=== PATIENT | female | born 1950 | race Caucasian/White ===

== ENCOUNTER 2018-01-14 05:15 | Emergency (ER) | payer MEDICARE, SELFPAY ==
[2018-01-14 05:16] VITALS: BP 181/78; PULSE 78; RESP 18; TEMP 36.6; O2SAT 100; BMI 39.3
--- NOTE | 2018-01-14 05:26 | CT_ITS ---
STUDY: CT SOFT TISSUE NECK WITH CONTRAST REASON FOR EXAM: Female, 67 years old. Throat pain with cough. RADIATION DOSAGE (If Supplied By Facility): CTDIvol = ( 19.90 ) mGy, DLP = ( 561.56 ) mGycm TECHNIQUE: The patient was scanned in a multi-detector CT scanner. High resolution transaxial imaging was performed following intravenous administration of 75 ml of Isovue 370 contrast material. Sagittal and coronal images were reconstructed. Individualized dose optimization techniques were used for this CT. COMPARISON: None. FINDINGS: Normal bilateral parotid glands. Normal bilateral site planner spaces. Normal bilateral parapharyngeal spaces. Normal bilateral carotid spaces. Normal bilateral sublingual and submandibular glands and spaces. Normal visualized nasopharynx. Normal retropharyngeal space. Normal perivertebral space. Normal visualized bilateral faucial tonsils. There is again beam hardening and streak artifact arising from patient's dental amalgam obscuring the anatomy of the oral cavity The visualized cervical lymph nodes (levels I-) are within normal size limits, and maintain normal morphology. There is no demonstrated solid or cystic mass lesion. There is no abnormal contrast enhancement. Normal epiglottis, bilateral vallecula and hypopharynx. The pre-epiglottic and paraglottic adipose spaces are normal. Normal visualized bilateral piriform sinuses, aryepiglottic folds, vocal cords, and arytenoid-cricoid articulations. Normal subglottic trachea. Patient appears of had a thyroidectomy. Surgical clips are visible in the previous location of the thyroid. There is heterogeneous groundglass attenuation in the lung apices possibly representing mild pulmonary congestion. Appears to be a small amount of fluid in the sphenoid sinuses. Normal visualized cervical spine. CT/Soft Tissue Neck WITH Contrast IMPRESSION: 1. Status post thyroidectomy. 2. Possible acute sphenoid sinus disease. 3. No CT evidence for abscess. Electronically Signed: Angela Yuen MD at 6:41 EDT , Service support ,
[2018-01-14] MEDS: 0.9% Normal Saline 1,000 ML 999 ML IV (05:36)
[2018-01-14 05:49] LABS: Erythrocyte Sedimentation Rate 9 mm/hr (0-30)
[2018-01-14 05:51] LABS: Absolute Lymphocyte Count 2.42 X10^3/ul (0.83-4.51); Absolute Neutrophil Count 5.3 X10^3/uL (2.0-7.7); Basophil# 0.04 X10^3/uL; Basophil% 0.5 % (0-1); Eosinophils% 4.6 % (0-5); Hematocrit 37.9 % (37-47); Hemoglobin 12.2 g/dl (12.0-15.0); Lymphocyte # 2.42 X10^3/ul (4.0); Lymphocyte % 27.6 % (19-41); Mean Corp Hgb Conc 32.2 g/gl (32-36); Mean Corpuscular Hgb 27.6 pg (27.0-32.0); Mean Corpuscular Volume 85.7 fL (81-99); Mean Platelet Vol. 9.3 fl (6.2-12.0); Monocyte% 6.8 % (0-10); Neutrophil % 60.3 % (47-70); Platelet Count 338 K/mm3 (150-450); RBC Distribution Width CV 14.7 % (11.6-14.6); RBC Distribution Width SD 46.2 fl (35.1-43.9); Red Blood Count 4.42 M/mm3 (4.2-5.4); White Blood Count 8.8 K/mm3 (4.4-11.0)
[2018-01-14 05:52] LABS: POSITIVE COUNT NO; POSITIVE DIFFERENTIAL NO; POSITIVE MORPHOLOGY NO
[2018-01-14 06:07] LABS: Anion Gap 9 (5-15); BUN 13 mg/dL (7-18); BUN/Creat Ratio 14.3 RATIO (10-20); Calcium,Total 8.9 mg/dL (8.5-10.1); Chloride 106 mmol/L (98-107); Creatinine, Serum 0.91 mg/dL (0.55-1.02); EST Glomerular Filtration Rate 65 mL/min (>60); Est Glom Filt Rate - Afr Amer 79 mL/min (>60); Estimated Creatinine Clearance 41.91 ml/min; Glucose 119 mg/dL (74-106); Potassium 3.7 mmol/L (3.5-5.1); Sodium Level 142 mmol/L (136-145)
--- NOTE | 2018-01-14 06:47 | ED.VISSUMM ---
- ER Visit Summary Date of Service: 01/14/18 Chief Complaint: [] Difficulty swallowing History of Present Illness: The patient is a 67 F [] complaining of difficulty swallowing and one episode of hemoptysis. Patient reports previous history of immunizations as a child. Denies chest pain or shortness of breath. Reports mild difficulty with swallowing fluids. She reports the discomfort is deeper down the throat. No other complaints at this time. Physical Examination: [] Afebrile, vital signs stable. 67-year-old female in no acute distress. HEENT reveals moist mucous membranes without signs of obvious oropharyngeal erythema or exudate. Cardiovascular exam is regular rate and rhythm. Lungs clear to auscultation. Abdomen is soft and nontender. Test Results: [] CT scan of the neck with IV contrast/soft tissue was negative. Emergency Department Course and Treatment: [] Patient's initial presentation was concerning for epiglottitis. This was ruled out to be a CT scan of the soft tissue neck with IV contrast. Patient was given intravenous fluids and Decadron. On serial exam she had improvement of symptoms and was amenable to discharge and close follow-up. Treatment Plan: [] Follow-up with PCP. Disposition: [] Discharge, stable. Impression: [] Pharyngitis This note was generated with [employer] dictation software. It may contain incorrect words, spelling, and punctuation that were not noted in review of the chart prior to signing ED Disposition - Plan for ED Patient: Chief Complaint: Sore Throat Referrals: Kvng Fung MD [Primary Care Provider] -
--- NOTE | 2018-01-14 06:50 | ED.DEP ---
ED Disposition - Plan for ED Patient: Disposition: Home or Assisted Living Chief Complaint: Sore Throat Instructions: ED Pharyngitis Viral Referrals: Kvng Fung MD [Primary Care Provider] -
[2018-01-14 07:01] VITALS: BP 143/66; PULSE 69; RESP 16; O2SAT 98
== END 2018-01-14 07:02 | disposition home or self-care (01) ==
PROVIDERS: Emergency Provider Emergency Medicine; Family Provider Family Medicine; PCP Family Medicine
DX: J02.9 Acute pharyngitis, unspecified (principal)
CPT/HCPCS: 70491; 80048; 85025; 85652; 99285; J7030; Q9967; A4216

== ENCOUNTER → 2018-03-19 07:29 | Outpatient (CLI) | payer MEDICARE, SELFPAY ==
[2018-03-19 10:44] LABS: Microalbumin,Random Urine 11.5 mg/L (NO RANGE EST.); Microalbumin:Creatinine Ratio 7.1 mg/g CRE (<30 mg/g CRE)
[2018-03-19 10:50] LABS: AST(SGOT) 24 U/L (15-37); Alanine Aminotransfer ALT/SGPT 36 U/L (13-56); Albumin, Serum 3.6 g/dL (3.2-5.0); Alkaline Phosphatase 103 U/L (45-117); Anion Gap 9 (5-15); BUN 13 mg/dL (7-18); Bilirubin, Direct 0.11 mg/dL (0.00-0.30); Calcium,Total 8.5 mg/dL (8.5-10.1); Chloride 101 mmol/L (98-107); Cholesterol 165 mg/dL (200); Creatinine, Serum 0.93 mg/dL (0.55-1.02); EST Glomerular Filtration Rate 63 mL/min (>60); Est Glom Filt Rate - Afr Amer 77 mL/min (>60); Free T3 2.3 pg/mL (2.18-3.98); Globulin 4.1 g/dL (2.2-4.2); Glucose 128 mg/dL (74-106); High Density Lipoprotein 46 mg/dL; Potassium 3.8 mmol/L (3.5-5.1); Protein, Total 7.7 g/dL (6.4-8.2); Sodium Level 136 mmol/L (136-145); T4 Total, Thyroxin 12.7 ug/dL (4.8-13.9); Thyroid Stim Hormone (TSH) 0.98 uIU/mL (0.358-3.74); Triglycerides 97 mg/dL; Very Low Density Lipoprotein 19 mg/dL (5-40)
== END ==
PROVIDERS: Family Provider Family Medicine; PCP Family Medicine; Visit Provider Family Medicine
DX: E03.9 Hypothyroidism, unspecified (principal); E11.9 Type 2 diabetes mellitus without complications
CPT/HCPCS: 36415; 80048; 80061; 80076; 82043; 82570; 84436; 84443; 84481

== ENCOUNTER 2018-05-05 10:13 | Emergency (ER) | payer MEDICARE, SELFPAY ==
[2018-05-05 10:14] VITALS: BP 155/90; PULSE 74; PULSE 78; RESP 26; RESP 30; TEMP 36.4; O2SAT 100; BMI 38.0
--- NOTE | 2018-05-05 10:35 | ED.DCSUM_ITS ---
- ER Visit Summary Date of Service: 05/05/18 Chief Complaint: Abdominal pain and rectal bleeding History of Present Illness: The patient is a 67 F who presents with abdominal pain and rectal bleeding that began last night but became worse today. Patient states pain is over her lower abdomen and radiates into her back. Patient admits to some nausea but denies any vomiting. Patient states she was having large amount of bright red rectal bleeding last night. Patient states that it is starting to slow down but she is still having bright red rectal bleeding today. Patient denies any urinary complaints. Patient denies any fevers but admits to subjective chills last night. Patient also admits to some shortness of breath. Physical Examination: Vital signs are stable. Patient is afebrile. Patient is in no acute distress. Oral mucosa is pink and moist. Neck is supple. There is no JVD noted. Heart was regular rate and rhythm. Lungs are clear and equal bilaterally. There is good respiratory effort noted. Abdomen is soft. There is some left lower quadrant tenderness. There is no rebound or guarding noted. There are no masses palpated. Cranial nerves II through XII are intact. There are no focal motor or sensory deficits noted. The remaining physical exam is within normal limits. Test Results: CBC showed a stable hemoglobin of 12.4. Comprehensive metabolic profile was essentially within normal limits. CT scan of the abdomen and pelvis shows evidence of colitis. There is no abscess or perforation. There is no other acute intra-abdominal abnormality. Emergency Department Course and Treatment: Orthostatic vital signs were obtained and were within normal limits. Patient was given IV fluids, morphine, and Zofran. Patient felt better on reevaluation. Patient was given a prescription for Augmentin. Patient was instructed to follow-up with her primary care physician in 2-5 days. Patient and her understood and were agreeable with the plan. All questions were answered. Disposition: Discharged home Impression: Colitis This note was generated with [employer] dictation software. It may contain incorrect words, spelling, and punctuation that were not noted in review of the chart prior to signing ED Disposition - Plan for ED Patient: Disposition: Home or Assisted Living Chief Complaint: GI Bleed Diagnosis: Colitis Instructions: ED Gastroenteritis Bacterial Prescriptions: Amox/Clavulanate Tablet [Augmentin Tablet] 875 mg PO Q12H #20 tab Referrals: Kvng Fung MD [Primary Care Provider] -
[2018-05-05 10:46] VITALS: BP 150/80; BP 160/78; BP 167/71; PULSE 61; PULSE 75; PULSE 80
[2018-05-05 10:51] LABS: Absolute Lymphocyte Count 1.83 X10^3/ul (0.83-4.51); Absolute Neutrophil Count 13.1 X10^3/uL (2.0-7.7); Basophil# 0.04 X10^3/uL; Basophil% 0.2 % (0-1); Eosinophils% 2.4 % (0-5); Hematocrit 38.9 % (37-47); Hemoglobin 12.4 g/dl (12.0-15.0); Lymphocyte # 1.83 X10^3/ul (4.0); Lymphocyte % 11.2 % (19-41); Mean Corp Hgb Conc 31.9 g/gl (32-36); Mean Corpuscular Hgb 26.8 pg (27.0-32.0); Mean Platelet Vol. 9.8 fl (6.2-12.0); Monocyte# 0.93 X10^3/uL; Monocyte% 5.7 % (0-10); Neutrophil # 13.11 X10^3/uL (2.7-7.7); Neutrophil % 80.3 % (47-70); Platelet Count 361 K/mm3 (150-450); RBC Distribution Width SD 45.9 fl (35.1-43.9); Red Blood Count 4.63 M/mm3 (4.2-5.4); White Blood Count 16.3 K/mm3 (4.4-11.0)
[2018-05-05 10:52] LABS: POSITIVE COUNT NO; POSITIVE DIFFERENTIAL NO; POSITIVE MORPHOLOGY NO
[2018-05-05] MEDS: Ondansetron 4 MG/2 ML Vial IV (10:53)
[2018-05-05] MEDS: Morphine 4 MG/ML Syringe IV (10:53)
[2018-05-05] MEDS: 0.9% Normal Saline 1,000 ML 1000 ML IV (10:53)
[2018-05-05 10:55] LABS: Prothrombin Time (Protime)PT. 12.8 SECONDS (11.7-14.9)
[2018-05-05 10:56] LABS: Partial Thromboplast Time 24.6 Seconds (24.1-36.2)
[2018-05-05 11:05] LABS: ALB/GLOB Ratio 0.9 RATIO (0.9-2.4); AST(SGOT) 26 U/L (15-37); Alanine Aminotransfer ALT/SGPT 43 U/L (13-56); Albumin, Serum 3.5 g/dL (3.2-5.0); Alkaline Phosphatase 101 U/L (45-117); Anion Gap 11 (5-15); BUN 18 mg/dL (7-18); BUN/Creat Ratio 16.4 RATIO (10-20); Chloride 107 mmol/L (98-107); EST Glomerular Filtration Rate 52 mL/min (>60); Est Glom Filt Rate - Afr Amer 63 mL/min (>60); Estimated Creatinine Clearance 36.42 ml/min; Globulin 4.1 g/dL (2.2-4.2); Glucose 181 mg/dL (74-106); Lipase 83 U/L (73-393); Potassium 3.7 mmol/L (3.5-5.1); Protein, Total 7.6 g/dL (6.4-8.2); Sodium Level 140 mmol/L (136-145)
--- NOTE | 2018-05-05 11:06 | CT_ITS ---
STUDY: CT ABDOMEN AND PELVIS WITHOUT CONTRAST REASON FOR EXAM: Female, 67 years old. Lower abdominal pain. Bright red blood in the stool. RADIATION DOSAGE (If Supplied By Facility): CTDIvol = ( 23.44 ) mGy, DLP = ( 1089.37 ) mGycm TECHNIQUE: Transaxial images were obtained from the dome of the diaphragm to the symphysis pubis without oral contrast, and without intravenous contrast. Sagittal and coronal images were reconstructed. Individualized dose optimization techniques were used for this CT. COMPARISON: None. FINDINGS: The visualized lung bases are unremarkable. The visualized portions of the heart are within normal limits. There is hepatomegaly with diffuse hepatic enlargement. There is decreased attenuation of the liver consistent with steatosis. There are surgical clips in the gallbladder fossa consistent with a prior cholecystectomy. Normal spleen. Normal pancreas. Normal bilateral adrenal glands. Normal right kidney. Normal left kidney. No stones or hydronephrosis. There is a large hiatal hernia composed mostly of the fundus of the stomach. Normal small intestine. Wall thickening of the descending colon with adjacent edema, series 2 images 50/167 through 80/167. There are few diverticula in the sigmoid region. There are surgical clips in the region of the appendix consistent with a prior appendectomy. There is diffuse atherosclerotic calcification of the abdominal aorta, without a demonstrated aneurysm. Normal inferior vena cava. Normal retroperitoneum. Normal urinary bladder. There is absence of the uterus consistent with a prior hysterectomy. There is no free fluid in the abdomen or pelvis. Normal abdominal wall. There are degenerative changes of the spine. CT/Abdomen/Pelvis without Cont IMPRESSION: Colitis on the left could be infectious or inflammatory. No obstruction. Large hiatal hernia. Liver is enlarged with diffuse fatty infiltration. Electronically Signed: Evaristo Rivera MD at 11:40 EDT , Service support ,
[2018-05-05 12:24] VITALS: BP 152/80; PULSE 62; RESP 14; O2SAT 98
== END 2018-05-05 12:28 | disposition home or self-care (01) ==
PROVIDERS: Emergency Provider Emergency Medicine; Family Provider Family Medicine; PCP Family Medicine
DX: K52.9 Noninfective gastroenteritis and colitis, unspecified (principal); E11.9 Type 2 diabetes mellitus without complications; I10 Essential (primary) hypertension; E78.00 Pure hypercholesterolemia, unspecified; E03.9 Hypothyroidism, unspecified
CPT/HCPCS: 74176; 80053; 82274; 83690; 85025; 85610; 85730; 99285; J7030; A4216; J2405

== ENCOUNTER → 2018-09-30 07:33 | Outpatient (CLI) | payer MEDICARE, SELFPAY ==
[2018-09-30 10:40] LABS: Microalbumin,Random Urine 18.7 mg/L (NO RANGE EST.); Microalbumin:Creatinine Ratio 7.5 mg/g CRE (<30 mg/g CRE)
[2018-09-30 10:42] LABS: AST(SGOT) 31 U/L (15-37); Alanine Aminotransfer ALT/SGPT 47 U/L (13-56); Albumin, Serum 3.5 g/dL (3.2-5.0); Alkaline Phosphatase 97 U/L (45-117); Anion Gap 10 (5-15); BUN 13 mg/dL (7-18); BUN/Creat Ratio 13.4 RATIO (10-20); Bilirubin, Direct 0.11 mg/dL (0.00-0.30); Calcium,Total 8.8 mg/dL (8.5-10.1); Chloride 106 mmol/L (98-107); Cholesterol 162 mg/dL (200); Creatinine, Serum 0.97 mg/dL (0.55-1.02); EST Glomerular Filtration Rate 60 mL/min (>60); Est Glom Filt Rate - Afr Amer 73 mL/min (>60); Globulin 3.9 g/dL (2.2-4.2); Glucose 127 mg/dL (74-106); High Density Lipoprotein 42 mg/dL; Potassium 4.1 mmol/L (3.5-5.1); Protein, Total 7.4 g/dL (6.4-8.2); Sodium Level 142 mmol/L (136-145); Thyroid Stim Hormone (TSH) 0.35 uIU/mL (0.358-3.74); Triglycerides 132 mg/dL; Very Low Density Lipoprotein 26 mg/dL (5-40)
== END ==
PROVIDERS: Family Provider Family Medicine; PCP Family Medicine; Referring Provider Family Medicine; Visit Provider Family Medicine
DX: E03.9 Hypothyroidism, unspecified (principal); E11.9 Type 2 diabetes mellitus without complications
CPT/HCPCS: 36415; 80048; 80061; 80076; 82043; 82570; 84443

== ENCOUNTER → 2019-01-10 08:03 | Outpatient (CLI) | payer MEDICARE, SELFPAY ==
[2019-01-10 10:34] LABS: Anion Gap 4 (5-15); BUN 13 mg/dL (7-18); BUN/Creat Ratio 13.8 RATIO (10-20); Calcium,Total 9.1 mg/dL (8.5-10.1); Chloride 106 mmol/L (98-107); Cholesterol 154 mg/dL (200); Creatinine, Serum 0.94 mg/dL (0.55-1.02); EST Glomerular Filtration Rate 62 mL/min (>60); Est Glom Filt Rate - Afr Amer 75 mL/min (>60); Glucose 129 mg/dL (74-106); High Density Lipoprotein 43 mg/dL; Potassium 4.4 mmol/L (3.5-5.1); Sodium Level 140 mmol/L (136-145); Thyroid Stim Hormone (TSH) 1.59 uIU/mL (0.358-3.74); Triglycerides 175 mg/dL; Very Low Density Lipoprotein 35 mg/dL (5-40)
== END ==
PROVIDERS: Family Provider Family Medicine; PCP Family Medicine; Referring Provider Family Medicine; Visit Provider Family Medicine
DX: E11.9 Type 2 diabetes mellitus without complications (principal); E03.9 Hypothyroidism, unspecified
CPT/HCPCS: 36415; 80048; 80061; 84443

== ENCOUNTER 2019-03-10 06:37 | Day surgery (SDC) | payer MEDICARE, SELFPAY ==
[2019-03-10 06:51] VITALS: BP 154/65; PULSE 68; RESP 16; TEMP 36.6; O2SAT 100; BMI 37.2
[2019-03-10 07:11] LABS: Bedside Glucose 123 mg/dL (70-110)
--- NOTE | 2019-03-10 08:10 | RAD_ITS ---
STUDY: X-RAY - LEFT KNEE REASON FOR EXAM: Female, 68 years old. Left knee procedure TECHNIQUE: Intraprocedural fluoroscopy COMPARISON: None. FINDINGS: Intraprocedural fluoroscopy was performed. There is total knee arthroplasty. There is placement of RFA needles along the medial and lateral femoral epicondyles and proximal tibial diametaphysis. RAD/Knee 4 or More Views IMPRESSION: Intraoperative fluoroscopy, refer to operative report for full details.. Electronically Signed: Trina Gaines, at 17:44 EDT Tel , Service support ,
[2019-03-10] MEDS: Bupivacaine 0.25% 30 ML Vial (08:21)
[2019-03-10] MEDS: MethylPREDNISolone Acetate 80 MG/ML Vial (08:21)
[2019-03-10 08:40] VITALS: BP 150/80; BP 154/65; PULSE 73; RESP 16; TEMP 36.3; O2SAT 100
[2019-03-10 08:45] VITALS: BP 154/65; BP 162/82; PULSE 73; RESP 18; O2SAT 100
[2019-03-10 08:50] VITALS: BP 154/65; BP 165/86; PULSE 69; RESP 18; O2SAT 100
[2019-03-10 08:57] VITALS: BP 154/65; BP 164/88; PULSE 66; RESP 18; TEMP 36.4; O2SAT 100
--- NOTE | 2019-03-10 12:58 | PCM.OPRPT ---
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 Report of Operation Date of Procedure: 03/10/19 Pre-Operative Diagnosis: Chronic postoperative left knee pain Post-Operative Diagnosis: Chronic postoperative left knee pain Surgery/Procedure Performed:: Left knee radiofrequency ablation of superior medial/inferior medial/superior lateral genicular nerve under fluoroscopic guidance Description of Surgical Findings:: PROCEDURE: Left knee radiofrequency ablation of superior medial/inferior medial/superior lateral genicular nerve under fluoroscopic guidance PREOPERATIVE DIAGNOSES: Chronic postoperative left knee pain status post total knee arthroplasty POSTOPERATIVE DIAGNOSES: Tonic postoperative left knee pain status post total knee arthroplasty ANESTHESIA: MAC COMPLICATIONS: None BLOOD LOSS: Minimal PROCEDURE IN DETAIL: History and physical today was reviewed. Risks and benefits of procedure explained. The patient understood, agreed to the procedure and informed consent was obtained. IV inserted per routine protocol. The patient was taken to the operating room, placed in the Supine position with appropriate disposition underneath the left knee under direct visualization with fluoroscopy on AP as well as lateral view the left knee joint was visualized the skin and subcutaneous tissue anesthetized with approximately 15 cc of preservative-free 1% lidocaine using a 25-gauge regular needle at the vicinity of the superior medial superior lateral inferior medial genicular nerves under direct relation fluoroscopy using a 20-gauge 15 cm with a 10 mm curved active tip radiofrequency ablation needle starting on the left superior medial ending on the left inferior medial passing through the left superior lateral genicular nerves the needle passed through the skin the tip of the needle's maneuver and directed towards the diaphyseal junction of each corresponding nerve once the facility was at the diaphyseal junction hugging the bone and in contact with the bone after confirmation of AP oblique as well as lateral view l. After confirmation of AP, oblique as well as lateral view, impedance was then recorded at superior-medial genicular nerve 284 inferiomedial 251 superior lateral 382 ohm. Motor-evoked potential was then initiated to 1.5 volt without any motor response at each corresponding level. The probe was then removed intact and a total of 6 mL of preservative-free 1% lidocaine was injected in divided doses between those 3 levels after negative aspiration of blood with CSF. The radiofrequency ablation probe was then reinserted after confirmation of AP, oblique as well as lateral view. Radiofrequency ablation was then initiated to 80 degrees Celsius for 90 seconds at each level. Once concluded, the probe was then removed intact and a total of 6 mL of preservative-free 0.25% Marcaine with 40 mg Depo-Medrol was injected in divided doses between those 3 levels. The needles were then removed intact. The patient experienced no signs or symptoms of intravascular injection. The patient experienced no paraesthesia. The procedure was completed without any apparent difficulty, any complication. The patient appeared to tolerate well. Sensory as well as motor exam was unchanged from prior to procedure. ASSESSMENT AND PLAN: This is a 68-year-old female with left knee chronic postoperative knee pain status post total knee arthroplasty status post left knee radiofrequency ablation of the superior medial/inferior medial/superior lateral genicular nerve under fluoroscopic guidance. The patient will continue her current medications. The patient will follow up in approximately 2 weeks for reevaluation.
== END 2019-03-10 09:30 | disposition home or self-care (01) ==
LOC: SDC 06:38 → AC 06:40
PROVIDERS: Family Provider Family Medicine; PCP Family Medicine; Referring Provider Anesthesiology Pain Medicine; Visit Provider Anesthesiology Pain Medicine
PROC: (CPT 64640; principal; 2019-03-10 08:05)
DX: M25.562 Pain in left knee (principal); G89.28 Other chronic postprocedural pain; I10 Essential (primary) hypertension; E11.9 Type 2 diabetes mellitus without complications; Z86.718 Personal history of other venous thrombosis and embolism; Z96.652 Presence of left artificial knee joint; D36.10 Benign neoplasm of peripheral nerves and autonomic nervous system, unspecified; Z79.891 Long term (current) use of opiate analgesic
CPT/HCPCS: 01991; 64640; 73564; 76000; 82962; J7120

== ENCOUNTER → 2019-08-28 11:09 | Outpatient (CLI) | payer MEDICARE, SELFPAY ==
--- NOTE | 2019-08-28 11:11 | BI_ITS ---
MAMMOGRAPHY - BILATERAL SCREENING REASON FOR EXAM: Female, 68 years old. Routine annual screening examination. PERTINENT HISTORY: Non-contributory. TECHNIQUE: Digital bilateral breast jeferson (3D mammographic acquisition) in the CC and MLO projections. 2-D mediolateral oblique (MLO) and craniocaudad (CC) views of both breasts were obtained. CAD: Full Field Digital Mammography with Computer Added Detection was performed. COMPARISON: Comparison is made with prior study dated July 17, 2017. FINDINGS: Breast Composition: The breasts are almost entirely fatty. There are no dominant masses or suspicious calcifications. Stable small benign-appearing left axillary lymph nodes. No other significant abnormalities are identified. There has been no significant change since the prior study. BI/SCREEN MAMM (CAD) W/JEFERSON BILAT IMPRESSION: Stable bilateral screening mammogram. Yearly follow-up mammogram recommended. (A) ASSESSMENT CATEGORY: BIRADS Category 2: Benign. A letter regarding these results will be sent to the patient by the facility within 30 days. Approximately 10% of breast cancers are not detected by mammography. A normal mammogram should not delay biopsy of a clinically suspicious abnormality. [id number] Electronically Signed: Cristobal Bruce, at 13:18 EST , Service support ,
== END ==
PROVIDERS: Family Provider Family Medicine; PCP Family Medicine; Referring Provider Nurse Practitioner Family; Visit Provider Nurse Practitioner Family
DX: Z12.31 Encounter for screening mammogram for malignant neoplasm of breast (principal)
CPT/HCPCS: 77063; 77067

== ENCOUNTER → 2019-10-10 07:09 | Outpatient (CLI) | payer MEDICARE, SELFPAY ==
[2019-10-10 10:30] LABS: Anion Gap 3 (5-15); BUN 16 mg/dL (7-18); BUN/Creat Ratio 16.6 RATIO (10-20); Calcium,Total 8.9 mg/dL (8.5-10.1); Chloride 108 mmol/L (98-107); Cholesterol 175 mg/dL (200); Creatinine, Serum 0.96 mg/dL (0.55-1.02); EST Glomerular Filtration Rate 61 mL/min (>60); Est Glom Filt Rate - Afr Amer 73 mL/min (>60); Free T3 1.9 pg/mL (2.18-3.98); Glucose 130 mg/dL (74-106); High Density Lipoprotein 46 mg/dL; Potassium 4.5 mmol/L (3.5-5.1); Sodium Level 140 mmol/L (136-145); Thyroid Stim Hormone (TSH) 3.94 uIU/mL (0.358-3.74); Triglycerides 188 mg/dL; Very Low Density Lipoprotein 38 mg/dL (5-40)
== END ==
PROVIDERS: PCP Family Medicine; Referring Provider Family Medicine; Visit Provider Family Medicine
DX: E11.9 Type 2 diabetes mellitus without complications (principal); E03.9 Hypothyroidism, unspecified
CPT/HCPCS: 36415; 80048; 80061; 84436; 84443; 84481

== ENCOUNTER → 2020-01-14 11:11 | Outpatient (CLI) | payer MEDICARE, SELFPAY ==
[2020-01-14 15:58] LABS: Free T3 2.4 pg/mL (2.18-3.98); Thyroid Stim Hormone (TSH) 0.18 uIU/mL (0.358-3.74)
== END ==
PROVIDERS: PCP Family Medicine; Referring Provider Family Medicine; Visit Provider Family Medicine
DX: E03.9 Hypothyroidism, unspecified (principal)
CPT/HCPCS: 36415; 84443; 84481

== ENCOUNTER → 2020-04-15 | Outpatient (CLI) | payer MEDICARE, SELFPAY ==
[2020-04-15 13:01] LABS: Anion Gap 3 (5-15); BUN 13 mg/dL (7-18); BUN/Creat Ratio 13.5 RATIO (10-20); Calcium,Total 9.1 mg/dL (8.5-10.1); Chloride 104 mmol/L (98-107); Creatinine, Serum 0.96 mg/dL (0.55-1.02); EST Glomerular Filtration Rate 61 mL/min (>60); Est Glom Filt Rate - Afr Amer 73 mL/min (>60); Free T3 2.2 pg/mL (2.18-3.98); Glucose 100 mg/dL (74-106); Potassium 4.4 mmol/L (3.5-5.1); Sodium Level 137 mmol/L (136-145); Thyroid Stim Hormone (TSH) 0.61 uIU/mL (0.358-3.74)
== END | disposition home or self-care (01) ==
LOC: MTLAB 11:07
PROVIDERS: PCP Family Medicine; Referring Provider Family Medicine; Visit Provider Family Medicine
DX: E03.9 Hypothyroidism, unspecified (principal); I10 Essential (primary) hypertension
CPT/HCPCS: 36415; 80048; 84436; 84443; 84481

== ENCOUNTER 2020-07-26 09:11 | Day surgery (SDC) | payer MEDICARE, SELFPAY ==
[2020-07-26] VITALS (10 sets, daily range): BP systolic 125–158; BP diastolic 71–76; PULSE 63–75; RESP 14–16; TEMP 36.1–37; O2SAT 95–100; BMI 39.3
[2020-07-26] MEDS: Bacitracin 500 UNITS/GM PACKET (09:56)
--- NOTE | 2020-07-26 10:40 | RAD_ITS ---
PROCEDURE: Spinal cord stimulator insertion. DATE OF EXAMINATION: 07/26/2020. INDICATION: Female, 69 years old. Chronic back pain. FLUOROSCOPY TIME (if supplied): (2 minutes and 59 seconds.) minutes/seconds. 9 intraoperative images were obtained. Intraoperative imaging provided for spinal cord stimulator insertion. The tip of the electrodes is at the T8-T9 level. RAD/Lumbar Spine 2 or 3 Views IMPRESSION: Intraoperative imaging provided for spinal cord stimulator insertion. Electronically Signed: Cristobal Bruce, at 13:51 EST , Service support ,
[2020-07-26] MEDS: Lactated Ringers 1,000 ML 100 ML IV (11:09)
[2020-07-26] MEDS: Bupivacaine 0.25% 30 ML Vial (11:37)
[2020-07-26 14:30] LABS: Bedside Glucose 120 mg/dL (70-110)
--- NOTE | 2020-07-26 15:26 | PCM.OPRPT ---
Report of Operation Date of Procedure: 07/26/20 Description of Surgical Findings:: Pre-Operative Diagnosis: Lumbosacral radiculopathy, lumbosacral degenerative disc disease, lumbosacral spinal stenosis, complex regional pain syndrome of the left lower extremity Post-Operative Diagnosis: Lumbosacral radiculopathy, lumbosacral degenerative disc disease, lumbosacral spinal stenosis, complex regional pain syndrome of the left lower extremity Surgery/Procedure Performed:: 1. Spinal cord stimulator thoracolumbar leads placement x2 #2 spinal cord stimulator Medtronic intellus generator placement #3 spinal cord stimulator generator pocket creation at the left gluteal region #4 spinal cord stimulator simple programming, 5-intraoperative fluoroscopic interpretation Description of Surgical Findings:: PROCEDURES: 1. Spinal cord stimulator thoracolumbar leads placement x2 #2 spinal cord stimulator Medtronic intellus generator placement #3 spinal cord stimulator generator pocket creation at the left gluteal region #4 spinal cord stimulator simple programming 5-intraoperative fluoroscopic interpretation PREOPERATIVE DIAGNOSES: Lumbosacral radiculopathy, lumbosacral degenerative disc disease, lumbosacral spinal stenosis, complex regional pain syndrome of the left lower extremity POSTOPERATIVE DIAGNOSES: Lumbosacral radiculopathy, lumbosacral degenerative disc disease, lumbosacral spinal stenosis, flex regional pain syndrome of the left lower extremity ANESTHESIA: MAC COMPLICATIONS: None BLOOD LOSS: Minimal <25 CC Implanted device: Spinal cord stimulator lead [id number] lot number [id number], lead #2 lot number [id number], Medtronic spinal cord stimulator generator intellus serial number [id number] PROCEDURE IN DETAIL: History and physical today was reviewed. Risks and benefits of procedure explained. The patient understood, agreed to procedure, informed consent was obtained. IV inserted per routine protocol. The patient was taken to the operating room, placed in the prone position with a pillow positioned underneath the abdomen. A 2 g of Ancef IV piggyback was infused per anesthesia. The lower back and left gluteal area was prepped and draped in a sterile fashion using iodine x3. The C-arm was brought in position for AP view at the L1-2 vertebral bodies under direct visualization with fluoroscopy on a true AP view the L1-2 interlaminar space was identified skin and subcutaneous tissue and size approximately 10 cc of a mix of 2% lidocaine and 0.25% Marcaine using a 25-gauge regular needle followed by a 25-gauge 3 inch spinal needle towards the interlaminar space at L1-2, the skin and subcutaneous tissue were then incised using an 11-gauge blade was then taken down to the skin and subcutaneous tissue using a 14-gauge 3.5 inch Touhy needle provided by the [employer] kit the needle was passed through the skin towards the interlaminar space at L1-2 and a paramedian approach the needle was then advanced under direct visualization fluoroscopy towards the interlaminar space at L1-2 [id number] technique was then carried to air towards the interlaminar space at L1-2 once the tip of the needle was in the epidural space and loss of resistance was encountered to air and after confirmation of AP as well as oblique view of the spinal cord stimulator lead was then advanced under direct visualization fluoroscopy to be at the tip of the lead at mid T8 and the bottom of the lead around mid T10 after confirmation of AP as well as lateral view to confirm correct placement of the lead in the posterior compartment of the epidural space the previous procedure was then repeated to a level above at L2-3 interlaminar space the second lead was then inserted under direct visualization with fluoroscopy to be at the bottom of T8 and upper T11 area to the left of the previous lead, the leads were were then connected to the external neurostimulator and patient was then awakened to confirm satisfactory coverage of the painful area once satisfactory coverage was then achieved the stylette of each needle was then removed and the skin and subcutaneous tissue on to the left of the paramedian needles was then anesthetized with a total of 10 cc of the previous mixture of 0.25% Marcaine and 2% lidocaine using a 25-gauge regular needle the incision was then taken down through the skin and subcutaneous tissue towards the fascia making sure hemostasis was then maintained via cautery, the spinal cord stimulator leads were then passed through the above incision and secured using the a wing anchor and sutured down with a 2-0 silk to the fascia at that level the spinal cord stimulator leads were then tunneled via a tunneler provided by the [employer] kit towards the previously incised spinal cord stimulator battery at the left gluteal region skin and subcutaneous tissue were anesthetized with approximately 10 cc of a mix of 2% lidocaine and 0.25% Marcaine using a 25 gauge regular needle, skin and subcutaneous tissue was then taken down with the 11-gauge blade hemostasis was maintained with Bovie and direct pressure the incision was then taken down to the fascia and the battery was then secured with the 2-0 silk sutures that were the spinal cord stimulator leads the upper lead was then marked the new until spinal cord stimulator battery was then provided Via [employer] kit the battery was then reattached of the spinal cord stimulator make ensure that the top lead is attached to the top position from 0-7 electrodes and the bottom from 8-15 electrodes once impedance was then checked to be in the proper average range the intellus battery was then inserted into the pocket and impedance with when checked again the pocket was then inspected to confirm hemostasis in place, the intellus battery was then secured to the fascia using a 2-0 silk to the upper eyes of the battery confirming an upward writing of the intellus facing posterior, once complete confirmation the battery was then placed in the position and the the mid paramedian and the gluteal incisions were then closed primarily through a 3-0 Vicryl in a interrupted fashion followed by a 4-0 chromic to the skin, hemostasis was then maintained during the procedure the skin was then covered with a Steri-Strips and bacitracin patient was then returned into the supine position in a stable condition and returned to recovery in a stable condition patient experienced no signs or symptoms of intrathecal or intravascular injection patient experienced no paresthesia the procedure was completed without any apparent difficulty any complication the patient appeared to tolerate well, motor as well as sensory exam was unchanged from prior to the procedure. ESTIMATED BLOOD LOSS: Minimal less than 25 mL ASSESSMENT AND PLAN: This is a 69-year-old female with lumbosacral radiculopathy lumbosacral degenerative disc disease lumbosacral spinal stenosis, complex regional pain syndrome of the left lower extremity, status post 1. Spinal cord stimulator thoracolumbar leads placement x2 #2 spinal cord stimulator Medtronic intellus generator placement #3 spinal cord stimulator generator pocket creation at the left gluteal region #4 spinal cord stimulator simple programming, 5-intraoperative fluoroscopic interpretation patient will continue her current medications a prescription was provided to the patient for Keflex 500 mg 1 p.o. every 8 hours for 7 days, [place] 5-325 mg 1 p.o. every 4 hours as needed pain, 24 pills, postop instruction were given in writing to the patient as well as verbally and in writing to her . the patient will follow approximately 1 week for reevaluation.
== END 2020-07-26 15:24 | disposition home or self-care (01) ==
LOC: SDC 09:11 → AC 10:09
PROVIDERS: PCP Family Medicine; Referring Provider Anesthesiology Pain Medicine; Visit Provider Anesthesiology Pain Medicine
PROC: (CPT 63685; principal; 2020-07-26 10:25)
DX: M51.17 Intervertebral disc disorders with radiculopathy, lumbosacral region (principal); M48.07 Spinal stenosis, lumbosacral region; G90.522 Complex regional pain syndrome I of left lower limb; E03.9 Hypothyroidism, unspecified; E11.40 Type 2 diabetes mellitus with diabetic neuropathy, unspecified; I10 Essential (primary) hypertension; K21.9 Gastro-esophageal reflux disease without esophagitis; E78.00 Pure hypercholesterolemia, unspecified; Z86.718 Personal history of other venous thrombosis and embolism; Z79.84 Long term (current) use of oral hypoglycemic drugs; Z79.899 Other long term (current) drug therapy; Z79.891 Long term (current) use of opiate analgesic
CPT/HCPCS: 00300; 63650 ×2; 63685; 95971; 72100; 76000; 82962; 87426; C1776; C1778; C1820; C9803; J7120; J2405; J3490

== ENCOUNTER → 2020-10-18 10:14 | Outpatient (CLI) | payer MEDICARE, SELFPAY ==
[2020-07-26 10:36] VITALS: BMI 39.3
[2020-10-18 13:05] LABS: Anion Gap 5 (5-15); BUN 12 mg/dL (7-18); BUN/Creat Ratio 13.4 RATIO (10-20); Calcium,Total 8.4 mg/dL (8.5-10.1); Chloride 104 mmol/L (98-107); Cholesterol 167 mg/dL (200); EST Glomerular Filtration Rate 66 mL/min (>60); Est Glom Filt Rate - Afr Amer 80 mL/min (>60); Free T3 2.1 pg/mL (2.18-3.98); Glucose 145 mg/dL (74-106); High Density Lipoprotein 49 mg/dL; Sodium Level 138 mmol/L (136-145); T4 Free Direct 1.42 ng/dL (0.76-1.46); Thyroid Stim Hormone (TSH) 0.68 uIU/mL (0.358-3.74); Triglycerides 107 mg/dL; Very Low Density Lipoprotein 21 mg/dL (5-40)
== END ==
PROVIDERS: PCP Family Medicine; Referring Provider Family Medicine; Visit Provider Family Medicine
DX: E03.9 Hypothyroidism, unspecified (principal); E78.00 Pure hypercholesterolemia, unspecified
CPT/HCPCS: 36415; 80048; 80061; 84439; 84443; 84481

== ENCOUNTER → 2020-11-17 11:01 | Outpatient (CLI) | payer MEDICARE, SELFPAY ==
[2020-07-26 10:36] VITALS: BMI 39.3
--- NOTE | 2020-11-17 11:03 | RAD_ITS ---
STUDY: X-RAY - LUMBAR SPINE REASON FOR EXAM: Female, 70 years old. Lumbosacral spondylosis. TECHNIQUE: 5 view(s) of the lumbar spine were obtained. COMPARISON: 03/24/2014. FINDINGS: Normal lumbar lordosis. There is no substantial scoliosis. There is mild anterolisthesis of L4 on L5 unchanged from prior study. The alignment is otherwise preserved. There is multilevel endplate spondylosis of the lumbar vertebrae. Normal disc space heights. There is no evidence of acute fracture or loss of vertebral axial height. There is diffuse degenerative facet disease. There is no demonstrated spondylolysis of the pars interarticulares. There is atherosclerotic calcification of the abdominal aorta without a demonstrated aneurysm. There is now a generator for dorsal column stimulator in the soft tissues left back with its electrodes entering the spinal canal at the level T12-L1. Cholecystectomy clips are seen in the right upper quadrant. RAD/L/S Spine Min 4 Views IMPRESSION: 1. Degenerative change lumbar spine, stable when compared to the prior study. 2. Interval placement of a dorsal column stimulator. 3. No other change. Electronically Signed: Jp Miranda DO at 17:09 EST Tel [phone], Service support ,
== END ==
PROVIDERS: PCP Family Medicine; Referring Provider Nurse Practitioner Family; Visit Provider Nurse Practitioner Family
DX: M47.817 Spondylosis without myelopathy or radiculopathy, lumbosacral region (principal)
CPT/HCPCS: 72110

== ENCOUNTER → 2021-01-18 07:39 | Outpatient (CLI) | payer MEDICARE, SELFPAY ==
[2020-07-26 10:36] VITALS: BMI 39.3
[2021-01-18 17:06] LABS: Anion Gap 3 (5-15); BUN 13 mg/dL (7-18); BUN/Creat Ratio 14.7 RATIO (10-20); Calcium,Total 9.1 mg/dL (8.5-10.1); Chloride 105 mmol/L (98-107); Cholesterol 180 mg/dL (200); Creatinine, Serum 0.88 mg/dL (0.55-1.02); EST Glomerular Filtration Rate 67 mL/min (>60); Est Glom Filt Rate - Afr Amer 81 mL/min (>60); Glucose 153 mg/dL (74-106); High Density Lipoprotein 50 mg/dL; Potassium 4.3 mmol/L (3.5-5.1); Sodium Level 140 mmol/L (136-145); Triglycerides 164 mg/dL; Very Low Density Lipoprotein 33 mg/dL (5-40)
== END ==
PROVIDERS: PCP Family Medicine; Referring Provider Family Medicine; Visit Provider Family Medicine
DX: E11.9 Type 2 diabetes mellitus without complications (principal)
CPT/HCPCS: 36415; 80048; 80061

== ENCOUNTER → 2021-03-31 | Outpatient (CLI) | payer MEDICARE, SELFPAY ==
[2020-07-26 10:36] VITALS: BMI 39.3
== END | disposition home or self-care (01) ==
PROVIDERS: PCP Family Medicine; Visit Provider Family Medicine
DX: R30.0 Dysuria (principal)
CPT/HCPCS: 87077; 87086; 87088; 87186

== ENCOUNTER → 2021-07-08 11:39 | Outpatient (CLI) | payer MEDICARE, SELFPAY | PROVIDERS: PCP Family Medicine; Referring Provider Ophthalmology; Visit Provider Ophthalmology | DX: H02.411 Mechanical ptosis of right eyelid (principal) | CPT/HCPCS: 36415 ==

== ENCOUNTER → 2021-08-23 09:46 | Outpatient (CLI) | payer MEDICARE, SELFPAY ==
[2021-08-23 12:42] LABS: Hemoglobin A1c 8.8 % (3.8-5.6)
[2021-08-23 12:47] LABS: Anion Gap 7 (5-15); BUN 14 mg/dL (7-18); BUN/Creat Ratio 17.1 RATIO (10-20); Calcium,Total 9.1 mg/dL (8.5-10.1); Chloride 104 mmol/L (98-107); Cholesterol 163 mg/dL (200); Creatinine, Serum 0.82 mg/dL (0.55-1.02); EST Glomerular Filtration Rate 73 mL/min (>60); Est Glom Filt Rate - Afr Amer 88 mL/min (>60); Glucose 201 mg/dL (74-106); High Density Lipoprotein 45 mg/dL; Potassium 3.7 mmol/L (3.5-5.1); Sodium Level 139 mmol/L (136-145); T4 Free Direct 1.41 ng/dL (0.76-1.46); T4 Total, Thyroxin 14.4 ug/dL (4.8-13.9); Thyroid Stim Hormone (TSH) 0.52 uIU/mL (0.358-3.74); Triglycerides 126 mg/dL; Very Low Density Lipoprotein 25 mg/dL (5-40)
== END ==
PROVIDERS: PCP Family Medicine; Referring Provider Family Medicine; Visit Provider Family Medicine
DX: E03.9 Hypothyroidism, unspecified (principal); E11.9 Type 2 diabetes mellitus without complications
CPT/HCPCS: 36415; 80048; 80061; 83036; 84436; 84439; 84443

== ENCOUNTER → 2021-09-06 10:19 | Outpatient (CLI) | payer MEDICARE, SELFPAY ==
[2021-09-06 12:03] LABS: Hematocrit 30.6 % (37-47); Mean Corp Hgb Conc 29.4 g/dL (32-36); Mean Corpuscular Hgb 22.3 pg (27.0-32.0); Mean Corpuscular Volume 75.9 fL (81-99); Mean Platelet Vol. 10.5 fl (6.2-12.0); Platelet Count 354 K/mm3 (150-450); RBC Distribution Width CV 18.6 % (11.6-14.6); RBC Distribution Width SD 51.5 fl (35.1-43.9); Red Blood Count 4.03 M/mm3 (4.2-5.4); White Blood Count 7.9 K/mm3 (4.4-11.0)
== END ==
PROVIDERS: PCP Family Medicine; Referring Provider Psychiatry & Neurology Neurology; Visit Provider Psychiatry & Neurology Neurology
DX: G70.00 Myasthenia gravis without (acute) exacerbation (principal)
CPT/HCPCS: 36415; 85027

== ENCOUNTER 2021-09-29 13:46 | Outpatient (CLI) | payer MEDICARE, SELFPAY ==
--- NOTE | 2021-09-29 13:48 | CT_ITS ---
STUDY: CT CHEST WITH CONTRAST REASON FOR EXAM: Female, 70 years old. Myasthenia Gravis -- Evaluate for possible Thymoma RADIATION DOSAGE (If Supplied By Facility): CTDIvol = ( 16.62 ) mGy, DLP = ( 684.51 ) mGycm TECHNIQUE: Transaxial imaging was performed following intravenous administration of IV 100mL Isovue-370. Multiplanar coronal and sagittal images were reformatted. Individualized dose optimization techniques were used for this CT. COMPARISON: None. FINDINGS: The lungs are normal. There is no demonstrated pleural abnormality. There are calcifications of the coronary arteries. There are multiple small lymph nodes within the mediastinum, which are normal in size and morphology most compatible with reactive lymph hyperplasia. No evidence of thymoma. Normal hilar regions. Normal enhanced pulmonary arteries. There is atherosclerotic calcification of the aortic arch with tortuosity and elongation of the aortic arch and descending thoracic aorta. There are degenerative changes of the thoracic spine. Spinal cord stimulating device is visualized. Moderate sized hilar hernia. Diffuse fatty infiltration of the liver. The patient is status post cholecystectomy. CT/Chest WITH Contrast IMPRESSION: No evidence of thymoma. No acute abnormality is seen. Electronically Signed: Cristobal Bruce MD at 14:45 EST , Service support ,
[2021-09-29 14:10] LABS: CREATININE FINGERSTICK 0.8 mg/dL (0.55-1.02); EGFR FINGERSTICK > 60.0000 mL/min (>60)
== END 2021-09-29 23:59 | disposition short-term general hospital (02) ==
LOC: CT 13:47
PROVIDERS: PCP Family Medicine; Referring Provider Psychiatry & Neurology Neurology; Visit Provider Psychiatry & Neurology Neurology
DX: G70.00 Myasthenia gravis without (acute) exacerbation (principal)
CPT/HCPCS: 71260; Q9967

== ENCOUNTER 2021-10-12 17:09 | Outpatient (CLI) | payer MEDICARE, SELFPAY ==
[2021-10-12 18:10] LABS: Absolute Lymphocyte Count 2.49 X10^3/uL (0.83-4.51); Absolute Neutrophil Count 5.9 X10^3/uL (2.0-7.7); Basophil# 0.07 X10^3/uL; Basophil% 0.7 % (0-1); Eosinophil# 0.31 X10^3/uL; Eosinophils% 3.3 % (0-5); Hematocrit 32.9 % (37-47); Hemoglobin 9.5 g/dL (12.0-15.0); Lymphocyte # 2.49 X10^3/ul (0.83-4.51); Lymphocyte % 26.2 % (19-41); Mean Corp Hgb Conc 28.9 g/dL (32-36); Mean Corpuscular Hgb 21.5 pg (27.0-32.0); Mean Corpuscular Volume 74.4 fL (81-99); Mean Platelet Vol. 10.6 fl (6.2-12.0); Monocyte# 0.72 X10^3/uL; Monocyte% 7.6 % (0-10); NRBC Flagged by Analyzer 0 % (0-5); Neutrophil # 5.88 X10^3/uL (2.7-7.7); Neutrophil % 61.9 % (47-70); Platelet Count 358 K/mm3 (150-450); RBC Distribution Width CV 18.1 % (11.6-14.6); RBC Distribution Width SD 48.8 fl (35.1-43.9); Red Blood Count 4.42 M/mm3 (4.2-5.4); White Blood Count 9.5 K/mm3 (4.4-11.0)
[2021-10-12 18:32] LABS: Ferritin 12 ng/mL (8-252); Iron 21 ug/dL (50-170); Iron Binding Capacity,Total 418 ug/dL (250-450)
== END 2021-10-12 23:59 | disposition short-term general hospital (02) ==
LOC: MFPLAB 17:10
PROVIDERS: PCP Family Medicine; Referring Provider Family Medicine; Visit Provider Family Medicine
DX: D64.9 Anemia, unspecified (principal)
CPT/HCPCS: 36415; 82728; 83540; 83550; 85025

== ENCOUNTER 2021-11-24 11:08 | Outpatient (CLI) | payer MEDICARE, SELFPAY ==
[2021-11-24 13:13] LABS: Anion Gap 5 (5-15); BUN 10 mg/dL (7-18); BUN/Creat Ratio 11.5 RATIO (10-20); Calcium,Total 9.6 mg/dL (8.5-10.1); Chloride 106 mmol/L (98-107); Cholesterol 168 mg/dL (200); Creatinine, Serum 0.87 mg/dL (0.55-1.02); EST Glomerular Filtration Rate 68 mL/min (>60); Est Glom Filt Rate - Afr Amer 82 mL/min (>60); Glucose 196 mg/dL (74-106); High Density Lipoprotein 43 mg/dL; Potassium 3.9 mmol/L (3.5-5.1); Sodium Level 139 mmol/L (136-145); Thyroid Stim Hormone (TSH) 0.14 uIU/mL (0.358-3.74); Triglycerides 139 mg/dL; Very Low Density Lipoprotein 28 mg/dL (5-40)
== END 2021-11-24 23:59 | disposition home or self-care (01) ==
LOC: MFPLAB 11:11
PROVIDERS: PCP Family Medicine; Referring Provider Family Medicine; Visit Provider Family Medicine
DX: E03.9 Hypothyroidism, unspecified (principal); I10 Essential (primary) hypertension
CPT/HCPCS: 36415; 80048; 80061; 84443

== ENCOUNTER → 2022-02-08 | Outpatient (CLI) | payer MEDICARE, SELFPAY ==
--- NOTE | 2022-02-03 13:23 | PCM.HP.BLA ---
History and Physical History and Physical [facility] Patient Name: Yessica Olivas : 1950 From: ADORE PITTS PA-C DATE OF SURGERY: 02/22/2022 SCHEDULED PROCEDURE: right total knee arthroplasty HISTORY OF PRESENT ILLNESS: Preoperative history and physical exam was performed on February 03, 2022. This is a 71-year-old female who has had ongoing pain in the right knee since 2016. Her pain has been constant, aching, stabbing, sore. She states it has been progressing with pain over the past 3 years. Pain can reach a size 8/10 with activities. Pain is increased with going up and down stairs, sitting, walking. She has difficulty with activities of daily living including bathing, getting dressed, housework, shopping, and traveling in the car. She has tripped/stumbled due to the knee pain. She has pain going up and down stairs and feels unsafe getting in and out of the bathtub. She has tried rest, ice with no relief in symptoms. She has tried oral medications including Tylenol with minimal relief. She has also been on meloxicam and aspirin. She utilizes a cane and walker for the past 2 years. Denies previous surgery on the right knee. Patient has also attempted bracing with no relief. Patient has had previous left total knee arthroplasty by Dr. Esteves in 2013. Patient also reports that she has had 4 total surgeries on her left knee which also required skin grafting. Patient does have medical history pertinent for type 2 diabetes mellitus, hypertension, gastroesophageal reflux disease, thyroid disease, as well as DVT in the left leg after the total knee arthroplasty. She currently denies any chest pain, shortness of breath, fevers chills or recent infections. We are getting surgical clearance from the primary care physician Dr. Fung. After failing conservative measures and discussing treatment options with Dr. Adan Price, the patient does wish to proceed with a right total knee arthroplasty. REVIEW OF SYSTEMS: Review Of Systems: Constitutional: Reports weight change, but denies change in appetite and fever. Cardiovasular: Denies chest pain, heart murmur and irregular heartbeat. Respiratory: Reports cough and wheezing, but denies pneumonia, shortness of breath and tuberculosis. Gastrointestinal: Reports constipation, diarrhea, dysphagia and heartburn, but denies nausea, rectal itching, bloody stools and vomiting. Genitourinary: Reports incontinence. Musculoskeletal: Reports gait disturbance, leg swelling, trouble walking and weakness, but denies pain. Skin: Denies Raynaud's, history of shingles and tattoo. Neurological: Reports ambulatory dysfunction but denies dizziness, numbness/tingling and tremor. Psychiatric: Denies anxiety, insomnia and stress. Hematologic/Lymphatic: Reports anemia and past transfusion, but denies bleeding/bruising tendency. Reviewed, no changes. PAST MEDICAL HISTORY: Advance Care Plan: Other Directive, living will Effective Date: 01/09/2022 Comments: & son Other Directive, POA Effective Date: 01/09/2022 Comments: & children Past Medical History: Medical Problems: Acid Reflux, Arthritis, Diabetes, High Blood Pressure, Hypercholesterolemia, Thyroid Disease, DVT left leg after TKA Accidents: None Surgical Hx: Appendectomy - [facility] Gallbladder - [facility] Hernia Repair - [facility] Hysterectomy - [facility] Knee Replacement Lt - (2013) [facility] ` Anesthesia Complications: Nausea Assistive Devices: Brace, Cane, Glasses, Walker Reviewed and updated. SOCIAL HISTORY: Social History: Marital: .Occupation: Retired.Work Status: Retired.Hand Dominance: Right-handed. Personal Habits: Cigarette Use: Never Smoked Cigarettes.Smokeless Tobacco: Never Used Smokeless Tobacco.E-Cigarette Use: Never used.Alcohol: Occasionally.Drug Use: Denies Use.Enjoy Exercising: Never Exercises. Reviewed, no changes. VITALS: Ht: 60 Wt: 193lb 6oz Wt k.715 BMI: 37.8 BP: 130/72 Pulse: 66 Resp: 16 T: 97.5 T: 36.4C Pain Level: 2 O2SatR: 97 ALLERGIES: Levofloxacin Iodine IVP Dye Adhesives Soft Shell Fish MEDICATIONS: Vitamin D3 50 mcg (2000 Ut) 1 by mouth every day, Vitamin C 500 mg 1 PO daily, Pyridostigmine [place] 60 mg 1/2 tab PO in morning 1/2 tab AT night, Prilosec OTC 20 mg 1 PO daily, Pregabalin 50 mg 1 by mouth every day, Meloxicam 7.5 mg 1 by mouth twice a day, Losartan Potassium 50 mg 1 by mouth every day, Levothyroxine Sodium 100 mcg 1 by mouth every day, Iron 325 (65 Fe) MG take 1 tablet by mouth twice a day, Hydrochlorothiazide 12.5 mg 1 by mouth every day, Glimepiride 4 mg 1 by mouth every day, Folic Acid 1 mg 1 by mouth every day, Farxiga 5 mg 1 by mouth every day, Atorvastatin Calcium 10 mg 1 by mouth every day PRE-OP EXAM: General appearance:NORMAL Other: Eyes: Conjunctivae and lids: NORMAL Pupils: ERR Ears, Nose, Mouth, and Throat: NORMAL Other: Inspection of lips, teeth and gums: NORMAL Other: Neck: Examination of neck: no masses noted. Respiratory: Assessment of respiratory effort: NORMAL Other: Auscultation of lungs: clear to auscultation no wheezes, rhonchi or rales. Cardiovascular: Auscultation of heart: regular rate and rhythm, no murmurs, gallops or rubs. PHYSICAL EXAMINATION: Patient walks with an antalgic gait. Right knee is cool to touch without erythema or signs of infection. She does have moderate effusion. Patient does have a flexion contracture. Lacks 15 full extension to 90 extension of the right knee. Tenderness to palpation along the medial joint line. She does have varus alignment with MCL laxity with firm endpoint. IMAGING STUDIES: Previous x-rays of the right knee reveal varus alignment with medial joint space narrowing, subchondral sclerosis, osteophyte forming there was severe stage IV medial compartment osteoarthritis with bony erosions in the medial compartment. IMPRESSION: 1. Severe right knee osteoarthritis with varus alignment 2. Presence of left total knee arthroplasty 3. Gastroesophageal reflux disease 5. Type 2 diabetes mellitus 6. Hypertension 7. Hypercholesterolemia 8. Thyroid disease 9. History of DVT left leg PLAN: Dr. Adan Price did discuss and review with the patient all treatment options including surgical versus nonsurgical options. Patient does wish to proceed with the above-stated procedure. Potential risks, benefits, and complications of the procedure were discussed in detail including but not limited to , infection, nerve and blood vessel damage, persistent pain, numbness, tingling, paresthesias, blood clot, pulmonary embolism, and requirement for possible further surgery. The patient expressed full understanding and has no further questions for the doctor. Patient does agree to proceed with the above-stated procedure and has signed the surgery consent form. We discussed the current risks associated with COVID 19. This does include the risk of exposure while in the hospital. Patient was reassured local hospitals have low infection rates and are taking all necessary precautions to avoid exposure to patients. In addition, we discussed strategies that can be used to help limit exposure including those that limit the patient's time in the hospital. Also using strategies to limit the patient's need for continued inpatient services after being discharged from the hospital. Patient was notified that we will need to comply with any screening or testing the hospital wishes to perform or that surgery may be delayed for any positive results. This dictation was created using voice recognition software. Phonetic and/or grammatical errors may exist. ___ I have re-examined the patient. There are no clinical changes since date of exam. ___ See progress notes for changes. ___ Dictated on admission Date: Time: Signature:
--- NOTE | 2022-02-08 12:08 | EKG12_ITS ---
Test Reason : PRE OP Blood Pressure : / mmHG Vent. Rate : 068 BPM Atrial Rate : 068 BPM P-R Int : 166 ms QRS Dur : 072 ms QT Int : 382 ms P-R-T Axes : 028 028 066 degrees QTc Int : 406 ms Normal sinus rhythm Low voltage QRS Borderline ECG Confirmed by NAZ WANG, DEANNE ([id number]), associate entertainment editor ERIKA BRITO ([id number]) on 02/09/2022 12:50:23 PM Referred By: ALEX Confirmed By:DEANNE CHILDS MD
[2022-02-08 12:25] LABS: Absolute Lymphocyte Count 2.17 X10^3/uL (0.83-4.51); Absolute Neutrophil Count 5.9 X10^3/uL (2.0-7.7); Basophil# 0.09 X10^3/uL; Basophil% 0.9 % (0-1); Eosinophil# 0.59 X10^3/uL; Eosinophils% 6.2 % (0-5); Hematocrit 43.1 % (37-47); Hemoglobin 13.5 g/dL (12.0-15.0); Lymphocyte # 2.17 X10^3/ul (0.83-4.51); Lymphocyte % 22.9 % (19-41); Mean Corp Hgb Conc 31.3 g/dL (32-36); Mean Corpuscular Hgb 25.9 pg (27.0-32.0); Mean Corpuscular Volume 82.7 fL (81-99); Mean Platelet Vol. 11.1 fl (6.2-12.0); Monocyte# 0.68 X10^3/uL; Monocyte% 7.2 % (0-10); NRBC Flagged by Analyzer 0 % (0-5); Neutrophil # 5.93 X10^3/uL (2.7-7.7); Neutrophil % 62.5 % (47-70); Platelet Count 346 K/mm3 (150-450); RBC Distribution Width CV 16.9 % (11.6-14.6); RBC Distribution Width SD 50.5 fl (35.1-43.9); Red Blood Count 5.21 M/mm3 (4.2-5.4); White Blood Count 9.5 K/mm3 (4.4-11.0)
[2022-02-08 13:02] LABS: Hemoglobin A1c 11.7 % (3.8-5.6)
[2022-02-08 13:03] LABS: Albumin, Serum 3.4 g/dL (3.2-5.0); Anion Gap 6 (5-15); BUN 19 mg/dL (7-18); BUN/Creat Ratio 16.4 RATIO (10-20); Calcium,Total 9.2 mg/dL (8.5-10.1); Chloride 103 mmol/L (98-107); Creatinine, Serum 1.16 mg/dL (0.55-1.02); EST Glomerular Filtration Rate 49 mL/min (>60); Est Glom Filt Rate - Afr Amer 59 mL/min (>60); Glucose 430 mg/dL (74-106); Potassium 3.6 mmol/L (3.5-5.1); Sodium Level 136 mmol/L (136-145)
[2022-02-08 13:20] LABS: Magnesium 2.5 mg/dL (1.6-2.6); Thyroid Stim Hormone (TSH) 0.39 uIU/mL (0.358-3.74)
== END | disposition home or self-care (01) ==
LOC: PAT 03-08 13:45
PROVIDERS: Anesthesiology; PCP Family Medicine; Visit Provider Specialist
DX: Z01.810 Encounter for preprocedural cardiovascular examination (principal); Z01.812 Encounter for preprocedural laboratory examination
CPT/HCPCS: 36415; 80048; 82040; 83036; 83735; 84443; 85025; 87081; 93005

== ENCOUNTER → 2022-02-08 | Outpatient (CLI) | payer MEDICARE, SELFPAY ==
--- NOTE | 2022-02-08 12:10 | CT_ITS ---
STUDY: CT SCAN LOWER EXTREMITY RIGHT REASON FOR EXAM: Female, 71 years old. VARUS DEFORMITY, NOT ELSEWHERE CLASSIFIED, RT KNEE. [facility] protocol. RADIATION DOSAGE (If Supplied By Facility): CTDIvol = ( 18.76 ) mGy, DLP = ( 1290.12 ) mGycm. Individualized dose optimization techniques were used for this CT.? TECHNIQUE: Multiple axial tomographic images of the right hip joint, right knee joint and right ankle joint were obtained. Coronal and sagittal reconstructions obtained as well. COMPARISON: None. FINDINGS: Imaging of the right hip joint was obtained. No significant joint space narrowing is seen. Imaging of the knee joint was obtained. There is a marked degree of joint space narrowing and degenerative spur formation of the medial compartment of knee joint. Mild degree of osteoarthritis involving the patellofemoral joint. No significant joint effusion is seen. Small cystic changes are seen in the distal lateral femoral condyle and lateral tibial plateau. Imaging of the ankle joint was obtained. No significant abnormality is seen. CT/Extremity Lower without Contra IMPRESSION: Marked degree of joint space narrowing involving the medial compartment of the knee joint with degenerative spur formation. Electronically Signed: Cristobal Bruce MD at 13:47 EDT ,
== END | disposition home or self-care (01) ==
LOC: CT 12:04
PROVIDERS: PCP Family Medicine; Visit Provider Specialist
DX: M21.161 Varus deformity, not elsewhere classified, right knee (principal)
CPT/HCPCS: 73700

== ENCOUNTER → 2022-04-06 | Outpatient (CLI) | payer MEDICARE, SELFPAY ==
[2022-04-06 11:22] LABS: Absolute Neutrophil Count 6.7 X10^3/uL (2.0-7.7); Eosinophil# 0.38 X10^3/uL; Eosinophils% 3.9 % (0-5); Hematocrit 43.5 % (37-47); Hemoglobin 13.6 g/dL (12.0-15.0); Lymphocyte % 18.4 % (19-41); Mean Corp Hgb Conc 31.3 g/dL (32-36); Mean Corpuscular Hgb 26.1 pg (27.0-32.0); Mean Corpuscular Volume 83.5 fL (81-99); Mean Platelet Vol. 11.6 fl (6.2-12.0); Monocyte# 0.72 X10^3/uL; Monocyte% 7.4 % (0-10); NRBC Flagged by Analyzer 0 % (0-5); Neutrophil # 6.74 X10^3/uL (2.7-7.7); Neutrophil % 68.9 % (47-70); Platelet Count 345 K/mm3 (150-450); RBC Distribution Width CV 15.9 % (11.6-14.6); RBC Distribution Width SD 47.8 fl (35.1-43.9); Red Blood Count 5.21 M/mm3 (4.2-5.4); White Blood Count 9.8 K/mm3 (4.4-11.0)
[2022-04-06 11:54] LABS: Albumin, Serum 3.7 g/dL (3.2-5.0); Anion Gap 7 (5-15); BUN 15 mg/dL (7-18); BUN/Creat Ratio 18.8 RATIO (10-20); Calcium,Total 9.5 mg/dL (8.5-10.1); Chloride 101 mmol/L (98-107); EST Glomerular Filtration Rate 75 mL/min (>60); Est Glom Filt Rate - Afr Amer 91 mL/min (>60); Glucose 118 mg/dL (74-106); Potassium 3.7 mmol/L (3.5-5.1); Sodium Level 136 mmol/L (136-145)
== END | disposition home or self-care (01) ==
LOC: LAB 09:21
PROVIDERS: PCP Family Medicine; Referring Provider Specialist; Visit Provider Specialist
DX: Z01.812 Encounter for preprocedural laboratory examination (principal)
CPT/HCPCS: 36415; 80048; 82040; 85025

== ENCOUNTER → 2022-04-13 | Outpatient (CLI) | payer MEDICARE, SELFPAY ==
[2022-04-13 10:52] LABS: Hemoglobin A1c 7.8 % (3.8-5.6)
== END | disposition home or self-care (01) ==
LOC: LAB 08:42
PROVIDERS: PCP Family Medicine; Referring Provider Specialist; Visit Provider Specialist
DX: Z01.812 Encounter for preprocedural laboratory examination (principal); E11.9 Type 2 diabetes mellitus without complications
CPT/HCPCS: 36415; 83036

== ENCOUNTER → 2022-05-23 | Outpatient (CLI) | payer MEDICARE, SELFPAY ==
[2022-05-23 12:56] LABS: Hemoglobin A1c 6.6 % (3.8-5.6)
== END | disposition home or self-care (01) ==
LOC: MFPLAB 09:22
PROVIDERS: PCP Family Medicine; Visit Provider Family Medicine
DX: E11.9 Type 2 diabetes mellitus without complications (principal)
CPT/HCPCS: 36415; 83036

== ENCOUNTER 2022-06-07 14:12 | Observation (INO) | payer MEDICARE, SELFPAY ==
[2022-05-31 17:51] LABS: Absolute Lymphocyte Count 1.96 X10^3/uL (0.83-4.51); Absolute Neutrophil Count 5.3 X10^3/uL (2.0-7.7); Basophil# 0.09 X10^3/uL; Eosinophil# 0.64 X10^3/uL; Eosinophils% 7.4 % (0-5); Hematocrit 42.7 % (37-47); Hemoglobin 13.5 g/dL (12.0-15.0); Lymphocyte # 1.96 X10^3/ul (0.83-4.51); Lymphocyte % 22.7 % (19-41); Mean Corp Hgb Conc 31.6 g/dL (32-36); Mean Corpuscular Hgb 26.4 pg (27.0-32.0); Mean Corpuscular Volume 83.6 fL (81-99); Mean Platelet Vol. 11.9 fl (6.2-12.0); Monocyte# 0.63 X10^3/uL; Monocyte% 7.3 % (0-10); NRBC Flagged by Analyzer 0 % (0-5); Neutrophil % 61.3 % (47-70); Platelet Count 363 K/mm3 (150-450); RBC Distribution Width CV 16.4 % (11.6-14.6); RBC Distribution Width SD 49.8 fl (35.1-43.9); Red Blood Count 5.11 M/mm3 (4.2-5.4); White Blood Count 8.7 K/mm3 (4.4-11.0)
[2022-05-31 18:40] LABS: Albumin, Serum 3.6 g/dL (3.2-5.0); Anion Gap 9 (5-15); BUN 22 mg/dL (7-18); BUN/Creat Ratio 24.4 RATIO (10-20); Calcium,Total 10.3 mg/dL (8.5-10.1); Chloride 103 mmol/L (98-107); EST Glomerular Filtration Rate 65 mL/min (>60); Est Glom Filt Rate - Afr Amer 79 mL/min (>60); Glucose 93 mg/dL (74-106); Potassium 3.9 mmol/L (3.5-5.1); Sodium Level 139 mmol/L (136-145)
--- NOTE | 2022-05-31 22:21 | PCM.HP.BLA ---
History and Physical History and Physical [facility] Patient Name: Yessica Olivas : 1950 From:? ADORE PITTS PA-C? DATE OF SURGERY:? 06/07/2022 SCHEDULED PROCEDURE:? right total knee arthroplasty HISTORY OF PRESENT ILLNESS: Preoperative history and physical exam was performed on May 31, 2022.? This is a 71-year-old female who was initially scheduled to undergo right total knee arthroplasty in February 2022.? This had to be canceled at that time due to elevated A1c.? She has been followed by the primary care physician and her last A1c on May 24, 2022 was 6.6.? Patient continues to have ongoing pain with the right knee.? Pain is being constant, aching, stabbing.? Pain is increased with sitting, going up and down stairs and walking.? She has difficulty with activities of daily living including showering, getting dressed, housework and shopping.? She has stumbled secondary to the knee pain.? She has difficulty getting in and out of the car.? Patient states the pain can reach 8/10 with activities.? It is been progressively beginning worse over the past 3 years.? Patient has had a previous left total knee arthroplasty by Dr. Esteves in 2014.? She reports postoperatively she required for total surgeries which also required skin grafting.? She has had to utilize a cane and walker for the past 2 years.? There is been no previous surgery on the right knee.? She has medical history pertinent for type 2 diabetes mellitus, hypertension, gastroesophageal reflux disease, thyroid disease as well as previous DVT in the left leg after the total knee arthroplasty.? Currently she denies any chest pain, shortness of breath, fevers chills or recent infections.? We have obtain surgical clearance from her primary care physician Dr. Fung.? After failing conservative measures and discussing all treatment options with Dr. Adan Price, the patient does wish to proceed with a right total knee arthroplasty. REVIEW OF SYSTEMS: Review Of Systems: Constitutional: Reports weight change, but denies change in appetite and fever. Cardiovasular: Denies chest pain, heart murmur and irregular heartbeat. Respiratory: Reports cough and wheezing, but denies pneumonia, shortness of breath and tuberculosis. Gastrointestinal: Reports constipation, diarrhea, dysphagia and heartburn, but denies nausea, rectal itching, bloody stools and vomiting. Genitourinary: Reports incontinence. Musculoskeletal: Reports gait disturbance, leg swelling, trouble walking and weakness, but denies pain. Skin: Denies Raynaud's, history of shingles and tattoo. Neurological: Reports ambulatory dysfunction but denies dizziness, numbness/tingling and tremor. Psychiatric: Denies anxiety, insomnia and stress. Hematologic/Lymphatic: Reports anemia and past transfusion, but denies bleeding/bruising tendency. Reviewed, no changes. PAST MEDICAL HISTORY: Advance Care Plan: Other Directive, living will Effective Date: 01/09/2022 Comments: & son? Other Directive, POA Effective Date: 01/09/2022 Comments: & children Past Medical History: Medical Problems: Acid Reflux, Arthritis, Diabetes, High Blood Pressure, Hypercholesterolemia, Thyroid Disease, DVT left leg after TKA Accidents: None Surgical Hx: Appendectomy - [facility] Gallbladder - [facility] Hernia Repair - [facility] Hysterectomy - [facility] Knee Replacement Lt - (2013) [facility] ` Anesthesia Complications: Nausea Assistive Devices: Cane, Glasses, Walker Reviewed and updated. SOCIAL HISTORY: Social History: Marital: .Occupation: Retired.Work Status: Retired.Hand Dominance: Right-handed. Personal Habits:? Cigarette Use: Never Smoked Cigarettes.Smokeless Tobacco: Never Used Smokeless Tobacco.E-Cigarette Use: Never used.Alcohol: Occasionally.Drug Use: Denies Use.Enjoy Exercising: Never Exercises. Reviewed, no changes. VITALS: Ht: 59.7 Wt: 169lb Wt k.658 BMI: 33.3 BP: 122/68 Pulse: 60 Resp: 20 T: 98.2 T: 36.8C Pain Level: 5 O2SatR: 99 ALLERGIES: Levofloxacin Iodine IVP Dye Adhesives Soft Shell Fish? MEDICATIONS: Vitamin D3 50 mcg (2000 Ut) 1 by mouth every day, Vitamin C 500 mg 1 PO daily, Pyridostigmine [place] 60 mg 1/2 tab PO in morning 1/2 tab AT night, Prilosec OTC 20 mg 1 PO daily, Pregabalin 50 mg 1 by mouth every day, Meloxicam 7.5 mg 1 by mouth twice a day, Losartan Potassium 50 mg 1 by mouth every day, Levothyroxine Sodium 100 mcg 1 by mouth every day, Iron 325 (65 Fe) MG take 1 tablet by mouth twice a day, Hydrochlorothiazide 12.5 mg 1 by mouth every day, Glimepiride 4 mg 1 by mouth every day, Folic Acid 1 mg 1 by mouth every day, Farxiga 5 mg 1 by mouth every day, Atorvastatin Calcium 10 mg 1 by mouth every day PRE-OP EXAM:? General appearance:NORMAL? ? ? Other: Eyes: Conjunctivae and lids: NORMAL? Pupils: ERR Ears, Nose, Mouth, and Throat: NORMAL? Other: Inspection of lips, teeth and gums: NORMAL? ?Other: Neck: Examination of neck: no masses noted. Respiratory: Assessment of respiratory effort: NORMAL? ?Other: ?Auscultation of lungs: clear to auscultation no wheezes, rhonchi or rales. Cardiovascular:? Auscultation of heart: regular rate and rhythm, no murmurs, gallops or rubs. PHYSICAL EXAMINATION: Patient walks with an antalgic gait.? Right knee is without erythema or signs of infection.? She does have moderate effusion.? patient continues to have tenderness to palpation along the medial joint line.? Patient does have a flexion contracture.? Lacks 15 full extension to 90 extension of the right knee.? She does have varus alignment with MCL laxity with firm endpoint. IMAGING STUDIES: Previous x-rays of the right knee reveal varus alignment with medial joint space narrowing, subchondral sclerosis, osteophyte forming there was severe stage IV medial compartment osteoarthritis with bony erosions in the medial compartment. IMPRESSION: 1.? Severe right knee osteoarthritis with varus alignment? 2.? Presence of left total knee arthroplasty 3.? Gastroesophageal reflux disease 5.? Type 2 diabetes mellitus:? last A1c 6.6 6.? Hypertension 7.? Hypercholesterolemia 8.? Thyroid disease 9.? History of DVT left leg PLAN: Dr. Adan Price did discuss and review with the patient all treatment options including surgical versus nonsurgical options.? Patient does wish to proceed with the above-stated procedure.? Potential risks, benefits, and complications of the procedure were discussed in detail including but not limited to , infection, nerve and blood vessel damage, persistent pain, numbness, tingling, paresthesias, blood clot, pulmonary embolism, and requirement for possible further surgery.? The patient expressed full understanding and has no further questions for the doctor.? Patient does agree to proceed with the above-stated procedure and has signed the surgery consent form. We discussed the current risks associated with COVID 19.? This does include the risk of exposure while in the hospital.? Patient was reassured local hospitals have low infection rates and are taking all necessary precautions to avoid exposure to patients.? In addition, we discussed strategies that can be used to help limit exposure including those that limit the patient's time in the hospital.? Also using strategies to limit the patient's need for continued inpatient services after being discharged from the hospital.? Patient was notified that we will need to comply with any screening or testing the hospital wishes to perform or that surgery may be delayed for any positive results. This dictation was created using voice recognition software. Phonetic and/or grammatical errors may exist. ___? I have re-examined the patient.? There are no clinical changes since date of exam. ___? See progress notes for changes. ___? Dictated on admission Date: ? ? ?Time: Signature:
[2022-06-01 13:58] LABS: Magnesium 2.1 mg/dL (1.6-2.6); Thyroid Stim Hormone (TSH) 0.47 uIU/mL (0.358-3.74)
[2022-06-07] VITALS (13 sets, daily range): BP systolic 112–149; BP diastolic 48–65; PULSE 59–83; RESP 12–28; TEMP 36.3–36.8; O2SAT 94–100; BMI 33.8
[2022-06-07] MEDS: Gabapentin 600 MG Tablet PO (09:45)
[2022-06-07] MEDS: Acetaminophen 500 MG Tablet 1000 MG PO ×2 (09:50→21:22)
[2022-06-07] MEDS: Celecoxib 200 MG Capsule 400 MG PO (09:50)
[2022-06-07] MEDS: Lactated Ringers 1,000 ML 75 ML IV ×2 (09:53→21:18)
[2022-06-07] MEDS: Lactated Ringers 1,000 ML 999 ML IV ×2 (09:53→11:45)
[2022-06-07 10:16] LABS: Bedside Glucose 235 mg/dL (74-106)
[2022-06-07] MEDS: Insulin Lispro 100 UNIT/ML INSULN.PEN SC ×3 (10:23→21:23)
[2022-06-07] MEDS: Cefazolin 2 GM in 0.9% Normal Saline 100 ML IV (11:18)
[2022-06-07] MEDS: dexAMETHasone 10 MG/ML Vial IV (11:26)
[2022-06-07] MEDS: TXA 1000mg in NS100 100ml (IVPB at Incision) 660 MG IV (11:27)
[2022-06-07] MEDS: Lactated Ringers 1,000 ML 125 ML IV (11:45)
--- NOTE | 2022-06-07 11:45 | FEM_PTH ---
PATIENT: LEOBARDO VALDEZ LOC: [facility] U#:[id number] AGE/SX: 71/F ROOM: SD316 RE06/07/[address]: Dr. Adan Price MD : 1950 BED: 1 DIS: 06/08/2022 SPEC #: [id number] RECD: 06/08/22 06:37 STATUS: CONY SOTO #: [id number] ERIKA: 06/07/22 11:[address]: Adan Price DEPT: SURGICAL PATHOLOGY RECD BY: Sadie Kemp ENTERED: 06/08/22 08:05 SP TYPE: FEM HEAD OTHR DR: DO Dr. Kvng Son MD Tissues: Femoral region, NOS Procedures: Decalcification bone/plaque Surgery Specimen Level IV HEADER OPERATION: ERAS, total knee replacement robotic arm assist PRE-OP DIAGNOSIS: Severe right knee osteoarthritis with varus alignment TISSUE SUBMITTED: Right tibial and femoral bone MICROSCOPIC DIAGNOSIS Right tibial and femoral bone, total knee replacement/resection: Pieces of bone with degenerative osteoarthritic changes. KATHIE:graham 06/14/2022 MICROSCOPIC DESCRIPTION Slides are reviewed. GROSS DESCRIPTION Received is one container designated right tibial and femoral bone. The specimen consists of multiple fragments of hough-yellow bone measuring in aggregate 10 x 10 x 3 cm. No soft tissue is identified. A number of bony fragments contain articular surfaces consistent with tibial plateau and femoral condyle and displaying prominent osteophyte formation, eburnation and bone erosion. [place] sections are submitted in one cassette after decalcification. / KATHIE:graham 06/08/2022 TC:5 CPT: 89749, 81738
--- NOTE | 2022-06-07 12:12 | OP.PCM_ITS ---
Report of Operation Date of Procedure: 06/07/22 Pre-Operative Diagnosis: Right knee primary osteoarthritis Post-Operative Diagnosis: Right knee primary osteoarthritis Surgery/Procedure Performed:: Right minimally invasive robotic total knee replacement Description of Surgical Findings:: Stable knee with good patella tracking Surgeon: Adan Price marketing strategy manager: Milton Warren Type of Anesthesia: Spinal Anesthesiologist: Parveen Collier Special Medications: 2 g Ancef, 1 g TXA at incision, 1 g TXA closure, 10 mg Decadron, joint cocktail (5 mg Duramorph, 30 mL of 0.5% Ropivicaine, 1000 units of epinephrine, 30 mg of Toradol) Specimen's removed: Bony cuts Estimated Blood Loss (mL): 25 Fluids Replaced: 1100 mL crystalloid Description of Procedure: Implants used: 1. Anderson size 3 triathlon cruciate retaining distal femoral press-fit component 2. Anderson size 3 press-fit tritanium tibial baseplate 3. Kassandra X3 9 mm CS polyethylene 4. Kassandra X3 32 mm asymmetric patella Brief history operative indications: 71-year-old female with history of right knee osteoarthritis with radiographic findings with loss of joint space, osteophyte formation and subchondral sclerosis. Failed conservative measures as mentioned in the H&P. Discussion of total knee arthroplasty as well as risk and benefits were discussed the patient including but not limited to blood loss, DVTs, PEs, neurovascular damage, general risk of anesthesia including loss of life, and stiffness or instability were discussed with patient. Patient demonstrated understanding and was able to sign informed consent. Procedure: On the date of procedure patient's right lower extremity was marked in the preoperative area. The patient was then taken back to the operating room where the patient was placed on the table in the supine position. All bony prominences were identified a well-padded. Anesthesia assumed control of the C-spine and airway and remained controlled throughout the remainder of the procedure. A tourniquet was placed on the right upper thigh and the leg was prepped in a sterile fashion. The surgeon then scrubbed at this time .Upon reentering the room right lower extremity was draped in a standard orthopedic fashion. A timeout was then called and everyone agreed upon the side, the site, the procedure to be performed, patient's identity and antibiotics given. Esmarch bandage was used to exsanguinate the extremity and the tourniquet was placed up to 250 mmHg with the knee in flexion. A midline skin incision was made and sharp dissection was taken down through skin subcutaneous tissue and fat. The standard medial parapatellar incision was made and the patella was subluxed laterally. An Appropriate deep MCL release was done and the fat pad was resected. Our attention was then directed to the patella. The patella was everted and a flat resection was made. The knee was then flexed up in 2 femoral pins were placed inside the incision and 2 tibial pins were placed outside the incision in the medial tibia bicortically. Once this was completed the 2 checkpoints in the femur and tibia were placed. Knee was then flexed up and the bony landmarks were registered. Once this was completed knee was taken through range of motion and manually stressed allowing us to a plan for an appropriate tibial cut. The robotic arm was brought into the field sterilely and checkpoint and saw were registered. Based on the patient's deformity the tibial cut was made in 2 degrees of varus. At this time the tensioner was then placed in the joint and ligament tension was checked at 90 degrees and full extension. Based on the patient's ligamentous tension appropriate adjustments were made to the operative plan and ligament releases were done. Once we were happy with our operative plan with balanced flexion and extension gaps our attention was directed to the femur. The robot was brought into the field sterilely and registered. Posterior condylar cuts, anterior chamfer cuts and anterior cuts were appropriately made for a size 3 femur. When these were completed the saws were switched out in the distal femoral and posterior chamfer cuts were made. Protecting the soft tissue throughout this time. A size 3 tibial base plate was selected. the knee was flexed to 90 degrees and the soft tissues and posterior osteophytes were removed from the joint. 40 cc of the periarticular injection was injected into the posterior medial corner of the joint. The appropriate trials were then placed on the femur and tibia. A trial polyethylene was trialed to ensure proper balancing and stability of the knee. The appropriate tibial internal rotation was then marked with a bovie. Our attention was then directed to the patella. The lug holes were drilled and the patella trial was placed. Patellar tracking was checked and deemed appropriate. Once we were happy lug holes were drilled for the femur and trial components were removed. the tibia was subluxed and pinned into place and the keel was punc hed and drilled appropriately. Final components were verified and opened, and cement was mixed in a vacuum. ARDACO Simplex cement was used. The wound was copiously irrigated with normal saline. When the cement was ready the components were impacted into place starting with the tibia, femur and finally cementing the patella. The trial poly component was placed and the knee was placed in full extension. All excess cement was removed in the process. Once the cement had cured the tracking, alignment and balance were verified and a size 9 mm CS polyethylene component was placed. Once the final components were placed a 3-minute dilute Betadine lavage was performed followed by an Irrisept lavage was performed and the wound was copiously irrigated with normal saline solution and the periarticular injection was given. The wound was closed in a layer josue fashion using #1 vicryl interrupted sutures for the arthrotomy, 2-0 interrupted Vicryl suture for the subcuticular layer and saundra for final skin closure. A sterile compressive dressing was then placed. The patient was then awakened from anesthesia, transferred to the rherndon and transferred to the PACU for recovery. Post op plan DVT ppx: Xarelto for DVT prophylaxis due to previous DVT, thigh high compression stockings Follow up: in office in 2 weeks for wound check PT: to start POD #0 at hospital, outpatient PT should be arranged. My physician assistant gm of content & delivery was a vital part of this case. He was important in appropriate retraction during the case, and protection of soft tissues during bony cuts. His intimate knowledge of the case and my steps aided in safe and expedient completion of the procedure as well as appropriate position of the leg during the case. He was also vital in assisting with closure under my direct supervision. Due to the complexity of this case robotic arm was used to assist in the surgery to improve accuracy and clinical outcomes. Complications No intraoperative complications Admit VTE Documentation VTE Present on Admission: No VTE Mechan Device Prophylaxis: SCD's and Thigh High CONOR Hose VTE Pharm Prophylaxis ordered?: Yes
[2022-06-07] MEDS: TXA 1000mg in NS100 100ml (IVPB at Closure) 660 MG IV (12:17)
--- NOTE | 2022-06-07 13:15 | RAD_ITS ---
STUDY: X-RAY - RIGHT KNEE REASON FOR EXAM: Female, 71 years old. Post op -- AP and Lateral xray of operative knee in PACU TECHNIQUE: 2 view(s) of the knee. COMPARISON: None. FINDINGS: Normal visualized distal femur. Normal visualized proximal tibia and fibula. Normal proximal tibiofibular articulation. The patient is status post total knee replacement. There is good alignment. Postoperative soft tissue changes. RAD/Knee 1 or 2 Views IMPRESSION: The patient is status post total knee replacement. There is good alignment. Postoperative soft tissue changes. Electronically Signed: Cristobal Bruce MD at 13:28 EDT ,
[2022-06-07 13:20] LABS: Bedside Glucose 133 mg/dL (74-106)
--- NOTE | 2022-06-07 15:36 | PCM.PN.HOSP ---
Documented by User: Hannah Mane NP, DIRECTOR ADVERTISING-C 06/07/22 16:01 Subjective Subjective Patient seen and examined. Pain currently controlled. Denies other symptoms or complaints. Hospitalist services for medical management. Objective Data Objective Data Vital Signs: Vital Signs Temp Pulse Resp BP Pulse Ox O2 Del Method O2 Flow Rate 97.9 F 65 18 112/56 L 94 Room Air 4 06/07/22 15:24 06/07/22 15:24 06/07/22 15:24 06/07/22 15:24 06/07/22 15:24 06/07/22 15:24 06/07/22 15:24 Oxygen Flow Rate (L/min) 4 Oxygen Delivery Method Room Air Weight: 167 lb 8.821 oz Body Mass Index (BMI) 33.8 Intake & Output: Intake and Output for Last 24 Hours 06/05/22 06/06/22 06/07/22 23:59 23:59 23:59 Intake Total 2432 / 2432 Balance 2432 / 2432 Lab / Micro Data Result Diagrams: 05/31/22 16:01 05/31/22 16:01 Labs: Laboratory Results - last 24 hr 06/07/22 09:42: POC Glucose 235 H 06/07/22 13:02: POC Glucose 133 H Micro: Microbiology 05/31/22 16:01 Swab (Method) Nasal Screen MRSA/MSSA - Final Radiography Diagnostic Testing: Radiology Impression Knee X-Ray 06/07/22 13:15 IMPRESSION: The patient is status post total knee replacement. There is good alignment. Postoperative soft tissue changes. Electronically Signed: Cristobal Bruce MD at 13:28 EDT , Physical Exam Const alert and oriented x3 HEENT normocephalic and moist oral mucous membranes Eyes PERRL, EOMs intact bilaterally and conjunctivae normal Neck no lymphadenopathy Resp normal respiratory effort and clear to auscultation bilaterally Cardio regular rate, regular rhythm and no murmurs Peripheral Pulses: pulses 2+ throughout GI normal to inspection, nondistended, normoactive bowel sounds, non-tender and non-distended Extremity normal to inspection Skin no rashes or lesions noted Skin Narrative: Postop dressing intact. Lesions: no lesions Rashes: no rashes Trauma: no lacerations or abrasions Neuro CN's II-XII intact bilaterally, no focal motor deficits, no sensory deficits noted and deep tendon reflexes 2+ bilaterally Psych mental status grossly normal and affect normal Assessment & Plan Assessment/Plan (1) Osteoarthritis: PLAN: Plan 1. Right knee osteoarthritis status post right total knee replacement- management per orthopedic medicine. PT/OT. As needed pain regimen. 2. Type 2 diabetes [id number]-Yiden with sliding scale insulin. Continue oral regimen. 3. Hypertension-stable, continue losartan/HCTZ. 4. Hyperlipidemia-continue statin. 5. Hypothyroidism-continue Synthroid. 6. History of DVT 7. GERD-continue PPI. 8. Obesity-encouraged diet and lifestyle modifications. DVT prophylaxis- xarelto This patient was seen by JULIO LimonC under the supervision of Dr. Gabriel. Time spent examining patient, reviewing data and subsequent management of care: 15 minutes Documented by User: Dr. Jessica Saba MD 06/07/22 16:44 Objective Data Lab / Micro Data Result Diagrams: 05/31/22 16:01 05/31/22 16:01 Assessment & Plan Assessment/Plan (1) Osteoarthritis: Charges/Coding Addendum Addendum: This patient was seen in conjunction with Hannah Mane NP. I have independently interviewed and examined the patient and reviewed pertinent historical, laboratory, and other data. I have reviewed her note and concur with her documentation 71-year-old with past medical history of type II DM, hypertension, GERD who comes in for elective right total knee arthroplasty. Hospital medicine has been consulted for postop medical management. Patient was seen in the immediate postop period. She stated that pain was starting to creep up. Denied any dizziness or palpitations or fevers. Vitals reviewed, stable, not on oxygen Physical Exam: Gen: Comfortable, not pale, not jaundiced CVS:HS I +II, regular, no murmurs RESP: Diminished at lung bases GI: BS present and normal, soft, nontender, no palpable organs EXT:No edema, cooling mat over the right knee, dressing intact ASSESSMENT: 1. Postop day #0 status post right total knee arthroplasty 2. Type II DM 3. Hypothyroidism 4. History of DVT 5. Hyperlipidemia 6. Hypertension Plan: Meds reviewed Continue current pain regimen Continue PT and OT per orthopedic recommendations Time spent reviewing patient's medical chart, coordinating all aspects of patient's care, discussing with nursin minutes Visit Charges Office Visits / Consults: [id number] OP Consult L5
[2022-06-07] MEDS: oxyCODONE 5 MG Tablet PO (16:43)
[2022-06-07 17:05] LABS: Bedside Glucose 203 mg/dL (74-106)
[2022-06-07] MEDS: Glimepiride 4 MG Tablet PO (17:22)
[2022-06-07] MEDS: Cefazolin 1 GM/50 ML BAG IV (18:01)
[2022-06-07] MEDS: Senna/Docusate Sodium 1 Tablet 2 TABLET PO (21:22)
[2022-06-07] MEDS: Pregabalin 75 MG Capsule PO (21:22)
[2022-06-07] MEDS: Pyridostigmine Bromide 60 MG Tablet PO (21:26)
[2022-06-07 23:16] LABS: Bedside Glucose 172 mg/dL (74-106)
[2022-06-08] VITALS (9 sets, daily range): BP systolic 103–116; BP diastolic 42–70; PULSE 47–62; RESP 16; TEMP 36.4–36.7; O2SAT 95–98
[2022-06-08] MEDS: Cefazolin 1 GM/50 ML BAG IV (03:08)
[2022-06-08 05:03] LABS: Hematocrit 34.6 % (37-47); Mean Corp Hgb Conc 31.8 g/dL (32-36); Mean Corpuscular Hgb 26.6 pg (27.0-32.0); Mean Corpuscular Volume 83.6 fL (81-99); Mean Platelet Vol. 10.9 fl (6.2-12.0); Platelet Count 245 K/mm3 (150-450); RBC Distribution Width CV 16.4 % (11.6-14.6); RBC Distribution Width SD 49.9 fl (35.1-43.9); Red Blood Count 4.14 M/mm3 (4.2-5.4); White Blood Count 13.3 K/mm3 (4.4-11.0)
[2022-06-08 05:36] LABS: ALB/GLOB Ratio 0.8 RATIO (0.9-2.4); AST(SGOT) 15 U/L (15-37); Alanine Aminotransfer ALT/SGPT 15 U/L (13-56); Albumin, Serum 2.6 g/dL (3.2-5.0); Alkaline Phosphatase 69 U/L (45-117); Anion Gap 6 (5-15); BUN 16 mg/dL (7-18); BUN/Creat Ratio 20.8 RATIO (10-20); Calcium,Total 8.1 mg/dL (8.5-10.1); Chloride 103 mmol/L (98-107); Creatinine, Serum 0.77 mg/dL (0.55-1.02); EST Glomerular Filtration Rate 78 mL/min (>60); Est Glom Filt Rate - Afr Amer 94 mL/min (>60); Estimated Creatinine Clearance 60.11 ml/min; Globulin 3.2 g/dL (2.2-4.2); Glucose 127 mg/dL (74-106); Potassium 3.7 mmol/L (3.5-5.1); Protein, Total 5.8 g/dL (6.4-8.2); Sodium Level 135 mmol/L (136-145)
[2022-06-08] MEDS: Rivaroxaban 10 MG Tablet PO (06:05)
[2022-06-08] MEDS: Acetaminophen 500 MG Tablet 1000 MG PO ×2 (06:06→14:02)
[2022-06-08] MEDS: Levothyroxine 100 MCG Tablet PO (06:33)
[2022-06-08] MEDS: Pregabalin 75 MG Capsule PO ×2 (06:33→14:01)
[2022-06-08 07:00] LABS: Bedside Glucose 121 mg/dL (74-106)
--- NOTE | 2022-06-08 08:19 | PN.HOSP_ITS ---
Subjective Subjective Follow-up on right total knee arthroplasty/postop medical management: Patient was seen and examined. Her pain is fairly controlled. Denied any chest pain or dizziness. No acute events overnight. Objective Data Objective Data Vital Signs: Vital Signs Temp Pulse Resp BP Pulse Ox O2 Del Method O2 Flow Rate 97.8 F 62 16 112/43 L 96 Room Air 4 06/08/22 06:02 06/08/22 06:22 06/08/22 06:02 06/08/22 06:02 06/08/22 06:22 06/08/22 06:22 06/07/22 21:24 Oxygen Flow Rate (L/min) 4 Oxygen Delivery Method Room Air Weight: 76 kg Body Mass Index (BMI) 33.8 Intake & Output: Intake and Output for Last 24 Hours 06/06/22 06/07/22 06/08/22 23:59 23:59 23:59 Intake Total 4022 / 4022 890.0 / 890.0 Output Total 550 / 550 Balance 3472 / 3472 890.0 / 890.0 Lab / Micro Data Result Diagrams: 06/08/22 04:55 06/08/22 04:55 Labs: Laboratory Results - last 24 hr 06/07/22 09:42: POC Glucose 235 H 06/07/22 13:02: POC Glucose 133 H 06/07/22 16:47: POC Glucose 203 H 06/07/22 21:21: POC Glucose 172 H 06/08/22 04:55: WBC 13.3 H, RBC 4.14 L, Hgb 11.0 L, Hct 34.6 L, MCV 83.6, MCH 26.6 L, MCHC 31.8 L, RDW Std Deviation 49.9 H, RDW Coeff of April 16.4 H, Plt Count 245, MPV 10.9 06/08/22 04:55: Sodium 135 L, Potassium 3.7, Chloride 103, Carbon Dioxide 26.0, Anion Gap 6, BUN 16, Creatinine 0.77, Estim Creat Clear Calc 60.11, Est GFR (MDRD) Af Amer 94, Est GFR (MDRD) Non-Af 78, BUN/Creatinine Ratio 20.8 H, Glucose 127 H, Calcium 8.1 L, Total Bilirubin 0.30, AST 15, ALT 15, Alkaline Phosphatase 69, Total Protein 5.8 L, Albumin 2.6 L, Globulin 3.2, A lbumin/Globulin Ratio 0.8 L 06/08/22 06:07: POC Glucose 121 H Micro: Microbiology 05/31/22 16:01 Swab (Method) Nasal Screen MRSA/MSSA - Final Radiography Diagnostic Testing: Radiology Impression Knee X-Ray 06/07/22 13:15 IMPRESSION: The patient is status post total knee replacement. There is good alignment. Postoperative soft tissue changes. Electronically Signed: Cristobal Bruce MD at 13:28 EDT , Physical Exam Narrative Physical Exam: Gen: Comfortable, not pale, not jaundiced CVS:HS I +II, regular, no murmurs RESP: Diminished at lung bases GI: BS present and normal, soft, nontender, no palpable organs EXT:No edema, cooling mat over the right knee, dressing intact Assessment & Plan Assessment/Plan (1) Status post total right knee replacement: PLAN: Plan 1.? POD #1 status post right total knee arthroplasty 2.? Type II DM 3.? Hypothyroidism 4.? History of DVT 5.? Hyperlipidemia 6.? Hypertension Plan: Meds reviewed Continue current pain regimen Continue PT and OT per orthopedic recommendations Charges/Coding Visit Charges Inpatient E&M: 58388 Subs Hosp L2
[2022-06-08] MEDS: Ensure Surgery 237 ML LIQUID PO (08:43)
[2022-06-08] MEDS: oxyCODONE 5 MG Tablet PO ×2 (08:43→14:01)
[2022-06-08] MEDS: Famotidine 20 MG Tablet PO (08:44)
[2022-06-08] MEDS: Cholecalciferol (VIT D3) 25 MCG TABLET (1,000 UNITS) 50 MCG PO (08:44)
[2022-06-08] MEDS: Ascorbic Acid 500 MG Tablet PO (08:44)
[2022-06-08] MEDS: Empagliflozin 10 MG Tablet PO (08:44)
[2022-06-08] MEDS: Pyridostigmine Bromide 60 MG Tablet PO (08:44)
[2022-06-08] MEDS: Pantoprazole Sodium 20 MG Tablet PO (08:44)
[2022-06-08] MEDS: hydroCHLOROthiazide 12.5mg 12.5 MG PO (08:44)
[2022-06-08] MEDS: Losartan Potassium 50 MG Tablet PO (08:44)
[2022-06-08] MEDS: Senna/Docusate Sodium 1 Tablet 2 TABLET PO (08:45)
[2022-06-08] MEDS: Folic Acid 1 MG Tablet PO (08:45)
[2022-06-08] MEDS: Glimepiride 4 MG Tablet PO (08:45)
--- NOTE | 2022-06-08 10:20 | CASEMGMT ---
ROSEMARY HURT Face to Face with patient for initial transition planning/care coordination assessment. RN LICHA introduced self and role at [facility]. Patient sitting in chair, alert and oriented. Patient willing to participate in assessment and is able to answer all questions appropriately. Care providers, pharmacy, and demographics verified. Patient wishes to discharge home and is setup with [facility] for outpatient therapy. Patient states she has no further needs or concerns at this time. CM to follow for discharge planning needs that may arise. PCP: Antonieta Specialists: anayeli Price Pharmacy: [facility] retail at discharge Insurance: [employer] [facility] Prescription Benefit: yes Living Will/HPOA: yes, Adan Olivas LNOK: Living Arrangements: Patient lives with in a single story home with 3 steps and railing to enter the home. Patient states she was independent at home prior to surgery Transportation: DME/HHC: Darby has polar care, shower chair, raised toilet, cane, walker, wheelchair at home. No previous HHC or SNF. Patient is setup with [facility] for outpatient therapy. Disposition Plan: Patient to discharge home with outpatient therapy, family support, and follow-up plans in place. Kathy BOTELLO, RN, CM
--- NOTE | 2022-06-08 10:21 | PCM.PN.ORT ---
Subjective Subjective The patient was sitting in bedside chair upon examination. Patient just finished physical therapy and did very well. Patient denies any chest pain, shortness of breath, dizziness, lightheadedness, nausea or vomiting, or calf pain. Pain is controlled on medications. No adverse overnight events. Overall patient states she is very pleased with outcome of surgery for the right knee when compared to the previous left knee. She does wish to go home when ready. Medicine has already seen the patient and is okay with discharge today. Objective Data Objective Data Vital Signs: Vital Signs Temp Pulse Resp BP Pulse Ox O2 Del Method O2 Flow Rate 98.0 F 50 L 16 116/51 L 97 Room Air 4 06/08/22 08:48 06/08/22 08:48 06/08/22 08:48 06/08/22 08:48 06/08/22 08:48 06/08/22 08:48 06/08/22 08:48 Oxygen Flow Rate (L/min) 4 Oxygen Delivery Method Room Air Weight: 76 kg Body Mass Index (BMI) 33.8 Intake & Output: Intake and Output for Last 24 Hours 06/06/22 06/07/22 06/08/22 23:59 23:59 23:59 Intake Total 4022 / 4022 890.0 / 890.0 Output Total 550 / 550 Balance 3472 / 3472 890.0 / 890.0 Lab / Micro Data Result Diagrams: 06/08/22 04:55 06/08/22 04:55 Labs: Laboratory Results - last 24 hr 06/07/22 13:02: POC Glucose 133 H 06/07/22 16:47: POC Glucose 203 H 06/07/22 21:21: POC Glucose 172 H 06/08/22 04:55: WBC 13.3 H, RBC 4.14 L, Hgb 11.0 L, Hct 34.6 L, MCV 83.6, MCH 26.6 L, MCHC 31.8 L, RDW Std Deviation 49.9 H, RDW Coeff of April 16.4 H, Plt Count 245, MPV 10.9 06/08/22 04:55: Sodium 135 L, Potassium 3.7, Chloride 103, Carbon Dioxide 26.0, Anion Gap 6, BUN 16, Creatinine 0.77, Estim Creat Clear Calc 60.11, Est GFR (MDRD) Af Amer 94, Est GFR (MDRD) Non-Af 78, BUN/Creatinine Ratio 20.8 H, Glucose 127 H, Calcium 8.1 L, Total Bilirubin 0.30, AST 15, ALT 15, Alkaline Phosphatase 69, Total Protein 5.8 L, Albumin 2.6 L, Globulin 3.2, Albumin/Globulin Ratio 0.8 L 06/08/22 06:07: POC Glucose 121 H Micro: Microbiology 05/31/22 16:01 Swab (Method) Nasal Screen MRSA/MSSA - Final Radiography Diagnostic Testing: Radiology Impression Knee X-Ray 06/07/22 13:15 IMPRESSION: The patient is status post total knee replacement. There is good alignment. Postoperative soft tissue changes. Electronically Signed: Cristobal Bruce MD at 13:28 EDT , Physical Exam Narrative Vital signs stable and afebrile. SCDs and CONOR hose are in place bilaterally Patient is able to plantarflex and dorsiflex actively. Sensation is intact to light touch to saphenous, sural, superficial and deep peroneal, and tibial distribution. Proximal pin site dressing clean dry and intact. Main Mepilex dressing is clean dry and intact with very small drainage from middle one third less than rylie size. Does have some moderate drainage from the distal pin site. Negative Homans bilaterally, negative signs and symptoms of DVT. Const alert, oriented x3 and no apparent distress Assessment & Plan Assessment/Plan (1) Status post total right knee replacement: PLAN: 1. S/P right total knee arthroplasty POD #1 2. Continue Pain Medications: Tylenol and oxycodone 3. DVT Prophylaxis: Patient currently on Xarelto for 2 weeks postoperatively due to previous history of DVT. At her 2-week postoperative visit we will switch her over to aspirin 81 mg twice daily for an additional 2 weeks. I did recommend that she avoid the meloxicam while taking the Xarelto due to the increased risk of bleeding. She voiced understanding and agreement. 4. PT/OT: Weightbearing as tolerated with walker 5. H & H: 11.0/34.6, asymptomatic. Postoperative anemia secondary to acute blood loss from surgery without any intra operative complications. 6. Reactive leukocytosis: Currently 13.3, afebrile. Patient did receive Decadron intraoperatively 7. Continue postoperative medical management per medicine: Case was discussed with medicine and is appropriate for discharge home today 8. Encouraged Incentive Spirometry 9. Disposition: Plan will be for discharge home today as patient is doing well with therapy, pain is well controlled and medically cleared. She has outpatient physical therapy established. She would like her medications sent to the [facility] pharmacy. She will follow-up per postop instructions. Upon discharge patient will contact her office with any concerns or questions. I have reviewed the [place] Automated Rx Reporting System (OARRS) report for this patient for refill pattern and other prescriber involvement as part of the appropriate surveillance for the provision of acute and chronic controlled medications. The report was requested and reviewed on the date of this entry and was considered in the prescribing process. This dictation was created using voice recognition software. Phonetic and/or grammatical errors may exist.
--- NOTE | 2022-06-08 10:26 | CASEMGMT ---
ROSEMARY HURT in to discuss CARDE[employer]S form with patient. RN LICHA explained CAR[employer]S Form to patient, patient voiced understanding. Patient signed CARDE[employer]S form and filed in chart. Patient provided with copy of signed CARDE[employer]S form. Patient had no further questions or concerns at this time.
--- NOTE | 2022-06-08 10:26 | PCM.DC ---
Discharge Instructions Diet Discharge Diet: No restrictions Activity Discharge Activity: May Not Drive (No driving for 6 weeks postoperatively) May shower in (days): 1 (Please turn dressing away from water. Okay to get wet as long as dressing is intact to skin.) Ice area for (Minutes): 20 (Every 1-2 hours while awake[address] Please place barrier between the skin and ice pack.) Weight Bearing Status: Weight bearing as tolerated (With walker) Keep extremity elevated above heart level: Operative Extremity Dressing / Incision Call your doctor if your incision/area has: Continuous Slow Oozing, Sudden Increased Bleeding, Increased Pain/ Swelling, Increased Redness and Foul Smelling Discharge Call your doctor if you observe: Fever of 101 or Higher, Coldness, Increased Pain, Numbness or Tingling, Change in Color, Shortness of breath, Chest pain, Calf discomfort and Uncontrolled pain Remove Dressing in: 4 days (Okay to remove dressing on June 12, 2022) Additional Dressing/Incision Instructions:: Follow [facility] Post-op Instructions. Once postoperative dressing has been removed only use gentle soap and water over the incision. Do not use any ointments, Neosporin, salves, alcohol pads over the incision for 6 weeks postoperatively. Do not submerge underwater for 6 weeks postoperatively. Continue with CONOR hose/elastic stockings for 2 weeks postoperatively. May remove at nighttime but needs to be placed back on the leg during the day. Do NOT use alcohol with narcotic pain medication. Do NOT make important decisions while taking narcotic medication. If you have problems with taking your medication (rash, itching, nausea, etc.) call the office at once. Follow Up Care Test Results: Test results from this visit will be discussed in further detail at your follow-up appointment, if applicable. Discharge Plan Admission Admit Date/Time: 06/07/22 14:12 Attending Provider: Adan Price Primary Care Provider: Kvng Fung Consult[employer] Providers: Rudy Gabriel Discharge Orders/Prescriptions Prescriptions: New acetaminophen 500 mg Tablet 1,000 mg PO Q8 30 Days Qty: 180 0RF Rx Instructions: Do not take more than 3000 mg Tylenol in a 24-hour period. oxycodone 5 mg Tablet 5 - 10 mg PO Q4H PRN PRN (Reason: Pain Score 4-10) 5 Days Qty: 60 0RF Xarelto 10 mg Tablet 10 mg PO DAILY@0600 14 Days Qty: 14 0RF Rx Instructions: Take for 2 weeks postoperatively for DVT prophylaxis sennosides-docusate sodium [Stool Softener-Stimulant Laxat] 8.6-50 mg Tablet 2 tab PO BID Qty: 20 0RF Rx Instructions: Take until first bowel movement, then as needed Continued cholecalciferol (vitamin D3) 50 mcg (2,000 unit) capsule 50 mcg PO DAILY glimepiride 4 mg tablet 4 mg PO BID levothyroxine 125 mcg tablet 100 mcg PO DAILY pregabalin [Lyrica] 75 mg capsule 75 mg PO TID pyridostigmine bromide 60 mg tablet 60 mg PO BID Qty: 180 1RF folic acid 1 MG tablet 1 mg PO DAILY Label Comments: SUPPLEMENT atorvastatin 10 mg tablet 5 mg PO .QOD losartan-hydrochlorothiazide 1 EACH tablet 1 ea PO DAILY ascorbic acid (vitamin C) [Vitamin C] 500 mg Tablet 500 mg PO DAILY ferrous sulfate 325 mg (65 mg iron) Tablet 325 mg PO DAILY omeprazole magnesium [Prilosec OTC] 20 mg Tablet,Delayed Release (Dr/Ec) 20 mg PO DAILY Farxiga 5 mg tablet 5 mg PO 1XD losartan 50 mg tablet 50 mg PO 1XD losartan 50 mg tablet losartan 50 mg tablet hydrochlorothiazide 12.5 mg tablet 12.5 mg PO DAILY Discontinued meloxicam 7.5 MG tablet 7.5 mg PO DAILY Referrals / Follow Up: Kvng Fung MD [Primary Care Provider] - Milton Warren PA-C [Med Staff - [facility]] - 06/22/22 1:45 pm Physical,Therapy [Other] - 06/12/22 10:30 am Disposition Disposition (needs filled in before D/C Order can be placed): Home, Self Care
[2022-06-08] MEDS: Insulin Lispro 100 UNIT/ML INSULN.PEN SC (11:25)
[2022-06-08] MEDS: Ferrous Sulfate 325 MG Tablet PO (11:26)
[2022-06-08 12:10] LABS: Bedside Glucose 193 mg/dL (74-106)
--- NOTE | 2022-06-08 12:26 | PHA.DC.MC ---
Pharmacy Service has performed discharge medication reconciliation and counseling for this patient. The patient was counseled on the following discharge medications and changes in medications for homegoing were reviewed.\ 1. SENNA/DOCUSATE 2. TYLENOL 3. OXYCODONE 4. XARELTO The Reason for Use, instructions for use, and potential side effects were reviewed for all new medications. The patient's questions regarding all of their medications were answered. The patient was able to verbally demonstrate an understanding of their discharge medications. Home Medications folic acid 1 mg tablet 1 mg PO DAILY supplement 10/13/13 losartan 50 mg-hydrochlorothiazide 12.5 mg tablet 1 ea PO DAILY HTN 03/04/19 atorvastatin 10 mg tablet 5 mg PO .QOD Cholesterol 09/06/21 cholecalciferol (vitamin D3) 50 mcg (2,000 unit) capsule 50 mcg PO DAILY supplement 09/06/21 glimepiride 4 mg tablet 4 mg PO BID blood sugar 09/06/21 ascorbic acid (vitamin C) 500 mg tablet (Vitamin C) 500 mg PO DAILY supplement 02/06/22 ferrous sulfate 325 mg (65 mg iron) tablet 325 mg PO DAILY supplement 02/06/22 omeprazole magnesium 20 mg tablet,delayed release (Prilosec OTC) 20 mg PO DAILY GERD 02/06/22 dapagliflozin 5 mg tablet (Farxiga) 5 mg PO 1XD blood sugar 05/25/22 levothyroxine 125 mcg tablet 100 mcg PO DAILY thyroid 05/25/22 pregabalin 75 mg capsule (Lyrica) 75 mg PO TID pain 05/25/22 pyridostigmine bromide 60 mg tablet 60 mg PO BID eye health #180 tabs 05/25/22 hydrochlorothiazide 12.5 mg tablet 12.5 mg PO DAILY 06/07/22 losartan 50 mg tablet 50 mg PO 1XD 06/07/22 losartan 50 mg tablet mg 06/07/22 losartan 50 mg tablet mg 06/07/22 acetaminophen 500 mg tablet 1,000 mg PO Q8 30 days #180 tabs 06/08/22 oxycodone 5 mg tablet 5 - 10 mg PO Q4H PRN PRN Pain Score 4-10 5 days #60 tabs 06/08/22 rivaroxaban 10 mg tablet (Xarelto) 10 mg PO DAILY@0600 14 days #14 tabs 09/15/22 sennosides 8.6 mg-docusate sodium 50 mg tablet (Stool Softener-Stimulant Laxative) 2 tab PO BID #20 tabs 06/08/22 The patient's discharge medication list was reviewed for discrepancies and discrepancies were resolved.
== END 2022-06-08 15:05 | disposition home or self-care (01) ==
LOC: SDC 14:12 → MS3 14:12
PROVIDERS: Anesthesiology; Internal Medicine; Physician Assistant Surgical; Admitting Provider Specialist; PCP Family Medicine; Referring Provider Specialist; Visit Provider Specialist
PROC: 0SRC0JZ Replacement of Right Knee Joint with Synthetic Substitute, Open Approach (ICD-10-PCS; CPT 27447; principal; 2022-06-07 10:00)
DX: M17.11 Unilateral primary osteoarthritis, right knee (principal); M06.9 Rheumatoid arthritis, unspecified; E11.9 Type 2 diabetes mellitus without complications; E78.00 Pure hypercholesterolemia, unspecified; Z79.84 Long term (current) use of oral hypoglycemic drugs; E07.9 Disorder of thyroid, unspecified; I10 Essential (primary) hypertension; K21.9 Gastro-esophageal reflux disease without esophagitis; Z79.899 Other long term (current) drug therapy; Z86.718 Personal history of other venous thrombosis and embolism; Z87.440 Personal history of urinary (tract) infections; R13.10 Dysphagia, unspecified; G89.29 Other chronic pain; R06.02 Shortness of breath; Z79.890 Hormone replacement therapy; E66.9 Obesity, unspecified; Z68.33 Body mass index [BMI] 33.0-33.9, adult
CPT/HCPCS: 27447; S2900; 01402; 64447; 36415; 73560; 80048; 80053; 82040; 82962; 83735; 84443; 85025; 85027; 87081; 88305; 88307; 88311; 96361; 96365; 96366; 97110; 97116; 97162; 97166; 97530; 97535; 99218; 99251; C1776; J7120; G0378; G0463; J2405; J3475

== ENCOUNTER → 2022-09-21 | Outpatient (CLI) | payer MEDICARE, SELFPAY ==
[2022-09-21 16:08] LABS: ALB/GLOB Ratio 0.9 RATIO (0.9-2.4); AST(SGOT) 13 U/L (15-37); Alanine Aminotransfer ALT/SGPT 21 U/L (13-56); Albumin, Serum 3.3 g/dL (3.2-5.0); Alkaline Phosphatase 92 U/L (45-117); Anion Gap 6 (5-15); BUN 18 mg/dL (7-18); BUN/Creat Ratio 20.8 RATIO (10-20); Calcium,Total 9.1 mg/dL (8.5-10.1); Chloride 107 mmol/L (98-107); Cholesterol 205 mg/dL (200); Creatinine, Serum 0.87 mg/dL (0.55-1.02); EST Glomerular Filtration Rate 68 mL/min (>60); Est Glom Filt Rate - Afr Amer 82 mL/min (>60); Globulin 3.5 g/dL (2.2-4.2); Glucose 61 mg/dL (74-106); High Density Lipoprotein 59 mg/dL; Potassium 4.3 mmol/L (3.5-5.1); Protein, Total 6.8 g/dL (6.4-8.2); Sodium Level 141 mmol/L (136-145); Triglycerides 131 mg/dL; Very Low Density Lipoprotein 26 mg/dL (5-40)
== END | disposition home or self-care (01) ==
LOC: MFPLAB 11:31
PROVIDERS: PCP Family Medicine; Referring Provider Family Medicine; Visit Provider Family Medicine
DX: E11.9 Type 2 diabetes mellitus without complications (principal)
CPT/HCPCS: 36415; 80053; 80061

== ENCOUNTER → 2023-04-11 | Outpatient (CLI) | payer MEDICARE, SELFPAY ==
--- NOTE | 2023-04-11 12:18 | BI_ITS ---
MAMMOGRAPHY - BILATERAL SCREENING 3-D TOMOSYNTHESIS REASON FOR EXAM: Female, 72 years old. Routine screening PERTINENT HISTORY: No significant family history. TECHNIQUE: 2-D mammograms and 3-D Tomosynthesis of the breast (s) were performed. CAD was performed. COMPARISON: 08/28/2019 FINDINGS: The breast composition is almost entirely fat. Scattered benign vascular calcifications are seen. No dense spiculated masses or suspicious microcalcifications are identified. No architectural distortion is identified. There is no skin thickening or retraction. There has been no significant change since the prior study. BI/SCRN MAMM (CAD)W/JEFERSON BILAT IMPRESSION: No mammographic signs of malignancy. Routine yearly mammograms recommended. ASSESSMENT CATEGORY: BIRADS Category 1: Negative. A letter regarding these results will be sent to the patient by the facility within 30 days. FOLLOW UP RECOMMENDATION: Yearly follow up mammogram recommended. (A) Approximately 10% of breast cancers are not detected by mammography. A normal mammogram should not delay biopsy of a clinically suspicious abnormality. Electronically Signed: Dany Joe MD at 14:46 EDT ,
== END | disposition home or self-care (01) ==
LOC: OPBI 12:16
PROVIDERS: PCP Internal Medicine; Referring Provider Internal Medicine; Visit Provider Internal Medicine
DX: Z12.31 Encounter for screening mammogram for malignant neoplasm of breast (principal)
CPT/HCPCS: 77063; 77067

== ENCOUNTER 2023-12-05 22:31 | Emergency (ER) | payer MEDICARE, SELFPAY ==
[2023-12-05 22:32] VITALS: BP 101/88; PULSE 67; RESP 18; TEMP 35.9; O2SAT 100; BMI 39.0
--- NOTE | 2023-12-05 23:00 | RAD_ITS ---
EXAM: XR SOFT TISSUE NECK CLINICAL INDICATION: FB thorat TECHNIQUE: Frontal and lateral views of the soft tissues of the neck. COMPARISON: No relevant prior studies available. FINDINGS: AIRWAY: Unremarkable. Grossly patent. BONES/JOINTS: At least moderate degenerative disease at C5-6. At least 2 mm of degenerative anterolisthesis of C4 on C5. No acute or healing fracture or malalignment. No unusual lytic or sclerotic lesions of bone. SOFT TISSUES: Surgical clips in the area of the thyroid. Correlate with surgical history. No radiopaque foreign body. No pathologic thickening or enlargement of the epiglottis. RAD/Neck for Soft Tissue IMPRESSION: 1. At least moderate degenerative disease at C5-6. 2. At least 2 mm of degenerative anterolisthesis of C4 on C5. Electronically Signed: Tony Banerjee MD at 0:03 EDT ,
[2023-12-05] MEDS: Glucagon 1 MG/ML Syringe IV (23:19)
[2023-12-05] MEDS: Lorazepam 2 MG/ML WCH Syringe 0.5 MG IV (23:19)
--- NOTE | 2023-12-05 23:31 | EDS_ITS ---
HPI History of Present Illness Chief Complaint: Foreign Body Informant: patient and spouse/S.O. Narrative Narrative: Patient is a 73-year-old female with history of hypothyroidism hypertension and diabetes. She states she takes 1000 mg of metformin twice a day for this. She states around 9:45 PM she took her 2 pills and when she went to swallow them she felt they got stuck . She states that she has tried to make herself throw up without success and is also drank warm water but still feels like there is something stuck in her throat and secondary to this comes in for evaluation. [facility] Medical History Alcohol use Ambulates with cane Arthritis Back pain Bladder disease Cataracts, bilateral Chronic cough Dietary restriction Difficulty swallowing Gastric reflux History of DVT (deep vein thrombosis) History of edema History of hiatal hernia History of pain when walking History of steroid therapy History of stress test History of UTI Hyperlipemia Hypertension Leg cramps Low iron Myasthenia gravis Neuropathy Non-smoker Pain PONV (postoperative nausea and vomiting) Rheumatoid arthritis Shortness of breath on exertion Thyroid disease Wears glasses Home Medications folic acid 1 mg tablet 1 mg PO DAILY supplement 10/13/13 [History Last Taken 06/06/22] losartan 50 mg-hydrochlorothiazide 12.5 mg tablet 1 ea PO DAILY HTN 03/04/19 [History Last Taken 06/06/22] atorvastatin 10 mg tablet 5 mg PO .QOD Cholesterol 09/06/21 [History Last Taken 06/06/22] cholecalciferol (vitamin D3) 50 mcg (2,000 unit) capsule 50 mcg PO DAILY supplement 09/06/21 [History Last Taken 06/06/22] glimepiride 4 mg tablet 4 mg PO BID blood sugar 09/06/21 [History Last Taken 06/06/22] ascorbic acid (vitamin C) 500 mg tablet (Vitamin C) 500 mg PO DAILY supplement 02/06/22 [History Last Taken 06/06/22] ferrous sulfate 325 mg (65 mg iron) tablet 325 mg PO DAILY supplement 02/06/22 [History Last Taken 06/06/22] omeprazole magnesium 20 mg tablet,delayed release (Prilosec OTC) 20 mg PO DAILY GERD 02/06/22 [History Last Taken 06/06/22] dapagliflozin propanediol 5 mg tablet (Farxiga) 5 mg PO 1XD blood sugar 05/25/22 [History Last Taken 06/06/22] levothyroxine 125 mcg tablet 100 mcg PO DAILY thyroid 05/25/22 [History Last Taken 06/06/22] pregabalin 75 mg capsule (Lyrica) 75 mg PO TID pain 05/25/22 [History Last Taken 06/06/22] hydrochlorothiazide 12.5 mg tablet 12.5 mg PO DAILY 06/07/22 [History Last Taken Unknown] losartan 50 mg tablet 50 mg PO 1XD 06/07/22 [History Last Taken Unknown] acetaminophen 500 mg tablet 1,000 mg (2 x 500 mg) PO Q8 30 days #180 tabs 06/08/22 [Rx Last Taken Unknown] oxycodone 5 mg tablet 5 - 10 mg (1 - 2 x 5 mg) PO Q4H PRN PRN Pain Score 4-10 5 days #60 tabs 06/08/22 [Rx Last Taken Unknown] rivaroxaban 10 mg tablet (Xarelto) 10 mg PO DAILY@0600 14 days #14 tabs 06/08/22 [Rx Last Taken Unknown] vibegron 75 mg tablet (Gemtesa) 75 mg PO DAILY 12/04/22 [History Last Taken Unknown] Allergy/AdvReac Type Severity Reaction Status Date / Time latex Allergy Severe Other Verified 12/05/23 22:32 shellfish derived Allergy Severe PASSED Verified 12/05/23 22:32 OUT, DIARRHEA adhesive Allergy Mild Rash Verified 12/05/23 22:32 levofloxacin AdvReac Intermediate WEAK, Verified 12/05/23 22:32 NAUSEA povidone AdvReac Mild Hives Verified 12/05/23 22:32 Surgical History History of appendectomy History of cholecystectomy History of colonoscopy History of hysterectomy History of left knee surgery History of partial thyroidectomy S/P insertion of spinal cord stimulator Social History Smoking Status: Never smoker Electronic Cigarette Use: not used second hand exposure: No alcohol intake: current alcohol intake frequency: a few times a month Alcohol type: wine substance use type: does not use ROS ROS ED Constitutional Constitutional ED: Denies chills or fever(s) ENT ENT ED: Reports sore throat and other Details: Positive dysphagia Cardiovascular Cardiovascular: Denies chest pain Respiratory/Chest Respiratory/Chest: Denies cough or dyspnea Gastrointestinal Gastrointestinal: Denies abdominal pain, diarrhea, nausea or vomiting Genitourinary Genitourinary ED: Denies dysuria Musculoskeletal Musculoskeletal: Reports neck pain; Denies myalgias Integumentary Denies rash Neurologic Neurologic: Denies headache(s) Hematologic/Lymphatic Hematologic/Lymphatic: Denies easy bleeding or easy bruising EXAM Physical Exam Const Vital Signs: 12/05/23 22:32 12/05/23 23:25 12/06/23 01:07 Temperature 96.7 F L 96.7 F L Temperature Source Temporal Pulse Rate 67 67 Respiratory Rate 18 18 Respiratory Effort Normal Non-Labored Respiratory Pattern Normal Blood Pressure 101/88 H 101/88 H Blood Pressure Mean 92 92 Pulse Ox 100 100 Positive well nourished, well developed and obese General Appearance ED: well developed; Negative for pallor Nutritional Appearance: obese HEENT Reports moist mucous membranes HEENT Narrative: No tongue or lip swelling no oral lesions no airway edema or compromise or signs of infection noted in the posterior pharynx Eyes PERRL and EOMs intact bilaterally General Eye ED: Negative for scleral icterus Neck supple Neck Narrative: No crepitance palpated Resp normal respiratory effort and clear to auscultation bilaterally Cardio regular rate and regular rhythm Extremity normal to inspection Neuro oriented x3, CN's II-XII intact bilaterally and no sensory deficits noted Sensorium / Orientation: alert Motor Exam: strength 5/5 throughout Psych Psych Narrative: Patient has a nervous/anxious affect Skin no rashes or lesions noted General Skin Exam: Negative for jaundice or pallor MDM MDM MDM Narrative Medical decision making narrative: Patient presented to the ER with stable vitals and in no acute respiratory distress. She reported that she believed her to 500 mg metformin pills were lodged in her esophagus. Differential diagnosis is for partial obstruction versus pill esophagitis versus esophageal perforation/Boerhaave syndrome versus globus hystericus. She does not have crepitance and she does not have pain with palpation in the neck going against an esophageal perforation/Boerhaave syndrome. As she reported the obstruction was pill version this will typically not need any type of EGD as the pill should dissolve spontaneously. The patient was given glucagon and Ativan as smooth muscle relaxers as well as viscous lidocaine to help with throat pain. Following administration of this the patient reported resolution of symptoms and her x-ray revealed no obvious signs of neck pathology. Therefore with resolution of symptoms no signs of respiratory distress and stable vitals there is no need for further workup and patient is otherwise safe for discharge History & Record Review Discussion w/independent historian: Patient and Significant other Radiography Diagnostic Testing: Clinical Impression(s) from Imaging Studies Soft Tissue Neck X-Ray 12/05/23 23:00 IMPRESSION: 1. At least moderate degenerative disease at C5-6. 2. At least 2 mm of degenerative anterolisthesis of C4 on C5. Electronically Signed: Tony Banerjee MD at 0:03 EDT , Soft tissue neck x-ray as interpreted by the emergency medicine physician reveals postoperative changes consistent with history of thyroidectomy without foreign body free air or signs of epiglottitis Discharge Plan Triage Chief Complaint: Foreign Body ED Provider: Tony Zhou Dx/Rx/DC Orders Clinical Impression: Esophageal foreign body, Pill esophagitis, Diabetes, Hypothyroidism Instructions: ED Esophageal Foreign Body, Resolved Prescriptions: No Action cholecalciferol (vitamin D3) 50 mcg (2,000 unit) capsule 50 mcg PO DAILY glimepiride 4 mg tablet 4 mg PO BID levothyroxine 125 mcg tablet 100 mcg PO DAILY pregabalin [Lyrica] 75 mg capsule 75 mg PO TID Gemtesa 75 mg tablet 75 mg PO DAILY folic acid 1 MG tablet 1 mg PO DAILY Patient Comments: SUPPLEMENT atorvastatin 10 mg tablet 5 mg PO .QOD losartan-hydrochlorothiazide 1 EACH tablet 1 ea PO DAILY ascorbic acid (vitamin C) [Vitamin C] 500 mg Tablet 500 mg PO DAILY ferrous sulfate 325 mg (65 mg iron) Tablet 325 mg PO DAILY omeprazole magnesium [Prilosec OTC] 20 mg Tablet,Delayed Release (Dr/Ec) 20 mg PO DAILY Farxiga 5 mg tablet 5 mg PO 1XD losartan 50 mg tablet 50 mg PO 1XD hydrochlorothiazide 12.5 mg tablet 12.5 mg PO DAILY acetaminophen 500 mg Tablet 1,000 mg PO Q8 30 Days Qty: 180 0RF Rx Instructions: Do not take more than 3000 mg Tylenol in a 24-hour period. oxycodone 5 mg Tablet 5 - 10 mg PO Q4H PRN PRN (Reason: Pain Score 4-10) 5 Days Qty: 60 0RF Xarelto 10 mg Tablet 10 mg PO DAILY@0600 14 Days Qty: 14 0RF Rx Instructions: Take for 2 weeks postoperatively for DVT prophylaxis Primary Care Provider: Cherelle Thompson Referrals: Cherelle Thompson MD [Primary Care Provider] - Disposition Disposition: Home, Self Care Discharge Date/Time: 12/06/23 01:16
[2023-12-06 01:07] VITALS: BP 101/88; PULSE 67; RESP 18; TEMP 35.9; O2SAT 100
== END 2023-12-06 01:16 | disposition home or self-care (01) ==
PROVIDERS: Emergency Provider Emergency Medicine; PCP Internal Medicine; Visit Provider Emergency Medicine
DX: T18.108A Unspecified foreign body in esophagus causing other injury, initial encounter (principal); E11.40 Type 2 diabetes mellitus with diabetic neuropathy, unspecified; E89.0 Postprocedural hypothyroidism; K20.80 Other esophagitis without bleeding; Z90.49 Acquired absence of other specified parts of digestive tract; I10 Essential (primary) hypertension; E78.5 Hyperlipidemia, unspecified; Z87.440 Personal history of urinary (tract) infections; Z86.718 Personal history of other venous thrombosis and embolism
CPT/HCPCS: 70360; 96374; 96375; 99282; A4216; J1610

== ENCOUNTER 2024-06-27 17:24 | Inpatient (IN) | payer MEDICARE, SELFPAY ==
[2024-06-27 17:32] VITALS: BP 159/72; PULSE 61; PULSE 70; RESP 14; RESP 16; TEMP 35.9; O2SAT 97; BMI 34.0
[2024-06-27] MEDS: APIXABAN 2.5 MG TABLET (WCH) PO (22:07)
[2024-06-27] MEDS: Doxycycline 100 MG CAPSULE PO (22:07)
[2024-06-27] MEDS: Pregabalin 50 MG Capsule 100 MG PO (22:07)
[2024-06-27] MEDS: Methocarbamol 500 MG Tablet PO (22:07)
--- NOTE | 2024-06-27 22:09 | HP.PCM_ITS ---
HPI - General General Date of Admission: 06/27/24 Date of Service: 06/30/24 Chief Complaint: Here for rehabilitation. HPI Narrative LEOBARDO VALDEZ, is a 73 Female who presents with followin06/19/2024 Admit to [facility]. 06/19/2024 Orthopedics performed revision left total knee replacement, both components, to hinged mechanism. Substantial scar debridement lysis of adhesions. Application of wound VAC. 06/19/2024 Plastics performed rearrangement of adjacent tissue trunk defect. Doxycycline x 3 months. PT/OT. 06/21/2024 TDWB left lower extremity. Locked in extension for 2 weeks. Aspirin 81mg twice daily, scd, dvt prophylaxis. 06/22/2024 PT/OT for SNF. 06/24/2024 Doing well, pain controlled. 06/26/2024 Doing well, pain controlled. 06/27/2024 Admit to TCU with debility, here for rehabilitation, strengthening, prior to discharge home with . [facility] Medical History (Updated 06/27/24 @ 22:[address] Leo James MD) History of revision of total replacement of left knee joint Wears glasses Alcohol use History of steroid therapy Bladder disease Neuropathy Back pain Dietary restriction History of pain when walking Pain Myasthenia gravis Ambulates with cane Rheumatoid arthritis Low iron History of DVT (deep vein thrombosis) Hyperlipemia Difficulty swallowing History of hiatal hernia Gastric reflux Non-smoker Shortness of breath on exertion Chronic cough PONV (postoperative nausea and vomiting) Leg cramps History of edema History of stress test Hypertension Thyroid disease Cataracts, bilateral History of UTI Arthritis Home Medications ?Medication ?Instructions ?Recorded ?Last Taken ?Type folic acid 1 mg tablet 1 mg PO DAILY supplement 10/13/13 06/06/22 History losartan 50 mg-hydrochlorothiazide 1 ea PO DAILY HTN 03/04/19 06/06/22 History 12.5 mg tablet atorvastatin 10 mg tablet 5 mg PO .QOD Cholesterol 09/06/21 06/26/24 18:45 History cholecalciferol (vitamin D3) 50 50 mcg PO DAILY supplement 09/06/21 06/27/24 History mcg (2,000 unit) capsule glimepiride 4 mg tablet 4 mg PO BID blood sugar 09/06/21 06/27/24 History ascorbic acid (vitamin C) 500 mg 500 mg PO DAILY supplement 02/06/22 06/27/24 History tablet (Vitamin C) ferrous sulfate 325 mg (65 mg 325 mg PO DAILY supplement 02/06/22 06/06/22 History iron) tablet omeprazole magnesium 20 mg 20 mg PO DAILY GERD 02/06/22 06/06/22 History tablet,delayed release (Prilosec OTC) dapagliflozin propanediol 5 mg 10 mg PO DAILY blood sugar 05/25/22 06/06/22 History tablet (Farxiga) levothyroxine 125 mcg tablet 100 mcg PO DAILY thyroid 05/25/22 06/27/24 History pregabalin 75 mg capsule (Lyrica) 100 mg PO TID pain 05/25/22 06/06/22 History hydrochlorothiazide 12.5 mg tablet 12.5 mg PO DAILY Blood pressure 06/07/22 Unknown History losartan 50 mg tablet 50 mg PO 1XD Blood pressure 06/07/22 Unknown History oxycodone 5 mg tablet 5 - 10 mg (1 - 2 x 5 mg) PO Q4H 06/08/22 06/27/24 Rx PRN PRN Pain Score 4-10 5 days #60 tabs rivaroxaban 10 mg tablet (Xarelto) 10 mg PO DAILY@0600 14 days #14 06/08/22 Unknown Rx tabs vibegron 75 mg tablet (Gemtesa) 75 mg PO DAILY Overactive bladder 12/04/22 Unknown History acetaminophen 500 mg tablet 1,000 mg PO Q8 PRN pain 06/27/24 06/27/24 05:30 History apixaban 2.5 mg tablet 2.5 mg PO BID Anticoagulant 06/27/24 06/27/24 08:45 History cyanocobalamin (vitamin B-12) 1,000 mcg PO DAILY Supplement 06/27/24 Unknown History 1,000 mcg capsule docusate sodium 100 mg capsule 100 mg PO BID Constipation 06/27/24 Unknown History (Colace) doxycycline hyclate 100 mg capsule 100 mg PO Q12H Infection 06/27/24 06/27/24 05:30 History metformin 500 mg tablet,extended 1,000 mg PO BID Diabetes 06/27/24 06/27/24 05:30 History release 24 hr methocarbamol 500 mg tablet 500 mg PO TID Muscle spasms 06/27/24 06/27/24 08:45 History naloxone 4 mg/actuation nasal spray 4 mg intranasal Q3M PRN opioid 06/27/24 Unknown History overdose pantoprazole 20 mg tablet,delayed 20 mg PO DAILY GERD 06/27/24 Unknown History release polysaccharide iron complex 150 mg 150 mg PO DAILY Supplement 06/27/24 Unknown History iron capsule (Ferrex) Allergy/AdvReac Type Severity Reaction Status Date / Time latex Allergy Severe Other Verified 12/05/23 22:32 shellfish derived Allergy Severe PASSED Verified 12/05/23 22:32 OUT, DIARRHEA adhesive Allergy Mild Rash Verified 12/05/23 22:32 levofloxacin AdvReac Intermediate WEAK, Verified 12/05/23 22:32 NAUSEA povidone AdvReac Mild Hives Verified 12/05/23 22:32 Surgical History History of colonoscopy S/P insertion of spinal cord stimulator History of partial thyroidectomy History of appendectomy History of left knee surgery History of hysterectomy History of cholecystectomy Social History (Updated 06/27/24 @ 22:[address] Leo James MD) household members: spouse Smoking Status: Never smoker Electronic Cigarette Use: not used second hand exposure: No alcohol intake: current alcohol intake frequency: a few times a month Alcohol type: wine substance use type: does not use ROS Constitutional Constitutional: Denies chills, fever(s) or weight gain ENT HEENT: Denies headache(s), nasal congestion or nasal discharge Cardiovascular Cardiovascular: Denies chest pain or palpitations Respiratory/Chest Respiratory/Chest: Denies cough, excessive phlegm production or shortness of breath with exertion Gastrointestinal Gastrointestinal: Denies abdominal pain, nausea or vomiting Genitourinary Genitourinary: Denies dysuria Musculoskeletal Musculoskeletal: Denies joint pain or joint swelling Integumentary Integumentary: Denies rash or wounds Neurologic Neurologic: Denies focal weakness, numbness or tingling Psychiatric Psychiatric: Denies anxiety, auditory hallucinations, depression, homicidal ideation or suicidal ideation Vital Signs Vital Signs Vital Signs: 06/27/24 17:32 06/27/24 17:32 Temperature 96.7 F L Temperature Source Temporal Pulse Rate 61 70 Pulse Rhythm Regular Pulse Strength Normal (2+) Respiratory Rate 14 16 Respiratory Effort Normal Respiratory Depth Normal Blood Pressure 159/72 H Blood Pressure Mean 101 Blood Pressure Source Monitor Blood Pressure Position Semi-Fowlers Blood Pressure Location Right Forearm Pulse Ox 97 97 Oxygen Delivery Method Room Air Room Air Weight Weight: 81.647 kg Body Mass Index (BMI) 34.0 Physical Exam Const alert General Appearance: cooperative HEENT normocephalic Eyes PERRL and EOMs intact bilaterally Neck supple, no JVD and no carotid bruits Resp normal respiratory effort, normal air movement and clear to auscultation bilaterally Cardio regular rate and regular rhythm GI normal to inspection, nondistended, normoactive bowel sounds, non-tender and non-distended Extremity normal capillary refill Extremity Narrative: Left lower extremity immobilizer. General Extremity: Negative for edema Skin no rashes or lesions noted General Skin Exam: no breakdown Psych affect normal Appearance: appropriate Results Lab / Micro Data 06/28/24 07:20 06/28/24 07:20 Assessment & Plan Assessment/Plan (1) Debility: (2) Failed total left knee replacement: (3) Diabetes: (4) Essential (primary) hypertension: (5) Hyperlipemia: (6) Iron deficiency anemia: (7) GERD (gastroesophageal reflux disease): (8) Diabetic polyneuropathy: (9) Overactive bladder: (10) History of DVT (deep vein thrombosis): PLAN: Plan 73 year old female with below past medical history underwent revision left total knee to hinged mechanism, plastics rearrangement adjacent tissue 06/19/2024, admitted to TCU with debility, here for rehabilitation, strengthening, prior to discharge home with . * Debility - PT/OT. * Pain - Tylenol 1000mg q8, Oxycodone 5-10mg q4 prn. * Bowel - Miralax 17gm daily, senna/colace 2 tablets bid, Magnesium citrate 300ml po daily prn. * Adult immunization - Administer pneumonia vaccine, covid vaccine, flu vaccine as appropriate. * DVT prophylaxis - Eliquis 2.5mg bid. * History DVT - Eliquis 2.5mg bid. * Iron deficiency anemia - Ferrex 150m daily, Vitamin C 500mg daily. * Hyperlipidemia - Atorvastatin 5mg q48. * Vitamin D deficiency - D3 50mcg daily. * Vitamin B12 deficiency - B12 1000mcg daily. * ID - Doxycycline 100mg bid thru 09/18/2024. * Diabetes Mellitus II - Metformin 1000mg bidcm, Glimepiride 4mg bid, Jardiance 25mg daily. * Folic acid deficiency - Folic acid 1mg daily. * Hypertension - Losartan 50mg daily, HCTZ 12.5mg daily. * Hypothyroidism - Levothyroxine 100mcg daily. * Muscle spasm - Robaxin 500mg tid. * GERD - Pantoprazole 20mg daily. * Diabetic polyneuropathy - Lyrica 100mg tid. * Overactive bladder - Gemtesa 75mg daily.
[2024-06-28] MEDS: Acetaminophen 500 MG Tablet 1000 MG PO ×3 (06:08→21:10)
[2024-06-28] MEDS: Pregabalin 50 MG Capsule 100 MG PO ×3 (06:08→21:14)
[2024-06-28] MEDS: Levothyroxine 100 MCG Tablet PO (06:08)
[2024-06-28] MEDS: Methocarbamol 500 MG Tablet PO ×3 (06:08→21:08)
[2024-06-28 07:58] LABS: Absolute Lymphocyte Count 1.61 X10^3/uL (0.83-4.51); Basophil# 0.08 X10^3/uL; Basophil% 0.8 % (0-1); Eosinophil# 0.26 X10^3/uL; Eosinophils% 2.6 % (0-5); Hematocrit 31.2 % (37-47); Lymphocyte # 1.61 X10^3/ul (0.83-4.51); Lymphocyte % 15.9 % (19-41); Mean Corp Hgb Conc 32.1 g/dL (32-36); Mean Corpuscular Hgb 28.3 pg (27.0-32.0); Mean Corpuscular Volume 88.4 fL (81-99); Mean Platelet Vol. 9.4 fl (6.2-12.0); Monocyte# 0.96 X10^3/uL; Monocyte% 9.5 % (0-10); NRBC Flagged by Analyzer 0 % (0-5); Neutrophil # 7.03 X10^3/uL (2.7-7.7); Neutrophil % 69.2 % (47-70); Platelet Count 469 K/mm3 (150-450); RBC Distribution Width CV 15.3 % (11.6-14.6); RBC Distribution Width SD 49.1 fl (35.1-43.9); Red Blood Count 3.53 M/mm3 (4.2-5.4); White Blood Count 10.1 K/mm3 (4.4-11.0)
[2024-06-28 08:19] VITALS: BMI 35.2
[2024-06-28 08:20] LABS: Anion Gap 7 (5-15); BUN 13 mg/dL (7-18); BUN/Creat Ratio 20.1 RATIO (10-20); Calcium,Total 8.8 mg/dL (8.5-10.1); Chloride 106 mmol/L (98-107); Creatinine, Serum 0.65 mg/dL (0.55-1.02); EST Glomerular Filtration Rate 95 mL/min (>60); Est Glom Filt Rate - Afr Amer 115 mL/min (>60); Estimated Creatinine Clearance 58.84 ml/min; Glucose 123 mg/dL (74-106); Potassium 3.5 mmol/L (3.5-5.1); Sodium Level 140 mmol/L (136-145)
[2024-06-28] MEDS: Folic Acid 1 MG Tablet PO (09:21)
[2024-06-28] MEDS: Glimepiride 4 MG Tablet PO ×2 (09:21→16:45)
[2024-06-28] MEDS: metFORMIN (XR) 500 MG Tablet 1000 MG PO ×2 (09:21→16:45)
[2024-06-28] MEDS: APIXABAN 2.5 MG TABLET (WCH) PO ×2 (09:22→21:06)
[2024-06-28] MEDS: Vibegron 75 MG TABLET PO (09:22)
[2024-06-28] MEDS: Losartan Potassium 50 MG Tablet PO (09:22)
[2024-06-28] MEDS: Doxycycline 100 MG CAPSULE PO ×2 (09:22→21:06)
[2024-06-28] MEDS: Iron Polysaccharide Complex 150 MG CAPSULE PO (09:22)
[2024-06-28] MEDS: Pantoprazole Sodium 20 MG Tablet PO (09:23)
[2024-06-28] MEDS: Ascorbic Acid 500 MG Tablet PO (09:23)
[2024-06-28] MEDS: Cholecalciferol (VIT D3) 25 MCG TABLET (1,000 UNITS) 50 MCG PO (09:23)
[2024-06-28] MEDS: Cyanocobalamin 500 MCG Tablet 1000 MCG PO (09:23)
[2024-06-28] MEDS: hydroCHLOROthiazide 12.5mg 12.5 MG PO (09:23)
[2024-06-28] MEDS: Empagliflozin 25 MG Tablet PO (09:23)
[2024-06-28 09:49] VITALS: BMI 35.2
[2024-06-28] MEDS: Tuberculin,Purif.prot.deriv. 50 TU/ML Vial 0.1 ML ID (10:37)
[2024-06-28] MEDS: oxyCODONE 5 MG Tablet PO (10:38)
[2024-06-28 13:02] VITALS: BP 138/66; PULSE 73; RESP 16; TEMP 36.4; O2SAT 99
[2024-06-28] MEDS: Atorvastatin Calcium 10 MG Tablet 5 MG PO (21:07)
[2024-06-29] MEDS: Levothyroxine 100 MCG Tablet PO (05:28)
[2024-06-29] MEDS: Methocarbamol 500 MG Tablet PO ×3 (05:28→21:15)
[2024-06-29] MEDS: Acetaminophen 500 MG Tablet 1000 MG PO ×3 (05:28→21:16)
[2024-06-29] MEDS: Pregabalin 50 MG Capsule 100 MG PO ×3 (05:28→21:14)
[2024-06-29] MEDS: Glimepiride 4 MG Tablet PO ×2 (08:05→16:37)
[2024-06-29] MEDS: Folic Acid 1 MG Tablet PO (08:05)
[2024-06-29] MEDS: metFORMIN (XR) 500 MG Tablet 1000 MG PO ×2 (08:06→16:37)
[2024-06-29] MEDS: APIXABAN 2.5 MG TABLET (WCH) PO ×2 (08:09→21:15)
[2024-06-29] MEDS: Doxycycline 100 MG CAPSULE PO ×2 (08:09→21:14)
[2024-06-29] MEDS: Iron Polysaccharide Complex 150 MG CAPSULE PO (08:10)
[2024-06-29] MEDS: hydroCHLOROthiazide 12.5mg 12.5 MG PO (08:10)
[2024-06-29] MEDS: Losartan Potassium 50 MG Tablet PO (08:10)
[2024-06-29] MEDS: Ascorbic Acid 500 MG Tablet PO (08:11)
[2024-06-29] MEDS: Cyanocobalamin 500 MCG Tablet 1000 MCG PO (08:11)
[2024-06-29] MEDS: Pantoprazole Sodium 20 MG Tablet PO (08:11)
[2024-06-29] MEDS: Empagliflozin 25 MG Tablet PO (08:11)
[2024-06-29] MEDS: Cholecalciferol (VIT D3) 25 MCG TABLET (1,000 UNITS) 50 MCG PO (08:12)
[2024-06-29] MEDS: Vibegron 75 MG TABLET PO (10:03)
[2024-06-29] MEDS: oxyCODONE 5 MG Tablet PO (12:14)
[2024-06-29 15:06] VITALS: BP 136/58; PULSE 64; RESP 16; TEMP 36.4; O2SAT 96
[2024-06-30] MEDS: Pregabalin 50 MG Capsule 100 MG PO ×3 (05:30→20:39)
[2024-06-30] MEDS: Methocarbamol 500 MG Tablet PO ×3 (05:31→20:40)
[2024-06-30] MEDS: Levothyroxine 100 MCG Tablet PO (05:31)
[2024-06-30] MEDS: Acetaminophen 500 MG Tablet 1000 MG PO ×3 (05:31→20:40)
[2024-06-30 08:08] VITALS: BP 150/75; PULSE 80; RESP 17; TEMP 36.1; O2SAT 97
[2024-06-30] MEDS: Glimepiride 4 MG Tablet PO ×2 (08:10→17:25)
[2024-06-30] MEDS: Doxycycline 100 MG CAPSULE PO ×2 (08:11→20:40)
[2024-06-30] MEDS: Losartan Potassium 50 MG Tablet PO (08:11)
[2024-06-30] MEDS: metFORMIN (XR) 500 MG Tablet 1000 MG PO ×2 (08:11→17:25)
[2024-06-30] MEDS: Folic Acid 1 MG Tablet PO (08:11)
[2024-06-30] MEDS: hydroCHLOROthiazide 12.5mg 12.5 MG PO (08:12)
[2024-06-30] MEDS: Iron Polysaccharide Complex 150 MG CAPSULE PO (08:12)
[2024-06-30] MEDS: Vibegron 75 MG TABLET PO (08:12)
[2024-06-30] MEDS: Empagliflozin 25 MG Tablet PO (08:12)
[2024-06-30] MEDS: APIXABAN 2.5 MG TABLET (WCH) PO ×2 (08:12→20:40)
[2024-06-30] MEDS: Cyanocobalamin 500 MCG Tablet 1000 MCG PO (08:13)
[2024-06-30] MEDS: Cholecalciferol (VIT D3) 25 MCG TABLET (1,000 UNITS) 50 MCG PO (08:13)
[2024-06-30] MEDS: Ascorbic Acid 500 MG Tablet PO (08:13)
[2024-06-30] MEDS: Pantoprazole Sodium 20 MG Tablet PO (08:13)
--- NOTE | 2024-06-30 09:19 | PHA.CONS_ITS ---
Documented by User: Michael Rivera 06/30/24 09:52 TCU RX Drug Regimen Review Subjective/Objective Subjective/Objective: Subjective: TCU admission note. 73 year old female with below past medical history underwent revision left total knee to hinged mechanism, plastics darlene rrangement adjacent tissue 06/19/2024, admitted to TCU with debility, here for rehabilitation, strengthening, prior to discharge home with . Objective: Allergies latex Allergy (Severe, Verified 12/05/23 22:32) Other takes a layer of skin off shellfish derived Allergy (Severe, Verified 12/05/23 22:32) PASSED OUT, DIARRHEA adhesive Allergy (Mild, Verified 12/05/23 22:32) Rash levofloxacin Adverse Reaction (Intermediate, Verified 12/05/23 22:32) WEAK, NAUSEA povidone Adverse Reaction (Mild, Verified 12/05/23 22:32) Hives HIVES TO TOPICAL Current Medications Generic Name Dose Route Start Last Admin Trade Name Freq PRN Reason Stop Dose Admin Acetaminophen 1,000 mg 06/28/24 06:00 06/30/24 05:31 Acetaminophen 500 Mg Tablet PO 1,000 mg Q8 AMALIA Administration Apixaban 2.5 mg 06/27/24 22:00 06/30/24 08:12 Apixaban 2.5 Mg Tablet (Wch) PO 2.5 mg BID AMALIA Administration Ascorbic Acid 500 mg 06/28/24 10:00 06/30/24 08:13 Ascorbic Acid 500 Mg Tablet PO 500 mg DAILY AMALIA Administration Atorvastatin Calcium 5 mg 06/28/24 22:00 06/28/24 21:07 Atorvastatin Calcium 10 Mg Tablet PO 5 mg Q48H AMALIA Administration Cholecalciferol 50 mcg 06/28/24 10:00 06/30/24 08:13 Cholecalciferol (Vit D3) 25 Mcg Tablet (1,000 Units) PO 50 mcg DAILY AMALIA Administration Cyanocobalamin 1,000 mcg 06/28/24 10:00 06/30/24 08:13 Cyanocobalamin 500 Mcg Tablet PO 1,000 mcg DAILY AMALIA Administration Doxycycline Monohydrate 100 mg 06/27/24 22:00 06/30/24 08:11 Doxycycline 100 Mg Capsule PO 09/18/24 23:59 100 mg BID AMALIA Administration Empagliflozin 25 mg 06/28/24 10:00 06/30/24 08:12 Empagliflozin 25 Mg Tablet PO 25 mg DAILY [facility] Administration Folic Acid 1 mg 06/28/24 08:00 06/30/24 08:11 Folic Acid 1 Mg Tablet [facility] Administration Glimepiride 4 mg 06/28/24 08:00 06/30/24 08:10 Glimepiride 4 Mg Tablet PO 4 mg BIDCM [facility] Administration Hydrochlorothiazide 12.5 mg 06/28/24 10:00 06/30/24 08:12 Hydrochlorothiazide 12.5mg PO 12.5 mg DAILY [facility] Administration Protocol Levothyroxine Sodium 100 mcg 06/28/24 06:00 06/30/24 05:31 Levothyroxine 100 Mcg Tablet PO 100 mcg 0600 [facility] Administration Losartan Potassium 50 mg 06/28/24 10:00 06/30/24 08:11 Losartan Potassium 50 Mg Tablet PO 50 mg DAILY [facility] Administration Protocol Magnesium Citrate 300 ml 06/27/24 22:39 Magnesium Citrate 300 Ml PO DAILY PRN Constipation Metformin HCl 1,000 mg 06/28/24 08:00 06/30/24 08:11 Metformin (Xr) 500 Mg Tablet PO 1,000 mg BIDCM [facility] Administration Methocarbamol 500 mg 06/27/24 22:00 06/30/24 05:31 Methocarbamol 500 Mg Tablet PO 500 mg TID [facility] Administration Oxycodone HCl 5 - 10 mg 06/27/24 19:30 06/29/24 12:14 Oxycodone 5 Mg Tablet PO 10 mg Q4H PRN PRN Administration Pain Score 4-10 Pantoprazole Sodium 20 mg 06/28/24 10:00 06/30/24 08:13 Pantoprazole Sodium 20 Mg Tablet PO 20 mg DAILY [facility] Administration Polyethylene Glycol 17 gm 06/28/24 10:00 06/30/24 08:17 Polyethylene Glycol 3350 17 Gm Packet PO Not Given DAILY [facility] Polysaccharide Iron Complex 150 mg 06/28/24 10:00 06/30/24 08:12 Iron Polysaccharide Complex 150 Mg Capsule PO 150 mg DAILY [facility] Administration Pregabalin 100 mg 06/27/24 22:00 06/30/24 05:30 Pregabalin 50 Mg Capsule PO 100 mg TID [facility] Administration Senna/Docusate Sodium 2 tablet 06/28/24 10:00 06/30/24 08:17 Senna/Docusate Sodium 1 Tablet PO Not Given BID [facility] Tuberculin PPD 0.1 ml 07/05/24 10:00 Tuberculin,Purif.Prot.Deriv. 50 Tu/Ml Vial ID 07/05/24 10:01 X1 ONE Problem List Overactive bladder (Acute) Diabetic polyneuropathy (Acute) GERD (gastroesophageal reflux disease) (Acute) Iron deficiency anemia (Acute) Hyperlipemia (Acute) Essential (primary) hypertension (Acute) Failed total left knee replacement (Acute) Debility (Acute) History of DVT (deep vein thrombosis) (Chronic) Diabetes (Chronic) Vital Signs Temp Pulse Resp BP Pulse Ox O2 Del Method 97.0 F L 80 17 150/75 H 97 Room Air 06/30/24 08:08 06/30/24 08:08 06/30/24 08:08 06/30/24 08:08 06/30/24 08:08 06/30/24 08:08 Oxygen Delivery Method Room Air Weight: 84.686 kg Body Mass Index (BMI) 35.2 Sodium 140 mmol/L (136-145) 06/28/24 07:20 Potassium 3.5 mmol/L (3.5-5.1) 06/28/24 07:20 Chloride 106 mmol/L (98-107) 06/28/24 07:20 Carbon Dioxide 26.0 mmol/L (21.0-32.0) 06/28/24 07:20 Anion Gap 7 (5-15) 06/28/24 07:20 BUN 13 mg/dL (7-18) 06/28/24 07:20 Creatinine 0.65 mg/dL (0.55-1.02) 06/28/24 07:20 Est GFR (MDRD) Af Amer 115 mL/min (>60) 06/28/24 07:20 Est GFR (MDRD) Non-Af 95 mL/min (>60) 06/28/24 07:20 BUN/Creatinine Ratio 20.1 RATIO (10-20) H 06/28/24 07:20 Glucose 123 mg/dL (74-106) H 06/28/24 07:20 Assessment/Plan: 1. Pain: acetaminophen 1000 mg PO Q8, oxycodone 5 -10 mg Q4H PRN pain. The patient has required 2 doses of PRN oxycodone so far this admission. Please continue to monitor pain levels, PRN medication usage, LFTs (AST/ALT = 13/21 U/L on 09/21/22), constipation, respiratory depression, syncope/ataxia/falls, dizziness/drowsiness. 2. Bowel: polyethylene glycol 17 grams PO daily, senna/docusate 2 tablets PO BID, magnesium citrate 300 mL PO daily PRN constipation. The patient has not required any PRN doses of magnesium citrate so far this admission, the patient's last bowel movement was on 06/30/24. Please continue to monitor for bowel movements, for PRN medication usage, for constipation and diarrhea. 3. DVT prophylaxis/history of DVT: apixaban 2.5 mg PO BID. Please continue to monitor for s/s of a DVT such as pain/erythema/edema in an extremity, for bleeding/excessive bruising, hemoglobin levels (Hgb = 10.0 g/dL on 06/28/24), and platelet count (plt = 469 K/mm3 on 06/28/24). 4. Infectious disease: doxycycline 100 mg PO BID through 09/18/24. Please continue to monitor for s/s of infection including pain/redness/swelling of impacted joint, fever (temp = 97.0 F on 06/30/24), chills, WBC count (WBC = 10.1 K/mm3 on 06/28/24), for GI distress, and sun sensitivity. 5. Diabetes Mellitus II: metformin XR 1000 mg PO BID with meals, glimepiride 4 mg PO BID, empagliflozin 25 mg PO daily. Please continue to monitor blood sugars (BG =123 mg/dL on 06/28/24), hemoglobin A1C levels (A1C = 6.6% on 05/23/22), for GI distress with metformin administration, renal function (serum creatinine = 0.65 mg/dL with creatinine clearance ~ 59 mL/min on 06/28/24), for s/s of hypo/hyperglycemia, for s/s of a UTI and other genitourinary infections, and for s/s of dehydration. 6. Hyperlipidemia: atorvastatin 5 mg PO Q48H. Please continue to monitor lipid levels (cholesterol = 205 mg/dL with LDL = 120 mg/dL on 09/21/22), LFTs (AST/ALT = 13/21 U/L on 09/21/22), and for myalgias. Please consider ordering an annual lipid panel if clinically indicated. 7. Hypertension: losartan 50 mg PO daily, hydrochlorothiazide 12.5 mg PO daily. Please continue to monitor blood pressures (recent range = 136-159/58-75 mmHg), renal function (serum creatinine = 0.65 mg/dL with creatinine clearance ~ 59 mL/min on 06/28/24), potassium levels (K = 3.5 mmol/L on 06/28/24), for s/s of dehydration, and sodium levels (Na = 140 mmol/L on 06/28/24). The patient's blood pressures have mostly remained elevated over the last 2 days. If the patient's blood pressures remain elevated > 130 mmHg systolic, please consider increasing the patient's losartan to 75 mg PO daily. 8. Hypothyroidism: levothyroxine 100 mcg PO daily. Please continue to monitor for s/s of hypo/hyperthyroidism as well as thyroid hormone levels (TSH = 0.47 uIU/mL on 05/31/22). 9. GERD: pantoprazole 20 mg PO daily. Please continue to monitor for s/s of GERD, for diarrhea that could indicate clostridium difficile infection, and for s/s of bone resorption issues such as fracture. 10. Diabetic polyneuropathy: pregabalin 100 mg PO TID. Please continue to monitor for neuropathic pain, renal function (serum creatinine = 0.65 mg/dL with creatinine clearance ~ 59 mL/min on 06/28/24), for lower extremity edema, for dry mouth, dizziness and drowsiness. 11. Overactive bladder: vibegron 75 mg PO daily. Please continue to monitor for bladder spasms. 12. Muscle spasms: methocarbamol 500 mg PO TID. Please continue to monitor for muscle spasms, dizziness, drowsiness, confusion, sedation, and falls. 13. Iron deficiency anemia: iron polysaccharide 150 mg PO daily, ascorbic acid 500 mg PO daily. Please continue to monitor hemoglobin levels (Hgb = 10.0 g/dL on 06/28/24), iron levels (iron = 21 ug/dL on 10/12/21), and for GI distress with iron administration. 14. Vitamin D deficiency: cholecalciferol 50 mcg PO daily. Please continue to monitor for s/s of vitamin D deficiency and vitamin D levels (no recent vitamin D levels documented). Please consider obtaining a vitamin D level if clinically indicated. 15. Folic acid deficiency: folic acid 1 mg PO daily with a meal. Please continue to monitor for s/s of folic acid deficiency. 16. Vitamin B12 deficiency: cyanocobalamin 1000 mcg PO daily. Please continue to monitor for s/s of vitamin B12 deficiency. Assessment/Plan for indications treated with psychotropic medications: NA Medical chart and medication regimen reviewed. The following medication irregularities or issues were identified: 1. Hyperlipidemia: atorvastatin 5 mg PO Q48H. Please consider ordering an annual lipid panel if clinically indicated. 2. Hypertension: losartan 50 mg PO daily, hydrochlorothiazide 12.5 mg PO daily. The patient's blood pressures have mostly remained elevated over the last 2 days. If the patient's blood pressures remain elevated > 130 mmHg systolic, please consider increasing the patient's losartan to 75 mg PO daily. 3. Vitamin D deficiency: cholecalciferol 50 mcg PO daily. Please consider obtaining a vitamin D level if clinically indicated. Date Date of Note:: 06/30/24 Documented by User: Dr. Leo James MD 06/30/24 13:30 TCU RX Drug Regimen Review Provider Comments Provider responsibility Provider Comments to Recommendations by Pharmacy: Agree
[2024-06-30] MEDS: oxyCODONE 5 MG Tablet PO (11:35)
--- NOTE | 2024-06-30 12:45 | NURSING ---
Wet Plant Operator Note; Activity Asset: Bettina Juan is independent in her choice of daily activities. She will read, watch tv, enjoys visits from family, friends and jehovah's witness. She welcomes visits with the tube buffer and therapy dog when available. Staff will encourage group activities, remind her of weekly activities and respect her right to say no.
--- NOTE | 2024-06-30 12:49 | CHAPLAIN ---
Type of Pastoral Visit _x__ Initial Visit ___ Follow-up Visit ___ On-call Visit ___ General Patient Visit ___ Spiritual Assessment ___ Family Conference ___ Bereavement ___ Rapid Response ___ Code Blue ___ Other (describe below) Pastoral Care Referral From _x__ Patient ___ Family ___ Nurse ___ Physician ___ Hospice Volunteer Coordinator ___ Mysql Database Administrator ___ Other (describe below) Sacrament/Intervention _x__ Active listening ___ Anointing ___ Congregational ___ Bereavement ___ Communion _x__ Lauren exploration ___ ___ Life review _x__ Prayer ___ Reconciliation ___ Sacrament of Sick ___ Supportive presence ___ Wedding ___ Other (describe below) Pastoral Comments patient reviews her surgery history on her knee and the recent experience at [facility]; pt is pleased to be local now and in a good rehab; pt is hopeful that this will be a successful recovery and rehab; pt talks about her lauren and her new yazidism experience; spouse walks into room and into conversation; pt says that she needs patience but will remain hopeful; pt welcomes future visits; prayer given
[2024-06-30] MEDS: Atorvastatin Calcium 10 MG Tablet 5 MG PO (20:40)
[2024-07-01] MEDS: Pregabalin 50 MG Capsule 100 MG PO ×3 (05:49→21:26)
[2024-07-01] MEDS: Acetaminophen 500 MG Tablet 1000 MG PO ×3 (05:49→21:26)
[2024-07-01] MEDS: Levothyroxine 100 MCG Tablet PO (05:49)
[2024-07-01] MEDS: Methocarbamol 500 MG Tablet PO ×3 (05:50→21:26)
[2024-07-01 06:19] LABS: Cholesterol 98 mg/dL (200); High Density Lipoprotein 33 mg/dL; Triglycerides 144 mg/dL; Very Low Density Lipoprotein 29 mg/dL (5-40)
[2024-07-01] MEDS: Folic Acid 1 MG Tablet PO (08:01)
[2024-07-01] MEDS: metFORMIN (XR) 500 MG Tablet 1000 MG PO ×2 (08:01→16:42)
[2024-07-01] MEDS: Glimepiride 4 MG Tablet PO ×2 (08:01→16:43)
[2024-07-01] MEDS: Doxycycline 100 MG CAPSULE PO ×2 (08:02→21:27)
[2024-07-01] MEDS: APIXABAN 2.5 MG TABLET (WCH) PO ×2 (08:02→21:26)
[2024-07-01] MEDS: Iron Polysaccharide Complex 150 MG CAPSULE PO (08:02)
[2024-07-01] MEDS: Losartan Potassium 100 MG Tablet PO (08:02)
[2024-07-01] MEDS: hydroCHLOROthiazide 12.5mg 12.5 MG PO (08:02)
[2024-07-01] MEDS: Vibegron 75 MG TABLET PO (08:02)
[2024-07-01] MEDS: Empagliflozin 25 MG Tablet PO (08:03)
[2024-07-01] MEDS: Ascorbic Acid 500 MG Tablet PO (08:03)
[2024-07-01] MEDS: Cholecalciferol (VIT D3) 25 MCG TABLET (1,000 UNITS) 50 MCG PO (08:03)
[2024-07-01] MEDS: Cyanocobalamin 500 MCG Tablet 1000 MCG PO (08:03)
[2024-07-01] MEDS: Pantoprazole Sodium 20 MG Tablet PO (08:03)
[2024-07-01 08:08] VITALS: BMI 34.6
[2024-07-01 09:33] LABS: Vitamin D,25 Hydroxy 64.6 ng/mL
[2024-07-01 10:55] VITALS: BP 149/65; PULSE 71; RESP 16; TEMP 36.4; O2SAT 95
[2024-07-01] MEDS: oxyCODONE 5 MG Tablet PO (15:48)
--- NOTE | 2024-07-01 16:29 | CASEMGMT ---
Social Work SW met with patient to complete initial assessment. Introduced self and role. Verified/updated contacts. Patient confirmed code status as DNR-CCA, no intubation. Educated to [facility] insurance with NRD 07/02 and continued stay is not guaranteed with each review. pt's goal is to return home at [facility] with . See SW assessment for details. SW will continue to follow for DC planning. JOSÉ MIGUEL SamayoaW
[2024-07-01] MEDS: Menthol/Lanolin/Calamine/Znox 113 GM Tube 1 APPLIC TOPICAL (21:27)
[2024-07-02] MEDS: Methocarbamol 500 MG Tablet PO ×3 (06:27→20:55)
[2024-07-02] MEDS: Pregabalin 50 MG Capsule 100 MG PO ×3 (06:27→20:59)
[2024-07-02] MEDS: Levothyroxine 100 MCG Tablet PO (06:27)
[2024-07-02] MEDS: Acetaminophen 500 MG Tablet 1000 MG PO ×3 (06:27→20:55)
[2024-07-02] MEDS: Glimepiride 4 MG Tablet PO ×2 (09:52→16:40)
[2024-07-02] MEDS: Folic Acid 1 MG Tablet PO (09:52)
[2024-07-02] MEDS: APIXABAN 2.5 MG TABLET (WCH) PO ×2 (09:52→20:53)
[2024-07-02] MEDS: metFORMIN (XR) 500 MG Tablet 1000 MG PO ×2 (09:52→16:40)
[2024-07-02] MEDS: Pantoprazole Sodium 20 MG Tablet PO (09:53)
[2024-07-02] MEDS: Empagliflozin 25 MG Tablet PO (09:53)
[2024-07-02] MEDS: Ascorbic Acid 500 MG Tablet PO (09:53)
[2024-07-02] MEDS: Cyanocobalamin 500 MCG Tablet 1000 MCG PO (09:53)
[2024-07-02] MEDS: Cholecalciferol (VIT D3) 25 MCG TABLET (1,000 UNITS) 50 MCG PO (09:53)
[2024-07-02] MEDS: Vibegron 75 MG TABLET PO (09:54)
[2024-07-02] MEDS: hydroCHLOROthiazide 12.5mg 12.5 MG PO (09:54)
[2024-07-02] MEDS: Iron Polysaccharide Complex 150 MG CAPSULE PO (09:54)
[2024-07-02] MEDS: Menthol/Lanolin/Calamine/Znox 113 GM Tube 1 APPLIC TOPICAL ×2 (09:58→20:56)
[2024-07-02] MEDS: Doxycycline 100 MG CAPSULE PO ×2 (09:58→20:53)
[2024-07-02] MEDS: Losartan Potassium 100 MG Tablet PO (09:59)
[2024-07-02] MEDS: oxyCODONE 5 MG Tablet PO ×2 (10:01→14:34)
[2024-07-02] MEDS: Senna/Docusate Sodium 1 Tablet 2 TABLET PO (10:02)
--- NOTE | 2024-07-02 10:24 | CASEMGMT ---
Addendum entered by Vee Bedolla 07/02/24 10:31: Provided pt with written communication on insurance process and copay coverage during stay. Original Note: Social Work IDT met with patient and for care plan meeting. Discussed patient's progress in PT/OT/ST/SN. Educated to [facility] insurance with NRD 07/02 and continued stay is not guaranteed with each review; will update weekly until insurance issues DC or pt elects DC. Pt's goal is to return home with and he can assist. Wound vac comes off tomorrow and pt wears immobilizer AAT. SW will continue to follow for DC planning. Vee Bedolla, JOSÉ MIGUEL PALMERW
[2024-07-02 14:55] VITALS: BP 150/67; PULSE 70; RESP 16; TEMP 36.1; O2SAT 98
[2024-07-02 20:00] VITALS: PULSE 76; RESP 16; O2SAT 97
[2024-07-02] MEDS: Atorvastatin Calcium 10 MG Tablet 5 MG PO (20:54)
[2024-07-03 04:28] VITALS: RESP 16
[2024-07-03] MEDS: Levothyroxine 100 MCG Tablet PO (05:38)
[2024-07-03] MEDS: Pregabalin 50 MG Capsule 100 MG PO ×3 (05:38→21:34)
[2024-07-03] MEDS: Acetaminophen 500 MG Tablet 1000 MG PO ×2 (05:38→21:36)
[2024-07-03] MEDS: Methocarbamol 500 MG Tablet PO ×3 (05:38→21:35)
[2024-07-03] MEDS: Vibegron 75 MG TABLET PO (08:08)
[2024-07-03] MEDS: Pantoprazole Sodium 20 MG Tablet PO (08:08)
[2024-07-03] MEDS: Empagliflozin 25 MG Tablet PO (08:08)
[2024-07-03] MEDS: metFORMIN (XR) 500 MG Tablet 1000 MG PO ×2 (08:08→16:20)
[2024-07-03] MEDS: Losartan Potassium 100 MG Tablet PO (08:08)
[2024-07-03] MEDS: Doxycycline 100 MG CAPSULE PO ×2 (08:08→21:34)
[2024-07-03] MEDS: APIXABAN 2.5 MG TABLET (WCH) PO ×2 (08:08→21:35)
[2024-07-03] MEDS: Cyanocobalamin 500 MCG Tablet 1000 MCG PO (08:09)
[2024-07-03] MEDS: Ascorbic Acid 500 MG Tablet PO (08:09)
[2024-07-03] MEDS: Glimepiride 4 MG Tablet PO ×2 (08:09→16:20)
[2024-07-03] MEDS: hydroCHLOROthiazide 12.5mg 12.5 MG PO (08:09)
[2024-07-03] MEDS: Cholecalciferol (VIT D3) 25 MCG TABLET (1,000 UNITS) 50 MCG PO (08:09)
[2024-07-03] MEDS: Folic Acid 1 MG Tablet PO (08:09)
[2024-07-03] MEDS: Iron Polysaccharide Complex 150 MG CAPSULE PO (08:09)
[2024-07-03] MEDS: Menthol/Lanolin/Calamine/Znox 113 GM Tube 1 APPLIC TOPICAL ×2 (08:10→21:33)
--- NOTE | 2024-07-03 11:50 | NURSING ---
pt off unit to Dr desai.
[2024-07-03 12:16] VITALS: BP 155/56; PULSE 61; RESP 16; TEMP 36.6; O2SAT 97
--- NOTE | 2024-07-03 14:23 | MDS.RN ---
MDS pain interview complete.
--- NOTE | 2024-07-03 16:05 | NURSING ---
pt returned from Dr desai with new orders.
[2024-07-03] MEDS: oxyCODONE 5 MG Tablet PO (16:23)
[2024-07-04] MEDS: Levothyroxine 100 MCG Tablet PO (05:37)
[2024-07-04] MEDS: Methocarbamol 500 MG Tablet PO ×3 (05:37→21:05)
[2024-07-04] MEDS: Acetaminophen 500 MG Tablet 1000 MG PO ×3 (05:37→21:05)
[2024-07-04] MEDS: Pregabalin 50 MG Capsule 100 MG PO ×3 (05:37→21:04)
[2024-07-04 06:15] LABS: Absolute Lymphocyte Count 3.05 X10^3/uL (0.83-4.51); Absolute Neutrophil Count 8.9 X10^3/uL (2.0-7.7); Basophil# 0.13 X10^3/uL; Eosinophil# 0.26 X10^3/uL; Eosinophils% 1.9 % (0-5); Hematocrit 35.4 % (37-47); Hemoglobin 11.1 g/dL (12.0-15.0); Lymphocyte # 3.05 X10^3/ul (0.83-4.51); Lymphocyte % 22.4 % (19-41); Mean Corp Hgb Conc 31.4 g/dL (32-36); Mean Corpuscular Hgb 28.5 pg (27.0-32.0); Mean Platelet Vol. 9.4 fl (6.2-12.0); Monocyte# 1.15 X10^3/uL; Monocyte% 8.4 % (0-10); NRBC Flagged by Analyzer 0 % (0-5); Neutrophil # 8.89 X10^3/uL (2.7-7.7); Neutrophil % 65.3 % (47-70); Platelet Count 736 K/mm3 (150-450); RBC Distribution Width SD 55.8 fl (35.1-43.9); Red Blood Count 3.89 M/mm3 (4.2-5.4); White Blood Count 13.6 K/mm3 (4.4-11.0)
--- NOTE | 2024-07-04 07:30 | NURSING ---
Addendum entered by Phyllis De La Garza 07/04/24 08:48: Patient refused IM Glucagon. Patient states, I ate breakfast, drank a bunch of juice, and ate an orange. Patient states, I feel fine. BGT on recheck 109. Patient asymptomatic. Provided patient with s/sx of low glucose. Patient acknowledges. No further needs at this time. Call light within reach. Original Note: Updated Dr. James of critical glucose. New orders entered by Dr. James.
[2024-07-04 07:34] LABS: Anion Gap 6 (5-15); BUN 19 mg/dL (7-18); Calcium,Total 8.8 mg/dL (8.5-10.1); Chloride 110 mmol/L (98-107); Creatinine, Serum 0.83 mg/dL (0.55-1.02); EST Glomerular Filtration Rate 71 mL/min (>60); Est Glom Filt Rate - Afr Amer 86 mL/min (>60); Glucose 35 mg/dL (74-106); Potassium 3.1 mmol/L (3.5-5.1); Sodium Level 142 mmol/L (136-145)
[2024-07-04 08:32] VITALS: BP 144/68; PULSE 66; RESP 17; TEMP 36.1; O2SAT 98
[2024-07-04] MEDS: metFORMIN (XR) 500 MG Tablet 1000 MG PO ×2 (08:35→17:35)
[2024-07-04] MEDS: Potassium Chloride Oral Tablet 20 MEQ 40 MEQ PO (08:35)
[2024-07-04] MEDS: Folic Acid 1 MG Tablet PO (08:35)
[2024-07-04] MEDS: Menthol/Lanolin/Calamine/Znox 113 GM Tube 1 APPLIC TOPICAL ×2 (08:36→21:09)
[2024-07-04] MEDS: Doxycycline 100 MG CAPSULE PO ×2 (08:36→21:05)
[2024-07-04] MEDS: Losartan Potassium 100 MG Tablet PO (08:36)
[2024-07-04] MEDS: Iron Polysaccharide Complex 150 MG CAPSULE PO (08:37)
[2024-07-04] MEDS: Empagliflozin 25 MG Tablet PO (08:37)
[2024-07-04] MEDS: Pantoprazole Sodium 20 MG Tablet PO (08:37)
[2024-07-04] MEDS: hydroCHLOROthiazide 12.5mg 12.5 MG PO (08:37)
[2024-07-04] MEDS: APIXABAN 2.5 MG TABLET (WCH) PO ×2 (08:37→21:05)
[2024-07-04] MEDS: Vibegron 75 MG TABLET PO (08:37)
[2024-07-04] MEDS: Cholecalciferol (VIT D3) 25 MCG TABLET (1,000 UNITS) 50 MCG PO (08:38)
[2024-07-04] MEDS: Ascorbic Acid 500 MG Tablet PO (08:38)
[2024-07-04] MEDS: Cyanocobalamin 500 MCG Tablet 1000 MCG PO (08:38)
[2024-07-04 08:59] LABS: Bedside Glucose 109 mg/dL (74-106)
[2024-07-04 08:59] LABS: Bedside Glucose 34 mg/dL (74-106)
--- NOTE | 2024-07-04 09:27 | CASEMGMT ---
BIMS (13) and PHQ9 () interviews completed on this date for MDS assessment. SYDNIE Parmar
--- NOTE | 2024-07-04 12:43 | NURSING ---
Physician Assistant Note; MDS for 07/04/2024 Complete
[2024-07-04] MEDS: Glimepiride 2 MG Tablet PO (17:34)
[2024-07-04] MEDS: oxyCODONE 5 MG Tablet PO (21:05)
[2024-07-04] MEDS: Atorvastatin Calcium 10 MG Tablet 5 MG PO (21:05)
[2024-07-05] MEDS: Levothyroxine 100 MCG Tablet PO (05:49)
[2024-07-05] MEDS: Acetaminophen 500 MG Tablet 1000 MG PO ×3 (05:49→21:42)
[2024-07-05] MEDS: Methocarbamol 500 MG Tablet PO ×3 (05:49→21:42)
[2024-07-05] MEDS: Pregabalin 50 MG Capsule 100 MG PO ×3 (05:50→21:41)
[2024-07-05 06:31] LABS: Bedside Glucose 91 mg/dL (74-106)
[2024-07-05 07:16] LABS: Anion Gap 5 (5-15); BUN 17 mg/dL (7-18); BUN/Creat Ratio 21.4 RATIO (10-20); Calcium,Total 9.2 mg/dL (8.5-10.1); Chloride 106 mmol/L (98-107); EST Glomerular Filtration Rate 75 mL/min (>60); Est Glom Filt Rate - Afr Amer 90 mL/min (>60); Estimated Creatinine Clearance 59.45 ml/min; Glucose 106 mg/dL (74-106); Potassium 3.8 mmol/L (3.5-5.1); Sodium Level 137 mmol/L (136-145)
[2024-07-05] MEDS: Cyanocobalamin 500 MCG Tablet 1000 MCG PO (09:49)
[2024-07-05 09:50] VITALS: BP 145/66; PULSE 79; RESP 17; TEMP 36.6; O2SAT 97
[2024-07-05] MEDS: Cholecalciferol (VIT D3) 25 MCG TABLET (1,000 UNITS) 50 MCG PO (09:50)
[2024-07-05] MEDS: Ascorbic Acid 500 MG Tablet PO (09:50)
[2024-07-05] MEDS: Vibegron 75 MG TABLET PO (09:50)
[2024-07-05] MEDS: Empagliflozin 25 MG Tablet PO (09:50)
[2024-07-05] MEDS: Pantoprazole Sodium 20 MG Tablet PO (09:50)
[2024-07-05] MEDS: APIXABAN 2.5 MG TABLET (WCH) PO ×2 (09:50→21:41)
[2024-07-05] MEDS: metFORMIN (XR) 500 MG Tablet 1000 MG PO ×2 (09:50→17:09)
[2024-07-05] MEDS: Folic Acid 1 MG Tablet PO (09:51)
[2024-07-05] MEDS: Potassium Chloride Oral Tablet 20 MEQ PO (09:51)
[2024-07-05] MEDS: Iron Polysaccharide Complex 150 MG CAPSULE PO (09:52)
[2024-07-05] MEDS: Glimepiride 2 MG Tablet PO ×2 (09:52→17:09)
[2024-07-05] MEDS: hydroCHLOROthiazide 12.5mg 12.5 MG PO (09:52)
[2024-07-05] MEDS: Losartan Potassium 100 MG Tablet PO (09:52)
[2024-07-05] MEDS: Doxycycline 100 MG CAPSULE PO ×2 (09:55→21:41)
[2024-07-05] MEDS: Menthol/Lanolin/Calamine/Znox 113 GM Tube 1 APPLIC TOPICAL ×2 (09:56→21:45)
[2024-07-05] MEDS: Tuberculin,Purif.prot.deriv. 50 TU/ML Vial 0.1 ML ID (13:33)
[2024-07-06 06:29] LABS: Bedside Glucose 84 mg/dL (74-106)
[2024-07-06] MEDS: Pregabalin 50 MG Capsule 100 MG PO ×3 (06:35→21:15)
[2024-07-06] MEDS: Levothyroxine 100 MCG Tablet PO (06:36)
[2024-07-06] MEDS: Acetaminophen 500 MG Tablet 1000 MG PO ×3 (06:36→21:15)
[2024-07-06] MEDS: Methocarbamol 500 MG Tablet PO ×3 (06:36→21:15)
[2024-07-06] MEDS: Glimepiride 2 MG Tablet PO ×2 (08:32→17:37)
[2024-07-06] MEDS: metFORMIN (XR) 500 MG Tablet 1000 MG PO ×2 (08:32→17:36)
[2024-07-06] MEDS: Potassium Chloride Oral Tablet 20 MEQ PO (08:33)
[2024-07-06] MEDS: Ascorbic Acid 500 MG Tablet PO (08:33)
[2024-07-06] MEDS: Losartan Potassium 100 MG Tablet PO (08:33)
[2024-07-06] MEDS: Cyanocobalamin 500 MCG Tablet 1000 MCG PO (08:33)
[2024-07-06] MEDS: Empagliflozin 25 MG Tablet PO (08:34)
[2024-07-06] MEDS: Iron Polysaccharide Complex 150 MG CAPSULE PO (08:36)
[2024-07-06] MEDS: APIXABAN 2.5 MG TABLET (WCH) PO ×2 (08:36→21:16)
[2024-07-06] MEDS: Folic Acid 1 MG Tablet PO (08:36)
[2024-07-06] MEDS: Pantoprazole Sodium 20 MG Tablet PO (08:37)
[2024-07-06] MEDS: Vibegron 75 MG TABLET PO (08:37)
[2024-07-06] MEDS: Doxycycline 100 MG CAPSULE PO ×2 (08:38→21:16)
[2024-07-06] MEDS: hydroCHLOROthiazide 12.5mg 12.5 MG PO (08:38)
[2024-07-06] MEDS: Cholecalciferol (VIT D3) 25 MCG TABLET (1,000 UNITS) 50 MCG PO (08:39)
[2024-07-06] MEDS: Menthol/Lanolin/Calamine/Znox 113 GM Tube 1 APPLIC TOPICAL ×2 (08:43→21:16)
[2024-07-06 10:00] VITALS: PULSE 78; RESP 18
[2024-07-06 14:28] VITALS: BP 133/60; PULSE 70; RESP 14; TEMP 36.6; O2SAT 98
[2024-07-06] MEDS: Atorvastatin Calcium 10 MG Tablet 5 MG PO (21:15)
[2024-07-07] MEDS: Levothyroxine 100 MCG Tablet PO (05:26)
[2024-07-07] MEDS: Acetaminophen 500 MG Tablet 1000 MG PO ×3 (05:26→21:09)
[2024-07-07] MEDS: Pregabalin 50 MG Capsule 100 MG PO ×3 (05:26→21:14)
[2024-07-07] MEDS: Methocarbamol 500 MG Tablet PO ×3 (05:26→21:08)
[2024-07-07 06:27] LABS: Bedside Glucose 49 mg/dL (74-106)
[2024-07-07 06:50] LABS: Bedside Glucose 61 mg/dL (74-106)
--- NOTE | 2024-07-07 06:57 | NURSING ---
Pt blood sugar was 49 this AM, 4 oz orange juice given and BS rechecked and raised to 61. Stefania Doone's given per pt request, blood sugar rechecked 15 min later and was 68. Another 4 oz of orange juice given per pt request.
[2024-07-07 07:12] LABS: Bedside Glucose 68 mg/dL (74-106)
[2024-07-07] MEDS: metFORMIN (XR) 500 MG Tablet PO ×2 (08:25→16:05)
[2024-07-07] MEDS: Pantoprazole Sodium 20 MG Tablet PO (08:26)
[2024-07-07] MEDS: Potassium Chloride Oral Tablet 20 MEQ PO (08:26)
[2024-07-07] MEDS: Cyanocobalamin 500 MCG Tablet 1000 MCG PO (08:27)
[2024-07-07] MEDS: Folic Acid 1 MG Tablet PO (08:28)
[2024-07-07] MEDS: Ascorbic Acid 500 MG Tablet PO (08:28)
[2024-07-07] MEDS: hydroCHLOROthiazide 12.5mg 12.5 MG PO (08:29)
[2024-07-07] MEDS: Iron Polysaccharide Complex 150 MG CAPSULE PO (08:29)
[2024-07-07] MEDS: Doxycycline 100 MG CAPSULE PO ×2 (08:29→21:07)
[2024-07-07] MEDS: Empagliflozin 25 MG Tablet PO (08:30)
[2024-07-07] MEDS: Cholecalciferol (VIT D3) 25 MCG TABLET (1,000 UNITS) 50 MCG PO (08:30)
[2024-07-07] MEDS: APIXABAN 2.5 MG TABLET (WCH) PO ×2 (08:31→21:07)
[2024-07-07] MEDS: Vibegron 75 MG TABLET PO (08:31)
[2024-07-07] MEDS: Menthol/Lanolin/Calamine/Znox 113 GM Tube 1 APPLIC TOPICAL ×2 (08:37→21:06)
[2024-07-07] MEDS: Losartan Potassium 100 MG Tablet PO (08:42)
[2024-07-07] MEDS: Glimepiride 1 MG Tablet PO ×2 (08:44→16:06)
[2024-07-07 10:24] VITALS: RESP 16; O2SAT 97
[2024-07-07 15:12] VITALS: BP 121/61; PULSE 70; RESP 14; TEMP 36.9; O2SAT 98
[2024-07-07] MEDS: oxyCODONE 5 MG Tablet PO (16:14)
[2024-07-07 21:39] LABS: Bedside Glucose 105 mg/dL (74-106)
[2024-07-08 06:06] LABS: Bedside Glucose 113 mg/dL (74-106)
[2024-07-08] MEDS: Pregabalin 50 MG Capsule 100 MG PO ×3 (06:13→20:57)
[2024-07-08] MEDS: Acetaminophen 500 MG Tablet 1000 MG PO ×3 (06:13→20:55)
[2024-07-08] MEDS: Levothyroxine 100 MCG Tablet PO (06:13)
[2024-07-08] MEDS: Methocarbamol 500 MG Tablet PO ×3 (06:13→20:56)
[2024-07-08 08:00] VITALS: BMI 34.2
[2024-07-08] MEDS: Iron Polysaccharide Complex 150 MG CAPSULE PO (08:00)
[2024-07-08] MEDS: Glimepiride 1 MG Tablet PO ×2 (08:00→17:22)
[2024-07-08] MEDS: Vibegron 75 MG TABLET PO (08:00)
[2024-07-08] MEDS: Potassium Chloride Oral Tablet 20 MEQ PO (08:00)
[2024-07-08] MEDS: Folic Acid 1 MG Tablet PO (08:00)
[2024-07-08] MEDS: Doxycycline 100 MG CAPSULE PO ×2 (08:00→20:55)
[2024-07-08] MEDS: metFORMIN (XR) 500 MG Tablet PO ×2 (08:00→17:22)
[2024-07-08] MEDS: Cyanocobalamin 500 MCG Tablet 1000 MCG PO (08:00)
[2024-07-08] MEDS: Pantoprazole Sodium 20 MG Tablet PO (08:00)
[2024-07-08] MEDS: hydroCHLOROthiazide 12.5mg 12.5 MG PO (08:00)
[2024-07-08] MEDS: Empagliflozin 25 MG Tablet PO (08:00)
[2024-07-08] MEDS: Losartan Potassium 100 MG Tablet PO (08:00)
[2024-07-08] MEDS: APIXABAN 2.5 MG TABLET (WCH) PO ×2 (08:00→20:56)
[2024-07-08] MEDS: Menthol/Lanolin/Calamine/Znox 113 GM Tube 1 APPLIC TOPICAL ×2 (08:01→21:00)
[2024-07-08] MEDS: Ascorbic Acid 500 MG Tablet PO (08:01)
[2024-07-08] MEDS: Cholecalciferol (VIT D3) 25 MCG TABLET (1,000 UNITS) 50 MCG PO (08:01)
[2024-07-08 11:14] VITALS: BP 139/63; PULSE 70; RESP 16; TEMP 36.3; O2SAT 97
--- NOTE | 2024-07-08 13:45 | MDS.RN ---
Information for the MDS was obtained from review of the clinical record, interview of resident, staff, and direct observation of resident?s care.
[2024-07-08] MEDS: Atorvastatin Calcium 10 MG Tablet 5 MG PO (20:56)
[2024-07-09] MEDS: Methocarbamol 500 MG Tablet PO ×3 (05:34→21:39)
[2024-07-09] MEDS: Acetaminophen 500 MG Tablet 1000 MG PO ×3 (05:34→21:39)
[2024-07-09] MEDS: Pregabalin 50 MG Capsule 100 MG PO ×3 (05:35→21:38)
[2024-07-09] MEDS: Levothyroxine 100 MCG Tablet PO (05:35)
[2024-07-09 06:34] LABS: Bedside Glucose 122 mg/dL (74-106)
[2024-07-09 08:01] VITALS: BP 138/64; PULSE 68; RESP 16; TEMP 36.3; O2SAT 96
[2024-07-09] MEDS: Glimepiride 1 MG Tablet PO ×2 (08:04→17:38)
[2024-07-09] MEDS: Potassium Chloride Oral Tablet 20 MEQ PO (08:05)
[2024-07-09] MEDS: Folic Acid 1 MG Tablet PO (08:05)
[2024-07-09] MEDS: metFORMIN (XR) 500 MG Tablet PO ×2 (08:05→17:38)
[2024-07-09] MEDS: Menthol/Lanolin/Calamine/Znox 113 GM Tube 1 APPLIC TOPICAL ×2 (08:05→21:40)
[2024-07-09] MEDS: Losartan Potassium 100 MG Tablet PO (08:05)
[2024-07-09] MEDS: hydroCHLOROthiazide 12.5mg 12.5 MG PO (08:06)
[2024-07-09] MEDS: Iron Polysaccharide Complex 150 MG CAPSULE PO (08:06)
[2024-07-09] MEDS: Doxycycline 100 MG CAPSULE PO ×2 (08:06→21:39)
[2024-07-09] MEDS: APIXABAN 2.5 MG TABLET (WCH) PO ×2 (08:06→21:39)
[2024-07-09] MEDS: Vibegron 75 MG TABLET PO (08:06)
[2024-07-09] MEDS: Empagliflozin 25 MG Tablet PO (08:07)
[2024-07-09] MEDS: Cholecalciferol (VIT D3) 25 MCG TABLET (1,000 UNITS) 50 MCG PO (08:07)
[2024-07-09] MEDS: Ascorbic Acid 500 MG Tablet PO (08:07)
[2024-07-09] MEDS: Cyanocobalamin 500 MCG Tablet 1000 MCG PO (08:07)
[2024-07-09] MEDS: Pantoprazole Sodium 20 MG Tablet PO (08:07)
[2024-07-09] MEDS: oxyCODONE 5 MG Tablet PO (21:38)
[2024-07-10] MEDS: Methocarbamol 500 MG Tablet PO ×3 (05:34→21:09)
[2024-07-10] MEDS: Levothyroxine 100 MCG Tablet PO (05:34)
[2024-07-10] MEDS: Acetaminophen 500 MG Tablet 1000 MG PO ×3 (05:35→21:10)
[2024-07-10] MEDS: Pregabalin 50 MG Capsule 100 MG PO ×3 (05:35→21:13)
[2024-07-10 06:33] LABS: Bedside Glucose 118 mg/dL (74-106)
[2024-07-10 08:00] VITALS: BP 132/67; PULSE 76; RESP 16; TEMP 36.2; O2SAT 97
[2024-07-10] MEDS: Potassium Chloride Oral Tablet 20 MEQ PO (08:11)
[2024-07-10] MEDS: metFORMIN (XR) 500 MG Tablet PO ×2 (08:11→17:45)
[2024-07-10] MEDS: Vibegron 75 MG TABLET PO (08:12)
[2024-07-10] MEDS: Losartan Potassium 100 MG Tablet PO (08:12)
[2024-07-10] MEDS: Iron Polysaccharide Complex 150 MG CAPSULE PO (08:12)
[2024-07-10] MEDS: APIXABAN 2.5 MG TABLET (WCH) PO ×2 (08:12→21:08)
[2024-07-10] MEDS: Doxycycline 100 MG CAPSULE PO ×2 (08:12→21:07)
[2024-07-10] MEDS: hydroCHLOROthiazide 12.5mg 12.5 MG PO (08:13)
[2024-07-10] MEDS: Empagliflozin 25 MG Tablet PO (08:13)
[2024-07-10] MEDS: Pantoprazole Sodium 20 MG Tablet PO (08:13)
[2024-07-10] MEDS: Cyanocobalamin 500 MCG Tablet 1000 MCG PO (08:13)
[2024-07-10] MEDS: Cholecalciferol (VIT D3) 25 MCG TABLET (1,000 UNITS) 50 MCG PO (08:14)
[2024-07-10] MEDS: Ascorbic Acid 500 MG Tablet PO (08:14)
[2024-07-10] MEDS: Folic Acid 1 MG Tablet PO (08:15)
[2024-07-10] MEDS: Menthol/Lanolin/Calamine/Znox 113 GM Tube 1 APPLIC TOPICAL ×2 (10:26→21:06)
[2024-07-10] MEDS: Glimepiride 1 MG Tablet PO ×2 (10:26→17:45)
--- NOTE | 2024-07-10 15:49 | NURSING ---
Resident off floor at 1145 for appt via WC with . Returned 1530 with orders to continue 50% WB. Continue immobilizer when OOB, no ROM. New incision dressing orders entered. Next appt 07/24/24 @1300.
--- NOTE | 2024-07-10 16:55 | NURSING ---
called plastic surgeon in [place] this evening and patient has appt at 0815 on 07/11. to transport.
[2024-07-10] MEDS: Juven (unflavored) Packet 1 PACKET PO (17:45)
[2024-07-10 20:00] VITALS: PULSE 76; O2SAT 98
[2024-07-10] MEDS: Atorvastatin Calcium 10 MG Tablet 5 MG PO (21:08)
[2024-07-11] MEDS: Pregabalin 50 MG Capsule 100 MG PO ×3 (04:59→21:41)
[2024-07-11] MEDS: Acetaminophen 500 MG Tablet 1000 MG PO ×3 (05:00→21:37)
[2024-07-11] MEDS: Methocarbamol 500 MG Tablet PO ×3 (05:00→21:37)
[2024-07-11] MEDS: Levothyroxine 100 MCG Tablet PO (05:00)
[2024-07-11 05:25] LABS: Bedside Glucose 128 mg/dL (74-106)
--- NOTE | 2024-07-11 05:33 | NURSING ---
Patient did not want to take 0800 and 1000 meds before leaving for appoinment.
[2024-07-11 05:52] LABS: Absolute Neutrophil Count 5.6 X10^3/uL (2.0-7.7); Basophil# 0.08 X10^3/uL; Eosinophil# 0.27 X10^3/uL; Eosinophils% 3.2 % (0-5); Hematocrit 38.4 % (37-47); Hemoglobin 11.8 g/dL (12.0-15.0); Lymphocyte % 20.3 % (19-41); Mean Corp Hgb Conc 30.7 g/dL (32-36); Mean Corpuscular Hgb 27.8 pg (27.0-32.0); Mean Corpuscular Volume 90.6 fL (81-99); Mean Platelet Vol. 9.7 fl (6.2-12.0); Monocyte# 0.71 X10^3/uL; Monocyte% 8.5 % (0-10); NRBC Flagged by Analyzer 0 % (0-5); Neutrophil # 5.56 X10^3/uL (2.7-7.7); Neutrophil % 66.5 % (47-70); Platelet Count 550 K/mm3 (150-450); RBC Distribution Width CV 16.4 % (11.6-14.6); RBC Distribution Width SD 54.1 fl (35.1-43.9); Red Blood Count 4.24 M/mm3 (4.2-5.4); White Blood Count 8.4 K/mm3 (4.4-11.0)
--- NOTE | 2024-07-11 05:57 | NURSING ---
Patient left via wheelchair with for appointment at 0815 with plastic surgeon.
[2024-07-11 06:21] LABS: Anion Gap 6 (5-15); BUN 26 mg/dL (7-18); BUN/Creat Ratio 29.5 RATIO (10-20); Calcium,Total 9.6 mg/dL (8.5-10.1); Chloride 107 mmol/L (98-107); Creatinine, Serum 0.88 mg/dL (0.55-1.02); EST Glomerular Filtration Rate 66 mL/min (>60); Est Glom Filt Rate - Afr Amer 80 mL/min (>60); Estimated Creatinine Clearance 53.71 ml/min; Glucose 150 mg/dL (74-106); Potassium 4.1 mmol/L (3.5-5.1); Sodium Level 137 mmol/L (136-145)
[2024-07-11] MEDS: Juven (unflavored) Packet 1 PACKET PO ×2 (12:30→17:57)
[2024-07-11] MEDS: Empagliflozin 25 MG Tablet PO (12:31)
[2024-07-11] MEDS: Ascorbic Acid 500 MG Tablet PO (12:31)
[2024-07-11] MEDS: hydroCHLOROthiazide 12.5mg 12.5 MG PO (12:31)
[2024-07-11] MEDS: Potassium Chloride Oral Tablet 20 MEQ PO (12:31)
[2024-07-11] MEDS: Folic Acid 1 MG Tablet PO (12:31)
[2024-07-11] MEDS: APIXABAN 2.5 MG TABLET (WCH) PO ×2 (12:32→21:36)
[2024-07-11] MEDS: Vibegron 75 MG TABLET PO (12:32)
[2024-07-11] MEDS: Losartan Potassium 100 MG Tablet PO (12:32)
[2024-07-11] MEDS: Pantoprazole Sodium 20 MG Tablet PO (12:32)
[2024-07-11] MEDS: Cholecalciferol (VIT D3) 25 MCG TABLET (1,000 UNITS) 50 MCG PO (12:33)
[2024-07-11] MEDS: Doxycycline 100 MG CAPSULE PO ×2 (12:34→21:36)
[2024-07-11] MEDS: Glimepiride 1 MG Tablet PO ×2 (12:34→17:57)
[2024-07-11] MEDS: Cyanocobalamin 500 MCG Tablet 1000 MCG PO (12:34)
[2024-07-11] MEDS: metFORMIN (XR) 500 MG Tablet PO ×2 (12:35→17:57)
[2024-07-11] MEDS: Iron Polysaccharide Complex 150 MG CAPSULE PO (12:35)
[2024-07-11] MEDS: Menthol/Lanolin/Calamine/Znox 113 GM Tube 1 APPLIC TOPICAL ×2 (12:36→21:34)
[2024-07-11 15:08] VITALS: BP 155/75; PULSE 76; RESP 19; TEMP 36.1; O2SAT 99
[2024-07-11 18:02] VITALS: PULSE 82; RESP 16; O2SAT 97
[2024-07-12] MEDS: Levothyroxine 100 MCG Tablet PO (05:34)
[2024-07-12] MEDS: Methocarbamol 500 MG Tablet PO ×3 (05:34→21:25)
[2024-07-12] MEDS: Pregabalin 50 MG Capsule 100 MG PO ×3 (05:34→21:26)
[2024-07-12] MEDS: Acetaminophen 500 MG Tablet 1000 MG PO ×3 (05:35→21:26)
[2024-07-12 06:37] LABS: Bedside Glucose 96 mg/dL (74-106)
[2024-07-12] MEDS: metFORMIN (XR) 500 MG Tablet PO ×2 (08:18→17:19)
[2024-07-12] MEDS: Glimepiride 1 MG Tablet PO ×2 (08:18→17:19)
[2024-07-12] MEDS: Juven (unflavored) Packet 1 PACKET PO ×2 (08:18→17:19)
[2024-07-12] MEDS: Folic Acid 1 MG Tablet PO (08:18)
[2024-07-12] MEDS: Menthol/Lanolin/Calamine/Znox 113 GM Tube 1 APPLIC TOPICAL ×2 (08:19→21:28)
[2024-07-12] MEDS: Losartan Potassium 100 MG Tablet PO (08:19)
[2024-07-12] MEDS: Potassium Chloride Oral Tablet 20 MEQ PO (08:19)
[2024-07-12] MEDS: hydroCHLOROthiazide 12.5mg 12.5 MG PO (08:20)
[2024-07-12] MEDS: Iron Polysaccharide Complex 150 MG CAPSULE PO (08:20)
[2024-07-12] MEDS: Cyanocobalamin 500 MCG Tablet 1000 MCG PO (08:20)
[2024-07-12] MEDS: Doxycycline 100 MG CAPSULE PO ×2 (08:20→21:25)
[2024-07-12] MEDS: Ascorbic Acid 500 MG Tablet PO (08:20)
[2024-07-12] MEDS: Pantoprazole Sodium 20 MG Tablet PO (08:20)
[2024-07-12] MEDS: Vibegron 75 MG TABLET PO (08:20)
[2024-07-12] MEDS: APIXABAN 2.5 MG TABLET (WCH) PO ×2 (08:20→21:25)
[2024-07-12] MEDS: Cholecalciferol (VIT D3) 25 MCG TABLET (1,000 UNITS) 50 MCG PO (08:20)
[2024-07-12] MEDS: Empagliflozin 25 MG Tablet PO (08:20)
[2024-07-12 13:55] VITALS: BP 133/51; PULSE 69; RESP 16; TEMP 36.2; O2SAT 96
[2024-07-12] MEDS: oxyCODONE 5 MG Tablet PO (21:31)
[2024-07-12] MEDS: Atorvastatin Calcium 10 MG Tablet 5 MG PO (21:32)
[2024-07-13] MEDS: Levothyroxine 100 MCG Tablet PO (05:42)
[2024-07-13] MEDS: Pregabalin 50 MG Capsule 100 MG PO ×3 (05:42→21:53)
[2024-07-13] MEDS: Methocarbamol 500 MG Tablet PO ×3 (05:43→21:53)
[2024-07-13] MEDS: Acetaminophen 500 MG Tablet 1000 MG PO ×3 (05:43→21:52)
[2024-07-13 06:34] LABS: Bedside Glucose 147 mg/dL (74-106)
[2024-07-13] MEDS: Juven (unflavored) Packet 1 PACKET PO ×2 (08:01→17:32)
[2024-07-13] MEDS: Doxycycline 100 MG CAPSULE PO ×2 (08:01→21:52)
[2024-07-13] MEDS: Folic Acid 1 MG Tablet PO (08:01)
[2024-07-13] MEDS: Losartan Potassium 100 MG Tablet PO (08:01)
[2024-07-13] MEDS: Potassium Chloride Oral Tablet 20 MEQ PO (08:01)
[2024-07-13] MEDS: Glimepiride 1 MG Tablet PO ×2 (08:01→17:32)
[2024-07-13] MEDS: Iron Polysaccharide Complex 150 MG CAPSULE PO (08:01)
[2024-07-13] MEDS: metFORMIN (XR) 500 MG Tablet PO ×2 (08:01→17:32)
[2024-07-13] MEDS: Cholecalciferol (VIT D3) 25 MCG TABLET (1,000 UNITS) 50 MCG PO (08:02)
[2024-07-13] MEDS: Empagliflozin 25 MG Tablet PO (08:02)
[2024-07-13] MEDS: Pantoprazole Sodium 20 MG Tablet PO (08:02)
[2024-07-13] MEDS: hydroCHLOROthiazide 12.5mg 12.5 MG PO (08:02)
[2024-07-13] MEDS: Vibegron 75 MG TABLET PO (08:02)
[2024-07-13] MEDS: APIXABAN 2.5 MG TABLET (WCH) PO ×2 (08:02→21:52)
[2024-07-13] MEDS: Cyanocobalamin 500 MCG Tablet 1000 MCG PO (08:02)
[2024-07-13] MEDS: Ascorbic Acid 500 MG Tablet PO (08:03)
[2024-07-13] MEDS: Menthol/Lanolin/Calamine/Znox 113 GM Tube 1 APPLIC TOPICAL ×2 (08:03→21:51)
[2024-07-13 10:00] VITALS: BP 143/72; PULSE 72; RESP 18; TEMP 36.2; O2SAT 95
[2024-07-14] MEDS: Pregabalin 50 MG Capsule 100 MG PO ×3 (05:43→22:26)
[2024-07-14] MEDS: Levothyroxine 100 MCG Tablet PO (05:44)
[2024-07-14] MEDS: Acetaminophen 500 MG Tablet 1000 MG PO ×3 (05:44→22:27)
[2024-07-14] MEDS: Methocarbamol 500 MG Tablet PO ×3 (05:44→22:26)
[2024-07-14 06:43] LABS: Bedside Glucose 108 mg/dL (74-106)
[2024-07-14] MEDS: Iron Polysaccharide Complex 150 MG CAPSULE PO (08:46)
[2024-07-14] MEDS: Cholecalciferol (VIT D3) 25 MCG TABLET (1,000 UNITS) 50 MCG PO (08:46)
[2024-07-14] MEDS: Pantoprazole Sodium 20 MG Tablet PO (08:46)
[2024-07-14] MEDS: Vibegron 75 MG TABLET PO (08:46)
[2024-07-14] MEDS: Cyanocobalamin 500 MCG Tablet 1000 MCG PO (08:46)
[2024-07-14] MEDS: Losartan Potassium 100 MG Tablet PO (08:46)
[2024-07-14] MEDS: APIXABAN 2.5 MG TABLET (WCH) PO ×2 (08:46→22:27)
[2024-07-14] MEDS: Doxycycline 100 MG CAPSULE PO ×2 (08:46→22:26)
[2024-07-14] MEDS: Potassium Chloride Oral Tablet 20 MEQ PO (08:46)
[2024-07-14] MEDS: hydroCHLOROthiazide 12.5mg 12.5 MG PO (08:46)
[2024-07-14] MEDS: Folic Acid 1 MG Tablet PO (08:47)
[2024-07-14] MEDS: Glimepiride 1 MG Tablet PO ×2 (08:47→16:17)
[2024-07-14] MEDS: Ascorbic Acid 500 MG Tablet PO (08:47)
[2024-07-14] MEDS: metFORMIN (XR) 500 MG Tablet PO ×2 (08:47→16:18)
[2024-07-14] MEDS: Empagliflozin 25 MG Tablet PO (08:47)
[2024-07-14] MEDS: Juven (unflavored) Packet 1 PACKET PO ×2 (08:47→16:17)
[2024-07-14] MEDS: Menthol/Lanolin/Calamine/Znox 113 GM Tube 1 APPLIC TOPICAL ×2 (08:54→22:30)
[2024-07-14 14:30] VITALS: BP 126/53; PULSE 79; RESP 18; TEMP 36.3; O2SAT 97
[2024-07-14] MEDS: oxyCODONE 5 MG Tablet PO (20:12)
[2024-07-14] MEDS: Atorvastatin Calcium 10 MG Tablet 5 MG PO (22:28)
[2024-07-15] MEDS: Pregabalin 50 MG Capsule 100 MG PO ×3 (05:24→20:54)
[2024-07-15] MEDS: Methocarbamol 500 MG Tablet PO ×3 (05:25→20:56)
[2024-07-15] MEDS: Acetaminophen 500 MG Tablet 1000 MG PO ×3 (05:25→20:56)
[2024-07-15] MEDS: Levothyroxine 100 MCG Tablet PO (05:26)
[2024-07-15 06:35] LABS: Bedside Glucose 113 mg/dL (74-106)
[2024-07-15 08:00] VITALS: BMI 34.4
[2024-07-15 08:30] VITALS: BP 130/70; PULSE 73; RESP 16; TEMP 36.3; O2SAT 98
[2024-07-15 09:00] VITALS: BP 130/70
[2024-07-15] MEDS: Glimepiride 1 MG Tablet PO ×2 (09:12→16:39)
[2024-07-15] MEDS: APIXABAN 2.5 MG TABLET (WCH) PO ×2 (09:12→20:55)
[2024-07-15] MEDS: Losartan Potassium 100 MG Tablet PO (09:13)
[2024-07-15] MEDS: Folic Acid 1 MG Tablet PO (09:13)
[2024-07-15] MEDS: Doxycycline 100 MG CAPSULE PO ×2 (09:13→20:55)
[2024-07-15] MEDS: Cyanocobalamin 500 MCG Tablet 1000 MCG PO (09:13)
[2024-07-15] MEDS: Potassium Chloride Oral Tablet 20 MEQ PO (09:14)
[2024-07-15] MEDS: Ascorbic Acid 500 MG Tablet PO (09:14)
[2024-07-15] MEDS: metFORMIN (XR) 500 MG Tablet PO ×2 (09:14→16:39)
[2024-07-15] MEDS: Empagliflozin 25 MG Tablet PO (09:14)
[2024-07-15] MEDS: Iron Polysaccharide Complex 150 MG CAPSULE PO (09:14)
[2024-07-15] MEDS: hydroCHLOROthiazide 12.5mg 12.5 MG PO (09:14)
[2024-07-15] MEDS: Cholecalciferol (VIT D3) 25 MCG TABLET (1,000 UNITS) 50 MCG PO (09:14)
[2024-07-15] MEDS: Vibegron 75 MG TABLET PO (09:14)
[2024-07-15] MEDS: Pantoprazole Sodium 20 MG Tablet PO (09:14)
[2024-07-15] MEDS: Menthol/Lanolin/Calamine/Znox 113 GM Tube 1 APPLIC TOPICAL ×2 (09:20→20:53)
[2024-07-15] MEDS: Juven (unflavored) Packet 1 PACKET PO ×2 (09:34→16:39)
--- NOTE | 2024-07-15 15:58 | CASEMGMT ---
Addendum entered by Vee Bedolla 07/16/24 11:01: Pt provided first HHC choice as [facility]. Phoned referral. Original Note: Social Work SW met with patient at bedside to discuss DC planning. Pt expressed readiness to DC. Offered to set DC date. pt requesting DC 07/19. IDT agreed and recommending skilled HHC PT/OT/ST/SN. Pt agreed and has no preference for HHC agency. SW provided printed skilled HHC agency list including quality and resource data via [facility]. Pt to review list and notify this worker of choices. Pt has no DME needs and can transport. Plan: DC home with 07/19, HHC PT/OT/ST/SN [facility]OS[facility] MIGUEL [facility]
--- NOTE | 2024-07-15 19:04 | DS.PCM_ITS ---
Providers Date of Admission: 06/27/24 Primary Care Physician: Dr. Cherelle Thompson MD Reason For Visit: CONVERSION LEFT TOTAL KNEE TO HINGE Diagnosis Discharge Diagnosis (1) Debility: Status: Acute Code(s): R53.81 - Other malaise (2) Failed total left knee replacement: Status: Acute Code(s): T84.093A - Other mechanical complication of internal left knee prosthesis, initial encounter (3) Diabetes: Status: Chronic Code(s): E11.9 - Type 2 diabetes mellitus without complications (4) Essential (primary) hypertension: Status: Acute Code(s): I10 - Essential (primary) hypertension (5) Hyperlipemia: Status: Acute Code(s): E78.5 - Hyperlipidemia, unspecified (6) Iron deficiency anemia: Status: Acute Code(s): D50.9 - Iron deficiency anemia, unspecified (7) GERD (gastroesophageal reflux disease): Status: Acute Code(s): K21.9 - Gastro-esophageal reflux disease without esophagitis (8) Diabetic polyneuropathy: Status: Acute Code(s): E11.42 - Type 2 diabetes mellitus with diabetic polyneuropathy (9) Overactive bladder: Status: Acute Code(s): N32.81 - Overactive bladder (10) History of DVT (deep vein thrombosis): Status: Chronic Code(s): Z86.718 - Personal history of other venous thrombosis and embolism Plan 73 year old female with below past medical history underwent revision left total knee to hinged mechanism, plastics rearrangement adjacent tissue 06/19/2024, admitted to TCU with debility, here for rehabilitation, strengthening, prior to discharge home with . * Debility - PT/OT. * Pain - Tylenol 1000mg q8, Oxycodone 5-10mg q4 prn. * Bowel - Miralax 17gm daily, senna/colace 2 tablets bid, Magnesium citrate 300ml po daily prn. * Adult immunization - Administer pneumonia vaccine, covid vaccine, flu vaccine as appropriate. * DVT prophylaxis - Eliquis 2.5mg bid. * History DVT - Eliquis 2.5mg bid. * Iron deficiency anemia - Ferrex 150m daily, Vitamin C 500mg daily. * Hyperlipidemia - Atorvastatin 5mg q48. * Vitamin D deficiency - D3 50mcg daily. * Vitamin B12 deficiency - B12 1000mcg daily. * ID - Doxycycline 100mg bid thru 09/18/2024. * Diabetes Mellitus II - Metformin 1000mg bidcm, Glimepiride 4mg bid, Jardiance 25mg daily. * Folic acid deficiency - Folic acid 1mg daily. * Hypertension - Losartan 50mg daily, HCTZ 12.5mg daily. * Hypothyroidism - Levothyroxine 100mcg daily. * Muscle spasm - Robaxin 500mg tid. * GERD - Pantoprazole 20mg daily. * Diabetic polyneuropathy - Lyrica 100mg tid. * Overactive bladder - Gemtesa 75mg daily. Medications at Discharge Home Medications folic acid 1 mg tablet 1 mg PO DAILY supplement 10/13/13 atorvastatin 10 mg tablet 5 mg PO .QOD Cholesterol 09/06/21 cholecalciferol (vitamin D3) 50 mcg (2,000 unit) capsule 50 mcg PO DAILY supplement 09/06/21 glimepiride 4 mg tablet 4 mg PO BID blood sugar 09/06/21 ascorbic acid (vitamin C) 500 mg tablet (Vitamin C) 500 mg PO DAILY supplement 02/06/22 omeprazole magnesium 20 mg tablet,delayed release (Prilosec OTC) 20 mg PO DAILY GERD 02/06/22 dapagliflozin propanediol 5 mg tablet (Farxiga) 10 mg PO DAILY blood sugar 05/25/22 levothyroxine 125 mcg tablet 100 mcg PO DAILY thyroid 05/25/22 pregabalin 75 mg capsule (Lyrica) 100 mg PO TID pain 05/25/22 hydrochlorothiazide 12.5 mg tablet 12.5 mg PO DAILY Blood pressure 06/07/22 vibegron 75 mg tablet (Gemtesa) 75 mg PO DAILY Overactive bladder 12/04/22 apixaban 2.5 mg tablet 2.5 mg PO BID Anticoagulant 06/27/24 cyanocobalamin (vitamin B-12) 1,000 mcg capsule 1,000 mcg PO DAILY Supplement 06/27/24 metformin 500 mg tablet,extended release 24 hr 1,000 mg PO BID Diabetes 06/27/24 methocarbamol 500 mg tablet 500 mg PO TID Muscle spasms 06/27/24 polysaccharide iron complex 150 mg iron capsule (Ferrex) 150 mg PO DAILY Supplement 06/27/24 acetaminophen 500 mg tablet 1,000 mg (2 x 500 mg) PO Q8 #0 tabs 10/22/24 arginine 7 gram-glutam 7 gram-CaHMB 1.5 [id number]-min oral pwd pkt (Papa (with collagen)) 1 packet PO BIDCM 30 days #60 ea 07/15/24 doxycycline monohydrate 100 mg capsule 100 mg PO BID 60 days #120 caps 07/15/24 losartan 100 mg tablet 100 mg PO DAILY 30 days #30 tabs 07/15/24 oxycodone 5 mg tablet 5 - 10 mg (1 - 2 x 5 mg) PO Q4H PRN PRN Pain Score 4-10 7 days #84 tabs 07/15/24 potassium chloride 20 mEq tablet,extended release(part/cryst) 20 meq PO DAILYCM 30 days #30 tabs 07/15/24 sennosides 8.6 mg-docusate sodium 50 mg tablet (Stimulant Laxative Plus) 2 tab PO BID 30 days #120 tabs 07/15/24 Hospital Course Operations
--- NOTE | 2024-07-15 19:04 | PCM.DC.SUM ---
Providers Date of Admission: 06/27/24 Primary Care Physician: Dr. Cherelle Thompson MD Reason For Visit: CONVERSION LEFT TOTAL KNEE TO HINGE Diagnosis Discharge Diagnosis (1) Debility: Status: Acute Code(s): R53.81 - Other malaise (2) Failed total left knee replacement: Status: Acute Code(s): T84.093A - Other mechanical complication of internal left knee prosthesis, initial encounter (3) Diabetes: Status: Chronic Code(s): E11.9 - Type 2 diabetes mellitus without complications (4) Essential (primary) hypertension: Status: Acute Code(s): I10 - Essential (primary) hypertension (5) Hyperlipemia: Status: Acute Code(s): E78.5 - Hyperlipidemia, unspecified (6) Iron deficiency anemia: Status: Acute Code(s): D50.9 - Iron deficiency anemia, unspecified (7) GERD (gastroesophageal reflux disease): Status: Acute Code(s): K21.9 - Gastro-esophageal reflux disease without esophagitis (8) Diabetic polyneuropathy: Status: Acute Code(s): E11.42 - Type 2 diabetes mellitus with diabetic polyneuropathy (9) Overactive bladder: Status: Acute Code(s): N32.81 - Overactive bladder (10) History of DVT (deep vein thrombosis): Status: Chronic Code(s): Z86.718 - Personal history of other venous thrombosis and embolism Plan 73 year old female with below past medical history underwent revision left total knee to hinged mechanism, plastics rearrangement adjacent tissue 06/19/2024, admitted to TCU with debility, here for rehabilitation, strengthening, prior to discharge home with . Debility - PT/OT. Pain - Tylenol 1000mg q8, Oxycodone 5-10mg q4 prn. Bowel - Miralax 17gm daily, senna/colace 2 tablets bid, Magnesium citrate 300ml po daily prn. Adult immunization - Administer pneumonia vaccine, covid vaccine, flu vaccine as appropriate. DVT prophylaxis - Eliquis 2.5mg bid. History DVT - Eliquis 2.5mg bid. Iron deficiency anemia - Ferrex 150m daily, Vitamin C 500mg daily. Hyperlipidemia - Atorvastatin 5mg q48. Vitamin D deficiency - D3 50mcg daily. Vitamin B12 deficiency - B12 1000mcg daily. ID - Doxycycline 100mg bid thru 09/18/2024. Diabetes Mellitus II - Metformin 1000mg bidcm, Glimepiride 4mg bid, Jardiance 25mg daily. Folic acid deficiency - Folic acid 1mg daily. Hypertension - Losartan 50mg daily, HCTZ 12.5mg daily. Hypothyroidism - Levothyroxine 100mcg daily. Muscle spasm - Robaxin 500mg tid. GERD - Pantoprazole 20mg daily. Diabetic polyneuropathy - Lyrica 100mg tid. Overactive bladder - Gemtesa 75mg daily. Medications at Discharge Home Medications folic acid 1 mg tablet 1 mg PO DAILY supplement 10/13/13 atorvastatin 10 mg tablet 5 mg PO .QOD Cholesterol 09/06/21 cholecalciferol (vitamin D3) 50 mcg (2,000 unit) capsule 50 mcg PO DAILY supplement 09/06/21 glimepiride 4 mg tablet 4 mg PO BID blood sugar 09/06/21 ascorbic acid (vitamin C) 500 mg tablet (Vitamin C) 500 mg PO DAILY supplement 02/06/22 omeprazole magnesium 20 mg tablet,delayed release (Prilosec OTC) 20 mg PO DAILY GERD 02/06/22 dapagliflozin propanediol 5 mg tablet (Farxiga) 10 mg PO DAILY blood sugar 05/25/22 levothyroxine 125 mcg tablet 100 mcg PO DAILY thyroid 05/25/22 pregabalin 75 mg capsule (Lyrica) 100 mg PO TID pain 05/25/22 hydrochlorothiazide 12.5 mg tablet 12.5 mg PO DAILY Blood pressure 06/07/22 vibegron 75 mg tablet (Gemtesa) 75 mg PO DAILY Overactive bladder 12/04/22 apixaban 2.5 mg tablet 2.5 mg PO BID Anticoagulant 06/27/24 cyanocobalamin (vitamin B-12) 1,000 mcg capsule 1,000 mcg PO DAILY Supplement 06/27/24 metformin 500 mg tablet,extended release 24 hr 1,000 mg PO BID Diabetes 06/27/24 methocarbamol 500 mg tablet 500 mg PO TID Muscle spasms 06/27/24 polysaccharide iron complex 150 mg iron capsule (Ferrex) 150 mg PO DAILY Supplement 06/27/24 acetaminophen 500 mg tablet 1,000 mg (2 x 500 mg) PO Q8 #0 tabs 07/15/24 arginine 7 gram-glutam 7 gram-CaHMB 1.5 [id number]-[id number]-min oral pwd pkt (Papa (with collagen)) 1 packet PO BIDCM 30 days #60 ea 07/15/24 doxycycline monohydrate 100 mg capsule 100 mg PO BID 60 days #120 caps 07/15/24 losartan 100 mg tablet 100 mg PO DAILY 30 days #30 tabs 07/15/24 oxycodone 5 mg tablet 5 - 10 mg (1 - 2 x 5 mg) PO Q4H PRN PRN Pain Score 4-10 7 days #84 tabs 07/15/24 potassium chloride 20 mEq tablet,extended release(part/cryst) 20 meq PO DAILYCM 30 days #30 tabs 07/15/24 sennosides 8.6 mg-docusate sodium 50 mg tablet (Stimulant Laxative Plus) 2 tab PO BID 30 days #120 tabs 07/15/24 Hospital Course Operations - (See below.) Procedures None Summary of Care Provided Minutes Spent on Discharge: 35 Hospital Course: 73 year old female with below past medical history underwent revision left total knee to hinged mechanism, plastics rearrangement adjacent tissue 06/19/2024, admitted to TCU with debility, here for rehabilitation, strengthening, prior to discharge home with . Discharge home with 07/19/2024, [facility] PT/OT/ST/SN. Physical Exam Const alert General Appearance: cooperative HEENT normocephalic Eyes PERRL and EOMs intact bilaterally Neck supple, no JVD and no carotid bruits Resp normal respiratory effort, normal air movement and clear to auscultation bilaterally Cardio regular rate and regular rhythm GI normal to inspection, nondistended, normoactive bowel sounds, non-tender and non-distended Extremity normal capillary refill Extremity Narrative: Left lower extremity immobilizer. General Extremity: Negative for edema Skin no rashes or lesions noted General Skin Exam: no breakdown Psych affect normal Appearance: appropriate Weight / BMI Weight Weight: 82.645 kg Body Mass Index (BMI) 34.4 ABG / Lab / Microbiology Data 07/11/24 05:42 07/11/24 05:42 Laboratory: Laboratory Results - last 24 hr 07/15/24 06:13: POC Glucose 113 H Microbiology: Microbiology 07/08/24 06:17 Nasal Secretion SARS-CoV-2 Antigen (Rapid) - Final 10/08/24 05:53 Nasal Secretion SARS-CoV-2 Antigen (Rapid) - Final D/C Instructions Discharge Diet: No restrictions Discharge Activity: Return to Normal Activity, May Shower and Use Walker Weight Bearing Status: Weight bearing as tolerated Call your doctor if you observe: Fever of 101 or Higher, Inability to urinate, Inability to have a bowel movement, Shortness of breath, Dizziness, Fainting spells, Swelling in the ankles, Chest pain and Uncontrolled pain Additional Instructions: Discharge home with 07/19/2024, [facility] PT/OT/ST/SN. Please Follow Up With: John VARGHESE When: As scheduled. Meaningful Use Info Meaningful Use Meaningful Use Diagnoses (Choose all that apply): None applicable Ischemic Stroke Statin Dosing Therapy Reference: STATIN DOSE THERAPY REFERENCE: * Patients > 75 years receive moderate or high dose statin therapy. * Patients 75 years or YOUNGER should receive HIGH intensity statin dose unless contraindicated. You will be required to document reason for non-treatment if statin daily dose does not meet guidelines. HIGH DOSE STATIN THERAPY DAILY Atorvastatin > than or = to 40 mg Rosuvastatin > than or = to 20 mg Amlodipine + Atorvastatin > than or = to 2.5/40 mg Ezetimibe + Simvastatin 10/80 mg Simvastatin 80mg Discharge Plan Admission Admit Date/Time: 06/27/24 17:24 Primary Reason for Your Visit: Debility. Attending Provider: Leo James Chi Primary Care Provider: Cherelle Thompson Instructions Additional Instructions / Restrictions: Discharge home with 07/19/2024, [facility] PT/OT/ST/SN. Discharge Orders/Prescriptions Prescriptions: New acetaminophen 500 mg Tablet 1,000 mg PO Q8 Qty: 0 0RF doxycycline monohydrate 100 mg Capsule 100 mg PO BID 60 Days Qty: 120 0RF Papa (with collagen) 7-7-1.5 gram Powder In Packet 1 packet PO BIDCM 30 Days Qty: 60 0RF sennosides-docusate sodium [Stimulant Laxative Plus] 8.6-50 mg Tablet 2 tab PO BID 30 Days Qty: 120 0RF potassium chloride 20 mEq Tablet,Er Particles/Crystals 20 meq PO DAILYCM 30 Days Qty: 30 0RF losartan 100 mg Tablet 100 mg PO DAILY 30 Days Qty: 30 0RF oxycodone 5 mg Tablet 5 - 10 mg PO Q4H PRN PRN (Reason: Pain Score 4-10) 7 Days Qty: 84 0RF Continued cholecalciferol (vitamin D3) 50 mcg (2,000 unit) capsule 50 mcg PO DAILY glimepiride 4 mg tablet 4 mg PO BID levothyroxine 125 mcg tablet 100 mcg PO DAILY pregabalin [Lyrica] 75 mg capsule 100 mg PO TID Gemtesa 75 mg tablet 75 mg PO DAILY folic acid 1 MG tablet 1 mg PO DAILY Patient Comments: SUPPLEMENT atorvastatin 10 mg tablet 5 mg PO .QOD ascorbic acid (vitamin C) [Vitamin C] 500 mg Tablet 500 mg PO DAILY omeprazole magnesium [Prilosec OTC] 20 mg Tablet,Delayed Release (Dr/Ec) 20 mg PO DAILY dapagliflozin propanediol [Farxiga] 5 mg tablet 10 mg PO DAILY hydrochlorothiazide 12.5 mg tablet 12.5 mg PO DAILY apixaban 2.5 mg tablet 2.5 mg PO BID methocarbamol 500 mg tablet 500 mg PO TID cyanocobalamin (vitamin B-12) 1,000 mcg capsule 1,000 mcg PO DAILY metformin 500 mg tablet extended release 24 hr 1,000 mg PO BID polysaccharide iron complex [Ferrex 150] 150 mg iron capsule 150 mg PO DAILY Discontinued losartan-hydrochlorothiazide 1 EACH tablet 1 ea PO DAILY ferrous sulfate 325 mg (65 mg iron) Tablet 325 mg PO DAILY losartan 50 mg tablet 50 mg PO 1XD oxycodone 5 mg Tablet 5 - 10 mg PO Q4H PRN PRN (Reason: Pain Score 4-10) 5 Days Qty: 60 0RF Xarelto 10 mg Tablet 10 mg PO DAILY@0600 14 Days Qty: 14 0RF Rx Instructions: Take for 2 weeks postoperatively for DVT prophylaxis docusate sodium [Colace] 100 mg capsule 100 mg PO BID doxycycline hyclate 100 mg capsule 100 mg PO Q12H naloxone 4 mg/actuation spray,non-aerosol 4 mg intranasal Q3M PRN (Reason: opioid overdose) Rx Instructions: spray 1 dose into ONE nostril; alternate nostrils w each dose until help arrives pantoprazole 20 mg tablet,delayed release (DR/EC) 20 mg PO DAILY acetaminophen 500 mg Tablet 1,000 mg PO Q8 PRN (Reason: pain) Rx Instructions: Do not take more than 3000 mg Tylenol in a 24-hour period. Referrals / Follow Up: Hal Hale [Other] - 07/24/24 1:00 pm () MD Les [Other] - 08/01/24 11:00 am Cherelle Thompson MD [Primary Care Provider] - (Yessica will make this appointment) Disposition Disposition (needs filled in before D/C Order can be placed): Home Health Service
[2024-07-15 20:00] VITALS: PULSE 70; O2SAT 99
[2024-07-16 04:40] VITALS: PULSE 76; O2SAT 97
[2024-07-16] MEDS: Acetaminophen 500 MG Tablet 1000 MG PO ×3 (05:41→20:49)
[2024-07-16] MEDS: Levothyroxine 100 MCG Tablet PO (05:41)
[2024-07-16] MEDS: Pregabalin 50 MG Capsule 100 MG PO ×3 (05:41→20:47)
[2024-07-16] MEDS: Methocarbamol 500 MG Tablet PO ×3 (05:41→20:50)
[2024-07-16 06:50] LABS: Bedside Glucose 121 mg/dL (74-106)
[2024-07-16] MEDS: APIXABAN 2.5 MG TABLET (WCH) PO ×2 (07:57→20:51)
[2024-07-16] MEDS: hydroCHLOROthiazide 12.5mg 12.5 MG PO (07:57)
[2024-07-16] MEDS: Pantoprazole Sodium 20 MG Tablet PO (07:57)
[2024-07-16] MEDS: Potassium Chloride Oral Tablet 20 MEQ PO (07:58)
[2024-07-16] MEDS: Iron Polysaccharide Complex 150 MG CAPSULE PO (07:58)
[2024-07-16] MEDS: Cyanocobalamin 500 MCG Tablet 1000 MCG PO (07:58)
[2024-07-16] MEDS: metFORMIN (XR) 500 MG Tablet PO ×2 (07:58→18:15)
[2024-07-16] MEDS: Doxycycline 100 MG CAPSULE PO ×2 (07:59→20:52)
[2024-07-16] MEDS: Losartan Potassium 100 MG Tablet PO (07:59)
[2024-07-16] MEDS: Folic Acid 1 MG Tablet PO (07:59)
[2024-07-16] MEDS: Glimepiride 1 MG Tablet PO ×2 (07:59→18:16)
[2024-07-16] MEDS: Ascorbic Acid 500 MG Tablet PO (07:59)
[2024-07-16] MEDS: Vibegron 75 MG TABLET PO (07:59)
[2024-07-16] MEDS: Cholecalciferol (VIT D3) 25 MCG TABLET (1,000 UNITS) 50 MCG PO (07:59)
[2024-07-16] MEDS: Juven (unflavored) Packet 1 PACKET PO ×2 (08:00→18:15)
[2024-07-16] MEDS: Empagliflozin 25 MG Tablet PO (08:00)
[2024-07-16] MEDS: Menthol/Lanolin/Calamine/Znox 113 GM Tube 1 APPLIC TOPICAL ×2 (08:01→20:47)
[2024-07-16 08:10] VITALS: BP 147/64; PULSE 67
--- NOTE | 2024-07-16 10:23 | NURSING ---
Pt off unit went to Dr. Castro with .
--- NOTE | 2024-07-16 14:23 | CASEMGMT ---
BIMS () and PHQ9 (0) interviews completed on this date for MDS assessment. SYDNIE Parmar
--- NOTE | 2024-07-16 14:30 | NURSING ---
Pt returned from ortho appt. New order received for pt to f/u up with wound center. Referal faxed to wound center and they will contact pt to set up appt.
[2024-07-16 16:00] VITALS: BP 127/68; PULSE 66; RESP 18; TEMP 36.2; O2SAT 99
[2024-07-16] MEDS: Atorvastatin Calcium 10 MG Tablet 5 MG PO (20:51)
[2024-07-17] MEDS: Levothyroxine 100 MCG Tablet PO (05:51)
[2024-07-17] MEDS: Pregabalin 50 MG Capsule 100 MG PO ×3 (05:51→20:35)
[2024-07-17] MEDS: Methocarbamol 500 MG Tablet PO ×3 (05:52→20:36)
[2024-07-17] MEDS: Acetaminophen 500 MG Tablet 1000 MG PO ×3 (05:52→20:36)
[2024-07-17 06:32] LABS: Bedside Glucose 111 mg/dL (74-106)
[2024-07-17] MEDS: Cyanocobalamin 500 MCG Tablet 1000 MCG PO (08:12)
[2024-07-17] MEDS: Vibegron 75 MG TABLET PO (08:12)
[2024-07-17] MEDS: Pantoprazole Sodium 20 MG Tablet PO (08:12)
[2024-07-17] MEDS: Juven (unflavored) Packet 1 PACKET PO ×2 (08:12→16:55)
[2024-07-17] MEDS: Potassium Chloride Oral Tablet 20 MEQ PO (08:12)
[2024-07-17] MEDS: Losartan Potassium 100 MG Tablet PO (08:12)
[2024-07-17] MEDS: Cholecalciferol (VIT D3) 25 MCG TABLET (1,000 UNITS) 50 MCG PO (08:13)
[2024-07-17] MEDS: Ascorbic Acid 500 MG Tablet PO (08:13)
[2024-07-17] MEDS: APIXABAN 2.5 MG TABLET (WCH) PO ×2 (08:13→20:35)
[2024-07-17] MEDS: Iron Polysaccharide Complex 150 MG CAPSULE PO (08:13)
[2024-07-17] MEDS: Folic Acid 1 MG Tablet PO (08:13)
[2024-07-17] MEDS: Doxycycline 100 MG CAPSULE PO ×2 (08:13→20:34)
[2024-07-17] MEDS: hydroCHLOROthiazide 12.5mg 12.5 MG PO (08:13)
[2024-07-17] MEDS: Menthol/Lanolin/Calamine/Znox 113 GM Tube 1 APPLIC TOPICAL ×2 (08:13→20:39)
[2024-07-17] MEDS: Empagliflozin 25 MG Tablet PO (08:13)
[2024-07-17] MEDS: metFORMIN (XR) 500 MG Tablet PO ×2 (08:14→16:55)
[2024-07-17 08:15] VITALS: BP 142/68; PULSE 73; RESP 16; TEMP 36.3; O2SAT 100
[2024-07-17] MEDS: Glimepiride 1 MG Tablet PO ×2 (09:28→16:55)
[2024-07-17] MEDS: oxyCODONE 5 MG Tablet PO (13:25)
[2024-07-18 06:08] LABS: Absolute Lymphocyte Count 1.47 X10^3/uL (0.83-4.51); Absolute Neutrophil Count 4.2 X10^3/uL (2.0-7.7); Basophil# 0.07 X10^3/uL; Eosinophil# 0.37 X10^3/uL; Eosinophils% 5.4 % (0-5); Hematocrit 36.4 % (37-47); Hemoglobin 11.3 g/dL (12.0-15.0); Lymphocyte # 1.47 X10^3/ul (0.83-4.51); Lymphocyte % 21.4 % (19-41); Mean Corpuscular Hgb 28.7 pg (27.0-32.0); Mean Corpuscular Volume 92.4 fL (81-99); Mean Platelet Vol. 10.2 fl (6.2-12.0); Monocyte# 0.72 X10^3/uL; Monocyte% 10.5 % (0-10); NRBC Flagged by Analyzer 0 % (0-5); Neutrophil # 4.21 X10^3/uL (2.7-7.7); Neutrophil % 61.1 % (47-70); Platelet Count 291 K/mm3 (150-450); RBC Distribution Width CV 16.3 % (11.6-14.6); RBC Distribution Width SD 55.3 fl (35.1-43.9); Red Blood Count 3.94 M/mm3 (4.2-5.4); White Blood Count 6.9 K/mm3 (4.4-11.0)
[2024-07-18] MEDS: Pregabalin 50 MG Capsule 100 MG PO ×3 (06:40→22:12)
[2024-07-18] MEDS: Acetaminophen 500 MG Tablet 1000 MG PO ×3 (06:41→22:13)
[2024-07-18 06:42] LABS: Bedside Glucose 111 mg/dL (74-106)
[2024-07-18] MEDS: Methocarbamol 500 MG Tablet PO ×3 (06:43→22:15)
[2024-07-18] MEDS: Levothyroxine 100 MCG Tablet PO (06:44)
[2024-07-18 06:47] LABS: Anion Gap 5 (5-15); BUN 33 mg/dL (7-18); BUN/Creat Ratio 30.8 RATIO (10-20); Calcium,Total 9.2 mg/dL (8.5-10.1); Chloride 109 mmol/L (98-107); Creatinine, Serum 1.07 mg/dL (0.55-1.02); EST Glomerular Filtration Rate 53 mL/min (>60); Est Glom Filt Rate - Afr Amer 64 mL/min (>60); Estimated Creatinine Clearance 44.28 ml/min; Glucose 123 mg/dL (74-106); Potassium 3.9 mmol/L (3.5-5.1); Sodium Level 140 mmol/L (136-145)
[2024-07-18 08:10] VITALS: BP 139/60; PULSE 75; RESP 16; TEMP 36.1; O2SAT 98
[2024-07-18] MEDS: Folic Acid 1 MG Tablet PO (08:13)
[2024-07-18] MEDS: Glimepiride 1 MG Tablet PO ×2 (08:13→17:38)
[2024-07-18] MEDS: metFORMIN (XR) 500 MG Tablet PO ×2 (08:14→17:38)
[2024-07-18] MEDS: Menthol/Lanolin/Calamine/Znox 113 GM Tube 1 APPLIC TOPICAL ×2 (08:14→22:17)
[2024-07-18] MEDS: Juven (unflavored) Packet 1 PACKET PO ×2 (08:14→17:38)
[2024-07-18] MEDS: Potassium Chloride Oral Tablet 20 MEQ PO (08:14)
[2024-07-18] MEDS: Losartan Potassium 100 MG Tablet PO (08:15)
[2024-07-18] MEDS: APIXABAN 2.5 MG TABLET (WCH) PO ×2 (08:15→22:13)
[2024-07-18] MEDS: Iron Polysaccharide Complex 150 MG CAPSULE PO (08:15)
[2024-07-18] MEDS: Doxycycline 100 MG CAPSULE PO ×2 (08:15→22:16)
[2024-07-18] MEDS: Pantoprazole Sodium 20 MG Tablet PO (08:16)
[2024-07-18] MEDS: Ascorbic Acid 500 MG Tablet PO (08:16)
[2024-07-18] MEDS: Empagliflozin 25 MG Tablet PO (08:16)
[2024-07-18] MEDS: Vibegron 75 MG TABLET PO (08:16)
[2024-07-18] MEDS: Cholecalciferol (VIT D3) 25 MCG TABLET (1,000 UNITS) 50 MCG PO (08:16)
[2024-07-18] MEDS: hydroCHLOROthiazide 12.5mg 12.5 MG PO (08:16)
[2024-07-18] MEDS: Cyanocobalamin 500 MCG Tablet 1000 MCG PO (08:16)
--- NOTE | 2024-07-18 13:03 | NURSING ---
reported that wound center received referral and called him to set up appt.
--- NOTE | 2024-07-18 16:35 | NURSING ---
Patient dressing change ordered daily. Patient's home health nurse will not see patient until Sunday. RN completed dressing change with patient and spouse and instructed on how to do so. RN provided patient and spouse with supplies and copy of dressing change order. RN suggested to observe another dressing change before patient is discharged tomorrow. Patient and spouse acknowledge. No further questions/concerns. Call light within reach.
[2024-07-18] MEDS: Atorvastatin Calcium 10 MG Tablet 5 MG PO (22:14)
[2024-07-19] MEDS: Pregabalin 50 MG Capsule 100 MG PO (06:46)
[2024-07-19] MEDS: Methocarbamol 500 MG Tablet PO (06:47)
[2024-07-19] MEDS: Levothyroxine 100 MCG Tablet PO (06:47)
[2024-07-19] MEDS: Acetaminophen 500 MG Tablet 1000 MG PO (06:47)
[2024-07-19 06:57] VITALS: PULSE 68; RESP 16
[2024-07-19 07:21] LABS: Bedside Glucose 105 mg/dL (74-106)
[2024-07-19] MEDS: Juven (unflavored) Packet 1 PACKET PO (09:19)
[2024-07-19] MEDS: Ascorbic Acid 500 MG Tablet PO (09:19)
[2024-07-19] MEDS: Potassium Chloride Oral Tablet 20 MEQ PO (09:19)
[2024-07-19] MEDS: Cholecalciferol (VIT D3) 25 MCG TABLET (1,000 UNITS) 50 MCG PO (09:20)
[2024-07-19] MEDS: Folic Acid 1 MG Tablet PO (09:20)
[2024-07-19] MEDS: Glimepiride 1 MG Tablet PO (09:21)
[2024-07-19] MEDS: Pantoprazole Sodium 20 MG Tablet PO (09:21)
[2024-07-19] MEDS: metFORMIN (XR) 500 MG Tablet PO (09:21)
[2024-07-19] MEDS: Doxycycline 100 MG CAPSULE PO (09:22)
[2024-07-19] MEDS: Iron Polysaccharide Complex 150 MG CAPSULE PO (09:22)
[2024-07-19] MEDS: Cyanocobalamin 500 MCG Tablet 1000 MCG PO (09:22)
[2024-07-19] MEDS: Losartan Potassium 100 MG Tablet PO (09:23)
[2024-07-19] MEDS: APIXABAN 2.5 MG TABLET (WCH) PO (09:23)
[2024-07-19] MEDS: Vibegron 75 MG TABLET PO (09:24)
[2024-07-19] MEDS: hydroCHLOROthiazide 12.5mg 12.5 MG PO (09:25)
[2024-07-19] MEDS: Empagliflozin 25 MG Tablet PO (09:26)
== END 2024-07-19 12:16 | disposition home health service (06) | DRG 561 ==
PROVIDERS: Admitting Provider Family Medicine Geriatric Medicine; PCP Internal Medicine; Referring Provider Family Medicine Geriatric Medicine; Visit Provider Family Medicine Geriatric Medicine
DX: Z47.1 Aftercare following joint replacement surgery (principal); E11.42 Type 2 diabetes mellitus with diabetic polyneuropathy; D50.9 Iron deficiency anemia, unspecified; E53.8 Deficiency of other specified B group vitamins; E55.9 Vitamin D deficiency, unspecified; M06.9 Rheumatoid arthritis, unspecified; I10 Essential (primary) hypertension; E89.0 Postprocedural hypothyroidism; E78.5 Hyperlipidemia, unspecified; K21.9 Gastro-esophageal reflux disease without esophagitis; M62.838 Other muscle spasm; T84.093D Other mechanical complication of internal left knee prosthesis, subsequent encounter; Z79.890 Hormone replacement therapy; Z79.01 Long term (current) use of anticoagulants; N32.81 Overactive bladder; Z79.84 Long term (current) use of oral hypoglycemic drugs; Z96.652 Presence of left artificial knee joint; Z79.899 Other long term (current) drug therapy; Z86.718 Personal history of other venous thrombosis and embolism; Y79.2 Prosthetic and other implants, materials and accessory orthopedic devices associated with adverse incidents
CPT/HCPCS: 36415; 80048; 80061; 82306; 82962; 85025; 87811; 92507; 92523; 97110; 97116; 97129; 97130; 97162; 97166; 97530; 97535; 97802

== ENCOUNTER 2024-07-22 12:57 | Outpatient (RCR) | payer MEDICARE, SELFPAY ==
[2024-07-22 13:20] VITALS: BP 107/87; PULSE 83; RESP 18; TEMP 36.2; BMI 34.1
--- NOTE | 2024-07-22 20:48 | HP.PCM_ITS ---
History of Present Illness Date of Service: 07/22/24 Chief Complaint: Dehiscent, necrotic surgical wound of the left knee History of Wound: This is a 73-year-old female with a history of left total knee replacement many years ago, which has required several revisions. The most recent revision was performed on June 19, 2024, at the [facility]. This was the fourth left knee revision. Prior revisions required flap reconstruction, and the Plastic Surgery service was involved in the patient's most recent surgery. Postoperatively, the patient has been placed on oral doxycycline, which is expected to continue for 3 months. The patient's left lower extremity was locked in extension for 2 weeks. She is now partial weightbearing on the involved limb. She was admitted to the Transitional Care Unit at [facility] for several weeks postoperatively on June 27, 2024. She has now returned to home, with program support assistant care from her . The patient has developed a surgical wound dehiscence and marjorie necrosis and gangrene at the site of her incision. A wound VAC was used initially at the surgical site, but the patient has been using Xeroform more recently. The patient suffers from multiple pre-existing medical conditions, listed herein. She does not smoke. She is using Papa as a nutritional supplement. Her BMI is 34.1. [facility] Medical History Gangrene associated with type 2 diabetes mellitus Dehiscence of incision History of revision of total replacement of left knee joint Wears glasses Alcohol use History of steroid therapy Bladder disease Neuropathy Back pain Dietary restriction History of pain when walking Pain Myasthenia gravis Ambulates with cane Rheumatoid arthritis Low iron History of DVT (deep vein thrombosis) Hyperlipemia Difficulty swallowing History of hiatal hernia Gastric reflux Non-smoker Shortness of breath on exertion Chronic cough PONV (postoperative nausea and vomiting) Leg cramps History of edema History of stress test Hypertension Thyroid disease Cataracts, bilateral History of UTI Arthritis Home Medications ?Medication ?Instructions ?Recorded ?Last Taken ?Type folic acid 1 mg tablet 1 mg PO DAILY supplement 10/13/13 06/06/22 History atorvastatin 10 mg tablet 5 mg PO .QOD Cholesterol 09/06/21 06/26/24 18:45 History cholecalciferol (vitamin D3) 50 50 mcg PO DAILY supplement 09/06/21 06/27/24 History mcg (2,000 unit) capsule glimepiride 4 mg tablet 4 mg PO BID blood sugar 09/06/21 06/27/24 History ascorbic acid (vitamin C) 500 mg 500 mg PO DAILY supplement 02/06/22 06/27/24 History tablet (Vitamin C) omeprazole magnesium 20 mg 20 mg PO DAILY GERD 02/06/22 06/06/22 History tablet,delayed release (Prilosec OTC) dapagliflozin propanediol 5 mg 10 mg PO DAILY blood sugar 05/25/22 06/06/22 History tablet (Farxiga) levothyroxine 125 mcg tablet 100 mcg PO DAILY thyroid 05/25/22 06/27/24 History pregabalin 75 mg capsule (Lyrica) 100 mg PO TID pain 05/25/22 06/06/22 History hydrochlorothiazide 12.5 mg tablet 12.5 mg PO DAILY Blood pressure 06/07/22 Unknown History vibegron 75 mg tablet (Gemtesa) 75 mg PO DAILY Overactive bladder 12/04/22 Unknown History apixaban 2.5 mg tablet 2.5 mg PO BID Anticoagulant 06/27/24 06/27/24 08:45 History cyanocobalamin (vitamin B-12) 1,000 mcg PO DAILY Supplement 06/27/24 Unknown History 1,000 mcg capsule metformin 500 mg tablet,extended 1,000 mg PO BID Diabetes 06/27/24 06/27/24 05:30 History release 24 hr methocarbamol 500 mg tablet 500 mg PO TID Muscle spasms 06/27/24 06/27/24 08:45 History polysaccharide iron complex 150 mg 150 mg PO DAILY Supplement 06/27/24 Unknown History iron capsule (Ferrex) acetaminophen 500 mg tablet 1,000 mg (2 x 500 mg) PO Q8 #0 tabs 07/15/24 Unknown Rx arginine 7 gram-glutam 7 1 packet PO BIDCM 30 days #60 ea 07/15/24 Unknown Rx gram-CaHMB 1.5 [id number] oral pwd pkt (Papa (with collagen)) doxycycline monohydrate 100 mg 100 mg PO BID 60 days #120 caps 07/15/24 Unknown Rx capsule losartan 100 mg tablet 100 mg PO DAILY 30 days #30 tabs 07/15/24 Unknown Rx oxycodone 5 mg tablet 5 - 10 mg (1 - 2 x 5 mg) PO Q4H 07/15/24 Unknown Rx PRN PRN Pain Score 4-10 7 days #84 tabs potassium chloride 20 mEq 20 meq PO DAILYCM 30 days #30 tabs 07/15/24 Unknown Rx tablet,extended release(part/cryst) sennosides 8.6 mg-docusate sodium 2 tab PO BID 30 days #120 tabs 07/15/24 Unknown Rx 50 mg tablet (Stimulant Laxative Plus) Allergy/AdvReac Type Severity Reaction Status Date / Time latex Allergy Severe Other Verified 12/05/23 22:32 shellfish derived Allergy Severe PASSED Verified 12/05/23 22:32 OUT, DIARRHEA adhesive Allergy Mild Rash Verified 12/05/23 22:32 levofloxacin AdvReac Intermediate WEAK, Verified 12/05/23 22:32 NAUSEA povidone AdvReac Mild Hives Verified 12/05/23 22:32 Surgical History History of bilateral cataract extraction History of colonoscopy S/P insertion of spinal cord stimulator History of partial thyroidectomy History of appendectomy History of left knee surgery History of hysterectomy History of cholecystectomy Social History household members: spouse Smoking Status: Never smoker Electronic Cigarette Use: not used second hand exposure: No alcohol intake: current alcohol intake frequency: a few times a month Alcohol type: wine substance use type: does not use Vital Signs Vital Signs Vital Signs: 07/22/24 13:20 Temperature 97.1 F L Temperature Source Temporal Pulse Rate 83 Respiratory Rate 18 Blood Pressure 107/87 H Blood Pressure Mean 93 Blood Pressure Source Monitor Blood Pressure Position Sitting Blood Pressure Location Right Arm Weight Weight: 180 lb 13.313 oz Body Mass Index (BMI) 34.1 Physical Exam Const alert, oriented x3, no apparent distress, no limitations, healthy appearing and well nourished Constitutional Narrative: The patient's BMI is 34.1. General Appearance: cooperative, comfortable, well kempt and well developed Orientation / Consciousness: awake, oriented to person, oriented to place and oriented to time Exam Limitations: no limitations HEENT normocephalic and head/scalp atraumatic Head and Scalp: normal to inspection, normocephalic and atraumatic Face and Sinus: normal facial exam Nose: external nose normal External Ear: external ears normal Eyes EOMs intact bilaterally General Eye: normal appearance of both eyes Neck full ROM Chest inspection of chest normal Resp normal respiratory effort, normal air movement, no retractions, no use of accessory muscles and clear to auscultation bilaterally Effort and Inspection: able to speak in complete sentences Cardio regular rate, regular rhythm, S1 normal heart sound and S2 normal heart sound Extremity no calf tenderness General Extremity: Negative for clubbing or cyanosis Skin Wound Narrative: A longitudinal incision is noted overlying the left knee. There is a large amount of nonviable, necrotic, gangrenous tissue comprising the incision. The gangrenous tissue is dry and without drainage. There is no odor. There is no significant erythema or cellulitis. Dimensions are documented elsewhere. Hair: normal Neuro oriented x3, CN's II-XII intact bilaterally, moves all extremities and no focal motor deficits Sensorium / Orientation: awake, alert, oriented to person, oriented to place and oriented to time Psych Appearance: grossly normal and appropriate Attitude: calm Activity / Motor Behavior: appropriate eye contact Speech: normal speech Mood & Affect: euthymic mood Thought Process: normal thought process Thought Content: normal thought content Attention / Concentration: attention grossly intact Debridement Note Debridement Note Wound debrided: Necrotic, gangrenous, dehiscent left knee incision. Laterality: Left Type of Debridement: Excisional debridement Anesthesia Used: 5% Lidocaine Gel and Cetacaine Depth: Down to and including healthy tissue and in the subcutaneous layer Percentage of wound debrided: 100 Instrument Used: 5mm curette, #15 blade and Forceps Tissue Removed: Gangrenous and necrotic tissue Severity: Fat Layer Exposed Amount of bleeding with debridement: Mild Bleeding Controlled with: Compression and gauze Patient tolerated procedure: Patient tolerated procedure well Debridement Free Text: Tenacious gangrene and necrosis was seen at the site of the patient's recent left total knee replacement revision. Efforts to remove the gangrenous material using a sterile 5 mm curette were limited. A forceps and #15 scalpel were used to sharp elevate and excised the large amount of necrotic tissue. It was seen that the dehiscent wound extends into the subcutaneous tissues. The underlying bone, prosthetic material, and joint capsule do not care to be involved. Upon removal of the frankly necrotic tissue, there remained a small of of nonviable tissue within the base of the wound. Post-Debridement Measurements and Additional Note: Post-Debridement Measurements/Treatment GINA - Nurse 1 - General Ulcer Assessment Start: 07/22/24 13:19 Freq: Status: Active Protocol: KENNY Activity Type Activity Date Activity User E-sign Co-sign Detail Recorded Client Recorded Date Recorded By Document 07/22/24 13:20 KW [id number] 07/22/24 13:32 KW 07/22/24 13:20 WC - Today's Visit Information Type of service Initial Visit Arrival Mode Wheelchair Transfer Assistance Manual Patient Identification Verified (Name & Yes ) Patient Requires Transmission-Based No Precautions Height and Weight Height 5 ft 1 in Weight 180 lb 13.313 oz Weight in Pounds 180.8 lbs Body Mass Index (BMI) 34.1 BMI Classification Obese BSA - Nate 1.81 Vital Signs Temperature (97.8 F-99.1 F) 97.1 F L Temperature Source Temporal Pulse Rate (60-100) 83 Pulse Location Monitor Respiratory Rate (12-18) 18 Respiratory rate source Observation Blood Pressure (90/60-120/80) 107/87 H Blood Pressure Mean 93 Source Monitor Position Sitting Blood Pressure Location Right Arm History Since Last Visit- (Skip if this is Patient's initial visit) Have you changed medications since your No last visit? Any new allergies or adverse reactions No Had a fall/change in ADL's that may No increase risk of falls Signs or symptoms of abuse and/or No neglect since last visit Have you been in the hospital since your No last visit? Has dressing in place as prescribed Yes Has compression in place as prescribed Yes Has offloadiing in place as prescribed Yes Experienced any changes in pain level or No management Pain Scale: 0-10 Numeric Is Patient Pain Free? Yes - Nurse 1 - General Ulcer Measurement Start: 07/22/24 13:19 Freq: Status: Active Protocol: Activity Type Activity Date Activity User E-sign Co-sign Detail Recorded Client Recorded Date Recorded By Document 07/22/24 13:20 KW [id number] 07/22/24 13:32 07/22/24 13:20 Wound Center Nurse 1 #1,.L knee -Combined with other wound No -Current Size (cm) - Length 13.8 -Current Size (cm) - Width 1.5 -Current Size (cm) - Depth 0.3 -Total Square Cm 20.70 -Photo Taken Yes -Epithelialization Medium 34-66% -Exudate Amt Medium -Exudate Type Serosanguineous -Wound Margin Distinct, Outline Attached -Granulation Amt Medium (34-66%) -Slough/Fibrin Yes -Necrosis Amt Medium (34-66%) -Necrotic Tissue Type Adherent Slough -Moisture (Anali-wound Skin Appearance) No Abnormality -Color (Anali-wound Skin Appearance) No Abnormality -Temperature (Anali-wound Skin No Abnormality Appearance) (Pt Warm) -Tenderness on Palpation (Anali-wound No Skin Appearance) -Ulcer Cleansing Soap and Water -Foul Odor after Cleansing No -Anesthetic Used 5% Lidocaine Gel Left Calf (cm) 39.5 Left Ankle (cm) 23.4 WC - Nurse 2 - General Ulcer CM Notes Start: 07/22/24 13:19 Freq: Status: Active Protocol: Activity Type Activity Date Activity User E-sign Co-sign Detail Recorded Client Recorded Date Recorded By Document 07/22/24 13:47 [id number] 07/22/24 13:59 07/22/24 13:47 Wound Center Nurse 2 #1,.L knee -Time 13:57 -Correct Patient Yes -Correct Side, Site, Position Yes -Correct Procedure Yes -Procedure Performed Yes -Type of Procedure Debridement -Clinical Debridement Subcutaneous -Tissue Removed Subcutaneous -Post Debridement (cm) - Length 13.8 -Post Debridement (cm) - Width 2 -Post Debridement (cm) - Depth 0.3 -Total Square (Post) (cm) 27.6 -Area of Debridement (cm) - Length 13.8 -Area of Debridement (cm) - Width 2.0 -Total Square (Area) (cm) 27.60 -Tunneling No -Undermining/Tunneling No -Circular Undermining No -Wound/Ulcer Outcome Not Healed -Ulcer Cleansing Rinsed/ Irrigated with Saline -Foul Odor after Cleansing No -Bioengineered Tissue No -Bleeding Controlled with Pressure -Treatment Response Procedure Tolerated Well -Offloading No -Debridement - Subq, 1st 20sq cm Yes -Debridement, SubQ, ea addt'l 20sq cm 1 or part thereof Pain Scale: 0-10 Numeric Is Patient Pain Free? Yes Lab / Micro Data Labs: Laboratory Tests 07/18/24 05:25 WBC 6.9 Hgb 11.3 L Hct 36.4 L Plt Count 291 Sodium 140 Potassium 3.9 Chloride 109 H BUN 33 H Creatinine 1.07 H Glucose 123 H Calcium 9.2 Charges/Coding Multi Select Codes Visit Charges Office Visit/Consults: 50845 OV L4 New 45 min Integumentary Integumentary CPT Codes: 42548 Trinidad subq tissue 20 sq cm/< (17375 x 1; 68868 x 1) Assessment/Plan Assessment/Plan (1) Dehiscence of incision: CODE(S): T81.31XA - Disruption of external operation (surgical) wound, not elsewhere classified, initial encounter QUALIFIERS: Encounter type: initial encounter Qualified Code(s): T81.31XA - Disruption of external operation (surgical) wound, not elsewhere classified, initial encounter (2) Gangrene associated with type 2 diabetes mellitus: CODE(S): E11.52 - Type 2 diabetes mellitus with diabetic peripheral angiopathy with gangrene (3) Status post revision of total replacement of left knee: CODE(S): Z96.652 - Presence of left artificial knee joint (4) Failed total left knee replacement: CODE(S): T84.093A - Other mechanical complication of internal left knee prosthesis, initial encounter QUALIFIERS: Encounter type: initial encounter Qualified Code(s): T84.093A - Other mechanical complication of internal left knee prosthesis, initial encounter (5) History of left knee surgery: CODE(S): Z98.890 - Other specified postprocedural states (6) Diabetes: CODE(S): E11.9 - Type 2 diabetes mellitus without complications QUALIFIERS: Diabetes mellitus type: type 2 (7) Diabetic polyneuropathy: CODE(S): E11.42 - Type 2 diabetes mellitus with diabetic polyneuropathy (8) GERD (gastroesophageal reflux disease): CODE(S): K21.9 - Gastro-esophageal reflux disease without esophagitis (9) Hyperlipemia: CODE(S): E78.5 - Hyperlipidemia, unspecified (10) Iron deficiency anemia: CODE(S): D50.9 - Iron deficiency anemia, unspecified (11) Essential (primary) hypertension: CODE(S): I10 - Essential (primary) hypertension (12) Debility: CODE(S): R53.81 - Other malaise (13) Status post total right knee replacement: CODE(S): Z96.651 - Presence of right artificial knee joint (14) Osteoarthritis: (15) History of DVT (deep vein thrombosis): CODE(S): Z86.718 - Personal history of other venous thrombosis and embolism (16) Dyslipidemia: CODE(S): E78.5 - Hyperlipidemia, unspecified (17) Hypothyroidism: CODE(S): E03.9 - Hypothyroidism, unspecified (18) Ocular myasthenia gravis: CODE(S): G70.00 - Myasthenia gravis without (acute) exacerbation (19) History of partial thyroidectomy: CODE(S): E89.0 - Postprocedural hypothyroidism (20) History of appendectomy: CODE(S): Z90.49 - Acquired absence of other specified parts of digestive tract (21) History of hysterectomy: CODE(S): Z90.710 - Acquired absence of both cervix and uterus (22) History of cholecystectomy: CODE(S): Z90.49 - Acquired absence of other specified parts of digestive tract (23) Non-smoker: CODE(S): Z78.9 - Other specified health status (24) History of hiatal hernia: CODE(S): Z87.19 - Personal history of other diseases of the digestive sy stem (25) History of revision of total replacement of left knee joint: CODE(S): Z96.652 - Presence of left artificial knee joint (26) History of bilateral cataract extraction: CODE(S): Z98.41 - Cataract extraction status, right eye; Z98.42 - Cataract extraction status, left eye PLAN: Plan This is a 73-year-old female who underwent the fourth revision of a left total knee replacement on June 19, 2024. She has developed gangrene, necrosis, and dehiscence at the surgical site. As a result, the patient presented for definitive evaluation and management with respect to her surgical wound. A large amount of necrotic and nonviable tissue has been sharply excised from the site of the patient's surgical wound. We are to implement the use of collagenase Santyl topically, which will be applied by the patient on a daily basis. She and her have been instructed in the appropriate means of application. A prescription has been provided, as well as a coupon to mitigate the high cost of the product. The patient has been encouraged to optimize her nutritional intake, as well as her diabetes management. She has been encouraged to continue taking Papa as a nutritional supplement. She is to coordinate with her primary care physician with regard to diabetes management. She is to continue on her course of doxycycline as prescribed by her other physicians. She has been encouraged to elevate her left lower extremity to prevent and minimize swelling. Elevation is to be to heart level, during both daytime and nighttime hours. Avoidance of prolonged idle sitting has been encouraged. Activity as tolerated encouraged, within the boundaries as set surgeon. Tubigrip's have been dispensed for compression purposes. The patient is to follow-up in 1 week for reevaluation. Total time: 48 minutes
--- NOTE | 2024-07-28 11:29 | WC ---
PHOTO 07/22/24 LEFT KNEE
--- NOTE | 2024-07-28 11:33 | WC ---
PHOTO LEFT KNEE 07/22/24
== END 2024-07-24 23:59 | disposition home or self-care (01) ==
LOC: WC 12:57
PROVIDERS: PCP Internal Medicine; Visit Provider Surgery
DX: T81.31XA Disruption of external operation (surgical) wound, not elsewhere classified, initial encounter (principal); E11.52 Type 2 diabetes mellitus with diabetic peripheral angiopathy with gangrene; G70.00 Myasthenia gravis without (acute) exacerbation; E11.42 Type 2 diabetes mellitus with diabetic polyneuropathy; E78.5 Hyperlipidemia, unspecified; M19.90 Unspecified osteoarthritis, unspecified site; Z90.710 Acquired absence of both cervix and uterus; R53.81 Other malaise; K21.9 Gastro-esophageal reflux disease without esophagitis; I10 Essential (primary) hypertension; E89.0 Postprocedural hypothyroidism; Z79.84 Long term (current) use of oral hypoglycemic drugs; D50.9 Iron deficiency anemia, unspecified; Z86.718 Personal history of other venous thrombosis and embolism; Z96.653 Presence of artificial knee joint, bilateral; T84.093A Other mechanical complication of internal left knee prosthesis, initial encounter; Z90.49 Acquired absence of other specified parts of digestive tract; Z98.41 Cataract extraction status, right eye; Z87.19 Personal history of other diseases of the digestive system
CPT/HCPCS: 11042; 11045; 99214; G0463

== ENCOUNTER 2024-08-19 14:15 | Outpatient (RCR) | payer MEDICARE, SELFPAY ==
[2024-07-25 00:54] VITALS: BP 107/87; PULSE 83; RESP 18; TEMP 36.2; BMI 34.1
[2024-07-29 13:12] VITALS: BP 145/65; PULSE 84; RESP 18; TEMP 36.3; BMI 34.1
--- NOTE | 2024-07-29 14:55 | PCM.WC.HP ---
History of Present Illness Date of Service: 07/29/24 Chief Complaint: Dehiscent, necrotic surgical wound of the left knee History of Wound: This is a 73-year-old female with a history of left total knee replacement many years ago, which has required several revisions. The most recent revision was performed on June 19, 2024, at the [facility] [place]. This was the fourth left knee revision. Prior revisions required flap reconstruction, and the Plastic Surgery service was involved in the patient's most recent surgery. Postoperatively, the patient has been placed on oral doxycycline, which is expected to continue for 3 months. The patient's left lower extremity was locked in extension for 2 weeks. She is now partial weightbearing on the involved limb. She was admitted to the Transitional Care Unit at [facility] for several weeks postoperatively on June 27, 2024. She has now returned to home, with resident assistant care from her . The patient developed a surgical wound dehiscence and marjorie necrosis and gangrene at the site of her incision. A wound VAC was used initially at the surgical site, but the patient had been using Xeroform more recently. The patient suffers from multiple pre-existing medical conditions, listed herein. She does not smoke. She is using Papa as a nutritional supplement. Her BMI is 34.1. [facility] Medical History Gangrene associated with type 2 diabetes mellitus Dehiscence of incision History of revision of total replacement of left knee joint Wears glasses Alcohol use History of steroid therapy Bladder disease Neuropathy Back pain Dietary restriction History of pain when walking Pain Myasthenia gravis Ambulates with cane Rheumatoid arthritis Low iron History of DVT (deep vein thrombosis) Hyperlipemia Difficulty swallowing History of hiatal hernia Gastric reflux Non-smoker Shortness of breath on exertion Chronic cough PONV (postoperative nausea and vomiting) Leg cramps History of edema History of stress test Hypertension Thyroid disease Cataracts, bilateral History of UTI Arthritis Home Medications ?Medication ?Instructions ?Recorded ?Last Taken ?Type folic acid 1 mg tablet 1 mg PO DAILY supplement 10/13/13 06/06/22 History atorvastatin 10 mg tablet 5 mg PO .QOD Cholesterol 09/06/21 06/26/24 18:45 History cholecalciferol (vitamin D3) 50 50 mcg PO DAILY supplement 09/06/21 06/27/24 History mcg (2,000 unit) capsule glimepiride 4 mg tablet 4 mg PO BID blood sugar 09/06/21 06/27/24 History ascorbic acid (vitamin C) 500 mg 500 mg PO DAILY supplement 02/06/22 06/27/24 History tablet (Vitamin C) omeprazole magnesium 20 mg 20 mg PO DAILY GERD 02/06/22 06/06/22 History tablet,delayed release (Prilosec OTC) dapagliflozin propanediol 5 mg 10 mg PO DAILY blood sugar 05/25/22 06/06/22 History tablet (Farxiga) levothyroxine 125 mcg tablet 100 mcg PO DAILY thyroid 05/25/22 06/27/24 History pregabalin 75 mg capsule (Lyrica) 100 mg PO TID pain 05/25/22 06/06/22 History hydrochlorothiazide 12.5 mg tablet 12.5 mg PO DAILY Blood pressure 06/07/22 Unknown History vibegron 75 mg tablet (Gemtesa) 75 mg PO DAILY Overactive bladder 12/04/22 Unknown History apixaban 2.5 mg tablet 2.5 mg PO BID Anticoagulant 06/27/24 06/27/24 08:45 History cyanocobalamin (vitamin B-12) 1,000 mcg PO DAILY Supplement 06/27/24 Unknown History 1,000 mcg capsule metformin 500 mg tablet,extended 1,000 mg PO BID Diabetes 06/27/24 06/27/24 05:30 History release 24 hr methocarbamol 500 mg tablet 500 mg PO TID Muscle spasms 06/27/24 06/27/24 08:45 History polysaccharide iron complex 150 mg 150 mg PO DAILY Supplement 06/27/24 Unknown History iron capsule (Ferrex) acetaminophen 500 mg tablet 1,000 mg (2 x 500 mg) PO Q8 #0 tabs 07/15/24 Unknown Rx arginine 7 gram-glutam 7 1 packet PO BIDCM 30 days #60 ea 07/15/24 Unknown Rx gram-CaHMB 1.5 qsyq-dkpic-mo-min oral pwd pkt (Papa (with collagen)) doxycycline monohydrate 100 mg 100 mg PO BID 60 days #120 caps 07/15/24 Unknown Rx capsule losartan 100 mg tablet 100 mg PO DAILY 30 days #30 tabs 07/15/24 Unknown Rx oxycodone 5 mg tablet 5 - 10 mg (1 - 2 x 5 mg) PO Q4H 07/15/24 Unknown Rx PRN PRN Pain Score 4-10 7 days #84 tabs potassium chloride 20 mEq 20 meq PO DAILYCM 30 days #30 tabs 07/15/24 Unknown Rx tablet,extended release(part/cryst) sennosides 8.6 mg-docusate sodium 2 tab PO BID 30 days #120 tabs 07/15/24 Unknown Rx 50 mg tablet (Stimulant Laxative Plus) Allergy/AdvReac Type Severity Reaction Status Date / Time latex Allergy Severe Other Verified 12/05/23 22:32 shellfish derived Allergy Severe PASSED Verified 12/05/23 22:32 OUT, DIARRHEA adhesive Allergy Mild Rash Verified 12/05/23 22:32 levofloxacin AdvReac Intermediate WEAK, Verified 12/05/23 22:32 NAUSEA povidone AdvReac Mild Hives Verified 12/05/23 22:32 Surgical History History of bilateral cataract extraction History of colonoscopy S/P insertion of spinal cord stimulator History of partial thyroidectomy History of appendectomy History of left knee surgery History of hysterectomy History of cholecystectomy Social History household members: spouse Smoking Status: Never smoker Electronic Cigarette Use: not used second hand exposure: No alcohol intake: current alcohol intake frequency: a few times a month Alcohol type: wine substance use type: does not use Vital Signs Vital Signs Vital Signs: 07/29/24 13:12 Temperature 97.4 F L Temperature Source Temporal Pulse Rate 84 Respiratory Rate 18 Blood Pressure 145/65 H Blood Pressure Mean 91 Blood Pressure Source Monitor Blood Pressure Position Semi-Fowlers Blood Pressure Location Left Arm Weight Weight: 180 lb 13.313 oz Body Mass Index (BMI) 34.1 Physical Exam Const alert, oriented x3, no apparent distress, no limitations, healthy appearing and well nourished Constitutional Narrative: The patient's BMI is 34.1. General Appearance: cooperative, comfortable, well kempt and well developed Orientation / Consciousness: awake, oriented to person, oriented to place and oriented to time Exam Limitations: no limitations HEENT normocephalic and head/scalp atraumatic Head and Scalp: normal to inspection, normocephalic and atraumatic Face and Sinus: normal facial exam Nose: external nose normal External Ear: external ears normal Eyes EOMs intact bilaterally General Eye: normal appearance of both eyes Neck full ROM Chest inspection of chest normal Resp normal respiratory effort, normal air movement, no retractions and no use of accessory muscles Effort and Inspection: able to speak in complete sentences Cardio regular rate Extremity no calf tenderness General Extremity: Negative for clubbing or cyanosis Skin Wound Narrative: A longitudinal incision is noted overlying the left knee. There is a large amount of nonviable, necrotic, gangrenous tissue at the base of the dehiscent incision. The dry eschar, noted last week, is no longer present. There is no odor or drainage. There is no significant erythema or cellulitis. Dimensions are documented elsewhere. Hair: normal Neuro oriented x3, CN's II-XII intact bilaterally, moves all extremities and no focal motor deficits Sensorium / Orientation: awake, alert, oriented to person, oriented to place and oriented to time Psych Appearance: grossly normal and appropriate Attitude: calm Activity / Motor Behavior: appropriate eye contact Speech: normal speech Mood & Affect: euthymic mood Thought Process: normal thought process Thought Content: normal thought content Attention / Concentration: attention grossly intact Debridement Note Debridement Note Wound debrided: Dehiscent left knee incision with necrotic and nonviable tissue Laterality: Left Type of Debridement: Excisional debridement Anesthesia Used: 5% Lidocaine Gel and Cetacaine Depth: Down to and including healthy tissue and in the subcutaneous layer Percentage of wound debrided: 100 Instrument Used: 5mm curette, #15 blade and Forceps Tissue Removed: Gangrenous and necrotic tissue Severity: Fat Layer Exposed Amount of bleeding with debridement: Mild Bleeding Controlled with: Compression and gauze Patient tolerated procedure: Patient tolerated procedure well Debridement Free Text: The tenacious gangrenous eschar which was present at the patient's initial visit was removed last week. At the patient's current visit, a significant amount of nonviable and necrotic tissue persists at the base of the dehiscent wound. A 5 mm sterile curette, forceps, and #15 scalpel were used to excise a large amount of remaining necrotic tissue. The dehiscent wound extends into the subcutaneous tissues. The underlying bone, prosthetic material, and joint capsule do not appear to be involved. Post-Debridement Measurements and Additional Note: Post-Debridement Measurements/Treatment WC - Nurse 1 - General Ulcer Assessment Start: 07/29/24 13:12 Freq: Status: Active Protocol: [email or web address] Activity Type Activity Date Activity User E-sign Co-sign Detail Recorded Client Recorded Date Recorded By Document 07/29/24 13:12 RB [id number] 07/29/24 13:25 07/29/24 13:12 - Today's Visit Information Type of service Follow-up Visit (Physician/CANDY [employer] ) Arrival Mode Wheelchair Transfer Assistance None Patient Identification Verified (Name & Yes ) Patient Requires Transmission-Based No Precautions Height and Weight Body Mass Index (BMI) 34.1 BMI Classification Obese Vital Signs Temperature (97.8 F-99.1 F) 97.4 F L Temperature Source Temporal Pulse Rate (60-100) 84 Pulse Location Monitor Respiratory Rate (12-18) 18 Respiratory rate source Observation Blood Pressure (90/60-120/80) 145/65 H Blood Pressure Mean 91 Source Monitor Position Semi-Fowlers Blood Pressure Location Left Arm History Since Last Visit- (Skip if this is Patient's initial visit) Have you changed medications since your No last visit? Any new allergies or adverse reactions No Had a fall/change in ADL's that may No increase risk of falls Signs or symptoms of abuse and/or No neglect since last visit Have you been in the hospital since your No last visit? Has dressing in place as prescribed Yes Has compression in place as prescribed Yes Has offloadiing in place as prescribed No Experienced any changes in pain level or No management Pain Scale: 0-10 Numeric Is Patient Pain Free? Yes - Nurse 1 - General Ulcer Measurement Start: 07/29/24 13:12 Freq: Status: Active Protocol: Activity Type Activity Date Activity User E-sign Co-sign Detail Recorded Client Recorded Date Recorded By Document 07/29/24 13:12 RB [id number] 07/29/24 13:25 RB 07/29/24 13:12 Wound Center Nurse 1 #1,.L knee -Combined with other wound No -Current Size (cm) - Length 13.4 -Current Size (cm) - Width 2.3 -Current Size (cm) - Depth 0.4 -Total Square Cm 30.82 -Photo Taken Yes -Tunneling No -Undermining/Tunneling No -Circular Undermining No -Exudate Amt Large -Exudate Type Serosanguineous -Wound Margin Thickened & Rolled Under -Granulation Amt Medium (34-66%) -Granulation Quality [place] -Slough/Fibrin Yes -Necrosis Amt Small (1-33%) -Necrotic Tissue Type Adherent Slough -Structure Exposed N/A -Texture (Anali-wound Skin Appearance) Assessed, Scarring -Moisture (Anali-wound Skin Appearance) Assessed -Color (Anali-wound Skin Appearance) Assessed -Temperature (Anali-wound Skin No Abnormality Appearance) (Pt Warm) -Tenderness on Palpation (Anali-wound No Skin Appearance) -Ulcer Cleansing Wound Cleanser -Foul Odor after Cleansing No -Anesthetic Used 5% Lidocaine Gel WC - Nurse 2 - General Ulcer CM Notes Start: 07/29/24 13:12 Freq: Status: Active Protocol: Activity Type Activity Date Activity User E-sign Co-sign Detail Recorded Client Recorded Date Recorded By Document 07/29/24 14:17 DS [id number] 07/29/24 14:28 DS Edit Result 07/29/24 14:17 DS (1) [id number] 07/29/24 14:35 DS (1) #1,.L knee - Debridement, SubQ, ea addt'l 20sq cm => 1 or part thereof 07/29/24 14:17 Wound Center Nurse 2 -Time 14:17 -Correct Patient Yes -Correct Side, Site, Position Yes -Correct Procedure Yes -Procedure Performed Yes -Type of Procedure Debridement -Clinical Debridement Subcutaneous -Tissue Removed Subcutaneous -Post Debridement (cm) - Length 13.5 -Post Debridement (cm) - Width 2.6 -Post Debridement (cm) - Depth 1.0 -Total Square (Post) (cm) 35.10 -Area of Debridement (cm) - Length 13.5 -Area of Debridement (cm) - Width 2.6 -Total Square (Area) (cm) 35.10 -Tunneling No -Undermining/Tunneling No -Wound/Ulcer Outcome Not Healed -Ulcer Cleansing Rinsed/ Irrigated with Saline -Bioengineered Tissue No -Bleeding Controlled with Pressure -Treatment Response Procedure Tolerated Well -Debridement - Subq, 1st 20sq cm Yes -Debridement, SubQ, ea addt'l 20sq cm 1 or part thereof Pain Scale: 0-10 Numeric Is Patient Pain Free? Yes WC - Nurse 3 - General Ulcer D/C NN Start: 07/29/24 13:12 Freq: Status: Active Protocol: Activity Type Activity Date Activity User E-sign Co-sign Detail Recorded Client Recorded Date Recorded By Document 07/29/24 14:34 RB [id number] 07/29/24 14:36 RB 07/29/24 14:34 Wound Care Center Nurse 3 #1,.L knee -Ulcer Cleansing Rinsed/ Irrigated with Saline -Other Dressing santyl nickel thickness/ moistened gauze -Primary Dressing Covered/Secured with Dry Gauze,Dry Gauze & Roll Gauze,Secured with Tape -Other Covering ABD Left -Tubular Bandage Single Layer -Size of Tubigrip Used Size E -Size E ($) 1 Treatment Response Procedure Tolerated Well Pain Scale: 0-10 Numeric Is Patient Pain Free? Yes WC - Visit Discharge Discharge Condition Stable Ambulatory Status Wheelchair Transportation Private Auto Medication Reconcilliation completed & No provided to patient/care provider Clinical Summary of Care Provided Yes Charges/Coding Multi Select Codes Integumentary Integumentary CPT Codes: 14807 [place] subq tissue 20 sq cm/< (76230 x 1; 12456 x1) Assessment/Plan Assessment/Plan (1) Dehiscence of incision: CODE(S): T81.31XA - Disruption of external operation (surgical) wound, not elsewhere classified, initial encounter QUALIFIERS: Encounter type: subsequent encounter Qualified Code(s): T81.31XD - Disruption of external operation (surgical) wound, not elsewhere classified, subsequent encounter (2) Gangrene associated with type 2 diabetes mellitus: CODE(S): E11.52 - Type 2 diabetes mellitus with diabetic peripheral angiopathy with gangrene (3) Status post revision of total replacement of left knee: CODE(S): Z96.652 - Presence of left artificial knee joint (4) Failed total left knee replacement: CODE(S): T84.093A - Other mechanical complication of internal left knee prosthesis, initial encounter QUALIFIERS: Encounter type: subsequent encounter Qualified Code(s): T84.093D - Other mechanical complication of internal left knee prosthesis, subsequent encounter (5) History of left knee surgery: CODE(S): Z98.890 - Other specified postprocedural states (6) Diabetes: CODE(S): E11.9 - Type 2 diabetes mellitus without complications QUALIFIERS: Diabetes mellitus type: type 2 (7) Diabetic polyneuropathy: CODE(S): E11.42 - Type 2 diabetes mellitus with diabetic polyneuropathy (8) GERD (gastroesophageal reflux disease): CODE(S): K21.9 - Gastro-esophageal reflux disease without esophagitis (9) Hyperlipemia: CODE(S): E78.5 - Hyperlipidemia, unspecified (10) Iron deficiency anemia: CODE(S): D50.9 - Iron deficiency anemia, unspecified (11) Essential (primary) hypertension: CODE(S): I10 - Essential (primary) hypertension (12) Debility: CODE(S): R53.81 - Other malaise (13) Status post total right knee replacement: CODE(S): Z96.651 - Presence of right artificial knee joint (14) Osteoarthritis: (15) History of DVT (deep vein thrombosis): CODE(S): Z86.718 - Personal history of other venous thrombosis and embolism (16) Dyslipidemia: CODE(S): E78.5 - Hyperlipidemia, unspecified (17) Hypothyroidism: CODE(S): E03.9 - Hypothyroidism, unspecified (18) Ocular myasthenia gravis: CODE(S): G70.00 - Myasthenia gravis without (acute) exacerbation (19) History of partial thyroidectomy: CODE(S): E89.0 - Postprocedural hypothyroidism (20) History of appendectomy: CODE(S): Z90.49 - Acquired absence of other specified parts of digestive tract (21) History of hysterectomy: CODE(S): Z90.710 - Acquired absence of both cervix and uterus (22) History of cholecystectomy: CODE(S): Z90.49 - Acquired absence of other specified parts of digestive tract (23) Non-smoker: CODE(S): Z78.9 - Other specified health status (24) History of hiatal hernia: CODE(S): Z87.19 - Personal history of other diseases of the digestive system (25) History of revision of total replacement of left knee joint: CODE(S): Z96.652 - Presence of left artificial knee joint (26) History of bilateral cataract extraction: CODE(S): Z98.41 - Cataract extraction status, right eye; Z98.42 - Cataract extraction status, left eye PLAN: Plan This is a 73-year-old female who underwent the fourth revision of a left total knee replacement on June 19, 2024. She developed gangrene, necrosis, and dehiscence at the surgical site. As a result, the patient presented for definitive evaluation and management with respect to her surgical wound. A large amount of necrotic and nonviable tissue has been sharply excised from the site of the patient's surgical wound. We are to continue the use of collagenase Santyl topically, which will be applied by the patient on a daily basis. She and her have been instructed in the appropriate means of application. A prescription has been provided, as well as a coupon to mitigate the high cost of the product. The patient has been encouraged to optimize her nutritional intake, as well as her diabetes management. She has been encouraged to continue taking Papa as a nutritional supplement. She is to coordinate with her primary care physician with regard to diabetes management. She is to continue on her course of doxycycline as prescribed by her other physicians. She has been encouraged to elevate her left lower extremity to prevent and minimize swelling. Elevation is to be to heart level, during both daytime and nighttime hours. Avoidance of prolonged idle sitting has been encouraged. Activity as tolerated encouraged, within the boundaries as set by her orthopedic surgeon. Tubigrip's have been dispensed for compression purposes. The patient is to follow-up in 1 week for reevaluation. Total time: 25 minutes
[2024-08-05 15:02] VITALS: BP 124/53; PULSE 72; RESP 18; TEMP 36.1; BMI 34.1
--- NOTE | 2024-08-06 20:43 | HP.PCM_ITS ---
History of Present Illness Date of Service: 08/05/24 Chief Complaint: Dehiscent, necrotic surgical wound of the left knee History of Wound: This is a 73-year-old female with a history of left total knee replacement many years ago, which has required several revisions. The most recent revision was performed on June 19, 2024, at the [facility]. This was the fourth left knee revision. Prior revisions required flap reconstruction, and the Plastic Surgery service was involved in the patient's most recent surgery. Postoperatively, the patient has been placed on oral doxycycline, which is expected to continue for 3 months. The patient's left lower extremity was locked in extension for 2 weeks. She is now weightbearing on the involved limb. She was admitted to the Transitional Care Unit at [facility] for several weeks postoperatively on June 27, 2024. She has now returned to home, with vector control assistant care from her . The patient developed a surgical wound dehiscence and marjorie necrosis and gangrene at the site of her incision. A wound VAC was used initially at the surgical site, but the patient had been using Xeroform more recently. The patient suffers from multiple pre-existing medical conditions, listed herein. She does not smoke. She is using Papa as a nutritional supplement. Her BMI is 34.1. COUNTS INCLUDE 234 BEDS AT THE [facility] Medical History Gangrene associated with type 2 diabetes mellitus Dehiscence of incision History of revision of total replacement of left knee joint Wears glasses Alcohol use History of steroid therapy Bladder disease Neuropathy Back pain Dietary restriction History of pain when walking Pain Myasthenia gravis Ambulates with cane Rheumatoid arthritis Low iron History of DVT (deep vein thrombosis) Hyperlipemia Difficulty swallowing History of hiatal hernia Gastric reflux Non-smoker Shortness of breath on exertion Chronic cough PONV (postoperative nausea and vomiting) Leg cramps History of edema History of stress test Hypertension Thyroid disease Cataracts, bilateral History of UTI Arthritis Home Medications ?Medication ?Instructions ?Recorded ?Last Taken ?Type folic acid 1 mg tablet 1 mg PO DAILY supplement 10/13/13 06/06/22 History atorvastatin 10 mg tablet 5 mg PO .QOD Cholesterol 09/06/21 06/26/24 18:45 History cholecalciferol (vitamin D3) 50 50 mcg PO DAILY supplement 09/06/21 06/27/24 History mcg (2,000 unit) capsule glimepiride 4 mg tablet 4 mg PO BID blood sugar 09/06/21 06/27/24 History ascorbic acid (vitamin C) 500 mg 500 mg PO DAILY supplement 02/06/22 06/27/24 History tablet (Vitamin C) omeprazole magnesium 20 mg 20 mg PO DAILY GERD 02/06/22 06/06/22 History tablet,delayed release (Prilosec OTC) dapagliflozin propanediol 5 mg 10 mg PO DAILY blood sugar 05/25/22 06/06/22 History tablet (Farxiga) levothyroxine 125 mcg tablet 100 mcg PO DAILY thyroid 05/25/22 06/27/24 History pregabalin 75 mg capsule (Lyrica) 100 mg PO TID pain 05/25/22 06/06/22 History hydrochlorothiazide 12.5 mg tablet 12.5 mg PO DAILY Blood pressure 06/07/22 Unknown History vibegron 75 mg tablet (Gemtesa) 75 mg PO DAILY Overactive bladder 12/04/22 Unknown History apixaban 2.5 mg tablet 2.5 mg PO BID Anticoagulant 06/27/24 06/27/24 08:45 History cyanocobalamin (vitamin B-12) 1,000 mcg PO DAILY Supplement 06/27/24 Unknown History 1,000 mcg capsule metformin 500 mg tablet,extended 1,000 mg PO BID Diabetes 06/27/24 06/27/24 05:30 History release 24 hr methocarbamol 500 mg tablet 500 mg PO TID Muscle spasms 06/27/24 06/27/24 08:45 History polysaccharide iron complex 150 mg 150 mg PO DAILY Supplement 06/27/24 Unknown History iron capsule (Ferrex) acetaminophen 500 mg tablet 1,000 mg (2 x 500 mg) PO Q8 #0 tabs 07/15/24 Unknown Rx arginine 7 gram-glutam 7 1 packet PO BIDCM 30 days #60 ea 07/15/24 Unknown Rx gram-CaHMB 1.5 [id number] oral pwd pkt (Papa (with collagen)) doxycycline monohydrate 100 mg 100 mg PO BID 60 days #120 caps 07/15/24 Unknown Rx capsule losartan 100 mg tablet 100 mg PO DAILY 30 days #30 tabs 07/15/24 Unknown Rx oxycodone 5 mg tablet 5 - 10 mg (1 - 2 x 5 mg) PO Q4H 10/22/24 Unknown Rx PRN PRN Pain Score 4-10 7 days #84 tabs potassium chloride 20 mEq 20 meq PO DAILYCM 30 days #30 tabs 07/15/24 Unknown Rx tablet,extended release(part/cryst) sennosides 8.6 mg-docusate sodium 2 tab PO BID 30 days #120 tabs 07/15/24 Unknown Rx 50 mg tablet (Stimulant Laxative Plus) Allergy/AdvReac Type Severity Reaction Status Date / Time latex Allergy Severe Other Verified 12/05/23 22:32 shellfish derived Allergy Severe PASSED Verified 12/05/23 22:32 OUT, DIARRHEA adhesive Allergy Mild Rash Verified 12/05/23 22:32 levofloxacin AdvReac Intermediate WEAK, Verified 12/05/23 22:32 NAUSEA povidone AdvReac Mild Hives Verified 12/05/23 22:32 Surgical History History of bilateral cataract extraction History of colonoscopy S/P insertion of spinal cord stimulator History of partial thyroidectomy History of appendectomy History of left knee surgery History of hysterectomy History of cholecystectomy Social History household members: spouse Smoking Status: Never smoker Electronic Cigarette Use: not used second hand exposure: No alcohol intake: current alcohol intake frequency: a few times a month Alcohol type: wine substance use type: does not use Vital Signs Vital Signs Vital Signs: Weight Weight: 180 lb 13.313 oz Body Mass Index (BMI) 34.1 Physical Exam Const alert, oriented x3, no apparent distress, no limitations, healthy appearing and well nourished Constitutional Narrative: The patient's BMI is 34.1. General Appearance: cooperative, comfortable, well kempt and well developed Orientation / Consciousness: awake, oriented to person, oriented to place and oriented to time Exam Limitations: no limitations HEENT normocephalic and head/scalp atraumatic Head and Scalp: normal to inspection, normocephalic and atraumatic Face and Sinus: normal facial exam Nose: external nose normal External Ear: external ears normal Eyes EOMs intact bilaterally General Eye: normal appearance of both eyes Neck full ROM Chest inspection of chest normal Resp normal respiratory effort, normal air movement, no retractions and no use of accessory muscles Effort and Inspection: able to speak in complete sentences Cardio regular rate Extremity no calf tenderness General Extremity: Negative for clubbing or cyanosis Skin Wound Narrative: A dehiscent longitudinal incision is noted overlying the left knee. The dehiscence extends through all layers and into the subcutaneous tissues. There is a moderate amount of nonviable, necrotic, gangrenous tissue at the base of the dehiscent incision. The amount of nonviable and necrotic tissue continues to diminish with each successive clinic visit. The dry, necrotic eschar, noted at the patient's initial visit, is no longer present. There is no odor or drainage. There is no significant erythema or cellulitis. Dimensions are documented elsewhere. Hair: normal Neuro oriented x3, CN's II-XII intact bilaterally, moves all extremities, no focal motor deficits and no sensory deficits noted Sensorium / Orientation: awake, alert, oriented to person, oriented to place and oriented to time Psych Appearance: grossly normal and appropriate Attitude: calm Activity / Motor Behavior: appropriate eye contact Speech: normal speech Mood & Affect: euthymic mood Thought Process: normal thought process Thought Content: normal thought content Attention / Concentration: attention grossly intact Debridement Note Debridement Note Wound debrided: Dehiscent left knee incision with bioburden and nonviable tissue Laterality: Left Type of Debridement: Excisional debridement Anesthesia Used: 5% Lidocaine Gel and Cetacaine Depth: Down to and including healthy tissue and in the subcutaneous layer Percentage of wound debrided: 100 Instrument Used: 5mm curette Tissue Removed: Bioburden and nonviable tissue Severity: Fat Layer Exposed Amount of bleeding with debridement: Mild Bleeding Controlled with: Compression and gauze Patient tolerated procedure: Patient tolerated procedure well Post-Debridement Measurements and Additional Note: Post-Debridement Measurements/Treatment - Nurse 1 - General Ulcer Assessment Start: 07/29/24 13:12 Freq: Status: Active Protocol: KENNY Activity Type Activity Date Activity User E-sign Co-sign Detail Recorded Client Recorded Date Recorded By Document 07/29/24 13:12 RB [id number] 07/29/24 13:25 RB Document 08/05/24 15:02 KW [id number] 08/05/24 15:10 KW 07/29/24 08/05/24 13:12 15:02 - Today's Visit Information Type of service Follow-up Visit Follow-up Visit (Physician/MEMBER OF THE LEGISLATIVE [employer]SEM[employer]Y (Physician/MEMBER OF THE LEGISLATIVE [employer] ) ) Arrival Mode Wheelchair Wheelchair Transfer Assistance None Accompanied by Patient Identification Verified (Name & Yes Yes ) Patient Requires Transmission-Based No Precautions Height and Weight Body Mass Index (BMI) 34.1 34.1 BMI Classification Obese Obese Vital Signs Temperature (97.8 F-99.1 F) 97.4 F L 97.0 F L Temperature Source Temporal Temporal Pulse Rate (60-100) 84 72 Pulse Location Monitor Monitor Respiratory Rate (12-18) 18 18 Respiratory rate source Observation Observation Oxygen Delivery Method Room Air Blood Pressure (90/60-120/80) 145/65 H 124/53 H Blood Pressure Mean 91 76 Source Monitor Monitor Position Semi-Fowlers Semi-Fowlers Blood Pressure Location Left Arm Left Arm History Since Last Visit- (Skip if this is Patient's initial visit) Have you changed medications since your No No last visit? Any new allergies or adverse reactions No No Had a fall/change in ADL's that may No No increase risk of falls Signs or symptoms of abuse and/or No No neglect since last visit Have you been in the hospital since your No No last visit? Has dressing in place as prescribed Yes Yes Has compression in place as prescribed Yes Yes Has offloadiing in place as prescribed No N/A Experienced any changes in pain level or No No management Left Footwear Regular Shoe Right Footwear Regular Shoe Pain Scale: 0-10 Numeric Is Patient Pain Free? Yes Yes WC - Nurse 1 - General Ulcer Measurement Start: 07/29/24 13:12 Freq: Status: Active Protocol: Activity Type Activity Date Activity User E-sign Co-sign Detail Recorded Client Recorded Date Recorded By Document 07/29/24 13:12 RB [id number] 07/29/24 13:25 RB Document 08/05/24 15:02 KW [id number] 08/05/24 15:10 KW 07/29/24 08/05/24 13:12 15:02 Wound Center Nurse 1 #1,.L knee -Combined with other wound No -Current Size (cm) - Length 13.4 13.6 -Current Size (cm) - Width 2.3 2.7 -Current Size (cm) - Depth 0.4 0.7 -Total Square Cm 30.82 36.72 -Photo Taken Yes -Tunneling No -Undermining/Tunneling No -Circular Undermining No -Exudate Amt Large Medium -Exudate Type Serosanguineous Serosanguineous -Wound Margin Thickened & Distinct, Rolled Under Outline Attached -Granulation Amt Medium (34-66%) Medium (34-66%) -Granulation Quality [place] -Slough/Fibrin Yes -Necrosis Amt Small (1-33%) Medium (34-66%) -Necrotic Tissue Type Adherent Slough Adherent Slough -Structure Exposed N/A -Texture (Anali-wound Skin Appearance) Assessed, Assessed Scarring -Moisture (Anali-wound Skin Appearance) Assessed Assessed -Color (Anali-wound Skin Appearance) Assessed Assessed -Temperature (Anali-wound Skin No Abnormality No Abnormality Appearance) (Pt Warm) (Pt Warm) -Tenderness on Palpation (Anali-wound No No Skin Appearance) -Ulcer Cleansing Wound Cleanser Soap and Water -Foul Odor after Cleansing No No -Anesthetic Used 5% Lidocaine 4% Lidocaine Gel Solution WC - Nurse 2 - General Ulcer CM Notes Start: 07/29/24 13:12 Freq: Status: Active Protocol: Activity Type Activity Date Activity User E-sign Co-sign Detail Recorded Client Recorded Date Recorded By Document 07/29/24 14:17 DS [id number] 07/29/24 14:28 DS Edit Result 07/29/24 14:17 DS (1) [id number] 07/29/24 14:35 DS Document 08/05/24 15:47 DS [id number] 08/05/24 15:52 DS (1) #1,.L knee - Debridement, SubQ, ea addt'l 20sq cm => 1 or part thereof 07/29/24 08/05/24 14:17 15:47 Wound Center Nurse 2 #1,.L knee -Time 14:17 15:45 -Correct Patient Yes Yes -Correct Side, Site, Position Yes Yes -Correct Procedure Yes Yes -Procedure Performed Yes Yes -Type of Procedure Debridement Debridement -Clinical Debridement Subcutaneous Subcutaneous -Tissue Removed Subcutaneous Subcutaneous -Post Debridement (cm) - Length 13.5 13.1 -Post Debridement (cm) - Width 2.6 3.0 -Post Debridement (cm) - Depth 1.0 1.2 -Total Square (Post) (cm) 35.10 39.30 -Area of Debridement (cm) - Length 13.5 13.1 -Area of Debridement (cm) - Width 2.6 3.0 -Total Square (Area) (cm) 35.10 39.30 -Tunneling No No -Undermining/Tunneling No No -Circular Undermining No -Wound/Ulcer Outcome Not Healed Not Healed -Ulcer Cleansing Rinsed/ Rinsed/ Irrigated with Irrigated with Saline Saline -Bioengineered Tissue No No -Bleeding Controlled with Pressure Pressure -Treatment Response Procedure Procedure Tolerated Well Tolerated Well -Debridement - Subq, 1st 20sq cm Yes Yes -Debridement, SubQ, ea addt'l 20sq cm 1 1 or part thereof Pain Scale: 0-10 Numeric Is Patient Pain Free? Yes Yes - Nurse 3 - General Ulcer D/C NN Start: 07/29/24 13:12 Freq: Status: Active Protocol: Activity Type Activity Date Activity User E-sign Co-sign Detail Recorded Client Recorded Date Recorded By Document 07/29/24 14:34 RB [id number] 07/29/24 14:36 RB Document 08/05/24 15:59 KW [id number] 08/05/24 16:00 KW 07/29/24 08/05/24 14:34 15:59 Wound Care Center Nurse 3 #1,.L knee -Ulcer Cleansing Rinsed/ Irrigated with Saline -Primary Dressing Applied Nugauze, Plain 1/4in -Other Dressing santyl nickel wet to dry thickness/ gauze moistened gauze -Primary Dressing Covered/Secured with Dry Gauze,Dry Dry Gauze & Gauze & Roll Roll Gauze, Gauze,Secured Secured with with Tape Tape -Other Covering ABD -Nugauze, Plain 1/4in 1 Left -Tubular Bandage Single Layer -Size of Tubigrip Used Size E -Size E ($) 1 Treatment Response Procedure Tolerated Well Pain Scale: 0-10 Numeric Is Patient Pain Free? Yes Yes - Visit Discharge Discharge Condition Stable Ambulatory Status Wheelchair Transportation Private Auto Medication Reconcilliation completed & No provided to patient/care provider Clinical Summary of Care Provided Yes Charges/Coding Multi Select Codes Integumentary Integumentary CPT Codes: 14833 [place] subq tissue 20 sq cm/< (22191 x 1; 69900 x 1) Assessment/Plan Assessment/Plan (1) Dehiscence of incision: CODE(S): T81.31XA - Disruption of external operation (surgical) wound, not elsewhere classified, initial encounter QUALIFIERS: Encounter type: subsequent encounter Qualified Code(s): T81.31XD - Disruption of external operation (surgical) wound, not elsewhere classified, subsequent encounter (2) Gangrene associated with type 2 diabetes mellitus: CODE(S): E11.52 - Type 2 diabetes mellitus with diabetic peripheral angiopathy with gangrene (3) Status post revision of total replacement of left knee: CODE(S): Z96.652 - Presence of left artificial knee joint (4) Failed total left knee replacement: CODE(S): T84.093A - Other mechanical complication of internal left knee prosthesis, initial encounter QUALIFIERS: Encounter type: subsequent encounter Qualified Code(s): T84.093D - Other mechanical complication of internal left knee prosthesis, subsequent encounter (5) History of left knee surgery: CODE(S): Z98.890 - Other specified postprocedural states (6) Diabetes: CODE(S): E11.9 - Type 2 diabetes mellitus without complications QUALIFIERS: Diabetes mellitus type: type 2 (7) Diabetic polyneuropathy: CODE(S): E11.42 - Type 2 diabetes mellitus with diabetic polyneuropathy (8) GERD (gastroesophageal reflux disease): CODE(S): K21.9 - Gastro-esophageal reflux disease without esophagitis (9) Hyperlipemia: CODE(S): E78.5 - Hyperlipidemia, unspecified (10) Iron deficiency anemia: CODE(S): D50.9 - Iron deficiency anemia, unspecified (11) Essential (primary) hypertension: CODE(S): I10 - Essential (primary) hypertension (12) Debility: CODE(S): R53.81 - Other malaise (13) Status post total right knee replacement: CODE(S): Z96.651 - Presence of right artificial knee joint (14) Osteoarthritis: (15) History of DVT (deep vein thrombosis): CODE(S): Z86.718 - Personal history of other venous thrombosis and embolism (16) Dyslipidemia: CODE(S): E78.5 - Hyperlipidemia, unspecified (17) Hypothyroidism: CODE(S): E03.9 - Hypothyroidism, unspecified (18) Ocular myasthenia gravis: CODE(S): G70.00 - Myasthenia gravis without (acute) exacerbation (19) History of partial thyroidectomy: CODE(S): E89.0 - Postprocedural hypothyroidism (20) History of appendectomy: CODE(S): Z90.49 - Acquired absence of other specified parts of digestive tract (21) History of hysterectomy: CODE(S): Z90.710 - Acquired absence of both cervix and uterus (22) History of cholecystectomy: CODE(S): Z90.49 - Acquired absence of other specified parts of digestive tract (23) Non-smoker: CODE(S): Z78.9 - Other specified health status (24) History of hiatal hernia: CODE(S): Z87.19 - Personal history of other diseases of the digestive system (25) History of revision of total replacement of left knee joint: CODE(S): Z96.652 - Presence of left artificial knee joint (26) History of bilateral cataract extraction: CODE(S): Z98.41 - Cataract extraction status, right eye; Z98.42 - Cataract extraction status, left eye PLAN: Plan This is a 73-year-old female who underwent the fourth revision of a left total knee replacement on June 19, 2024. She developed gangrene, necrosis, and dehiscence at the surgical site. As a result, the patient presented for definitive evaluation and management with respect to her surgical wound. A large amount of necrotic and nonviable tissue has been eliminated from the site of the patient's surgical wound over the last several weeks. We are to continue the use of collagenase Santyl topically, which will be applied by the patient on a daily basis. She and her have been instructed in the appropriate means of application. A renewal of the collagenase Santyl prescription has been issued. However, should the collagenase Santyl not be available at the patient's pharmacy for a short period of time, the patient has been instructed to use moistened gauze as a packing of the wound in the interim. The patient has been encouraged to optimize her nutritional intake, as well as her diabetes management. She has been encouraged to continue taking Papa as a nutritional supplement. She is to coordinate with her primary care physician with regard to diabetes management. She is to continue on her course of doxycycline as prescribed by her other physicians. She has been encouraged to elevate her left lower extremity to prevent and minimize swelling. Elevation is to be to heart level, during both daytime and nighttime hours. Avoidance of prolonged idle sitting has been encouraged. Activity as tolerated encouraged, within the boundaries as set by her orthopedic surgeon. Tubigrip's have been dispensed for compression purposes. The patient's culture results from 1 week ago are negative. The patient was seen and evaluated by her orthopedic surgeon earlier today, and the patient indicates that he is pleased with her progress thus far. The patient is to follow-up in 1 week for reevaluation. Total time: 26 minutes
[2024-08-12 14:22] VITALS: BP 99/54; PULSE 69; RESP 18; TEMP 36.2; BMI 34.1
--- NOTE | 2024-08-14 15:05 | PCM.WC.HP ---
History of Present Illness Date of Service: 08/12/24 Chief Complaint: Dehiscent, necrotic surgical wound of the left knee History of Wound: This is a 73-year-old female with a history of left total knee replacement many years ago, which has required several revisions. The most recent revision was performed on June 19, 2024, at the [facility]. This was the fourth left knee revision. Prior revisions required flap reconstruction, and the Plastic Surgery service was involved in the patient's most recent surgery. Postoperatively, the patient has been placed on oral doxycycline, which is expected to continue for 3 months. The patient's left lower extremity was locked in extension for 2 weeks. She is now weightbearing on the involved limb. She was admitted to the Transitional Care Unit at [facility] for several weeks postoperatively on June 27, 2024. She has now returned to home, with certified physician's assistant care from her . The patient developed a surgical wound dehiscence and marjorie necrosis and gangrene at the site of her incision. A wound VAC was used initially at the surgical site, but the patient had been using Xeroform more recently. The patient suffers from multiple pre-existing medical conditions, listed herein. She does not smoke. She is using Papa as a nutritional supplement. Her BMI is 34.1. [facility] Medical History Gangrene associated with type 2 diabetes mellitus Dehiscence of incision History of revision of total replacement of left knee joint Wears glasses Alcohol use History of steroid therapy Bladder disease Neuropathy Back pain Dietary restriction History of pain when walking Pain Myasthenia gravis Ambulates with cane Rheumatoid arthritis Low iron History of DVT (deep vein thrombosis) Hyperlipemia Difficulty swallowing History of hiatal hernia Gastric reflux Non-smoker Shortness of breath on exertion Chronic cough PONV (postoperative nausea and vomiting) Leg cramps History of edema History of stress test Hypertension Thyroid disease Cataracts, bilateral History of UTI Arthritis Home Medications ?Medication ?Instructions ?Recorded ?Last Taken ?Type folic acid 1 mg tablet 1 mg PO DAILY supplement 10/13/13 06/06/22 History atorvastatin 10 mg tablet 5 mg PO .QOD Cholesterol 09/06/21 06/26/24 18:45 History cholecalciferol (vitamin D3) 50 50 mcg PO DAILY supplement 09/06/21 06/27/24 History mcg (2,000 unit) capsule glimepiride 4 mg tablet 4 mg PO BID blood sugar 09/06/21 06/27/24 History ascorbic acid (vitamin C) 500 mg 500 mg PO DAILY supplement 02/06/22 06/27/24 History tablet (Vitamin C) omeprazole magnesium 20 mg 20 mg PO DAILY GERD 02/06/22 06/06/22 History tablet,delayed release (Prilosec OTC) dapagliflozin propanediol 5 mg 10 mg PO DAILY blood sugar 05/25/22 06/06/22 History tablet (Farxiga) levothyroxine 125 mcg tablet 100 mcg PO DAILY thyroid 05/25/22 06/27/24 History pregabalin 75 mg capsule (Lyrica) 100 mg PO TID pain 05/25/22 06/06/22 History hydrochlorothiazide 12.5 mg tablet 12.5 mg PO DAILY Blood pressure 06/07/22 Unknown History vibegron 75 mg tablet (Gemtesa) 75 mg PO DAILY Overactive bladder 12/04/22 Unknown History apixaban 2.5 mg tablet 2.5 mg PO BID Anticoagulant 06/27/24 06/27/24 08:45 History cyanocobalamin (vitamin B-12) 1,000 mcg PO DAILY Supplement 06/27/24 Unknown History 1,000 mcg capsule metformin 500 mg tablet,extended 1,000 mg PO BID Diabetes 06/27/24 06/27/24 05:30 History release 24 hr methocarbamol 500 mg tablet 500 mg PO TID Muscle spasms 06/27/24 06/27/24 08:45 History polysaccharide iron complex 150 mg 150 mg PO DAILY Supplement 06/27/24 Unknown History iron capsule (Ferrex) acetaminophen 500 mg tablet 1,000 mg (2 x 500 mg) PO Q8 #0 tabs 07/15/24 Unknown Rx arginine 7 gram-glutam 7 1 packet PO BIDCM 30 days #60 ea 07/15/24 Unknown Rx gram-CaHMB 1.5 [id number]-min oral pwd pkt (Papa (with collagen)) doxycycline monohydrate 100 mg 100 mg PO BID 60 days #120 caps 07/15/24 Unknown Rx capsule losartan 100 mg tablet 100 mg PO DAILY 30 days #30 tabs 07/15/24 Unknown Rx oxycodone 5 mg tablet 5 - 10 mg (1 - 2 x 5 mg) PO Q4H 10/22/24 Unknown Rx PRN PRN Pain Score 4-10 7 days #84 tabs potassium chloride 20 mEq 20 meq PO DAILYCM 30 days #30 tabs 07/15/24 Unknown Rx tablet,extended release(part/cryst) sennosides 8.6 mg-docusate sodium 2 tab PO BID 30 days #120 tabs 07/15/24 Unknown Rx 50 mg tablet (Stimulant Laxative Plus) Allergy/AdvReac Type Severity Reaction Status Date / Time latex Allergy Severe Other Verified 12/05/23 22:32 shellfish derived Allergy Severe PASSED Verified 12/05/23 22:32 OUT, DIARRHEA adhesive Allergy Mild Rash Verified 12/05/23 22:32 levofloxacin AdvReac Intermediate WEAK, Verified 12/05/23 22:32 NAUSEA povidone AdvReac Mild Hives Verified 12/05/23 22:32 Surgical History History of bilateral cataract extraction History of colonoscopy S/P insertion of spinal cord stimulator History of partial thyroidectomy History of appendectomy History of left knee surgery History of hysterectomy History of cholecystectomy Social History household members: spouse Smoking Status: Never smoker Electronic Cigarette Use: not used second hand exposure: No alcohol intake: current alcohol intake frequency: a few times a month Alcohol type: wine substance use type: does not use Vital Signs Vital Signs Vital Signs: Weight Weight: 180 lb 13.313 oz Body Mass Index (BMI) 34.1 Physical Exam Const alert, oriented x3, no apparent distress, no limitations, healthy appearing and well nourished Constitutional Narrative: The patient's BMI is 34.1. General Appearance: cooperative, comfortable, well kempt and well developed Orientation / Consciousness: awake, oriented to person, oriented to place and oriented to time Exam Limitations: no limitations HEENT normocephalic and head/scalp atraumatic Head and Scalp: normal to inspection, normocephalic and atraumatic Face and Sinus: normal facial exam Nose: external nose normal External Ear: external ears normal Eyes EOMs intact bilaterally General Eye: normal appearance of both eyes Neck full ROM Chest inspection of chest normal Resp normal respiratory effort, normal air movement, no retractions and no use of accessory muscles Effort and Inspection: able to speak in complete sentences Cardio regular rate Extremity no calf tenderness General Extremity: Negative for clubbing or cyanosis Skin Wound Narrative: A dehiscent longitudinal incision is noted overlying the left knee. The dehiscence extends through all layers and into the subcutaneous tissues. There is a moderate amount of nonviable, necrotic, gangrenous tissue at the base of the dehiscent incision, which appears to be decreasing. The amount of nonviable and necrotic tissue continues to diminish with each successive clinic visit. The dry, necrotic eschar, noted at the patient's initial visit, is no longer present. There is no odor or drainage. There is no sign of infection or cellulitis. Dimensions are documented elsewhere. The size of the dehiscent wound appears to be diminishing, visibly and by means of measured dimensions. Hair: normal Neuro oriented x3, CN's II-XII intact bilaterally, moves all extremities, no focal motor deficits and no sensory deficits noted Sensorium / Orientation: awake, alert, oriented to person, oriented to place and oriented to time Psych Appearance: grossly normal and appropriate Attitude: calm Activity / Motor Behavior: appropriate eye contact Speech: normal speech Mood & Affect: euthymic mood Thought Process: normal thought process Thought Content: normal thought content Attention / Concentration: attention grossly intact Debridement Note Debridement Note Wound debrided: Dehiscent left knee incision with bioburden and nonviable tissue Laterality: Left Type of Debridement: Excisional debridement Anesthesia Used: 5% Lidocaine Gel and Cetacaine Depth: Down to and including healthy tissue and in the subcutaneous layer Percentage of wound debrided: 100 Instrument Used: 5mm curette Tissue Removed: Bioburden and nonviable tissue Severity: Fat Layer Exposed Amount of bleeding with debridement: Mild Bleeding Controlled with: Compression and gauze Patient tolerated procedure: Patient tolerated procedure well Post-Debridement Measurements and Additional Note: Post-Debridement Measurements/Treatment WC - Nurse 1 - General Ulcer Assessment Start: 07/29/24 13:12 Freq: Status: Active Protocol: KENNY Activity Type Activity Date Activity User E-sign Co-sign Detail Recorded Client Recorded Date Recorded By Document 07/29/24 13:12 RB [id number] 07/29/24 13:25 RB Document 08/05/24 15:02 KW [id number] 08/05/24 15:10 KW Document 08/12/24 14:22 KW [id number] 08/12/24 14:36 KW 07/29/24 08/05/24 08/12/24 13:12 15:02 14:22 - Today's Visit Information Type of service Follow-up Visit Follow-up Visit Follow-up Visit (Physician/STEAM ROLLER OPERATOR (Physician/STEAM ROLLER OPERATOR (Physician/STEAM ROLLER OPERATOR ) ) ) Arrival Mode Wheelchair Wheelchair Wheelchair Transfer Assistance None Accompanied by Patient Identification Verified (Name & Yes Yes Yes ) Patient Requires Transmission-Based No Precautions Height and Weight Body Mass Index (BMI) 34.1 34.1 34.1 BMI Classification Obese Obese Obese Vital Signs Temperature (97.8 F-99.1 F) 97.4 F L 97.0 F L 97.2 F L Temperature Source Temporal Temporal Temporal Pulse Rate (60-100) 84 72 69 Pulse Location Monitor Monitor Monitor Respiratory Rate (12-18) 18 18 18 Respiratory rate source Observation Observation Observation Oxygen Delivery Method Room Air Room Air Blood Pressure (90/60-120/80) 145/65 H 124/53 H 99/54 L Blood Pressure Mean 91 76 69 Source Monitor Monitor Monitor Position Semi-Fowlers Semi-Fowlers Sitting Blood Pressure Location Left Arm Left Arm Left Arm History Since Last Visit- (Skip if this is Patient's initial visit) Have you changed medications since your No No No last visit? Any new allergies or adverse reactions No No No Had a fall/change in ADL's that may No No No increase risk of falls Signs or symptoms of abuse and/or No No No neglect since last visit Have you been in the hospital since your No No No last visit? Has dressing in place as prescribed Yes Yes Yes Has compression in place as prescribed Yes Yes Yes Has offloadiing in place as prescribed No N/A N/A Experienced any changes in pain level or No No No management Left Footwear Regular Shoe Slipper Right Footwear Regular Shoe Slipper Pain Scale: 0-10 Numeric Is Patient Pain Free? Yes Yes Yes - Nurse 1 - General Ulcer Measurement Start: 07/29/24 13:12 Freq: Status: Active Protocol: Activity Type Activity Date Activity User E-sign Co-sign Detail Recorded Client Recorded Date Recorded By Document 07/29/24 13:12 RB [id number] 07/29/24 13:25 RB Document 08/05/24 15:02 [id number] 08/05/24 15:10 KW Document 08/12/24 14:22 KW [id number] 08/12/24 14:36 KW 07/29/24 08/05/24 08/12/24 13:12 15:02 14:22 Wound Center Nurse 1 #1,.L knee -Combined with other wound No -Current Size (cm) - Length 13.4 13.6 13 -Current Size (cm) - Width 2.3 2.7 2.8 -Current Size (cm) - Depth 0.4 0.7 0.5 -Total Square Cm 30.82 36.72 36.4 -Photo Taken Yes -Tunneling No -Undermining/Tunneling No -Circular Undermining No -Exudate Amt Large Medium Small -Exudate Type Serosanguineous Serosanguineous Serosanguineous -Wound Margin Thickened & Distinct, Distinct, Rolled Under Outline Outline Attached Attached -Granulation Amt Medium (34-66%) Medium (34-66%) Medium (34-66%) -Granulation Quality [place] Red -Slough/Fibrin Yes -Necrosis Amt Small (1-33%) Medium (34-66%) Medium (34-66%) -Necrotic Tissue Type Adherent Slough Adherent Slough Adherent Slough -Structure Exposed N/A -Texture (Anali-wound Skin Appearance) Assessed, Assessed Assessed Scarring -Moisture (Anali-wound Skin Appearance) Assessed Assessed Assessed -Color (Anali-wound Skin Appearance) Assessed Assessed Assessed, Erythema -Temperature (Anali-wound Skin No Abnormality No Abnormality No Abnormality Appearance) (Pt Warm) (Pt Warm) (Pt Warm) -Tenderness on Palpation (Anali-wound No No No Skin Appearance) -Ulcer Cleansing Wound Cleanser Soap and Water Soap and Water -Foul Odor after Cleansing No No No -Anesthetic Used 5% Lidocaine 4% Lidocaine 4% Lidocaine Gel Solution Solution WC - Nurse 2 - General Ulcer CM Notes Start: 07/29/24 13:12 Freq: Status: Active Protocol: Activity Type Activity Date Activity User E-sign Co-sign Detail Recorded Client Recorded Date Recorded By Document 07/29/24 14:17 DS [id number] 07/29/24 14:28 DS Edit Result 07/29/24 14:17 DS (1) [id number] 07/29/24 14:35 DS Document 08/05/24 15:47 DS [id number] 08/05/24 15:52 DS Document 08/12/24 15:05 DS [id number] 08/12/24 15:10 DS (1) #1,.L knee - Debridement, SubQ, ea addt'l 20sq cm => 1 or part thereof 07/29/24 08/05/24 08/12/24 14:17 15:47 15:05 Wound Center Nurse 2 #1,.L knee -Time 14:17 15:45 15:05 -Correct Patient Yes Yes Yes -Correct Side, Site, Position Yes Yes Yes -Correct Procedure Yes Yes Yes -Procedure Performed Yes Yes Yes -Type of Procedure Debridement Debridement Debridement -Clinical Debridement Subcutaneous Subcutaneous Subcutaneous -Tissue Removed Subcutaneous Subcutaneous Subcutaneous -Post Debridement (cm) - Length 13.5 13.1 13.1 -Post Debridement (cm) - Width 2.6 3.0 2.6 -Post Debridement (cm) - Depth 1.0 1.2 0.9 -Total Square (Post) (cm) 35.10 39.30 34.06 -Area of Debridement (cm) - Length 13.5 13.1 13.1 -Area of Debridement (cm) - Width 2.6 3.0 2.6 -Total Square (Area) (cm) 35.10 39.30 34.06 -Tunneling No No No -Undermining/Tunneling No No No -Circular Undermining No No -Wound/Ulcer Outcome Not Healed Not Healed Not Healed -Ulcer Cleansing Rinsed/ Rinsed/ Rinsed/ Irrigated with Irrigated with Irrigated with Saline Saline Saline -Bioengineered Tissue No No No -Bleeding Controlled with Pressure Pressure Silver Nitrate -Treatment Response Procedure Procedure Procedure Tolerated Well Tolerated Well Tolerated Well -Debridement - Subq, 1st 20sq cm Yes Yes Yes -Debridement, SubQ, ea addt'l 20sq cm 1 1 1 or part thereof Pain Scale: 0-10 Numeric Is Patient Pain Free? Yes Yes Yes WC - Nurse 3 - General Ulcer D/C NN Start: 07/29/24 13:12 Freq: Status: Active Protocol: Activity Type Activity Date Activity User E-sign Co-sign Detail Recorded Client Recorded Date Recorded By Document 07/29/24 14:34 RB [id number] 07/29/24 14:36 RB Document 08/05/24 15:59 KW [id number] 08/05/24 16:00 KW Document 08/12/24 15:17 KW [id number] 08/12/24 15:18 KW 07/29/24 08/05/24 08/12/24 14:34 15:59 15:17 Wound Care Center Nurse 3 #1,.L knee -Ulcer Cleansing Rinsed/ Irrigated with Saline -Primary Dressing Applied Nugauze, Plain Nugauze, Plain 1/4in /4in -Other Dressing santyl nickel wet to dry to the upper thickness/ gauze superior moistened gauze incision, santyl to the rest -Primary Dressing Covered/Secured with Dry Gauze,Dry Dry Gauze & Dry Gauze & Gauze & Roll Roll Gauze, Roll Gauze, Gauze,Secured Secured with Secured with with Tape Tape Tape -Other Covering ABD -Nugauze, Plain /4in 1 1 Left -Compression Wrap Randy Wrap -Tubular Bandage Single Layer -Size of Tubigrip Used Size E -Size E ($) 1 Treatment Response Procedure Tolerated Well Pain Scale: 0-10 Numeric Is Patient Pain Free? Yes Yes Yes WC - Visit Discharge Discharge Condition Stable Ambulatory Status Wheelchair Transportation Private Auto Medication Reconcilliation completed & No provided to patient/care provider Clinical Summary of Care Provided Yes Charges/Coding Multi Select Codes Integumentary Integumentary CPT Codes: 76863 [place] subq tissue 20 sq cm/< (69015 x 1 left knee; 33908 x1 left knee) Assessment/Plan Assessment/Plan (1) Dehiscence of incision: CODE(S): T81.31XA - Disruption of external operation (surgical) wound, not elsewhere classified, initial encounter QUALIFIERS: Encounter type: subsequent encounter Qualified Code(s): T81.31XD - Disruption of external operation (surgical) wound, not elsewhere classified, subsequent encounter (2) Gangrene associated with type 2 diabetes mellitus: CODE(S): E11.52 - Type 2 diabetes mellitus with diabetic peripheral angiopathy with gangrene (3) Status post revision of total replacement of left knee: CODE(S): Z96.652 - Presence of left artificial knee joint (4) Failed total left knee replacement: CODE(S): T84.093A - Other mechanical complication of internal left knee prosthesis, initial encounter QUALIFIERS: Encounter type: subsequent encounter Qualified Code(s): T84.093D - Other mechanical complication of internal left knee prosthesis, subsequent encounter (5) History of left knee surgery: CODE(S): Z98.890 - Other specified postprocedural states (6) Diabetes: CODE(S): E11.9 - Type 2 diabetes mellitus without complications QUALIFIERS: Diabetes mellitus type: type 2 (7) Diabetic polyneuropathy: CODE(S): E11.42 - Type 2 diabetes mellitus with diabetic polyneuropathy (8) GERD (gastroesophageal reflux disease): CODE(S): K21.9 - Gastro-esophageal reflux disease without esophagitis (9) Hyperlipemia: CODE(S): E78.5 - Hyperlipidemia, unspecified (10) Iron deficiency anemia: CODE(S): D50.9 - Iron deficiency anemia, unspecified (11) Essential (primary) hypertension: CODE(S): I10 - Essential (primary) hypertension (12) Debility: CODE(S): R53.81 - Other malaise (13) Status post total right knee replacement: CODE(S): Z96.651 - Presence of right artificial knee joint (14) Osteoarthritis: (15) History of DVT (deep vein thrombosis): CODE(S): Z86.718 - Personal history of other venous thrombosis and embolism (16) Dyslipidemia: CODE(S): E78.5 - Hyperlipidemia, unspecified (17) Hypothyroidism: CODE(S): E03.9 - Hypothyroidism, unspecified (18) Ocular myasthenia gravis: CODE(S): G70.00 - Myasthenia gravis without (acute) exacerbation (19) History of partial thyroidectomy: CODE(S): E89.0 - Postprocedural hypothyroidism (20) History of appendectomy: CODE(S): Z90.49 - Acquired absence of other specified parts of digestive tract (21) History of hysterectomy: CODE(S): Z90.710 - Acquired absence of both cervix and uterus (22) History of cholecystectomy: CODE(S): Z90.49 - Acquired absence of other specified parts of digestive tract (23) Non-smoker: CODE(S): Z78.9 - Other specified health status (24) History of hiatal hernia: CODE(S): Z87.19 - Personal history of other diseases of the digestive system (25) History of revision of total replacement of left knee joint: CODE(S): Z96.652 - Presence of left artificial knee joint (26) History of bilateral cataract extraction: CODE(S): Z98.41 - Cataract extraction status, right eye; Z98.42 - Cataract extraction status, left eye PLAN: Plan This is a 73-year-old female who underwent the fourth revision of a left total knee replacement on June 19, 2024. She developed gangrene, necrosis, and dehiscence at the surgical site. As a result, the patient presented for definitive evaluation and management with respect to her surgical wound. A large amount of necrotic and nonviable tissue has been eliminated from the site of the patient's surgical wound over the last several weeks. We are to continue the use of collagenase Santyl topically, which will be applied by the patient on a daily basis. She and her have been instructed in the appropriate means of application. A renewal of the collagenase Santyl prescription has been issued. A small satellite wound is noted superior to the dehiscent incision, which is to be packed with moistened 1/4 inch Nu-Gauze on a daily basis. The patient has been encouraged to optimize her nutritional intake, as well as her diabetes management. She has been encouraged to continue taking Papa as a nutritional supplement. She is to coordinate with her primary care physician with regard to diabetes management. She is to continue on her course of doxycycline as prescribed by her other physicians. She has been encouraged to elevate her left lower extremity to prevent and minimize swelling. Elevation is to be to heart level, during both daytime and nighttime hours. Avoidance of prolonged idle sitting has been encouraged. Activity as tolerated encouraged, within the boundaries as set by her orthopedic surgeon. Tubigrip's have been dispensed for compression purposes. The patient's recent culture results were negative. The patient is to follow-up in 1 week for reevaluation. She is also to be seen by her orthopedic surgeon in 1 week as well. It is anticipated that the patient's wound management may transition to the use of negative pressure wound therapy in the near future. Total time: 25 minutes
[2024-08-19 14:33] VITALS: BP 114/48; PULSE 64; RESP 18; TEMP 36.2; BMI 34.1
--- NOTE | 2024-08-19 16:33 | PCM.WC.HP ---
History of Present Illness Date of Service: 08/19/24 Chief Complaint: Dehiscent, necrotic surgical wound of the left knee History of Wound: This is a 73-year-old female with a history of left total knee replacement many years ago, which has required several revisions. The most recent revision was performed on June 19, 2024, at the [facility]. This was the fourth left knee revision. Prior revisions required flap reconstruction, and the Plastic Surgery service was involved in the patient's most recent surgery. Postoperatively, the patient WAS placed on oral doxycycline, which is expected to continue for 3 months. The patient's left lower extremity was locked in extension for 2 weeks. She is now weightbearing on the involved limb. She was admitted to the Transitional Care Unit at [facility] for several weeks postoperatively on June 27, 2024. She has now returned to home, with salon shampoo assistant care from her . The patient developed a surgical wound dehiscence and marjorie necrosis and gangrene at the site of her incision. A wound VAC was used initially at the surgical site, but the patient had been using Xeroform more recently. The patient suffers from multiple pre-existing medical conditions, listed herein. She does not smoke. She is using Papa as a nutritional supplement. Her BMI is 34.1. [facility] Medical History Gangrene associated with type 2 diabetes mellitus Dehiscence of incision History of revision of total replacement of left knee joint Wears glasses Alcohol use History of steroid therapy Bladder disease Neuropathy Back pain Dietary restriction History of pain when walking Pain Myasthenia gravis Ambulates with cane Rheumatoid arthritis Low iron History of DVT (deep vein thrombosis) Hyperlipemia Difficulty swallowing History of hiatal hernia Gastric reflux Non-smoker Shortness of breath on exertion Chronic cough PONV (postoperative nausea and vomiting) Leg cramps History of edema History of stress test Hypertension Thyroid disease Cataracts, bilateral History of UTI Arthritis Home Medications ?Medication ?Instructions ?Recorded ?Last Taken ?Type folic acid 1 mg tablet 1 mg PO DAILY supplement 10/13/13 06/06/22 History atorvastatin 10 mg tablet 5 mg PO .QOD Cholesterol 09/06/21 06/26/24 18:45 History cholecalciferol (vitamin D3) 50 50 mcg PO DAILY supplement 09/06/21 06/27/24 History mcg (2,000 unit) capsule glimepiride 4 mg tablet 4 mg PO BID blood sugar 09/06/21 06/27/24 History ascorbic acid (vitamin C) 500 mg 500 mg PO DAILY supplement 02/06/22 06/27/24 History tablet (Vitamin C) omeprazole magnesium 20 mg 20 mg PO DAILY GERD 02/06/22 06/06/22 History tablet,delayed release (Prilosec OTC) dapagliflozin propanediol 5 mg 10 mg PO DAILY blood sugar 05/25/22 06/06/22 History tablet (Farxiga) levothyroxine 125 mcg tablet 100 mcg PO DAILY thyroid 05/25/22 06/27/24 History pregabalin 75 mg capsule (Lyrica) 100 mg PO TID pain 05/25/22 06/06/22 History hydrochlorothiazide 12.5 mg tablet 12.5 mg PO DAILY Blood pressure 06/07/22 Unknown History vibegron 75 mg tablet (Gemtesa) 75 mg PO DAILY Overactive bladder 12/04/22 Unknown History apixaban 2.5 mg tablet 2.5 mg PO BID Anticoagulant 06/27/24 06/27/24 08:45 History cyanocobalamin (vitamin B-12) 1,000 mcg PO DAILY Supplement 06/27/24 Unknown History 1,000 mcg capsule metformin 500 mg tablet,extended 1,000 mg PO BID Diabetes 06/27/24 06/27/24 05:30 History release 24 hr methocarbamol 500 mg tablet 500 mg PO TID Muscle spasms 06/27/24 06/27/24 08:45 History polysaccharide iron complex 150 mg 150 mg PO DAILY Supplement 06/27/24 Unknown History iron capsule (Ferrex) acetaminophen 500 mg tablet 1,000 mg (2 x 500 mg) PO Q8 #0 tabs 07/15/24 Unknown Rx arginine 7 gram-glutam 7 1 packet PO BIDCM 30 days #60 ea 07/15/24 Unknown Rx gram-CaHMB 1.5 tmya-sawhx-zf-min oral pwd pkt (Papa (with collagen)) doxycycline monohydrate 100 mg 100 mg PO BID 60 days #120 caps 07/15/24 Unknown Rx capsule losartan 100 mg tablet 100 mg PO DAILY 30 days #30 tabs 07/15/24 Unknown Rx oxycodone 5 mg tablet 5 - 10 mg (1 - 2 x 5 mg) PO Q4H 07/15/24 Unknown Rx PRN PRN Pain Score 4-10 7 days #84 tabs potassium chloride 20 mEq 20 meq PO DAILYCM 30 days #30 tabs 07/15/24 Unknown Rx tablet,extended release(part/cryst) sennosides 8.6 mg-docusate sodium 2 tab PO BID 30 days #120 tabs 07/15/24 Unknown Rx 50 mg tablet (Stimulant Laxative Plus) Allergy/AdvReac Type Severity Reaction Status Date / Time latex Allergy Severe Other Verified 12/05/23 22:32 shellfish derived Allergy Severe PASSED Verified 12/05/23 22:32 OUT, DIARRHEA adhesive Allergy Mild Rash Verified 12/05/23 22:32 levofloxacin AdvReac Intermediate WEAK, Verified 12/05/23 22:32 NAUSEA povidone AdvReac Mild Hives Verified 12/05/23 22:32 Surgical History History of bilateral cataract extraction History of colonoscopy S/P insertion of spinal cord stimulator History of partial thyroidectomy History of appendectomy History of left knee surgery History of hysterectomy History of cholecystectomy Social History household members: spouse Smoking Status: Never smoker Electronic Cigarette Use: not used second hand exposure: No alcohol intake: current alcohol intake frequency: a few times a month Alcohol type: wine substance use type: does not use Vital Signs Vital Signs Vital Signs: 08/19/24 14:33 Temperature 97.1 F L Temperature Source Temporal Pulse Rate 64 Respiratory Rate 18 Blood Pressure 114/48 L Blood Pressure Mean 70 Blood Pressure Source Monitor Blood Pressure Position Sitting Blood Pressure Location Left Forearm Oxygen Delivery Method Room Air Weight Weight: 180 lb 13.313 oz Body Mass Index (BMI) 34.1 Physical Exam Const alert, oriented x3, no apparent distress, no limitations, healthy appearing and well nourished Constitutional Narrative: The patient's BMI is 34.1. General Appearance: cooperative, comfortable, well kempt and well developed Orientation / Consciousness: awake, oriented to person, oriented to place and oriented to time Exam Limitations: no limitations HEENT normocephalic and head/scalp atraumatic Head and Scalp: normal to inspection, normocephalic and atraumatic Face and Sinus: normal facial exam Nose: external nose normal External Ear: external ears normal Eyes EOMs intact bilaterally General Eye: normal appearance of both eyes Neck full ROM Chest inspection of chest normal Resp normal respiratory effort, normal air movement, no retractions and no use of accessory muscles Effort and Inspection: able to speak in complete sentences Cardio regular rate Extremity no calf tenderness General Extremity: Negative for clubbing or cyanosis Skin Wound Narrative: A dehiscent longitudinal incision is noted overlying the left knee. The dehiscence extends through all layers and into the subcutaneous tissues. There is a small amount of nonviable tissue at the base of the dehiscent incision, which appears to be decreasing with each successive clinic visit. The dry, necrotic eschar, noted at the patient's initial visit, is no longer present. There is no odor or drainage. There is no sign of infection or cellulitis. Dimensions are documented elsewhere. The size of the dehiscent wound appears to be diminishing, visibly and by means of measured dimensions. Centrally, there is a large area of healthy, pink, granulation tissue, which continues to increase. Hair: normal Neuro oriented x3, CN's II-XII intact bilaterally, moves all extremities, no focal motor deficits and no sensory deficits noted Sensorium / Orientation: awake, alert, oriented to person, oriented to place and oriented to time Psych Appearance: grossly normal, appropriate and well kempt Attitude: calm Activity / Motor Behavior: appropriate eye contact Speech: normal speech Mood & Affect: euthymic mood Thought Process: normal thought process Thought Content: normal thought content Attention / Concentration: attention grossly intact Debridement Note Debridement Note Wound debrided: Dehiscent left knee incision with bioburden and nonviable tissue Laterality: Left Type of Debridement: Excisional debridement Anesthesia Used: 5% Lidocaine Gel and Cetacaine Depth: Down to and including healthy tissue and in the subcutaneous layer Percentage of wound debrided: 100 Instrument Used: 5mm curette Tissue Removed: Bioburden and nonviable tissue Severity: Fat Layer Exposed Amount of bleeding with debridement: Mild Bleeding Controlled with: Compression and gauze Patient tolerated procedure: Patient tolerated procedure well Post-Debridement Measurements and Additional Note: Post-Debridement Measurements/Treatment GINA - Nurse 1 - General Ulcer Assessment Start: 07/29/24 13:12 Freq: Status: Active Protocol: KENNY Activity Type Activity Date Activity User E-sign Co-sign Detail Recorded Client Recorded Date Recorded By Document 11/05/24 13:12 RB [id number] 07/29/24 13:25 RB Document 08/05/24 15:02 KW [id number] 08/05/24 15:10 KW Document 08/12/24 14:22 KW [id number] 08/12/24 14:36 KW Document 08/19/24 14:33 KW [id number] 08/19/24 14:41 KW 07/29/24 08/05/24 08/12/24 13:12 15:02 14:22 WC - Today's Visit Information Type of service Follow-up Visit Follow-up Visit Follow-up Visit (Physician/WOOD[employer] INSTRUMENTS INSPECTOR (Physician/WOOD[employer] INSTRUMENTS INSPECTOR (Physician/WOOD[employer] INSTRUMENTS INSPECTOR ) ) ) Arrival Mode Wheelchair Wheelchair Wheelchair Transfer Assistance None Accompanied by Patient Identification Verified (Name & Yes Yes Yes ) Patient Requires Transmission-Based No Precautions Height and Weight Body Mass Index (BMI) 34.1 34.1 34.1 BMI Classification Obese Obese Obese Vital Signs Temperature (97.8 F-99.1 F) 97.4 F L 97.0 F L 97.2 F L Temperature Source Temporal Temporal Temporal Pulse Rate (60-100) 84 72 69 Pulse Location Monitor Monitor Monitor Respiratory Rate (12-18) 18 18 18 Respiratory rate source Observation Observation Observation Oxygen Delivery Method Room Air Room Air Blood Pressure (90/60-120/80) 145/65 H 124/53 H 99/54 L Blood Pressure Mean 91 76 69 Source Monitor Monitor Monitor Position Semi-Fowlers Semi-Fowlers Sitting Blood Pressure Location Left Arm Left Arm Left Arm History Since Last Visit- (Skip if this is Patient's initial visit) Have you changed medications since your No No No last visit? Any new allergies or adverse reactions No No No Had a fall/change in ADL's that may No No No increase risk of falls Signs or symptoms of abuse and/or No No No neglect since last visit Have you been in the hospital since your No No No last visit? Has dressing in place as prescribed Yes Yes Yes Has compression in place as prescribed Yes Yes Yes Has offloadiing in place as prescribed No N/A N/A Experienced any changes in pain level or No No No management Left Footwear Regular Shoe Slipper Right Footwear Regular Shoe Slipper Pain Scale: 0-10 Numeric Is Patient Pain Free? Yes Yes Yes 08/19/24 14:33 - Today's Visit Information Type of service Follow-up Visit (Physician/WOOD[employer] INSTRUMENTS INSPECTOR ) Arrival Mode Wheelchair Transfer Assistance Accompanied by Patient Identification Verified (Name & Yes ) Patient Requires Transmission-Based Precautions Height and Weight Body Mass Index (BMI) 34.1 BMI Classification Obese Vital Signs Temperature (97.8 F-99.1 F) 97.1 F L Temperature Source Temporal Pulse Rate (60-100) 64 Pulse Location Monitor Respiratory Rate (12-18) 18 Respiratory rate source Observation Oxygen Delivery Method Room Air Blood Pressure (90/60-120/80) 114/48 L Blood Pressure Mean 70 Source Monitor Position Sitting Blood Pressure Location Left Forearm History Since Last Visit- (Skip if this is Patient's initial visit) Have you changed medications since your No last visit? Any new allergies or adverse reactions No Had a fall/change in ADL's that may No increase risk of falls Signs or symptoms of abuse and/or No neglect since last visit Have you been in the hospital since your No last visit? Has dressing in place as prescribed Yes Has compression in place as prescribed Yes Has offloadiing in place as prescribed N/A Experienced any changes in pain level or No management Left Footwear Regular Shoe Right Footwear Regular Shoe Pain Scale: 0-10 Numeric Is Patient Pain Free? Yes - Nurse 1 - General Ulcer Measurement Start: 07/29/24 13:12 Freq: Status: Active Protocol: Activity Type Activity Date Activity User E-sign Co-sign Detail Recorded Client Recorded Date Recorded By Document 07/29/24 13:12 RB [id number] 07/29/24 13:25 RB Document 08/05/24 15:02 KW [id number] 08/05/24 15:10 KW Document 08/12/24 14:22 KW [id number] 08/12/24 14:36 KW Document 08/19/24 14:33 KW [id number] 08/19/24 14:41 KW 07/29/24 08/05/24 08/12/24 13:12 15:02 14:22 Wound Center Nurse 1 #1,.L knee -Combined with other wound No -Current Size (cm) - Length 13.4 13.6 13 -Current Size (cm) - Width 2.3 2.7 2.8 -Current Size (cm) - Depth 0.4 0.7 0.5 -Total Square Cm 30.82 36.72 36.4 -Date of Last Picture (Recall this field) -Photo Taken Yes -Tunneling No -Undermining/Tunneling No -Circular Undermining No -Exudate Amt Large Medium Small -Exudate Type Serosanguineous Serosanguineous Serosanguineous -Wound Margin Thickened & Distinct, Distinct, Rolled Under Outline Outline Attached Attached -Granulation Amt Medium (34-66%) Medium (34-66%) Medium (34-66%) -Granulation Quality [place] Red -Slough/Fibrin Yes -Necrosis Amt Small (1-33%) Medium (34-66%) Medium (34-66%) -Necrotic Tissue Type Adherent Slough Adherent Slough Adherent Slough -Structure Exposed N/A -Texture (Anali-wound Skin Appearance) Assessed, Assessed Assessed Scarring -Moisture (Anali-wound Skin Appearance) Assessed Assessed Assessed -Color (Anali-wound Skin Appearance) Assessed Assessed Assessed, Erythema -Temperature (Anali-wound Skin No Abnormality No Abnormality No Abnormality Appearance) (Pt Warm) (Pt Warm) (Pt Warm) -Tenderness on Palpation (Anali-wound No No No Skin Appearance) -Ulcer Cleansing Wound Cleanser Soap and Water Soap and Water -Foul Odor after Cleansing No No No -Anesthetic Used 5% Lidocaine 4% Lidocaine 4% Lidocaine Gel Solution Solution 08/19/24 14:33 Wound Center Nurse 1 #1,.L knee -Combined with other wound -Current Size (cm) - Length 13.5 -Current Size (cm) - Width 2.5 -Current Size (cm) - Depth 0.9 -Total Square Cm 33.75 -Date of Last Picture (Recall this 08/19/24 field) -Photo Taken -Tunneling -Undermining/Tunneling -Circular Undermining -Exudate Amt Small -Exudate Type Serosanguineous -Wound Margin Thickened -Granulation Amt Small (1-33%) -Granulation Quality Red -Slough/Fibrin -Necrosis Amt Large (67-100%) -Necrotic Tissue Type Adherent Slough -Structure Exposed -Texture (Anali-wound Skin Appearance) Assessed -Moisture (Anali-wound Skin Appearance) Assessed -Color (Anali-wound Skin Appearance) Assessed -Temperature (Anali-wound Skin No Abnormality Appearance) (Pt Warm) -Tenderness on Palpation (Anali-wound No Skin Appearance) -Ulcer Cleansing Rinsed/ Irrigated with Saline -Foul Odor after Cleansing No -Anesthetic Used 4% Lidocaine Solution WC - Nurse 2 - General Ulcer CM Notes Start: 07/29/24 13:12 Freq: Status: Active Protocol: Activity Type Activity Date Activity User E-sign Co-sign Detail Recorded Client Recorded Date Recorded By Document 07/29/24 14:17 DS [id number] 07/29/24 14:28 DS Edit Result 07/29/24 14:17 DS (1) [id number] 07/29/24 14:35 DS Document 08/05/24 15:47 DS [id number] 08/05/24 15:52 DS Document 08/12/24 15:05 DS [id number] 08/12/24 15:10 DS Document 08/19/24 15:31 DS [id number] 08/19/24 15:35 DS (1) #1,.L knee - Debridement, SubQ, ea addt'l 20sq cm => 1 or part thereof 07/29/24 08/05/24 08/12/24 14:17 15:47 15:05 Wound Center Nurse 2 #1,.L knee -Time 14:17 15:45 15:05 -Correct Patient Yes Yes Yes -Correct Side, Site, Position Yes Yes Yes -Correct Procedure Yes Yes Yes -Procedure Performed Yes Yes Yes -Type of Procedure Debridement Debridement Debridement -Clinical Debridement Subcutaneous Subcutaneous Subcutaneous -Tissue Removed Subcutaneous Subcutaneous Subcutaneous -Post Debridement (cm) - Length 13.5 13.1 13.1 -Post Debridement (cm) - Width 2.6 3.0 2.6 -Post Debridement (cm) - Depth 1.0 1.2 0.9 -Total Square (Post) (cm) 35.10 39.30 34.06 -Area of Debridement (cm) - Length 13.5 13.1 13.1 -Area of Debridement (cm) - Width 2.6 3.0 2.6 -Total Square (Area) (cm) 35.10 39.30 34.06 -Tunneling No No No -Undermining/Tunneling No No No -Circular Undermining No No -Wound/Ulcer Outcome Not Healed Not Healed Not Healed -Ulcer Cleansing Rinsed/ Rinsed/ Rinsed/ Irrigated with Irrigated with Irrigated with Saline Saline Saline -Bioengineered Tissue No No No -Bleeding Controlled with Pressure Pressure Silver Nitrate -Treatment Response Procedure Procedure Procedure Tolerated Well Tolerated Well Tolerated Well -Debridement - Subq, 1st 20sq cm Yes Yes Yes -Debridement, SubQ, ea addt'l 20sq cm 1 1 1 or part thereof Pain Scale: 0-10 Numeric Is Patient Pain Free? Yes Yes Yes 08/19/24 15:31 Wound Center Nurse 2 #1,.L knee -Time 15:31 -Correct Patient Yes -Correct Side, Site, Position Yes -Correct Procedure Yes -Procedure Performed Yes -Type of Procedure Debridement -Clinical Debridement Subcutaneous -Tissue Removed Subcutaneous -Post Debridement (cm) - Length 13.2 -Post Debridement (cm) - Width 2.8 -Post Debridement (cm) - Depth 1.0 -Total Square (Post) (cm) 36.96 -Area of Debridement (cm) - Length 13.2 -Area of Debridement (cm) - Width 2.8 -Total Square (Area) (cm) 36.96 -Tunneling No -Undermining/Tunneling No -Circular Undermining No -Wound/Ulcer Outcome Not Healed -Ulcer Cleansing Rinsed/ Irrigated with Saline -Bioengineered Tissue No -Bleeding Controlled with Pressure -Treatment Response Procedure Tolerated Well -Debridement - Subq, 1st 20sq cm Yes -Debridement, SubQ, ea addt'l 20sq cm 1 or part thereof Pain Scale: 0-10 Numeric Is Patient Pain Free? Yes - Nurse 3 - General Ulcer D/C NN Start: 07/29/24 13:12 Freq: Status: Active Protocol: Activity Type Activity Date Activity User E-sign Co-sign Detail Recorded Client Recorded Date Recorded By Document 07/29/24 14:34 RB [id number] 07/29/24 14:36 RB Document 08/05/24 15:59 KW [id number] 08/05/24 16:00 KW Document 08/12/24 15:17 KW [id number] 08/12/24 15:18 KW Document 08/19/24 15:58 RB [id number] 08/19/24 16:01 RB 07/29/24 08/05/24 08/12/24 14:34 15:59 15:17 Wound Care Center Nurse 3 #1,.L knee -Ulcer Cleansing Rinsed/ Irrigated with Saline -Primary Dressing Applied Nugauze, Plain Nugauze, Plain 1/4in 1/4in -Other Dressing santyl nickel wet to dry to the upper thickness/ gauze superior moistened gauze incision, santyl to the rest -Primary Dressing Covered/Secured with Dry Gauze,Dry Dry Gauze & Dry Gauze & Gauze & Roll Roll Gauze, Roll Gauze, Gauze,Secured Secured with Secured with with Tape Tape Tape -Other Covering ABD -Nugauze, Iodoform 1/4in -Nugauze, Plain 1/4in 1 1 Left -Compression Wrap Randy Wrap -Tubular Bandage Single Layer -Size of Tubigrip Used Size E -Size E ($) 1 -Other Treatment Response Procedure Tolerated Well Pain Scale: 0-10 Numeric Is Patient Pain Free? Yes Yes Yes WC - Visit Discharge Discharge Condition Stable Ambulatory Status Wheelchair Transportation Private Auto Medication Reconcilliation completed & No provided to patient/care provider Clinical Summary of Care Provided Yes 08/19/24 15:58 Wound Care Center Nurse 3 #1,.L knee -Ulcer Cleansing Rinsed/ Irrigated with Saline -Primary Dressing Applied Nugauze, Iodoform /4in -Other Dressing HYDROGEL -Primary Dressing Covered/Secured with Dry Gauze,Dry Gauze & Roll Gauze,Secured with Tape -Other Covering -Nugauze, Iodoform /4in 1 -Nugauze, Plain 1/4in Left -Compression Wrap -Tubular Bandage -Size of Tubigrip Used -Size E ($) -Other RANDY Treatment Response Procedure Tolerated Well Pain Scale: 0-10 Numeric Is Patient Pain Free? Yes WC - Visit Discharge Discharge Condition Stable Ambulatory Status Wheelchair Transportation Private Auto Medication Reconcilliation completed & No provided to patient/care provider Clinical Summary of Care Provided Yes Charges/Coding Multi Select Codes Integumentary Integumentary CPT Codes: 76377 [place] subq tissue 20 sq cm/< (32381 x 1; 27101 x 1) Assessment/Plan Assessment/Plan (1) Dehiscence of incision: CODE(S): T81.31XA - Disruption of external operation (surgical) wound, not elsewhere classified, initial encounter QUALIFIERS: Encounter type: subsequent encounter Qualified Code(s): T81.31XD - Disruption of external operation (surgical) wound, not elsewhere classified, subsequent encounter (2) Gangrene associated with type 2 diabetes mellitus: CODE(S): E11.52 - Type 2 diabetes mellitus with diabetic peripheral angiopathy with gangrene (3) Status post revision of total replacement of left knee: CODE(S): Z96.652 - Presence of left artificial knee joint (4) Failed total left knee replacement: CODE(S): T84.093A - Other mechanical complication of internal left knee prosthesis, initial encounter QUALIFIERS: Encounter type: subsequent encounter Qualified Code(s): T84.093D - Other mechanical complication of internal left knee prosthesis, subsequent encounter (5) History of left knee surgery: CODE(S): Z98.890 - Other specified postprocedural states (6) Diabetes: CODE(S): E11.9 - Type 2 diabetes mellitus without complications QUALIFIERS: Diabetes mellitus type: type 2 (7) Diabetic polyneuropathy: CODE(S): E11.42 - Type 2 diabetes mellitus with diabetic polyneuropathy (8) GERD (gastroesophageal reflux disease): CODE(S): K21.9 - Gastro-esophageal reflux disease without esophagitis (9) Hyperlipemia: CODE(S): E78.5 - Hyperlipidemia, unspecified (10) Iron deficiency anemia: CODE(S): D50.9 - Iron deficiency anemia, unspecified (11) Essential (primary) hypertension: CODE(S): I10 - Essential (primary) hypertension (12) Debility: CODE(S): R53.81 - Other malaise (13) Status post total right knee replacement: CODE(S): Z96.651 - Presence of right artificial knee joint (14) Osteoarthritis: (15) History of DVT (deep vein thrombosis): CODE(S): Z86.718 - Personal history of other venous thrombosis and embolism (16) Dyslipidemia: CODE(S): E78.5 - Hyperlipidemia, unspecified (17) Hypothyroidism: CODE(S): E03.9 - Hypothyroidism, unspecified (18) Ocular myasthenia gravis: CODE(S): G70.00 - Myasthenia gravis without (acute) exacerbation (19) History of partial thyroidectomy: CODE(S): E89.0 - Postprocedural hypothyroidism (20) History of appendectomy: CODE(S): Z90.49 - Acquired absence of other specified parts of digestive tract (21) History of hysterectomy: CODE(S): Z90.710 - Acquired absence of both cervix and uterus (22) History of cholecystectomy: CODE(S): Z90.49 - Acquired absence of other specified parts of digestive tract (23) Non-smoker: CODE(S): Z78.9 - Other specified health status (24) History of hiatal hernia: CODE(S): Z87.19 - Personal history of other diseases of the digestive system (25) History of revision of total replacement of left knee joint: CODE(S): Z96.652 - Presence of left artificial knee joint (26) History of bilateral cataract extraction: CODE(S): Z98.41 - Cataract extraction status, right eye; Z98.42 - Cataract extraction status, left eye PLAN: Plan This is a 73-year-old female who underwent the fourth revision of a left total knee replacement on June 19, 2024. She developed gangrene, necrosis, and dehiscence at the surgical site. As a result, the patient presented for definitive evaluation and management with respect to her surgical wound. A large amount of necrotic and nonviable tissue has been eliminated from the site of the patient's surgical wound over the last several weeks. We are to continue the use of collagenase Santyl topically, which will be applied by the patient on a daily basis. She and her have been instructed in the appropriate means of application. A renewal of the collagenase Santyl prescription has been issued. A small satellite wound is noted superior to the dehiscent incision, which is to be packed with moistened 1/4 inch Nu-Gauze on a daily basis. The patient has been encouraged to optimize her nutritional intake, as well as her diabetes management. She has been encouraged to continue taking Papa as a nutritional supplement. She is to coordinate with her primary care physician with regard to diabetes management. She is to continue on her course of doxycycline as prescribed by her other physicians. She has been encouraged to elevate her left lower extremity to prevent and minimize swelling. Elevation is to be to heart level, during both daytime and nighttime hours. Avoidance of prolonged idle sitting has been encouraged. Activity as tolerated encouraged, within the boundaries as set by her orthopedic surgeon. Tubigrip's have been dispensed for compression purposes. The patient's recent culture results were negative. The patient is to follow-up in 1 week for reevaluation. She was seen and evaluated by her orthopedic surgeon earlier today, who indicated that her healing dehiscent wound looks pretty good, according to the patient. Incidentally, the patient is scheduled to see a Plastic Surgeon at the [facility] on Sunday, 3 days hence - Dr. Urban Horton. We are to forward copies of the patient's recent medical records to Dr. Horton for his review, anticipating that he may have suggestions as to optimizing the patient's management. At present, we plan to seek preauthorization for implementation of negative pressure wound therapy. If the Wound VAC is approved, it will be implemented at the patient's next visit in 1 week. Total time: 26 minutes
== END 2024-08-23 23:59 | disposition home or self-care (01) ==
LOC: WC 14:15
PROVIDERS: PCP Internal Medicine; Visit Provider Surgery
DX: T81.31XD Disruption of external operation (surgical) wound, not elsewhere classified, subsequent encounter (principal); E11.52 Type 2 diabetes mellitus with diabetic peripheral angiopathy with gangrene; G70.00 Myasthenia gravis without (acute) exacerbation; E11.42 Type 2 diabetes mellitus with diabetic polyneuropathy; R53.81 Other malaise; Z79.84 Long term (current) use of oral hypoglycemic drugs; K21.9 Gastro-esophageal reflux disease without esophagitis; I10 Essential (primary) hypertension; Z90.710 Acquired absence of both cervix and uterus; Z96.653 Presence of artificial knee joint, bilateral; Z86.718 Personal history of other venous thrombosis and embolism; E78.5 Hyperlipidemia, unspecified; M19.90 Unspecified osteoarthritis, unspecified site; E89.0 Postprocedural hypothyroidism; D50.9 Iron deficiency anemia, unspecified; Z98.41 Cataract extraction status, right eye; Z96.652 Presence of left artificial knee joint; Z87.19 Personal history of other diseases of the digestive system; Z90.49 Acquired absence of other specified parts of digestive tract; T84.093D Other mechanical complication of internal left knee prosthesis, subsequent encounter
CPT/HCPCS: 11042; 11045; 87070; 87075; 87205

== ENCOUNTER 2024-09-23 10:15 | Outpatient (RCR) | payer MEDICARE, SELFPAY ==
[2024-08-24 00:30] VITALS: BP 107/87; PULSE 83; RESP 18; TEMP 36.2; BMI 34.1
[2024-08-26 14:30] VITALS: BP 128/47; PULSE 71; RESP 18; TEMP 36.1; BMI 34.1
--- NOTE | 2024-08-27 11:09 | HP.PCM_ITS ---
History of Present Illness Date of Service: 08/26/24 Chief Complaint: Dehiscent, necrotic surgical wound of the left knee History of Wound: This is a 73-year-old female with a history of left total knee replacement many years ago, which has required several revisions. The most recent revision was performed on June 19, 2024, at the [facility]. This was the fourth left knee revision. Prior revisions required flap reconstruction, and the Plastic Surgery service was involved in the patient's most recent surgery. Postoperatively, the patient was placed on oral doxycycline, which is expected to continue for 3 months. The patient's left lower extremity was locked in extension for 2 weeks. She is now weightbearing on the involved limb. She was admitted to the Transitional Care Unit at [facility] for several weeks postoperatively on June 27, 2024. 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 The patient developed a surgical wound dehiscence and marjorie necrosis and gangrene at the site of her incision. A wound VAC was used initially at the surgical site, but the patient had been using Xeroform more recently. The patient suffers from multiple pre-existing medical conditions, listed herein. She does not smoke. She is using Papa as a nutritional supplement. Her BMI is 34.1. [facility] Medical History Gangrene associated with type 2 diabetes mellitus Dehiscence of incision History of revision of total replacement of left knee joint Wears glasses Alcohol use History of steroid therapy Bladder disease Neuropathy Back pain Dietary restriction History of pain when walking Pain Myasthenia gravis Ambulates with cane Rheumatoid arthritis Low iron History of DVT (deep vein thrombosis) Hyperlipemia Difficulty swallowing History of hiatal hernia Gastric reflux Non-smoker Shortness of breath on exertion Chronic cough PONV (postoperative nausea and vomiting) Leg cramps History of edema History of stress test Hypertension Thyroid disease Cataracts, bilateral History of UTI Arthritis Home Medications ?Medication ?Instructions ?Recorded ?Last Taken ?Type folic acid 1 mg tablet 1 mg PO DAILY supplement 10/13/13 06/06/22 History atorvastatin 10 mg tablet 5 mg PO .QOD Cholesterol 09/06/21 06/26/24 18:45 History cholecalciferol (vitamin D3) 50 50 mcg PO DAILY supplement 09/06/21 06/27/24 History mcg (2,000 unit) capsule glimepiride 4 mg tablet 4 mg PO BID blood sugar 09/06/21 06/27/24 History ascorbic acid (vitamin C) 500 mg 500 mg PO DAILY supplement 02/06/22 06/27/24 History tablet (Vitamin C) omeprazole magnesium 20 mg 20 mg PO DAILY GERD 02/06/22 06/06/22 History tablet,delayed release (Prilosec OTC) dapagliflozin propanediol 5 mg 10 mg PO DAILY blood sugar 05/25/22 06/06/22 History tablet (Farxiga) levothyroxine 125 mcg tablet 100 mcg PO DAILY thyroid 05/25/22 06/27/24 History pregabalin 75 mg capsule (Lyrica) 100 mg PO TID pain 05/25/22 06/06/22 History hydrochlorothiazide 12.5 mg tablet 12.5 mg PO DAILY Blood pressure 06/07/22 Unknown History vibegron 75 mg tablet (Gemtesa) 75 mg PO DAILY Overactive bladder 12/04/22 Unknown History apixaban 2.5 mg tablet 2.5 mg PO BID Anticoagulant 06/27/24 06/27/24 08:45 History cyanocobalamin (vitamin B-12) 1,000 mcg PO DAILY Supplement 06/27/24 Unknown History 1,000 mcg capsule metformin 500 mg tablet,extended 1,000 mg PO BID Diabetes 06/27/24 06/27/24 05:30 History release 24 hr methocarbamol 500 mg tablet 500 mg PO TID Muscle spasms 06/27/24 06/27/24 08:45 History polysaccharide iron complex 150 mg 150 mg PO DAILY Supplement 06/27/24 Unknown History iron capsule (Ferrex) acetaminophen 500 mg tablet 1,000 mg (2 x 500 mg) PO Q8 #0 tabs 07/15/24 Unknown Rx arginine 7 gram-glutam 7 1 packet PO BIDCM 30 days #60 ea 07/15/24 Unknown Rx gram-CaHMB 1.5 [id number] oral pwd pkt (Papa (with collagen)) doxycycline monohydrate 100 mg 100 mg PO BID 60 days #120 caps 07/15/24 Unknown Rx capsule losartan 100 mg tablet 100 mg PO DAILY 30 days #30 tabs 07/15/24 Unknown Rx oxycodone 5 mg tablet 5 - 10 mg (1 - 2 x 5 mg) PO Q4H 07/15/24 Unknown Rx PRN PRN Pain Score 4-10 7 days #84 tabs potassium chloride 20 mEq 20 meq PO DAILYCM 30 days #30 tabs 07/15/24 Unknown Rx tablet,extended release(part/cryst) sennosides 8.6 mg-docusate sodium 2 tab PO BID 30 days #120 tabs 07/15/24 Unknown Rx 50 mg tablet (Stimulant Laxative Plus) Allergy/AdvReac Type Severity Reaction Status Date / Time latex Allergy Severe Other Verified 12/05/23 22:32 shellfish derived Allergy Severe PASSED Verified 12/05/23 22:32 OUT, DIARRHEA adhesive Allergy Mild Rash Verified 12/05/23 22:32 levofloxacin AdvReac Intermediate WEAK, Verified 12/05/23 22:32 NAUSEA povidone AdvReac Mild Hives Verified 12/05/23 22:32 Surgical History History of bilateral cataract extraction History of colonoscopy S/P insertion of spinal cord stimulator History of partial thyroidectomy History of appendectomy History of left knee surgery History of hysterectomy History of cholecystectomy Social History household members: spouse Smoking Status: Never smoker Electronic Cigarette Use: not used second hand exposure: No alcohol intake: current alcohol intake frequency: a few times a month Alcohol type: wine substance use type: does not use Vital Signs Vital Signs Vital Signs: 08/26/24 14:30 Temperature 96.9 F L Temperature Source Temporal Pulse Rate 71 Respiratory Rate 18 Blood Pressure 128/47 H Blood Pressure Mean 74 Blood Pressure Source Monitor Blood Pressure Position Semi-Fowlers Blood Pressure Location Left Arm Oxygen Delivery Method Room Air Weight Weight: 180 lb 13.313 oz Body Mass Index (BMI) 34.1 Physical Exam Const alert, oriented x3, no apparent distress, no limitations, healthy appearing and well nourished Constitutional Narrative: The patient's BMI is 34.1. General Appearance: cooperative, comfortable, well kempt and well developed Orientation / Consciousness: awake, oriented to person, oriented to place and oriented to time Exam Limitations: no limitations HEENT normocephalic and head/scalp atraumatic Head and Scalp: normal to inspection, normocephalic and atraumatic Face and Sinus: normal facial exam Nose: external nose normal External Ear: external ears normal Eyes EOMs intact bilaterally General Eye: normal appearance of both eyes Neck full ROM Chest inspection of chest normal Resp normal respiratory effort, normal air movement, no retractions and no use of accessory muscles Effort and Inspection: able to speak in complete sentences Cardio regular rate Extremity no calf tenderness General Extremity: Negative for clubbing or cyanosis Skin Wound Narrative: A dehiscent longitudinal incision is noted overlying the left knee. The dehiscence extends through all layers and into the subcutaneous tissues. There is a small amount of nonviable tissue at the base of the dehiscent incision, which appears to be decreasing with each successive clinic visit. The dry, necrotic eschar, noted at the patient's initial visit, is no longer present. There is no odor or drainage. There is no sign of infection or cellulitis. Dimensions are documented elsewhere. The size of the dehiscent wound appears to be diminishing, visibly and by means of measured dimensions. Centrally, there is a large area of healthy, pink, granulation tissue, which continues to increase. The margins of the wound inferiorly demonstrate epibole, with rounded, non-beveled margins. Approximately 1 cm superior to the large wound at the knee is a very small wound, which appears clean and healthy, demonstrating the presence of active granulation tissue, and continues to diminish in size. Hair: normal Neuro oriented x3, CN's II-XII intact bilaterally, moves all extremities, no focal motor deficits and no sensory deficits noted Sensorium / Orientation: awake, alert, oriented to person, oriented to place and oriented to time Psych Appearance: grossly normal, appropriate and well kempt Attitude: calm Activity / Motor Behavior: appropriate eye contact Speech: normal speech Mood & Affect: euthymic mood Thought Process: normal thought process Thought Content: normal thought content Attention / Concentration: attention grossly intact Debridement Note Debridement Note Wound debrided: Dehiscent left knee incision with bioburden and nonviable tissue Laterality: Left Type of Debridement: Excisional debridement Anesthesia Used: 5% Lidocaine Gel Depth: Down to and including healthy tissue and in the subcutaneous layer Percentage of wound debrided: 100 Instrument Used: 5mm curette Tissue Removed: Bioburden and nonviable tissue Severity: Fat Layer Exposed Amount of bleeding with debridement: Mild Bleeding Controlled with: Compression and gauze Patient tolerated procedure: Patient tolerated procedure well Debridement Free Text: Following the patient's excisional debridement, which was well-tolerated, silver nitrate was utilized topically on the wound margin at the inferior pole of the patient's wound. The silver nitrate was utilized at the wound margin due to epibole, in an effort to improve the margin and optimize the healing potential in this area. 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 ) Arrival Mode Wheelchair Accompanied by Patient Identification Verified (Name & Yes ) Height and Weight Body Mass Index (BMI) 34.1 BMI Classification Obese Vital Signs Temperature (97.8 F-99.1 F) 96.9 F L Temperature Source Temporal Pulse Rate (60-100) 71 Pulse Location Monitor Respiratory Rate (12-18) 18 Respiratory rate source Observation Oxygen Delivery Method Room Air Blood Pressure (90/60-120/80) 128/47 H Blood Pressure Mean 74 Source Monitor Position Semi-Fowlers Blood Pressure Location Left Arm History Since Last Visit- (Skip if this is Patient's initial visit) Have you changed medications since your No last visit? Any new allergies or adverse reactions No Had a fall/change in ADL's that may No increase risk of falls Signs or symptoms of abuse and/or No neglect since last visit Have you been in the hospital since your No last visit? Has dressing in place as prescribed Yes Has compression in place as prescribed Yes Has offloadiing in place as prescribed Yes Experienced any changes in pain level or No management Left Footwear Regular Shoe Right Footwear Regular Shoe Pain Scale: 0-10 Numeric Is Patient Pain Free? Yes GINA - Nurse 1 - General Ulcer Measurement Start: 08/26/24 14:29 Freq: Status: Active Protocol: Activity Type Activity Date Activity User E-sign Co-sign Detail Recorded Client Recorded Date Recorded By Document 08/26/24 14:30 KW [id number] 08/26/24 14:38 KW 08/26/24 14:30 Wound Center Nurse 1 #1,.L knee -Current Size (cm) - Length 12 -Current Size (cm) - Width 2.6 -Current Size (cm) - Depth 0.7 -Total Square Cm 31.2 -Exudate Amt Small -Exudate Type Serosanguineous -Wound Margin Distinct, Outline Attached -Granulation Amt Large (67-100%) -Granulation Quality [place],Red -Necrosis Amt Medium (34-66%) -Necrotic Tissue Type Adherent Slough -Texture (Anali-wound Skin Appearance) Assessed -Moisture (Anali-wound Skin Appearance) Assessed -Color (Anali-wound Skin Appearance) Assessed -Temperature (Anali-wound Skin No Abnormality Appearance) (Pt Warm) -Tenderness on Palpation (Anali-wound No Skin Appearance) -Ulcer Cleansing Soap and Water -Foul Odor after Cleansing No -Anesthetic Used 4% Lidocaine Solution WC - Nurse 2 - General Ulcer CM Notes Start: 08/26/24 14:29 Freq: Status: Active Protocol: Activity Type Activity Date Activity User E-sign Co-sign Detail Recorded Client Recorded Date Recorded By Document 08/26/24 14:52 DS [id number] 08/26/24 14:59 DS 08/26/24 14:52 Wound Center Nurse 2 -Time 14:47 -Correct Patient Yes -Correct Side, Site, Position Yes -Correct Procedure Yes -Procedure Performed Yes -Type of Procedure Debridement -Clinical Debridement Subcutaneous -Tissue Removed Subcutaneous -Post Debridement (cm) - Length 13.0 -Post Debridement (cm) - Width 2.5 -Post Debridement (cm) - Depth 1.0 -Total Square (Post) (cm) 32.50 -Area of Debridement (cm) - Length 13.0 -Area of Debridement (cm) - Width 2.5 -Total Square (Area) (cm) 32.50 -Tunneling No -Undermining/Tunneling Yes -Undermining/Tunneling Starts (O'clock 12 ) -Undermining/Tunneling Ends (O'clock) 6 -Maximum Distance (cm) 0.3 -Circular Undermining No -Wound/Ulcer Outcome Not Healed -Ulcer Cleansing Rinsed/ Irrigated with Saline -Bioengineered Tissue No -Debridement - Subq, 1st 20sq cm Yes -Debridement, SubQ, ea addt'l 20sq cm 1 or part thereof Pain Scale: 0-10 Numeric Is Patient Pain Free? Yes WC - Nurse 3 - General Ulcer D/C NN Start: 08/26/24 14:29 Freq: Status: Active Protocol: Activity Type Activity Date Activity User E-sign Co-sign Detail Recorded Client Recorded Date Recorded By Document 08/26/24 15:59 KW [id number] 08/26/24 15:59 08/26/24 15:59 Wound Care Center Nurse 3 #1,.L knee -Other Dressing / iodoform from pt with santyl to large incision -Primary Dressing Covered/Secured with Dry Gauze & Roll Gauze, Secured with Tape Left -Compression Wrap Randy Wrap Pain Scale: 0-10 Numeric Is Patient Pain Free? Yes Charges/Coding Multi Select Codes Integumentary Integumentary CPT Codes: 91875 [place] subq tissue 20 sq cm/< (81236 x 1; 22549 x 1) Assessment/Plan Assessment/Plan (1) Dehiscence of incision: CODE(S): T81.31XA - Disruption of external operation (surgical) wound, not elsewhere classified, initial encounter QUALIFIERS: Encounter type: subsequent encounter Qualified Code(s): T81.31XD - Disruption of external operation (surgical) wound, not elsewhere classified, subsequent encounter (2) Gangrene associated with type 2 diabetes mellitus: CODE(S): E11.52 - Type 2 diabetes mellitus with diabetic peripheral angiopathy with gangrene (3) Status post revision of total replacement of left knee: CODE(S): Z96.652 - Presence of left artificial knee joint (4) Failed total left knee replacement: CODE(S): T84.093A - Other mechanical complication of internal left knee prosthesis, initial encounter QUALIFIERS: Encounter type: subsequent encounter Qualified Code(s): T84.093D - Other mechanical complication of internal left knee prosthesis, subsequent encounter (5) History of left knee surgery: CODE(S): Z98.890 - Other specified postprocedural states (6) Diabetes: CODE(S): E11.9 - Type 2 diabetes mellitus without complications QUALIFIERS: Diabetes mellitus type: type 2 (7) Diabetic polyneuropathy: CODE(S): E11.42 - Type 2 diabetes mellitus with diabetic polyneuropathy (8) GERD (gastroesophageal reflux disease): CODE(S): K21.9 - Gastro-esophageal reflux disease without esophagitis (9) Hyperlipemia: CODE(S): E78.5 - Hyperlipidemia, unspecified (10) Iron deficiency anemia: CODE(S): D50.9 - Iron deficiency anemia, unspecified (11) Essential (primary) hypertension: CODE(S): I10 - Essential (primary) hypertension (12) Debility: CODE(S): R53.81 - Other malaise (13) Status post total right knee replacement: CODE(S): Z96.651 - Presence of right artificial knee joint (14) Osteoarthritis: (15) History of DVT (deep vein thrombosis): CODE(S): Z86.718 - Personal history of other venous thrombosis and embolism (16) Dyslipidemia: CODE(S): E78.5 - Hyperlipidemia, unspecified (17) Hypothyroidism: CODE(S): E03.9 - Hypothyroidism, unspecified (18) Ocular myasthenia gravis: CODE(S): G70.00 - Myasthenia gravis without (acute) exacerbation (19) History of partial thyroidectomy: CODE(S): E89.0 - Postprocedural hypothyroidism (20) History of appendectomy: CODE(S): Z90.49 - Acquired absence of other specified parts of digestive tract (21) History of hysterectomy: CODE(S): Z90.710 - Acquired absence of both cervix and uterus (22) History of cholecystectomy: CODE(S): Z90.49 - Acquired absence of other specified parts of digestive tract (23) Non-smoker: CODE(S): Z78.9 - Other specified health status (24) History of hiatal hernia: CODE(S): Z87.19 - Personal history of other diseases of the digestive system (25) History of revision of total replacement of left knee joint: CODE(S): Z96.652 - Presence of left artificial knee joint (26) History of bilateral cataract extraction: CODE(S): Z98.41 - Cataract extraction status, right eye; Z98.42 - Cataract extraction status, left eye PLAN: Plan This is a 73-year-old female who underwent the fourth revision of a left total knee replacement on June 19, 2024. She developed gangrene, necrosis, and dehiscence at the surgical site. As a result, the patient presented for definitive evaluation and management with respect to her surgical wound. A large amount of necrotic and nonviable tissue has been eliminated from the site of the patient's surgical wound over the last several weeks. We are to continue the use of collagenase Santyl topically, which will be applied by the patient on a daily basis. She and her have been instructed in the appropriate means of application. A renewal of the collagenase Santyl prescription has been issued. A small satellite wound is noted superior to the dehiscent incision, which is to be packed with moistened 1/4 inch Nu-Gauze on a daily basis. The patient has been encouraged to optimize her nutritional intake, as well as her diabetes management. She has been encouraged to continue taking Papa as a nutritional supplement. She is to coordinate with her primary care physician with regard to diabetes management. She is to continue on her course of doxycycline as prescribed by her other physicians. She has been encouraged to elevate her left lower extremity to prevent and minimize swelling. Elevation is to be to heart level, during both daytime and nighttime hours. Avoidance of prolonged idle sitting has been encouraged. Activity as tolerated encouraged, within the boundaries as set by her orthopedic surgeon. Tubigrip's have been dispensed for compression purposes. The patient's recent culture results were negative. The patient is to follow-up in 1 week for reevaluation. She was seen and evaluated by her orthopedic surgeon recently, who indicated that her healing dehiscent wound looks pretty good, according to the patient's account. The patient was evaluated by her Plastic Surgeon, Dr. Urban Horton, on August 22, 2024. According the patient, he was pleased with her progress, and agrees with the plan to proceed with the Wound VAC once available. We await receipt of the Wound VAC, which will be implemented once received. We have also requested records from the patient's recent visit with Dr. Horton. The patient is to follow-up in 1 week. Total time: 25 minutes
[2024-08-27 15:28] VITALS: BP 110/75; PULSE 64; RESP 18; TEMP 35.8; BMI 34.1
[2024-08-29 08:41] VITALS: BP 101/82; PULSE 72; RESP 18; TEMP 35.7; BMI 34.1
--- NOTE | 2024-08-29 12:34 | WC ---
PHOTO LEFT KNEE
[2024-09-02 13:45] VITALS: BP 128/49; PULSE 62; RESP 18; TEMP 36.8; BMI 34.1
--- NOTE | 2024-09-03 12:06 | WC ---
PHOTO 09/02/24 LEFT KNEE CLUSTER
--- NOTE | 2024-09-03 14:22 | HP.PCM_ITS ---
History of Present Illness Date of Service: 09/02/24 Chief Complaint: Dehiscent, necrotic surgical wound of the left knee History of Wound: This is a 73-year-old female with a history of left total knee replacement many years ago, which has required several revisions. The most recent revision was performed on June 19, 2024, at the [facility]. This was the fourth left knee revision. Prior revisions required flap reconstruction, and the Plastic Surgery service was involved in the patient's most recent surgery. Postoperatively, the patient was placed on oral doxycycline, which is expected to continue for 3 months. The patient's left lower extremity was locked in extension for 2 weeks. She is now weightbearing on the involved limb. She was admitted to the Transitional Care Unit at [facility] for several weeks postoperatively on June 27, 2024. She has now returned to home, with orthopaedic physician assistant care from her . The patient developed a surgical wound dehiscence and marjorie necrosis and gangrene at the site of her incision. A wound VAC was used initially at the surgical site, but the patient had been using Xeroform more recently. The patient suffers from multiple pre-existing medical conditions, listed herein. She does not smoke. She is using Papa as a nutritional supplement. Her BMI is 34.1. [facility] Medical History Gangrene associated with type 2 diabetes mellitus Dehiscence of incision History of revision of total replacement of left knee joint Wears glasses Alcohol use History of steroid therapy Bladder disease Neuropathy Back pain Dietary restriction History of pain when walking Pain Myasthenia gravis Ambulates with cane Rheumatoid arthritis Low iron History of DVT (deep vein thrombosis) Hyperlipemia Difficulty swallowing History of hiatal hernia Gastric reflux Non-smoker Shortness of breath on exertion Chronic cough PONV (postoperative nausea and vomiting) Leg cramps History of edema History of stress test Hypertension Thyroid disease Cataracts, bilateral History of UTI Arthritis Home Medications ?Medication ?Instructions ?Recorded ?Last Taken ?Type folic acid 1 mg tablet 1 mg PO DAILY supplement 10/13/13 06/06/22 History atorvastatin 10 mg tablet 5 mg PO .QOD Cholesterol 09/06/21 06/26/24 18:45 History cholecalciferol (vitamin D3) 50 50 mcg PO DAILY supplement 09/06/21 06/27/24 History mcg (2,000 unit) capsule glimepiride 4 mg tablet 4 mg PO BID blood sugar 09/06/21 06/27/24 History ascorbic acid (vitamin C) 500 mg 500 mg PO DAILY supplement 02/06/22 06/27/24 History tablet (Vitamin C) omeprazole magnesium 20 mg 20 mg PO DAILY GERD 02/06/22 06/06/22 History tablet,delayed release (Prilosec OTC) dapagliflozin propanediol 5 mg 10 mg PO DAILY blood sugar 05/25/22 06/06/22 History tablet (Farxiga) levothyroxine 125 mcg tablet 100 mcg PO DAILY thyroid 05/25/22 06/27/24 History pregabalin 75 mg capsule (Lyrica) 100 mg PO TID pain 05/25/22 06/06/22 History hydrochlorothiazide 12.5 mg tablet 12.5 mg PO DAILY Blood pressure 06/07/22 Unknown History vibegron 75 mg tablet (Gemtesa) 75 mg PO DAILY Overactive bladder 12/04/22 Unknown History apixaban 2.5 mg tablet 2.5 mg PO BID Anticoagulant 06/27/24 06/27/24 08:45 History cyanocobalamin (vitamin B-12) 1,000 mcg PO DAILY Supplement 06/27/24 Unknown History 1,000 mcg capsule metformin 500 mg tablet,extended 1,000 mg PO BID Diabetes 06/27/24 06/27/24 05:30 History release 24 hr methocarbamol 500 mg tablet 500 mg PO TID Muscle spasms 06/27/24 06/27/24 08:45 History polysaccharide iron complex 150 mg 150 mg PO DAILY Supplement 06/27/24 Unknown History iron capsule (Ferrex) acetaminophen 500 mg tablet 1,000 mg (2 x 500 mg) PO Q8 #0 tabs 07/15/24 Unknown Rx arginine 7 gram-glutam 7 1 packet PO BIDCM 30 days #60 ea 07/15/24 Unknown Rx gram-CaHMB 1.5 [id number]-min oral pwd pkt (Papa (with collagen)) doxycycline monohydrate 100 mg 100 mg PO BID 60 days #120 caps 07/15/24 Unknown Rx capsule losartan 100 mg tablet 100 mg PO DAILY 30 days #30 tabs 07/15/24 Unknown Rx oxycodone 5 mg tablet 5 - 10 mg (1 - 2 x 5 mg) PO Q4H 07/15/24 Unknown Rx PRN PRN Pain Score 4-10 7 days #84 tabs potassium chloride 20 mEq 20 meq PO DAILYCM 30 days #30 tabs 07/15/24 Unknown Rx tablet,extended release(part/cryst) sennosides 8.6 mg-docusate sodium 2 tab PO BID 30 days #120 tabs 07/15/24 Unknown Rx 50 mg tablet (Stimulant Laxative Plus) Allergy/AdvReac Type Severity Reaction Status Date / Time latex Allergy Severe Other Verified 12/05/23 22:32 shellfish derived Allergy Severe PASSED Verified 12/05/23 22:32 OUT, DIARRHEA adhesive Allergy Mild Rash Verified 12/05/23 22:32 levofloxacin AdvReac Intermediate WEAK, Verified 12/05/23 22:32 NAUSEA povidone AdvReac Mild Hives Verified 12/05/23 22:32 Surgical History History of bilateral cataract extraction History of colonoscopy S/P insertion of spinal cord stimulator History of partial thyroidectomy History of appendectomy History of left knee surgery History of hysterectomy History of cholecystectomy Social History household members: spouse Smoking Status: Never smoker Electronic Cigarette Use: not used second hand exposure: No alcohol intake: current alcohol intake frequency: a few times a month Alcohol type: wine substance use type: does not use Vital Signs Vital Signs Vital Signs: Weight Weight: 180 lb 13.313 oz Body Mass Index (BMI) 34.1 Physical Exam Const alert, oriented x3, no apparent distress, no limitations, healthy appearing and well nourished Constitutional Narrative: The patient's BMI is 34.1. General Appearance: cooperative, comfortable, well kempt and well developed Orientation / Consciousness: awake, oriented to person, oriented to place and oriented to time Exam Limitations: no limitations HEENT normocephalic and head/scalp atraumatic Head and Scalp: normal to inspection, normocephalic and atraumatic Face and Sinus: normal facial exam Nose: external nose normal External Ear: external ears normal Eyes EOMs intact bilaterally General Eye: normal appearance of both eyes Neck full ROM Chest inspection of chest normal Resp normal respiratory effort, normal air movement, no retractions and no use of accessory muscles Effort and Inspection: able to speak in complete sentences Cardio regular rate Extremity no calf tenderness General Extremity: Negative for clubbing or cyanosis Skin Wound Narrative: A dehiscent longitudinal incision is noted overlying the left knee. The dehiscence extends through all layers and into the subcutaneous tissues. There is a small amount of nonviable, necrotic tissue at the base of the dehiscent incision, which continues to decrease with each successive clinic visit. The dry, necrotic eschar, noted at the patient's initial visit, is no longer present. There is no odor or drainage. There is no sign of infection or cellulitis. Dimensions are documented elsewhere. The size of the dehiscent wound appears to be diminishing, visibly and by means of measured dimensions. Centrally, there is a large area of healthy, pink, granulation tissue, which continues to increase. The margins of the wound are becoming more beveled and amenable to healing. Approximately 1 cm superior to the large wound at the knee is a very small wound, which appears clean and healthy, demonstrating the presence of active granulation tissue, and continues to diminish in size and depth. Hair: normal Neuro oriented x3, CN's II-XII intact bilaterally, moves all extremities, no focal motor deficits and no sensory deficits noted Sensorium / Orientation: awake, alert, oriented to person, oriented to place and oriented to time Psych Appearance: grossly normal, appropriate and well kempt Attitude: calm Activity / Motor Behavior: appropriate eye contact Speech: normal speech Mood & Affect: euthymic mood Thought Process: normal thought process Thought Content: normal thought content Attention / Concentration: attention grossly intact Debridement Note Debridement Note Wound debrided: Dehiscent left knee incision with bioburden and nonviable tissue Laterality: Left Type of Debridement: Excisional debridement Anesthesia Used: 5% Lidocaine Gel Depth: Down to and including healthy tissue and in the subcutaneous layer Percentage of wound debrided: 100 Instrument Used: 5mm curette, Forceps and - (Scissors) Tissue Removed: Bioburden and nonviable, necrotic tissue Severity: Fat Layer Exposed Amount of bleeding with debridement: Mild Bleeding Controlled with: Compression and gauze Patient tolerated procedure: Patient tolerated procedure well Debridement Free Text: Today's excisional debridement entailed the use of a sterile forceps and scissors to excise a small amount of frankly necrotic and nonviable tissue at the base of the dehiscent incision, near the inferior pole. Minimal bleeding occurred, and was well-controlled with manual pressure. Post-Debridement Measurements and Additional Note: Post-Debridement Measurements/Treatment WC - Nurse 1 - General Ulcer Assessment Start: 08/26/24 14:29 Freq: Status: Active Protocol: GINA.LOWEXT Activity Type Activity Date Activity User E-sign Co-sign Detail Recorded Client Recorded Date Recorded By Document 08/26/24 14:30 KW [id number] 08/26/24 14:38 KW Document 08/27/24 15:28 KW [id number] 08/27/24 15:40 KW Document 08/29/24 08:41 KW [id number] 08/29/24 08:49 KW Document 09/02/24 13:45 KW [id number] 09/02/24 14:01 KW 08/26/24 08/27/24 08/29/24 14:30 15:28 08:41 - Today's Visit Information Type of service Follow-up Visit Nurse-only Nurse-only (Physician/OYSTER GROWER Visit Visit ) Arrival Mode Wheelchair Wheelchair Wheelchair Accompanied by Patient Identification Verified (Name & Yes Yes Yes ) Height and Weight Body Mass Index (BMI) 34.1 34.1 34.1 BMI Classification Obese Obese Obese Vital Signs Temperature (97.8 F-99.1 F) 96.9 F L 96.5 F L 96.2 F L Temperature Source Temporal Temporal Temporal Pulse Rate (60-100) 71 64 72 Pulse Location Monitor Monitor Monitor Respiratory Rate (12-18) 18 18 18 Respiratory rate source Observation Observation Observation Oxygen Delivery Method Room Air Room Air Room Air Blood Pressure (90/60-120/80) 128/47 H 110/75 101/82 H Blood Pressure Mean 74 86 88 Source Monitor Monitor Monitor Position Semi-Fowlers Sitting Sitting Blood Pressure Location Left Arm Right Arm Left Arm History Since Last Visit- (Skip if this is Patient's initial visit) Have you changed medications since your No No No last visit? Any new allergies or adverse reactions No No No Had a fall/change in ADL's that may No No No increase risk of falls Signs or symptoms of abuse and/or No No No neglect since last visit Have you been in the hospital since your No No No last visit? Has dressing in place as prescribed Yes Yes Yes Has compression in place as prescribed Yes Yes Yes Has offloadiing in place as prescribed Yes Yes Yes Experienced any changes in pain level or No No No management Left Footwear Regular Shoe Regular Shoe Regular Shoe Right Footwear Regular Shoe Regular Shoe Regular Shoe Pain Scale: 0-10 Numeric Is Patient Pain Free? Yes Yes Yes 09/02/24 13:45 WC - Today's Visit Information Type of service Follow-up Visit (Physician/OYSTER GROWER ) Arrival Mode Ambulatory, Walker Accompanied by Patient Identification Verified (Name & Yes ) Height and Weight Body Mass Index (BMI) 34.1 BMI Classification Obese Vital Signs Temperature (97.8 F-99.1 F) 98.2 F Temperature Source Temporal Pulse Rate (60-100) 62 Pulse Location Monitor Respiratory Rate (12-18) 18 Respiratory rate source Observation Oxygen Delivery Method Room Air Blood Pressure (90/60-120/80) 128/49 H Blood Pressure Mean 75 Source Monitor Position Semi-Fowlers Blood Pressure Location Right Arm History Since Last Visit- (Skip if this is Patient's initial visit) Have you changed medications since your No last visit? Any new allergies or adverse reactions No Had a fall/change in ADL's that may No increase risk of falls Signs or symptoms of abuse and/or No neglect since last visit Have you been in the hospital since your No last visit? Has dressing in place as prescribed Yes Has compression in place as prescribed Yes Has offloadiing in place as prescribed N/A Experienced any changes in pain level or No management Left Footwear Regular Shoe Right Footwear Regular Shoe Pain Scale: 0-10 Numeric Is Patient Pain Free? Yes - Nurse 1 - General Ulcer Measurement Start: 08/26/24 14:29 Freq: Status: Active Protocol: Activity Type Activity Date Activity User E-sign Co-sign Detail Recorded Client Recorded Date Recorded By Document 08/26/24 14:30 KW [id number] 08/26/24 14:38 KW Document 09/02/24 13:45 KW [id number] 09/02/24 14:01 KW 08/26/24 09/02/24 14:30 13:45 Wound Center Nurse 1 #1,.L knee -Current Size (cm) - Length 12 11 -Current Size (cm) - Width 2.6 2.2 -Current Size (cm) - Depth 0.7 0.3 -Total Square Cm 31.2 24.2 -Date of Last Picture (Recall this 09/02/24 field) -Epithelialization Medium 34-66% -Exudate Amt Small Medium -Exudate Type Serosanguineous Serosanguineous -Wound Margin Distinct, Distinct, Outline Outline Attached Attached -Granulation Amt Large (67-100%) Medium (34-66%) -Granulation Quality [place],Red Red -Necrosis Amt Medium (34-66%) Medium (34-66%) -Necrotic Tissue Type Adherent Slough Adherent Slough -Texture (Anali-wound Skin Appearance) Assessed Assessed -Moisture (Anali-wound Skin Appearance) Assessed Assessed -Color (Anali-wound Skin Appearance) Assessed Assessed -Temperature (Anali-wound Skin No Abnormality No Abnormality Appearance) (Pt Warm) (Pt Warm) -Tenderness on Palpation (Anali-wound No Skin Appearance) -Ulcer Cleansing Soap and Water Soap and Water -Foul Odor after Cleansing No No -Anesthetic Used 4% Lidocaine 4% Lidocaine Solution Solution WC - Nurse 2 - General Ulcer CM Notes Start: 08/26/24 14:29 Freq: Status: Active Protocol: Activity Type Activity Date Activity User E-sign Co-sign Detail Recorded Client Recorded Date Recorded By Document 08/26/24 14:52 DS [id number] 08/26/24 14:59 DS Document 09/02/24 14:31 DS [id number] 09/02/24 14:38 DS 08/26/24 09/02/24 14:52 14:31 Wound Center Nurse 2 #1,.L knee -Time 14:47 14:30 -Correct Patient Yes Yes -Correct Side, Site, Position Yes Yes -Correct Procedure Yes Yes -Procedure Performed Yes Yes -Type of Procedure Debridement Debridement -Clinical Debridement Subcutaneous Subcutaneous -Tissue Removed Subcutaneous Subcutaneous -Post Debridement (cm) - Length 13.0 11.8 -Post Debridement (cm) - Width 2.5 2.5 -Post Debridement (cm) - Depth 1.0 0.8 -Total Square (Post) (cm) 32.50 29.50 -Area of Debridement (cm) - Length 13.0 11.8 -Area of Debridement (cm) - Width 2.5 2.5 -Total Square (Area) (cm) 32.50 29.50 -Tunneling No No -Undermining/Tunneling Yes No -Undermining/Tunneling Starts (O'clock 12 ) -Undermining/Tunneling Ends (O'clock) 6 -Maximum Distance (cm) 0.3 -Circular Undermining No No -Wound/Ulcer Outcome Not Healed Not Healed -Ulcer Cleansing Rinsed/ Rinsed/ Irrigated with Irrigated with Saline Saline -Bioengineered Tissue No No -Bleeding Controlled with Pressure -Treatment Response Procedure Tolerated Well -Debridement - Subq, 1st 20sq cm Yes Yes -Debridement, SubQ, ea addt'l 20sq cm 1 1 or part thereof Pain Scale: 0-10 Numeric Is Patient Pain Free? Yes Yes WC - Nurse 3 - General Ulcer D/C NN Start: 08/26/24 14:29 Freq: Status: Active Protocol: Activity Type Activity Date Activity User E-sign Co-sign Detail Recorded Client Recorded Date Recorded By Document 08/26/24 15:59 KW [id number] 08/26/24 15:59 KW Document 08/27/24 15:28 KW [id number] 08/27/24 15:40 KW Document 08/29/24 08:41 KW [id number] 08/29/24 08:49 KW Document 09/02/24 14:44 KW [id number] 09/02/24 14:45 KW 08/26/24 08/27/24 08/29/24 15:59 15:28 08:41 Wound Care Center Nurse 3 #1,.L knee -Ulcer Cleansing Soap and Water Soap and Water -Foul Odor after Cleansing No No -Negative Pressure Wound Therapy Start Continue -Setting (mmHg) 125 125 -Negative Pressure is Continuous Continuous -Other Dressing 1/4 iodoform from pt with santyl to large incision -Primary Dressing Covered/Secured with Dry Gauze & Roll Gauze, Secured with Tape -NPWT Application Charge NPWT > 50 sq cm NPWT > 50 sq cm ($) ($) Left -Compression Wrap Randy Wrap Randy Wrap Randy Wrap Vital Signs Temperature (97.8 F-99.1 F) 96.5 F L 96.2 F L Temperature Source Temporal Temporal Pulse Rate (60-100) 64 72 Pulse Location Monitor Monitor Respiratory Rate (12-18) 18 18 Respiratory rate source Observation Observation Oxygen Delivery Method Room Air Room Air Blood Pressure (90/60-120/80) 110/75 101/82 H Blood Pressure Mean 86 88 Source Monitor Monitor Position Sitting Sitting Blood Pressure Location Right Arm Left Arm Pain Scale: 0-10 Numeric Is Patient Pain Free? Yes Yes Yes WC - Visit Discharge Discharge Condition Stable Stable Ambulatory Status Wheelchair Transportation Private Auto Private Auto Medication Reconcilliation completed & No No provided to patient/care provider Clinical Summary of Care Provided Yes Yes 09/02/24 14:44 Wound Care Center Nurse 3 #1,.L knee -Ulcer Cleansing -Foul Odor after Cleansing -Negative Pressure Wound Therapy Continue -Setting (mmHg) 125 -Negative Pressure is Continuous -Other Dressing -Primary Dressing Covered/Secured with -NPWT Application Charge NPWT & Debridement (nc ) Left -Compression Wrap Randy Wrap Vital Signs Temperature (97.8 F-99.1 F) Temperature Source Pulse Rate (60-100) Pulse Location Respiratory Rate (12-18) Respiratory rate source Oxygen Delivery Method Blood Pressure (90/60-120/80) Blood Pressure Mean Source Position Blood Pressure Location Pain Scale: 0-10 Numeric Is Patient Pain Free? Yes WC - Visit Discharge Discharge Condition Stable Ambulatory Status Ambulatory, Walker Transportation Private Auto Medication Reconcilliation completed & No provided to patient/care provider Clinical Summary of Care Provided Yes Charges/Coding Procedures Integumentary [id number]: [id number] [place] subq tissue 20 sq cm/< (45118 x 1) Add On Codes: 26611 [place] subq tissue add-on (22672 x 1) Assessment/Plan Assessment/Plan (1) Dehiscence of incision: CODE(S): T81.31XA - Disruption of external operation (surgical) wound, not elsewhere classified, initial encounter QUALIFIERS: Encounter type: subsequent encounter Qualified Code(s): T81.31XD - Disruption of external operation (surgical) wound, not elsewhere classified, subsequent encounter (2) Gangrene associated with type 2 diabetes mellitus: CODE(S): E11.52 - Type 2 diabetes mellitus with diabetic peripheral angiopathy with gangrene (3) Status post revision of total replacement of left knee: CODE(S): Z96.652 - Presence of left artificial knee joint (4) Failed total left knee replacement: CODE(S): T84.093A - Other mechanical complication of internal left knee prosthesis, initial encounter QUALIFIERS: Encounter type: subsequent encounter Qualified Code(s): T84.093D - Other mechanical complication of internal left knee prosthesis, subsequent encounter (5) History of left knee surgery: CODE(S): Z98.890 - Other specified postprocedural states (6) Diabetes: CODE(S): E11.9 - Type 2 diabetes mellitus without complications QUALIFIERS: Diabetes mellitus type: type 2 (7) Diabetic polyneuropathy: CODE(S): E11.42 - Type 2 diabetes mellitus with diabetic polyneuropathy (8) GERD (gastroesophageal reflux disease): CODE(S): K21.9 - Gastro-esophageal reflux disease without esophagitis (9) Hyperlipemia: CODE(S): E78.5 - Hyperlipidemia, unspecified (10) Iron deficiency anemia: CODE(S): D50.9 - Iron deficiency anemia, unspecified (11) Essential (primary) hypertension: CODE(S): I10 - Essential (primary) hypertension (12) Debility: CODE(S): R53.81 - Other malaise (13) Status post total right knee replacement: CODE(S): Z96.651 - Presence of right artificial knee joint (14) Osteoarthritis: (15) History of DVT (deep vein thrombosis): CODE(S): Z86.718 - Personal history of other venous thrombosis and embolism (16) Dyslipidemia: CODE(S): E78.5 - Hyperlipidemia, unspecified (17) Hypothyroidism: CODE(S): E03.9 - Hypothyroidism, unspecified (18) Ocular myasthenia gravis: CODE(S): G70.00 - Myasthenia gravis without (acute) exacerbation (19) History of partial thyroidectomy: CODE(S): E89.0 - Postprocedural hypothyroidism (20) History of appendectomy: CODE(S): Z90.49 - Acquired absence of other specified parts of digestive tract (21) History of hysterectomy: CODE(S): Z90.710 - Acquired absence of both cervix and uterus (22) History of cholecystectomy: CODE(S): Z90.49 - Acquired absence of other specified parts of digestive tract (23) Non-smoker: CODE(S): Z78.9 - Other specified health status (24) History of hiatal hernia: CODE(S): Z87.19 - Personal history of other diseases of the digestive system (25) History of revision of total replacement of left knee joint: CODE(S): Z96.652 - Presence of left artificial knee joint (26) History of bilateral cataract extraction: CODE(S): Z98.41 - Cataract extraction status, right eye; Z98.42 - Cataract extraction status, left eye PLAN: Plan This is a 73-year-old female who underwent the fourth revision of a left total knee replacement on June 19, 2024. She developed gangrene, necrosis, and dehiscence at the surgical site. As a result, the patient presented for definitive evaluation and management with respect to her surgical wound. A large amount of necrotic and nonviable tissue has been eliminated from the site of the patient's surgical wound over the last several weeks. As of approximately 6 days ago, negative pressure wound therapy was initiated by means of the Wound VAC. The patient appears to be tolerating negative pressure wound therapy without difficulty, which appears to be having a positive effect on the patient's wound healing. There are increasing areas of healthy, pink granulation tissue. The wound appears to be decreasing in size. The wound VAC will be applied twice weekly, at a setting of 125 mmHg continuous negative pressure. Both the primary dehiscence and a small satellite wound are to be managed by means of negative pressure wound therapy. The patient has been encouraged to optimize her nutritional intake, as well as her diabetes management. She has been encouraged to continue taking Papa as a nutritional supplement. She is to coordinate with her primary care physician with regard to diabetes management. She is to continue on her course of doxycycline as prescribed by her other physicians. She has been encouraged to elevate her left lower extremity to prevent and minimize swelling. Elevation is to be to heart level, during both daytime and nighttime hours. Avoidance of prolonged idle sitting has been encouraged. Activity as tolerated encouraged, within the boundaries as set by her orthopedic surgeon. Tubigrip's have been dispensed for compression purposes. The patient is to follow-up in 1 week for reevaluation. She was seen and evaluated by her orthopedic surgeon recently, who indicated that her healing dehiscent wound looks pretty good, according to the patient's account. The patient was evaluated by her Plastic Surgeon, Dr. Urban Horton, on August 22, 2024. Dr. Horton's clinical note from that visit has been received and reviewed, and it appears as though he is in concurrence with the use of negative pressure wound therapy. The patient is to follow-up in 1 week. Total time: 24 minutes
[2024-09-05 11:58] VITALS: BP 137/50; PULSE 74; RESP 18; TEMP 36.3; BMI 34.1
[2024-09-09 14:10] VITALS: BP 142/76; PULSE 61; RESP 18; TEMP 36.1; BMI 34.1
--- NOTE | 2024-09-10 18:39 | PCM.WC.HP ---
History of Present Illness Date of Service: 09/09/24 Chief Complaint: Dehiscent, necrotic surgical wound of the left knee History of Wound: This is a 73-year-old female with a history of left total knee replacement many years ago, which has required several revisions. The most recent revision was performed on June 19, 2024, at the [facility]. This was the fourth left knee revision. Prior revisions required flap reconstruction, and the Plastic Surgery service was involved in the patient's most recent surgery. Postoperatively, the patient was placed on oral doxycycline, which is expected to continue for 3 months. The patient's left lower extremity was locked in extension for 2 weeks. She is now weightbearing on the involved limb. She was admitted to the Transitional Care Unit at [facility] for several weeks postoperatively on June 27, 2024. She has now returned to home, with assistant financial accountant care from her . The patient developed a surgical wound dehiscence and marjorie necrosis and gangrene at the site of her incision. A wound VAC was used initially at the surgical site, but the patient had been using Xeroform more recently. The patient suffers from multiple pre-existing medical conditions, listed herein. She does not smoke. She is using Papa as a nutritional supplement. Her BMI is 34.1. [facility] Medical History Gangrene associated with type 2 diabetes mellitus Dehiscence of incision History of revision of total replacement of left knee joint Wears glasses Alcohol use History of steroid therapy Bladder disease Neuropathy Back pain Dietary restriction History of pain when walking Pain Myasthenia gravis Ambulates with cane Rheumatoid arthritis Low iron History of DVT (deep vein thrombosis) Hyperlipemia Difficulty swallowing History of hiatal hernia Gastric reflux Non-smoker Shortness of breath on exertion Chronic cough PONV (postoperative nausea and vomiting) Leg cramps History of edema History of stress test Hypertension Thyroid disease Cataracts, bilateral History of UTI Arthritis Home Medications ?Medication ?Instructions ?Recorded ?Last Taken ?Type folic acid 1 mg tablet 1 mg PO DAILY supplement 10/13/13 06/06/22 History atorvastatin 10 mg tablet 5 mg PO .QOD Cholesterol 09/06/21 06/26/24 18:45 History cholecalciferol (vitamin D3) 50 50 mcg PO DAILY supplement 09/06/21 06/27/24 History mcg (2,000 unit) capsule glimepiride 4 mg tablet 4 mg PO BID blood sugar 09/06/21 06/27/24 History ascorbic acid (vitamin C) 500 mg 500 mg PO DAILY supplement 02/06/22 06/27/24 History tablet (Vitamin C) omeprazole magnesium 20 mg 20 mg PO DAILY GERD 02/06/22 06/06/22 History tablet,delayed release (Prilosec OTC) dapagliflozin propanediol 5 mg 10 mg PO DAILY blood sugar 05/25/22 06/06/22 History tablet (Farxiga) levothyroxine 125 mcg tablet 100 mcg PO DAILY thyroid 05/25/22 06/27/24 History pregabalin 75 mg capsule (Lyrica) 100 mg PO TID pain 05/25/22 06/06/22 History hydrochlorothiazide 12.5 mg tablet 12.5 mg PO DAILY Blood pressure 06/07/22 Unknown History vibegron 75 mg tablet (Gemtesa) 75 mg PO DAILY Overactive bladder 12/04/22 Unknown History apixaban 2.5 mg tablet 2.5 mg PO BID Anticoagulant 06/27/24 06/27/24 08:45 History cyanocobalamin (vitamin B-12) 1,000 mcg PO DAILY Supplement 06/27/24 Unknown History 1,000 mcg capsule metformin 500 mg tablet,extended 1,000 mg PO BID Diabetes 06/27/24 06/27/24 05:30 History release 24 hr methocarbamol 500 mg tablet 500 mg PO TID Muscle spasms 06/27/24 06/27/24 08:45 History polysaccharide iron complex 150 mg 150 mg PO DAILY Supplement 06/27/24 Unknown History iron capsule (Ferrex) acetaminophen 500 mg tablet 1,000 mg (2 x 500 mg) PO Q8 #0 tabs 07/15/24 Unknown Rx arginine 7 gram-glutam 7 1 packet PO BIDCM 30 days #60 ea 07/15/24 Unknown Rx gram-CaHMB 1.5 yoah-vsafw-hw-min oral pwd pkt (Papa (with collagen)) doxycycline monohydrate 100 mg 100 mg PO BID 60 days #120 caps 07/15/24 Unknown Rx capsule losartan 100 mg tablet 100 mg PO DAILY 30 days #30 tabs 07/15/24 Unknown Rx oxycodone 5 mg tablet 5 - 10 mg (1 - 2 x 5 mg) PO Q4H 07/15/24 Unknown Rx PRN PRN Pain Score 4-10 7 days #84 tabs potassium chloride 20 mEq 20 meq PO DAILYCM 30 days #30 tabs 07/15/24 Unknown Rx tablet,extended release(part/cryst) sennosides 8.6 mg-docusate sodium 2 tab PO BID 30 days #120 tabs 07/15/24 Unknown Rx 50 mg tablet (Stimulant Laxative Plus) Allergy/AdvReac Type Severity Reaction Status Date / Time latex Allergy Severe Other Verified 12/05/23 22:32 shellfish derived Allergy Severe PASSED Verified 12/05/23 22:32 OUT, DIARRHEA adhesive Allergy Mild Rash Verified 12/05/23 22:32 levofloxacin AdvReac Intermediate WEAK, Verified 12/05/23 22:32 NAUSEA povidone AdvReac Mild Hives Verified 12/05/23 22:32 Surgical History History of bilateral cataract extraction History of colonoscopy S/P insertion of spinal cord stimulator History of partial thyroidectomy History of appendectomy History of left knee surgery History of hysterectomy History of cholecystectomy Social History household members: spouse Smoking Status: Never smoker Electronic Cigarette Use: not used second hand exposure: No alcohol intake: current alcohol intake frequency: a few times a month Alcohol type: wine substance use type: does not use Vital Signs Vital Signs Vital Signs: Weight Weight: 180 lb 13.313 oz Body Mass Index (BMI) 34.1 Physical Exam Const alert, oriented x3, no apparent distress, no limitations, healthy appearing and well nourished Constitutional Narrative: The patient's BMI is 34.1. General Appearance: cooperative, comfortable, well kempt and well developed Orientation / Consciousness: awake, oriented to person, oriented to place and oriented to time Exam Limitations: no limitations HEENT normocephalic and head/scalp atraumatic Head and Scalp: normal to inspection, normocephalic and atraumatic Face and Sinus: normal facial exam Nose: external nose normal External Ear: external ears normal Eyes EOMs intact bilaterally General Eye: normal appearance of both eyes Neck full ROM Chest inspection of chest normal Resp normal respiratory effort, normal air movement, no retractions and no use of accessory muscles Effort and Inspection: able to speak in complete sentences Cardio regular rate Extremity no calf tenderness General Extremity: Negative for clubbing or cyanosis Skin Wound Narrative: A dehiscent longitudinal incision is noted overlying the left knee. The dehiscence extends through all layers and into the subcutaneous tissues. There is a small amount of nonviable, necrotic tissue at the base of the dehiscent incision, which continues to decrease with each successive clinic visit. The dry, necrotic eschar, noted at the patient's initial visit, is no longer present. There is no odor or drainage. There is no sign of infection or cellulitis. Dimensions are documented elsewhere. The size and depth of the dehiscent wound appears to be diminishing, visibly and by means of measured dimensions. Centrally, there is a large area of healthy, pink, granulation tissue, which continues to increase. The margins of the wound are becoming more beveled and amenable to healing. Approximately 1 cm superior to the large wound at the knee is a very small wound, which appears clean and healthy, demonstrating the presence of active granulation tissue, and continues to diminish in size and depth. Hair: normal Neuro oriented x3, CN's II-XII intact bilaterally, moves all extremities, no focal motor deficits and no sensory deficits noted Sensorium / Orientation: awake, alert, oriented to person, oriented to place and oriented to time Psych Appearance: grossly normal, appropriate and well kempt Attitude: calm Activity / Motor Behavior: appropriate eye contact Speech: normal speech Mood & Affect: euthymic mood Thought Process: normal thought process Thought Content: normal thought content Attention / Concentration: attention grossly intact Debridement Note Debridement Note Wound debrided: Dehiscent left knee incision with bioburden and nonviable tissue Laterality: Left Type of Debridement: Excisional debridement Anesthesia Used: 5% Lidocaine Gel Depth: Down to and including healthy tissue and in the subcutaneous layer Percentage of wound debrided: 100 Instrument Used: 5mm curette, Forceps and - (Scissors) Tissue Removed: Bioburden and nonviable tissue Severity: Fat Layer Exposed Amount of bleeding with debridement: Mild Bleeding Controlled with: Compression and gauze Patient tolerated procedure: Patient tolerated procedure well Post-Debridement Measurements and Additional Note: Post-Debridement Measurements/Treatment GINA - Nurse 1 - General Ulcer Assessment Start: 08/26/24 14:29 Freq: Status: Active Protocol: WC.LOWEXT Activity Type Activity Date Activity User E-sign Co-sign Detail Recorded Client Recorded Date Recorded By Document 08/26/24 14:30 KW [id number] 08/26/24 14:38 KW Document 08/27/24 15:28 KW [id number] 08/27/24 15:40 KW Document 08/29/24 08:41 KW [id number] 08/29/24 08:49 KW Document 09/02/24 13:45 KW [id number] 09/02/24 14:01 KW Document 09/05/24 11:58 RB [id number] 09/05/24 12:01 RB Document 09/09/24 14:10 RB [id number] 09/09/24 14:17 RB 08/26/24 08/27/24 08/29/24 14:30 15:28 08:41 WC - Today's Visit Information Type of service Follow-up Visit Nurse-only Nurse-only (Physician/DISEASE EDUCATION SPECIALIST Visit Visit ) Arrival Mode Wheelchair Wheelchair Wheelchair Transfer Assistance Accompanied by Patient Identification Verified (Name & Yes Yes Yes ) Patient Requires Transmission-Based Precautions Safety Precautions Height and Weight Body Mass Index (BMI) 34.1 34.1 34.1 BMI Classification Obese Obese Obese Vital Signs Temperature (97.8 F-99.1 F) 96.9 F L 96.5 F L 96.2 F L Temperature Source Temporal Temporal Temporal Pulse Rate (60-100) 71 64 72 Pulse Location Monitor Monitor Monitor Respiratory Rate (12-18) 18 18 18 Respiratory rate source Observation Observation Observation Oxygen Delivery Method Room Air Room Air Room Air Blood Pressure (90/60-120/80) 128/47 H 110/75 101/82 H Blood Pressure Mean 74 86 88 Source Monitor Monitor Monitor Position Semi-Fowlers Sitting Sitting Blood Pressure Location Left Arm Right Arm Left Arm History Since Last Visit- (Skip if this is Patient's initial visit) Have you changed medications since your No No No last visit? Any new allergies or adverse reactions No No No Had a fall/change in ADL's that may No No No increase risk of falls Signs or symptoms of abuse and/or No No No neglect since last visit Have you been in the hospital since your No No No last visit? Has dressing in place as prescribed Yes Yes Yes Has compression in place as prescribed Yes Yes Yes Has offloadiing in place as prescribed Yes Yes Yes Experienced any changes in pain level or No No No management Left Footwear Regular Shoe Regular Shoe Regular Shoe Right Footwear Regular Shoe Regular Shoe Regular Shoe Pain Scale: 0-10 Numeric Is Patient Pain Free? Yes Yes Yes 09/02/24 09/05/24 09/09/24 13:45 11:58 14:10 - Today's Visit Information Type of service Follow-up Visit Nurse-only Follow-up Visit (Physician/DISEASE EDUCATION SPECIALIST Visit (Physician/DISEASE EDUCATION SPECIALIST ) ) Arrival Mode Ambulatory, Ambulatory Ambulatory Walker Transfer Assistance None None Accompanied by Patient Identification Verified (Name & Yes Yes Yes ) Patient Requires Transmission-Based No Yes Precautions Safety Precautions NA Height and Weight Body Mass Index (BMI) 34.1 34.1 34.1 BMI Classification Obese Obese Obese Vital Signs Temperature (97.8 F-99.1 F) 98.2 F 97.3 F L 97 F L Temperature Source Temporal Temporal Temporal Pulse Rate (60-100) 62 74 61 Pulse Location Monitor Monitor Monitor Respiratory Rate (12-18) 18 18 18 Respiratory rate source Observation Observation Observation Oxygen Delivery Method Room Air Blood Pressure (90/60-120/80) 128/49 H 137/50 H 142/76 H Blood Pressure Mean 75 79 98 Source Monitor Monitor Monitor Position Semi-Fowlers Sitting Semi-Fowlers Blood Pressure Location Right Arm Left Arm Left Arm History Since Last Visit- (Skip if this is Patient's initial visit) Have you changed medications since your No No No last visit? Any new allergies or adverse reactions No No No Had a fall/change in ADL's that may No No No increase risk of falls Signs or symptoms of abuse and/or No No No neglect since last visit Have you been in the hospital since your No No No last visit? Has dressing in place as prescribed Yes Yes Yes Has compression in place as prescribed Yes Yes No Has offloadiing in place as prescribed N/A No No Experienced any changes in pain level or No No No management Left Footwear Regular Shoe Right Footwear Regular Shoe Pain Scale: 0-10 Numeric Is Patient Pain Free? Yes Yes Yes - Nurse 1 - General Ulcer Measurement Start: 08/26/24 14:29 Freq: Status: Active Protocol: Activity Type Activity Date Activity User E-sign Co-sign Detail Recorded Client Recorded Date Recorded By Document 08/26/24 14:30 KW [id number] 08/26/24 14:38 KW Document 09/02/24 13:45 KW [id number] 09/02/24 14:01 KW Document 09/05/24 11:58 RB [id number] 09/05/24 12:01 RB Document 09/09/24 14:10 RB [id number] 09/09/24 14:17 RB 08/26/24 09/02/24 09/05/24 14:30 13:45 11:58 Wound Center Nurse 1 #1,.L knee -Combined with other wound No -Current Size (cm) - Length 12 11 -Current Size (cm) - Width 2.6 2.2 -Current Size (cm) - Depth 0.7 0.3 -Total Square Cm 31.2 24.2 -Date of Last Picture (Recall this 09/02/24 field) -Epithelialization Medium 34-66% -Tunneling -Undermining/Tunneling -Undermining/Tunneling Starts (O'clock ) -Undermining/Tunneling Ends (O'clock) -Maximum Distance (cm) -Circular Undermining -Exudate Amt Small Medium -Exudate Type Serosanguineous Serosanguineous -Wound Margin Distinct, Distinct, Outline Outline Attached Attached -Granulation Amt Large (67-100%) Medium (34-66%) Large (67-100%) -Granulation Quality [place],Red Red [place] -Slough/Fibrin -Necrosis Amt Medium (34-66%) Medium (34-66%) Medium (34-66%) -Necrotic Tissue Type Adherent Slough Adherent Slough Adherent Slough -Structure Exposed N/A -Texture (Anali-wound Skin Appearance) Assessed Assessed Assessed -Moisture (Anali-wound Skin Appearance) Assessed Assessed Assessed -Color (Anali-wound Skin Appearance) Assessed Assessed Assessed -Temperature (Anali-wound Skin No Abnormality No Abnormality Appearance) (Pt Warm) (Pt Warm) -Tenderness on Palpation (Anali-wound No Skin Appearance) -Ulcer Cleansing Soap and Water Soap and Water Rinsed/ Irrigated with Saline -Foul Odor after Cleansing No No -Anesthetic Used 4% Lidocaine 4% Lidocaine Solution Solution Lower Limb Edema Present Left Calf (cm) Left Ankle (cm) 09/09/24 14:10 Wound Center Nurse 1 #1,.L knee -Combined with other wound No -Current Size (cm) - Length 9.2 -Current Size (cm) - Width 2.1 -Current Size (cm) - Depth 0.8 -Total Square Cm 19.32 -Date of Last Picture (Recall this field) -Epithelialization -Tunneling No -Undermining/Tunneling Yes -Undermining/Tunneling Starts (O'clock 5 ) -Undermining/Tunneling Ends (O'clock) 6 -Maximum Distance (cm) 0.4 -Circular Undermining No -Exudate Amt Large -Exudate Type Serosanguineous -Wound Margin Distinct, Outline Attached -Granulation Amt Medium (34-66%) -Granulation Quality [place] -Slough/Fibrin Yes -Necrosis Amt Medium (34-66%) -Necrotic Tissue Type Adherent Slough -Structure Exposed N/A -Texture (Anali-wound Skin Appearance) Assessed -Moisture (Anali-wound Skin Appearance) Assessed -Color (Anali-wound Skin Appearance) Assessed -Temperature (Anali-wound Skin No Abnormality Appearance) (Pt Warm) -Tenderness on Palpation (Anali-wound No Skin Appearance) -Ulcer Cleansing Wound Cleanser -Foul Odor after Cleansing No -Anesthetic Used 5% Lidocaine Gel Lower Limb Edema Present Yes Left Calf (cm) 41.4 Left Ankle (cm) 26.4 WC - Nurse 2 - General Ulcer CM Notes Start: 08/26/24 14:29 Freq: Status: Active Protocol: Activity Type Activity Date Activity User E-sign Co-sign Detail Recorded Client Recorded Date Recorded By Document 08/26/24 14:52 DS [id number] 08/26/24 14:59 DS Document 09/02/24 14:31 DS [id number] 09/02/24 14:38 DS Document 09/09/24 14:40 DS [id number] 09/09/24 14:44 DS 08/26/24 09/02/24 09/09/24 14:52 14:31 14:40 Wound Center Nurse 2 #1,.L knee -Time 14:47 14:30 14:41 -Correct Patient Yes Yes Yes -Correct Side, Site, Position Yes Yes Yes -Correct Procedure Yes Yes Yes -Procedure Performed Yes Yes Yes -Type of Procedure Debridement Debridement Debridement -Clinical Debridement Subcutaneous Subcutaneous Subcutaneous -Tissue Removed Subcutaneous Subcutaneous Subcutaneous -Post Debridement (cm) - Length 13.0 11.8 11.4 -Post Debridement (cm) - Width 2.5 2.5 2.1 -Post Debridement (cm) - Depth 1.0 0.8 0.5 -Total Square (Post) (cm) 32.50 29.50 23.94 -Area of Debridement (cm) - Length 13.0 11.8 11.4 -Area of Debridement (cm) - Width 2.5 2.5 2.1 -Total Square (Area) (cm) 32.50 29.50 23.94 -Tunneling No No No -Undermining/Tunneling Yes No No -Undermining/Tunneling Starts (O'clock 12 ) -Undermining/Tunneling Ends (O'clock) 6 -Maximum Distance (cm) 0.3 -Circular Undermining No No No -Wound/Ulcer Outcome Not Healed Not Healed Not Healed -Ulcer Cleansing Rinsed/ Rinsed/ Rinsed/ Irrigated with Irrigated with Irrigated with Saline Saline Saline -Bioengineered Tissue No No No -Bleeding Controlled with Pressure Pressure -Treatment Response Procedure Procedure Tolerated Well Tolerated Well -Debridement - Subq, 1st 20sq cm Yes Yes Yes -Debridement, SubQ, ea addt'l 20sq cm 1 1 1 or part thereof Pain Scale: 0-10 Numeric Is Patient Pain Free? Yes Yes Yes WC - Nurse 3 - General Ulcer D/C NN Start: 08/26/24 14:29 Freq: Status: Active Protocol: Activity Type Activity Date Activity User E-sign Co-sign Detail Recorded Client Recorded Date Recorded By Document 08/26/24 15:59 KW [id number] 08/26/24 15:59 KW Document 08/27/24 15:28 KW [id number] 08/27/24 15:40 KW Document 08/29/24 08:41 KW [id number] 08/29/24 08:49 KW Document 09/02/24 14:44 KW [id number] 09/02/24 14:45 KW Document 09/05/24 11:58 RB [id number] 09/05/24 12:01 RB Document 09/09/24 15:17 JF 0000 09/09/24 15:17 JF 08/26/24 08/27/24 08/29/24 15:59 15:28 08:41 Wound Care Center Nurse 3 #1,.L knee -Ulcer Cleansing Soap and Water Soap and Water -Foul Odor after Cleansing No No -Negative Pressure Wound Therapy Start Continue -Setting (mmHg) 125 125 -Negative Pressure is Continuous Continuous -Regranex (If Applicable) -Other Dressing 1/4 iodoform from pt with santyl to large incision -Primary Dressing Covered/Secured with Dry Gauze & Roll Gauze, Secured with Tape -NPWT Application Charge NPWT > 50 sq cm NPWT > 50 sq cm ($) ($) Left -Compression Wrap Randy Wrap Randy Wrap Randy Wrap -Other Treatment Response Vital Signs Temperature (97.8 F-99.1 F) 96.5 F L 96.2 F L Temperature Source Temporal Temporal Pulse Rate (60-100) 64 72 Pulse Location Monitor Monitor Respiratory Rate (12-18) 18 18 Respiratory rate source Observation Observation Oxygen Delivery Method Room Air Room Air Blood Pressure (90/60-120/80) 110/75 101/82 H Blood Pressure Mean 86 88 Source Monitor Monitor Position Sitting Sitting Blood Pressure Location Right Arm Left Arm Pain Scale: 0-10 Numeric Is Patient Pain Free? Yes Yes Yes WC - Visit Discharge Discharge Condition Stable Stable Ambulatory Status Wheelchair Transportation Private Auto Private Auto Accompanied by Medication Reconcilliation completed & No No provided to patient/care provider Clinical Summary of Care Provided Yes Yes 09/02/24 09/05/24 09/09/24 14:44 11:58 15:17 Wound Care Center Nurse 3 #1,.L knee -Ulcer Cleansing Wound Cleanser Rinsed/ Irrigated with Saline -Foul Odor after Cleansing No -Negative Pressure Wound Therapy Continue Continue Continue -Setting (mmHg) 125 125 125 -Negative Pressure is Continuous Continuous Continuous -Regranex (If Applicable) Continue -Other Dressing -Primary Dressing Covered/Secured with -NPWT Application Charge NPWT & NPWT </= 50 sq NPWT & Debridement (nc cm ($) Debridement (nc ) ) Left -Compression Wrap Randy Wrap -Other randy ABD under tubing Treatment Response Procedure Tolerated Well Vital Signs Temperature (97.8 F-99.1 F) 97.3 F L Temperature Source Temporal Pulse Rate (60-100) 74 Pulse Location Monitor Respiratory Rate (12-18) 18 Respiratory rate source Observation Oxygen Delivery Method Blood Pressure (90/60-120/80) 137/50 H Blood Pressure Mean 79 Source Monitor Position Sitting Blood Pressure Location Left Arm Pain Scale: 0-10 Numeric Is Patient Pain Free? Yes Yes Yes WC - Visit Discharge Discharge Condition Stable Stable Stable Ambulatory Status Ambulatory, Ambulatory, Ambulatory, Walker Walker Walker Transportation Private Auto Private Auto Private Auto Accompanied by Medication Reconcilliation completed & No No Yes provided to patient/care provider Clinical Summary of Care Provided Yes Yes Yes Charges/Coding Procedures Integumentary [id number]: [id number] Trinidad subq tissue 20 sq cm/< Add On Codes: 08476 Trinidad subq tissue add-on Assessment/Plan Assessment/Plan (1) Dehiscence of incision: CODE(S): T81.31XA - Disruption of external operation (surgical) wound, not elsewhere classified, initial encounter QUALIFIERS: Encounter type: subsequent encounter Qualified Code(s): T81.31XD - Disruption of external operation (surgical) wound, not elsewhere classified, subsequent encounter (2) Gangrene associated with type 2 diabetes mellitus: CODE(S): E11.52 - Type 2 diabetes mellitus with diabetic peripheral angiopathy with gangrene (3) Status post revision of total replacement of left knee: CODE(S): Z96.652 - Presence of left artificial knee joint (4) Failed total left knee replacement: CODE(S): T84.093A - Other mechanical complication of internal left knee prosthesis, initial encounter QUALIFIERS: Encounter type: subsequent encounter Qualified Code(s): T84.093D - Other mechanical complication of internal left knee prosthesis, subsequent encounter (5) History of left knee surgery: CODE(S): Z98.890 - Other specified postprocedural states (6) Diabetes: CODE(S): E11.9 - Type 2 diabetes mellitus without complications QUALIFIERS: Diabetes mellitus type: type 2 (7) Diabetic polyneuropathy: CODE(S): E11.42 - Type 2 diabetes mellitus with diabetic polyneuropathy (8) GERD (gastroesophageal reflux disease): CODE(S): K21.9 - Gastro-esophageal reflux disease without esophagitis (9) Hyperlipemia: CODE(S): E78.5 - Hyperlipidemia, unspecified (10) Iron deficiency anemia: CODE(S): D50.9 - Iron deficiency anemia, unspecified (11) Essential (primary) hypertension: CODE(S): I10 - Essential (primary) hypertension (12) Debility: CODE(S): R53.81 - Other malaise (13) Status post total right knee replacement: CODE(S): Z96.651 - Presence of right artificial knee joint (14) Osteoarthritis: (15) History of DVT (deep vein thrombosis): CODE(S): Z86.718 - Personal history of other venous thrombosis and embolism (16) Dyslipidemia: CODE(S): E78.5 - Hyperlipidemia, unspecified (17) Hypothyroidism: CODE(S): E03.9 - Hypothyroidism, unspecified (18) Ocular myasthenia gravis: CODE(S): G70.00 - Myasthenia gravis without (acute) exacerbation (19) History of partial thyroidectomy: CODE(S): E89.0 - Postprocedural hypothyroidism (20) History of appendectomy: CODE(S): Z90.49 - Acquired absence of other specified parts of digestive tract (21) History of hysterectomy: CODE(S): Z90.710 - Acquired absence of both cervix and uterus (22) History of cholecystectomy: CODE(S): Z90.49 - Acquired absence of other specified parts of digestive tract (23) Non-smoker: CODE(S): Z78.9 - Other specified health status (24) History of hiatal hernia: CODE(S): Z87.19 - Personal history of other diseases of the digestive system (25) History of revision of total replacement of left knee joint: CODE(S): Z96.652 - Presence of left artificial knee joint (26) History of bilateral cataract extraction: CODE(S): Z98.41 - Cataract extraction status, right eye; Z98.42 - Cataract extraction status, left eye PLAN: Plan This is a 73-year-old female who underwent the fourth revision of a left total knee replacement on June 19, 2024. She developed gangrene, necrosis, and dehiscence at the surgical site. As a result, the patient presented for definitive evaluation and management with respect to her surgical wound. A large amount of necrotic and nonviable tissue has been eliminated from the site of the patient's surgical wound over the last several weeks. Negative pressure wound. Has been initiated by means of the Wound VAC. The patient appears to be tolerating negative pressure wound therapy without difficulty, which appears to be having a positive effect on the patient's wound healing. There are increasing areas of healthy, pink granulation tissue. The wound appears to be decreasing in size. The wound VAC will be applied twice weekly, at a setting of 125 mmHg continuous negative pressure. Both the primary dehiscence and a small satellite wound are to be managed by means of negative pressure wound therapy. The patient has been encouraged to optimize her nutritional intake, as well as her diabetes management. She has been encouraged to continue taking Papa as a nutritional supplement. She is to coordinate with her primary care physician with regard to diabetes management. She is to continue on her course of doxycycline as prescribed by her other physicians. She has been encouraged to elevate her left lower extremity to prevent and minimize swelling. Elevation is to be to heart level, during both daytime and nighttime hours. Avoidance of prolonged idle sitting has been encouraged. Activity as tolerated encouraged, within the boundaries as set by her orthopedic surgeon. Tubigrip's have been dispensed for compression purposes. The patient is to follow-up in 1 week for reevaluation. The patient has been recently evaluated by her Plastic Surgeon, Dr. Urban Horton, and has another appointment with him later this week. The patient is to follow-up in our clinic in 1 week. Total time: 25 minutes
[2024-09-16 10:21] VITALS: BP 151/55; PULSE 62; RESP 18; TEMP 36.3; BMI 34.1
--- NOTE | 2024-09-17 15:11 | HP.PCM_ITS ---
History of Present Illness Date of Service: 09/16/24 Chief Complaint: Dehiscent, necrotic surgical wound of the left knee History of Wound: This is a 73-year-old female with a history of left total knee replacement many years ago, which has required several revisions. The most recent revision was performed on June 19, 2024, at the [facility]. This was the fourth left knee revision. Prior revisions required flap reconstruction, and the Plastic Surgery service was involved in the patient's most recent surgery. Postoperatively, the patient was placed on oral doxycycline, which is expected to continue for 3 months. The patient's left lower extremity was locked in extension for 2 weeks. She is now weightbearing on the involved limb. She was admitted to the Transitional Care Unit at [facility] for several weeks postoperatively on June 27, 2024. 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 The patient developed a surgical wound dehiscence and marjorie necrosis and gangrene at the site of her incision. A wound VAC was used initially at the surgical site, but the patient had been using Xeroform more recently. The patient suffers from multiple pre-existing medical conditions, listed herein. She does not smoke. She is using Papa as a nutritional supplement. Her BMI is 34.1. [facility] Medical History Gangrene associated with type 2 diabetes mellitus Dehiscence of incision History of revision of total replacement of left knee joint Wears glasses Alcohol use History of steroid therapy Bladder disease Neuropathy Back pain Dietary restriction History of pain when walking Pain Myasthenia gravis Ambulates with cane Rheumatoid arthritis Low iron History of DVT (deep vein thrombosis) Hyperlipemia Difficulty swallowing History of hiatal hernia Gastric reflux Non-smoker Shortness of breath on exertion Chronic cough PONV (postoperative nausea and vomiting) Leg cramps History of edema History of stress test Hypertension Thyroid disease Cataracts, bilateral History of UTI Arthritis Home Medications ?Medication ?Instructions ?Recorded ?Last Taken ?Type folic acid 1 mg tablet 1 mg PO DAILY supplement 10/13/13 06/06/22 History atorvastatin 10 mg tablet 5 mg PO .QOD Cholesterol 09/06/21 06/26/24 18:45 History cholecalciferol (vitamin D3) 50 50 mcg PO DAILY supplement 09/06/21 06/27/24 History mcg (2,000 unit) capsule glimepiride 4 mg tablet 4 mg PO BID blood sugar 09/06/21 06/27/24 History ascorbic acid (vitamin C) 500 mg 500 mg PO DAILY supplement 02/06/22 06/27/24 History tablet (Vitamin C) omeprazole magnesium 20 mg 20 mg PO DAILY GERD 02/06/22 06/06/22 History tablet,delayed release (Prilosec OTC) dapagliflozin propanediol 5 mg 10 mg PO DAILY blood sugar 05/25/22 06/06/22 History tablet (Farxiga) levothyroxine 125 mcg tablet 100 mcg PO DAILY thyroid 05/25/22 06/27/24 History pregabalin 75 mg capsule (Lyrica) 100 mg PO TID pain 05/25/22 06/06/22 History hydrochlorothiazide 12.5 mg tablet 12.5 mg PO DAILY Blood pressure 06/07/22 Unknown History vibegron 75 mg tablet (Gemtesa) 75 mg PO DAILY Overactive bladder 12/04/22 U nknown History apixaban 2.5 mg tablet 2.5 mg PO BID Anticoagulant 06/27/24 06/27/24 08:45 History cyanocobalamin (vitamin B-12) 1,000 mcg PO DAILY Supplement 06/27/24 Unknown History 1,000 mcg capsule metformin 500 mg tablet,extended 1,000 mg PO BID Diabetes 06/27/24 06/27/24 05:30 History release 24 hr methocarbamol 500 mg tablet 500 mg PO TID Muscle spasms 06/27/24 06/27/24 08:45 History polysaccharide iron complex 150 mg 150 mg PO DAILY Supplement 06/27/24 Unknown History iron capsule (Ferrex) acetaminophen 500 mg tablet 1,000 mg (2 x 500 mg) PO Q8 #0 tabs 07/15/24 Unknown Rx arginine 7 gram-glutam 7 1 packet PO BIDCM 30 days #60 ea 07/15/24 Unknown Rx gram-CaHMB 1.5 [id number]-min oral pwd pkt (Papa (with collagen)) doxycycline monohydrate 100 mg 100 mg PO BID 60 days #120 caps 07/15/24 Unknown Rx capsule losartan 100 mg tablet 100 mg PO DAILY 30 days #30 tabs 07/15/24 Unknown Rx oxycodone 5 mg tablet 5 - 10 mg (1 - 2 x 5 mg) PO Q4H 07/15/24 Unknown Rx PRN PRN Pain Score 4-10 7 days #84 tabs potassium chloride 20 mEq 20 meq PO DAILYCM 30 days #30 tabs 07/15/24 Unknown Rx tablet,extended release(part/cryst) sennosides 8.6 mg-docusate sodium 2 tab PO BID 30 days #120 tabs 07/15/24 Unknown Rx 50 mg tablet (Stimulant Laxative Plus) Allergy/AdvReac Type Severity Reaction Status Date / Time latex Allergy Severe Other Verified 12/05/23 22:32 shellfish derived Allergy Severe PASSED Verified 12/05/23 22:32 OUT, DIARRHEA adhesive Allergy Mild Rash Verified 12/05/23 22:32 levofloxacin AdvReac Intermediate WEAK, Verified 12/05/23 22:32 NAUSEA povidone AdvReac Mild Hives Verified 12/05/23 22:32 Surgical History History of bilateral cataract extraction History of colonoscopy S/P insertion of spinal cord stimulator History of partial thyroidectomy History of appendectomy History of left knee surgery History of hysterectomy History of cholecystectomy Social History household members: spouse Smoking Status: Never smoker Electronic Cigarette Use: not used second hand exposure: No alcohol intake: current alcohol intake frequency: a few times a month Alcohol type: wine substance use type: does not use Vital Signs Vital Signs Vital Signs: Weight Weight: 180 lb 13.313 oz Body Mass Index (BMI) 34.1 Physical Exam Const alert, oriented x3, no apparent distress, no limitations, healthy appearing and well nourished Constitutional Narrative: The patient's BMI is 34.1. General Appearance: cooperative, comfortable, well kempt and well developed Orientation / Consciousness: awake, oriented to person, oriented to place and oriented to time Exam Limitations: no limitations HEENT normocephalic and head/scalp atraumatic Head and Scalp: normal to inspection, normocephalic and atraumatic Face and Sinus: normal facial exam Nose: external nose normal External Ear: external ears normal Eyes EOMs intact bilaterally General Eye: normal appearance of both eyes Neck full ROM Chest inspection of chest normal Resp normal respiratory effort, normal air movement, no retractions and no use of accessory muscles Effort and Inspection: able to speak in complete sentences Cardio regular rate Extremity no calf tenderness General Extremity: Negative for clubbing or cyanosis Skin Wound Narrative: A dehiscent longitudinal incision is noted overlying the left knee. The dehiscence extends through all layers and into the subcutaneous tissues. The dry, necrotic eschar, noted at the patient's initial visit, is no longer present. There is no odor or drainage. There is no sign of infection or cellulitis. Dimensions are documented elsewhere. The size and depth of the dehiscent wound appears to be diminishing, visibly and by means of measured dimensions. There is a large area of healthy, pink, granulation tissue, which continues to increase. The margins of the wound are becoming more beveled and amenable to healing. A small portion of the wound appears to extend down to underlying fascia, though the amount of exposed fascia continues to diminish. Approximately 1 cm superior to the large wound at the knee is a very small satellite wound, which appears clean and healthy, demonstrating the presence of active granulation tissue, and continues to diminish in size and depth. Hair: normal Neuro oriented x3, CN's II-XII intact bilaterally, moves all extremities, no focal motor deficits and no sensory deficits noted Sensorium / Orientation: awake, alert, oriented to person, oriented to place and oriented to time Psych Appearance: grossly normal, appropriate and well kempt Attitude: calm Activity / Motor Behavior: appropriate eye contact Speech: normal speech Mood & Affect: euthymic mood Thought Process: normal thought process Thought Content: normal thought content Attention / Concentration: attention grossly intact Debridement Note Debridement Note Wound debrided: Dehiscent left knee incision with bioburden and nonviable tissue Laterality: Left Type of Debridement: Excisional debridement Anesthesia Used: 5% Lidocaine Gel Depth: Down to and including healthy tissue and in the subcutaneous layer Percentage of wound debrided: 100 Instrument Used: 5mm curette Tissue Removed: Bioburden and nonviable tissue Severity: Fat Layer Exposed Amount of bleeding with debridement: Mild Bleeding Controlled with: Compression and gauze Patient tolerated procedure: Patient tolerated procedure well Post-Debridement Measurements and Additional Note: Post-Debridement Measurements/Treatment GINA - Nurse 1 - General Ulcer Assessment Start: 08/26/24 14:29 Freq: Status: Active Protocol: KENNY Activity Type Activity Date Activity User E-sign Co-sign Detail Recorded Client Recorded Date Recorded By Document 08/26/24 14:30 KW [id number] 08/26/24 14:38 KW Document 08/27/24 15:28 KW [id number] 08/27/24 15:40 KW Document 08/29/24 08:41 KW [id number] 08/29/24 08:49 KW Document 09/02/24 13:45 KW [id number] 09/02/24 14:01 KW Document 09/05/24 11:58 RB [id number] 09/05/24 12:01 RB Document 09/09/24 14:10 RB [id number] 09/09/24 14:17 RB Document 09/16/24 10:21 RB [id number] 09/16/24 10:23 RB 08/26/24 08/27/24 08/29/24 14:30 15:28 08:41 WC - Today's Visit Information Type of service Follow-up Visit Nurse-only Nurse-only (Physician/MARKETING INFORMATION MANAGER Visit Visit ) Arrival Mode Wheelchair Wheelchair Wheelchair Transfer Assistance Accompanied by Patient Identification Verified (Name & Yes Yes Yes ) Patient Requires Transmission-Based Precautions Safety Precautions Height and Weight Body Mass Index (BMI) 34.1 34.1 34.1 BMI Classification Obese Obese Obese Vital Signs Temperature (97.8 F-99.1 F) 96.9 F L 96.5 F L 96.2 F L Temperature Source Temporal Temporal Temporal Pulse Rate (60-100) 71 64 72 Pulse Location Monitor Monitor Monitor Respiratory Rate (12-18) 18 18 18 Respiratory rate source Observation Observation Observation Oxygen Delivery Method Room Air Room Air Room Air Blood Pressure (90/60-120/80) 128/47 H 110/75 101/82 H Blood Pressure Mean 74 86 88 Source Monitor Monitor Monitor Position Semi-Fowlers Sitting Sitting Blood Pressure Location Left Arm Right Arm Left Arm History Since Last Visit- (Skip if this is Patient's initial visit) Have you changed medications since your No No No last visit? Any new allergies or adverse reactions No No No Had a fall/change in ADL's that may No No No increase risk of falls Signs or symptoms of abuse and/or No No No neglect since last visit Have you been in the hospital since your No No No last visit? Has dressing in place as prescribed Yes Yes Yes Has compression in place as prescribed Yes Yes Yes Has offloadiing in place as prescribed Yes Yes Yes Experienced any changes in pain level or No No No management Left Footwear Regular Shoe Regular Shoe Regular Shoe Right Footwear Regular Shoe Regular Shoe Regular Shoe Pain Scale: 0-10 Numeric Is Patient Pain Free? Yes Yes Yes 09/02/24 09/05/24 09/09/24 13:45 11:58 14:10 WC - Today's Visit Information Type of service Follow-up Visit Nurse-only Follow-up Visit (Physician/MARKETING INFORMATION MANAGER Visit (Physician/MARKETING INFORMATION MANAGER ) ) Arrival Mode Ambulatory, Ambulatory Ambulatory Walker Transfer Assistance None None Accompanied by Patient Identification Verified (Name & Yes Yes Yes ) Patient Requires Transmission-Based No Yes Precautions Safety Precautions NA Height and Weight Body Mass Index (BMI) 34.1 34.1 34.1 BMI Classification Obese Obese Obese Vital Signs Temperature (97.8 F-99.1 F) 98.2 F 97.3 F L 97 F L Temperature Source Temporal Temporal Temporal Pulse Rate (60-100) 62 74 61 Pulse Location Monitor Monitor Monitor Respiratory Rate (12-18) 18 18 18 Respiratory rate source Observation Observation Observation Oxygen Delivery Method Room Air Blood Pressure (90/60-120/80) 128/49 H 137/50 H 142/76 H Blood Pressure Mean 75 79 98 Source Monitor Monitor Monitor Position Semi-Fowlers Sitting Semi-Fowlers Blood Pressure Location Right Arm Left Arm Left Arm History Since Last Visit- (Skip if this is Patient's initial visit) Have you changed medications since your No No No last visit? Any new allergies or adverse reactions No No No Had a fall/change in ADL's that may No No No increase risk of falls Signs or symptoms of abuse and/or No No No neglect since last visit Have you been in the hospital since your No No No last visit? Has dressing in place as prescribed Yes Yes Yes Has compression in place as prescribed Yes Yes No Has offloadiing in place as prescribed N/A No No Experienced any changes in pain level or No No No management Left Footwear Regular Shoe Right Footwear Regular Shoe Pain Scale: 0-10 Numeric Is Patient Pain Free? Yes Yes Yes 09/16/24 10:21 WC - Today's Visit Information Type of service Follow-up Visit (Physician/MARKETING INFORMATION MANAGER ) Arrival Mode Ambulatory Transfer Assistance None Accompanied by Patient Identification Verified (Name & Yes ) Patient Requires Transmission-Based No Precautions Safety Precautions Height and Weight Body Mass Index (BMI) 34.1 BMI Classification Obese Vital Signs Temperature (97.8 F-99.1 F) 97.4 F L Temperature Source Temporal Pulse Rate (60-100) 62 Pulse Location Monitor Respiratory Rate (12-18) 18 Respiratory rate source Observation Oxygen Delivery Method Blood Pressure (90/60-120/80) 151/55 H Blood Pressure Mean 87 Source Monitor Position Semi-Fowlers Blood Pressure Location Left Arm History Since Last Visit- (Skip if this is Patient's initial visit) Have you changed medications since your No last visit? Any new allergies or adverse reactions No Had a fall/change in ADL's that may No increase risk of falls Signs or symptoms of abuse and/or No neglect since last visit Have you been in the hospital since your No last visit? Has dressing in place as prescribed Yes Has compression in place as prescribed No Has offloadiing in place as prescribed No Experienced any changes in pain level or No management Left Footwear Right Footwear Pain Scale: 0-10 Numeric Is Patient Pain Free? Yes WC - Nurse 1 - General Ulcer Measurement Start: 08/26/24 14:29 Freq: Status: Active Protocol: Activity Type Activity Date Activity User E-sign Co-sign Detail Recorded Client Recorded Date Recorded By Document 08/26/24 14:30 KW [id number] 08/26/24 14:38 KW Document 09/02/24 13:45 KW [id number] 09/02/24 14:01 KW Document 09/05/24 11:58 RB [id number] 09/05/24 12:01 RB Document 09/09/24 14:10 RB [id number] 09/09/24 14:17 RB Document 09/16/24 10:21 RB [id number] 09/16/24 10:23 RB 08/26/24 09/02/24 09/05/24 14:30 13:45 11:58 Wound Center Nurse 1 #1,.L knee -Combined with other wound No -Current Size (cm) - Length 12 11 -Current Size (cm) - Width 2.6 2.2 -Current Size (cm) - Depth 0.7 0.3 -Total Square Cm 31.2 24.2 -Date of Last Picture (Recall this 09/02/24 field) -Epithelialization Medium 34-66% -Tunneling -Undermining/Tunneling -Undermining/Tunneling Starts (O'clock ) -Undermining/Tunneling Ends (O'clock) -Maximum Distance (cm) -Circular Undermining -Exudate Amt Small Medium -Exudate Type Serosanguineous Serosanguineous -Wound Margin Distinct, Distinct, Outline Outline Attached Attached -Granulation Amt Large (67-100%) Medium (34-66%) Large (67-100%) -Granulation Quality [place],Red Red [place] -Slough/Fibrin -Necrosis Amt Medium (34-66%) Medium (34-66%) Medium (34-66%) -Necrotic Tissue Type Adherent Slough Adherent Slough Adherent Slough -Structure Exposed N/A -Texture (Anali-wound Skin Appearance) Assessed Assessed Assessed -Moisture (Anali-wound Skin Appearance) Assessed Assessed Assessed -Color (Anali-wound Skin Appearance) Assessed Assessed Assessed -Temperature (Anali-wound Skin No Abnormality No Abnormality Appearance) (Pt Warm) (Pt Warm) -Tenderness on Palpation (Anali-wound No Skin Appearance) -Ulcer Cleansing Soap and Water Soap and Water Rinsed/ Irrigated with Saline -Foul Odor after Cleansing No No -Anesthetic Used 4% Lidocaine 4% Lidocaine Solution Solution Lower Limb Edema Present Left Calf (cm) Left Ankle (cm) 09/09/24 09/16/24 14:10 10:21 Wound Center Nurse 1 #1,.L knee -Combined with other wound No No -Current Size (cm) - Length 9.2 11.4 -Current Size (cm) - Width 2.1 2.4 -Current Size (cm) - Depth 0.8 0.5 -Total Square Cm 19.32 27.36 -Date of Last Picture (Recall this field) -Epithelialization -Tunneling No No -Undermining/Tunneling Yes No -Undermining/Tunneling Starts (O'clock 5 ) -Undermining/Tunneling Ends (O'clock) 6 -Maximum Distance (cm) 0.4 -Circular Undermining No No -Exudate Amt Large Medium -Exudate Type Serosanguineous Serosanguineous -Wound Margin Distinct, Distinct, Outline Outline Attached Attached -Granulation Amt Medium (34-66%) Medium (34-66%) -Granulation Quality [place] -Slough/Fibrin Yes Yes -Necrosis Amt Medium (34-66%) Medium (34-66%) -Necrotic Tissue Type Adherent Slough Adherent Slough -Structure Exposed N/A N/A -Texture (Anali-wound Skin Appearance) Assessed Assessed, Scarring -Moisture (Anali-wound Skin Appearance) Assessed Assessed -Color (Anali-wound Skin Appearance) Assessed Assessed -Temperature (Anali-wound Skin No Abnormality No Abnormality Appearance) (Pt Warm) (Pt Warm) -Tenderness on Palpation (Anali-wound No No Skin Appearance) -Ulcer Cleansing Wound Cleanser Wound Cleanser -Foul Odor after Cleansing No No -Anesthetic Used 5% Lidocaine 4% Lidocaine Gel Solution Lower Limb Edema Present Yes Left Calf (cm) 41.4 Left Ankle (cm) 26.4 WC - Nurse 2 - General Ulcer CM Notes Start: 08/26/24 14:29 Freq: Status: Active Protocol: Activity Type Activity Date Activity User E-sign Co-sign Detail Recorded Client Recorded Date Recorded By Document 08/26/24 14:52 DS [id number] 08/26/24 14:59 DS Document 09/02/24 14:31 DS [id number] 09/02/24 14:38 DS Document 09/09/24 14:40 DS [id number] 09/09/24 14:44 DS Document 09/16/24 10:33 DS [id number] 09/16/24 10:40 DS 08/26/24 09/02/24 09/09/24 14:52 14:31 14:40 Wound Center Nurse 2 #1,.L knee -Time 14:47 14:30 14:41 -Correct Patient Yes Yes Yes -Correct Side, Site, Position Yes Yes Yes -Correct Procedure Yes Yes Yes -Procedure Performed Yes Yes Yes -Type of Procedure Debridement Debridement Debridement -Clinical Debridement Subcutaneous Subcutaneous Subcutaneous -Tissue Removed Subcutaneous Subcutaneous Subcutaneous -Post Debridement (cm) - Length 13.0 11.8 11.4 -Post Debridement (cm) - Width 2.5 2.5 2.1 -Post Debridement (cm) - Depth 1.0 0.8 0.5 -Total Square (Post) (cm) 32.50 29.50 23.94 -Area of Debridement (cm) - Length 13.0 11.8 11.4 -Area of Debridement (cm) - Width 2.5 2.5 2.1 -Total Square (Area) (cm) 32.50 29.50 23.94 -Tunneling No No No -Undermining/Tunneling Yes No No -Undermining/Tunneling Starts (O'clock 12 ) -Undermining/Tunneling Ends (O'clock) 6 -Maximum Distance (cm) 0.3 -Circular Undermining No No No -Wound/Ulcer Outcome Not Healed Not Healed Not Healed -Ulcer Cleansing Rinsed/ Rinsed/ Rinsed/ Irrigated with Irrigated with Irrigated with Saline Saline Saline -Bioengineered Tissue No No No -Bleeding Controlled with Pressure Pressure -Treatment Response Procedure Procedure Tolerated Well Tolerated Well -Debridement - Subq, 1st 20sq cm Yes Yes Yes -Debridement, SubQ, ea addt'l 20sq cm 1 1 1 or part thereof -Wound Comment(s) Pain Scale: 0-10 Numeric Is Patient Pain Free? Yes Yes Yes 09/16/24 10:33 Wound Center Nurse 2 #1,.L knee -Time 10:33 -Correct Patient Yes -Correct Side, Site, Position Yes -Correct Procedure Yes -Procedure Performed Yes -Type of Procedure Debridement -Clinical Debridement Subcutaneous -Tissue Removed Subcutaneous -Post Debridement (cm) - Length 11.3 -Post Debridement (cm) - Width 2.5 -Post Debridement (cm) - Depth 0.8 -Total Square (Post) (cm) 28.25 -Area of Debridement (cm) - Length 11.3 -Area of Debridement (cm) - Width 2.5 -Total Square (Area) (cm) 28.25 -Tunneling No -Undermining/Tunneling No -Undermining/Tunneling Starts (O'clock ) -Undermining/Tunneling Ends (O'clock) -Maximum Distance (cm) -Circular Undermining No -Wound/Ulcer Outcome Not Healed -Ulcer Cleansing Rinsed/ Irrigated with Saline -Bioengineered Tissue No -Bleeding Controlled with Pressure -Treatment Response Procedure Tolerated Well -Debridement - Subq, 1st 20sq cm Yes -Debridement, SubQ, ea addt'l 20sq cm 1 or part thereof -Wound Comment(s) ceticaine spray used. Pain Scale: 0-10 Numeric Is Patient Pain Free? Yes - Nurse 3 - General Ulcer D/C NN Start: 08/26/24 14:29 Freq: Status: Active Protocol: Activity Type Activity Date Activity User E-sign Co-sign Detail Recorded Client Recorded Date Recorded By Document 08/26/24 15:59 [id number] 08/26/24 15:59 KW Document 08/27/24 15:28 KW [id number] 08/27/24 15:40 KW Document 08/29/24 08:41 KW [id number] 08/29/24 08:49 KW Document 09/02/24 14:44 KW [id number] 09/02/24 14:45 KW Document 09/05/24 11:58 RB [id number] 09/05/24 12:01 RB Document 09/09/24 15:17 JF 0000 09/09/24 15:17 JF Document 09/16/24 10:51 ML [id number] 09/16/24 10:52 ML 08/26/24 08/27/24 08/29/24 15:59 15:28 08:41 Wound Care Center Nurse 3 #1,.L knee -Ulcer Cleansing Soap and Water Soap and Water -Foul Odor after Cleansing No No -Negative Pressure Wound Therapy Start Continue -Setting (mmHg) 125 125 -Negative Pressure is Continuous Continuous -Regranex (If Applicable) -Other Dressing 1/4 iodoform from pt with santyl to large incision -Primary Dressing Covered/Secured with Dry Gauze & Roll Gauze, Secured with Tape -NPWT Application Charge NPWT > 50 sq cm NPWT > 50 sq cm ($) ($) Left -Compression Wrap Randy Wrap Randy Wrap Randy Wrap -Other Treatment Response Vital Signs Temperature (97.8 F-99.1 F) 96.5 F L 96.2 F L Temperature Source Temporal Temporal Pulse Rate (60-100) 64 72 Pulse Location Monitor Monitor Respiratory Rate (12-18) 18 18 Respiratory rate source Observation Observation Oxygen Delivery Method Room Air Room Air Blood Pressure (90/60-120/80) 110/75 101/82 H Blood Pressure Mean 86 88 Source Monitor Monitor Position Sitting Sitting Blood Pressure Location Right Arm Left Arm Pain Scale: 0-10 Numeric Is Patient Pain Free? Yes Yes Yes WC - Visit Discharge Discharge Condition Stable Stable Ambulatory Status Wheelchair Transportation Private Auto Private Auto Accompanied by Medication Reconcilliation completed & No No provided to patient/care provider Clinical Summary of Care Provided Yes Yes 09/02/24 09/05/24 09/09/24 14:44 11:58 15:17 Wound Care Center Nurse 3 #1,.L knee -Ulcer Cleansing Wound Cleanser Rinsed/ Irrigated with Saline -Foul Odor after Cleansing No -Negative Pressure Wound Therapy Continue Continue Continue -Setting (mmHg) 125 125 125 -Negative Pressure is Continuous Continuous Continuous -Regranex (If Applicable) Continue -Other Dressing -Primary Dressing Covered/Secured with -NPWT Application Charge NPWT & NPWT </= 50 sq NPWT & Debridement (nc cm ($) Debridement (nc ) ) Left -Compression Wrap Randy Wrap -Other randy ABD under tubing Treatment Response Procedure Tolerated Well Vital Signs Temperature (97.8 F-99.1 F) 97.3 F L Temperature Source Temporal Pulse Rate (60-100) 74 Pulse Location Monitor Respiratory Rate (12-18) 18 Respiratory rate source Observation Oxygen Delivery Method Blood Pressure (90/60-120/80) 137/50 H Blood Pressure Mean 79 Source Monitor Position Sitting Blood Pressure Location Left Arm Pain Scale: 0-10 Numeric Is Patient Pain Free? Yes Yes Yes WC - Visit Discharge Discharge Condition Stable Stable Stable Ambulatory Status Ambulatory, Ambulatory, Ambulatory, Walker Walker Walker Transportation Private Auto Private Auto Private Auto Accompanied by Medication Reconcilliation completed & No No Yes provided to patient/care provider Clinical Summary of Care Provided Yes Yes Yes 09/16/24 10:51 Wound Care Center Nurse 3 #1,.L knee -Ulcer Cleansing Rinsed/ Irrigated with Saline -Foul Odor after Cleansing -Negative Pressure Wound Therapy Continue -Setting (mmHg) 125 -Negative Pressure is Continuous -Regranex (If Applicable) -Other Dressing -Primary Dressing Covered/Secured with -NPWT Application Charge NPWT & Debridement (nc ) Left -Compression Wrap -Other Treatment Response Vital Signs Temperature (97.8 F-99.1 F) Temperature Source Pulse Rate (60-100) Pulse Location Respiratory Rate (12-18) Respiratory rate source Oxygen Delivery Method Blood Pressure (90/60-120/80) Blood Pressure Mean Source Position Blood Pressure Location Pain Scale: 0-10 Numeric Is Patient Pain Free? Yes WC - Visit Discharge Discharge Condition Ambulatory Status Transportation Accompanied by Medication Reconcilliation completed & provided to patient/care provider Clinical Summary of Care Provided Charges/Coding Procedures Integumentary 111xxx-113xx: 57324 Trinidad subq tissue 20 sq cm/< Add On Codes: 67736 Trinidad subq tissue add-on Multi Select Codes Integumentary Integumentary CPT Codes: 63317 Trinidad subq tissue 20 sq cm/< Assessment/Plan Assessment/Plan (1) Dehiscence of incision: CODE(S): T81.31XA - Disruption of external operation (surgical) wound, not elsewhere classified, initial encounter QUALIFIERS: Encounter type: subsequent encounter Qualified Code(s): T81.31XD - Disruption of external operation (surgical) wound, not elsewhere classified, subsequent encounter (2) Gangrene associated with type 2 diabetes mellitus: CODE(S): E11.52 - Type 2 diabetes mellitus with diabetic peripheral angiopathy with gangrene (3) Status post revision of total replacement of left knee: CODE(S): Z96.652 - Presence of left artificial knee joint (4) Failed total left knee replacement: CODE(S): T84.093A - Other mechanical complication of internal left knee prosthesis, initial encounter QUALIFIERS: Encounter type: subsequent encounter Qualified Code(s): T84.093D - Other mechanical complication of internal left knee prosthesis, subsequent encounter (5) History of left knee surgery: CODE(S): Z98.890 - Other specified postprocedural states (6) Diabetes: CODE(S): E11.9 - Type 2 diabetes mellitus without complications QUALIFIERS: Diabetes mellitus type: type 2 (7) Diabetic polyneuropathy: CODE(S): E11.42 - Type 2 diabetes mellitus with diabetic polyneuropathy (8) GERD (gastroesophageal reflux disease): CODE(S): K21.9 - Gastro-esophageal reflux disease without esophagitis (9) Hyperlipemia: CODE(S): E78.5 - Hyperlipidemia, unspecified (10) Iron deficiency anemia: CODE(S): D50.9 - Iron deficiency anemia, unspecified (11) Essential (primary) hypertension: CODE(S): I10 - Essential (primary) hypertension (12) Debility: CODE(S): R53.81 - Other malaise (13) Status post total right knee replacement: CODE(S): Z96.651 - Presence of right artificial knee joint (14) Osteoarthritis: (15) History of DVT (deep vein thrombosis): CODE(S): Z86.718 - Personal history of other venous thrombosis and embolism (16) Dyslipidemia: CODE(S): E78.5 - Hyperlipidemia, unspecified (17) Hypothyroidism: CODE(S): E03.9 - Hypothyroidism, unspecified (18) Ocular myasthenia gravis: CODE(S): G70.00 - Myasthenia gravis without (acute) exacerbation (19) History of partial thyroidectomy: CODE(S): E89.0 - Postprocedural hypothyroidism (20) History of appendectomy: CODE(S): Z90.49 - Acquired absence of other specified parts of digestive tract (21) History of hysterectomy: CODE(S): Z90.710 - Acquired absence of both cervix and uterus (22) History of cholecystectomy: CODE(S): Z90.49 - Acquired absence of other specified parts of digestive tract (23) Non-smoker: CODE(S): Z78.9 - Other specified health status (24) History of hiatal hernia: CODE(S): Z87.19 - Personal history of other diseases of the digestive system (25) History of revision of total replacement of left knee joint: CODE(S): Z96.652 - Presence of left artificial knee joint (26) History of bilateral cataract extraction: CODE(S): Z98.41 - Cataract extraction status, right eye; Z98.42 - Cataract extraction status, left eye PLAN: Plan This is a 73-year-old female who underwent the fourth revision of a left total knee replacement on June 19, 2024. She developed gangrene, necrosis, and dehiscence at the surgical site. As a result, the patient presented for definitive evaluation and management with respect to her surgical wound. A large amount of necrotic and nonviable tissue has been eliminated from the site of the patient's surgical wound since her initial presentation. Negative pressure wound therapy has been initiated by means of the Wound VAC. The patient appears to be tolerating negative pressure wound therapy without difficulty, which appears to be having a positive effect on the patient's wound healing. There are increasing areas of healthy, pink granulation tissue. The wound appears to be decreasing in size and depth. The wound VAC will be applied twice weekly, at a setting of 125 mmHg continuous negative pressure. Both the primary dehiscence and a small satellite wound are to be managed by means of negative pressure wound therapy. The patient has been encouraged to optimize her nutritional intake, as well as her diabetes management. She has been encouraged to continue taking Papa as a nutritional supplement. She is to coordinate with her primary care physician with regard to diabetes management. She is to continue on her course of doxycycline as prescribed by her other physicians. She has been encouraged to elevate her left lower extremity to prevent and minimize swelling. Elevation is to be to heart level, during both daytime and nighttime hours. Avoidance of prolonged idle sitting has been encouraged. Activity as tolerated encouraged, within the boundaries as set by her orthopedic surgeon. Tubigrip's have been dispensed for compression purposes. The patient is to follow-up in 1 week for reevaluation. The patient has been recently evaluated by her Plastic Surgeon, Dr. Urban Horotn, who is supportive of her current management. Consideration has been given to the implementation of a cellular tissue product, and insurance preauthorization will be sought. If approved, the cellular tissue product will be used in conjunction with negative pressure wound therapy. The patient is to follow-up in our clinic in 1 week. Total time: 26 minutes
[2024-09-19 10:52] VITALS: BP 151/78; PULSE 65; RESP 18; TEMP 36.4; BMI 34.1
[2024-09-23 10:52] VITALS: BP 153/77; PULSE 84; RESP 18; TEMP 36.9; BMI 34.1
--- NOTE | 2024-09-25 15:22 | HP.PCM_ITS ---
History of Present Illness Date of Service: 09/23/24 Chief Complaint: Dehiscent, necrotic surgical wound of the left knee History of Wound: This is a 73-year-old female with a history of left total knee replacement many years ago, which has required several revisions. The most recent revision was performed on June 19, 2024, at the [facility]. This was the fourth left knee revision. Prior revisions required flap reconstruction, and the Plastic Surgery service was involved in the patient's most recent surgery. Postoperatively, the patient was placed on oral doxycycline, which is expected to continue for 3 months. The patient's left lower extremity was locked in extension for 2 weeks. She is now weightbearing on the involved limb. She was admitted to the Transitional Care Unit at [facility] for several weeks postoperatively on June 27, 2024. She has returned to home, with production administrative assistant care from her . The patient developed a surgical wound dehiscence and marjorie necrosis and gangrene at the site of her incision. A wound VAC was used initially at the surgical site, but the patient had been using Xeroform more recently. The patient suffers from multiple pre-existing medical conditions, listed herein. She does not smoke. She is using Papa as a nutritional supplement. Her BMI is 34.1. 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 Dehiscence of incision History of revision of total replacement of left knee joint Wears glasses Alcohol use History of steroid therapy Bladder disease Neuropathy Back pain Dietary restriction History of pain when walking Pain Myasthenia gravis Ambulates with cane Rheumatoid arthritis Low iron History of DVT (deep vein thrombosis) Hyperlipemia Difficulty swallowing History of hiatal hernia Gastric reflux Non-smoker Shortness of breath on exertion Chronic cough PONV (postoperative nausea and vomiting) Leg cramps History of edema History of stress test Hypertension Thyroid disease Cataracts, bilateral History of UTI Arthritis Home Medications ?Medication ?Instructions ?Recorded ?Last Taken ?Type folic acid 1 mg tablet 1 mg PO DAILY supplement 10/13/13 06/06/22 History atorvastatin 10 mg tablet 5 mg PO .QOD Cholesterol 09/06/21 06/26/24 18:45 History cholecalciferol (vitamin D3) 50 50 mcg PO DAILY supplement 09/06/21 06/27/24 History mcg (2,000 unit) capsule glimepiride 4 mg tablet 4 mg PO BID blood sugar 09/06/21 06/27/24 History ascorbic acid (vitamin C) 500 mg 500 mg PO DAILY supplement 02/06/22 06/27/24 History tablet (Vitamin C) dapagliflozin propanediol 5 mg 10 mg PO DAILY blood sugar 05/25/22 06/06/22 History tablet (Farxiga) levothyroxine 125 mcg tablet 100 mcg PO DAILY thyroid 05/25/22 06/27/24 History pregabalin 75 mg capsule (Lyrica) 100 mg PO TID pain 05/25/22 06/06/22 History hydrochlorothiazide 12.5 mg tablet 12.5 mg PO DAILY Blood pressure 06/07/22 Unknown History vibegron 75 mg tablet (Gemtesa) 75 mg PO DAILY Overactive bladder 12/04/22 Unknown History metformin 500 mg tablet,extended 1,000 mg PO BID Diabetes 06/27/24 06/27/24 05:30 History release 24 hr polysaccharide iron complex 150 mg 65 mg PO QODAY Supplement 06/27/24 Unknown History iron capsule (Ferrex) losartan 100 mg tablet 100 mg PO DAILY bp 30 days #30 tabs 07/15/24 Unknown Rx oxycodone 5 mg tablet 5 - 10 mg (1 - 2 x 5 mg) PO Q4H 07/15/24 Unknown Rx PRN PRN Pain Score 4-10 7 days #84 tabs potassium chloride 20 mEq 20 meq PO DAILYCM supplement 30 07/15/24 Unknown Rx tablet,extended release(part/cryst) days #30 tabs arginine 7 gram-glutam 7 1 packet PO DAILY supplement 09/24/24 Unknown History gram-CaHMB 1.5 [id number] oral pwd pkt (Papa (with collagen)) Allergy/AdvReac Type Severity Reaction Status Date / Time latex Allergy Severe Other Verified 09/23/24 16:23 shellfish derived Allergy Severe PASSED Verified 09/23/24 16:23 OUT, DIARRHEA adhesive Allergy Mild Rash Verified 09/23/24 16:23 levofloxacin AdvReac Intermediate WEAK, Verified 09/23/24 16:23 NAUSEA povidone AdvReac Mild Hives Verified 09/23/24 16:23 Surgical History History of bilateral cataract extraction History of colonoscopy S/P insertion of spinal cord stimulator History of partial thyroidectomy History of appendectomy History of left knee surgery History of hysterectomy History of cholecystectomy Social History household members: spouse Smoking Status: Never smoker Electronic Cigarette Use: not used second hand exposure: No alcohol intake: current alcohol intake frequency: a few times a month Alcohol type: wine substance use type: does not use Vital Signs Vital Signs Vital Signs: Weight Weight: 180 lb 13.313 oz Body Mass Index (BMI) 34.1 Physical Exam Const alert, oriented x3, no apparent distress, no limitations, healthy appearing and well nourished General Appearance: cooperative, comfortable, well kempt and well developed Orientation / Consciousness: awake, oriented to person, oriented to place and oriented to time Exam Limitations: no limitations HEENT normocephalic, head/scalp atraumatic and hearing grossly normal bilaterally Head and Scalp: normal to inspection, normocephalic and atraumatic Face and Sinus: normal facial exam Nose: external nose normal External Ear: external ears normal Eyes PERRL and EOMs intact bilaterally General Eye: normal appearance of both eyes Neck full ROM Resp normal respiratory effort, normal air movement, no retractions and no use of accessory muscles Effort and Inspection: able to speak in complete sentences Extremity no calf tenderness General Extremity: Negative for clubbing or cyanosis Skin Wound Narrative: The dehiscent longitudinal incision is noted overlying the left knee. The dehiscence extends through all layers and into the subcutaneous tissues. The dry, necrotic eschar, which have been noted at the patient's initial visit, is no longer present. There is no odor or drainage. There is no sign of infection or cellulitis. Dimensions are documented elsewhere. The size and depth of the wound appears to be diminishing, and dimensions are documented elsewhere. The preponderance of the wound demonstrates healthy, pink granulation tissue, which continues to increase. The margins of the wound appear well beveled, with evidence of peripheral epithelialization. A small portion of the wound extends down to the underlying fascia, though the presence of the underlying fascia continues to diminish. Approximately 1 cm superior to the large wound at the knee is a very small satellite wound, which is clean and healthy, with active granulation tissue. This satellite wound continues to diminish in size, and is nearly healed. Hair: normal Neuro oriented x3, CN's II-XII intact bilaterally, moves all extremities, no focal motor deficits and no sensory deficits noted Sensorium / Orientation: awake, alert, oriented to person, oriented to place and oriented to time Cranial Nerves: CN normal except as noted Speech: speech normal Psych mental status grossly normal Appearance: grossly normal and appropriate Attitude: calm Activity / Motor Behavior: appropriate eye contact Speech: normal speech Mood & Affect: euthymic mood Thought Process: normal thought process Thought Content: normal thought content Attention / Concentration: attention grossly intact Debridement Note Debridement Note Wound debrided: Dehiscent left knee incision with bioburden and nonviable tissue Laterality: Left Type of Debridement: Excisional debridement Anesthesia Used: 5% Lidocaine Gel Depth: Down to and including healthy tissue and in the subcutaneous layer Percentage of wound debrided: 100 Instrument Used: 3mm curette Tissue Removed: Bioburden and nonviable tissue Severity: Fat Layer Exposed Amount of bleeding with debridement: Mild Bleeding Controlled with: Compression and gauze Patient tolerated procedure: Patient tolerated procedure well Post-Debridement Measurements and Additional Note: Post-Debridement Measurements/Treatment - Nurse 1 - General Ulcer Assessment Start: 08/26/24 14:29 Freq: Status: Active Protocol: KENNY Activity Type Activity Date Activity User E-sign Co-sign Detail Recorded Client Recorded Date Recorded By Document 08/26/24 14:30 KW [id number] 08/26/24 14:38 KW Document 08/27/24 15:28 KW [id number] 08/27/24 15:40 KW Document 08/29/24 08:41 KW [id number] 08/29/24 08:49 KW Document 09/02/24 13:45 KW [id number] 09/02/24 14:01 KW Document 09/05/24 11:58 RB [id number] 09/05/24 12:01 RB Document 09/09/24 14:10 RB [id number] 09/09/24 14:17 RB Document 09/16/24 10:21 RB [id number] 09/16/24 10:23 RB 08/26/24 08/27/24 08/29/24 14:30 15:28 08:41 - Today's Visit Information Type of service Follow-up Visit Nurse-only Nurse-only (Physician/GRAND [employer]Y DEPUTY SHERIFF Visit Visit ) Arrival Mode Wheelchair Wheelchair Wheelchair Transfer Assistance Accompanied by Patient Identification Verified (Name & Yes Yes Yes ) Patient Requires Transmission-Based Precautions Safety Precautions Height and Weight Body Mass Index (BMI) 34.1 34.1 34.1 BMI Classification Obese Obese Obese Vital Signs Temperature (97.8 F-99.1 F) 96.9 F L 96.5 F L 96.2 F L Temperature Source Temporal Temporal Temporal Pulse Rate (60-100) 71 64 72 Pulse Location Monitor Monitor Monitor Respiratory Rate (12-18) 18 18 18 Respiratory rate source Observation Observation Observation Oxygen Delivery Method Room Air Room Air Room Air Blood Pressure (90/60-120/80) 128/47 H 110/75 101/82 H Blood Pressure Mean 74 86 88 Source Monitor Monitor Monitor Position Semi-Fowlers Sitting Sitting Blood Pressure Location Left Arm Right Arm Left Arm History Since Last Visit- (Skip if this is Patient's initial visit) Have you changed medications since your No No No last visit? Any new allergies or adverse reactions No No No Had a fall/change in ADL's that may No No No increase risk of falls Signs or symptoms of abuse and/or No No No neglect since last visit Have you been in the hospital since your No No No last visit? Has dressing in place as prescribed Yes Yes Yes Has compression in place as prescribed Yes Yes Yes Has offloadiing in place as prescribed Yes Yes Yes Experienced any changes in pain level or No No No management Left Footwear Regular Shoe Regular Shoe Regular Shoe Right Footwear Regular Shoe Regular Shoe Regular Shoe Pain Scale: 0-10 Numeric Is Patient Pain Free? Yes Yes Yes 09/02/24 09/05/24 09/09/24 13:45 11:58 14:10 WC - Today's Visit Information Type of service Follow-up Visit Nurse-only Follow-up Visit (Physician/[employer] DEPUTY SHERIFF Visit (Physician/[employer]Y DEPUTY SHERIFF ) ) Arrival Mode Ambulatory, Ambulatory Ambulatory Walker Transfer Assistance None None Accompanied by Patient Identification Verified (Name & Yes Yes Yes ) Patient Requires Transmission-Based No Yes Precautions Safety Precautions NA Height and Weight Body Mass Index (BMI) 34.1 34.1 34.1 BMI Classification Obese Obese Obese Vital Signs Temperature (97.8 F-99.1 F) 98.2 F 97.3 F L 97 F L Temperature Source Temporal Temporal Temporal Pulse Rate (60-100) 62 74 61 Pulse Location Monitor Monitor Monitor Respiratory Rate (12-18) 18 18 18 Respiratory rate source Observation Observation Observation Oxygen Delivery Method Room Air Blood Pressure (90/60-120/80) 128/49 H 137/50 H 142/76 H Blood Pressure Mean 75 79 98 Source Monitor Monitor Monitor Position Semi-Fowlers Sitting Semi-Fowlers Blood Pressure Location Right Arm Left Arm Left Arm History Since Last Visit- (Skip if this is Patient's initial visit) Have you changed medications since your No No No last visit? Any new allergies or adverse reactions No No No Had a fall/change in ADL's that may No No No increase risk of falls Signs or symptoms of abuse and/or No No No neglect since last visit Have you been in the hospital since your No No No last visit? Has dressing in place as prescribed Yes Yes Yes Has compression in place as prescribed Yes Yes No Has offloadiing in place as prescribed N/A No No Experienced any changes in pain level or No No No management Left Footwear Regular Shoe Right Footwear Regular Shoe Pain Scale: 0-10 Numeric Is Patient Pain Free? Yes Yes Yes 09/16/24 10:21 WC - Today's Visit Information Type of service Follow-up Visit (Physician/[employer] DEPUTY SHERIFF ) Arrival Mode Ambulatory Transfer Assistance None Accompanied by Patient Identification Verified (Name & Yes ) Patient Requires Transmission-Based No Precautions Safety Precautions Height and Weight Body Mass Index (BMI) 34.1 BMI Classification Obese Vital Signs Temperature (97.8 F-99.1 F) 97.4 F L Temperature Source Temporal Pulse Rate (60-100) 62 Pulse Location Monitor Respiratory Rate (12-18) 18 Respiratory rate source Observation Oxygen Delivery Method Blood Pressure (90/60-120/80) 151/55 H Blood Pressure Mean 87 Source Monitor Position Semi-Fowlers Blood Pressure Location Left Arm History Since Last Visit- (Skip if this is Patient's initial visit) Have you changed medications since your No last visit? Any new allergies or adverse reactions No Had a fall/change in ADL's that may No increase risk of falls Signs or symptoms of abuse and/or No neglect since last visit Have you been in the hospital since your No last visit? Has dressing in place as prescribed Yes Has compression in place as prescribed No Has offloadiing in place as prescribed No Experienced any changes in pain level or No management Left Footwear Right Footwear Pain Scale: 0-10 Numeric Is Patient Pain Free? Yes WC - Nurse 1 - General Ulcer Measurement Start: 08/26/24 14:29 Freq: Status: Active Protocol: Activity Type Activity Date Activity User E-sign Co-sign Detail Recorded Client Recorded Date Recorded By Document 08/26/24 14:30 KW [id number] 08/26/24 14:38 KW Document 09/02/24 13:45 KW [id number] 09/02/24 14:01 KW Document 09/05/24 11:58 RB [id number] 09/05/24 12:01 RB Document 09/09/24 14:10 RB [id number] 09/09/24 14:17 RB Document 09/16/24 10:21 RB [id number] 09/16/24 10:23 RB 08/26/24 09/02/24 09/05/24 14:30 13:45 11:58 Wound Center Nurse 1 #1,.L knee -Combined with other wound No -Current Size (cm) - Length 12 11 -Current Size (cm) - Width 2.6 2.2 -Current Size (cm) - Depth 0.7 0.3 -Total Square Cm 31.2 24.2 -Date of Last Picture (Recall this 09/02/24 field) -Epithelialization Medium 34-66% -Tunneling -Undermining/Tunneling -Undermining/Tunneling Starts (O'clock ) -Undermining/Tunneling Ends (O'clock) -Maximum Distance (cm) -Circular Undermining -Exudate Amt Small Medium -Exudate Type Serosanguineous Serosanguineous -Wound Margin Distinct, Distinct, Outline Outline Attached Attached -Granulation Amt Large (67-100%) Medium (34-66%) Large (67-100%) -Granulation Quality [place]ham,Red Red [place] -Slough/Fibrin -Necrosis Amt Medium (34-66%) Medium (34-66%) Medium (34-66%) -Necrotic Tissue Type Adherent Slough Adherent Slough Adherent Slough -Structure Exposed N/A -Texture (Anali-wound Skin Appearance) Assessed Assessed Assessed -Moisture (Anali-wound Skin Appearance) Assessed Assessed Assessed -Color (Anali-wound Skin Appearance) Assessed Assessed Assessed -Temperature (Anali-wound Skin No Abnormality No Abnormality Appearance) (Pt Warm) (Pt Warm) -Tenderness on Palpation (Anali-wound No Skin Appearance) -Ulcer Cleansing Soap and Water Soap and Water Rinsed/ Irrigated with Saline -Foul Odor after Cleansing No No -Anesthetic Used 4% Lidocaine 4% Lidocaine Solution Solution Lower Limb Edema Present Left Calf (cm) Left Ankle (cm) 09/09/24 09/16/24 14:10 10:21 Wound Center Nurse 1 #1,.L knee -Combined with other wound No No -Current Size (cm) - Length 9.2 11.4 -Current Size (cm) - Width 2.1 2.4 -Current Size (cm) - Depth 0.8 0.5 -Total Square Cm 19.32 27.36 -Date of Last Picture (Recall this field) -Epithelialization -Tunneling No No -Undermining/Tunneling Yes No -Undermining/Tunneling Starts (O'clock 5 ) -Undermining/Tunneling Ends (O'clock) 6 -Maximum Distance (cm) 0.4 -Circular Undermining No No -Exudate Amt Large Medium -Exudate Type Serosanguineous Serosanguineous -Wound Margin Distinct, Distinct, Outline Outline Attached Attached -Granulation Amt Medium (34-66%) Medium (34-66%) -Granulation Quality [place]ham -Slough/Fibrin Yes Yes -Necrosis Amt Medium (34-66%) Medium (34-66%) -Necrotic Tissue Type Adherent Slough Adherent Slough -Structure Exposed N/A N/A -Texture (Anali-wound Skin Appearance) Assessed Assessed, Scarring -Moisture (Anali-wound Skin Appearance) Assessed Assessed -Color (Anali-wound Skin Appearance) Assessed Assessed -Temperature (Anali-wound Skin No Abnormality No Abnormality Appearance) (Pt Warm) (Pt Warm) -Tenderness on Palpation (Anali-wound No No Skin Appearance) -Ulcer Cleansing Wound Cleanser Wound Cleanser -Foul Odor after Cleansing No No -Anesthetic Used 5% Lidocaine 4% Lidocaine Gel Solution Lower Limb Edema Present Yes Left Calf (cm) 41.4 Left Ankle (cm) 26.4 WC - Nurse 2 - General Ulcer CM Notes Start: 08/26/24 14:29 Freq: Status: Active Protocol: Activity Type Activity Date Activity User E-sign Co-sign Detail Recorded Client Recorded Date Recorded By Document 08/26/24 14:52 DS [id number] 08/26/24 14:59 DS Document 09/02/24 14:31 DS [id number] 09/02/24 14:38 DS Document 09/09/24 14:40 DS [id number] 09/09/24 14:44 DS Document 09/16/24 10:33 DS [id number] 09/16/24 10:40 DS 08/26/24 09/02/24 09/09/24 14:52 14:31 14:40 Wound Center Nurse 2 #1,.L knee -Time 14:47 14:30 14:41 -Correct Patient Yes Yes Yes -Correct Side, Site, Position Yes Yes Yes -Correct Procedure Yes Yes Yes -Procedure Performed Yes Yes Yes -Type of Procedure Debridement Debridement Debridement -Clinical Debridement Subcutaneous Subcutaneous Subcutaneous -Tissue Removed Subcutaneous Subcutaneous Subcutaneous -Post Debridement (cm) - Length 13.0 11.8 11.4 -Post Debridement (cm) - Width 2.5 2.5 2.1 -Post Debridement (cm) - Depth 1.0 0.8 0.5 -Total Square (Post) (cm) 32.50 29.50 23.94 -Area of Debridement (cm) - Length 13.0 11.8 11.4 -Area of Debridement (cm) - Width 2.5 2.5 2.1 -Total Square (Area) (cm) 32.50 29.50 23.94 -Tunneling No No No -Undermining/Tunneling Yes No No -Undermining/Tunneling Starts (O'clock 12 ) -Undermining/Tunneling Ends (O'clock) 6 -Maximum Distance (cm) 0.3 -Circular Undermining No No No -Wound/Ulcer Outcome Not Healed Not Healed Not Healed -Ulcer Cleansing Rinsed/ Rinsed/ Rinsed/ Irrigated with Irrigated with Irrigated with Saline Saline Saline -Bioengineered Tissue No No No -Bleeding Controlled with Pressure Pressure -Treatment Response Procedure Procedure Tolerated Well Tolerated Well -Debridement - Subq, 1st 20sq cm Yes Yes Yes -Debridement, SubQ, ea addt'l 20sq cm 1 1 1 or part thereof -Wound Comment(s) Pain Scale: 0-10 Numeric Is Patient Pain Free? Yes Yes Yes 09/16/24 10:33 Wound Center Nurse 2 #1,.L knee -Time 10:33 -Correct Patient Yes -Correct Side, Site, Position Yes -Correct Procedure Yes -Procedure Performed Yes -Type of Procedure Debridement -Clinical Debridement Subcutaneous -Tissue Removed Subcutaneous -Post Debridement (cm) - Length 11.3 -Post Debridement (cm) - Width 2.5 -Post Debridement (cm) - Depth 0.8 -Total Square (Post) (cm) 28.25 -Area of Debridement (cm) - Length 11.3 -Area of Debridement (cm) - Width 2.5 -Total Square (Area) (cm) 28.25 -Tunneling No -Undermining/Tunneling No -Undermining/Tunneling Starts (O'clock ) -Undermining/Tunneling Ends (O'clock) -Maximum Distance (cm) -Circular Undermining No -Wound/Ulcer Outcome Not Healed -Ulcer Cleansing Rinsed/ Irrigated with Saline -Bioengineered Tissue No -Bleeding Controlled with Pressure -Treatment Response Procedure Tolerated Well -Debridement - Subq, 1st 20sq cm Yes -Debridement, SubQ, ea addt'l 20sq cm 1 or part thereof -Wound Comment(s) ceticaine spray used. Pain Scale: 0-10 Numeric Is Patient Pain Free? Yes WC - Nurse 3 - General Ulcer D/C NN Start: 08/26/24 14:29 Freq: Status: Active Protocol: Activity Type Activity Date Activity User E-sign Co-sign Detail Recorded Client Recorded Date Recorded By Document 08/26/24 15:59 KW [id number] 08/26/24 15:59 KW Document 08/27/24 15:28 KW [id number] 08/27/24 15:40 KW Document 08/29/24 08:41 KW [id number] 08/29/24 08:49 KW Document 09/02/24 14:44 KW [id number] 09/02/24 14:45 KW Document 09/05/24 11:58 RB [id number] 09/05/24 12:01 RB Document 09/09/24 15:17 JF 0000 09/09/24 15:17 JF Document 09/16/24 10:51 ML [id number] 09/16/24 10:52 ML 08/26/24 08/27/24 08/29/24 15:59 15:28 08:41 Wound Care Center Nurse 3 #1,.L knee -Ulcer Cleansing Soap and Water Soap and Water -Foul Odor after Cleansing No No -Negative Pressure Wound Therapy Start Continue -Setting (mmHg) 125 125 -Negative Pressure is Continuous Continuous -Regranex (If Applicable) -Other Dressing 1/4 iodoform from pt with santyl to large incision -Primary Dressing Covered/Secured with Dry Gauze & Roll Gauze, Secured with Tape -NPWT Application Charge NPWT > 50 sq cm NPWT > 50 sq cm ($) ($) Left -Compression Wrap Randy Wrap Randy Wrap Randy Wrap -Other Treatment Response Vital Signs Temperature (97.8 F-99.1 F) 96.5 F L 96.2 F L Temperature Source Temporal Temporal Pulse Rate (60-100) 64 72 Pulse Location Monitor Monitor Respiratory Rate (12-18) 18 18 Respiratory rate source Observation Observation Oxygen Delivery Method Room Air Room Air Blood Pressure (90/60-120/80) 110/75 101/82 H Blood Pressure Mean 86 88 Source Monitor Monitor Position Sitting Sitting Blood Pressure Location Right Arm Left Arm Pain Scale: 0-10 Numeric Is Patient Pain Free? Yes Yes Yes WC - Visit Discharge Discharge Condition Stable Stable Ambulatory Status Wheelchair Transportation Private Auto Private Auto Accompanied by Medication Reconcilliation completed & No No provided to patient/care provider Clinical Summary of Care Provided Yes Yes 09/02/24 09/05/24 09/09/24 14:44 11:58 15:17 Wound Care Center Nurse 3 #1,.L knee -Ulcer Cleansing Wound Cleanser Rinsed/ Irrigated with Saline -Foul Odor after Cleansing No -Negative Pressure Wound Therapy Continue Continue Continue -Setting (mmHg) 125 125 125 -Negative Pressure is Continuous Continuous Continuous -Regranex (If Applicable) Continue -Other Dressing -Primary Dressing Covered/Secured with -NPWT Application Charge NPWT & NPWT </= 50 sq NPWT & Debridement (nc cm ($) Debridement (nc ) ) Left -Compression Wrap Randy Wrap -Other randy ABD under tubing Treatment Response Procedure Tolerated Well Vital Signs Temperature (97.8 F-99.1 F) 97.3 F L Temperature Source Temporal Pulse Rate (60-100) 74 Pulse Location Monitor Respiratory Rate (12-18) 18 Respiratory rate source Observation Oxygen Delivery Method Blood Pressure (90/60-120/80) 137/50 H Blood Pressure Mean 79 Source Monitor Position Sitting Blood Pressure Location Left Arm Pain Scale: 0-10 Numeric Is Patient Pain Free? Yes Yes Yes WC - Visit Discharge Discharge Condition Stable Stable Stable Ambulatory Status Ambulatory, Ambulatory, Ambulatory, Walker Walker Walker Transportation Private Auto Private Auto Private Auto Accompanied by Medication Reconcilliation completed & No No Yes provided to patient/care provider Clinical Summary of Care Provided Yes Yes Yes 09/16/24 10:51 Wound Care Center Nurse 3 #1,.L knee -Ulcer Cleansing Rinsed/ Irrigated with Saline -Foul Odor after Cleansing -Negative Pressure Wound Therapy Continue -Setting (mmHg) 125 -Negative Pressure is Continuous -Regranex (If Applicable) -Other Dressing -Primary Dressing Covered/Secured with -NPWT Application Charge NPWT & Debridement (nc ) Left -Compression Wrap -Other Treatment Response Vital Signs Temperature (97.8 F-99.1 F) Temperature Source Pulse Rate (60-100) Pulse Location Respiratory Rate (12-18) Respiratory rate source Oxygen Delivery Method Blood Pressure (90/60-120/80) Blood Pressure Mean Source Position Blood Pressure Location Pain Scale: 0-10 Numeric Is Patient Pain Free? Yes WC - Visit Discharge Discharge Condition Ambulatory Status Transportation Accompanied by Medication Reconcilliation completed & provided to patient/care provider Clinical Summary of Care Provided Charges/Coding Procedures Integumentary [id number]: [id number] Trinidad subq tissue 20 sq cm/< Add On Codes: 26861 Trinidad subq tissue add-on Assessment/Plan Assessment/Plan (1) Non-pressure chronic ulcer of left thigh with fat layer exposed: CODE(S): L97.122 - Non-pressure chronic ulcer of left thigh with fat layer exposed (2) Dehiscence of incision: CODE(S): T81.31XA - Disruption of external operation (surgical) wound, not elsewhere classified, initial encounter QUALIFIERS: Encounter type: subsequent encounter Qualified Code(s): T81.31XD - Disruption of external operation (surgical) wound, not elsewhere classified, subsequent encounter (3) Gangrene associated with type 2 diabetes mellitus: CODE(S): E11.52 - Type 2 diabetes mellitus with diabetic peripheral angiopathy with gangrene (4) Status post revision of total replacement of left knee: CODE(S): Z96.652 - Presence of left artificial knee joint (5) Failed total left knee replacement: CODE(S): T84.093A - Other mechanical complication of internal left knee prosthesis, initial encounter QUALIFIERS: Encounter type: subsequent encounter Qualified Code(s): T84.093D - Other mechanical complication of internal left knee prosthesis, subsequent encounter (6) History of left knee surgery: CODE(S): Z98.890 - Other specified postprocedural states (7) Diabetes: CODE(S): E11.9 - Type 2 diabetes mellitus without complications QUALIFIERS: Diabetes mellitus type: type 2 (8) Diabetic polyneuropathy: CODE(S): E11.42 - Type 2 diabetes mellitus with diabetic polyneuropathy (9) GERD (gastroesophageal reflux disease): CODE(S): K21.9 - Gastro-esophageal reflux disease without esophagitis (10) Hyperlipemia: CODE(S): E78.5 - Hyperlipidemia, unspecified (11) Iron deficiency anemia: CODE(S): D50.9 - Iron deficiency anemia, unspecified (12) Essential (primary) hypertension: CODE(S): I10 - Essential (primary) hypertension (13) Debility: CODE(S): R53.81 - Other malaise (14) Status post total right knee replacement: CODE(S): Z96.651 - Presence of right artificial knee joint (15) Osteoarthritis: (16) History of DVT (deep vein thrombosis): CODE(S): Z86.718 - Personal history of other venous thrombosis and embolism (17) Dyslipidemia: CODE(S): E78.5 - Hyperlipidemia, unspecified (18) Hypothyroidism: CODE(S): E03.9 - Hypothyroidism, unspecified (19) Ocular myasthenia gravis: CODE(S): G70.00 - Myasthenia gravis without (acute) exacerbation (20) History of partial thyroidectomy: CODE(S): E89.0 - Postprocedural hypothyroidism (21) History of appendectomy: CODE(S): Z90.49 - Acquired absence of other specified parts of digestive tract (22) History of hysterectomy: CODE(S): Z90.710 - Acquired absence of both cervix and uterus (23) History of cholecystectomy: CODE(S): Z90.49 - Acquired absence of other specified parts of digestive tract (24) Non-smoker: CODE(S): Z78.9 - Other specified health status (25) History of hiatal hernia: CODE(S): Z87.19 - Personal history of other diseases of the digestive system (26) History of revision of total replacement of left knee joint: CODE(S): Z96.652 - Presence of left artificial knee joint (27) History of bilateral cataract extraction: CODE(S): Z98.41 - Cataract extraction status, right eye; Z98.42 - Cataract extraction status, left eye PLAN: Plan This is a 73-year-old female who underwent the fourth revision of a left total knee replacement on June 19, 2024. She developed gangrene, necrosis, and dehiscence at the surgical site. As a result, the patient presented for definitive evaluation and management with respect to her surgical wound. A large amount of necrotic and nonviable tissue has been eliminated from the site of the patient's surgical wound since her initial presentation. Negative pressure wound therapy has been initiated by means of the Wound VAC. The patient appears to be tolerating negative pressure wound therapy without difficulty, which appears to be having a positive effect on the patient's wound healing. There are increasing areas of healthy, pink granulation tissue. The wound appears to be decreasing in size and depth. The wound VAC will be applied twice weekly, at a setting of 125 mmHg continuous negative pressure. Both the primary dehiscence and a small satellite wound are to be managed by means of negative pressure wound therapy. The patient has been encouraged to optimize her nutritional intake, as well as her diabetes management. She has been encouraged to continue taking Papa as a nutritional supplement. She is to coordinate with her primary care physician with regard to diabetes management. She is to continue on her course of doxycycline as prescribed by her other physicians. She has been encouraged to elevate her left lower extremity to prevent and minimize swelling. Elevation is to be to heart level, during both daytime and nighttime hours. Avoidance of prolonged idle sitting has been encouraged. Activity as tolerated encouraged, within the boundaries as set by her orthopedic surgeon. Tubigrip's have been dispensed for compression purposes. The patient is to follow-up in 1 week for reevaluation. The patient has been recently evaluated by her Plastic Surgeon, Dr. Urban Horton, who is supportive of her current management. She is scheduled to see her orthopedic surgeon later this week. Consideration has been given to the implementation of a cellular tissue product, and insurance preauthorization will be sought. If approved, the cellular tissue product will be used in conjunction with negative pressure wound therapy. The patient is to follow-up in our clinic in 1 week. Total time: 25 minutes
== END 2024-09-23 23:59 | disposition home or self-care (01) ==
LOC: WC 10:15
PROVIDERS: PCP Internal Medicine; Visit Provider Surgery
DX: T81.31XD Disruption of external operation (surgical) wound, not elsewhere classified, subsequent encounter (principal); E11.52 Type 2 diabetes mellitus with diabetic peripheral angiopathy with gangrene; E11.622 Type 2 diabetes mellitus with other skin ulcer; L97.122 Non-pressure chronic ulcer of left thigh with fat layer exposed; G70.00 Myasthenia gravis without (acute) exacerbation; E11.42 Type 2 diabetes mellitus with diabetic polyneuropathy; K21.9 Gastro-esophageal reflux disease without esophagitis; E78.5 Hyperlipidemia, unspecified; Z79.84 Long term (current) use of oral hypoglycemic drugs; M19.90 Unspecified osteoarthritis, unspecified site; Z90.710 Acquired absence of both cervix and uterus; R53.81 Other malaise; Z79.890 Hormone replacement therapy; E89.0 Postprocedural hypothyroidism; Z86.718 Personal history of other venous thrombosis and embolism; I10 Essential (primary) hypertension; D50.9 Iron deficiency anemia, unspecified; T84.093D Other mechanical complication of internal left knee prosthesis, subsequent encounter; Z96.653 Presence of artificial knee joint, bilateral; Z90.49 Acquired absence of other specified parts of digestive tract; Z87.19 Personal history of other diseases of the digestive system; Z98.41 Cataract extraction status, right eye
CPT/HCPCS: 11042; 11045; 97605; 97606

== ENCOUNTER 2024-09-23 16:22 | Inpatient (IN) | payer MEDICARE, SELFPAY ==
[2024-09-23] VITALS (7 sets, daily range): BP systolic 134–156; BP diastolic 52–74; PULSE 70–91; RESP 16–18; TEMP 36.4–36.9; O2SAT 94–99; BMI 27.8; BMI 35.2
--- NOTE | 2024-09-23 16:51 | ED.RN ---
PT HAD A LEFT KNEE REPLACEMENT ON 06/19/24 AND THE SURGICAL WOUND BECAME INFECTED. SHE HAS BEEN DEALING WITH A WOUND VAC AND WOUND NURSE SINCE. EXPRESSES CONCERNS OF HER BS LEVELS BEING VERY LOW IN THE 40'S. PT DENIES BEING SYMPTOMATIC, PTS STATES SHE HAS BEEN MORE SLEEPY. PT WENT TO THE WOUND NURSE TODAY AND HER LEFT KNEE WAS WRAPPED. THE REDNESS APPEARED ON THE LEG LATER IN THE DAY, HOT TO TOUCH.
--- NOTE | 2024-09-23 17:55 | EX.ED.DYSGE1 ---
HPI History of Present Illness Chief Complaint: Cellulitis Informant: patient Narrative Narrative: Patient is a 73-year-old female with history of diabetic neuropathy, DVT, hypertension, hypothyroidism and multiple left knee surgeries ultimately requiring muscle flap and skin graft that which she is then wound care for with Dr. Esquivel. She notes that she had a wound VAC change today and notes her leg looks a little red not at the wound but lower. As the days progressed she is at increased redness of her lower extremity. She is also 2 episodes of low blood sugar. EMS was called last night for blood sugar of 25 and this morning she was 35. She states she is only on metformin for blood sugar/diabetes however chart review shows she is actually also on Farxiga as well as glimepiride. She reports that she has been feeling more fatigued and said decreased oral intake over the past day or 2. She a denies any new swelling of the leg. She is on any blood thinners but previously was on Eliquis. She denies any fever or chills. Denies any nausea or vomiting. No new injury to the leg. Notes that her lower leg is mildly uncomfortable. No other complaints or concerns reported this time. Her orthopedist is Dr. De Leon through [facility]. [facility] Medical History Gangrene associated with type 2 diabetes mellitus Dehiscence of incision History of revision of total replacement of left knee joint Wears glasses Alcohol use History of steroid therapy Bladder disease Neuropathy Back pain Dietary restriction History of pain when walking Pain Myasthenia gravis Ambulates with cane Rheumatoid arthritis Low iron History of DVT (deep vein thrombosis) Hyperlipemia Difficulty swallowing History of hiatal hernia Gastric reflux Non-smoker Shortness of breath on exertion Chronic cough PONV (postoperative nausea and vomiting) Leg cramps History of edema History of stress test Hypertension Thyroid disease Cataracts, bilateral History of UTI Arthritis Home Medications ?Medication ?Instructions ?Recorded ?Last Taken ?Type folic acid 1 mg tablet 1 mg PO DAILY supplement 10/13/13 06/06/22 History atorvastatin 10 mg tablet 5 mg PO .QOD Cholesterol 09/06/21 06/26/24 18:45 History cholecalciferol (vitamin D3) 50 50 mcg PO DAILY supplement 09/06/21 06/27/24 History mcg (2,000 unit) capsule glimepiride 4 mg tablet 4 mg PO BID blood sugar 09/06/21 06/27/24 History ascorbic acid (vitamin C) 500 mg 500 mg PO DAILY supplement 02/06/22 06/27/24 History tablet (Vitamin C) dapagliflozin propanediol 5 mg 10 mg PO DAILY blood sugar 05/25/22 06/06/22 History tablet (Farxiga) levothyroxine 125 mcg tablet 100 mcg PO DAILY thyroid 05/25/22 06/27/24 History pregabalin 75 mg capsule (Lyrica) 100 mg PO TID pain 05/25/22 06/06/22 History hydrochlorothiazide 12.5 mg tablet 12.5 mg PO DAILY Blood pressure 06/07/22 Unknown History vibegron 75 mg tablet (Gemtesa) 75 mg PO DAILY Overactive bladder 12/04/22 Unknown History metformin 500 mg tablet,extended 1,000 mg PO BID Diabetes 06/27/24 06/27/24 05:30 History release 24 hr polysaccharide iron complex 150 mg 65 mg PO QODAY Supplement 06/27/24 Unknown History iron capsule (Ferrex) losartan 100 mg tablet 100 mg PO DAILY bp 30 days #30 tabs 07/15/24 Unknown Rx oxycodone 5 mg tablet 5 - 10 mg (1 - 2 x 5 mg) PO Q4H 07/15/24 Unknown Rx PRN PRN Pain Score 4-10 7 days #84 tabs potassium chloride 20 mEq 20 meq PO DAILYCM supplement 30 07/15/24 Unknown Rx tablet,extended release(part/cryst) days #30 tabs arginine 7 gram-glutam 7 1 packet PO DAILY supplement 09/24/24 Unknown History gram-CaHMB 1.5 [id number] oral pwd pkt (Papa (with collagen)) Allergy/AdvReac Type Severity Reaction Status Date / Time latex Allergy Severe Other Verified 09/23/24 16:23 shellfish derived Allergy Severe PASSED Verified 09/23/24 16:23 OUT, DIARRHEA adhesive Allergy Mild Rash Verified 09/23/24 16:23 levofloxacin AdvReac Intermediate WEAK, Verified 09/23/24 16:23 NAUSEA povidone AdvReac Mild Hives Verified 09/23/24 16:23 Surgical History History of bilateral cataract extraction History of colonoscopy S/P insertion of spinal cord stimulator History of partial thyroidectomy History of appendectomy History of left knee surgery History of hysterectomy History of cholecystectomy Social History household members: spouse Smoking Status: Never smoker Electronic Cigarette Use: not used second hand exposure: No alcohol intake: current alcohol intake frequency: a few times a month Alcohol type: wine substance use type: does not use ROS ROS ED Constitutional Constitutional ED: Reports other Details: Episodes of low blood sugar, fatigue, decreased appetite ; Denies chills or fever(s) Cardiovascular Cardiovascular: Denies chest pain Respiratory/Chest Respiratory/Chest: Denies cough Gastrointestinal Gastrointestinal: Denies abdominal pain, nausea or vomiting Musculoskeletal Musculoskeletal: Reports other Details: Left lower extremity discomfort ; Denies arthralgias or myalgias Integumentary Reports rash and other Details: Chronic wound with wound VAC to the left knee. Increased redness of the left lower leg. Neurologic Neurologic: Reports weakness; Denies paresthesias Psychiatric Psychiatric: Denies anxiety Hematologic/Lymphatic Hematologic/Lymphatic: Denies easy bleeding or easy bruising EXAM Physical Exam Const Vital Signs: 09/23/24 16:23 09/23/24 16:27 09/23/24 17:27 Temperature 98.4 F 98.4 F 98.4 F Temperature Source Oral Oral Oral Pulse Rate 91 88 74 Respiratory Rate 18 16 16 Blood Pressure 146/74 H 146/74 H 156/52 H Blood Pressure Mean 98 98 86 Pulse Ox 98 98 98 Oxygen Delivery Method Room Air Room Air Room Air 09/23/24 18:00 Temperature 98.0 F Temperature Source Oral Pulse Rate 80 Respiratory Rate 16 Blood Pressure 156/70 H Blood Pressure Mean 98 Pulse Ox 94 Oxygen Delivery Method Room Air Positive well nourished and well developed General Appearance ED: well developed HEENT Reports moist mucous membranes Neck supple Chest Wall inspection of chest normal and palpation of chest normal Cardio regular rate GI normal to inspection, nondistended, normoactive bowel sounds Extremity Extremity Narrative: Nonpitting edema of the left lower extremity compared to the right. Compartments are soft. Patient has a wound VAC over the left anterior knee. Decreased range of motion of the left knee which is chronic for patient. No pinpoint bony tenderness appreciated. Neuro oriented x3 Sensorium / Orientation: alert Motor Exam: Negative for general weakness Psych mental status grossly normal Skin Skin Narrative: Slightly flushed cheeks. Patient has subtle erythema of the left lower leg going up to approximately the mid demarco. No associated lymphangitic streaking. There is associated warmth. MDM MDM MDM Narrative Medical decision making narrative: Patient is evaluated for 1 day of increased redness and discomfort to her left lower extremity. Does have a chronic wound with a wound VAC on her left knee. In addition patient has had intermittent hypoglycemia over the past 24 hours. Differential includes cellulitis, DVT, medication reaction, hypoglycemia, SHAHLA, electrolyte normality. Patient has good distal pulses low suspicion for acute vascular compromise. Venous duplex is negative for DVT of the left lower extremity. Suspect this is cellulitis. Patient is have a mild leukocytosis of 12.3. While in the ER patient has a episode of decreased responsiveness. Blood glucose obtained and is 26. Is given orange juice, peanut butter and crackers with some improvement. She does start to improve clinically and says she is feeling better. Blood sugar goes to 69 and then 72. Patient was also found to have a pretty significant hypokalemia with potassium of 2.8. Magnesium added on which is normal at 1.8. CRP mildly elevated at 13.9. Patient will be admitted for further monitoring of her hypoglycemia as well as IV antibiotics for cellulitis of the left lower extremity. Given that she has extensive history of wound issues to the left knee will treat with vancomycin and Zosyn in the emergency room. Case discussed with hospitalist, Dr. Knight. Patient and agreeable with plan of care. Lab Data Attestation: I reviewed the patient's lab results. Labs: Laboratory Results - last 24 hr 09/23/24 09/23/24 09/23/24 17:59 18:08 19:12 WBC 12.3 H RBC 4.38 Hgb 11.7 L Hct 37.6 MCV 85.8 MCH 26.7 L MCHC 31.1 L RDW Std Deviation 50.8 H RDW Coeff of April 16.3 H Plt Count 405 MPV 10.4 Immature Gran % (Auto) 0.400 Neut % (Auto) 76.0 H Lymph % (Auto) 13.6 L Dewitt % (Auto) 7.5 Eos % (Auto) 1.9 Baso % (Auto) 0.6 Absolute Neuts (auto) 9.4 H Absolute Lymphs (auto) 1.68 Nucleated RBC % 0 ESR 12 Sodium 142 Potassium 2.8 L Chloride 109 H Carbon Dioxide 26.0 Anion Gap 7 BUN 10 Creatinine 0.71 Est GFR (MDRD) Af Amer 103 Est GFR (MDRD) Non-Af 85 BUN/Creatinine Ratio 14.1 Glucose 32 L* Calcium 9.1 Magnesium 1.8 C-React Prot Ext Range 13.90 H POC Glucose 26 L* 69 L 09/23/24 20:12 WBC RBC Hgb Hct MCV MCH MCHC RDW Std Deviation RDW Coeff of April Plt Count MPV Immature Gran % (Auto) Neut % (Auto) Lymph % (Auto) Dewitt % (Auto) Eos % (Auto) Baso % (Auto) Absolute Neuts (auto) Absolute Lymphs (auto) Nucleated RBC % ESR Sodium Potassium Chloride Carbon Dioxide Anion Gap BUN Creatinine Est GFR (MDRD) Af Amer Est GFR (MDRD) Non-Af BUN/Creatinine Ratio Glucose Calcium Magnesium C-React Prot Ext Range POC Glucose 72 L Radiography Diagnostic Testing: Clinical Impression(s) from Imaging Studies Venous Duplex 09/23/24 18:06 IMPRESSION: Normal left lower extremity duplex venous ultrasound. Electronically Signed: April Don MD at 20:07 EST Reading Location ID and State: [id number] / Tel , Service support , Discharge Plan Dx/Rx/DC Orders Clinical Impression: Hypoglycemia, Hypokalemia, Left leg cellulitis Disposition Disposition: Acute Care Hospital [facility] Discharge Date/Time: 09/23/24 22:24
[2024-09-23 18:06] LABS: Absolute Lymphocyte Count 1.68 X10^3/uL (0.83-4.51); Absolute Neutrophil Count 9.4 X10^3/uL (2.0-7.7); Basophil# 0.07 X10^3/uL; Basophil% 0.6 % (0-1); Eosinophil# 0.23 X10^3/uL; Eosinophils% 1.9 % (0-5); Hematocrit 37.6 % (37-47); Hemoglobin 11.7 g/dL (12.0-15.0); Lymphocyte # 1.68 X10^3/ul (0.83-4.51); Lymphocyte % 13.6 % (19-41); Mean Corp Hgb Conc 31.1 g/dL (32-36); Mean Corpuscular Hgb 26.7 pg (27.0-32.0); Mean Corpuscular Volume 85.8 fL (81-99); Mean Platelet Vol. 10.4 fl (6.2-12.0); Monocyte# 0.93 X10^3/uL; Monocyte% 7.5 % (0-10); NRBC Flagged by Analyzer 0 % (0-5); Neutrophil # 9.36 X10^3/uL (2.7-7.7); Platelet Count 405 K/mm3 (150-450); RBC Distribution Width CV 16.3 % (11.6-14.6); RBC Distribution Width SD 50.8 fl (35.1-43.9); Red Blood Count 4.38 M/mm3 (4.2-5.4); White Blood Count 12.3 K/mm3 (4.4-11.0)
--- NOTE | 2024-09-23 18:06 | US_ITS ---
EXAM: US DUPLEX LEFT LOWER EXTREMITY VEINS CLINICAL INDICATION: LT LEG PAIN TECHNIQUE: Real-time duplex ultrasound scan of the left lower extremity veins integrating B-mode two-dimensional vascular structure, Doppler spectral analysis, color flow Doppler imaging and compression. COMPARISON: No relevant prior studies available. FINDINGS: DEEP VEINS: Unremarkable. No DVT in the visualized common femoral, femoral, proximal deep femoral or popliteal veins. The veins demonstrate normal color flow, are normally compressible, with normal phasic flow and/or augmentation response. SUPERFICIAL VEINS: No thrombus in the visualized great saphenous vein. SOFT TISSUES: No acute findings. No popliteal cyst. US/Venous Duplex Imag/Limited/Uni IMPRESSION: Normal left lower extremity duplex venous ultrasound. Electronically Signed: April Don MD at 20:07 EST Reading Location ID and State: [id number] / Tel , Service support ,
[2024-09-23 18:17] LABS: Erythrocyte Sedimentation Rate 12 mm/hr (0-30)
[2024-09-23 18:26] LABS: Bedside Glucose 26 mg/dL (74-106)
[2024-09-23 18:28] LABS: Anion Gap 7 (5-15); BUN 10 mg/dL (7-18); BUN/Creat Ratio 14.1 RATIO (10-20); Calcium,Total 9.1 mg/dL (8.5-10.1); Chloride 109 mmol/L (98-107); Creatinine, Serum 0.71 mg/dL (0.55-1.02); EST Glomerular Filtration Rate 85 mL/min (>60); Est Glom Filt Rate - Afr Amer 103 mL/min (>60); Glucose 32 mg/dL (74-106); Potassium 2.8 mmol/L (3.5-5.1); Sodium Level 142 mmol/L (136-145)
[2024-09-23 18:54] LABS: Magnesium 1.8 mg/dL (1.6-2.6)
--- NOTE | 2024-09-23 19:42 | CM.ED ---
Social work Reason for referral: validation of AD Referral source: case find This SW identified patient's advance directives needed validated. This SW entered patient's room, introducing self and role at [facility]. Patient sitting in bed, alert and oriented, with patient's , Adan, bedside. Patient stated permission to speak with patient's in the room. Patient and patient's state official advance directives being completed with patient's being named as HCPOA. Patient believes she also has a living will. Rox Cortez, EKG TECHNICIAN, [employer]
[2024-09-23 20:30] LABS: Bedside Glucose 72 mg/dL (74-106)
--- NOTE | 2024-09-23 20:46 | PCM.HP.STD ---
HPI - General General Date of Admission: 09/23/24 Date of Service: 09/23/24 Chief Complaint: Left lower extremity swelling and redness HPI Narrative LEOBARDO VALDEZ, is a 73 F who presented to the emergency department at [facility] on 09/23/2020 for with a chief complaint of acute onset lower extremity redness and swelling. The patient had a total knee replacement in May of this past year [facility] and unfortunately has experienced postoperative wound that has been difficult to heal. She is currently wearing a wound VAC and states clinically she is improving with regards to this wound however she developed left lower extremity redness and swelling in the last 48 hours that is worsening. Her reports that she has been exceptionally tired over the last couple days. She denies any fever or chills, she has had no nausea or vomiting, she denies myalgias, she denies any respiratory symptoms and states of her leg was not red and tender she would not be in the emergency department this evening. She had been following with Dr. Esquivel for the wound. Patient also reports she has been having some issues with hypoglycemia over the last 24 hours. She is diabetic at baseline and is on Farxiga, metformin, and glimepiride per NOV however this has not yet been verified. Vital signs on presentation showed temperature 94.4, heart rate 91, blood pressure 146/74, respiratory rate 18, and oxygen saturation was 98% on room air. CBC showed mild leukocytosis with white count of 12.3, mild anemia with a hemoglobin of 11.7 and a left shift with a 76% neutrophilia. Chemistry panel showed hyponatremia the sodium of 2.8, normal renal function, blood glucose was 32. ESR was normal and CRP was only 13.9. She was treated for hypoglycemia with improvement to her blood glucose level to 72. Venous duplex of her left lower extremity was performed to rule out DVT and it was negative. Given her hypokalemia she was treated with oral potassium, given supplementation for her blood sugar and started on vancomycin and Zosyn in the emergency department. [facility] Medical History Gangrene associated with type 2 diabetes mellitus Dehiscence of incision History of revision of total replacement of left knee joint Wears glasses Alcohol use History of steroid therapy Bladder disease Neuropathy Back pain Dietary restriction History of pain when walking Pain Myasthenia gravis Ambulates with cane Rheumatoid arthritis Low iron History of DVT (deep vein thrombosis) Hyperlipemia Difficulty swallowing History of hiatal hernia Gastric reflux Non-smoker Shortness of breath on exertion Chronic cough PONV (postoperative nausea and vomiting) Leg cramps History of edema History of stress test Hypertension Thyroid disease Cataracts, bilateral History of UTI Arthritis Home Medications ?Medication ?Instructions ?Recorded ?Last Taken ?Type folic acid 1 mg tablet 1 mg PO DAILY supplement 10/13/13 06/06/22 History atorvastatin 10 mg tablet 5 mg PO .QOD Cholesterol 09/06/21 06/26/24 18:45 History cholecalciferol (vitamin D3) 50 50 mcg PO DAILY supplement 09/06/21 06/27/24 History mcg (2,000 unit) capsule glimepiride 4 mg tablet 4 mg PO BID blood sugar 09/06/21 06/27/24 History ascorbic acid (vitamin C) 500 mg 500 mg PO DAILY supplement 02/06/22 06/27/24 History tablet (Vitamin C) omeprazole magnesium 20 mg 20 mg PO DAILY GERD 02/06/22 06/06/22 History tablet,delayed release (Prilosec OTC) dapagliflozin propanediol 5 mg 10 mg PO DAILY blood sugar 05/25/22 06/06/22 History tablet (Farxiga) levothyroxine 125 mcg tablet 100 mcg PO DAILY thyroid 05/25/22 06/27/24 History pregabalin 75 mg capsule (Lyrica) 100 mg PO TID pain 05/25/22 06/06/22 History hydrochlorothiazide 12.5 mg tablet 12.5 mg PO DAILY Blood pressure 06/07/22 Unknown History vibegron 75 mg tablet (Gemtesa) 75 mg PO DAILY Overactive bladder 12/04/22 Unknown History apixaban 2.5 mg tablet 2.5 mg PO BID Anticoagulant 06/27/24 06/27/24 08:45 History cyanocobalamin (vitamin B-12) 1,000 mcg PO DAILY Supplement 06/27/24 Unknown History 1,000 mcg capsule metformin 500 mg tablet,extended 1,000 mg PO BID Diabetes 06/27/24 06/27/24 05:30 History release 24 hr methocarbamol 500 mg tablet 500 mg PO TID Muscle spasms 06/27/24 06/27/24 08:45 History polysaccharide iron complex 150 mg 150 mg PO DAILY Supplement 06/27/24 Unknown History iron capsule (Ferrex) acetaminophen 500 mg tablet 1,000 mg (2 x 500 mg) PO Q8 #0 tabs 07/15/24 Unknown Rx arginine 7 gram-glutam 7 1 packet PO BIDCM 30 days #60 ea 07/15/24 Unknown Rx gram-CaHMB 1.5 fomh-glela-ot-min oral pwd pkt (Papa (with collagen)) doxycycline monohydrate 100 mg 100 mg PO BID 60 days #120 caps 07/15/24 Unknown Rx capsule losartan 100 mg tablet 100 mg PO DAILY 30 days #30 tabs 07/15/24 Unknown Rx oxycodone 5 mg tablet 5 - 10 mg (1 - 2 x 5 mg) PO Q4H 07/15/24 Unknown Rx PRN PRN Pain Score 4-10 7 days #84 tabs potassium chloride 20 mEq 20 meq PO DAILYCM 30 days #30 tabs 07/15/24 Unknown Rx tablet,extended release(part/cryst) sennosides 8.6 mg-docusate sodium 2 tab PO BID 30 days #120 tabs 07/15/24 Unknown Rx 50 mg tablet (Stimulant Laxative Plus) Allergy/AdvReac Type Severity Reaction Status Date / Time latex Allergy Severe Other Verified 09/23/24 16:23 shellfish derived Allergy Severe PASSED Verified 09/23/24 16:23 OUT, DIARRHEA adhesive Allergy Mild Rash Verified 09/23/24 16:23 levofloxacin AdvReac Intermediate WEAK, Verified 09/23/24 16:23 NAUSEA povidone AdvReac Mild Hives Verified 09/23/24 16:23 Surgical History History of bilateral cataract extraction History of colonoscopy S/P insertion of spinal cord stimulator History of partial thyroidectomy History of appendectomy History of left knee surgery History of hysterectomy History of cholecystectomy Social History household members: spouse Smoking Status: Never smoker Electronic Cigarette Use: not used second hand exposure: No alcohol intake: current alcohol intake frequency: a few times a month Alcohol type: wine substance use type: does not use ROS Constitutional Constitutional: Reports fatigue; Denies anorexia, change in weight, chills, fever(s), malaise, night sweats, weakness or other Eyes Eyes: Denies blurry vision, change in eye color, change in vision, discharge from eye(s), double vision, erythema, eye pain, loss of vision or other ENT HEENT: Denies abnormal hearing, dysphagia, ear pain, epistaxis, headache(s), hearing loss, nasal congestion, nasal discharge, post nasal drip, sinus pressure, sore throat or other Cardiovascular Cardiovascular: Denies chest pain, claudication, dyspnea on exertion, edema, lightheadedness, orthopnea, palpitations, paroxysmal nocturnal dyspnea, rapid heart rate, syncope or other Respiratory/Chest Respiratory/Chest: Denies cough, dyspnea, excessive phlegm production, hemoptysis, productive cough, shortness of breath at rest, shortness of breath with exertion, wheezing or other Gastrointestinal Gastrointestinal: Denies abdominal pain, coffee ground emesis, constipation, diarrhea, dyspepsia, hematemesis, hematochezia, loose stools, melena, nausea, vomiting or other Genitourinary Genitourinary: Denies burning urination, difficulty urinating, dysuria, hematuria, nocturia, urinary frequency, urinary hesitancy, urinary incontinence, urinary urgency or other Musculoskeletal Musculoskeletal: Denies arthralgias, back pain, joint pain, joint stiffness, joint swelling, myalgias, neck pain or other Integumentary Integumentary: Reports wounds and other Details: Swelling and erythema left lower extremity Neurologic Neurologic: Denies abnormal gait, abnormal speech, confusion, disequilibrium, dizziness, focal weakness, headache(s), numbness, paresthesias, seizure-like activity, seizures, syncope, tingling, tremor(s) or other Psychiatric Psychiatric: Denies anxiety, depression, homicidal ideation, suicidal ideation or other Endocrine Endocrinology: Denies change in body appearance, cold intolerance, excessive sweating, heat intolerance, polydipsia, polyuria or other Hematologic/Lymphatic Hematologic/Lymphatic: Denies anemia, easy bleeding, easy bruising, lymphadenopathy or other Allergic/Immunologic Allergic/Immunologic: Denies rhinitis, hives, eczemia, asthma or other Vital Signs Vital Signs Vital Signs: 09/23/24 16:23 09/23/24 16:27 09/23/24 17:27 Temperature 98.4 F 98.4 F 98.4 F Temperature Source Oral Oral Oral Pulse Rate 91 88 74 Respiratory Rate 18 16 16 Blood Pressure 146/74 H 146/74 H 156/52 H Blood Pressure Mean 98 98 86 Pulse Ox 98 98 98 Oxygen Delivery Method Room Air Room Air Room Air 09/23/24 18:00 Temperature 98.0 F Temperature Source Oral Pulse Rate 80 Respiratory Rate 16 Blood Pressure 156/70 H Blood Pressure Mean 98 Pulse Ox 94 Oxygen Delivery Method Room Air Physical Exam Const alert, oriented x3, no apparent distress, healthy appearing and well nourished Constitutional Narrative: Slightly overweight, older, white female, sitting up in bed, appears comfortable, at bedside, patient appears younger than stated age, nontoxic General Appearance: cooperative HEENT normocephalic, head/scalp atraumatic, hearing grossly normal bilaterally and moist oral mucous membranes Resp normal respiratory effort, no retractions, no use of accessory muscles and clear to auscultation bilaterally Auscultation: Negative for rales, rhonchi or wheezes Cardio regular rate, regular rhythm, S1 normal heart sound, S2 normal heart sound, no murmurs, no rub, no gallops and no clicks GI normal to inspection, nondistended, normoactive bowel sounds, soft to palpation and non-tender Extremity Extremity Narrative: Left lower extremity is shiny with pitting edema and tenderness, erythema starts just distal to the left knee inferior to the area of the wound VAC and extends to just above the ankle, foot is currently not involved, no clubbing or cyanosis, pedal and radial pulses are 2+ bilaterally, no open areas other than the area where the wound VAC is currently placed have been identified Neuro oriented x3, moves all extremities and no focal motor deficits Speech: speech normal Psych affect normal Psych Narrative: Very pleasant, interacts appropriately Results Lab / Micro Data 09/23/24 17:59 09/23/24 17:59 Labs: Laboratory Results - last 24 hr 09/23/24 17:59: WBC 12.3 H, RBC 4.38, Hgb 11.7 L, Hct 37.6, MCV 85.8, MCH 26.7 L, MCHC 31.1 L, RDW Std Deviation 50.8 H, RDW Coeff of April 16.3 H, Plt Count 405, MPV 10.4, Immature Gran % (Auto) 0.400, Neut % (Auto) 76.0 H, Lymph % (Auto) 13.6 L, [place] % (Auto) 7.5, Eos % (Auto) 1.9, Baso % (Auto) 0.6, Absolute Neuts (auto) 9.4 H, Absolute Lymphs (auto) 1.68, Nucleated RBC % 0, ESR 12, Sodium 142, Potassium 2.8 L, Chloride 109 H, Carbon Dioxide 26.0, Anion Gap 7, BUN 10, Creatinine 0.71, Est GFR (MDRD) Af Amer 103, Est GFR (MDRD) Non-Af 85, BUN/Creatinine Ratio 14.1, Glucose 32 L*, Calcium 9.1, Magnesium 1.8, C-React Prot Ext Range 13.90 H 09/23/24 18:08: POC Glucose 26 L* 09/23/24 20:12: POC Glucose 72 L Imaging Radiology Impression Venous Duplex 09/23/24 18:06 IMPRESSION: Normal left lower extremity duplex venous ultrasound. Electronically Signed: April Don MD at 20:07 EST Reading Location ID and State: [id number] / Tel , Service support , Assessment & Plan Assessment/Plan (1) Left leg cellulitis: (2) Hypokalemia: (3) Hypoglycemia: PLAN: Plan Left lower extremity cellulitis -Suspect tinnitus is related to the wound in her knee joint -Will cover with broad-spectrum antibiotics due to recent surgical intervention in May--> vancomycin and Zosyn -Area to be outlined and monitor for retraction of erythema and edema -Venous duplex was negative for DVT -Elevate limb -There does not appear to be an area to culture at this time -Sed rate and CRP are not suggestive of joint infection Hypokalemia -Magnesium is within normal limit -Oral replacement ordered 80 mill colons in the emergency department -Repeat lab in a.m. Hypoglycemia -Patient has been having issues with hypoglycemia since last evening -Blood sugar on presentation was 32 -Stop all oral agents -Patient is not on insulin -Will give IV fluids with dextrose--> D5 normal saline at 60 cc/h for 1 bag and then reevaluate blood sugars -I am not currently entirely clear why her blood sugars are low as she seems to have normal renal function -Check liver panel in a.m. DM-2 -Hold oral agents due to hypoglycemia on presentation -Cardiac/carb controlled diet -Accu-Cheks are ordered -Hold on SSI for now Dehiscence/delayed healing left knee postoperative incision -Follows with Dr. Esquivel at the wound center -Consult wound nurse -Continue VAC Neuropathy -Will restart Lyrica if verified GERD -Restart PPI if verified Essential hypertension/hyperlipidemia -Restart home antihypertensives once verified -Restart cholesterol medication if verified History of DVT -Patient is on apixaban--> dose unclear and a await verification Hypothyroidism -Restart thyroid replacement once verified Overactive bladder -Restart Gemtesa if verified History of iron deficiency anemia -Continue home iron once verified -Blood counts are currently appears stable DVT prophylaxis -Subcu Lovenox 40 daily CODE STATUS -DNR CCA okay for short-term intubation as verified on admission Charges/Coding Visit Charges Inpatient E&M: 88751 Init Hosp L2
[2024-09-23] MEDS: Piperacil/Tazobactam 3.375 GM in 0.9% Normal Saline (50mL MB+) 50 ML IV (21:07)
[2024-09-23] MEDS: Potassium Chloride Oral Tablet 20 MEQ 40 MEQ PO (21:07)
[2024-09-23] MEDS: Potassium Chloride Oral Soln 20 MEQ/15 ML UDC 40 MEQ PO (21:08)
--- NOTE | 2024-09-23 21:13 | ED.RN ---
pt does not know medications.
[2024-09-23] MEDS: Vancomycin IV 1,000 MG/200 ML BAG 200 MG IV (22:17)
[2024-09-23 22:28] LABS: Bedside Glucose 69 mg/dL (74-106)
[2024-09-23 22:28] LABS: Bedside Glucose 99 mg/dL (74-106)
--- NOTE | 2024-09-23 22:54 | PCM.RX.CS ---
Consult Antibiotic Management Pharmacy has been consulted to manage selected antibiotic: Vancomycin Type of Intervention Type of Consult: New start Labs Labs: Sodium 142 mmol/L (136-145) 09/23/24 17:59 Potassium 2.8 mmol/L (3.5-5.1) L 09/23/24 17:59 Chloride 109 mmol/L (98-107) H 09/23/24 17:59 Carbon Dioxide 26.0 mmol/L (21.0-32.0) 09/23/24 17:59 Anion Gap 7 (5-15) 09/23/24 17:59 BUN 10 mg/dL (7-18) 09/23/24 17:59 Creatinine 0.71 mg/dL (0.55-1.02) 09/23/24 17:59 Est GFR (MDRD) Af Amer 103 mL/min (>60) 09/23/24 17:59 Est GFR (MDRD) Non-Af 85 mL/min (>60) 09/23/24 17:59 BUN/Creatinine Ratio 14.1 RATIO (10-20) 09/23/24 17:59 Glucose 32 mg/dL (74-106) L* 09/23/24 17:59 Dosing Weight Weight used for dosin.7 kg Estimated Creatinine Clearance Estimated Creatinine Clearance: 67.5 Goal Trough Goal Trough: 15-20 mcg/mL Pharmacy Plan for Drug Dosing Pharmacy Plan for Drug Dosing: Pharmacy Service will continue to monitor and adjust dosing as required. 1GM GIVEN IN ER @ 2217. START 1GM Q12H AND DRAW TROUGH PRIOR TO 4TH DOSE Follow-Up Labs Follow-Up Labs: Trough: Vancomycin Date/Time Labs Ordered Labs to be done on [date and time ordered]: 09/25 @ 1916
[2024-09-23] MEDS: 0.9% Saline Lock 10 ML Syringe IV (23:21)
[2024-09-23] MEDS: Menthol/Lanolin/Calamine/Znox 113 GM Tube 1 APPLIC TOPICAL (23:21)
[2024-09-23] MEDS: Acetaminophen 500 MG Tablet 1000 MG PO (23:21)
[2024-09-23 23:24] LABS: Bedside Glucose 99 mg/dL (74-106)
[2024-09-23] MEDS: Dextrose 5%/0.9% NaCl 1,000 ML 60 ML IV (23:29)
[2024-09-24] VITALS (7 sets, daily range): BP systolic 137–148; BP diastolic 62–71; PULSE 64–67; RESP 16–18; TEMP 36.3–37.2; O2SAT 98; BMI 35.9
[2024-09-24] MEDS: Nystatin Powder 15gm Bottle 1 APPLIC TOPICAL ×3 (00:45→20:35)
[2024-09-24 03:01] LABS: Bedside Glucose 90 mg/dL (74-106)
[2024-09-24] MEDS: 0.9% Saline Lock 10 ML Syringe IV (06:24)
[2024-09-24] MEDS: Levothyroxine 100 MCG Tablet PO (06:24)
[2024-09-24] MEDS: Pregabalin 50 MG Capsule 100 MG PO ×3 (06:24→21:04)
[2024-09-24] MEDS: Acetaminophen 500 MG Tablet 1000 MG PO ×3 (06:24→21:04)
[2024-09-24] MEDS: Piperacil/Tazobactam 3.375 GM in 0.9% Normal Saline (50mL MB+) 50 ML IV ×3 (06:26→21:05)
--- NOTE | 2024-09-24 06:40 | PCM.HOSP.N ---
Hospitalist Note With regards to the patient's hypoglycemia, despite being on D5 normal saline at 60 cc an hour her blood sugar dropped to 60 so the rate was increased to 100 cc/h. Now that we have verified her medications I highly suspect that her hypoglycemia is related to the addition of Farxiga which was added on 09/04/2024 to the glimepiride which she was already taking. May need to discontinue glimepiride at discharge and continue Farxiga and metformin. Liver functions are still pending.
[2024-09-24 06:50] LABS: Bedside Glucose 60 mg/dL (74-106)
[2024-09-24 06:58] LABS: Absolute Lymphocyte Count 1.43 X10^3/uL (0.83-4.51); Absolute Neutrophil Count 6.4 X10^3/uL (2.0-7.7); Basophil# 0.06 X10^3/uL; Basophil% 0.7 % (0-1); Eosinophil# 0.35 X10^3/uL; Eosinophils% 3.8 % (0-5); Hematocrit 33.3 % (37-47); Hemoglobin 10.2 g/dL (12.0-15.0); Lymphocyte # 1.43 X10^3/ul (0.83-4.51); Lymphocyte % 15.6 % (19-41); Mean Corp Hgb Conc 30.6 g/dL (32-36); Mean Corpuscular Hgb 26.5 pg (27.0-32.0); Mean Corpuscular Volume 86.5 fL (81-99); Mean Platelet Vol. 10.6 fl (6.2-12.0); Monocyte# 0.92 X10^3/uL; Monocyte% 10.1 % (0-10); NRBC Flagged by Analyzer 0 % (0-5); Neutrophil # 6.35 X10^3/uL (2.7-7.7); Neutrophil % 69.5 % (47-70); Platelet Count 328 K/mm3 (150-450); RBC Distribution Width CV 16.4 % (11.6-14.6); RBC Distribution Width SD 51.7 fl (35.1-43.9); Red Blood Count 3.85 M/mm3 (4.2-5.4); White Blood Count 9.1 K/mm3 (4.4-11.0)
[2024-09-24 07:08] LABS: Bedside Glucose 92 mg/dL (74-106)
[2024-09-24] MEDS: Enoxaparin 40 MG/0.4 ML Syringe SC (07:55)
[2024-09-24 08:11] LABS: ALB/GLOB Ratio 0.7 RATIO (0.9-2.4); AST(SGOT) 11 U/L (15-37); Alanine Aminotransfer ALT/SGPT 15 U/L (13-56); Albumin, Serum 2.4 g/dL (3.2-5.0); Alkaline Phosphatase 77 U/L (45-117); Anion Gap 4 (5-15); BUN 9 mg/dL (7-18); BUN/Creat Ratio 14.7 RATIO (10-20); Calcium,Total 8.3 mg/dL (8.5-10.1); Chloride 111 mmol/L (98-107); Creatinine, Serum 0.61 mg/dL (0.55-1.02); EST Glomerular Filtration Rate 101 mL/min (>60); Est Glom Filt Rate - Afr Amer 123 mL/min (>60); Estimated Creatinine Clearance 60.58 ml/min; Globulin 3.4 g/dL (2.2-4.2); Glucose 59 mg/dL (74-106); Magnesium 1.8 mg/dL (1.6-2.6); Phosphorus 3.1 mg/dL (2.5-4.9); Potassium 3.6 mmol/L (3.5-5.1); Protein, Total 5.8 g/dL (6.4-8.2); Sodium Level 141 mmol/L (136-145)
--- NOTE | 2024-09-24 09:24 | PCM.PN.HOSP ---
Reason for Visit Reason for Visit: Diagnoses Hypoglycemia, unspecified (09/23/24) Hypokalemia (09/23/24) Cellulitis of left lower limb (09/23/24) Subjective Subjective Patient is a 73-year-old lady with multiple comorbidities including left knee wound for which patient has a wound VAC was sent to the ED after she was found to have erythema and swelling involving the left lower extremity and assessment of cellulitis was made admitted to regular nursing floor for further management Objective Data Objective Data Vital Signs: Vital Signs Temp Pulse Resp BP Pulse Ox O2 Del Method 98.7 F 64 18 137/63 H 98 Room Air 09/24/24 07:59 09/24/24 07:59 09/24/24 07:59 09/24/24 07:59 09/24/24 08:00 09/24/24 08:00 Oxygen Delivery Method Room Air Weight: 86.2 kg Body Mass Index (BMI) 35.9 Intake & Output: Intake and Output for Last 24 Hours 09/22/24 09/23/24 09/24/24 23:59 23:59 23:59 Intake Total 250 / 250 676 / 676 Balance 250 / 250 676 / 676 Lab / Micro Data 09/24/24 06:25 09/24/24 06:25 Labs: Laboratory Results - last 24 hr 09/23/24 17:59: WBC 12.3 H, RBC 4.38, Hgb 11.7 L, Hct 37.6, MCV 85.8, MCH 26.7 L, MCHC 31.1 L, RDW Std Deviation 50.8 H, RDW Coeff of April 16.3 H, Plt Count 405, MPV 10.4, Immature Gran % (Auto) 0.400, Neut % (Auto) 76.0 H, Lymph % (Auto) 13.6 L, [place] % (Auto) 7.5, Eos % (Auto) 1.9, Baso % (Auto) 0.6, Absolute Neuts (auto) 9.4 H, Absolute Lymphs (auto) 1.68, Nucleated RBC % 0, ESR 12, Sodium 142, Potassium 2.8 L, Chloride 109 H, Carbon Dioxide 26.0, Anion Gap 7, BUN 10, Creatinine 0.71, Est GFR (MDRD) Af Amer 103, Est GFR (MDRD) Non-Af 85, BUN/Creatinine Ratio 14.1, Glucose 32 L*, Calcium 9.1, Magnesium 1.8, C-React Prot Ext Range 13.90 H 09/23/24 18:08: POC Glucose 26 L* 09/23/24 19:12: POC Glucose 69 L 09/23/24 20:12: POC Glucose 72 L 09/23/24 22:11: POC Glucose 99 09/23/24 23:04: POC Glucose 99 09/24/24 02:42: POC Glucose 90 09/24/24 06:23: POC Glucose 60 L 09/24/24 06:25: WBC 9.1, RBC 3.85 L, Hgb 10.2 L, Hct 33.3 L, MCV 86.5, MCH 26.5 L, MCHC 30.6 L, RDW Std Deviation 51.7 H, RDW Coeff of April 16.4 H, Plt Count 328, MPV 10.6, Immature Gran % (Auto) 0.300, Neut % (Auto) 69.5, Lymph % (Auto) 15.6 L, [place] % (Auto) 10.1 H, Eos % (Auto) 3.8, Baso % (Auto) 0.7, Absolute Neuts (auto) 6.4, Absolute Lymphs (auto) 1.43, Nucleated RBC % 0, Sodium 141, Potassium 3.6, Chloride 111 H, Carbon Dioxide 26.0, Anion Gap 4 L, BUN 9, Creatinine 0.61, Estim Creat Clear Calc 60.58, Est GFR (MDRD) Af Amer 123, Est GFR (MDRD) Non-Af 101, BUN/Creatinine Ratio 14.7, Glucose 59 L, Calcium 8.3 L, Phosphorus 3.1, Magnesium 1.8, Total Bilirubin 0.50, AST 11 L, ALT 15, Alkaline Phosphatase 77, Total Protein 5.8 L, Albumin 2.4 L, Globulin 3.4, Albumin/Globulin Ratio 0.7 L 09/24/24 06:51: POC Glucose 92 Radiography Diagnostic Testing: Radiology Impression Venous Duplex 09/23/24 18:06 IMPRESSION: Normal left lower extremity duplex venous ultrasound. Electronically Signed: April Don MD at 20:07 EST Reading Location ID and State: [id number] / Tel , Service support , Physical Exam Narrative GENERAL: cooperative HEENT: Atraumatic; normocephalic EYES; Anicteric, Normal Conjunctiva NECK; supple, normal thyroid, RESPIRATORY: Diminished to auscultation CARDIOVASCULAR: Regular S1 S2, GI: soft, normoactive bowel sounds, : No Renal angle tenderness; EXTREMITIES: No edema, no clubbing, MUSCULOSKELETAL: Left knee with a wound VAC NEURO: Awake; no lateralizing signs. SKIN: An area of erythema involving the distal LLE PSYCH; Flat affect Assessment & Plan Assessment/Plan (1) Left leg cellulitis: (2) Hypokalemia: (3) Hypoglycemia: PLAN: Plan Patient is a 73-year-old lady with multiple comorbidities including left knee wound for which patient has a wound VAC was sent to the ED after she was found to have erythema and swelling involving the left lower extremity and assessment of cellulitis was made admitted to regular nursing floor for further management 1. Left lower extremity cellulitis ? Patient admitted to regular nursing floor started on vancomycin and Zosyn. Response to therapy being monitored with demarcation of the area of involvement as well as vitals and WBC count 2. Chronic wound involving the left knee ? Following surgical intervention with subsequent wound dehiscence and delayed healing.. Patient has wound VAC in place. Wound care nurse consulted 3. Hypokalemia ? Corrected per protocol 4. Hypoglycemia ? Secondary to use of sulfonylurea. Patient glucose on admission was 32 offending medications held 5. Diabetes mellitus type II -Patient presented with complications including hypoglycemia, patient's oral hypoglycemics held. Placed on Accu-Cheks a.c. and at bedtime and covered with sliding scale insulin 6. Hypothyroidism ? Patient is on levothyroxine home dose continued 7. Hypertension ? Blood pressure controlled, home medications continued with dose adjustment as needed 8. Peripheral neuropathy ? Patient is on Lyrica 9. Chronic iron deficiency anemia ? Patient is on iron supplement continue 10. Dyslipidemia ?Patient is on statin therapy, continued at home dose 11. Dyslipidemia ?Patient is on statin therapy, continued at home dose Time spent in the patient's overall evaluation,decision-making process, review of diagnostic data, adjustment of management, discussion with other providers, nursing nursing and ancillary staff involved in patient's care documentation, 38 Minutes Charges/Coding Visit Charges Inpatient E&M: 72810 Subs Hosp L2
[2024-09-24] MEDS: Cholecalciferol (VIT D3) 25 MCG TABLET (1,000 UNITS) 50 MCG PO (10:00)
[2024-09-24] MEDS: Potassium Chloride Oral Tablet 20 MEQ PO (10:01)
[2024-09-24] MEDS: Ascorbic Acid 500 MG Tablet PO (10:01)
[2024-09-24] MEDS: Vibegron 75 MG TABLET PO (10:01)
[2024-09-24] MEDS: Losartan Potassium 100 MG Tablet PO (10:01)
[2024-09-24] MEDS: Folic Acid 1 MG Tablet PO (10:01)
[2024-09-24] MEDS: hydroCHLOROthiazide 12.5mg 12.5 MG PO (10:01)
[2024-09-24] MEDS: Menthol/Lanolin/Calamine/Znox 113 GM Tube 1 APPLIC TOPICAL ×2 (10:02→20:36)
[2024-09-24] MEDS: Vancomycin IV 1,000 MG/200 ML BAG 200 MG IV ×2 (10:10→21:06)
[2024-09-24 10:33] LABS: Bedside Glucose 214 mg/dL (74-106)
[2024-09-24] MEDS: Juven (unflavored) Packet 1 PACKET PO ×2 (11:07→21:04)
[2024-09-24 17:13] LABS: Bedside Glucose 177 mg/dL (74-106)
[2024-09-24 17:36] LABS: Bedside Glucose 24 mg/dL (74-106)
[2024-09-24] MEDS: oxyCODONE 5 MG Tablet PO (20:28)
[2024-09-24 22:21] LABS: Bedside Glucose 170 mg/dL (74-106)
[2024-09-25 00:57] LABS: Bedside Glucose 169 mg/dL (74-106)
[2024-09-25 02:00] VITALS: BP 144/64; PULSE 64; RESP 16; TEMP 36.6; O2SAT 96
[2024-09-25 05:39] VITALS: BMI 34.9
[2024-09-25] MEDS: Piperacil/Tazobactam 3.375 GM in 0.9% Normal Saline (50mL MB+) 50 ML IV ×3 (05:41→21:10)
[2024-09-25] MEDS: Acetaminophen 500 MG Tablet 1000 MG PO ×3 (05:42→21:10)
[2024-09-25] MEDS: Pregabalin 50 MG Capsule 100 MG PO ×3 (05:42→21:09)
[2024-09-25] MEDS: Levothyroxine 100 MCG Tablet PO (05:43)
[2024-09-25 06:21] LABS: Bedside Glucose 117 mg/dL (74-106)
[2024-09-25 06:32] LABS: Absolute Lymphocyte Count 1.76 X10^3/uL (0.83-4.51); Absolute Neutrophil Count 4.2 X10^3/uL (2.0-7.7); Basophil# 0.06 X10^3/uL; Basophil% 0.8 % (0-1); Eosinophil# 0.47 X10^3/uL; Eosinophils% 6.5 % (0-5); Hematocrit 36.3 % (37-47); Hemoglobin 11.3 g/dL (12.0-15.0); Lymphocyte # 1.76 X10^3/ul (0.83-4.51); Lymphocyte % 24.4 % (19-41); Mean Corp Hgb Conc 31.1 g/dL (32-36); Mean Corpuscular Hgb 26.9 pg (27.0-32.0); Mean Corpuscular Volume 86.4 fL (81-99); Mean Platelet Vol. 10.9 fl (6.2-12.0); Monocyte# 0.69 X10^3/uL; Monocyte% 9.6 % (0-10); NRBC Flagged by Analyzer 0 % (0-5); Neutrophil % 58.4 % (47-70); Platelet Count 355 K/mm3 (150-450); RBC Distribution Width CV 16.3 % (11.6-14.6); RBC Distribution Width SD 51.2 fl (35.1-43.9); White Blood Count 7.2 K/mm3 (4.4-11.0)
[2024-09-25 06:58] LABS: Anion Gap 5 (5-15); BUN 18 mg/dL (7-18); BUN/Creat Ratio 22.4 RATIO (10-20); Calcium,Total 9.4 mg/dL (8.5-10.1); Chloride 109 mmol/L (98-107); EST Glomerular Filtration Rate 74 mL/min (>60); Est Glom Filt Rate - Afr Amer 89 mL/min (>60); Estimated Creatinine Clearance 59.66 ml/min; Glucose 131 mg/dL (74-106); Magnesium 2.1 mg/dL (1.6-2.6); Phosphorus 3.8 mg/dL (2.5-4.9); Potassium 3.8 mmol/L (3.5-5.1); Sodium Level 139 mmol/L (136-145)
--- NOTE | 2024-09-25 08:19 | PCM.PN.HOSP ---
Reason for Visit Reason for Visit: Diagnoses Hypoglycemia, unspecified (09/23/24) Hypokalemia (09/23/24) Cellulitis of left lower limb (09/23/24) Subjective Subjective Area of cellulitis significantly improved patient however had cultures drawn from anemia and results of which are still pending Objective Data Objective Data Vital Signs: Vital Signs Temp Pulse Resp BP Pulse Ox O2 Del Method 97.8 F 64 16 144/64 H 96 Room Air 09/25/24 02:00 09/25/24 02:00 09/25/24 02:00 09/25/24 02:00 09/25/24 02:00 09/25/24 02:00 Oxygen Delivery Method Room Air Weight: 83.8 kg Body Mass Index (BMI) 34.9 Intake & Output: Intake and Output for Last 24 Hours 09/23/24 09/24/24 09/25/24 23:59 23:59 23:59 Intake Total 250 / 250 2450.00 / 2450.00 50 / 50 Balance 250 / 250 2450.00 / 2450.00 50 / 50 Lab / Micro Data 09/25/24 05:42 09/25/24 05:42 Labs: Laboratory Results - last 24 hr 09/23/24 18:17: POC Glucose 24 L* 09/24/24 09:57: POC Glucose 214 H 09/24/24 16:50: POC Glucose 177 H 09/24/24 21:02: POC Glucose 170 H 09/25/24 00:40: POC Glucose 169 H 09/25/24 05:39: POC Glucose 117 H 09/25/24 05:42: WBC 7.2, RBC 4.20, Hgb 11.3 L, Hct 36.3 L, MCV 86.4, MCH 26.9 L, MCHC 31.1 L, RDW Std Deviation 51.2 H, RDW Coeff of April 16.3 H, Plt Count 355, MPV 10.9, Immature Gran % (Auto) 0.300, Neut % (Auto) 58.4, Lymph % (Auto) 24.4, [place] % (Auto) 9.6, Eos % (Auto) 6.5 H, Baso % (Auto) 0.8, Absolute Neuts (auto) 4.2, Absolute Lymphs (auto) 1.76, Nucleated RBC % 0, Sodium 139, Potassium 3.8, Chloride 109 H, Carbon Dioxide 26.0, Anion Gap 5, BUN 18, Creatinine 0.80, Estim Creat Clear Calc 59.66, Est GFR (MDRD) Af Amer 89, Est GFR (MDRD) Non-Af 74, BUN/Creatinine Ratio 22.4 H, Glucose 131 H, Calcium 9.4, Phosphorus 3.8, Magnesium 2.1 Physical Exam Narrative GENERAL: cooperative HEENT: Atraumatic; normocephalic EYES; Anicteric, Normal Conjunctiva NECK; supple, normal thyroid, RESPIRATORY: Diminished to auscultation CARDIOVASCULAR: Regular S1 S2, GI: soft, normoactive bowel sounds, : No Renal angle tenderness; EXTREMITIES: No edema, no clubbing, MUSCULOSKELETAL: Left knee with a wound VAC NEURO: Awake; no lateralizing signs. SKIN: An area of erythema involving the distal LLE PSYCH; Flat affect Assessment & Plan Assessment/Plan (1) Left leg cellulitis: (2) Hypokalemia: (3) Hypoglycemia: PLAN: Plan Patient is a 73-year-old lady with multiple comorbidities including left knee wound for which patient has a wound VAC was sent to the ED after she was found to have erythema and swelling involving the left lower extremity and assessment of cellulitis was made admitted to regular nursing floor for further management 1. Left lower extremity cellulitis ? Patient admitted to regular nursing floor started on vancomycin and Zosyn. Response to therapy being monitored with demarcation of the area of involvement as well as vitals and WBC count ? 09/25/2024;Area of cellulitis significantly improved patient however had cultures drawn from anemia and results of which are still pending 2. Chronic wound involving the left knee ? Following surgical intervention with subsequent wound dehiscence and delayed healing.. Patient has wound VAC in place. Wound care nurse consulted 3. Hypokalemia ? Corrected per protocol 4. Hypoglycemia ? Secondary to use of sulfonylurea. Patient glucose on admission was 32 offending medications held 5. Diabetes mellitus type II -Patient presented with complications including hypoglycemia, patient's oral hypoglycemics held. Placed on Accu-Cheks a.c. and at bedtime and covered with sliding scale insulin 6. Hypothyroidism ? Patient is on levothyroxine home dose continued 7. Hypertension ? Blood pressure controlled, home medications continued with dose adjustment as needed 8. Peripheral neuropathy ? Patient is on Lyrica 9. Chronic iron deficiency anemia ? Patient is on iron supplement continue 10. Dyslipidemia ?Patient is on statin therapy, continued at home dose 11. Dyslipidemia ?Patient is on statin therapy, continued at home dose Time spent in the patient's overall evaluation,decision-making process, review of diagnostic data, adjustment of management, discussion with other providers, nursing nursing and ancillary staff involved in patient's care documentation, 38 Minutes Charges/Coding Visit Charges Inpatient E&M: 44864 Subs Hosp L2
[2024-09-25 08:46] VITALS: BP 135/103; PULSE 70; RESP 18; TEMP 37.2; O2SAT 96
--- NOTE | 2024-09-25 08:57 | WOUNDNOTE ---
wound photo: left knee
[2024-09-25 10:00] VITALS: RESP 18
[2024-09-25 10:04] LABS: Vancomycin, Trough Level 15.6 ug/mL (5.0-15.0)
[2024-09-25] MEDS: Vancomycin IV 1,000 MG/200 ML BAG 200 MG IV ×2 (10:26→22:09)
[2024-09-25] MEDS: Juven (unflavored) Packet 1 PACKET PO ×2 (10:26→21:09)
[2024-09-25] MEDS: Vibegron 75 MG TABLET PO (10:27)
[2024-09-25] MEDS: hydroCHLOROthiazide 12.5mg 12.5 MG PO (10:27)
[2024-09-25] MEDS: Folic Acid 1 MG Tablet PO (10:27)
[2024-09-25] MEDS: Potassium Chloride Oral Tablet 20 MEQ PO (10:27)
[2024-09-25] MEDS: Cholecalciferol (VIT D3) 25 MCG TABLET (1,000 UNITS) 50 MCG PO (10:27)
[2024-09-25] MEDS: Enoxaparin 40 MG/0.4 ML Syringe SC (10:27)
[2024-09-25] MEDS: Iron Polysaccharide Complex 150 MG CAPSULE 65 MG PO (10:28)
[2024-09-25] MEDS: Losartan Potassium 100 MG Tablet PO (10:28)
[2024-09-25] MEDS: Menthol/Lanolin/Calamine/Znox 113 GM Tube 1 APPLIC TOPICAL ×2 (10:28→21:13)
[2024-09-25] MEDS: Ascorbic Acid 500 MG Tablet PO (10:29)
[2024-09-25] MEDS: Nystatin Powder 15gm Bottle 1 APPLIC TOPICAL ×2 (10:29→21:09)
--- NOTE | 2024-09-25 12:50 | CASEMGMT ---
ROSEMARY HURT Assessment: ROSEMARY HURT to meet with patient for initial transition planning/care coordination assessment. ROSEMARY HURT introduced self and role at [facility]. Patient resting in bed, alert and oriented. Patient willing to participate in assessment and is able to answer all questions appropriately. Care providers, pharmacy, and demographics verified. PCP: Dr Thompson Specialists: Pt goes to [facility] Tues[facility] and and has wound vac changed there. She plans to continue with this @ discharge. Pt states Marcelina, wound nurse, changes vac dressing today. Preferred Pharmacy: [facility] Insurance: [email or web address] [facility] Prescription Benefit: yes LNOK: , Adan. Daughter, Bhumi Living Arrangements: Patient lives with in a one-story home with 2 steps and railing to enter the home. Pt states is mostly independent with ADL's, does assist w/LB dressing. does most home mgnt tasks. Transportation: DME: Patient has shower chair, raised toilet, cane, walker, rollator, wheelchair, and functioning glucometer w/supplies (just got a new one) at home. She denies need for further DME at this time. SNF/HHC: Hx of [facility] in 2013, [facility] in 2014 and 06/2024, and has had [facility] in the past. She currently goes to [facility] for outpatient therapy 3 days/week and wishes to resume this @ discharge. She denies needing/wanting HHC. Patient states she has no further needs or concerns at this time. ROSEMARY HURT to follow for any discharge planning needs that may arise. Plan: Discharge home with resumption of outpatient therapy and going to [facility] 2 x's/week ( and ) for wound vac change, family support, and follow-up plans in place. Christiano BOTELLO RN, CM
[2024-09-25] MEDS: oxyCODONE 5 MG Tablet PO (14:31)
--- NOTE | 2024-09-25 14:32 | CHAPLAIN ---
Type of Pastoral Visit _x__ Initial Visit ___ Follow-up Visit ___ On-call Visit ___ General Patient Visit ___ Spiritual Assessment ___ Family Conference ___ Bereavement ___ Rapid Response ___ Code Blue ___ Other (describe below) Pastoral Care Referral From _x__ Patient ___ Family ___ Nurse ___ Physician ___ Improvement Nurse ___ Brick Washer ___ Other (describe below) Sacrament/Intervention _x__ Active listening ___ Anointing ___ Roman Catholic ___ Bereavement ___ Communion _x__ Lauren exploration ___ _x__ Life review _x__ Prayer ___ Reconciliation ___ Sacrament of Sick __x_ Supportive presence ___ Wedding ___ Other (describe below) Pastoral Comments patient is quite talkative and expressing her optimism of doing better and being released from the hospital; pt also gives a detailed list of disappointing and failed outcomes of previous surgeries which continue to limit her activities and life; pt is connected to a new restorationist and she is eager to speak of it and how she wants to be active in its activities; pt has a spouse for support; pt welcomes presence and prayer
[2024-09-25 14:39] VITALS: BP 141/60; PULSE 72; RESP 18; TEMP 36.7; O2SAT 96
--- NOTE | 2024-09-25 14:58 | PCM.RX.CS ---
Consult Antibiotic Management Pharmacy has been consulted to manage selected antibiotic: Vancomycin Type of Intervention Type of Consult: Follow-up Suspected Infection Suspected Infection: Skin/Soft tissue Labs Labs: Sodium 139 mmol/L (136-145) 09/25/24 05:42 Potassium 3.8 mmol/L (3.5-5.1) 09/25/24 05:42 Chloride 109 mmol/L (98-107) H 09/25/24 05:42 Carbon Dioxide 26.0 mmol/L (21.0-32.0) 09/25/24 05:42 Anion Gap 5 (5-15) 09/25/24 05:42 BUN 18 mg/dL (7-18) 09/25/24 05:42 Creatinine 0.80 mg/dL (0.55-1.02) 09/25/24 05:42 Est GFR (MDRD) Af Amer 89 mL/min (>60) 09/25/24 05:42 Est GFR (MDRD) Non-Af 74 mL/min (>60) 09/25/24 05:42 BUN/Creatinine Ratio 22.4 RATIO (10-20) H 09/25/24 05:42 Glucose 131 mg/dL (74-106) H 09/25/24 05:42 Vancomycin Trough 15.6 ug/mL (5.0-15.0) H 09/25/24 09:27 Microbiology Microbiology: Microbiology 09/23/24 07:45 Wound - Knee Gram Stain - Final 09/23/24 07:45 Wound - Knee Skin and Soft Tissue MRSA/MSSA (PCR - Final Goal Trough Goal Trough: 15-20 mcg/mL Pharmacy Plan for Drug Dosing Pharmacy Plan for Drug Dosing: VANCOMYCIN LEVEL RECEIVED Current Vancomycin Dose: 1000mg q12h (at 10,22) Number of Doses Received: x3 1000mg doses Vancomycin Level: 15.6 (drawn 09/25/24 at 0927) Hours Since Last Dose: 12 hours since last 1000mg dose on 09/24/24 at 2106 Renal Function: SrCr 0.8 Renal Function Trend: SrCr stable Lab/Micro: Vancomycin Plan/Comments: resulted trough of 15.6 is within the ordered goal trough range of 15-20. recommend continuing current dose of 1000mg q12h and checking a trough prior to the 4th dose Pending Level: 09/26/24 at 2130 Pharmacy Service will continue to monitor and adjust dosing as required. Follow-Up Labs Follow-Up Labs: Trough: Vancomycin (-12/16 at 2130)
[2024-09-25 17:00] VITALS: RESP 18
[2024-09-25 19:46] VITALS: BP 129/59; PULSE 61; RESP 16; TEMP 36.7; O2SAT 97
[2024-09-25] MEDS: Atorvastatin Calcium 10 MG Tablet 5 MG PO (21:09)
[2024-09-25] MEDS: 0.9% Saline Lock 10 ML Syringe IV (22:13)
[2024-09-26 02:15] VITALS: BP 134/68; PULSE 81; RESP 16; TEMP 36.6; O2SAT 97
[2024-09-26] MEDS: Piperacil/Tazobactam 3.375 GM in 0.9% Normal Saline (50mL MB+) 50 ML IV (05:17)
[2024-09-26] MEDS: Levothyroxine 100 MCG Tablet PO (05:17)
[2024-09-26] MEDS: Pregabalin 50 MG Capsule 100 MG PO ×2 (05:17→14:29)
[2024-09-26] MEDS: Acetaminophen 500 MG Tablet 1000 MG PO ×2 (05:17→14:30)
[2024-09-26 06:00] VITALS: BMI 34.3
[2024-09-26 06:47] LABS: Absolute Lymphocyte Count 1.48 X10^3/uL (0.83-4.51); Absolute Neutrophil Count 4.2 X10^3/uL (2.0-7.7); Basophil# 0.08 X10^3/uL; Basophil% 1.1 % (0-1); Eosinophil# 0.56 X10^3/uL; Eosinophils% 7.9 % (0-5); Hematocrit 33.5 % (37-47); Hemoglobin 10.5 g/dL (12.0-15.0); Lymphocyte # 1.48 X10^3/ul (0.83-4.51); Lymphocyte % 20.8 % (19-41); Mean Corp Hgb Conc 31.3 g/dL (32-36); Mean Corpuscular Hgb 26.8 pg (27.0-32.0); Mean Corpuscular Volume 85.5 fL (81-99); Mean Platelet Vol. 10.8 fl (6.2-12.0); Monocyte# 0.82 X10^3/uL; Monocyte% 11.5 % (0-10); NRBC Flagged by Analyzer 0 % (0-5); Neutrophil # 4.15 X10^3/uL (2.7-7.7); Neutrophil % 58.4 % (47-70); Platelet Count 335 K/mm3 (150-450); RBC Distribution Width CV 16.2 % (11.6-14.6); RBC Distribution Width SD 50.6 fl (35.1-43.9); Red Blood Count 3.92 M/mm3 (4.2-5.4); White Blood Count 7.1 K/mm3 (4.4-11.0)
[2024-09-26 07:03] LABS: Anion Gap 4 (5-15); BUN 24 mg/dL (7-18); BUN/Creat Ratio 29.5 RATIO (10-20); Calcium,Total 9.1 mg/dL (8.5-10.1); Chloride 110 mmol/L (98-107); Creatinine, Serum 0.81 mg/dL (0.55-1.02); EST Glomerular Filtration Rate 73 mL/min (>60); Est Glom Filt Rate - Afr Amer 88 mL/min (>60); Estimated Creatinine Clearance 58.43 ml/min; Glucose 138 mg/dL (74-106); Potassium 3.9 mmol/L (3.5-5.1); Sodium Level 141 mmol/L (136-145)
--- NOTE | 2024-09-26 08:14 | PCM.PN.HOSP ---
Reason for Visit Reason for Visit: Diagnoses Hypoglycemia, unspecified (09/23/24) Hypokalemia (09/23/24) Cellulitis of left lower limb (09/23/24) Subjective Subjective Patient seen requesting to be discharged home. Her preliminary wound cultures so far positive GNR lactose [employer]. Consult has been placed to ID the day prior awaiting input Objective Data Objective Data Vital Signs: Vital Signs Temp Pulse Resp BP Pulse Ox O2 Del Method 98 F 81 16 134/68 H 97 Room Air 09/26/24 02:15 09/26/24 02:15 09/26/24 02:15 09/26/24 02:15 09/26/24 02:15 09/26/24 02:15 Oxygen Delivery Method Room Air Weight: 82.5 kg Body Mass Index (BMI) 34.3 Intake & Output: Intake and Output for Last 24 Hours 09/24/24 09/25/24 09/26/24 23:59 23:59 23:59 Intake Total 2450.00 / 2450.00 2550 / 2550 50 / 50 Balance 2450.00 / 2450.00 2550 / 2550 50 / 50 Lab / Micro Data 09/26/24 06:02 09/26/24 06:02 Labs: Laboratory Results - last 24 hr 09/25/24 09:27: Vancomycin Trough 15.6 H 09/26/24 06:02: WBC 7.1, RBC 3.92 L, Hgb 10.5 L, Hct 33.5 L, MCV 85.5, MCH 26.8 L, MCHC 31.3 L, RDW Std Deviation 50.6 H, RDW Coeff of April 16.2 H, Plt Count 335, MPV 10.8, Immature Gran % (Auto) 0.300, Neut % (Auto) 58.4, Lymph % (Auto) 20.8, Cannon % (Auto) 11.5 H, Eos % (Auto) 7.9 H, Baso % (Auto) 1.1 H, Absolute Neuts (auto) 4.2, Absolute Lymphs (auto) 1.48, Nucleated RBC % 0, Sodium 141, Potassium 3.9, Chloride 110 H, Carbon Dioxide 27.0, Anion Gap 4 L, BUN 24 H, Creatinine 0.81, Estim Creat Clear Calc 58.43, Est GFR (MDRD) Af Amer 88, Est GFR (MDRD) Non-Af 73, BUN/Creatinine Ratio 29.5 H, Glucose 138 H, Calcium 9.1 Micro: Microbiology 09/23/24 07:45 Wound - Knee Gram Stain - Final 09/23/24 07:45 Wound - Knee Skin and Soft Tissue MRSA/MSSA (PCR - Final Physical Exam Narrative GENERAL: cooperative HEENT: Atraumatic; normocephalic EYES; Anicteric, Normal Conjunctiva NECK; supple, normal thyroid, RESPIRATORY: Diminished to auscultation CARDIOVASCULAR: Regular S1 S2, GI: soft, normoactive bowel sounds, : No Renal angle tenderness; EXTREMITIES: No edema, no clubbing, MUSCULOSKELETAL: Left knee with a wound VAC NEURO: Awake; no lateralizing signs. SKIN: An area of erythema involving the distal LLE PSYCH; Flat affect Assessment & Plan Assessment/Plan (1) Left leg cellulitis: (2) Hypokalemia: (3) Hypoglycemia: PLAN: Plan Patient is a 73-year-old lady with multiple comorbidities including left knee wound for which patient has a wound VAC was sent to the ED after she was found to have erythema and swelling involving the left lower extremity and assessment of cellulitis was made admitted to regular nursing floor for further management 1. Left lower extremity cellulitis ? Patient admitted to regular nursing floor started on vancomycin and Zosyn. Response to therapy being monitored with demarcation of the area of involvement as well as vitals and WBC count ? 09/25/2024;Area of cellulitis significantly improved patient however had cultures drawn on admission; results of which are still pending ? 09/26/2024 Patient seen requesting to be discharged home. Her preliminary wound cultures so far positive GNR lactose [employer] rep. Consult has been placed to ID the day prior awaiting input 2. Chronic wound involving the left knee ? Following surgical intervention with subsequent wound dehiscence and delayed healing.. Patient has wound VAC in place. Wound care nurse consulted 3. Hypokalemia ? Corrected per protocol 4. Hypoglycemia ? Secondary to use of sulfonylurea. Patient glucose on admission was 32 offending medications held 5. Diabetes mellitus type II -Patient presented with complications including hypoglycemia, patient's oral hypoglycemics held. Placed on Accu-Cheks a.c. and at bedtime and covered with sliding scale insulin 6. Hypothyroidism ? Patient is on levothyroxine home dose continued 7. Hypertension ? Blood pressure controlled, home medications continued with dose adjustment as needed 8. Peripheral neuropathy ? Patient is on Lyrica 9. Chronic iron deficiency anemia ? Patient is on iron supplement continue 10. Dyslipidemia ?Patient is on statin therapy, continued at home dose 11. Dyslipidemia ?Patient is on statin therapy, continued at home dose Time spent in the patient's overall evaluation,decision-making process, review of diagnostic data, adjustment of management, discussion with other providers, nursing nursing and ancillary staff involved in patient's care documentation, 38 Minutes Charges/Coding Visit Charges Inpatient E&M: 51200 Subs Hosp L2
[2024-09-26] MEDS: Juven (unflavored) Packet 1 PACKET PO (08:35)
[2024-09-26] MEDS: Enoxaparin 40 MG/0.4 ML Syringe SC (08:35)
[2024-09-26] MEDS: Cholecalciferol (VIT D3) 25 MCG TABLET (1,000 UNITS) 50 MCG PO (08:36)
[2024-09-26] MEDS: Vibegron 75 MG TABLET PO (08:36)
[2024-09-26] MEDS: Ascorbic Acid 500 MG Tablet PO (08:36)
[2024-09-26] MEDS: Folic Acid 1 MG Tablet PO (08:37)
[2024-09-26] MEDS: Nystatin Powder 15gm Bottle 1 APPLIC TOPICAL (08:37)
[2024-09-26] MEDS: hydroCHLOROthiazide 12.5mg 12.5 MG PO (08:37)
[2024-09-26] MEDS: Potassium Chloride Oral Tablet 20 MEQ PO (08:37)
[2024-09-26] MEDS: Losartan Potassium 100 MG Tablet PO (08:37)
[2024-09-26] MEDS: Menthol/Lanolin/Calamine/Znox 113 GM Tube 1 APPLIC TOPICAL (08:43)
[2024-09-26 08:46] VITALS: BP 149/65; PULSE 65; RESP 18; TEMP 37.1; O2SAT 97
[2024-09-26] MEDS: Vancomycin IV 1,000 MG/200 ML BAG 200 MG IV (10:54)
--- NOTE | 2024-09-26 12:41 | CON.PCM.ID_ITS ---
Assessment & Plan Assessment/Plan (1) Left leg cellulitis: PLAN: Patient currently on broad-spectrum antimicrobial therapy to form vancomycin plus Zosyn. Given the appearance of the left knee and the skin the soft tissue component, recommend streamlining her antimicrobial therapy to an oral antimicrobial agent cephalexin 500 mg 4 times a day. I did write a prescription for cephalexin for 7-day course. Streamlining her antimicrobial therapy will reduce the risk of emergence of antimicrobial resistance which is a basic principal antimicrobial stewardship. Short course of antibiotic as outlined in the outpatient setting will also reduce the risk of C. difficile infection by reducing antimicrobial therapy burden. HPI Consult Data Date of Consult: 09/26/24 HPI Narrative Reason for Consultation: Left knee cellulitis HPI Narrative: LEOBARDO VALDEZ, is a 73 F who presents multiple comorbidities including diabetes mellitus type 2, osteoarthritis with multiple orthopedic surgeries involving left knee with a left total knee arthroplasty with multiple revisions, last surgery was this past May. Patient has had a nonhealing wound in the left knee since her surgery and currently has a wound VAC. Patient was admitted roughly 72 hours ago with increasing erythema left knee/cellulitic process. Denies any fevers at home. No cardiopulmonary distress. Overall states of feeling much better. I had the opportunity to review the images of the left knee wound with the wound care nurse this afternoon. Patient denies any gastrointestinal distress. Currently on vancomycin plus Zosyn. 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 Dehiscence of incision History of revision of total replacement of left knee joint Wears glasses Alcohol use History of steroid therapy Bladder disease Neuropathy Back pain Dietary restriction History of pain when walking Pain Myasthenia gravis Ambulates with cane Rheumatoid arthritis Low iron History of DVT (deep vein thrombosis) Hyperlipemia Difficulty swallowing History of hiatal hernia Gastric reflux Non-smoker Shortness of breath on exertion Chronic cough PONV (postoperative nausea and vomiting) Leg cramps History of edema History of stress test Hypertension Thyroid disease Cataracts, bilateral History of UTI Arthritis Home Medications ?Medication ?Instructions ?Recorded ?Last Taken ?Type folic acid 1 mg tablet 1 mg PO DAILY supplement 10/13/13 06/06/22 History atorvastatin 10 mg tablet 5 mg PO .QOD Cholesterol 09/06/21 06/26/24 18:45 History cholecalciferol (vitamin D3) 50 50 mcg PO DAILY supplement 09/06/21 06/27/24 History mcg (2,000 unit) capsule glimepiride 4 mg tablet 4 mg PO BID blood sugar 09/06/21 06/27/24 History ascorbic acid (vitamin C) 500 mg 500 mg PO DAILY supplement 02/06/22 06/27/24 History tablet (Vitamin C) dapagliflozin propanediol 5 mg 10 mg PO DAILY blood sugar 05/25/22 06/06/22 History tablet (Farxiga) levothyroxine 125 mcg tablet 100 mcg PO DAILY thyroid 05/25/22 06/27/24 History pregabalin 75 mg capsule (Lyrica) 100 mg PO TID pain 05/25/22 06/06/22 History hydrochlorothiazide 12.5 mg tablet 12.5 mg PO DAILY Blood pressure 06/07/22 Unknown History vibegron 75 mg tablet (Gemtesa) 75 mg PO DAILY Overactive bladder 12/04/22 Unknown History metformin 500 mg tablet,extended 1,000 mg PO BID Diabetes 06/27/24 06/27/24 05:30 History release 24 hr polysaccharide iron complex 150 mg 65 mg PO QODAY Supplement 06/27/24 Unknown History iron capsule (Ferrex) losartan 100 mg tablet 100 mg PO DAILY bp 30 days #30 tabs 07/15/24 Unknown Rx oxycodone 5 mg tablet 5 - 10 mg (1 - 2 x 5 mg) PO Q4H 07/15/24 Unknown Rx PRN PRN Pain Score 4-10 7 days #84 tabs potassium chloride 20 mEq 20 meq PO DAILYCM supplement 30 07/15/24 Unknown Rx tablet,extended release(part/cryst) days #30 tabs arginine 7 gram-glutam 7 1 packet PO DAILY supplement 09/24/24 Unknown History gram-CaHMB 1.5 [id number] oral pwd pkt (Papa (with collagen)) Allergy/AdvReac Type Severity Reaction Status Date / Time latex Allergy Severe Other Verified 09/23/24 16:23 shellfish derived Allergy Severe PASSED Verified 09/23/24 16:23 OUT, DIARRHEA adhesive Allergy Mild Rash Verified 09/23/24 16:23 levofloxacin AdvReac Intermediate WEAK, Verified 09/23/24 16:23 NAUSEA povidone AdvReac Mild Hives Verified 09/23/24 16:23 Surgical History History of bilateral cataract extraction History of colonoscopy S/P insertion of spinal cord stimulator History of partial thyroidectomy History of appendectomy History of left knee surgery History of hysterectomy History of cholecystectomy Social History household members: spouse Smoking Status: Never smoker Electronic Cigarette Use: not used second hand exposure: No alcohol intake: current alcohol intake frequency: a few times a month Alcohol type: wine substance use type: does not use ROS ROS Narrative As stated in history of present illness otherwise negative Physical Exam Narrative Alert and responsive does not appear toxic lungs are clear heart exam S1-S2 no murmurs appreciated abdomen soft nontender left the erythema appears to have receded nicely. No signs of deep infection. Lab / Micro Data 09/26/24 06:02 09/26/24 06:02 Labs: Laboratory Results - last 24 hr 09/26/24 06:02: WBC 7.1, RBC 3.92 L, Hgb 10.5 L, Hct 33.5 L, MCV 85.5, MCH 26.8 L, MCHC 31.3 L, RDW Std Deviation 50.6 H, RDW Coeff of April 16.2 H, Plt Count 335, MPV 10.8, Immature Gran % (Auto) 0.300, Neut % (Auto) 58.4, Lymph % (Auto) 20.8, Wheeler % (Auto) 11.5 H, Eos % (Auto) 7.9 H, Baso % (Auto) 1.1 H, Absolute Neuts (auto) 4.2, Absolute Lymphs (auto) 1.48, Nucleated RBC % 0, Sodium 141, Potassium 3.9, Chloride 110 H, Carbon Dioxide 27.0, Anion Gap 4 L, BUN 24 H, Creatinine 0.81, Estim Creat Clear Calc 58.43, Est GFR (MDRD) Af Amer 88, Est GFR (MDRD) Non-Af 73, BUN/Creatinine Ratio 29.5 H, Glucose 138 H, Calcium 9.1 Micro: Microbiology 09/23/24 07:45 Wound - Knee Gram Stain - Final 09/23/24 07:45 Wound - Knee Wound Culture - Preliminary GNR lactose [employer] 09/23/24 07:45 Wound - Knee Skin and Soft Tissue MRSA/MSSA (PCR - Final
--- NOTE | 2024-09-26 13:10 | CASEMGMT ---
Addendum entered by Shi Mobley 09/26/24 14:00: Dr. Cuenca called in pt atb prescribed by Dr. Pang, pt aware and gave rx back. Original Note: Received rx for po atb from Dr. Pang. RN CM into pt room, gave copy original rx and filed copy in chart. Pt denies any homegoing needs at this time. She will continue her outpt therapy and wound vac changes at [facility].
--- NOTE | 2024-09-26 13:52 | DS.PCM_ITS ---
Providers Date of Admission: 09/23/24 Date of Discharge: 09/26/24 Primary Care Physician: Dr. Cherelle Thompson MD Consultations 09/23/24 22:31 Consult: Onc/Wound/sodium chlorite operator Routine Comment: Reason for Consult:: vac 09/24/24 09:35 Consult: Infectious Disease Routine Consulting Provider: Emir Pang Reason for Consult: WOUND EMERGENT Consult: No MD Notified: Yes Date Notified: 09/24/24 Time Notified: 10:28 Method of Notification: office 09/24/24 09:38 Consult: Onc/Wound/sodium chlorite operator Routine Comment: Reason for Consult:: WOUND VAC Reason For Visit: LLE CELLULITIS Diagnosis Discharge Diagnosis (1) Left leg cellulitis: Status: Acute Code(s): L03.116 - Cellulitis of left lower limb Plan Patient is a 73-year-old lady with multiple comorbidities including left knee wound for which patient has a wound VAC was sent to the ED after she was found to have erythema and swelling involving the left lower extremity and assessment of cellulitis was made admitted to regular nursing floor for further management 1. Left lower extremity cellulitis ? Patient admitted to regular nursing floor started on vancomycin and Zosyn. Response to therapy being monitored with demarcation of the area of involvement as well as vitals and WBC count ? 09/25/2024;Area of cellulitis significantly improved patient however had cultures drawn on admission; results of which are still pending ? 09/26/2024 Patient seen requesting to be discharged home. Her preliminary wound cultures so far positive GNR lactose card assembler. Consult has been placed to ID the day prior awaiting input ? Patient was seen in consultation by Dr. Emir Pang MD who recommended for patient to be discharged on cephalexin 500 mg 4 times daily for 7 days 2. Chronic wound involving the left knee ? Following surgical intervention with subsequent wound dehiscence and delayed healing.. Patient has wound VAC in place. Wound care nurse consulted ? 09/26/2024; patient will continue to follow-up at the wound care center 3. Hypokalemia ? Corrected per protocol 4. Hypoglycemia ? Secondary to use of sulfonylurea. Patient glucose on admission was 32 offending medications held 5. Diabetes mellitus type II -Patient presented with complications including hypoglycemia, patient's oral hypoglycemics held. Placed on Accu-Cheks a.c. and at bedtime and covered with sliding scale insulin ? Adjustment made to patient oral hypoglycemic agent on discharge with discontinuation of glimepiride 6. Hypothyroidism ? Patient is on levothyroxine home dose continued 7. Hypertension ? Blood pressure controlled, home medications continued with dose adjustment as needed 8. Peripheral neuropathy ? Patient is on Lyrica 9. Chronic iron deficiency anemia ? Patient is on iron supplement continue 10. Dyslipidemia ?Patient is on statin therapy, continued at home dose 11. Dyslipidemia ?Patient is on statin therapy, continued at home dose Time spent in the patient's overall evaluation,decision-making process, review of diagnostic data, adjustment of management, discussion with other providers, nursing nursing and ancillary staff involved in patient's care documentation, 38 Minutes Medications at Discharge Home Medications folic acid 1 mg tablet 1 mg PO DAILY supplement 10/13/13 atorvastatin 10 mg tablet 5 mg PO .QOD Cholesterol 09/06/21 cholecalciferol (vitamin D3) 50 mcg (2,000 unit) capsule 50 mcg PO DAILY supplement 09/06/21 ascorbic acid (vitamin C) 500 mg tablet (Vitamin C) 500 mg PO DAILY supplement 02/06/22 dapagliflozin propanediol 5 mg tablet (Farxiga) 10 mg PO DAILY blood sugar 05/25/22 levothyroxine 125 mcg tablet 100 mcg PO DAILY thyroid 05/25/22 pregabalin 75 mg capsule (Lyrica) 100 mg PO TID pain 05/25/22 hydrochlorothiazide 12.5 mg tablet 12.5 mg PO DAILY Blood pressure 06/07/22 vibegron 75 mg tablet (Gemtesa) 75 mg PO DAILY Overactive bladder 12/04/22 metformin 500 mg tablet,extended release 24 hr 1,000 mg PO BID Diabetes 06/27/24 polysaccharide iron complex 150 mg iron capsule (Ferrex) 65 mg PO QODAY Supplement 06/27/24 losartan 100 mg tablet 100 mg PO DAILY bp 30 days #30 tabs 07/15/24 oxycodone 5 mg tablet 5 - 10 mg (1 - 2 x 5 mg) PO Q4H PRN PRN Pain Score 4-10 7 days #84 tabs 07/15/24 potassium chloride 20 mEq tablet,extended release(part/cryst) 20 meq PO DAILYCM supplement 30 days #30 tabs 07/15/24 arginine 7 gram-glutam 7 gram-CaHMB 1.5 avkw-justi-mb-min oral pwd pkt (Papa (with collagen)) 1 packet PO DAILY supplement 09/24/24 cephalexin 500 mg capsule 500 mg PO Q6H 7 days #28 caps 09/26/24 Physical Exam Narrative GENERAL: cooperative HEENT: Atraumatic; normocephalic EYES; Anicteric, Normal Conjunctiva NECK; supple, normal thyroid, RESPIRATORY: Diminished to auscultation CARDIOVASCULAR: Regular S1 S2, GI: soft, normoactive bowel sounds, : No Renal angle tenderness; EXTREMITIES: No edema, no clubbing, MUSCULOSKELETAL: Left knee with a wound VAC NEURO: Awake; no lateralizing signs. SKIN: An area of erythema involving the distal LLE?resolved PSYCH; Flat affect Weight / BMI Weight Weight: 82.5 kg Body Mass Index (BMI) 34.3 ABG / Lab / Microbiology Data 09/26/24 06:02 09/26/24 06:02 Laboratory: Laboratory Results - last 24 hr 09/26/24 06:02: WBC 7.1, RBC 3.92 L, Hgb 10.5 L, Hct 33.5 L, MCV 85.5, MCH 26.8 L, MCHC 31.3 L, RDW Std Deviation 50.6 H, RDW Coeff of April 16.2 H, Plt Count 335, MPV 10.8, Immature Gran % (Auto) 0.300, Neut % (Auto) 58.4, Lymph % (Auto) 20.8, [place] % (Auto) 11.5 H, Eos % (Auto) 7.9 H, Baso % (Auto) 1.1 H, Absolute Neuts (auto) 4.2, Absolute Lymphs (auto) 1.48, Nucleated RBC % 0, Sodium 141, Potassium 3.9, Chloride 110 H, Carbon Dioxide 27.0, Anion Gap 4 L, BUN 24 H, Creatinine 0.81, Estim Creat Clear Calc 58.43, Est GFR (MDRD) Af Amer 88, Est GFR (MDRD) Non-Af 73, BUN/Creatinine Ratio 29.5 H, Glucose 138 H, Calcium 9.1 Microbiology: Microbiology 09/23/24 07:45 Wound - Knee Gram Stain - Final 09/23/24 07:45 Wound - Knee Wound Culture - Preliminary GNR lactose card assembler 09/23/24 07:45 Wound - Knee Skin and Soft Tissue MRSA/MSSA (PCR - Final D/C Instructions Discharge Diet: 1800 Calorie Control Diet Discharge Activity: Return to Normal Activity Call your doctor if you observe: Fever of 101 or Higher, Shortness of breath, Fainting spells and Chest pain DC O2, CPAP, BIPAP Needs Home O2 Discharge instructions: No Meaningful Use Info Meaningful Use Meaningful Use Diagnoses (Choose all that apply): None applicable Ischemic Stroke Statin Dosing Therapy Reference: STATIN DOSE THERAPY REFERENCE: * Patients > 75 years receive moderate or high dose statin therapy. * Patients 75 years or YOUNGER should receive HIGH intensity statin dose unless contraindicated. You will be required to document reason for non-treatment if statin daily dose does not meet guidelines. HIGH DOSE STATIN THERAPY DAILY Atorvastatin > than or = to 40 mg Rosuvastatin > than or = to 20 mg Amlodipine + Atorvastatin > than or = to 2.5/40 mg Ezetimibe + Simvastatin 10/80 mg Simvastatin 80mg Discharge Plan Admission Admit Date/Time: 09/23/24 20:55 Attending Provider: Isreal Cuenca Primary Care Provider: Cherelle Thompson Consulting Providers: Enriqueta Knight; Emir Pang Discharge Orders/Prescriptions Prescriptions: New cephalexin 500 mg capsule 500 mg PO Q6H 7 Days Qty: 28 0RF Continued cholecalciferol (vitamin D3) 50 mcg (2,000 unit) capsule 50 mcg PO DAILY levothyroxine 125 mcg tablet 100 mcg PO DAILY pregabalin [Lyrica] 75 mg capsule 100 mg PO TID Gemtesa 75 mg tablet 75 mg PO DAILY folic acid 1 MG tablet 1 mg PO DAILY Patient Comments: SUPPLEMENT atorvastatin 10 mg tablet 5 mg PO .QOD ascorbic acid (vitamin C) [Vitamin C] 500 mg Tablet 500 mg PO DAILY dapagliflozin propanediol [Farxiga] 5 mg tablet 10 mg PO DAILY hydrochlorothiazide 12.5 mg tablet 12.5 mg PO DAILY metformin 500 mg tablet extended release 24 hr 1,000 mg PO BID polysaccharide iron complex [Ferrex 150] 150 mg iron capsule 65 mg PO QODAY potassium chloride 20 mEq Tablet,Er Particles/Crystals 20 meq PO DAILYCM 30 Days Qty: 30 0RF losartan 100 mg Tablet 100 mg PO DAILY 30 Days Qty: 30 0RF oxycodone 5 mg Tablet 5 - 10 mg PO Q4H PRN PRN (Reason: Pain Score 4-10) 7 Days Qty: 84 0RF Papa (with collagen) 7-7-1.5 gram Powder In Packet 1 packet PO DAILY Discontinued glimepiride 4 mg tablet 4 mg PO BID Referrals / Follow Up: Cherelle Thompson MD [Primary Care Provider] - Within 1 Week Disposition Disposition (needs filled in before D/C Order can be placed): Home, Self Care Charges/Coding Visit Charges Inpatient E&M: 06008 Disch Hosp >30min
[2024-09-26 14:36] VITALS: BP 124/64; PULSE 69; RESP 18; TEMP 36.8; O2SAT 98
== END 2024-09-26 14:30 | disposition home or self-care (01) | DRG 623 ==
LOC: ED 20:52 → MS3 21:05
PROVIDERS: Admitting Provider Internal Medicine; Emergency Provider Emergency Medicine; PCP Internal Medicine; Visit Provider Internal Medicine
DX: E11.628 Type 2 diabetes mellitus with other skin complications (principal); L03.116 Cellulitis of left lower limb; E87.1 Hypo-osmolality and hyponatremia; E11.52 Type 2 diabetes mellitus with diabetic peripheral angiopathy with gangrene; L97.122 Non-pressure chronic ulcer of left thigh with fat layer exposed; D50.9 Iron deficiency anemia, unspecified; E11.42 Type 2 diabetes mellitus with diabetic polyneuropathy; B96.89 Other specified bacterial agents as the cause of diseases classified elsewhere; Z66 Do not resuscitate; M06.9 Rheumatoid arthritis, unspecified; I10 Essential (primary) hypertension; E89.0 Postprocedural hypothyroidism; G70.00 Myasthenia gravis without (acute) exacerbation; E11.649 Type 2 diabetes mellitus with hypoglycemia without coma; E11.622 Type 2 diabetes mellitus with other skin ulcer; E78.5 Hyperlipidemia, unspecified; K21.9 Gastro-esophageal reflux disease without esophagitis; E87.6 Hypokalemia; T81.31XD Disruption of external operation (surgical) wound, not elsewhere classified, subsequent encounter; S81.002D Unspecified open wound, left knee, subsequent encounter; N32.81 Overactive bladder; Z90.710 Acquired absence of both cervix and uterus; Z79.84 Long term (current) use of oral hypoglycemic drugs; Z79.01 Long term (current) use of anticoagulants; Z86.718 Personal history of other venous thrombosis and embolism; Z79.2 Long term (current) use of antibiotics; Z96.652 Presence of left artificial knee joint; Z79.891 Long term (current) use of opiate analgesic; R05.3 Chronic cough; Z88.8 Allergy status to other drugs, medicaments and biological substances; Z96.82 Presence of neurostimulator; Y69 Unspecified misadventure during surgical and medical care
CPT/HCPCS: 11042; 11045; 36415; 80048; 80053; 80202; 82962; 83735; 84100; 85025; 85652; 86140; 87070; 87077; 87184; 87186; 87205; 87640; 93971; 94668; 97116; 97162; 97166; 97530; 97802; 99284; A4216

== ENCOUNTER 2024-10-21 13:45 | Outpatient (RCR) | payer MEDICARE, SELFPAY ==
[2024-09-24 00:18] VITALS: BP 107/87; PULSE 83; RESP 18; TEMP 36.2; BMI 34.1
[2024-09-30 14:41] VITALS: BP 133/69; PULSE 74; RESP 16; TEMP 36.8; BMI 34.1
--- NOTE | 2024-10-02 12:26 | WC ---
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
[2024-10-03 11:28] VITALS: BP 142/69; PULSE 61; RESP 16; TEMP 35.8; BMI 34.1
--- NOTE | 2024-10-05 16:32 | HP.PCM_ITS ---
History of Present Illness Date of Service: 09/30/24 Chief Complaint: Dehiscent, necrotic surgical wound of the left knee History of Wound: This is a 73-year-old female with a history of left total knee replacement many years ago, which has required several revisions. The most recent revision was performed on June 19, 2024, at the [facility]. This was the fourth left knee revision. Prior revisions required flap reconstruction, and the Plastic Surgery service was involved in the patient's most recent surgery. Postoperatively, the patient was placed on oral doxycycline, which is expected to continue for 3 months. The patient's left lower extremity was locked in extension for 2 weeks. She is now weightbearing on the involved limb. She was admitted to the Transitional Care Unit at [facility] for several weeks postoperatively on June 27, 2024. She has returned to home, with optometric assistant care from her . The patient developed a surgical wound dehiscence and marjorie necrosis and gangrene at the site of her incision. A wound VAC was used initially at the surgical site, but the patient had been using Xeroform more recently. The patient suffers from multiple pre-existing medical conditions, listed herein. She does not smoke. She is using Papa as a nutritional supplement. Her BMI is 34.1. 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 Dehiscence of incision History of revision of total replacement of left knee joint Wears glasses Alcohol use History of steroid therapy Bladder disease Neuropathy Back pain Dietary restriction History of pain when walking Pain Myasthenia gravis Ambulates with cane Rheumatoid arthritis Low iron History of DVT (deep vein thrombosis) Hyperlipemia Difficulty swallowing History of hiatal hernia Gastric reflux Non-smoker Shortness of breath on exertion Chronic cough PONV (postoperative nausea and vomiting) Leg cramps History of edema History of stress test Hypertension Thyroid disease Cataracts, bilateral History of UTI Arthritis Home Medications ?Medication ?Instructions ?Recorded ?Last Taken ?Type folic acid 1 mg tablet 1 mg PO DAILY supplement 10/13/13 06/06/22 History atorvastatin 10 mg tablet 5 mg PO .QOD Cholesterol 09/06/21 06/26/24 18:45 History cholecalciferol (vitamin D3) 50 50 mcg PO DAILY supplement 09/06/21 06/27/24 History mcg (2,000 unit) capsule ascorbic acid (vitamin C) 500 mg 500 mg PO DAILY supplement 02/06/22 06/27/24 History tablet (Vitamin C) dapagliflozin propanediol 5 mg 10 mg PO DAILY blood sugar 05/25/22 06/06/22 History tablet (Farxiga) levothyroxine 125 mcg tablet 100 mcg PO DAILY thyroid 05/25/22 06/27/24 History pregabalin 75 mg capsule (Lyrica) 100 mg PO TID pain 05/25/22 06/06/22 History hydrochlorothiazide 12.5 mg tablet 12.5 mg PO DAILY Blood pressure 06/07/22 Unknown History vibegron 75 mg tablet (Gemtesa) 75 mg PO DAILY Overactive bladder 12/04/22 Unknown History metformin 500 mg tablet,extended 1,000 mg PO BID Diabetes 06/27/24 06/27/24 05:30 History release 24 hr polysaccharide iron complex 150 mg 65 mg PO QODAY Supplement 06/27/24 Unknown History iron capsule (Ferrex) losartan 100 mg tablet 100 mg PO DAILY bp 30 days #30 tabs 07/15/24 Unknown Rx oxycodone 5 mg tablet 5 - 10 mg (1 - 2 x 5 mg) PO Q4H 07/15/24 Unknown Rx PRN PRN Pain Score 4-10 7 days #84 tabs potassium chloride 20 mEq 20 meq PO DAILYCM supplement 30 07/15/24 Unknown Rx tablet,extended release(part/cryst) days #30 tabs arginine 7 gram-glutam 7 1 packet PO DAILY supplement 09/24/24 Unknown History gram-CaHMB 1.5 nmsa-wttou-rr-min oral pwd pkt (Papa (with collagen)) cephalexin 500 mg capsule 500 mg PO Q6H 7 days #28 caps 09/26/24 Unknown Rx ciprofloxacin HCl 500 mg tablet 500 mg PO BID #14 tabs 09/29/24 Unknown Rx (Cipro) Allergy/AdvReac Type Severity Reaction Status Date / Time latex Allergy Severe Other Verified 09/23/24 16:23 shellfish derived Allergy Severe PASSED Verified 09/23/24 16:23 OUT, DIARRHEA adhesive Allergy Mild Rash Verified 09/23/24 16:23 levofloxacin AdvReac Intermediate WEAK, Verified 09/23/24 16:23 NAUSEA povidone AdvReac Mild Hives Verified 09/23/24 16:23 Surgical History History of bilateral cataract extraction History of colonoscopy S/P insertion of spinal cord stimulator History of partial thyroidectomy History of appendectomy History of left knee surgery History of hysterectomy History of cholecystectomy Social History household members: spouse Smoking Status: Never smoker Electronic Cigarette Use: not used second hand exposure: No alcohol intake: current alcohol intake frequency: a few times a month Alcohol type: wine substance use type: does not use Vital Signs Vital Signs Vital Signs: Weight Weight: 180 lb 13.313 oz Body Mass Index (BMI) 34.1 Physical Exam Const alert, oriented x3, no apparent distress, no limitations, healthy appearing and well nourished General Appearance: cooperative, comfortable, well kempt and well developed Orientation / Consciousness: awake, oriented to person, oriented to place and oriented to time Exam Limitations: no limitations HEENT normocephalic, head/scalp atraumatic and hearing grossly normal bilaterally Head and Scalp: normal to inspection, normocephalic and atraumatic Face and Sinus: normal facial exam Nose: external nose normal External Ear: external ears normal Eyes EOMs intact bilaterally General Eye: normal appearance of both eyes Neck full ROM Resp normal respiratory effort, normal air movement, no retractions and no use of accessory muscles Effort and Inspection: able to speak in complete sentences Extremity no calf tenderness General Extremity: Negative for clubbing or cyanosis Skin Wound Narrative: A dehiscent longitudinal surgical incision is noted overlying the left knee. The dehiscence extends through all layers and into the subcutaneous tissues. There is no odor or drainage. There is no overt signs of infection or cellulitis. Dimensions are documented elsewhere. The size and depth of the wound appear to be diminishing. Most of the open wound demonstrates healthy, pink granulation tissue, which continues to increase weekly. The margins of the wound appear well beveled, with evidence of peripheral epithelialization. A small portion of the wound, centrally, appears to extend down to the underlying fascia, though this appears to be decreasing in size. The small satellite wound superior to the primary wound is now completely healed and epithelialized. Hair: normal Neuro oriented x3, CN's II-XII intact bilaterally, moves all extremities, no focal motor deficits and no sensory deficits noted Sensorium / Orientation: awake, alert, oriented to person, oriented to place and oriented to time Cranial Nerves: CN normal except as noted Speech: speech normal Psych Appearance: grossly normal and appropriate Attitude: calm Activity / Motor Behavior: appropriate eye contact Speech: normal speech Mood & Affect: euthymic mood Thought Process: normal thought process Thought Content: normal thought content Attention / Concentration: attention grossly intact Debridement Note Debridement Note Wound debrided: Dehiscent left knee incision with bioburden and nonviable tissue Laterality: Left Type of Debridement: Excisional debridement Anesthesia Used: 5% Lidocaine Gel Depth: Down to and including healthy tissue and in the subcutaneous layer Percentage of wound debrided: 100 Instrument Used: 3mm curette Tissue Removed: Bioburden and nonviable tissue Severity: Fat Layer Exposed Amount of bleeding with debridement: Mild Bleeding Controlled with: Compression and gauze Patient tolerated procedure: Patient tolerated procedure well Post-Debridement Measurements and Additional Note: Post-Debridement Measurements/Treatment - Nurse 1 - General Ulcer Assessment Start: 09/30/24 14:41 Freq: Status: Active Protocol: GINA.JAMI Activity Type Activity Date Activity User E-sign Co-sign Detail Recorded Client Recorded Date Recorded By Document 09/30/24 14:41 KW [id number] 09/30/24 14:55 KW Document 10/03/24 11:28 KW [id number] 10/03/24 11:33 KW 09/30/24 10/03/24 14:41 11:28 - Today's Visit Information Type of service Follow-up Visit Nurse-only (Physician/SQUIRT MACHINE 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 Visit ) Arrival Mode Ambulatory, Walker Accompanied by Patient Identification Verified (Name & Yes Yes ) Height and Weight Body Mass Index (BMI) 34.1 34.1 BMI Classification Obese Obese Vital Signs Temperature (97.8 F-99.1 F) 98.3 F 96.5 F L Temperature Source Temporal Temporal Pulse Rate (60-100) 74 61 Pulse Location Monitor Monitor Respiratory Rate (12-18) 16 16 Respiratory rate source Observation Monitor Oxygen Delivery Method Room Air Room Air Blood Pressure (90/60-120/80) 133/69 H 142/69 H Blood Pressure Mean 90 93 Source Monitor Monitor Position Sitting Semi-Fowlers Blood Pressure Location Left Arm Right Arm History Since Last Visit- (Skip if this is Patient's initial visit) Have you changed medications since your No No last visit? Any new allergies or adverse reactions No No Had a fall/change in ADL's that may No increase risk of falls Signs or symptoms of abuse and/or No No neglect since last visit Have you been in the hospital since your Yes No last visit? Has dressing in place as prescribed Yes Yes Has compression in place as prescribed Yes N/A Has offloadiing in place as prescribed N/A N/A Experienced any changes in pain level or No No management Left Footwear Regular Shoe Regular Shoe Right Footwear Regular Shoe Regular Shoe Pain Scale: 0-10 Numeric Is Patient Pain Free? Yes Yes WC - Nurse 1 - General Ulcer Measurement Start: 09/30/24 14:41 Freq: Status: Active Protocol: Activity Type Activity Date Activity User E-sign Co-sign Detail Recorded Client Recorded Date Recorded By Document 09/30/24 14:41 GORDO [id number] 09/30/24 14:55 KW 09/30/24 14:41 Wound Center Nurse 1 #1,.L knee -Current Size (cm) - Length 8 -Current Size (cm) - Width 1.8 -Current Size (cm) - Depth 0.5 -Total Square Cm 14.4 -Date of Last Picture (Recall this 09/30/24 field) -Exudate Amt Medium -Exudate Type Serosanguineous -Wound Margin Distinct, Outline Attached -Granulation Amt Large (67-100%) -Granulation Quality Red -Necrosis Amt Small (1-33%) -Necrotic Tissue Type Adherent Slough -Texture (Anali-wound Skin Appearance) Assessed -Moisture (Anali-wound Skin Appearance) Assessed -Color (Anali-wound Skin Appearance) Assessed -Temperature (Anali-wound Skin No Abnormality Appearance) (Pt Warm) -Tenderness on Palpation (Anali-wound No Skin Appearance) -Ulcer Cleansing Soap and Water -Anesthetic Used 5% Lidocaine Gel WC - Nurse 2 - General Ulcer CM Notes Start: 09/30/24 14:41 Freq: Status: Active Protocol: Activity Type Activity Date Activity User E-sign Co-sign Detail Recorded Client Recorded Date Recorded By Document 09/30/24 15:19 DS [id number] 09/30/24 15:23 DS 09/30/24 15:19 Wound Center Nurse 2 -Time 15:19 -Correct Patient Yes -Correct Side, Site, Position Yes -Correct Procedure Yes -Procedure Performed Yes -Type of Procedure Debridement -Clinical Debridement Subcutaneous -Tissue Removed Subcutaneous -Post Debridement (cm) - Length 8.5 -Post Debridement (cm) - Width 2.0 -Post Debridement (cm) - Depth 0.6 -Total Square (Post) (cm) 17.00 -Area of Debridement (cm) - Length 8.5 -Area of Debridement (cm) - Width 2.0 -Total Square (Area) (cm) 17.00 -Tunneling No -Undermining/Tunneling No -Circular Undermining No -Wound/Ulcer Outcome Not Healed -Ulcer Cleansing Rinsed/ Irrigated with Saline -Foul Odor after Cleansing No -Bioengineered Tissue No -Bleeding Controlled with Pressure -Treatment Response Procedure Tolerated Well -Debridement - Subq, 1st 20sq cm Yes Pain Scale: 0-10 Numeric Is Patient Pain Free? Yes - Nurse 3 - General Ulcer D/C NN Start: 09/30/24 14:41 Freq: Status: Active Protocol: Activity Type Activity Date Activity User E-sign Co-sign Detail Recorded Client Recorded Date Recorded By Document 09/30/24 15:51 RB [id number] 09/30/24 15:52 RB Document 10/03/24 11:28 KW [id number] 10/03/24 11:33 KW 09/30/24 10/03/24 15:51 11:28 Wound Care Center Nurse 3 #1,.L knee -Ulcer Cleansing Rinsed/ Soap and Water Irrigated with Saline -Negative Pressure Wound Therapy Continue Continue -Setting (mmHg) 125 125 -Negative Pressure is Continuous Continuous -NPWT Application Charge NPWT & NPWT </= 50 sq Debridement (nc cm ($) ) Left -Compression Wrap Randy Wrap -Other randy Treatment Response Procedure Tolerated Well Vital Signs Temperature (97.8 F-99.1 F) 96.5 F L Temperature Source Temporal Pulse Rate (60-100) 61 Pulse Location Monitor Respiratory Rate (12-18) 16 Respiratory rate source Monitor Oxygen Delivery Method Room Air Blood Pressure (90/60-120/80) 142/69 H Blood Pressure Mean 93 Source Monitor Position Semi-Fowlers Blood Pressure Location Right Arm Pain Scale: 0-10 Numeric Is Patient Pain Free? Yes Yes WC - Visit Discharge Discharge Condition Stable Stable Ambulatory Status Ambulatory, Ambulatory, Walker Walker Transportation Private Auto Private Auto Medication Reconcilliation completed & No No provided to patient/care provider Clinical Summary of Care Provided Yes Yes Lab / Micro Data Attestation: I reviewed the patient's lab results. Labs: Laboratory Tests 09/26/24 06:02 WBC 7.1 Hgb 10.5 L Hct 33.5 L Plt Count 335 Sodium 141 Potassium 3.9 Chloride 110 H BUN 24 H Creatinine 0.81 Glucose 138 H Calcium 9.1 Charges/Coding Multi Select Codes Visit Charges Office Visit/Consults: 91076 OV L3 Est 20min Integumentary Integumentary CPT Codes: 35849 [place] subq tissue 20 sq cm/< Assessment/Plan Assessment/Plan (1) Non-pressure chronic ulcer of left thigh with fat layer exposed: CODE(S): L97.122 - Non-pressure chronic ulcer of left thigh with fat layer exposed (2) Dehiscence of incision: CODE(S): T81.31XA - Disruption of external operation (surgical) wound, not elsewhere classified, initial encounter QUALIFIERS: Encounter type: subsequent encounter Qualified Code(s): T81.31XD - Disruption of external operation (surgical) wound, not elsewhere classified, subsequent encounter (3) Gangrene associated with type 2 diabetes mellitus: CODE(S): E11.52 - Type 2 diabetes mellitus with diabetic peripheral angiopathy with gangrene (4) Status post revision of total replacement of left knee: CODE(S): Z96.652 - Presence of left artificial knee joint (5) Failed total left knee replacement: CODE(S): T84.093A - Other mechanical complication of internal left knee prosthesis, initial encounter QUALIFIERS: Encounter type: subsequent encounter Qualified Code(s): T84.093D - Other mechanical complication of internal left knee prosthesis, subsequent encounter (6) History of left knee surgery: CODE(S): Z98.890 - Other specified postprocedural states (7) Diabetes: CODE(S): E11.9 - Type 2 diabetes mellitus without complications QUALIFIERS: Diabetes mellitus type: type 2 (8) Diabetic polyneuropathy: CODE(S): E11.42 - Type 2 diabetes mellitus with diabetic polyneuropathy (9) GERD (gastroesophageal reflux disease): CODE(S): K21.9 - Gastro-esophageal reflux disease without esophagitis (10) Hyperlipemia: CODE(S): E78.5 - Hyperlipidemia, unspecified (11) Iron deficiency anemia: CODE(S): D50.9 - Iron deficiency anemia, unspecified (12) Essential (primary) hypertension: CODE(S): I10 - Essential (primary) hypertension (13) Debility: CODE(S): R53.81 - Other malaise (14) Status post total right knee replacement: CODE(S): Z96.651 - Presence of right artificial knee joint (15) Osteoarthritis: (16) History of DVT (deep vein thrombosis): CODE(S): Z86.718 - Personal history of other venous thrombosis and embolism (17) Dyslipidemia: CODE(S): E78.5 - Hyperlipidemia, unspecified (18) Hypothyroidism: CODE(S): E03.9 - Hypothyroidism, unspecified (19) Ocular myasthenia gravis: CODE(S): G70.00 - Myasthenia gravis without (acute) exacerbation (20) History of partial thyroidectomy: CODE(S): E89.0 - Postprocedural hypothyroidism (21) History of appendectomy: CODE(S): Z90.49 - Acquired absence of other specified parts of digestive tract (22) History of hysterectomy: CODE(S): Z90.710 - Acquired absence of both cervix and uterus (23) History of cholecystectomy: CODE(S): Z90.49 - Acquired absence of other specified parts of digestive tract (24) Non-smoker: CODE(S): Z78.9 - Other specified health status (25) History of hiatal hernia: CODE(S): Z87.19 - Personal history of other diseases of the digestive system (26) History of revision of total replacement of left knee joint: CODE(S): Z96.652 - Presence of left artificial knee joint (27) History of bilateral cataract extraction: CODE(S): Z98.41 - Cataract extraction status, right eye; Z98.42 - Cataract extraction status, left eye PLAN: Plan This is a 73-year-old female who underwent the fourth revision of a left total knee replacement on June 19, 2024. She developed gangrene, necrosis, and dehiscence at the surgical site. As a result, the patient presented for definitive evaluation and management with respect to her surgical wound. A large amount of necrotic and nonviable tissue has been eliminated from the site of the patient's surgical wound since her initial presentation. Negative pressure wound therapy has been initiated by means of the Wound VAC. The patient appears to be tolerating negative pressure wound therapy without difficulty, which appears to be having a positive effect on the patient's wound healing. There are increasing areas of healthy, pink granulation tissue. The wound appears to be decreasing in size and depth. It is noted that the patient was admitted to [facility] on September 23, 2024, and subsequently discharged on September 26, 2024. She initially presented due to concerns regarding a decrease in her blood sugars. However, initial evaluation in the hospital revealed a cellulitis involving her left leg. She was treated with intravenous Zosyn and vancomycin, and subsequently discharged on September 26, 2024, on cephalexin 500 mg p.o. 4 times daily for 7 days. However, at the time of discharge, the final culture results had not been completed, and the final result indicated the presence of Pseudomonas aeruginosa. Therefore, we have placed the patient on Cipro 500 mg p.o. twice daily for a total of 7 days, which is in accordance with the findings of the patient's culture and sensitivity results. We are to continue the wound VAC, which will be applied twice weekly, at a setting of 125 mmHg continuous negative pressure. The patient has been encouraged to optimize her nutritional intake, as well as her diabetes management. She has been encouraged to continue taking Papa as a nutritional supplement. She is to coordinate with her primary care physician with regard to diabetes management. She has been encouraged to elevate her left lower extremity to prevent and minimize swelling. Elevation is to be to heart level, during both daytime and nighttime hours. Avoidance of prolonged idle sitting has been encouraged. Activity as tolerated encouraged, within the boundaries as set by her orthopedic surgeon. Tubigrip's have been dispensed for compression purposes. The patient is to follow-up in 1 week for reevaluation. Consideration has been given to the implementation of a cellular tissue product, and insurance preauthorization will be sought. If approved, the cellular tissue product will be used in conjunction with negative pressure wound therapy. The patient is to follow-up in our clinic in 1 week. Total time: 28 minutes
[2024-10-07 14:57] VITALS: RESP 18; BMI 34.1
--- NOTE | 2024-10-08 09:19 | WC ---
PHOTO 10/07/24 LEFT KNEE
--- NOTE | 2024-10-08 11:14 | PCM.WC.HP ---
History of Present Illness Date of Service: 10/07/24 Chief Complaint: Dehiscent, necrotic surgical wound of the left knee History of Wound: This is a 73-year-old female with a history of left total knee replacement many years ago, which has required several revisions. The most recent revision was performed on June 19, 2024, at the [facility]. This was the fourth left knee revision. Prior revisions required flap reconstruction, and the Plastic Surgery service was involved in the patient's most recent surgery. Postoperatively, the patient was placed on oral doxycycline, which is expected to continue for 3 months. The patient's left lower extremity was locked in extension for 2 weeks. She is now weightbearing on the involved limb. She was admitted to the Transitional Care Unit at [facility] for several weeks postoperatively on June 27, 2024. She has returned to home, with assistant maintenance manager care from her . The patient developed a surgical wound dehiscence and marjorie necrosis and gangrene at the site of her incision. A wound VAC was used initially at the surgical site, but the patient had been using Xeroform more recently. The patient suffers from multiple pre-existing medical conditions, listed herein. She does not smoke. She is using Papa as a nutritional supplement. Her BMI is 34.1. 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 Dehiscence of incision History of revision of total replacement of left knee joint Wears glasses Alcohol use History of steroid therapy Bladder disease Neuropathy Back pain Dietary restriction History of pain when walking Pain Myasthenia gravis Ambulates with cane Rheumatoid arthritis Low iron History of DVT (deep vein thrombosis) Hyperlipemia Difficulty swallowing History of hiatal hernia Gastric reflux Non-smoker Shortness of breath on exertion Chronic cough PONV (postoperative nausea and vomiting) Leg cramps History of edema History of stress test Hypertension Thyroid disease Cataracts, bilateral History of UTI Arthritis Home Medications ?Medication ?Instructions ?Recorded ?Last Taken ?Type folic acid 1 mg tablet 1 mg PO DAILY supplement 10/13/13 06/06/22 History atorvastatin 10 mg tablet 5 mg PO .QOD Cholesterol 09/06/21 06/26/24 18:45 History cholecalciferol (vitamin D3) 50 50 mcg PO DAILY supplement 09/06/21 06/27/24 History mcg (2,000 unit) capsule ascorbic acid (vitamin C) 500 mg 500 mg PO DAILY supplement 02/06/22 06/27/24 History tablet (Vitamin C) dapagliflozin propanediol 5 mg 10 mg PO DAILY blood sugar 05/25/22 06/06/22 History tablet (Farxiga) levothyroxine 125 mcg tablet 100 mcg PO DAILY thyroid 05/25/22 06/27/24 History pregabalin 75 mg capsule (Lyrica) 100 mg PO TID pain 05/25/22 06/06/22 History hydrochlorothiazide 12.5 mg tablet 12.5 mg PO DAILY Blood pressure 06/07/22 Unknown History vibegron 75 mg tablet (Gemtesa) 75 mg PO DAILY Overactive bladder 12/04/22 Unknown History metformin 500 mg tablet,extended 1,000 mg PO BID Diabetes 06/27/24 06/27/24 05:30 History release 24 hr polysaccharide iron complex 150 mg 65 mg PO QODAY Supplement 06/27/24 Unknown History iron capsule (Ferrex) losartan 100 mg tablet 100 mg PO DAILY bp 30 days #30 tabs 07/15/24 Unknown Rx oxycodone 5 mg tablet 5 - 10 mg (1 - 2 x 5 mg) PO Q4H 07/15/24 Unknown Rx PRN PRN Pain Score 4-10 7 days #84 tabs potassium chloride 20 mEq 20 meq PO DAILYCM supplement 30 07/15/24 Unknown Rx tablet,extended release(part/cryst) days #30 tabs arginine 7 gram-glutam 7 1 packet PO DAILY supplement 09/24/24 Unknown History gram-CaHMB 1.5 [id number]-[id number]-md-min oral pwd pkt (Papa (with collagen)) cephalexin 500 mg capsule 500 mg PO Q6H 7 days #28 caps 09/26/24 Unknown Rx ciprofloxacin HCl 500 mg tablet 500 mg PO BID #14 tabs 09/29/24 Unknown Rx (Cipro) Allergy/AdvReac Type Severity Reaction Status Date / Time latex Allergy Severe Other Verified 09/23/24 16:23 shellfish derived Allergy Severe PASSED Verified 09/23/24 16:23 OUT, DIARRHEA adhesive Allergy Mild Rash Verified 09/23/24 16:23 levofloxacin AdvReac Intermediate WEAK, Verified 09/23/24 16:23 NAUSEA povidone AdvReac Mild Hives Verified 09/23/24 16:23 Surgical History History of bilateral cataract extraction History of colonoscopy S/P insertion of spinal cord stimulator History of partial thyroidectomy History of appendectomy History of left knee surgery History of hysterectomy History of cholecystectomy Social History household members: spouse Smoking Status: Never smoker Electronic Cigarette Use: not used second hand exposure: No alcohol intake: current alcohol intake frequency: a few times a month Alcohol type: wine substance use type: does not use Vital Signs Vital Signs Vital Signs: 10/07/24 14:57 Temperature Source Temporal Respiratory Rate 18 Blood Pressure Source Monitor Blood Pressure Position Sitting Blood Pressure Location Left Arm Oxygen Delivery Method Room Air Weight Weight: 180 lb 13.313 oz Body Mass Index (BMI) 34.1 Physical Exam Const alert, oriented x3, no apparent distress, no limitations, healthy appearing and well nourished General Appearance: cooperative, comfortable, well kempt and well developed Orientation / Consciousness: awake, oriented to person, oriented to place and oriented to time Exam Limitations: no limitations HEENT normocephalic, head/scalp atraumatic and hearing grossly normal bilaterally Head and Scalp: normal to inspection, normocephalic and atraumatic Face and Sinus: normal facial exam Nose: external nose normal External Ear: external ears normal Eyes EOMs intact bilaterally General Eye: normal appearance of both eyes Neck full ROM Resp normal respiratory effort, normal air movement, no retractions and no use of accessory muscles Effort and Inspection: able to speak in complete sentences Extremity no calf tenderness General Extremity: Negative for clubbing or cyanosis Skin Wound Narrative: A dehiscent longitudinal surgical incision is noted overlying the left knee. The dehiscence extends through all layers and into the subcutaneous adipose tissues. There is no odor or drainage. There is no sign of infection or cellulitis. Dimensions are documented elsewhere. The size and depth of the wound appear to be diminishing. Most of the open wound demonstrates healthy, pink granulation tissue, which continues to increase weekly. There is only a small amount of bioburden. The margins of the wound appear well beveled, with evidence of peripheral epithelialization. A small portion of the wound, centrally, appears to extend down to the underlying fascia, though coverage continues to improve. Hair: normal Neuro oriented x3, CN's II-XII intact bilaterally, moves all extremities, no focal motor deficits and no sensory deficits noted Sensorium / Orientation: awake, alert, oriented to person, oriented to place and oriented to time Cranial Nerves: CN normal except as noted Speech: speech normal Psych Appearance: grossly normal and appropriate Attitude: calm Activity / Motor Behavior: appropriate eye contact Speech: normal speech Mood & Affect: euthymic mood Thought Process: normal thought process Thought Content: normal thought content Attention / Concentration: attention grossly intact Debridement Note Debridement Note Wound debrided: Dehiscent left knee surgical incision Laterality: Left Type of Debridement: Excisional debridement Anesthesia Used: 5% Lidocaine Gel and Cetacaine Depth: Down to and including healthy tissue and in the subcutaneous layer Percentage of wound debrided: 100 Instrument Used: 5mm curette Tissue Removed: Bioburden Severity: Fat Layer Exposed Amount of bleeding with debridement: Mild Bleeding Controlled with: Compression and gauze Patient tolerated procedure: Patient tolerated procedure well Debridement Free Text: The excisional debridement was well-tolerated by the patient. Approval has been obtained for the use of an allograft. The cellular tissue product selected was EpiFix. A 4 cm x 4.5 cm meshed EpiFix allograft was selected. The allograft was removed from its sterile packaging. It was cut and fashioned to the appropriate size and shape for complete coverage of the dehiscent left knee wound. The EpiFix was applied topically in the appropriate orientation. 90% of the allograft was utilized. The allograft was anchored in place at its edges using Dermabond. Adaptic Touch was placed over the entire site, and was secured using Steri-Strips. The wound VAC was then applied in the appropriate fashion. Post-Debridement Measurements and Additional Note: Post-Debridement Measurements/Treatment WC - Nurse 1 - General Ulcer Assessment Start: 09/30/24 14:41 Freq: Status: Active Protocol: KENNY Activity Type Activity Date Activity User E-sign Co-sign Detail Recorded Client Recorded Date Recorded By Document 09/30/24 14:41 KW [id number] 09/30/24 14:55 KW Document 10/03/24 11:28 KW [id number] 10/03/24 11:33 KW Document 10/07/24 14:57 KW [id number] 10/07/24 15:10 KW 09/30/24 10/03/24 10/07/24 14:41 11:28 14:57 - Today's Visit Information Type of service Follow-up Visit Nurse-only Follow-up Visit (Physician/ATHLETE MANAGER Visit (Physician/ATHLETE MANAGER ) ) Arrival Mode Ambulatory, Ambulatory Walker Accompanied by Patient Identification Verified (Name & Yes Yes Yes ) Height and Weight Body Mass Index (BMI) 34.1 34.1 34.1 BMI Classification Obese Obese Obese Vital Signs Temperature (97.8 F-99.1 F) 98.3 F 96.5 F L Temperature Source Temporal Temporal Temporal Pulse Rate (60-100) 74 61 Pulse Location Monitor Monitor Monitor Respiratory Rate (12-18) 16 16 18 Respiratory rate source Observation Monitor Observation Oxygen Delivery Method Room Air Room Air Room Air Blood Pressure (90/60-120/80) 133/69 H 142/69 H Blood Pressure Mean 90 93 Source Monitor Monitor Monitor Position Sitting Semi-Fowlers Sitting Blood Pressure Location Left Arm Right Arm Left Arm History Since Last Visit- (Skip if this is Patient's initial visit) Have you changed medications since your No No No last visit? Any new allergies or adverse reactions No No No Had a fall/change in ADL's that may No No increase risk of falls Signs or symptoms of abuse and/or No No No neglect since last visit Have you been in the hospital since your Yes No No last visit? Has dressing in place as prescribed Yes Yes Yes Has compression in place as prescribed Yes N/A Yes Has offloadiing in place as prescribed N/A N/A N/A Experienced any changes in pain level or No No No management Left Footwear Regular Shoe Regular Shoe Regular Shoe Right Footwear Regular Shoe Regular Shoe Regular Shoe Pain Scale: 0-10 Numeric Is Patient Pain Free? Yes Yes Yes - Nurse 1 - General Ulcer Measurement Start: 09/30/24 14:41 Freq: Status: Active Protocol: Activity Type Activity Date Activity User E-sign Co-sign Detail Recorded Client Recorded Date Recorded By Document 09/30/24 14:41 KW [id number] 09/30/24 14:55 KW Document 10/07/24 14:57 KW [id number] 10/07/24 15:10 KW 09/30/24 10/07/24 14:41 14:57 Wound Center Nurse 1 #1,.L knee -Current Size (cm) - Length 8 7.6 -Current Size (cm) - Width 1.8 2 -Current Size (cm) - Depth 0.5 0.4 -Total Square Cm 14.4 15.2 -Date of Last Picture (Recall this 09/30/24 10/07/24 field) -Exudate Amt Medium Small -Exudate Type Serosanguineous Serosanguineous -Wound Margin Distinct, Distinct, Outline Outline Attached Attached -Granulation Amt Large (67-100%) Large (67-100%) -Granulation Quality Red [place],Red -Necrosis Amt Small (1-33%) Small (1-33%) -Necrotic Tissue Type Adherent Slough Adherent Slough -Texture (Anali-wound Skin Appearance) Assessed Assessed -Moisture (Anali-wound Skin Appearance) Assessed Assessed -Color (Anali-wound Skin Appearance) Assessed Assessed -Temperature (Anali-wound Skin No Abnormality No Abnormality Appearance) (Pt Warm) (Pt Warm) -Tenderness on Palpation (Anali-wound No No Skin Appearance) -Ulcer Cleansing Soap and Water Soap and Water -Foul Odor after Cleansing No -Anesthetic Used 5% Lidocaine 5% Lidocaine Gel Gel WC - Nurse 2 - General Ulcer CM Notes Start: 09/30/24 14:41 Freq: Status: Active Protocol: Activity Type Activity Date Activity User E-sign Co-sign Detail Recorded Client Recorded Date Recorded By Document 09/30/24 15:19 DS [id number] 09/30/24 15:23 DS Document 10/07/24 15:21 DS [id number] 10/07/24 15:29 DS 09/30/24 10/07/24 15:19 15:21 Wound Center Nurse 2 #1,.L knee -Time 15:19 15:20 -Correct Patient Yes Yes -Correct Side, Site, Position Yes Yes -Correct Procedure Yes Yes -Procedure Performed Yes Yes -Type of Procedure Debridement Debridement -Clinical Debridement Subcutaneous Subcutaneous -Tissue Removed Subcutaneous Subcutaneous -Post Debridement (cm) - Length 8.5 7.5 -Post Debridement (cm) - Width 2.0 2.0 -Post Debridement (cm) - Depth 0.6 0.4 -Total Square (Post) (cm) 17.00 15.00 -Area of Debridement (cm) - Length 8.5 7.5 -Area of Debridement (cm) - Width 2.0 2.0 -Total Square (Area) (cm) 17.00 15.00 -Tunneling No No -Undermining/Tunneling No No -Circular Undermining No No -Wound/Ulcer Outcome Not Healed Not Healed -Ulcer Cleansing Rinsed/ Rinsed/ Irrigated with Irrigated with Saline Saline -Foul Odor after Cleansing No No -Bioengineered Tissue No Yes -Type of Bioengineered Tissue Epifix Mesh -Expiration Date 03/24/29 -Product Lot Number [id number] -Percent Used 100 -Lot number of Saline Used [id number] -Bleeding Controlled with Pressure Pressure -Treatment Response Procedure Procedure Tolerated Well Tolerated Well -Debridement - Subq, 1st 20sq cm Yes No -Apply Skin Sub - 1st 25 sq cm - Legs 1 -Epifix Mesh (per sq cm) 11 Pain Scale: 0-10 Numeric Is Patient Pain Free? Yes Yes WC - Nurse 3 - General Ulcer D/C NN Start: 09/30/24 14:41 Freq: Status: Active Protocol: Activity Type Activity Date Activity User E-sign Co-sign Detail Recorded Client Recorded Date Recorded By Document 09/30/24 15:51 RB [id number] 09/30/24 15:52 RB Document 10/03/24 11:28 KW [id number] 10/03/24 11:33 KW Document 10/07/24 15:41 KW [id number] 10/07/24 15:41 KW 09/30/24 10/03/24 10/07/24 15:51 11:28 15:41 Wound Care Center Nurse 3 #1,.L knee -Ulcer Cleansing Rinsed/ Soap and Water Irrigated with Saline -Negative Pressure Wound Therapy Continue Continue Continue -Setting (mmHg) 125 125 125 -Negative Pressure is Continuous Continuous Continuous -NPWT Application Charge NPWT & NPWT </= 50 sq NPWT & Debridement (nc cm ($) Debridement (nc ) ) Left -Compression Wrap Randy Wrap Randy Wrap -Other randy Treatment Response Procedure Tolerated Well Vital Signs Temperature (97.8 F-99.1 F) 96.5 F L Temperature Source Temporal Pulse Rate (60-100) 61 Pulse Location Monitor Respiratory Rate (12-18) 16 Respiratory rate source Monitor Oxygen Delivery Method Room Air Blood Pressure (90/60-120/80) 142/69 H Blood Pressure Mean 93 Source Monitor Position Semi-Fowlers Blood Pressure Location Right Arm Pain Scale: 0-10 Numeric Is Patient Pain Free? Yes Yes Yes WC - Visit Discharge Discharge Condition Stable Stable Stable Ambulatory Status Ambulatory, Ambulatory, Ambulatory Walker Walker Transportation Private Auto Private Auto Private Auto Medication Reconcilliation completed & No No No provided to patient/care provider Clinical Summary of Care Provided Yes Yes Yes Charges/Coding Procedures Integumentary [id number]: [id number] Skin sub graft trnk/arm/leg Assessment/Plan Assessment/Plan (1) Non-pressure chronic ulcer of left thigh with fat layer exposed: CODE(S): L97.122 - Non-pressure chronic ulcer of left thigh with fat layer exposed (2) Dehiscence of incision: CODE(S): T81.31XA - Disruption of external operation (surgical) wound, not elsewhere classified, initial encounter QUALIFIERS: Encounter type: subsequent encounter Qualified Code(s): T81.31XD - Disruption of external operation (surgical) wound, not elsewhere classified, subsequent encounter (3) Gangrene associated with type 2 diabetes mellitus: CODE(S): E11.52 - Type 2 diabetes mellitus with diabetic peripheral angiopathy with gangrene (4) Status post revision of total replacement of left knee: CODE(S): Z96.652 - Presence of left artificial knee joint (5) Failed total left knee replacement: CODE(S): T84.093A - Other mechanical complication of internal left knee prosthesis, initial encounter QUALIFIERS: Encounter type: subsequent encounter Qualified Code(s): T84.093D - Other mechanical complication of internal left knee prosthesis, subsequent encounter (6) History of left knee surgery: CODE(S): Z98.890 - Other specified postprocedural states (7) Diabetes: CODE(S): E11.9 - Type 2 diabetes mellitus without complications QUALIFIERS: Diabetes mellitus type: type 2 (8) Diabetic polyneuropathy: CODE(S): E11.42 - Type 2 diabetes mellitus with diabetic polyneuropathy (9) GERD (gastroesophageal reflux disease): CODE(S): K21.9 - Gastro-esophageal reflux disease without esophagitis (10) Hyperlipemia: CODE(S): E78.5 - Hyperlipidemia, unspecified (11) Iron deficiency anemia: CODE(S): D50.9 - Iron deficiency anemia, unspecified (12) Essential (primary) hypertension: CODE(S): I10 - Essential (primary) hypertension (13) Debility: CODE(S): R53.81 - Other malaise (14) Status post total right knee replacement: CODE(S): Z96.651 - Presence of right artificial knee joint (15) Osteoarthritis: (16) History of DVT (deep vein thrombosis): CODE(S): Z86.718 - Personal history of other venous thrombosis and embolism (17) Dyslipidemia: CODE(S): E78.5 - Hyperlipidemia, unspecified (18) Hypothyroidism: CODE(S): E03.9 - Hypothyroidism, unspecified (19) Ocular myasthenia gravis: CODE(S): G70.00 - Myasthenia gravis without (acute) exacerbation (20) History of partial thyroidectomy: CODE(S): E89.0 - Postprocedural hypothyroidism (21) History of appendectomy: CODE(S): Z90.49 - Acquired absence of other specified parts of digestive tract (22) History of hysterectomy: CODE(S): Z90.710 - Acquired absence of both cervix and uterus (23) History of cholecystectomy: CODE(S): Z90.49 - Acquired absence of other specified parts of digestive tract (24) Non-smoker: CODE(S): Z78.9 - Other specified health status (25) History of hiatal hernia: CODE(S): Z87.19 - Personal history of other diseases of the digestive system (26) History of revision of total replacement of left knee joint: CODE(S): Z96.652 - Presence of left artificial knee joint (27) History of bilateral cataract extraction: CODE(S): Z98.41 - Cataract extraction status, right eye; Z98.42 - Cataract extraction status, left eye PLAN: Plan This is a 73-year-old female who underwent the fourth revision of a left total knee replacement on June 19, 2024. She developed gangrene, necrosis, and dehiscence at the surgical site. As a result, the patient presented for definitive evaluation and management with respect to her surgical wound. A large amount of necrotic and nonviable tissue has been eliminated from the site of the patient's surgical wound since her initial presentation. Negative pressure wound therapy has been initiated by means of the Wound VAC. The patient appears to be tolerating negative pressure wound therapy without difficulty, which appears to be having a positive effect on the patient's wound healing. There are increasing areas of healthy, pink granulation tissue. The wound appears to be decreasing in size and depth. It is noted that the patient was admitted to [facility] on September 23, 2024, and subsequently discharged on September 26, 2024. She initially presented due to concerns regarding a decrease in her blood sugars. However, initial evaluation in the hospital revealed a cellulitis involving her left leg. She was treated with intravenous Zosyn and vancomycin, and subsequently discharged on September 26, 2024, on cephalexin 500 mg p.o. 4 times daily for 7 days. However, at the time of discharge, the final culture results had not been completed, and the final result indicated the presence of Pseudomonas aeruginosa. Therefore, we have placed the patient on Cipro 500 mg p.o. twice daily for a total of 7 days, which is in accordance with the findings of the patient's culture and sensitivity results. The course of Cipro is nearly completed. Preauthorization has been received for the use of cellular tissue products. Therefore, an EpiFix meshed allograft was applied topically to the patient's dehiscent wound, which will be used in conjunction with negative pressure wound therapy. Today's application of the allograft represents the first such allograft application. We are to change the wound VAC twice weekly, at a setting of 125 mmHg continuous negative pressure. The allograft will be left in place until the patient's return visit in 1 week. The patient has been encouraged to optimize her nutritional intake, as well as her diabetes management. She has been encouraged to continue taking Papa as a nutritional supplement. She is to coordinate with her primary care physician with regard to diabetes management. She has been encouraged to elevate her left lower extremity to prevent and minimize swelling. Elevation is to be to heart level, during both daytime and nighttime hours. Avoidance of prolonged idle sitting has been encouraged. Activity as tolerated encouraged. The patient was seen by her Orthopedic Surgeon earlier today, and the patient indicates that he was pleased with her progress to date. Tubigrip's have been dispensed for compression purposes. The patient is to follow-up in 1 week for reevaluation. Total time: 26 minutes
[2024-10-10 11:36] VITALS: BP 140/58; PULSE 62; RESP 18; TEMP 36.4; BMI 34.1
[2024-10-14 14:52] VITALS: BP 135/56; PULSE 63; RESP 18; TEMP 36.6; BMI 34.1
--- NOTE | 2024-10-15 19:57 | HP.PCM_ITS ---
History of Present Illness Date of Service: 10/14/24 Chief Complaint: Dehiscent, necrotic surgical wound of the left knee History of Wound: This is a 73-year-old female with a history of left total knee replacement many years ago, which has required several revisions. The most recent revision was performed on June 19, 2024, at the [facility]. This was the fourth left knee revision. Prior revisions required flap reconstruction, and the Plastic Surgery service was involved in the patient's most recent surgery. Postoperatively, the patient was placed on oral doxycycline, which is expected to continue for 3 months. The patient's left lower extremity was locked in extension for 2 weeks. She is now weightbearing on the involved limb. She was admitted to the Transitional Care Unit at [facility] for several weeks postoperatively on June 27, 2024. She has returned to home, with management assistant care from her . The patient developed a surgical wound dehiscence and marjorie necrosis and gangrene at the site of her incision. A wound VAC was used initially at the surgical site, but the patient had been using Xeroform more recently. The patient suffers from multiple pre-existing medical conditions, listed herein. She does not smoke. She is using Papa as a nutritional supplement. Her BMI is 34.1. 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 Dehiscence of incision History of revision of total replacement of left knee joint Wears glasses Alcohol use History of steroid therapy Bladder disease Neuropathy Back pain Dietary restriction History of pain when walking Pain Myasthenia gravis Ambulates with cane Rheumatoid arthritis Low iron History of DVT (deep vein thrombosis) Hyperlipemia Difficulty swallowing History of hiatal hernia Gastric reflux Non-smoker Shortness of breath on exertion Chronic cough PONV (postoperative nausea and vomiting) Leg cramps History of edema History of stress test Hypertension Thyroid disease Cataracts, bilateral History of UTI Arthritis Home Medications ?Medication ?Instructions ?Recorded ?Last Taken ?Type folic acid 1 mg tablet 1 mg PO DAILY supplement 10/13/13 06/06/22 History atorvastatin 10 mg tablet 5 mg PO .QOD Cholesterol 09/06/21 06/26/24 18:45 History cholecalciferol (vitamin D3) 50 50 mcg PO DAILY supplement 09/06/21 06/27/24 History mcg (2,000 unit) capsule ascorbic acid (vitamin C) 500 mg 500 mg PO DAILY supplement 02/06/22 06/27/24 History tablet (Vitamin C) dapagliflozin propanediol 5 mg 10 mg PO DAILY blood sugar 05/25/22 06/06/22 History tablet (Farxiga) levothyroxine 125 mcg tablet 100 mcg PO DAILY thyroid 05/25/22 06/27/24 History pregabalin 75 mg capsule (Lyrica) 100 mg PO TID pain 05/25/22 06/06/22 History hydrochlorothiazide 12.5 mg tablet 12.5 mg PO DAILY Blood pressure 06/07/22 Unknown History vibegron 75 mg tablet (Gemtesa) 75 mg PO DAILY Overactive bladder 12/04/22 Unknown History metformin 500 mg tablet,extended 1,000 mg PO BID Diabetes 06/27/24 06/27/24 05:30 History release 24 hr polysaccharide iron complex 150 mg 65 mg PO QODAY Supplement 06/27/24 Unknown History iron capsule (Ferrex) losartan 100 mg tablet 100 mg PO DAILY bp 30 days #30 tabs 07/15/24 Unknown Rx oxycodone 5 mg tablet 5 - 10 mg (1 - 2 x 5 mg) PO Q4H 07/15/24 Unknown Rx PRN PRN Pain Score 4-10 7 days #84 tabs potassium chloride 20 mEq 20 meq PO DAILYCM supplement 30 07/15/24 Unknown Rx tablet,extended release(part/cryst) days #30 tabs arginine 7 gram-glutam 7 1 packet PO DAILY supplement 09/24/24 Unknown History gram-CaHMB 1.5 [id number] oral pwd pkt (Papa (with collagen)) cephalexin 500 mg capsule 500 mg PO Q6H 7 days #28 caps 09/26/24 Unknown Rx ciprofloxacin HCl 500 mg tablet 500 mg PO BID #14 tabs 09/29/24 Unknown Rx (Cipro) Allergy/AdvReac Type Severity Reaction Status Date / Time latex Allergy Severe Other Verified 09/23/24 16:23 shellfish derived Allergy Severe PASSED Verified 09/23/24 16:23 OUT, DIARRHEA adhesive Allergy Mild Rash Verified 09/23/24 16:23 levofloxacin AdvReac Intermediate WEAK, Verified 09/23/24 16:23 NAUSEA povidone AdvReac Mild Hives Verified 09/23/24 16:23 Surgical History History of bilateral cataract extraction History of colonoscopy S/P insertion of spinal cord stimulator History of partial thyroidectomy History of appendectomy History of left knee surgery History of hysterectomy History of cholecystectomy Social History household members: spouse Smoking Status: Never smoker Electronic Cigarette Use: not used second hand exposure: No alcohol intake: current alcohol intake frequency: a few times a month Alcohol type: wine substance use type: does not use Vital Signs Vital Signs Vital Signs: Weight Weight: 180 lb 13.313 oz Body Mass Index (BMI) 34.1 Physical Exam Const alert, oriented x3, no apparent distress, no limitations, healthy appearing and well nourished General Appearance: cooperative, comfortable, well kempt and well developed Orientation / Consciousness: awake, oriented to person, oriented to place and oriented to time Exam Limitations: no limitations HEENT normocephalic, head/scalp atraumatic and hearing grossly normal bilaterally Head and Scalp: normal to inspection, normocephalic and atraumatic Face and Sinus: normal facial exam Nose: external nose normal External Ear: external ears normal Eyes EOMs intact bilaterally General Eye: normal appearance of both eyes Neck full ROM Resp normal respiratory effort, normal air movement, no retractions and no use of accessory muscles Effort and Inspection: able to speak in complete sentences Extremity no calf tenderness General Extremity: Negative for clubbing or cyanosis Skin Wound Narrative: A dehiscent longitudinal surgical incision is noted overlying the left knee. The dehiscence extends through all layers and into the subcutaneous adipose tissues. There is no odor or drainage. There is no sign of infection or cellulitis. Dimensions are documented elsewhere. The size and depth of the wound continue to diminish. Most of the open wound demonstrates healthy, pink granulation tissue, which continues to increase weekly. There is minimal bioburden. The margins of the wound appear well beveled, with evidence of peripheral epithelialization. Centrally, a very small area of exposed fascia remains, as healthy granulation tissue is now predominant. Hair: normal Neuro oriented x3, CN's II-XII intact bilaterally, moves all extremities, no focal motor deficits and no sensory deficits noted Sensorium / Orientation: awake, alert, oriented to person, oriented to place and oriented to time Cranial Nerves: CN normal except as noted Speech: speech normal Psych Appearance: grossly normal and appropriate Attitude: calm Activity / Motor Behavior: appropriate eye contact Speech: normal speech Mood & Affect: euthymic mood Thought Process: normal thought process Thought Content: normal thought content Attention / Concentration: attention grossly intact Debridement Note Debridement Note Wound debrided: Dehiscent left knee surgical incision Laterality: Left Type of Debridement: Excisional debridement Anesthesia Used: 5% Lidocaine Gel and Cetacaine Depth: Down to and including healthy tissue and in the subcutaneous layer Percentage of wound debrided: 100 Instrument Used: 5mm curette Tissue Removed: Bioburden Severity: Fat Layer Exposed Amount of bleeding with debridement: Mild Bleeding Controlled with: Compression and gauze Patient tolerated procedure: Patient tolerated procedure well Debridement Free Text: The excisional debridement was well-tolerated by the patient. Approval has been obtained for the use of an allograft. The cellular tissue product selected was EpiFix. A 4 cm x 4.5 cm meshed EpiFix allograft was selected. The allograft was removed from its sterile packaging. It was cut and fashioned to the appropriate size and shape for complete coverage of the dehiscent left knee wound. The EpiFix was applied topically in the appropriate orientation. 90% of the allograft was utilized. The allograft was anchored in place at its edges using Dermabond. Adaptic Touch was placed over the entire site, and was secured using Steri-Strips. The wound VAC was then applied in the appropriate fashion. This represents the second such allograft application at this site. Post-Debridement Measurements and Additional Note: Post-Debridement Measurements/Treatment - Nurse 1 - General Ulcer Assessment Start: 09/30/24 14:41 Freq: Status: Active Protocol: KENNY Activity Type Activity Date Activity User E-sign Co-sign Detail Recorded Client Recorded Date Recorded By Document 09/30/24 14:41 KW [id number] 09/30/24 14:55 KW Document 10/03/24 11:28 KW [id number] 10/03/24 11:33 KW Document 10/07/24 14:57 KW [id number] 10/07/24 15:10 KW Document 10/10/24 11:36 KW [id number] 10/10/24 11:39 KW Document 10/14/24 14:52 KW [id number] 10/14/24 15:00 KW 09/30/24 10/03/24 10/07/24 14:41 11:28 14:57 WC - Today's Visit Information Type of service Follow-up Visit Nurse-only Follow-up Visit (Physician/PHYSICIAN RELATIONS SPECIALIST Visit (Physician/PHYSICIAN RELATIONS SPECIALIST ) ) Arrival Mode Ambulatory, Ambulatory Walker Accompanied by Patient Identification Verified (Name & Yes Yes Yes ) Height and Weight Body Mass Index (BMI) 34.1 34.1 34.1 BMI Classification Obese Obese Obese Vital Signs Temperature (97.8 F-99.1 F) 98.3 F 96.5 F L Temperature Source Temporal Temporal Temporal Pulse Rate (60-100) 74 61 Pulse Location Monitor Monitor Monitor Respiratory Rate (12-18) 16 16 18 Respiratory rate source Observation Monitor Observation Oxygen Delivery Method Room Air Room Air Room Air Blood Pressure (90/60-120/80) 133/69 H 142/69 H Blood Pressure Mean 90 93 Source Monitor Monitor Monitor Position Sitting Semi-Fowlers Sitting Blood Pressure Location Left Arm Right Arm Left Arm History Since Last Visit- (Skip if this is Patient's initial visit) Have you changed medications since your No No No last visit? Any new allergies or adverse reactions No No No Had a fall/change in ADL's that may No No increase risk of falls Signs or symptoms of abuse and/or No No No neglect since last visit Have you been in the hospital since your Yes No No last visit? Has dressing in place as prescribed Yes Yes Yes Has compression in place as prescribed Yes N/A Yes Has offloadiing in place as prescribed N/A N/A N/A Experienced any changes in pain level or No No No management Left Footwear Regular Shoe Regular Shoe Regular Shoe Right Footwear Regular Shoe Regular Shoe Regular Shoe Pain Scale: 0-10 Numeric Is Patient Pain Free? Yes Yes Yes 10/10/24 10/14/24 11:36 14:52 WC - Today's Visit Information Type of service Nurse-only Nurse-only Visit Visit Arrival Mode Ambulatory, Ambulatory, Walker Walker Accompanied by Patient Identification Verified (Name & Yes Yes ) Height and Weight Body Mass Index (BMI) 34.1 34.1 BMI Classification Obese Obese Vital Signs Temperature (97.8 F-99.1 F) 97.5 F L 97.9 F Temperature Source Temporal Temporal Pulse Rate (60-100) 62 63 Pulse Location Monitor Monitor Respiratory Rate (12-18) 18 18 Respiratory rate source Observation Observation Oxygen Delivery Method Room Air Room Air Blood Pressure (90/60-120/80) 140/58 H 135/56 H Blood Pressure Mean 85 82 Source Monitor Monitor Position Semi-Fowlers Semi-Fowlers Blood Pressure Location Left Arm Left Arm History Since Last Visit- (Skip if this is Patient's initial visit) Have you changed medications since your No No last visit? Any new allergies or adverse reactions No No Had a fall/change in ADL's that may No No increase risk of falls Signs or symptoms of abuse and/or No No neglect since last visit Have you been in the hospital since your No No last visit? Has dressing in place as prescribed Yes Yes Has compression in place as prescribed Yes Yes Has offloadiing in place as prescribed N/A N/A Experienced any changes in pain level or No No management Left Footwear Regular Shoe Regular Shoe Right Footwear Regular Shoe Regular Shoe Pain Scale: 0-10 Numeric Is Patient Pain Free? Yes Yes WC - Nurse 1 - General Ulcer Measurement Start: 09/30/24 14:41 Freq: Status: Active Protocol: Activity Type Activity Date Activity User E-sign Co-sign Detail Recorded Client Recorded Date Recorded By Document 09/30/24 14:41 KW [id number] 09/30/24 14:55 KW Document 10/07/24 14:57 KW [id number] 10/07/24 15:10 KW Document 10/14/24 14:52 KW [id number] 10/14/24 15:00 KW 09/30/24 10/07/24 10/14/24 14:41 14:57 14:52 Wound Center Nurse 1 #1,.L knee -Current Size (cm) - Length 8 7.6 7 -Current Size (cm) - Width 1.8 2 2 -Current Size (cm) - Depth 0.5 0.4 0.2 -Total Square Cm 14.4 15.2 14 -Date of Last Picture (Recall this 09/30/24 10/07/24 10/14/24 field) -Exudate Amt Medium Small Small -Exudate Type Serosanguineous Serosanguineous Serosanguineous -Wound Margin Distinct, Distinct, Distinct, Outline Outline Outline Attached Attached Attached -Granulation Amt Large (67-100%) Large (67-100%) Large (67-100%) -Granulation Quality [place],Red [place] -Necrosis Amt Small (1-33%) Small (1-33%) -Necrotic Tissue Type Adherent Slough Adherent Slough -Texture (Anali-wound Skin Appearance) Assessed Assessed Assessed -Moisture (Anali-wound Skin Appearance) Assessed Assessed Assessed, Maceration -Color (Anali-wound Skin Appearance) Assessed Assessed Assessed, Erythema -Temperature (Anali-wound Skin No Abnormality No Abnormality No Abnormality Appearance) (Pt Warm) (Pt Warm) (Pt Warm) -Tenderness on Palpation (Anali-wound No No No Skin Appearance) -Ulcer Cleansing Soap and Water Soap and Water Soap and Water -Foul Odor after Cleansing No No -Anesthetic Used 5% Lidocaine 5% Lidocaine 5% Lidocaine Gel Gel Gel WC - Nurse 2 - General Ulcer CM Notes Start: 09/30/24 14:41 Freq: Status: Active Protocol: Activity Type Activity Date Activity User E-sign Co-sign Detail Recorded Client Recorded Date Recorded By Document 09/30/24 15:19 DS [id number] 09/30/24 15:23 DS Document 10/07/24 15:21 DS [id number] 10/07/24 15:29 DS Document 10/14/24 15:14 DS [id number] 10/14/24 15:16 DS 09/30/24 10/07/24 10/14/24 15:19 15:21 15:14 Wound Center Nurse 2 #1,.L knee -Time 15:19 15:20 15:10 -Correct Patient Yes Yes Yes -Correct Side, Site, Position Yes Yes Yes -Correct Procedure Yes Yes Yes -Procedure Performed Yes Yes Yes -Type of Procedure Debridement Debridement Debridement -Clinical Debridement Subcutaneous Subcutaneous Subcutaneous -Tissue Removed Subcutaneous Subcutaneous Subcutaneous -Post Debridement (cm) - Length 8.5 7.5 7.3 -Post Debridement (cm) - Width 2.0 2.0 2.0 -Post Debridement (cm) - Depth 0.6 0.4 0.3 -Total Square (Post) (cm) 17.00 15.00 14.60 -Area of Debridement (cm) - Length 8.5 7.5 7.3 -Area of Debridement (cm) - Width 2.0 2.0 2.0 -Total Square (Area) (cm) 17.00 15.00 14.60 -Tunneling No No No -Undermining/Tunneling No No No -Circular Undermining No No No -Wound/Ulcer Outcome Not Healed Not Healed Not Healed -Ulcer Cleansing Rinsed/ Rinsed/ Rinsed/ Irrigated with Irrigated with Irrigated with Saline Saline Saline -Foul Odor after Cleansing No No No -Bioengineered Tissue No Yes Yes -Type of Bioengineered Tissue Epifix Mesh Epifix Mesh -Expiration Date 03/24/29 03/24/29 -Product Lot Number [id number] -Percent Used 100 100 -Lot number of Saline Used [id number] -Bleeding Controlled with Pressure Pressure Pressure -Treatment Response Procedure Procedure Procedure Tolerated Well Tolerated Well Tolerated Well -Debridement - Subq, 1st 20sq cm Yes No No -Apply Skin Sub - 1st 25 sq cm - Legs 1 1 -Epifix Mesh (per sq cm) 11 11 Pain Scale: 0-10 Numeric Is Patient Pain Free? Yes Yes Yes - Nurse 3 - General Ulcer D/C NN Start: 09/30/24 14:41 Freq: Status: Active Protocol: Activity Type Activity Date Activity User E-sign Co-sign Detail Recorded Client Recorded Date Recorded By Document 09/30/24 15:51 RB [id number] 09/30/24 15:52 RB Document 10/03/24 11:28 KW [id number] 10/03/24 11:33 KW Document 10/07/24 15:41 KW [id number] 10/07/24 15:41 KW Document 10/10/24 11:36 KW [id number] 10/10/24 11:39 KW Document 10/14/24 16:18 RB [id number] 10/14/24 16:19 RB 09/30/24 10/03/24 10/07/24 15:51 11:28 15:41 Wound Care Center Nurse 3 #1,.L knee -Ulcer Cleansing Rinsed/ Soap and Water Irrigated with Saline -Negative Pressure Wound Therapy Continue Continue Continue -Setting (mmHg) 125 125 125 -Negative Pressure is Continuous Continuous Continuous -NPWT Application Charge NPWT & NPWT </= 50 sq NPWT & Debridement (nc cm ($) Debridement (nc ) ) Left -Compression Wrap Randy Wrap Randy Wrap -Other randy Treatment Response Procedure Tolerated Well Vital Signs Temperature (97.8 F-99.1 F) 96.5 F L Temperature Source Temporal Pulse Rate (60-100) 61 Pulse Location Monitor Respiratory Rate (12-18) 16 Respiratory rate source Monitor Oxygen Delivery Method Room Air Blood Pressure (90/60-120/80) 142/69 H Blood Pressure Mean 93 Source Monitor Position Semi-Fowlers Blood Pressure Location Right Arm Pain Scale: 0-10 Numeric Is Patient Pain Free? Yes Yes Yes WC - Visit Discharge Discharge Condition Stable Stable Stable Ambulatory Status Ambulatory, Ambulatory, Ambulatory Walker Walker Transportation Private Auto Private Auto Private Auto Accompanied by Medication Reconcilliation completed & No No No provided to patient/care provider Clinical Summary of Care Provided Yes Yes Yes 10/10/24 10/14/24 11:36 16:18 Wound Care Center Nurse 3 #1,.L knee -Ulcer Cleansing Soap and Water -Negative Pressure Wound Therapy Continue Continue -Setting (mmHg) 125 125 -Negative Pressure is Continuous Continuous -NPWT Application Charge NPWT </= 50 sq NPWT & cm ($) Debridement (nc ) Left -Compression Wrap Randy Wrap -Other RANDY Treatment Response Procedure Tolerated Well Vital Signs Temperature (97.8 F-99.1 F) 97.5 F L Temperature Source Temporal Pulse Rate (60-100) 62 Pulse Location Monitor Respiratory Rate (12-18) 18 Respiratory rate source Observation Oxygen Delivery Method Room Air Blood Pressure (90/60-120/80) 140/58 H Blood Pressure Mean 85 Source Monitor Position Semi-Fowlers Blood Pressure Location Left Arm Pain Scale: 0-10 Numeric Is Patient Pain Free? Yes Yes WC - Visit Discharge Discharge Condition Stable Stable Ambulatory Status Ambulatory, Ambulatory, Walker Walker Transportation Private Auto Private Auto Accompanied by Medication Reconcilliation completed & No No provided to patient/care provider Clinical Summary of Care Provided Yes Yes Charges/Coding Procedures Integumentary [id number]: [id number] Skin sub graft trnk/arm/leg Assessment/Plan Assessment/Plan (1) Non-pressure chronic ulcer of left thigh with fat layer exposed: CODE(S): L97.122 - Non-pressure chronic ulcer of left thigh with fat layer exposed (2) Dehiscence of incision: CODE(S): T81.31XA - Disruption of external operation (surgical) wound, not elsewhere classified, initial encounter QUALIFIERS: Encounter type: subsequent encounter Qualified Code(s): T81.31XD - Disruption of external operation (surgical) wound, not elsewhere classified, subsequent encounter (3) Gangrene associated with type 2 diabetes mellitus: CODE(S): E11.52 - Type 2 diabetes mellitus with diabetic peripheral angiopathy with gangrene (4) Status post revision of total replacement of left knee: CODE(S): Z96.652 - Presence of left artificial knee joint (5) Failed total left knee replacement: CODE(S): T84.093A - Other mechanical complication of internal left knee prosthesis, initial encounter QUALIFIERS: Encounter type: subsequent encounter Qualified Code(s): T84.093D - Other mechanical complication of internal left knee prosthesis, subsequent encounter (6) History of left knee surgery: CODE(S): Z98.890 - Other specified postprocedural states (7) Diabetes: CODE(S): E11.9 - Type 2 diabetes mellitus without complications QUALIFIERS: Diabetes mellitus type: type 2 (8) Diabetic polyneuropathy: CODE(S): E11.42 - Type 2 diabetes mellitus with diabetic polyneuropathy (9) GERD (gastroesophageal reflux disease): CODE(S): K21.9 - Gastro-esophageal reflux disease without esophagitis (10) Hyperlipemia: CODE(S): E78.5 - Hyperlipidemia, unspecified (11) Iron deficiency anemia: CODE(S): D50.9 - Iron deficiency anemia, unspecified (12) Essential (primary) hypertension: CODE(S): I10 - Essential (primary) hypertension (13) Debility: CODE(S): R53.81 - Other malaise (14) Status post total right knee replacement: CODE(S): Z96.651 - Presence of right artificial knee joint (15) Osteoarthritis: (16) History of DVT (deep vein thrombosis): CODE(S): Z86.718 - Personal history of other venous thrombosis and embolism (17) Dyslipidemia: CODE(S): E78.5 - Hyperlipidemia, unspecified (18) Hypothyroidism: CODE(S): E03.9 - Hypothyroidism, unspecified (19) Ocular myasthenia gravis: CODE(S): G70.00 - Myasthenia gravis without (acute) exacerbation (20) History of partial thyroidectomy: CODE(S): E89.0 - Postprocedural hypothyroidism (21) History of appendectomy: CODE(S): Z90.49 - Acquired absence of other specified parts of digestive tract (22) History of hysterectomy: CODE(S): Z90.710 - Acquired absence of both cervix and uterus (23) History of cholecystectomy: CODE(S): Z90.49 - Acquired absence of other specified parts of digestive tract (24) Non-smoker: CODE(S): Z78.9 - Other specified health status (25) History of hiatal hernia: CODE(S): Z87.19 - Personal history of other diseases of the digestive system (26) History of revision of total replacement of left knee joint: CODE(S): Z96.652 - Presence of left artificial knee joint (27) History of bilateral cataract extraction: CODE(S): Z98.41 - Cataract extraction status, right eye; Z98.42 - Cataract extraction status, left eye PLAN: Plan This is a 73-year-old female who underwent the fourth revision of a left total knee replacement on June 19, 2024. She developed gangrene, necrosis, and dehiscence at the surgical site. As a result, the patient presented for definitive evaluation and management with respect to her surgical wound. A large amount of necrotic and nonviable tissue has been eliminated from the site of the patient's surgical wound since her initial presentation. Negative pressure wound therapy has been initiated by means of the Wound VAC. The patient appears to be tolerating negative pressure wound therapy without difficulty, which appears to be having a positive effect on the patient's wound healing. There are increasing areas of healthy, pink granulation tissue. The wound appears to be decreasing in size and depth. It is noted that the patient was admitted to [facility] on September 23, 2024, and subsequently discharged on September 26, 2024. She initially presented due to concerns regarding a decrease in her blood sugars. However, initial evaluation in the hospital revealed a cellulitis involving her left leg. She was treated with intravenous Zosyn and vancomycin, and subsequently discharged on September 26, 2024, on cephalexin 500 mg p.o. 4 times daily for 7 days. However, at the time of discharge, the final culture results had not been completed, and the final result indicated the presence of Pseudomonas aeruginosa. Therefore, we placed the patient on Cipro 500 mg p.o. twice daily for a total of 7 days in accordance with the findings of the patient's culture and sensitivity results. All antibiotics have now been completed, and there is no longer any sign of infection or cellulitis. Preauthorization has been received for the use of cellular tissue products. Therefore, an EpiFix meshed allograft was applied topically to the patient's dehiscent wound today, in conjunction with negative pressure wound therapy. Today's application of the allograft represents the second such allograft application. We are to change the wound VAC twice weekly, at a setting of 125 mmHg continuous negative pressure. The allograft will be left in place until the patient's return visit in 1 week. The patient has been encouraged to optimize her nutritional intake, as well as her diabetes management. She has been encouraged to continue taking Papa as a nutritional supplement. She is to coordinate with her primary care physician with regard to diabetes management. She has been encouraged to elevate her left lower extremity to prevent and minimize swelling. Elevation is to be to heart level, during both daytime and nighttime hours. Avoidance of prolonged idle sitting has been encouraged. Activity as tolerated has been encouraged. Tubigrip's have been dispensed for compression purposes. The patient is to follow-up in 1 week for reevaluation. Total time: 25 minutes
--- NOTE | 2024-10-16 09:48 | WC ---
PHOTO 10/14/24 LEFT KNEE
[2024-10-17 10:58] VITALS: BP 125/45; PULSE 65; RESP 16; TEMP 36.7; BMI 34.1
[2024-10-21 13:49] VITALS: BP 140/77; PULSE 77; RESP 16; TEMP 36.4; BMI 34.1
--- NOTE | 2024-10-22 09:03 | WC ---
PHOTO 10/21/24 LEFT KNEE
--- NOTE | 2024-10-22 16:13 | HP.PCM_ITS ---
History of Present Illness Date of Service: 10/21/24 Chief Complaint: Dehiscent, necrotic surgical wound of the left knee History of Wound: This is a 73-year-old female with a history of left total knee replacement many years ago, which has required several revisions. The most recent revision was performed on June 19, 2024, at the [facility]. This was the fourth left knee revision. Prior revisions required flap reconstruction, and the Plastic Surgery service was involved in the patient's most recent surgery. Postoperatively, the patient was placed on oral doxycycline, which is expected to continue for 3 months. The patient's left lower extremity was locked in extension for 2 weeks. She is now weightbearing on the involved limb. She was admitted to the Transitional Care Unit at [facility] for several weeks postoperatively on June 27, 2024. She has returned to home, with it administrative assistant care from her . The patient developed a surgical wound dehiscence and marjorie necrosis and gangrene at the site of her incision. A wound VAC was used initially at the surgical site, but the patient had been using Xeroform more recently. The patient suffers from multiple pre-existing medical conditions, listed herein. She does not smoke. She is using Papa as a nutritional supplement. Her BMI is 34.1. 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 Dehiscence of incision History of revision of total replacement of left knee joint Wears glasses Alcohol use History of steroid therapy Bladder disease Neuropathy Back pain Dietary restriction History of pain when walking Pain Myasthenia gravis Ambulates with cane Rheumatoid arthritis Low iron History of DVT (deep vein thrombosis) Hyperlipemia Difficulty swallowing History of hiatal hernia Gastric reflux Non-smoker Shortness of breath on exertion Chronic cough PONV (postoperative nausea and vomiting) Leg cramps History of edema History of stress test Hypertension Thyroid disease Cataracts, bilateral History of UTI Arthritis Home Medications ?Medication ?Instructions ?Recorded ?Last Taken ?Type folic acid 1 mg tablet 1 mg PO DAILY supplement 10/13/13 06/06/22 History atorvastatin 10 mg tablet 5 mg PO .QOD Cholesterol 09/06/21 06/26/24 18:45 History cholecalciferol (vitamin D3) 50 50 mcg PO DAILY supplement 09/06/21 06/27/24 History mcg (2,000 unit) capsule ascorbic acid (vitamin C) 500 mg 500 mg PO DAILY supplement 02/06/22 06/27/24 History tablet (Vitamin C) dapagliflozin propanediol 5 mg 10 mg PO DAILY blood sugar 05/25/22 06/06/22 History tablet (Farxiga) levothyroxine 125 mcg tablet 100 mcg PO DAILY thyroid 05/25/22 06/27/24 History pregabalin 75 mg capsule (Lyrica) 100 mg PO TID pain 05/25/22 06/06/22 History hydrochlorothiazide 12.5 mg tablet 12.5 mg PO DAILY Blood pressure 06/07/22 Unknown History vibegron 75 mg tablet (Gemtesa) 75 mg PO DAILY Overactive bladder 12/04/22 Unknown History metformin 500 mg tablet,extended 1,000 mg PO BID Diabetes 06/27/24 06/27/24 05:30 History release 24 hr polysaccharide iron complex 150 mg 65 mg PO QODAY Supplement 06/27/24 Unknown History iron capsule (Ferrex) losartan 100 mg tablet 100 mg PO DAILY bp 30 days #30 tabs 07/15/24 Unknown Rx oxycodone 5 mg tablet 5 - 10 mg (1 - 2 x 5 mg) PO Q4H 07/15/24 Unknown Rx PRN PRN Pain Score 4-10 7 days #84 tabs potassium chloride 20 mEq 20 meq PO DAILYCM supplement 30 07/15/24 Unknown Rx tablet,extended release(part/cryst) days #30 tabs arginine 7 gram-glutam 7 1 packet PO DAILY supplement 09/24/24 Unknown History gram-CaHMB 1.5 etst-gfwci-ob-min oral pwd pkt (Papa (with collagen)) cephalexin 500 mg capsule 500 mg PO Q6H 7 days #28 caps 09/26/24 Unknown Rx ciprofloxacin HCl 500 mg tablet 500 mg PO BID #14 tabs 09/29/24 Unknown Rx (Cipro) Allergy/AdvReac Type Severity Reaction Status Date / Time latex Allergy Severe Other Verified 09/23/24 16:23 shellfish derived Allergy Severe PASSED Verified 09/23/24 16:23 OUT, DIARRHEA adhesive Allergy Mild Rash Verified 09/23/24 16:23 levofloxacin AdvReac Intermediate WEAK, Verified 09/23/24 16:23 NAUSEA povidone AdvReac Mild Hives Verified 09/23/24 16:23 Surgical History History of bilateral cataract extraction History of colonoscopy S/P insertion of spinal cord stimulator History of partial thyroidectomy History of appendectomy History of left knee surgery History of hysterectomy History of cholecystectomy Social History household members: spouse Smoking Status: Never smoker Electronic Cigarette Use: not used second hand exposure: No alcohol intake: current alcohol intake frequency: a few times a month Alcohol type: wine substance use type: does not use Vital Signs Vital Signs Vital Signs: Weight Weight: 180 lb 13.313 oz Body Mass Index (BMI) 34.1 Physical Exam Const alert, oriented x3, no apparent distress, no limitations, healthy appearing and well nourished General Appearance: cooperative, comfortable, well kempt and well developed Orientation / Consciousness: awake, oriented to person, oriented to place and oriented to time Exam Limitations: no limitations HEENT normocephalic, head/scalp atraumatic and hearing grossly normal bilaterally Head and Scalp: normal to inspection, normocephalic and atraumatic Face and Sinus: normal facial exam Nose: external nose normal External Ear: external ears normal Eyes EOMs intact bilaterally General Eye: normal appearance of both eyes Neck full ROM Resp normal respiratory effort, normal air movement, no retractions and no use of accessory muscles Effort and Inspection: able to speak in complete sentences Extremity no calf tenderness General Extremity: Negative for clubbing or cyanosis Skin Wound Narrative: A dehiscent longitudinal surgical incision is noted overlying the left knee. The dehiscence extends through all layers and into the subcutaneous adipose tissues. There is no odor or drainage. There is no sign of infection or cellulitis. Dimensions are documented elsewhere. The size and depth of the wound continue to diminish. Most of the open wound demonstrates healthy, pink granulation tissue, which continues to increase weekly. There is minimal bioburden. The margins of the wound appear well beveled, with evidence of peripheral epithelialization. Centrally, the area of exposed fascia has now been eliminated by the overgrowth of healthy, pink granulation tissue. The inferior portion of the wound now demonstrates epithelialization with complete healing. There has been significant improvement within the last week. Hair: normal Neuro oriented x3, CN's II-XII intact bilaterally, moves all extremities, no focal motor deficits and no sensory deficits noted Sensorium / Orientation: awake, alert, oriented to person, oriented to place and oriented to time Cranial Nerves: CN normal except as noted Speech: speech normal Psych Appearance: grossly normal and appropriate Attitude: calm Activity / Motor Behavior: appropriate eye contact Speech: normal speech Mood & Affect: euthymic mood Thought Process: normal thought process Thought Content: normal thought content Attention / Concentration: attention grossly intact Debridement Note Debridement Note Wound debrided: Dehiscent left knee surgical incision Laterality: Left Type of Debridement: Excisional debridement Anesthesia Used: 5% Lidocaine Gel and Cetacaine Depth: Down to and including healthy tissue and in the subcutaneous layer Percentage of wound debrided: 100 Instrument Used: 5mm curette Tissue Removed: Bioburden Severity: Fat Layer Exposed Amount of bleeding with debridement: Mild Bleeding Controlled with: Compression and gauze Patient tolerated procedure: Patient tolerated procedure well Debridement Free Text: The excisional debridement was well-tolerated by the patient. Approval has been obtained for the use of an allograft. A 2 cm x 2 cm EpiFix allograft was selected. The allograft was removed from its sterile packaging. It was cut and fashioned to the appropriate size and shape for complete coverage of the dehiscent left knee wound. The EpiFix was applied topically in the appropriate orientation. 100% of the allograft was utilized. Adaptic Touch was placed over the entire site, and was secured using Steri- Strips. A dry sterile gauze dressing was then placed. This represents the 3rd such allograft application at this site. The procedure was well-tolerated. Post-Debridement Measurements and Additional Note: Post-Debridement Measurements/Treatment WC - Nurse 1 - General Ulcer Assessment Start: 09/30/24 14:41 Freq: Status: Active Protocol: GINA.JAMI Activity Type Activity Date Activity User E-sign Co-sign Detail Recorded Client Recorded Date Recorded By Document 09/30/24 14:41 KW [id number] 09/30/24 14:55 KW Document 10/03/24 11:28 KW [id number] 10/03/24 11:33 KW Document 10/07/24 14:57 KW [id number] 10/07/24 15:10 KW Document 10/10/24 11:36 KW [id number] 10/10/24 11:39 KW Document 10/14/24 14:52 KW [id number] 10/14/24 15:00 KW Document 10/17/24 10:58 KW [id number] 10/17/24 11:34 KW Document 10/21/24 13:49 BMF [id number] 10/21/24 13:59 BMF 09/30/24 10/03/24 10/07/24 14:41 11:28 14:57 WC - Today's Visit Information Type of service Follow-up Visit Nurse-only Follow-up Visit (Physician/SUPERVISOR BENZENE REFINING Visit (Physician/SUPERVISOR BENZENE REFINING ) ) Arrival Mode Ambulatory, Ambulatory Walker Transfer Assistance Accompanied by Patient Identification Verified (Name & Yes Yes Yes ) Patient Requires Transmission-Based Precautions Height and Weight Body Mass Index (BMI) 34.1 34.1 34.1 BMI Classification Obese Obese Obese Vital Signs Temperature (97.8 F-99.1 F) 98.3 F 96.5 F L Temperature Source Temporal Temporal Temporal Pulse Rate (60-100) 74 61 Pulse Location Monitor Monitor Monitor Respiratory Rate (12-18) 16 16 18 Respiratory rate source Observation Monitor Observation Oxygen Delivery Method Room Air Room Air Room Air Blood Pressure (90/60-120/80) 133/69 H 142/69 H Blood Pressure Mean 90 93 Source Monitor Monitor Monitor Position Sitting Semi-Fowlers Sitting Blood Pressure Location Left Arm Right Arm Left Arm History Since Last Visit- (Skip if this is Patient's initial visit) Have you changed medications since your No No No last visit? Any new allergies or adverse reactions No No No Had a fall/change in ADL's that may No No increase risk of falls Signs or symptoms of abuse and/or No No No neglect since last visit Have you been in the hospital since your Yes No No last visit? Has dressing in place as prescribed Yes Yes Yes Has compression in place as prescribed Yes N/A Yes Has offloadiing in place as prescribed N/A N/A N/A Experienced any changes in pain level or No No No management Left Footwear Regular Shoe Regular Shoe Regular Shoe Right Footwear Regular Shoe Regular Shoe Regular Shoe Pain Scale: 0-10 Numeric Is Patient Pain Free? Yes Yes Yes 10/10/24 10/14/24 10/17/24 11:36 14:52 10:58 WC - Today's Visit Information Type of service Nurse-only Nurse-only Nurse-only Visit Visit Visit Arrival Mode Ambulatory, Ambulatory, Ambulatory, Walker Walker Walker Transfer Assistance Accompanied by Patient Identification Verified (Name & Yes Yes Yes ) Patient Requires Transmission-Based Precautions Height and Weight Body Mass Index (BMI) 34.1 34.1 34.1 BMI Classification Obese Obese Obese Vital Signs Temperature (97.8 F-99.1 F) 97.5 F L 97.9 F 98.0 F Temperature Source Temporal Temporal Temporal Pulse Rate (60-100) 62 63 65 Pulse Location Monitor Monitor Monitor Respiratory Rate (12-18) 18 18 16 Respiratory rate source Observation Observation Observation Oxygen Delivery Method Room Air Room Air Room Air Blood Pressure (90/60-120/80) 140/58 H 135/56 H 125/45 H Blood Pressure Mean 85 82 71 Source Monitor Monitor Monitor Position Semi-Fowlers Semi-Fowlers Semi-Fowlers Blood Pressure Location Left Arm Left Arm Left Arm History Since Last Visit- (Skip if this is Patient's initial visit) Have you changed medications since your No No No last visit? Any new allergies or adverse reactions No No No Had a fall/change in ADL's that may No No No increase risk of falls Signs or symptoms of abuse and/or No No No neglect since last visit Have you been in the hospital since your No No No last visit? Has dressing in place as prescribed Yes Yes Yes Has compression in place as prescribed Yes Yes Yes Has offloadiing in place as prescribed N/A N/A N/A Experienced any changes in pain level or No No No management Left Footwear Regular Shoe Regular Shoe Regular Shoe Right Footwear Regular Shoe Regular Shoe Regular Shoe Pain Scale: 0-10 Numeric Is Patient Pain Free? Yes Yes Yes 10/21/24 13:49 WC - Today's Visit Information Type of service Follow-up Visit (Physician/SUPERVISOR BENZENE REFINING ) Arrival Mode Ambulatory Transfer Assistance None Accompanied by Patient Identification Verified (Name & Yes ) Patient Requires Transmission-Based No Precautions Height and Weight Body Mass Index (BMI) 34.1 BMI Classification Obese Vital Signs Temperature (97.8 F-99.1 F) 97.5 F L Temperature Source Temporal Pulse Rate (60-100) 77 Pulse Location Monitor Respiratory Rate (12-18) 16 Respiratory rate source Observation Oxygen Delivery Method Room Air Blood Pressure (90/60-120/80) 140/77 H Blood Pressure Mean 98 Source Monitor Position Sitting Blood Pressure Location Left Arm History Since Last Visit- (Skip if this is Patient's initial visit) Have you changed medications since your No last visit? Any new allergies or adverse reactions No Had a fall/change in ADL's that may No increase risk of falls Signs or symptoms of abuse and/or No neglect since last visit Have you been in the hospital since your No last visit? Has dressing in place as prescribed Yes Has compression in place as prescribed Yes Has offloadiing in place as prescribed N/A Experienced any changes in pain level or No management Left Footwear Regular Shoe Right Footwear Regular Shoe Pain Scale: 0-10 Numeric Is Patient Pain Free? Yes WC - Nurse 1 - General Ulcer Measurement Start: 09/30/24 14:41 Freq: Status: Active Protocol: Activity Type Activity Date Activity User E-sign Co-sign Detail Recorded Client Recorded Date Recorded By Document 09/30/24 14:41 KW [id number] 09/30/24 14:55 KW Document 10/07/24 14:57 KW [id number] 10/07/24 15:10 KW Document 10/14/24 14:52 KW [id number] 10/14/24 15:00 KW Document 10/21/24 13:49 BM [id number] 10/21/24 13:59 BMF 09/30/24 10/07/24 10/14/24 14:41 14:57 14:52 Wound Center Nurse 1 #1,.L knee -Combined with other wound -Current Size (cm) - Length 8 7.6 7 -Current Size (cm) - Width 1.8 2 2 -Current Size (cm) - Depth 0.5 0.4 0.2 -Total Square Cm 14.4 15.2 14 -Date of Last Picture (Recall this 09/30/24 10/07/24 10/14/24 field) -Photo Taken -Epithelialization -Tunneling -Undermining/Tunneling -Circular Undermining -Exudate Amt Medium Small Small -Exudate Type Serosanguineous Serosanguineous Serosanguineous -Wound Margin Distinct, Distinct, Distinct, Outline Outline Outline Attached Attached Attached -Granulation Amt Large (67-100%) Large (67-100%) Large (67-100%) -Granulation Quality [place] -Slough/Fibrin -Necrosis Amt Small (1-33%) Small (1-33%) -Necrotic Tissue Type Adherent Slough Adherent Slough -Texture (Anali-wound Skin Appearance) Assessed Assessed Assessed -Moisture (Anali-wound Skin Appearance) Assessed Assessed Assessed, Maceration -Color (Anali-wound Skin Appearance) Assessed Assessed Assessed, Erythema -Temperature (Anali-wound Skin No Abnormality No Abnormality No Abnormality Appearance) (Pt Warm) (Pt Warm) (Pt Warm) -Tenderness on Palpation (Anali-wound No No No Skin Appearance) -Ulcer Cleansing Soap and Water Soap and Water Soap and Water -Foul Odor after Cleansing No No -Anesthetic Used 5% Lidocaine 5% Lidocaine 5% Lidocaine Gel Gel Gel Lower Limb Edema Present Left Calf (cm) Left Ankle (cm) 10/21/24 13:49 Wound Center Nurse 1 #1,.L knee -Combined with other wound No -Current Size (cm) - Length 7.5 -Current Size (cm) - Width 1.8 -Current Size (cm) - Depth 0.1 -Total Square Cm 13.50 -Date of Last Picture (Recall this 10/21/24 field) -Photo Taken Yes -Epithelialization Small 1-33% -Tunneling No -Undermining/Tunneling No -Circular Undermining No -Exudate Amt Medium -Exudate Type Serosanguineous -Wound Margin Distinct, Outline Attached -Granulation Amt Large (67-100%) -Granulation Quality Pale,Red -Slough/Fibrin Yes -Necrosis Amt Small (1-33%) -Necrotic Tissue Type Adherent Slough -Texture (Anali-wound Skin Appearance) Assessed -Moisture (Anali-wound Skin Appearance) Assessed -Color (Anali-wound Skin Appearance) Assessed -Temperature (Anali-wound Skin No Abnormality Appearance) (Pt Warm) -Tenderness on Palpation (Anali-wound No Skin Appearance) -Ulcer Cleansing Soap and Water -Foul Odor after Cleansing No -Anesthetic Used 4% Lidocaine Solution Lower Limb Edema Present Yes Left Calf (cm) 39 Left Ankle (cm) 25 WC - Nurse 2 - General Ulcer CM Notes Start: 09/30/24 14:41 Freq: Status: Active Protocol: Activity Type Activity Date Activity User E-sign Co-sign Detail Recorded Client Recorded Date Recorded By Document 09/30/24 15:19 DS [id number] 09/30/24 15:23 DS Document 10/07/24 15:21 DS [id number] 10/07/24 15:29 DS Document 10/14/24 15:14 DS [id number] 10/14/24 15:16 DS Document 10/21/24 14:22 JF [id number] 10/21/24 14:24 JF 09/30/24 10/07/24 10/14/24 15:19 15:21 15:14 Wound Center Nurse 2 #1,.L knee -Time 15:19 15:20 15:10 -Correct Patient Yes Yes Yes -Correct Side, Site, Position Yes Yes Yes -Correct Procedure Yes Yes Yes -Procedure Performed Yes Yes Yes -Type of Procedure Debridement Debridement Debridement -Clinical Debridement Subcutaneous Subcutaneous Subcutaneous -Tissue Removed Subcutaneous Subcutaneous Subcutaneous -Post Debridement (cm) - Length 8.5 7.5 7.3 -Post Debridement (cm) - Width 2.0 2.0 2.0 -Post Debridement (cm) - Depth 0.6 0.4 0.3 -Total Square (Post) (cm) 17.00 15.00 14.60 -Area of Debridement (cm) - Length 8.5 7.5 7.3 -Area of Debridement (cm) - Width 2.0 2.0 2.0 -Total Square (Area) (cm) 17.00 15.00 14.60 -Tunneling No No No -Undermining/Tunneling No No No -Circular Undermining No No No -Wound/Ulcer Outcome Not Healed Not Healed Not Healed -Ulcer Cleansing Rinsed/ Rinsed/ Rinsed/ Irrigated with Irrigated with Irrigated with Saline Saline Saline -Foul Odor after Cleansing No No No -Bioengineered Tissue No Yes Yes -Type of Bioengineered Tissue Epifix Mesh Epifix Mesh -Expiration Date 03/24/29 03/24/29 -Product Lot Number [id number] -Percent Used 100 100 -Lot number of Saline Used [id number] -Bleeding Controlled with Pressure Pressure Pressure -Treatment Response Procedure Procedure Procedure Tolerated Well Tolerated Well Tolerated Well -Offloading -Debridement - Subq, 1st 20sq cm Yes No No -Apply Skin Sub - 1st 25 sq cm - Legs 1 1 -Epifix (per sq cm) -Epifix Mesh (per sq cm) 11 11 Pain Scale: 0-10 Numeric Is Patient Pain Free? Yes Yes Yes 10/21/24 14:22 Wound Center Nurse 2 #1,.L knee -Time 14:22 -Correct Patient Yes -Correct Side, Site, Position Yes -Correct Procedure Yes -Procedure Performed Yes -Type of Procedure Debridement -Clinical Debridement Subcutaneous -Tissue Removed Subcutaneous -Post Debridement (cm) - Length 2.8 -Post Debridement (cm) - Width 1.9 -Post Debridement (cm) - Depth 0.1 -Total Square (Post) (cm) 5.32 -Area of Debridement (cm) - Length 2.8 -Area of Debridement (cm) - Width 1.9 -Total Square (Area) (cm) 5.32 -Tunneling No -Undermining/Tunneling No -Circular Undermining No -Wound/Ulcer Outcome Not Healed -Ulcer Cleansing Rinsed/ Irrigated with Saline -Foul Odor after Cleansing No -Bioengineered Tissue Yes -Type of Bioengineered Tissue Epifix -Expiration Date 05/25/29 -Product Lot Number [id number] -Percent Used 100 -Lot number of Saline Used [id number] -Bleeding Controlled with Pressure -Treatment Response Procedure Tolerated Well -Offloading No -Debridement - Subq, 1st 20sq cm No -Apply Skin Sub - 1st 25 sq cm - Legs 1 -Epifix (per sq cm) 4 -Epifix Mesh (per sq cm) Pain Scale: 0-10 Numeric Is Patient Pain Free? Yes - Nurse 3 - General Ulcer D/C NN Start: 09/30/24 14:41 Freq: Status: Active Protocol: Activity Type Activity Date Activity User E-sign Co-sign Detail Recorded Client Recorded Date Recorded By Document 09/30/24 15:51 RB [id number] 09/30/24 15:52 RB Document 10/03/24 11:28 KW [id number] 10/03/24 11:33 KW Document 10/07/24 15:41 KW [id number] 10/07/24 15:41 KW Document 10/10/24 11:36 KW [id number] 10/10/24 11:39 KW Document 10/14/24 16:18 RB [id number] 10/14/24 16:19 RB Document 10/17/24 10:58 KW [id number] 10/17/24 11:34 KW Document 10/21/24 14:55 KW [id number] 10/21/24 14:55 KW 09/30/24 10/03/24 10/07/24 15:51 11:28 15:41 Wound Care Center Nurse 3 #1,.L knee -Ulcer Cleansing Rinsed/ Soap and Water Irrigated with Saline -Negative Pressure Wound Therapy Continue Continue Continue -Setting (mmHg) 125 125 125 -Negative Pressure is Continuous Continuous Continuous -Primary Dressing Covered/Secured with -NPWT Application Charge NPWT & NPWT </= 50 sq NPWT & Debridement (nc cm ($) Debridement (nc ) ) Left -Compression Wrap Randy Wrap Randy Wrap -Other randy Treatment Response Procedure Tolerated Well Vital Signs Temperature (97.8 F-99.1 F) 96.5 F L Temperature Source Temporal Pulse Rate (60-100) 61 Pulse Location Monitor Respiratory Rate (12-18) 16 Respiratory rate source Monitor Oxygen Delivery Method Room Air Blood Pressure (90/60-120/80) 142/69 H Blood Pressure Mean 93 Source Monitor Position Semi-Fowlers Blood Pressure Location Right Arm Pain Scale: 0-10 Numeric Is Patient Pain Free? Yes Yes Yes WC - Visit Discharge Discharge Condition Stable Stable Stable Ambulatory Status Ambulatory, Ambulatory, Ambulatory Walker Walker Transportation Private Auto Private Auto Private Auto Accompanied by Medication Reconcilliation completed & No No No provided to patient/care provider Clinical Summary of Care Provided Yes Yes Yes 10/10/24 10/14/24 10/17/24 11:36 16:18 10:58 Wound Care Center Nurse 3 #1,.L knee -Ulcer Cleansing Soap and Water Soap and Water -Negative Pressure Wound Therapy Continue Continue Continue -Setting (mmHg) 125 125 125 -Negative Pressure is Continuous Continuous Continuous -Primary Dressing Covered/Secured with -NPWT Application Charge NPWT </= 50 sq NPWT & NPWT </= 50 sq cm ($) Debridement (nc cm ($) ) Left -Compression Wrap Randy Wrap Randy Wrap -Other RADNY Treatment Response Procedure Tolerated Well Vital Signs Temperature (97.8 F-99.1 F) 97.5 F L 98.0 F Temperature Source Temporal Temporal Pulse Rate (60-100) 62 65 Pulse Location Monitor Monitor Respiratory Rate (12-18) 18 16 Respiratory rate source Observation Observation Oxygen Delivery Method Room Air Room Air Blood Pressure (90/60-120/80) 140/58 H 125/45 H Blood Pressure Mean 85 71 Source Monitor Monitor Position Semi-Fowlers Semi-Fowlers Blood Pressure Location Left Arm Left Arm Pain Scale: 0-10 Numeric Is Patient Pain Free? Yes Yes Yes WC - Visit Discharge Discharge Condition Stable Stable Stable Ambulatory Status Ambulatory, Ambulatory, Ambulatory, Walker Walker Walker Transportation Private Auto Private Auto Private Auto Accompanied by Medication Reconcilliation completed & No No No provided to patient/care provider Clinical Summary of Care Provided Yes Yes Yes 10/21/24 14:55 Wound Care Center Nurse 3 #1,.L knee -Ulcer Cleansing -Negative Pressure Wound Therapy -Setting (mmHg) -Negative Pressure is -Primary Dressing Covered/Secured with Dry Gauze & Roll Gauze, Secured with Tape -NPWT Application Charge Left -Compression Wrap Randy Wrap -Other Treatment Response Vital Signs Temperature (97.8 F-99.1 F) Temperature Source Pulse Rate (60-100) Pulse Location Respiratory Rate (12-18) Respiratory rate source Oxygen Delivery Method Blood Pressure (90/60-120/80) Blood Pressure Mean Source Position Blood Pressure Location Pain Scale: 0-10 Numeric Is Patient Pain Free? Yes WC - Visit Discharge Discharge Condition Stable Ambulatory Status Ambulatory,Cane Transportation Private Auto Accompanied by Medication Reconcilliation completed & No provided to patient/care provider Clinical Summary of Care Provided Yes Assessment/Plan Assessment/Plan (1) Non-pressure chronic ulcer of left thigh with fat layer exposed: CODE(S): L97.122 - Non-pressure chronic ulcer of left thigh with fat layer exposed (2) Dehiscence of incision: CODE(S): T81.31XA - Disruption of external operation (surgical) wound, not elsewhere classified, initial encounter QUALIFIERS: Encounter type: subsequent encounter Qualified Code(s): T81.31XD - Disruption of external operation (surgical) wound, not elsewhere classified, subsequent encounter (3) Gangrene associated with type 2 diabetes mellitus: CODE(S): E11.52 - Type 2 diabetes mellitus with diabetic peripheral angiopathy with gangrene (4) Status post revision of total replacement of left knee: CODE(S): Z96.652 - Presence of left artificial knee joint (5) Failed total left knee replacement: CODE(S): T84.093A - Other mechanical complication of internal left knee prosthesis, initial encounter QUALIFIERS: Encounter type: subsequent encounter Qualified Code(s): T84.093D - Other mechanical complication of internal left knee prosthesis, subsequent encounter (6) History of left knee surgery: CODE(S): Z98.890 - Other specified postprocedural states (7) Diabetes: CODE(S): E11.9 - Type 2 diabetes mellitus without complications QUALIFIERS: Diabetes mellitus type: type 2 (8) Diabetic polyneuropathy: CODE(S): E11.42 - Type 2 diabetes mellitus with diabetic polyneuropathy (9) GERD (gastroesophageal reflux disease): CODE(S): K21.9 - Gastro-esophageal reflux disease without esophagitis (10) Hyperlipemia: CODE(S): E78.5 - Hyperlipidemia, unspecified (11) Iron deficiency anemia: CODE(S): D50.9 - Iron deficiency anemia, unspecified (12) Essential (primary) hypertension: CODE(S): I10 - Essential (primary) hypertension (13) Debility: CODE(S): R53.81 - Other malaise (14) Status post total right knee replacement: CODE(S): Z96.651 - Presence of right artificial knee joint (15) Osteoarthritis: (16) History of DVT (deep vein thrombosis): CODE(S): Z86.718 - Personal history of other venous thrombosis and embolism (17) Dyslipidemia: CODE(S): E78.5 - Hyperlipidemia, unspecified (18) Hypothyroidism: CODE(S): E03.9 - Hypothyroidism, unspecified (19) Ocular myasthenia gravis: CODE(S): G70.00 - Myasthenia gravis without (acute) exacerbation (20) History of partial thyroidectomy: CODE(S): E89.0 - Postprocedural hypothyroidism (21) History of appendectomy: CODE(S): Z90.49 - Acquired absence of other specified parts of digestive tract (22) History of hysterectomy: CODE(S): Z90.710 - Acquired absence of both cervix and uterus (23) History of cholecystectomy: CODE(S): Z90.49 - Acquired absence of other specified parts of digestive tract (24) Non-smoker: CODE(S): Z78.9 - Other specified health status (25) History of hiatal hernia: CODE(S): Z87.19 - Personal history of other diseases of the digestive system (26) History of revision of total replacement of left knee joint: CODE(S): Z96.652 - Presence of left artificial knee joint (27) History of bilateral cataract extraction: CODE(S): Z98.41 - Cataract extraction status, right eye; Z98.42 - Cataract extraction status, left eye PLAN: Plan This is a 73-year-old female who underwent the fourth revision of a left total knee replacement on June 19, 2024. She developed gangrene, necrosis, and dehiscence at the surgical site. As a result, the patient presented for definitive evaluation and management with respect to her surgical wound. A large amount of necrotic and nonviable tissue has been eliminated from the site of the patient's surgical wound since her initial presentation. Negative pressure wound therapy has been initiated by means of the Wound VAC. The patient appears to be tolerating negative pressure wound therapy without difficulty, which appears to be having a positive effect on the patient's wound healing. There are increasing areas of healthy, pink granulation tissue. The wound appears to be decreasing in size and depth. It is noted that the patient was admitted to [facility] on September 23, 2024, and subsequently discharged on September 26, 2024. She initially presented due to concerns regarding a decrease in her blood sugars. However, initial evaluation in the hospital revealed a cellulitis involving her left leg. She was treated with intravenous Zosyn and vancomycin, and subsequently discharged on September 26, 2024, on cephalexin 500 mg p.o. 4 times daily for 7 days. However, at the time of discharge, the final culture results had not been completed, and the final result indicated the presence of Pseudomonas aeruginosa. Therefore, we placed the patient on Cipro 500 mg p.o. twice daily for a total of 7 days in accordance with the findings of the patient's culture and sensitivity results. All antibiotics have now been completed, and there is no longer any sign of infection or cellulitis. Preauthorization has been received for the use of c ellular tissue products. Therefore, an EpiFix meshed allograft was applied topically to the patient's dehiscent wound today, in conjunction with negative pressure wound therapy. Today's application of the allograft represents the second such allograft application. We are to change the wound VAC twice weekly, at a setting of 125 mmHg continuous negative pressure. The allograft will be left in place until the patient's return visit in 1 week. The patient has been encouraged to optimize her nutritional intake, as well as her diabetes management. She has been encouraged to continue taking Papa as a nutritional supplement. She is to coordinate with her primary care physician with regard to diabetes management. She has been encouraged to elevate her left lower extremity to prevent and minimize swelling. Elevation is to be to heart level, during both daytime and nighttime hours. Avoidance of prolonged idle sitting has been encouraged. Activity as tolerated has been encouraged. Tubigrip's have been dispensed for compression purposes. The patient is to follow-up in 1 week for reevaluation. Total time: 25 minutes
== END 2024-10-24 23:59 | disposition home or self-care (01) ==
LOC: WC 13:45
PROVIDERS: PCP Internal Medicine; Visit Provider Surgery
DX: E11.622 Type 2 diabetes mellitus with other skin ulcer (principal); E11.52 Type 2 diabetes mellitus with diabetic peripheral angiopathy with gangrene; L97.122 Non-pressure chronic ulcer of left thigh with fat layer exposed; G70.00 Myasthenia gravis without (acute) exacerbation; E11.42 Type 2 diabetes mellitus with diabetic polyneuropathy; Z79.890 Hormone replacement therapy; E78.5 Hyperlipidemia, unspecified; Z86.718 Personal history of other venous thrombosis and embolism; I10 Essential (primary) hypertension; K21.9 Gastro-esophageal reflux disease without esophagitis; D50.9 Iron deficiency anemia, unspecified; M19.90 Unspecified osteoarthritis, unspecified site; R53.81 Other malaise; Z90.710 Acquired absence of both cervix and uterus; Z79.84 Long term (current) use of oral hypoglycemic drugs; Z96.653 Presence of artificial knee joint, bilateral; E89.0 Postprocedural hypothyroidism; T81.31XD Disruption of external operation (surgical) wound, not elsewhere classified, subsequent encounter; T84.093D Other mechanical complication of internal left knee prosthesis, subsequent encounter; Z87.19 Personal history of other diseases of the digestive system; Z96.652 Presence of left artificial knee joint; Z90.49 Acquired absence of other specified parts of digestive tract; Z98.41 Cataract extraction status, right eye
CPT/HCPCS: 11042; 15271; 97605; Q4186

== ENCOUNTER 2024-11-18 14:15 | Outpatient (RCR) | payer MEDICARE, SELFPAY ==
[2024-10-25 01:51] VITALS: BP 140/77; PULSE 77; RESP 16; TEMP 36.4; BMI 34.1
[2024-10-28 13:51] VITALS: BP 131/59; PULSE 87; RESP 14; TEMP 35.8; BMI 34.1
--- NOTE | 2024-10-29 18:29 | HP.PCM_ITS ---
History of Present Illness Date of Service: 10/28/24 Chief Complaint: Dehiscent, necrotic surgical wound of the left knee History of Wound: This is a 73-year-old female with a history of left total knee replacement many years ago, which has required several revisions. The most recent revision was performed on June 19, 2024, at the [facility]. This was the fourth left knee revision. Prior revisions required flap reconstruction, and the Plastic Surgery service was involved in the patient's most recent surgery. Postoperatively, the patient was placed on oral doxycycline, which is expected to continue for 3 months. The patient's left lower extremity was locked in extension for 2 weeks. She is now weightbearing on the involved limb. She was admitted to the Transitional Care Unit at [facility] for several weeks postoperatively on June 27, 2024. 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 The patient developed a surgical wound dehiscence and marjorie necrosis and gangrene at the site of her incision. A wound VAC was used initially at the surgical site, but the patient had been using Xeroform more recently. The patient suffers from multiple pre-existing medical conditions, listed herein. She does not smoke. She is using Papa as a nutritional supplement. Her BMI is 34.1. 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 Dehiscence of incision History of revision of total replacement of left knee joint Wears glasses Alcohol use History of steroid therapy Bladder disease Neuropathy Back pain Dietary restriction History of pain when walking Pain Myasthenia gravis Ambulates with cane Rheumatoid arthritis Low iron History of DVT (deep vein thrombosis) Hyperlipemia Difficulty swallowing History of hiatal hernia Gastric reflux Non-smoker Shortness of breath on exertion Chronic cough PONV (postoperative nausea and vomiting) Leg cramps History of edema History of stress test Hypertension Thyroid disease Cataracts, bilateral History of UTI Arthritis Home Medications ?Medication ?Instructions ?Recorded ?Last Taken ?Type folic acid 1 mg tablet 1 mg PO DAILY supplement 06/06/22 History atorvastatin 10 mg tablet 5 mg PO .QOD Cholesterol 06/26/24 18:45 History cholecalciferol (vitamin D3) 50 50 mcg PO DAILY supple ment 09/06/21 06/27/24 History mcg (2,000 unit) capsule ascorbic acid (vitamin C) 500 mg 500 mg PO DAILY suppl ement 02/06/22 06/27/24 History tablet (Vitamin C) dapagliflozin propanediol 5 mg 10 mg PO DAILY blood michaels gar 05/25/22 06/06/22 History tablet (Farxiga) levothyroxine 125 mcg tablet 100 mcg PO DAILY thyroid 05/25/22 06/27/24 History pregabalin 75 mg capsule (Lyrica) 100 mg PO TID pain 0 05/25/22 06/06/22 History hydrochlorothiazide 12.5 mg tablet 12.5 mg PO DAILY Bl ood pressure 06/07/22 Unknown History vibegron 75 mg tablet (Gemtesa) 75 mg PO DAILY Overact cassidy bladder 12/04/22 Unknown History metformin 500 mg tablet,extended 1,000 mg PO BID Diabe freda 06/27/24 06/27/24 05:30 History release 24 hr polysaccharide iron complex 150 mg 65 mg PO QODAY Supp lement 06/27/24 Unknown History iron capsule (Ferrex) losartan 100 mg tablet 100 mg PO DAILY bp 30 days # 30 tabs 07/15/24 Unknown Rx oxycodone 5 mg tablet 5 - 10 mg (1 - 2 x 5 mg) PO Q4H 07/15/24 Unknown Rx PRN PRN Pain Score 4-10 7 days #84 tabs potassium chloride 20 mEq 20 meq PO DAILYCM supplement 30 07/15/24 Unknown Rx tablet,extended release(part/cryst) days #30 tabs arginine 7 gram-glutam 7 1 packet PO DAILY supplement 09/24/24 Unknown History gram-CaHMB 1.5 gsyi-kmipx-yp-min oral pwd pkt (Papa (with collagen)) cephalexin 500 mg capsule 500 mg PO Q6H 7 days #28 cap s 09/26/24 Unknown Rx ciprofloxacin HCl 500 mg tablet 500 mg PO BID #14 tabs 09/29/24 Unknown Rx (Cipro) Allergy/AdvReac Type Severity Reaction Status Date / Time latex Allergy Severe Other Verified 09/23/24 16:23 shellfish derived Allergy Severe PASSED Verified 09/23/24 16:23 OUT, DIARRHEA adhesive Allergy Mild Rash Verified 09/23/24 16:23 levofloxacin AdvReac Intermediate WEAK, Verified 09/23/24 16:23 NAUSEA povidone AdvReac Mild Hives Verified 09/23/24 16:23 Surgical History History of bilateral cataract extraction History of colonoscopy S/P insertion of spinal cord stimulator History of partial thyroidectomy History of appendectomy History of left knee surgery History of hysterectomy History of cholecystectomy Social History household members: spouse Smoking Status: Never smoker Electronic Cigarette Use: not used second hand exposure: No alcohol intake: current alcohol intake frequency: a few times a month Alcohol type: wine substance use type: does not use Vital Signs Vital Signs Vital Signs: Weight Weight: 180 lb 13.313 oz Body Mass Index (BMI) 34.1 Physical Exam Const alert, oriented x3, no apparent distress, no limitations, healthy appearing and well nourished General Appearance: cooperative, comfortable, well kempt and well developed Orientation / Consciousness: awake, oriented to person, oriented to place and oriented to time Exam Limitations: no limitations HEENT normocephalic, head/scalp atraumatic and hearing grossly normal bilaterally Head and Scalp: normal to inspection, normocephalic and atraumatic Face and Sinus: normal facial exam Nose: external nose normal External Ear: external ears normal Eyes EOMs intact bilaterally General Eye: normal appearance of both eyes Neck full ROM Resp normal respiratory effort, normal air movement, no retractions and no use of accessory muscles Effort and Inspection: able to speak in complete sentences Extremity no calf tenderness General Extremity: Negative for clubbing or cyanosis Skin Wound Narrative: A dehiscent longitudinal surgical incision is noted overlying the left knee. The dehiscence extends through all layers and into the subcutaneous tissues. There is no odor or drainage. There is no sign of infection or cellulitis. Dimensions are documented elsewhere. The size and depth of the wound continue t o diminish. The base of the wound demonstrates healthy, pink granulation tissue. There is minimal bioburden. The margins of the wound appear well beveled, with evidence of peripheral epithelialization. Centrally, the area of exposed fascia has been eliminated by the overgrowth of healthy, pink granulation tissue. The inferior portion of the wound demonstrates epithelialization with complete healing. There has been significant improvement again this past week. Hair: normal Neuro oriented x3, CN's II-XII intact bilaterally, moves all extremities, no focal motor deficits and no sensory deficits noted Sensorium / Orientation: awake, alert, oriented to person, oriented to place and oriented to time Cranial Nerves: CN normal except as noted Speech: speech normal Psych Appearance: grossly normal and appropriate Attitude: calm Activity / Motor Behavior: appropriate eye contact Speech: normal speech Mood & Affect: euthymic mood Thought Process: normal thought process Thought Content: normal thought content Attention / Concentration: attention grossly intact Debridement Note Debridement Note Wound debrided: Dehiscent left knee surgical incision Laterality: Left Type of Debridement: Excisional debridement Anesthesia Used: 5% Lidocaine Gel and Cetacaine Depth: Down to and including healthy tissue and in the subcutaneous layer Percentage of wound debrided: 100 Instrument Used: 5mm curette Tissue Removed: Bioburden Severity: Fat Layer Exposed Amount of bleeding with debridement: Mild Bleeding Controlled with: Compression and gauze Patient tolerated procedure: Patient tolerated procedure well Debridement Free Text: The excisional debridement was well-tolerated by the patient. Approval has been obtained for the use of an allograft. A 2 cm x 2 cm EpiFix allograft was selected. The allograft was removed from its sterile packaging. It was cut and fashioned to the appropriate size and shape for complete coverage of the dehiscent left knee wound. The EpiFix was applied topically in the appropriate orientation. 100% of the allograft was utilized. Adaptic Touch was placed over the entire site, and was secured using Steri- Strips. A dry sterile gauze dressing was then placed. This represents the 4th such allograft application at this site. The procedure was well-tolerated. Post-Debridement Measurements and Additional Note: Post-Debridement Measurements/Treatment - Nurse 1 - General Ulcer Assessment Start: 10/28/24 13:51 Freq: Status: Active Protocol: GINA.LOWEXT Activity Type Activity Date Activity User E-sign Co-sign Detail Recorded Client Recorded Date Recorded By Document 10/28/24 13:51 ML [id number] 10/28/24 13:53 ML 10/28/24 13:51 - Today's Visit Information Type of service Follow-up Visit (Physician/LINK ASSEMBLER ) Arrival Mode Ambulatory,Cane Transfer Assistance None Patient Identification Verified (Name & Yes ) Patient Requires Transmission-Based No Precautions Height and Weight Body Mass Index (BMI) 34.1 BMI Classification Obese Vital Signs Temperature (97.8 F-99.1 F) 96.5 F L Temperature Source Temporal Pulse Rate (60-100) 87 Pulse Location Monitor Respiratory Rate (12-18) 14 Respiratory rate source Observation Blood Pressure (90/60-120/80) 131/59 H Blood Pressure Mean 83 Source Monitor Position Sitting Blood Pressure Location Right Arm History Since Last Visit- (Skip if this is Patient's initial visit) Have you changed medications since your No last visit? Any new allergies or adverse reactions No Had a fall/change in ADL's that may No increase risk of falls Signs or symptoms of abuse and/or No neglect since last visit Have you been in the hospital since your No last visit? Has dressing in place as prescribed Yes Has compression in place as prescribed Yes Has offloadiing in place as prescribed N/A Experienced any changes in pain level or No management Pain Scale: 0-10 Numeric Is Patient Pain Free? Yes WC - Nurse 1 - General Ulcer Measurement Start: 10/28/24 13:51 Freq: Status: Active Protocol: Activity Type Activity Date Activity User E-sign Co-sign Detail Recorded Client Recorded Date Recorded By Document 10/28/24 13:51 ML [id number] 10/28/24 13:53 ML 10/28/24 13:51 Wound Center Nurse 1 #1,.L knee -Current Size (cm) - Length 3.5 -Current Size (cm) - Width 1.5 -Current Size (cm) - Depth 0.3 -Total Square Cm 5.25 -Exudate Amt Medium -Exudate Type Serosanguineous -Wound Margin Distinct, Outline Attached -Granulation Amt Medium (34-66%) -Slough/Fibrin Yes -Necrosis Amt Medium (34-66%) -Necrotic Tissue Type Adherent Slough -Texture (Anali-wound Skin Appearance) Assessed -Moisture (Anali-wound Skin Appearance) Assessed -Color (Anali-wound Skin Appearance) Assessed -Temperature (Anali-wound Skin No Abnormality Appearance) (Pt Warm) -Tenderness on Palpation (Anali-wound No Skin Appearance) -Ulcer Cleansing Soap and Water -Foul Odor after Cleansing No -Anesthetic Used 5% Lidocaine Gel WC - Nurse 2 - General Ulcer CM Notes Start: 10/28/24 13:51 Freq: Status: Active Protocol: Activity Type Activity Date Activity User E-sign Co-sign Detail Recorded Client Recorded Date Recorded By Document 10/28/24 14:23 DS [id number] 10/28/24 14:24 DS 10/28/24 14:23 Wound Center Nurse 2 -Time 14:18 -Correct Patient Yes -Correct Side, Site, Position Yes -Correct Procedure Yes -Procedure Performed Yes -Type of Procedure Debridement -Clinical Debridement Subcutaneous -Tissue Removed Subcutaneous -Post Debridement (cm) - Length 3.1 -Post Debridement (cm) - Width 1.8 -Post Debridement (cm) - Depth 0.1 -Total Square (Post) (cm) 5.58 -Area of Debridement (cm) - Length 3.1 -Area of Debridement (cm) - Width 1.8 -Total Square (Area) (cm) 5.58 -Tunneling No -Undermining/Tunneling No -Circular Undermining No -Wound/Ulcer Outcome Not Healed -Bioengineered Tissue Yes -Type of Bioengineered Tissue Epifix -Expiration Date 06/24/29 -Product Lot Number [id number] -Percent Used 100 -Lot number of Saline Used [id number] -Bleeding Controlled with Pressure -Treatment Response Procedure Tolerated Well -Debridement - Subq, 1st 20sq cm No -Apply Skin Sub - 1st 25 sq cm - Legs 1 -Epifix (per sq cm) 4 Pain Scale: 0-10 Numeric Is Patient Pain Free? Yes Charges/Coding Procedures Integumentary [id number]: [id number] Skin sub graft trnk/arm/leg Assessment/Plan Assessment/Plan (1) Non-pressure chronic ulcer of left thigh with fat layer exposed: CODE(S): L97.122 - Non-pressure chronic ulcer of left thigh with fat layer exposed (2) Dehiscence of incision: CODE(S): T81.31XA - Disruption of external operation (surgical) wound, not elsewhere classified, initial encounter QUALIFIERS: Encounter type: subsequent encounter Qualified Code(s): T81.31XD - Disruption of external operation (surgical) wound, not elsewhere classified, subsequent encounter (3) Gangrene associated with type 2 diabetes mellitus: CODE(S): E11.52 - Type 2 diabetes mellitus with diabetic peripheral angiopathy with gangrene (4) Status post revision of total replacement of left knee: CODE(S): Z96.652 - Presence of left artificial knee joint (5) Failed total left knee replacement: CODE(S): T84.093A - Other mechanical complication of internal left knee prosthesis, initial encounter QUALIFIERS: Encounter type: subsequent encounter Qualified Code(s): T84.093D - Other mechanical complication of internal left knee prosthesis, subsequent encounter (6) History of left knee surgery: CODE(S): Z98.890 - Other specified postprocedural states (7) Diabetes: CODE(S): E11.9 - Type 2 diabetes mellitus without complications QUALIFIERS: Diabetes mellitus type: type 2 (8) Diabetic polyneuropathy: CODE(S): E11.42 - Type 2 diabetes mellitus with diabetic polyneuropathy (9) GERD (gastroesophageal reflux disease): CODE(S): K21.9 - Gastro-esophageal reflux disease without esophagitis (10) Hyperlipemia: CODE(S): E78.5 - Hyperlipidemia, unspecified (11) Iron deficiency anemia: CODE(S): D50.9 - Iron deficiency anemia, unspecified (12) Essential (primary) hypertension: CODE(S): I10 - Essential (primary) hypertension (13) Debility: CODE(S): R53.81 - Other malaise (14) Status post total right knee replacement: CODE(S): Z96.651 - Presence of right artificial knee joint (15) Osteoarthritis: (16) History of DVT (deep vein thrombosis): CODE(S): Z86.718 - Personal history of other venous thrombosis and embolism (17) Dyslipidemia: CODE(S): E78.5 - Hyperlipidemia, unspecified (18) Hypothyroidism: CODE(S): E03.9 - Hypothyroidism, unspecified (19) Ocular myasthenia gravis: CODE(S): G70.00 - Myasthenia gravis without (acute) exacerbation (20) History of partial thyroidectomy: CODE(S): E89.0 - Postprocedural hypothyroidism (21) History of appendectomy: CODE(S): Z90.49 - Acquired absence of other specified parts of digestive tract (22) History of hysterectomy: CODE(S): Z90.710 - Acquired absence of both cervix and uterus (23) History of cholecystectomy: CODE(S): Z90.49 - Acquired absence of other specified parts of digestive tract (24) Non-smoker: CODE(S): Z78.9 - Other specified health status (25) History of hiatal hernia: CODE(S): Z87.19 - Personal history of other diseases of the digestive system (26) History of revision of total replacement of left knee joint: CODE(S): Z96.652 - Presence of left artificial knee joint (27) History of bilateral cataract extraction: CODE(S): Z98.41 - Cataract extraction status, right eye; Z98.42 - Cataract extraction status, left eye PLAN: Plan This is a 73-year-old female who underwent the fourth revision of a left total knee replacement on June 19, 2024. She developed gangrene, necrosis, and dehiscence at the surgical site. As a result, the patient presented for definitive evaluation and management with respect to her surgical wound. The large amount of necrotic and nonviable tissue has been eliminated from the site of the patient's surgical wound since her initial presentation. Negative pressure wound therapy has been implemented by means of the Wound VAC. The patient tolerated negative pressure wound therapy without difficulty, which appears to have had a positive effect on the patient's wound healing. There are increasing areas of healthy, pink granulation tissue, which now covers the entirety of the remaining wound. The wound appears to be decreasing in size and depth. Preauthorization has been received for the use of cellular tissue products. Therefore, an EpiFix allograft was applied topically to the patient's dehiscent wound today, representing the 4th such application of an allograft at this site. Because of the patient's good progress to date, and her dislike for the use of the Wound VAC, we are to continue with a Wound VAC holiday to monitor her progress with the use of an allograft alone. The allograft site is to be left intact and undisturbed until the patient's return visit in 1 week. The patient has been encouraged to optimize her nutritional intake, as well as her diabetes management. She has been encouraged to continue taking protein nutritional drinks on a daily basis. She is to coordinate with her primary care physician with regard to diabetes management. She has been encouraged to elevate her left lower extremity to prevent and minimize swelling. Elevation is to be to heart level, during both daytime and nighttime hours. Avoidance of prolonged idle sitting has been encouraged. Activity as tolerated has been encouraged. Tubigrip's have been dispensed for compression purposes. The patient is to follow-up in 1 week for reevaluation. Total time: 25 minutes
[2024-11-04 13:44] VITALS: BP 111/58; PULSE 69; RESP 18; TEMP 36.8; BMI 34.1
--- NOTE | 2024-11-05 15:18 | NURSING ---
PHOTO 11/04/24 LEFT KNEE
--- NOTE | 2024-11-05 15:28 | HP.PCM_ITS ---
History of Present Illness Date of Service: 11/04/24 Chief Complaint: Dehiscent, necrotic surgical wound of the left knee History of Wound: This is a 73-year-old female with a history of left total knee replacement many years ago, which has required several revisions. The most recent revision was performed on June 19, 2024, at the [facility]. This was the fourth left knee revision. Prior revisions required flap reconstruction, and the Plastic Surgery service was involved in the patient's most recent surgery. Postoperatively, the patient was placed on oral doxycycline, which is expected to continue for 3 months. The patient's left lower extremity was locked in extension for 2 weeks. She is now weightbearing on the involved limb. She was admitted to the Transitional Care Unit at [facility] for several weeks postoperatively on June 27, 2024. She has returned to home, with volunteer assistant care from her . The patient developed a surgical wound dehiscence and marjorie necrosis and gangrene at the site of her incision. A wound VAC was used initially at the surgical site, but the patient had been using Xeroform more recently. The patient suffers from multiple pre-existing medical conditions, listed herein. She does not smoke. She is using Papa as a nutritional supplement. Her BMI is 34.1. 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 Dehiscence of incision History of revision of total replacement of left knee joint Wears glasses Alcohol use History of steroid therapy Bladder disease Neuropathy Back pain Dietary restriction History of pain when walking Pain Myasthenia gravis Ambulates with cane Rheumatoid arthritis Low iron History of DVT (deep vein thrombosis) Hyperlipemia Difficulty swallowing History of hiatal hernia Gastric reflux Non-smoker Shortness of breath on exertion Chronic cough PONV (postoperative nausea and vomiting) Leg cramps History of edema History of stress test Hypertension Thyroid disease Cataracts, bilateral History of UTI Arthritis Home Medications ?Medication ?Instructions ?Recorded ?Last Taken ?Type folic acid 1 mg tablet 1 mg PO DAILY supplement 06/06/22 History atorvastatin 10 mg tablet 5 mg PO .QOD Cholesterol 06/26/24 18:45 History cholecalciferol (vitamin D3) 50 50 mcg PO DAILY supple ment 09/06/21 06/27/24 History mcg (2,000 unit) capsule ascorbic acid (vitamin C) 500 mg 500 mg PO DAILY suppl ement 02/06/22 06/27/24 History tablet (Vitamin C) dapagliflozin propanediol 5 mg 10 mg PO DAILY blood michaels gar 05/25/22 06/06/22 History tablet (Farxiga) levothyroxine 125 mcg tablet 100 mcg PO DAILY thyroid 05/25/22 06/27/24 History pregabalin 75 mg capsule (Lyrica) 100 mg PO TID pain 0 05/25/22 06/06/22 History hydrochlorothiazide 12.5 mg tablet 12.5 mg PO DAILY Bl ood pressure 06/07/22 Unknown History vibegron 75 mg tablet (Gemtesa) 75 mg PO DAILY Overact cassidy bladder 12/04/22 Unknown History metformin 500 mg tablet,extended 1,000 mg PO BID Diabe freda 06/27/24 06/27/24 05:30 History release 24 hr polysaccharide iron complex 150 mg 65 mg PO QODAY Supp lement 06/27/24 Unknown History iron capsule (Ferrex) losartan 100 mg tablet 100 mg PO DAILY bp 30 days # 30 tabs 07/15/24 Unknown Rx oxycodone 5 mg tablet 5 - 10 mg (1 - 2 x 5 mg) PO Q4H 07/15/24 Unknown Rx PRN PRN Pain Score 4-10 7 days #84 tabs potassium chloride 20 mEq 20 meq PO DAILYCM supplement 30 07/15/24 Unknown Rx tablet,extended release(part/cryst) days #30 tabs arginine 7 gram-glutam 7 1 packet PO DAILY supplement 09/24/24 Unknown History gram-CaHMB 1.5 [id number]-ywixb-bq-min oral pwd pkt (Papa (with collagen)) cephalexin 500 mg capsule 500 mg PO Q6H 7 days #28 cap s 09/26/24 Unknown Rx ciprofloxacin HCl 500 mg tablet 500 mg PO BID #14 tabs 09/29/24 Unknown Rx (Cipro) Allergy/AdvReac Type Severity Reaction Status Date / Time latex Allergy Severe Other Verified 09/23/24 16:23 shellfish derived Allergy Severe PASSED Verified 09/23/24 16:23 OUT, DIARRHEA adhesive Allergy Mild Rash Verified 09/23/24 16:23 levofloxacin AdvReac Intermediate WEAK, Verified 09/23/24 16:23 NAUSEA povidone AdvReac Mild Hives Verified 09/23/24 16:23 Surgical History History of bilateral cataract extraction History of colonoscopy S/P insertion of spinal cord stimulator History of partial thyroidectomy History of appendectomy History of left knee surgery History of hysterectomy History of cholecystectomy Social History household members: spouse Smoking Status: Never smoker Electronic Cigarette Use: not used second hand exposure: No alcohol intake: current alcohol intake frequency: a few times a month Alcohol type: wine substance use type: does not use Vital Signs Vital Signs Vital Signs: Weight Weight: 180 lb 13.313 oz Body Mass Index (BMI) 34.1 Physical Exam Const alert, oriented x3, no apparent distress, no limitations, healthy appearing and well nourished General Appearance: cooperative, comfortable, well kempt and well developed Orientation / Consciousness: awake, oriented to person, oriented to place and oriented to time Exam Limitations: no limitations HEENT normocephalic, head/scalp atraumatic and hearing grossly normal bilaterally Head and Scalp: normal to inspection, normocephalic and atraumatic Face and Sinus: normal facial exam Nose: external nose normal External Ear: external ears normal Eyes EOMs intact bilaterally General Eye: normal appearance of both eyes Neck full ROM Resp normal respiratory effort, normal air movement, no retractions and no use of accessory muscles Effort and Inspection: able to speak in complete sentences Extremity no calf tenderness General Extremity: Negative for clubbing or cyanosis Skin Wound Narrative: A dehiscent longitudinal surgical incision is noted overlying the left knee. The dehiscence extends through all layers and into the subcutaneous tissues. There is no odor or drainage. There is no sign of infection or cellulitis. Dimensions are documented elsewhere. The size and depth of the wound continue t o diminish. The base of the wound demonstrates healthy, pink granulation tissue. There is minimal bioburden. The margins of the wound appear well beveled, with evidence of peripheral epithelialization. Centrally, the area of exposed fascia has been eliminated by the overgrowth of healthy, pink granulation tissue. The inferior portion of the wound demonstrates epithelialization with complete healing. There has been significant improvement again this past week. Hair: normal Neuro oriented x3, CN's II-XII intact bilaterally, moves all extremities, no focal motor deficits and no sensory deficits noted Sensorium / Orientation: awake, alert, oriented to person, oriented to place and oriented to time Cranial Nerves: CN normal except as noted Speech: speech normal Psych Appearance: grossly normal and appropriate Attitude: calm Activity / Motor Behavior: appropriate eye contact Speech: normal speech Mood & Affect: euthymic mood Thought Process: normal thought process Thought Content: normal thought content Attention / Concentration: attention grossly intact Debridement Note Debridement Note Wound debrided: Dehiscent left knee surgical incision Laterality: Left Type of Debridement: Excisional debridement Anesthesia Used: 5% Lidocaine Gel and Cetacaine Depth: Down to and including healthy tissue and in the subcutaneous layer Percentage of wound debrided: 100 Instrument Used: 5mm curette Tissue Removed: Bioburden Severity: Fat Layer Exposed Amount of bleeding with debridement: Mild Bleeding Controlled with: Compression and gauze Patient tolerated procedure: Patient tolerated procedure well Debridement Free Text: The excisional debridement was well-tolerated by the patient. Approval has been obtained for the use of an allograft. A 2 cm x 2 cm EpiFix allograft was selected. The allograft was removed from its sterile packaging. It was cut and fashioned to the appropriate size and shape for complete coverage of the dehiscent left knee wound. The EpiFix was applied topically in the appropriate orientation. 100% of the allograft was utilized. Adaptic Touch was placed over the entire site, and was secured using Steri- Strips. A dry sterile gauze dressing was then placed. This represents the 5th such allograft application at this site. The procedure was well-tolerated. Post-Debridement Measurements and Additional Note: Post-Debridement Measurements/Treatment - Nurse 1 - General Ulcer Assessment Start: 10/28/24 13:51 Freq: Status: Active Protocol: [email or web address] Activity Type Activity Date Activity User E-sign Co-sign Detail Recorded Client Recorded Date Recorded By Document 10/28/24 13:51 ML [id number] 10/28/24 13:53 ML Document 11/04/24 13:44 KW [id number] 11/04/24 13:53 KW 10/28/24 11/04/24 13:51 13:44 - Today's Visit Information Type of service Follow-up Visit Follow-up Visit (Physician/DESK ASSISTANT (Physician/DESK ASSISTANT ) ) Arrival Mode Ambulatory,Cane Ambulatory,Cane Transfer Assistance None Accompanied by Patient Identification Verified (Name & Yes Yes ) Patient Requires Transmission-Based No Precautions Height and Weight Body Mass Index (BMI) 34.1 34.1 BMI Classification Obese Obese Vital Signs Temperature (97.8 F-99.1 F) 96.5 F L 98.2 F Temperature Source Temporal Temporal Pulse Rate (60-100) 87 69 Pulse Location Monitor Monitor Respiratory Rate (12-18) 14 18 Respiratory rate source Observation Observation Oxygen Delivery Method Room Air Blood Pressure (90/60-120/80) 131/59 H 111/58 L Blood Pressure Mean 83 75 Source Monitor Monitor Position Sitting Semi-Fowlers Blood Pressure Location Right Arm Left Arm History Since Last Visit- (Skip if this is Patient's initial visit) Have you changed medications since your No No last visit? Any new allergies or adverse reactions No No Had a fall/change in ADL's that may No No increase risk of falls Signs or symptoms of abuse and/or No No neglect since last visit Have you been in the hospital since your No No last visit? Has dressing in place as prescribed Yes Yes Has compression in place as prescribed Yes Yes Has offloadiing in place as prescribed N/A N/A Experienced any changes in pain level or No No management Left Footwear Regular Shoe Right Footwear Regular Shoe Pain Scale: 0-10 Numeric Is Patient Pain Free? Yes Yes WC - Nurse 1 - General Ulcer Measurement Start: 10/28/24 13:51 Freq: Status: Active Protocol: Activity Type Activity Date Activity User E-sign Co-sign Detail Recorded Client Recorded Date Recorded By Document 10/28/24 13:51 ML [id number] 10/28/24 13:53 ML Document 11/04/24 13:44 KW [id number] 11/04/24 13:53 KW 10/28/24 11/04/24 13:51 13:44 Wound Center Nurse 1 #1,.L knee -Current Size (cm) - Length 3.5 2.5 -Current Size (cm) - Width 1.5 1.5 -Current Size (cm) - Depth 0.3 0.3 -Total Square Cm 5.25 3.75 -Date of Last Picture (Recall this 11/04/24 field) -Epithelialization Medium 34-66% -Exudate Amt Medium Large -Exudate Type Serosanguineous Serosanguineous -Wound Margin Distinct, Thickened & Outline Rolled Under Attached -Granulation Amt Medium (34-66%) Large (67-100%) -Granulation Quality [place],Red -Slough/Fibrin Yes -Necrosis Amt Medium (34-66%) Medium (34-66%) -Necrotic Tissue Type Adherent Slough Adherent Slough -Texture (Anali-wound Skin Appearance) Assessed Assessed, Scarring -Moisture (Anali-wound Skin Appearance) Assessed Assessed, Maceration -Color (Anali-wound Skin Appearance) Assessed Assessed -Temperature (Anali-wound Skin No Abnormality No Abnormality Appearance) (Pt Warm) (Pt Warm) -Tenderness on Palpation (Anali-wound No No Skin Appearance) -Ulcer Cleansing Soap and Water Soap and Water -Foul Odor after Cleansing No No -Anesthetic Used 5% Lidocaine 5% Lidocaine Gel Gel WC - Nurse 2 - General Ulcer CM Notes Start: 10/28/24 13:51 Freq: Status: Active Protocol: Activity Type Activity Date Activity User E-sign Co-sign Detail Recorded Client Recorded Date Recorded By Document 10/28/24 14:23 DS [id number] 10/28/24 14:24 DS Document 11/04/24 14:06 DS [id number] 11/04/24 14:13 DS 10/28/24 11/04/24 14:23 14:06 Wound Center Nurse 2 #1,.L knee -Time 14:18 14:06 -Correct Patient Yes Yes -Correct Side, Site, Position Yes Yes -Correct Procedure Yes Yes -Procedure Performed Yes -Type of Procedure Debridement Debridement -Clinical Debridement Subcutaneous Subcutaneous -Tissue Removed Subcutaneous Subcutaneous -Post Debridement (cm) - Length 3.1 2.0 -Post Debridement (cm) - Width 1.8 1.7 -Post Debridement (cm) - Depth 0.1 0.1 -Total Square (Post) (cm) 5.58 3.40 -Area of Debridement (cm) - Length 3.1 2.0 -Area of Debridement (cm) - Width 1.8 1.7 -Total Square (Area) (cm) 5.58 3.40 -Tunneling No No -Undermining/Tunneling No No -Circular Undermining No No -Wound/Ulcer Outcome Not Healed Not Healed -Ulcer Cleansing Rinsed/ Irrigated with Saline -Foul Odor after Cleansing No -Bioengineered Tissue Yes Yes -Type of Bioengineered Tissue Epifix Epifix -Expiration Date 06/24/29 06/24/29 -Product Lot Number [id number] -Percent Used 100 100 -Lot number of Saline Used [id number] -Bleeding Controlled with Pressure Pressure -Treatment Response Procedure Procedure Tolerated Well Tolerated Well -Debridement - Subq, 1st 20sq cm No No -Apply Skin Sub - 1st 25 sq cm - Legs 1 1 -Epifix (per sq cm) 4 4 Pain Scale: 0-10 Numeric Is Patient Pain Free? Yes Yes - Nurse 3 - General Ulcer D/C NN Start: 10/28/24 13:51 Freq: Status: Active Protocol: Activity Type Activity Date Activity User E-sign Co-sign Detail Recorded Client Recorded Date Recorded By Document 11/04/24 14:29 KW [id number] 11/04/24 14:29 KW 11/04/24 14:29 Wound Care Center Nurse 3 #1,.L knee -Primary Dressing Covered/Secured with Dry Gauze & Roll Gauze, Secured with Tape Left -Compression Wrap Randy Wrap Pain Scale: 0-10 Numeric Is Patient Pain Free? Yes - Visit Discharge Discharge Condition Stable Ambulatory Status Ambulatory,Cane Transportation Private Auto Accompanied by Medication Reconcilliation completed & No provided to patient/care provider Clinical Summary of Care Provided Yes Charges/Coding Procedures Integumentary [id number]: [id number] Skin sub graft trnk/arm/leg Assessment/Plan Assessment/Plan (1) Non-pressure chronic ulcer of left thigh with fat layer exposed: CODE(S): L97.122 - Non-pressure chronic ulcer of left thigh with fat layer exposed (2) Dehiscence of incision: CODE(S): T81.31XA - Disruption of external operation (surgical) wound, not elsewhere classified, initial encounter QUALIFIERS: Encounter type: subsequent encounter Qualified Code(s): T81.31XD - Disruption of external operation (surgical) wound, not elsewhere classified, subsequent encounter (3) Gangrene associated with type 2 diabetes mellitus: CODE(S): E11.52 - Type 2 diabetes mellitus with diabetic peripheral angiopathy with gangrene (4) Status post revision of total replacement of left knee: CODE(S): Z96.652 - Presence of left artificial knee joint (5) Failed total left knee replacement: CODE(S): T84.093A - Other mechanical complication of internal left knee prosthesis, initial encounter QUALIFIERS: Encounter type: subsequent encounter Qualified Code(s): T84.093D - Other mechanical complication of internal left knee pr osthesis, subsequent encounter (6) History of left knee surgery: CODE(S): Z98.890 - Other specified postprocedural states (7) Diabetes: CODE(S): E11.9 - Type 2 diabetes mellitus without complications QUALIFIERS: Diabetes mellitus type: type 2 (8) Diabetic polyneuropathy: CODE(S): E11.42 - Type 2 diabetes mellitus with diabetic polyneuropathy (9) GERD (gastroesophageal reflux disease): CODE(S): K21.9 - Gastro-esophageal reflux disease without esophagitis (10) Hyperlipemia: CODE(S): E78.5 - Hyperlipidemia, unspecified (11) Iron deficiency anemia: CODE(S): D50.9 - Iron deficiency anemia, unspecified (12) Essential (primary) hypertension: CODE(S): I10 - Essential (primary) hypertension (13) Debility: CODE(S): R53.81 - Other malaise (14) Status post total right knee replacement: CODE(S): Z96.651 - Presence of right artificial knee joint (15) Osteoarthritis: (16) History of DVT (deep vein thrombosis): CODE(S): Z86.718 - Personal history of other venous thrombosis and embolism (17) Dyslipidemia: CODE(S): E78.5 - Hyperlipidemia, unspecified (18) Hypothyroidism: CODE(S): E03.9 - Hypothyroidism, unspecified (19) Ocular myasthenia gravis: CODE(S): G70.00 - Myasthenia gravis without (acute) exacerbation (20) History of partial thyroidectomy: CODE(S): E89.0 - Postprocedural hypothyroidism (21) History of appendectomy: CODE(S): Z90.49 - Acquired absence of other specified parts of digestive tract (22) History of hysterectomy: CODE(S): Z90.710 - Acquired absence of both cervix and uterus (23) History of cholecystectomy: CODE(S): Z90.49 - Acquired absence of other specified parts of digestive tract (24) Non-smoker: CODE(S): Z78.9 - Other specified health status (25) History of hiatal hernia: CODE(S): Z87.19 - Personal history of other diseases of the digestive system (26) History of revision of total replacement of left knee joint: CODE(S): Z96.652 - Presence of left artificial knee joint (27) History of bilateral cataract extraction: CODE(S): Z98.41 - Cataract extraction status, right eye; Z98.42 - Cataract extraction status, left eye PLAN: Plan This is a 73-year-old female who underwent the fourth revision of a left total knee replacement on June 19, 2024. She developed gangrene, necrosis, and dehiscence at the surgical site. As a result, the patient presented for d efinitive evaluation and management with respect to her surgical wound. The large amount of necrotic and nonviable tissue has been eliminated from the site of the patient's surgical wound since her initial presentation. Negative pressure wound therapy has been implemented by means of the Wound VAC until recently. There are increasing areas of healthy, pink granulation tissue, which now covers the entirety of the remaining wound. The wound appears to be decreasing in size and depth. Preauthorization has been received for the use of cellular tissue products. Therefore, an EpiFix allograft was applied topically to the patient's dehiscent wound today, representing the 5th such application of an allograft at this site. We are to discontinue the use of negative pressure wound therapy. The allograft site is to be left intact and undisturbed until the patient's return visit in 1 week. The patient has been encouraged to optimize her nutritional intake, as well as her diabetes management. She has been encouraged to continue taking protein nutritional drinks on a daily basis. She is to coordinate with her primary care physician with regard to diabetes management. She has been encouraged to elevate her left lower extremity to prevent and minimize swelling. Elevation is to be to heart level, during both daytime and nighttime hours. Avoidance of prolonged idle sitting has been encouraged. Activity as tolerated has been encouraged. Tubigrip's have been dispensed for compression purposes. The patient is to follow-up in 1 week for reevaluation. Total time: 26 minutes
[2024-11-11 14:04] VITALS: BP 143/63; PULSE 71; RESP 18; TEMP 36.4; BMI 34.1
--- NOTE | 2024-11-12 08:05 | NURSING ---
PHOTO 11/11/24 Left Knee
--- NOTE | 2024-11-14 13:21 | PCM.WC.HP ---
History of Present Illness Date of Service: 11/11/24 Chief Complaint: Dehiscent, necrotic surgical wound of the left knee History of Wound: This is a 73-year-old female with a history of left total knee replacement many years ago, which has required several revisions. The most recent revision was performed on June 19, 2024, at the [facility]. This was the fourth left knee revision. Prior revisions required flap reconstruction, and the Plastic Surgery service was involved in the patient's most recent surgery. Postoperatively, the patient was placed on oral doxycycline, which is expected to continue for 3 months. The patient's left lower extremity was locked in extension for 2 weeks. She is now weightbearing on the involved limb. She was admitted to the Transitional Care Unit at [facility] for several weeks postoperatively on June 27, 2024. She has returned to home, with respiratory care assistant care from her . The patient developed a surgical wound dehiscence and marjorie necrosis and gangrene at the site of her incision. A wound VAC was used initially at the surgical site, but the patient had been using Xeroform more recently. The patient suffers from multiple pre-existing medical conditions, listed herein. She does not smoke. She is using Papa as a nutritional supplement. Her BMI is 34.1. 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 Dehiscence of incision History of revision of total replacement of left knee joint Wears glasses Alcohol use History of steroid therapy Bladder disease Neuropathy Back pain Dietary restriction History of pain when walking Pain Myasthenia gravis Ambulates with cane Rheumatoid arthritis Low iron History of DVT (deep vein thrombosis) Hyperlipemia Difficulty swallowing History of hiatal hernia Gastric reflux Non-smoker Shortness of breath on exertion Chronic cough PONV (postoperative nausea and vomiting) Leg cramps History of edema History of stress test Hypertension Thyroid disease Cataracts, bilateral History of UTI Arthritis Home Medications ?Medication ?Instructions ?Recorded ?Last Taken ?Type folic acid 1 mg tablet 1 mg PO DAILY supplement 10/13/13 06/06/22 History atorvastatin 10 mg tablet 5 mg PO .QOD Cholesterol 09/06/21 06/26/24 18:45 History cholecalciferol (vitamin D3) 50 50 mcg PO DAILY supplement 09/06/21 06/27/24 History mcg (2,000 unit) capsule ascorbic acid (vitamin C) 500 mg 500 mg PO DAILY supplement 02/06/22 06/27/24 History tablet (Vitamin C) dapagliflozin propanediol 5 mg 10 mg PO DAILY blood sugar 05/25/22 06/06/22 History tablet (Farxiga) levothyroxine 125 mcg tablet 100 mcg PO DAILY thyroid 05/25/22 06/27/24 History pregabalin 75 mg capsule (Lyrica) 100 mg PO TID pain 05/25/22 06/06/22 History hydrochlorothiazide 12.5 mg tablet 12.5 mg PO DAILY Blood pressure 06/07/22 Unknown History vibegron 75 mg tablet (Gemtesa) 75 mg PO DAILY Overactive bladder 12/04/22 Unknown History metformin 500 mg tablet,extended 1,000 mg PO BID Diabetes 06/27/24 06/27/24 05:30 History release 24 hr polysaccharide iron complex 150 mg 65 mg PO QODAY Supplement 06/27/24 Unknown History iron capsule (Ferrex) losartan 100 mg tablet 100 mg PO DAILY bp 30 days #30 tabs 07/15/24 Unknown Rx oxycodone 5 mg tablet 5 - 10 mg (1 - 2 x 5 mg) PO Q4H 07/15/24 Unknown Rx PRN PRN Pain Score 4-10 7 days #84 tabs potassium chloride 20 mEq 20 meq PO DAILYCM supplement 30 07/15/24 Unknown Rx tablet,extended release(part/cryst) days #30 tabs arginine 7 gram-glutam 7 1 packet PO DAILY supplement 09/24/24 Unknown History gram-CaHMB 1.5 swxw-ixhmk-bi-min oral pwd pkt (Papa (with collagen)) cephalexin 500 mg capsule 500 mg PO Q6H 7 days #28 caps 09/26/24 Unknown Rx ciprofloxacin HCl 500 mg tablet 500 mg PO BID #14 tabs 09/29/24 Unknown Rx (Cipro) Allergy/AdvReac Type Severity Reaction Status Date / Time latex Allergy Severe Other Verified 09/23/24 16:23 shellfish derived Allergy Severe PASSED Verified 09/23/24 16:23 OUT, DIARRHEA adhesive Allergy Mild Rash Verified 09/23/24 16:23 levofloxacin AdvReac Intermediate WEAK, Verified 09/23/24 16:23 NAUSEA povidone AdvReac Mild Hives Verified 09/23/24 16:23 Surgical History History of bilateral cataract extraction History of colonoscopy S/P insertion of spinal cord stimulator History of partial thyroidectomy History of appendectomy History of left knee surgery History of hysterectomy History of cholecystectomy Social History household members: spouse Smoking Status: Never smoker Electronic Cigarette Use: not used second hand exposure: No alcohol intake: current alcohol intake frequency: a few times a month Alcohol type: wine substance use type: does not use Vital Signs Vital Signs Vital Signs: Weight Weight: 180 lb 13.313 oz Body Mass Index (BMI) 34.1 Physical Exam Const alert, oriented x3, no apparent distress, no limitations, healthy appearing and well nourished General Appearance: cooperative, comfortable, well kempt and well developed Orientation / Consciousness: awake, oriented to person, oriented to place and oriented to time Exam Limitations: no limitations HEENT normocephalic, head/scalp atraumatic and hearing grossly normal bilaterally Head and Scalp: normal to inspection, normocephalic and atraumatic Face and Sinus: normal facial exam Nose: external nose normal External Ear: external ears normal Eyes EOMs intact bilaterally General Eye: normal appearance of both eyes Neck full ROM Resp normal respiratory effort, normal air movement, no retractions and no use of accessory muscles Effort and Inspection: able to speak in complete sentences Extremity no calf tenderness General Extremity: Negative for clubbing or cyanosis Skin Wound Narrative: A dehiscent longitudinal surgical incision is noted overlying the left knee. The dehiscence extends through all layers and into the subcutaneous tissues. There is no odor or drainage. There is no sign of infection or cellulitis. Dimensions are documented elsewhere. The size and depth of the wound continue to diminish. The base of the wound demonstrates healthy, pink granulation tissue. There is minimal bioburden. The margins of the wound appear well beveled, with evidence of peripheral epithelialization. Centrally, the area of exposed fascia has been eliminated by the overgrowth of healthy, pink granulation tissue. The inferior portion of the wound had demonstrated complete epithelialization, though a small, superficial, satellite ulceration has reappeared. It is quite small in dimension, which are documented elsewhere. There continues to be significant improvement. Hair: normal Neuro oriented x3, CN's II-XII intact bilaterally, moves all extremities, no focal motor deficits and no sensory deficits noted Sensorium / Orientation: awake, alert, oriented to person, oriented to place and oriented to time Cranial Nerves: CN normal except as noted Speech: speech normal Psych Appearance: grossly normal and appropriate Attitude: calm Activity / Motor Behavior: appropriate eye contact Speech: normal speech Mood & Affect: euthymic mood Thought Process: normal thought process Thought Content: normal thought content Attention / Concentration: attention grossly intact Debridement Note Debridement Note Wound debrided: Dehiscent left knee surgical incision Laterality: Left Type of Debridement: Excisional debridement Anesthesia Used: 5% Lidocaine Gel and Cetacaine Depth: Down to and including healthy tissue and in the subcutaneous layer Percentage of wound debrided: 100 Instrument Used: 5mm curette Tissue Removed: Bioburden Severity: Fat Layer Exposed Amount of bleeding with debridement: Mild Bleeding Controlled with: Compression and gauze Patient tolerated procedure: Patient tolerated procedure well Debridement Free Text: The excisional debridement was well-tolerated by the patient. Approval has been obtained for the use of an allograft. A 2 cm x 2 cm EpiFix allograft was selected. The allograft was removed from its sterile packaging. It was cut and fashioned to the appropriate size and shape for complete coverage of the dehiscent left knee wound and the small satellite wound which has developed in the inferior portion. The EpiFix was applied topically in the appropriate orientation. 100% of the allograft was utilized. Adaptic Touch was placed over the entire site, and was secured using Steri-Strips. A dry sterile gauze dressing was then placed. This represents the 6th such allograft application at this site. The procedure was well-tolerated. Post-Debridement Measurements and Additional Note: Post-Debridement Measurements/Treatment WC - Nurse 1 - General Ulcer Assessment Start: 10/28/24 13:51 Freq: Status: Active Protocol: KENNY Activity Type Activity Date Activity User E-sign Co-sign Detail Recorded Client Recorded Date Recorded By Document 10/28/24 13:51 ML [id number] 10/28/24 13:53 ML Document 11/04/24 13:44 KW [id number] 11/04/24 13:53 KW Document 11/11/24 14:04 RB [id number] 11/11/24 14:07 RB 10/28/24 11/04/24 11/11/24 13:51 13:44 14:04 - Today's Visit Information Type of service Follow-up Visit Follow-up Visit Follow-up Visit (Physician/SENIOR ADVOCATE (Physician/SENIOR ADVOCATE (Physician/SENIOR ADVOCATE ) ) ) Arrival Mode Ambulatory,Cane Ambulatory,Cane Ambulatory Transfer Assistance None None Accompanied by Patient Identification Verified (Name & Yes Yes Yes ) Patient Requires Transmission-Based No No Precautions Height and Weight Body Mass Index (BMI) 34.1 34.1 34.1 BMI Classification Obese Obese Obese Vital Signs Temperature (97.8 F-99.1 F) 96.5 F L 98.2 F 97.6 F L Temperature Source Temporal Temporal Temporal Pulse Rate (60-100) 87 69 71 Pulse Location Monitor Monitor Monitor Respiratory Rate (12-18) 14 18 18 Respiratory rate source Observation Observation Observation Oxygen Delivery Method Room Air Blood Pressure (90/60-120/80) 131/59 H 111/58 L 143/63 H Blood Pressure Mean 83 75 89 Source Monitor Monitor Monitor Position Sitting Semi-Fowlers Semi-Fowlers Blood Pressure Location Right Arm Left Arm Left Arm History Since Last Visit- (Skip if this is Patient's initial visit) Have you changed medications since your No No No last visit? Any new allergies or adverse reactions No No No Had a fall/change in ADL's that may No No No increase risk of falls Signs or symptoms of abuse and/or No No No neglect since last visit Have you been in the hospital since your No No No last visit? Has dressing in place as prescribed Yes Yes Yes Has compression in place as prescribed Yes Yes Yes Has offloadiing in place as prescribed N/A N/A N/A Experienced any changes in pain level or No No No management Left Footwear Regular Shoe Right Footwear Regular Shoe Pain Scale: 0-10 Numeric Is Patient Pain Free? Yes Yes Yes - Nurse 1 - General Ulcer Measurement Start: 10/28/24 13:51 Freq: Status: Active Protocol: Activity Type Activity Date Activity User E-sign Co-sign Detail Recorded Client Recorded Date Recorded By Document 10/28/24 13:51 ML [id number] 10/28/24 13:53 ML Document 11/04/24 13:44 KW [id number] 11/04/24 13:53 KW Document 11/11/24 14:04 RB [id number] 11/11/24 14:07 RB 10/28/24 11/04/24 11/11/24 13:51 13:44 14:04 Wound Center Nurse 1 #1,.L knee -Combined with other wound No -Current Size (cm) - Length 3.5 2.5 3 -Current Size (cm) - Width 1.5 1.5 1.4 -Current Size (cm) - Depth 0.3 0.3 0.1 -Total Square Cm 5.25 3.75 4.2 -Date of Last Picture (Recall this 11/04/24 field) -Photo Taken Yes -Epithelialization Medium 34-66% -Tunneling No -Undermining/Tunneling No -Circular Undermining No -Exudate Amt Medium Large Large -Exudate Type Serosanguineous Serosanguineous Serosanguineous -Wound Margin Distinct, Thickened & Distinct, Outline Rolled Under Outline Attached Attached -Granulation Amt Medium (34-66%) Large (67-100%) Medium (34-66%) -Granulation Quality [place],Red [place] -Slough/Fibrin Yes Yes -Necrosis Amt Medium (34-66%) Medium (34-66%) Medium (34-66%) -Necrotic Tissue Type Adherent Slough Adherent Slough Adherent Slough -Structure Exposed N/A -Texture (Anali-wound Skin Appearance) Assessed Assessed, Scarring Scarring -Moisture (Anali-wound Skin Appearance) Assessed Assessed, Assessed Maceration -Color (Anali-wound Skin Appearance) Assessed Assessed Assessed -Temperature (Anali-wound Skin No Abnormality No Abnormality No Abnormality Appearance) (Pt Warm) (Pt Warm) (Pt Warm) -Tenderness on Palpation (Anali-wound No No No Skin Appearance) -Ulcer Cleansing Soap and Water Soap and Water Wound Cleanser -Foul Odor after Cleansing No No No -Anesthetic Used 5% Lidocaine 5% Lidocaine 4% Lidocaine Gel Gel Solution WC - Nurse 2 - General Ulcer CM Notes Start: 10/28/24 13:51 Freq: Status: Active Protocol: Activity Type Activity Date Activity User E-sign Co-sign Detail Recorded Client Recorded Date Recorded By Document 10/28/24 14:23 DS [id number] 10/28/24 14:24 DS Document 11/04/24 14:06 DS [id number] 11/04/24 14:13 DS Document 11/11/24 15:12 DS [id number] 11/11/24 15:15 DS Edit Result 11/11/24 15:12 DS (1) [id number] 11/13/24 11:18 DS (1) #2 Left Knee Inf - Debridement - Subq, 1st 20sq cm No => Yes 10/28/24 11/04/24 11/11/24 14:23 14:06 15:12 Wound Center Nurse 2 #2 Left Knee Inf -Time 15:10 -Correct Patient Yes -Correct Side, Site, Position Yes -Correct Procedure Yes -Procedure Performed Yes -Type of Procedure Debridement -Clinical Debridement Subcutaneous -Tissue Removed Subcutaneous -Post Debridement (cm) - Length 0.6 -Post Debridement (cm) - Width 0.5 -Post Debridement (cm) - Depth 0.1 -Total Square (Post) (cm) 0.30 -Area of Debridement (cm) - Length 0.6 -Area of Debridement (cm) - Width 0.5 -Total Square (Area) (cm) 0.30 -Tunneling No -Undermining/Tunneling No -Circular Undermining No -Wound/Ulcer Outcome Not Healed -Ulcer Cleansing Rinsed/ Irrigated with Saline -Foul Odor after Cleansing No -Bioengineered Tissue No -Debridement - Subq, 1st 20sq cm Yes #1,.L knee -Time 14:18 14:06 15:05 -Correct Patient Yes Yes Yes -Correct Side, Site, Position Yes Yes Yes -Correct Procedure Yes Yes Yes -Procedure Performed Yes Yes -Type of Procedure Debridement Debridement Debridement -Clinical Debridement Subcutaneous Subcutaneous Subcutaneous -Tissue Removed Subcutaneous Subcutaneous Subcutaneous -Post Debridement (cm) - Length 3.1 2.0 3.0 -Post Debridement (cm) - Width 1.8 1.7 1.6 -Post Debridement (cm) - Depth 0.1 0.1 0.1 -Total Square (Post) (cm) 5.58 3.40 4.80 -Area of Debridement (cm) - Length 3.1 2.0 3.0 -Area of Debridement (cm) - Width 1.8 1.7 1.6 -Total Square (Area) (cm) 5.58 3.40 4.80 -Tunneling No No No -Undermining/Tunneling No No No -Circular Undermining No No No -Wound/Ulcer Outcome Not Healed Not Healed Not Healed -Ulcer Cleansing Rinsed/ Rinsed/ Irrigated with Irrigated with Saline Saline -Foul Odor after Cleansing No No -Bioengineered Tissue Yes Yes Yes -Type of Bioengineered Tissue Epifix Epifix Epifix -Expiration Date 06/24/29 06/24/29 06/24/29 -Product Lot Number [id number] -Percent Used 100 100 100 -Lot number of Saline Used [id number] -Bleeding Controlled with Pressure Pressure Pressure -Treatment Response Procedure Procedure Procedure Tolerated Well Tolerated Well Tolerated Well -Debridement - Subq, 1st 20sq cm No No No -Apply Skin Sub - 1st 25 sq cm - Legs 1 1 1 -Epifix (per sq cm) 4 4 4 Pain Scale: 0-10 Numeric Is Patient Pain Free? Yes Yes Yes - Nurse 3 - General Ulcer D/C NN Start: 10/28/24 13:51 Freq: Status: Active Protocol: Activity Type Activity Date Activity User E-sign Co-sign Detail Recorded Client Recorded Date Recorded By Document 11/04/24 14:29 KW [id number] 11/04/24 14:29 Document 11/11/24 15:22 RB [id number] 11/11/24 15:23 RB 11/04/24 11/11/24 14:29 15:22 Wound Care Center Nurse 3 #2 Left Knee Inf -Other Dressing ABD #1,.L knee -Other Dressing ABD -Primary Dressing Covered/Secured with Dry Gauze & Dry Gauze & Roll Gauze, Roll Gauze, Secured with Secured with Tape Tape Left -Compression Wrap Randy Wrap -Other randy Treatment Response Procedure Tolerated Well Pain Scale: 0-10 Numeric Is Patient Pain Free? Yes Yes - Visit Discharge Discharge Condition Stable Stable Ambulatory Status Ambulatory,Cane Ambulatory Transportation Private Auto Private Auto Accompanied by Medication Reconcilliation completed & No No provided to patient/care provider Clinical Summary of Care Provided Yes Yes Charges/Coding Procedures Integumentary [id number]-152xx: 80602 Skin sub graft trnk/arm/leg Assessment/Plan Assessment/Plan (1) Non-pressure chronic ulcer of left thigh with fat layer exposed: CODE(S): L97.122 - Non-pressure chronic ulcer of left thigh with fat layer exposed (2) Dehiscence of incision: CODE(S): T81.31XA - Disruption of external operation (surgical) wound, not elsewhere classified, initial encounter QUALIFIERS: Encounter type: subsequent encounter Qualified Code(s): T81.31XD - Disruption of external operation (surgical) wound, not elsewhere classified, subsequent encounter (3) Gangrene associated with type 2 diabetes mellitus: CODE(S): E11.52 - Type 2 diabetes mellitus with diabetic peripheral angiopathy with gangrene (4) Status post revision of total replacement of left knee: CODE(S): Z96.652 - Presence of left artificial knee joint (5) Failed total left knee replacement: CODE(S): T84.093A - Other mechanical complication of internal left knee prosthesis, initial encounter QUALIFIERS: Encounter type: subsequent encounter Qualified Code(s): T84.093D - Other mechanical complication of internal left knee prosthesis, subsequent encounter (6) History of left knee surgery: CODE(S): Z98.890 - Other specified postprocedural states (7) Diabetes: CODE(S): E11.9 - Type 2 diabetes mellitus without complications QUALIFIERS: Diabetes mellitus type: type 2 (8) Diabetic polyneuropathy: CODE(S): E11.42 - Type 2 diabetes mellitus with diabetic polyneuropathy (9) GERD (gastroesophageal reflux disease): CODE(S): K21.9 - Gastro-esophageal reflux disease without esophagitis (10) Hyperlipemia: CODE(S): E78.5 - Hyperlipidemia, unspecified (11) Iron deficiency anemia: CODE(S): D50.9 - Iron deficiency anemia, unspecified (12) Essential (primary) hypertension: CODE(S): I10 - Essential (primary) hypertension (13) Debility: CODE(S): R53.81 - Other malaise (14) Status post total right knee replacement: CODE(S): Z96.651 - Presence of right artificial knee joint (15) Osteoarthritis: (16) History of DVT (deep vein thrombosis): CODE(S): Z86.718 - Personal history of other venous thrombosis and embolism (17) Dyslipidemia: CODE(S): E78.5 - Hyperlipidemia, unspecified (18) Hypothyroidism: CODE(S): E03.9 - Hypothyroidism, unspecified (19) Ocular myasthenia gravis: CODE(S): G70.00 - Myasthenia gravis without (acute) exacerbation (20) History of partial thyroidectomy: CODE(S): E89.0 - Postprocedural hypothyroidism (21) History of appendectomy: CODE(S): Z90.49 - Acquired absence of other specified parts of digestive tract (22) History of hysterectomy: CODE(S): Z90.710 - Acquired absence of both cervix and uterus (23) History of cholecystectomy: CODE(S): Z90.49 - Acquired absence of other specified parts of digestive tract (24) Non-smoker: CODE(S): Z78.9 - Other specified health status (25) History of hiatal hernia: CODE(S): Z87.19 - Personal history of other diseases of the digestive system (26) History of revision of total replacement of left knee joint: CODE(S): Z96.652 - Presence of left artificial knee joint (27) History of bilateral cataract extraction: CODE(S): Z98.41 - Cataract extraction status, right eye; Z98.42 - Cataract extraction status, left eye PLAN: Plan This is a 73-year-old female who underwent the fourth revision of a left total knee replacement on June 19, 2024. She developed gangrene, necrosis, and dehiscence at the surgical site. As a result, the patient presented for definitive evaluation and management with respect to her surgical wound. The large amount of necrotic and nonviable tissue has been eliminated from the site of the patient's surgical wound since her initial presentation. Negative pressure wound therapy was implemented by means of the Wound VAC until recently. There are increasing areas of healthy, pink granulation tissue, which now covers the entirety of the wound. The wound appears to be decreasing in size and depth. Preauthorization has been received for the use of cellular tissue products. Therefore, an EpiFix allograft was applied topically to the patient's dehiscent wound today, representing the 6th such application of an allograft at this site. The allograft site is to be left intact and undisturbed until the patient's return visit in 1 week. The patient has been encouraged to optimize her nutritional intake, as well as her diabetes management. She has been encouraged to continue taking protein nutritional drinks on a daily basis. She is to coordinate with her primary care physician with regard to diabetes management. She has been encouraged to elevate her left lower extremity to prevent and minimize swelling. Elevation is to be to heart level, during both daytime and nighttime hours. Avoidance of prolonged idle sitting has been encouraged. Activity as tolerated has been encouraged. Tubigrip's have been dispensed for compression purposes. The patient is to follow-up in 1 week for reevaluation. Total time: 24 minutes
[2024-11-18 14:32] VITALS: BP 117/85; PULSE 70; RESP 16; TEMP 36.1; BMI 34.1
--- NOTE | 2024-11-19 08:24 | WC ---
PHOTO 11/18/24 LEFT KNEE
--- NOTE | 2024-11-19 08:25 | WC ---
PHOTO 11/18/24 LEFT INF. KNEE
--- NOTE | 2024-11-20 14:37 | HP.PCM_ITS ---
History of Present Illness Date of Service: 11/18/24 Chief Complaint: Dehiscent, necrotic surgical wound of the left knee History of Wound: This is a 74-year-old female with a history of left total knee replacement many years ago, which has required several revisions. The most recent revision was performed on June 19, 2024, at the [facility]. This was the fourth left knee revision. Prior revisions required flap reconstruction, and the Plastic Surgery service was involved in the patient's most recent surgery. Postoperatively, the patient was placed on oral doxycycline, which is expected to continue for 3 months. The patient's left lower extremity was locked in extension for 2 weeks. She is now weightbearing on the involved limb. She was admitted to the Transitional Care Unit at [facility] for several weeks postoperatively on June 27, 2024. She has returned to home, with visual merchandising assistant care from her . The patient developed a surgical wound dehiscence and marjorie necrosis and gangrene at the site of her incision. A wound VAC was used initially at the surgical site, but the patient had been using Xeroform more recently. The patient suffers from multiple pre-existing medical conditions, listed herein. She does not smoke. She is using Papa as a nutritional supplement. Her BMI is 34.1. 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 Dehiscence of incision History of revision of total replacement of left knee joint Wears glasses Alcohol use History of steroid therapy Bladder disease Neuropathy Back pain Dietary restriction History of pain when walking Pain Myasthenia gravis Ambulates with cane Rheumatoid arthritis Low iron History of DVT (deep vein thrombosis) Hyperlipemia Difficulty swallowing History of hiatal hernia Gastric reflux Non-smoker Shortness of breath on exertion Chronic cough PONV (postoperative nausea and vomiting) Leg cramps History of edema History of stress test Hypertension Thyroid disease Cataracts, bilateral History of UTI Arthritis Home Medications ?Medication ?Instructions ?Recorded ?Last Taken ?Type folic acid 1 mg tablet 1 mg PO DAILY supplement 06/06/22 History atorvastatin 10 mg tablet 5 mg PO .QOD Cholesterol 06/26/24 18:45 History cholecalciferol (vitamin D3) 50 50 mcg PO DAILY supple ment 09/06/21 06/27/24 History mcg (2,000 unit) capsule ascorbic acid (vitamin C) 500 mg 500 mg PO DAILY suppl ement 02/06/22 06/27/24 History tablet (Vitamin C) dapagliflozin propanediol 5 mg 10 mg PO DAILY blood michaels gar 05/25/22 06/06/22 History tablet (Farxiga) levothyroxine 125 mcg tablet 100 mcg PO DAILY thyroid 05/25/22 06/27/24 History pregabalin 75 mg capsule (Lyrica) 100 mg PO TID pain 0 05/25/22 06/06/22 History hydrochlorothiazide 12.5 mg tablet 12.5 mg PO DAILY Bl ood pressure 06/07/22 Unknown History vibegron 75 mg tablet (Gemtesa) 75 mg PO DAILY Overact cassidy bladder 12/04/22 Unknown History metformin 500 mg tablet,extended 1,000 mg PO BID Diabe freda 06/27/24 06/27/24 05:30 History release 24 hr polysaccharide iron complex 150 mg 65 mg PO QODAY Supp lement 06/27/24 Unknown History iron capsule (Ferrex) losartan 100 mg tablet 100 mg PO DAILY bp 30 days # 30 tabs 07/15/24 Unknown Rx oxycodone 5 mg tablet 5 - 10 mg (1 - 2 x 5 mg) PO Q4H 07/15/24 Unknown Rx PRN PRN Pain Score 4-10 7 days #84 tabs potassium chloride 20 mEq 20 meq PO DAILYCM supplement 30 07/15/24 Unknown Rx tablet,extended release(part/cryst) days #30 tabs arginine 7 gram-glutam 7 1 packet PO DAILY supplement 09/24/24 Unknown History gram-CaHMB 1.5 [id number] oral pwd pkt (Papa (with collagen)) cephalexin 500 mg capsule 500 mg PO Q6H 7 days #28 cap s 09/26/24 Unknown Rx ciprofloxacin HCl 500 mg tablet 500 mg PO BID #14 tabs 09/29/24 Unknown Rx (Cipro) Allergy/AdvReac Type Severity Reaction Status Date / Time latex Allergy Severe Other Verified 09/23/24 16:23 shellfish derived Allergy Severe PASSED Verified 09/23/24 16:23 OUT, DIARRHEA adhesive Allergy Mild Rash Verified 09/23/24 16:23 levofloxacin AdvReac Intermediate WEAK, Verified 09/23/24 16:23 NAUSEA povidone AdvReac Mild Hives Verified 09/23/24 16:23 Surgical History History of bilateral cataract extraction History of colonoscopy S/P insertion of spinal cord stimulator History of partial thyroidectomy History of appendectomy History of left knee surgery History of hysterectomy History of cholecystectomy Social History household members: spouse Smoking Status: Never smoker Electronic Cigarette Use: not used second hand exposure: No alcohol intake: current alcohol intake frequency: a few times a month Alcohol type: wine substance use type: does not use Vital Signs Vital Signs Vital Signs: Weight Weight: 180 lb 13.313 oz Body Mass Index (BMI) 34.1 Physical Exam Const alert, oriented x3, no apparent distress, no limitations, healthy appearing and well nourished General Appearance: cooperative, comfortable, well kempt and well developed Orientation / Consciousness: awake, oriented to person, oriented to place and oriented to time Exam Limitations: no limitations HEENT normocephalic, head/scalp atraumatic and hearing grossly normal bilaterally Head and Scalp: normal to inspection, normocephalic and atraumatic Face and Sinus: normal facial exam Nose: external nose normal External Ear: external ears normal Eyes EOMs intact bilaterally General Eye: normal appearance of both eyes Neck full ROM Resp normal respiratory effort, normal air movement, no retractions and no use of accessory muscles Effort and Inspection: able to speak in complete sentences Extremity no calf tenderness General Extremity: Negative for clubbing or cyanosis Skin Wound Narrative: A dehiscent longitudinal surgical incision is noted overlying the left knee. The dehiscence extends through all layers and into the subcutaneous tissues. There is no odor or drainage. There is no sign of infection or cellulitis. Dimensions are documented elsewhere. The size and depth of the wound continue t o diminish. The base of the wound demonstrates healthy, pink granulation tissue. There is minimal bioburden. The margins of the wound appear well beveled, with evidence of peripheral epithelialization. Centrally, the area of exposed fascia has been eliminated by the overgrowth of healthy, pink granulation tissue. The inferior portion of the wound had demonstrated complete epithelialization, though a small, superficial, satellite ulceration has reappeared. Of particular note, there is now an area of erythema to the left of the dehiscent wound, which appears to represent maceration and superficial dermatitis. It does not appear to be cellulitic in nature. Hair: normal Neuro oriented x3, CN's II-XII intact bilaterally, moves all extremities, no focal motor deficits and no sensory deficits noted Sensorium / Orientation: awake, alert, oriented to person, oriented to place and oriented to time Cranial Nerves: CN normal except as noted Speech: speech normal Psych Appearance: grossly normal and appropriate Attitude: calm Activity / Motor Behavior: appropriate eye contact Speech: normal speech Mood & Affect: euthymic mood Thought Process: normal thought process Thought Content: normal thought content Attention / Concentration: attention grossly intact Debridement Note Debridement Note Wound debrided: Dehiscent left knee surgical incision Laterality: Left Type of Debridement: Excisional debridement Anesthesia Used: 5% Lidocaine Gel and Cetacaine Depth: Down to and including healthy tissue and in the subcutaneous layer Percentage of wound debrided: 100 Instrument Used: 5mm curette Tissue Removed: Bioburden Severity: Fat Layer Exposed Amount of bleeding with debridement: Mild Bleeding Controlled with: Compression and gauze Patient tolerated procedure: Patient tolerated procedure well Post-Debridement Measurements and Additional Note: Post-Debridement Measurements/Treatment - Nurse 1 - General Ulcer Assessment Start: 10/28/24 13:51 Freq: Status: Active Protocol: KENNY Activity Type Activity Date Activity User E-sign Co-sign Detail Recorded Client Recorded Date Recorded By Document 10/28/24 13:51 ML [id number] 10/28/24 13:53 ML Document 11/04/24 13:44 KW [id number] 11/04/24 13:53 KW Document 11/11/24 14:04 RB [id number] 11/11/24 14:07 RB Document 11/18/24 14:32 JF [id number] 11/18/24 14:45 JF 10/28/24 11/04/24 11/11/24 13:51 13:44 14:04 - Today's Visit Information Type of service Follow-up Visit Follow-up Visit Follow-up Visit (Physician/SCHOOL PHOTOGRAPHS DETAILER (Physician/SCHOOL PHOTOGRAPHS DETAILER (Physician/SCHOOL PHOTOGRAPHS DETAILER ) ) ) Arrival Mode Ambulatory,Cane Ambulatory,Cane Ambulatory Transfer Assistance None None Accompanied by Patient Identification Verified (Name & Yes Yes Yes ) Patient Requires Transmission-Based No No Precautions Height and Weight Body Mass Index (BMI) 34.1 34.1 34.1 BMI Classification Obese Obese Obese Vital Signs Temperature (97.8 F-99.1 F) 96.5 F L 98.2 F 97.6 F L Temperature Source Temporal Temporal Temporal Pulse Rate (60-100) 87 69 71 Pulse Location Monitor Monitor Monitor Respiratory Rate (12-18) 14 18 18 Respiratory rate source Observation Observation Observation Oxygen Delivery Method Room Air Blood Pressure (90/60-120/80) 131/59 H 111/58 L 143/63 H Blood Pressure Mean 83 75 89 Source Monitor Monitor Monitor Position Sitting Semi-Fowlers Semi-Fowlers Blood Pressure Location Right Arm Left Arm Left Arm History Since Last Visit- (Skip if this is Patient's initial visit) Have you changed medications since your No No No last visit? Any new allergies or adverse reactions No No No Had a fall/change in ADL's that may No No No increase risk of falls Signs or symptoms of abuse and/or No No No neglect since last visit Have you been in the hospital since your No No No last visit? Has dressing in place as prescribed Yes Yes Yes Has compression in place as prescribed Yes Yes Yes Has offloadiing in place as prescribed N/A N/A N/A Experienced any changes in pain level or No No No management Left Footwear Regular Shoe Right Footwear Regular Shoe Pain Scale: 0-10 Numeric Is Patient Pain Free? Yes Yes Yes 11/18/24 14:32 WC - Today's Visit Information Type of service Follow-up Visit (Physician/SCHOOL PHOTOGRAPHS DETAILER ) Arrival Mode Ambulatory,Cane Transfer Assistance Accompanied by Patient Identification Verified (Name & Yes ) Patient Requires Transmission-Based No Precautions Height and Weight Body Mass Index (BMI) 34.1 BMI Classification Obese Vital Signs Temperature (97.8 F-99.1 F) 96.9 F L Temperature Source Temporal Pulse Rate (60-100) 70 Pulse Location Monitor Respiratory Rate (12-18) 16 Respiratory rate source Observation Oxygen Delivery Method Blood Pressure (90/60-120/80) 117/85 H Blood Pressure Mean 95 Source Monitor Position Sitting Blood Pressure Location Right Arm History Since Last Visit- (Skip if this is Patient's initial visit) Have you changed medications since your No last visit? Any new allergies or adverse reactions No Had a fall/change in ADL's that may No increase risk of falls Signs or symptoms of abuse and/or No neglect since last visit Have you been in the hospital since your No last visit? Has dressing in place as prescribed Yes Has compression in place as prescribed Yes Has offloadiing in place as prescribed N/A Experienced any changes in pain level or No management Left Footwear Regular Shoe Right Footwear Regular Shoe Pain Scale: 0-10 Numeric Is Patient Pain Free? Yes WC - Nurse 1 - General Ulcer Measurement Start: 10/28/24 13:51 Freq: Status: Active Protocol: Activity Type Activity Date Activity User E-sign Co-sign Detail Recorded Client Recorded Date Recorded By Document 10/28/24 13:51 ML [id number] 10/28/24 13:53 ML Document 11/04/24 13:44 KW [id number] 11/04/24 13:53 KW Document 11/11/24 14:04 RB [id number] 11/11/24 14:07 RB Document 11/18/24 14:32 JF [id number] 11/18/24 14:45 JF 10/28/24 11/04/24 11/11/24 13:51 13:44 14:04 Wound Center Nurse 1 #2 Left Knee Inf -Combined with other wound -Current Size (cm) - Length -Current Size (cm) - Width -Current Size (cm) - Depth -Total Square Cm -Photo Taken -Epithelialization -Tunneling -Undermining/Tunneling -Circular Undermining -Exudate Amt -Exudate Type -Wound Margin -Granulation Amt -Granulation Quality -Slough/Fibrin -Necrosis Amt -Necrotic Tissue Type -Structure Exposed -Texture (Anali-wound Skin Appearance) -Moisture (Anali-wound Skin Appearance) -Color (Anali-wound Skin Appearance) -Temperature (Anali-wound Skin Appearance) -Tenderness on Palpation (Anali-wound Skin Appearance) -Ulcer Cleansing -Foul Odor after Cleansing -Anesthetic Used #1,.L knee -Combined with other wound No -Current Size (cm) - Length 3.5 2.5 3 -Current Size (cm) - Width 1.5 1.5 1.4 -Current Size (cm) - Depth 0.3 0.3 0.1 -Total Square Cm 5.25 3.75 4.2 -Date of Last Picture (Recall this 11/04/24 field) -Photo Taken Yes -Epithelialization Medium 34-66% -Tunneling No -Undermining/Tunneling No -Circular Undermining No -Exudate Amt Medium Large Large -Exudate Type Serosanguineous Serosanguineous Serosanguineous -Wound Margin Distinct, Thickened & Distinct, Outline Rolled Under Outline Attached Attached -Granulation Amt Medium (34-66%) Large (67-100%) Medium (34-66%) -Granulation Quality [place],Red [place] -Slough/Fibrin Yes Yes -Necrosis Amt Medium (34-66%) Medium (34-66%) Medium (34-66%) -Necrotic Tissue Type Adherent Slough Adherent Slough Adherent Slough -Structure Exposed N/A -Texture (Anali-wound Skin Appearance) Assessed Assessed, Scarring Scarring -Moisture (Anali-wound Skin Appearance) Assessed Assessed, Assessed Maceration -Color (Anali-wound Skin Appearance) Assessed Assessed Assessed -Temperature (Anali-wound Skin No Abnormality No Abnormality No Abnormality Appearance) (Pt Warm) (Pt Warm) (Pt Warm) -Tenderness on Palpation (Anali-wound No No No Skin Appearance) -Ulcer Cleansing Soap and Water Soap and Water Wound Cleanser -Foul Odor after Cleansing No No No -Anesthetic Used 5% Lidocaine 5% Lidocaine 4% Lidocaine Gel Gel Solution Lower Limb Edema Present Left Calf (cm) Left Ankle (cm) 11/18/24 14:32 Wound Center Nurse 1 #2 Left Knee Inf -Combined with other wound No -Current Size (cm) - Length 2.2 -Current Size (cm) - Width 0.5 -Current Size (cm) - Depth 0.1 -Total Square Cm 1.10 -Photo Taken Yes -Epithelialization Large 67-100% -Tunneling No -Undermining/Tunneling No -Circular Undermining No -Exudate Amt Small -Exudate Type Serosanguineous -Wound Margin Flat & Intact -Granulation Amt Large (67-100%) -Granulation Quality Red -Slough/Fibrin Yes -Necrosis Amt Small (1-33%) -Necrotic Tissue Type Adherent Slough -Structure Exposed N/A -Texture (Anali-wound Skin Appearance) Assessed, Localized Edema -Moisture (Anali-wound Skin Appearance) Assessed,Dry/ Scaly -Color (Anali-wound Skin Appearance) Assessed -Temperature (Anali-wound Skin No Abnormality Appearance) (Pt Warm) -Tenderness on Palpation (Anali-wound No Skin Appearance) -Ulcer Cleansing Rinsed/ Irrigated with Saline -Foul Odor after Cleansing No -Anesthetic Used 5% Lidocaine Gel #1,.L knee -Combined with other wound No -Current Size (cm) - Length 2.2 -Current Size (cm) - Width 0.5 -Current Size (cm) - Depth 0.1 -Total Square Cm 1.10 -Date of Last Picture (Recall this field) -Photo Taken Yes -Epithelialization Small 1-33% -Tunneling No -Undermining/Tunneling No -Circular Undermining No -Exudate Amt Small -Exudate Type Serosanguineous -Wound Margin Flat & Intact -Granulation Amt Medium (34-66%) -Granulation Quality Red -Slough/Fibrin Yes -Necrosis Amt Small (1-33%) -Necrotic Tissue Type Adherent Slough -Structure Exposed N/A -Texture (Anali-wound Skin Appearance) Assessed -Moisture (Anali-wound Skin Appearance) Assessed,Dry/ Scaly -Color (Anali-wound Skin Appearance) Assessed -Temperature (Anali-wound Skin No Abnormality Appearance) (Pt Warm) -Tenderness on Palpation (Anali-wound No Skin Appearance) -Ulcer Cleansing Soap and Water -Foul Odor after Cleansing No -Anesthetic Used 4% Lidocaine Solution Lower Limb Edema Present Yes Left Calf (cm) 34.6 Left Ankle (cm) 24.4 WC - Nurse 2 - General Ulcer CM Notes Start: 10/28/24 13:51 Freq: Status: Active Protocol: Activity Type Activity Date Activity User E-sign Co-sign Detail Recorded Client Recorded Date Recorded By Document 10/28/24 14:23 DS [id number] 10/28/24 14:24 DS Document 11/04/24 14:06 DS [id number] 11/04/24 14:13 DS Document 11/11/24 15:12 DS [id number] 11/11/24 15:15 DS Edit Result 11/11/24 15:12 DS (1) [id number] 11/13/24 11:18 DS Document 11/18/24 15:09 DS [id number] 11/18/24 15:14 DS (1) #2 Left Knee Inf - Debridement - Subq, 1st 20sq cm No => Yes 10/28/24 11/04/2411/11/25 14:23 14:06 15:12 Wound Center Nurse 2 #2 Left Knee Inf -Time 15:10 -Correct Patient Yes -Correct Side, Site, Position Yes -Correct Procedure Yes -Procedure Performed Yes -Type of Procedure Debridement -Clinical Debridement Subcutaneous -Tissue Removed Subcutaneous -Post Debridement (cm) - Length 0.6 -Post Debridement (cm) - Width 0.5 -Post Debridement (cm) - Depth 0.1 -Total Square (Post) (cm) 0.30 -Area of Debridement (cm) - Length 0.6 -Area of Debridement (cm) - Width 0.5 -Total Square (Area) (cm) 0.30 -Tunneling No -Undermining/Tunneling No -Circular Undermining No -Wound/Ulcer Outcome Not Healed -Ulcer Cleansing Rinsed/ Irrigated with Saline -Foul Odor after Cleansing No -Bioengineered Tissue No -Bleeding Controlled with -Treatment Response -Debridement - Subq, 1st 20sq cm Yes #1,.L knee -Time 14:18 14:06 15:05 -Correct Patient Yes Yes Yes -Correct Side, Site, Position Yes Yes Yes -Correct Procedure Yes Yes Yes -Procedure Performed Yes Yes -Type of Procedure Debridement Debridement Debridement -Clinical Debridement Subcutaneous Subcutaneous Subcutaneous -Tissue Removed Subcutaneous Subcutaneous Subcutaneous -Post Debridement (cm) - Length 3.1 2.0 3.0 -Post Debridement (cm) - Width 1.8 1.7 1.6 -Post Debridement (cm) - Depth 0.1 0.1 0.1 -Total Square (Post) (cm) 5.58 3.40 4.80 -Area of Debridement (cm) - Length 3.1 2.0 3.0 -Area of Debridement (cm) - Width 1.8 1.7 1.6 -Total Square (Area) (cm) 5.58 3.40 4.80 -Tunneling No No No -Undermining/Tunneling No No No -Circular Undermining No No No -Wound/Ulcer Outcome Not Healed Not Healed Not Healed -Ulcer Cleansing Rinsed/ Rinsed/ Irrigated with Irrigated with Saline Saline -Foul Odor after Cleansing No No -Bioengineered Tissue Yes Yes Yes -Type of Bioengineered Tissue Epifix Epifix Epifix -Expiration Date 06/24/29 06/24/29 06/24/29 -Product Lot Number [id number] -Percent Used 100 100 100 -Lot number of Saline Used [id number] -Bleeding Controlled with Pressure Pressure Pressure -Treatment Response Procedure Procedure Procedure Tolerated Well Tolerated Well Tolerated Well -Offloading -Debridement - Subq, 1st 20sq cm No No No -Apply Skin Sub - 1st 25 sq cm - Legs 1 1 1 -Epifix (per sq cm) 4 4 4 Pain Scale: 0-10 Numeric Is Patient Pain Free? Yes Yes Yes 11/18/24 15:09 Wound Center Nurse 2 #2 Left Knee Inf -Time 15:09 -Correct Patient Yes -Correct Side, Site, Position Yes -Correct Procedure Yes -Procedure Performed Yes -Type of Procedure Debridement -Clinical Debridement Subcutaneous -Tissue Removed Subcutaneous -Post Debridement (cm) - Length 0.5 -Post Debridement (cm) - Width 0.5 -Post Debridement (cm) - Depth 0.1 -Total Square (Post) (cm) 0.25 -Area of Debridement (cm) - Length 0.5 -Area of Debridement (cm) - Width 0.5 -Total Square (Area) (cm) 0.25 -Tunneling No -Undermining/Tunneling No -Circular Undermining No -Wound/Ulcer Outcome Not Healed -Ulcer Cleansing Rinsed/ Irrigated with Saline -Foul Odor after Cleansing No -Bioengineered Tissue No -Bleeding Controlled with Pressure -Treatment Response Procedure Tolerated Well -Debridement - Subq, 1st 20sq cm No #1,.L knee -Time 15:10 -Correct Patient Yes -Correct Side, Site, Position Yes -Correct Procedure Yes -Procedure Performed Yes -Type of Procedure Debridement -Clinical Debridement Subcutaneous -Tissue Removed Subcutaneous -Post Debridement (cm) - Length 1.1 -Post Debridement (cm) - Width 1.0 -Post Debridement (cm) - Depth 0.1 -Total Square (Post) (cm) 1.10 -Area of Debridement (cm) - Length 1.1 -Area of Debridement (cm) - Width 1.0 -Total Square (Area) (cm) 1.10 -Tunneling No -Undermining/Tunneling No -Circular Undermining No -Wound/Ulcer Outcome Not Healed -Ulcer Cleansing Rinsed/ Irrigated with Saline -Foul Odor after Cleansing No -Bioengineered Tissue No -Type of Bioengineered Tissue -Expiration Date -Product Lot Number -Percent Used -Lot number of Saline Used -Bleeding Controlled with Pressure -Treatment Response Procedure Tolerated Well -Offloading No -Debridement - Subq, 1st 20sq cm Yes -Apply Skin Sub - 1st 25 sq cm - Legs -Epifix (per sq cm) Pain Scale: 0-10 Numeric Is Patient Pain Free? Yes - Nurse 3 - General Ulcer D/C NN Start: 10/28/24 13:51 Freq: Status: Active Protocol: Activity Type Activity Date Activity User E-sign Co-sign Detail Recorded Client Recorded Date Recorded By Document 11/04/24 14:29 KW [id number] 11/04/24 14:29 KW Document 11/11/24 15:22 RB [id number] 11/11/24 15:23 RB Document 11/18/24 15:44 RB [id number] 11/18/24 15:45 RB 11/04/24 11/11/24 11/18/24 14:29 15:22 15:44 Wound Care Center Nurse 3 #2 Left Knee Inf -Other Dressing ABD #1,.L knee -Other Dressing ABD -Primary Dressing Covered/Secured with Dry Gauze & Dry Gauze & Roll Gauze, Roll Gauze, Secured with Secured with Tape Tape Left -Compression Wrap Randy Wrap -Other randy Treatment Response Procedure Tolerated Well Pain Scale: 0-10 Numeric Is Patient Pain Free? Yes Yes Yes - Visit Discharge Discharge Condition Stable Stable Stable Ambulatory Status Ambulatory,Cane Ambulatory Ambulatory,Cane Transportation Private Auto Private Auto Private Auto Accompanied by Medication Reconcilliation completed & No No No provided to patient/care provider Clinical Summary of Care Provided Yes Yes Yes #2 Left Knee Inf -Ulcer Cleansing Rinsed/ Irrigated with Saline -Primary Dressing Applied Promogran -Primary Dressing Covered/Secured with Dry Gauze & Roll Gauze, Secured with Tape -Promogran 1 #1,.L knee -Primary Dressing Applied Promogran -Primary Dressing Covered/Secured with Dry Gauze & Roll Gauze, Secured with Tape -Promogran 1 Left -Other randy Treatment Response Procedure Tolerated Well Charges/Coding Procedures Integumentary [id number]: [id number] [place] subq tissue 20 sq cm/< Assessment/Plan Assessment/Plan (1) Non-pressure chronic ulcer of left thigh with fat layer exposed: CODE(S): L97.122 - Non-pressure chronic ulcer of left thigh with fat layer exposed (2) Dehiscence of incision: CODE(S): T81.31XA - Disruption of external operation (surgical) wound, not elsewhere classified, initial encounter QUALIFIERS: Encounter type: subsequent encounter Qualified Code(s): T81.31XD - Disruption of external operation (surgical) wound, not elsewhere classified, subsequent encounter (3) Gangrene associated with type 2 diabetes mellitus: CODE(S): E11.52 - Type 2 diabetes mellitus with diabetic peripheral angiopathy with gangrene (4) Status post revision of total replacement of left knee: CODE(S): Z96.652 - Presence of left artificial knee joint (5) Failed total left knee replacement: CODE(S): T84.093A - Other mechanical complication of internal left knee prosthesis, initial encounter QUALIFIERS: Encounter type: subsequent encounter Qualified Code(s): T84.093D - Other mechanical complication of internal left knee prosthesis, subsequent encounter (6) History of left knee surgery: CODE(S): Z98.890 - Other specified postprocedural states (7) Diabetes: CODE(S): E11.9 - Type 2 diabetes mellitus without complications QUALIFIERS: Diabetes mellitus type: type 2 (8) Diabetic polyneuropathy: CODE(S): E11.42 - Type 2 diabetes mellitus with diabetic polyneuropathy (9) GERD (gastroesophageal reflux disease): CODE(S): K21.9 - Gastro-esophageal reflux disease without esophagitis (10) Hyperlipemia: CODE(S): E78.5 - Hyperlipidemia, unspecified (11) Iron deficiency anemia: CODE(S): D50.9 - Iron deficiency anemia, unspecified (12) Essential (primary) hypertension: CODE(S): I10 - Essential (primary) hypertension (13) Debility: CODE(S): R53.81 - Other malaise (14) Status post total right knee replacement: CODE(S): Z96.651 - Presence of right artificial knee joint (15) Osteoarthritis: (16) History of DVT (deep vein thrombosis): CODE(S): Z86.718 - Personal history of other venous thrombosis and embolism (17) Dyslipidemia: CODE(S): E78.5 - Hyperlipidemia, unspecified (18) Hypothyroidism: CODE(S): E03.9 - Hypothyroidism, unspecified (19) Ocular myasthenia gravis: CODE(S): G70.00 - Myasthenia gravis without (acute) exacerbation (20) History of partial thyroidectomy: CODE(S): E89.0 - Postprocedural hypothyroidism (21) History of appendectomy: CODE(S): Z90.49 - Acquired absence of other specified parts of digestive tract (22) History of hysterectomy: CODE(S): Z90.710 - Acquired absence of both cervix and uterus (23) History of cholecystectomy: CODE(S): Z90.49 - Acquired absence of other specified parts of digestive tract (24) Non-smoker: CODE(S): Z78.9 - Other specified health status (25) History of hiatal hernia: CODE(S): Z87.19 - Personal history of other diseases of the digestive system (26) History of revision of total replacement of left knee joint: CODE(S): Z96.652 - Presence of left artificial knee joint (27) History of bilateral cataract extraction: CODE(S): Z98.41 - Cataract extraction status, right eye; Z98.42 - Cataract extraction status, left eye PLAN: Plan This is a 74-year-old female who underwent the fourth revision of a left total knee replacement on June 19, 2024. She developed gangrene, necrosis, and dehiscence at the surgical site. As a result, the patient presented for definitive evaluation and management with respect to her surgical wound. The large amount of necrotic and nonviable tissue has been eliminated from the site of the patient's surgical wound since her initial presentation. Negative pressure wound therapy was implemented by means of the Wound VAC until recently. There are increasing areas of healthy, pink granulation tissue, which now covers the entirety of the wound. The wound appears to be decreasing in size and depth. Preauthorization has been received for the use of cellular tissue products. Therefore, EpiFix allograft applications have been used recently, the most recent of which was the sixth such application. Because of the presence of maceration and dermatitic changes adjacent to the wound, noted today, we are to forego the application of an allograft. Promogran is to be applied topically, and the patient is to do so on a daily basis. She has been instructed in the appropriate means of application. Aquaphor is to be used topically on the area of dermatitic changes adjacent to the wound. It is anticipated that we will resume the use of allografts once the areas of dermatitis and maceration have resolved. The patient has been encouraged to optimize her nutritional intake, as well as her diabetes management. She has been encouraged to continue taking protein nutritional drinks on a daily basis. She is to coordinate with her primary care physician with regard to diabetes management. She has been encouraged to elevate her left lower extremity to prevent and minimize swelling. Elevation is to be to heart level, during both daytime and nighttime hours. Avoidance of prolonged idle sitting has been encouraged. Activity as tolerated has been encouraged. Tubigrip's have been dispensed for compression purposes. The patient is to follow-up in 1 week for reevaluation. Total time: 25 minutes
== END 2024-11-21 23:59 | disposition home or self-care (01) ==
LOC: WC 14:15
PROVIDERS: PCP Internal Medicine; Visit Provider Surgery
DX: E11.622 Type 2 diabetes mellitus with other skin ulcer (principal); E11.52 Type 2 diabetes mellitus with diabetic peripheral angiopathy with gangrene; L97.122 Non-pressure chronic ulcer of left thigh with fat layer exposed; G70.00 Myasthenia gravis without (acute) exacerbation; E11.42 Type 2 diabetes mellitus with diabetic polyneuropathy; Z86.718 Personal history of other venous thrombosis and embolism; Z79.84 Long term (current) use of oral hypoglycemic drugs; Z79.891 Long term (current) use of opiate analgesic; R53.81 Other malaise; E89.0 Postprocedural hypothyroidism; E78.5 Hyperlipidemia, unspecified; Z90.710 Acquired absence of both cervix and uterus; I10 Essential (primary) hypertension; Z79.890 Hormone replacement therapy; K21.9 Gastro-esophageal reflux disease without esophagitis; D50.9 Iron deficiency anemia, unspecified; Z96.653 Presence of artificial knee joint, bilateral; M19.90 Unspecified osteoarthritis, unspecified site; Z87.19 Personal history of other diseases of the digestive system; Z98.41 Cataract extraction status, right eye; Z90.49 Acquired absence of other specified parts of digestive tract; T81.31XD Disruption of external operation (surgical) wound, not elsewhere classified, subsequent encounter; T84.093D Other mechanical complication of internal left knee prosthesis, subsequent encounter; Z98.42 Cataract extraction status, left eye
CPT/HCPCS: 11042; 15271; Q4186

== ENCOUNTER 2024-12-16 14:00 | Outpatient (RCR) | payer MEDICARE, SELFPAY ==
[2024-11-22 01:09] VITALS: BP 117/85; PULSE 70; RESP 16; TEMP 36.1; BMI 34.1
[2024-11-25 14:44] VITALS: BP 127/67; PULSE 73; RESP 15; TEMP 36.1; BMI 34.1
--- NOTE | 2024-11-29 13:16 | HP.PCM_ITS ---
History of Present Illness Date of Service: 11/25/24 Chief Complaint: Dehiscent, necrotic surgical wound of the left knee History of Wound: This is a 74-year-old female with a history of left total knee replacement many years ago, which has required several revisions. The most recent revision was performed on June 19, 2024, at the [facility]. This was the fourth left knee revision. Prior revisions required flap reconstruction, and the Plastic Surgery service was involved in the patient's most recent surgery. Postoperatively, the patient was placed on oral doxycycline, which is expected to continue for 3 months. The patient's left lower extremity was locked in extension for 2 weeks. She is now weightbearing on the involved limb. She was admitted to the Transitional Care Unit at [facility] for several weeks postoperatively on June 27, 2024. 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 The patient developed a surgical wound dehiscence and marjorie necrosis and gangrene at the site of her incision. A wound VAC was used initially at the surgical site, but the patient had been using Xeroform more recently. The patient suffers from multiple pre-existing medical conditions, listed herein. She does not smoke. She is using Papa as a nutritional supplement. Her BMI is 34.1. 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 Dehiscence of incision History of revision of total replacement of left knee joint Wears glasses Alcohol use History of steroid therapy Bladder disease Neuropathy Back pain Dietary restriction History of pain when walking Pain Myasthenia gravis Ambulates with cane Rheumatoid arthritis Low iron History of DVT (deep vein thrombosis) Hyperlipemia Difficulty swallowing History of hiatal hernia Gastric reflux Non-smoker Shortness of breath on exertion Chronic cough PONV (postoperative nausea and vomiting) Leg cramps History of edema History of stress test Hypertension Thyroid disease Cataracts, bilateral History of UTI Arthritis Home Medications ?Medication ?Instructions ?Recorded ?Last Taken ?Type folic acid 1 mg tablet 1 mg PO DAILY supplement 06/06/22 History atorvastatin 10 mg tablet 5 mg PO .QOD Cholesterol 06/26/24 18:45 History cholecalciferol (vitamin D3) 50 50 mcg PO DAILY supple ment 09/06/21 06/27/24 History mcg (2,000 unit) capsule ascorbic acid (vitamin C) 500 mg 500 mg PO DAILY suppl ement 02/06/22 06/27/24 History tablet (Vitamin C) dapagliflozin propanediol 5 mg 10 mg PO DAILY blood michaels gar 05/25/22 06/06/22 History tablet (Farxiga) levothyroxine 125 mcg tablet 100 mcg PO DAILY thyroid 05/25/22 06/27/24 History pregabalin 75 mg capsule (Lyrica) 100 mg PO TID pain 0 05/25/22 06/06/22 History hydrochlorothiazide 12.5 mg tablet 12.5 mg PO DAILY Bl ood pressure 06/07/22 Unknown History vibegron 75 mg tablet (Gemtesa) 75 mg PO DAILY Overact cassidy bladder 12/04/22 Unknown History metformin 500 mg tablet,extended 1,000 mg PO BID Diabe freda 06/27/24 06/27/24 05:30 History release 24 hr polysaccharide iron complex 150 mg 65 mg PO QODAY Supp lement 06/27/24 Unknown History iron capsule (Ferrex) losartan 100 mg tablet 100 mg PO DAILY bp 30 days # 30 tabs 07/15/24 Unknown Rx oxycodone 5 mg tablet 5 - 10 mg (1 - 2 x 5 mg) PO Q4H 07/15/24 Unknown Rx PRN PRN Pain Score 4-10 7 days #84 tabs potassium chloride 20 mEq 20 meq PO DAILYCM supplement 30 07/15/24 Unknown Rx tablet,extended release(part/cryst) days #30 tabs arginine 7 gram-glutam 7 1 packet PO DAILY supplement 09/24/24 Unknown History gram-CaHMB 1.5 [id number] oral pwd pkt (Papa (with collagen)) cephalexin 500 mg capsule 500 mg PO Q6H 7 days #28 cap s 09/26/24 Unknown Rx ciprofloxacin HCl 500 mg tablet 500 mg PO BID #14 tabs 09/29/24 Unknown Rx (Cipro) Allergy/AdvReac Type Severity Reaction Status Date / Time latex Allergy Severe Other Verified 09/23/24 16:23 shellfish derived Allergy Severe PASSED Verified 09/23/24 16:23 OUT, DIARRHEA adhesive Allergy Mild Rash Verified 09/23/24 16:23 levofloxacin AdvReac Intermediate WEAK, Verified 09/23/24 16:23 NAUSEA povidone AdvReac Mild Hives Verified 09/23/24 16:23 Surgical History History of bilateral cataract extraction History of colonoscopy S/P insertion of spinal cord stimulator History of partial thyroidectomy History of appendectomy History of left knee surgery History of hysterectomy History of cholecystectomy Social History household members: spouse Smoking Status: Never smoker Electronic Cigarette Use: not used second hand exposure: No alcohol intake: current alcohol intake frequency: a few times a month Alcohol type: wine substance use type: does not use Vital Signs Vital Signs Vital Signs: Weight Weight: 180 lb 13.313 oz Body Mass Index (BMI) 34.1 Physical Exam Const alert, oriented x3, no apparent distress, no limitations, healthy appearing and well nourished General Appearance: cooperative, comfortable, well kempt and well developed Orientation / Consciousness: awake, oriented to person, oriented to place and oriented to time Exam Limitations: no limitations HEENT normocephalic, head/scalp atraumatic and hearing grossly normal bilaterally Head and Scalp: normal to inspection, normocephalic and atraumatic Face and Sinus: normal facial exam Nose: external nose normal External Ear: external ears normal Eyes EOMs intact bilaterally General Eye: normal appearance of both eyes Neck full ROM Resp normal respiratory effort, normal air movement, no retractions and no use of accessory muscles Effort and Inspection: able to speak in complete sentences Extremity no calf tenderness General Extremity: Negative for clubbing or cyanosis Skin Wound Narrative: A dehiscent longitudinal surgical incision is noted overlying the left knee. The dehiscence extends through all layers and into the subcutaneous tissues. There is no odor or drainage. There is no sign of infection or cellulitis. Dimensions are documented elsewhere. The size and depth of the wound continue t o diminish. The base of the wound demonstrates healthy, pink granulation tissue. There is a small amount of bioburden. The margins of the wound appear well beveled, with evidence of peripheral epithelialization. Centrally, the area of exposed fascia has been eliminated by the overgrowth of healthy, pink granulation tissue. The inferior portion of the wound had demonstrated complete epithelialization. The maceration and erythema in the periwound area, noted last week, has now resolved. Minimal swelling and edema are noted. Hair: normal Neuro oriented x3, CN's II-XII intact bilaterally, moves all extremities, no focal motor deficits and no sensory deficits noted Sensorium / Orientation: awake, alert, oriented to person, oriented to place and oriented to time Cranial Nerves: CN normal except as noted Speech: speech normal Psych Appearance: grossly normal and appropriate Attitude: calm Activity / Motor Behavior: appropriate eye contact Speech: normal speech Mood & Affect: euthymic mood Thought Process: normal thought process Thought Content: normal thought content Attention / Concentration: attention grossly intact Debridement Note Debridement Note Wound debrided: Dehiscent left knee surgical incision Laterality: Left Type of Debridement: Excisional debridement Anesthesia Used: 5% Lidocaine Gel and Cetacaine Depth: Down to and including healthy tissue and in the subcutaneous layer Percentage of wound debrided: 100 Instrument Used: 5mm curette Tissue Removed: Bioburden Severity: Fat Layer Exposed Amount of bleeding with debridement: Mild Bleeding Controlled with: Compression and gauze Patient tolerated procedure: Patient tolerated procedure well Post-Debridement Measurements and Additional Note: Post-Debridement Measurements/Treatment - Nurse 1 - General Ulcer Assessment Start: 11/25/24 14:44 Freq: Status: Active Protocol: KENNY Activity Type Activity Date Activity User E-sign Co-sign Detail Recorded Client Recorded Date Recorded By Document 11/25/24 14:44 ML [id number] 11/25/24 14:50 ML 11/25/24 14:44 - Today's Visit Information Type of service Follow-up Visit (Physician/ART PSYCHOTHERAPIST OR THERAPIST ) Arrival Mode Cane Transfer Assistance None Patient Identification Verified (Name & Yes ) Patient Requires Transmission-Based No Precautions Finger Stick Blood Sugar(mg/dl) (if 166 indicated): Blood Sugar Stated by Patient Height and Weight Body Mass Index (BMI) 34.1 BMI Classification Obese Vital Signs Temperature (97.8 F-99.1 F) 97 F L Temperature Source Temporal Pulse Rate (60-100) 73 Pulse Location Monitor Respiratory Rate (12-18) 15 Respiratory rate source Observation Blood Pressure (90/60-120/80) 127/67 H Blood Pressure Mean 87 Source Monitor Position Sitting Blood Pressure Location Right Arm History Since Last Visit- (Skip if this is Patient's initial visit) Have you changed medications since your No last visit? Any new allergies or adverse reactions No Had a fall/change in ADL's that may No increase risk of falls Signs or symptoms of abuse and/or No neglect since last visit Have you been in the hospital since your No last visit? Has dressing in place as prescribed Yes Has compression in place as prescribed N/A Has offloadiing in place as prescribed N/A Experienced any changes in pain level or No management Pain Scale: 0-10 Numeric Is Patient Pain Free? Yes WC - Nurse 1 - General Ulcer Measurement Start: 11/25/24 14:44 Freq: Status: Active Protocol: Activity Type Activity Date Activity User E-sign Co-sign Detail Recorded Client Recorded Date Recorded By Document 11/25/24 14:44 ML [id number] 11/25/24 14:50 ML 11/25/24 14:44 Wound Center Nurse 1 #2 Left Knee Inf -Current Size (cm) - Length 0.8 -Current Size (cm) - Width 0.5 -Current Size (cm) - Depth 0.1 -Total Square Cm 0.40 -Exudate Amt Medium -Exudate Type Serosanguineous -Granulation Amt Medium (34-66%) -Slough/Fibrin Yes -Necrosis Amt Medium (34-66%) -Necrotic Tissue Type Adherent Slough -Texture (Anali-wound Skin Appearance) Assessed -Moisture (Anali-wound Skin Appearance) Assessed -Color (Anali-wound Skin Appearance) Assessed -Temperature (Anali-wound Skin No Abnormality Appearance) (Pt Warm) -Tenderness on Palpation (Anali-wound No Skin Appearance) -Ulcer Cleansing Rinsed/ Irrigated with Saline -Foul Odor after Cleansing No -Anesthetic Used 5% Lidocaine Gel #1,.L knee -Current Size (cm) - Length 0.1 -Current Size (cm) - Width 0.1 -Current Size (cm) - Depth 0.1 -Total Square Cm 0.01 -Exudate Amt None Present -Granulation Amt None Present (0 %) -Slough/Fibrin No -Necrosis Amt None Present (0 %) -Temperature (Anali-wound Skin No Abnormality Appearance) (Pt Warm) -Tenderness on Palpation (Anali-wound No Skin Appearance) GINA - Nurse 2 - General Ulcer CM Notes Start: 11/25/24 14:44 Freq: Status: Active Protocol: Activity Type Activity Date Activity User E-sign Co-sign Detail Recorded Client Recorded Date Recorded By Document 11/25/24 15:33 DS [id number] 11/25/24 15:35 DS 11/25/24 15:33 Wound Center Nurse 2 #2 Left Knee Inf -Time 15:34 -Correct Patient Yes -Procedure Performed No -Wound/Ulcer Outcome Healed- Epithelialized #1,.L knee -Time 15:32 -Correct Patient Yes -Correct Side, Site, Position Yes -Correct Procedure Yes -Procedure Performed Yes -Type of Procedure Debridement -Clinical Debridement Subcutaneous -Tissue Removed Subcutaneous -Post Debridement (cm) - Length 0.5 -Post Debridement (cm) - Width 0.6 -Post Debridement (cm) - Depth 0.1 -Total Square (Post) (cm) 0.30 -Area of Debridement (cm) - Length 0.5 -Area of Debridement (cm) - Width 0.6 -Total Square (Area) (cm) 0.30 -Tunneling No -Undermining/Tunneling No -Circular Undermining No -Wound/Ulcer Outcome Not Healed -Ulcer Cleansing Rinsed/ Irrigated with Saline -Foul Odor after Cleansing No -Bioengineered Tissue No -Bleeding Controlled with Pressure -Treatment Response Procedure Tolerated Well -Debridement - Subq, 1st 20sq cm Yes Pain Scale: 0-10 Numeric Is Patient Pain Free? Yes - Nurse 3 - General Ulcer D/C NN Start: 11/25/24 14:44 Freq: Status: Active Protocol: Activity Type Activity Date Activity User E-sign Co-sign Detail Recorded Client Recorded Date Recorded By Document 11/25/24 15:55 ML [id number] 11/25/24 15:56 ML 11/25/24 15:55 Wound Care Center Nurse 3 #2 Left Knee Inf -Ulcer Cleansing Rinsed/ Irrigated with Saline -Primary Dressing Applied Promogran -Primary Dressing Covered/Secured with Dry Gauze & Roll Gauze, Secured with Tape -Promogran 1 Pain Scale: 0-10 Numeric Is Patient Pain Free? Yes Charges/Coding Procedures Integumentary [id number]: [id number] [place] subq tissue 20 sq cm/< Assessment/Plan Assessment/Plan (1) Non-pressure chronic ulcer of left thigh with fat layer exposed: CODE(S): L97.122 - Non-pressure chronic ulcer of left thigh with fat layer exposed (2) Dehiscence of incision: CODE(S): T81.31XA - Disruption of external operation (surgical) wound, not elsewhere classified, initial encounter QUALIFIERS: Encounter type: subsequent encounter Qualified Code(s): T81.31XD - Disruption of external operation (surgical) wound, not elsewhere classified, subsequent encounter (3) Gangrene associated with type 2 diabetes mellitus: CODE(S): E11.52 - Type 2 diabetes mellitus with diabetic peripheral angiopathy with gangrene (4) Status post revision of total replacement of left knee: CODE(S): Z96.652 - Presence of left artificial knee joint (5) Failed total left knee replacement: CODE(S): T84.093A - Other mechanical complication of internal left knee prosthesis, initial encounter QUALIFIERS: Encounter type: subsequent encounter Qualified Code(s): T84.093D - Other mechanical complication of internal left knee prosthesis, subsequent encounter (6) History of left knee surgery: CODE(S): Z98.890 - Other specified postprocedural states (7) Diabetes: CODE(S): E11.9 - Type 2 diabetes mellitus without complications QUALIFIERS: Diabetes mellitus type: type 2 (8) Diabetic polyneuropathy: CODE(S): E11.42 - Type 2 diabetes mellitus with diabetic polyneuropathy (9) GERD (gastroesophageal reflux disease): CODE(S): K21.9 - Gastro-esophageal reflux disease without esophagitis (10) Hyperlipemia: CODE(S): E78.5 - Hyperlipidemia, unspecified (11) Iron deficiency anemia: CODE(S): D50.9 - Iron deficiency anemia, unspecified (12) Essential (primary) hypertension: CODE(S): I10 - Essential (primary) hypertension (13) Debility: CODE(S): R53.81 - Other malaise (14) Status post total right knee replacement: CODE(S): Z96.651 - Presence of right artificial knee joint (15) Osteoarthritis: (16) History of DVT (deep vein thrombosis): CODE(S): Z86.718 - Personal history of other venous thrombosis and embolism (17) Dyslipidemia: CODE(S): E78.5 - Hyperlipidemia, unspecified (18) Hypothyroidism: CODE(S): E03.9 - Hypothyroidism, unspecified (19) Ocular myasthenia gravis: CODE(S): G70.00 - Myasthenia gravis without (acute) exacerbation (20) History of partial thyroidectomy: CODE(S): E89.0 - Postprocedural hypothyroidism (21) History of appendectomy: CODE(S): Z90.49 - Acquired absence of other specified parts of digestive tract (22) History of hysterectomy: CODE(S): Z90.710 - Acquired absence of both cervix and uterus (23) History of cholecystectomy: CODE(S): Z90.49 - Acquired absence of other specified parts of digestive tract (24) Non-smoker: CODE(S): Z78.9 - Other specified health status (25) History of hiatal hernia: CODE(S): Z87.19 - Personal history of other diseases of the digestive system (26) History of revision of total replacement of left knee joint: CODE(S): Z96.652 - Presence of left artificial knee joint (27) History of bilateral cataract extraction: CODE(S): Z98.41 - Cataract extraction status, right eye; Z98.42 - Cataract extraction status, left eye PLAN: Plan This is a 74-year-old female who underwent the fourth revision of a left total knee replacement on June 19, 2024. She developed gangrene, necrosis, and dehiscence at the surgical site. As a result, the patient presented for definitive evaluation and management with respect to her surgical wound. The large amount of necrotic and nonviable tissue has been eliminated from the site of the patient's surgical wound since her initial presentation. Negative pressure wound therapy was implemented by means of the Wound VAC until recently. There are increasing areas of healthy, pink granulation tissue, which now covers the entirety of the wound. The wound appears to be decreasing in size and depth, and is now quite small. Preauthorization has been received for the use of cellular tissue products. Therefore, EpiFix allograft applications have been used recently, the most recent of which was the sixth such application. Because of the small size of the wound, and recent progress, we are to continue the use of Promogran applied topically on a daily basis. The patient has been instructed in the appropriate means of application. The patient has been encouraged to optimize her nutritional intake, as well as her diabetes managemen t. She has been encouraged to continue taking protein nutritional drinks on a daily basis. She is to coordinate with her primary care physician with regard to diabetes management. She has been encouraged to elevate her left lower extremity to prevent and minimize swelling. Elevation is to be to heart level, during both daytime and nighttime hours. Avoidance of prolonged idle sitting has been encouraged. Activity as tolerated has been encouraged. Tubigrip's have been dispensed for compression purposes. The patient is to follow-up in 1 week for reevaluation. Total time: 24 minutes
[2024-12-02 14:03] VITALS: BP 127/61; PULSE 65; RESP 18; TEMP 35.6; BMI 34.1
--- NOTE | 2024-12-03 12:45 | HP.PCM_ITS ---
History of Present Illness Date of Service: 12/02/24 Chief Complaint: Dehiscent, necrotic surgical wound of the left knee History of Wound: This is a 74-year-old female with a history of left total knee replacement many years ago, which has required several revisions. The most recent revision was performed on June 19, 2024, at the [facility]. This was the fourth left knee revision. Prior revisions required flap reconstruction, and the Plastic Surgery service was involved in the patient's most recent surgery. Postoperatively, the patient was placed on oral doxycycline, which is expected to continue for 3 months. The patient's left lower extremity was locked in extension for 2 weeks. She is now weightbearing on the involved limb. She was admitted to the Transitional Care Unit at [facility] for several weeks postoperatively on June 27, 2024. She has returned to home, with therapy administrative assistant care from her . The patient developed a surgical wound dehiscence and marjorie necrosis and gangrene at the site of her incision. A wound VAC was used initially at the surgical site, but the patient had been using Xeroform more recently. The patient suffers from multiple pre-existing medical conditions, listed herein. She does not smoke. She is using Papa as a nutritional supplement. Her BMI is 34.2. 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 Dehiscence of incision History of revision of total replacement of left knee joint Wears glasses Alcohol use History of steroid therapy Bladder disease Neuropathy Back pain Dietary restriction History of pain when walking Pain Myasthenia gravis Ambulates with cane Rheumatoid arthritis Low iron History of DVT (deep vein thrombosis) Hyperlipemia Difficulty swallowing History of hiatal hernia Gastric reflux Non-smoker Shortness of breath on exertion Chronic cough PONV (postoperative nausea and vomiting) Leg cramps History of edema History of stress test Hypertension Thyroid disease Cataracts, bilateral History of UTI Arthritis Home Medications ?Medication ?Instructions ?Recorded ?Last Taken ?Type folic acid 1 mg tablet 1 mg PO DAILY supplement 06/06/22 History atorvastatin 10 mg tablet 5 mg PO .QOD Cholesterol 06/26/24 18:45 History cholecalciferol (vitamin D3) 50 50 mcg PO DAILY supple ment 09/06/21 06/27/24 History mcg (2,000 unit) capsule ascorbic acid (vitamin C) 500 mg 500 mg PO DAILY suppl ement 02/06/22 06/27/24 History tablet (Vitamin C) dapagliflozin propanediol 5 mg 10 mg PO DAILY blood michaels gar 05/25/22 06/06/22 History tablet (Farxiga) levothyroxine 125 mcg tablet 100 mcg PO DAILY thyroid 05/25/22 06/27/24 History pregabalin 75 mg capsule (Lyrica) 100 mg PO TID pain 0 05/25/22 06/06/22 History hydrochlorothiazide 12.5 mg tablet 12.5 mg PO DAILY Bl ood pressure 06/07/22 Unknown History vibegron 75 mg tablet (Gemtesa) 75 mg PO DAILY Overact cassidy bladder 12/04/22 Unknown History metformin 500 mg tablet,extended 1,000 mg PO BID Diabe freda 06/27/24 06/27/24 05:30 History release 24 hr polysaccharide iron complex 150 mg 65 mg PO QODAY Supp lement 06/27/24 Unknown History iron capsule (Ferrex) losartan 100 mg tablet 100 mg PO DAILY bp 30 days # 30 tabs 07/15/24 Unknown Rx oxycodone 5 mg tablet 5 - 10 mg (1 - 2 x 5 mg) PO Q4H 07/15/24 Unknown Rx PRN PRN Pain Score 4-10 7 days #84 tabs potassium chloride 20 mEq 20 meq PO DAILYCM supplement 30 07/15/24 Unknown Rx tablet,extended release(part/cryst) days #30 tabs arginine 7 gram-glutam 7 1 packet PO DAILY supplement 09/24/24 Unknown History gram-CaHMB 1.5 [id number]-il-min oral pwd pkt (Papa (with collagen)) cephalexin 500 mg capsule 500 mg PO Q6H 7 days #28 cap s 09/26/24 Unknown Rx ciprofloxacin HCl 500 mg tablet 500 mg PO BID #14 tabs 09/29/24 Unknown Rx (Cipro) Allergy/AdvReac Type Severity Reaction Status Date / Time latex Allergy Severe Other Verified 09/23/24 16:23 shellfish derived Allergy Severe PASSED Verified 09/23/24 16:23 OUT, DIARRHEA adhesive Allergy Mild Rash Verified 09/23/24 16:23 levofloxacin AdvReac Intermediate WEAK, Verified 09/23/24 16:23 NAUSEA povidone AdvReac Mild Hives Verified 09/23/24 16:23 Surgical History History of bilateral cataract extraction History of colonoscopy S/P insertion of spinal cord stimulator History of partial thyroidectomy History of appendectomy History of left knee surgery History of hysterectomy History of cholecystectomy Social History household members: spouse Smoking Status: Never smoker Electronic Cigarette Use: not used second hand exposure: No alcohol intake: current alcohol intake frequency: a few times a month Alcohol type: wine substance use type: does not use Vital Signs Vital Signs Vital Signs: 12/02/24 14:03 Temperature 96.0 F L Temperature Source Temporal Pulse Rate 65 Respiratory Rate 18 Blood Pressure 127/61 H Blood Pressure Mean 83 Blood Pressure Source Monitor Blood Pressure Position Semi-Fowlers Blood Pressure Location Right Arm Oxygen Delivery Method Room Air Weight Weight: 180 lb 13.313 oz Body Mass Index (BMI) 34.1 Physical Exam Const alert, oriented x3, no apparent distress, no limitations, healthy appearing and well nourished General Appearance: cooperative, comfortable, well kempt and well developed Orientation / Consciousness: awake, oriented to person, oriented to place and oriented to time Exam Limitations: no limitations HEENT normocephalic, head/scalp atraumatic and hearing grossly normal bilaterally Head and Scalp: normal to inspection, normocephalic and atraumatic Face and Sinus: normal facial exam Nose: external nose normal External Ear: external ears normal Eyes EOMs intact bilaterally General Eye: normal appearance of both eyes Neck full ROM Resp normal respiratory effort, normal air movement, no retractions and no use of accessory muscles Effort and Inspection: able to speak in complete sentences Extremity no calf tenderness General Extremity: Negative for clubbing or cyanosis Skin Wound Narrative: A dehiscent longitudinal surgical incision is noted overlying the left knee. The dehiscence extends through all layers and into the subcutaneous tissues, though most is now healed and epithelialized.. There is no odor. Dimensions are documented elsewhere. The size and depth of the wound continue to diminish. However, there is now a very small eschar remaining, from which the patient states that there has been purulent drainage within the last week. Indeed, manual pressure adjacent to this small eschar, expels a small amount of liquid purulent material. This purulent drainage was cultured for aerobic and anaerobic bacterial growth. Once the overlying eschar was removed, exploration of the site revealed there to be undermining of the wound at the 9 o'clock position. The undermining extended approximately 8 mm. The patient's wound now entails a relatively small opening to a shallow abscess cavity with undermining which extends medially at the 9 o'clock position. A very small superficial ulceration persists within the incision just inferior to the small abscess cavity. The remaining portion of the incision, located inferiorly, remains completely healed and epithelialized. Minimal swelling and edema are noted. Hair: normal Neuro oriented x3, CN's II-XII intact bilaterally, moves all extremities, no focal motor deficits and no sensory deficits noted Sensorium / Orientation: awake, alert, oriented to person, oriented to place and oriented to time Cranial Nerves: CN normal except as noted Speech: speech normal Psych Appearance: grossly normal and appropriate Attitude: calm Activity / Motor Behavior: appropriate eye contact Speech: normal speech Mood & Affect: euthymic mood Thought Process: normal thought process Thought Content: normal thought content Attention / Concentration: attention grossly intact Debridement Note Debridement Note Wound debrided: Dehiscent left knee surgical incision Laterality: Left Type of Debridement: Excisional debridement Anesthesia Used: 5% Lidocaine Gel, Cetacaine and - (Lidocaine with epinephrine per injection) Depth: Down to and including healthy tissue and in the subcutaneous layer Percentage of wound debrided: 100 Instrument Used: 3mm curette, #15 blade, Forceps and - (Cuticle scissors) Tissue Removed: Bioburden Severity: Fat Layer Exposed Amount of bleeding with debridement: Mild Bleeding Controlled with: Compression and gauze Patient tolerated procedure: Patient tolerated procedure well Debridement Free Text: During the course of physical examination today, it was noted that there was purulent drainage from the remaining portion of the wound, which could be expressed by manual pressure at the site. This purulent drainage was cultured for aerobic and anaerobic bacterial growth. Probing of the underlying cavity revealed significant undermining extending medially for approximately 8 mm. Therefore, the decision was made to unroofed this area, in an effort to enhance healing by secondary intention. The area was prepped with Betadine. Lidocaine with epinephrine was injected subcutaneously to provide an adequate level of local anesthesia. A #15 scalpel blade and forceps were then used to sharply excise the overlying dermal and fat layers to unroof the abscess cavity. This was accomplished with minimal discomfort to the patient. Once the abscess cavity had been unroofed, the area was packed with moistened 1/4 inch Nu Gauze. The patient tolerated the procedure well. Post-Debridement Measurements and Additional Note: Post-Debridement Measurements/Treatment WC - Nurse 1 - General Ulcer Assessment Start: 11/25/24 14:44 Freq: Status: Active Protocol: VISHNUEXYakov Activity Type Activity Date Activity User E-sign Co-sign Detail Recorded Client Recorded Date Recorded By Document 11/25/24 14:44 ML [id number] 11/25/24 14:50 ML Document 12/02/24 14:03 KW [id number] 12/02/24 14:09 KW 11/25/24 12/02/24 14:44 14:03 WC - Today's Visit Information Type of service Follow-up Visit Follow-up Visit (Physician/AUTOMOTIVE PARTS MANAGER (Physician/AUTOMOTIVE PARTS MANAGER ) ) Arrival Mode Cane Ambulatory,Cane Transfer Assistance None Accompanied by Patient Identification Verified (Name & Yes Yes ) Patient Requires Transmission-Based No Precautions Finger Stick Blood Sugar(mg/dl) (if 166 indicated): Blood Sugar Stated by Patient Height and Weight Body Mass Index (BMI) 34.1 34.1 BMI Classification Obese Obese Vital Signs Temperature (97.8 F-99.1 F) 97 F L 96.0 F L Temperature Source Temporal Temporal Pulse Rate (60-100) 73 65 Pulse Location Monitor Monitor Respiratory Rate (12-18) 15 18 Respiratory rate source Observation Observation Oxygen Delivery Method Room Air Blood Pressure (90/60-120/80) 127/67 H 127/61 H Blood Pressure Mean 87 83 Source Monitor Monitor Position Sitting Semi-Fowlers Blood Pressure Location Right Arm Right Arm History Since Last Visit- (Skip if this is Patient's initial visit) Have you changed medications since your No No last visit? Any new allergies or adverse reactions No No Had a fall/change in ADL's that may No No increase risk of falls Signs or symptoms of abuse and/or No No neglect since last visit Have you been in the hospital since your No No last visit? Has dressing in place as prescribed Yes Yes Has compression in place as prescribed N/A Yes Has offloadiing in place as prescribed N/A N/A Experienced any changes in pain level or No No management Left Footwear Regular Shoe Right Footwear Regular Shoe Pain Scale: 0-10 Numeric Is Patient Pain Free? Yes Yes WC - Nurse 1 - General Ulcer Measurement Start: 11/25/24 14:44 Freq: Status: Active Protocol: Activity Type Activity Date Activity User E-sign Co-sign Detail Recorded Client Recorded Date Recorded By Document 11/25/24 14:44 ML [id number] 11/25/24 14:50 ML Document 12/02/24 14:03 KW [id number] 12/02/24 14:09 KW 11/25/24 12/02/24 14:44 14:03 Wound Center Nurse 1 #2 Left Knee Inf -Current Size (cm) - Length 0.8 0.1 -Current Size (cm) - Width 0.5 0.1 -Current Size (cm) - Depth 0.1 0 -Total Square Cm 0.40 0.01 -Date of Last Picture (Recall this 12/02/24 field) -Epithelialization Large 67-100% -Exudate Amt Medium Small -Exudate Type Serosanguineous Purulent -Wound Margin Indistinct, Non -Visible -Granulation Amt Medium (34-66%) Large (67-100%) -Slough/Fibrin Yes -Necrosis Amt Medium (34-66%) Small (1-33%) -Necrotic Tissue Type Adherent Slough Adherent Slough -Texture (Anali-wound Skin Appearance) Assessed Assessed -Moisture (Anali-wound Skin Appearance) Assessed Assessed -Color (Anali-wound Skin Appearance) Assessed Assessed -Temperature (Anali-wound Skin No Abnormality No Abnormality Appearance) (Pt Warm) (Pt Warm) -Tenderness on Palpation (Anali-wound No No Skin Appearance) -Ulcer Cleansing Rinsed/ Rinsed/ Irrigated with Irrigated with Saline Saline -Foul Odor after Cleansing No No -Anesthetic Used 5% Lidocaine 5% Lidocaine Gel Gel #1,.L knee -Current Size (cm) - Length 0.1 0.1 -Current Size (cm) - Width 0.1 0.1 -Current Size (cm) - Depth 0.1 0 -Total Square Cm 0.01 0.01 -Date of Last Picture (Recall this 12/02/24 field) -Exudate Amt None Present Small -Exudate Type Purulent -Wound Margin Indistinct, Non -Visible -Granulation Amt None Present (0 %) -Slough/Fibrin No -Necrosis Amt None Present (0 Small (1-33%) %) -Necrotic Tissue Type Adherent Slough -Texture (Anali-wound Skin Appearance) Assessed -Moisture (Anali-wound Skin Appearance) Assessed -Color (Anali-wound Skin Appearance) Assessed -Temperature (Anali-wound Skin No Abnormality No Abnormality Appearance) (Pt Warm) (Pt Warm) -Tenderness on Palpation (Anali-wound No No Skin Appearance) -Ulcer Cleansing Rinsed/ Irrigated with Saline -Foul Odor after Cleansing No -Anesthetic Used 5% Lidocaine Gel WC - Nurse 2 - General Ulcer CM Notes Start: 11/25/24 14:44 Freq: Status: Active Protocol: Activity Type Activity Date Activity User E-sign Co-sign Detail Recorded Client Recorded Date Recorded By Document 11/25/24 15:33 DS [id number] 11/25/24 15:35 DS Document 12/02/24 14:24 DS [id number] 12/02/24 14:35 DS Edit Result 12/02/24 14:24 DS (1) [id number] 12/02/24 14:38 DS (1) #1,.L knee - Wound Comment(s) => 9? tunnel w/ 0.8cm depth was unroofed. 11/25/24 12/02/24 15:33 14:24 Wound Center Nurse 2 #2 Left Knee Inf -Time 15:34 -Correct Patient Yes -Procedure Performed No -Wound/Ulcer Outcome Healed- Epithelialized #1,.L knee -Time 15:32 14:00 -Correct Patient Yes Yes -Correct Side, Site, Position Yes Yes -Correct Procedure Yes Yes -Procedure Performed Yes Yes -Type of Procedure Debridement Debridement -Clinical Debridement Subcutaneous Subcutaneous -Tissue Removed Subcutaneous Subcutaneous -Post Debridement (cm) - Length 0.5 0.3 -Post Debridement (cm) - Width 0.6 1.2 -Post Debridement (cm) - Depth 0.1 0.3 -Total Square (Post) (cm) 0.30 0.36 -Area of Debridement (cm) - Length 0.5 0.3 -Area of Debridement (cm) - Width 0.6 1.2 -Total Square (Area) (cm) 0.30 0.36 -Tunneling No No -Undermining/Tunneling No No -Circular Undermining No No -Wound/Ulcer Outcome Not Healed Not Healed -Ulcer Cleansing Rinsed/ Rinsed/ Irrigated with Irrigated with Saline Saline -Foul Odor after Cleansing No No -Bioengineered Tissue No No -Injectable Lidocaine w/ Epi (%) 1 -Injectable Lidocaine w/ Epi (mls) 10 -Bleeding Controlled with Pressure Pressure -Treatment Response Procedure Procedure Tolerated Well Tolerated Well -Debridement - Subq, 1st 20sq cm Yes Yes -Wound Comment(s) 9? tunnel w/ 0. 8cm depth was unroofed. Pain Scale: 0-10 Numeric Is Patient Pain Free? Yes Yes - Nurse 3 - General Ulcer D/C NN Start: 11/25/24 14:44 Freq: Status: Active Protocol: Activity Type Activity Date Activity User E-sign Co-sign Detail Recorded Client Recorded Date Recorded By Document 11/25/24 15:55 ML [id number] 11/25/24 15:56 ML Document 12/02/24 14:42 KW [id number] 12/02/24 14:44 KW 11/25/24 12/02/24 15:55 14:42 Wound Care Center Nurse 3 #2 Left Knee Inf -Ulcer Cleansing Rinsed/ Irrigated with Saline -Primary Dressing Applied Promogran -Primary Dressing Covered/Secured with Dry Gauze & Roll Gauze, Secured with Tape -Promogran 1 #1,.L knee -Primary Dressing Applied C Hydrogel, Nugauze, Iodoform 1/4in -Other Dressing abd/ kerlix/vikas -Primary Dressing Covered/Secured with Dry Gauze,Dry Gauze & Roll Gauze,Secured with Tape -Hydrogel 1 -Nugauze, Iodoform 1/4 1 left knee -Other vikas Treatment Response Procedure Tolerated Well Pain Scale: 0-10 Numeric Is Patient Pain Free? Yes Yes - Visit Discharge Discharge Condition Stable Ambulatory Status Ambulatory,Cane Transportation Private Auto Accompanied by Medication Reconcilliation completed & No provided to patient/care provider Clinical Summary of Care Provided Yes Lab / Micro Data Micro: Microbiology 12/02/24 14:16 Wound - Knee Gram Stain - Final 12/02/24 14:16 Wound - Knee Wound Culture - Preliminary No growth-Final to follow Charges/Coding Procedures Integumentary [id number]: [id number] [place] subq tissue 20 sq cm/< Assessment/Plan Assessment/Plan (1) Non-pressure chronic ulcer of left thigh with fat layer exposed: CODE(S): L97.122 - Non-pressure chronic ulcer of left thigh with fat layer exposed (2) Dehiscence of incision: CODE(S): T81.31XA - Disruption of external operation (surgical) wound, not elsewhere classified, initial encounter QUALIFIERS: Encounter type: subsequent encounter Qualified Code(s): T81.31XD - Disruption of external operation (surgical) wound, not elsewhere classified, subsequent encounter (3) Gangrene associated with type 2 diabetes mellitus: CODE(S): E11.52 - Type 2 diabetes mellitus with diabetic peripheral angiopathy with gangrene (4) Status post revision of total replacement of left knee: CODE(S): Z96.652 - Presence of left artificial knee joint (5) Failed total left knee replacement: CODE(S): T84.093A - Other mechanical complication of internal left knee prosthesis, initial encounter QUALIFIERS: Encounter type: subsequent encounter Qualified Code(s): T84.093D - Other mechanical complication of internal left knee prosthesis, subsequent encounter (6) History of left knee surgery: CODE(S): Z98.890 - Other specified postprocedural states (7) Diabetes: CODE(S): E11.9 - Type 2 diabetes mellitus without complications QUALIFIERS: Diabetes mellitus type: type 2 (8) Diabetic polyneuropathy: CODE(S): E11.42 - Type 2 diabetes mellitus with diabetic polyneuropathy (9) GERD (gastroesophageal reflux disease): CODE(S): K21.9 - Gastro-esophageal reflux disease without esophagitis (10) Hyperlipemia: CODE(S): E78.5 - Hyperlipidemia, unspecified (11) Iron deficiency anemia: CODE(S): D50.9 - Iron deficiency anemia, unspecified (12) Essential (primary) hypertension: CODE(S): I10 - Essential (primary) hypertension (13) Debility: CODE(S): R53.81 - Other malaise (14) Status post total right knee replacement: CODE(S): Z96.651 - Presence of right artificial knee joint (15) Osteoarthritis: (16) History of DVT (deep vein thrombosis): CODE(S): Z86.718 - Personal history of other venous thrombosis and embolism (17) Dyslipidemia: CODE(S): E78.5 - Hyperlipidemia, unspecified (18) Hypothyroidism: CODE(S): E03.9 - Hypothyroidism, unspecified (19) Ocular myasthenia gravis: CODE(S): G70.00 - Myasthenia gravis without (acute) exacerbation (20) History of partial thyroidectomy: CODE(S): E89.0 - Postprocedural hypothyroidism (21) History of appendectomy: CODE(S): Z90.49 - Acquired absence of other specified parts of digestive tract (22) History of hysterectomy: CODE(S): Z90.710 - Acquired absence of both cervix and uterus (23) History of cholecystectomy: CODE(S): Z90.49 - Acquired absence of other specified parts of digestive tract (24) Non-smoker: CODE(S): Z78.9 - Other specified health status (25) History of hiatal hernia: CODE(S): Z87.19 - Personal history of other diseases of the digestive system (26) History of revision of total replacement of left knee joint: CODE(S): Z96.652 - Presence of left artificial knee joint (27) History of bilateral cataract extraction: CODE(S): Z98.41 - Cataract extraction status, right eye; Z98.42 - Cataract extraction status, left eye PLAN: Plan This is a 74-year-old female who underwent the fourth revision of a left total knee replacement on June 19, 2024. She developed gangrene, necrosis, and dehiscence at the surgical site. As a result, the patient presented for definitive evaluation and management with respect to her surgical wound. The large amount of necrotic and nonviable tissue has been eliminated from the site of the patient's surgical wound during her initial visits. Negative pressure wound therapy was implemented by means of the Wound VAC until recently. The patient's surgical wound dehiscence has shown steady progress and improvement. There has been significant healing and epithelization at the site. In fact, the wound is nearly healed. However, the patient presented today with a small eschar at the site, from which purulent material has been draining. The drainage has been cultured today for aerobic and anaerobic bacterial growth. Culture results will be awaited. A more extensive debridement was performed today, unroofing the abscess cavity in the area of undermining. The procedure was well-tolerated by the patient. The abscess cavity has been packed with moistened 1/4 inch Nu Gauze. The patient and her have been instructed in the appropriate means of wound packing using moistened 1/4 inch Nu Gauze. They have been provided the appropriate and necessary supplies to do so. The patient has been encouraged to optimize her nutritional intake, as well as her diabetes management. She has been encouraged to continue taking protein nutritional drinks on a daily basis. She is to coordinate with her primary care physician with regard to diabetes management. She has been encouraged to elevate her left lower extremity to prevent and minimize swelling. Elevation is to be to heart level, during both daytime and nighttime hours. Avoidance of prolonged idle sitting has been encouraged. Activity as tolerated has been encouraged. Tubigrip's have been dispensed for compression purposes. The patient is to follow-up in 2 weeks for reevaluation. Total time: 28 minutes
--- NOTE | 2024-12-04 10:09 | WC ---
PHOTO 12/02/24 LEFT KNEE INF/SUP
[2024-12-16 14:10] VITALS: BP 128/62; PULSE 76; RESP 18; TEMP 36.4; BMI 34.1
--- NOTE | 2024-12-17 11:57 | WC ---
PHOTO 12/16/24 LEFT KNEE
== END 2024-12-22 23:59 | disposition home or self-care (01) ==
LOC: WC 14:00
PROVIDERS: PCP Internal Medicine; Visit Provider Surgery
DX: E11.622 Type 2 diabetes mellitus with other skin ulcer (principal); E11.52 Type 2 diabetes mellitus with diabetic peripheral angiopathy with gangrene; L97.122 Non-pressure chronic ulcer of left thigh with fat layer exposed; G70.00 Myasthenia gravis without (acute) exacerbation; E11.42 Type 2 diabetes mellitus with diabetic polyneuropathy; E78.5 Hyperlipidemia, unspecified; M19.90 Unspecified osteoarthritis, unspecified site; D50.9 Iron deficiency anemia, unspecified; Z79.891 Long term (current) use of opiate analgesic; K21.9 Gastro-esophageal reflux disease without esophagitis; Z96.653 Presence of artificial knee joint, bilateral; E89.0 Postprocedural hypothyroidism; Z79.84 Long term (current) use of oral hypoglycemic drugs; R53.81 Other malaise; I10 Essential (primary) hypertension; Z86.718 Personal history of other venous thrombosis and embolism; Z90.710 Acquired absence of both cervix and uterus; Z96.652 Presence of left artificial knee joint; T81.31XD Disruption of external operation (surgical) wound, not elsewhere classified, subsequent encounter; T84.093D Other mechanical complication of internal left knee prosthesis, subsequent encounter; Z87.19 Personal history of other diseases of the digestive system; Z98.41 Cataract extraction status, right eye; Z90.49 Acquired absence of other specified parts of digestive tract
CPT/HCPCS: 11042; 87070; 87075; 87077; 87186; 87205; 99212; G0463

== ENCOUNTER 2025-01-21 13:45 | Outpatient (RCR) | payer MEDICARE, SELFPAY ==
[2024-12-23 00:45] VITALS: BP 128/62; PULSE 76; RESP 18; TEMP 36.4; BMI 34.1
[2024-12-23 14:11] VITALS: BP 122/63; PULSE 61; RESP 18; TEMP 36.5; BMI 34.1
--- NOTE | 2024-12-26 13:48 | PCM.WC.HP ---
History of Present Illness Date of Service: 12/23/24 Chief Complaint: Dehiscent, necrotic surgical wound of the left knee History of Wound: This is a 74-year-old female with a history of left total knee replacement many years ago, which has required several revisions. The most recent revision was performed on June 19, 2024, at the [facility]. This was the fourth left knee revision. Prior revisions required flap reconstruction, and the Plastic Surgery service was involved in the patient's most recent surgery. Postoperatively, the patient was placed on oral doxycycline, which is expected to continue for 3 months. The patient's left lower extremity was locked in extension for 2 weeks. She is now weightbearing on the involved limb. She was admitted to the Transitional Care Unit at [facility] for several weeks postoperatively on June 27, 2024. She has returned to home, with title i instructional assistant care from her . The patient developed a surgical wound dehiscence and marjorie necrosis and gangrene at the site of her incision. A wound VAC was used initially at the surgical site, but the patient had been using Xeroform more recently. The patient suffers from multiple pre-existing medical conditions, listed herein. She does not smoke. She is using Papa as a nutritional supplement. Her BMI is 34.2. 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 Dehiscence of incision History of revision of total replacement of left knee joint Wears glasses Alcohol use History of steroid therapy Bladder disease Neuropathy Back pain Dietary restriction History of pain when walking Pain Myasthenia gravis Ambulates with cane Rheumatoid arthritis Low iron History of DVT (deep vein thrombosis) Hyperlipemia Difficulty swallowing History of hiatal hernia Gastric reflux Non-smoker Shortness of breath on exertion Chronic cough PONV (postoperative nausea and vomiting) Leg cramps History of edema History of stress test Hypertension Thyroid disease Cataracts, bilateral History of UTI Arthritis Home Medications ?Medication ?Instructions ?Recorded ?Last Taken ?Type folic acid 1 mg tablet 1 mg PO DAILY supplement 10/13/13 06/06/22 History atorvastatin 10 mg tablet 5 mg PO .QOD Cholesterol 09/06/21 06/26/24 18:45 History cholecalciferol (vitamin D3) 50 50 mcg PO DAILY supplement 09/06/21 06/27/24 History mcg (2,000 unit) capsule ascorbic acid (vitamin C) 500 mg 500 mg PO DAILY supplement 02/06/22 06/27/24 History tablet (Vitamin C) dapagliflozin propanediol 5 mg 10 mg PO DAILY blood sugar 05/25/22 06/06/22 History tablet (Farxiga) levothyroxine 125 mcg tablet 100 mcg PO DAILY thyroid 05/25/22 06/27/24 History pregabalin 75 mg capsule (Lyrica) 100 mg PO TID pain 05/25/22 06/06/22 History hydrochlorothiazide 12.5 mg tablet 12.5 mg PO DAILY Blood pressure 06/07/22 Unknown History vibegron 75 mg tablet (Gemtesa) 75 mg PO DAILY Overactive bladder 12/04/22 Unknown History metformin 500 mg tablet,extended 1,000 mg PO BID Diabetes 06/27/24 06/27/24 05:30 History release 24 hr polysaccharide iron complex 150 mg 65 mg PO QODAY Supplement 06/27/24 Unknown History iron capsule (Ferrex) losartan 100 mg tablet 100 mg PO DAILY bp 30 days #30 tabs 07/15/24 Unknown Rx oxycodone 5 mg tablet 5 - 10 mg (1 - 2 x 5 mg) PO Q4H 07/15/24 Unknown Rx PRN PRN Pain Score 4-10 7 days #84 tabs potassium chloride 20 mEq 20 meq PO DAILYCM supplement 30 07/15/24 Unknown Rx tablet,extended release(part/cryst) days #30 tabs arginine 7 gram-glutam 7 1 packet PO DAILY supplement 09/24/24 Unknown History gram-CaHMB 1.5 [id number]-cqlsx-to-min oral pwd pkt (Papa (with collagen)) cephalexin 500 mg capsule 500 mg PO Q6H 7 days #28 caps 09/26/24 Unknown Rx ciprofloxacin HCl 500 mg tablet 500 mg PO BID #14 tabs 09/29/24 Unknown Rx (Cipro) ciprofloxacin HCl 500 mg tablet 500 mg PO Q12H #14 tabs 12/06/24 Unknown Rx pyridostigmine bromide 60 mg tablet See Rx Instructions .Route 12/18/24 Unknown Rx .COMPLEX #180 tabs Allergy/AdvReac Type Severity Reaction Status Date / Time latex Allergy Severe Other Verified 12/18/24 14:41 shellfish derived Allergy Severe PASSED Verified 12/18/24 14:41 OUT, DIARRHEA adhesive Allergy Mild Rash Verified 12/18/24 14:41 levofloxacin AdvReac Intermediate WEAK, Verified 12/18/24 14:41 NAUSEA povidone AdvReac Mild Hives Verified 12/18/24 14:41 Surgical History History of bilateral cataract extraction History of colonoscopy S/P insertion of spinal cord stimulator History of partial thyroidectomy History of appendectomy History of left knee surgery History of hysterectomy History of cholecystectomy Social History household members: spouse Smoking Status: Never smoker Electronic Cigarette Use: not used second hand exposure: No alcohol intake: current alcohol intake frequency: a few times a month Alcohol type: wine substance use type: does not use Vital Signs Vital Signs Vital Signs: Weight Weight: 180 lb 13.313 oz Body Mass Index (BMI) 34.1 Physical Exam Const alert, oriented x3, no apparent distress, no limitations, healthy appearing and well nourished General Appearance: cooperative, comfortable, well kempt and well developed Orientation / Consciousness: awake, oriented to person, oriented to place and oriented to time Exam Limitations: no limitations HEENT normocephalic, head/scalp atraumatic and hearing grossly normal bilaterally Head and Scalp: normal to inspection, normocephalic and atraumatic Face and Sinus: normal facial exam Nose: external nose normal External Ear: external ears normal Eyes EOMs intact bilaterally General Eye: normal appearance of both eyes Neck full ROM Resp normal respiratory effort, normal air movement, no retractions and no use of accessory muscles Effort and Inspection: able to speak in complete sentences Extremity no calf tenderness General Extremity: Negative for clubbing or cyanosis Skin Wound Narrative: The dehiscent left knee wound is now nearly totally healed. It appears as though the incision itself is completely healed and epithelialized. There is a very small satellite wound to the right of the vertical knee incision. Its dimensions are documented elsewhere. It is full-thickness in nature. There is no sign of infection or cellulitis. At first inspection, it is a small eschar overlying the full-thickness wound. Minimal swelling and edema are noted in the patient's left lower extremity. Hair: normal Neuro oriented x3, CN's II-XII intact bilaterally, moves all extremities, no focal motor deficits and no sensory deficits noted Sensorium / Orientation: awake, alert, oriented to person, oriented to place and oriented to time Cranial Nerves: CN normal except as noted Speech: speech normal Psych Appearance: grossly normal and appropriate Attitude: calm Activity / Motor Behavior: appropriate eye contact Speech: normal speech Mood & Affect: euthymic mood Thought Process: normal thought process Thought Content: normal thought content Attention / Concentration: attention grossly intact Debridement Note Debridement Note Wound debrided: Dehiscent left knee surgical incision Laterality: Left Type of Debridement: Excisional debridement Anesthesia Used: 5% Lidocaine Gel and Cetacaine Depth: Down to and including healthy tissue and in the subcutaneous layer Percentage of wound debrided: 100 Instrument Used: 3mm curette Tissue Removed: Bioburden and eschar Severity: Fat Layer Exposed Amount of bleeding with debridement: Mild Bleeding Controlled with: Compression and gauze Patient tolerated procedure: Patient tolerated procedure well Debridement Free Text: A very small wound remains, which initially presented with an eschar overlying the wound. A full-thickness excisional debridement was performed, removing the eschar and bioburden. Post-Debridement Measurements and Additional Note: Post-Debridement Measurements/Treatment - Nurse 1 - General Ulcer Assessment Start: 12/23/24 14:10 Freq: Status: Active Protocol: KENNY Activity Type Activity Date Activity User E-sign Co-sign Detail Recorded Client Recorded Date Recorded By Document 12/23/24 14:11 GORDO [id number] 12/23/24 14:17 GORDO 12/23/24 14:11 - Today's Visit Information Type of service Follow-up Visit (Physician/COMPLIANCE PROFESSIONAL ) Arrival Mode Ambulatory,Cane Accompanied by Patient Identification Verified (Name & Yes ) Height and Weight Body Mass Index (BMI) 34.1 BMI Classification Obese Vital Signs Temperature (97.8 F-99.1 F) 97.7 F L Temperature Source Temporal Pulse Rate (60-100) 61 Pulse Location Monitor Respiratory Rate (12-18) 18 Respiratory rate source Observation Oxygen Delivery Method Room Air Blood Pressure (90/60-120/80) 122/63 H Blood Pressure Mean 82 Source Monitor Position Semi-Fowlers Blood Pressure Location Left Arm History Since Last Visit- (Skip if this is Patient's initial visit) Have you changed medications since your No last visit? Any new allergies or adverse reactions No Had a fall/change in ADL's that may No increase risk of falls Signs or symptoms of abuse and/or No neglect since last visit Have you been in the hospital since your No last visit? Has dressing in place as prescribed Yes Has compression in place as prescribed Yes Has offloadiing in place as prescribed N/A Experienced any changes in pain level or No management Left Footwear Regular Shoe Right Footwear Regular Shoe Pain Scale: 0-10 Numeric Is Patient Pain Free? Yes - Nurse 1 - General Ulcer Measurement Start: 12/23/24 14:10 Freq: Status: Active Protocol: Activity Type Activity Date Activity User E-sign Co-sign Detail Recorded Client Recorded Date Recorded By Document 12/23/24 14:11 GORDO [id number] 12/23/24 14:17 KW 12/23/24 14:11 Wound Center Nurse 1 #1,.L knee -Current Size (cm) - Length 0.1 -Current Size (cm) - Width 0.1 -Current Size (cm) - Depth 0 -Total Square Cm 0.01 -Date of Last Picture (Recall this 12/23/24 field) -Epithelialization Large 67-100% -Exudate Amt None Present -Wound Margin Distinct, Outline Attached -Necrosis Amt Large (67-100%) -Necrotic Tissue Type Adherent Slough -Texture (Anali-wound Skin Appearance) Assessed -Moisture (Anali-wound Skin Appearance) Assessed -Color (Anali-wound Skin Appearance) Assessed -Temperature (Anali-wound Skin No Abnormality Appearance) (Pt Warm) -Tenderness on Palpation (Anali-wound No Skin Appearance) -Ulcer Cleansing Rinsed/ Irrigated with Saline -Foul Odor after Cleansing No -Anesthetic Used 5% Lidocaine Gel -Wound Comment(s) SCABBED - Nurse 2 - General Ulcer CM Notes Start: 12/23/24 14:10 Freq: Status: Active Protocol: Activity Type Activity Date Activity User E-sign Co-sign Detail Recorded Client Recorded Date Recorded By Document 12/23/24 14:53 DS [id number] 12/23/24 14:57 DS 12/23/24 14:53 Wound Center Nurse 2 -Time 14:54 -Correct Patient Yes -Correct Side, Site, Position Yes -Correct Procedure Yes -Procedure Performed Yes -Type of Procedure Debridement -Clinical Debridement Subcutaneous -Tissue Removed Subcutaneous -Post Debridement (cm) - Length 0.1 -Post Debridement (cm) - Width 0.2 -Post Debridement (cm) - Depth 0.1 -Total Square (Post) (cm) 0.02 -Area of Debridement (cm) - Length 0.1 -Area of Debridement (cm) - Width 0.2 -Total Square (Area) (cm) 0.02 -Tunneling No -Undermining/Tunneling No -Circular Undermining No -Wound/Ulcer Outcome Not Healed -Bleeding Controlled with Pressure -Treatment Response Procedure Tolerated Well -Debridement - Subq, 1st 20sq cm Yes Pain Scale: 0-10 Numeric Is Patient Pain Free? Yes - Nurse 3 - General Ulcer D/C NN Start: 12/23/24 14:10 Freq: Status: Active Protocol: Activity Type Activity Date Activity User E-sign Co-sign Detail Recorded Client Recorded Date Recorded By Document 12/23/24 15:25 RB [id number] 12/23/24 15:26 RB 12/23/24 15:25 Wound Care Center Nurse 3 #1,.L knee -Ulcer Cleansing Rinsed/ Irrigated with Saline -Other Dressing HYDROGEL -Primary Dressing Covered/Secured with Dry Gauze,Dry Gauze & Roll Gauze,Secured with Tape left knee -Other TIA Treatment Response Procedure Tolerated Well Pain Scale: 0-10 Numeric Is Patient Pain Free? Yes - Visit Discharge Discharge Condition Stable Ambulatory Status Ambulatory,Cane Transportation Private Auto Medication Reconcilliation completed & No provided to patient/care provider Clinical Summary of Care Provided Yes Charges/Coding Procedures Integumentary [id number]: [id number] [place] subq tissue 20 sq cm/< Assessment/Plan Assessment/Plan (1) Non-pressure chronic ulcer of left thigh with fat layer exposed: CODE(S): L97.122 - Non-pressure chronic ulcer of left thigh with fat layer exposed (2) Dehiscence of incision: CODE(S): T81.31XA - Disruption of external operation (surgical) wound, not elsewhere classified, initial encounter QUALIFIERS: Encounter type: subsequent encounter Qualified Code(s): T81.31XD - Disruption of external operation (surgical) wound, not elsewhere classified, subsequent encounter (3) Gangrene associated with type 2 diabetes mellitus: CODE(S): E11.52 - Type 2 diabetes mellitus with diabetic peripheral angiopathy with gangrene (4) Status post revision of total replacement of left knee: CODE(S): Z96.652 - Presence of left artificial knee joint (5) Failed total left knee replacement: CODE(S): T84.093A - Other mechanical complication of internal left knee prosthesis, initial encounter QUALIFIERS: Encounter type: subsequent encounter Qualified Code(s): T84.093D - Other mechanical complication of internal left knee prosthesis, subsequent encounter (6) History of left knee surgery: CODE(S): Z98.890 - Other specified postprocedural states (7) Diabetes: CODE(S): E11.9 - Type 2 diabetes mellitus without complications QUALIFIERS: Diabetes mellitus type: type 2 (8) Diabetic polyneuropathy: CODE(S): E11.42 - Type 2 diabetes mellitus with diabetic polyneuropathy (9) GERD (gastroesophageal reflux disease): CODE(S): K21.9 - Gastro-esophageal reflux disease without esophagitis (10) Hyperlipemia: CODE(S): E78.5 - Hyperlipidemia, unspecified (11) Iron deficiency anemia: CODE(S): D50.9 - Iron deficiency anemia, unspecified (12) Essential (primary) hypertension: CODE(S): I10 - Essential (primary) hypertension (13) Debility: CODE(S): R53.81 - Other malaise (14) Status post total right knee replacement: CODE(S): Z96.651 - Presence of right artificial knee joint (15) Osteoarthritis: (16) History of DVT (deep vein thrombosis): CODE(S): Z86.718 - Personal history of other venous thrombosis and embolism (17) Dyslipidemia: CODE(S): E78.5 - Hyperlipidemia, unspecified (18) Hypothyroidism: CODE(S): E03.9 - Hypothyroidism, unspecified (19) Ocular myasthenia gravis: CODE(S): G70.00 - Myasthenia gravis without (acute) exacerbation (20) History of partial thyroidectomy: CODE(S): E89.0 - Postprocedural hypothyroidism (21) History of appendectomy: CODE(S): Z90.49 - Acquired absence of other specified parts of digestive tract (22) History of hysterectomy: CODE(S): Z90.710 - Acquired absence of both cervix and uterus (23) History of cholecystectomy: CODE(S): Z90.49 - Acquired absence of other specified parts of digestive tract (24) Non-smoker: CODE(S): Z78.9 - Other specified health status (25) History of hiatal hernia: CODE(S): Z87.19 - Personal history of other diseases of the digestive system (26) History of revision of total replacement of left knee joint: CODE(S): Z96.652 - Presence of left artificial knee joint (27) History of bilateral cataract extraction: CODE(S): Z98.41 - Cataract extraction status, right eye; Z98.42 - Cataract extraction status, left eye PLAN: Plan This is a 74-year-old female who underwent the fourth revision of a left total knee replacement on June 19, 2024. She developed gangrene, necrosis, and dehiscence at the surgical site. As a result, the patient presented for definitive evaluation and management with respect to her surgical wound. The large amount of necrotic and nonviable tissue has been eliminated from the site of the patient's surgical wound during her initial visits. Negative pressure wound therapy was also implemented during the patient's course. The patient's surgical wound dehiscence has shown steady progress and improvement. There has been significant healing and epithelization at the site. In fact, the wound is nearly healed. There remains only a very small full-thickness ulceration to the right of the patient's vertical incision. We are to implement the use of collagen hydrogel topically to the site, which will be applied on a daily basis. The patient and her have been instructed in the appropriate means of application. The patient has been encouraged to optimize her nutritional intake, as well as her diabetes management. She has been encouraged to continue taking protein nutritional drinks on a daily basis. She is to coordinate with her primary care physician with regard to diabetes management. She has been encouraged to elevate her left lower extremity to prevent and minimize swelling. Elevation is to be to heart level, during both daytime and nighttime hours. Avoidance of prolonged idle sitting has been encouraged. Activity as tolerated has been encouraged. Tubigrip's have been dispensed for compression purposes. Recent cultures were positive for very rare Pseudomonas. The patient has completed a course of Cipro 500 mg p.o. twice daily, which was prescribed for 7 days. The patient is to follow-up in 1 week for reevaluation. Total time: 25 minutes
[2024-12-31 09:42] VITALS: BP 154/73; PULSE 76; RESP 16; TEMP 36.4; BMI 34.1
--- NOTE | 2024-12-31 12:12 | PCM.WC.PN ---
History of Present Illness Date of Service: 12/31/24 Chief Complaint: Dehiscent, necrotic surgical wound of the left knee History of Wound: This is a 74-year-old female with a history of left total knee replacement many years ago, which has required several revisions. The most recent revision was performed on June 19, 2024, at the [facility]. This was the fourth left knee revision. Prior revisions required flap reconstruction, and the Plastic Surgery service was involved in the patient's most recent surgery. Postoperatively, the patient was placed on oral doxycycline, which is expected to continue for 3 months. The patient's left lower extremity was locked in extension for 2 weeks. She is now weightbearing on the involved limb. She was admitted to the Transitional Care Unit at [facility] for several weeks postoperatively on June 27, 2024. 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 The patient developed a surgical wound dehiscence and marjorie necrosis and gangrene at the site of her incision. A wound VAC was used initially at the surgical site, but the patient had been using Xeroform more recently. The patient suffers from multiple pre-existing medical conditions, listed herein. She does not smoke. She is using Papa as a nutritional supplement. Her BMI is 34.2. Progress of Wound: Courtesy visit for Dr. Esquivel on her left knee which she has just a pinhole of an opening off the scar tissue area that is having a hard time healing she is use quite a bit of things right now she is using hydrogel we went back to Promogran and I stuffed it down in there and I showed the how to stick it down in there with the wooden end of the Q-tip. It still drains some serous fluid it still has an opening that you can get your #3 curette into. Subjective Subjective Patient and were eager to learn how to do the dressing changes very cooperative Objective Data Objective Data The wound looks good there is no sign of infection he has serous discharge and very small hole pinhole that needs to be closed we will try using Promogran again now that the infection has been under control. Vital Signs: Vital Signs Temp Pulse Resp BP O2 Del Method 97.5 F L 76 16 154/73 H Room Air 12/31/24 09:42 12/31/24 09:42 12/31/24 09:42 12/31/24 09:42 12/31/24 09:42 Oxygen Delivery Method Room Air Weight: 180 lb 13.313 oz Body Mass Index (BMI) 34.1 Lab / Micro Data Attestation: I reviewed the patient's lab results. Physical Exam Const oriented x3 General Appearance: cooperative Exam Limitations: no limitations HEENT normocephalic Eyes General Eye: normal appearance of both eyes Neck full ROM General: normal visual inspection Resp normal respiratory effort Effort and Inspection: able to speak in complete sentences Auscultation: clear to auscultation bilaterally Cardio regular rate and regular rhythm Palpation: normal PMI Rate: regular rate Rhythm: regular rhythm Extremity normal to inspection General Extremity: no tenderness to palpation of joints or extremities Skin no rashes or lesions noted Wounds: wounds noted Wound Narrative: Small pinhole wound that still has depth with serous drainage on the healing part of the knee scar Neuro oriented x3 Psych Appearance: grossly normal Speech: normal speech Thought Content: normal thought content Judgement: judgement good Debridement Note Debridement Note Wound debrided: Left knee wound nonhealing Type of Debridement: Excisional debridement Anesthesia Used: 5% Lidocaine Gel Depth: Down to and including healthy tissue and in the subcutaneous layer Percentage of wound debrided: 100 Instrument Used: 3mm curette Tissue Removed: Serous and fibrin Severity: Fat Layer Exposed Amount of bleeding with debridement: Mild Bleeding Controlled with: Compression and gauze Patient tolerated procedure: Patient tolerated procedure well Post-Debridement Measurements and Additional Note: Post-Debridement Measurements/Treatment - Nurse 1 - General Ulcer Assessment Start: 12/23/24 14:10 Freq: Status: Active Protocol: GINA.JAMI Activity Type Activity Date Activity User E-sign Co-sign Detail Recorded Client Recorded Date Recorded By Document 12/23/24 14:11 [id number] 12/23/24 14:17 Document 12/31/24 09:42 [facility] [id number] 12/31/24 09:46 [facility] 12/23/24 12/31/24 14:11 09:42 - Today's Visit Information Type of service Follow-up Visit Follow-up Visit (Physician/SEWING SUPERVISOR (Physician/SEWING SUPERVISOR ) ) Arrival Mode Ambulatory,Cane Ambulatory Transfer Assistance None Accompanied by Patient Identification Verified (Name & Yes Yes ) Patient Requires Transmission-Based No Precautions Safety Precautions NA Height and Weight Body Mass Index (BMI) 34.1 34.1 BMI Classification Obese Obese Vital Signs Temperature (97.8 F-99.1 F) 97.7 F L 97.5 F L Temperature Source Temporal Temporal Pulse Rate (60-100) 61 76 Pulse Location Monitor Monitor Respiratory Rate (12-18) 18 16 Respiratory rate source Observation Observation Oxygen Delivery Method Room Air Room Air Blood Pressure (90/60-120/80) 122/63 H 154/73 H Blood Pressure Mean (mm Hg) 82 100 Source Monitor Monitor Position Semi-Fowlers Sitting Blood Pressure Location Left Arm Left Arm History Since Last Visit- (Skip if this is Patient's initial visit) Have you changed medications since your No No last visit? Any new allergies or adverse reactions No No Had a fall/change in ADL's that may No No increase risk of falls Signs or symptoms of abuse and/or No No neglect since last visit Have you been in the hospital since your No No last visit? Has dressing in place as prescribed Yes Yes Has compression in place as prescribed Yes N/A Has offloadiing in place as prescribed N/A N/A Experienced any changes in pain level or No No management Left Footwear Regular Shoe Regular Shoe Right Footwear Regular Shoe Regular Shoe Pain Scale: 0-10 Numeric Is Patient Pain Free? Yes Yes WC - Nurse 1 - General Ulcer Measurement Start: 12/23/24 14:10 Freq: Status: Active Protocol: Activity Type Activity Date Activity User E-sign Co-sign Detail Recorded Client Recorded Date Recorded By Document 12/23/24 14:11 [id number] 12/23/24 14:17 Document 12/31/24 09:42 [facility] [id number] 12/31/24 09:46 [facility] 12/23/24 12/31/24 14:11 09:42 Wound Center Nurse 1 #1,.L knee -Combined with other wound No -Current Size (cm) - Length 0.1 0.1 -Current Size (cm) - Width 0.1 0.1 -Current Size (cm) - Depth 0 0.1 -Total Square Cm 0.01 0.01 -Date of Last Picture (Recall this 12/23/24 12/31/24 field) -Photo Taken Yes -Epithelialization Large 67-100% Large 67-100% -Tunneling No -Undermining/Tunneling No -Circular Undermining No -Exudate Amt None Present Small -Exudate Type Serosanguineous -Wound Margin Distinct, Distinct, Outline Outline Attached Attached -Granulation Amt None Present (0 %) -Slough/Fibrin Yes -Necrosis Amt Large (67-100%) Large (67-100%) -Necrotic Tissue Type Adherent Slough Eschar -Texture (Anali-wound Skin Appearance) Assessed Assessed -Moisture (Anali-wound Skin Appearance) Assessed Assessed -Color (Anali-wound Skin Appearance) Assessed Assessed -Temperature (Anali-wound Skin No Abnormality No Abnormality Appearance) (Pt Warm) (Pt Warm) -Tenderness on Palpation (Anali-wound No No Skin Appearance) -Ulcer Cleansing Rinsed/ Rinsed/ Irrigated with Irrigated with Saline Saline -Foul Odor after Cleansing No No -Anesthetic Used 5% Lidocaine 5% Lidocaine Gel Gel -Wound Comment(s) SCABBED WC - Nurse 2 - General Ulcer CM Notes Start: 12/23/24 14:10 Freq: Status: Active Protocol: Activity Type Activity Date Activity User E-sign Co-sign Detail Recorded Client Recorded Date Recorded By Document 12/23/24 14:53 DS [id number] 12/23/24 14:57 DS Document 12/31/24 09:56 BM [id number] 12/31/24 10:03 BM 12/23/24 12/31/24 14:53 09:56 Wound Center Nurse 2 #1,.L knee -Time 14:54 09:56 -Correct Patient Yes Yes -Correct Side, Site, Position Yes Yes -Correct Procedure Yes Yes -Procedure Performed Yes Yes -Type of Procedure Debridement Debridement -Clinical Debridement Subcutaneous Subcutaneous -Tissue Removed Subcutaneous Subcutaneous -Post Debridement (cm) - Length 0.1 0.3 -Post Debridement (cm) - Width 0.2 0.3 -Post Debridement (cm) - Depth 0.1 0.3 -Total Square (Post) (cm) 0.02 0.09 -Area of Debridement (cm) - Length 0.1 0.3 -Area of Debridement (cm) - Width 0.2 0.3 -Total Square (Area) (cm) 0.02 0.09 -Tunneling No No -Undermining/Tunneling No No -Circular Undermining No No -Wound/Ulcer Outcome Not Healed Not Healed -Ulcer Cleansing Rinsed/ Irrigated with Saline -Foul Odor after Cleansing No -Bioengineered Tissue No -Bleeding Controlled with Pressure Pressure -Treatment Response Procedure Procedure Tolerated Well Tolerated Well -Debridement - Subq, 1st 20sq cm Yes Yes Pain Scale: 0-10 Numeric Is Patient Pain Free? Yes Yes - Nurse 3 - General Ulcer D/C NN Start: 12/23/24 14:10 Freq: Status: Active Protocol: Activity Type Activity Date Activity User E-sign Co-sign Detail Recorded Client Recorded Date Recorded By Document 12/23/24 15:25 RB [id number] 12/23/24 15:26 RB Document 12/31/24 10:08 MO [id number] 12/31/24 10:17 MO 12/23/24 12/31/24 15:25 10:08 Wound Care Center Nurse 3 #1,.L knee -Ulcer Cleansing Rinsed/ Irrigated with Saline -Primary Dressing Applied Promogran -Other Dressing HYDROGEL -Primary Dressing Covered/Secured with Dry Gauze,Dry Dry Gauze, Gauze & Roll Secured with Gauze,Secured Tape with Tape -Promogran 1 left knee -Compression Wrap Randy Wrap -Other RANDY Treatment Response Procedure Tolerated Well Pain Scale: 0-10 Numeric Is Patient Pain Free? Yes Yes - Visit Discharge Discharge Condition Stable Stable Ambulatory Status Ambulatory,Cane Ambulatory Transportation Private Auto Private Auto Medication Reconcilliation completed & No No provided to patient/care provider Clinical Summary of Care Provided Yes Yes Assessment/Plan Assessment/Plan (1) Dehiscence of incision: CODE(S): T81.31XA - Disruption of external operation (surgical) wound, not elsewhere classified, initial encounter QUALIFIERS: Encounter type: subsequent encounter Qualified Code(s): T81.31XD - Disruption of external operation (surgical) wound, not elsewhere classified, subsequent encounter PLAN: Wash left leg with antibacterial soap and water and pack in the pinhole Promogran cover with gauze dressing and Randy wrap to left knee area for support. Also patient should wear like knee-high knee socks that are Some compression for her leg for some swelling. Follow-up next week with Dr. Esquivel (2) Diabetes: CODE(S): E11.9 - Type 2 diabetes mellitus without complications QUALIFIERS: Diabetes mellitus type: type 2 Diabetes mellitus terminal supervisor insulin use: with terminal supervisor use Diabetes mellitus complication status: without complication Qualified Code(s): E11.9 - Type 2 diabetes mellitus without complications; Z79.4 - technician terminal and repeater (current) use of insulin
--- NOTE | 2025-01-01 10:48 | WC ---
PHOTO 12/31/24 LEFT KNEE
[2025-01-07 13:49] VITALS: BP 149/66; PULSE 65; RESP 16; BMI 34.1
--- NOTE | 2025-01-08 09:55 | WC ---
PHOTO 01/07/25 LEFT KNEE
--- NOTE | 2025-01-08 14:44 | HP.PCM_ITS ---
History of Present Illness Date of Service: 01/07/25 Chief Complaint: Dehiscent, necrotic surgical wound of the left knee History of Wound: This is a 74-year-old female with a history of left total knee replacement many years ago, which has required several revisions. The most recent revision was performed on June 19, 2024, at the [facility]. This was the fourth left knee revision. Prior revisions required flap reconstruction, and the Plastic Surgery service was involved in the patient's most recent surgery. Postoperatively, the patient was placed on oral doxycycline, which is expected to continue for 3 months. The patient's left lower extremity was locked in extension for 2 weeks. She is now weightbearing on the involved limb. She was admitted to the Transitional Care Unit at [facility] for several weeks postoperatively on June 27, 2024. 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 The patient developed a surgical wound dehiscence and marjorie necrosis and gangrene at the site of her incision. A wound VAC was used initially at the surgical site, but the patient had been using Xeroform more recently. The patient suffers from multiple pre-existing medical conditions, listed herein. She does not smoke. She is using Papa as a nutritional supplement. Her BMI is 34.2. 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 Dehiscence of incision History of revision of total replacement of left knee joint Wears glasses Alcohol use History of steroid therapy Bladder disease Neuropathy Back pain Dietary restriction History of pain when walking Pain Myasthenia gravis Ambulates with cane Rheumatoid arthritis Low iron History of DVT (deep vein thrombosis) Hyperlipemia Difficulty swallowing History of hiatal hernia Gastric reflux Non-smoker Shortness of breath on exertion Chronic cough PONV (postoperative nausea and vomiting) Leg cramps History of edema History of stress test Hypertension Thyroid disease Cataracts, bilateral History of UTI Arthritis Home Medications ?Medication ?Instructions ?Recorded ?Last Taken ?Type folic acid 1 mg tablet 1 mg PO DAILY supplement 06/06/22 History atorvastatin 10 mg tablet 5 mg PO .QOD Cholesterol 06/26/24 18:45 History cholecalciferol (vitamin D3) 50 50 mcg PO DAILY supple ment 09/06/21 06/27/24 History mcg (2,000 unit) capsule ascorbic acid (vitamin C) 500 mg 500 mg PO DAILY suppl ement 02/06/22 06/27/24 History tablet (Vitamin C) dapagliflozin propanediol 5 mg 10 mg PO DAILY blood michaels gar 05/25/22 06/06/22 History tablet (Farxiga) levothyroxine 125 mcg tablet 100 mcg PO DAILY thyroid 05/25/22 06/27/24 History pregabalin 75 mg capsule (Lyrica) 100 mg PO TID pain 0 05/25/22 06/06/22 History hydrochlorothiazide 12.5 mg tablet 12.5 mg PO DAILY Bl ood pressure 06/07/22 Unknown History vibegron 75 mg tablet (Gemtesa) 75 mg PO DAILY Overact cassidy bladder 12/04/22 Unknown History metformin 500 mg tablet,extended 1,000 mg PO BID Diabe freda 06/27/24 06/27/24 05:30 History release 24 hr polysaccharide iron complex 150 mg 65 mg PO QODAY Supp lement 06/27/24 Unknown History iron capsule (Ferrex) losartan 100 mg tablet 100 mg PO DAILY bp 30 days # 30 tabs 07/15/24 Unknown Rx oxycodone 5 mg tablet 5 - 10 mg (1 - 2 x 5 mg) PO Q4H 07/15/24 Unknown Rx PRN PRN Pain Score 4-10 7 days #84 tabs potassium chloride 20 mEq 20 meq PO DAILYCM supplement 30 07/15/24 Unknown Rx tablet,extended release(part/cryst) days #30 tabs arginine 7 gram-glutam 7 1 packet PO DAILY supplement 09/24/24 Unknown History gram-CaHMB 1.5 oxby-sfwug-vr-min oral pwd pkt (Papa (with collagen)) cephalexin 500 mg capsule 500 mg PO Q6H 7 days #28 cap s 09/26/24 Unknown Rx ciprofloxacin HCl 500 mg tablet 500 mg PO BID #14 tabs 09/29/24 Unknown Rx (Cipro) ciprofloxacin HCl 500 mg tablet 500 mg PO Q12H #14 tab s 12/06/24 Unknown Rx pyridostigmine bromide 60 mg tablet See Rx Instruction s .Route 12/18/24 Unknown Rx .COMPLEX #180 tabs Allergy/AdvReac Type Severity Reaction Status Date / Time latex Allergy Severe Other Verified 12/18/24 14:41 shellfish derived Allergy Severe PASSED Verified 12/18/24 14:41 OUT, DIARRHEA adhesive Allergy Mild Rash Verified 12/18/24 14:41 levofloxacin AdvReac Intermediate WEAK, Verified 12/18/24 14:41 NAUSEA povidone AdvReac Mild Hives Verified 12/18/24 14:41 Surgical History (Updated 01/08/25 @ 14:[address] Anthony Esquivel MD) Status post total left knee replacement History of bilateral cataract extraction History of colonoscopy S/P insertion of spinal cord stimulator History of partial thyroidectomy History of appendectomy History of left knee surgery History of hysterectomy History of cholecystectomy Social History household members: spouse Smoking Status: Never smoker Electronic Cigarette Use: not used second hand exposure: No alcohol intake: current alcohol intake frequency: a few times a month Alcohol type: wine substance use type: does not use Vital Signs Vital Signs Vital Signs: Weight Weight: 180 lb 13.313 oz Body Mass Index (BMI) 34.1 Physical Exam Const alert, oriented x3, no apparent distress, no limitations and healthy appearing Constitutional Narrative: Patient's BMI is 34.2. General Appearance: cooperative, comfortable, well kempt and well developed Orientation / Consciousness: awake, oriented to person, oriented to place and oriented to time Exam Limitations: no limitations HEENT normocephalic and head/scalp atraumatic Head and Scalp: normal to inspection, normocephalic and atraumatic Face and Sinus: normal facial exam Nose: external nose normal External Ear: external ears normal Eyes EOMs intact bilaterally General Eye: normal appearance of both eyes Neck full ROM General: normal visual inspection Resp normal respiratory effort, normal air movement, no retractions and no use of accessory muscles Effort and Inspection: able to speak in complete sentences Skin Wounds: wounds noted Wound Narrative: The patient's left total knee replacement incision is healed and well- approximated. However, a small, punctate opening is noted to the right of the vertical incision, from with the patient indicates there has been intermittent drainage yellowish fluid. Attempts to manually express purulent fluid from the site during the patient's appointment today were unsuccessful. The external opening is quite small, only several millimeters in dimension. The 3 mm sterile curette could easily be inserted, and was used to perform an excisional debridement. But for the patient's account of a small amount of purulent drainage since her last appointment, there are no other signs of marjorie infection. There is no evidence of cellulitis or fluctuance. Wound dimensions are documented elsewhere. Neuro oriented x3, CN's II-XII intact bilaterally, moves all extremities, no focal motor deficits and no sensory deficits noted Sensorium / Orientation: awake, alert, oriented to person, oriented to place and oriented to time Speech: speech normal Psych Appearance: grossly normal Speech: normal speech Thought Content: normal thought content Judgement: judgement good Debridement Note Debridement Note Wound debrided: Chronic, nonhealing left knee surgical wound Laterality: Left Type of Debridement: Excisional debridement Anesthesia Used: 5% Lidocaine Gel Depth: Down to and including healthy tissue and in the subcutaneous layer Percentage of wound debrided: 100 Instrument Used: 3mm curette Tissue Removed: Bioburden and devitalized tissue Severity: Fat Layer Exposed Amount of bleeding with debridement: Mild Bleeding Controlled with: Compression and gauze Patient tolerated procedure: Patient tolerated procedure well Post-Debridement Measurements and Additional Note: Post-Debridement Measurements/Treatment - Nurse 1 - General Ulcer Assessment Start: 12/23/24 14:10 Freq: Status: Active Protocol: KENNY Activity Type Activity Date Activity User E-sign Co-sign Detail Recorded Client Recorded Date Recorded By Document 12/23/24 14:11 [id number] 12/23/24 14:17 Document 12/31/24 09:42 [facility] [id number] 12/31/24 09:46 [facility] Document 01/07/25 13:49 [facility] [id number] 01/07/25 13:54 [facility] 12/23/24 12/31/24 01/07/25 14:11 09:42 13:49 - Today's Visit Information Type of service Follow-up Visit Follow-up Visit Follow-up Visit (Physician/TOOL GRINDER SET UP OPERATOR GEAR (Physician/TOOL GRINDER SET UP OPERATOR GEAR (Physician/TOOL GRINDER SET UP OPERATOR GEAR ) ) ) Arrival Mode Ambulatory,Cane Ambulatory Ambulatory,Cane Transfer Assistance None None Accompanied by Patient Identification Verified (Name & Yes Yes Yes ) Patient Requires Transmission-Based No Precautions Safety Precautions NA Height and Weight Body Mass Index (BMI) 34.1 34.1 34.1 BMI Classification Obese Obese Obese Vital Signs Temperature (97.8 F-99.1 F) 97.7 F L 97.5 F L Temperature Source Temporal Temporal Pulse Rate (60-100) 61 76 65 Pulse Location Monitor Monitor Monitor Respiratory Rate (12-18) 18 16 16 Respiratory rate source Observation Observation Observation Oxygen Delivery Method Room Air Room Air Room Air Blood Pressure (90/60-120/80) 122/63 H 154/73 H 149/66 H Blood Pressure Mean 82 100 93 Source Monitor Monitor Monitor Position Semi-Fowlers Sitting Sitting Blood Pressure Location Left Arm Left Arm Left Arm History Since Last Visit- (Skip if this is Patient's initial visit) Have you changed medications since your No No No last visit? Any new allergies or adverse reactions No No No Had a fall/change in ADL's that may No No No increase risk of falls Signs or symptoms of abuse and/or No No No neglect since last visit Have you been in the hospital since your No No No last visit? Has dressing in place as prescribed Yes Yes Yes Has compression in place as prescribed Yes N/A Yes Has offloadiing in place as prescribed N/A N/A N/A Experienced any changes in pain level or No No No management Left Footwear Regular Shoe Regular Shoe Regular Shoe Right Footwear Regular Shoe Regular Shoe Regular Shoe Pain Scale: 0-10 Numeric Is Patient Pain Free? Yes Yes Yes WC - Nurse 1 - General Ulcer Measurement Start: 12/23/24 14:10 Freq: Status: Active Protocol: Activity Type Activity Date Activity User E-sign Co-sign Detail Recorded Client Recorded Date Recorded By Document 12/23/24 14:11 [id number] 12/23/24 14:17 KW Document 12/31/24 09:42 [facility] [id number] 12/31/24 09:46 [facility] Document 01/07/25 13:49 [facility] [id number] 01/07/25 13:54 [facility] 12/23/24 12/31/24 01/07/25 14:11 09:42 13:49 Wound Center Nurse 1 #1,.L knee -Combined with other wound No No -Current Size (cm) - Length 0.1 0.1 0.1 -Current Size (cm) - Width 0.1 0.1 0.1 -Current Size (cm) - Depth 0 0.1 0.1 -Total Square Cm 0.01 0.01 0.01 -Date of Last Picture (Recall this 12/23/24 12/31/24 01/07/25 field) -Photo Taken Yes Yes -Epithelialization Large 67-100% Large 67-100% -Tunneling No -Undermining/Tunneling No -Circular Undermining No -Exudate Amt None Present Small Medium -Exudate Type Serosanguineous Serosanguineous -Wound Margin Distinct, Distinct, Distinct, Outline Outline Outline Attached Attached Attached -Granulation Amt None Present (0 None Present (0 %) %) -Slough/Fibrin Yes Yes -Necrosis Amt Large (67-100%) Large (67-100%) Large (67-100%) -Necrotic Tissue Type Adherent Slough Eschar Eschar -Texture (Anali-wound Skin Appearance) Assessed Assessed Assessed -Moisture (Anali-wound Skin Appearance) Assessed Assessed Assessed -Color (Anali-wound Skin Appearance) Assessed Assessed Assessed -Temperature (Anali-wound Skin No Abnormality No Abnormality No Abnormality Appearance) (Pt Warm) (Pt Warm) (Pt Warm) -Tenderness on Palpation (Anali-wound No No No Skin Appearance) -Ulcer Cleansing Rinsed/ Rinsed/ Rinsed/ Irrigated with Irrigated with Irrigated with Saline Saline Saline -Foul Odor after Cleansing No No No -Anesthetic Used 5% Lidocaine 5% Lidocaine 5% Lidocaine Gel Gel Gel -Wound Comment(s) SCABBED wound is small and scabbed 100 %. still drains . did not probe . WC - Nurse 2 - General Ulcer CM Notes Start: 12/23/24 14:10 Freq: Status: Active Protocol: Activity Type Activity Date Activity User E-sign Co-sign Detail Recorded Client Recorded Date Recorded By Document 12/23/24 14:53 DS [id number] 12/23/24 14:57 DS Document 12/31/24 09:56 BMF [id number] 12/31/24 10:03 BMF Document 01/07/25 14:22 DS [id number] 01/07/25 14:29 DS 12/23/24 12/31/24 01/07/25 14:53 09:56 14:22 Wound Center Nurse 2 #1,.L knee -Time 14:54 09:56 14:20 -Correct Patient Yes Yes Yes -Correct Side, Site, Position Yes Yes Yes -Correct Procedure Yes Yes Yes -Procedure Performed Yes Yes Yes -Type of Procedure Debridement Debridement Debridement -Clinical Debridement Subcutaneous Subcutaneous Subcutaneous -Tissue Removed Subcutaneous Subcutaneous Subcutaneous -Post Debridement (cm) - Length 0.1 0.3 0.3 -Post Debridement (cm) - Width 0.2 0.3 0.3 -Post Debridement (cm) - Depth 0.1 0.3 0.3 -Total Square (Post) (cm) 0.02 0.09 0.09 -Area of Debridement (cm) - Length 0.1 0.3 0.3 -Area of Debridement (cm) - Width 0.2 0.3 0.3 -Total Square (Area) (cm) 0.02 0.09 0.09 -Tunneling No No No -Undermining/Tunneling No No Yes -Undermining/Tunneling Starts (O'clock 6 ) -Undermining/Tunneling Ends (O'clock) 9 -Maximum Distance (cm) 1.0 -Circular Undermining No No No -Wound/Ulcer Outcome Not Healed Not Healed Not Healed -Ulcer Cleansing Rinsed/ Rinsed/ Irrigated with Irrigated with Saline Saline -Foul Odor after Cleansing No No -Bioengineered Tissue No No -Bleeding Controlled with Pressure Pressure Pressure -Treatment Response Procedure Procedure Procedure Tolerated Well Tolerated Well Tolerated Well -Debridement - Subq, 1st 20sq cm Yes Yes Yes Pain Scale: 0-10 Numeric Is Patient Pain Free? Yes Yes Yes - Nurse 3 - General Ulcer D/C NN Start: 12/23/24 14:10 Freq: Status: Active Protocol: Activity Type Activity Date Activity User E-sign Co-sign Detail Recorded Client Recorded Date Recorded By Document 12/23/24 15:25 RB [id number] 12/23/24 15:26 RB Document 12/31/24 10:08 MT [id number] 12/31/24 10:17 MT Document 01/07/25 14:29 DS [id number] 01/07/25 14:30 DS Edit Result 01/07/25 14:29 DS (1) [id number] 01/07/25 14:32 DS (1) left knee - Compression Wrap Randy Wrap => 12/23/24 12/31/24 01/07/25 15:25 10:08 14:29 Wound Care Center Nurse 3 #1,.L knee -Ulcer Cleansing Rinsed/ Irrigated with Saline -Primary Dressing Applied Promogran Nugauze, Plain 1/4in -Other Dressing HYDROGEL -Primary Dressing Covered/Secured with Dry Gauze,Dry Dry Gauze, Dry Gauze, Gauze & Roll Secured with Secured with Gauze,Secured Tape Tape with Tape -Nugauze, Plain 1/4in 1 -Promogran 1 left knee -Compression Wrap Randy Wrap -Other RANDY Treatment Response Procedure Tolerated Well Pain Scale: 0-10 Numeric Is Patient Pain Free? Yes Yes Yes WC - Visit Discharge Discharge Condition Stable Stable Stable Ambulatory Status Ambulatory,Cane Ambulatory Ambulatory Transportation Private Auto Private Auto Private Auto Medication Reconcilliation completed & No No provided to patient/care provider Clinical Summary of Care Provided Yes Yes Charges/Coding Procedures Integumentary [id number]: [id number] [place] subq tissue 20 sq cm/< Assessment/Plan Assessment/Plan (1) Dehiscence of incision: CODE(S): T81.31XA - Disruption of external operation (surgical) wound, not elsewhere classified, initial encounter QUALIFIERS: Encounter type: subsequent encounter Qualified Code(s): T81.31XD - Disruption of external operation (surgical) wound, not elsewhere classified, subsequent encounter PLAN: Wash left leg with antibacterial soap and water and pack in the pinhole Promogran cover with gauze dressing and Randy wrap to left knee area for support. Also patient should wear like knee-high knee socks that are Some compression for her leg for some swelling. Follow-up next week with Dr. 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: with senior living use Diabetes mellitus complication status: without complication Qualified Code(s): E11.9 - Type 2 diabetes mellitus without complications; Z79.4 - retirement (current) use of insulin (4) Status post total left knee replacement: CODE(S): Z96.652 - Presence of left artificial knee joint (5) History of revision of total replacement of left knee joint: CODE(S): Z96.652 - Presence of left artificial knee joint (6) History of left knee surgery: CODE(S): Z98.890 - Other specified postprocedural states (7) History of bilateral cataract extraction: CODE(S): Z98.41 - Cataract extraction status, right eye; Z98.42 - Cataract extraction status, left eye (8) History of hiatal hernia: CODE(S): Z87.19 - Personal history of other diseases of the digestive system (9) History of cholecystectomy: CODE(S): Z90.49 - Acquired absence of other specified parts of digestive tract (10) History of hysterectomy: CODE(S): Z90.710 - Acquired absence of both cervix and uterus (11) History of appendectomy: CODE(S): Z90.49 - Acquired absence of other specified parts of digestive tract (12) Diabetic polyneuropathy: CODE(S): E11.42 - Type 2 diabetes mellitus with diabetic polyneuropathy (13) GERD (gastroesophageal reflux disease): CODE(S): K21.9 - Gastro-esophageal reflux disease without esophagitis (14) Iron deficiency anemia: CODE(S): D50.9 - Iron deficiency anemia, unspecified (15) Hyperlipemia: CODE(S): E78.5 - Hyperlipidemia, unspecified (16) Essential (primary) hypertension: CODE(S): I10 - Essential (primary) hypertension (17) Status post total right knee replacement: CODE(S): Z96.651 - Presence of right artificial knee joint (18) Osteoarthritis: (19) History of DVT (deep vein thrombosis): CODE(S): Z86.718 - Personal history of other venous thrombosis and embolism (20) HTN (hypertension): CODE(S): I10 - Essential (primary) hypertension (21) Dyslipidemia: CODE(S): E78.5 - Hyperlipidemia, unspecified (22) Hypothyroidism: CODE(S): E03.9 - Hypothyroidism, unspecified (23) Ocular myasthenia gravis: CODE(S): G70.00 - Myasthenia gravis without (acute) exacerbation PLAN: Plan The patient is to continue with daily packing of the residual wound of the left knee using Promogran. Packing is to be performed on a daily basis. The patient has been instructed in the appropriate means of application. The patient is to continue with conservative measures which have been discussed relative to minimizing swelling in the left lower extremity. These measures include leg elevation, avoidance of idle standing and sitting, activity, and compression using Tubigrips, which are to be donned on a daily basis. The patient has been encouraged to optimize her nutritional intake. Optimization of her diabetes management has also been discussed. The patient is to return in 1 week for reevaluation. Total time: 25 minutes
[2025-01-14 13:35] VITALS: BP 163/46; PULSE 66; RESP 16; TEMP 36.4; BMI 34.1
--- NOTE | 2025-01-15 09:43 | WC ---
PHOTO 01/14/25 LEFT KNEE
--- NOTE | 2025-01-15 09:44 | WC ---
PHOTO 01/14/25
--- NOTE | 2025-01-15 17:13 | PCM.WC.HP ---
History of Present Illness Date of Service: 01/14/25 Chief Complaint: Dehiscent, necrotic surgical wound of the left knee History of Wound: This is a 74-year-old female with a history of left total knee replacement many years ago, which has required several revisions. The most recent revision was performed on June 19, 2024, at the [facility]. This was the fourth left knee revision. Prior revisions required flap reconstruction, and the Plastic Surgery service was involved in the patient's most recent surgery. Postoperatively, the patient was placed on oral doxycycline, which is expected to continue for 3 months. The patient's left lower extremity was locked in extension for 2 weeks. She is now weightbearing on the involved limb. She was admitted to the Transitional Care Unit at [facility] for several weeks postoperatively on June 27, 2024. She has returned to home, with pediatric dental assistant care from her . The patient developed a surgical wound dehiscence and marjorie necrosis and gangrene at the site of her incision. A wound VAC was used initially at the surgical site, but the patient had been using Xeroform more recently. The patient suffers from multiple pre-existing medical conditions, listed herein. She does not smoke. She is using Papa as a nutritional supplement. Her BMI is 34.2. 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 Dehiscence of incision History of revision of total replacement of left knee joint Wears glasses Alcohol use History of steroid therapy Bladder disease Neuropathy Back pain Dietary restriction History of pain when walking Pain Myasthenia gravis Ambulates with cane Rheumatoid arthritis Low iron History of DVT (deep vein thrombosis) Hyperlipemia Difficulty swallowing History of hiatal hernia Gastric reflux Non-smoker Shortness of breath on exertion Chronic cough PONV (postoperative nausea and vomiting) Leg cramps History of edema History of stress test Hypertension Thyroid disease Cataracts, bilateral History of UTI Arthritis Home Medications ?Medication ?Instructions ?Recorded ?Last Taken ?Type folic acid 1 mg tablet 1 mg PO DAILY supplement 10/13/13 06/06/22 History atorvastatin 10 mg tablet 5 mg PO .QOD Cholesterol 09/06/21 06/26/24 18:45 History cholecalciferol (vitamin D3) 50 50 mcg PO DAILY supplement 09/06/21 06/27/24 History mcg (2,000 unit) capsule ascorbic acid (vitamin C) 500 mg 500 mg PO DAILY supplement 02/06/22 06/27/24 History tablet (Vitamin C) dapagliflozin propanediol 5 mg 10 mg PO DAILY blood sugar 05/25/22 06/06/22 History tablet (Farxiga) levothyroxine 125 mcg tablet 100 mcg PO DAILY thyroid 05/25/22 06/27/24 History pregabalin 75 mg capsule (Lyrica) 100 mg PO TID pain 05/25/22 06/06/22 History hydrochlorothiazide 12.5 mg tablet 12.5 mg PO DAILY Blood pressure 06/07/22 Unknown History vibegron 75 mg tablet (Gemtesa) 75 mg PO DAILY Overactive bladder 12/04/22 Unknown History metformin 500 mg tablet,extended 1,000 mg PO BID Diabetes 06/27/24 06/27/24 05:30 History release 24 hr polysaccharide iron complex 150 mg 65 mg PO QODAY Supplement 06/27/24 Unknown History iron capsule (Ferrex) losartan 100 mg tablet 100 mg PO DAILY bp 30 days #30 tabs 07/15/24 Unknown Rx oxycodone 5 mg tablet 5 - 10 mg (1 - 2 x 5 mg) PO Q4H 07/15/24 Unknown Rx PRN PRN Pain Score 4-10 7 days #84 tabs potassium chloride 20 mEq 20 meq PO DAILYCM supplement 30 07/15/24 Unknown Rx tablet,extended release(part/cryst) days #30 tabs arginine 7 gram-glutam 7 1 packet PO DAILY supplement 09/24/24 Unknown History gram-CaHMB 1.5 [id number]-[id number]-zl-min oral pwd pkt (Papa (with collagen)) cephalexin 500 mg capsule 500 mg PO Q6H 7 days #28 caps 09/26/24 Unknown Rx ciprofloxacin HCl 500 mg tablet 500 mg PO BID #14 tabs 09/29/24 Unknown Rx (Cipro) ciprofloxacin HCl 500 mg tablet 500 mg PO Q12H #14 tabs 12/06/24 Unknown Rx pyridostigmine bromide 60 mg tablet See Rx Instructions .Route 12/18/24 Unknown Rx .COMPLEX #180 tabs Allergy/AdvReac Type Severity Reaction Status Date / Time latex Allergy Severe Other Verified 12/18/24 14:41 shellfish derived Allergy Severe PASSED Verified 12/18/24 14:41 OUT, DIARRHEA adhesive Allergy Mild Rash Verified 12/18/24 14:41 levofloxacin AdvReac Intermediate WEAK, Verified 12/18/24 14:41 NAUSEA povidone AdvReac Mild Hives Verified 12/18/24 14:41 Surgical History Status post total left knee replacement History of bilateral cataract extraction History of colonoscopy S/P insertion of spinal cord stimulator History of partial thyroidectomy History of appendectomy History of left knee surgery History of hysterectomy History of cholecystectomy Social History household members: spouse Smoking Status: Never smoker Electronic Cigarette Use: not used second hand exposure: No alcohol intake: current alcohol intake frequency: a few times a month Alcohol type: wine substance use type: does not use Vital Signs Vital Signs Vital Signs: Weight Weight: 180 lb 13.313 oz Body Mass Index (BMI) 34.1 Physical Exam Const alert, oriented x3, no apparent distress, no limitations and healthy appearing Constitutional Narrative: The patient's BMI is 34.2. General Appearance: cooperative, comfortable, well kempt and well developed Orientation / Consciousness: awake, oriented to person, oriented to place and oriented to time Exam Limitations: no limitations HEENT normocephalic and head/scalp atraumatic Head and Scalp: normal to inspection, normocephalic and atraumatic Face and Sinus: normal facial exam Nose: external nose normal External Ear: external ears normal Eyes EOMs intact bilaterally General Eye: normal appearance of both eyes Neck full ROM General: normal visual inspection Resp normal respiratory effort, normal air movement, no retractions and no use of accessory muscles Effort and Inspection: able to speak in complete sentences Skin Wounds: wounds noted Wound Narrative: The patient's left total knee replacement incision is healed and well-approximated. However, a small, punctate opening is noted to the right of the vertical incision, from with the patient indicates there has been intermittent drainage purulent yellowish fluid. Gentle manual pressure to the area resulted in the expression of a small amount of purulent drainage. Therefore, a swab culture was obtained for aerobic and anaerobic bacterial growth. Gentle probing of the opening revealed significant undermining in the inferior and medial directions. Approximately 12 mm of undermining were noted in the medial direction. Approximately 7 mm of undermining were noted in the inferior direction. No significant erythema was noted. No marjorie cellulitis or fluctuance were appreciated. Neuro oriented x3, CN's II-XII intact bilaterally, moves all extremities, no focal motor deficits and no sensory deficits noted Sensorium / Orientation: awake, alert, oriented to person, oriented to place and oriented to time Speech: speech normal Psych mental status grossly normal, cooperative, affect normal, speech normal and activity/motor behavior normal Appearance: grossly normal Speech: normal speech Thought Content: normal thought content Judgement: judgement good Debridement Note Debridement Note Wound debrided: Chronic, nonhealing left knee surgical wound Laterality: Left Type of Debridement: Excisional debridement Anesthesia Used: 5% Lidocaine Gel and - (Lidocaine 1% with epinephrine per injection) Depth: to muscle Percentage of wound debrided: 100 Instrument Used: 3mm curette, #15 blade and Forceps Tissue Removed: Bioburden and devitalized tissue; dermis, epidermis, & subcutaneous tissue Severity: Fat Layer Exposed Amount of bleeding with debridement: Mild Bleeding Controlled with: Compression and gauze Patient tolerated procedure: Patient tolerated procedure well Debridement Free Text: Physical examination revealed the presence of a small draining sinus medial to the patient's healed, vertical left knee incision. Gentle probing of the site revealed significant undermining in the inferior and medial directions. Therefore, the decision was made to perform an unroofing procedure, to expose the underlying cavity, with purpose of creating beveled wound margins which were facilitate healing by secondary intention. The skin was prepped with alcohol 1% with epinephrine was then injected subcutaneously into the area to provide an adequate level of local anesthesia. A 15 scalpel blade was then used to create a cruciate incision at the site of the punctate opening. Once the cruciate incision had been created, the flaps were then excised, creating an open wound at the site, and exposing the underlying cavity. During the exploration of the wound, within its depths, a suture was encountered. The suture appeared to be a braided Ethibond suture, and effort was made to remove as much as possible. Once the suture has been removed, a photograph was taken for documentation purposes. Unfortunately, it is suspected that a portion of the suture remains within the depth of the patient's wound, and local anesthesia in the outpatient clinical setting was insufficient to provide enough patient comfort to retrieve the remainder of the suture within the depths of the wound. In other words, to have extended the exploration to a deeper level would have resulted in significant pain and discomfort to the patient. The level at which the removed suture was embedded appeared to be fascia/muscle. There was no evidence of exposed bone or hardware. The patient tolerated the procedure reasonably well. Bleeding was minimal. At the completion of the procedure, the wound was packed with moistened 1/4 inch Nu Gauze, a dry gauze dressing was applied, and the area was wrapped with Randy. Post-Debridement Measurements and Additional Note: Post-Debridement Measurements/Treatment - Nurse 1 - General Ulcer Assessment Start: 12/23/24 14:10 Freq: Status: Active Protocol: KENNY Activity Type Activity Date Activity User E-sign Co-sign Detail Recorded Client Recorded Date Recorded By Document 12/23/24 14:11 KW [id number] 12/23/24 14:17 KW Document 12/31/24 09:42 BM [id number] 12/31/24 09:46 [facility] Document 01/07/25 13:49 [facility] [id number] 01/07/25 13:54 [facility] Document 01/14/25 13:35 BM [id number] 01/14/25 13:41 BMF 12/23/24 12/31/24 01/07/25 14:11 09:42 13:49 - Today's Visit Information Type of service Follow-up Visit Follow-up Visit Follow-up Visit (Physician/INSURANCE CASE MANAGER (Physician/INSURANCE CASE MANAGER (Physician/INSURANCE CASE MANAGER ) ) ) Arrival Mode Ambulatory,Cane Ambulatory Ambulatory,Cane Transfer Assistance None None Accompanied by Patient Identification Verified (Name & Yes Yes Yes ) Patient Requires Transmission-Based No Precautions Safety Precautions NA Height and Weight Body Mass Index (BMI) 34.1 34.1 34.1 BMI Classification Obese Obese Obese Vital Signs Temperature (97.8 F-99.1 F) 97.7 F L 97.5 F L Temperature Source Temporal Temporal Pulse Rate (60-100) 61 76 65 Pulse Location Monitor Monitor Monitor Respiratory Rate (12-18) 18 16 16 Respiratory rate source Observation Observation Observation Oxygen Delivery Method Room Air Room Air Room Air Blood Pressure (90/60-120/80) 122/63 H 154/73 H 149/66 H Blood Pressure Mean 82 100 93 Source Monitor Monitor Monitor Position Semi-Fowlers Sitting Sitting Blood Pressure Location Left Arm Left Arm Left Arm History Since Last Visit- (Skip if this is Patient's initial visit) Have you changed medications since your No No No last visit? Any new allergies or adverse reactions No No No Had a fall/change in ADL's that may No No No increase risk of falls Signs or symptoms of abuse and/or No No No neglect since last visit Have you been in the hospital since your No No No last visit? Has dressing in place as prescribed Yes Yes Yes Has compression in place as prescribed Yes N/A Yes Has offloadiing in place as prescribed N/A N/A N/A Experienced any changes in pain level or No No No management Left Footwear Regular Shoe Regular Shoe Regular Shoe Right Footwear Regular Shoe Regular Shoe Regular Shoe Pain Scale: 0-10 Numeric Is Patient Pain Free? Yes Yes Yes 01/14/25 13:35 WC - Today's Visit Information Type of service Follow-up Visit (Physician/INSURANCE CASE MANAGER ) Arrival Mode Ambulatory,Cane Transfer Assistance Accompanied by Patient Identification Verified (Name & Yes ) Patient Requires Transmission-Based No Precautions Safety Precautions Height and Weight Body Mass Index (BMI) 34.1 BMI Classification Obese Vital Signs Temperature (97.8 F-99.1 F) 97.5 F L Temperature Source Temporal Pulse Rate (60-100) 66 Pulse Location Monitor Respiratory Rate (12-18) 16 Respiratory rate source Observation Oxygen Delivery Method Room Air Blood Pressure (90/60-120/80) 163/46 H Blood Pressure Mean 85 Source Monitor Position Sitting Blood Pressure Location Left Arm History Since Last Visit- (Skip if this is Patient's initial visit) Have you changed medications since your No last visit? Any new allergies or adverse reactions No Had a fall/change in ADL's that may No increase risk of falls Signs or symptoms of abuse and/or No neglect since last visit Have you been in the hospital since your No last visit? Has dressing in place as prescribed Yes Has compression in place as prescribed Yes Has offloadiing in place as prescribed N/A Experienced any changes in pain level or No management Left Footwear Regular Shoe Right Footwear Regular Shoe Pain Scale: 0-10 Numeric Is Patient Pain Free? Yes - Nurse 1 - General Ulcer Measurement Start: 12/23/24 14:10 Freq: Status: Active Protocol: Activity Type Activity Date Activity User E-sign Co-sign Detail Recorded Client Recorded Date Recorded By Document 12/23/24 14:11 KW [id number] 12/23/24 14:17 KW Document 12/31/24 09:42 BM [id number] 12/31/24 09:46 BM Document 01/07/25 13:49 BMF [id number] 01/07/25 13:54 BM Document 01/14/25 13:35 BM [id number] 01/14/25 13:41 [facility] 12/23/24 12/31/24 01/07/25 14:11 09:42 13:49 Wound Center Nurse 1 #1,.L knee -Combined with other wound No No -Current Size (cm) - Length 0.1 0.1 0.1 -Current Size (cm) - Width 0.1 0.1 0.1 -Current Size (cm) - Depth 0 0.1 0.1 -Total Square Cm 0.01 0.01 0.01 -Date of Last Picture (Recall this 12/23/24 12/31/24 01/07/25 field) -Photo Taken Yes Yes -Epithelialization Large 67-100% Large 67-100% -Tunneling No -Undermining/Tunneling No -Circular Undermining No -Exudate Amt None Present Small Medium -Exudate Type Serosanguineous Serosanguineous -Wound Margin Distinct, Distinct, Distinct, Outline Outline Outline Attached Attached Attached -Granulation Amt None Present (0 None Present (0 %) %) -Slough/Fibrin Yes Yes -Necrosis Amt Large (67-100%) Large (67-100%) Large (67-100%) -Necrotic Tissue Type Adherent Slough Eschar Eschar -Texture (Anali-wound Skin Appearance) Assessed Assessed Assessed -Moisture (Anali-wound Skin Appearance) Assessed Assessed Assessed -Color (Anali-wound Skin Appearance) Assessed Assessed Assessed -Temperature (Anali-wound Skin No Abnormality No Abnormality No Abnormality Appearance) (Pt Warm) (Pt Warm) (Pt Warm) -Tenderness on Palpation (Anali-wound No No No Skin Appearance) -Ulcer Cleansing Rinsed/ Rinsed/ Rinsed/ Irrigated with Irrigated with Irrigated with Saline Saline Saline -Foul Odor after Cleansing No No No -Anesthetic Used 5% Lidocaine 5% Lidocaine 5% Lidocaine Gel Gel Gel -Wound Comment(s) SCABBED wound is small and scabbed 100 %. still drains . did not probe . 01/14/25 13:35 Wound Center Nurse 1 #1,.L knee -Combined with other wound No -Current Size (cm) - Length 0.1 -Current Size (cm) - Width 0.1 -Current Size (cm) - Depth 0.1 -Total Square Cm 0.01 -Date of Last Picture (Recall this 01/14/25 field) -Photo Taken Yes -Epithelialization Large 67-100% -Tunneling No -Undermining/Tunneling No -Circular Undermining No -Exudate Amt Small -Exudate Type Purulent -Wound Margin -Granulation Amt -Slough/Fibrin -Necrosis Amt -Necrotic Tissue Type -Texture (Anali-wound Skin Appearance) Assessed -Moisture (Anali-wound Skin Appearance) Assessed,Dry/ Scaly -Color (Anali-wound Skin Appearance) Assessed -Temperature (Anali-wound Skin No Abnormality Appearance) (Pt Warm) -Tenderness on Palpation (Anali-wound No Skin Appearance) -Ulcer Cleansing Rinsed/ Irrigated with Saline -Foul Odor after Cleansing No -Anesthetic Used 5% Lidocaine Gel -Wound Comment(s) small amt of pus expressed w / palpation to periwound WC - Nurse 2 - General Ulcer CM Notes Start: 12/23/24 14:10 Freq: Status: Active Protocol: Activity Type Activity Date Activity User E-sign Co-sign Detail Recorded Client Recorded Date Recorded By Document 12/23/24 14:53 DS [id number] 12/23/24 14:57 DS Document 12/31/24 09:56 [facility] [id number] 12/31/24 10:03 [facility] Document 01/07/25 14:22 DS [id number] 01/07/25 14:29 DS Document 01/14/25 13:57 GM [id number] 01/14/25 14:07 GM Edit Result 01/14/25 13:57 GM (1) [id number] 01/14/25 14:16 GM (1) #1,.L knee - Post Debridement (cm) - Length => 1.5 - Post Debridement (cm) - Width => 1.1 - Post Debridement (cm) - Depth => 0.4 - Total Square (Post) (cm) => 1.65 - Area of Debridement (cm) - Length => 1.5 - Area of Debridement (cm) - Width => 1.1 - Total Square (Area) (cm) => 1.65 - Undermining/Tunneling No => Yes - Undermining/Tunneling Starts (O'clock) => 6 - Undermining/Tunneling Ends (O'clock) => 9 - Maximum Distance (cm) => 1.2 12/23/24 12/31/24 01/07/25 14:53 09:56 14:22 Wound Center Nurse 2 #1,.L knee -Time 14:54 09:56 14:20 -Correct Patient Yes Yes Yes -Correct Side, Site, Position Yes Yes Yes -Correct Procedure Yes Yes Yes -Procedure Performed Yes Yes Yes -Type of Procedure Debridement Debridement Debridement -Clinical Debridement Subcutaneous Subcutaneous Subcutaneous -Tissue Removed Subcutaneous Subcutaneous Subcutaneous -Post Debridement (cm) - Length 0.1 0.3 0.3 -Post Debridement (cm) - Width 0.2 0.3 0.3 -Post Debridement (cm) - Depth 0.1 0.3 0.3 -Total Square (Post) (cm) 0.02 0.09 0.09 -Area of Debridement (cm) - Length 0.1 0.3 0.3 -Area of Debridement (cm) - Width 0.2 0.3 0.3 -Total Square (Area) (cm) 0.02 0.09 0.09 -Tunneling No No No -Undermining/Tunneling No No Yes -Undermining/Tunneling Starts (O'clock 6 ) -Undermining/Tunneling Ends (O'clock) 9 -Maximum Distance (cm) 1.0 -Circular Undermining No No No -Wound/Ulcer Outcome Not Healed Not Healed Not Healed -Ulcer Cleansing Rinsed/ Rinsed/ Irrigated with Irrigated with Saline Saline -Foul Odor after Cleansing No No -Bioengineered Tissue No No -Bleeding Controlled with Pressure Pressure Pressure -Treatment Response Procedure Procedure Procedure Tolerated Well Tolerated Well Tolerated Well -Debridement - Subq, 1st 20sq cm Yes Yes Yes Pain Scale: 0-10 Numeric Is Patient Pain Free? Yes Yes Yes L knee -Description -Intensity -Duration (hours) -Pain Behavior -Pain Aggravating Factors -Alleviating Factors/Interventions -Effectiveness of Alleviating Factor/ Intervention -Comments 01/14/25 13:57 Wound Center Nurse 2 #1,.L knee -Time 13:57 -Correct Patient Yes -Correct Side, Site, Position Yes -Correct Procedure Yes -Procedure Performed Yes -Type of Procedure Debridement -Clinical Debridement Subcutaneous -Tissue Removed Subcutaneous -Post Debridement (cm) - Length 1.5 -Post Debridement (cm) - Width 1.1 -Post Debridement (cm) - Depth 0.4 -Total Square (Post) (cm) 1.65 -Area of Debridement (cm) - Length 1.5 -Area of Debridement (cm) - Width 1.1 -Total Square (Area) (cm) 1.65 -Tunneling No -Undermining/Tunneling Yes -Undermining/Tunneling Starts (O'clock 6 ) -Undermining/Tunneling Ends (O'clock) 9 -Maximum Distance (cm) 1.2 -Circular Undermining No -Wound/Ulcer Outcome Not Healed -Ulcer Cleansing Rinsed/ Irrigated with Saline -Foul Odor after Cleansing No -Bioengineered Tissue No -Bleeding Controlled with Pressure -Treatment Response Procedure Tolerated Well -Debridement - Subq, 1st 20sq cm Yes Pain Scale: 0-10 Numeric Is Patient Pain Free? No L knee -Description Sharp -Intensity 10 -Duration (hours) Acute -Pain Behavior Moaning -Pain Aggravating Factors Debridement -Alleviating Factors/Interventions Medication -Effectiveness of Alleviating Factor/ Moderately Intervention effective -Comments Lidocaine used WC - Nurse 3 - General Ulcer D/C NN Start: 12/23/24 14:10 Freq: Status: Active Protocol: Activity Type Activity Date Activity User E-sign Co-sign Detail Recorded Client Recorded Date Recorded By Document 12/23/24 15:25 RB [id number] 12/23/24 15:26 RB Document 12/31/24 10:08 MT [id number] 12/31/24 10:17 MT Document 01/07/25 14:29 DS [id number] 01/07/25 14:30 DS Edit Result 01/07/25 14:29 DS (1) [id number] 01/07/25 14:32 DS Document 01/14/25 14:24 KW [id number] 01/14/25 14:26 KW (1) left knee - Compression Wrap Randy Wrap => 12/23/24 12/31/24 01/07/25 15:25 10:08 14:29 Wound Care Center Nurse 3 #1,.L knee -Ulcer Cleansing Rinsed/ Irrigated with Saline -Primary Dressing Applied Promogran Nugauze, Plain 1/4in -Other Dressing [id number] -Primary Dressing Covered/Secured with Dry Gauze,Dry Dry Gauze, Dry Gauze, Gauze & Roll Secured with Secured with Gauze,Secured Tape Tape with Tape -Nugauze, Plain 1/4in 1 -Promogran 1 left knee -Compression Wrap Randy Wrap -Other RANDY Treatment Response Procedure Tolerated Well Pain Scale: 0-10 Numeric Is Patient Pain Free? Yes Yes Yes WC - Visit Discharge Discharge Condition Stable Stable Stable Ambulatory Status Ambulatory,Cane Ambulatory Ambulatory Transportation Private Auto Private Auto Private Auto Accompanied by Medication Reconcilliation completed & No No provided to patient/care provider Clinical Summary of Care Provided Yes Yes 01/14/25 14:24 Wound Care Center Nurse 3 #1,.L knee -Ulcer Cleansing -Primary Dressing Applied -Other Dressing packed with moistened 1/4 nugauze -Primary Dressing Covered/Secured with Dry Gauze & Roll Gauze, Secured with Tape -Nugauze, Plain 1/4in -Promogran left knee -Compression Wrap Randy Wrap -Other Treatment Response Pain Scale: 0-10 Numeric Is Patient Pain Free? Yes WC - Visit Discharge Discharge Condition Stable Ambulatory Status Ambulatory,Cane Transportation Private Auto Accompanied by Medication Reconcilliation completed & No provided to patient/care provider Clinical Summary of Care Provided Yes Lab / Micro Data Micro: Microbiology 01/14/25 13:53 Wound - Knee Gram Stain - Final 01/14/25 13:53 Wound - Knee Wound Culture - Preliminary No growth-Final to follow 01/14/25 13:53 Wound - Knee Anaerobic Culture - Preliminary No growth in 48 hours. Charges/Coding Procedures Integumentary [id number]: [id number] [place] musc/fascia 20 sq cm/< Assessment/Plan Assessment/Plan (1) Dehiscence of incision: CODE(S): T81.31XA - Disruption of external operation (surgical) wound, not elsewhere classified, initial encounter QUALIFIERS: Encounter type: subsequent encounter Qualified Code(s): T81.31XD - Disruption of external operation (surgical) wound, not elsewhere classified, subsequent encounter (2) Non-pressure chronic ulcer of left thigh with fat layer exposed: CODE(S): L97.122 - Non-pressure chronic ulcer of left thigh with fat layer exposed (3) Diabetes: CODE(S): E11.9 - Type 2 diabetes mellitus without complications QUALIFIERS: Diabetes mellitus type: type 2 Diabetes mellitus watermaster insulin use: with watermaster use Diabetes mellitus complication status: without complication Qualified Code(s): E11.9 - Type 2 diabetes mellitus without complications; 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 (4) Status post total left knee replacement: CODE(S): Z96.652 - Presence of left artificial knee joint (5) History of revision of total replacement of left knee joint: CODE(S): Z96.652 - Presence of left artificial knee joint (6) History of left knee surgery: CODE(S): Z98.890 - Other specified postprocedural states (7) History of bilateral cataract extraction: CODE(S): Z98.41 - Cataract extraction status, right eye; Z98.42 - Cataract extraction status, left eye (8) History of hiatal hernia: CODE(S): Z87.19 - Personal history of other diseases of the digestive system (9) History of cholecystectomy: CODE(S): Z90.49 - Acquired absence of other specified parts of digestive tract (10) History of hysterectomy: CODE(S): Z90.710 - Acquired absence of both cervix and uterus (11) History of appendectomy: CODE(S): Z90.49 - Acquired absence of other specified parts of digestive tract (12) Diabetic polyneuropathy: CODE(S): E11.42 - Type 2 diabetes mellitus with diabetic polyneuropathy (13) GERD (gastroesophageal reflux disease): CODE(S): K21.9 - Gastro-esophageal reflux disease without esophagitis (14) Iron deficiency anemia: CODE(S): D50.9 - Iron deficiency anemia, unspecified (15) Hyperlipemia: CODE(S): E78.5 - Hyperlipidemia, unspecified (16) Essential (primary) hypertension: CODE(S): I10 - Essential (primary) hypertension (17) Status post total right knee replacement: CODE(S): Z96.651 - Presence of right artificial knee joint (18) Osteoarthritis: (19) History of DVT (deep vein thrombosis): CODE(S): Z86.718 - Personal history of other venous thrombosis and embolism (20) HTN (hypertension): CODE(S): I10 - Essential (primary) hypertension (21) Dyslipidemia: CODE(S): E78.5 - Hyperlipidemia, unspecified (22) Hypothyroidism: CODE(S): E03.9 - Hypothyroidism, unspecified (23) Ocular myasthenia gravis: CODE(S): G70.00 - Myasthenia gravis without (acute) exacerbation PLAN: Plan This is a 74-year-old female who underwent the fourth revision of a left total knee replacement on June 19, 2024. She developed gangrene, necrosis, and dehiscence at the surgical site. As result, the patient presented for definitive evaluation and management with respect to her surgical wound. At the time of presentation, there was a large amount of necrotic and nonviable tissue at the site of the patient's surgical wound. Over a period of several months, using various conservative treatment measures, including the wound VAC, the patient's surgical wound nearly healed. In recent weeks, however, the patient has developed a draining sinus tract medial to her vertical knee incision. It has been draining purulent material. A culture has been sent for aerobic and anaerobic bacterial culture today. In addition, significant undermining was noted, with an underlying cavity. Therefore, using 1% lidocaine local anesthetic with epinephrine, the wound was unroofed and wound margins were beveled. The procedure extended down through all layers of the dermis and subcutaneous tissue, down to the fascial/muscle layer. During the course of the exploration, a retained suture was encountered, as much of which could be removed in the outpatient clinical setting. It appeared to be a braided, nonabsorbable, Ethibond suture. Therefore, it is likely that the patient's draining sinus may have been due to a stitch abscess. Culture results will be awaited. The patient has been encouraged to optimize her nutritional intake, as well as her diabetes management. She has been encouraged to continue taking protein nutritional drinks on a daily basis. She has been encouraged to elevate her left lower extremity to prevent and minimize swelling. Elevation is to be to heart level, during both daytime and nighttime hours. Avoidance of prolonged idle sitting has been encouraged. Activity as tolerated has been encouraged. Tubigrip's will be continued for compression purposes. The patient has indicated that she underwent an x-ray of her left knee on December 11, 2024, at the office of her orthopedic surgeon, Dr. Rob Enciso. We are to request a copy of the x-ray report. The patient is to return in 1 week for reevaluation. Total time: 30 minutes
[2025-01-21 13:45] VITALS: BP 145/64; PULSE 68; RESP 18; TEMP 36.4; BMI 34.1
--- NOTE | 2025-01-22 08:15 | WC ---
PHOTO 01/21/25 LEFT KNEE
--- NOTE | 2025-01-22 08:17 | WC ---
PHOTO 01/21/25 LEFT KNEE
--- NOTE | 2025-01-23 13:19 | HP.PCM_ITS ---
History of Present Illness Date of Service: 01/21/25 Chief Complaint: Dehiscent, necrotic surgical wound of the left knee History of Wound: This is a 74-year-old female with a history of left total knee replacement many years ago, which has required several revisions. The most recent revision was performed on June 19, 2024, at the [facility]. This was the fourth left knee revision. Prior revisions required flap reconstruction, and the Plastic Surgery service was involved in the patient's most recent surgery. Postoperatively, the patient was placed on oral doxycycline, which is expected to continue for 3 months. The patient's left lower extremity was locked in extension for 2 weeks. She is now weightbearing on the involved limb. She was admitted to the Transitional Care Unit at [facility] for several weeks postoperatively on June 27, 2024. She has returned to home, with assistant professor of theater care from her . The patient developed a surgical wound dehiscence and marjorie necrosis and gangrene at the site of her incision. A wound VAC was used initially at the surgical site, but the patient had been using Xeroform more recently. The patient suffers from multiple pre-existing medical conditions, listed herein. She does not smoke. She is using Papa as a nutritional supplement. Her BMI is 34.2. 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 Dehiscence of incision History of revision of total replacement of left knee joint Wears glasses Alcohol use History of steroid therapy Bladder disease Neuropathy Back pain Dietary restriction History of pain when walking Pain Myasthenia gravis Ambulates with cane Rheumatoid arthritis Low iron History of DVT (deep vein thrombosis) Hyperlipemia Difficulty swallowing History of hiatal hernia Gastric reflux Non-smoker Shortness of breath on exertion Chronic cough PONV (postoperative nausea and vomiting) Leg cramps History of edema History of stress test Hypertension Thyroid disease Cataracts, bilateral History of UTI Arthritis Home Medications ?Medication ?Instructions ?Recorded ?Last Taken ?Type folic acid 1 mg tablet 1 mg PO DAILY supplement 06/06/22 History atorvastatin 10 mg tablet 5 mg PO .QOD Cholesterol 06/26/24 18:45 History cholecalciferol (vitamin D3) 50 50 mcg PO DAILY supple ment 09/06/21 06/27/24 History mcg (2,000 unit) capsule ascorbic acid (vitamin C) 500 mg 500 mg PO DAILY suppl ement 02/06/22 06/27/24 History tablet (Vitamin C) dapagliflozin propanediol 5 mg 10 mg PO DAILY blood michaels gar 05/25/22 06/06/22 History tablet (Farxiga) levothyroxine 125 mcg tablet 100 mcg PO DAILY thyroid 05/25/22 06/27/24 History pregabalin 75 mg capsule (Lyrica) 100 mg PO TID pain 0 05/25/22 06/06/22 History hydrochlorothiazide 12.5 mg tablet 12.5 mg PO DAILY Bl ood pressure 06/07/22 Unknown History vibegron 75 mg tablet (Gemtesa) 75 mg PO DAILY Overact cassidy bladder 12/04/22 Unknown History metformin 500 mg tablet,extended 1,000 mg PO BID Diabe freda 06/27/24 06/27/24 05:30 History release 24 hr polysaccharide iron complex 150 mg 65 mg PO QODAY Supp lement 06/27/24 Unknown History iron capsule (Ferrex) losartan 100 mg tablet 100 mg PO DAILY bp 30 days # 30 tabs 07/15/24 Unknown Rx oxycodone 5 mg tablet 5 - 10 mg (1 - 2 x 5 mg) PO Q4H 07/15/24 Unknown Rx PRN PRN Pain Score 4-10 7 days #84 tabs potassium chloride 20 mEq 20 meq PO DAILYCM supplement 30 07/15/24 Unknown Rx tablet,extended release(part/cryst) days #30 tabs arginine 7 gram-glutam 7 1 packet PO DAILY supplement 09/24/24 Unknown History gram-CaHMB 1.5 thze-lnqhg-pt-min oral pwd pkt (Papa (with collagen)) cephalexin 500 mg capsule 500 mg PO Q6H 7 days #28 cap s 09/26/24 Unknown Rx ciprofloxacin HCl 500 mg tablet 500 mg PO BID #14 tabs 09/29/24 Unknown Rx (Cipro) ciprofloxacin HCl 500 mg tablet 500 mg PO Q12H #14 tab s 12/06/24 Unknown Rx pyridostigmine bromide 60 mg tablet See Rx Instruction s .Route 12/18/24 Unknown Rx .COMPLEX #180 tabs ciprofloxacin HCl 500 mg tablet 500 mg PO BID #30 tabs 01/20/25 Unknown Rx Allergy/AdvReac Type Severity Reaction Status Date / Time latex Allergy Severe Other Verified 12/18/24 14:41 shellfish derived Allergy Severe PASSED Verified 12/18/24 14:41 OUT, DIARRHEA adhesive Allergy Mild Rash Verified 12/18/24 14:41 levofloxacin AdvReac Intermediate WEAK, Verified 12/18/24 14:41 NAUSEA povidone AdvReac Mild Hives Verified 12/18/24 14:41 Surgical History Status post total left knee replacement History of bilateral cataract extraction History of colonoscopy S/P insertion of spinal cord stimulator History of partial thyroidectomy History of appendectomy History of left knee surgery History of hysterectomy History of cholecystectomy Social History household members: spouse Smoking Status: Never smoker Electronic Cigarette Use: not used second hand exposure: No alcohol intake: current alcohol intake frequency: a few times a month Alcohol type: wine substance use type: does not use Vital Signs Vital Signs Vital Signs: Weight Weight: 180 lb 13.313 oz Body Mass Index (BMI) 34.1 Physical Exam Const alert, oriented x3, no apparent distress, no limitations and healthy appearing Constitutional Narrative: The patient's BMI is 34.2. General Appearance: cooperative, comfortable, well kempt and well developed Orientation / Consciousness: awake, oriented to person, oriented to place and oriented to time Exam Limitations: no limitations HEENT normocephalic and head/scalp atraumatic Head and Scalp: normal to inspection, normocephalic and atraumatic Face and Sinus: normal facial exam Nose: external nose normal External Ear: external ears normal Eyes EOMs intact bilaterally General Eye: normal appearance of both eyes Neck full ROM General: normal visual inspection Resp normal respiratory effort, normal air movement, no retractions and no use of accessory muscles Effort and Inspection: able to speak in complete sentences Skin Wounds: wounds noted Wound Narrative: The patient's left total knee replacement incision is healed and well- approximated. However, an open wound remains medial to the healed vertical knee incision. Since the patient's last visit, additional suture has extruded, and is noted external to the patient's wound, though remaining attached. The appearance of the suture is that of a nonabsorbable, braided Ethibond. Photos have been obtained, to be incorporated into the medical record. Wound margins are generally well beveled, following an unroofing procedure performed at the bedside last week. There is no sign of infection or cellulitis. There is no drainage or odor. Dimensions are documented elsewhere. No significant anali- wound erythema is noted. No marjorie cellulitis or fluctuance are appreciated. Hair: normal Neuro oriented x3, CN's II-XII intact bilaterally, moves all extremities, no focal motor deficits and no sensory deficits noted Sensorium / Orientation: awake, alert, oriented to person, oriented to place and oriented to time Speech: speech normal Psych mental status grossly normal, cooperative, affect normal, speech normal and activity/motor behavior normal Appearance: grossly normal Speech: normal speech Thought Content: normal thought content Judgement: judgement good Debridement Note Debridement Note Wound debrided: Chronic, nonhealing left knee surgical wound Laterality: Left Type of Debridement: Excisional debridement Anesthesia Used: 5% Lidocaine Gel and Cetacaine Depth: in the subcutaneous layer Percentage of wound debrided: 100 Instrument Used: 5mm curette, Forceps and - (Scissors) Tissue Removed: Bioburden and devitalized tissue Severity: Fat Layer Exposed Amount of bleeding with debridement: Mild Bleeding Controlled with: Compression and gauze Patient tolerated procedure: Patient tolerated procedure well Debridement Free Text: Physical examination revealed the wound to be generally clean and healthy. However, an additional portion of the retained nonabsorbable suture was noted to be extruded. By appearances, it appears to be a braided Ethibond suture. Using a forceps and scissors, effort was made to remove the suture in its entirety. However, patient experienced significant discomfort as attempts were made to remove the suture at its base. Traction on the suture was not sufficient to remove it. Therefore, it was placed on gentle tension, and a scissors was used to cut the suture as far down to its base as possible. It is suspected that a small portion of the suture remains, although attempts were made to remove all portions. Post-Debridement Measurements and Additional Note: Post-Debridement Measurements/Treatment GINA - Nurse 1 - General Ulcer Assessment Start: 12/23/24 14:10 Freq: Status: Active Protocol: KENNY Activity Type Activity Date Activity User E-sign Co-sign Detail Recorded Client Recorded Date Recorded By Document 12/23/24 14:11 KW [id number] 12/23/24 14:17 KW Document 12/31/24 09:42 [facility] [id number] 12/31/24 09:46 BM Document 01/07/25 13:49 [facility] [id number] 01/07/25 13:54 BM Document 01/14/25 13:35 BM [id number] 01/14/25 13:41 F 12/23/24 12/31/24 01/07/25 14:11 09:42 13:49 WC - Today's Visit Information Type of service Follow-up Visit Follow-up Visit Follow-up Visit (Physician/OFFICE ENGINEER (Physician/OFFICE ENGINEER (Physician/OFFICE ENGINEER ) ) ) Arrival Mode Ambulatory,Cane Ambulatory Ambulatory,Cane Transfer Assistance None None Accompanied by Patient Identification Verified (Name & Yes Yes Yes ) Patient Requires Transmission-Based No Precautions Safety Precautions NA Height and Weight Body Mass Index (BMI) 34.1 34.1 34.1 BMI Classification Obese Obese Obese Vital Signs Temperature (97.8 F-99.1 F) 97.7 F L 97.5 F L Temperature Source Temporal Temporal Pulse Rate (60-100) 61 76 65 Pulse Location Monitor Monitor Monitor Respiratory Rate (12-18) 18 16 16 Respiratory rate source Observation Observation Observation Oxygen Delivery Method Room Air Room Air Room Air Blood Pressure (90/60-120/80) 122/63 H 154/73 H 149/66 H Blood Pressure Mean 82 100 93 Source Monitor Monitor Monitor Position Semi-Fowlers Sitting Sitting Blood Pressure Location Left Arm Left Arm Left Arm History Since Last Visit- (Skip if this is Patient's initial visit) Have you changed medications since your No No No last visit? Any new allergies or adverse reactions No No No Had a fall/change in ADL's that may No No No increase risk of falls Signs or symptoms of abuse and/or No No No neglect since last visit Have you been in the hospital since your No No No last visit? Has dressing in place as prescribed Yes Yes Yes Has compression in place as prescribed Yes N/A Yes Has offloadiing in place as prescribed N/A N/A N/A Experienced any changes in pain level or No No No management Left Footwear Regular Shoe Regular Shoe Regular Shoe Right Footwear Regular Shoe Regular Shoe Regular Shoe Pain Scale: 0-10 Numeric Is Patient Pain Free? Yes Yes Yes 01/14/25 13:35 - Today's Visit Information Type of service Follow-up Visit (Physician/OFFICE ENGINEER ) Arrival Mode Ambulatory,Cane Transfer Assistance Accompanied by Patient Identification Verified (Name & Yes ) Patient Requires Transmission-Based No Precautions Safety Precautions Height and Weight Body Mass Index (BMI) 34.1 BMI Classification Obese Vital Signs Temperature (97.8 F-99.1 F) 97.5 F L Temperature Source Temporal Pulse Rate (60-100) 66 Pulse Location Monitor Respiratory Rate (12-18) 16 Respiratory rate source Observation Oxygen Delivery Method Room Air Blood Pressure (90/60-120/80) 163/46 H Blood Pressure Mean 85 Source Monitor Position Sitting Blood Pressure Location Left Arm History Since Last Visit- (Skip if this is Patient's initial visit) Have you changed medications since your No last visit? Any new allergies or adverse reactions No Had a fall/change in ADL's that may No increase risk of falls Signs or symptoms of abuse and/or No neglect since last visit Have you been in the hospital since your No last visit? Has dressing in place as prescribed Yes Has compression in place as prescribed Yes Has offloadiing in place as prescribed N/A Experienced any changes in pain level or No management Left Footwear Regular Shoe Right Footwear Regular Shoe Pain Scale: 0-10 Numeric Is Patient Pain Free? Yes - Nurse 1 - General Ulcer Measurement Start: 12/23/24 14:10 Freq: Status: Active Protocol: Activity Type Activity Date Activity User E-sign Co-sign Detail Recorded Client Recorded Date Recorded By Document 12/23/24 14:11 [id number] 12/23/24 14:17 KW Document 12/31/24 09:42 BM [id number] 12/31/24 09:46 BM Document 01/07/25 13:49 [facility] [id number] 01/07/25 13:54 BM Document 01/14/25 13:35 BM [id number] 01/14/25 13:41 BMF 12/23/24 12/31/24 01/07/25 14:11 09:42 13:49 Wound Center Nurse 1 #1,.L knee -Combined with other wound No No -Current Size (cm) - Length 0.1 0.1 0.1 -Current Size (cm) - Width 0.1 0.1 0.1 -Current Size (cm) - Depth 0 0.1 0.1 -Total Square Cm 0.01 0.01 0.01 -Date of Last Picture (Recall this 12/23/24 12/31/24 01/07/25 field) -Photo Taken Yes Yes -Epithelialization Large 67-100% Large 67-100% -Tunneling No -Undermining/Tunneling No -Circular Undermining No -Exudate Amt None Present Small Medium -Exudate Type Serosanguineous Serosanguineous -Wound Margin Distinct, Distinct, Distinct, Outline Outline Outline Attached Attached Attached -Granulation Amt None Present (0 None Present (0 %) %) -Slough/Fibrin Yes Yes -Necrosis Amt Large (67-100%) Large (67-100%) Large (67-100%) -Necrotic Tissue Type Adherent Slough Eschar Eschar -Texture (Anali-wound Skin Appearance) Assessed Assessed Assessed -Moisture (Anali-wound Skin Appearance) Assessed Assessed Assessed -Color (Anali-wound Skin Appearance) Assessed Assessed Assessed -Temperature (Anali-wound Skin No Abnormality No Abnormality No Abnormality Appearance) (Pt Warm) (Pt Warm) (Pt Warm) -Tenderness on Palpation (Anali-wound No No No Skin Appearance) -Ulcer Cleansing Rinsed/ Rinsed/ Rinsed/ Irrigated with Irrigated with Irrigated with Saline Saline Saline -Foul Odor after Cleansing No No No -Anesthetic Used 5% Lidocaine 5% Lidocaine 5% Lidocaine Gel Gel Gel -Wound Comment(s) SCABBED wound is small and scabbed 100 %. still drains . did not probe . 01/14/25 13:35 Wound Center Nurse 1 #1,.L knee -Combined with other wound No -Current Size (cm) - Length 0.1 -Current Size (cm) - Width 0.1 -Current Size (cm) - Depth 0.1 -Total Square Cm 0.01 -Date of Last Picture (Recall this 01/14/25 field) -Photo Taken Yes -Epithelialization Large 67-100% -Tunneling No -Undermining/Tunneling No -Circular Undermining No -Exudate Amt Small -Exudate Type Purulent -Wound Margin -Granulation Amt -Slough/Fibrin -Necrosis Amt -Necrotic Tissue Type -Texture (Anali-wound Skin Appearance) Assessed -Moisture (Anali-wound Skin Appearance) Assessed,Dry/ Scaly -Color (Anali-wound Skin Appearance) Assessed -Temperature (Anali-wound Skin No Abnormality Appearance) (Pt Warm) -Tenderness on Palpation (Anali-wound No Skin Appearance) -Ulcer Cleansing Rinsed/ Irrigated with Saline -Foul Odor after Cleansing No -Anesthetic Used 5% Lidocaine Gel -Wound Comment(s) small amt of pus expressed w / palpation to periwound WC - Nurse 2 - General Ulcer CM Notes Start: 12/23/24 14:10 Freq: Status: Active Protocol: Activity Type Activity Date Activity User E-sign Co-sign Detail Recorded Client Recorded Date Recorded By Document 12/23/24 14:53 DS [id number] 12/23/24 14:57 DS Document 12/31/24 09:56 BMF [id number] 12/31/24 10:03 BMF Document 01/07/25 14:22 DS [id number] 01/07/25 14:29 DS Document 01/14/25 13:57 GM [id number] 01/14/25 14:07 GM Edit Result 01/14/25 13:57 GM (1) [id number] 01/14/25 14:16 GM (1) #1,.L knee - Post Debridement (cm) - Length => 1.5 - Post Debridement (cm) - Width => 1.1 - Post Debridement (cm) - Depth => 0.4 - Total Square (Post) (cm) => 1.65 - Area of Debridement (cm) - Length => 1.5 - Area of Debridement (cm) - Width => 1.1 - Total Square (Area) (cm) => 1.65 - Undermining/Tunneling No => Yes - Undermining/Tunneling Starts (O'clock) => 6 - Undermining/Tunneling Ends (O'clock) => 9 - Maximum Distance (cm) => 1.2 12/23/24 12/31/24 01/07/25 14:53 09:56 14:22 Wound Center Nurse 2 #1,.L knee -Time 14:54 09:56 14:20 -Correct Patient Yes Yes Yes -Correct Side, Site, Position Yes Yes Yes -Correct Procedure Yes Yes Yes -Procedure Performed Yes Yes Yes -Type of Procedure Debridement Debridement Debridement -Clinical Debridement Subcutaneous Subcutaneous Subcutaneous -Tissue Removed Subcutaneous Subcutaneous Subcutaneous -Post Debridement (cm) - Length 0.1 0.3 0.3 -Post Debridement (cm) - Width 0.2 0.3 0.3 -Post Debridement (cm) - Depth 0.1 0.3 0.3 -Total Square (Post) (cm) 0.02 0.09 0.09 -Area of Debridement (cm) - Length 0.1 0.3 0.3 -Area of Debridement (cm) - Width 0.2 0.3 0.3 -Total Square (Area) (cm) 0.02 0.09 0.09 -Tunneling No No No -Undermining/Tunneling No No Yes -Undermining/Tunneling Starts (O'clock 6 ) -Undermining/Tunneling Ends (O'clock) 9 -Maximum Distance (cm) 1.0 -Circular Undermining No No No -Wound/Ulcer Outcome Not Healed Not Healed Not Healed -Ulcer Cleansing Rinsed/ Rinsed/ Irrigated with Irrigated with Saline Saline -Foul Odor after Cleansing No No -Bioengineered Tissue No No -Bleeding Controlled with Pressure Pressure Pressure -Treatment Response Procedure Procedure Procedure Tolerated Well Tolerated Well Tolerated Well -Debridement - Subq, 1st 20sq cm Yes Yes Yes Pain Scale: 0-10 Numeric Is Patient Pain Free? Yes Yes Yes L knee -Description -Intensity -Duration (hours) -Pain Behavior -Pain Aggravating Factors -Alleviating Factors/Interventions -Effectiveness of Alleviating Factor/ Intervention -Comments 01/14/25 13:57 Wound Center Nurse 2 #1,.L knee -Time 13:57 -Correct Patient Yes -Correct Side, Site, Position Yes -Correct Procedure Yes -Procedure Performed Yes -Type of Procedure Debridement -Clinical Debridement Subcutaneous -Tissue Removed Subcutaneous -Post Debridement (cm) - Length 1.5 -Post Debridement (cm) - Width 1.1 -Post Debridement (cm) - Depth 0.4 -Total Square (Post) (cm) 1.65 -Area of Debridement (cm) - Length 1.5 -Area of Debridement (cm) - Width 1.1 -Total Square (Area) (cm) 1.65 -Tunneling No -Undermining/Tunneling Yes -Undermining/Tunneling Starts (O'clock 6 ) -Undermining/Tunneling Ends (O'clock) 9 -Maximum Distance (cm) 1.2 -Circular Undermining No -Wound/Ulcer Outcome Not Healed -Ulcer Cleansing Rinsed/ Irrigated with Saline -Foul Odor after Cleansing No -Bioengineered Tissue No -Bleeding Controlled with Pressure -Treatment Response Procedure Tolerated Well -Debridement - Subq, 1st 20sq cm Yes Pain Scale: 0-10 Numeric Is Patient Pain Free? No L knee -Description Sharp -Intensity 10 -Duration (hours) Acute -Pain Behavior Moaning -Pain Aggravating Factors Debridement -Alleviating Factors/Interventions Medication -Effectiveness of Alleviating Factor/ Moderately Intervention effective -Comments Lidocaine used - Nurse 3 - General Ulcer D/C NN Start: 12/23/24 14:10 Freq: Status: Active Protocol: Activity Type Activity Date Activity User E-sign Co-sign Detail Recorded Client Recorded Date Recorded By Document 12/23/24 15:25 RB [id number] 12/23/24 15:26 RB Document 12/31/24 10:08 MT [id number] 12/31/24 10:17 MT Document 01/07/25 14:29 DS [id number] 01/07/25 14:30 DS Edit Result 01/07/25 14:29 DS (1) [id number] 01/07/25 14:32 DS Document 01/14/25 14:24 KW [id number] 01/14/25 14:26 KW (1) left knee - Compression Wrap Randy Wrap => 12/23/24 12/31/24 01/07/25 15:25 10:08 14:29 Wound Care Center Nurse 3 #1,.L knee -Ulcer Cleansing Rinsed/ Irrigated with Saline -Primary Dressing Applied Promogran Nugauze, Plain 1/4in -Other Dressing [id number] -Primary Dressing Covered/Secured with Dry Gauze,Dry Dry Gauze, Dry Gauze, Gauze & Roll Secured with Secured with Gauze,Secured Tape Tape with Tape -Nugauze, Plain 1/4in 1 -Promogran 1 left knee -Compression Wrap Randy Wrap -Other RANDY Treatment Response Procedure Tolerated Well Pain Scale: 0-10 Numeric Is Patient Pain Free? Yes Yes Yes - Visit Discharge Discharge Condition Stable Stable Stable Ambulatory Status Ambulatory,Cane Ambulatory Ambulatory Transportation Private Auto Private Auto Private Auto Accompanied by Medication Reconcilliation completed & No No provided to patient/care provider Clinical Summary of Care Provided Yes Yes 01/14/25 14:24 Wound Care Center Nurse 3 #1,.L knee -Ulcer Cleansing -Primary Dressing Applied -Other Dressing packed with moistened 1/4 nugauze -Primary Dressing Covered/Secured with Dry Gauze & Roll Gauze, Secured with Tape -Nugauze, Plain 1/4in -Promogran left knee -Compression Wrap Randy Wrap -Other Treatment Response Pain Scale: 0-10 Numeric Is Patient Pain Free? Yes WC - Visit Discharge Discharge Condition Stable Ambulatory Status Ambulatory,Cane Transportation Private Auto Accompanied by Medication Reconcilliation completed & No provided to patient/care provider Clinical Summary of Care Provided Yes Charges/Coding Multi Select Codes Visit Charges Office Visit/Consults: 09074 OV L3 Est 20min Integumentary Integumentary CPT Codes: 99152 [place] subq tissue 20 sq cm/< Assessment/Plan Assessment/Plan (1) Dehiscence of incision: CODE(S): T81.31XA - Disruption of external operation (surgical) wound, not elsewhere classified, initial encounter QUALIFIERS: Encounter type: subsequent encounter Qualified Code(s): T81.31XD - Disruption of external operation (surgical) wound, not elsewhere classified, subsequent encounter (2) Non-pressure chronic ulcer of left thigh with fat layer exposed: CODE(S): L97.122 - Non-pressure chronic ulcer of left thigh with fat layer exposed (3) Diabetes: CODE(S): E11.9 - Type 2 diabetes mellitus without complications QUALIFIERS: Diabetes mellitus type: type 2 Diabetes mellitus mcfp insulin use: with exterminator helper termite use Diabetes mellitus complication status: without complication Qualified Code(s): E11.9 - Type 2 diabetes mellitus without complications; Z79.4 - senior living (current) use of insulin (4) Status post total left knee replacement: CODE(S): Z96.652 - Presence of left artificial knee joint (5) History of revision of total replacement of left knee joint: CODE(S): Z96.652 - Presence of left artificial knee joint (6) History of left knee surgery: CODE(S): Z98.890 - Other specified postprocedural states (7) History of bilateral cataract extraction: CODE(S): Z98.41 - Cataract extraction status, right eye; Z98.42 - Cataract extraction status, left eye (8) History of hiatal hernia: CODE(S): Z87.19 - Personal history of other diseases of the digestive system (9) History of cholecystectomy: CODE(S): Z90.49 - Acquired absence of other specified parts of digestive tract (10) History of hysterectomy: CODE(S): Z90.710 - Acquired absence of both cervix and uterus (11) History of appendectomy: CODE(S): Z90.49 - Acquired absence of other specified parts of digestive tract (12) Diabetic polyneuropathy: CODE(S): E11.42 - Type 2 diabetes mellitus with diabetic polyneuropathy (13) GERD (gastroesophageal reflux disease): CODE(S): K21.9 - Gastro-esophageal reflux disease without esophagitis (14) Iron deficiency anemia: CODE(S): D50.9 - Iron deficiency anemia, unspecified (15) Hyperlipemia: CODE(S): E78.5 - Hyperlipidemia, unspecified (16) Essential (primary) hypertension: CODE(S): I10 - Essential (primary) hypertension (17) Status post total right knee replacement: CODE(S): Z96.651 - Presence of right artificial knee joint (18) Osteoarthritis: (19) History of DVT (deep vein thrombosis): CODE(S): Z86.718 - Personal history of other venous thrombosis and embolism (20) HTN (hypertension): CODE(S): I10 - Essential (primary) hypertension (21) Dyslipidemia: CODE(S): E78.5 - Hyperlipidemia, unspecified (22) Hypothyroidism: CODE(S): E03.9 - Hypothyroidism, unspecified (23) Ocular myasthenia gravis: CODE(S): G70.00 - Myasthenia gravis without (acute) exacerbation PLAN: Plan This is a 74-year-old female who underwent the fourth revision of a left total knee replacement on June 19, 2024. She developed gangrene, necrosis, and dehiscence at the surgical site. As result, the patient presented for definitive evaluation and management with respect to her surgical wound. At the time of presentation, there was a large amount of necrotic and nonviable tissue at the site of the patient's surgical wound. Over a period of several months, using various conservative treatment measures, including the wound VAC, the patient's surgical wound nearly healed. In recent weeks, however, the patient developed a draining sinus tract medial to her vertical knee incision. It had been draining purulent material. A culture was obtained on January 14, 2025, the results of which were positive for Pseudomonas aeruginosa. The patient has been placed on Cipro 500 mg p.o. twice daily for a total of 2 weeks. This is in accordance with the sensitivity findings on her recent culture. Following an unroofing of an infected and undermined cavity adjacent to the patient's surgical incision, an open wound remains medial to the vertical incision. Wound margins are reasonably well beveled. The base of the wound is generally pink and healthy in appearance. There is no noted drainage, fluctuance, or cell ulitis. However, a portion of the retained nonabsorbable suture has extruded further, and as much of the suture as possible was excised today. However, it is suspected that a small portion of the suture may remain. Removal in the outpatient clinical setting has proven difficult due to patient discomfort and other factors. There is suspicion that the patient's residual wound may have resulted from a stitch abscess. The patient has been encouraged to optimize her nutritional intake, as well as her diabetes management. She has been encouraged to continue taking protein nutritional drinks on a daily basis. She has been encouraged to elevate her left lower extremity to prevent and minimize swelling. Elevation is to be to heart level, during both daytime and nighttime hours. Avoidance of prolonged idle sitting has been encouraged. Activity as tolerated has been encouraged. Tubigrip's will be continued for compression purposes. The patient has indicated that she underwent an x-ray of her left knee on December 11, 2024, at the office of her orthopedic surgeon, Dr. Rob Enciso. We have request a copy of the x-ray report, which has not yet been received. A second request will be submitted. Given that the patient has had recurrent cultures positive for Pseudomonas aeruginosa, there is question as to the source of these recurring infections. A stitch abscess may account for this finding, although concern exists as to possible infection of the prosthetic left knee hardware. Consideration may be given to an MRI of the left knee in the near future. The patient is to return in 1 week for reevaluation. Total time: 28 minutes
== END 2025-01-21 23:59 | disposition home or self-care (01) ==
LOC: WC 13:45
PROVIDERS: PCP Internal Medicine; Visit Provider Surgery
DX: E11.622 Type 2 diabetes mellitus with other skin ulcer (principal); E11.52 Type 2 diabetes mellitus with diabetic peripheral angiopathy with gangrene; L97.122 Non-pressure chronic ulcer of left thigh with fat layer exposed; G70.00 Myasthenia gravis without (acute) exacerbation; E11.42 Type 2 diabetes mellitus with diabetic polyneuropathy; Z79.4 Long term (current) use of insulin; D50.9 Iron deficiency anemia, unspecified; Z86.718 Personal history of other venous thrombosis and embolism; Z79.84 Long term (current) use of oral hypoglycemic drugs; M19.90 Unspecified osteoarthritis, unspecified site; K21.9 Gastro-esophageal reflux disease without esophagitis; Z96.653 Presence of artificial knee joint, bilateral; Z90.710 Acquired absence of both cervix and uterus; R53.81 Other malaise; Z79.891 Long term (current) use of opiate analgesic; I10 Essential (primary) hypertension; E78.5 Hyperlipidemia, unspecified; T81.31XD Disruption of external operation (surgical) wound, not elsewhere classified, subsequent encounter; T84.093D Other mechanical complication of internal left knee prosthesis, subsequent encounter; E03.9 Hypothyroidism, unspecified; Z87.19 Personal history of other diseases of the digestive system; Z96.652 Presence of left artificial knee joint; Z90.49 Acquired absence of other specified parts of digestive tract; Z98.41 Cataract extraction status, right eye
CPT/HCPCS: 11042; 87070; 87075; 87077; 87186; 87205

== ENCOUNTER → 2025-02-06 | Outpatient (CLI) | payer MEDICARE, SELFPAY ==
--- NOTE | 2025-02-06 12:54 | VDLE_ITS ---
Reason For Study Reason For Study: Swelling LLE RIGHT LEFT CFV is compressible, spontaneous, phasic, competent GSV is normal. and demonstrates normal augmentation. CFV is compressible, spontaneous, phasic, competent, Procedure and demonstrates normal augmentation. This is a venous duplex using B-mode, color flow and FV is compressible, spontaneous, phasic, competent spectral Doppler. and demonstrates normal augmentation. Exam performed in department. POP V is compressible, spontaneous, phasic, competent A preliminary report was called and/or faxed to and demonstrates normal augmentation. Zhen. T/P Trunk is compressible. PTV is compressible. LT PerV is compressible. Lymph node noted Lt Groin measuring 0.77cm x 2.93cm. VL/Venous Duplex US, Unilateral Interpretation Summary Deep veins of the left lower extremity are patent and compressible segmentally. There is no evidence of left lower extremity deep vein thrombosis. Valvular competence appears intact within the p roximal deep venous system on the left . The left great saphenous vein appears patent and compressible segmentally. The right common femoral vein is patent and compressible . An enlarged lymph node is noted in the left groin, measuring 0.7 7 cm x 2.93 cm. Clinical correlation is advised. Ordering Physician: Dann Fontaine Referring Physician: Cherelle Thompson Performed By: Mary Kay Lin, WALLYCS, RVT
== END | disposition home or self-care (01) ==
LOC: CVS 12:51
PROVIDERS: PCP Internal Medicine; Referring Provider Anesthesiology Pain Medicine; Visit Provider Anesthesiology Pain Medicine
DX: M79.89 Other specified soft tissue disorders (principal)
CPT/HCPCS: 93971

== ENCOUNTER 2025-02-18 13:45 | Outpatient (RCR) | payer MEDICARE, SELFPAY ==
[2025-01-22 00:36] VITALS: BP 145/64; PULSE 68; RESP 18; TEMP 36.4; BMI 34.1
[2025-01-28 13:37] VITALS: BP 148/70; PULSE 75; RESP 16; TEMP 36.3; BMI 34.1
--- NOTE | 2025-01-29 10:19 | WC ---
PHOTO 01/28/25 LEFT KNEE
--- NOTE | 2025-01-30 13:30 | PCM.WC.HP ---
History of Present Illness Date of Service: 01/28/25 Chief Complaint: Dehiscent, necrotic surgical wound of the left knee History of Wound: This is a 74-year-old female with a history of left total knee replacement many years ago, which has required several revisions. The most recent revision was performed on June 19, 2024, at the [facility]. This was the fourth left knee revision. Prior revisions required flap reconstruction, and the Plastic Surgery service was involved in the patient's most recent surgery. Postoperatively, the patient was placed on oral doxycycline, which is expected to continue for 3 months. The patient's left lower extremity was locked in extension for 2 weeks. She is now weightbearing on the involved limb. She was admitted to the Transitional Care Unit at [facility] for several weeks postoperatively on June 27, 2024. 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 The patient developed a surgical wound dehiscence and marjorie necrosis and gangrene at the site of her incision. A wound VAC was used initially at the surgical site, but the patient had been using Xeroform more recently. The patient suffers from multiple pre-existing medical conditions, listed herein. She does not smoke. She is using Papa as a nutritional supplement. Her BMI is 34.2. 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 Dehiscence of incision History of revision of total replacement of left knee joint Wears glasses Alcohol use History of steroid therapy Bladder disease Neuropathy Back pain Dietary restriction History of pain when walking Pain Myasthenia gravis Ambulates with cane Rheumatoid arthritis Low iron History of DVT (deep vein thrombosis) Hyperlipemia Difficulty swallowing History of hiatal hernia Gastric reflux Non-smoker Shortness of breath on exertion Chronic cough PONV (postoperative nausea and vomiting) Leg cramps History of edema History of stress test Hypertension Thyroid disease Cataracts, bilateral History of UTI Arthritis Home Medications ?Medication ?Instructions ?Recorded ?Last Taken ?Type folic acid 1 mg tablet 1 mg PO DAILY supplement 10/13/13 06/06/22 History atorvastatin 10 mg tablet 5 mg PO .QOD Cholesterol 09/06/21 06/26/24 18:45 History cholecalciferol (vitamin D3) 50 50 mcg PO DAILY supplement 09/06/21 06/27/24 History mcg (2,000 unit) capsule ascorbic acid (vitamin C) 500 mg 500 mg PO DAILY supplement 02/06/22 06/27/24 History tablet (Vitamin C) dapagliflozin propanediol 5 mg 10 mg PO DAILY blood sugar 05/25/22 06/06/22 History tablet (Farxiga) levothyroxine 125 mcg tablet 100 mcg PO DAILY thyroid 05/25/22 06/27/24 History pregabalin 75 mg capsule (Lyrica) 100 mg PO TID pain 05/25/22 06/06/22 History hydrochlorothiazide 12.5 mg tablet 12.5 mg PO DAILY Blood pressure 06/07/22 Unknown History vibegron 75 mg tablet (Gemtesa) 75 mg PO DAILY Overactive bladder 12/04/22 Unknown History metformin 500 mg tablet,extended 1,000 mg PO BID Diabetes 06/27/24 06/27/24 05:30 History release 24 hr polysaccharide iron complex 150 mg 65 mg PO QODAY Supplement 06/27/24 Unknown History iron capsule (Ferrex) losartan 100 mg tablet 100 mg PO DAILY bp 30 days #30 tabs 07/15/24 Unknown Rx oxycodone 5 mg tablet 5 - 10 mg (1 - 2 x 5 mg) PO Q4H 07/15/24 Unknown Rx PRN PRN Pain Score 4-10 7 days #84 tabs potassium chloride 20 mEq 20 meq PO DAILYCM supplement 30 07/15/24 Unknown Rx tablet,extended release(part/cryst) days #30 tabs arginine 7 gram-glutam 7 1 packet PO DAILY supplement 09/24/24 Unknown History gram-CaHMB 1.5 [id number] oral pwd pkt (Papa (with collagen)) cephalexin 500 mg capsule 500 mg PO Q6H 7 days #28 caps 09/26/24 Unknown Rx ciprofloxacin HCl 500 mg tablet 500 mg PO BID #14 tabs 09/29/24 Unknown Rx (Cipro) ciprofloxacin HCl 500 mg tablet 500 mg PO Q12H #14 tabs 12/06/24 Unknown Rx pyridostigmine bromide 60 mg tablet See Rx Instructions .Route 12/18/24 Unknown Rx .COMPLEX #180 tabs ciprofloxacin HCl 500 mg tablet 500 mg PO BID #30 tabs 01/20/25 Unknown Rx Allergy/AdvReac Type Severity Reaction Status Date / Time latex Allergy Severe Other Verified 12/18/24 14:41 shellfish derived Allergy Severe PASSED Verified 12/18/24 14:41 OUT, DIARRHEA adhesive Allergy Mild Rash Verified 12/18/24 14:41 levofloxacin AdvReac Intermediate WEAK, Verified 12/18/24 14:41 NAUSEA povidone AdvReac Mild Hives Verified 12/18/24 14:41 Surgical History Status post total left knee replacement History of bilateral cataract extraction History of colonoscopy S/P insertion of spinal cord stimulator History of partial thyroidectomy History of appendectomy History of left knee surgery History of hysterectomy History of cholecystectomy Social History household members: spouse Smoking Status: Never smoker Electronic Cigarette Use: not used second hand exposure: No alcohol intake: current alcohol intake frequency: a few times a month Alcohol type: wine substance use type: does not use Vital Signs Vital Signs Vital Signs: Weight Weight: 180 lb 13.313 oz Body Mass Index (BMI) 34.1 Physical Exam Const alert, oriented x3, no apparent distress, no limitations and healthy appearing Constitutional Narrative: The patient's BMI is 34.2. General Appearance: cooperative, comfortable, well kempt and well developed Orientation / Consciousness: awake, oriented to person, oriented to place and oriented to time Exam Limitations: no limitations HEENT normocephalic and head/scalp atraumatic Head and Scalp: normal to inspection, normocephalic and atraumatic Face and Sinus: normal facial exam Nose: external nose normal External Ear: external ears normal Eyes EOMs intact bilaterally General Eye: normal appearance of both eyes Neck full ROM General: normal visual inspection Resp normal respiratory effort, normal air movement, no retractions and no use of accessory muscles Effort and Inspection: able to speak in complete sentences Skin Wounds: wounds noted Wound Narrative: The patient's left total knee replacement incision is healed and well-approximated. However, an open wound remains medial to the healed vertical knee incision. Since the patient's last visit, there has been improvement, with a decrease in size of the remaining wound. Unlike recent visits, there is no visible suture extruding from the base of the wound. The wound is smaller in size. Dimensions are documented elsewhere. Wound margins are generally well beveled. The base of the wound is generally pink and healthy in appearance, with active granulation tissue. There is no sign of infection or cellulitis. There is no drainage or odor. No fluctuance is noted. Hair: normal Neuro oriented x3, CN's II-XII intact bilaterally, moves all extremities, no focal motor deficits and no sensory deficits noted Sensorium / Orientation: awake, alert, oriented to person, oriented to place and oriented to time Speech: speech normal Psych mental status grossly normal, cooperative, affect normal, speech normal and activity/motor behavior normal Appearance: grossly normal Speech: normal speech Thought Content: normal thought content Judgement: judgement good Debridement Note Debridement Note Wound debrided: Chronic, nonhealing left knee surgical wound Laterality: Left Type of Debridement: Excisional debridement Anesthesia Used: 5% Lidocaine Gel and Cetacaine Depth: in the subcutaneous layer Percentage of wound debrided: 100 Instrument Used: 3mm curette Tissue Removed: Bioburden and devitalized tissue Severity: Fat Layer Exposed Amount of bleeding with debridement: Mild Bleeding Controlled with: Compression and gauze Patient tolerated procedure: Patient tolerated procedure well Post-Debridement Measurements and Additional Note: Post-Debridement Measurements/Treatment - Nurse 1 - General Ulcer Assessment Start: 01/28/25 13:37 Freq: Status: Active Protocol: KENNY Activity Type Activity Date Activity User E-sign Co-sign Detail Recorded Client Recorded Date Recorded By Document 01/28/25 13:37 [facility] [id number] 01/28/25 13:42 [facility] 01/28/25 13:37 - Today's Visit Information Type of service 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 ) Arrival Mode Ambulatory Transfer Assistance None Accompanied by Patient Identification Verified (Name & Yes ) Patient Requires Transmission-Based No Precautions Height and Weight Body Mass Index (BMI) 34.1 BMI Classification Obese Vital Signs Temperature (97.8 F-99.1 F) 97.3 F L Temperature Source Temporal Pulse Rate (60-100) 75 Pulse Location Monitor Respiratory Rate (12-18) 16 Respiratory rate source Observation Oxygen Delivery Method Room Air Blood Pressure (90/60-120/80) 148/70 H Blood Pressure Mean 96 Source Monitor Position Sitting Blood Pressure Location Left Arm History Since Last Visit- (Skip if this is Patient's initial visit) Have you changed medications since your No last visit? Any new allergies or adverse reactions No Had a fall/change in ADL's that may No increase risk of falls Signs or symptoms of abuse and/or No neglect since last visit Have you been in the hospital since your No last visit? Has dressing in place as prescribed Yes Has compression in place as prescribed Yes Has offloadiing in place as prescribed N/A Experienced any changes in pain level or No management Left Footwear Regular Shoe Right Footwear Regular Shoe Pain Scale: 0-10 Numeric Is Patient Pain Free? Yes - Nurse 1 - General Ulcer Measurement Start: 01/28/25 13:37 Freq: Status: Active Protocol: Activity Type Activity Date Activity User E-sign Co-sign Detail Recorded Client Recorded Date Recorded By Document 01/28/25 13:37 [facility] [id number] 01/28/25 13:42 [facility] 01/28/25 13:37 Wound Center Nurse 1 #1,.L knee -Combined with other wound No -Current Size (cm) - Length 0.9 -Current Size (cm) - Width 0.5 -Current Size (cm) - Depth 0.4 -Total Square Cm 0.45 -Date of Last Picture (Recall this 01/28/25 field) -Photo Taken Yes -Epithelialization Small 1-33% -Tunneling No -Undermining/Tunneling No -Circular Undermining No -Exudate Amt Medium -Exudate Type Serosanguineous -Wound Margin Distinct, Outline Attached -Granulation Amt Medium (34-66%) -Granulation Quality Red -Slough/Fibrin Yes -Necrosis Amt Medium (34-66%) -Necrotic Tissue Type Adherent Slough -Texture (Anali-wound Skin Appearance) Assessed -Moisture (Anali-wound Skin Appearance) Assessed -Color (Anali-wound Skin Appearance) Assessed -Temperature (Anali-wound Skin No Abnormality Appearance) (Pt Warm) -Tenderness on Palpation (Anali-wound No Skin Appearance) -Ulcer Cleansing Rinsed/ Irrigated with Saline -Foul Odor after Cleansing No -Anesthetic Used 5% Lidocaine Gel - Nurse 2 - General Ulcer CM Notes Start: 01/28/25 13:37 Freq: Status: Active Protocol: Activity Type Activity Date Activity User E-sign Co-sign Detail Recorded Client Recorded Date Recorded By Document 01/28/25 13:57 [id number] 01/28/25 14:03 GM 01/28/25 13:57 Wound Center Nurse 2 -Time 13:58 -Correct Patient Yes -Correct Side, Site, Position Yes -Correct Procedure Yes -Procedure Performed Yes -Type of Procedure Debridement -Clinical Debridement Subcutaneous -Tissue Removed Subcutaneous -Post Debridement (cm) - Length 0.8 -Post Debridement (cm) - Width 0.6 -Post Debridement (cm) - Depth 0.2 -Total Square (Post) (cm) 0.48 -Area of Debridement (cm) - Length 0.8 -Area of Debridement (cm) - Width 0.6 -Total Square (Area) (cm) 0.48 -Tunneling No -Undermining/Tunneling No -Circular Undermining No -Wound/Ulcer Outcome Not Healed -Ulcer Cleansing Not Cleansed -Foul Odor after Cleansing No -Bioengineered Tissue No -Bleeding Controlled with Pressure -Treatment Response Procedure Tolerated Well -Offloading No -Debridement - Subq, 1st 20sq cm Yes Pain Scale: 0-10 Numeric Is Patient Pain Free? Yes - Nurse 3 - General Ulcer D/C NN Start: 01/28/25 13:37 Freq: Status: Active Protocol: Activity Type Activity Date Activity User E-sign Co-sign Detail Recorded Client Recorded Date Recorded By Document 01/28/25 14:18 DL [id number] 01/28/25 14:19 DL 01/28/25 14:18 Wound Care Center Nurse 3 #1,.L knee -Ulcer Cleansing Rinsed/ Irrigated with Saline -Foul Odor after Cleansing No -Primary Dressing Applied Aquacel Extra -Primary Dressing Covered/Secured with Dry Gauze & Roll Gauze, Secured with Tape -Other Covering vikas -Aquacel Extra 1 Treatment Response Procedure Tolerated Well Pain Scale: 0-10 Numeric Is Patient Pain Free? Yes WC - Visit Discharge Discharge Condition Stable Ambulatory Status Ambulatory Transportation Private Auto Charges/Coding Procedures Integumentary [id number]: [id number] [place] subq tissue 20 sq cm/< Assessment/Plan Assessment/Plan (1) Dehiscence of incision: CODE(S): T81.31XA - Disruption of external operation (surgical) wound, not elsewhere classified, initial encounter QUALIFIERS: Encounter type: subsequent encounter Qualified Code(s): T81.31XD - Disruption of external operation (surgical) wound, not elsewhere classified, subsequent encounter (2) Non-pressure chronic ulcer of left thigh with fat layer exposed: CODE(S): L97.122 - Non-pressure chronic ulcer of left thigh with fat layer exposed (3) Diabetes: CODE(S): E11.9 - Type 2 diabetes mellitus without complications QUALIFIERS: Diabetes mellitus type: type 2 Diabetes mellitus skilled nursing insulin use: with skilled nursing use Diabetes mellitus complication status: without complication Qualified Code(s): E11.9 - Type 2 diabetes mellitus without complications; Z79.4 - terminologist (current) use of insulin (4) Status post total left knee replacement: CODE(S): Z96.652 - Presence of left artificial knee joint (5) History of revision of total replacement of left knee joint: CODE(S): Z96.652 - Presence of left artificial knee joint (6) History of left knee surgery: CODE(S): Z98.890 - Other specified postprocedural states (7) History of bilateral cataract extraction: CODE(S): Z98.41 - Cataract extraction status, right eye; Z98.42 - Cataract extraction status, left eye (8) History of hiatal hernia: CODE(S): Z87.19 - Personal history of other diseases of the digestive system (9) History of cholecystectomy: CODE(S): Z90.49 - Acquired absence of other specified parts of digestive tract (10) History of hysterectomy: CODE(S): Z90.710 - Acquired absence of both cervix and uterus (11) History of appendectomy: CODE(S): Z90.49 - Acquired absence of other specified parts of digestive tract (12) Diabetic polyneuropathy: CODE(S): E11.42 - Type 2 diabetes mellitus with diabetic polyneuropathy (13) GERD (gastroesophageal reflux disease): CODE(S): K21.9 - Gastro-esophageal reflux disease without esophagitis (14) Iron deficiency anemia: CODE(S): D50.9 - Iron deficiency anemia, unspecified (15) Hyperlipemia: CODE(S): E78.5 - Hyperlipidemia, unspecified (16) Essential (primary) hypertension: CODE(S): I10 - Essential (primary) hypertension (17) Status post total right knee replacement: CODE(S): Z96.651 - Presence of right artificial knee joint (18) Osteoarthritis: (19) History of DVT (deep vein thrombosis): CODE(S): Z86.718 - Personal history of other venous thrombosis and embolism (20) HTN (hypertension): CODE(S): I10 - Essential (primary) hypertension (21) Dyslipidemia: CODE(S): E78.5 - Hyperlipidemia, unspecified (22) Hypothyroidism: CODE(S): E03.9 - Hypothyroidism, unspecified (23) Ocular myasthenia gravis: CODE(S): G70.00 - Myasthenia gravis without (acute) exacerbation PLAN: Plan This is a 74-year-old female who underwent the fourth revision of a left total knee replacement on June 19, 2024. She developed gangrene, necrosis, and dehiscence at the surgical site. As result, the patient presented for definitive evaluation and management with respect to her surgical wound. At the time of presentation, there was a large amount of necrotic and nonviable tissue at the site of the patient's surgical wound. Over a period of several months, using various conservative treatment measures, including the wound VAC, the patient's surgical wound nearly healed. In recent weeks, however, the patient developed a draining sinus tract medial to her vertical knee incision. It had been draining purulent material. A culture was obtained on January 14, 2025, the results of which were positive for Pseudomonas aeruginosa. The patient was placed on Cipro 500 mg p.o. twice daily for a total of 2 weeks. This was in accordance with the sensitivity findings on her recent culture. Following an unroofing of an infected and undermined cavity adjacent to the patient's surgical incision, an open wound remains medial to the vertical incision. Wound margins are reasonably well beveled. The base of the wound is generally pink and healthy in appearance. There is no noted drainage, fluctuance, or cellulitis. The patient has been encouraged to optimize her nutritional intake, as well as her diabetes management. She has been encouraged to continue taking protein nutritional drinks on a daily basis. She has been encouraged to elevate her left lower extremity to prevent and minimize swelling. Elevation is to be to heart level, during both daytime and nighttime hours. Avoidance of prolonged idle sitting has been encouraged. Activity as tolerated has been encouraged. Tubigrip's will be continued for compression purposes. The patient has indicated that she underwent an x-ray of her left knee on December 11, 2024, at the office of her orthopedic surgeon, Dr. Rob Enciso. We have request a copy of the x-ray report on several occasions, which has not yet been received. However, the patient indicates that her surgeon stated that everything looked okay. Given that the patient has had recurrent cultures positive for Pseudomonas aeruginosa, there is question as to the source of these recurring infections. A stitch abscess may account for this finding, as portions of a nonabsorbable suture have been removed from the wound site in recent weeks. It is considered that infection of the prosthetic left knee hardware could also exist. Consideration may be given to an MRI of the left knee in the near future, if the patient's wound fails to progress. We are to use moistened Aquacel Extra topically on the wound, which will be changed on a daily basis. The patient is to return in 1 week for reevaluation. Total time: 24 minutes
[2025-02-04 14:13] VITALS: RESP 16; TEMP 35.9; BMI 34.1
--- NOTE | 2025-02-04 19:07 | PCM.WC.HP ---
History of Present Illness Date of Service: 02/04/25 Chief Complaint: Dehiscent, necrotic surgical wound of the left knee History of Wound: This is a 74-year-old female with a history of left total knee replacement many years ago, which has required several revisions. The most recent revision was performed on June 19, 2024, at the [facility]. This was the fourth left knee revision. Prior revisions required flap reconstruction, and the Plastic Surgery service was involved in the patient's most recent surgery. Postoperatively, the patient was placed on oral doxycycline, which is expected to continue for 3 months. The patient's left lower extremity was locked in extension for 2 weeks. She is now weightbearing on the involved limb. She was admitted to the Transitional Care Unit at [facility] for several weeks postoperatively on June 27, 2024. She has returned to home, with tourist information assistant care from her . The patient developed a surgical wound dehiscence and marjorie necrosis and gangrene at the site of her incision. A wound VAC was used initially at the surgical site, but the patient had been using Xeroform more recently. The patient suffers from multiple pre-existing medical conditions, listed herein. She does not smoke. She is using Papa as a nutritional supplement. Her BMI is 34.2. 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 Dehiscence of incision History of revision of total replacement of left knee joint Wears glasses Alcohol use History of steroid therapy Bladder disease Neuropathy Back pain Dietary restriction History of pain when walking Pain Myasthenia gravis Ambulates with cane Rheumatoid arthritis Low iron History of DVT (deep vein thrombosis) Hyperlipemia Difficulty swallowing History of hiatal hernia Gastric reflux Non-smoker Shortness of breath on exertion Chronic cough PONV (postoperative nausea and vomiting) Leg cramps History of edema History of stress test Hypertension Thyroid disease Cataracts, bilateral History of UTI Arthritis Home Medications ?Medication ?Instructions ?Recorded ?Last Taken ?Type folic acid 1 mg tablet 1 mg PO DAILY supplement 10/13/13 06/06/22 History atorvastatin 10 mg tablet 5 mg PO .QOD Cholesterol 09/06/21 06/26/24 18:45 History cholecalciferol (vitamin D3) 50 50 mcg PO DAILY supplement 09/06/21 06/27/24 History mcg (2,000 unit) capsule ascorbic acid (vitamin C) 500 mg 500 mg PO DAILY supplement 02/06/22 06/27/24 History tablet (Vitamin C) hydrochlorothiazide 12.5 mg tablet 12.5 mg PO DAILY Blood pressure 06/07/22 Unknown History vibegron 75 mg tablet (Gemtesa) 75 mg PO DAILY Overactive bladder 12/04/22 Unknown History metformin 500 mg tablet,extended 1,000 mg PO BID Diabetes 06/27/24 06/27/24 05:30 History release 24 hr polysaccharide iron complex 150 mg 65 mg PO QODAY Supplement 06/27/24 Unknown History iron capsule (Ferrex) losartan 100 mg tablet 100 mg PO DAILY bp 30 days #30 tabs 07/15/24 Unknown Rx oxycodone 5 mg tablet 5 - 10 mg (1 - 2 x 5 mg) PO Q4H 07/15/24 Unknown Rx PRN PRN Pain Score 4-10 7 days #84 tabs potassium chloride 20 mEq 20 meq PO DAILYCM supplement 30 07/15/24 Unknown Rx tablet,extended release(part/cryst) days #30 tabs arginine 7 gram-glutam 7 1 packet PO DAILY supplement 09/24/24 Unknown History gram-CaHMB 1.5 [id number]-tyova-ti-min oral pwd pkt (Papa (with collagen)) ciprofloxacin HCl 500 mg tablet 500 mg PO BID #30 tabs 01/20/25 Unknown Rx dapagliflozin propanediol 10 mg 10 mg PO QDAY 02/03/25 Unknown History tablet (Farxiga) levothyroxine 100 mcg tablet 100 mcg PO QDAY 02/03/25 Unknown History pregabalin 100 mg capsule 100 mg PO TID 02/03/25 Unknown History pyridostigmine bromide 60 mg tablet 60 mg PO BID #180 tabs 02/03/25 Unknown Rx Allergy/AdvReac Type Severity Reaction Status Date / Time latex Allergy Severe Other Verified 02/03/25 14:06 shellfish derived Allergy Severe PASSED Verified 02/03/25 14:06 OUT, DIARRHEA adhesive Allergy Mild Rash Verified 02/03/25 14:06 levofloxacin AdvReac Intermediate WEAK, Verified 02/03/25 14:06 NAUSEA povidone AdvReac Mild Hives Verified 02/03/25 14:06 Surgical History Status post total left knee replacement History of bilateral cataract extraction History of colonoscopy S/P insertion of spinal cord stimulator History of partial thyroidectomy History of appendectomy History of left knee surgery History of hysterectomy History of cholecystectomy Social History household members: spouse Smoking Status: Never smoker Electronic Cigarette Use: not used second hand exposure: No alcohol intake: current alcohol intake frequency: a few times a month Alcohol type: wine substance use type: does not use Vital Signs Vital Signs Vital Signs: 02/04/25 14:13 Temperature 96.7 F L Temperature Source Temporal Respiratory Rate 16 Oxygen Delivery Method Room Air Weight Weight: 180 lb 13.313 oz Body Mass Index (BMI) 34.1 Physical Exam Const alert, oriented x3, no apparent distress, no limitations and healthy appearing Constitutional Narrative: The patient's BMI is 34.2. General Appearance: cooperative, comfortable, well kempt and well developed Orientation / Consciousness: awake, oriented to person, oriented to place and oriented to time Exam Limitations: no limitations HEENT normocephalic and head/scalp atraumatic Head and Scalp: normal to inspection, normocephalic and atraumatic Face and Sinus: normal facial exam Nose: external nose normal External Ear: external ears normal Eyes EOMs intact bilaterally General Eye: normal appearance of both eyes Neck full ROM General: normal visual inspection Resp normal respiratory effort, normal air movement, no retractions and no use of accessory muscles Effort and Inspection: able to speak in complete sentences Skin Wounds: wounds noted Wound Narrative: The patient's left total knee replacement incision is healed and well-approximated. However, an open wound remains medial to the healed vertical knee incision. Since the patient's last visit, there has been improvement, with a decrease in size of the remaining wound. Unlike recent visits, there is no visible suture extruding from the base of the wound. The wound is smaller in size. Dimensions are documented elsewhere. Wound margins are well beveled. The base of the wound is generally pink and healthy in appearance, with active granulation tissue. There is no sign of infection or cellulitis. There is no drainage or odor. No fluctuance is noted. Hair: normal Neuro oriented x3, CN's II-XII intact bilaterally, moves all extremities, no focal motor deficits and no sensory deficits noted Sensorium / Orientation: awake, alert, oriented to person, oriented to place and oriented to time Speech: speech normal Psych mental status grossly normal, cooperative, affect normal, speech normal and activity/motor behavior normal Appearance: grossly normal Speech: normal speech Thought Content: normal thought content Judgement: judgement good Debridement Note Debridement Note Wound debrided: Chronic, nonhealing left knee surgical wound Laterality: Left Type of Debridement: Excisional debridement Anesthesia Used: 5% Lidocaine Gel and Cetacaine Depth: in the subcutaneous layer Percentage of wound debrided: 100 Instrument Used: 3mm curette Tissue Removed: Bioburden Severity: Fat Layer Exposed Amount of bleeding with debridement: Mild Bleeding Controlled with: Compression and gauze Patient tolerated procedure: Patient tolerated procedure well Post-Debridement Measurements and Additional Note: Post-Debridement Measurements/Treatment - Nurse 1 - General Ulcer Assessment Start: 01/28/25 13:37 Freq: Status: Active Protocol: KENNY Activity Type Activity Date Activity User E-sign Co-sign Detail Recorded Client Recorded Date Recorded By Document 01/28/25 13:37 [facility] [id number] 01/28/25 13:42 [facility] Document 02/04/25 14:13 [id number] 02/04/25 14:22 01/28/25 02/04/25 13:37 14:13 - Today's Visit Information Type of service Follow-up Visit Follow-up Visit (Physician/LICENSED PHYSICAL THERAPIST ASSISTANT (Physician/LICENSED PHYSICAL THERAPIST ASSISTANT ) ) Arrival Mode Ambulatory Ambulatory,Cane Transfer Assistance None Accompanied by Patient Identification Verified (Name & Yes Yes ) Patient Requires Transmission-Based No Precautions Height and Weight Body Mass Index (BMI) 34.1 34.1 BMI Classification Obese Obese Vital Signs Temperature (97.8 F-99.1 F) 97.3 F L 96.7 F L Temperature Source Temporal Temporal Pulse Rate (60-100) 75 Pulse Location Monitor Respiratory Rate (12-18) 16 16 Respiratory rate source Observation Observation Oxygen Delivery Method Room Air Room Air Blood Pressure (90/60-120/80) 148/70 H Blood Pressure Mean 96 Source Monitor Position Sitting Blood Pressure Location Left Arm History Since Last Visit- (Skip if this is Patient's initial visit) Have you changed medications since your No No last visit? Any new allergies or adverse reactions No No Had a fall/change in ADL's that may No No increase risk of falls Signs or symptoms of abuse and/or No No neglect since last visit Have you been in the hospital since your No No last visit? Has dressing in place as prescribed Yes Yes Has compression in place as prescribed Yes Yes Has offloadiing in place as prescribed N/A N/A Experienced any changes in pain level or No No management Left Footwear Regular Shoe Regular Shoe Right Footwear Regular Shoe Regular Shoe Pain Scale: 0-10 Numeric Is Patient Pain Free? Yes Yes WC - Nurse 1 - General Ulcer Measurement Start: 01/28/25 13:37 Freq: Status: Active Protocol: Activity Type Activity Date Activity User E-sign Co-sign Detail Recorded Client Recorded Date Recorded By Document 01/28/25 13:37 [facility] [id number] 01/28/25 13:42 [facility] Document 02/04/25 14:13 [id number] 02/04/25 14:22 KW 01/28/25 02/04/25 13:37 14:13 Wound Center Nurse 1 #1,.L knee -Combined with other wound No -Current Size (cm) - Length 0.9 0.1 -Current Size (cm) - Width 0.5 0.1 -Current Size (cm) - Depth 0.4 0 -Total Square Cm 0.45 0.01 -Date of Last Picture (Recall this 01/28/25 field) -Photo Taken Yes -Epithelialization Small 1-33% -Tunneling No -Undermining/Tunneling No -Circular Undermining No -Exudate Amt Medium None Present -Exudate Type Serosanguineous -Wound Margin Distinct, Outline Attached -Granulation Amt Medium (34-66%) None Present (0 %) -Granulation Quality Red -Slough/Fibrin Yes -Necrosis Amt Medium (34-66%) Large (67-100%) -Necrotic Tissue Type Adherent Slough Adherent Slough -Texture (Anali-wound Skin Appearance) Assessed Assessed -Moisture (Anail-wound Skin Appearance) Assessed Assessed -Color (Anali-wound Skin Appearance) Assessed Assessed -Temperature (Anali-wound Skin No Abnormality No Abnormality Appearance) (Pt Warm) (Pt Warm) -Tenderness on Palpation (Anali-wound No No Skin Appearance) -Ulcer Cleansing Rinsed/ Soap and Water Irrigated with Saline -Foul Odor after Cleansing No No -Anesthetic Used 5% Lidocaine 5% Lidocaine Gel Gel WC - Nurse 2 - General Ulcer CM Notes Start: 01/28/25 13:37 Freq: Status: Active Protocol: Activity Type Activity Date Activity User E-sign Co-sign Detail Recorded Client Recorded Date Recorded By Document 01/28/25 13:57 [id number] 01/28/25 14:03 Document 02/04/25 15:27 [id number] 02/04/25 15:29 01/28/25 02/04/25 13:57 15:27 Wound Center Nurse 2 #1,.L knee -Time 13:58 15:27 -Correct Patient Yes Yes -Correct Side, Site, Position Yes Yes -Correct Procedure Yes Yes -Procedure Performed Yes Yes -Type of Procedure Debridement Debridement -Clinical Debridement Subcutaneous Subcutaneous -Tissue Removed Subcutaneous Subcutaneous -Post Debridement (cm) - Length 0.8 0.4 -Post Debridement (cm) - Width 0.6 0.3 -Post Debridement (cm) - Depth 0.2 0.1 -Total Square (Post) (cm) 0.48 0.12 -Area of Debridement (cm) - Length 0.8 0.4 -Area of Debridement (cm) - Width 0.6 0.3 -Total Square (Area) (cm) 0.48 0.12 -Tunneling No No -Undermining/Tunneling No No -Circular Undermining No No -Wound/Ulcer Outcome Not Healed Not Healed -Ulcer Cleansing Not Cleansed Not Cleansed -Foul Odor after Cleansing No No -Bioengineered Tissue No No -Bleeding Controlled with Pressure Pressure -Treatment Response Procedure Procedure Tolerated Well Tolerated Well -Offloading No No -Debridement - Subq, 1st 20sq cm Yes Yes Pain Scale: 0-10 Numeric Is Patient Pain Free? Yes Yes WC - Nurse 3 - General Ulcer D/C NN Start: 01/28/25 13:37 Freq: Status: Active Protocol: Activity Type Activity Date Activity User E-sign Co-sign Detail Recorded Client Recorded Date Recorded By Document 01/28/25 14:18 DL [id number] 01/28/25 14:19 DL Document 02/04/25 15:38 [facility] [id number] 02/04/25 15:39 [facility] 01/28/25 02/04/25 14:18 15:38 Wound Care Center Nurse 3 #1,.L knee -Ulcer Cleansing Rinsed/ Rinsed/ Irrigated with Irrigated with Saline Saline -Foul Odor after Cleansing No No -Primary Dressing Applied Aquacel Extra -Other Dressing hydrogel -Primary Dressing Covered/Secured with Dry Gauze & Dry Gauze & Roll Gauze, Roll Gauze, Secured with Secured with Tape Tape -Other Covering randy -Aquacel Extra 1 left knee -Compression Wrap Randy Wrap Treatment Response Procedure Tolerated Well Pain Scale: 0-10 Numeric Is Patient Pain Free? Yes Yes WC - Visit Discharge Discharge Condition Stable Stable Ambulatory Status Ambulatory Ambulatory,Cane Transportation Private Auto Private Auto Charges/Coding Procedures Integumentary [id number]: [id number] [place] subq tissue 20 sq cm/< Assessment/Plan Assessment/Plan (1) Dehiscence of incision: CODE(S): T81.31XA - Disruption of external operation (surgical) wound, not elsewhere classified, initial encounter QUALIFIERS: Encounter type: subsequent encounter Qualified Code(s): T81.31XD - Disruption of external operation (surgical) wound, not elsewhere classified, subsequent encounter (2) Non-pressure chronic ulcer of left thigh with fat layer exposed: CODE(S): L97.122 - Non-pressure chronic ulcer of left thigh with fat layer exposed (3) Diabetes: CODE(S): E11.9 - Type 2 diabetes mellitus without complications QUALIFIERS: Diabetes mellitus type: type 2 Diabetes mellitus technician terminal and repeater insulin use: with technician terminal and repeater use Diabetes mellitus complication status: without complication Qualified Code(s): E11.9 - Type 2 diabetes mellitus without complications; Z79.4 - group home (current) use of insulin (4) Status post total left knee replacement: CODE(S): Z96.652 - Presence of left artificial knee joint (5) History of revision of total replacement of left knee joint: CODE(S): Z96.652 - Presence of left artificial knee joint (6) History of left knee surgery: CODE(S): Z98.890 - Other specified postprocedural states (7) History of bilateral cataract extraction: CODE(S): Z98.41 - Cataract extraction status, right eye; Z98.42 - Cataract extraction status, left eye (8) History of hiatal hernia: CODE(S): Z87.19 - Personal history of other diseases of the digestive system (9) History of cholecystectomy: CODE(S): Z90.49 - Acquired absence of other specified parts of digestive tract (10) History of hysterectomy: CODE(S): Z90.710 - Acquired absence of both cervix and uterus (11) History of appendectomy: CODE(S): Z90.49 - Acquired absence of other specified parts of digestive tract (12) Diabetic polyneuropathy: CODE(S): E11.42 - Type 2 diabetes mellitus with diabetic polyneuropathy (13) GERD (gastroesophageal reflux disease): CODE(S): K21.9 - Gastro-esophageal reflux disease without esophagitis (14) Iron deficiency anemia: CODE(S): D50.9 - Iron deficiency anemia, unspecified (15) Hyperlipemia: CODE(S): E78.5 - Hyperlipidemia, unspecified (16) Essential (primary) hypertension: CODE(S): I10 - Essential (primary) hypertension (17) Status post total right knee replacement: CODE(S): Z96.651 - Presence of right artificial knee joint (18) Osteoarthritis: (19) History of DVT (deep vein thrombosis): CODE(S): Z86.718 - Personal history of other venous thrombosis and embolism (20) HTN (hypertension): CODE(S): I10 - Essential (primary) hypertension (21) Dyslipidemia: CODE(S): E78.5 - Hyperlipidemia, unspecified (22) Hypothyroidism: CODE(S): E03.9 - Hypothyroidism, unspecified (23) Ocular myasthenia gravis: CODE(S): G70.00 - Myasthenia gravis without (acute) exacerbation PLAN: Plan This is a 74-year-old female who underwent the fourth revision of a left total knee replacement on June 19, 2024. She developed gangrene, necrosis, and dehiscence at the surgical site. As result, the patient presented for definitive evaluation and management with respect to her surgical wound. At the time of presentation, there was a large amount of necrotic and nonviable tissue at the site of the patient's surgical wound. Over a period of several months, using various conservative treatment measures, including the wound VAC, the patient's surgical wound nearly healed. In recent weeks, however, the patient developed a draining sinus tract medial to her vertical knee incision. It had been draining purulent material. A culture was obtained on January 14, 2025, the results of which were positive for Pseudomonas aeruginosa. The patient was placed on Cipro 500 mg p.o. twice daily for a total of 2 weeks. This was in accordance with the sensitivity findings on her recent culture. Following an unroofing of an infected and undermined cavity adjacent to the patient's surgical incision, an open wound remains medial to the vertical incision. Wound margins are reasonably well beveled. The base of the wound is generally pink and healthy in appearance. There is no noted drainage, fluctuance, or cellulitis. The wound continues to decrease in size, and is now quite small. The patient has been encouraged to optimize her nutritional intake, as well as her diabetes management. She has been encouraged to continue taking protein nutritional drinks on a daily basis. She has been encouraged to elevate her left lower extremity to prevent and minimize swelling. Elevation is to be to heart level, during both daytime and nighttime hours. Avoidance of prolonged idle sitting has been encouraged. Activity has been encouraged. Tubigrip's will be continued for compression purposes. The patient has indicated that she underwent an x-ray of her left knee on December 11, 2024, at the office of her orthopedic surgeon, Dr. Rob Enciso. We have request a copy of the x-ray report on several occasions, which has not yet been received. However, the patient indicates that her surgeon stated that everything looked okay. Given that the patient has had recurrent cultures positive for Pseudomonas aeruginosa, there is question as to the source of these recurring infections. A stitch abscess may account for this finding, as portions of a nonabsorbable suture have been recently removed from the wound site in recent weeks. In the last several weeks, however, there has been no evidence of purulent, fluctuance, drainage, or extrusion of suture. It is considered that infection of the prosthetic left knee hardware could also exist, though currently appears to be unlikely. Consideration may be given to an MRI of the left knee in the near future, if the patient fails to progress. At this juncture, however, her progress has been satisfactory. We are to transition to the use of collagen hydrogel topically on a daily basis. The patient and her have been instructed in the appropriate means of application. The site will then be covered with dry gauze. The patient is to return in 1 week for reevaluation. Total time: 25 minutes
[2025-02-18 13:50] VITALS: BP 146/71; PULSE 76; RESP 18; TEMP 35.8; BMI 34.1
--- NOTE | 2025-02-19 11:01 | WC ---
PHOTO 02/18/25 LEFT KNEE
--- NOTE | 2025-02-20 12:07 | PCM.WC.HP ---
History of Present Illness Date of Service: 02/18/25 Chief Complaint: Dehiscent, necrotic surgical wound of the left knee History of Wound: This is a 74-year-old female with a history of left total knee replacement many years ago, which has required several revisions. The most recent revision was performed on June 19, 2024, at the [facility]. This was the fourth left knee revision. Prior revisions required flap reconstruction, and the Plastic Surgery service was involved in the patient's most recent surgery. Postoperatively, the patient was placed on oral doxycycline, which is expected to continue for 3 months. The patient's left lower extremity was locked in extension for 2 weeks. She is now weightbearing on the involved limb. She was admitted to the Transitional Care Unit at [facility] for several weeks postoperatively on June 27, 2024. She has returned to home, with licensed investment sales assistant care from her . The patient developed a surgical wound dehiscence and marjorie necrosis and gangrene at the site of her incision. A wound VAC was used initially at the surgical site, but the patient had been using Xeroform more recently. The patient suffers from multiple pre-existing medical conditions, listed herein. She does not smoke. She is using Papa as a nutritional supplement. Her BMI is 34.2. 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 Dehiscence of incision History of revision of total replacement of left knee joint Wears glasses Alcohol use History of steroid therapy Bladder disease Neuropathy Back pain Dietary restriction History of pain when walking Pain Myasthenia gravis Ambulates with cane Rheumatoid arthritis Low iron History of DVT (deep vein thrombosis) Hyperlipemia Difficulty swallowing History of hiatal hernia Gastric reflux Non-smoker Shortness of breath on exertion Chronic cough PONV (postoperative nausea and vomiting) Leg cramps History of edema History of stress test Hypertension Thyroid disease Cataracts, bilateral History of UTI Arthritis Home Medications ?Medication ?Instructions ?Recorded ?Last Taken ?Type folic acid 1 mg tablet 1 mg PO DAILY supplement 10/13/13 06/06/22 History atorvastatin 10 mg tablet 5 mg PO .QOD Cholesterol 09/06/21 06/26/24 18:45 History cholecalciferol (vitamin D3) 50 50 mcg PO DAILY supplement 09/06/21 06/27/24 History mcg (2,000 unit) capsule ascorbic acid (vitamin C) 500 mg 500 mg PO DAILY supplement 02/06/22 06/27/24 History tablet (Vitamin C) hydrochlorothiazide 12.5 mg tablet 12.5 mg PO DAILY Blood pressure 06/07/22 Unknown History vibegron 75 mg tablet (Gemtesa) 75 mg PO DAILY Overactive bladder 12/04/22 Unknown History metformin 500 mg tablet,extended 1,000 mg PO BID Diabetes 06/27/24 06/27/24 05:30 History release 24 hr polysaccharide iron complex 150 mg 65 mg PO QODAY Supplement 06/27/24 Unknown History iron capsule (Ferrex) losartan 100 mg tablet 100 mg PO DAILY bp 30 days #30 tabs 07/15/24 Unknown Rx oxycodone 5 mg tablet 5 - 10 mg (1 - 2 x 5 mg) PO Q4H 07/15/24 Unknown Rx PRN PRN Pain Score 4-10 7 days #84 tabs potassium chloride 20 mEq 20 meq PO DAILYCM supplement 30 07/15/24 Unknown Rx tablet,extended release(part/cryst) days #30 tabs arginine 7 gram-glutam 7 1 packet PO DAILY supplement 09/24/24 Unknown History gram-CaHMB 1.5 gddh-hdpsb-so-min oral pwd pkt (Papa (with collagen)) ciprofloxacin HCl 500 mg tablet 500 mg PO BID #30 tabs 01/20/25 Unknown Rx dapagliflozin propanediol 10 mg 10 mg PO QDAY 02/03/25 Unknown History tablet (Farxiga) levothyroxine 100 mcg tablet 100 mcg PO QDAY 02/03/25 Unknown History pregabalin 100 mg capsule 100 mg PO TID 02/03/25 Unknown History pyridostigmine bromide 60 mg tablet 60 mg PO BID #180 tabs 02/03/25 Unknown Rx doxycycline monohydrate 100 mg 100 mg PO BID #14 CAPSULES 02/18/25 Unknown Rx capsule prednisone 20 mg tablet 60 mg (3 x 20 mg) PO DAILY #12 02/18/25 Unknown Rx TABLETS Allergy/AdvReac Type Severity Reaction Status Date / Time latex Allergy Severe Other Verified 02/18/25 15:31 shellfish derived Allergy Severe PASSED Verified 02/18/25 15:31 OUT, DIARRHEA adhesive Allergy Mild Rash Verified 02/18/25 15:31 levofloxacin AdvReac Intermediate WEAK, Verified 02/18/25 15:31 NAUSEA povidone AdvReac Mild Hives Verified 02/18/25 15:31 Surgical History Status post total left knee replacement History of bilateral cataract extraction History of colonoscopy S/P insertion of spinal cord stimulator History of partial thyroidectomy History of appendectomy History of left knee surgery History of hysterectomy History of cholecystectomy Social History household members: spouse housing: house Smoking Status: Never smoker Electronic Cigarette Use: not used second hand exposure: No alcohol intake: current alcohol intake frequency: a few times a month Alcohol type: wine substance use type: does not use Vital Signs Vital Signs Vital Signs: Weight Weight: 180 lb 13.313 oz Body Mass Index (BMI) 34.1 Physical Exam Const alert, oriented x3, no apparent distress, no limitations and healthy appearing Constitutional Narrative: The patient's BMI is 34.2. General Appearance: cooperative, comfortable, well kempt and well developed Orientation / Consciousness: awake, oriented to person, oriented to place and oriented to time Exam Limitations: no limitations HEENT normocephalic and head/scalp atraumatic Head and Scalp: normal to inspection, normocephalic and atraumatic Face and Sinus: normal facial exam Nose: external nose normal External Ear: external ears normal Eyes EOMs intact bilaterally General Eye: normal appearance of both eyes Neck full ROM General: normal visual inspection Resp normal respiratory effort, normal air movement, no retractions and no use of accessory muscles Effort and Inspection: able to speak in complete sentences Skin Wounds: wounds noted Wound Narrative: All wounds of the patient's left knee are now completely healed and epithelialized. There is no sign of infection or cellulitis. Slight swelling in the left lower extremity persists. Hair: normal Neuro oriented x3, CN's II-XII intact bilaterally, moves all extremities, no focal motor deficits and no sensory deficits noted Sensorium / Orientation: awake, alert, oriented to person, oriented to place and oriented to time Speech: speech normal Psych mental status grossly normal, cooperative, affect normal, speech normal and activity/motor behavior normal Appearance: grossly normal Speech: normal speech Thought Content: normal thought content Judgement: judgement good Debridement Note Debridement Note No debridement was completed: No debridement was completed today Charges/Coding Visit Charges Office Visits / Consults: [id number] OV L3 Est 20min Assessment/Plan Assessment/Plan (1) Dehiscence of incision: CODE(S): T81.31XA - Disruption of external operation (surgical) wound, not elsewhere classified, initial encounter QUALIFIERS: Encounter type: subsequent encounter Qualified Code(s): T81.31XD - Disruption of external operation (surgical) wound, not elsewhere classified, subsequent encounter (2) Non-pressure chronic ulcer of left thigh with fat layer exposed: CODE(S): L97.122 - Non-pressure chronic ulcer of left thigh with fat layer exposed (3) Diabetes: CODE(S): E11.9 - Type 2 diabetes mellitus without complications QUALIFIERS: Diabetes mellitus type: type 2 Diabetes mellitus middle or intermediate school principal insulin use: with mcfp use Diabetes mellitus complication status: without complication Qualified Code(s): E11.9 - Type 2 diabetes mellitus without complications; Z79.4 - [facility] (current) use of insulin (4) Status post total left knee replacement: CODE(S): Z96.652 - Presence of left artificial knee joint (5) History of revision of total replacement of left knee joint: CODE(S): Z96.652 - Presence of left artificial knee joint (6) History of left knee surgery: CODE(S): Z98.890 - Other specified postprocedural states (7) History of bilateral cataract extraction: CODE(S): Z98.41 - Cataract extraction status, right eye; Z98.42 - Cataract extraction status, left eye (8) History of hiatal hernia: CODE(S): Z87.19 - Personal history of other diseases of the digestive system (9) History of cholecystectomy: CODE(S): Z90.49 - Acquired absence of other specified parts of digestive tract (10) History of hysterectomy: CODE(S): Z90.710 - Acquired absence of both cervix and uterus (11) History of appendectomy: CODE(S): Z90.49 - Acquired absence of other specified parts of digestive tract (12) Diabetic polyneuropathy: CODE(S): E11.42 - Type 2 diabetes mellitus with diabetic polyneuropathy (13) GERD (gastroesophageal reflux disease): CODE(S): K21.9 - Gastro-esophageal reflux disease without esophagitis (14) Iron deficiency anemia: CODE(S): D50.9 - Iron deficiency anemia, unspecified (15) Hyperlipemia: CODE(S): E78.5 - Hyperlipidemia, unspecified (16) Essential (primary) hypertension: CODE(S): I10 - Essential (primary) hypertension (17) Status post total right knee replacement: CODE(S): Z96.651 - Presence of right artificial knee joint (18) Osteoarthritis: (19) History of DVT (deep vein thrombosis): CODE(S): Z86.718 - Personal history of other venous thrombosis and embolism (20) HTN (hypertension): CODE(S): I10 - Essential (primary) hypertension (21) Dyslipidemia: CODE(S): E78.5 - Hyperlipidemia, unspecified (22) Hypothyroidism: CODE(S): E03.9 - Hypothyroidism, unspecified (23) Ocular myasthenia gravis: CODE(S): G70.00 - Myasthenia gravis without (acute) exacerbation PLAN: Plan This is a 74-year-old female who underwent the fourth revision of a left total knee replacement on June 19, 2024. She developed gangrene, necrosis, and dehiscence at the surgical site. As result, the patient presented for definitive evaluation and management with respect to her surgical wound. At the time of presentation, there was a large amount of necrotic and nonviable tissue at the site of the patient's surgical wound. Over a period of many months, using various conservative treatment measures, including the wound VAC, the patient's surgical wound is now completely healed and epithelialized. Therefore, the patient is to be discharged, and will follow-up henceforth on an as-needed basis. She has been encouraged to pad and protect the area for several weeks, to prevent friction or trauma to the area. She has been encouraged to continue conservative measures relative to mitigation of the swelling in her left lower extremity. These are to include leg elevation, avoidance of prolonged idle standing and sitting, activity, and the use of daily compression. She is discharged today with a Tubigrip for compression, and encouraged to obtain graduated compression stockings for daily use. Total time: 22 minutes
== END 2025-02-18 15:42 | disposition home or self-care (01) ==
LOC: WC 13:45
PROVIDERS: PCP Internal Medicine; Visit Provider Surgery
DX: T81.31XA Disruption of external operation (surgical) wound, not elsewhere classified, initial encounter (principal); E11.622 Type 2 diabetes mellitus with other skin ulcer; L97.122 Non-pressure chronic ulcer of left thigh with fat layer exposed; G70.00 Myasthenia gravis without (acute) exacerbation; E11.42 Type 2 diabetes mellitus with diabetic polyneuropathy; Z79.4 Long term (current) use of insulin; D50.9 Iron deficiency anemia, unspecified; E89.0 Postprocedural hypothyroidism; Z79.890 Hormone replacement therapy; Z79.84 Long term (current) use of oral hypoglycemic drugs; Z79.52 Long term (current) use of systemic steroids; Z79.891 Long term (current) use of opiate analgesic; I10 Essential (primary) hypertension; M19.90 Unspecified osteoarthritis, unspecified site; Z86.718 Personal history of other venous thrombosis and embolism; E78.5 Hyperlipidemia, unspecified; Z90.710 Acquired absence of both cervix and uterus; K21.9 Gastro-esophageal reflux disease without esophagitis; Z96.652 Presence of left artificial knee joint; Z98.41 Cataract extraction status, right eye; Z87.19 Personal history of other diseases of the digestive system; Z90.49 Acquired absence of other specified parts of digestive tract; Z96.651 Presence of right artificial knee joint
CPT/HCPCS: 11042; 99213; G0463

== ENCOUNTER 2025-02-18 15:30 | Emergency (ER) | payer MEDICARE, SELFPAY ==
[2025-02-18] VITALS (8 sets, daily range): BP systolic 104–137; BP diastolic 60–87; PULSE 77–92; RESP 16–20; TEMP 36.6–36.8; O2SAT 93–98; BMI 33.0
--- NOTE | 2025-02-18 15:51 | RAD_ITS ---
EXAM: XR Chest, 2 Views CLINICAL INDICATION: PRODUCTIVE COUGH, WHEEZING AND CHEST TIGHTNESS/HEA TECHNIQUE: Frontal and lateral views of the chest. COMPARISON: No relevant prior studies available. FINDINGS: LUNGS AND PLEURAL SPACES: Unremarkable. No consolidation. No pneumothorax. HEART: Unremarkable. No cardiomegaly. MEDIASTINUM: Unremarkable. Normal mediastinal contour. BONES/JOINTS: Unremarkable. No acute fracture. RAD/Chest PA and Lateral IMPRESSION: No acute cardiopulmonary process. Reading Location: [facility]
--- NOTE | 2025-02-18 15:51 | EKG12_ITS ---
Test Reason : SOB Blood Pressure : */* mmHG Vent. Rate : 75 BPM Atrial Rate : 75 BPM P-R Int : 154 ms QRS Dur : 66 ms QT Int : 366 ms P-R-T Axes : 83 3 52 degrees QTcB Int : 408 ms Normal sinus rhythm Cannot rule out Anterior infarct , age undetermined Abnormal ECG Confirmed by ANH CEDENO ([id number]), senior technical editor ERIKA BRITO ([id number]) on 02/23/2025 7:27:19 AM Referred By: Yoni Torres Confirmed By: ANH CEDENO
[2025-02-18 16:04] LABS: Absolute Lymphocyte Count 1.25 X10^3/uL (0.83-4.51); Absolute Neutrophil Count 3.8 X10^3/uL (2.0-7.7); Basophil# 0.12 X10^3/uL; Basophil% 1.8 % (0-1); Eosinophil# 0.69 X10^3/uL; Eosinophils% 10.1 % (0-5); Hematocrit 42.2 % (37-47); Hemoglobin 13.4 g/dL (12.0-15.0); Lymphocyte # 1.25 X10^3/ul (0.83-4.51); Lymphocyte % 18.3 % (19-41); Mean Corp Hgb Conc 31.8 g/dL (32-36); Mean Corpuscular Volume 81.9 fL (81-99); Mean Platelet Vol. 10.8 fl (6.2-12.0); Monocyte# 0.96 X10^3/uL; NRBC Flagged by Analyzer 0 % (0-5); Neutrophil # 3.79 X10^3/uL (2.7-7.7); Neutrophil % 55.4 % (47-70); Platelet Count 302 K/mm3 (150-450); RBC Distribution Width CV 16.9 % (11.6-14.6); RBC Distribution Width SD 49.7 fl (35.1-43.9); Red Blood Count 5.15 M/mm3 (4.2-5.4); White Blood Count 6.8 K/mm3 (4.4-11.0)
[2025-02-18] MEDS: Albuterol 2.5 MG/3 ML VIAL.NEB. INHALATION ×3 (16:04→16:14)
[2025-02-18] MEDS: Ipratropium/Albuterol Sulfate 3 ML AMPUL.NEB INHALATION (16:05)
--- NOTE | 2025-02-18 16:40 | EX.ED.DYSGE1 ---
HPI History of Present Illness Chief Complaint: Shortness of Breath Detail of Chief Complaint: Patient with shortness of breath and chest pressure for the past 3 days. Informant: patient, spouse/S.O. and PCP (Dr. Lechuga was called prior to arrival. He is concerned that she may have more than just a upper respiratory infection.) Onset/Context/Timing Onset: Days Context: Sudden Onset Timing: Continuous (The dyspnea is continuous.) and Intermittent (The wheezing and chest pressure has been intermittent.) Quality: Pressure Location: Right side of the sternum Current Severity: Mild Maximum Severity: Moderate Worsened by: Activity Relieved by: Rest Associated Symptoms Associated Symptoms: Cough productive of colored sputum, wheezing, chills Narrative Narrative: Patient is a 74-year-old woman. She has been sick for the last 3 days. had to supplement and make corrections. She denies documented fever. She denies headache, visual, ocular auditory symptoms. Her cough is productive of colored thick sputum. She also reports wheezing, dyspnea on exertion with discomfort with exertion. She denies history of PE. She has history of DVT. She denies leg pain, swelling discoloration. She denies abdominal pain, nausea, vomiting or diarrhea. She denies dysuria, frequency, urgency or hematuria. She denies back or flank pain. 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 Dehiscence of incision History of revision of total replacement of left knee joint Wears glasses Alcohol use History of steroid therapy Bladder disease Neuropathy Back pain Dietary restriction History of pain when walking Pain Myasthenia gravis Ambulates with cane Rheumatoid arthritis Low iron History of DVT (deep vein thrombosis) Hyperlipemia Difficulty swallowing History of hiatal hernia Gastric reflux Non-smoker Shortness of breath on exertion Chronic cough PONV (postoperative nausea and vomiting) Leg cramps History of edema History of stress test Hypertension Thyroid disease Cataracts, bilateral History of UTI Arthritis Home Medications ?Medication ?Instructions ?Recorded ?Last Taken ?Type folic acid 1 mg tablet 1 mg PO DAILY supplement 10/13/13 06/06/22 History atorvastatin 10 mg tablet 5 mg PO .QOD Cholesterol 09/06/21 06/26/24 18:45 History cholecalciferol (vitamin D3) 50 50 mcg PO DAILY supplement 09/06/21 06/27/24 History mcg (2,000 unit) capsule ascorbic acid (vitamin C) 500 mg 500 mg PO DAILY supplement 02/06/22 06/27/24 History tablet (Vitamin C) hydrochlorothiazide 12.5 mg tablet 12.5 mg PO DAILY Blood pressure 06/07/22 Unknown History vibegron 75 mg tablet (Gemtesa) 75 mg PO DAILY Overactive bladder 12/04/22 Unknown History metformin 500 mg tablet,extended 1,000 mg PO BID Diabetes 06/27/24 06/27/24 05:30 History release 24 hr polysaccharide iron complex 150 mg 65 mg PO QODAY Supplement 06/27/24 Unknown History iron capsule (Ferrex) losartan 100 mg tablet 100 mg PO DAILY bp 30 days #30 tabs 07/15/24 Unknown Rx oxycodone 5 mg tablet 5 - 10 mg (1 - 2 x 5 mg) PO Q4H 07/15/24 Unknown Rx PRN PRN Pain Score 4-10 7 days #84 tabs potassium chloride 20 mEq 20 meq PO DAILYCM supplement 30 07/15/24 Unknown Rx tablet,extended release(part/cryst) days #30 tabs arginine 7 gram-glutam 7 1 packet PO DAILY supplement 09/24/24 Unknown History gram-CaHMB 1.5 [id number] oral pwd pkt (Papa (with collagen)) ciprofloxacin HCl 500 mg tablet 500 mg PO BID #30 tabs 01/20/25 Unknown Rx dapagliflozin propanediol 10 mg 10 mg PO QDAY 02/03/25 Unknown History tablet (Farxiga) levothyroxine 100 mcg tablet 100 mcg PO QDAY 02/03/25 Unknown History pregabalin 100 mg capsule 100 mg PO TID 02/03/25 Unknown History pyridostigmine bromide 60 mg tablet 60 mg PO BID #180 tabs 02/03/25 Unknown Rx doxycycline monohydrate 100 mg 100 mg PO BID #14 CAPSULES 02/18/25 Unknown Rx capsule prednisone 20 mg tablet 60 mg (3 x 20 mg) PO DAILY #12 02/18/25 Unknown Rx TABLETS Allergy/AdvReac Type Severity Reaction Status Date / Time latex Allergy Severe Other Verified 02/18/25 15:31 shellfish derived Allergy Severe PASSED Verified 02/18/25 15:31 OUT, DIARRHEA adhesive Allergy Mild Rash Verified 02/18/25 15:31 levofloxacin AdvReac Intermediate WEAK, Verified 02/18/25 15:31 NAUSEA povidone AdvReac Mild Hives Verified 02/18/25 15:31 Surgical History Status post total left knee replacement History of bilateral cataract extraction History of colonoscopy S/P insertion of spinal cord stimulator History of partial thyroidectomy History of appendectomy History of left knee surgery History of hysterectomy History of cholecystectomy Social History household members: spouse housing: house Smoking Status: Never smoker Electronic Cigarette Use: not used second hand exposure: No alcohol intake: current alcohol intake frequency: a few times a month Alcohol type: wine substance use type: does not use ROS ROS ED Constitutional Constitutional ED: Reports chills; Denies fever(s), subjective or sweats Eyes Eyes: Denies blurry vision or change in vision ENT ENT ED: Denies ear pain, rhinorrhea or sore throat Cardiovascular Cardiovascular: Reports chest pain; Denies orthopnea, palpitations, paroxysmal nocturnal dyspnea or racing heartbeat Respiratory/Chest Respiratory/Chest: Reports cough, dyspnea, dyspnea on exertion and sputum; Denies orthopnea or paroxysmal nocturnal dyspnea Gastrointestinal Gastrointestinal: Denies abdominal pain, diarrhea, nausea or vomiting Genitourinary Genitourinary ED: Denies dysuria, hematuria or urinary frequency Musculoskeletal Musculoskeletal: Denies arthralgias or myalgias Integumentary Denies rash Neurologic Neurologic: Reports weakness; Denies headache(s) or paresthesias Hematologic/Lymphatic Hematologic/Lymphatic: Reports systems reviewed and no addt'l complaints, except as documented EXAM Physical Exam Const Vital Signs: 02/18/25 15:31 02/18/25 15:34 02/18/25 15:34 Temperature 98.2 F 98.3 F Temperature Source Oral Oral Pulse Rate 92 81 Respiratory Rate 16 19 H Respiratory Effort Normal Short of Breath Respiratory Pattern Blood Pressure 104/78 131/78 H Blood Pressure Mean 86 95 Pulse Ox 97 97 Oxygen Delivery Method Room Air Room Air Room Air 02/18/25 16:00 02/18/25 16:34 02/18/25 17:30 Temperature 98 F Temperature Source Oral Pulse Rate 88 80 78 Respiratory Rate 17 19 H 19 H Respiratory Effort Respiratory Pattern Normal Blood Pressure 135/87 H 134/70 H Blood Pressure Mean 103 91 Pulse Ox 98 93 Oxygen Delivery Method Room Air 02/18/25 19:00 02/18/25 21:00 Temperature Temperature Source Pulse Rate 78 77 Respiratory Rate 16 20 H Respiratory Effort Respiratory Pattern Blood Pressure 128/78 H 137/60 H Blood Pressure Mean 94 85 Pulse Ox 93 96 Oxygen Delivery Method Room Air Positive well nourished and well developed Constitutional Narrative: BMI is 33.1. Patient's initial vital signs are unremarkable. She is not hypoxic. General Appearance ED: well developed; Negative for pallor HEENT Reports moist mucous membranes HEENT Narrative: Head is atraumatic normocephalic. Ears normal. Nares patent. Posterior pharynx normal. Uvula midline. No deviation of the tongue with protrusion. Eyes PERRL and EOMs intact bilaterally General Eye ED: Negative for pale conjunctiva or scleral icterus Neck no lymphadenopathy, supple and no JVD Chest Wall inspection of chest normal Resp normal respiratory effort and No clear to auscultation bilaterally Auscultation: rales left base, wheezes expiratory wheezes and scattered wheezes and diminished lung sounds bilateral lower Cardio regular rate, regular rhythm, S1 normal heart sound and S2 normal heart sound GI normal to inspection, nondistended, normoactive bowel sounds, non-tender, non-distended and no masses; Negative for hepatosplenomegaly Back/Spine no CVA tenderness Extremity normal to inspection Extremity Narrative: There is no asymmetry, swelling, discoloration, leg vein distention, palpable cords or tenderness along the distribution of the deep venous system. Neuro oriented x3 and CN's II-XII intact bilaterally Sensorium / Orientation: alert Psych mental status grossly normal Skin no rashes or lesions noted, no wounds and skin turgor normal General Skin Exam: elasticity normal; Negative for jaundice or pallor MDM MDM MDM Narrative Medical decision making narrative: Differential diagnosis would include atypical pneumonia, commune acquired pneumonia, hyperactive airway due to bacterial viral infection, history and physical is not consistent with PE. Because she describes pressure and exertional symptoms need to rule out cardiac etiology. Sepsis cardiac workup was undertaken. Patient does have risk factors for cardiac disease. Also need to assess blood sugar since she has history of diabetes and has an infection. History & Record Review Additional record(s) reviewed:: Prior inpatient record (Patient was admitted in September for hyperglycemia, hypokalemia and cellulitis of the left lower extremity. This was related to her knee surgery.), Prior outpatient record (Patient has been followed in the wound clinic by Dr. Anthony Esquivel for dehiscence of knee incision. She was just released according the .), Prior ED visit and Prior labs Lab Data Attestation: I reviewed the patient's lab results. Lab results narrative: CBC is unremarkable. Comprehensive metabolic panel is remarked for an elevated glucose of 129 with normal CO2 anion gap. BUN/creatinine ratio is elevated at 21-1. First troponin was 20. Second troponin was 17. Lactate is normal. Transaminases are normal. Labs: Laboratory Results - last 24 hr 02/18/25 02/18/25 02/18/25 15:39 15:58 17:28 WBC 6.8 RBC 5.15 Hgb 13.4 Hct 42.2 MCV 81.9 MCH 26.0 L MCHC 31.8 L RDW Std Deviation 49.7 H RDW Coeff of April 16.9 H Plt Count 302 MPV 10.8 Immature Gran % (Auto) 0.400 Neut % (Auto) 55.4 Lymph % (Auto) 18.3 L Mckean % (Auto) 14.0 H Eos % (Auto) 10.1 H Baso % (Auto) 1.8 H Absolute Neuts (auto) 3.8 Absolute Lymphs (auto) 1.25 Nucleated RBC % 0 Sodium 138 Potassium 4.2 Chloride 103 Carbon Dioxide 23.6 Anion Gap 12 BUN 17 Creatinine 0.78 Estim Creat Clear Calc 57.07 Est GFR (MDRD) Non-Af 79 BUN/Creatinine Ratio 21.4 H Glucose 129 H Lactic Acid 1.6 Calcium 9.7 Total Bilirubin 0.26 AST 24 ALT 10 Alkaline Phosphatase 103 Troponin T High Sens 20 H Troponin T Hi Sens 2 Hr 17 H Troponin T Hi Sens 4Hr Total Protein 7.5 Albumin 4.3 Globulin 3.3 Albumin/Globulin Ratio 1.3 02/18/25 20:21 WBC RBC Hgb Hct MCV MCH MCHC RDW Std Deviation RDW Coeff of April Plt Count MPV Immature Gran % (Auto) Neut % (Auto) Lymph % (Auto) Mckean % (Auto) Eos % (Auto) Baso % (Auto) Absolute Neuts (auto) Absolute Lymphs (auto) Nucleated RBC % Sodium Potassium Chloride Carbon Dioxide Anion Gap BUN Creatinine Estim Creat Clear Calc Est GFR (MDRD) Non-Af BUN/Creatinine Ratio Glucose Lactic Acid Calcium Total Bilirubin AST ALT Alkaline Phosphatase Troponin T High Sens Troponin T Hi Sens 2 Hr Troponin T Hi Sens 4Hr 17 H Total Protein Albumin Globulin Albumin/Globulin Ratio 4-hour troponin 17. Radiography Chest X-Ray - ED: 2 View and Read by ED Physician (There is no acute cardiopulmonary pathology. There is minimal chronic lung parenchymal changes. Cardiac silhouette size normal. Patient does have a hiatal hernia. Osseous structures reveal no acute process.) Diagnostic Testing: Clinical Impression(s) from Imaging Studies Chest X-Ray 02/18/25 15:51 IMPRESSION: No acute cardiopulmonary process. Reading Location: [facility] EKG Initial EKG: Attestation: I personally reviewed and interpreted this EKG as follows: Interpretation: Sinus Rhythm (Rate is 75. Patient has a [place] interval of 154 ms. Cures duration 6 6 ms. QT duration of 160 ms. [place] is normal. There is no acute ischemic changes even though the computer is reading cannot rule out anterior MT. I am in disagreement.) Discharge Plan Triage Chief Complaint: Shortness of Breath ED Provider: Yoni Torres Dx/Rx/DC Orders Clinical Impression: Bronchitis, purulent, chronic, HTN (hypertension), Hyperlipemia, Diabetes, Acute bronchospasm, Chest pressure Instructions: ED Bronchitis with Wheezing (Adult) Prescriptions: New prednisone 20 mg tablet 60 mg PO DAILY Qty: 12 0RF doxycycline monohydrate 100 mg capsule 100 mg PO BID Qty: 14 0RF No Action cholecalciferol (vitamin D3) 50 mcg (2,000 unit) capsule 50 mcg PO DAILY Gemtesa 75 mg tablet 75 mg PO DAILY levothyroxine 100 mcg tablet 100 mcg PO QDAY dapagliflozin propanediol [Farxiga] 10 mg tablet 10 mg PO QDAY pregabalin 100 mg capsule 100 mg PO TID pyridostigmine bromide 60 mg tablet 60 mg PO BID Qty: 180 1RF folic acid 1 MG tablet 1 mg PO DAILY Patient Comments: SUPPLEMENT atorvastatin 10 mg tablet 5 mg PO .QOD ascorbic acid (vitamin C) [Vitamin C] 500 mg Tablet 500 mg PO DAILY hydrochlorothiazide 12.5 mg tablet 12.5 mg PO DAILY metformin 500 mg tablet extended release 24 hr 1,000 mg PO BID polysaccharide iron complex [Ferrex 150] 150 mg iron capsule 65 mg PO QODAY potassium chloride 20 mEq Tablet,Er Particles/Crystals 20 meq PO DAILYCM 30 Days Qty: 30 0RF losartan 100 mg Tablet 100 mg PO DAILY 30 Days Qty: 30 0RF oxycodone 5 mg Tablet 5 - 10 mg PO Q4H PRN PRN (Reason: Pain Score 4-10) 7 Days Qty: 84 0RF Papa (with collagen) 7-7-1.5 gram Powder In Packet 1 packet PO DAILY ciprofloxacin HCl 500 mg tablet 500 mg PO BID Qty: 30 0RF Primary Care Provider: Cherelle Thompson Referrals: Cherelle Thompson MD [Primary Care Provider] - 3-5 Days Print Language: [place] Disposition Disposition: Home, Self Care
[2025-02-18 16:45] LABS: Troponin T High Sensitivity 20 ng/L (<=14)
[2025-02-18 16:45] LABS: Lactic Acid 1.6 mmol/L (0.0-2.0)
[2025-02-18 16:47] LABS: ALB/GLOB Ratio 1.3 RATIO (0.9-2.4); AST(SGOT) 24 U/L (<=31); Alanine Aminotransfer ALT/SGPT 10 U/L (<=34); Albumin, Serum 4.3 g/dL (3.4-4.8); Alkaline Phosphatase 103 U/L (35-104); Anion Gap 12 (5-15); BUN 17 mg/dL (4-19); BUN/Creat Ratio 21.4 RATIO (10-20); Calcium,Total 9.7 mg/dL (7.6-11.0); Carbon Dioxide 23.6 mmol/L (21.0-32.0); Chloride 103 mmol/L (98-108); Creatinine, Serum 0.78 mg/dL (0.70-1.20); EST Glomerular Filtration Rate 79 (>60); Estimated Creatinine Clearance 57.07 ml/min (50-250); Globulin 3.3 g/dL (2.2-4.2); Glucose 129 mg/dL (70-99); Potassium 4.2 mmol/L (3.3-5.1); Protein, Total 7.5 g/dL (5.9-8.4); Sodium Level 138 mmol/L (133-145); Total Bilirubin 0.26 mg/dL (0.00-1.30)
[2025-02-18 18:42] LABS: Troponin T High Sens 2 HR 17 ng/L (<=14)
[2025-02-18 21:50] LABS: Troponin T High Sens 4 HR 17 ng/L (<=14)
[2025-02-18] MEDS: Albuterol Sulfate 8 gm Inhaler (60 puffs) 2 PUFF INHALATION (22:22)
[2025-02-18] MEDS: Doxycycline 100 MG CAPSULE PO (22:23)
[2025-02-18] MEDS: predniSONE 20 MG Tablet 60 MG PO (22:23)
== END 2025-02-18 22:26 | disposition home or self-care (01) ==
PROVIDERS: Emergency Provider Emergency Medicine; PCP Internal Medicine; Referring Provider Emergency Medicine; Visit Provider Emergency Medicine
DX: J42 Unspecified chronic bronchitis (principal); E11.40 Type 2 diabetes mellitus with diabetic neuropathy, unspecified; R07.89 Other chest pain; J98.01 Acute bronchospasm; I10 Essential (primary) hypertension; Z86.718 Personal history of other venous thrombosis and embolism; E78.5 Hyperlipidemia, unspecified; R06.02 Shortness of breath; K21.9 Gastro-esophageal reflux disease without esophagitis
CPT/HCPCS: 71046; 80053; 83605; 84484; 85025; 93005; 94640; 99284; A4216

== ENCOUNTER 2025-04-14 05:20 | Emergency (ER) | payer MEDICARE, SELFPAY ==
[2025-04-14] VITALS (12 sets, daily range): BP systolic 134–190; BP diastolic 63–71; PULSE 64–103; RESP 16–26; TEMP 36.4–36.8; O2SAT 97–100; BMI 32.7
--- NOTE | 2025-04-14 05:27 | EKG12_ITS ---
Test Reason : DYSRHYTHMIA Blood Pressure : */* mmHG Vent. Rate : 62 BPM Atrial Rate : 62 BPM P-R Int : 178 ms QRS Dur : 70 ms QT Int : 398 ms P-R-T Axes : 74 18 72 degrees QTcB Int : 403 ms Normal sinus rhythm Normal ECG Confirmed by Jere Gonzalez ([id number]), online editor DEONNA CACERES ([id number]) on 04/15/2025 1:45:53 PM Referred By: TB Confirmed By: Jere Gonzalez
--- NOTE | 2025-04-14 05:39 | EX.ED.DYSGE1 ---
HPI <Dr. Sammy Trent DO - Last Filed: 04/14/25 07:02> History of Present Illness Chief Complaint: Shortness of Breath Narrative Narrative: Patient is a 74-year-old female past medical history of myasthenia gravis, rheumatoid arthritis, DVT, hypertension, diabetes, dyslipidemia, hypothyroidism who presented to the emergency department the chief complaint of shortness of breath. Patient states that she woke up around 4 AM this morning noted that she had significant shortness of breath prompting her to come here to the emergency department to be further evaluated. Patient denies any recent travel history. Patient states that nothing makes her shortness of breath better or worse. [facility] <Dr. 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 Dehiscence of incision History of revision of total replacement of left knee joint Wears glasses Alcohol use History of steroid therapy Bladder disease Neuropathy Back pain Dietary restriction History of pain when walking Pain Myasthenia gravis Ambulates with cane Rheumatoid arthritis Low iron History of DVT (deep vein thrombosis) Hyperlipemia Difficulty swallowing History of hiatal hernia Gastric reflux Non-smoker Shortness of breath on exertion Chronic cough PONV (postoperative nausea and vomiting) Leg cramps History of edema History of stress test Hypertension Thyroid disease Cataracts, bilateral History of UTI Arthritis Home Medications ?Medication ?Instructions ?Recorded ?Last Taken ?Type folic acid 1 mg tablet 1 mg PO DAILY supplement 10/13/13 06/06/22 History atorvastatin 10 mg tablet 5 mg PO .QOD Cholesterol 09/06/21 06/26/24 18:45 History cholecalciferol (vitamin D3) 50 50 mcg PO DAILY supplement 09/06/21 06/27/24 History mcg (2,000 unit) capsule ascorbic acid (vitamin C) 500 mg 500 mg PO DAILY supplement 02/06/22 06/27/24 History tablet (Vitamin C) hydrochlorothiazide 12.5 mg tablet 12.5 mg PO DAILY Blood pressure 06/07/22 Unknown History vibegron 75 mg tablet (Gemtesa) 75 mg PO DAILY Overactive bladder 12/04/22 Unknown History metformin 500 mg tablet,extended 1,000 mg PO BID Diabetes 06/27/24 06/27/24 05:30 History release 24 hr polysaccharide iron complex 150 mg 65 mg PO QODAY Supplement 06/27/24 Unknown History iron capsule (Ferrex) losartan 100 mg tablet 100 mg PO DAILY bp 30 days #30 tabs 07/15/24 Unknown Rx oxycodone 5 mg tablet 5 - 10 mg (1 - 2 x 5 mg) PO Q4H 07/15/24 Unknown Rx PRN PRN Pain Score 4-10 7 days #84 tabs potassium chloride 20 mEq 20 meq PO DAILYCM supplement 30 07/15/24 Unknown Rx tablet,extended release(part/cryst) days #30 tabs arginine 7 gram-glutam 7 1 packet PO DAILY supplement 09/24/24 Unknown History gram-CaHMB 1.5 [id number] oral pwd pkt (Papa (with collagen)) ciprofloxacin HCl 500 mg tablet 500 mg PO BID #30 tabs 01/20/25 Unknown Rx dapagliflozin propanediol 10 mg 10 mg PO QDAY 02/03/25 Unknown History tablet (Farxiga) levothyroxine 100 mcg tablet 100 mcg PO QDAY 02/03/25 Unknown History pregabalin 100 mg capsule 100 mg PO TID 02/03/25 Unknown History doxycycline monohydrate 100 mg 100 mg PO BID #14 CAPSULES 02/18/25 Unknown Rx capsule prednisone 20 mg tablet 60 mg (3 x 20 mg) PO DAILY #12 02/18/25 Unknown Rx TABLETS pyridostigmine bromide 60 mg tablet 60 mg PO BID #180 tabs 03/13/25 Unknown Rx albuterol sulfate 90 mcg/actuation 2 puff inhalation Q4H PRN PRN 04/14/25 Unknown Rx aerosol inhaler (Ventolin HFA) Wheezing ##1 Allergy/AdvReac Type Severity Reaction Status Date / Time latex Allergy Severe Other Verified 04/14/25 05:24 shellfish derived Allergy Severe PASSED Verified 04/14/25 05:24 OUT, DIARRHEA adhesive Allergy Mild Rash Verified 04/14/25 05:24 levofloxacin AdvReac Intermediate WEAK, Verified 04/14/25 05:24 NAUSEA povidone AdvReac Mild Hives Verified 04/14/25 05:24 Surgical History Status post total left knee replacement History of bilateral cataract extraction History of colonoscopy S/P insertion of spinal cord stimulator History of partial thyroidectomy History of appendectomy History of left knee surgery History of hysterectomy History of cholecystectomy Social History household members: spouse housing: house Smoking Status: Never smoker Electronic Cigarette Use: not used second hand exposure: No alcohol intake: current alcohol intake frequency: a few times a month Alcohol type: wine substance use type: does not use ROS <Dr. Sammy Trent, - Last Filed: 04/14/25 07:02> ROS ED ROS Narrative Constitutional: Denies any fevers, chills, headaches Eyes: Denies double vision blurry vision changes in vision Cardiovascular: Denies chest pain Respiratory: Complains of shortness of breath denies coughing Abdomen: Denies nausea vomiting diarrhea : Denies any urinary symptoms Neurological: Denies any numbness, weakness, tingling Musculoskeletal: Denies back pain Skin: Denies any rashes or lesions EXAM <Dr. Sammy Trent, - Last Filed: 04/14/25 07:02> Physical Exam Narrative Exam Narrative: General: Patient lying in bed rest comfortably did not appear to be in acute distress Head: Atraumatic, normocephalic Eyes: PERRL bilaterally, EOMI bilateral, no conjunctival injection noted Neck: Soft, supple, trachea midline Cardiovascular: Regular rate and rhythm no murmurs gallops rubs noted Respiratory: Patient has end expiratory wheezing noted bilaterally Abdomen: Soft, nondistended, nontender to palpation Extremities: +5/5 strength noted in the bilateral upper and lower extremities, radial pulses +2/4 in the bilateral extremities, no pedal edema on exam Neurological: Patient follow commands and that she was at [facility] year is 2024 Skin: Warm, dry, intact no rashes or lesions noted Const Vital Signs: 04/14/25 05:21 04/14/25 05:26 04/14/25 05:27 Temperature 98.2 F Temperature Source Oral Pulse Rate 64 Respiratory Rate 26 H Respiratory Effort Short of Breath Respiratory Depth Deep Respiratory Pattern Tachypnea Blood Pressure 157/71 H Blood Pressure Mean 99 Pulse Ox 100 100 Oxygen Delivery Method Room Air Room Air Room Air 04/14/25 05:44 04/14/25 07:20 04/14/25 07:49 Temperature 97.5 F L Temperature Source Oral Pulse Rate 68 64 64 Respiratory Rate 22 H 19 H 16 Respiratory Effort Respiratory Depth Respiratory Pattern Tachypnea Normal Blood Pressure 151/70 H Blood Pressure Mean 97 Pulse Ox 100 Oxygen Delivery Method Room Air 04/14/25 09:00 04/14/25 11:00 04/14/25 11:32 Temperature 97.5 F L Temperature Source Pulse Rate 84 103 H 103 H Respiratory Rate 18 18 18 Respiratory Effort Respiratory Depth Respiratory Pattern Blood Pressure 190/64 H 138/63 H 138/63 H Blood Pressure Mean 106 88 88 Pulse Ox 98 97 97 Oxygen Delivery Method Room Air Room Air 04/14/25 12:11 Temperature Temperature Source Pulse Rate 98 Respiratory Rate 19 H Respiratory Effort Respiratory Depth Respiratory Pattern Blood Pressure 134/67 H Blood Pressure Mean 89 Pulse Ox 97 Oxygen Delivery Method Room Air <Dr. Yoni Torres MD - Last Filed: 04/14/25 12:42> Physical Exam Const Vital Signs: 04/14/25 05:21 04/14/25 05:26 04/14/25 05:27 Temperature 98.2 F Temperature Source Oral Pulse Rate 64 Respiratory Rate 26 H Respiratory Effort Short of Breath Respiratory Depth Deep Respiratory Pattern Tachypnea Blood Pressure 157/71 H Blood Pressure Mean 99 Pulse Ox 100 100 Oxygen Delivery Method Room Air Room Air Room Air 04/14/25 05:44 04/14/25 07:20 04/14/25 07:49 Temperature 97.5 F L Temperature Source Oral Pulse Rate 68 64 64 Respiratory Rate 22 H 19 H 16 Respiratory Effort Respiratory Depth Respiratory Pattern Tachypnea Normal Blood Pressure 151/70 H Blood Pressure Mean 97 Pulse Ox 100 Oxygen Delivery Method Room Air 04/14/25 09:00 04/14/25 11:00 04/14/25 11:32 Temperature 97.5 F L Temperature Source Pulse Rate 84 103 H 103 H Respiratory Rate 18 18 18 Respiratory Effort Respiratory Depth Respiratory Pattern Blood Pressure 190/64 H 138/63 H 138/63 H Blood Pressure Mean 106 88 88 Pulse Ox 98 97 97 Oxygen Delivery Method Room Air Room Air 04/14/25 12:11 Temperature Temperature Source Pulse Rate 98 Respiratory Rate 19 H Respiratory Effort Respiratory Depth Respiratory Pattern Blood Pressure 134/67 H Blood Pressure Mean 89 Pulse Ox 97 Oxygen Delivery Method Room Air MDM <Dr. Sammy Trent DO - Last Filed: 04/14/25 07:02> [facility] MDM Narrative Medical decision making narrative: Patient is a 74-year-old female who presents to the emergency department with a chief complaint shortness of breath. On the differential diagnosis includes but not limited to CHF, pneumothorax, pneumonia, ACS, myasthenic crisis. Once workup is obtained reviewed she will be reevaluated. Patient will be given a DuoNeb. Patient will be given 2 more DuoNebs. Patient CBC reviewed showed no evidence leukocytosis white blood count cell 0.9, hemoglobin stable 12.8, platelet count was noted to be normal at 343. Patient's ABG reviewed alkalosis with a pH 7.57 with a pCO2 of 22.9. Patient sodium normal 139, potassium normal 4.2, creatinine was noted to be 0.91. Patient's glucose was 181. Patient's troponin was 15 with a delta troponin pending. Patient's EKG reviewed showed sinus rhythm with a rate of 62 bpm. Patient proBNP was less than 36. Patient's TSH normal at 1.34 with a free T4 and T3 at 1.50 and 2.1 respectively. Patient chest x-ray reviewed by myself and by radiology and showed no acute cardiopulmonary processes. Given the patient's workup is largely unremarkable thus far and she is having significant shortness of breath and tachypnea will add a CTA of her chest on. Patient did ambulate in the emergency department and her oxygen level did drop to 91% she was symptomatic. Patient's case was signed out to oncoming provider see his note for ultimate details and disposition. Lab Data Labs: Laboratory Results - last 24 hr 04/14/25 04/14/25 04/14/25 05:40 07:35 09:55 WBC 7.9 RBC 4.85 Hgb 12.8 Hct 40.0 MCV 82.5 MCH 26.4 L MCHC 32.0 RDW Std Deviation 48.3 H RDW Coeff of April 16.1 H Plt Count 343 MPV 10.3 Immature Gran % (Auto) 0.300 Neut % (Auto) 57.6 Lymph % (Auto) 23.4 [place] % (Auto) 9.2 Eos % (Auto) 8.2 H Baso % (Auto) 1.3 H Absolute Neuts (auto) 4.6 Absolute Lymphs (auto) 1.85 Nucleated RBC % 0 Sodium 139 Potassium 4.2 Chloride 105 Carbon Dioxide 21.0 Anion Gap 13 BUN 15 Creatinine 0.91 Estim Creat Clear Calc 49.95 L Est GFR (MDRD) Non-Af 65 BUN/Creatinine Ratio 16.9 Glucose 181 H Calcium 9.6 Troponin T High Sens 15 H D Troponin T Hi Sens 2 Hr 17 H Troponin T Hi Sens 4Hr 14 NT pro BNP II < 36 TSH 1.340 Free T4 1.50 H Free T3 pg/dL 2.1 L ABG Data ABG results: ABG 04/14/25 05:58 Specimen Type ART Sample Site L Radial pH 7.57 H Bicarbonate Actual 21.0 L Total CO2 22 Base Excess -1 O2 Saturation 98 ABG pCO2 22.9 L ABG pO2 81 Temo Test Positive O2 Delivery Device Room Air Vent Mode Not entered Radiography Diagnostic Testing: Clinical Impression(s) from Imaging Studies Chest X-Ray 04/14/25 06:06 IMPRESSION: No acute process is identified in the chest. Reading Location: [facility] Chest CTA 04/14/25 06:52 IMPRESSION: No large pulmonary embolism. Chronic findings as described. Reading Location: [id number] <Dr. Yoni Torres MD - Last Filed: 04/14/25 12:42> [facility] Lab Data Attestation: I reviewed the patient's lab results. Lab results narrative: CBC is unremarkable. Basic metabolic panel reveals a glucose of 181 with normal CO2 anion gap. First troponin is elevated 15. She had an elevated troponin January of this year. It was 20. BNP is less than 36. TSH is low end of normal. Free T4 slightly elevated. Free T3 is low. Labs: Laboratory Results - last 24 hr 04/14/25 04/14/25 04/14/25 05:40 07:35 09:55 WBC 7.9 RBC 4.85 Hgb 12.8 Hct 40.0 MCV 82.5 MCH 26.4 L MCHC 32.0 RDW Std Deviation 48.3 H RDW Coeff of April 16.1 H Plt Count 343 MPV 10.3 Immature Gran % (Auto) 0.300 Neut % (Auto) 57.6 Lymph % (Auto) 23.4 [place] % (Auto) 9.2 Eos % (Auto) 8.2 H Baso % (Auto) 1.3 H Absolute Neuts (auto) 4.6 Absolute Lymphs (auto) 1.85 Nucleated RBC % 0 Sodium 139 Potassium 4.2 Chloride 105 Carbon Dioxide 21.0 Anion Gap 13 BUN 15 Creatinine 0.91 Estim Creat Clear Calc 49.95 L Est GFR (MDRD) Non-Af 65 BUN/Creatinine Ratio 16.9 Glucose 181 H Calcium 9.6 Troponin T High Sens 15 H D Troponin T Hi Sens 2 Hr 17 H Troponin T Hi Sens 4Hr 14 NT pro BNP II < 36 TSH 1.340 Free T4 1.50 H Free T3 pg/dL 2.1 L 2-hour troponin was 17 with a delta of +2. 4-hour troponin is 14 with a delta of -3. ABG Data Attestation: I personally reviewed and interpreted this ABG as follows: Interpretation: This would increase likelihood for pulmonary embolus. This also could be due to hypoventilation syndrome. Review of her records indicates she has ocular myasthenia gravis. Do not feel her presentation is due to a myasthenia gravis crisis. Furthermore review of her prior records indicates she has history of DVT. ABG results: ABG 04/14/25 05:58 Specimen Type ART Sample Site L Radial pH 7.57 H Bicarbonate Actual 21.0 L Total CO2 22 Base Excess -1 O2 Saturation 98 ABG pCO2 22.9 L ABG pO2 81 Temo Test Positive O2 Delivery Device Room Air Vent Mode Not entered Radiography Diagnostic Testing: Clinical Impression(s) from Imaging Studies Chest X-Ray 04/14/25 06:06 IMPRESSION: No acute process is identified in the chest. [facility] 04/14/25 06:52 IMPRESSION: No large pulmonary embolism. Chronic findings as described. Reading Location: [id number] Treatment and Re-Evaluation :: I was informed by the phlebotomy tech that she has an allergy to IV contrast. The contrast protocol was initiated. Comments:: Patient did not desaturate with ambulation. She states she was short of breath and felt as if she was going to fall. Confirmed that patient's myasthenia gravis only affects her eyes. She was told that the cause of her shortness of breath hyperventilation etc. is unknown. Since her workup is unremarkable she was discharged to home. Vital Sign Attestation:: Negative and story force was -35. This is normal. Apparently he request to speak with Chantale Raya. I was informed by patient's nurse that the patient would like to speak with me again and why I am sending her home with a heart rate in the 90s. The states he was told by someone that she had wheezing. She has been examined by me twice. I have not heard wheezing. She was tachypneic when she arrived. Review of Dr. Trent's note reveals that she had and expiratory wheezing only. Since patient is reporting improvement with nebulizer treatment will send home with prescription for inhaler. Since her symptoms been less than 5 days there is no indication for antibiotics. Discharge Plan Triage Chief Complaint: Shortness of Breath ED Provider: Sammy Trent Dx/Rx/DC Orders Clinical Impression: Shortness of breath, HTN (hypertension), Diabetes, Dyslipidemia, Hypothyroidism, Tachypnea, Hx of myasthenia gravis, Acute hyperventilation, Weakness generalized, Expiratory wheezing Instructions: ED Dyspnea, ED Hyperventilation Syndrome Prescriptions: New albuterol sulfate [Ventolin HFA] 90 mcg/actuation HFA aerosol inhaler 2 puff inhalation Q4H PRN PRN (Reason: Wheezing) Qty: 1 0RF No Action cholecalciferol (vitamin D3) 50 mcg (2,000 unit) capsule 50 mcg PO DAILY Gemtesa 75 mg tablet 75 mg PO DAILY levothyroxine 100 mcg tablet 100 mcg PO QDAY dapagliflozin propanediol [Farxiga] 10 mg tablet 10 mg PO QDAY pregabalin 100 mg capsule 100 mg PO TID folic acid 1 MG tablet 1 mg PO DAILY Patient Comments: SUPPLEMENT atorvastatin 10 mg tablet 5 mg PO .QOD ascorbic acid (vitamin C) [Vitamin C] 500 mg Tablet 500 mg PO DAILY hydrochlorothiazide 12.5 mg tablet 12.5 mg PO DAILY metformin 500 mg tablet extended release 24 hr 1,000 mg PO BID polysaccharide iron complex [Ferrex 150] 150 mg iron capsule 65 mg PO QODAY potassium chloride 20 mEq Tablet,Er Particles/Crystals 20 meq PO DAILYCM 30 Days Qty: 30 0RF losartan 100 mg Tablet 100 mg PO DAILY 30 Days Qty: 30 0RF oxycodone 5 mg Tablet 5 - 10 mg PO Q4H PRN PRN (Reason: Pain Score 4-10) 7 Days Qty: 84 0RF Papa (with collagen) 7-7-1.5 gram Powder In Packet 1 packet PO DAILY ciprofloxacin HCl 500 mg tablet 500 mg PO BID Qty: 30 0RF prednisone 20 mg tablet 60 mg PO DAILY Qty: 12 0RF doxycycline monohydrate 100 mg capsule 100 mg PO BID Qty: 14 0RF pyridostigmine bromide 60 mg tablet 60 mg PO BID Qty: 180 1RF Primary Care Provider: Cherelle Thompson Referrals: Cherelle Thompson MD [Primary Care Provider] - 1-2 Days if not improving Print Language: [place]i Disposition Disposition: Home, Self Care
[2025-04-14 05:52] LABS: Hematocrit 40.0 % (37-47); Hemoglobin 12.8 g/dL (12.0-15.0); Immature Granulocytes Count 0.020 X10^3/uL (0.0-0.0); Mean Corp Hgb Conc 32.0 g/dL (32-36); Mean Corpuscular Volume 82.5 fL (81-99); Mean Platelet Vol. 10.3 fl (6.2-12.0); NRBC Flagged by Analyzer 0 % (0-5); Platelet Count 343 K/mm3 (150-450); RBC Distribution Width CV 16.1 % (11.6-14.6); RBC Distribution Width SD 48.3 fl (35.1-43.9); Red Blood Count 4.85 M/mm3 (4.2-5.4); White Blood Count 7.9 K/mm3 (4.4-11.0)
--- OUTSIDE RECORDS SUMMARY | 2025-04-14 05:59 | XMS RPT_ITS | CCD ---
Author Organization [facility] CliniSyde Care Team Providers Care Director Broadcast Name Role Phone Dr. Kvng Fung Primary Care Provider Dr. Kvng Fung Referring Provider Dr. Drew Steele Attending Provider Dr. Kvng Fung Primary Care Provider Dr. Kvng Camara Attending Provider Dr. Adan Price Referring Provider [phone] Kvng Fung Primary Care Provider Dr. Kvng Fung Referring Provider Dr. Drew Steele Attending Provider Dr. Adan Price Admnicola Provider Dr. Adan Price Referring Provider Dr. Adan Price Other Provider Dr. Rudy Gabriel Other Provider Alhaji CARLSON, ZANDER Young Attending Provider Dr. Jessica Saba Attending Provider Dr. Kvng Fung Primary Care Provider Dr. Adan Priceit Provider Dr. Adan Price Referring Provider Dr. Adan Price Other Provider Dr. Rudy Gabriel Other Provider Dr. Jessica Saba Attending Provider Aashish Bahena MD Primary Care Provider Aashish Bahena MD Primary Care Provider Brady ANTIQUE AUTOMOBILES REPAIRER.SHOE STITCHER, Yuri Unavailable Dean ANTIQUE AUTOMOBILES REPAIRER.OPENING MACHINE CLEANER, Piter Unavailable Dean ANTIQUE AUTOMOBILES REPAIRER.OPENING MACHINE CLEANER, Piter Unavailable PROVIDER, UNKNOWN Referring Unavailable AASHISH BAHENA Primary Care Unavailable PROVIDER, UNKNOWN Referring Unavailable AASHISH BAHENA Primary Care Unavailable AASHISH BAHENA Primary Care Unavailable Jay WANG, Dr. Aashish Ortega Primary Care Provider [phone] Alvin WANG, Dr. Anthony Ye Attending Provider Alvin WANG, Dr. Anthony Ye Other Provider Alexia 3D DESIGNER-C, Hal Referring Provider Dr. Julissa Weinberg DO Emergency Provider Dr. Enriqueta Knight DO Admit Provider Dr. Enriqueta Knight DO Other Provider Dr. Isreal Cuenca MD Attending Provider Unavaila [facility] Poly WANG, Dr. Field Other Provider Dr. Enriqueta Knight DO Attending Provider Dr. Isreal Cuenca MD Other Provider Unavailable Jay WANG, Dr. Aashish Ortega Referring Provider Dr. Drew Steele MD Attending Provider [phone] Jay WANG, Dr. Aashish Ortega Primary Care Provider Dr. Anthony Esquivel MD Attending Provider Alvin WANG, Dr. Anthony Ye Other Provider Alexia 3D DESIGNER-C, Hal Referring Provider Carmelo 3D DESIGNER-C, Betty Attending Provider Yolie 3D DESIGNER-CCrystal Attending Provider Jay WANG, Dr. Aashish Ortega Primary Care Provider Alvin WANG, Dr. Anthony Ye Attending Provider Alvin WANG, Dr. Anthony Ye Other Provider Gratejeannette 3D DESIGNER-C, Hal Referring Provider Zhen WANG, Dr. Quigley Attending Provider Zhen WANG, Dr. Quigley Referring Provider Jay WANG, Dr. Aashish Ortega Primary Care Provider Alvin WANG, Dr. Anthony Ye Attending Provider Gratejeannette 3D DESIGNER-C, Hal Referring Provider Alvin WANG, Dr. Anthony Ye Other Provider Dean ANTIQUE AUTOMOBILES REPAIRER.OPENING MACHINE CLEANER, Piter Unavailable Jose Antonio ANTIQUE AUTOMOBILES REPAIRER.SHOE STITCHER, Yuri Unavailable Brian WANG, Dr. Vallejo Referring Provider Brian WANG, Dr. Vallejo Emergency Provider TALAMPAS, AASHISH D Primary Care Unavailable DEAN, PITER Attending Unavailable TALAMPAS, AASHISH D Primary Care Unavailable PERFECTOR HAL Attending Unavailable TALAMPAS, AASHISH D Primary Care Unavailable BRADY, YURI Attending Unavailable TALAMPAS, AASHISH D Primary Care Unavailable GRATER HAL Attending Unavailable TALAMPAS, AASHISH D Primary Care Unavailable GRATER HAL Attending Unavailable TALAMPAS, AASHISH D Primary Care Unavailable TALAMPAS, AASHISH D Attending Unavailable TALAMPAS, AASHISH D Primary Care Unavailable MART ENCISO Attending Unavailable TALAMPAS, AASHISH D Primary Care Unavailable LEORA JAEGER Referring Unavailable TALAMPAS, AASHISH D Primary Care Unavailable PADUBIDRI, URBAN Attending Unavailable TALAMPAS, AASHISH D Primary Care Unavailable PADUBIDRI, URBAN Attending Unavailable TALAMPAS, AASHISH D Primary Care Unavailable SURVIKAS PETER Attending Unavailable TALAMPAS, AASHISH D Primary Care Unavailable TALAMPAS, AASHISH D Attending Unavailable TALAMPAS, AASHISH D Primary Care Unavailable MART ENCISO Attending Unavailable RAKESH LOPEZ Attending Unavailable TALAMPAS, AASHISH D Primary Care Unavailable TALAMPAS, AASHISH D Primary Care Unavailable LOPEZ, RAKESH J Referring Unavailable TALAMPAS, AASHISH D Primary Care Unavailable PADUBIDRI, URBAN Attending Unavailable TALAMPAS, AASHISH D Primary Care Unavailable TALAMPAS, AASHISH D Primary Care Unavailable MART ENCISO Referring Unavailable TALAMPAS, AASHISH D Primary Care Unavailable SHIRA UNGER Attending Unavailable TALAMPAS, AASHISH D Primary Care Unavailable PERFECTOR HAL Attending Unavailable TALAMPAS, AASHISH D Primary Care Unavailable GRATER HAL Attending Unavailable TALAMPAS, AASHISH D Primary Care Unavailable GRATER HAL Attending Unavailable TALAMPAS, AASHISH D Primary Care Unavailable PADUBIDRI, URBAN Attending Unavailable TALAMPAS, AASHISH D Primary Care Unavailable MART ENCISO Attending Unavailable MART ENCISO Admitting Unavailable TALAMPAS, AASHISH D Primary Care Unavailable PITER MORAN Referring Unavailable TALAMPAS, AASHISH D Primary Care Unavailable TALAMPAS, AASHISH D Referring Unavailable Enriqueta Knight Consulting Unavailable Talampas, Aashish D Primary Care Unavailable Enriqueta Knight Admitting Unavailable Enriqueta Knight Attending Unavailable Isreal Cuenca Attending Unavailable Isreal Cuenca Consulting Unavailable Talampas, Aashish D Primary Care Unavailable Dann Fontaine Referring Unavailable Dann Fontaine Attending Unavailable Emir Pang Consulting Unavailable Drew Steele Attending Unavailable Talampas, Aashish D Primary Care Unavailable Talampas, Aashish D Referring Unavailable Crystal Urbano Attending Unavailable Talampas, Aashish D Primary Care Unavailable Talampas, Aashish D Referring Unavailable Torres, Yoni Referring Unavailable Torres Yoni Attending Unavailable Talampas, Aashish D Primary Care Unavailable Anthony Esquivel Attending Unavailable Talampas, Aashish D Primary Care Unavailable Grater, Hal Referring Unavailable Anthony Esquivel Attending Unavailable Talampas, Aashish D Primary Care Unavailable Perfector, Hal Referring Unavailable Isreal Cuenca Attending Unavailable Enriqueta Knight Admitting Unavailable Enriqueta Knight Consulting Unavailable Talampas, Aashish D Primary Care Unavailable Emir Pang Consulting Unavailable Jacob, Leo Chi Admitting Unavailable Talampas, Aashish D Primary Care Unavailable Jacob, Leo Chi Referring Unavailable Jacob, Leo Chi Attending Unavailable Anthony Esquivel Attending Unavailable Talampas, Aashish D Primary Care Unavailable Grater, Hal Referring Unavailable Esquivel, Anthony A Attending Unavailable Grater, Hal Referring Unavailable Talampas, Aashish D Primary Care Unavailable Esquivel, Anthony A Attending Unavailable Talampas, Aashish D Primary Care Unavailable Grater, Hal Referring Unavailable Esquivel, Anthony A Attending Unavailable Talampas, Aashish D Primary Care Unavailable Grater, Hal Referring Unavailable Esquivel, Anthony A Attending Unavailable Talampas, Aashish D Primary Care Unavailable Grater, Hal Referring Unavailable Esquivel, Anthony A Attending Unavailable Talampas, Aashish D Primary Care Unavailable Grater, Hal Referring Unavailable Allergies Allergy Classification Reported Allergen(s) Allergy Type Date of Onset Reaction(s) Facility Adhesive Tape (1 source) Adhesive Tape Substance Allergy 5 Other: See Comments [facility] HMG-CoA Reductase Inhibitors (statins) (1 source) Simvastatin Drug Allergy 6 Myalgia [facility] Work Phone: Iodine (and Iodine containting drugs) (1 source) Iodine Drug Allergy 5 [facility] Quinolones (antibiotic) (1 source) levoFLOXacin Drug Allergy 4 Vomiting [facility] Shellfish (1 source) Shellfish Food Allergy 4 GI Upset [facility] Work Phone: (15 sources) Adhesive agent; Translations: [adhesive] Allergy to substance 2 Rash [facility] (20 sources) levoFLOXacin; Translations: [LEVOFLOXACIN] Drug Allergy 4 Vomiting [facility] (14 sources) Povidone Drug Allergy 2 Hives [facility] Comment on above: HIVES TO TOPICAL (20 sources) Shellfish; Translations: [SHELLFISH DERIVED] Allergy to substance 2 GI Upset [facility] Work Phone: (20 sources) Latex; Translations: [LATEX] Allergy to substance 2 Other: See Comments [facility] Comment on above: takes a layer of sk in off (20 sources) Adhesive Tape; Translations: [ADHESIVE TAPE (ROSINS)] Allergy to substance 5 Other: See Comments [facility] Work Phone: (20 sources) Iodine; Translations: [IODINE] Drug Allergy 5 [facility] (20 sources) Simvastatin; Translations: [SIMVASTATIN] Drug Allergy 6 Myalgia [facility] Work Phone: (1 source) soft shell seafoodshrimp &crab [Other] Propensity to adverse reactions 5 [facility] Work Phone: (1 source) Latex Drug allergy (disorder) 5 [facility] Repository (1 source) levoFLOXacin Drug Allergy 5 [facility] Repository (1 source) Povidone Drug Allergy 5 [facility] Repository Medications Current Medications Medication Drug Class(es) Dates Sig (Normalized) Sig (Original) acetaminophen 325 mg / oxyCODONE hydrochloride 5 mg oral tablet (20 sources) Opioid Agonist Start: 12-01-2024 take 0.5-1 tablets by mouth three times daily as needed for pain oxyCODONE-acetami nophen (PERCOCET) 5-325 mg tablet TAKE 1/2 TO 1 TABLET BY MOUTH THREE TIMES DAILY NEEDED FOR PAIN 12/01/2024 Active Start: 02-27-2024 oxyCODONE-acet aminophen (PERCOCET) 5-325 mg tablet as needed. 02/27/2024 Suspended amoxicillin 875 mg / clavulanate 125 mg oral tablet (5 sources) Penicillin-class Antibacterial Start: 07-24-2024 End: 08-07-2024 take 1 tablet by mouth every twelve hours amoxicillin-clavulanate potassium (AUGMENTIN) 875-125 mg per tablet Take 1 tablet by mouth every 12 hours for 14 days. 28 tablet 07/24/2024 08/07/2024 Active Lesaa-Mrnr-Hpgn v-Ojdqhn-Cq-Min (Shwetha (With Collagen)) 7-7-1.5 gram Powder In Packet (10 sources) Start: 09-24-2024 [place]-Musn-Hfbkh-Collag-Mv -Min (Shwetha (With Collagen)) 7-7-1.5 gram Powder In Packet Active 1 NMA PO DAILY September 24, 2024 1:00am Start: 07-15-2024 End: 09-24-2024 Fdzcx-Tupe-Qggvn-Collag-Mv-M in (Shwetha (With Collagen)) 7-7-1.5 gram Powder In Packet Discontinued 1 NMA PO TWICE DAILY WITH MEALS 60 July 15, 2024 12:00am September 24, 2024 1:08am Pgeuwomd-Htrejdifh-Nltphtp H MB (SHWETHA) 7-7-1.5 gram pwpk (20 sources) Arginine-Glutami ne-Calcium HMB (SHWETHA) 7-7-1.5 gram pwpk Take 1 Packet by mouth as needed. Active Arginine-Glutami ne-Calcium HMB (SHWETHA) 7-7-1.5 gram pwpk Take 1 Packet by mouth once daily. Active ascorbic acid 500 mg oral tablet (20 sources) Vitamin C Start: 02-06-2022 take 1 tablet by mouth once daily Ascorbic Acid (Vitamin C) (Vitamin C) 500 mg Tablet Active 500 mg PO DAILY February 06, 2022 12:00am Comment on above: Take 500 mg by mouth once daily. atorvastatin 10 mg oral tablet (20 sources) HMG-CoA Reductase Inhibitor Start: 04-28-2024 End: 10-17-2024 take 0.5 tablet by mouth every other day for hyperlipidemia atorvastatin (LIPITOR) 10 mg tablet Indications: Pure hypercholesterolemia Take 0.5 tablets by mouth every other day. For cholesterol. 45 tablet 3 10/17/2024 Active Start: 04-03-2023 End: 04-26-2024 take 0.5 tablet by mouth every other day for hyperlipidemia atorvastatin (LIPITOR) 10 mg tablet Indications: Pure hypercholesterolemia Take 0.5 tablets by mouth every other day. For cholesterol. 04/03/2023 04/26/2024 Discontinued Start: 09-06-2021 take 5 mg by mouth e very other day Atorvastatin 10 mg tablet Active 5 mg PO .QOD September 06, 2021 10:25am Start: 09-06-2021 take 5 mg by mouth e very other day Atorvastatin Active 5 MG PO .QOD September 06, 2021 10:25am Start: 05-05-2018 End: 09-06-2021 take 1 tablet by mouth at bedtime Atorvastatin 10 MG tablet Discontinued 10 mg PO AT BEDTIME May 05, 2018 12:00am September 06, 2021 10:29am Start: 04-05-2016 End: 04-03-2023 take 0.5 tablet by mouth once daily at bedtime for hyperlipidemia atorvastatin (LIPITOR) 10 mg tablet Indications: Pure hypercholesterolemia Take 0.5 tablets by mouth daily at bedtime. For cholesterol. 90 tablet 3 04/05/2016 04/03/2023 Discontinued (Adjust Sig - Block E-Cancel) Comment on above: Take 0.5 tablets by mouth every other day. For cholesterol. Take 0.5 tablets by mouth daily at bedtime. For cholesterol. betamethasone 0.5 mg/ml / clotrimazole 10 mg/ml topical cream (7 sources) Azole Antifungal, Corticosteroid Start: End: clotrimazole-betameth asone (LOTRISONE) cream Apply to affected area two times a day. 45 g 3 04/28/2024 05/28/2024 Active cholecalciferol 0.05 mg oral capsule (20 sources) Vitamin D Start: take 1 capsule by mouth once daily Cholecalciferol (Vitamin D3) 50 mcg (2,000 unit) capsule Active 50 ug PO DAILY September 06, 2021 1:00am take 1 tablet by mouth once archie y Cholecalciferol, Vitamin D3, (VITAMIN D-3) 2,000 unit Tab Take 1 tablet by mouth once daily. Active Comment on above: Take 1 tablet by julianne once daily. ciprofloxacin 500 mg oral tablet (20 sources) Quinolone Antimicrobial Start: 12-07-19 End: 02-04-20 take 1 tablet by mouth every twelve hours Ciprofloxacin Hcl 500 mg tablet Discontinued 500 mg PO Q12H December 06, 2024 12:00am February 03, 2025 2:08pm Start: 09-29-2024 End: 02-03-2025 take 1 tablet by mouth twice daily Ciprofloxacin Hcl 500 mg tablet Active 500 mg PO TWICE A DAY January 20, 2025 12:00am collagenase 0.25 unt/mg topical ointment (20 sources) Collagen-specific Enzyme Start: 07-23-2024 TONY L ointment 07/23/2024 Active Start: 07-23-2024 SANTYL ointmen t apply A NICKEL THICKNESS LAYER to affected area once daily 07/23/2024 Active dapagliflozin 10 mg oral tablet (20 sources) Sodium-Glucose Cotransporter 2 Inhibitor Start: 01-17-2023 End: 10-17-2024 take 1 tablet by mouth once daily Dapagliflozin Propanediol (Farxiga) 10 mg tablet Active 10 mg PO daily February 03, 2025 12:00am Start: 02-06-2022 End: 02-03-2025 take 1 tablet by mouth once daily Dapagliflozin Propanediol (Farxiga) 5 mg tablet Discontinued 10 mg PO DAILY May 25, 2022 1:13pm February 03, 2025 2:10pm Comment on above: Take 1 tablet by julianne th once daily. doxycycline monohydrate 100 mg oral capsule (20 sources) Tetracycline-cla ss Drug Start: 02-18-2025 take 1 capsule by mouth twice daily Doxycycline Monohydrate 100 mg capsule Active 100 mg PO TWICE A DAY 14 February 18, 2025 12:00am Start: 07-15-2024 End: 10-02-2024 take 1 capsule by mouth twice daily Doxycycline Monohydrate 100 mg Capsule Discontinued 100 mg PO TWICE A DAY 120 60 July 15, 2024 12:00am September 24, 2024 1:05am Start: 06-27-2024 End: 09-18-2024 take 1 capsule by mouth every twelve hours Doxycycline Hyclate 100 mg capsule Discontinued 100 mg PO Q12H June 27, 2024 12:00am July 15, 2024 7:08pm fluconazole 100 mg oral tablet (3 sources) Azole Antifungal Start: 04-16-2024 End: 04-23-2024 fluconazole (DIFLUCAN) 100 mg tablet Take 1 tablet by mouth once daily for 7 days. Repeat in 3 days as needed. 7 tablet 0 04/16/2024 04/23/2024 Active folic acid 1 mg oral tablet (20 sources) Start: 10-13-2013 End: 10-13-2024 take 1 tablet by mouth once daily folic acid 1 mg tablet Take 1 tablet by mouth once daily. 90 tablet 3 10/13/2024 Active Comment on above: Take 1 tablet by julianne th once daily. GEMTESA 75 mg tablet (20 sources) Start: 02-27-2023 take 1 tablet by mouth once daily GEMTESA 75 mg tablet Take 1 tablet by mouth once daily. 02/27/2023 Suspended Start: 02-27-2023 take 1 tablet by julianne th once daily GEMTESA 75 mg tablet Take 1 tablet by mouth once daily. 02/27/2023 Active Start: 02-27-2023 take 1 tablet by julianne th once daily GEMTESA 75 mg tablet Take 1 tablet by mouth once daily. 0 02/27/2023 Active Comment on above: Take 1 tablet by julianne th once daily. hydroCHLOROthiazide 12.5 mg oral capsule (20 sources) Thiazide Diuretic Start: 2023 End: 2024 take 1 capsule by mouth once daily hydroCHLOROthiazide 12.5 mg capsule Indications: Primary hypertension Take 1 capsule by mouth once daily. 90 capsule 3 10/17/2024 Active Start: 06-07-2022 take 1 tablet by julianne th once daily Hydrochlorothiazide 12.5 mg tablet Active 12.5 mg PO DAILY June 07, 2022 12:00am Comment on above: Take 12.5 mg by mout h once daily. Take 1 capsule by mo uth once daily. Ibuprofen (12 sources) Nonsteroidal Anti-inflammatory Drug ibuprofen (ADVIL ORAL) Take by mouth. Active levothyroxine sodium 0.1 mg oral tablet (20 sources) l-Thyroxine Start: 04-03-20 End: 10-17-19 take 1 tablet by mouth once daily Levothyroxine 100 mcg tablet Active 100 ug PO daily February 03, 2025 12:00am Start: 05-25-2022 End: 02-03-2025 Levothyroxine 125 mcg tablet Discontinued 100 ug PO DAILY May 25, 2022 1:15pm February 03, 2025 2:09pm Start: 05-25-2022 take 100 ug by mouth once daily Levothyroxine Active 100 MCG PO DAILY May 25, 2022 1:15pm Start: 09-06-2021 End: 05-25-2022 take 1 tablet by mouth once daily Levothyroxine 125 mcg tablet Discontinued 125 ug PO DAILY September 06, 2021 1:00am May 25, 2022 1:15pm Start: 12-26-2016 End: 04-03-2023 take 1 tablet by mouth once daily, then take 1 tablet by mouth once daily levothyroxine (SYNTHROID) 112 mcg tablet Indications: Acquired hypothyroidism Take 1 tablet by mouth once daily. Take one tab daily 100 tablet 3 12/26/2016 04/03/2023 Discontinued (Adjust Sig - Block E-Cancel) Start: 10-13-2013 End: 09-06-2021 Levothyroxine (Synthroid) 11 2 MCG tablet Discontinued 125 ug PO DAILY October 13, 2013 1:00am September 06, 2021 10:29am Comment on above: Take 1 tablet by julianne th once daily. Take one tab daily losartan potassium 50 mg oral tablet (20 sources) Angiotensin 2 Receptor Kirk Start: 07-15-2024 take 1 tablet by mouth once daily Losartan 100 mg Tablet Active 100 mg PO DAILY July 15, 2024 12:00am Start: 06-07-2022 End: 10-17-2024 take 1 tablet by mouth once daily losartan (COZAAR) 50 mg tablet Indications: Controlled type 2 diabetes mellitus without complication, without long-term current use of insulin ([facility]) , Primary hypertension Take 1 tablet by mouth once daily. 90 tablet 3 10/17/2024 Active Start: 06-07-2022 End: 06-18-2023 Losartan Discontinued MG May 12:00am June 18, 2023 1:50pm Comment on above: Take 50 mg by mouth once daily. Take 1 tablet by julianne th once daily. Menthol / Zinc Oxide (20 sources) menthol/zinc oxi de (CALMOSEPTINE TOPICAL) Apply 1 Application to affected area two times a day. Active 24 hr metFORMIN hydrochloride 500 mg extended release oral tablet (20 sources) Biguanide Start: take 2 tablets by mouth twice daily metFORMIN ER (GLUCOPHAGE XR) 500 mg 24 hr tablet Take 2 tablets by mouth two times a day. Patient should start on June 21, 2024. 360 tablet 3 06/21/2024 Active Start: 06-21-2024 take 2 tablets by mo [facility] twice daily metFORMIN ER (GLUCOPHAGE XR) 500 mg 24 hr tablet Take 2 tablets by mouth two times a day. Patient should start on June 21, 2024. 360 tablet 3 06/21/2024 Suspended Start: 06-21-2024 take 2 tablets by mo uth twice daily metFORMIN ER (GLUCOPHAGE XR) 500 mg 24 hr tablet Take 2 tablets by mouth two times a day. Patient should start on June 21, 2024. 360 tablet 3 06/21/2024 Active Start: 09-28-2024 take 2 tablets by mo uth twice daily metFORMIN ER (GLUCOPHAGE XR) 500 mg 24 hr tablet Take 2 tablets by mouth two times a day. Patient should start on June 21, 2024. 360 tablet 3 06/21/2024 Active Start: 06-21-2024 take 2 tablets by mo uth twice daily metFORMIN ER (GLUCOPHAGE XR) 500 mg 24 hr tablet Take 2 tablets by mouth two times a day. Patient should start on June 21, 2024. 360 tablet 3 06/21/2024 Active Start: 06-21-2024 take 2 tablets by mo uth twice daily metFORMIN ER (GLUCOPHAGE XR) 500 mg 24 hr tablet Take 2 tablets by mouth two times a day. Patient should start on June 21, 2024. 360 tablet 3 06/21/2024 Active Start: 06-21-2023 End: 05-11-2024 take 2 tablets by mouth twice daily metFORMIN ER (GLUCOPHAGE XR) 500 mg 24 hr tablet Take 2 tablets by mouth two times a day. 360 tablet 3 06/21/2023 05/11/2024 Discontinued Start: 10-13-2013 take 2 tablets by mo ut twice daily metFORMIN ER (GLUCOPHAGE XR) 500 mg 24 hr tablet Take 2 tablets by mouth twice daily. 360 tablet 3 07/18/2016 Active Comment on above: Take 2 tablets by mo ut twice daily. Take 2 tablets by mo uth two times a day. Multivitamin preparation (9 sources) Start: 09-06-2021 take 1 tablet by mouth once daily Multivitamin Active 1 TABLET PO DAILY September 06, 2021 10:25am Start: 09-06-2021 End: 05-25-2022 take 1 tablet by mouth once daily Multivitamin Discontinued 1 TABLET PO DAILY September 06, 2021 12:00am May 25, 2022 12:16pm Start: 09-06-2021 End: 05-25-2022 take 1 tablet by mouth once daily Multivitamin Discontinued 1 TABLET PO DAILY September 06, 2021 1:00am May 25, 2022 1:16pm Start: 09-06-2021 [facility] Mult[facility] Active 1 TABLET PO DAILY September 06, 2021 1:00am oxyCODONE hydrochloride 5 mg oral tablet (20 sources) Opioid Agonist Start: 10-01-2024 End: 10-08-2024 take 1 tablet by mouth every twelve hours as needed for pain oxyCODONE IR (ROXICODONE) 5 mg immediate release tablet 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 for pain. 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 for pain. 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 for pain. 35 tablet 08/19/2024 08/26/2024 Active Start: 06-08-2022 End: 07-15-2024 take 5-10 mg by mouth every four hours as needed for pain Oxycodone 5 mg Tablet Active 5 - 10 mg PO EVERY 4 HOURS NEEDED as needed for Pain Score 4-10 84 7 July 15, 2024 Start: 10-28-2014 End: 01-14-2015 Oxycodone 5 MG tablet Discon tinued 5 mg PO DAILY as needed for MODERATE TO SEVERE PAIN October 28, 2014 1:00am January 14, 2015 9:59am daily and every 4 hours as needed for pain End: 08-19-2024 take 1-2 tablets by mouth every four hours as needed oxyCODONE IR (ROXICODONE) 10 mg tab Take 1-2 tablets by mouth every 4 hours as needed for pain (pain score 4-10). 08/19/2024 Discontinued potassium chloride 10 meq extended release oral capsule (20 sources) Start: 09-29-2024 End: 03-28-2025 potassium chloride SR (MICRO -K) 10 mEq CR capsule Take 2 capsules by mouth once daily. 180 capsule 3 10/20/2024 Active Start: 07-15-2024 take 1 tablet by julianne once daily at mealtime Potassium Chloride 20 mEq Tablet,Er Particles/Crystals Active 20 meq PO DAILY WITH MEALS July 15, 2024 12:00am End: 09-29-2024 take 20 mEq by mouth once daily potassium chloride (KLOR-CON M20 ORAL) Take 20 mEq by mouth once daily. 09/29/2024 Discontinued predniSONE 20 mg oral tablet (1 source) Start: 02-18-2025 take 3 tablets by mouth once daily Prednisone 20 mg tablet Active 60 mg PO DAILY February 18, 2025 12:00am pregabalin 100 mg oral capsule (20 sources) Start: 02-03-2025 take 1 capsule by mouth three times daily Pregabalin 100 mg capsule Active 100 mg PO THREE TIMES A DAY February 03, 2025 12:00am Start: 05-25-2022 End: 02-03-2025 Pregabalin (Lyrica) 75 mg ca psule Discontinued 100 mg PO THREE TIMES A DAY May 25, 2022 1:17pm February 03, 2025 2:11pm Start: 05-25-2022 take 1 capsule by mo [facility] three times daily Pregabalin (Lyrica) 75 mg capsule Active 75 MG PO THREE TIMES A DAY May 25, 2022 1:17pm Start: 09-06-2021 End: 05-25-2022 take 1 tablet by mouth once daily in the morning, then take 2 tablets by mouth once daily in the evening Pregabalin (Lyrica) 75 mg capsule Discontinued 75 mg PO TWICE A DAY September 06, 2021 1:00am May 25, 2022 1:17pm 1 tab PO QAM and 2 tabs PO QPM Comment on above: Take 100 mg by mouth three times daily. pyridostigmine bromide 60 mg oral tablet (20 sources) Start: take 1 tablet by mouth twice daily Pyridostigmine [place] 60 mg tablet Active 60 mg PO TWICE A DAY February 03, 2025 2:27pm Start: 12-18-2024 End: 02-03-2025 take 0.5 tablet by mouth once daily, then take 0.5 tablet by mouth twice daily, then take 1 tablet by mouth twice daily Pyridostigmine [place] 60 mg tablet Discontinued 0 .ROUTE .COMPLEX 180 December 18, 2024 12:00am February 03, 2025 2:28pm Take 1/2 tablet orally daily for 2 days then 1/2 tablet twice daily for 2 days then 1 tablet twice daily thereafter. Start: 12-04-2022 End: 10-17-2023 take 1 tablet by mouth once daily in the morning Pyridostigmine [place] 60 mg tablet Discontinued 60 mg PO EVERY MORNING 90 December 04, 2022 9:29am June 18, 2023 1:50pm Start: 03-08-2022 End: 12-04-2022 take 1 tablet by mouth twice daily Pyridostigmine [place] 60 mg tablet Discontinued 60 mg PO TWICE A DAY 180 December 01, 2022 6:14pm December 04, 2022 9:31am Start: 11-22-2021 End: 03-08-2022 Pyridostigmine [place] 60 mg tablet Discontinued 30 mg PO TWICE A DAY February 06, 2022 11:15am March 08, 2022 6:01pm Start: 11-22-2021 End: 03-08-2022 take 30 mg by mouth twice daily Pyridostigmine [place] Discontinued 30 MG PO TWICE A DAY February 06, 2022 11:15am March 08, 2022 6:01pm Start: 09-06-2021 End: 11-22-2021 take 0.5 tablet by mouth once daily, then take 0.5 tablet by mouth twice daily Pyridostigmine [place] 60 mg tablet Discontinued 30 mg PO .COMPLEX September 06, 2021 1:00am November 22, 2021 3:00pm 1/2 tablet PO daily for 1 week then 1/2 tablet twice a day thereafter Start: 09-06-2021 End: 11-22-2021 take 0.5 tablet by mouth once daily, then take 0.5 tablet by mouth twice daily Pyridostigmine [place] Discontinued 30 MG PO .COMPLEX September 06, 2021 1:00am November 22, 2021 3:00pm 1/2 tablet PO daily for 1 week then 1/2 tablet twice a day thereafter Comment on above: Take 1 tablet by julianne th once daily. Vibegron (6 sources) Start: 12-04-2022 take 1 tablet by mouth once daily Vibegron (Gemtesa) 75 mg tablet Active 75 mg PO DAILY December 04, 2022 12:00am Start: 12-04-2022 take 1 tablet by julianne th once daily Vibegron (Gemtesa) 75 mg tablet Active 75 MG PO DAILY December 04, 2022 12:00am Completed/Discontinued Medications Medication Drug Class(es) Dates Sig (Normalized) Sig (Original) acetaminophen 500 mg oral tablet (20 sources) Start: 07-15-2024 End: 09-23-2024 take 2 tablets by mouth every eight hours Acetaminophen 500 mg Tablet Discontinued 1000 mg PO EVERY 8 HOURS 0 July 15, 2024 12:00am September 24, 2024 12:59am Start: 06-27-2024 End: 07-04-2024 take 2 tablets by mouth every eight hours as needed acetaminophen (TYLENOL EXTRA STRENGTH) 500 mg tablet Take 2 tablets by mouth every 8 hours as needed for pain for up to 7 days. 42 tablet 06/27/2024 07/04/2024 Start: 06-08-2022 End: 07-15-2024 Acetaminophen 500 mg Tablet Discontinued 1000 mg PO EVERY 8 HOURS as needed for pain June 27, 2024 12:00am July 15, 2024 7:06pm Do not take more than 3000 mg Tylenol in a 24-hour period. Start: 06-08-2022 take 3000 mg by mout h every eight hours Acetaminophen Active 1000 MG PO EVERY 8 HOURS 180 June 08, 2022 12:00am Do not take more than 3000 mg Tylenol in a 24-hour period. Start: 10-05-2014 End: 01-14-2015 take 2 tablets by mouth three times daily Acetaminophen 500 MG tablet Discontinued 1000 mg PO THREE TIMES A DAY 0 October 05, 2014 1:00am January 14, 2015 10:01am Start: 10-05-2014 End: 01-14-2015 take 1000 mg by mouth three times daily Acetaminophen Discontinued 1000 MG PO THREE TIMES A DAY 0 October 05, 2014 1:00am January 14, 2015 10:01am take 1 tablet by julianne th every eight hours acetaminophen (TYLENOL EXTRA STRENGTH) 500 mg tablet Take 500 mg by mouth every 8 hours. Active apixaban 2.5 mg oral tablet (19 sources) Factor Xa Inhibitor Start: 06-27-2024 End: 09-24-2024 take 1 tablet by mouth twice daily Apixaban 2.5 mg tablet Discontinued 2.5 mg PO TWICE A DAY June 27, 2024 12:00am September 24, 2024 1:08am calcium ascorbate 50 mg / ferrous asparto glycinate 50 mg / polysaccharide iron complex 100 mg / succinic acid 50 mg oral capsule (20 sources) Start: 10-05-2014 End: 01-14-2015 Iron Aspgl,Ps Complex-Vit C-Sa (Ferrex 150 Plus) 150 MG capsule Discontinued 150 mg PO DAILY WITH MEALS October 28, 2014 1:00am January 14, 2015 10:00am cephalexin 500 mg oral capsule (10 sources) Cephalosporin Antibacterial Start: 09-26-2024 End: 02-03-2025 take 1 capsule by mouth every six hours Cephalexin 500 mg capsule Discontinued 500 mg PO EVERY 6 HOURS 28 September 26, 2024 1:00am February 03, 2025 2:07pm clonazePAM 1 mg oral tablet (14 sources) Benzodiazepine Start: 09-06-2021 End: 05-25-2022 take 1 tablet by mouth once daily as needed for anxiety Clonazepam 1 mg tablet Discontinued 1 mg PO DAILY as needed for Anxiety September 06, 2021 1:00am May 25, 2022 1:12pm diazePAM 2 mg oral tablet (14 sources) Benzodiazepine Start: 10-29-2014 End: 01-14-2015 take 1 tablet by mouth three times daily as needed for anxiety Diazepam 2 MG tablet Discontinued 2 mg PO 3 TIMES DAILY NEEDED as needed for Anxiety October 29, 2014 1:00am January 14, 2015 10:01am docusate sodium 100 mg oral capsule (20 sources) Start: 06-27-2024 End: 07-27-2024 take 1 capsule by mouth twice daily Docusate Sodium (Colace) 100 mg capsule Discontinued 100 mg PO TWICE A DAY June 27, 2024 12:00am July 15, 2024 7:07pm Start: 10-24-2013 End: 10-25-2013 take 1 capsule by mouth twice daily as needed for constipation Docusate Sodium (Colace) 100 MG capsule Discontinued 100 mg PO TWICE DAILY NEEDED as needed for Constipation October 24, 2013 1:00am October 25, 2013 5:09pm docusate sodium 50 mg / sennosides, fpc 8.6 mg oral tablet (20 sources) Start: 07-15-2024 End: 09-24-2024 Sennosides-Docusate Sodium (Stimulant Laxative Plus) 8.6-50 mg Tablet Discontinued 2 {tbl} PO TWICE A DAY 120 July 15, 2024 12:00am September 24, 2024 1:07am Start: 06-08-2022 End: 12-04-2022 Sennosides-Docusate Sodium ( Stool Softener-Stimulant Laxat) 8.6-50 mg Tablet Discontinued 2 {tbl} PO TWICE A DAY June 08, 2022 12:00am December 04, 2022 9:06am Take until first bowel movement, then as needed Start: 10-05-2014 End: 01-14-2015 take 1 tablet by mouth twice daily Sennosides-Docusate Sodium (Stool Softener-Stimulant Laxat) 1 TABLET tablet Discontinued 1 {tbl} PO TWICE A DAY October 16, 2014 12:06am January 14, 2015 9:58am empagliflozin 25 mg oral tablet (20 sources) Sodium-Glucose Cotransporter 2 Inhibitor End: 10-02-2024 take 1 tablet by mouth once daily at breakfast empagliflozin (JARDIANCE) 25 mg tablet Take 25 mg by mouth daily with breakfast. 10/02/2024 Discontinued 0.4 ml enoxaparin sodium 100 mg/ml prefilled syringe (14 sources) Low Molecular Weight Heparin Start: 10-27-2014 End: 01-14-2015 Enoxaparin 40 MG/0.4 ML syringe Discontinued 40 mg SC DAILY@0600 14 October 27, 2014 1:00am January 14, 2015 10:01am ferrous sulfate 325 mg oral tablet (20 sources) Start: 02-06-2022 End: 07-15-2024 take 1 tablet by mouth once daily Ferrous Sulfate 325 mg (65 mg iron) Tablet Discontinued 325 mg PO DAILY February 06, 2022 12:00am July 15, 2024 7:08pm End: 04-16-2024 take 1 tablet by mouth every other day ferrous sulfate (IRON) 325 mg (65 mg iron) tablet Take 325 mg by mouth every other day. 04/16/2024 Discontinued Comment on above: Take 325 mg by mouth every other day. gabapentin 300 mg oral capsule (1 source) Anti-epileptic Agent Start: 07-05-201 7 End: 3 take 1 capsule by mouth twice daily gabapentin (NEURONTIN) 300 mg capsule Take 1 capsule by mouth twice daily. 180 capsule 1 03/28/2017 04/03/2023 Discontinued Comment on above: Take 1 capsule by mo [facility] twice daily. glimepiride 4 mg oral tablet (20 sources) Sulfonylurea Start: End: 5 take 1 tablet by mouth twice daily Glimepiride 4 mg tablet Discontinued 4 mg PO TWICE A DAY September 06, 2021 1:00am September 26, 2024 2:53pm Start: 05-05-2018 End: 09-06-2021 take 2 tablets by mouth once daily Glimepiride 1 MG tablet Discontinued 2 mg PO DAILY May 05, 2018 12:00am September 06, 2021 10:26am Start: 05-05-2018 End: 09-06-2021 take 2 mg by mouth once daily Glimepiride Discontinued 2 MG PO DAILY May 05, 2018 12:00am September 06, 2021 10:26am Comment on above: Take 1 tablet by julianne twice daily. Take 1 tablet by julianne two times a day. hydroCHLOROthiazide 12.5 mg / losartan potassium 50 mg oral tablet (20 sources) Thiazide Diuretic, Angiotensin 2 Receptor Kirk Start: 03-04-2019 End: 07-11-2024 losartan-hydroCHLOROth iazide (HYZAAR) 50-12.5 mg per tablet Take by mouth. 03/04/2019 07/11/2024 Discontinued Start: 03-04-2019 End: 07-15-2024 Losartan-Hydrochlorothiazide 1 EACH tablet Discontinued 1 NMA PO DAILY March 04, 2019 12:00am July 15, 2024 7:09pm Start: 03-04-2019 Losartan-Amasa chlorothiazide Active 1 EACH PO DAILY March 04, 2019 12:00am hydroCHLOROthiazide 12.5 mg / valsartan 160 mg oral tablet (1 source) Thiazide Diuretic, Angiotensin 2 Receptor Kirk Start: 03-28-2017 End: 04-03-2023 take 1 tablet by mouth once daily Valsartan-Hydrochlorothiazide (DIOVAN HCT) 160-12.5 mg per tablet Take 1 tablet by mouth once daily. 90 tablet 0 03/28/2017 04/03/2023 Discontinued Comment on above: Take 1 tablet by jluianne once daily. HYDROmorphone hydrochloride 2 mg oral tablet (20 sources) Opioid Agonist Start: 09-24-2014 End: 10-28-2014 take 2-4 mg by mouth every four hours as needed for pain Hydromorphone 2 MG tablet Discontinued 2 - 4 mg PO EVERY 4 HOURS NEEDED as needed for PAIN October 05, 2014 1:00am October 28, 2014 11:59am Start: 10-24-2013 End: 11-03-2013 take 1 tablet by mouth every six hours as needed for pain Hydromorphone 2 MG tablet Discontinued 2 mg PO EVERY 6 HOURS as needed for Pain October 24, 2013 1:00am November 03, 2013 11:53am magnesium citrate (17 sources) End: 08-22-2024 take 300 mL by mouth once daily as needed for constipation MAGNESIUM CITRATE ORAL Take 300 mL by mouth once daily as needed (constipation). 08/22/2024 Discontinued take 300 mL by mouth once daily as needed for constipation MAGNESIUM CITRATE ORAL Take 300 mL by mo [facility] once daily as needed (constipation). Active meloxicam 7.5 mg oral tablet (15 sources) Nonsteroidal Anti-inflammatory Drug Start: 12-26-2016 End: 04-03-2023 take 1 tablet by mouth once daily Meloxicam 7.5 MG tablet Discontinued 7.5 mg PO DAILY May 05, 2018 12:00am June 08, 2022 10:27am Comment on above: [facility] methocarbamol 500 mg oral tablet (17 sources) Muscle Relaxant Start: 06-27-2024 End: 09-24-2024 take 1 tablet by mouth three times daily Methocarbamol 500 mg tablet Discontinued 500 mg PO THREE TIMES A DAY June 27, 2024 12:00am September 24, 2024 1:06am metoclopramide 10 mg oral tablet (14 sources) Dopamine-2 Receptor Antagonist Start: 10-25-2013 End: 11-03-2013 take 1 tablet by mouth three times daily Metoclopramide Hcl 10 MG tablet Discontinued 10 mg PO THREE TIMES A DAY October 25, 2013 1:00am November 03, 2013 12:00pm morphine sulfate 15 mg extended release oral tablet (20 sources) Opioid Agonist Start: 10-05-2014 End: 01-14-2015 take 1 tablet by mouth twice daily Morphine 15 MG tablet Discontinued 15 mg PO TWICE A DAY October 05, 2014 1:00am January 14, 2015 9:59am Start: 09-24-2014 End: 10-28-2014 take 1 tablet by mouth every twelve hours Morphine 15 MG tablet Discontinued 15 mg PO Q12H September 24, 2014 1:00am October 28, 2014 11:59am Multivitamin tablet (5 sources) Start: 09-06-2021 End: 05-25-2022 Multivitamin tablet Discontinued 1 {tbl} PO DAILY September 06, 2021 1:00am May 25, 2022 1:16pm mupirocin 0.02 mg/mg topical ointment (4 sources) RNA Synthetase Inhibitor Antibacterial Start: 06-06-2024 End: 06-22-2024 mupirocin (BACTROBAN) 2 % ointment Apply 0.5 inch with cotton swab (Q-tip) to each nostril in the morning and evening for 5 days prior to and including day of surgery. 22 g 06/06/2024 06/22/2024 Suspended naloxone 4 mg/actuation nasal spray (NARCAN) (16 sources) Start: 06-27-2024 End: 07-29-2024 naloxone 4 mg/actuation nasal spray (NARCAN) Use 1 spray in one nostril as needed for overdose. May repeat every 2 to 3 min in alternating nostrils until medical assistance is available 2 Each 06/27/2024 07/29/2024 Discontinued Start: 06-27-2024 naloxone 4 mg/ actuation nasal spray (NARCAN) Use 1 spray in one nostril as needed for overdose. May repeat every 2 to 3 min in alternating nostrils until medical assistance is available 2 Each 06/27/2024 Active Naloxone 4 mg/actuation spray,non-aerosol (5 sources) Start: 06-27-2024 End: 07-15-2024 Naloxone 4 mg/actuation spray,non-aerosol Discontinued 4 mg INTRANASAL Q3M as needed for opioid overdose June 27, 2024 12:00am July 15, 2024 7:09pm spray 1 dose into ONE nostril; alternate nostrils w each dose until help arrives nystatin [id number] unt/ml topical cream (19 sources) Polyene Antifungal Start: 04-16-2024 End: 07-11-2024 nystatin (MYCOSTATIN) cream Apply to affected area two times a day. 30 g 2 04/16/2024 07/11/2024 Discontinued omeprazole 20 mg delayed release oral tablet (20 sources) Proton Pump Inhibitor Start: 02-06-2022 End: 09-24-2024 take 1 tablet by mouth once daily Omeprazole Magnesium (Prilosec Otc) 20 mg Tablet,Delayed Release (Dr/Ec) Discontinued 20 mg PO DAILY February 06, 2022 12:00am September 24, 2024 1:06am Start: 07-22-2020 End: 11-22-2021 Omeprazole Magnesium 20 MG t ablet,delayed release (DR/EC) Discontinued 20 mg PO NEEDED as needed for Indigestion July 22, 2020 12:00am November 22, 2021 2:32pm pantoprazole 20 mg delayed release oral tablet (20 sources) Proton Pump Inhibitor Start: 06-27-2024 End: 10-17-2024 take 1 tablet by mouth once daily Pantoprazole 20 mg tablet,delayed release (DR/EC) Discontinued 20 mg PO DAILY June 27, 2024 12:00am July 15, 2024 7:10pm Start: 10-05-2014 End: 01-14-2015 take 1 tablet by mouth once daily Pantoprazole 40 MG tablet Discontinued 40 mg PO DAILY October 05, 2014 1:00am January 14, 2015 9:59am polyethylene glycol 3350 67573 mg powder for oral solution (17 sources) Osmotic Laxative End: 08-22-2024 polyethylene glycol 3350 17 gram packet Take 17 g by mouth once daily. Dissolve dose in 4 - 8 ounces of liquid and take as directed. 08/22/2024 Discontinued polysaccharide iron complex 150 mg oral capsule (20 sources) Start: 06-27-2024 End: 10-17-2024 iron polysaccharide complex (FERREX-150) 150 mg iron capsule every 48 hours. 06/27/2024 10/17/2024 Discontinued Start: 06-27-2024 Polysaccharide Iron Complex (Ferrex 150) 150 mg iron capsule Active 65 mg PO EVERY OTHER DAY June 27, 2024 12:00am Start: 04-16-2024 End: 10-17-2024 take 1 capsule by mouth once daily iron polysaccharide complex (NU-IRON) 150 mg iron capsule Take 1 capsule by mouth once daily. 90 capsule 3 04/16/2024 10/17/2024 Discontinued promethazine hydrochloride 25 mg oral tablet (14 sources) Phenothiazine Start: 10-24-2013 End: 11-03-2013 take 1 tablet by mouth every four hours as needed for nausea Promethazine 25 MG tablet Discontinued 25 mg PO EVERY 4 HOURS NEEDED as needed for Nausea October 24, 2013 1:00am November 03, 2013 11:54am rivaroxaban 10 mg oral tablet (20 sources) Factor Xa Inhibitor Start: 06-08-2022 End: 07-15-2024 take 1 tablet by mouth once daily Rivaroxaban (Xarelto) 10 mg Tablet Discontinued 10 mg PO DAILY@0600 14 June 08, 2022 12:00am July 15, 2024 7:10pm Take for 2 weeks postoperatively for DVT prophylaxis Start: 10-24-2013 End: 11-03-2013 take 1 tablet by mouth once daily Rivaroxaban (Xarelto) 10 MG tablet Discontinued 10 mg PO DAILY October 24, 2013 1:00am November 03, 2013 11:54am 72 hr scopolamine 0.0139 mg/hr transdermal system (14 sources) Anticholinergic Start: 10-25-2013 End: 11-03-2013 Scopolamine Base 1.5 MG patch Discontinued 1 NMA TRANSDERM. Every 3 Days October 25, 2013 1:00am November 03, 2013 12:00pm Start: 10-25-2013 End: 11-03-2013 Scopolamine Base Discontinue d 1 PATCH TRANSDERM. Every 3 Days October 25, 2013 1:00am November 03, 2013 12:00pm SENNA-DOCUSATE SODIUM ORAL (10 sources) End: 07-29-2024 take 2 tablets by mouth twice daily SENNA-DOCUSATE SODIUM ORAL Take 2 tablets by mouth two times a day. 07/29/2024 Discontinued take 2 tablets by mouth twice da julieta SENNA-DOCUSATE SODIUM ORAL Take 2 tablets by mouth two times a day. Active trospium chloride 20 mg oral tablet (16 sources) Cholinergic Muscarinic Antagonist Start: 06-27-2024 End: 07-29-2024 take 1 tablet by mouth twice daily before mealtime trospium (SANCTURA) 20 mg tablet Take 1 tablet by mouth two times a day before meals. This is the therapeutic interchange if your pharmacy does not have Gemtesa. 06/27/2024 07/29/2024 Discontinued vitamin b12 1 mg oral capsule (20 sources) Vitamin B12 Start: 06-27-2024 End: 09-24-2024 take 1 capsule by mouth once daily Cyanocobalamin (Vitamin B-12) 1,000 mcg capsule Discontinued 1000 ug PO DAILY June 27, 2024 12:00am September 24, 2024 1:07am Start: 04-16-2024 End: 10-17-2024 take 1 tablet by mouth once daily cyanocobalamin (VITAMIN B-12) 1,000 mcg tab Take 1 tablet by mouth once daily. 90 tablet 3 04/16/2024 10/17/2024 Discontinued Vitamin D3 (9 sources) Start: 10-13-2013 End: 09-06-2021 take 2000 [IU] by mouth once daily Vitamin D3 Discontinued 2000 UNIT PO DAILY October 13, 2013 11:50am September 06, 2021 10:29am Start: 10-13-2013 End: 09-06-2021 take 2000 [IU] by mouth once daily Vitamin D3 Discontinued 2000 UNIT PO DAILY October 13, 2013 12:00am September 06, 2021 9:29am Start: 10-13-2013 End: 09-06-2021 take 2000 [IU] by mouth once daily Vitamin D3 Discontinued 2000 UNIT PO DAILY October 13, 2013 1:00am September 06, 2021 10:29am Vitamin D3 tablet (5 sources) Start: 10-13-2013 End: 09-06-2021 take 1 tablet by mouth once daily Vitamin D3 tablet Discontinued 2000 U PO DAILY October 13, 2013 1:00am September 06, 2021 10:29am warfarin sodium 4 mg oral tablet (20 sources) Vitamin K Antagonist Start: 10-05-2014 End: 10-28-2014 Warfarin (Jantoven) 2 MG tablet Discontinued 2 mg PO SUTUTH@1700 0 October 05, 2014 1:00am October 28, 2014 11:59am Start: 10-05-2014 End: 10-28-2014 Warfarin (Jantoven) 4 MG tab let Discontinued 4 mg PO MOWEFRSA@1700 30 October 05, 2014 1:00am October 28, 2014 12:00pm 4 mg (1 tablet) by mouth on sunday, sunday, sunday and sunday) 2 mg (half tablet) by mouth on sunday, sunday and Problems Active Problems Problem Classification Problem Date Documented Da te Episodic/Chronic Chronic obstructive pulmonary disease and bronchiectasis (1 source) Fetid chronic bronchitis; Translations: [Mucopurulent chronic bronchitis] 02-18-2025 Chronic Chronic ulcer of skin (20 sources) Non-pressure chronic ulcer of left thigh with fat layer exposed; Translations: [Non-pressure chronic ulcer of left thigh with fat layer exposed] Onset: 5 09-25-2024 Chronic Complication of device; implant or graft (20 sources) Disorder of prosthetic joint; Translations: [Other mechanical complication of internal left knee prosthesis, initial encounter] Onset: 5 07-29-2024 Episodic Complications of surgical procedures or medical care (20 sources) History of subtotal thyroidectomy; Translations: [Postprocedural hypothyroidism] Onset: 5 07-22-2024 Chronic Complications of surgical procedures or medical care (20 sources) Delayed healing of surgical wound; Translations: [Other complications of procedures, not elsewhere classified, initial encounter] Onset: 5 07-16-2024 Episodic Deficiency and other anemia (15 sources) Anemia; Translations: [Anemia, unspecified] 04-03-2023 Episodic Deficiency and other anemia (20 sources) Iron deficiency anemia; Translations: [Iron deficiency anemia, unspecified] 06-27-2024 Episodic Deficiency and other anemia (1 source) Iron deficiency anemia, unspecified; Translations: [Iron deficiency anemia, unspecified] Onset: Episodic Diabetes mellitus with complications (20 sources) Polyneuropathy due to diabetes mellitus; Translations: [Type 2 diabetes mellitus with diabetic polyneuropathy] Onset: 5 06-27-2024 Chronic Diabetes mellitus without complication (20 sources) Diabetes mellitus; Translations: [Type 2 diabetes mellitus without complications] Onset: 5 Resolved: 5 04-03-2023 Chronic Disorders of lipid metabolism (20 sources) Dyslipidemia; Translations: [Hyperlipidemia, unspecified] Onset: 5 04-03-2023 Chronic Esophageal disorders (20 sources) Gastroesophageal reflux disease; Translations: [Gastro-esophageal reflux disease without esophagitis] Onset: 5 Resolved: 1 03-16-2011 Chronic Esophageal disorders (6 sources) Pill esophagitis; Translations: [Pill esophagitis] 12-06-2023 Episodic Essential hypertension (20 sources) Hypertensive disorder; Translations: [Essential (primary) hypertension] Onset: 5 04-03-2023 Chronic Immunizations and screening for infectious disease (1 source) Requires varicella vaccination; Translations: [Encounter for immunization] 10-17-2023 Episodic Malaise and fatigue (20 sources) Asthenia; Translations: [Other malaise] Onset: 5 06-27-2024 Episodic Mycoses (1 source) Candidiasis of skin; Translations: [Candidiasis of skin and nail] 04-16-2024 Episodic Noninfectious gastroenteritis (14 sources) Colitis; Translations: [Noninfective gastroenteritis and colitis, unspecified] 05-06-2018 Episodic Nonspecific chest pain (3 sources) Chest pain; Translations: [Chest pain, unspecified] Onset: 5 02-18-2025 Episodic Nutritional deficiencies (4 sources) Vitamin D deficiency; Translations: [Vitamin D deficiency, unspecified] Onset: 4 04-03-2023 Chronic Osteoarthritis (20 sources) Osteoarthritis; Translations: [Unspecified osteoarthritis, unspecified site] Onset: 5 Chronic Other aftercare (1 source) Aftercare following joint replacement surgery; Translations: [Aftercare following joint replacement surgery] Onset: 4 Chronic Other aftercare (3 sources) Postoperative visit; Translations: [Encounter for other specified surgical aftercare] 07-11-2024 Episodic Other aftercare (1 source) [facility] (current) use of insulin; Translations: [manager intermediate (current) use of insulin] Onset: 5 Episodic Other connective tissue disease (20 sources) History of revision of left total knee arthroplasty; Translations: [Presence of left artificial knee joint] Onset: 4 03-10-2019 Chronic Other connective tissue disease (20 sources) History of total knee arthroplasty; Translations: [Presence of right artificial knee joint] Onset: 4 06-08-2022 Chronic Other connective tissue disease (3 sources) Presence of right artificial knee joint; Translations: [Knee joint replacement] Onset: 5 Chronic Other connective tissue disease (2 sources) History of left total knee replacement; Translations: [Presence of left artificial knee joint] 05-21-2024 Chronic Other connective tissue disease (1 source) History of right total knee replacement; Translations: [Presence of right artificial knee joint] 06-06-2024 Chronic Other connective tissue disease (2 sources) Presence of left artificial knee joint; Translations: [History of total left knee replacement] Onset: 4 Chronic Other connective tissue disease (1 source) Other specified soft tissue disorders; Translations: [Other specified soft tissue disorders] Onset: 5 Episodic Other diseases of bladder and urethra (5 sources) Overactive bladder; Translations: [Overactive bladder] 06-27-2024 Chronic Other endocrine disorders (7 sources) Hypoglycemia; Translations: [Hypoglycemia, unspecified] 10-02-2024 Chronic Other endocrine disorders (1 source) Hypoglycemia, unspecified; Translations: [Hypoglycemia, unspecified] Onset: 5 Chronic Other eye disorders (20 sources) H/O: Bilateral cataract extraction; Translations: [Cataract extraction status, right eye] 07-22-2024 Episodic Other eye disorders (1 source) Cataract extraction status, right eye; Translations: [Cataract extraction status, right eye] Onset: 5 Episodic Other eye disorders (1 source) Cataract extraction status, left eye; Translations: [Cataract extraction status, left eye] Onset: 5 Episodic Other gastrointestinal disorders (20 sources) H/O: abdominal hernia; Translations: [Personal history of other diseases of the digestive system] 07-22-2024 Episodic Other gastrointestinal disorders (1 source) Personal history of other diseases of the digestive system; Translations: [Personal history of other diseases of the digestive system] Onset: 5 Episodic Other injuries and conditions due to external causes (6 sources) Foreign body in esophagus; Translations: [Unspecified foreign body in esophagus causing other injury, initial encounter] 12-06-2023 Episodic Other injuries and conditions due to external causes (1 source) Delayed healing of wound; Translations: [Other injury of unspecified body region, subsequent encounter] 07-29-2024 Episodic Other lower respiratory disease (2 sources) Cough; Translations: [Acute cough] 02-18-2025 Episodic Other lower respiratory disease (1 source) Wheezing; Translations: [Wheezing] 02-18-2025 Episodic Other lower respiratory disease (1 source) Wheezing; Translations: [Wheezing] Onset: 5 Episodic Other lower respiratory disease (1 source) Shortness of breath; Translations: [Shortness of breath] Onset: 5 Episodic Other nervous system disorders (20 sources) Ocular myasthenia; 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] Onset: 4 08-15-2023 Chronic Other nervous system disorders (14 sources) Chronic postoperative pain; Translations: [Other chronic postprocedural pain] 03-10-2019 Chronic Other nervous system disorders (7 sources) Myasthenia gravis without (acute) exacerbation; 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] Onset: 5 Chronic Other nervous system disorders (20 sources) Bilateral carpal tunnel syndrome; Translations: [Carpal tunnel syndrome, bilateral upper limbs] Onset: 1 04-03-2023 Chronic Other nervous system disorders (1 source) Other chronic pain; Translations: [Chronic pain of left knee] Onset: 6 Chronic Other non-traumatic joint disorders (4 sources) Arthrofibrosis of left knee; Translations: [Ankylosis, left knee] 10-30-2023 Chronic Other non-traumatic joint disorders (1 source) Ankylosis, left knee; Translations: [Fibrosis of left knee joint] Onset: 4 Chronic Other non-traumatic joint disorders (1 source) Stiffness of right knee; Translations: [Stiffness of right knee, not elsewhere classified] 08-19-2024 Episodic Other non-traumatic joint disorders (1 source) Stiffness of left knee; Translations: [Stiffness of left knee, not elsewhere classified] 08-19-2024 Episodic Other nutritional; endocrine; and metabolic disorders (20 sources) Obese class I; Translations: [Obesity, unspecified] Onset: 3 04-03-2023 Chronic Other skin disorders (1 source) Eruption; Translations: [Rash and other nonspecific skin eruption] 04-16-2024 Episodic Other upper respiratory disease (1 source) Acute bronchospasm; Translations: [Acute bronchospasm] 02-18-2025 Episodic Phlebitis; thrombophlebitis and thromboembolism (20 sources) H/O: Deep vein thrombosis; Translations: [Personal history of other venous thrombosis and embolism] Onset: 4 03-10-2019 Episodic Residual codes; unclassified (20 sources) Non-smoker; Translations: [Other specified health status] 07-22-2024 Episodic Residual codes; unclassified (1 source) Other specified postprocedural states; Translations: [Other specified postprocedural states] Onset: 5 Episodic Residual codes; unclassified (1 source) Acquired absence of other specified parts of digestive tract; Translations: [Acquired absence of other specified parts of digestive tract] Onset: 5 Episodic Residual codes; unclassified (1 source) Acquired absence of both cervix and uterus; Translations: [Acquired absence of both cervix and uterus] Onset: 5 Episodic Residual codes; unclassified (1 source) Other specified health status; Translations: [Other specified health status] Onset: 5 Episodic Thyroid disorders (20 sources) Hypothyroidism; Translations: [Hypothyroidism, unspecified] Onset: 5 04-03-2023 Chronic Unclassified (1 source) Left knee pain, unspecified chronicity 12-01-2024 Unclassified (1 source) Acute cough; Translations: [Acute cough] Onset: 5 Past or Other Problems Problem Classification Problem Date Documented Da te Episodic/Chronic Abdominal hernia (20 sources) Hiatal hernia; Translations: [Diaphragmatic hernia without obstruction or gangrene] Onset: 04-03-2023 04-03-2023 Episodic Administrative/social admission (20 sources) Patient encounter status; Translations: [Persons encountering health services in other specified circumstances] Onset: 06-15-2010 Resolved: 03-16-2011 04-03-2023 Episodic Biliary tract disease (20 sources) Gallstone; Translations: [Calculus of gallbladder without cholecystitis without obstruction] Onset: 05-16-2005 Resolved: 05-26-2005 05-26-2005 Episodic Fluid and electrolyte disorders (7 sources) Hypokalemia; Translations: [Hypokalemia] Onset: 09-26-2024 10-01-2024 Episodic Hemorrhoids (20 sources) Internal hemorrhoids; Translations: [Other hemorrhoids] Onset: 06-15-2010 Resolved: 12-29-2015 12-29-2015 Episodic Inflammatory diseases of female pelvic organs (20 sources) Cyst of Bartholin's gland duct; Translations: [Cyst of Bartholin's gland] Onset: 09-02-2007 Resolved: 03-16-2011 03-16-2011 Episodic Nutritional deficiencies (20 sources) Cobalamin deficiency; Translations: [Deficiency of other specified B group vitamins] Onset: 07-31-2012 04-03-2023 Episodic Open wounds of extremities (2 sources) Open wound of left knee; Translations: [Unspecified open wound, left knee, subsequent encounter] Onset: 09-12-2024 09-12-2024 Episodic Other aftercare (1 source) Encounter for other specified surgical aftercare; Translations: [Postoperative visit] Onset: 08-22-2024 Episodic Other aftercare (1 source) Other long term care administrator (current) drug therapy; Translations: [Encounter for long-term current use of medication] Onset: 03-31-2024 Episodic Other connective tissue disease (20 sources) Triggering of digit; Translations: [Trigger finger, left middle finger] Onset: 05-30-2016 05-30-2016 Episodic Other gastrointestinal disorders (20 sources) Diarrhea; Translations: [Diarrhea, unspecified] Onset: 06-15-2010 Resolved: 03-16-2011 03-16-2011 Episodic Other injuries and conditions due to external causes (1 source) Other injury of unspecified body region, subsequent encounter; Translations: [Wound healing, delayed] Onset: 07-29-2024 Episodic Other nervous system disorders (20 sources) Postoperative pain ; Translations: [Other acute postprocedural pain] Onset: 06-20-2024 06-20-2024 Episodic Other non-traumatic joint disorders (20 sources) Pain in left knee; Translations: [Pain in joint, lower leg] Onset: 04-05-2016 04-05-2016 Episodic Other nutritional; endocrine; and metabolic disorders (20 sources) Obesity; Translations: [Obesity, unspecified] Onset: 03-09-2009 Resolved: 05-27-2015 05-27-2015 Chronic Other screening for suspected conditions (not mental disorders or infectious disease) (2 sources) Encounter for screening for malignant neoplasm of colon; Translations: [Encounter for screening mammogram for malignant neoplasm of breast] Onset: 04-11-2024 Episodic Residual codes; unclassified (20 sources) Postoperative state; Translations: [Other specified postprocedural states] Onset: 06-19-2024 06-19-2024 Episodic Skin and subcutaneous tissue infections (9 sources) Cellulitis of left lower limb; Translations: [Cellulitis of left lower limb] Onset: 09-26-2024 10-02-2024 Episodic Spondylosis; intervertebral disc disorders; other back problems (20 sources) Low back pain; Translations: [Lumbago] Onset: 03-09-2009 Resolved: 04-03-2023 04-03-2023 Episodic Results Test Name Value Interpretation Reference Range Facility Wound Ctr History AND Physic pradip 02-20-2025 Wound Ctr History & Physical Normal [facility] 12 Lead EKGon 02-18-2025 12 Lead EKG Normal [facility] Absolute lymphocyte countOrd ered By: Yoni Torres on 02-18-2025 Lymphocytes Auto (Unsp spec) [#/Vol] 1.25 10*3/uL 0.83-4.51 [facility] Absolute neutrophil countOrd ered By: Yoni Torres on 02-18-2025 Neutrophils (Bld) [#/Vol] 3.8 10*3/uL 2.0-7.7 [facility] Anion gap in Serum or Plasma Ordered By: Yoni Torres on 02-18-2025 Anion gap [Moles/Vol] 12 mmol/L 5-15 [facility] Automated lymphocyte count a s percentage of total leukocytesOrdered By: Yoni Torres on 02-18-2025 Lymphocytes/100 WBC Auto (Unsp spec) 18.3 % Low 19-41 [facility] BUN/creatinine ratioOrdered By: Yonijohan Torres on 02-18-2025 Urea nitrogen/Creatinine [Mass ratio] 21.4 mg/mg High 10-20 [facility] Basophil percentageOrdered B y: Yoni Torres on 02-18-2025 Basophils/100 WBC (Bld) 1.8 % High 0-1 [facility] Bilirubin, totalOrdered By: Yonijohan Torres on 02-18-2025 Bilirubin [Mass/Vol] 0.26 mg/dL 0.00-1.30 [facility] CBC W/Diff, Automatedon 05-2 Absolute Lymph 1.25 X10 3/uL Normal 0.83-4.51 [facility] Comment on above: Performed By: #### L 100.0100, L503.6005, L500.4050, L501.4021 ####[facility] [address] [place], [address] Absolute Neut 3.8 X10 3/uL Normal 2.0-7.7 [facility] Comment on above: Performed By: #### L 100.0100, L503.6005, L500.4050, L501.4021 ####[facility] [address] [place], [address] Basophils/100 WBC (Bld) 1.8 % High 0-1 [facility] Comment on above: Performed By: #### L 100.0100, L503.6005, L500.4050, L501.4021 ####[facility] [address] [place], [address] Eosinophils/100 WBC (Bld) 10.1 % High 0-5 [facility] Comment on above: Performed By: #### L 100.0100, L503.6005, L500.4050, L501.4021 ####[facility] [address] [place], [address] Erythrocyte distribution width (RBC) [Ratio] 16.9 % High 11.6-14.6 [facility] Comment on above: Performed By: #### L 100.0100, L503.6005, L500.4050, L501.4021 ####[facility] [address] [place], [address] Hematocrit (Bld) [Volume fraction] 42.2 % Normal 37-47 [facility] Comment on above: Performed By: #### L 100.0100, L503.6005, L500.4050, L501.4021 ####[facility] [address] [place], [address] Hemoglobin (Bld) [Mass/Vol] 13.4 g/dL Normal 12.0-15.0 [facility] Comment on above: Performed By: #### L 100.0100, L503.6005, L500.4050, L501.4021 ####[facility] [address] [place], [address] IG% 0.400 Normal 0.0-0.9 [facility] Comment on above: Result Comment: IG% - Immature Granulocytes (promyelocytes, myelocytes andmetamyelocytes) > 1% indicates that a LEFT SHIFT is Present. Performed By: #### L 100.0100, L503.6005, L500.4050, L501.4021 ####[facility] [address] [place], [address] Lymphocytes/100 WBC (Bld) 18.3 % Low 19-41 [facility] Comment on above: Performed By: #### L 100.0100, L503.6005, L500.4050, L501.4021 ####[facility] [address] [place], [address] MCH (RBC) [Entitic mass] 26.0 pg Low 27.0-32.0 [facility] Comment on above: Performed By: #### L 100.0100, L503.6005, L500.4050, L501.4021 ####[facility] [address] [place], [address] MCHC (RBC) [Mass/Vol] 31.8 g/dL Low 32-36 [facility] Comment on above: Performed By: #### L 100.0100, L503.6005, L500.4050, L501.4021 ####[facility] [address] [place], [address] MCV (RBC) [Entitic vol] 81.9 fL Normal 81-99 [facility] Comment on above: Performed By: #### L 100.0100, L503.6005, L500.4050, L501.4021 ####[facility] [address] [place], [address] Monocytes/100 WBC (Bld) 14.0 % High 0-10 [facility] Comment on above: Performed By: #### L 100.0100, L503.6005, L500.4050, L501.4021 ####[facility] [address] [place], [address] Neutrophils/100 WBC (Bld) 55.4 % Normal 47-70 [facility] Comment on above: Performed By: #### L 100.0100, L503.6005, L500.4050, L501.4021 ####[facility] [address] [place], [address] Nucleated RBC (Bld) [#/Vol] 0 10*3/uL Normal 0-5 [facility] Comment on above: Performed By: #### L 100.0100, L503.6005, L500.4050, L501.4021 ####[facility] [address] [place], [address] Platelet mean volume (Bld) [Entitic vol] 10.8 fL Normal 6.2-12.0 [facility] Comment on above: Performed By: #### L 100.0100, L503.6005, L500.4050, L501.4021 ####[facility] [address] [place], [address] Platelets (Bld) [#/Vol] 302 10*3/uL Normal 150-450 [facility] Comment on above: Performed By: #### L 100.0100, L503.6005, L500.4050, L501.4021 ####[facility] [address] [place], [address] RBC (Bld) [#/Vol] 5.15 10*6/uL Normal 4.2-5.4 [facility] Comment on above: Performed By: #### L 100.0100, L503.6005, L500.4050, L501.4021 ####[facility] [address] [place], [address] RDW SD 49.7 fl High 35.1-43.9 [facility] Comment on above: Performed By: #### L 100.0100, L503.6005, L500.4050, L501.4021 ####[facility] [address] [place], [address] WBC (Bld) [#/Vol] 6.8 10*3/uL Normal 4.4-11.0 [facility] Comment on above: Performed By: #### L 100.0100, L503.6005, L500.4050, L501.4021 ####[facility] [address] [place], [address] CNOVon 02-18-2025 CNOV Normal [facility] Carbon dioxide, total [Moles /volume] in Central venous bloodOrdered By: Yoni Torres on 02-18-2025 CO2 [Moles/Vol] 23.6 mmol/L 21.0-32.0 [facility] Chest PA and Lateralon 02-18 Chest PA and Lateral Normal [facility] Chloride assayOrdered By: Elenita Torres on 02-18-2025 Chloride [Moles/Vol] 103 mmol/L 98-108 [facility] Comprehensive Metabolic Prof ilon 02-18-2025 Albumin [Mass/Vol] 4.3 g/dL Normal 3.4-4.8 [facility] Comment on above: Performed By: #### L 100.0100, L503.6005, L500.4050, L501.4021 ####[facility] [address] [place], [address] Albumin/Globulin [Mass ratio] 1.3 {ratio} Normal 0.9-2.4 [facility] Comment on above: Performed By: #### L 100.0100, L503.6005, L500.4050, L501.4021 ####[facility] [address] [place], [address] ALK PHOS 103 U/L Normal 35-104 [facility] Comment on above: Performed By: #### L 100.0100, L503.6005, L500.4050, L501.4021 ####[facility] [address] [place], [address] ALT [Catalytic activity/Vol] 10 U/L Normal <=34 [facility] Comment on above: Performed By: #### L 100.0100, L503.6005, L500.4050, L501.4021 ####[facility] [address] [place], [address] AST [Catalytic activity/Vol] 24 U/L Normal <=31 [facility] Comment on above: Result Comment: Hemo lysis present, Results??could be affected.?? Performed By: #### L 100.0100, L503.6005, L500.4050, L501.4021 ####[facility] [address] [place], [address] Bilirubin [Mass/Vol] 0.26 mg/dL Normal 0.00-1.30 [facility] Comment on above: Performed By: #### L 100.0100, L503.6005, L500.4050, L501.4021 ####[facility] [address] [place], [address] BUN/CRE 21.4 RATIO High 10-20 [facility] Comment on above: Performed By: #### L 100.0100, L503.6005, L500.4050, L501.4021 ####[facility] [address] [place], [address] Calcium [Mass/Vol] 9.7 mg/dL Normal 7.6-11.0 [facility] Comment on above: Performed By: #### L 100.0100, L503.6005, L500.4050, L501.4021 ####[facility] [address] [place], [address] Chloride [Moles/Vol] 103 mmol/L Normal 98-108 [facility] Comment on above: Performed By: #### L 100.0100, L503.6005, L500.4050, L501.4021 ####[facility] [address] [place], [address] CO2 [Moles/Vol] 23.6 mmol/L Normal 21.0-32.0 [facility] Comment on above: Performed By: #### L 100.0100, L503.6005, L500.4050, L501.4021 ####[facility] [address] [place], [address] Creatinine [Mass/Vol] 0.78 mg/dL Normal 0.70-1.20 [facility] Comment on above: Performed By: #### L 100.0100, L503.6005, L500.4050, L501.4021 ####[facility] [address] [place], [address] ECRCL 57.07 ml/min Normal 50-250 [facility] Comment on above: Performed By: #### L 100.0100, L503.6005, L500.4050, L501.4021 ####[facility] [address] [place], [address] GAP 12 Normal 5-15 [facility] Comment on above: Performed By: #### L 100.0100, L503.6005, L500.4050, L501.4021 ####[facility] [address] [place], [address] GFR/1.73 sq M.predicted among non-blacks MDRD (S/P/Bld) [Vol rate/Area] 79 mL/min/{1.73_m2} Normal >60 [facility] Comment on above: Result Comment: mL/m in/1.73m2 CKD-EPI Creatinine Equation (2020) Performed By: #### L 100.0100, L503.6005, L500.4050, L501.4021 ####[facility] [address] [place], [address] Globulin (S) [Mass/Vol] 3.3 g/dL Normal 2.2-4.2 [facility] Comment on above: Performed By: #### L 100.0100, L503.6005, L500.4050, L501.4021 ####[facility] [address] [place], [address] Glucose [Mass/Vol] 129 mg/dL High 70-99 [facility] Comment on above: Performed By: #### L 100.0100, L503.6005, L500.4050, L501.4021 ####[facility] [address] [place], [address] Potassium [Moles/Vol] 4.2 mmol/L Normal 3.3-5.1 [facility] Comment on above: Result Comment: Hemo lysis present, Results??could be affected.?? Performed By: #### L 100.0100, L503.6005, L500.4050, L501.4021 ####[facility] [address] [place], [address] Sodium [Moles/Vol] 138 mmol/L Normal 133-145 [facility] Comment on above: Performed By: #### L 100.0100, L503.6005, L500.4050, L501.4021 ####[facility] [address] [place], [address] T PROT 7.5 g/dL Normal 5.9-8.4 [facility] Comment on above: Performed By: #### L 100.0100, L503.6005, L500.4050, L501.4021 ####[facility] [address] [place], [address] Urea nitrogen [Mass/Vol] 17 mg/dL Normal 4-19 [facility] Comment on above: Performed By: #### L 100.0100, L503.6005, L500.4050, L501.4021 ####[facility] [address] [place], [address] Emergency Department Summary on 02-18-2025 Emergency Department Summary Normal [facility] Eosinophil percentageOrdered By: Yoni Torres on 02-18-2025 Eosinophils/100 WBC (Bld) 10.1 % High 0-5 [facility] Erythrocyte distribution wid th ratioOrdered By: Yoni Torres on 02-18-2025 Erythrocyte distribution width (RBC) [Ratio] 16.9 % High 11.6-14.6 [facility] Erythrocyte distribution wid th standard deviationOrdered By: Yoni Torres on 02-18-2025 Erythrocyte distribution width (RBC) [Ratio] 49.7 fl High 35.1-43.9 [facility] Glomerular filtration rate ( GFR) estimation/1.73 sq m using serum, plasma, or whole bOrdered By: Yoni Torres on 02-18-2025 GFR/1.73 sq M.predicted among non-blacks MDRD (S/P/Bld) [Vol rate/Area] 79 mL/min/{1.73_m2} >60 [facility] Comment on above: mL/min/1.73m2 CKD-EP I Creatinine Equation (2020) Hematocrit Auto (Bld) [Volum e fraction]Ordered By: Yonijohan Torres on 02-18-2025 Hematocrit (Bld) [Volume fraction] 42.2 % 37-47 [facility] Hemoglobin measurementOrdere d By: Yoni Torres on 02-18-2025 Hemoglobin (Bld) [Mass/Vol] 13.4 g/dL 12.0-15.0 [facility] Immature granulocytes/100 WB C Auto (Bld)Ordered By: Yonijohan Torres on 02-18-2025 Immature granulocytes/100 WBC (Bld) 0.400 % 0.0-0.9 [facility] Comment on above: IG% - Immature Granu locytes (promyelocytes, myelocytes and metamyelocytes) > 1% indicates that a LEFT SHIFT is Present. L499.0042on 02-18-2025 Trop T High Sen 17 ng/L High <=14 [facility] Comment on above: Performed By: #### L 499.0042 ####[facility] [address] [place], [address] L499.0043on 02-18-2025 Trop T High Sen 17 ng/L High <=14 [facility] Comment on above: Performed By: #### L 499.0043 ####[facility] [address] [place], [address] L501.4021on 02-18-2025 Trop T High Sen 20 ng/L High <=14 [facility] Comment on above: Performed By: #### L 100.0100, L503.6005, L500.4050, L501.4021 ####[facility] [address] [place], [address] Laboratory - Chemistry and C hemistry - challengeOrdered By: Yonijohan Torres on 02-18-2025 AST [Catalytic activity/Vol] 24 U/L <32 [facility] Comment on above: Hemolysis present, R esults could be affected. Lactic Acidon 02-18-2025 Lactate [Moles/Vol] 1.6 mmol/L Normal 0.0-2.0 [facility] Comment on above: Order Comment: Y Performed By: #### L 100.0100, L503.6005, L500.4050, L501.4027 ####[facility] [address] [place], [address] Lactic acid measurementOrder ed By: Yoni Torres on 02-18-2025 Lactate [Moles/Vol] 1.6 mmol/L 0.0-2.0 [facility] MCV (mean corpuscular volume ) determinationOrdered By: Yonijohan Torres on 02-18-2025 MCV (RBC) [Entitic vol] 81.9 fL 81-99 [facility] Mean corpuscular hemoglobin (MCH) determinationOrdered By: Yoni Torres on 02-18-2025 MCH (RBC) [Entitic mass] 26.0 pg Low 27.0-32.0 [facility] Mean corpuscular hemoglobin concentration (MCHC) determinationOr[facility] By[facility] MCHC (RBC) [Mass/Vol] 31.8 g/dL Low 32-36 [facility] Mean platelet volume determi nationOrdered By: Yonijohan Torres on 02-18-2025 Platelet mean volume (Bld) [Entitic vol] 10.8 fL 6.2-12.0 [facility] Monocyte percentageOrdered B y: Yoni Torres on 02-18-2025 Monocytes/100 WBC (Bld) 14.0 % High 0-10 [facility] Neutrophil percentageOrdered By: [facility] Torres on 02-18-2025 Neutrophils/100 WBC (Bld) 55.4 % 47-70 [facility] Nucleated red blood cell per centageOrdered By: Yonijohan Torres on 02-18-2025 Nucleated RBC/100 WBC (Bld) [Ratio] 0 % 0-5 [facility] Platelet countOrdered By: [facility] Torres on 02-18-2025 Platelets (Bld) [#/Vol] 302 10*3/uL 150-450 [facility] Potassium measurement (mass/ volume)Ordered By: Yoni Torres on 02-18-2025 Potassium (Unsp spec) [Mass/Vol] 4.2 mmol/L 3.3-5.1 [facility] Comment on above: Hemolysis present, R esults could be affected. RBC Auto (Bld) [#/Vol]Ordere d By: Yoni Torres on 02-18-2025 RBC (Bld) [#/Vol] 5.15 10*6/uL 4.2-5.4 [facility] Serum creatinine measurement (mass/volume)Ordered By: Yoni Torres on 02-18-2025 Creatinine [Mass/Vol] 0.78 mg/dL 0.70-1.20 [facility] Serum globulin measurementOr dered By: Yoni Torres on 02-18-2025 Globulin (S) [Mass/Vol] 3.3 g/dL 2.2-4.2 [facility] Serum glucose measurement (m ass/volume)Ordered By: Yoni Torres on 02-18-2025 Glucose [Mass/Vol] 129 mg/dL High 70-99 [facility] Serum or plasma alanine cho otransferase (ALT) measurementOrdered By: Yoni Torres on 02-18-2025 ALT [Catalytic activity/Vol] 10 U/L <35 [facility] [facility] Serum or plasma albumin sage urement (mass/volume)Ordered By: Yoni Torres on 02-18-2025 Albumin [Mass/Vol] 4.3 g/dL 3.4-4.8 [facility] Serum or plasma albumin/glob ulin mass ratioOrdered By: Yoni Torres on 02-18-2025 Albumin/Globulin [Mass ratio] 1.3 {ratio} 0.9-2.4 [facility] Serum or plasma alkaline stacey sphatase measurementOrdered By: Yonijohan Torres 02-18-2025 ALP [Catalytic activity/Vol] 103 U/L 35-104 [facility] Serum or plasma calcium sage urement (mass/volume)Ordered By: Yoni Torres on 02-18-2025 Calcium [Mass/Vol] 9.7 mg/dL 7.6-11.0 [facility] Serum or plasma urea nitroge n measurement (mass/volume)Ordered By: Yoni Torres on 02-18-2025 Urea nitrogen [Mass/Vol] 17 mg/dL 4-19 [facility] Sodium levelOrdered By: Yoni Torres on 02-18-2025 Sodium [Moles/Vol] 138 mmol/L 133-145 [facility] Total proteinOrdered By: Yoni Torres on 02-18-2025 Protein [Mass/Vol] 7.5 g/dL 5.9-8.4 [facility] Troponin T.cardiac [Mass/vol ume] in Serum or Plasma by High sensitivity methodOrdered By: Yoni Torres on 02-18-2025 Troponin T.cardiac High sensitivity method [Mass/Vol] 17 ng/L High <14 [facility] Troponin T.cardiac High sensitivity method [Mass/Vol] 17 ng/L High <14 [facility] Troponin T.cardiac High sensitivity method [Mass/Vol] 20 ng/L High <14 [facility] White blood cell (WBC) count Ordered By: Yoni Torres on 02-18-2025 WBC (Bld) [#/Vol] 6.8 10*3/uL 4.4-11.0 [facility] XR CHEST 2V FRONTAL/LATon XR CHEST 2V FRONTAL/LAT Normal C [facility] XR Chest PA and Lateralon IMPRESSION: 1. No radiographic evidence of acute cardiopulmonary process. 2. Moderately large hiatal hernia. [employer]ery Products Checker: DARLINE Transcribe Date/Time: Feb 18 2025 2:51P Dictated by : DALE TRACY MD This examination was interpreted and the report reviewed and electronically signed by: DALE TRACY MD on Feb 18 2025 2:52PM [facility] DIVISION OF RADIOLOGY * * *Final Report* * * DATE OF EXAM: Feb 18 2025 2:50PM WOX 5291 - XR CHEST 2V FRONTAL/LAT / PROCEDURE REASON: Acute cough * * * * Physician Interpretation * * * * EXAMINATION: CHEST RADIOGRAPH (2 VIEW FRONTAL & LATERAL) CLINICAL HISTORY: Acute cough MQ: XC2_6 EXAM DATE/TIME: 02/18/2025 2:50 PM COMPARISON: No relevant prior studies available. RESULT: Lines, tubes, and devices: Neurostimulator leads terminate at the level of the mid thoracic spine. Lungs and pleura: No consolidation. No lung mass. No pleural effusion. No pneumothorax. Cardiomediastinal silhouette: Cardiomediastinal silhouette normal in size. Moderately large hiatal hernia. Bones and soft tissues: Surgical clips in the upper abdomen. Degenerative changes. DIVISION OF RADIOLOGY Provider, [facility] [place] - 02/18/2025 * * *Final Report* * * DATE OF EXAM: Feb 18 2025 2:50PM WOX 5291 - XR CHEST 2V FRONTAL/LAT / PROCEDURE REASON: Acute cough * * * * Physician Interpretation * * * * EXAMINATION: CHEST RADIOGRAPH (2 VIEW FRONTAL & LATERAL) CLINICAL HISTORY: Acute cough MQ: XC2_6 EXAM DATE/TIME: 02/18/2025 2:50 PM COMPARISON: No relevant prior studies available. RESULT: Lines, tubes, and devices: Neurostimulator leads terminate at the level of the mid thoracic spine. Lungs and pleura: No consolidation. No lung mass. No pleural effusion. No pneumothorax. Cardiomediastinal silhouette: Cardiomediastinal silhouette normal in size. Moderately large hiatal hernia. Bones and soft tissues: Surgical clips in the upper abdomen. Degenerative changes. IMPRESSION IMPRESSION: 1. No radiographic evidence of acute cardiopulmonary process. 2. Moderately large hiatal hernia. [employer] Checker: DARLINE Transcribe Date/Time: Feb 18 2025 2:51P Dictated by : DAEL TRACY MD This examination was interpreted and the report reviewed and electronically signed by: DALE TRACY MD on Feb 18 2025 2:52PM EST [facility] Radiology Study observation (narrative) [facility] XR Chest PA and LateralOrder ed By: [facility] Provider on 02-18-2025 [facility] Venous Duplex US, Unilateral on 02-06-2025 Venous Duplex US, Unilateral Normal [facility] Venous duplex ultrasound rep ortOrdered By: Anthony Esquivel on 02-06-2025 US Vein [facility] [address] [place] [address] Venous Duplex US, Unilateral 02/06/25 1304 MR#: [id number] Acct: [id number] Name: LEOBARDO VALDEZ Rep #:[id number] : 1950 74 From: Anthony Esquivel MD Attending Dr: Dr. Dann Fontaine MD Status: REG CLI Ordering Dr: Dann Fontaine MD Date: 02/06/25 Location: CVS Sex: F C Admitted: Reason For Study Reason For Study: Swelling LLE RIGHT LEFT CFV is compressible, spontaneous, phasic, competent GSV is normal. and demonstrates normal augmentation. CFV is compressible, spontaneous, phasic, competent, Procedure and demonstrates normal augmentation. This is a venous duplex using B-mode, color flow and FV is compressible, spontaneous, phasic, competent spectral Doppler. and demonstrates normal augmentation. Exam performed in department. POP V is compressible, spontaneous, phasic, competent A preliminary report was called and/or faxed to and demonstrates normal augmentation. Zhen. T/P Trunk is compressible. PTV is compressible. LT PerV is compressible. Lymph node noted Lt Groin measuring 0.77cm x 2.93cm. VL/Venous Duplex US, Unilateral Interpretation Summary Deep veins of the left lower extremity are patent and compressible segmentally. There is no evidence of left lower extremity deep vein thrombosis. Valvular competence appears intact within the proximal deep venous system on the left . The left great saphenous vein appears patent and compressible segmentally. The right common femoral vein is patent and compressible . An enlarged lymph node is noted in the left groin, measuring 0.77cm x 2.93 cm. Clinical correlation is advised. Ordering Physician: Dann Fontaine Referring Physician: Aashish Bahena Performed By: Mary Kay Lin, WALLYCS, RVT 02/06/252119 Date _ Anthony Esquivel MD CC: Dr. Dann Fontaine MD; Dr. Aashish Bahena MD ~ Date Dictated: 02/06/25 1304 Date Transcribed: 02/06/252119 [employer] Checker: Signed [facility] Work Phone: Wound Ctr History AND Physic pradip 02-04-2025 Wound Ctr History & Physical Normal [facility] Neurology Visit Reporton Neurology Visit Report Normal [facility] Wound Ctr History AND Physic pradip 01-30-2025 Wound Ctr History & Physical Normal [facility] Wound Ctr History AND Physic pradip 01-23-2025 Wound Ctr History & Physical Normal [facility] Culture, Anaerobic Any Sourc morgan 01-19-2025 CUAN List Antibiotics Last 48 Hours? None List Antibiotics to be Started? none No anaerobic bacteria isolated. Normal [facility] Comment on above: Performed By: #### M 100.2000, M100.4001, M100.3000 ####[facility] [address] [place], [address] Wound Cultureon 01-17-2025 WC Normal [facility] Comment on above: Performed By: #### M 100.2000, M100.4001, M100.3000 ####[facility] [address] [place], [address] Gram Stainon 01-15-2025 GS List Antibiotics Last 48 Hours? None List Antibiotics to be Started? none Gram Stain 2+ Red Blood Cells 2+ White Blood Cells No organisms seen Normal [facility] Comment on above: Performed By: #### M 100.2000, M100.4001, M100.3000 ####[facility] [address] [place], [address] Wound Ctr History AND Physic pradip 01-15-2025 Wound Ctr History & Physical Normal [facility] Anaerobic cultureOrdered By: Anthony Esquivel on 01-14-2025 Bacteria identified Anaer cx Nom (Unsp spec) No anaerobic bacteria isolated. [facility] Gram stainOrdered By: Anthony Esquivel on 01-14-2025 Microscopic observation Gram stain Nom (Unsp spec) [facility] Wound Ctr History AND Physic pradip 01-08-2025 Wound Ctr History & Physical Normal [facility] Wound Ctr History AND Physic pradip 12-26-2024 Wound Ctr History & Physical Normal [facility] Neurology Visit Reporton Neurology Visit Report Normal [facility] CNOVon 12-11-2024 CNOV Normal [facility] XR KNEE 3V AP/LAT/MERCHANT L Ton 12-11-2024 XR KNEE 3V AP/LAT/MERCHANT LT * * *Final Report* * * DATE OF EXAM: Dec 11 2024 9:50AM ASHLEY 5208 - XR KNEE 3V AP/LAT/MERCHANT LT / PROCEDURE REASON: M25.562-Left knee pain, unspecified chronicity * * * * Physician Interpretation * * * * PROCEDURE: Left knee INDICATION: Left knee pain, unspecified chronicity .Follow-up for left knee replacement TECHNIQUE: XR KNEE 3V AP/LAT/MERCHANT LT COMPARISON: 09/23/2024 FINDINGS: 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 No periprosthetic lucency or fracture. Patella baja again noted. No joint effusion. IMPRESSION: Stable TKA Bak[employer] Products Checker: DARLINE Transcribe Date/Time: Dec 13 2024 8:38A Dictated by : ARCHANA YEH MD This examination was interpreted and the report reviewed and electronically signed by: ARCHANA YEH MD on Dec 13 2024 8:39AM EST [id number] [facility] Culture, Anaerobic Any Sourc morgan 12-08-2024 CUAN left knee No growth in 5 days. Normal [facility] Comment on above: Performed By: #### M 100.1999, M1.400, ####[facility] [address] [place], [address] Wound Cultureon 12-06-2024 WC Normal [facility] Comment on above: Performed By: #### M 100.1999, M1.4001, M100.3000 ####[facility] [address] [place], [address] Gram Stainon 12-03-2024 GS left knee Gram Stain Rare White Blood Cells No organisms seen Normal [facility] Comment on above: Performed By: #### M 100.2000, M100.4001, M100.3000 ####[facility] [address] [place], [address] Wound Ctr History AND Physic pradip 12-03-2024 Wound Ctr History & Physical Normal [facility] Anaerobic cultureOrdered By: Anthony Esquivel on 12-02-2024 Bacteria identified Anaer cx Nom (Unsp spec) No growth in 5 days. [facility] Bacteria identified Anaer cx Nom (Unsp spec)Ordered By: Anthony Esquivel on 12-02-2024 Anaerobic Culture No growth in 5 days. [facility] Gram stainOrdered By: Anthony Esquivel on 12-02-2024 Microscopic observation Gram stain Nom (Unsp spec) [facility] Routine wound cultureOrdered By: Anthony Esquivel on 12-02-2024 Wound Culture Pseudomonas aeruginosa Abnormal [facility] Wound Ctr History AND Physic pradip 11-29-2024 Wound Ctr History & Physical Normal [facility] Wound Ctr History AND Physic pradip 11-20-2024 Wound Ctr History & Physical Normal [facility] Wound Ctr History AND Physic pradip 11-14-2024 Wound Ctr History & Physical Normal [facility] Wound Ctr History AND Physic pradip 11-05-2024 Wound Ctr History & Physical Normal [facility] Wound Ctr History AND Physic pradip 10-29-2024 Wound Ctr History & Physical Normal [facility] Wound Ctr History AND Physic pradip 10-22-2024 Wound Ctr History & Physical Normal [facility] CNOVon 10-17-2024 CNOV Normal [facility] Wound Ctr History AND Physic pradip 10-15-2024 Wound Ctr History & Physical Normal [facility] Wound Ctr History AND Physic pradip 10-08-2024 Wound Ctr History & Physical Normal [facility] CNOVon 10-07-2024 CNOV Normal [facility] Wound Ctr History AND Physic pradip 10-05-2024 Wound Ctr History & Physical Normal [facility] CNPNon 10-03-2024 CNPN Normal [facility] CNOVon 10-02-2024 CNOV Normal [facility] Basic Metabolic Profile (BMP )on 09-27-2024 BUN Normal 7-18 [facility] Comment on above: Result Comment: Canc elled via OM: Order cancelled - Patient discharged Performed By: #### L 100.0100, L500.2500 ####[facility] [address] [place], [address] BUN/CRE Normal 10-20 [facility] Comment on above: Result Comment: Canc elled via OM: Order cancelled - Patient discharged Performed By: #### L 100.0100, L500.2500 ####[facility] [address] [place], [address] CA,Total Normal 8.5-10.1 [facility] Comment on above: Result Comment: Canc elled via OM: Order cancelled - Patient discharged Performed By: #### L 100.0100, L500.2500 ####[facility] [address] [place], [address] CL Normal 98-107 [facility] Comment on above: Result Comment: Canc elled via OM: Order cancelled - Patient discharged Performed By: #### L 100.0100, L500.2500 ####[facility] [address] [place], [address] CO2 Normal 21.0-32.0 [facility] Comment on above: Result Comment: Canc elled via OM: Order cancelled - Patient discharged Performed By: #### L 100.0100, L500.2500 ####[facility] [address] [place], [address] CREAT,SERUM Normal 0.55-1.02 [facility] Comment on above: Result Comment: Canc elled via OM: Order cancelled - Patient discharged Performed By: #### L 100.0100, L500.2500 ####[facility] [address] [place], [address] EST GFR Normal >60 [facility] Comment on above: Result Comment: Canc elled via OM: Order cancelled - Patient discharged Performed By: #### L 100.0100, L500.2500 ####[facility] [address] [place], [address] EST GFR - AA Normal >60 [facility] Comment on above: Result Comment: Canc elled via OM: Order cancelled - Patient discharged Performed By: #### L 100.0100, L500.2500 ####[facility] [address] [place], [address] GAP Normal 5-15 [facility] Comment on above: Result Comment: Canc elled via OM: Order cancelled - Patient discharged Performed By: #### L 100.0100, L500.2500 ####[facility] [address] [place], [address] GLU Normal 74-106 [facility] Comment on above: Result Comment: Canc elled via OM: Order cancelled - Patient discharged Performed By: #### L 100.0100, L500.2500 ####[facility] [address] [place], [address] Potassium Normal 3.5-5.1 [facility] Comment on above: Result Comment: Canc elled via OM: Order cancelled - Patient discharged Performed By: #### L 100.0100, L500.2500 ####[facility] [address] [place], [address] Basic Metabolic Profile (BMP) Normal 136-145 [facility] Comment on above: Result Comment: Canc elled via OM: Order cancelled - Patient discharged Performed By: #### L 100.0100, L500.2500 ####[facility] [address] [place], [address] CBC W/Diff, Automatedon 01-0 Absolute Neut Normal 2.0-7.7 [facility] Comment on above: Result Comment: Canc elled via OM: Order cancelled - Patient discharged Performed By: #### L 100.0100, L500.2500 ####[facility] [address] [place], [address] HCT Normal 37-47 [facility] Comment on above: Result Comment: Canc elled via OM: Order cancelled - Patient discharged Performed By: #### L 100.0100, L500.2500 ####[facility] [address] [place], [address] HGB Normal 12.0-15.0 [facility] Comment on above: Result Comment: Canc elled via OM: Order cancelled - Patient discharged Performed By: #### L 100.0100, L500.2500 ####[facility] [address] [place], [address] MCH Normal 27.0-32.0 [facility] Comment on above: Result Comment: Canc elled via OM: Order cancelled - Patient discharged Performed By: #### L 100.0100, L500.2500 ####[facility] [address] [place], [address] MCHC Normal 32-36 [facility] Comment on above: Result Comment: Canc elled via OM: Order cancelled - Patient discharged Performed By: #### L 100.0100, L500.2500 ####[facility] [address] [place], [address] MCV Normal 81-99 [facility] Comment on above: Result Comment: Canc elled via OM: Order cancelled - Patient discharged Performed By: #### L 100.0100, L500.2500 ####[facility] [address] [place], [address] NEUT% Normal 47-70 [facility] Comment on above: Result Comment: Canc elled via OM: Order cancelled - Patient discharged Performed By: #### L 100.0100, L500.2500 ####[facility] [address] [place], [address] PLT Normal 150-450 [facility] Comment on above: Result Comment: Canc elled via OM: Order cancelled - Patient discharged Performed By: #### L 100.0100, L500.2500 ####[facility] [address] [place], [address] RBC Normal 4.2-5.4 [facility] Comment on above: Result Comment: Canc elled via OM: Order cancelled - Patient discharged Performed By: #### L 100.0100, L500.2500 ####[facility] [address] [place], [address] RDW CV Normal 11.6-14.6 [facility] Comment on above: Result Comment: Canc elled via OM: Order cancelled - Patient discharged Performed By: #### L 100.0100, L500.2500 ####[facility] [address] [place], [address] RDW SD Normal 35.1-43.9 [facility] Comment on above: Result Comment: Canc elled via OM: Order cancelled - Patient discharged Performed By: #### L 100.0100, L500.2500 ####[facility] [address] [place], [address] WBC Normal 4.4-11.0 [facility] Comment on above: Result Comment: Canc elled via OM: Order cancelled - Patient discharged Performed By: #### L 100.0100, L500.2500 ####[facility] [address] [place], [address] Wound Cultureon 09-27-2024 WC Normal [facility] Comment on above: Performed By: #### M 8200.1075, M100.2000, M100.3000 ####[facility] [address] [place], [address] Absolute neutrophil countOrd ered By: Isreal Cuenca on 09-26-2024 Neutrophils (Bld) [#/Vol] 4.2 10*3/uL 2.0-7.7 [facility] Basic Metabolic Profile (BMP )on 09-26-2024 BUN/CRE 29.5 RATIO High 10-20 [facility] Comment on above: Performed By: #### L 500.2500, L100.0100 ####[facility] [address] [place], [address] CA,Total 9.1 mg/dL Normal 8.5-10.1 [facility] Comment on above: Performed By: #### L 500.2500, L100.0100 ####[facility] [address] [place], [address] Chloride [Moles/Vol] 110 mmol/L High 98-107 [facility] Comment on above: Performed By: #### L 500.2500, L100.0100 ####[facility] [address] [place], [address] CO2 [Moles/Vol] 27.0 mmol/L Normal 21.0-32.0 [facility] Comment on above: Performed By: #### L 500.2500, L100.0100 ####[facility] [address] [place], [address] Creatinine [Mass/Vol] 0.81 mg/dL Normal 0.55-1.02 [facility] Comment on above: Result Comment: The validity of the calculated GFR GFRAA in patients over70 years has not been determined. Clinical correlation isessential. Performed By: #### L 500.2500, L100.0100 ####[facility] [address] [place], [address] ECRCL 58.43 ml/min Normal [facility] Comment on above: Performed By: #### L 500.2500, L100.0100 ####[facility] [address] [place], [address] EST GFR - AA 88 mL/min Normal >60 [facility] Comment on above: Result Comment: Afri can Guinean GFR Calc Performed By: #### L 500.2500, L100.0100 ####[facility] [address] [place], [address] GAP 4 Low 5-15 [facility] Comment on above: Performed By: #### L 500.2500, L100.0100 ####[facility] [address] [place], [address] GFR/1.73 sq M.predicted among non-blacks MDRD (S/P/Bld) [Vol rate/Area] 73 mL/min/{1.73_m2} Normal >60 [facility] Comment on above: Result Comment: Non- GFR Calc Performed By: #### L 500.2500, L100.0100 ####[facility] [address] [place], [address] Glucose [Mass/Vol] 138 mg/dL High 74-106 [facility] Comment on above: Result Comment: Fast ing Glucose result greater than or equal to 126 mg/dLsuggests DIABETES MELLITUS per A.D.A. criteria. Performed By: #### L 500.2500, L100.0100 ####[facility] [address] [place], [address] Potassium [Moles/Vol] 3.9 mmol/L Normal 3.5-5.1 [facility] Comment on above: Performed By: #### L 500.2500, L100.0100 ####[facility] [address] [place], [address] Sodium [Moles/Vol] 141 mmol/L Normal 136-145 [facility] Comment on above: Performed By: #### L 500.2500, L100.0100 ####[facility] [address] [place], [address] Urea nitrogen [Mass/Vol] 24 mg/dL High 7-18 [facility] Comment on above: Performed By: #### L 500.2500, L100.0100 ####[facility] [address] [place], [address] Basophil percentageOrdered B y: Isreal Cuenca on 09-26-2024 Basophils/100 WBC (Bld) 1.1 % High 0-1 [facility] Blood urea nitrogen (BUN)/cr eatinine ratioOrdered By: Isreal Cuenca on 09-26-2024 Urea nitrogen/Creatinine [Mass ratio] 29.5 mg/mg High 10-20 [facility] CBC W/Diff, Automatedon -0 -2024 Absolute Lymph 1.48 X10 3/uL Normal 0.83-4.51 [facility] Comment on above: Performed By: #### L 500.2500, L100.0100 ####[facility] [address] [place], [address] Absolute Neut 4.2 X10 3/uL Normal 2.0-7.7 [facility] Comment on above: Performed By: #### L 500.2500, L100.0100 ####[facility] [address] [place], [address] Basophils/100 WBC (Bld) 1.1 % High 0-1 [facility] Comment on above: Performed By: #### L 500.2500, L100.0100 ####[facility] [address] [place], [address] Eosinophils/100 WBC (Bld) 7.9 % High 0-5 [facility] Comment on above: Performed By: #### L 500.2500, L100.0100 ####[facility] [address] [place], [address] Erythrocyte distribution width (RBC) [Ratio] 16.2 % High 11.6-14.6 [facility] Comment on above: Performed By: #### L 500.2500, L100.0100 ####[facility] [address] [place], [address] Hematocrit (Bld) [Volume fraction] 33.5 % Low 37-47 [facility] Comment on above: Performed By: #### L 500.2500, L100.0100 ####[facility] [address] [place], [address] Hemoglobin (Bld) [Mass/Vol] 10.5 g/dL Low 12.0-15.0 [facility] Comment on above: Performed By: #### L 500.2500, L100.0100 ####[facility] [address] [place], [address] IG% 0.300 Normal 0.0-0.9 [facility] Comment on above: Result Comment: IG% - Immature Granulocytes (promyelocytes, myelocytes andmetamyelocytes) > 1% indicates that a LEFT SHIFT is Present. Performed By: #### L 500.2500, L100.0100 ####[facility] [address] [place], [address] Lymphocytes/100 WBC (Bld) 20.8 % Normal 19-41 [facility] Comment on above: Performed By: #### L 500.2500, L100.0100 ####[facility] [address] [place], [address] MCH (RBC) [Entitic mass] 26.8 pg Low 27.0-32.0 [facility] [facility] Comment on above: Performed By: #### L 500.2500, L100.0100 ####[facility] [address] [place], [address] MCHC (RBC) [Mass/Vol] 31.3 g/dL Low 32-36 [facility] Comment on above: Performed By: #### L 500.2500, L100.0100 ####[facility] [address] [place], [address] MCV (RBC) [Entitic vol] 85.5 fL Normal 81-99 [facility] Comment on above: Performed By: #### L 500.2500, L100.0100 ####[facility] [address] [place], [address] Monocytes/100 WBC (Bld) 11.5 % High 0-10 [facility] Comment on above: Performed By: #### L 500.2500, L100.0100 ####[facility] [address] [place], [address] Neutrophils/100 WBC (Bld) 58.4 % Normal 47-70 [facility] Comment on above: Performed By: #### L 500.2500, L100.0100 ####[facility] [address] [place], [address] Nucleated RBC (Bld) [#/Vol] 0 10*3/uL Normal 0-5 [facility] Comment on above: Performed By: #### L 500.2500, L100.0100 ####[facility] [address] [place], [address] Platelet mean volume (Bld) [Entitic vol] 10.8 fL Normal 6.2-12.0 [facility] Comment on above: Performed By: #### L 500.2500, L100.0100 ####[facility] [address] [place], [address] Platelets (Bld) [#/Vol] 335 10*3/uL Normal 150-450 [facility] Comment on above: Performed By: #### L 500.2500, L100.0100 ####[facility] [address] [place], [address] RBC (Bld) [#/Vol] 3.92 10*6/uL Low 4.2-5.4 [facility] Comment on above: Performed By: #### L 500.2500, L100.0100 ####[facility] [address] [place], [address] RDW SD 50.6 fl High 35.1-43.9 [facility] Comment on above: Performed By: #### L 500.2500, L100.0100 ####[facility] [address] [place], [address] WBC (Bld) [#/Vol] 7.1 10*3/uL Normal 4.4-11.0 [facility] Comment on above: Performed By: #### L 500.2500, L100.0100 ####[facility] [address] [place], [address] Carbon dioxide measurementOr dered By: Isreal Cuenca on 09-26-2024 CO2 [Moles/Vol] 27.0 mmol/L 21.0-32.0 [facility] Chloride measurementOrdered By: Isreal Cuenca on 09-26-2024 Chloride [Moles/Vol] 110 mmol/L High 98-107 [facility] Consultation - Infectious Dx on 09-26-2024 Consultation - Infectious Dx Normal [facility] Eosinophil percentageOrdered By: Isreal Cuenca on 09-26-2024 Eosinophils/100 WBC (Bld) 7.9 % High 0-5 [facility] Erythrocyte distribution wid th ratioOrdered By: Isreal Cuenca on 09-26-2024 Erythrocyte distribution width (RBC) [Ratio] 16.2 % High 11.6-14.6 [facility] Erythrocyte distribution wid th standard deviationOrdered By: Isreal Cuenca on 09-26-2024 Erythrocyte distribution width (RBC) [Entitic vol] 50.6 fL High 35.1-43.9 [facility] Estimated glomerular filtrat ion rate (GFR) AmericanOrdered By: Isreal Cuenca on 09-26-2024 Estimated GFR (MDRD) Amer 88 mL/min >60 [facility] Comment on above: GFR Calc Estimation of creatinine edwardo aranceOrdered By: Isreal Cuenca on 09-26-2024 Estimated Creatinine Clearance Calc 58.43 ml/min [facility] Glomerular filtration rate ( GFR) estimationOrdered By: Isreal Cuenca on 09-26-2024 Estimated GFR (MDRD) Non-Af Amer 73 mL/min >60 [facility] Comment on above: Non- GFR Calc Glucose measurementOrdered B y: Isreal Cuenca on 09-26-2024 Glucose [Mass/Vol] 138 mg/dL High 74-106 [facility] Comment on above: Fasting Glucose resu lt greater than or equal to 126 mg/dL suggests DIABETES MELLITUS per A.D.A. criteria. Hematocrit Auto (Bld) [Volum e fraction]Ordered By: Isreal Cuenca on 09-26-2024 Hematocrit (Bld) [Volume fraction] 33.5 % Low 37-47 [facility] Hemoglobin measurementOrdere d By: Isreal Cuenca on 09-26-2024 Hemoglobin (Bld) [Mass/Vol] 10.5 g/dL Low 12.0-15.0 [facility] Immature granulocytes/100 WB C Auto (Bld)Ordered By: Isreal Cuenca on 09-26-2024 Immature granulocytes/100 WBC (Bld) 0.300 % 0.0-0.9 [facility] Comment on above: IG% - Immature Granu locytes (promyelocytes, myelocytes and metamyelocytes) > 1% indicates that a LEFT SHIFT is Present. Lymphocytes Auto (Unsp spec) [#/Vol]Ordered By: Isreal Cuenca on 09-26-2024 Lymphocytes (Bld) [#/Vol] 1.48 10*3/uL 0.83-4.51 [facility] Lymphocytes/100 WBC Auto (Un sp spec)Ordered By: Isreal Cuenca on 09-26-2024 Lymphocytes/100 WBC (Bld) 20.8 % 19-41 [facility] MCV (mean corpuscular volume ) determinationOrdered By: Isreal Cuenca on 09-26-2024 MCV (RBC) [Entitic vol] 85.5 fL 81-99 [facility] Mean corpuscular hemoglobin (MCH) determinationOrdered By: Isreal Cuenca on 09-26-2024 MCH (RBC) [Entitic mass] 26.8 pg Low 27.0-32.0 [facility] Mean corpuscular hemoglobin concentration (MCHC) determinationOrdered By: Isreal Cuenca on 09-26-2024 MCHC (RBC) [Mass/Vol] 31.3 g/dL Low 32-36 [facility] Mean platelet volume determi nationOrdered By: Isreal Cuenca on 09-26-2024 Platelet mean volume (Bld) [Entitic vol] 10.8 fL 6.2-12.0 [facility] Monocyte percentageOrdered B y: Isreal Cuenca on 09-26-2024 Monocytes/100 WBC (Bld) 11.5 % High 0-10 [facility] Neutrophil percentageOrdered By: Isreal Cuenca on 09-26-2024 Neutrophils/100 WBC (Bld) 58.4 % 47-70 [facility] Nucleated red blood cell per centageOrdered By: Isreal Cuenca on 09-26-2024 Nucleated RBC/100 WBC (Bld) [Ratio] 0 % 0-5 [facility] Platelet countOrdered By: Onel Cuenca on 09-26-2024 Platelets (Bld) [#/Vol] 335 10*3/uL 150-450 [facility] Potassium measurementOrdered By: Isreal Cuenca on 09-26-2024 Potassium [Moles/Vol] 3.9 mmol/L 3.5-5.1 [facility] RBC Auto (Bld) [#/Vol]Ordere d By: Isreal Cuenca on 09-26-2024 RBC (Bld) [#/Vol] 3.92 10*6/uL Low 4.2-5.4 [facility] Serum anion gap measurementO rdered By: Isreal Cuenca on 09-26-2024 Anion gap [Moles/Vol] 4 mmol/L Low 5-15 [facility] Serum or plasma calcium sage urement (mass/volume)Ordered By: Isreal Cuenca on 09-26-2024 Calcium [Mass/Vol] 9.1 mg/dL 8.5-10.1 [facility] Serum or plasma creatinine m easurement (mass/volume)Ordered By: Isreal Cuenca on 09-26-2024 Creatinine [Mass/Vol] 0.81 mg/dL 0.55-1.02 [facility] Comment on above: The validity of the calculated GFR & GFRAA in patients over 70 years has not been determined. Clinical correlation is essential. Serum or plasma urea nitroge n measurement (mass/volume)Ordered By: Isreal Cuenca on 09-26-2024 Urea nitrogen [Mass/Vol] 24 mg/dL High 7-18 [facility] Sodium levelOrdered By: Man Cuenca on 09-26-2024 Sodium [Moles/Vol] 141 mmol/L 136-145 [facility] White blood cell (WBC) count Ordered By: Isreal Cuenca on 09-26-2024 WBC (Bld) [#/Vol] 7.1 10*3/uL 4.4-11.0 [facility] Basic Metabolic Profile (BMP )on 09-25-2024 BUN/CRE 22.4 RATIO High 10-20 [facility] Comment on above: Performed By: #### L 501.5200, L500.2500, L100.0100, L501.2300 ####[facility] [address] [place], [address] CA,Total 9.4 mg/dL Normal 8.5-10.1 [facility] Comment on above: Performed By: #### L 501.5200, L500.2500, L100.0100, L501.2300 ####[facility] [address] [place], [address] Chloride [Moles/Vol] 109 mmol/L High 98-107 [facility] Comment on above: Performed By: #### L 501.5200, L500.2500, L100.0100, L501.2300 ####[facility] [address] [place], [address] CO2 [Moles/Vol] 26.0 mmol/L Normal 21.0-32.0 [facility] Comment on above: Performed By: #### L 501.5200, L500.2500, L100.0100, L501.2300 ####[facility] [address] [place], [address] Creatinine [Mass/Vol] 0.80 mg/dL Normal 0.55-1.02 [facility] Comment on above: Result Comment: The validity of the calculated GFR GFRAA in patients over70 years has not been determined. Clinical correlation isessential. Performed By: #### L 501.5200, L500.2500, L100.0100, L501.2300 ####[facility] [address] [place], [address] ECRCL 59.66 ml/min Normal [facility] Comment on above: Performed By: #### L 501.5200, L500.2500, L100.0100, L501.2300 ####[facility] [address] [place], [address] EST GFR - AA 89 mL/min Normal >60 [facility] Comment on above: Result Comment: Afri can Guinean GFR Calc Performed By: #### L 501.5200, L500.2500, L100.0100, L501.2300 ####[facility] [address] [place], [address] GAP 5 Normal 5-15 [facility] Comment on above: Performed By: #### L 501.5200, L500.2500, L100.0100, L501.2300 ####[facility] [address] [place], [address] GFR/1.73 sq M.predicted among non-blacks MDRD (S/P/Bld) [Vol rate/Area] 74 mL/min/{1.73_m2} Normal >60 [facility] Comment on above: Result Comment: Non- GFR Calc Performed By: #### L 501.5200, L500.2500, L100.0100, L501.2300 ####[facility] [address] [place], [address] Glucose [Mass/Vol] 131 mg/dL High 74-106 [facility] Comment on above: Result Comment: Fast ing Glucose result greater than or equal to 126 mg/dLsuggests DIABETES MELLITUS per A.D.A. criteria. Performed By: #### L 501.5200, L500.2500, L100.0100, L501.2300 ####[facility] [address] [place], [address] Potassium [Moles/Vol] 3.8 mmol/L Normal 3.5-5.1 [facility] Comment on above: Performed By: #### L 501.5200, L500.2500, L100.0100, L501.2300 ####[facility] [address] [place], [address] Sodium [Moles/Vol] 139 mmol/L Normal 136-145 [facility] Comment on above: Performed By: #### L 501.5200, L500.2500, L100.0100, L501.2300 ####[facility] [address] [place], [address] Urea nitrogen [Mass/Vol] 18 mg/dL Normal 7-18 [facility] Comment on above: Performed By: #### L 501.5200, L500.2500, L100.0100, L501.2300 ####[facility] [address] [place], [address] Bedside Glucoseon 09-25-2024 FINGERSTICK GLU 117 mg/dL High 74-106 [facility] Comment on above: Result Comment: PRASANTH ARAUJO OF PATIENT CARE PER NURSING PROTOCOL Performed By: #### L 501.080 ####[facility] [address] [place], [address] FINGERSTICK GLU 169 mg/dL High 74-106 [facility] Comment on above: Result Comment: PRASANTH ARAUJO OF PATIENT CARE PER NURSING PROTOCOL Performed By: #### L 501.080 ####[facility] [address] [place], [address] CBC W/Diff, Automatedon 01-0 2-2025 Absolute Lymph 1.76 X10 3/uL Normal 0.83-4.51 [facility] Comment on above: Performed By: #### L 501.5200, L500.2500, L100.0100, L501.2300 ####[facility] [address] [place], [address] Absolute Neut 4.2 X10 3/uL Normal 2.0-7.7 [facility] Comment on above: Performed By: #### L 501.5200, L500.2500, L100.0100, L501.2300 ####[facility] [address] [place], [address] Basophils/100 WBC (Bld) 0.8 % Normal 0-1 [facility] Comment on above: Performed By: #### L 501.5200, L500.2500, L100.0100, L501.2300 ####[facility] [address] [place], [address] Eosinophils/100 WBC (Bld) 6.5 % High 0-5 [facility] Comment on above: Performed By: #### L 501.5200, L500.2500, L100.0100, L501.2300 ####[facility] [address] [place], [address] Erythrocyte distribution width (RBC) [Ratio] 16.3 % High 11.6-14.6 [facility] Comment on above: Performed By: #### L 501.5200, L500.2500, L100.0100, L501.2300 ####[facility] [address] [place], [address] Hematocrit (Bld) [Volume fraction] 36.3 % Low 37-47 [facility] Comment on above: Performed By: #### L 501.5200, L500.2500, L100.0100, L501.2300 ####[facility] [address] [place], [address] Hemoglobin (Bld) [Mass/Vol] 11.3 g/dL Low 12.0-15.0 [facility] Comment on above: Performed By: #### L 501.5200, L500.2500, L100.0100, L501.2300 ####[facility] [address] [place], [address] IG% 0.300 Normal 0.0-0.9 [facility] Comment on above: Result Comment: IG% - Immature Granulocytes (promyelocytes, myelocytes andmetamyelocytes) > 1% indicates that a LEFT SHIFT is Present. Performed By: #### L 501.5200, L500.2500, L100.0100, L501.2300 ####[facility] [address] [place], [address] Lymphocytes/100 WBC (Bld) 24.4 % Normal 19-41 [facility] Comment on above: Performed By: #### L 501.5200, L500.2500, L100.0100, L501.2300 ####[facility] [address] [place], [address] MCH (RBC) [Entitic mass] 26.9 pg Low 27.0-32.0 [facility] Comment on above: Performed By: #### L 501.5200, L500.2500, L100.0100, L501.2300 ####[facility] [address] [place], [address] MCHC (RBC) [Mass/Vol] 31.1 g/dL Low 32-36 [facility] Comment on above: Performed By: #### L 501.5200, L500.2500, L100.0100, L501.2300 ####[facility] [address] [place], [address] MCV (RBC) [Entitic vol] 86.4 fL Normal 81-99 [facility] Comment on above: Performed By: #### L 501.5200, L500.2500, L100.0100, L501.2300 ####[facility] [address] [place], [address] Monocytes/100 WBC (Bld) 9.6 % Normal 0-10 [facility] Comment on above: Performed By: #### L 501.5200, L500.2500, L100.0100, L501.2300 ####[facility] [address] [place], [address] Neutrophils/100 WBC (Bld) 58.4 % Normal 47-70 [facility] Comment on above: Performed By: #### L 501.5200, L500.2500, L100.0100, L501.2300 ####[facility] [address] [place], [address] Nucleated RBC (Bld) [#/Vol] 0 10*3/uL Normal 0-5 [facility] Comment on above: Performed By: #### L 501.5200, L500.2500, L100.0100, L501.2300 ####[facility] [address] [place], [address] Platelet mean volume (Bld) [Entitic vol] 10.9 fL Normal 6.2-12.0 [facility] Comment on above: Performed By: #### L 501.5200, L500.2500, L100.0100, L501.2300 ####[facility] [address] [place], [address] Platelets (Bld) [#/Vol] 355 10*3/uL Normal 150-450 [facility] Comment on above: Performed By: #### L 501.5200, L500.2500, L100.0100, L501.2300 ####[facility] [address] [place], [address] RBC (Bld) [#/Vol] 4.20 10*6/uL Normal 4.2-5.4 [facility] Comment on above: Performed By: #### L 501.5200, L500.2500, L100.0100, L501.2300 ####[facility] [address] [place], [address] RDW SD 51.2 fl High 35.1-43.9 [facility] Comment on above: Performed By: #### L 501.5200, L500.2500, L100.0100, L501.2300 ####[facility] [address] [place], [address] WBC (Bld) [#/Vol] 7.2 10*3/uL Normal 4.4-11.0 [facility] Comment on above: Performed By: #### L 501.5200, L500.2500, L100.0100, L501.2300 ####[facility] [address] [place], [address] Glucose measurement at [facility] deOrdered By: Isreal Cuenca on 09-25-2024 Bedside Glucose (Misc Panel) 117 mg/dL High 74-106 [facility] Comment on above: MANAGEMENT OF PATIEN T CARE PER NURSING PROTOCOL Gram Stainon 09-25-2024 GS Gram Stain 1+ Red Blood Cells 1+ White Blood Cells Rare Gram negative rods No Epithelial cells Normal [facility] Comment on above: Performed By: #### M 8200.1075, M100.1999, M100.3000 ####[facility] [address] [place], [address] M8200.1075on 09-25-2024 M8200.1075 Pending MRSA PCR MRSA NEGATIVE STAPH. AUREUS PCR STAPH. AUREUS NEGATIVE Normal [facility] Comment on above: Performed By: #### M 8200.1075, M100.1999, M100.3000 ####[facility] [address] [place], [address] Magnesiumon 09-25-2024 Magnesium [Mass/Vol] 2.1 mg/dL Normal 1.6-2.6 [facility] Comment on above: Performed By: #### L 501.5200, L500.2500, L100.0100, L501.2300 ####[facility] [address] [place], [address] Magnesium measurementOrdered By: Isreal Cuenca on 09-25-2024 Magnesium [Mass/Vol] 2.1 mg/dL 1.6-2.6 [facility] Phosphoruson 09-25-2024 Phosphate [Mass/Vol] 3.8 mg/dL Normal 2.5-4.9 [facility] Comment on above: Performed By: #### L 501.5200, L500.2500, L100.0100, L501.2300 ####[facility] [address] [place], [address] Phosphorus measurementOrdere d By: Isreal Cuenca on 09-25-2024 Phosphorus Level 3.8 mg/dL 2.5-4.9 [facility] Vancomycin trough [Mass/Vol] Ordered By: Enriqueta Knight on 09-25-2024 Vancomycin Level Trough 15.6 ug/mL High 5.0-15.0 [facility] Comment on above: VANCOMYCIN STANDARED DRUG THERAPY TROUGH LEVEL: 5.0 - 15.0 mg/L VANCOMYCIN HIGH INTENSITY THERAPY TROUGH LEVEL: 15.0 - 20.0 mg/L High Intensity therapy recommended for serious lifethreatening infections include:- Etpiunkogo-Mvjqdrdghrqg-Vkyykncbx (Ventilator/Healtcare Associated)-Sepsis PLEASE CONTACT PHARMACY SERVICES (#[id number]) FOR INTERPRETATIONOF RESULTS. Vancomycin, Trough Levelon 0 09-25-2024 VANCO, TROUGH 15.6 ug/mL High 5.0-15.0 [facility] Comment on above: Order Comment: Comme nts: Trough to be drawn 30 mins prior to scheduled [id number] Result Comment: VANC OMYCIN STANDARED DRUG THERAPY TROUGH LEVEL: 5.0 - 15.0 mg/LVANCOMYCIN HIGH INTENSITY THERAPY TROUGH LEVEL: 15.0 - 20.0 mg/LHigh Intensity therapy recommended for serious lifethreatening infections include:- Ucgdtwexoi-Nfwhmrftttro-Wmepkpfqt (Ventilator/Healtcare Associated)-SepsisPLEASE CONTACT PHARMACY SERVICES (#[id number]) FOR INTERPRETATIONOF RESULTS. Performed By: #### L 501.8820 ####[facility] [address] [facility] [address] Wound Ctr History AND Physic pradip 09-25-2024 Wound Ctr History & Physical Normal [facility] Albumin to globulin ratioOrd ered By: Enriqueta Knight on 09-24-2024 Albumin/Globulin [Mass ratio] 0.7 {ratio} Low 0.9-2.4 [facility] Bedside Glucoseon 09-24-2024 FINGERSTICK GLU 170 mg/dL High [address] [place] [address] Comment on above: Result Comment: PRASANTH GEMENT OF PATIENT CARE PER NURSING PROTOCOL Performed By: #### L 501.080 ####[facility] [address] [facility] [address] FINGERSTICK GLU 24 mg/dL Invalid Interpretation Code -[address] [place] [address] Comment on above: Result Comment: Ceasar rascon GivenMANAGEMENT OF PATIENT CARE PER NURSING PROTOCOL Performed By: #### L 501.080 ####[facility] [address] [facility] [address] FINGERSTICK GLU 177 mg/dL High [address] [place] [address] Comment on above: Result Comment: PRASANTH GEMENT OF PATIENT CARE PER NURSING PROTOCOL Performed By: #### L 501.080 ####[facility] [address] [place], [address] FINGERSTICK GLU 214 mg/dL High 74-106 [facility] Comment on above: Result Comment: PRASANTH GEMENT OF PATIENT CARE PER NURSING PROTOCOL Performed By: #### L 501.080 ####[facility] [address] [place], [address] FINGERSTICK GLU 92 mg/dL Normal 74-106 [facility] Comment on above: Result Comment: PRASANTH GEMENT OF PATIENT CARE PER NURSING PROTOCOL Performed By: #### L 501.080 ####[facility] [address] [place], [address] FINGERSTICK GLU 60 mg/dL Low 74-106 [facility] Comment on above: Result Comment: PRASANTH GEMENT OF PATIENT CARE PER NURSING PROTOCOL Performed By: #### L 501.080 ####[facility] [address] [place], [address] FINGERSTICK GLU 90 mg/dL Normal 74-106 [facility] Comment on above: Result Comment: PRASANTH GEMENT OF PATIENT CARE PER NURSING PROTOCOL Performed By: #### L 501.080 ####[facility] [address] [place], [address] Bilirubin, totalOrdered By: Enriqueta Knight on 09-24-2024 Bilirubin [Mass/Vol] 0.50 mg/dL 0.20-1.00 [facility] Comment on above: For patients on eltr ombopag therapy, use of Dimension Bern TBIL is not recommended. CBC W/Diff, Automatedon Absolute Lymph 1.43 X10 3/uL Normal 0.83-4.51 [facility] Comment on above: Performed By: #### L 501.5200, L100.0100, L500.4050, L501.2300 ####[facility] [address] [place], [address] Absolute Neut 6.4 X10 3/uL Normal 2.0-7.7 [facility] Comment on above: Performed By: #### L 501.5200, L100.0100, L500.4050, L501.2300 ####[facility] [address] [place], [address] Basophils/100 WBC (Bld) 0.7 % Normal 0-1 [facility] Comment on above: Performed By: #### L 501.5200, L100.0100, L500.4050, L501.2300 ####[facility] [address] [place], [address] Eosinophils/100 WBC (Bld) 3.8 % Normal 0-5 [facility] Comment on above: Performed By: #### L 501.5200, L100.0100, L500.4050, L501.2300 ####[facility] [address] [place], [address] Erythrocyte distribution width (RBC) [Ratio] 16.4 % High 11.6-14.6 [facility] Comment on above: Performed By: #### L 501.5200, L100.0100, L500.4050, L501.2300 ####[facility] [address] [place], [address] Hematocrit (Bld) [Volume fraction] 33.3 % Low 37-47 [facility] Comment on above: Performed By: #### L 501.5200, L100.0100, L500.4050, L501.2300 ####[facility] [address] [place], [address] Hemoglobin (Bld) [Mass/Vol] 10.2 g/dL Low 12.0-15.0 [facility] Comment on above: Performed By: #### L 501.5200, L100.0100, L500.4050, L501.2300 ####[facility] [address] [place], [address] IG% 0.300 Normal 0.0-0.9 [facility] Comment on above: Result Comment: IG% - Immature Granulocytes (promyelocytes, myelocytes andmetamyelocytes) > 1% indicates that a LEFT SHIFT is Present. Performed By: #### L 501.5200, L100.0100, L500.4050, L501.2300 ####[facility] [id number] [place], [address] Lymphocytes/100 WBC (Bld) 15.6 % Low 19-41 [facility] Comment on above: Performed By: #### L 501.5200, L100.0100, L500.4050, L501.2300 ####[facility] [id number] [place], [address] MCH (RBC) [Entitic mass] 26.5 pg Low 27.0-32.0 [facility] Comment on above: Performed By: #### L 501.5200, L100.0100, L500.4050, L501.2300 ####[facility] [id number] [place], [address] MCHC (RBC) [Mass/Vol] 30.6 g/dL Low 32-36 [facility] Comment on above: Performed By: #### L 501.5200, L100.0100, L500.4050, L501.2300 ####[facility] [id number] [place], [address] MCV (RBC) [Entitic vol] 86.5 fL Normal 81-99 [facility] Comment on above: Performed By: #### L 501.5200, L100.0100, L500.4050, L501.2300 ####[facility] [address] [place], [address] Monocytes/100 WBC (Bld) 10.1 % High 0-10 [facility] Comment on above: Performed By: #### L 501.5200, L100.0100, L500.4050, L501.2300 ####[facility] [address] [place], [address] Neutrophils/100 WBC (Bld) 69.5 % Normal 47-70 [facility] Comment on above: Performed By: #### L 501.5200, L100.0100, L500.4050, L501.2300 ####[facility] [address] [place], [address] Nucleated RBC (Bld) [#/Vol] 0 10*3/uL Normal 0-5 [facility] Comment on above: Performed By: #### L 501.5200, L100.0100, L500.4050, L501.2300 ####[facility] [address] [place], [address] Platelet mean volume (Bld) [Entitic vol] 10.6 fL Normal 6.2-12.0 [facility] Comment on above: Performed By: #### L 501.5200, L100.0100, L500.4050, L501.2300 ####[facility] [address] [place], [address] Platelets (Bld) [#/Vol] 328 10*3/uL Normal 150-450 [facility] Comment on above: Performed By: #### L 501.5200, L100.0100, L500.4050, L501.2300 ####[facility] [address] [place], [address] RBC (Bld) [#/Vol] 3.85 10*6/uL Low 4.2-5.4 [facility] Comment on above: Performed By: #### L 501.5200, L100.0100, L500.4050, L501.2300 ####[facility] [address] [place], [address] RDW SD 51.7 fl High 35.1-43.9 [facility] Comment on above: Performed By: #### L 501.5200, L100.0100, L500.4050, L501.2300 ####[facility] [address] [place], [address] WBC (Bld) [#/Vol] 9.1 10*3/uL Normal 4.4-11.0 [facility] Comment on above: Performed By: #### L 501.5200, L100.0100, L500.4050, L501.2300 ####[facility] [address] [place], [address] Comprehensive Metabolic [address] [facility] 09-24-2024 Albumin [Mass/Vol] 2.4 g/dL Low 3.2-5.0 [facility] Comment on above: Performed By: #### L 501.5200, L100.0100, L500.4050, L501.2300 ####[facility] [address] [place], [address] Albumin/Globulin [Mass ratio] 0.7 {ratio} Low 0.9-2.4 [facility] Comment on above: Performed By: #### L 501.5200, L100.0100, L500.4050, L501.2300 ####[facility] [address] [place], [address] ALK P 77 U/L Normal 45-117 [facility] Comment on above: Performed By: #### L 501.5200, L100.0100, L500.4050, L501.2300 ####[facility] [address] [place], [address] ALT [Catalytic activity/Vol] 15 U/L Normal 13-56 [facility] Comment on above: Performed By: #### L 501.5200, L100.0100, L500.4050, L501.2300 ####[facility] [address] [place], [address] AST [Catalytic activity/Vol] 11 U/L Low 15-37 [facility] Comment on above: Performed By: #### L 501.5200, L100.0100, L500.4050, L501.2300 ####[facility] [address] [place], [address] Bilirubin [Mass/Vol] 0.50 mg/dL Normal 0.20-1.00 [facility] Comment on above: Result Comment: For patients on eltrombopag therapy, use of Dimension Bern TBIL is not recommended. Performed By: #### L 501.5200, L100.0100, L500.4050, L501.2300 ####[facility] [address] [place], [address] BUN/CRE 14.7 RATIO Normal 10-20 [facility] Comment on above: Performed By: #### L 501.5200, L100.0100, L500.4050, L501.2300 ####[facility] [address] [place], [address] CA,Total 8.3 mg/dL Low 8.5-10.1 [facility] Comment on above: Performed By: #### L 501.5200, L100.0100, L500.4050, L501.2300 ####[facility] [address] [place], [address] Chloride [Moles/Vol] 111 mmol/L High 98-107 [facility] Comment on above: Performed By: #### L 501.5200, L100.0100, L500.4050, L501.2300 ####[facility] [address] [place], [address] CO2 [Moles/Vol] 26.0 mmol/L Normal 21.0-32.0 [facility] Comment on above: Performed By: #### L 501.5200, L100.0100, L500.4050, L501.2300 ####[facility] [address] [place], [address] Creatinine [Mass/Vol] 0.61 mg/dL Normal 0.55-1.02 [facility] Comment on above: Result Comment: The validity of the calculated GFR GFRAA in patients over70 years has not been determined. Clinical correlation isessential. Performed By: #### L 501.5200, L100.0100, L500.4050, L501.2300 ####[facility] [address] [place], [address] ECRCL 60.58 ml/min Normal [facility] Comment on above: Performed By: #### L 501.5200, L100.0100, L500.4050, L501.2300 ####[facility] [address] [place], [address] EST GFR - AA 123 mL/min Normal >60 [facility] Comment on above: Result Comment: Afri can Guinean GFR Calc Performed By: #### L 501.5200, L100.0100, L500.4050, L501.2300 ####[facility] [address] [place], [address] GAP 4 Low 5-15 [facility] Comment on above: Performed By: #### L 501.5200, L100.0100, L500.4050, L501.2300 ####[facility] [address] [place], [address] GFR/1.73 sq M.predicted among non-blacks MDRD (S/P/Bld) [Vol rate/Area] 101 mL/min/{1.73_m2} Normal >60 [facility] Comment on above: Result Comment: Non- GFR Calc Performed By: #### L 501.5200, L100.0100, L500.4050, L501.2300 ####[facility] [address] [place], [address] Globulin (S) [Mass/Vol] 3.4 g/dL Normal 2.2-4.2 [facility] Comment on above: Performed By: #### L 501.5200, L100.0100, L500.4050, L501.2300 ####[facility] [address] [place], [address] Glucose [Mass/Vol] 59 mg/dL Low 74-106 [facility] Comment on above: Performed By: #### L 501.5200, L100.0100, L500.4050, L501.2300 ####[facility] [address] [place], [address] Potassium [Moles/Vol] 3.6 mmol/L Normal 3.5-5.1 [facility] Comment on above: Performed By: #### L 501.5200, L100.0100, L500.4050, L501.2300 ####[facility] [address] [place], [address] Sodium [Moles/Vol] 141 mmol/L Normal 136-145 [facility] Comment on above: Performed By: #### L 501.5200, L100.0100, L500.4050, L501.2300 ####[facility] [address] [place], [address] T PROT 5.8 g/dL Low 6.4-8.2 [facility] Comment on above: Performed By: #### L 501.5200, L100.0100, L500.4050, L501.2300 ####[facility] [address] [place], [address] Urea nitrogen [Mass/Vol] 9 mg/dL Normal 7-18 [facility] Comment on above: Performed By: #### L 501.5200, L100.0100, L500.4050, L501.2300 ####[facility] [address] [place], [address] Laboratory - Chemistry and C hemistry - challengeOrdered By: Enriqueta Knight on 09-24-2024 AST [Catalytic activity/Vol] 11 U/L Low 15-37 [facility] Magnesiumon 09-24-2024 Magnesium [Mass/Vol] 1.8 mg/dL Normal 1.6-2.6 [facility] Comment on above: Performed By: #### L 501.5200, L100.0100, L500.4050, L501.2300 ####[facility] [address] [place], [address] Phosphoruson 09-24-2024 Phosphate [Mass/Vol] 3.1 mg/dL Normal 2.5-4.9 [facility] Comment on above: Performed By: #### L 501.5200, L100.0100, L500.4050, L501.2300 ####[facility] [address] [place], [address] Serum globulin measurementOr dered By: Enriqueta Knight on 09-24-2024 Globulin (S) [Mass/Vol] 3.4 g/dL 2.2-4.2 [facility] Serum or plasma alanine cho otransferase (ALT) measurementOrdered By: Enriqueta Knight on 09-24-2024 ALT [Catalytic activity/Vol] 15 U/L 13-56 [facility] Serum or plasma albumin sage urement (mass/volume)Ordered By: Enriqueta Knight on 09-24-2024 Albumin [Mass/Vol] 2.4 g/dL Low 3.2-5.0 [facility] Serum or plasma alkaline stacey sphatase measurementOrdered By: Enriqueta Knight on 09-24-2024 ALP [Catalytic activity/Vol] 77 U/L 45-117 [facility] Total proteinOrdered By: Gina Knight on 09-24-2024 Protein [Mass/Vol] 5.8 g/dL Low 6.4-8.2 [facility] Basic Metabolic Profile (BMP )on 09-23-2024 BUN/CRE 14.1 RATIO Normal 10-20 [facility] Comment on above: Performed By: #### L 101.9900, L100.0100, L500.2500, L501.6710 ####[facility] [address] [place], [address] CA,Total 9.1 mg/dL Normal 8.5-10.1 [facility] Comment on above: Performed By: #### L 101.9900, L100.0100, L500.2500, L501.6710 ####[facility] [address] [place], [address] Chloride [Moles/Vol] 109 mmol/L High 98-107 [facility] Comment on above: Performed By: #### L 101.9900, L100.0100, L500.2500, L501.6710 ####[facility] [address] [place], [address] CO2 [Moles/Vol] 26.0 mmol/L Normal 21.0-32.0 [facility] Comment on above: Performed By: #### L 101.9900, L100.0100, L500.2500, L501.6710 ####[facility] [address] [place], [address] Creatinine [Mass/Vol] 0.71 mg/dL Normal 0.55-1.02 [facility] Comment on above: Result Comment: The validity of the calculated GFR GFRAA in patients over70 years has not been determined. Clinical correlation isessential. Performed By: #### L 101.9900, L100.0100, L500.2500, L501.6710 ####[facility] [address] [place], [address] EST GFR - AA 103 mL/min Normal >60 [facility] Comment on above: Result Comment: Afri can Guinean GFR Calc Performed By: #### L 101.9900, L100.0100, L500.2500, L501.6710 ####[facility] [address] [place], [address] GAP 7 Normal 5-15 [facility] Comment on above: Performed By: #### L 101.9900, L100.0100, L500.2500, L501.6710 ####[facility] [address] [place], [address] GFR/1.73 sq M.predicted among non-blacks MDRD (S/P/Bld) [Vol rate/Area] 85 mL/min/{1.73_m2} Normal >60 [facility] Comment on above: Result Comment: Non- GFR Calc Performed By: #### L 101.9900, L100.0100, L500.2500, L501.6710 ####[facility] [address] [place], [address] Glucose [Mass/Vol] 32 mg/dL Invalid Interpretation Code 74-106 [facility] Comment on above: Result Comment: Crit ical Result(s) Called at: 18:25:54 09/23/2024 by: ZARA CASSIDY. Results read back by same.Glucose result less than 50 mg/dL suggests HYPOGLYCEMIA. Performed By: #### L 101.9900, L100.0100, L500.2500, L501.6710 ####[facility] [address] [place], [address] Potassium [Moles/Vol] 2.8 mmol/L Low 3.5-5.1 [facility] Comment on above: Performed By: #### L 101.9900, L100.0100, L500.2500, L501.6710 ####[facility] [address] [place], [address] Sodium [Moles/Vol] 142 mmol/L Normal 136-145 [facility] Comment on above: Performed By: #### L 101.9900, L100.0100, L500.2500, L501.6710 ####[facility] [address] [place], [address] Urea nitrogen [Mass/Vol] 10 mg/dL Normal 7-18 [facility] Comment on above: Performed By: #### L 101.9900, L100.0100, L500.2500, L501.6710 ####[facility] [address] [place], [address] Bedside Glucoseon 09-23-2024 FINGERSTICK GLU 99 mg/dL Normal 74-106 [facility] Comment on above: Result Comment: PRASANTH GEMENT OF PATIENT CARE PER NURSING PROTOCOL Performed By: #### L 501.080 ####[facility] [address] [place], [address] FINGERSTICK GLU 69 mg/dL Low 74-106 [facility] Comment on above: Result Comment: PRASANTH GEMENT OF PATIENT CARE PER NURSING PROTOCOL Performed By: #### L 501.080 ####[facility] [address] [place], [address] FINGERSTICK GLU 99 mg/dL Normal 74-106 [facility] Comment on above: Result Comment: PRASANTH GEMENT OF PATIENT CARE PER NURSING PROTOCOL Performed By: #### L 501.080 ####[facility] [address] [place], [address] FINGERSTICK GLU 72 mg/dL Low 74-106 [facility] Comment on above: Result Comment: PRASANTH GEMENT OF PATIENT CARE PER NURSING PROTOCOL Performed By: #### L 501.080 ####[facility] [address] [place], [address] FINGERSTICK GLU 26 mg/dL Invalid Interpretation Code 74106 [facility] Comment on above: Result Comment: Dr Johan morfin FollowedSnack GivenMANAGEMENT OF PATIENT CARE PER NURSING PROTOCOL Performed By: #### L 501.080 ####[facility] [address] [place], [address] C-reactive protein measureme nt by high sensitivity methodOrdered By: Julissa Weinberg on 09-23-2024 C-Reactive Protein Extended Range 13.90 mg/L High 0.0-3.0 [facility] Comment on above: C-Reactive Protein ( CRP) provides useful information for thediagnosis, therapy and monitoring of inflammatory processesand associated diseases. For the evaluation of Relative Riskfor Cardiovascular Disease, a High Sensitivity CRP (HSCRP)should be ordered. CBC W/Diff, Automatedon 12-3 Absolute Lymph 1.68 X10 3/uL Normal 0.83-4.51 [facility] Comment on above: Performed By: #### L 101.9900, L100.0100, L500.2500, L501.6710 ####[facility] [address] [place], [address] Absolute Neut 9.4 X10 3/uL High 2.0-7.7 [facility] Comment on above: Performed By: #### L 101.9900, L100.0100, L500.2500, L501.6710 ####[facility] [address] [place], [address] Basophils/100 WBC (Bld) 0.6 % Normal 0-1 [facility] Comment on above: Performed By: #### L 101.9900, L100.0100, L500.2500, L501.6710 ####[facility] [address] [place], [address] Eosinophils/100 WBC (Bld) 1.9 % Normal 0-5 [facility] Comment on above: Performed By: #### L 101.9900, L100.0100, L500.2500, L501.6710 ####[facility] [address] [place], [address] Erythrocyte distribution width (RBC) [Ratio] 16.3 % High 11.6-14.6 [facility] Comment on above: Performed By: #### L 101.9900, L100.0100, L500.2500, L501.6710 ####[facility] [address] [place], [address] Hematocrit (Bld) [Volume fraction] 37.6 % Normal 37-47 [facility] Comment on above: Performed By: #### L 101.9900, L100.0100, L500.2500, L501.6710 ####[facility] [address] [place], [address] Hemoglobin (Bld) [Mass/Vol] 11.7 g/dL Low 12.0-15.0 [facility] Comment on above: Performed By: #### L 101.9900, L100.0100, L500.2500, L501.6710 ####[facility] [address] [place], [address] IG% 0.400 Normal 0.0-0.9 [facility] Comment on above: Result Comment: IG% - Immature Granulocytes (promyelocytes, myelocytes andmetamyelocytes) > 1% indicates that a LEFT SHIFT is Present. Performed By: #### L 101.9900, L100.0100, L500.2500, L501.6710 ####[facility] [address] [place], [address] Lymphocytes/100 WBC (Bld) 13.6 % Low 19-41 [facility] Comment on above: Performed By: #### L 101.9900, L100.0100, L500.2500, L501.6710 ####[facility] [address] [place], [address] MCH (RBC) [Entitic mass] 26.7 pg Low 27.0-32.0 [facility] Comment on above: Performed By: #### L 101.9900, L100.0100, L500.2500, L501.6710 ####[facility] [address] [place], [address] MCHC (RBC) [Mass/Vol] 31.1 g/dL Low 32-36 [facility] Comment on above: Performed By: #### L 101.9900, L100.0100, L500.2500, L501.6710 ####[facility] [address] [place], [address] MCV (RBC) [Entitic vol] 85.8 fL Normal 81-99 [facility] Comment on above: Performed By: #### L 101.9900, L100.0100, L500.2500, L501.6710 ####[facility] [address] [place], [address] Monocytes/100 WBC (Bld) 7.5 % Normal 0-10 [facility] Comment on above: Performed By: #### L 101.9900, L100.0100, L500.2500, L501.6710 ####[facility] [address] [place], [address] Neutrophils/100 WBC (Bld) 76.0 % High 47-70 [facility] Comment on above: Performed By: #### L 101.9900, L100.0100, L500.2500, L501.6710 ####[facility] [address] [place], [address] Nucleated RBC (Bld) [#/Vol] 0 10*3/uL Normal 0-5 [facility] Comment on above: Performed By: #### L 101.9900, L100.0100, L500.2500, L501.6710 ####[facility] [address] [place], [address] Platelet mean volume (Bld) [Entitic vol] 10.4 fL Normal 6.2-12.0 [facility] Comment on above: Performed By: #### L 101.9900, L100.0100, L500.2500, L501.6710 ####[facility] [address] [place], [address] Platelets (Bld) [#/Vol] 405 10*3/uL Normal 150-450 [facility] Comment on above: Performed By: #### L 101.9900, L100.0100, L500.2500, L501.6710 ####[facility] [address] [place], [address] RBC (Bld) [#/Vol] 4.38 10*6/uL Normal 4.2-5.4 [facility] Comment on above: Performed By: #### L 101.9900, L100.0100, L500.2500, L501.6710 ####[facility] [address] [place], [address] RDW SD 50.8 fl High 35.1-43.9 [facility] Comment on above: Performed By: #### L 101.9900, L100.0100, L500.2500, L501.6710 ####[facility] [address] [place], [address] WBC (Bld) [#/Vol] 12.3 10*3/uL High 4.4-11.0 [facility] Comment on above: Performed By: #### L 101.9900, L100.0100, L500.2500, L501.6710 ####[facility] [address] [place], [place], [address] CRPon 09-23-2024 C-REACTIVE PROT 13.90 mg/L High 0.0-3.0 [facility] Comment on above: Result Comment: C-Re active Protein (CRP) provides useful information for thediagnosis, therapy and monitoring of inflammatory processesand associated diseases. For the evaluation of Relative Riskfor Cardiovascular Disease, a High Sensitivity CRP (HSCRP)should be ordered. Performed By: #### L 101.9900, L100.0100, L500.2500, L501.6710 ####[facility] [address] [place], [place], [address] Emergency Department Summary on 09-23-2024 Emergency Department Summary Normal [facility] Erythrocyte Sed Rateon 09-23 SED RATE 12 mm/hr Normal 0-30 [facility] Comment on above: Performed By: #### L 101.9900, L100.0100, L500.2500, L501.6710 ####[facility] [address] [place], [place], [address] Erythrocyte sedimentation ra teOrdered By: Julissa Weinberg on 09-23-2024 ESR (Bld) [Velocity] 12 mm/h 0- [facility] Gram stainOrdered By: Keesha Knight on 09-23-2024 Microscopic observation Gram stain Nom (Unsp spec) [facility] H AND P Exam - Hospitaliston 09-23-2024 H&P Exam - Hospitalist Normal [facility] Magnesiumon 09-23-2024 Magnesium [Mass/Vol] 1.8 mg/dL Normal 1.6-2.6 [facility] Comment on above: Performed By: #### L 501.5200 ####[facility] [address] [place], [place], [address] Methicillin resistant Staphy lococcus aureus detection by polymerase chain reactionOrdered By: Enriqueta nKight on 09-23-2024 Skin and Soft Tissue MRSA/MSSA (PCR [facility] Routine wound cultureOrdered By: Enriqueta Knight on 09-23-2024 Wound Culture Pseudomonas aeruginosa Abnormal [facility] Venous Duplex Imag/Limited/U nion 09-23-2024 Venous Duplex Imag/Limited/Uni Normal [facility] Wound Ctr History AND Physic pradip 09-17-2024 Wound Ctr History & Physical Normal [facility] Basic Metabolic Profile (BMP )on 09-12-2024 BUN Normal 7-18 [facility] Comment on above: Result Comment: Canc elled via OM: Order cancelled - Patient discharged Performed By: #### L 500.2500, L100.0100 ####[facility] [address] [place], [address] BUN/CRE Normal - [facility] Comment on above: Result Comment: Canc elled via OM: Order cancelled - Patient discharged Performed By: #### L 500.2500, L100.0100 ####[facility] [address] [place], [address] CA,Total Normal 8.5-10.1 [facility] Comment on above: Result Comment: Canc elled via OM: Order cancelled - Patient discharged Performed By: #### L 500.2500, L100.0100 ####[facility] [address] [place], [address] CL Normal 98-107 [facility] Comment on above: Result Comment: Canc elled via OM: Order cancelled - Patient discharged Performed By: #### L 500.2500, L100.0100 ####[facility] [address] [place], [address] CO2 Normal 21.0-32.0 [facility] Comment on above: Result Comment: Canc elled via OM: Order cancelled - Patient discharged Performed By: #### L 500.2500, L100.0100 ####[facility] [address] [place], [address] CREAT,SERUM Normal 0.55-1.02 [facility] Comment on above: Result Comment: Canc elled via OM: Order cancelled - Patient discharged Performed By: #### L 500.2500, L100.0100 ####[facility] [address] [place], [address] EST GFR Normal >60 [facility] Comment on above: Result Comment: Canc elled via OM: Order cancelled - Patient discharged Performed By: #### L 500.2500, L100.0100 ####[facility] [address] [place], [address] EST GFR - AA Normal >60 [facility] Comment on above: Result Comment: Canc elled via OM: Order cancelled - Patient discharged Performed By: #### L 500.2500, L100.0100 ####[facility] [address] [place], [address] GAP Normal 5-15 [facility] Comment on above: Result Comment: Canc elled via OM: Order cancelled - Patient discharged Performed By: #### L 500.2500, L100.0100 ####[facility] [address] [place], [address] GLU Normal 74-106 [facility] Comment on above: Result Comment: Canc elled via OM: Order cancelled - Patient discharged Performed By: #### L 500.2500, L100.0100 ####[facility] [address] [place], [address] Potassium Normal 3.5-5.1 [facility] Comment on above: Result Comment: Canc elled via OM: Order cancelled - Patient discharged Performed By: #### L 500.2500, L100.0100 ####[facility] [address] [place], [address] Basic Metabolic Profile (BMP) Normal 136-145 [facility] Comment on above: Result Comment: Canc elled via OM: Order cancelled - Patient discharged Performed By: #### L 500.2500, L100.0100 ####[facility] [id number] [place], [address] CBC W/Diff, Automatedon 12-2 0-2023 Absolute Neut Normal 2.0-7.7 [facility] Comment on above: Result Comment: Canc elled via OM: Order cancelled - Patient discharged Performed By: #### L 500.2500, L100.0100 ####[facility] [id number] [place], [address] HCT Normal 37-47 [facility] Comment on above: Result Comment: Canc elled via OM: Order cancelled - Patient discharged Performed By: #### L 500.2500, L100.0100 ####[facility] [id number] [place], [address] HGB Normal 12.0-15.0 [facility] Comment on above: Result Comment: Canc elled via OM: Order cancelled - Patient discharged Performed By: #### L 500.2500, L100.0100 ####[facility] [address] [place], [address] MCH Normal 27.0-32.0 [facility] Comment on above: Result Comment: Canc elled via OM: Order cancelled - Patient discharged Performed By: #### L 500.2500, L100.0100 ####[facility] [address] [place], [address] MCHC Normal 32-36 [facility] Comment on above: Result Comment: Canc elled via OM: Order cancelled - Patient discharged Performed By: #### L 500.2500, L100.0100 ####[facility] [address] [place], [address] MCV Normal 81-99 [facility] Comment on above: Result Comment: Canc elled via OM: Order cancelled - Patient discharged Performed By: #### L 500.2500, L100.0100 ####[facility] [address] [place], [address] NEUT% Normal 47-70 [facility] Comment on above: Result Comment: Canc elled via OM: Order cancelled - Patient discharged Performed By: #### L 500.2500, L100.0100 ####[facility] [address] [place], [address] PLT Normal 150-450 [facility] Comment on above: Result Comment: Canc elled via OM: Order cancelled - Patient discharged Performed By: #### L 500.2500, L100.0100 ####[facility] [address] [place], [address] RBC Normal 4.2-5.4 [facility] Comment on above: Result Comment: Canc elled via OM: Order cancelled - Patient discharged Performed By: #### L 500.2500, L100.0100 ####[facility] [address] [place], [address] RDW CV Normal 11.6-14.6 [facility] Comment on above: Result Comment: Canc elled via OM: Order cancelled - Patient discharged Performed By: #### L 500.2500, L100.0100 ####[facility] [address] [place], [address] RDW SD Normal 35.1-43.9 [facility] Comment on above: Result Comment: Canc elled via OM: Order cancelled - Patient discharged Performed By: #### L 500.2500, L100.0100 ####[facility] [address] [place], [address] WBC Normal 4.4-11.0 [facility] Comment on above: Result Comment: Canc elled via OM: Order cancelled - Patient discharged Performed By: #### L 500.2500, L100.0100 ####[facility] [address] [place], [address] CNOVon 09-12-2024 CNOV Normal [facility] Wound Ctr History AND Physic pradip 09-10-2024 Wound Ctr History & Physical Normal [facility] Basic Metabolic Profile (BMP )on 09-05-2024 BUN Normal -18 [facility] Comment on above: Result Comment: Canc elled via OM: Order cancelled - Patient discharged Performed By: #### L 100.0100, L500.2500 ####[facility] [address] [place], [address] BUN/CRE Normal - [facility] Comment on above: Result Comment: Canc elled via OM: Order cancelled - Patient discharged Performed By: #### L 100.0100, L500.2500 ####[facility] [address] [place], [address] CA,Total Normal 8.5-10.1 [facility] Comment on above: Result Comment: Canc elled via OM: Order cancelled - Patient discharged Performed By: #### L 100.0100, L500.2500 ####[facility] [address] [place], [address] CL Normal 98-107 [facility] Comment on above: Result Comment: Canc elled via OM: Order cancelled - Patient discharged Performed By: #### L 100.0100, L500.2500 ####[facility] [address] [place], [address] CO2 Normal 21.0-32.0 [facility] Comment on above: Result Comment: Canc elled via OM: Order cancelled - Patient discharged Performed By: #### L 100.0100, L500.2500 ####[facility] [address] [place], [address] CREAT,SERUM Normal 0.55-1.02 [facility] Comment on above: Result Comment: Canc elled via OM: Order cancelled - Patient discharged Performed By: #### L 100.0100, L500.2500 ####[facility] [address] [place], [address] EST GFR Normal >60 [facility] Comment on above: Result Comment: Canc elled via OM: Order cancelled - Patient discharged Performed By: #### L 100.0100, L500.2500 ####[facility] [address] [place], [address] EST GFR - AA Normal >60 [facility] Comment on above: Result Comment: Canc elled via OM: Order cancelled - Patient discharged Performed By: #### L 100.0100, L500.2500 ####[facility] [address] [place], [address] GAP Normal 5-15 [facility] Comment on above: Result Comment: Canc elled via OM: Order cancelled - Patient discharged Performed By: #### L 100.0100, L500.2500 ####[facility] [address] [place], [address] GLU Normal 74-106 [facility] Comment on above: Result Comment: Canc elled via OM: Order cancelled - Patient discharged Performed By: #### L 100.0100, L500.2500 ####[facility] [address] [place], [address] Potassium Normal 3.5-5.1 [facility] Comment on above: Result Comment: Canc elled via OM: Order cancelled - Patient discharged Performed By: #### L 100.0100, L500.2500 ####[facility] [address] [place], [address] Basic Metabolic Profile (BMP) Normal 136-145 [facility] Comment on above: Result Comment: Canc elled via OM: Order cancelled - Patient discharged Performed By: #### L 100.0100, L500.2500 ####[facility] [address] [place], [address] CBC W/Diff, Automatedon 12-1 Absolute Neut Normal 2.0-7.7 [facility] Comment on above: Result Comment: Canc elled via OM: Order cancelled - Patient discharged Performed By: #### L 100.0100, L500.2500 ####[facility] [address] [place], [address] HCT Normal 37-47 [facility] Comment on above: Result Comment: Canc elled via OM: Order cancelled - Patient discharged Performed By: #### L 100.0100, L500.2500 ####[facility] [address] [place], [address] HGB Normal 12.0-15.0 [facility] Comment on above: Result Comment: Canc elled via OM: Order cancelled - Patient discharged Performed By: #### L 100.0100, L500.2500 ####[facility] [address] [place], [address] MCH Normal 27.0-32.0 [facility] Comment on above: Result Comment: Canc elled via OM: Order cancelled - Patient discharged Performed By: #### L 100.0100, L500.2500 ####[facility] [address] [place], [address] MCHC Normal 32-36 [facility] Comment on above: Result Comment: Canc elled via OM: Order cancelled - Patient discharged Performed By: #### L 100.0100, L500.2500 ####[facility] [address] [place], [address] MCV Normal 81-99 [facility] Comment on above: Result Comment: Canc elled via OM: Order cancelled - Patient discharged Performed By: #### L 100.0100, L500.2500 ####[facility] [address] [place], [address] NEUT% Normal 47-70 [facility] Comment on above: Result Comment: Canc elled via OM: Order cancelled - Patient discharged Performed By: #### L 100.0100, L500.2500 ####[facility] [address] [place], [address] PLT Normal 150-450 [facility] Comment on above: Result Comment: Canc elled via OM: Order cancelled - Patient discharged Performed By: #### L 100.0100, L500.2500 ####[facility] [address] [place], [address] RBC Normal 4.2-5.4 [facility] Comment on above: Result Comment: Canc elled via OM: Order cancelled - Patient discharged Performed By: #### L 100.0100, L500.2500 ####[facility] [address] [place], [address] RDW CV Normal 11.6-14.6 [facility] Comment on above: Result Comment: Canc elled via OM: Order cancelled - Patient discharged Performed By: #### L 100.0100, L500.2500 ####[facility] [address] [place], [address] RDW SD Normal 35.1-43.9 [facility] Comment on above: Result Comment: Canc elled via OM: Order cancelled - Patient discharged Performed By: #### L 100.0100, L500.2500 ####[facility] [address] [place], [address] WBC Normal 4.4-11.0 [facility] Comment on above: Result Comment: Canc elled via OM: Order cancelled - Patient discharged Performed By: #### L 100.0100, L500.2500 ####[facility] [address] [place], [address] Wound Ctr History AND Physi calon 09-03-2024 Wound Ctr History & Physical Normal [facility] Basic Metabolic Profile (BMP )on 08-29-2024 BUN Normal 7-18 [facility] Comment on above: Result Comment: Canc elled via OM: Order cancelled - Patient discharged Performed By: #### L 500.2500, L100.0100 ####[facility] [address] [place], [address] BUN/CRE Normal 10-20 [facility] Comment on above: Result Comment: Canc elled via OM: Order cancelled - Patient discharged Performed By: #### L 500.2500, L100.0100 ####[facility] [address] [place], [address] CA,Total Normal 8.5-10.1 [facility] Comment on above: Result Comment: Canc elled via OM: Order cancelled - Patient discharged Performed By: #### L 500.2500, L100.0100 ####[facility] [address] [place], [address] CL Normal 98-107 [facility] Comment on above: Result Comment: Canc elled via OM: Order cancelled - Patient discharged Performed By: #### L 500.2500, L100.0100 ####[facility] [address] [place], [address] CO2 Normal 21.0-32.0 [facility] Comment on above: Result Comment: Canc elled via OM: Order cancelled - Patient discharged Performed By: #### L 500.2500, L100.0100 ####[facility] [address] [place], [address] CREAT,SERUM Normal 0.55-1.02 [facility] Comment on above: Result Comment: Canc elled via OM: Order cancelled - Patient discharged Performed By: #### L 500.2500, L100.0100 ####[facility] [address] [place], [address] EST GFR Normal >60 [facility] Comment on above: Result Comment: Canc elled via OM: Order cancelled - Patient discharged Performed By: #### L 500.2500, L100.0100 ####[facility] [address] [place], [address] EST GFR - AA Normal >60 [facility] Comment on above: Result Comment: Canc elled via OM: Order cancelled - Patient discharged Performed By: #### L 500.2500, L100.0100 ####[facility] [address] [place], [address] GAP Normal 5-15 [facility] Comment on above: Result Comment: Canc elled via OM: Order cancelled - Patient discharged Performed By: #### L 500.2500, L100.0100 ####[facility] [address] [place], [address] GLU Normal 74-106 [facility] Comment on above: Result Comment: Canc elled via OM: Order cancelled - Patient discharged Performed By: #### L 500.2500, L100.0100 ####[facility] [address] [place], [address] Potassium Normal 3.5-5.1 [facility] Comment on above: Result Comment: Canc elled via OM: Order cancelled - Patient discharged Performed By: #### L 500.2500, L100.0100 ####[facility] [address] [place], [address] Basic Metabolic Profile (BMP) Normal 136-145 [facility] Comment on above: Result Comment: Canc elled via OM: Order cancelled - Patient discharged Performed By: #### L 500.2500, L100.0100 ####[facility] [address] [place], [address] CBC W/Diff, Automatedon 12-0 6-2024 Absolute Neut Normal 2.0-7.7 [facility] Comment on above: Result Comment: Canc elled via OM: Order cancelled - Patient discharged Performed By: #### L 500.2500, L100.0100 ####[facility] [address] [place], [address] HCT Normal 37-47 [facility] Comment on above: Result Comment: Canc elled via OM: Order cancelled - Patient discharged Performed By: #### L 500.2500, L100.0100 ####[facility] [address] [place], [address] HGB Normal 12.0-15.0 [facility] Comment on above: Result Comment: Canc elled via OM: Order cancelled - Patient discharged Performed By: #### L 500.2500, L100.0100 ####[facility] [address] [place], [address] MCH Normal 27.0-32.0 [facility] Comment on above: Result Comment: Canc elled via OM: Order cancelled - Patient discharged Performed By: #### L 500.2500, L100.0100 ####[facility] [address] [place], [address] MCHC Normal 32-36 [facility] Comment on above: Result Comment: Canc elled via OM: Order cancelled - Patient discharged Performed By: #### L 500.2500, L100.0100 ####[facility] [address] [place], [address] MCV Normal 81-99 [facility] Comment on above: Result Comment: Canc elled via OM: Order cancelled - Patient discharged Performed By: #### L 500.2500, L100.0100 ####[facility] [address] [place], [address] NEUT% Normal 47-70 [facility] Comment on above: Result Comment: Canc elled via OM: Order cancelled - Patient discharged Performed By: #### L 500.2500, L100.0100 ####[facility] [address] [place], [address] PLT Normal 150-450 [facility] Comment on above: Result Comment: Canc elled via OM: Order cancelled - Patient discharged Performed By: #### L 500.2500, L100.0100 ####[facility] [address] [place], [address] RBC Normal 4.2-5.4 [facility] Comment on above: Result Comment: Canc elled via OM: Order cancelled - Patient discharged Performed By: #### L 500.2500, L100.0100 ####[facility] [address] [place], [address] RDW CV Normal 11.6-14.6 [facility] Comment on above: Result Comment: Canc elled via OM: Order cancelled - Patient discharged Performed By: #### L 500.2500, L100.0100 ####[facility] [address] [place], [address] RDW SD Normal 35.1-43.9 [facility] Comment on above: Result Comment: Canc elled via OM: Order cancelled - Patient discharged Performed By: #### L 500.2500, L100.0100 ####[facility] [address] [place], [address] WBC Normal 4.4-11.0 [facility] Comment on above: Result Comment: Canc elled via OM: Order cancelled - Patient discharged Performed By: #### L 500.2500, L100.0100 ####[facility] [address] [place], [address] Wound Ctr History AND Physic pradip 08-27-2024 Wound Ctr History & Physical Normal [facility] Basic Metabolic Profile (BMP )on 08-22-2024 BUN Normal 7-18 [facility] Comment on above: Result Comment: Canc elled via OM: Order cancelled - Patient discharged Performed By: #### L 100.0100, L500.2500 ####[facility] [address] [place], [address] BUN/CRE Normal 10-20 [facility] Comment on above: Result Comment: Canc elled via OM: Order cancelled - Patient discharged Performed By: #### L 100.0100, L500.2500 ####[facility] [address] [place], [address] CA,Total Normal 8.5-10.1 [facility] Comment on above: Result Comment: Canc elled via OM: Order cancelled - Patient discharged Performed By: #### L 100.0100, L500.2500 ####[facility] [address] [place], [address] CL Normal 98-107 [facility] Comment on above: Result Comment: Canc elled via OM: Order cancelled - Patient discharged Performed By: #### L 100.0100, L500.2500 ####[facility] [address] [place], [address] CO2 Normal 21.0-32.0 [facility] Comment on above: Result Comment: Canc elled via OM: Order cancelled - Patient discharged Performed By: #### L 100.0100, L500.2500 ####[facility] [address] [place], [address] CREAT,SERUM Normal 0.55-1.02 [facility] Comment on above: Result Comment: Canc elled via OM: Order cancelled - Patient discharged Performed By: #### L 100.0100, L500.2500 ####[facility] [address] [place], [address] EST GFR Normal >60 [facility] Comment on above: Result Comment: Canc elled via OM: Order cancelled - Patient discharged Performed By: #### L 100.0100, L500.2500 ####[facility] [address] [place], [address] EST GFR - AA Normal >60 [facility] Comment on above: Result Comment: Canc elled via OM: Order cancelled - Patient discharged Performed By: #### L 100.0100, L500.2500 ####[facility] [address] [place], [address] GAP Normal 5-15 [facility] Comment on above: Result Comment: Canc elled via OM: Order cancelled - Patient discharged Performed By: #### L 100.0100, L500.2500 ####[facility] [address] [place], [address] GLU Normal 74-106 [facility] Comment on above: Result Comment: Canc elled via OM: Order cancelled - Patient discharged Performed By: #### L 100.0100, L500.2500 ####[facility] [address] [place], [address] Potassium Normal 3.5-5.1 [facility] Comment on above: Result Comment: Canc elled via OM: Order cancelled - Patient discharged Performed By: #### L 100.0100, L500.2500 ####[facility] [address] [place], [address] Basic Metabolic Profile (BMP) Normal 136-145 [facility] Comment on above: Result Comment: Canc elled via OM: Order cancelled - Patient discharged Performed By: #### L 100.0100, L500.2500 ####[facility] [address] [place], [address] CBC W/Diff, Automatedon 11-2 Absolute Neut Normal 2.0-7.7 [facility] Comment on above: Result Comment: Canc elled via OM: Order cancelled - Patient discharged Performed By: #### L 100.0100, L500.2500 ####[facility] [address] [place], [address] HCT Normal 37-47 [facility] Comment on above: Result Comment: Canc elled via OM: Order cancelled - Patient discharged Performed By: #### L 100.0100, L500.2500 ####[facility] [address] [place], [address] HGB Normal 12.0-15.0 [facility] Comment on above: Result Comment: Canc elled via OM: Order cancelled - Patient discharged Performed By: #### L 100.0100, L500.2500 ####[facility] [address] [place], [address] MCH Normal 27.0-32.0 [facility] Comment on above: Result Comment: Canc elled via OM: Order cancelled - Patient discharged Performed By: #### L 100.0100, L500.2500 ####[facility] [address] [place], [address] MCHC Normal 32-36 [facility] Comment on above: Result Comment: Canc elled via OM: Order cancelled - Patient discharged Performed By: #### L 100.0100, L500.2500 ####[facility] [address] [place], [address] MCV Normal 81-99 [facility] Comment on above: Result Comment: Canc elled via OM: Order cancelled - Patient discharged Performed By: #### L 100.0100, L500.2500 ####[facility] [address] [place], [address] NEUT% Normal 47-70 [facility] Comment on above: Result Comment: Canc elled via OM: Order cancelled - Patient discharged Performed By: #### L 100.0100, L500.2500 ####[facility] [address] [place], [address] PLT Normal 150-450 [facility] Comment on above: Result Comment: Canc elled via OM: Order cancelled - Patient discharged Performed By: #### L 100.0100, L500.2500 ####[facility] [address] [place], [address] RBC Normal 4.2-5.4 [facility] Comment on above: Result Comment: Canc elled via OM: Order cancelled - Patient discharged Performed By: #### L 100.0100, L500.2500 ####[facility] [address] [place], [address] RDW CV Normal 11.6-14.6 [facility] Comment on above: Result Comment: Canc elled via OM: Order cancelled - Patient discharged Performed By: #### L 100.0100, L500.2500 ####[facility] [address] [place], [address] RDW SD Normal 35.1-43.9 [facility] Comment on above: Result Comment: Canc elled via OM: Order cancelled - Patient discharged Performed By: #### L 100.0100, L500.2500 ####[facility] [address] [place], [address] WBC Normal 4.4-11.0 [facility] Comment on above: Result Comment: Canc elled via OM: Order cancelled - Patient discharged Performed By: #### L 100.0100, L500.2500 ####[facility] [address] [place], [address] CNOVon 08-22-2024 CNOV Normal [facility] CNOVon 08-19-2024 CNOV Normal [facility] Wound Ctr History AND Physic pradip 08-19-2024 Wound Ctr History & Physical Normal [facility] CNPNon 08-18-2024 CNPN Normal [facility] Basic Metabolic Profile (BMP )on 08-15-2024 BUN Normal 7-18 [facility] Comment on above: Result Comment: Canc elled via OM: Order cancelled - Patient discharged Performed By: #### L 500.2500, L100.0100 ####[facility] [address] [place], [address] BUN/CRE Normal 10-20 [facility] Comment on above: Result Comment: Canc elled via OM: Order cancelled - Patient discharged Performed By: #### L 500.2500, L100.0100 ####[facility] [address] [place], [address] CA,Total Normal 8.5-10.1 [facility] Comment on above: Result Comment: Canc elled via OM: Order cancelled - Patient discharged Performed By: #### L 500.2500, L100.0100 ####[facility] [address] [place], [address] CL Normal 98-107 [facility] Comment on above: Result Comment: Canc elled via OM: Order cancelled - Patient discharged Performed By: #### L 500.2500, L100.0100 ####[facility] [address] [place], [address] CO2 Normal 21.0-32.0 [facility] Comment on above: Result Comment: Canc elled via OM: Order cancelled - Patient discharged Performed By: #### L 500.2500, L100.0100 ####[facility] [address] [place], [address] CREAT,SERUM Normal 0.55-1.02 [facility] Comment on above: Result Comment: Canc elled via OM: Order cancelled - Patient discharged Performed By: #### L 500.2500, L100.0100 ####[facility] [address] [place], [address] EST GFR Normal >60 [facility] Comment on above: Result Comment: Canc elled via OM: Order cancelled - Patient discharged Performed By: #### L 500.2500, L100.0100 ####[facility] [address] [place], [address] EST GFR - AA Normal >60 [facility] Comment on above: Result Comment: Canc elled via OM: Order cancelled - Patient discharged Performed By: #### L 500.2500, L100.0100 ####[facility] [address] [place], [address] GAP Normal 5-15 [facility] Comment on above: Result Comment: Canc elled via OM: Order cancelled - Patient discharged Performed By: #### L 500.2500, L100.0100 ####[facility] [address] [place], [address] GLU Normal 74-106 [facility] Comment on above: Result Comment: Canc elled via OM: Order cancelled - Patient discharged Performed By: #### L 500.2500, L100.0100 ####[facility] [address] [place], [address] Potassium Normal 3.5-5.1 [facility] Comment on above: Result Comment: Canc elled via OM: Order cancelled - Patient discharged Performed By: #### L 500.2500, L100.0100 ####[facility] [address] [place], [address] Basic Metabolic Profile (BMP) Normal 136-145 [facility] Comment on above: Result Comment: Canc elled via OM: Order cancelled - Patient discharged Performed By: #### L 500.2500, L100.0100 ####[facility] [address] [place], [address] CBC W/Diff, Automatedon 11-2 Absolute Neut Normal 2.0-7.7 [facility] Comment on above: Result Comment: Canc elled via OM: Order cancelled - Patient discharged Performed By: #### L 500.2500, L100.0100 ####[facility] [address] [place], [address] HCT Normal 37-47 [facility] Comment on above: Result Comment: Canc elled via OM: Order cancelled - Patient discharged Performed By: #### L 500.2500, L100.0100 ####[facility] [address] [place], [address] HGB Normal 12.0-15.0 [facility] Comment on above: Result Comment: Canc elled via OM: Order cancelled - Patient discharged Performed By: #### L 500.2500, L100.0100 ####[facility] [address] [place], [address] MCH Normal 27.0-32.0 [facility] Comment on above: Result Comment: Canc elled via OM: Order cancelled - Patient discharged Performed By: #### L 500.2500, L100.0100 ####[facility] [address] [place], [address] MCHC Normal 32-36 [facility] Comment on above: Result Comment: Canc elled via OM: Order cancelled - Patient discharged Performed By: #### L 500.2500, L100.0100 ####[facility] [address] [place], [address] MCV Normal 81-99 [facility] Comment on above: Result Comment: Canc elled via OM: Order cancelled - Patient discharged Performed By: #### L 500.2500, L100.0100 ####[facility] [address] [place], [address] NEUT% Normal 47-70 [facility] Comment on above: Result Comment: Canc elled via OM: Order cancelled - Patient discharged Performed By: #### L 500.2500, L100.0100 ####[facility] [address] [place], [address] PLT Normal 150-450 [facility] Comment on above: Result Comment: Canc elled via OM: Order cancelled - Patient discharged Performed By: #### L 500.2500, L100.0100 ####[facility] [address] [place], [address] RBC Normal 4.2-5.4 [facility] Comment on above: Result Comment: Canc elled via OM: Order cancelled - Patient discharged Performed By: #### L 500.2500, L100.0100 ####[facility] [address] [place], [address] RDW CV Normal 11.6-14.6 [facility] Comment on above: Result Comment: Canc elled via OM: Order cancelled - Patient discharged Performed By: #### L 500.2500, L100.0100 ####[facility] [address] [place], [address] RDW SD Normal 35.1-43.9 [facility] Comment on above: Result Comment: Canc elled via OM: Order cancelled - Patient discharged Performed By: #### L 500.2500, L100.0100 ####[facility] [address] [place], [address] WBC Normal 4.4-11.0 [facility] Comment on above: Result Comment: Canc elled via OM: Order cancelled - Patient discharged Performed By: #### L 500.2500, L100.0100 ####[facility] [address] [place], [address] Wound Ctr History AND Physic pradip 08-14-2024 Wound Ctr History & Physical Normal [facility] Basic Metabolic Profile (BMP )on 08-08-2024 BUN Normal 7-18 [facility] Comment on above: Result Comment: Canc elled via OM: Order cancelled - Patient discharged Performed By: #### L 100.0100, L500.2500 ####[facility] [address] [place], [address] BUN/CRE Normal 10-20 [facility] Comment on above: Result Comment: Canc elled via OM: Order cancelled - Patient discharged Performed By: #### L 100.0100, L500.2500 ####[facility] [address] [place], [address] CA,Total Normal 8.5-10.1 [facility] Comment on above: Result Comment: Canc elled via OM: Order cancelled - Patient discharged Performed By: #### L 100.0100, L500.2500 ####[facility] [address] [place], [address] CL Normal 98-107 [facility] Comment on above: Result Comment: Canc elled via OM: Order cancelled - Patient discharged Performed By: #### L 100.0100, L500.2500 ####[facility] [address] [place], [address] CO2 Normal 21.0-32.0 [facility] Comment on above: Result Comment: Canc elled via OM: Order cancelled - Patient discharged Performed By: #### L 100.0100, L500.2500 ####[facility] [address] [place], [address] CREAT,SERUM Normal 0.55-1.02 [facility] Comment on above: Result Comment: Canc elled via OM: Order cancelled - Patient discharged Performed By: #### L 100.0100, L500.2500 ####[facility] [address] [place], [address] EST GFR Normal >60 [facility] Comment on above: Result Comment: Canc elled via OM: Order cancelled - Patient discharged Performed By: #### L 100.0100, L500.2500 ####[facility] [address] [place], [address] EST GFR - AA Normal >60 [facility] Comment on above: Result Comment: Canc elled via OM: Order cancelled - Patient discharged Performed By: #### L 100.0100, L500.2500 ####[facility] [address] [place], [address] GAP Normal 5-15 [facility] Comment on above: Result Comment: Canc elled via OM: Order cancelled - Patient discharged Performed By: #### L 100.0100, L500.2500 ####[facility] [address] [place], [address] GLU Normal 74-106 [facility] Comment on above: Result Comment: Canc elled via OM: Order cancelled - Patient discharged Performed By: #### L 100.0100, L500.2500 ####[facility] [address] [place], [address] Potassium Normal 3.5-5.1 [facility] Comment on above: Result Comment: Canc elled via OM: Order cancelled - Patient discharged Performed By: #### L 100.0100, L500.2500 ####[facility] [address] [place], [address] Basic Metabolic Profile (BMP) Normal 136-145 [facility] Comment on above: Result Comment: Canc elled via OM: Order cancelled - Patient discharged Performed By: #### L 100.0100, L500.2500 ####[facility] [address] [place], [address] CBC W/Diff, Automatedon 11-1 Absolute Neut Normal 2.0-7.7 [facility] Comment on above: Result Comment: Canc elled via OM: Order cancelled - Patient discharged Performed By: #### L 100.0100, L500.2500 ####[facility] [address] [place], [address] HCT Normal 37-47 [facility] Comment on above: Result Comment: Canc elled via OM: Order cancelled - Patient discharged Performed By: #### L 100.0100, L500.2500 ####[facility] [address] [place], [address] HGB Normal 12.0-15.0 [facility] Comment on above: Result Comment: Canc elled via OM: Order cancelled - Patient discharged Performed By: #### L 100.0100, L500.2500 ####[facility] [address] [place], [address] MCH Normal 27.0-32.0 [facility] Comment on above: Result Comment: Canc elled via OM: Order cancelled - Patient discharged Performed By: #### L 100.0100, L500.2500 ####[facility] [address] [place], [address] MCHC Normal 32-36 [facility] Comment on above: Result Comment: Canc elled via OM: Order cancelled - Patient discharged Performed By: #### L 100.0100, L500.2500 ####[facility] [address] [place], [address] MCV Normal 81-99 [facility] Comment on above: Result Comment: Canc elled via OM: Order cancelled - Patient discharged Performed By: #### L 100.0100, L500.2500 ####[facility] [address] [place], [address] NEUT% Normal 47-70 [facility] Comment on above: Result Comment: Canc elled via OM: Order cancelled - Patient discharged Performed By: #### L 100.0100, L500.2500 ####[facility] [address] [place], [address] PLT Normal 150-450 [facility] Comment on above: Result Comment: Canc elled via OM: Order cancelled - Patient discharged Performed By: #### L 100.0100, L500.2500 ####[facility] [address] [place], [address] RBC Normal 4.2-5.4 [facility] Comment on above: Result Comment: Canc elled via OM: Order cancelled - Patient discharged Performed By: #### L 100.0100, L500.2500 ####[facility] [address] [place], [address] RDW CV Normal 11.6-14.6 [facility] Comment on above: Result Comment: Canc elled via OM: Order cancelled - Patient discharged Performed By: #### L 100.0100, L500.2500 ####[facility] [address] [place], [address] RDW SD Normal 35.1-43.9 [facility] Comment on above: Result Comment: Canc elled via OM: Order cancelled - Patient discharged Performed By: #### L 100.0100, L500.2500 ####[facility] [address] [place], [address] WBC Normal 4.4-11.0 [facility] Comment on above: Result Comment: Canc elled via OM: Order cancelled - Patient discharged Performed By: #### L 100.0100, L500.2500 ####[facility] [address] [place], [address] CNPNon 08-07-2024 CNPN Normal [facility] Wound Ctr History AND Physic pradip 08-06-2024 Wound Ctr History & Physical Normal [facility] CNOVon 08-05-2024 CNOV Normal [facility] Culture, Anaerobic Any Sourc morgan 08-04-2024 CUAN No growth in 5 days. Normal [facility] Comment on above: Performed By: #### M 100.3000, M100.4001, M100.2000 ####[facility] [address] [place], [address] Basic Metabolic Profile (BMP )on 08-01-2024 BUN Normal 7-18 [facility] Comment on above: Result Comment: Canc elled via OM: Order cancelled - Patient discharged Performed By: #### L 500.2500, L100.0100 ####[facility] [address] [place], [address] BUN/CRE Normal 10-20 [facility] Comment on above: Result Comment: Canc elled via OM: Order cancelled - Patient discharged Performed By: #### L 500.2500, L100.0100 ####[facility] [address] [place], [address] CA,Total Normal 8.5-10.1 [facility] Comment on above: Result Comment: Canc elled via OM: Order cancelled - Patient discharged Performed By: #### L 500.2500, L100.0100 ####[facility] [address] [place], [address] CL Normal 98-107 [facility] Comment on above: Result Comment: Canc elled via OM: Order cancelled - Patient discharged Performed By: #### L 500.2500, L100.0100 ####[facility] [address] [place], [address] CO2 Normal 21.0-32.0 [facility] Comment on above: Result Comment: Canc elled via OM: Order cancelled - Patient discharged Performed By: #### L 500.2500, L100.0100 ####[facility] [address] [place], [address] CREAT,SERUM Normal 0.55-1.02 [facility] Comment on above: Result Comment: Canc elled via OM: Order cancelled - Patient discharged Performed By: #### L 500.2500, L100.0100 ####[facility] [address] [place], [address] EST GFR Normal >60 [facility] Comment on above: Result Comment: Canc elled via OM: Order cancelled - Patient discharged Performed By: #### L 500.2500, L100.0100 ####[facility] [address] [place], [address] EST GFR - AA Normal >60 [facility] Comment on above: Result Comment: Canc elled via OM: Order cancelled - Patient discharged Performed By: #### L 500.2500, L100.0100 ####[facility] [address] [place], [address] GAP Normal 5-15 [facility] Comment on above: Result Comment: Canc elled via OM: Order cancelled - Patient discharged Performed By: #### L 500.2500, L100.0100 ####[facility] [address] [place], [address] GLU Normal 74-106 [facility] Comment on above: Result Comment: Canc elled via OM: Order cancelled - Patient discharged Performed By: #### L 500.2500, L100.0100 ####[facility] [address] [place], [address] Potassium Normal 3.5-5.1 [facility] Comment on above: Result Comment: Canc elled via OM: Order cancelled - Patient discharged Performed By: #### L 500.2500, L100.0100 ####[facility] [address] [place], [address] Basic Metabolic Profile (BMP) Normal 136-145 [facility] Comment on above: Result Comment: Canc elled via OM: Order cancelled - Patient discharged Performed By: #### L 500.2500, L100.0100 ####[facility] [address] [place], [address] CBC W/Diff, Automatedon 11-0 8-4 Absolute Neut Normal 2.0-7.7 [facility] Comment on above: Result Comment: Canc elled via OM: Order cancelled - Patient discharged Performed By: #### L 500.2500, L100.0100 ####[facility] [address] [place], [address] HCT Normal 37-47 [facility] Comment on above: Result Comment: Canc elled via OM: Order cancelled - Patient discharged Performed By: #### L 500.2500, L100.0100 ####[facility] [address] [place], [address] HGB Normal 12.0-15.0 [facility] Comment on above: Result Comment: Canc elled via OM: Order cancelled - Patient discharged Performed By: #### L 500.2500, L100.0100 ####[facility] [address] [place], [address] MCH Normal 27.0-32.0 [facility] Comment on above: Result Comment: Canc elled via OM: Order cancelled - Patient discharged Performed By: #### L 500.2500, L100.0100 ####[facility] [address] [place], [address] MCHC Normal 32-36 [facility] Comment on above: Result Comment: Canc elled via OM: Order cancelled - Patient discharged Performed By: #### L 500.2500, L100.0100 ####[facility] [address] [place], [address] MCV Normal 81-99 [facility] Comment on above: Result Comment: Canc elled via OM: Order cancelled - Patient discharged Performed By: #### L 500.2500, L100.0100 ####[facility] [address] [place], [address] NEUT% Normal 47-70 [facility] Comment on above: Result Comment: Canc elled via OM: Order cancelled - Patient discharged Performed By: #### L 500.2500, L100.0100 ####[facility] [address] [place], [address] PLT Normal 150-450 [facility] Comment on above: Result Comment: Canc elled via OM: Order cancelled - Patient discharged Performed By: #### L 500.2500, L100.0100 ####[facility] [address] [place], [address] RBC Normal 4.2-5.4 [facility] Comment on above: Result Comment: Canc elled via OM: Order cancelled - Patient discharged Performed By: #### L 500.2500, L100.0100 ####[facility] [address] [place], [address] RDW CV Normal 11.6-14.6 [facility] Comment on above: Result Comment: Canc elled via OM: Order cancelled - Patient discharged Performed By: #### L 500.2500, L100.0100 ####[facility] [address] [place], [address] RDW SD Normal 35.1-43.9 [facility] Comment on above: Result Comment: Canc elled via OM: Order cancelled - Patient discharged Performed By: #### L 500.2500, L100.0100 ####[facility] [address] [place], [address] WBC Normal 4.4-11.0 [facility] Comment on above: Result Comment: Canc elled via OM: Order cancelled - Patient discharged Performed By: #### L 500.2500, L100.0100 ####[facility] [address] [place], [address] CNOVon 08-01-2024 CNOV Normal [facility] Gram Stainon 07-30-2024 GS Gram Stain 3+ Red Cell Stroma Normal [facility] Comment on above: Performed By: #### M 100.3000, M100.4001, M100.2000 ####[facility] [address] [place], [address] Wound Cultureon 07-30-2024 WC No growth aerobically. Normal [facility] Comment on above: Performed By: #### M 100.3000, M100.4001, M1.1999 ####[facility] [address] [place], [address] CNOVon 07-29-2024 CNOV Normal [facility] Wound Ctr History AND Physic pradip 07-29-2024 Wound Ctr History & Physical Normal [facility] CNPNon 07-28-2024 CNPN Normal [facility] Basic Metabolic Profile (BMP )on 07-25-2024 BUN Normal 7-18 [facility] Comment on above: Result Comment: Canc elled via OM: Order cancelled - Patient discharged Performed By: #### L 500.2500, L100.0100 ####[facility] [address] [place], [address] BUN/CRE Normal 10-20 [facility] Comment on above: Result Comment: Canc elled via OM: Order cancelled - Patient discharged Performed By: #### L 500.2500, L100.0100 ####[facility] [address] [place], [address] CA,Total Normal 8.5-10.1 [facility] Comment on above: Result Comment: Canc elled via OM: Order cancelled - Patient discharged Performed By: #### L 500.2500, L100.0100 ####[facility] [address] [place], [address] CL Normal 98-107 [facility] Comment on above: Result Comment: Canc elled via OM: Order cancelled - Patient discharged Performed By: #### L 500.2500, L100.0100 ####[facility] [address] [place], [address] CO2 Normal 21.0-32.0 [facility] Comment on above: Result Comment: Canc elled via OM: Order cancelled - Patient discharged Performed By: #### L 500.2500, L100.0100 ####[facility] [address] [place], [address] CREAT,SERUM Normal 0.55-1.02 [facility] Comment on above: Result Comment: Canc elled via OM: Order cancelled - Patient discharged Performed By: #### L 500.2500, L100.0100 ####[facility] [address] [place], [address] EST GFR Normal >60 [facility] Comment on above: Result Comment: Canc elled via OM: Order cancelled - Patient discharged Performed By: #### L 500.2500, L100.0100 ####[facility] [address] [place], [address] EST GFR - AA Normal >60 [facility] Comment on above: Result Comment: Canc elled via OM: Order cancelled - Patient discharged Performed By: #### L 500.2500, L100.0100 ####[facility] [address] [place], [address] GAP Normal 5-15 [facility] Comment on above: Result Comment: Canc elled via OM: Order cancelled - Patient discharged Performed By: #### L 500.2500, L100.0100 ####[facility] [address] [place], [address] GLU Normal 74-106 [facility] Comment on above: Result Comment: Canc elled via OM: Order cancelled - Patient discharged Performed By: #### L 500.2500, L100.0100 ####[facility] [address] [place], [address] Potassium Normal 3.5-5.1 [facility] Comment on above: Result Comment: Canc elled via OM: Order cancelled - Patient discharged Performed By: #### L 500.2500, L100.0100 ####[facility] [address] [place], [address] Basic Metabolic Profile (BMP) Normal 136-145 [facility] Comment on above: Result Comment: Canc elled via OM: Order cancelled - Patient discharged Performed By: #### L 500.2500, L100.0100 ####[facility] [address] [place], [address] CBC W/Diff, Automatedon 11-0 Absolute Neut Normal 2.0-7.7 [facility] Comment on above: Result Comment: Canc elled via OM: Order cancelled - Patient discharged Performed By: #### L 500.2500, L100.0100 ####[facility] [address] [place], [address] HCT Normal 37-47 [facility] Comment on above: Result Comment: Canc elled via OM: Order cancelled - Patient discharged Performed By: #### L 500.2500, L100.0100 ####[facility] [address] [place], [address] HGB Normal 12.0-15.0 [facility] Comment on above: Result Comment: Canc elled via OM: Order cancelled - Patient discharged Performed By: #### L 500.2500, L100.0100 ####[facility] [address] [place], [address] MCH Normal 27.0-32.0 [facility] Comment on above: Result Comment: Canc elled via OM: Order cancelled - Patient discharged Performed By: #### L 500.2500, L100.0100 ####[facility] [address] [place], [address] MCHC Normal 32-36 [facility] Comment on above: Result Comment: Canc elled via OM: Order cancelled - Patient discharged Performed By: #### L 500.2500, L100.0100 ####[facility] [address] [place], [address] MCV Normal 81-99 [facility] Comment on above: Result Comment: Canc elled via OM: Order cancelled - Patient discharged Performed By: #### L 500.2500, L100.0100 ####[facility] [address] [place], [address] NEUT% Normal 47-70 [facility] Comment on above: Result Comment: Canc elled via OM: Order cancelled - Patient discharged Performed By: #### L 500.2500, L100.0100 ####[facility] [address] [place], [address] PLT Normal 150-450 [facility] Comment on above: Result Comment: Canc elled via OM: Order cancelled - Patient discharged Performed By: #### L 500.2500, L100.0100 ####[facility] [address] [place], [address] RBC Normal 4.2-5.4 [facility] Comment on above: Result Comment: Canc elled via OM: Order cancelled - Patient discharged Performed By: #### L 500.2500, L100.0100 ####[facility] [address] [place], [address] RDW CV Normal 11.6-14.6 [facility] Comment on above: Result Comment: Canc elled via OM: Order cancelled - Patient discharged Performed By: #### L 500.2500, L100.0100 ####[facility] [address] [place], [address] RDW SD Normal 35.1-43.9 [facility] Comment on above: Result Comment: Canc elled via OM: Order cancelled - Patient discharged Performed By: #### L 500.2500, L100.0100 ####[facility] [address] [place], [address] WBC Normal 4.4-11.0 [facility] Comment on above: Result Comment: Canc elled via OM: Order cancelled - Patient discharged Performed By: #### L 500.2500, L100.0100 ####[facility] [address] [place], [address] CNOVon 07-24-2024 CNOV Normal [facility] XR KNEE 2V AP/LAT LTon 07-24 XR KNEE 2V AP/LAT LT * * *Final Report* * * DATE OF EXAM: Jul 24 2024 12:53PM ASHLEY 5206 - XR KNEE 2V AP/LAT LT / PROCEDURE REASON: multiple diagnoses * * * * Physician Interpretation * * * * EXAM(s): XR KNEE 2V AP/LAT LT EXAM DATE/TIME: 07/24/2024 12:53 PM HISTORY: 73 years old Clinical information: Chronic pain of left knee Chronic pain of left knee left knee f/u weightbearing when possible TECHNIQUE: Images: XR KNEE 2V AP/LAT LT Comparison: Left knee radiographs 07/03/2024, 06/19/2024, 10/30/2023. 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 Hardware is intact without periprosthetic fracture or osteolysis. Alignment is unchanged from prior. No acute fracture or dislocation. Mild anterior knee soft tissue edema without subcutaneous gas. IMPRESSION: Revision left total knee arthroplasty without hardware complication. [employer] Checker: PSCB Transcribe Date/Time: Jul 29 2024 7:24A Dictated by : MORENA GRIGGS MD This examination was interpreted and the report reviewed and electronically signed by: MORENA GRIGGS MD on Jul 29 2024 7:27AM EST [id number] [facility] 07-22-2024 [facility] History AND Physic pradip 07-22-2024 Wound Ctr History & Physical Normal [facility] CNPNon 07-21-2024 CNPN Normal [facility] Bedside Glucoseon 07-19-2024 FINGERSTICK GLU 105 mg/dL Normal 74-106 [facility] Comment on above: Result Comment: PRASANTH ARAUJO OF PATIENT CARE PER NURSING PROTOCOL Performed By: #### L 501.080 ####[facility] [address] [place], [address] Basic Metabolic Profile (BMP )on 07-18-2024 BUN/CRE 30.8 RATIO High 10-20 [facility] Comment on above: Performed By: #### L 100.0100, L500.2500 ####[facility] [address] [place], [address] CA,Total 9.2 mg/dL Normal 8.5-10.1 [facility] Comment on above: Performed By: #### L 100.0100, L500.2500 ####[facility] [address] [place], [address] Chloride [Moles/Vol] 109 mmol/L High 98-107 [facility] Comment on above: Performed By: #### L 100.0100, L500.2500 ####[facility] [address] [place], [address] CO2 [Moles/Vol] 26.0 mmol/L Normal 21.0-32.0 [facility] Comment on above: Performed By: #### L 100.0100, L500.2500 ####[facility] [address] [place], [address] Creatinine [Mass/Vol] 1.07 mg/dL High 0.55-1.02 [facility] Comment on above: Result Comment: The validity of the calculated GFR GFRAA in patients over70 years has not been determined. Clinical correlation isessential. Performed By: #### L 100.0100, L500.2500 ####[facility] [address] [place], [address] ECRCL 44.28 ml/min Normal [facility] Comment on above: Performed By: #### L 100.0100, L500.2500 ####[facility] [address] [place], [address] EST GFR - AA 64 mL/min Normal >60 [facility] Comment on above: Result Comment: Afri can Guinean GFR Calc Performed By: #### L 100.0100, L500.2500 ####[facility] [address] [place], [address] GAP 5 Normal 5-15 [facility] Comment on above: Performed By: #### L 100.0100, L500.2500 ####[facility] [address] [place], [address] GFR/1.73 sq M.predicted among non-blacks MDRD (S/P/Bld) [Vol rate/Area] 53 mL/min/{1.73_m2} Low >60 [facility] Comment on above: Result Comment: Non- GFR Calc Performed By: #### L 100.0100, L500.2500 ####[facility] [address] [place], [address] Glucose [Mass/Vol] 123 mg/dL High 74-106 [facility] Comment on above: Result Comment: Fast ing Glucose result from 100 to 125 mg/dLsuggests IMPAIRED HOMEOSTASIS per A.D.A. criteria. Performed By: #### L 100.0100, L500.2500 ####[facility] [address] [place], [address] Potassium [Moles/Vol] 3.9 mmol/L Normal 3.5-5.1 [facility] Comment on above: Performed By: #### L 100.0100, L500.2500 ####[facility] [address] [place], [address] Sodium [Moles/Vol] 140 mmol/L Normal 136-145 [facility] Comment on above: Performed By: #### L 100.0100, L500.2500 ####[facility] [address] [place], [address] Urea nitrogen [Mass/Vol] 33 mg/dL High 7-18 [facility] Comment on above: Performed By: #### L 100.0100, L500.2500 ####[facility] [address] [place], [address] Bedside Glucoseon 07-18-2023 FINGERSTICK GLU 111 mg/dL High 74-106 [facility] Comment on above: Result Comment: PRASANTH ARAUJO OF PATIENT CARE PER NURSING PROTOCOL Performed By: #### L 501.080 ####[facility] [address] [place], [address] CBC W/Diff, Automatedon - Absolute Lymph 1.47 X10 3/uL Normal 0.83-4.51 [facility] Comment on above: Performed By: #### L 100.0100, L500.2500 ####[facility] [address] [place], [address] Absolute Neut 4.2 X10 3/uL Normal 2.0-7.7 [facility] Comment on above: Performed By: #### L 100.0100, L500.2500 ####[facility] [address] [place], [address] Basophils/100 WBC (Bld) 1.0 % Normal 0-1 [facility] Comment on above: Performed By: #### L 100.0100, L500.2500 ####[facility] [address] [place], [address] Eosinophils/100 WBC (Bld) 5.4 % High 0-5 [facility] Comment on above: Performed By: #### L 100.0100, L500.2500 ####[facility] [address] [place], [address] Erythrocyte distribution width (RBC) [Ratio] 16.3 % High 11.6-14.6 [facility] Comment on above: Performed By: #### L 100.0100, L500.2500 ####[facility] [address] [place], [address] Hematocrit (Bld) [Volume fraction] 36.4 % Low 37-47 [facility] Comment on above: Performed By: #### L 100.0100, L500.2500 ####[facility] [address] [place], [address] Hemoglobin (Bld) [Mass/Vol] 11.3 g/dL Low 12.0-15.0 [facility] Comment on above: Performed By: #### L 100.0100, L500.2500 ####[facility] [address] [place], [address] IG% 0.600 Normal 0.0-0.9 [facility] Comment on above: Result Comment: IG% - Immature Granulocytes (promyelocytes, myelocytes andmetamyelocytes) > 1% indicates that a LEFT SHIFT is Present. Performed By: #### L 100.0100, L500.2500 ####[facility] [address] [place], [address] Lymphocytes/100 WBC (Bld) 21.4 % Normal 19-41 [facility] Comment on above: Performed By: #### L 100.0100, L500.2500 ####[facility] [address] [place], [address] MCH (RBC) [Entitic mass] 28.7 pg Normal 27.0-32.0 [facility] Comment on above: Performed By: #### L 100.0100, L500.2500 ####[facility] [address] [place], [address] MCHC (RBC) [Mass/Vol] 31.0 g/dL Low 32-36 [facility] Comment on above: Performed By: #### L 100.0100, L500.2500 ####[facility] [address] [place], [address] MCV (RBC) [Entitic vol] 92.4 fL Normal 81-99 [facility] Comment on above: Performed By: #### L 100.0100, L500.2500 ####[facility] [address] [place], [address] Monocytes/100 WBC (Bld) 10.5 % High 0-10 [facility] Comment on above: Performed By: #### L 100.0100, L500.2500 ####[facility] [address] [place], [address] Neutrophils/100 WBC (Bld) 61.1 % Normal 47-70 [facility] Comment on above: Performed By: #### L 100.0100, L500.2500 ####[facility] [address] [place], [address] Nucleated RBC (Bld) [#/Vol] 0 10*3/uL Normal 0-5 [facility] Comment on above: Performed By: #### L 100.0100, L500.2500 ####[facility] [address] [place], [address] Platelet mean volume (Bld) [Entitic vol] 10.2 fL Normal 6.2-12.0 [facility] Comment on above: Performed By: #### L 100.0100, L500.2500 ####[facility] [address] [place], [address] Platelets (Bld) [#/Vol] 291 10*3/uL Normal 150-450 [facility] Comment on above: Performed By: #### L 100.0100, L500.2500 ####[facility] [address] [place], [address] RBC (Bld) [#/Vol] 3.94 10*6/uL Low 4.2-5.4 [facility] Comment on above: Performed By: #### L 100.0100, L500.2500 ####[facility] [address] [place], [address] RDW SD 55.3 fl High 35.1-43.9 [facility] Comment on above: Performed By: #### L 100.0100, L500.2500 ####[facility] [address] [place], [address] WBC (Bld) [#/Vol] 6.9 10*3/uL Normal 4.4-11.0 [facility] Comment on above: Performed By: #### L 100.0100, L500.2500 ####[facility] [address] [place], [address] Bedside Glucoseon 07-17-2024 FINGERSTICK GLU 111 mg/dL High 74-106 [facility] Comment on above: Result Comment: PRASANTH GEMENT OF PATIENT CARE PER NURSING PROTOCOL Performed By: #### L 501.080 ####[facility] [address] [place], [address] Bedside Glucoseon 07-16-2024 FINGERSTICK GLU 121 mg/dL High 74-106 [facility] Comment on above: Result Comment: PRASANTH GEMENT OF PATIENT CARE PER NURSING PROTOCOL Performed By: #### L 501.080 ####[facility] [address] [place], [address] CNOVon 07-16-2024 CNOV Normal [facility] CNPNon 07-16-2024 CNPN Normal [facility] Bedside Glucoseon 07-15-2024 FINGERSTICK GLU 113 mg/dL High 74-106 [facility] Comment on above: Result Comment: PRASANTH GEMENT OF PATIENT CARE PER NURSING PROTOCOL Performed By: #### L 501.080 ####[facility] [address] [place], [address] Bedside Glucoseon 07-14-2024 FINGERSTICK GLU 108 mg/dL High 74-106 [facility] Comment on above: Result Comment: PRASANTH GEMENT OF PATIENT CARE PER NURSING PROTOCOL Performed By: #### L 501.080 ####[facility] [address] [place], [address] CNPNon 07-14-2024 CNPN Normal [facility] Bedside Glucoseon 07-13-2024 FINGERSTICK GLU 147 mg/dL High 74-106 [facility] Comment on above: Result Comment: PRASANTH GEMENT OF PATIENT CARE PER NURSING PROTOCOL Performed By: #### L 501.080 ####[facility] [address] [place], [address] Bedside Glucoseon 07-12-2024 FINGERSTICK GLU 96 mg/dL Normal 74-106 [facility] Comment on above: Result Comment: PRASANTH GEMENT OF PATIENT CARE PER NURSING PROTOCOL Performed By: #### L 501.080 ####[facility] [address] [place], [address] Basic Metabolic Profile (BMP )on 07-11-2024 BUN/CRE 29.5 RATIO High -20 [facility] Comment on above: Performed By: #### L 100.0100, L500.2500 ####[facility] [address] [place], [address] CA,Total 9.6 mg/dL Normal 8.5-10.1 [facility] Comment on above: Performed By: #### L 100.0100, L500.2500 ####[facility] [address] [place], [address] Chloride [Moles/Vol] 107 mmol/L Normal 98-107 [facility] Comment on above: Performed By: #### L 100.0100, L500.2500 ####[facility] [address] [place], [address] CO2 [Moles/Vol] 24.0 mmol/L Normal 21.0-32.0 [facility] Comment on above: Performed By: #### L 100.0100, L500.2500 ####[facility] [address] [place], [address] Creatinine [Mass/Vol] 0.88 mg/dL Normal 0.55-1.02 [facility] Comment on above: Result Comment: The validity of the calculated GFR GFRAA in patients over70 years has not been determined. Clinical correlation isessential. Performed By: #### L 100.0100, L500.2500 ####[facility] [address] [place], [address] ECRCL 53.71 ml/min Normal [facility] Comment on above: Performed By: #### L 100.0100, L500.2500 ####[facility] [address] [place], [address] EST GFR - AA 80 mL/min Normal >60 [facility] Comment on above: Result Comment: Afri can Guinean GFR Calc Performed By: #### L 100.0100, L500.2500 ####[facility] [address] [place], [address] GAP 6 Normal 5-15 [facility] Comment on above: Performed By: #### L 100.0100, L500.2500 ####[facility] [address] [place], [address] GFR/1.73 sq M.predicted among non-blacks MDRD (S/P/Bld) [Vol rate/Area] 66 mL/min/{1.73_m2} Normal >60 [facility] Comment on above: Result Comment: Non- GFR Calc Performed By: #### L 100.0100, L500.2500 ####[facility] [address] [place], [address] Glucose [Mass/Vol] 150 mg/dL High 74-106 [facility] Comment on above: Result Comment: Fast ing Glucose result greater than or equal to 126 mg/dLsuggests DIABETES MELLITUS per A.D.A. criteria. Performed By: #### L 100.0100, L500.2500 ####[facility] [address] [place], [address] Potassium [Moles/Vol] 4.1 mmol/L Normal 3.5-5.1 [facility] Comment on above: Performed By: #### L 100.0100, L500.2500 ####[facility] [address] [place], [address] Sodium [Moles/Vol] 137 mmol/L Normal 136-145 [facility] Comment on above: Performed By: #### L 100.0100, L500.2500 ####[facility] [address] [place], [address] Urea nitrogen [Mass/Vol] 26 mg/dL High 7-18 [facility] Comment on above: Performed By: #### L 100.0100, L500.2500 ####[facility] [address] [place], [address] Bedside Glucoseon 07-11-2024 FINGERSTICK GLU 128 mg/dL High 74-106 [facility] Comment on above: Result Comment: PRASANTH ARAUJO OF PATIENT CARE PER NURSING PROTOCOL Performed By: #### L 501.080 ####[facility] [address] [place], [address] CBC W/Diff, Automatedon 10- Absolute Lymph 1.70 X10 3/uL Normal 0.83-4.51 [facility] Comment on above: Performed By: #### L 100.0100, L500.2500 ####[facility] [address] [place], [address] Absolute Neut 5.6 X10 3/uL Normal 2.0-7.7 [facility] Comment on above: Performed By: #### L 100.0100, L500.2500 ####[facility] [address] [place], [address] Basophils/100 WBC (Bld) 1.0 % Normal 0-1 [facility] Comment on above: Performed By: #### L 100.0100, L500.2500 ####[facility] [address] [place], [address] Eosinophils/100 WBC (Bld) 3.2 % Normal 0-5 [facility] Comment on above: Performed By: #### L 100.0100, L500.2500 ####[facility] [address] [place], [address] Erythrocyte distribution width (RBC) [Ratio] 16.4 % High 11.6-14.6 [facility] Comment on above: Performed By: #### L 100.0100, L500.2500 ####[facility] [address] [place], [address] Hematocrit (Bld) [Volume fraction] 38.4 % Normal 37-47 [facility] Comment on above: Performed By: #### L 100.0100, L500.2500 ####[facility] [address] [place], [address] Hemoglobin (Bld) [Mass/Vol] 11.8 g/dL Low 12.0-15.0 [facility] Comment on above: Performed By: #### L 100.0100, L500.2500 ####[facility] [address] [place], [address] IG% 0.500 Normal 0.0-0.9 [facility] Comment on above: Result Comment: IG% - Immature Granulocytes (promyelocytes, myelocytes andmetamyelocytes) > 1% indicates that a LEFT SHIFT is Present. Performed By: #### L 100.0100, L500.2500 ####[facility] [address] [place], [address] Lymphocytes/100 WBC (Bld) 20.3 % Normal 19-41 [facility] Comment on above: Performed By: #### L 100.0100, L500.2500 ####[facility] [address] [place], [address] MCH (RBC) [Entitic mass] 27.8 pg Normal 27.0-32.0 [facility] Comment on above: Performed By: #### L 100.0100, L500.2500 ####[facility] [address] [place], [address] MCHC (RBC) [Mass/Vol] 30.7 g/dL Low 32-36 [facility] Comment on above: Performed By: #### L 100.0100, L500.2500 ####[facility] [address] [place], [address] MCV (RBC) [Entitic vol] 90.6 fL Normal 81-99 [facility] Comment on above: Performed By: #### L 100.0100, L500.2500 ####[facility] [address] [place], [address] Monocytes/100 WBC (Bld) 8.5 % Normal 0-10 [facility] Comment on above: Performed By: #### L 100.0100, L500.2500 ####[facility] [address] [place], [address] Neutrophils/100 WBC (Bld) 66.5 % Normal 47-70 [facility] Comment on above: Performed By: #### L 100.0100, L500.2500 ####[facility] [address] [place], [address] Nucleated RBC (Bld) [#/Vol] 0 10*3/uL Normal 0-5 [facility] Comment on above: Performed By: #### L 100.0100, L500.2500 ####[facility] [address] [place], [address] Platelet mean volume (Bld) [Entitic vol] 9.7 fL Normal 6.2-12.0 [facility] Comment on above: Performed By: #### L 100.0100, L500.2500 ####[facility] [address] [place], [address] Platelets (Bld) [#/Vol] 550 10*3/uL High 150-450 [facility] Comment on above: Performed By: #### L 100.0100, L500.2500 ####[facility] [address] [place], [address] RBC (Bld) [#/Vol] 4.24 10*6/uL Normal 4.2-5.4 [facility] Comment on above: Performed By: #### L 100.0100, L500.2500 ####[facility] [address] [place], [address] RDW SD 54.1 fl High 35.1-43.9 [facility] Comment on above: Performed By: #### L 100.0100, L500.2500 ####[facility] [address] [place], [address] WBC (Bld) [#/Vol] 8.4 10*3/uL Normal 4.4-11.0 [facility] Comment on above: Performed By: #### L 100.0100, L500.2500 ####[facility] [address] [place], [address] CNOVon 07-11-2024 CNOV Normal [facility] Bedside Glucoseon 07-10-2024 FINGERSTICK GLU 118 mg/dL High 74-106 [facility] Comment on above: Result Comment: PRASANTH GEMENT OF PATIENT CARE PER NURSING PROTOCOL Performed By: #### L 501.080 ####[facility] [address] [place], [address] CNOVon 07-10-2024 CNOV Normal [facility] Bedside Glucoseon 07-09-2024 FINGERSTICK GLU 122 mg/dL High 74-106 [facility] Comment on above: Result Comment: PRASANTH GEMENT OF PATIENT CARE PER NURSING PROTOCOL Performed By: #### L 501.080 ####[facility] [address] [place], [address] Bedside Glucoseon 07-08-2024 FINGERSTICK GLU 113 mg/dL High 74-106 [facility] Comment on above: Result Comment: PRASANTH GEMENT OF PATIENT CARE PER NURSING PROTOCOL Performed By: #### L 501.080 ####[facility] [address] [place], [address] COVID 19 AG RAPID (RN JOSE Kumar)on 07-08-2024 SARS-CoV-2 (COVID-19) RNA BOOGIE+probe Ql (Unsp spec) Normal [facility] Comment on above: Performed By: #### M 100.505 ####[facility] [address] [place], [address] Bedside Glucoseon 07-07-2024 FINGERSTICK GLU 105 mg/dL Normal 74-106 [facility] Comment on above: Result Comment: PRASANTH GEMENT OF PATIENT CARE PER NURSING PROTOCOL Performed By: #### L 501.080 ####[facility] [address] [place], [address] FINGERSTICK GLU 68 mg/dL Low 74-106 [facility] Comment on above: Result Comment: PRASANTH GEMENT OF PATIENT CARE PER NURSING PROTOCOL Performed By: #### L 501.080 ####[facility] [address] [place], [address] FINGERSTICK GLU 61 mg/dL Low 74-106 [facility] Comment on above: Result Comment: PRASANTH GEMENT OF PATIENT CARE PER NURSING PROTOCOL Performed By: #### L 501.080 ####[facility] [address] [place], [address] FINGERSTICK GLU 49 mg/dL Low 74-106 [facility] Comment on above: Result Comment: PRASANTH GEMENT OF PATIENT CARE PER NURSING PROTOCOL Performed By: #### L 501.080 ####[facility] [address] [place], [address] Bedside Glucoseon 07-06-2024 FINGERSTICK GLU 84 mg/dL Normal 74-106 [facility] Comment on above: Result Comment: PRASANTH GEMENT OF PATIENT CARE PER NURSING PROTOCOL Performed By: #### L 501.080 ####[facility] [address] [place], [address] Basic Metabolic Profile (BMP )on 07-05-2024 BUN/CRE 21.4 RATIO High 10-20 [facility] Comment on above: Performed By: #### L 500.2500 ####[facility] [address] [place], [address] CA,Total 9.2 mg/dL Normal 8.5-10.1 [facility] Comment on above: Performed By: #### L 500.2500 ####[facility] [address] [place], [address] Chloride [Moles/Vol] 106 mmol/L Normal 98-107 [facility] Comment on above: Performed By: #### L 500.2500 ####[facility] [address] [place], [address] CO2 [Moles/Vol] 26.0 mmol/L Normal 21.0-32.0 [facility] Comment on above: Performed By: #### L 500.2500 ####[facility] [address] [place], [address] Creatinine [Mass/Vol] 0.80 mg/dL Normal 0.55-1.02 [facility] Comment on above: Result Comment: The validity of the calculated GFR GFRAA in patients over70 years has not been determined. Clinical correlation isessential. Performed By: #### L 500.2500 ####[facility] [address] [place], [address] ECRCL 59.45 ml/min Normal [facility] Comment on above: Performed By: #### L 500.2500 ####[facility] [address] [place], [address] EST GFR - AA 90 mL/min Normal >60 [facility] Comment on above: Result Comment: Afri can Guinean GFR Calc Performed By: #### L 500.2500 ####[facility] [address] [place], [address] GAP 5 Normal 5-15 [facility] Comment on above: Performed By: #### L 500.2500 ####[facility] [address] [place], [address] GFR/1.73 sq M.predicted among non-blacks MDRD (S/P/Bld) [Vol rate/Area] 75 mL/min/{1.73_m2} Normal >60 [facility] Comment on above: Result Comment: Non- GFR Calc Performed By: #### L 500.2500 ####[facility] [address] [place], [address] Glucose [Mass/Vol] 106 mg/dL Normal 74-106 [facility] Comment on above: Result Comment: Fast ing Glucose result from 100 to 125 mg/dLsuggests IMPAIRED HOMEOSTASIS per A.D.A. criteria. Performed By: #### L 500.2500 ####[facility] [address] [place], [address] Potassium [Moles/Vol] 3.8 mmol/L Normal 3.5-5.1 [facility] Comment on above: Performed By: #### L 500.2500 ####[facility] [address] [place], [address] Sodium [Moles/Vol] 137 mmol/L Normal 136-145 [facility] Comment on above: Performed By: #### L 500.2500 ####[facility] [id number] [place], [address] Urea nitrogen [Mass/Vol] 17 mg/dL Normal 7-18 [facility] Comment on above: Performed By: #### L 500.2500 ####[facility] [id number] [place], [address] Bedside Glucoseon 07-05-2024 FINGERSTICK GLU 91 mg/dL Normal 74-106 [facility] Comment on above: Result Comment: PRASANTH ARAUJO OF PATIENT CARE PER NURSING PROTOCOL Performed By: #### L 501.080 ####[facility] [address] [place], [address] Basic Metabolic Profile (BMP )on 07-04-2024 BUN/CRE 23.0 RATIO High 10-20 [facility] Comment on above: Performed By: #### L 500.2500, L100.0100 ####[facility] [address] [place], [address] CA,Total 8.8 mg/dL Normal 8.5-10.1 [facility] Comment on above: Performed By: #### L 500.2500, L100.0100 ####[facility] [address] [place], [address] Chloride [Moles/Vol] 110 mmol/L High 98-107 [facility] Comment on above: Performed By: #### L 500.2500, L100.0100 ####[facility] [address] [place], [address] CO2 [Moles/Vol] 26.0 mmol/L Normal 21.0-32.0 [facility] Comment on above: Performed By: #### L 500.2500, L100.0100 ####[facility] [address] [place], [address] Creatinine [Mass/Vol] 0.83 mg/dL Normal 0.55-1.02 [facility] Comment on above: Result Comment: The validity of the calculated GFR GFRAA in patients over70 years has not been determined. Clinical correlation isessential. Performed By: #### L 500.2500, L100.0100 ####[facility] [address] [place], [address] ECRCL 57.30 ml/min Normal [facility] Comment on above: Performed By: #### L 500.2500, L100.0100 ####[facility] [address] [place], [address] EST GFR - AA 86 mL/min Normal >60 [facility] Comment on above: Result Comment: Afri can Guine[place] GFR Calc Performed By: #### L 500.2500, L100.0100 ####[facility] [address] [place], [address] GAP 6 Normal 5-15 [facility] Comment on above: Performed By: #### L 500.2500, L100.0100 ####[facility] [address] [place], [address] GFR/1.73 sq M.predicted among non-blacks MDRD (S/P/Bld) [Vol rate/Area] 71 mL/min/{1.73_m2} Normal >60 [facility] Comment on above: Result Comment: Non- GFR Calc Performed By: #### L 500.2500, L100.0100 ####[facility] [address] [place], [address] Glucose [Mass/Vol] 35 mg/dL Invalid Interpretation Code 74-106 [facility] Comment on above: Result Comment: Crit ical Result(s) Called at: 07:33:21 07/04/2024 by Rolando to Marleny Soto. Results read back by same.Glucose result less than 50 mg/dL suggests HYPOGLYCEMIA. Performed By: #### L 500.2500, L100.0100 ####[facility] [address] [place], [address] Potassium [Moles/Vol] 3.1 mmol/L Low 3.5-5.1 [facility] Comment on above: Performed By: #### L 500.2500, L100.0100 ####[facility] [address] [place], [address] Sodium [Moles/Vol] 142 mmol/L Normal 136-145 [facility] Comment on above: Performed By: #### L 500.2500, L100.0100 ####[facility] [address] [place], [address] Urea nitrogen [Mass/Vol] 19 mg/dL High 7-18 [facility] Comment on above: Performed By: #### L 500.2500, L100.0100 ####[facility] [address] [place], [address] Bedside Glucoseon 07-04-2024 FINGERSTICK GLU 109 mg/dL High 74-106 [facility] Comment on above: Result Comment: PRASANTH ARAUJO OF PATIENT CARE PER NURSING PROTOCOL Performed By: #### L 501.080 ####[facility] [address] [place], [address] FINGERSTICK GLU 34 mg/dL Invalid Interpretation Code 74-106 [facility] Comment on above: Result Comment: [facility] k GivenMANAGEMENT OF PATIENT CARE PER NURSING PROTOCOL Performed By: #### L 501.080 ####[facility] [address] [place], [address] CBC W/Diff, Automatedon 10 Absolute Lymph 3.05 X10 3/uL Normal 0.83-4.51 [facility] Comment on above: Performed By: #### L 500.2500, L100.0100 ####[facility] [address] [place], [address] Absolute Neut 8.9 X10 3/uL High 2.0-7.7 [facility] Comment on above: Performed By: #### L 500.2500, L100.0100 ####[facility] [address] [place], [address] Basophils/100 WBC (Bld) 1.0 % Normal 0-1 [facility] Comment on above: Performed By: #### L 500.2500, L100.0100 ####[facility] [address] [place], [address] Eosinophils/100 WBC (Bld) 1.9 % Normal 0-5 [facility] Comment on above: Performed By: #### L 500.2500, L100.0100 ####[facility] [address] [place], [address] Erythrocyte distribution width (RBC) [Ratio] 17.0 % High 11.6-14.6 [facility] Comment on above: Performed By: #### L 500.2500, L100.0100 ####[facility] [address] [place], [address] Hematocrit (Bld) [Volume fraction] 35.4 % Low 37-47 [facility] Comment on above: Performed By: #### L 500.2500, L100.0100 ####[facility] [address] [place], [address] Hemoglobin (Bld) [Mass/Vol] 11.1 g/dL Low 12.0-15.0 [facility] Comment on above: Performed By: #### L 500.2500, L100.0100 ####[facility] [address] [place], [address] IG% 1.000 High 0.0-0.9 [facility] Comment on above: Result Comment: IG% - Immature Granulocytes (promyelocytes, myelocytes andmetamyelocytes) > 1% indicates that a LEFT SHIFT is Present. Performed By: #### L 500.2500, L100.0100 ####[facility] [address] [place], [address] Lymphocytes/100 WBC (Bld) 22.4 % Normal 19-41 [facility] Comment on above: Performed By: #### L 500.2500, L100.0100 ####[facility] [address] [place], [address] MCH (RBC) [Entitic mass] 28.5 pg Normal 27.0-32.0 [facility] Comment on above: Performed By: #### L 500.2500, L100.0100 ####[facility] [address] [place], [address] MCHC (RBC) [Mass/Vol] 31.4 g/dL Low 32-36 [facility] Comment on above: Performed By: #### L 500.2500, L100.0100 ####[facility] [address] [place], [address] MCV (RBC) [Entitic vol] 91.0 fL Normal 81-99 [facility] Comment on above: Performed By: #### L 500.2500, L100.0100 ####[facility] [address] [place], [address] Monocytes/100 WBC (Bld) 8.4 % Normal 0-10 [facility] Comment on above: Performed By: #### L 500.2500, L100.0100 ####[facility] [address] [place], [address] Neutrophils/100 WBC (Bld) 65.3 % Normal 47-70 [facility] Comment on above: Performed By: #### L 500.2500, L100.0100 ####[facility] [address] [place], [address] Nucleated RBC (Bld) [#/Vol] 0 10*3/uL Normal 0-5 [facility] Comment on above: Performed By: #### L 500.2500, L100.0100 ####[facility] [address] [place], [address] Platelet mean volume (Bld) [Entitic vol] 9.4 fL Normal 6.2-12.0 [facility] Comment on above: Performed By: #### L 500.2500, L100.0100 ####[facility] [address] [place], [address] Platelets (Bld) [#/Vol] 736 10*3/uL High 150-450 [facility] Comment on above: Performed By: #### L 500.2500, L100.0100 ####[facility] [address] [place], [address] RBC (Bld) [#/Vol] 3.89 10*6/uL Low 4.2-5.4 [facility] Comment on above: Performed By: #### L 500.2500, L100.0100 ####[facility] [address] [place], [address] RDW SD 55.8 fl High 35.1-43.9 [facility] Comment on above: Performed By: #### L 500.2500, L100.0100 ####[facility] [address] [place], [address] WBC (Bld) [#/Vol] 13.6 10*3/uL High 4.4-11.0 [facility] Comment on above: Performed By: #### L 500.2500, L100.0100 ####[facility] [address] [place], [address] CNOVon 07-03-2024 CNOV Normal [facility] XR KNEE 2V AP/LAT LTon 07-03 XR KNEE 2V AP/LAT LT * * *Final Report* * * DATE OF EXAM: Jul 03 2024 1:09PM ASHLEY 5206 - XR KNEE 2V AP/LAT LT / PROCEDURE REASON: multiple diagnoses * * * * Physician Interpretation * * * * EXAMINATION: XR KNEE 2V AP/LAT LT PATIENT/TECHNOLOGIST PROVIDED HISTORY: Follow-up for left knee replacement. Best images possible due to pt condition CLINICAL INFORMATION: 73 years old Female with Chronic pain of left knee TECHNIQUE: XR KNEE 2V AP/LAT LT Laterality: LEFT Number of different views (projections): 2 COMPARISON: Radiographs 06/19/2024, 10/30/2023 RESULT: Status post revision constrained LEFT total knee arthroplasty with patellar resurfacing unchanged in alignment and position. No periprosthetic lucency or fracture. Interval resolution of postoperative soft tissue gas. IMPRESSION: Revision LEFT total knee arthroplasty without apparent complication. Bakery Products Checker: DARLINE Transcribe Date/Time: Jul 07 2024 5:39P Dictated by : STEPHANIE BRIGGS DO This examination was interpreted and the report reviewed and electronically signed by: STEPHANIE BRIGGS DO on Jul 07 2024 5:41PM EST [id number] CN [facility] COVID 19 AG RAPID (ROSEMARY Kumar)on 07-01-2024 SARS-CoV-2 (COVID-19) RNA BOOGIE+probe Ql (Unsp spec) Normal [facility] Comment on above: Performed By: #### M 100.505 ####[facility] [address] [place], [address] Lipid Profileon 07-01-2024 Cholesterol [Mass/Vol] 98 mg/dL Normal 200 [facility] Comment on above: Result Comment: <200 mg/dL Desirable 200-240 mg/dL Borderline >240 mg/dL High Risk Performed By: #### L 500.4100, L506.1000 ####[facility] [address] [place], [address] Cholesterol in HDL [Mass/Vol] 33 mg/dL Low [facility] Comment on above: Result Comment: The drugs N-Acetylcysteine and Metamizole may falselydepress this assay. Reference Range HDL <40 mg/dL Low HDL Cholesterol HDL >or= 60 mg/dL High HDL Cholesterol Performed By: #### L 500.4100, L506.1000 ####[facility] [address] [place], [address] Cholesterol in LDL [Mass/Vol] 36 mg/dL Normal 0-130 [facility] Comment on above: Performed By: #### L 500.4100, L506.1000 ####[facility] [address] [place], [address] Cholesterol in VLDL [Mass/Vol] 29 mg/dL Normal 5-40 [facility] Comment on above: Performed By: #### L 500.4100, L506.1000 ####[facility] [address] [place], [address] Triglyceride [Mass/Vol] 144 mg/dL Normal [facility] Comment on above: Result Comment: The drugs N-Acetylcysteine and Metamizole may falselydepress this assay.Serum Triglycerides Reference Interval Normal <150 mg/dL Borderline high 150 - 199 mg/dL High 200 - 499 mg/dL Very High > or = 500 mg/dL Performed By: #### L 500.4100, L506.1000 ####[facility] [address] [place], [address] Vitamin D,25 Hydroxyon 07-01 Vitamin D 25-OH 64.6 ng/mL Normal [facility] Comment on above: Result Comment: Kourtney min D 25(OH) Status Range Deficiency <20 ng/mL (50nmol/L) Insufficiency 20 - 30 ng/mL (50 - 75 nmol/L) Sufficiency 30 - 100 ng/mL (75 - 250 nmol/L) Toxicity >100 ng/mL (>250 nmol/L) Performed By: #### L 500.4100, L506.1000 ####[facility] [address] [place], [address] Basic Metabolic Profile (BMP )on 06-28-2024 BUN/CRE 20.1 RATIO High 07-13 [facility] Comment on above: Performed By: #### L 100.0100, L500.2500 ####[facility] [address] [place], [address] CA,Total 8.8 mg/dL Normal 8.5-10.1 [facility] Comment on above: Performed By: #### L 100.0100, L500.2500 ####[facility] [address] [place], [address] Chloride [Moles/Vol] 106 mmol/L Normal 98-107 [facility] Comment on above: Performed By: #### L 100.0100, L500.2500 ####[facility] [address] [place], [address] CO2 [Moles/Vol] 26.0 mmol/L Normal 21.0-32.0 [facility] Comment on above: Performed By: #### L 100.0100, L500.2500 ####[facility] [address] [place], [address] Creatinine [Mass/Vol] 0.65 mg/dL Normal 0.55-1.02 [facility] Comment on above: Result Comment: The validity of the calculated GFR GFRAA in patients over70 years has not been determined. Clinical correlation isessential. Performed By: #### L 100.0100, L500.2500 ####[facility] [address] [place], [address] ECRCL 58.84 ml/min Normal [facility] Comment on above: Performed By: #### L 100.0100, L500.2500 ####[facility] [address] [place], [address] EST GFR - AA 115 mL/min Normal >60 [facility] Comment on above: Result Comment: Afri can Guinean GFR Calc Performed By: #### L 100.0100, L500.2500 ####[facility] [address] [place], [address] GAP 7 Normal 5-15 [facility] Comment on above: Performed By: #### L 100.0100, L500.2500 ####[facility] [address] [place], [address] GFR/1.73 sq M.predicted among non-blacks MDRD (S/P/Bld) [Vol rate/Area] 95 mL/min/{1.73_m2} Normal >60 [facility] Comment on above: Result Comment: Non- GFR Calc Performed By: #### L 100.0100, L500.2500 ####[facility] [address] [place], [address] Glucose [Mass/Vol] 123 mg/dL High 74-106 [facility] Comment on above: Result Comment: Fast ing Glucose result from 100 to 125 mg/dLsuggests IMPAIRED HOMEOSTASIS per A.D.A. criteria. Performed By: #### L 100.0100, L500.2500 ####[facility] [address] [place], [address] Potassium [Moles/Vol] 3.5 mmol/L Normal 3.5-5.1 [facility] Comment on above: Performed By: #### L 100.0100, L500.2500 ####[facility] [address] [place], [address] Sodium [Moles/Vol] 140 mmol/L Normal 136-145 [facility] Comment on above: Performed By: #### L 100.0100, L500.2500 ####[facility] [address] [place], [address] Urea nitrogen [Mass/Vol] 13 mg/dL Normal 7-18 [facility] Comment on above: Performed By: #### L 100.0100, L500.2500 ####[facility] [address] [place], [address] CBC W/Diff, Automatedon 10-0 5-2024 Absolute Lymph 1.61 X10 3/uL Normal 0.83-4.51 [facility] Comment on above: Performed By: #### L 100.0100, L500.2500 ####[facility] [address] [place], [address] Absolute Neut 7.0 X10 3/uL Normal 2.0-7.7 [facility] Comment on above: Performed By: #### L 100.0100, L500.2500 ####[facility] [address] [place], [address] Basophils/100 WBC (Bld) 0.8 % Normal 0-1 [facility] Comment on above: Performed By: #### L 100.0100, L500.2500 ####[facility] [address] [place], [address] Eosinophils/100 WBC (Bld) 2.6 % Normal 0-5 [facility] Comment on above: Performed By: #### L 100.0100, L500.2500 ####[facility] [address] [place], [address] Erythrocyte distribution width (RBC) [Ratio] 15.3 % High 11.6-14.6 [facility] Comment on above: Performed By: #### L 100.0100, L500.2500 ####[facility] [address] [place], [address] Hematocrit (Bld) [Volume fraction] 31.2 % Low 37-47 [facility] Comment on above: Performed By: #### L 100.0100, L500.2500 ####[facility] [address] [place], [address] Hemoglobin (Bld) [Mass/Vol] 10.0 g/dL Low 12.0-15.0 [facility] Comment on above: Performed By: #### L 100.0100, L500.2500 ####[facility] [address] [place], [address] IG% 2.000 High 0.0-0.9 [facility] Comment on above: Result Comment: IG% - Immature Granulocytes (promyelocytes, myelocytes andmetamyelocytes) > 1% indicates that a LEFT SHIFT is Present. Performed By: #### L 100.0100, L500.2500 ####[facility] [address] [place], [address] Lymphocytes/100 WBC (Bld) 15.9 % Low 19-41 [facility] Comment on above: Performed By: #### L 100.0100, L500.2500 ####[facility] [address] [place], [address] MCH (RBC) [Entitic mass] 28.3 pg Normal 27.0-32.0 [facility] Comment on above: Performed By: #### L 100.0100, L500.2500 ####[facility] [address] [place], [address] MCHC (RBC) [Mass/Vol] 32.1 g/dL Normal 32-36 [facility] Comment on above: Performed By: #### L 100.0100, L500.2500 ####[facility] [address] [place], [address] MCV (RBC) [Entitic vol] 88.4 fL Normal 81-99 [facility] Comment on above: Performed By: #### L 100.0100, L500.2500 ####[facility] [address] [place], [address] Monocytes/100 WBC (Bld) 9.5 % Normal 0-10 [facility] Comment on above: Performed By: #### L 100.0100, L500.2500 ####[facility] [address] [place], [address] Neutrophils/100 WBC (Bld) 69.2 % Normal 47-70 [facility] Comment on above: Performed By: #### L 100.0100, L500.2500 ####[facility] [address] [place], [address] Nucleated RBC (Bld) [#/Vol] 0 10*3/uL Normal 0-5 [facility] Comment on above: Performed By: #### L 100.0100, L500.2500 ####[facility] [address] [place], [address] Platelet mean volume (Bld) [Entitic vol] 9.4 fL Normal 6.2-12.0 [facility] Comment on above: Performed By: #### L 100.0100, L500.2500 ####[facility] [address] [place], [address] Platelets (Bld) [#/Vol] 469 10*3/uL High 150-450 [facility] Comment on above: Performed By: #### L 100.0100, L500.2500 ####[facility] [address] [place], [address] RBC (Bld) [#/Vol] 3.53 10*6/uL Low 4.2-5.4 [facility] Comment on above: Performed By: #### L 100.0100, L500.2500 ####[facility] [address] [place], [address] RDW SD 49.1 fl High 35.1-43.9 [facility] Comment on above: Performed By: #### L 100.0100, L500.2500 ####[facility] [address] [place], [address] WBC (Bld) [#/Vol] 10.1 10*3/uL Normal 4.4-11.0 [facility] Comment on above: Performed By: #### L 100.0100, L500.2500 ####[facility] [address] [place], [address] Basic metabolic 2000 panelon 06-27-2024 Anion gap [Moles/Vol] 13 mmol/L Normal 8-15 [facility] Comment on above: Order Comment: Speci men Type: BLOOD SPECIMENOrdering Facility: [facility] Address: [address] [place] [address] Performed By: #### 2 4321-2 ####[facility] LABCLIA [id number] [address] [address] [place] Calcium [Mass/Vol] 8.8 mg/dL Normal 8.5-10.2 [facility] Comment on above: Order Comment: Speci men Type: BLOOD SPECIMENOrdering Facility: [facility] Address: [address] [place] [address] Performed By: #### 2 4321-2 ####[facility] LABCLIA [id number] [address] [address] [place] Chloride [Moles/Vol] 104 mmol/L Normal 98-107 [facility] Comment on above: Order Comment: Speci men Type: BLOOD SPECIMENOrdering Facility: [facility] Address: [address] [place] [address] Performed By: #### 2 4321-2 ####[facility] LABCLIA [id number] [place] [address] [place] CO2 [Moles/Vol] 23 mmol/L Normal 22-30 [facility] Comment on above: Order Comment: Speci men Type: BLOOD SPECIMENOrdering Facility: [facility] Address: [address] [place] [address] Performed By: #### 2 4321-2 ####[facility] LABIA [id number] [address] [place] Creatinine [Mass/Vol] 0.67 mg/dL Normal 0.58-0.96 [facility] Comment on above: Order Comment: Speci men Type: BLOOD SPECIMENOrdering Facility: [facility] Address: [address] [place] [address] Performed By: #### 2 4321-2 ####[facility] LABIA [id number] [address] [place] Creatinine and Glomerular filtration rate.predicted panel (S/P/Bld) 91 mL/min/1.73m??? Normal >=60 [facility] Comment on above: Order Comment: Speci men Type: BLOOD SPECIMENOrdering Facility: [facility] Address: [address] [place] [address] Result Comment: Dara mated Glomerular Filtration Rate (eGFR) is calculated using the 2020 CKD-EPI creatinine equation. This equation utilizes serum creatinine, sex, and age as parameters. The creatinine assay has traceable calibration to isotope dilution-mass spectrometry. Refer to KDIGO guidelines for clinical interpretation. In patients with unstable renal function, e.g. those with acute kidney injury, the eGFR may not accurately reflect actual GFR. Performed By: #### 2 4321-2 ####[facility] LABCLIA [id number] [place] [address] [place] Glucose [Mass/Vol] 100 mg/dL High 74-99 [facility] Comment on above: Order Comment: Speci men Type: BLOOD SPECIMENOrdering Facility: [facility] Address: [address] [place] [address] Result Comment: The [place] Diabetes Association (ADA) provides guidance for cutoff values for fasting glucose and random glucose. The ADA defines fasting as no caloric intake for at least 8 hours. Fasting plasma glucose results between 100 to 125 mg/dL indicate increased risk for diabetes (prediabetes).Fasting plasma glucose results greater than or equal to 126 mg/dL meet the criteria for diagnosis of diabetes. In the absence of unequivocal hyperglycemia, results should be confirmed by repeat testing. In a patient with classic symptoms of hyperglycemia or hyperglycemic crisis, random plasma glucose results greater than or equal to 200 mg/dL meet the criteria for diagnosis of diabetes.Reference: Standards of Medical Care in Diabetes 2016, [place] [employer]. Diabetes Care. 2016.39(Suppl 1). Performed By: #### 2 4321-2 ####[facility] LABIA [id number] [place] [address] [place] Potassium [Moles/Vol] 3.4 mmol/L Low 3.7-5.1 [facility] Comment on above: Order Comment: Speci men Type: BLOOD SPECIMENOrdering Facility: [facility] Address: [address] [place] [address] Performed By: #### 2 4321-2 ####[facility] LABIA [id number] [place] [address] [place] Sodium [Moles/Vol] 140 mmol/L Normal 136-144 [facility] Comment on above: Order Comment: Speci men Type: BLOOD SPECIMENOrdering Facility: [facility] Address: [address] [place], [place] [address] Performed By: #### 2 4321-2 ####[facility] LABIA [id number] [place] [address] [place] Urea nitrogen [Mass/Vol] 14 mg/dL Normal 7-21 [facility] Comment on above: Order Comment: Speci men Type: BLOOD SPECIMENOrdering Facility: [facility] Address: [address] [place] [address] Performed By: #### 2 4321-2 ####[facility] LABCLIA [id number] [place] [address] [place] CASE MANAGEMon 06-27-2024 CASE MANAGEM Normal [facility] [facility]GEM Normal [facility] CBC panel Auto (Bld)on 06-27 Erythrocyte distribution width (RBC) [Ratio] 15.3 % High 11.5-15.0 [facility] Comment on above: Order Comment: Speci men Type: BLOOD SPECIMENOrdering Facility: [facility] Address: [address] [place] [address] Performed By: #### 5 8410-2 ####[facility] LABCLIA [id number] [place] [address] [place] Hematocrit (Bld) [Volume fraction] 33.0 % Low 36.0-46.0 [facility] Comment on above: Order Comment: Speci men Type: BLOOD SPECIMENOrdering Facility: [facility] Address: [address] [place] [address] Performed By: #### 5 8410-2 ####[facility] LABCLIA [id number] [place] [address] [place] Hemoglobin (Bld) [Mass/Vol] 10.5 g/dL Low 11.5-15.5 [facility] Comment on above: Order Comment: Speci men Type: BLOOD SPECIMENOrdering Facility: [facility] Address: [address] [place] [address] Performed By: #### 5 8410-2 ####[facility] LABCLIA [id number] [place] [address] [place] MCH (RBC) [Entitic mass] 28.5 pg Normal 26.0-34.0 [facility] Comment on above: Order Comment: Speci men Type: BLOOD SPECIMENOrdering Facility: [facility] Address: [address] [place] [address] Performed By: #### 5 8410-2 ####[facility] LABCLIA [id number] [place] [address] [place] MCHC (RBC) [Mass/Vol] 31.8 g/dL Normal 30.5-36.0 [facility] Comment on above: Order Comment: Speci men Type: BLOOD SPECIMENOrdering Facility: [facility] Address: [address] [place] [address] Performed By: #### 5 8410-2 ####[facility] LABIA [id number] [place] [address] [place] MCV (RBC) [Entitic vol] 89.7 fL Normal 80.0-100.0 [facility] Comment on above: Order Comment: Speci men Type: BLOOD SPECIMENOrdering Facility: [facility] Address: [address] [place] [address] Performed By: #### 5 8410-2 ####[facility] LABIA [id number] [place] [address] [place] Nucleated RBC (Bld) [#/Vol] 10*3/uL Normal <0.01 [facility] Comment on above: Order Comment: Speci men Type: BLOOD SPECIMENOrdering Facility: [facility] Address: [address] [place] [address] Performed By: #### 5 8410-2 ####[facility] LABIA [id number] [place] [address] [place] Platelet mean volume (Bld) [Entitic vol] 9.7 fL Normal 9.0-12.7 [facility] Comment on above: Order Comment: Speci men Type: BLOOD SPECIMENOrdering Facility: [facility] Address: [address] [place] [address] Performed By: #### 5 8410-2 ####[facility] LABCLIA [id number] [place] [address] [place] Platelets (Bld) [#/Vol] 414 10*3/uL High 150-400 [facility] Comment on above: Order Comment: Speci men Type: BLOOD SPECIMENOrdering Facility: [facility] Address: [address] [place] [address] Performed By: #### 5 8410-2 ####[facility] LABIA [id number] [place] [address] [place] RBC (Bld) [#/Vol] 3.68 10*6/uL Low 3.90-5.[address] [facility] Comment on above: Order Comment: Speci men Type: BLOOD SPECIMENOrdering Facility: [facility] Address: [address] [place] [address] Performed By: #### 5 8410-2 ####[facility] LABIA [id number] [place] [address] [place] WBC (Bld) [#/Vol] 7.94 10*3/uL Normal 3.70-11.[address] [facility] Comment on above: Order Comment: Speci men Type: BLOOD SPECIMENOrdering Facility: [facility] Address: [address] [place] [address] Performed By: #### 5 8410-2 ####[facility] LABIA [id number] [place] [address] [place] CNDSon 06-27-2024 CNDS Normal [facility] THERAPY NTon 06-27-2024 THERAPY NT Normal [facility] Basic metabolic 2000 panelon 06-26-2024 Anion gap [Moles/Vol] 10 mmol/L Normal 8-15 [facility] Comment on above: Order Comment: Speci men Type: BLOOD SPECIMENOrdering Facility: [facility] Address: [address] [place] [address] Performed By: #### 2 4321-2 ####[facility] LABCLIA [id number] [place] [address] [place] Calcium [Mass/Vol] 8.5 mg/dL Normal 8.5-10.2 [facility] Comment on above: Order Comment: Speci men Type: BLOOD SPECIMENOrdering Facility: [facility] Address: [address] [place] [address] Performed By: #### 2 4321-2 ####[facility] LABCLIA [id number] [place] [address] [place] Chloride [Moles/Vol] 105 mmol/L Normal 98-107 [facility] Comment on above: Order Comment: Speci men Type: BLOOD SPECIMENOrdering Facility: [facility] Address: [address] [place] [address] Performed By: #### 2 4321-2 ####[facility] LABCLIA [id number] [place] [address] [place] CO2 [Moles/Vol] 24 mmol/L Normal 22-30 [facility] Comment on above: Order Comment: Speci men Type: BLOOD SPECIMENOrdering Facility: [facility] Address: [address] [place] [address] Performed By: #### 2 4321-2 ####[facility] LABCLIA [id number] [place] [address] [place] Creatinine [Mass/Vol] 0.67 mg/dL Normal 0.58-0.96 [facility] Comment on above: Order Comment: Speci men Type: BLOOD SPECIMENOrdering Facility: [facility] Address: [address] [place], [place] [address] Performed By: #### 2 4321-2 ####[facility] LABCLIA [id number] [place] [address] [place] Creatinine and Glomerular filtration rate.predicted panel (S/P/Bld) 91 mL/min/1.73m??? Normal >=60 [facility] Comment on above: Order Comment: Pallavi vázquez Type: BLOOD SPECIMENOrdering Facility: [facility] Address: [address] [place] [address] Result Comment: Dara mated Glomerular Filtration Rate (eGFR) is calculated using the 2020 CKD-EPI creatinine equation. This equation utilizes serum creatinine, sex, and age as parameters. The creatinine assay has traceable calibration to isotope dilution-mass spectrometry. Refer to KDIGO guidelines for clinical interpretation. In patients with unstable renal function, e.g. those with acute kidney injury, the eGFR may not accurately reflect actual GFR. Performed By: #### 2 4321-2 ####[facility] LABCLIA [id number] [place] [address] [place] Glucose [Mass/Vol] 129 mg/dL High 74-99 [facility] Comment on above: Order Comment: Pallavi vázquez Type: BLOOD SPECIMENOrdering Facility: [facility] Address: [address] [place] [address] Result Comment: The [place] [employer] (ADA) provides guidance for cutoff values for fasting glucose and random glucose. The ADA defines fasting as no caloric intake for at least 8 hours. Fasting plasma glucose results between 100 to 125 mg/dL indicate increased risk for diabetes (prediabetes).Fasting plasma glucose results greater than or equal to 126 mg/dL meet the criteria for diagnosis of diabetes. In the absence of unequivocal hyperglycemia, results should be confirmed by repeat testing. In a patient with classic symptoms of hyperglycemia or hyperglycemic crisis, random plasma glucose results greater than or equal to 200 mg/dL meet the criteria for diagnosis of diabetes.Reference: Standards of Medical Care in Diabetes 2016, [place] [employer]. Diabetes Care. 2016.39(Suppl 1). Performed By: #### 2 4321-2 ####[facility] LABCLIA [id number] [place] [address] [place] Potassium [Moles/Vol] 4.1 mmol/L Normal 3.7-5.1 [facility] Comment on above: Order Comment: Speci men Type: BLOOD SPECIMENOrdering Facility: [facility] Address: [address] [place] [address] Performed By: #### 2 4321-2 ####[facility] LABCLIA [id number] [address] [address] [place] Sodium [Moles/Vol] 139 mmol/L Normal 136-144 [facility] Comment on above: Order Comment: Speci men Type: BLOOD SPECIMENOrdering Facility: [facility] Address: [address] [place] [address] Performed By: #### 2 4321-2 ####[facility] LABCLIA [id number] [place] [address] [place] Urea nitrogen [Mass/Vol] 15 mg/dL Normal 7-21 [facility] Comment on above: Order Comment: Speci men Type: BLOOD SPECIMENOrdering Facility: [facility] Address: [address] [place] [address] Performed By: #### 2 4321-2 ####[facility] LABCLIA [id number] [place] [id number] [place] CASE MANAGEMon 06-26-2024 CASE MANAGEM Normal [facility] CASE MANAGEM Normal [facility] CASE MANAGEM Normal [facility] CBC panel Auto (Bld)on 06-26 Erythrocyte distribution width (RBC) [Ratio] 15.2 % High 11.5-15.0 [facility] Comment on above: Order Comment: Speci men Type: BLOOD SPECIMENOrdering Facility: [facility] Address: [address] [place] [address] Performed By: #### 5 8410-2 ####[facility] LABCLIA [id number] [place] [id number] [place] Hematocrit (Bld) [Volume fraction] 30.0 % Low 36.0-46.0 [facility] Comment on above: Order Comment: Speci men Type: BLOOD SPECIMENOrdering Facility: [facility] Address: [address] [place] [address] Performed By: #### 5 8410-2 ####[facility] LABIA [id number] [place] [address] [place] Hemoglobin (Bld) [Mass/Vol] 9.8 g/dL Low 11.5-15.5 [facility] Comment on above: Order Comment: Speci men Type: BLOOD SPECIMENOrdering Facility: [facility] Address: [address] [place] [address] Performed By: #### 5 8410-2 ####[facility] LABIA [id number] [place] [address] [place] MCH (RBC) [Entitic mass] 28.6 pg Normal 26.0-34.0 [facility] Comment on above: Order Comment: Speci men Type: BLOOD SPECIMENOrdering Facility: [facility] Address: [address] [place] [address] Performed By: #### 5 8410-2 ####[facility] LABIA [id number] [place] [address] [place] MCHC (RBC) [Mass/Vol] 32.7 g/dL Normal 30.5-36.0 [facility] Comment on above: Order Comment: Speci men Type: BLOOD SPECIMENOrdering Facility: [facility] Address: [address] [place] [address] Performed By: #### 5 8410-2 ####[facility] LABIA [id number] [place] [address] [place] MCV (RBC) [Entitic vol] 87.5 fL Normal 80.0-100.0 [facility] Comment on above: Order Comment: Speci men Type: BLOOD SPECIMENOrdering Facility: [facility] Address: [address] [place] [address] Performed By: #### 5 8410-2 ####[facility] LABCLIA [id number] [place] [address] [place] Nucleated RBC (Bld) [#/Vol] 10*3/uL Normal <0.01 [facility] Comment on above: Order Comment: Speci men Type: BLOOD SPECIMENOrdering Facility: [facility] Address: [address] [place] [address] Performed By: #### 5 8410-2 ####[facility] LABIA [id number] [place] [address] [place] Platelet mean volume (Bld) [Entitic vol] 9.5 fL Normal 9.0-12.7 [facility] Comment on above: Order Comment: Speci men Type: BLOOD SPECIMENOrdering Facility: [facility] Address: [address] [place] [address] Performed By: #### 5 8410-2 ####[facility] LABIA [id number] [place] [address] [place] Platelets (Bld) [#/Vol] 368 10*3/uL Normal 150-400 [facility] Comment on above: Order Comment: Speci men Type: BLOOD SPECIMENOrdering Facility: [facility] Address: [address] [place] [address] Performed By: #### 5 8410-2 ####[facility] LABIA [id number] [place] [address] [place] RBC (Bld) [#/Vol] 3.43 10*6/uL Low 3.90-5.[address] [facility] Comment on above: Order Comment: Speci men Type: BLOOD SPECIMENOrdering Facility: [facility] Address: [address] [place] [address] Performed By: #### 5 8410-2 ####[facility] LABIA [id number] [id number] [address] [place] WBC (Bld) [#/Vol] 6.92 10*3/uL Normal 3.70-11.[address] [facility] Comment on above: Order Comment: Speci men Type: BLOOD SPECIMENOrdering Facility: [facility] Address: [address] [place] [address] Performed By: #### 5 8410-2 ####[facility] LABCLIA [id number] [place] [address] [place] NUTRITIONon 06-26-2024 NUTRITION Normal [facility] THERAPY NTon 06-26-2024 THERAPY NT Normal [facility] Basic metabolic 2000 panelon 06-25-2024 Anion gap [Moles/Vol] 11 mmol/L Normal 8-15 [facility] Comment on above: Order Comment: Speci men Type: BLOOD SPECIMENOrdering Facility: [facility] Address: [address] [place] [address] Performed By: #### 2 4321-2 ####[facility] LABCLIA [id number] [place] [address] [place] Calcium [Mass/Vol] 8.7 mg/dL Normal 8.5-10.2 [facility] Comment on above: Order Comment: Speci men Type: BLOOD SPECIMENOrdering Facility: [facility] Address: [address] [place] [address] Performed By: #### 2 4321-2 ####[facility] LABCLIA [id number] [place] [address] [place] Chloride [Moles/Vol] 104 mmol/L Normal 98-107 [facility] Comment on above: Order Comment: Speci men Type: BLOOD SPECIMENOrdering Facility: [facility] Address: [address] [place] [address] Performed By: #### 2 4321-2 ####[facility] LABCLIA [id number] [place] [address] [place] CO2 [Moles/Vol] 23 mmol/L Normal 22-30 [facility] Comment on above: Order Comment: Speci men Type: BLOOD SPECIMENOrdering Facility: [facility] Address: [address] [place] [address] Performed By: #### 2 4321-2 ####[facility] LABCLIA [id number] [place] [address] [place] Creatinine [Mass/Vol] 0.76 mg/dL Normal 0.58-0.96 [facility] Comment on above: Order Comment: Speci men Type: BLOOD SPECIMENOrdering Facility: [facility] Address: [address] [place] [address] Performed By: #### 2 4321-2 ####[facility] LABCLIA [id number] [place] [address] [place] Creatinine and Glomerular filtration rate.predicted panel (S/P/Bld) 82 mL/min/1.73m??? Normal >=60 [facility] Comment on above: Order Comment: Speci men Type: BLOOD SPECIMENOrdering Facility: [facility] Address: [address] [place] [address] Result Comment: Dara mated Glomerular Filtration Rate (eGFR) is calculated using the 2020 CKD-EPI creatinine equation. This equation utilizes serum creatinine, sex, and age as parameters. The creatinine assay has traceable calibration to isotope dilution-mass spectrometry. Refer to KDIGO guidelines for clinical interpretation. In patients with unstable renal function, e.g. those with acute kidney injury, the eGFR may not accurately reflect actual GFR. Performed By: #### 2 4321-2 ####[facility] LABCLIA [id number] [place] [address] [place] Glucose [Mass/Vol] 128 mg/dL High 74-99 [facility] Comment on above: Order Comment: Speci men Type: BLOOD SPECIMENOrdering Facility: [facility] Address: [address] [place] [address] Result Comment: The [place] [employer] (ADA) provides guidance for cutoff values for fasting glucose and random glucose. The ADA defines fasting as no caloric intake for at least 8 hours. Fasting plasma glucose results between 100 to 125 mg/dL indicate increased risk for diabetes (prediabetes).Fasting plasma glucose results greater than or equal to 126 mg/dL meet the criteria for diagnosis of diabetes. In the absence of unequivocal hyperglycemia, results should be confirmed by repeat testing. In a patient with classic symptoms of hyperglycemia or hyperglycemic crisis, random plasma glucose results greater than or equal to 200 mg/dL meet the criteria for diagnosis of diabetes.Reference: Standards of Medical Care in Diabetes 2016, [place] [employer]. Diabetes Care. 2016.39(Suppl 1). Performed By: #### 2 4321-2 ####[facility] LABCLIA [id number] [place] [address] [place] Potassium [Moles/Vol] 4.1 mmol/L Normal 3.7-5.1 [facility] Comment on above: Order Comment: Speci men Type: BLOOD SPECIMENOrdering Facility: [facility] Address: [address] [place] [address] Performed By: #### 2 4321-2 ####[facility] LABCLIA [id number] [place] [address] [place] Sodium [Moles/Vol] 138 mmol/L Normal 136-144 [facility] Comment on above: Order Comment: Speci men Type: BLOOD SPECIMENOrdering Facility: [facility] Address: [address] [place] [address] Performed By: #### 2 4321-2 ####[facility] LABCLIA [id number] [place] [address] [place] Urea nitrogen [Mass/Vol] 19 mg/dL Normal 7-21 [facility] Comment on above: Order Comment: Speci men Type: BLOOD SPECIMENOrdering Facility: [facility] Address: [address] [place] [address] Performed By: #### 2 4321-2 ####[facility] LABCLIA [id number] [place] [address] [place] CASE MANAGEMon 06-25-2024 CASE MANAGEM Normal [facility] CASE MANAGEM Normal [facility] CBC panel Auto (Bld)on 06-25 Erythrocyte distribution width (RBC) [Ratio] 15.2 % High 11.5-15.0 [facility] Comment on above: Order Comment: Speci men Type: BLOOD SPECIMENOrdering Facility: [facility] Address: [address] [place] [address] Performed By: #### 5 8410-2 ####[facility] LABIA [id number] [place] [address] [place] Hematocrit (Bld) [Volume fraction] 31.6 % Low 36.0-46.0 [facility] Comment on above: Order Comment: Speci men Type: BLOOD SPECIMENOrdering Facility: [facility] Address: [address] [place] [address] Performed By: #### 5 8410-2 ####[facility] LABIA [id number] [place] [address] [place] Hemoglobin (Bld) [Mass/Vol] 10.0 g/dL Low 11.5-15.5 [facility] Comment on above: Order Comment: Speci men Type: BLOOD SPECIMENOrdering Facility: [facility] Address: [address] [place] [address] Performed By: #### 5 8410-2 ####[facility] LABCLIA [id number] [place] [address] [place] MCH (RBC) [Entitic mass] 28.2 pg Normal 26.0-34.0 [facility] Comment on above: Order Comment: Speci men Type: BLOOD SPECIMENOrdering Facility: [facility] Address: [address] [place] [address] Performed By: #### 5 8410-2 ####[facility] LABCLIA [id number] [place] [address] [place] MCHC (RBC) [Mass/Vol] 31.6 g/dL Normal 30.5-36.0 [facility] Comment on above: Order Comment: Speci men Type: BLOOD SPECIMENOrdering Facility: [facility] Address: [address] [place] [address] Performed By: #### 5 8410-2 ####[facility] LABCLIA [id number] [place] [address] [place] MCV (RBC) [Entitic vol] 89.3 fL Normal 80.0-100.0 [facility] Comment on above: Order Comment: Speci men Type: BLOOD SPECIMENOrdering Facility: [facility] Address: [address] [place] [address] Performed By: #### 5 8410-2 ####[facility] LABCLIA [id number] [place] [address] [place] Nucleated RBC (Bld) [#/Vol] 10*3/uL Normal <0.01 [facility] Comment on above: Order Comment: Speci men Type: BLOOD SPECIMENOrdering Facility: [facility] Address: [address] [place] [address] Performed By: #### 5 8410-2 ####[facility] LABIA [id number] [place] [address] [place] Platelet mean volume (Bld) [Entitic vol] 10.0 fL Normal 9.0-12.7 [facility] Comment on above: Order Comment: Speci men Type: BLOOD SPECIMENOrdering Facility: [facility] Address: [address] [place] [address] Performed By: #### 5 8410-2 ####[facility] LABCLIA [id number] [place] [address] [place] Platelets (Bld) [#/Vol] 339 10*3/uL Normal 150-400 [facility] Comment on above: Order Comment: Speci men Type: BLOOD SPECIMENOrdering Facility: [facility] Address: [address] [place] [address] Performed By: #### 5 8410-2 ####[facility] LABCLIA [id number] [address] [address] [place] RBC (Bld) [#/Vol] 3.54 10*6/uL Low 3.90-5.[address] [facility] Comment on above: Order Comment: Speci men Type: BLOOD SPECIMENOrdering Facility: [facility] Address: [address] [place] [address] Performed By: #### 5 8410-2 ####[facility] LABCLIA [id number] [address] [address] [place] WBC (Bld) [#/Vol] 8.44 10*3/uL Normal 3.70-11.[address] [facility] Comment on above: Order Comment: Speci men Type: BLOOD SPECIMENOrdering Facility: [facility] Address: [address] [place] [address] Performed By: #### 5 8410-2 ####[facility] LABCLIA [id number] [place] [id number] [place] THERAPY NTon 06-25-2024 THERAPY NT Normal [facility] Basic metabolic 2000 panelon 06-24-2024 Anion gap [Moles/Vol] 12 mmol/L Normal 8-15 [facility] Comment on above: Order Comment: Speci men Type: BLOOD SPECIMENOrdering Facility: [facility] Address: [address] [place] [address] Performed By: #### 2 4321-2 ####[facility] LABCLIA [id number] [address] [address] [place] Calcium [Mass/Vol] 8.5 mg/dL Normal 8.5-10.2 [facility] Comment on above: Order Comment: Speci men Type: BLOOD SPECIMENOrdering Facility: [facility] Address: [address] [place] [address] Performed By: #### 2 4321-2 ####[facility] LABCLIA [id number] [place] [id number] [place] Chloride [Moles/Vol] 103 mmol/L Normal 98-107 [facility] Comment on above: Order Comment: Speci men Type: BLOOD SPECIMENOrdering Facility: [facility] Address: [address] [place] [address] Performed By: #### 2 4321-2 ####[facility] LABCLIA [id number] [place] [address] [place] CO2 [Moles/Vol] 24 mmol/L Normal 22-30 [facility] Comment on above: Order Comment: Speci men Type: BLOOD SPECIMENOrdering Facility: [facility] Address: [address] [place] [address] Performed By: #### 2 4321-2 ####[facility] LABCLIA [id number] [place] [address] [place] Creatinine [Mass/Vol] 0.71 mg/dL Normal 0.58-0.96 [facility] Comment on above: Order Comment: Speci men Type: BLOOD SPECIMENOrdering Facility: [facility] Address: [address] [place] [address] Performed By: #### 2 4321-2 ####[facility] LABCLIA [id number] [place] [address] [place] Creatinine and Glomerular filtration rate.predicted panel (S/P/Bld) 89 mL/min/1.73m??? Normal >=60 [facility] Comment on above: Order Comment: Speci men Type: BLOOD SPECIMENOrdering Facility: [facility] Address: [address] [place] [address] Result Comment: Dara mated Glomerular Filtration Rate (eGFR) is calculated using the 2021 CKD-EPI creatinine equation. This equation utilizes serum creatinine, sex, and age as parameters. The creatinine assay has traceable calibration to isotope dilution-mass spectrometry. Refer to KDIGO guidelines for clinical interpretation. In patients with unstable renal function, e.g. those with acute kidney injury, the eGFR may not accurately reflect actual GFR. Performed By: #### 2 4321-2 ####[facility] LABCLIA [id number] [place] [address] [place] Glucose [Mass/Vol] 157 mg/dL High 74-99 [facility] Comment on above: Order Comment: Pallavi vázquez Type: BLOOD SPECIMENOrdering Facility: [facility] Address: [address] [place] [address] Result Comment: The [place] [employer] (ADA) provides guidance for cutoff values for fasting glucose and random glucose. The ADA defines fasting as no caloric intake for at least 8 hours. Fasting plasma glucose results between 100 to 125 mg/dL indicate increased risk for diabetes (prediabetes).Fasting plasma glucose results greater than or equal to 126 mg/dL meet the criteria for diagnosis of diabetes. In the absence of unequivocal hyperglycemia, results should be confirmed by repeat testing. In a patient with classic symptoms of hyperglycemia or hyperglycemic crisis, random plasma glucose results greater than or equal to 200 mg/dL meet the criteria for diagnosis of diabetes.Reference: Standards of Medical Care in Diabetes 2016, [place] [employer]. Diabetes Care. 2016.39(Suppl 1). Performed By: #### 2 4321-2 ####[facility] LABIA [id number] [place] [id number] [place] Potassium [Moles/Vol] 3.5 mmol/L Low 3.7-5.1 [facility] Comment on above: Order Comment: Pallavi vázquez Type: BLOOD SPECIMENOrdering Facility: [facility] Address: [address] [place] [address] Performed By: #### 2 4321-2 ####[facility] LABCLIA [id number] [address] [address] [place] Sodium [Moles/Vol] 139 mmol/L Normal 136-144 [facility] Comment on above: Order Comment: Speci men Type: BLOOD SPECIMENOrdering Facility: [facility] Address: [address] [place] [address] Performed By: #### 2 4321-2 ####[facility] LABCLIA [id number] [place] [address] [place] Urea nitrogen [Mass/Vol] 14 mg/dL Normal 7-21 [facility] Comment on above: Order Comment: Speci men Type: BLOOD SPECIMENOrdering Facility: [facility] Address: [address] [place] [address] Performed By: #### 2 4321-2 ####[facility] LABCLIA [id number] [place] [address] [place] CASE MANAGEMon 06-24-2024 CASE MANAGEM Normal [facility] CBC panel Auto (Bld)on 06-24 Erythrocyte distribution width (RBC) [Ratio] 15.2 % High 11.5-15.0 [facility] Comment on above: Order Comment: Speci men Type: BLOOD SPECIMENOrdering Facility: [facility] Address: [address] [place] [address] Performed By: #### 5 8410-2 ####[facility] LABCLIA [id number] [place] [address] [place] Hematocrit (Bld) [Volume fraction] 31.8 % Low 36.0-46.0 [facility] Comment on above: Order Comment: Speci men Type: BLOOD SPECIMENOrdering Facility: [facility] Address: [address] [place] [address] Performed By: #### 5 8410-2 ####[facility] LABCLIA [id number] [place] [address] [place] Hemoglobin (Bld) [Mass/Vol] 10.3 g/dL Low 11.5-15.5 [facility] Comment on above: Order Comment: Speci men Type: BLOOD SPECIMENOrdering Facility: [facility] Address: [address] [place] [address] Performed By: #### 5 8410-2 ####[facility] LABIA [id number] [place] [address] [place] MCH (RBC) [Entitic mass] 28.9 pg Normal 26.0-34.0 [facility] Comment on above: Order Comment: Speci men Type: BLOOD SPECIMENOrdering Facility: [facility] Address: [address] [place] [address] Performed By: #### 5 8410-2 ####[facility] LABIA [id number] [place] [address] [place] MCHC (RBC) [Mass/Vol] 32.4 g/dL Normal 30.5-36.0 [facility] Comment on above: Order Comment: Speci men Type: BLOOD SPECIMENOrdering Facility: [facility] Address: [address] [place] [address] Performed By: #### 5 8410-2 ####[facility] LABIA [id number] [place] [address] [place] MCV (RBC) [Entitic vol] 89.3 fL Normal 80.0-100.0 [facility] Comment on above: Order Comment: Speci men Type: BLOOD SPECIMENOrdering Facility: [facility] Address: [address] [place] [address] Performed By: #### 5 8410-2 ####[facility] LABIA [id number] [place] [address] [place] Nucleated RBC (Bld) [#/Vol] 10*3/uL Normal <0.01 [facility] Comment on above: Order Comment: Speci men Type: BLOOD SPECIMENOrdering Facility: [facility] Address: [address] [place] [address] Performed By: #### 5 8410-2 ####[facility] LABCLIA [id number] [place] [address] [place] Platelet mean volume (Bld) [Entitic vol] 9.9 fL Normal 9.0-12.7 [facility] Comment on above: Order Comment: Speci men Type: BLOOD SPECIMENOrdering Facility: [facility] Address: [address] [place] [address] Performed By: #### 5 8410-2 ####[facility] LABCLIA [id number] [place] [address] [place] Platelets (Bld) [#/Vol] 273 10*3/uL Normal 150-400 [facility] Comment on above: Order Comment: Speci men Type: BLOOD SPECIMENOrdering Facility: [facility] Address: [address] [place] [address] Performed By: #### 5 8410-2 ####[facility] LABIA [id number] [place] [address] [place] RBC (Bld) [#/Vol] 3.56 10*6/uL Low 3.90-5.[address] [facility] Comment on above: Order Comment: Speci men Type: BLOOD SPECIMENOrdering Facility: [facility] Address: [address] [place] [address] Performed By: #### 5 8410-2 ####[facility] LABIA [id number] [place] [address] [place] WBC (Bld) [#/Vol] 8.82 10*3/uL Normal 3.70-11.[address] [facility] Comment on above: Order Comment: Speci men Type: BLOOD SPECIMENOrdering Facility: [facility] Address: [address] [place] [address] Performed By: #### 5 8410-2 ####[facility] LABIA [id number] [place] [address] [place] THERAPY NTon 06-24-2024 THERAPY NT Normal [facility] Basic metabolic 2000 panelon 06-23-2024 Anion gap [Moles/Vol] 14 mmol/L Normal 8-15 [facility] Comment on above: Order Comment: Speci men Type: BLOOD SPECIMENOrdering Facility: [facility] Address: [address] [place] [address] Performed By: #### 2 4321-2 ####[facility] LABCLIA [id number] [place] [address] [place] Calcium [Mass/Vol] 8.5 mg/dL Normal 8.5-10.2 [facility] Comment on above: Order Comment: Speci men Type: BLOOD SPECIMENOrdering Facility: [facility] Address: [address] [place] [address] Performed By: #### 2 4321-2 ####[facility] LABCLIA [id number] [place] [address] [place] Chloride [Moles/Vol] 104 mmol/L Normal 98-107 [facility] Comment on above: Order Comment: Speci men Type: BLOOD SPECIMENOrdering Facility: [facility] Address: [address] [place] [address] Performed By: #### 2 4321-2 ####[facility] LABCLIA [id number] [place] [address] [place] CO2 [Moles/Vol] 20 mmol/L Low 22-30 [facility] Comment on above: Order Comment: Speci men Type: BLOOD SPECIMENOrdering Facility: [facility] Address: [address] [place], [place] [address] Performed By: #### 2 4321-2 ####[facility] LABCLIA [id number] [place] [id number] [place] Creatinine [Mass/Vol] 0.62 mg/dL Normal 0.58-0.96 [facility] Comment on above: Order Comment: Speci men Type: BLOOD SPECIMENOrdering Facility: [facility] Address: [address] [place] [address] Performed By: #### 2 4321-2 ####[facility] LABIA [id number] [place] [address] [place] Creatinine and Glomerular filtration rate.predicted panel (S/P/Bld) 93 mL/min/1.73m??? Normal >=60 [facility] Comment on above: Order Comment: Pallavi vázquez Type: BLOOD SPECIMENOrdering Facility: [facility] Address: [address] [place] [address] Result Comment: Dara mated Glomerular Filtration Rate (eGFR) is calculated using the 2020 CKD-EPI creatinine equation. This equation utilizes serum creatinine, sex, and age as parameters. The creatinine assay has traceable calibration to isotope dilution-mass spectrometry. Refer to KDIGO guidelines for clinical interpretation. In patients with unstable renal function, e.g. those with acute kidney injury, the eGFR may not accurately reflect actual GFR. Performed By: #### 2 4321-2 ####[facility] LABIA [id number] [place] [address] [place] Glucose [Mass/Vol] 142 mg/dL High 74-99 [facility] Comment on above: Order Comment: Pallavi kathie Type: BLOOD SPECIMENOrdering Facility: [facility] Address: [address] [place] [address] Result Comment: The [place] [employer] (ADA) provides guidance for cutoff values for fasting glucose and random glucose. The ADA defines fasting as no caloric intake for at least 8 hours. Fasting plasma glucose results between 100 to 125 mg/dL indicate increased risk for diabetes (prediabetes).Fasting plasma glucose results greater than or equal to 126 mg/dL meet the criteria for diagnosis of diabetes. In the absence of unequivocal hyperglycemia, results should be confirmed by repeat testing. In a patient with classic symptoms of hyperglycemia or hyperglycemic crisis, random plasma glucose results greater than or equal to 200 mg/dL meet the criteria for diagnosis of diabetes.Reference: Standards of Medical Care in Diabetes 2016, [place] [employer]. Diabetes Care. 2016.39(Suppl 1). Performed By: #### 2 4321-2 ####[facility] LABCLIA [id number] [place] [address] [place] Potassium [Moles/Vol] 3.3 mmol/L Low 3.7-5.1 [facility] Comment on above: Order Comment: Speci men Type: BLOOD SPECIMENOrdering Facility: [facility] Address: [address] [place] [address] Performed By: #### 2 4321-2 ####[facility] LABCLIA [id number] [place] [address] [place] Sodium [Moles/Vol] 138 mmol/L Normal 136-144 [facility] Comment on above: Order Comment: Speci men Type: BLOOD SPECIMENOrdering Facility: [facility] Address: [address] [place] [address] Performed By: #### 2 4321-2 ####[facility] LABIA [id number] [place] [address] [place] Urea nitrogen [Mass/Vol] 13 mg/dL Normal 7-21 [facility] Comment on above: Order Comment: Speci men Type: BLOOD SPECIMENOrdering Facility: [facility] Address: [address] [place] [address] Performed By: #### 2 4321-2 ####[facility] LABIA [id number] [place] [id number] [place] CASE MANAGEMon 06-23-2024 CASE MANAGEM Normal [facility] CBC panel Auto (Bld)on 06-23 Erythrocyte distribution width (RBC) [Ratio] 14.9 % Normal 11.5-15.0 [facility] Comment on above: Order Comment: Speci men Type: BLOOD SPECIMENOrdering Facility: [facility] Address: [address] [place] [address] Performed By: #### 5 8410-2 ####[facility] LABCLIA [id number] [place] [address] [place] Hematocrit (Bld) [Volume fraction] 33.4 % Low 36.0-46.0 [facility] Comment on above: Order Comment: Speci men Type: BLOOD SPECIMENOrdering Facility: [facility] Address: [address] [place] [address] Performed By: #### 5 8410-2 ####[facility] LABIA [id number] [place] [address] [place] Hemoglobin (Bld) [Mass/Vol] 11.0 g/dL Low 11.5-15.5 [facility] Comment on above: Order Comment: Speci men Type: BLOOD SPECIMENOrdering Facility: [facility] Address: [address] [place] [address] Performed By: #### 5 8410-2 ####[facility] LABIA [id number] [place] [address] [place] MCH (RBC) [Entitic mass] 29.0 pg Normal 26.0-34.0 [facility] Comment on above: Order Comment: Speci men Type: BLOOD SPECIMENOrdering Facility: [facility] Address: [address] [place] [address] Performed By: #### 5 8410-2 ####[facility] LABIA [id number] [place] [address] [place] MCHC (RBC) [Mass/Vol] 32.9 g/dL Normal 30.5-36.0 [facility] Comment on above: Order Comment: Speci men Type: BLOOD SPECIMENOrdering Facility: [facility] Address: [address] [place] [address] Performed By: #### 5 8410-2 ####[facility] LABIA [id number] [place] [address] [place] MCV (RBC) [Entitic vol] 88.1 fL Normal 80.0-100.0 [facility] Comment on above: Order Comment: Speci men Type: BLOOD SPECIMENOrdering Facility: [facility] Address: [address] [place] [address] Performed By: #### 5 8410-2 ####[facility] LABIA [id number] [place] [address] [place] Nucleated RBC (Bld) [#/Vol] 10*3/uL Normal <0.01 [facility] Comment on above: Order Comment: Speci men Type: BLOOD SPECIMENOrdering Facility: [facility] Address: [address] [place] [address] Performed By: #### 5 8410-2 ####[facility] LABIA [id number] [place] [address] [place] Platelet mean volume (Bld) [Entitic vol] 10.6 fL Normal 9.0-12.7 [facility] Comment on above: Order Comment: Speci men Type: BLOOD SPECIMENOrdering Facility: [facility] Address: [address] [place] [address] Performed By: #### 5 8410-2 ####[facility] LABIA [id number] [place] [address] [place] Platelets (Bld) [#/Vol] 255 10*3/uL Normal 150-400 [facility] Comment on above: Order Comment: Speci men Type: BLOOD SPECIMENOrdering Facility: [facility] Address: [address] [place] [address] Performed By: #### 5 8410-2 ####[facility] LABIA [id number] [place] [address] [place] RBC (Bld) [#/Vol] 3.79 10*6/uL Low 3.90-5.[address] [facility] Comment on above: Order Comment: Speci men Type: BLOOD SPECIMENOrdering Facility: [facility] Address: [address] [place], [place] [address] Performed By: #### 5 8410-2 ####[facility] LABCLIA [id number] [address] [address] [place] WBC (Bld) [#/Vol] 12.19 10*3/uL High 3.70-11.00 [facility] Comment on above: Order Comment: Speci men Type: BLOOD SPECIMENOrdering Facility: [facility] Address: [address] [place] [address] Performed By: #### 5 8410-2 ####[facility] LABIA [id number] [place] [address] [place] THERAPY NTon 06-23-2024 THERAPY NT Normal [facility] THERAPY NT Normal [facility] Basic metabolic 2000 panelon 06-22-2024 Anion gap [Moles/Vol] 10 mmol/L Normal 8-15 [facility] Comment on above: Order Comment: Speci men Type: BLOOD SPECIMENOrdering Facility: [facility] Address: [address] [place] [address] Performed By: #### 2 4321-2 ####[facility] LABIA [id number] [place] [id number] [place] Calcium [Mass/Vol] 8.3 mg/dL Low 8.5-10.2 [facility] Comment on above: Order Comment: Speci men Type: BLOOD SPECIMENOrdering Facility: [facility] Address: [address] [place] [id number] Performed By: #### 2 4321-2 ####[facility] LABIA [id number] [place] [id number] [place] Chloride [Moles/Vol] 106 mmol/L Normal 98-107 [facility] Comment on above: Order Comment: Speci men Type: BLOOD SPECIMENOrdering Facility: [facility] Address: [address] [place] [address] Performed By: #### 2 4321-2 ####[facility] LABCLIA [id number] [place] [address] [place] CO2 [Moles/Vol] 22 mmol/L Normal 22-30 [facility] Comment on above: Order Comment: Speci men Type: BLOOD SPECIMENOrdering Facility: [facility] Address: [address] [place] [address] Performed By: #### 2 4321-2 ####[facility] LABIA [id number] [place] [address] [place] Creatinine [Mass/Vol] 0.75 mg/dL Normal 0.58-0.96 [facility] Comment on above: Order Comment: Speci men Type: BLOOD SPECIMENOrdering Facility: [facility] Address: [address] [place] [address] Performed By: #### 2 4321-2 ####[facility] LABIA [id number] [place] [address] [place] Creatinine and Glomerular filtration rate.predicted panel (S/P/Bld) 83 mL/min/1.73m??? Normal >=60 [facility] Comment on above: Order Comment: Speci men Type: BLOOD SPECIMENOrdering Facility: [facility] Address: [address] [place] [address] Result Comment: Dara mated Glomerular Filtration Rate (eGFR) is calculated using the 2020 CKD-EPI creatinine equation. This equation utilizes serum creatinine, sex, and age as parameters. The creatinine assay has traceable calibration to isotope dilution-mass spectrometry. Refer to KDIGO guidelines for clinical interpretation. In patients with unstable renal function, e.g. those with acute kidney injury, the eGFR may not accurately reflect actual GFR. Performed By: #### 2 4321-2 ####[facility] LABCLIA [id number] [place] [id number] [place] Glucose [Mass/Vol] 113 mg/dL High 74-99 [facility] Comment on above: Order Comment: Speci men Type: BLOOD SPECIMENOrdering Facility: [facility] Address: [address] [place] [phone] Result Comment: The [place] [employer] (ADA) provides guidance for cutoff values for fasting glucose and random glucose. The ADA defines fasting as no caloric intake for at least 8 hours. Fasting plasma glucose results between 100 to 125 mg/dL indicate increased risk for diabetes (prediabetes).Fasting plasma glucose results greater than or equal to 126 mg/dL meet the criteria for diagnosis of diabetes. In the absence of unequivocal hyperglycemia, results should be confirmed by repeat testing. In a patient with classic symptoms of hyperglycemia or hyperglycemic crisis, random plasma glucose results greater than or equal to 200 mg/dL meet the criteria for diagnosis of diabetes.Reference: Standards of Medical Care in Diabetes 2016, [place] [employer]. Diabetes Care. 2016.39(Suppl 1). Performed By: #### 2 4321-2 ####[facility] LABCLIA [id number] [place] [address] [place] Potassium [Moles/Vol] 3.3 mmol/L Low 3.7-5.1 [facility] Comment on above: Order Comment: Speci men Type: BLOOD SPECIMENOrdering Facility: [facility] Address: [address] [place], [place] [address] Performed By: #### 2 4321-2 ####[facility] LABCLIA [id number] [place] [address] [place] Sodium [Moles/Vol] 138 mmol/L Normal 136-144 [facility] Comment on above: Order Comment: Speci men Type: BLOOD SPECIMENOrdering Facility: [facility] Address: [address] [place], [place] [address] Performed By: #### 2 4321-2 ####[facility] LABCLIA [id number] [place] [address] [place] Urea nitrogen [Mass/Vol] 12 mg/dL Normal 7-21 [facility] Comment on above: Order Comment: Speci men Type: BLOOD SPECIMENOrdering Facility: [facility] Address: [address] [place] [address] Performed By: #### 2 4321-2 ####[facility] LABCLIA [id number] [place] [address] [place] CBC panel Auto (Bld)on 06-22 Erythrocyte distribution width (RBC) [Ratio] 15.1 % High 11.5-15.0 [facility] Comment on above: Order Comment: Speci men Type: BLOOD SPECIMENOrdering Facility: [facility] Address: [address] [place] [address] Performed By: #### 5 8410-2 ####[facility] LABCLIA [id number] [place] [address] [place] Hematocrit (Bld) [Volume fraction] 32.2 % Low 36.0-46.0 [facility] Comment on above: Order Comment: Speci men Type: BLOOD SPECIMENOrdering Facility: [facility] Address: [address] [place] [address] Performed By: #### 5 8410-2 ####[facility] LABCLIA [id number] [place] [address] [place] Hemoglobin (Bld) [Mass/Vol] 10.6 g/dL Low 11.5-15.5 [facility] Comment on above: Order Comment: Speci men Type: BLOOD SPECIMENOrdering Facility: [facility] Address: [address] [place] [address] Performed By: #### 5 8410-2 ####[facility] LABCLIA [id number] [place] [place] [id number] [place] MCH (RBC) [Entitic mass] 29.3 pg Normal 26.0-34.0 [facility] Comment on above: Order Comment: Speci men Type: BLOOD SPECIMENOrdering Facility: [facility] Address: [address] [place] [address] Performed By: #### 5 8410-2 ####[facility] LABCLIA [id number] [place] [address] [place] MCHC (RBC) [Mass/Vol] 32.9 g/dL Normal 30.5-36.0 [facility] Comment on above: Order Comment: Speci men Type: BLOOD SPECIMENOrdering Facility: [facility] Address: [address] [place] [address] Performed By: #### 5 8410-2 ####[facility] LABIA [id number] [place] [address] [place] MCV (RBC) [Entitic vol] 89.0 fL Normal 80.0-100.0 [facility] Comment on above: Order Comment: Speci men Type: BLOOD SPECIMENOrdering Facility: [facility] Address: [address] [place] [address] Performed By: #### 5 8410-2 ####[facility] LABIA [id number] [place] [address] [place] Nucleated RBC (Bld) [#/Vol] 10*3/uL Normal <0.01 [facility] Comment on above: Order Comment: Speci men Type: BLOOD SPECIMENOrdering Facility: [facility] Address: [address] [place] [address] Performed By: #### 5 8410-2 ####[facility] LABIA [id number] [place] [address] [place] Platelet mean volume (Bld) [Entitic vol] 10.8 fL Normal 9.0-12.7 [facility] Comment on above: Order Comment: Speci men Type: BLOOD SPECIMENOrdering Facility: [facility] Address: [address] [place] [address] Performed By: #### 5 8410-2 ####[facility] LABIA [id number] [place] [address] [place] Platelets (Bld) [#/Vol] 208 10*3/uL Normal 150-400 [facility] Comment on above: Order Comment: Speci men Type: BLOOD SPECIMENOrdering Facility: [facility] Address: [address] [place] [address] Performed By: #### 5 8410-2 ####[facility] LABCLIA [id number] [address] [address] [place] RBC (Bld) [#/Vol] 3.62 10*6/uL Low 3.90-5.[address] [facility] Comment on above: Order Comment: Speci men Type: BLOOD SPECIMENOrdering Facility: [facility] Address: [address] [place] [address] Performed By: #### 5 8410-2 ####[facility] LABCLIA [id number] [place] [address] [place] WBC (Bld) [#/Vol] 11.80 10*3/uL High 3.70-11.00 [facility] Comment on above: Order Comment: Speci men Type: BLOOD SPECIMENOrdering Facility: [facility] Address: [address] [place] [address] Performed By: #### 5 8410-2 ####[facility] LABCLIA [id number] [place] [address] [place] CONSULT PROGon 06-22-2024 CONSULT PROG Normal [facility] THERAPY NTon 06-22-2024 THERAPY NT Normal [facility] THERAPY NT Normal [facility] Basic metabolic 2000 panelon 06-21-2024 Anion gap [Moles/Vol] 13 mmol/L Normal 8-15 [facility] Comment on above: Order Comment: Speci men Type: BLOOD SPECIMENOrdering Facility: [facility] Address: [address] [place] [address] Performed By: #### 2 4321-2 ####[facility] LABCLIA [id number] [place] [address] [place] Calcium [Mass/Vol] 8.3 mg/dL Low 8.5-10.2 [facility] Comment on above: Order Comment: Speci men Type: BLOOD SPECIMENOrdering Facility: [facility] Address: [address] [place] [address] Performed By: #### 2 4321-2 ####[facility] LABCLIA [id number] [place] [address] [place] Chloride [Moles/Vol] 108 mmol/L High 98-107 [facility] Comment on above: Order Comment: Speci men Type: BLOOD SPECIMENOrdering Facility: [facility] Address: [address] [place] [address] Performed By: #### 2 4321-2 ####[facility] LABCLIA [id number] [place] [address] [place] CO2 [Moles/Vol] 19 mmol/L Low 22-30 [facility] Comment on above: Order Comment: Speci men Type: BLOOD SPECIMENOrdering Facility: [facility] Address: [address] [place] [address] Performed By: #### 2 4321-2 ####[facility] LABCLIA [id number] [place] [address] [place] Creatinine [Mass/Vol] 0.60 mg/dL Normal 0.58-0.96 [facility] Comment on above: Order Comment: Speci men Type: BLOOD SPECIMENOrdering Facility: [facility] Address: [address] [place] [address] Performed By: #### 2 4321-2 ####[facility] LABCLIA [id number] [place] [address] [place] Creatinine and Glomerular filtration rate.predicted panel (S/P/Bld) 94 mL/min/1.73m??? Normal >=60 [facility] Comment on above: Order Comment: Speci men Type: BLOOD SPECIMENOrdering Facility: [facility] Address: [address] [place] [address] Result Comment: Dara mated Glomerular Filtration Rate (eGFR) is calculated using the 2020 CKD-EPI creatinine equation. This equation utilizes serum creatinine, sex, and age as parameters. The creatinine assay has traceable calibration to isotope dilution-mass spectrometry. Refer to KDIGO guidelines for clinical interpretation. In patients with unstable renal function, e.g. those with acute kidney injury, the eGFR may not accurately reflect actual GFR. Performed By: #### 2 4321-2 ####[facility] LABCLIA [id number] [place] [address] [place] Glucose [Mass/Vol] 124 mg/dL High 74-99 [facility] Comment on above: Order Comment: Speci men Type: BLOOD SPECIMENOrdering Facility: [facility] Address: [address] [place] [address] Result Comment: The [place] [employer] (ADA) provides guidance for cutoff values for fasting glucose and random glucose. The ADA defines fasting as no caloric intake for at least 8 hours. Fasting plasma glucose results between 100 to 125 mg/dL indicate increased risk for diabetes (prediabetes).Fasting plasma glucose results greater than or equal to 126 mg/dL meet the criteria for diagnosis of diabetes. In the absence of unequivocal hyperglycemia, results should be confirmed by repeat testing. In a patient with classic symptoms of hyperglycemia or hyperglycemic crisis, random plasma glucose results greater than or equal to 200 mg/dL meet the criteria for diagnosis of diabetes.Reference: Standards of Medical Care in Diabetes 2016, [place] [employer]. Diabetes Care. 2016.39(Suppl 1). Performed By: #### 2 4321-2 ####[facility] LABCLIA [id number] [place] [id number] [place] Potassium [Moles/Vol] 3.9 mmol/L Normal 3.7-5.1 [facility] Comment on above: Order Comment: Speci men Type: BLOOD SPECIMENOrdering Facility: [facility] Address: [address] [place] [address] Performed By: #### 2 4321-2 ####[facility] LABCLIA [id number] [place] [address] [place] Sodium [Moles/Vol] 140 mmol/L Normal 136-144 [facility] Comment on above: Order Comment: Speci men Type: BLOOD SPECIMENOrdering Facility: [facility] Address: [address] [place] [address] Performed By: #### 2 4321-2 ####[facility] LABCLIA [id number] [place] [address] [place] Urea nitrogen [Mass/Vol] 6 mg/dL Low 7-21 [facility] Comment on above: Order Comment: Speci men Type: BLOOD SPECIMENOrdering Facility: [facility] Address: [address] [place] [address] Performed By: #### 2 4321-2 ####[facility] LABCLIA [id number] [place] [address] [place] CBC panel Auto (Bld)on 06-21 Erythrocyte distribution width (RBC) [Ratio] 15.1 % High 11.5-15.0 [facility] Comment on above: Order Comment: Speci men Type: BLOOD SPECIMENOrdering Facility: [facility] Address: [address] [place] [address] Performed By: #### 5 8410-2 ####[facility] LABCLIA [id number] [place] [address] [place] Hematocrit (Bld) [Volume fraction] 33.7 % Low 36.0-46.0 [facility] Comment on above: Order Comment: Speci men Type: BLOOD SPECIMENOrdering Facility: [facility] Address: [address] [place] [address] Performed By: #### 5 8410-2 ####[facility] LABCLIA [id number] [place] [address] [place] Hemoglobin (Bld) [Mass/Vol] 11.0 g/dL Low 11.5-15.5 [facility] Comment on above: Order Comment: Speci men Type: BLOOD SPECIMENOrdering Facility: [facility] Address: [address] [place] [address] Performed By: #### 5 8410-2 ####[facility] LABIA [id number] [place] [address] [place] MCH (RBC) [Entitic mass] 28.9 pg Normal 26.0-34.0 [facility] Comment on above: Order Comment: Speci men Type: BLOOD SPECIMENOrdering Facility: [facility] Address: [address] [place] [address] Performed By: #### 5 8410-2 ####[facility] LABIA [id number] [place] [address] [place] MCHC (RBC) [Mass/Vol] 32.6 g/dL Normal 30.5-36.0 [facility] Comment on above: Order Comment: Speci men Type: BLOOD SPECIMENOrdering Facility: [facility] Address: [address] [place] [address] Performed By: #### 5 8410-2 ####[facility] LABIA [id number] [place] [address] [place] MCV (RBC) [Entitic vol] 88.5 fL Normal 80.0-100.0 [facility] Comment on above: Order Comment: Speci men Type: BLOOD SPECIMENOrdering Facility: [facility] Address: [address] [place] [address] Performed By: #### 5 8410-2 ####[facility] LABIA [id number] [place] [address] [place] Nucleated RBC (Bld) [#/Vol] 10*3/uL Normal <0.01 [facility] Comment on above: Order Comment: Speci men Type: BLOOD SPECIMENOrdering Facility: [facility] Address: [address] [place] [address] Performed By: #### 5 8410-2 ####[facility] LABCLIA [id number] [place] [address] [place] Platelet mean volume (Bld) [Entitic vol] 10.6 fL Normal 9.0-12.7 [facility] Comment on above: Order Comment: Speci men Type: BLOOD SPECIMENOrdering Facility: [facility] Address: [address] [place] [address] Performed By: #### 5 8410-2 ####[facility] LABCLIA [id number] [place] [address] [place] Platelets (Bld) [#/Vol] 199 10*3/uL Normal 150-400 [facility] Comment on above: Order Comment: Speci men Type: BLOOD SPECIMENOrdering Facility: [facility] Address: [address] [place] [address] Performed By: #### 5 8410-2 ####[facility] LABCLIA [id number] [place] [address] [place] RBC (Bld) [#/Vol] 3.81 10*6/uL Low 3.90-5.[address] [facility] Comment on above: Order Comment: Speci men Type: BLOOD SPECIMENOrdering Facility: [facility] Address: [address] [place] [address] Performed By: #### 5 8410-2 ####[facility] LABCLIA [id number] [place] [id number] [place] WBC (Bld) [#/Vol] 12.19 10*3/uL High 3.70-11.00 [facility] Comment on above: Order Comment: Speci men Type: BLOOD SPECIMENOrdering Facility: [facility] Address: [address] [place] [address] Performed By: #### 5 8410-2 ####[facility] LABCLIA [id number] [place] [address] [place] CONSULT PROGon 06-21-2024 CONSULT PROG Normal [facility] THERAPY NTon 06-21-2024 THERAPY NT Normal [facility] THERAPY NT Normal [facility] Basic metabolic 2000 panelon 06-20-2024 Anion gap [Moles/Vol] 13 mmol/L Normal 8-15 [facility] Comment on above: Order Comment: Speci men Type: BLOOD SPECIMENOrdering Facility: [facility] Address: [address] [place], [place] [address] Performed By: #### 2 4321-2 ####[facility] LABCLIA [id number] [place] [address] [place] Calcium [Mass/Vol] 7.7 mg/dL Low 8.5-10.2 [facility] Comment on above: Order Comment: Speci men Type: BLOOD SPECIMENOrdering Facility: [facility] Address: [address] [place] [address] Performed By: #### 2 4321-2 ####[facility] LABCLIA [id number] [place] [address] [place] Chloride [Moles/Vol] 105 mmol/L Normal 98-107 [facility] Comment on above: Order Comment: Speci men Type: BLOOD SPECIMENOrdering Facility: [facility] Address: [address] [place], [place] [address] Performed By: #### 2 4321-2 ####[facility] LABCLIA [id number] [address] [address] [place] CO2 [Moles/Vol] 22 mmol/L Normal 22-30 [facility] Comment on above: Order Comment: Speci men Type: BLOOD SPECIMENOrdering Facility: [facility] Address: [address] [place], [place] [address] Performed By: #### 2 4321-2 ####[facility] LABCLIA [id number] [place] [address] [place] Creatinine [Mass/Vol] 0.65 mg/dL Normal 0.58-0.96 [facility] Comment on above: Order Comment: Pallavi vázquez Type: BLOOD SPECIMENOrdering Facility: [facility] Address: [address] [place] [address] Performed By: #### 2 4321-2 ####[facility] LABIA [id number] [address] [facility] Creatinine and Glomerular filtration rate.predicted panel (S/P/Bld) 92 mL/min/1.73m??? Normal >=60 [facility] Comment on above: Order Comment: Pallavi vázquez Type: BLOOD SPECIMENOrdering Facility: [facility] Address: [address] [place] [address] Result Comment: Dara mated Glomerular Filtration Rate (eGFR) is calculated using the 2020 CKD-EPI creatinine equation. This equation utilizes serum creatinine, sex, and age as parameters. The creatinine assay has traceable calibration to isotope dilution-mass spectrometry. Refer to KDIGO guidelines for clinical interpretation. In patients with unstable renal function, e.g. those with acute kidney injury, the eGFR may not accurately reflect actual GFR. Performed By: #### 2 4321-2 ####[facility] LABCLIA [id number] [place] [address] [place] Glucose [Mass/Vol] 121 mg/dL High 74-99 [facility] Comment on above: Order Comment: Pallavi vázquez Type: BLOOD SPECIMENOrdering Facility: [facility] Address: [address] [place] [address] Result Comment: The [place] [employer] (ADA) provides guidance for cutoff values for fasting glucose and random glucose. The ADA defines fasting as no caloric intake for at least 8 hours. Fasting plasma glucose results between 100 to 125 mg/dL indicate increased risk for diabetes (prediabetes).Fasting plasma glucose results greater than or equal to 126 mg/dL meet the criteria for diagnosis of diabetes. In the absence of unequivocal hyperglycemia, results should be confirmed by repeat testing. In a patient with classic symptoms of hyperglycemia or hyperglycemic crisis, random plasma glucose results greater than or equal to 200 mg/dL meet the criteria for diagnosis of diabetes.Reference: Standards of Medical Care in Diabetes 2016, [place] [employer]. Diabetes Care. 2016.39(Suppl 1). Performed By: #### 2 4321-2 ####[facility] LABCLIA [id number] [place] [address] [place] Potassium [Moles/Vol] 3.0 mmol/L Low 3.7-5.1 [facility] Comment on above: Order Comment: Speci men Type: BLOOD SPECIMENOrdering Facility: [facility] Address: [address] [place] [address] Performed By: #### 2 1-2 ####[facility] LABCLIA [id number] [place] [address] [place] Sodium [Moles/Vol] 140 mmol/L Normal 136-144 [facility] Comment on above: Order Comment: Speci men Type: BLOOD SPECIMENOrdering Facility: [facility] Address: [address] [place] [address] Performed By: #### 2 1-2 ####[facility] LABCLIA [id number] [place] [address] [place] Urea nitrogen [Mass/Vol] 10 mg/dL Normal 7-21 [facility] Comment on above: Order Comment: Speci men Type: BLOOD SPECIMENOrdering Facility: [facility] Address: [address] [place] [id number] Performed By: #### 2 1-2 ####[facility] LABCLIA [id number] [place] [id number] [place] Anion gap [Moles/Vol] 14 mmol/L Normal 8-15 [facility] Comment on above: Order Comment: Speci men Type: BLOOD SPECIMENOrdering Facility: [facility] Address: [address] [place] [address] Performed By: #### 2 1-2 ####[facility] LABCLIA [id number] [place] [address] [place] Calcium [Mass/Vol] 7.8 mg/dL Low 8.5-10.2 [facility] Comment on above: Order Comment: Speci men Type: BLOOD SPECIMENOrdering Facility: [facility] Address: [address] [place] [address] Performed By: #### 2 4321-2 ####[facility] LABCLIA [id number] [place] [address] [place] Chloride [Moles/Vol] 108 mmol/L High 98-107 [facility] Comment on above: Order Comment: Speci men Type: BLOOD SPECIMENOrdering Facility: [facility] Address: [address] [place] [address] Performed By: #### 2 4321-2 ####[facility] LABCLIA [id number] [place] [address] [place] CO2 [Moles/Vol] 18 mmol/L Low 22-30 [facility] Comment on above: Order Comment: Speci men Type: BLOOD SPECIMENOrdering Facility: [facility] Address: [address] [place] [address] Performed By: #### 2 4321-2 ####[facility] LABCLIA [id number] [place] [address] [place] Creatinine [Mass/Vol] 0.72 mg/dL Normal 0.58-0.96 [facility] Comment on above: Order Comment: Speci men Type: BLOOD SPECIMENOrdering Facility: [facility] Address: [address] [place] [address] Performed By: #### 2 4321-2 ####[facility] LABCLIA [id number] [place] [address] [place] Creatinine and Glomerular filtration rate.predicted panel (S/P/Bld) 87 mL/min/1.73m??? Normal >=60 [facility] Comment on above: Order Comment: Pallavi vázquez Type: BLOOD SPECIMENOrdering Facility: [facility] Address: [address] [place] [address] Result Comment: Dara mated Glomerular Filtration Rate (eGFR) is calculated using the 2020 CKD-EPI creatinine equation. This equation utilizes serum creatinine, sex, and age as parameters. The creatinine assay has traceable calibration to isotope dilution-mass spectrometry. Refer to KDIGO guidelines for clinical interpretation. In patients with unstable renal function, e.g. those with acute kidney injury, the eGFR may not accurately reflect actual GFR. Performed By: #### 2 4321-2 ####[facility] LABIA [id number] [place] [address] [place] Glucose [Mass/Vol] 131 mg/dL High 74-99 [facility] Comment on above: Order Comment: Pallavi vázquez Type: BLOOD SPECIMENOrdering Facility: [facility] Address: [address] [place] [address] Result Comment: The [place] [employer] (ADA) provides guidance for cutoff values for fasting glucose and random glucose. The ADA defines fasting as no caloric intake for at least 8 hours. Fasting plasma glucose results between 100 to 125 mg/dL indicate increased risk for diabetes (prediabetes).Fasting plasma glucose results greater than or equal to 126 mg/dL meet the criteria for diagnosis of diabetes. In the absence of unequivocal hyperglycemia, results should be confirmed by repeat testing. In a patient with classic symptoms of hyperglycemia or hyperglycemic crisis, random plasma glucose results greater than or equal to 200 mg/dL meet the criteria for diagnosis of diabetes.Reference: Standards of Medical Care in Diabetes 2016, [place] [employer]. Diabetes Care. 2016.39(Suppl 1). Performed By: #### 2 4321-2 ####[facility] LABIA [id number] [place] [address] [place] Potassium [Moles/Vol] 4.0 mmol/L Normal 3.7-5.1 [facility] Comment on above: Order Comment: Pallavi vázquez Type: BLOOD SPECIMENOrdering Facility: [facility] Address: [address] [place] [id number] Performed By: #### 2 4321-2 ####[facility] LABCLIA [id number] [place] [id number] [place] Sodium [Moles/Vol] 140 mmol/L Normal 136-144 [facility] Comment on above: Order Comment: Speci men Type: BLOOD SPECIMENOrdering Facility: [facility] Address: [address] [place] [address] Performed By: #### 2 4321-2 ####[facility] LABCLIA [id number] [place] [address] [place] Urea nitrogen [Mass/Vol] 14 mg/dL Normal 7-21 [facility] Comment on above: Order Comment: Speci men Type: BLOOD SPECIMENOrdering Facility: [facility] Address: [address] [place] [address] Performed By: #### 2 4321-2 ####[facility] LABCLIA [id number] [place] [id number] [place] CASE MANAGEMon 06-20-2024 CASE MANAGEM Normal [facility] CASE MGT INIT ASSESon 2023 CASE MGT INIT ASSES Normal [facility] CBC panel Auto (Bld)on 06-20 Erythrocyte distribution width (RBC) [Ratio] 15.0 % Normal 11.5-15.0 [facility] Comment on above: Order Comment: Speci men Type: BLOOD SPECIMENOrdering Facility: [facility] Address: [address] [place], [place] [address] Performed By: #### 5 8410-2 ####[facility] LABCLIA [id number] [place] [id number] [place] Hematocrit (Bld) [Volume fraction] 31.9 % Low 36.0-46.0 [facility] Comment on above: Order Comment: Speci men Type: BLOOD SPECIMENOrdering Facility: [facility] Address: [address] [place] [address] Performed By: #### 5 8410-2 ####[facility] LABCLIA [id number] [place] [address] [place] Hemoglobin (Bld) [Mass/Vol] 10.2 g/dL Low 11.5-15.5 [facility] Comment on above: Order Comment: Speci men Type: BLOOD SPECIMENOrdering Facility: [facility] Address: [address] [place] [address] Performed By: #### 5 8410-2 ####[facility] LABCLIA [id number] [place] [address] [place] MCH (RBC) [Entitic mass] 28.8 pg Normal 26.0-34.0 [facility] Comment on above: Order Comment: Speci men Type: BLOOD SPECIMENOrdering Facility: [facility] HOSP[facility] Address: [address] [place] [address] Performed By: #### 5 8410-2 ####[facility] LABIA [id number] [place] [address] [place] MCHC (RBC) [Mass/Vol] 32.0 g/dL Normal 30.5-36.0 [facility] Comment on above: Order Comment: Speci men Type: BLOOD SPECIMENOrdering Facility: [facility] Address: [address] [place] [address] Performed By: #### 5 8410-2 ####[facility] LABCLIA [id number] [place] [address] [place] MCV (RBC) [Entitic vol] 90.1 fL Normal 80.0-100.0 [facility] Comment on above: Order Comment: Speci men Type: BLOOD SPECIMENOrdering Facility: [facility] Address: [address] [place] [address] Performed By: #### 5 8410-2 ####[facility] LABCLIA [id number] [place] [address] [place] Nucleated RBC (Bld) [#/Vol] 10*3/uL Normal <0.01 [facility] Comment on above: Order Comment: Speci men Type: BLOOD SPECIMENOrdering Facility: [facility] Address: [address] [place] [address] Performed By: #### 5 8410-2 ####[facility] LABIA [id number] [place] [address] [place] Platelet mean volume (Bld) [Entitic vol] 10.6 fL Normal 9.0-12.7 [facility] Comment on above: Order Comment: Speci men Type: BLOOD SPECIMENOrdering Facility: [facility] Address: [address] [place] [address] Performed By: #### 5 8410-2 ####[facility] LABIA [id number] [place] [address] [place] Platelets (Bld) [#/Vol] 200 10*3/uL Normal 150-400 [facility] Comment on above: Order Comment: Speci men Type: BLOOD SPECIMENOrdering Facility: [facility] Address: [address] [place] [address] Performed By: #### 5 8410-2 ####[facility] LABIA [id number] [place] [address] [place] RBC (Bld) [#/Vol] 3.54 10*6/uL Low 3.90-5.[address] [facility] Comment on above: Order Comment: Speci men Type: BLOOD SPECIMENOrdering Facility: [facility] Address: [address] [place] [address] Performed By: #### 5 8410-2 ####[facility] LABIA [id number] [place] [address] [place] WBC (Bld) [#/Vol] 11.50 10*3/uL High 3.70-11.00 [facility] Comment on above: Order Comment: Speci men Type: BLOOD SPECIMENOrdering Facility: [facility] Address: [address] [place] [address] Performed By: #### 5 8410-2 ####[facility] LABIA [id number] [place] [address] [place] Erythrocyte distribution width (RBC) [Ratio] 15.3 % High 11.5-15.0 [facility] Comment on above: Order Comment: Speci men Type: BLOOD SPECIMENOrdering Facility: [facility] Address: [address] [place] [address] Performed By: #### 5 8410-2 ####[facility] LABIA [id number] [place] [address] [place] Hematocrit (Bld) [Volume fraction] 35.5 % Low 36.0-46.0 [facility] Comment on above: Order Comment: Speci men Type: BLOOD SPECIMENOrdering Facility: [facility] Address: [address] [place] [address] Performed By: #### 5 8410-2 ####[facility] LABIA [id number] [place] [address] [place] Hemoglobin (Bld) [Mass/Vol] 10.9 g/dL Low 11.5-15.5 [facility] Comment on above: Order Comment: Speci men Type: BLOOD SPECIMENOrdering Facility: [facility] Address: [address] [place] [address] Performed By: #### 5 8410-2 ####[facility] LABIA [id number] [place] [address] [place] MCH (RBC) [Entitic mass] 28.8 pg Normal 26.0-34.0 [facility] Comment on above: Order Comment: Speci men Type: BLOOD SPECIMENOrdering Facility: [facility] Address: [address] [place] [address] Performed By: #### 5 8410-2 ####[facility] LABCLIA [id number] [place] [address] [place] MCHC (RBC) [Mass/Vol] 30.7 g/dL Normal 30.5-36.0 [facility] Comment on above: Order Comment: Speci men Type: BLOOD SPECIMENOrdering Facility: [facility] Address: [address] [place] [address] Performed By: #### 5 8410-2 ####[facility] LABCLIA [id number] [place] [address] [place] MCV (RBC) [Entitic vol] 93.7 fL Normal 80.0-100.0 [facility] Comment on above: Order Comment: Speci men Type: BLOOD SPECIMENOrdering Facility: [facility] Address: [address] [place] [address] Performed By: #### 5 8410-2 ####[facility] LABIA [id number] [place] [address] [place] Nucleated RBC (Bld) [#/Vol] 10*3/uL Normal <0.01 [facility] Comment on above: Order Comment: Speci men Type: BLOOD SPECIMENOrdering Facility: [facility] Address: [address] [place] [address] Performed By: #### 5 8410-2 ####[facility] LABCLIA [id number] [place] [address] [place] Platelet mean volume (Bld) [Entitic vol] 10.9 fL Normal 9.0-12.7 [facility] Comment on above: Order Comment: Speci men Type: BLOOD SPECIMENOrdering Facility: [facility] Address: [address] [place] [address] Performed By: #### 5 8410-2 ####[facility] LABCLIA [id number] [place] [address] [place] Platelets (Bld) [#/Vol] 212 10*3/uL Normal 150-400 [facility] Comment on above: Order Comment: Speci men Type: BLOOD SPECIMENOrdering Facility: [facility] Address: [address] [place] [address] Performed By: #### 5 8410-2 ####[facility] [id number] [place] [address] [place] RBC (Bld) [#/Vol] 3.79 10*6/uL Low 3.90-5.[address] [facility] Comment on above: Order Comment: Speci men Type: BLOOD SPECIMENOrdering Facility: [facility] Address: [address] [place] [address] Performed By: #### 5 8410-2 ####[facility] [id number] [place] [address] [place] WBC (Bld) [#/Vol] 13.77 10*3/uL High 3.70-11.00 [facility] Comment on above: Order Comment: Speci men Type: BLOOD SPECIMENOrdering Facility: [facility] Address: [address] [place] [address] Performed By: #### 5 8410-2 ####[facility] [id number] [place] [address] [place] CONSULT PROGon 06-20-2024 CONSULT PROG Normal [facility] CONSULT PROG Normal [facility] THERAPY NTon 06-20-2024 THERAPY NT Normal [facility] ANES POSTPROC EVALon 024 ANES POSTPROC EVAL Normal [facility] ANES PRE-OPon 06-19-2024 ANES PRE-OP Normal [facility] BRIEF OP NOTon 06-19-2024 BRIEF OP NOT Normal [facility] BRIEF OP NOT Normal [facility] CNPNon 06-19-2024 CNPN Normal [facility] CONFIRM BLOOD TYPEon 024 ABO B Normal [facility] Comment on above: Order Comment: Speci men Type: BLOOD SPECIMENOrdering Facility: [facility] Address: [address] [place] [address] Performed By: #### C ONABO ####[facility] BLOOD BANKCLIA [id number] [place] [address] [place] Rh Nom (Bld) Positive Normal [facility] Comment on above: Order Comment: Speci men Type: BLOOD SPECIMENOrdering Facility: [facility] Address: [address] [place] [address] Performed By: #### C ONABO ####[facility] BLOOD BANKCLIA [id number] [place] [address] [place] OPERATIVE NOon 06-19-2024 OPERATIVE NO Normal [facility] SURGICAL PATHOLOGYon 024 CASE REPORT Normal [facility] Comment on above: Order Comment: Speci men Type: DEVICE SPECIMENOrdering Facility: [facility] Address: [address] [place] [address] Result Comment: Surg ica Pathology Report Case: [id number] Provider: Mart Enciso MD Collected: 06/19/2024 01:56 PMOrdering Location: Admitting Received: 06/19/2024 03:54 PMPathologist: Brian Rader MDSpecimen: Hardware/Device/Foreign Body, LEFT KNEE EXPLANTED HARDWARE Performed By: #### S ####[facility] LABCLIA [id number] [place] [address] [place] CLINICAL HISTORY Normal [facility] Comment on above: Order Comment: Speci men Type: DEVICE SPECIMENOrdering Facility: [facility] Address: [address] [place] [address] Result Comment: Pre- op diagnosis:Fibrosis of left knee joint [M24.662] Performed By: #### S ####[facility] LABCLIA [id number] [address] [place] FINAL DIAGNOSIS Normal [facility] Comment on above: Order Comment: Speci men Type: DEVICE SPECIMENOrdering Facility: [facility] Address: [address] [place] [address] Result Comment: A. O rthopedic hardware, left knee, removal:- Medical hardware (gross examination only).RH/[place] 06/20/24 Performed By: #### S ####[facility] LABCLIA [id number] [address] OF [facility] FINAL PERFORMING LAB Normal [facility] Comment on above: Order Comment: Speci kathie Type: DEVICE SPECIMENOrdering Facility: [facility] Address: [address] [place] [address] Result Comment: Diag nostic interpretation performed at [facility], [address] [place] [address] CLIA# [id number] Director: Marco A Montague M.D. Performed By: #### S ####[facility] LABCLIA [id number] [address] [place] GROSS DESCRIPTION Normal [facility] Comment on above: Order Comment: Pallavi vázquez Type: DEVICE SPECIMENOrdering Facility: [facility] Address: [address] [place] [address] Result Comment: A. H ardware/Device/Foreign BodyReceived fresh labeled left knee explanted hardware are components of a total knee prosthesis. The femoral component measures 6.7 x 6.7 x 4.4 cm and has the following inscription JUIIA. Attached bone cement is present. The articular surface is unremarkable. The tibial component measures 6.7 x 4.3 x 3.7 cm and has the following inscription [id number] No. 3 KDJWA.-Also received a polyethylene acetabular insert measuring 6.5 x 4.2 x 3.3 cm with the following inscription [id number] 11mm #3 [id number]. The articular surface demonstrates a slight yellow discoloration. No soft tissue is present. No sections are submitted. The specimen was shown to Dr. Rader.Gross examination performed at [facility], [address] [place] [address] CLIA# [id number] 06/20/24 10:53 AM Performed By: #### S ####[facility] LABCLIA [id number] [address] TYPE + SCREENon 06-19-2024 ABO B Normal [facility] Comment on above: Order Comment: Speci men Type: BLOOD SPECIMENOrdering Facility: [facility] Address: [address] [place] [address] Performed By: #### T SCR ####[facility] BLOOD BANKIA [id number] [address] [place] HISTORICAL AB SCR STATUS Negative Normal [facility] Comment on above: Order Comment: Speci men Type: BLOOD SPECIMENOrdering Facility: [facility] Address: [address] [place] [address] Performed By: #### T SCR ####[facility] BLOOD BANKIA [id number] [place] [address] [place] Rh Nom (Bld) Positive Normal [facility] Comment on above: Order Comment: Speci men Type: BLOOD SPECIMENOrdering Facility: [facility] Address: [address] [place] [address] Performed By: #### T SCR ####[facility] BLOOD BANKCLIA [id number] [place] [address] [facility] [place] TYPE AND SCREEN EXPIRATION 06/22/2024 23:59 Normal [facility] Comment on above: Order Comment: Speci men Type: BLOOD SPECIMENOrdering Facility: [facility] Address: [address] [place] [address] Performed By: #### T SCR ####[facility] BLOOD BANKCLIA [id number] [place] [address] [place] XR KNEE 2V AP/LAT LTon 06-19 XR KNEE 2V AP/LAT LT Normal [facility] CNPNon 06-09-2024 CNPN Normal [facility] CBC W Auto Differential pane l (Bld)on 06-06-2024 Basophils (Bld) [#/Vol] 0.08 10*3/uL [facility] Basophils/100 WBC (Bld) 0.9 % [facility] Differential cell count method Nom (Bld) Auto [facility] Eosinophils (Bld) [#/Vol] 0.28 10*3/uL [facility] Eosinophils/100 WBC (Bld) 3.1 % [facility] Erythrocyte distribution width (RBC) [Ratio] 14.6 % 11.5 - 15.0 % [facility] Hematocrit (Bld) [Volume fraction] 40.8 % 36.0 - 46.0 % [facility] Hemoglobin (Bld) [Mass/Vol] 13.6 g/dL 11.5 - 15.5 g/dL [facility] Immature granulocytes (Bld) [#/Vol] 0.04 10*3/uL [facility] Immature granulocytes/100 WBC (Bld) 0.4 % [facility] Lymphocytes (Bld) [#/Vol] 2.34 10*3/uL [facility] Lymphocytes/100 WBC (Bld) 25.9 % [facility] MCH (RBC) [Entitic mass] 28.9 pg 26. 0 - 34.0 pg [facility] MCHC (RBC) [Mass/Vol] 33.3 g/dL 30.5 - 36.0 g/dL [facility] MCV (RBC) [Entitic vol] 86.6 fL 80.0 - 100.0 fL [facility] Monocytes (Bld) [#/Vol] 0.60 10*3/uL [facility] Monocytes/100 WBC (Bld) 6.6 % [facility] Neutrophils (Bld) [#/Vol] 5.69 10*3/uL [facility] Neutrophils/100 WBC (Bld) 63.1 % [facility] Nucleated RBC (Bld) [#/Vol] [facility] Nucleated RBC/100 WBC (Bld) [Ratio] 0.0 % /100 WBC [facility] Platelet mean volume (Bld) [Entitic vol] 9.9 fL 9.0 - 12.7 fL [facility] Platelets (Bld) [#/Vol] 347 10*3/uL [facility] RBC (Bld) [#/Vol] 4.71 10*6/uL 3.90 - 5.2 0 m/uL [facility] WBC (Bld) [#/Vol] 9.03 10*3/uL [facility] Basophils (Bld) [#/Vol] 0.08 10*3/uL Normal <0.11 [facility] Comment on above: Order Comment: Speci men Type: BLOOD SPECIMENOrdering Facility: [facility] Address: [address] [place] [address] Performed By: #### 5 7021-8 ####[facility] [id number] [place] [address] [place] Basophils/100 WBC (Bld) 0.9 % Normal [facility] Comment on above: Order Comment: Speci men Type: BLOOD SPECIMENOrdering Facility: [facility] Address: [address] [place] [address] Performed By: #### 5 7021-8 ####[facility] [id number] [place] [address] [place] Differential cell count method Nom (Bld) Auto Normal [facility] Comment on above: Order Comment: Speci men Type: BLOOD SPECIMENOrdering Facility: [facility] Address: [address] [place] [address] Performed By: #### 5 7021-8 ####[facility] [id number] [place] [address] [place] Eosinophils (Bld) [#/Vol] 0.28 10*3/uL Normal <0.46 [facility] Comment on above: Order Comment: Speci men Type: BLOOD SPECIMENOrdering Facility: [facility] Address: [address] [place] [address] Performed By: #### 5 7021-8 ####[facility] MARIEL JONES [id number] [place] [address] [place] Eosinophils/100 WBC (Bld) 3.1 % Normal [facility] Comment on above: Order Comment: Speci men Type: BLOOD SPECIMENOrdering Facility: [facility] Address: [address] [place] [address] Performed By: #### 5 7021-8 ####[facility] LOISJUVENALCassi [id number] [place] [address] [place] Erythrocyte distribution width (RBC) [Ratio] 14.6 % Normal 11.5-15.0 [facility] Comment on above: Order Comment: Speci men Type: BLOOD SPECIMENOrdering Facility: [facility] Address: [address] [place] [address] Performed By: #### 5 7021-8 ####[facility] BULMAROGLEN BURNIEJUVENALA [id number] [place] [address] [place] Hematocrit (Bld) [Volume fraction] 40.8 % Normal 36.0-46.0 [facility] Comment on above: Order Comment: Speci men Type: BLOOD SPECIMENOrdering Facility: [facility] Address: [address] [place] [address] Performed By: #### 5 7021-8 ####[facility] BULMAROGLEN BURNIEYAMELLIA [id number] [place] [address] [place] Hemoglobin (Bld) [Mass/Vol] 13.6 g/dL Normal 11.5-15.5 [facility] Comment on above: Order Comment: Speci men Type: BLOOD SPECIMENOrdering Facility: [facility] Address: [address] [place] [address] Performed By: #### 5 7021-8 ####[facility] MILLWNCLIA [id number] [place] [address] [place] Immature granulocytes (Bld) [#/Vol] 0.04 10*3/uL Normal <0.10 [facility] Comment on above: Order Comment: Speci men Type: BLOOD SPECIMENOrdering Facility: [facility] Address: [address] [place] [address] Performed By: #### 5 7021-8 ####[facility]ITALWOHLIA [id number] [place] [address] [place] Immature granulocytes/100 WBC (Bld) 0.4 % Normal [facility] Comment on above: Order Comment: Speci men Type: BLOOD SPECIMENOrdering Facility: [facility] Address: [address] [place] [address] Performed By: #### 5 7021-8 ####[facility] [id number] [place] [address] [place] Lymphocytes (Bld) [#/Vol] 2.34 10*3/uL Normal 1.00-4.00 [facility] Comment on above: Order Comment: Speci men Type: BLOOD SPECIMENOrdering Facility: [facility] Address: [address] [place] [address] Performed By: #### 5 7021-8 ####[facility]ITALWNCLIA [id number] [place] [address] [place] Lymphocytes/100 WBC (Bld) 25.9 % Normal [facility] Comment on above: Order Comment: Speci men Type: BLOOD SPECIMENOrdering Facility: [facility] Address: [address] [place] [address] Performed By: #### 5 7021-8 ####[facility] BABIESNCLIA [id number] [place] [address] [place] MCH (RBC) [Entitic mass] 28.9 pg Normal 26.0-34.0 [facility] Comment on above: Order Comment: Speci men Type: BLOOD SPECIMENOrdering Facility: [facility] Address: [address] [place] [address] Performed By: #### 5 7021-8 ####[facility] [id number] [place] [address] [place] MCHC (RBC) [Mass/Vol] 33.3 g/dL Normal 30.5-36.0 [facility] Comment on above: Order Comment: Speci men Type: BLOOD SPECIMENOrdering Facility: [facility] Address: [address] [place] [address] Performed By: #### 5 7021-8 ####[facility] [id number] [place] [address] [place] MCV (RBC) [Entitic vol] 86.6 fL Normal 80.0-100.0 [facility] Comment on above: Order Comment: Speci men Type: BLOOD SPECIMENOrdering Facility: [facility] Address: [address] [place] [address] Performed By: #### 5 7021-8 ####[facility] BABIESNCLIA [id number] [place] [address] [place] Monocytes (Bld) [#/Vol] 0.60 10*3/uL Normal <0.87 [facility] Comment on above: Order Comment: Speci men Type: BLOOD SPECIMENOrdering Facility: [facility] Address: [address] [place] [address] Performed By: #### 5 7021-8 ####[facility] & BABIESNCLI [id number] [address] [place] Monocytes/100 WBC (Bld) 6.6 % Normal [facility] Comment on above: Order Comment: Speci men Type: BLOOD SPECIMENOrdering Facility: [facility] Address: [address] [place] [address] Performed By: #### 5 7021-8 ####[facility] & BABIESYAMELLIA [id number] [place] [address] [place] Neutrophils (Bld) [#/Vol] 5.69 10*3/uL Normal 1.45-7.50 [facility] Comment on above: Order Comment: Speci men Type: BLOOD SPECIMENOrdering Facility: [facility] Address: [address] [place] [address] Performed By: #### 5 7021-8 ####[facility] [id number] [place] [address] [place] Neutrophils/100 WBC (Bld) 63.1 % Normal [facility] Comment on above: Order Comment: Speci men Type: BLOOD SPECIMENOrdering Facility: [facility] Address: [address] [place] [address] Performed By: #### 5 7021-8 ####[facility] [id number] [place] [address] [place] Nucleated RBC (Bld) [#/Vol] 10*3/uL Normal <0.01 [facility] Comment on above: Order Comment: Speci men Type: BLOOD SPECIMENOrdering Facility: [facility] Address: [address] [place] [address] Performed By: #### 5 7021-8 ####[facility] [id number] [place] [address] [place] Nucleated RBC/100 WBC (Bld) [Ratio] 0.0 /100 WBC Normal [facility] Comment on above: Order Comment: Speci men Type: BLOOD SPECIMENOrdering Facility: [facility] Address: [address] [place] [address] Performed By: #### 5 7021-8 ####[facility] BULMAROWNCLIA [id number] [place] [address] [place] Platelet mean volume (Bld) [Entitic vol] 9.9 fL Normal 9.0-12.7 [facility] Comment on above: Order Comment: Speci men Type: BLOOD SPECIMENOrdering Facility: [facility] Address: [address] [place] [address] Performed By: #### 5 7021-8 ####[facility]ALTH[facility] [id number] [place] [address] [place] Platelets (Bld) [#/Vol] 347 10*3/uL Normal 150-400 [facility] Comment on above: Order Comment: Speci men Type: BLOOD SPECIMENOrdering Facility: [facility] Address: [address] [place] [address] Performed By: #### 5 7021-8 ####[facility] BABIESNCLIA [id number] [place] [address] [place] RBC (Bld) [#/Vol] 4.71 10*6/uL Normal 3.90-5.[address] [facility] Comment on above: Order Comment: Speci men Type: BLOOD SPECIMENOrdering Facility: [facility] Address: [address] [place] [address] Performed By: #### 5 7021-8 ####[facility] [id number] [place] [address] [place] WBC (Bld) [#/Vol] 9.03 10*3/uL Normal 3.70-11.[address] [facility] Comment on above: Order Comment: Speci men Type: BLOOD SPECIMENOrdering Facility: [facility] Address: [address] [place] [address] Performed By: #### 5 7021-8 ####[facility] BABIESNCLIA [id number] [place] [address] [place] Comprehensive metabolic 2000 panelOrdered By: Geri Branch on 06-06-2024 Albumin [Mass/Vol] 4.0 g/dL 3.9 - 4.9 g/dL [facility] ALP [Catalytic activity/Vol] 100 U/L 34 - 123 U/L [facility] [Catalytic activity/Vol] 15 U/L 7 - 38 U/L [facility] Anion gap [Moles/Vol] 10 mmol/L 8 - 15 mmol/L [facility] AST [Catalytic activity/Vol] 14 U/L 13 - 35 U/L [facility] Bilirubin [Mass/Vol] 0.3 mg/dL 0.2 - 1 .3 mg/dL [facility] Calcium [Mass/Vol] 9.4 mg/dL 8.5 - 10. 2 mg/dL [facility] Chloride [Moles/Vol] 102 mmol/L 98 - 10 7 mmol/L [facility] CO2 [Moles/Vol] 25 mmol/L 22 - 30 mmol/L [facility] Creatinine [Mass/Vol] 0.82 mg/dL 0.58 - 0.96 mg/dL [facility] GFR/1.73 sq M.predicted among non-blacks MDRD (S/P/Bld) [Vol rate/Area] 75 mL/min/{1.73_m2} - PINF [facility] Comment on above: Estimated Glomerular Filtration Rate (eGFR) is calculated using the 2020 CKD-EPI creatinine equation. This equation utilizes serum creatinine, sex, and age as parameters. The creatinine assay has traceable calibration to isotope dilution-mass spectrometry. Refer to KDIGO guidelines for clinical interpretation. In patients with unstable renal function, e.g. those with acute kidney injury, the eGFR may not accurately reflect actual GFR. Glucose [Mass/Vol] 117 mg/dL High 74 - 99 mg/dL [facility] Comment on above: The [place] Diabete s Association (ADA) provides guidance for cutoff values for fasting glucose and random glucose. The ADA defines fasting as no caloric intake for at least 8 hours. Fasting plasma glucose results between 100 to 125 mg/dL indicate increased risk for diabetes (prediabetes). Fasting plasma glucose results greater than or equal to 126 mg/dL meet the criteria for diagnosis of diabetes. In the absence of unequivocal hyperglycemia, results should be confirmed by repeat testing. In a patient with classic symptoms of hyperglycemia or hyperglycemic crisis, random plasma glucose results greater than or equal to 200 mg/dL meet the criteria for diagnosis of diabetes. Reference: Standards of Medical Care in Diabetes 2016, [place] Diabetes Association. Diabetes Care. 2016.39(Suppl 1). Interpretation and review of laboratory results Abnormal [facility] Potassium [Moles/Vol] 3.7 mmol/L 3.7 - 5.1 mmol/L [facility] Protein [Mass/Vol] 6.7 g/dL 6.3 - 8.0 g/dL [facility] Sodium [Moles/Vol] 137 mmol/L 136 - 144 mmol/L [facility] Urea nitrogen [Mass/Vol] 13 mg/dL 7 - 21 mg/d L [facility] Comprehensive metabolic 2000 panelon 06-06-2024 Albumin [Mass/Vol] 4.0 g/dL Normal 3.9-4.9 [facility] Comment on above: Order Comment: Aundreai kathie Type: BLOOD SPECIMENOrdering Facility: [facility] Address: [address] [place] [address] Performed By: #### 2 4323-8 ####[facility]HEALTHLIA [id number] [place] [address] [place] ALP [Catalytic activity/Vol] 100 U/L Normal 34-123 [facility] Comment on above: Order Comment: Aundreai kathie Type: BLOOD SPECIMENOrdering Facility: [facility] Address: [address] [place] [address] Performed By: #### 2 4323-8 ####[facility]ITALWNCLIA [id number] [place] [address] [place] ALT [Catalytic activity/Vol] 15 U/L Normal 7-38 [facility] Comment on above: Order Comment: Aundreai men Type: BLOOD SPECIMENOrdering Facility: [facility] Address: [address] [place] [address] Performed By: #### 2 4323-8 ####[facility]IOHEALTHLIA [id number] [place] [address] [place] Anion gap [Moles/Vol] 10 mmol/L Normal 8-15 [facility] Comment on above: Order Comment: Speci men Type: BLOOD SPECIMENOrdering Facility: [facility] Address: [address] [place] [address] Performed By: #### 2 4323-8 ####[facility]ITALWNCLIA [id number] [place] [address] [place] AST [Catalytic activity/Vol] 14 U/L Normal 13-35 [facility] Comment on above: Order Comment: Speci men Type: BLOOD SPECIMENOrdering Facility: [facility] Address: [address] [place] [address] Performed By: #### 2 4323-8 ####[facility] & BABIESNCLIA [id number] [place] [address] [place] Bilirubin [Mass/Vol] 0.3 mg/dL Normal 0.2-1.3 [facility] Comment on above: Order Comment: Speci men Type: BLOOD SPECIMENOrdering Facility: [facility] Address: [address] [place] [address] Performed By: #### 2 4323-8 ####[facility] & BABIESNCLIA [id number] [place] [address] [place] Calcium [Mass/Vol] 9.4 mg/dL Normal 8.5-10.2 [facility] Comment on above: Order Comment: Speci men Type: BLOOD SPECIMENOrdering Facility: [facility] Address: [address] [place] [address] Performed By: #### 2 4323-8 ####[facility] BABIESNCLIA [id number] [place] [address] [place] Chloride [Moles/Vol] 102 mmol/L Normal 98-107 [facility] Comment on above: Order Comment: Speci men Type: BLOOD SPECIMENOrdering Facility: [facility] Address: [address] [place] [address] Performed By: #### 2 4323-8 ####[facility] MARIEL GLORIAWNCLIA [id number] [place] [address] [place] CO2 [Moles/Vol] 25 mmol/L Normal 22-30 [facility] Comment on above: Order Comment: Speci men Type: BLOOD SPECIMENOrdering Facility: [facility] Address: [address] [place] [address] Performed By: #### 2 4323-8 ####[facility] GLORIAWNCLIA [id number] [address] [place] Creatinine [Mass/Vol] 0.82 mg/dL Normal 0.58-0.96 [facility] Comment on above: Order Comment: Speci men Type: BLOOD SPECIMENOrdering Facility: [facility] Address: [address] [place] [address] Performed By: #### 2 4323-8 ####[facility] BABIESNCLIA [id number] [address] Creatinine and Glomerular filtration rate.predicted panel (S/P/Bld) 75 mL/min/1.73m??? Normal >=60 [facility] Comment on above: Order Comment: Speci men Type: BLOOD SPECIMENOrdering Facility: [facility] Address: [address] [place] [address] Result Comment: Dara mated Glomerular Filtration Rate (eGFR) is calculated using the 2020 CKD-EPI creatinine equation. This equation utilizes serum creatinine, sex, and age as parameters. The creatinine assay has traceable calibration to isotope dilution-mass spectrometry. Refer to KDIGO guidelines for clinical interpretation. In patients with unstable renal function, e.g. those with acute kidney injury, the eGFR may not accurately reflect actual GFR. Performed By: #### 2 4323-8 ####[facility]ITALWNCLIA [id number] [place] [address] [place] Glucose [Mass/Vol] 117 mg/dL High 74-99 [facility] Comment on above: Order Comment: Speci men Type: BLOOD SPECIMENOrdering Facility: [facility] Address: [address] [place] [address] Result Comment: The [place] Diabetes Association (ADA) provides guidance for cutoff values for fasting glucose and random glucose. The ADA defines fasting as no caloric intake for at least 8 hours. Fasting plasma glucose results between 100 to 125 mg/dL indicate increased risk for diabetes (prediabetes).Fasting plasma glucose results greater than or equal to 126 mg/dL meet the criteria for diagnosis of diabetes. In the absence of unequivocal hyperglycemia, results should be confirmed by repeat testing. In a patient with classic symptoms of hyperglycemia or hyperglycemic crisis, random plasma glucose results greater than or equal to 200 mg/dL meet the criteria for diagnosis of diabetes.Reference: Standards of Medical Care in Diabetes 2016, [place] Diabetes Association. Diabetes Care. 2016.39(Suppl 1). Performed By: #### 2 4323-8 ####[facility] MARIELPROCTOR HOSPITALWNCLIA [id number] [place] [address] [place] Potassium [Moles/Vol] 3.7 mmol/L Normal 3.7-5.1 [facility] Comment on above: Order Comment: Speci men Type: BLOOD SPECIMENOrdering Facility: [facility] Address: [address] [place] [address] Performed By: #### 2 4323-8 ####[facility] MILLTOWNCLIA [id number] [place] [address] [place] Protein [Mass/Vol] 6.7 g/dL Normal 6.3-8.0 [facility] Comment on above: Order Comment: Speci men Type: BLOOD SPECIMENOrdering Facility: [facility] Address: [address] [place] [address] Performed By: #### 2 4323-8 ####[facility]OS[facility]ITALWNCLIA [id number] [place] [address] [place] Sodium [Moles/Vol] 137 mmol/L Normal 136-144 [facility] Comment on above: Order Comment: Speci men Type: BLOOD SPECIMENOrdering Facility: [facility] Address: [address] [place] [address] Performed By: #### 2 4323-8 ####OHIOHEALTHROXYCassi [id number] [place] [address] [place] Urea nitrogen [Mass/Vol] 13 mg/dL Normal 7-21 [facility] Comment on above: Order Comment: Speci men Type: BLOOD SPECIMENOrdering Facility: [facility] Address: [address] [place] [address] Performed By: #### 2 4323-8 ####[facility]HEALTHDEVIN [id number] [place] [address] [place] JPE30ru 06-06-2024 ECG01 Normal [facility] HISTORY PHYSICALon HISTORY PHYSICAL Normal [facility] HbA1c (Bld)on 06-06-2024 Average glucose Estimated from glycated hemoglobin (Bld) [Mass/Vol] 154 mg/dL Normal [facility] Comment on above: Order Comment: Speci men Type: BLOOD SPECIMENOrdering Facility: [facility] Address: [address] [place] [address] Result Comment: eAG: (Estimated average glucose) is a calculated value from HgbA1c and is auto claim representative of the average blood glucose level in the last 2-3 month period. Performed By: #### 5 5454-3 ####[facility] LABCLIA [id number] [facility] [id number] [place] [address] [place] HbA1c (Bld) [Mass fraction] 7.0 % High 4.3-5.6 [facility] Comment on above: Order Comment: Speci men Type: BLOOD SPECIMENOrdering Facility: [facility] Address: [address] [place] [address] Result Comment: [place] Diabetes Association guidelines indicate that patients with HgbA1c in the range 5.7-6.4% are at increased risk for development of diabetes, and intervention by lifestyle modification may be beneficial. HgbA1c greater or equal to 6.5% is considered diagnostic of diabetes. Performed By: #### 5 5454-3 ####[facility] LABCLIA [id number] [place] [address] [place] CNOVon 05-21-2024 CNOV Normal [facility] CNOVon 04-16-2024 CNOV Normal [facility] CNCOon 04-11-2024 CNCO Normal [facility] MAHESH SCREENING W TOMOon 04-11 MAHESH SCREENING W JEFERSON [facility] 25(OH)D3 SerPl-mCncon 2023 25-hydroxyvitamin D3 [Mass/Vol] 42.8 ng/mL Normal 31.0-80.0 [facility] Comment on above: Order Comment: Speci men Type: BLOOD SPECIMENOrdering Facility: [facility] Address: [address] [place] [address] Result Comment: Clas sification of 25 OH Vitamin D status:Deficiency/Insufficiency: < or = 30 ng/ml.Sufficiency/Optimal Levels: 31-80 ng/mLToxicity: > 100 ng/mL.Test performed by chemiluminescent immunoassay. Performed By: #### 1 989-3 ####[facility] LABIA [id number] [place] [address] [place] ALBUMIN/CREATININE RATIO, UR INEon 03-31-2024 Albumin DL <= 20 mg/L (U) [Mass/Vol] mg/dL Normal [facility] Comment on above: Order Comment: Speci men Type: URINE SPECIMENOrdering Facility: [facility] Address: [address] [place] [address] Performed By: #### U ACR ####[facility] LABCLIA [id number] [place] [address] [place] Albumin/Creatinine (U) [Mass ratio] Normal [facility] Comment on above: Order Comment: Speci men Type: URINE SPECIMENOrdering Facility: [facility] Address: [address] [place] [address] Result Comment: Not calculatedAdult Male and Female Nephrotic Criteria:<30 mg/g is considered normal to mildly tuglbxewo54-805 mg/g is considered moderately increased>300 mg/g is considered severely increasedKDIGO. (2013). KDIGO 2012 Clinical Practice Guideline for the Evaluation and Management of Chronic Kidney Disease. Official Journal of the International Society of Nephrology, 3(1), 1-150. Performed By: #### U ACR ####[facility] LABIA [id number] [place] [address] [place] Creatinine (U) [Mass/Vol] 26.0 mg/dL Normal 20.0-300.0 [facility] Comment on above: Order Comment: Speci men Type: URINE SPECIMENOrdering Facility: [facility] Address: [address] [place] [address] Performed By: #### U ACR ####[facility] LABIA [id number] [place] [address] [place] CBC W Auto Differential pane l (Bld)on 03-31-2024 Basophils (Bld) [#/Vol] 0.09 10*3/uL Normal <0.11 [facility] Comment on above: Order Comment: Speci men Type: BLOOD SPECIMENOrdering Facility: [facility] Address: [address] [place] [address] Performed By: #### 5 7021-8 ####[facility] [id number] [place] [address] [place] Basophils/100 WBC (Bld) 0.8 % Normal [facility] Comment on above: Order Comment: Speci men Type: BLOOD SPECIMENOrdering Facility: [facility] Address: [address] [place] [address] Performed By: #### 5 7021-8 ####[facility] BULMAROWNCLIA [id number] [place] [address] [place] Differential cell count method Nom (Bld) Auto Normal [facility] Comment on above: Order Comment: Speci men Type: BLOOD SPECIMENOrdering Facility: [facility] Address: [address] [place] [address] Performed By: #### 5 7021-8 ####[facility] & BABIESYAMELLIA [id number] [place] [address] [place] Eosinophils (Bld) [#/Vol] 0.51 10*3/uL High <0.46 [facility] Comment on above: Order Comment: Speci men Type: BLOOD SPECIMENOrdering Facility: [facility] Address: [address] [place] [address] Performed By: #### 5 7021-8 ####[facility] & BABIESYAMELA [id number] [place] [address] [place] Eosinophils/100 WBC (Bld) 4.6 % Normal [facility] Comment on above: Order Comment: Speci men Type: BLOOD SPECIMENOrdering Facility: [facility] Address: [address] [place] [address] Performed By: #### 5 7021-8 ####[facility] BABIESJUVENALA [id number] [place] [address] [place] Erythrocyte distribution width (RBC) [Ratio] 14.7 % Normal 11.5-15.0 [facility] Comment on above: Order Comment: Speci men Type: BLOOD SPECIMENOrdering Facility: [facility] Address: [address] [place] [address] Performed By: #### 5 7021-8 ####[facility] BABIESNCLIA [id number] [place] [address] [place] Hematocrit (Bld) [Volume fraction] 40.9 % Normal 36.0-46.0 [facility] Comment on above: Order Comment: Speci men Type: BLOOD SPECIMENOrdering Facility: [facility] Address: [address] [place] [address] Performed By: #### 5 7021-8 ####[facility]IESNCUT[facility] [id number] [place] [address] [place] Hemoglobin (Bld) [Mass/Vol] 13.2 g/dL Normal 11.5-15.5 [facility] Comment on above: Order Comment: Speci men Type: BLOOD SPECIMENOrdering Facility: [facility] Address: [address] [place] [address] Performed By: #### 5 7021-8 ####[facility] [id number] [place] [address] [place] Immature granulocytes (Bld) [#/Vol] 0.04 10*3/uL Normal <0.10 [facility] Comment on above: Order Comment: Speci men Type: BLOOD SPECIMENOrdering Facility: [facility] Address: [address] [place] [address] Performed By: #### 5 7021-8 ####[facility] [id number] [place] [address] [place] Immature granulocytes/100 WBC (Bld) 0.4 % Normal [facility] Comment on above: Order Comment: Speci men Type: BLOOD SPECIMENOrdering Facility: [facility] Address: [address] [place] [address] Performed By: #### 5 7021-8 ####[facility] [id number] [place] [address] [place] Lymphocytes (Bld) [#/Vol] 1.65 10*3/uL Normal 1.00-4.00 [facility] Comment on above: Order Comment: Speci men Type: BLOOD SPECIMENOrdering Facility: [facility] Address: [address] [place] [address] Performed By: #### 5 7021-8 ####[facility] BABIESMARYJANE [id number] [address] STATES [facility] Lymphocytes/100 WBC (Bld) 14.9 % Normal [facility] Comment on above: Order Comment: Speci men Type: BLOOD SPECIMENOrdering Facility: [facility] Address: [address] [place] [address] Performed By: #### 5 7021-8 ####[facility] BABIESJUVENAL [id number] [place] [address] [place] MCH (RBC) [Entitic mass] 28.7 pg Normal 26.0-34.0 [facility] Comment on above: Order Comment: Speci men Type: BLOOD SPECIMENOrdering Facility: [facility] Address: [address] [place] [address] Performed By: #### 5 7021-8 ####[facility] [id number] [place] [address] [place] MCHC (RBC) [Mass/Vol] 32.3 g/dL Normal 30.5-36.0 [facility] Comment on above: Order Comment: Speci men Type: BLOOD SPECIMENOrdering Facility: [facility] Address: [address] [place] [address] Performed By: #### 5 7021-8 ####[facility] & BABIESNCLIA [id number] [place] [address] [place] MCV (RBC) [Entitic vol] 88.9 fL Normal 80.0-100.0 [facility] Comment on above: Order Comment: Speci men Type: BLOOD SPECIMENOrdering Facility: [facility] Address: [address] [place] [address] Performed By: #### 5 7021-8 ####[facility]ITALWNCLIA [id number] [place] [address] [place] Monocytes (Bld) [#/Vol] 0.65 10*3/uL Normal <0.87 [facility] Comment on above: Order Comment: Speci men Type: BLOOD SPECIMENOrdering Facility: [facility] Address: [address] [place] [address] Performed By: #### 5 7021-8 ####OHIOHEALTHLIA [id number] [place] [address] [place] Monocytes/100 WBC (Bld) 5.9 % Normal [facility] Comment on above: Order Comment: Speci men Type: BLOOD SPECIMENOrdering Facility: [facility] Address: [address] [place] [address] Performed By: #### 5 7021-8 ####[facility] [id number] [place] [address] [place] Neutrophils (Bld) [#/Vol] 8.15 10*3/uL High 1.45-7.50 [facility] Comment on above: Order Comment: Speci men Type: BLOOD SPECIMENOrdering Facility: [facility] Address: [address] [place] [address] Performed By: #### 5 7021-8 ####OHIOHEALTHLIA [id number] [place] [address] [place] Neutrophils/100 WBC (Bld) 73.4 % Normal [facility] Comment on above: Order Comment: Speci men Type: BLOOD SPECIMENOrdering Facility: [facility] Address: [address] [place] [address] Performed By: #### 5 7021-8 ####OHIOHEALTHLIA [id number] [place] [address] [place] Nucleated RBC (Bld) [#/Vol] 10*3/uL Normal <0.01 [facility] Comment on above: Order Comment: Speci men Type: BLOOD SPECIMENOrdering Facility: [facility] Address: [address] [place] [address] Performed By: #### 5 7021-8 ####[facility] [id number] [place] [address] [place] Nucleated RBC/100 WBC (Bld) [Ratio] 0.0 /100 WBC Normal [facility] Comment on above: Order Comment: Speci men Type: BLOOD SPECIMENOrdering Facility: [facility] Address: [address] [place] [address] Performed By: #### 5 7021-8 ####[facility] [id number] [place] [address] [place] Platelet mean volume (Bld) [Entitic vol] 10.6 fL Normal 9.0-12.7 [facility] Comment on above: Order Comment: Speci men Type: BLOOD SPECIMENOrdering Facility: [facility] Address: [address] [place] [address] Performed By: #### 5 7021-8 ####[facility] [id number] [place] [address] [place] Platelets (Bld) [#/Vol] 289 10*3/uL Normal 150-400 [facility] Comment on above: Order Comment: Speci men Type: BLOOD SPECIMENOrdering Facility: [facility] Address: [address] [place] [address] Performed By: #### 5 7021-8 ####[facility] [id number] [place] [address] [place] RBC (Bld) [#/Vol] 4.60 10*6/uL Normal 3.90-5.[address] [facility] Comment on above: Order Comment: Speci men Type: BLOOD SPECIMENOrdering Facility: [facility] Address: [address] [place], [place] [address] Performed By: #### 5 7021-8 ####[facility] LOISYAMELDEVIN [id number] [place] [address] [place] WBC (Bld) [#/Vol] 11.09 10*3/uL High 3.70-11.00 [facility] Comment on above: Order Comment: Speci men Type: BLOOD SPECIMENOrdering Facility: [facility] Address: [address] [place] [address] Performed By: #### 5 7021-8 ####[facility] BULMAROGLEN BURNIEMARYJANE [id number] [place] [address] [place] Comprehensive metabolic 2000 panelon 03-31-2024 Albumin [Mass/Vol] 4.0 g/dL Normal 3.9-4.9 [facility] Comment on above: Order Comment: Speci men Type: BLOOD SPECIMENOrdering Facility: [facility] Address: [address] [place], [place] [address] Performed By: #### 2 4323-8 ####[facility] & BABIESJUVENALA [id number] [place] [address] [place] ALP [Catalytic activity/Vol] 100 U/L Normal 34-123 [facility] Comment on above: Order Comment: Speci men Type: BLOOD SPECIMENOrdering Facility: [facility] Address: [address] [place] [address] Performed By: #### 2 4323-8 ####[facility] & BABIESNCLIA [id number] [place] [address] [place] ALT [Catalytic activity/Vol] 18 U/L Normal 7-38 [facility] Comment on above: Order Comment: Speci men Type: BLOOD SPECIMENOrdering Facility: [facility] Address: [address] [place] [address] Performed By: #### 2 4323-8 ####[facility] MARIEL MILLTOWNCLIA [id number] [place] [address] [place] Anion gap [Moles/Vol] 11 mmol/L Normal 8-15 [facility] Comment on above: Order Comment: Speci men Type: BLOOD SPECIMENOrdering Facility: [facility] Address: [address] [place] [address] Performed By: #### 2 4323-8 ####[facility] MILLTOWNCLIA [id number] [place] [address] [place] AST [Catalytic activity/Vol] 19 U/L Normal 13-35 [facility] Comment on above: Order Comment: Speci men Type: BLOOD SPECIMENOrdering Facility: [facility] Address: [address] [place] [address] Performed By: #### 2 4323-8 ####[facility]ITALWNCLIA [id number] [place] [address] [place] Bilirubin [Mass/Vol] 0.3 mg/dL Normal 0.2-1.3 [facility] Comment on above: Order Comment: Speci men Type: BLOOD SPECIMENOrdering Facility: [facility] Address: [address] [place] [address] Performed By: #### 2 4323-8 ####[facility] MILLTOWNCLIA [id number] [place] [address] [place] Calcium [Mass/Vol] 9.1 mg/dL Normal 8.5-10.2 [facility] Comment on above: Order Comment: Speci men Type: BLOOD SPECIMENOrdering Facility: [facility] Address: [address] [place] [address] Performed By: #### 2 4323-8 ####[facility] MILLTOWNCLIA [id number] [place] [address] [place] Chloride [Moles/Vol] 103 mmol/L Normal 98-107 [facility] Comment on above: Order Comment: Speci men Type: BLOOD SPECIMENOrdering Facility: [facility] Address: [address] [place] [address] Performed By: #### 2 4323-8 ####[facility] [id number] [place] [address] [place] CO2 [Moles/Vol] 24 mmol/L Normal 22-30 [facility] Comment on above: Order Comment: Speci men Type: BLOOD SPECIMENOrdering Facility: [facility] Address: [address] [place] [address] Performed By: #### 2 4323-8 ####[facility] [id number] [place] [address] [place] Creatinine [Mass/Vol] 0.83 mg/dL Normal 0.58-0.96 [facility] Comment on above: Order Comment: Speci men Type: BLOOD SPECIMENOrdering Facility: [facility] Address: [address] [place] [address] Performed By: #### 2 4323-8 ####[facility] [id number] [address] [facility] Creatinine and Glomerular filtration rate.predicted panel (S/P/Bld) 74 mL/min/1.73m??? Normal >=60 [facility] Comment on above: Order Comment: Speci men Type: BLOOD SPECIMENOrdering Facility: [facility] Address: [address] [place] [address] Result Comment: Dara mated Glomerular Filtration Rate (eGFR) is calculated using the 2020 CKD-EPI creatinine equation. This equation utilizes serum creatinine, sex, and age as parameters. The creatinine assay has traceable calibration to isotope dilution-mass spectrometry. Refer to KDIGO guidelines for clinical interpretation. In patients with unstable renal function, e.g. those with acute kidney injury, the eGFR may not accurately reflect actual GFR. Performed By: #### 2 4323-8 ####[facility] MILLTOWNCLIA [id number] [place] [address] [place] Glucose [Mass/Vol] 226 mg/dL High 74-99 [facility] Comment on above: Order Comment: Speci men Type: BLOOD SPECIMENOrdering Facility: [facility] Address: [address] [place] [address] Result Comment: The [place] Diabetes Association (ADA) provides guidance for cutoff values for fasting glucose and random glucose. The ADA defines fasting as no caloric intake for at least 8 hours. Fasting plasma glucose results between 100 to 125 mg/dL indicate increased risk for diabetes (prediabetes).Fasting plasma glucose results greater than or equal to 126 mg/dL meet the criteria for diagnosis of diabetes. In the absence of unequivocal hyperglycemia, results should be confirmed by repeat testing. In a patient with classic symptoms of hyperglycemia or hyperglycemic crisis, random plasma glucose results greater than or equal to 200 mg/dL meet the criteria for diagnosis of diabetes.Reference: Standards of Medical Care in Diabetes 2016, [place] [employer] Association. Diabetes Care. 2016.39(Suppl 1). Performed By: #### 2 4323-8 ####[facility]ITAL[facility]CL[facility] [id number] [place] [address] [place] Potassium [Moles/Vol] 3.9 mmol/L Normal 3.7-5.1 [facility] Comment on above: Order Comment: Speci men Type: BLOOD SPECIMENOrdering Facility: [facility] Address: [address] [id number] Performed By: #### 2 4323-8 ####[facility] BULMAROWNCLIA [id number] [place] [address] [place] Protein [Mass/Vol] 6.6 g/dL Normal 6.3-8.0 [facility] Comment on above: Order Comment: Speci men Type: BLOOD SPECIMENOrdering Facility: [facility] Address: [address] [place], [place] [address] Performed By: #### 2 4323-8 ####[facility] BABIESNCLIA [id number] [place] [address] [place] Sodium [Moles/Vol] 138 mmol/L Normal 136-144 [facility] Comment on above: Order Comment: Speci men Type: BLOOD SPECIMENOrdering Facility: [facility] Address: [address] [place] [address] Performed By: #### 2 4323-8 ####[facility] [id number] [place] [address] [place] Urea nitrogen [Mass/Vol] 15 mg/dL Normal 7-21 [facility] Comment on above: Order Comment: Speci men Type: BLOOD SPECIMENOrdering Facility: [facility] Address: [address] [place] [address] Performed By: #### 2 4323-8 ####[facility] [id number] [place] [address] [place] Ferritin SerPl-mCncon 2023 Ferritin [Mass/Vol] 28.8 ng/mL Normal 14.7-205.[address] [facility] Comment on above: Order Comment: Speci men Type: BLOOD SPECIMENOrdering Facility: [facility] Address: [address] [place] [address] Performed By: #### 2 132-9, 2276-4 ####[facility] LABCLIA [id number] [place] [address] [place] HbA1c (Bld)on 03-31-2024 Average glucose Estimated from glycated hemoglobin (Bld) [Mass/Vol] 154 mg/dL Normal [facility] Comment on above: Order Comment: Speci men Type: BLOOD SPECIMENOrdering Facility: [facility] Address: [address] [place] [address] Result Comment: eAG: (Estimated average glucose) is a calculated value from HgbA1c and is auto claim representative of the average blood glucose level in the last 2-3 month period. Performed By: #### 5 5454-3 ####[facility] LABCLIA [id number] [place] [address] [place] HbA1c (Bld) [Mass fraction] 7.0 % High 4.3-5.6 [facility] Comment on above: Order Comment: Speci men Type: BLOOD SPECIMENOrdering Facility: [facility] Address: [address] [place] [address] Result Comment: [place] Diabetes Association guidelines indicate that patients with HgbA1c in the range 5.7-6.4% are at increased risk for development of diabetes, and intervention by lifestyle modification may be beneficial. HgbA1c greater or equal to 6.5% is considered diagnostic of diabetes. Performed By: #### 5 5454-3 ####[facility] LABCLIA [id number] [place] [address] [place] Iron and Iron binding capaci ty panelon 03-31-2024 Iron [Mass/Vol] 43 ug/dL Normal 41-186 [facility] Comment on above: Order Comment: Aundreai men Type: BLOOD SPECIMENOrdering Facility: [facility] Address: [address] [place] [address] Performed By: #### 3 051-0, 3016-3, 10409-7, 3024-7 ####[facility] LABCLIA [id number] [place] [address] [place] Iron binding capacity [Mass/Vol] 306 ug/dL Normal 232-386 [facility] Comment on above: Order Comment: Speci men Type: BLOOD SPECIMENOrdering Facility: [facility] Address: [address] [place] [address] Performed By: #### 3 051-0, 3016-3, 62724-2, 3024-7 ####[facility] LABCLIA [id number] [place] [address] [place] Iron/TIBC [Molar ratio] 14.1 % Low 15.0-57.0 [facility] Comment on above: Order Comment: Speci men Type: BLOOD SPECIMENOrdering Facility: [facility] Address: [address] [place] [address] Performed By: #### 3 051-0, 3016-3, 17015-0, 3024-7 ####[facility] LABIA [id number] [place] [address] [place] T3Free SerPl-mCncon 03-31-20 24 Free T3 [Mass/Vol] 2.5 pg/mL Normal 2.3-4.1 [facility] Comment on above: Order Comment: Speci men Type: BLOOD SPECIMENOrdering Facility: [facility] Address: [address] [place] [address] Performed By: #### 3 051-0, 3016-3, 64265-4, 7 ####[facility] LABIA [id number] [place] [address] [place] T4 Free SerPl-mCncon 024 Free T4 [Mass/Vol] 1.5 ng/dL Normal 0.9-1.7 [facility] Comment on above: Order Comment: Speci men Type: BLOOD SPECIMENOrdering Facility: [facility] Address: [address] [place] [address] Performed By: #### 3 051-0, 3016-3, 19650-8, 3023-7 ####[facility] LABIA [id number] [place] [address] [place] TSH SerPl-aCncon 03-31-2024 TSH Qn 0.144 m[IU]/L Low 0.270-4.200 [facility] Comment on above: Order Comment: Speci men Type: BLOOD SPECIMENOrdering Facility: [facility] Address: [address] [place] [address] Performed By: #### 3 051-0, 3016-3, 50836-4, 3024-7 ####[facility] LABCLIA [id number] [place] [id number] [place] Vit B12 SerPl-mCncon 07-08-2 024 Cobalamin (Vitamin B12) [Mass/Vol] 200 pg/mL Low 232-1245 [facility] Comment on above: Order Comment: Speci men Type: BLOOD SPECIMENOrdering Facility: [facility] Address: [address] [place] [address] Performed By: #### 2 132-9, 2276-4 ####[facility] LABCLIA [id number] [place] [address] [place] CNOVon 03-04-2024 CNOV Normal [facility] Guidance for arthrocentesis of Major jointon 11-14-2023 [facility] XR Knee AP and Lateral and M erchantson 10-30-2023 IMPRESSION: Findings as discussed in results portion of report [employer] Products Checker: DARLINE Transcribe Date/Time: Oct 30 2023 8:25A Dictated by : YONATHAN ROSS DO This examination was interpreted and the report reviewed and electronically signed by: YONATHAN ROSS DO on Oct 30 2023 8:26AM [facility] * * *Final Report* * * DATE OF EXAM: Oct 30 2023 8:10AM ASHLEY 5208 - XR KNEE 3V AP/LAT/MERCHANT LT / PROCEDURE REASON: M25.562-Left knee pain, unspecified chronicity * * * * Physician Interpretation * * * * EXAM(s): XR KNEE 3V AP/LAT/MERCHANT LT EXAM DATE/TIME: 10/30/2023 8:10 AM HISTORY: 72 years old Clinical information: Left knee pain, unspecified chronicity LEFT KNEE PAIN Bilateral, wt bearing AP and bilateral merchant TECHNIQUE: Images: XR KNEE 3V AP/LAT/MERCHANT LT Comparison: 05/19/2014 RESULT: Findings: Bilateral findings: 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 There is no evidence of loosening of the components. Right :No fractures or dislocations are seen. Interval placement of RIGHT total knee Arthroplasty. Left :No fractures or dislocations are seen. [facility] Provider, [facility] [place] - 10/30/2023 * * *Final Report* * * DATE OF EXAM: Oct 30 2023 8:10AM A[facility] 5208 - XR KNEE 3V AP/LAT/MERCHANT LT / PROCEDURE REASON: M25.562-Left knee pain, unspecified chronicity * * * * Physician Interpretation * * * * EXAM(s): XR KNEE 3V AP/LAT/MERCHANT LT EXAM DATE/TIME: 10/30/2023 8:10 AM HISTORY: 72 years old Clinical information: Left knee pain, unspecified chronicity LEFT KNEE PAIN Bilateral, wt bearing AP and bilateral merchant TECHNIQUE: Images: XR KNEE 3V AP/LAT/MERCHANT LT Comparison: 05/19/2014 RESULT: Findings: Bilateral findings: 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 There is no evidence of loosening of the components. Right :No fractures or dislocations are seen. Interval placement of RIGHT total knee Arthroplasty. Left :No fractures or dislocations are seen. IMPRESSION IMPRESSION: Findings as discussed in results portion of report [employer] Checker: DARLINE Transcribe Date/Time: Oct 30 2023 8:25A Dictated by : YONATHAN ROSS DO This examination was interpreted and the report reviewed and electronically signed by: YONATHAN ROSS DO on Oct 30 2023 8:26AM EST [facility] Radiology Study observation (narrative) Marissa Lemus XR Knee AP and Lateral and M erchantsOrdered By: Ccf Provider on 10-30-2023 [facility] Comprehensive metabolic 2000 panelon 10-18-2023 Albumin [Mass/Vol] 4.3 g/dL 3.9 - 4.9 g/dL [facility] ALP [Catalytic activity/Vol] 104 U/L 34 - 123 U/L [facility] ALT [Catalytic activity/Vol] 18 U/L 7 - 38 U/L [facility] Anion gap [Moles/Vol] 14 mmol/L 9 - 18 mmol/L [facility] AST [Catalytic activity/Vol] 19 U/L 13 - 35 U/L [facility] Bilirubin [Mass/Vol] 0.2 mg/dL 0.2 - 1 .3 mg/dL [facility] Calcium [Mass/Vol] 10.3 mg/dL High 8.5 - 10. 2 mg/dL [facility] Chloride [Moles/Vol] 104 mmol/L 97 - 10 5 mmol/L [facility] CO2 [Moles/Vol] 25 mmol/L 22 - 30 mmol/L [facility] Creatinine [Mass/Vol] 0.90 mg/dL 0.58 - 0.96 mg/dL [facility] Estimated Glomerular Filtration Rate 67 mL/min/1.73m >=60 mL/min/1.73m [facility] Glucose [Mass/Vol] 136 mg/dL High 74 - 99 mg/dL [facility] Potassium [Moles/Vol] 4.5 mmol/L 3.7 - 5.1 mmol/L [facility] Protein [Mass/Vol] 7.5 g/dL 6.3 - 8.0 g/dL [facility] Sodium [Moles/Vol] 143 mmol/L 136 - 144 mmol/L [facility] Urea nitrogen [Mass/Vol] 15 mg/dL 7 - 21 mg/d L [facility] FERRITIN BLDon 10-18-2023 Ferritin [Mass/Vol] 44.5 ng/mL 14.7 - 2 05.1 ng/mL [facility] HbA1c (Bld)on 10-18-2023 Average glucose Estimated from glycated hemoglobin (Bld) [Mass/Vol] 160 mg/dL [facility] HbA1c (Bld) [Mass fraction] 7.2 % High 4.3 - 5.6 % [facility] Iron and Iron binding capaci ty panelon 10-18-2023 Iron [Mass/Vol] 46 ug/dL 41 - 186 ug/dL [facility] Iron binding capacity [Mass/Vol] 360 ug/dL 232 - 386 ug/dL [facility] Iron/TIBC [Molar ratio] 12.8 % Low 15.0 - 57.0 % [facility] Lipid 1996 panelon Cholesterol [Mass/Vol] 166 mg/dL <200 mg/dL [facility] Cholesterol in HDL [Mass/Vol] 43 mg/dL >39 mg/dL [facility] Cholesterol in LDL [Mass/Vol] 89 mg/dL <100 mg/dL [facility] Cholesterol in LDL/Cholesterol in HDL [Mass ratio] 2.07 {ratio} <2.54 [facility] Cholesterol in VLDL [Mass/Vol] 34 mg/dL High <30 mg/dL [facility] Cholesterol non HDL [Mass/Vol] 123 mg/dL <130 mg/dL [facility] Cholesterol.total/Choles terol in HDL [Mass ratio] 3.86 {ratio} <5.10 [facility] Fasting Time 6 hrs [facility] Triglyceride [Mass/Vol] 170 mg/dL High <150 mg/dL [facility] T4 FREE/FREE THYROXon 2023 Free T4 [Mass/Vol] 1.6 ng/dL 0.9 - 1.7 ng/dL [facility] TSH BLDon 10-18-2023 TSH Qn 0.309 m[IU]/L 0.270 - 4.200 mIU/L [facility] VITAMIN B12 BLOODon 10-18-19 Cobalamin (Vitamin B12) [Mass/Vol] 262 pg/mL 232 - 1,245 pg/mL [facility] VITAMIN D 25 HYDROXYon 10-18 25-hydroxyvitamin D3 [Mass/Vol] 43.9 ng/mL 31.0 - 80.0 ng/mL [facility] ALBUMIN/CREAT RATIO RND URon 10-17-2023 Albumin DL <= 20 mg/L (U) [Mass/Vol] [facility] Albumin/Creatinine (U) [Mass ratio] <30 mg/g [facility] Creatinine (U) [Mass/Vol] 50.3 mg/dL 20.0 - 300.0 mg/dL [facility] Basophil percentageon 2021 Bilirubin [Mass/Vol] 0.30 mg/dL 0.20-1.00 [facility] Work Phone: Comment on above: For patients on eltr ombopag therapy, use of Dimension Bern TBIL is not recommended. Chloride [Moles/Vol] 107 mmol/L 98-107 [facility] Work Phone: Cholesterol [Mass/Vol] 205 mg/dL <200 [facility] Work Phone: Comment on above: <200 mg/dL Desirable 200-240 mg/dL Borderline >240 mg/dL High Risk Glucose [Mass/Vol] 61 mg/dL 74-106 [facility] Work Phone: [phone] Potassium [Moles/Vol] 4.3 mmol/L 3.5-5.1 [facility] Work Phone: [phone] Protein [Mass/Vol] 6.8 g/dL 6.4-8.2 [facility] Work Phone: [phone] Sodium [Moles/Vol] 141 mmol/L 136-145 [facility] Work Phone: [phone] Triglyceride [Mass/Vol] 131 mg/dL <199 [facility] Work Phone: [phone] Comment on above: The drugs N-Acetylcy steine and Metamizole may falsely depress this assay.Serum Triglycerides Reference Interval Normal <150 mg/dL Borderline high 150 - 199 mg/dL High 200 - 499 mg/dL Very High > or = 500 mg/dL Laboratory - Chemistry and C hemistry - challengeon 09-21-2022 ALP [Catalytic activity/Vol] 92 U/L 45-117 [facility] Work Phone: ALT [Catalytic activity/Vol] 21 U/L 13-56 [facility] Work Phone: [phone] CO2 [Moles/Vol] 28.0 mmol/L 21.0-32.0 [facility] Work Phone: [phone] Globulin (S) [Mass/Vol] 3.5 g/dL 2.2-4.2 [facility] Work Phone: [phone] Urea nitrogen/Creatinine [Mass ratio] 20.8 mg/mg 10-20 [facility] Work Phone: No Panel Informationon 09-21 Estimated GFR (MDRD) Amer 82 mL/min >60 [facility] Work Phone: Comment on above: GFR Calc Estimated GFR (MDRD) Non-Af Amer 68 mL/min >60 [facility] Work Phone: [phone] Comment on above: Non- GFR Calc Serum or plasma albumin sage urement (mass/volume)on 09-21-2022 Albumin [Mass/Vol] 3.3 g/dL 3.2-5.0 [facility] Work Phone: Serum or plasma albumin/glob ulin mass ratioon 09-21-2022 Albumin/Globulin [Mass ratio] 0.9 {ratio} 0.9-2.4 [facility] Work Phone: Serum or plasma calcium sage urement (mass/volume)on 09-21-2022 Calcium [Mass/Vol] 9.1 mg/dL 8.5-10.1 [facility] Work Phone: Serum or plasma cholesterol in HDL measurement (mass/volume)on 09-21-2022 Cholesterol in HDL [Mass/Vol] 59 mg/dL >40 [facility] Work Phone: Comment on above: The drugs N-Acetylcy steine and Metamizole may falsely depress this assay. Reference Range HDL <40 mg/dL Low HDL Cholesterol HDL >or= 60 mg/dL High HDL Cholesterol Serum or plasma cholesterol in VLDL measurement (mass/volume)on 09-21-2022 Cholesterol in VLDL [Mass/Vol] 26 mg/dL 5-40 [facility] Work Phone: [phone] Serum or plasma creatinine m easurement (mass/volume)on 09-21-2022 Creatinine [Mass/Vol] 0.87 mg/dL 0.55-1.02 [facility] Work Phone: Comment on above: The validity of the calculated GFR & GFRAA in patients over 70 years has not been determined. Clinical correlation is essential. Serum or plasma low density lipoprotein (LDL) cholesterol measurement (mass/volume)on 09-21-2022 Cholesterol in LDL [Mass/Vol] 120 mg/dL 0-130 [facility] Work Phone: [phone] Serum or plasma urea nitroge n measurement (mass/volume)on 09-21-2022 Urea nitrogen [Mass/Vol] 18 mg/dL 7-18 [facility] Work Phone: [phone] Thin prep Papanicolaou smear with manual screeningon 09-21-2022 Thin prep Papanicolaou smear with manual screening 13 U/L 15-37 [facility] Work Phone: Thin prep Papanicolaou smear with manual screening 6 5-15 [facility] Work Phone: Basophil percentageon 2021 Bilirubin [Mass/Vol] 0.30 mg/dL 0.20-1.00 [facility] Work Phone: [phone] Comment on above: For patients on eltr ombopag therapy, use of Dimension Bern TBIL is not recommended. Chloride [Moles/Vol] 103 mmol/L 98-107 [facility] Work Phone: Glucose [Mass/Vol] 127 mg/dL 74-106 [facility] Work Phone: [phone] Comment on above: Fasting Glucose resu lt greater than or equal to 126 mg/dL suggests DIABETES MELLITUS per A.D.A. criteria. Potassium [Moles/Vol] 3.7 mmol/L 3.5-5.1 [facility] Work Phone: Protein [Mass/Vol] 5.8 g/dL 6.4-8.2 [facility] Work Phone: [phone] Sodium [Moles/Vol] 135 mmol/L 136-145 [facility] Work Phone: [phone] WBC (Bld) [#/Vol] 13.3 10*3/uL 4.4-11.0 [facility] Work Phone: [phone] Blood erythrocytes count (nu mber/volume)on 06-08-2022 RBC (Bld) [#/Vol] 4.14 10*6/uL 4.2-5.4 [facility] Work Phone: [phone] Blood hemoglobin measurement (mass/volume)on 06-08-2022 Hemoglobin (Bld) [Mass/Vol] 11.0 g/dL 12.0-15.0 [facility] Work Phone: Blood platelet mean volumeon 06-08-2022 Platelet mean volume (Bld) [Entitic vol] 10.9 fL 6.2-12.0 [facility] Work Phone: [phone] Determination of erythrocyte mean corpuscular volume (MCV)on 06-08-2022 MCV (RBC) [Entitic vol] 83.6 fL 81-99 [facility] Work Phone: [phone] Glucose Glucometer (BldC) [M ass/Vol]on 06-08-2022 Glucose [Mass/Vol] 193 mg/dL 74-106 [facility] Work Phone: [phone] Comment on above: MANAGEMENT OF PATIEN T CARE PER NURSING PROTOCOL Hematocrit Auto (Bld) [Volum e fraction]on 06-08-2022 Hematocrit (Bld) [Volume fraction] 34.6 % 37-47 [facility] Work Phone: Laboratory - Chemistry and C hemistry - challengeon 06-08-2022 ALP [Catalytic activity/Vol] 69 U/L 45-117 [facility] Work Phone: ALT [Catalytic activity/Vol] 15 U/L 13-56 [facility] Work Phone: [phone] CO2 [Moles/Vol] 26.0 mmol/L 21.0-32.0 [facility] Work Phone: Globulin (S) [Mass/Vol] 3.2 g/dL 2.2-4.2 [facility] Work Phone: [phone] Urea nitrogen/Creatinine [Mass ratio] 20.8 mg/mg 10-20 [facility] Work Phone: [phone] Laboratory - Hematology and Cell countson 06-08-2022 Erythrocyte distribution width (RBC) [Entitic vol] 49.9 fL 35.1-43.9 [facility] Work Phone: [phone] Erythrocyte distribution width (RBC) [Ratio] 16.4 % 11.6-14.6 [facility] Work Phone: [phone] MCH (RBC) [Entitic mass] 26.6 pg 27.0-32.0 [facility] Work Phone: [phone] MCHC Auto (RBC) [Mass/Vol]on 06-08-2022 MCHC (RBC) [Mass/Vol] 31.8 g/dL 32-36 [facility] Work Phone: No Panel Informationon 06-08 Estimated Creatinine Clearance Calc 60.11 ml/min [facility] Work Phone: Estimated GFR (MDRD) Amer 94 mL/min >60 [facility] Work Phone: Comment on above: GFR Calc Estimated GFR (MDRD) Non-Af Amer 78 mL/min >60 [facility] Work Phone: Comment on above: Non- GFR Calc Platelets bldon 06-08-2022 Platelets (Bld) [#/Vol] 245 10*3/uL 150-450 [facility] Work Phone: Serum or plasma albumin sage urement (mass/volume)on 06-08-2022 Albumin [Mass/Vol] 2.6 g/dL 3.2-5.0 [facility] Work Phone: Serum or plasma albumin/glob ulin mass ratioon 06-08-2022 Albumin/Globulin [Mass ratio] 0.8 {ratio} 0.9-2.4 [facility] Work Phone: [phone] Serum or plasma calcium sage urement (mass/volume)on 06-08-2022 Calcium [Mass/Vol] 8.1 mg/dL 8.5-10.1 [facility] Work Phone: [phone] Serum or plasma creatinine m easurement (mass/volume)on 06-08-2022 Creatinine [Mass/Vol] 0.77 mg/dL 0.55-1.02 [facility] Work Phone: Comment on above: The validity of the calculated GFR & GFRAA in patients over 70 years has not been determined. Clinical correlation is essential. Serum or plasma urea nitroge n measurement (mass/volume)on 06-08-2022 Urea nitrogen [Mass/Vol] 16 mg/dL 7-18 [facility] Work Phone: Thin prep Papanicolaou smear with manual screeningon 06-08-2022 Thin prep Papanicolaou smear with manual screening 15 U/L 15-37 [facility] Work Phone: Thin prep Papanicolaou smear with manual screening 6 5-15 [facility] Work Phone: Absolute lymphocyte counton 05-31-2022 Lymphocytes Auto (Unsp spec) [#/Vol] 1.96 10*3/uL 0.83-4.51 [facility] Work Phone: Basophil percentageon 2021 Basophils/100 WBC (Bld) 1.0 % 0-1 [facility] Work Phone: Eosinophils/100 WBC (Bld) 7.4 % 0-5 [facility] Work Phone: Neutrophils (Bld) [#/Vol] 5.3 10*3/uL 2.0-7.7 [facility] Work Phone: Neutrophils/100 WBC (Bld) 61.3 % 47-70 [facility] Work Phone: Blood lymphocytes/100 leukoc yteson 05-31-2022 Lymphocytes/100 WBC (Bld) 22.7 % 19-41 [facility] Work Phone: Blood monocytes/100 leukocyt eson 05-31-2022 Monocytes/100 WBC (Bld) 7.3 % 0-10 [facility] Work Phone: Laboratory - Chemistry and C hemistry - challengeon 05-31-2022 Magnesium [Mass/Vol] 2.1 mg/dL 1.6-2.6 [facility] Work Phone: Laboratory - Hematology and Cell countson 05-31-2022 Immature granulocytes/100 WBC (Bld) 0.300 % 0.0-0.9 [facility] Work Phone: Comment on above: IG% - Immature Granu locytes (promyelocytes, myelocytes and metamyelocytes) > 1% indicates that a LEFT SHIFT is Present. Nucleated RBC/100 WBC (Bld) [Ratio] 0 % 0-5 [facility] Work Phone: No Panel Informationon 05-31 Thyroid Stimulating Hormone (TSH) 0.47 uIU/mL 0.358-3.74 [facility] Work Phone: Whole blood hemoglobin A1c/t otal hemoglobin ratio (mass fraction)on 05-23-2022 HbA1c (Bld) [Mass fraction] 6.6 % 3.8-5.6 [facility] Work Phone: Comment on above: Normal < 5.7 % Predi abetic 5.7 - 6.4 % Diabetic >or= 6.5 % Please note range changes. Whole blood hemoglobin A1c/t otal hemoglobin ratio (mass fraction)on 04-13-2022 HbA1c (Bld) [Mass fraction] 7.8 % 3.8-5.6 [facility] Work Phone: Comment on above: Normal < 5.7 % Predi abetic 5.7 - 6.4 % Diabetic >or= 6.5 % Please note range changes. Absolute lymphocyte counton 04-06-2022 Lymphocytes Auto (Unsp spec) [#/Vol] 1.80 10*3/uL 0.83-4.51 [facility] Work Phone: Basophil percentageon 2021 Basophils/100 WBC (Bld) 1.0 % 0-1 [facility] Work Phone: Chloride [Moles/Vol] 101 mmol/L 98-107 [facility] Work [facility]: Eosinophils/100 WBC (Bld) 3.9 % 0-5 [facility] Work Phone: Glucose [Mass/Vol] 118 mg/dL 74-106 [facility] Work Phone: Comment on above: Fasting Glucose resu lt from 100 to 125 mg/dL suggests IMPAIRED HOMEOSTASIS per A.D.A. criteria. Neutrophils (Bld) [#/Vol] 6.7 10*3/uL 2.0-7.7 [facility] Work Phone: Neutrophils/100 WBC (Bld) 68.9 % 47-70 [facility] Work Phone: Potassium [Moles/Vol] 3.7 mmol/L 3.5-5.1 [facility] Work Phone: Sodium [Moles/Vol] 136 mmol/L 136-145 [facility] Work Phone: WBC (Bld) [#/Vol] 9.8 10*3/uL 4.4-11.0 [facility] Work Phone: Blood erythrocytes count (nu mber/volume)on 04-06-2022 RBC (Bld) [#/Vol] 5.21 10*6/uL 4.2-5.4 [facility] Work Phone: Blood hemoglobin measurement (mass/volume)on 04-06-2022 Hemoglobin (Bld) [Mass/Vol] 13.6 g/dL 12.0-15.0 [facility] Work Phone: [phone] Blood lymphocytes/100 leukoc yteson 04-06-2022 Lymphocytes/100 WBC (Bld) 18.4 % 19-41 [facility] Work Phone: Blood monocytes/100 leukocyt eson 04-06-2022 Monocytes/100 WBC (Bld) 7.4 % 0-10 [facility] Work Phone: Blood platelet mean volumeon 04-06-2022 Platelet mean volume (Bld) [Entitic vol] 11.6 fL 6.2-12.0 [facility] Work Phone: Determination of erythrocyte mean corpuscular volume (MCV)on 04-06-2022 MCV (RBC) [Entitic vol] 83.5 fL 81-99 [facility] Work Phone: Hematocrit Auto (Bld) [Volum e fraction]on 04-06-2022 Hematocrit (Bld) [Volume fraction] 43.5 % 37-47 [facility] Work Phone: Laboratory - Chemistry and C hemistry - challengeon 04-06-2022 CO2 [Moles/Vol] 28.0 mmol/L 21.0-32.0 [facility] Work Phone: [phone] Urea nitrogen/Creatinine [Mass ratio] 18.8 mg/mg 10-20 [facility] Work Phone: [phone] Laboratory - Hematology and Cell countson 04-06-2022 Erythrocyte distribution width (RBC) [Entitic vol] 47.8 fL 35.1-43.9 [facility] Work Phone: [phone] Erythrocyte distribution width (RBC) [Ratio] 15.9 % 11.6-14.6 [facility] Work Phone: [phone] Immature granulocytes/100 WBC (Bld) 0.400 % 0.0-0.9 [facility] Work Phone: [phone] Comment on above: IG% - Immature Granu locytes (promyelocytes, myelocytes and metamyelocytes) > 1% indicates that a LEFT SHIFT is Present. MCH (RBC) [Entitic mass] 26.1 pg 27.0-32.0 [facility] Work Phone: [phone] Nucleated RBC/100 WBC (Bld) [Ratio] 0 % 0-5 [facility] Work Phone: [phone] MCHC Auto (RBC) [Mass/Vol]on 04-06-2022 MCHC (RBC) [Mass/Vol] 31.3 g/dL 32-36 [facility] Work Phone: No Panel Informationon 04-06 Estimated GFR (MDRD) Amer 91 mL/min >60 [facility] Work Phone: [phone] Comment on above: GFR Calc Estimated GFR (MDRD) Non-Af Amer 75 mL/min >60 [facility] Work Phone: [phone] Comment on above: Non- GFR Calc Platelets bldon 04-06-2022 Platelets (Bld) [#/Vol] 345 10*3/uL 150-450 [facility] Work Phone: [phone] Serum or plasma albumin sage urement (mass/volume)on 04-06-2022 Albumin [Mass/Vol] 3.7 g/dL 3.2-5.0 [facility] Work Phone: Serum or plasma calcium sage urement (mass/volume)on 04-06-2022 Calcium [Mass/Vol] 9.5 mg/dL 8.5-10.1 [facility] Work Phone: Serum or plasma creatinine m easurement (mass/volume)on 04-06-2022 Creatinine [Mass/Vol] 0.80 mg/dL 0.55-1.02 [facility] Work Phone: Comment on above: The validity of the calculated GFR & GFRAA in patients over 70 years has not been determined. Clinical correlation is essential. Serum or plasma urea nitroge n measurement (mass/volume)on 04-06-2022 Urea nitrogen [Mass/Vol] 15 mg/dL 7- [facility] Work Phone: Thin prep Papanicolaou smear with manual screeningon 04-06-2022 Thin prep Papanicolaou smear with manual screening 7 02-05 [facility] Work Phone: Absolute lymphocyte counton 02-08-2022 Lymphocytes Auto (Unsp spec) [#/Vol] 2.17 10*3/uL 0.83-4.51 [facility] Work Phone: Basophil percentageon 2021 Basophils/100 WBC (Bld) 0.9 % 0-1 [facility] Work Phone: Chloride [Moles/Vol] 103 mmol/L 98-107 [facility] Work Phone: Eosinophils/100 WBC (Bld) 6.2 % 0-5 [facility] Work Phone: Glucose [Mass/Vol] 430 mg/dL 74-106 [facility] Work Phone: Comment on above: Glucose result great er than or equal to 200 mg/dLsuggests DIABETES MELLITUS per A.D.A. criteria. Neutrophils (Bld) [#/Vol] 5.9 10*3/uL 2.0-7.7 [facility] Work Phone: Neutrophils/100 WBC (Bld) 62.5 % 47-70 [facility] Work Phone: [phone] Potassium [Moles/Vol] 3.6 mmol/L 3.5-5.1 [facility] Work Phone: [phone] Sodium [Moles/Vol] 136 mmol/L 136-145 [facility] Work Phone: [phone] WBC (Bld) [#/Vol] 9.5 10*3/uL 4.4-11.0 [facility] Work Phone: [phone] Blood erythrocytes count (nu mber/volume)on 02-08-2022 RBC (Bld) [#/Vol] 5.21 10*6/uL 4.2-5.4 [facility] Work [facility]: [phone] Blood hemoglobin measurement (mass/volume)on 02-08-2022 Hemoglobin (Bld) [Mass/Vol] 13.5 g/dL 12.0-15.0 [facility] Work Phone: [phone] Blood lymphocytes/100 leukoc yteson 02-08-2022 Lymphocytes/100 WBC (Bld) 22.9 % 19-41 [facility] Work Phone: [phone] Blood monocytes/100 leukocyt eson 02-08-2022 Monocytes/100 WBC (Bld) 7.2 % 0-10 [facility] Work Phone: [phone] Blood platelet mean volumeon 02-08-2022 Platelet mean volume (Bld) [Entitic vol] 11.1 fL 6.2-12.0 [facility] Work Phone: [phone] Determination of erythrocyte mean corpuscular volume (MCV)on 02-08-2022 MCV (RBC) [Entitic vol] 82.7 fL 81-99 [facility] Work Phone: Hematocrit Auto (Bld) [Volum e fraction]on 02-08-2022 Hematocrit (Bld) [Volume fraction] 43.1 % 37-47 [facility] Work Phone: [phone] Laboratory - Chemistry and C hemistry - challengeon 02-08-2022 CO2 [Moles/Vol] 27.0 mmol/L 21.0-32.0 [facility] Work Phone: [phone] Magnesium [Mass/Vol] 2.5 mg/dL 1.6-2.6 [facility] Work Phone: [phone] Urea nitrogen/Creatinine [Mass ratio] 16.4 mg/mg 10-20 [facility] Work Phone: [phone] Laboratory - Hematology and Cell countson 02-08-2022 Erythrocyte distribution width (RBC) [Entitic vol] 50.5 fL 35.1-43.9 [facility] Work Phone: [phone] Erythrocyte distribution width (RBC) [Ratio] 16.9 % 11.6-14.6 [facility] Work Phone: [phone] Immature granulocytes/100 WBC (Bld) 0.300 % 0.0-0.9 [facility] Work Phone: [phone] Comment on above: IG% - Immature Granu locytes (promyelocytes, myelocytes and metamyelocytes) > 1% indicates that a LEFT SHIFT is Present. MCH (RBC) [Entitic mass] 25.9 pg 27.0-32.0 [facility] Work Phone: [phone] Nucleated RBC/100 WBC (Bld) [Ratio] 0 % 0-5 [facility] Work Phone: [phone] MCHC Auto (RBC) [Mass/Vol]on 02-08-2022 MCHC (RBC) [Mass/Vol] 31.3 g/dL 32-36 [facility] Work Phone: [phone] Panel Informationon 02-08 Estimated GFR (MDRD) Amer 59 mL/min >60 [facility] Work Phone: [phone] Comment on above: GFR Calc Estimated GFR (MDRD) Non-Af Amer 49 mL/min >60 [facility] Work Phone: [phone] Comment on above: Non- GFR Calc Thyroid Stimulating Hormone (TSH) 0.39 uIU/mL 0.358-3.74 [facility] Work Phone: [phone] Platelets bldon 02-08-2022 Platelets (Bld) [#/Vol] 346 10*3/uL 150-450 [facility] Work Phone: Serum or plasma albumin sage urement (mass/volume)on 02-08-2022 Albumin [Mass/Vol] 3.4 g/dL 3.2-5.0 [facility] Work Phone: [phone] Serum or plasma calcium sage urement (mass/volume)on 02-08-2022 Calcium [Mass/Vol] 9.2 mg/dL 8.5-10.1 [facility] Work Phone: [phone] Serum or plasma creatinine m easurement (mass/volume)on 02-08-2022 Creatinine [Mass/Vol] 1.16 mg/dL 0.55-1.02 [facility] Work Phone: Comment on above: The validity of the calculated GFR & GFRAA in patients over 70 years has not been determined. Clinical correlation is essential. Serum or plasma urea nitroge n measurement (mass/volume)on 02-08-2022 Urea nitrogen [Mass/Vol] 19 mg/dL 7-18 [facility] Work Phone: Thin prep Papanicolaou smear with manual screeningon 02-08-2022 Thin prep Papanicolaou smear with manual screening 6 5-15 [facility] Work Phone: Whole blood hemoglobin A1c/t otal hemoglobin ratio (mass fraction)on 02-08-2022 HbA1c (Bld) [Mass fraction] 11.7 % 3.8-5.6 [facility] Work Phone: Comment on above: Normal < 5.7 % Predi abetic 5.7 - 6.4 % Diabetic >or= 6.5 % Please note range changes. Basophil percentageon 2021 Chloride [Moles/Vol] 106 mmol/L 98-107 [facility] Work Phone: [phone] Cholesterol [Mass/Vol] 168 mg/dL <200 [facility] Work Phone: [phone] Comment on above: <200 mg/dL Desirable 200-240 mg/dL Borderline >240 mg/dL High Risk Glucose [Mass/Vol] 196 mg/dL 74-106 [facility] Work Phone: Comment on above: Fasting Glucose resu lt greater than or equal to 126 mg/dL suggests DIABETES MELLITUS per A.D.A. criteria. Potassium [Moles/Vol] 3.9 mmol/L 3.5-5.1 [facility] Work Phone: [phone] Sodium [Moles/Vol] 139 mmol/L 136-145 [facility] Work Phone: [phone] Triglyceride [Mass/Vol] 139 mg/dL [facility] Work Phone: Comment on above: The drugs N-Acetylcy steine and Metamizole may falsely depress this assay.Serum Triglycerides Reference Interval Normal <150 mg/dL Borderline high 150 - 199 mg/dL High 200 - 499 mg/dL Very High > or = 500 mg/dL Laboratory - Chemistry and C hemistry - challengeon 11-24-2021 CO2 [Moles/Vol] 28.0 mmol/L 21.0-32.0 [facility] Work Phone: Urea nitrogen/Creatinine [Mass ratio] 11.5 mg/mg 10-20 [facility] Work Phone: No Panel Informationon 11-24 Estimated GFR (MDRD) Amer 82 mL/min >60 [facility] Work Phone: Comment on above: GFR Calc Estimated GFR (MDRD) Non-Af Amer 68 mL/min >60 [facility] Work Phone: Comment on above: Non- GFR Calc Thyroid Stimulating Hormone (TSH) 0.14 uIU/mL 0.358-3.74 [facility] Work Phone: [phone] Serum or plasma calcium sage urement (mass/volume)on 11-24-2021 Calcium [Mass/Vol] 9.6 mg/dL 8.5-10.1 [facility] Work Phone: [phone] Serum or plasma cholesterol in HDL measurement (mass/volume)on 11-24-2021 Cholesterol in HDL [Mass/Vol] 43 mg/dL [facility] Work Phone: Comment on above: The drugs N-Acetylcy steine and Metamizole may falsely depress this assay. Reference Range HDL <40 mg/dL Low HDL Cholesterol HDL >or= 60 mg/dL High HDL Cholesterol Serum or plasma cholesterol in VLDL measurement (mass/volume)on 11-24-2021 Cholesterol in VLDL [Mass/Vol] 28 mg/dL 5-40 [facility] Work Phone: Serum or plasma creatinine m easurement (mass/volume)on 11-24-2021 Creatinine [Mass/Vol] 0.87 mg/dL 0.55-1.02 [facility] Work Phone: Comment on above: The validity of the calculated GFR & GFRAA in patients over 70 years has not been determined. Clinical correlation is essential. Serum or plasma low density lipoprotein (LDL) cholesterol measurement (mass/volume)on 11-24-2021 Cholesterol in LDL [Mass/Vol] 97 mg/dL 0-130 [facility] Work Phone: [phone] Serum or plasma urea nitroge n measurement (mass/volume)on 11-24-2021 Urea nitrogen [Mass/Vol] 10 mg/dL 7-18 [facility] Work Phone: Thin prep Papanicolaou smear with manual screeningon 11-24-2021 Thin prep Papanicolaou smear with manual screening 5 5-15 [facility] Work Phone: Absolute lymphocyte counton 10-12-2021 Lymphocytes Auto (Unsp spec) [#/Vol] 2.49 10*3/uL 0.83-4.51 [facility] Work Phone: Basophil percentageon 2021 Basophils/100 WBC (Bld) 0.7 % 0-1 [facility] Work Phone: Eosinophils/100 WBC (Bld) 3.3 % 0-5 [facility] Work Phone: [phone] Neutrophils (Bld) [#/Vol] 5.9 10*3/uL 2.0-7.7 [facility] Work Phone: Neutrophils/100 WBC (Bld) 61.9 % 47-70 [facility] Work Phone: WBC (Bld) [#/Vol] 9.5 10*3/uL 4.4-11.0 [facility]: Blood erythrocytes count (nu mber/volume)on 10-12-2021 RBC (Bld) [#/Vol] 4.42 10*6/uL 4.2-5.4 [facility] Work Phone: Blood hemoglobin measurement (mass/volume)on 10-12-2021 Hemoglobin (Bld) [Mass/Vol] 9.5 g/dL 12.0-15.0 [facility] Work Phone: Blood lymphocytes/100 leukoc yteson 10-12-2021 Lymphocytes/100 WBC (Bld) 26.2 % 19-41 [facility] Work Phone: Blood monocytes/100 leukocyt eson 10-12-2021 Monocytes/100 WBC (Bld) 7.6 % 0-10 [facility] Work Phone: Blood platelet mean volumeon 10-12-2021 Platelet mean volume (Bld) [Entitic vol] 10.6 fL 6.2-12.0 [facility] Work Phone: Determination of erythrocyte mean corpuscular volume (MCV)on 10-12-2021 MCV (RBC) [Entitic vol] 74.4 fL 81-99 [facility] Work Phone: Hematocrit Auto (Bld) [Volum e fraction]on 10-12-2021 Hematocrit (Bld) [Volume fraction] 32.9 % 37-47 [facility] Work Phone: Iron measurement (mass/mass) on 10-12-2021 Iron (Unsp spec) [Mass/Mass] 21 ug/dL 50-170 [facility] Work Phone: Laboratory - Hematology and Cell countson 10-12-2021 Erythrocyte distribution width (RBC) [Entitic vol] 48.8 fL 35.1-43.9 [facility] Work Phone: [phone] Erythrocyte distribution width (RBC) [Ratio] 18.1 % 11.6-14.6 [facility] Work Phone: [phone] Immature granulocytes/100 WBC (Bld) 0.300 % 0.0-0.9 [facility] Work Phone: [phone] Comment on above: IG% - Immature Granu locytes (promyelocytes, myelocytes and metamyelocytes) > 1% indicates that a LEFT SHIFT is Present. MCH (RBC) [Entitic mass] 21.5 pg 27.0-32.0 [facility] Work Phone: [phone] Nucleated RBC/100 WBC (Bld) [Ratio] 0 % 0-5 [facility] Work Phone: [phone] MCHC Auto (RBC) [Mass/Vol]on 10-12-2021 MCHC (RBC) [Mass/Vol] 28.9 g/dL 32-36 [facility] Work Phone: [phone] Panel Informationon 10-12 Total Iron Binding Capacity 418 ug/dL 250-450 [facility] Work Phone: [phone] Platelets bldon 10-12-2021 Platelets (Bld) [#/Vol] 358 10*3/uL 150-450 [facility] Work Phone: [phone] Serum or plasma ferritin veronique surement (mass/volume)on 10-12-2021 Ferritin [Mass/Vol] 12 ng/mL 8-252 [facility] Work Phone: [phone] Serum or plasma iron saturat ion measurement (mass fraction)on 10-12-2021 Iron saturation [Mass fraction] 5.0 % 15.0-55.0 [facility] Work Phone: [phone] Basophil percentageon 2021 Creatinine [Mass/Vol] 0.8 mg/dL 0.55-1.02 [facility] Work Phone: [phone] Panel Informationon 09-29 Bedside Estimated GFR (eGFR) > 60.0000 mL/min >60 [facility] Work Phone: Basophil percentageon 2020 WBC (Bld) [#/Vol] 7.9 10*3/uL 4.4-11.0 [facility] Work Phone: Blood erythrocytes count (nu mber/volume)on 09-06-2021 RBC (Bld) [#/Vol] 4.03 10*6/uL 4.2-5.4 [facility] Work Phone: Blood hemoglobin measurement (mass/volume)on 09-06-2021 Hemoglobin (Bld) [Mass/Vol] 9.0 g/dL 12.0-15.0 [facility] Work Phone: Blood platelet mean volumeon 09-06-2021 Platelet mean volume (Bld) [Entitic vol] 10.5 fL 6.2-12.0 [facility] Work Phone: Determination of erythrocyte mean corpuscular volume (MCV)on 09-06-2021 MCV (RBC) [Entitic vol] 75.9 fL 81-99 [facility] Work Phone: Hematocrit Auto (Bld) [Volum e fraction]on 09-06-2021 Hematocrit (Bld) [Volume fraction] 30.6 % 37-47 [facility] Work Phone: Laboratory - Hematology and Cell countson 09-06-2021 Erythrocyte distribution width (RBC) [Entitic vol] 51.5 fL 35.1-43.9 [facility] Work Phone: [phone] Erythrocyte distribution width (RBC) [Ratio] 18.6 % 11.6-14.6 [facility] Work Phone: MCH (RBC) [Entitic mass] 22.3 pg 27.0-32.0 [facility] Work Phone: [phone] MCHC Auto (RBC) [Mass/Vol]on 09-06-2021 MCHC (RBC) [Mass/Vol] 29.4 g/dL 32-36 [facility] Work Phone: Platelets bldon 09-06-2021 Platelets (Bld) [#/Vol] 354 10*3/uL 150-450 [facility] Work Phone: No Panel Information Nasal Screen MRSA/MSSA [facility] Work Phone: Vital Signs Date Time Vital Sign Value Performing Clinician Facility 02-18-2025 22:26-0400 Body temperature 98 [degF] Dr. Aashish Bahena MD Work Phone: [phone] [place] [address] 02-18-2025 22:26-0400 Diastolic blood pressure 60 mm[Hg] Dr. Aashish Bahena MD Work Phone: [phone] [place] [address] 02-18-2025 22:26-0400 Heart rate 77 /min Dr. Aashish Bahena MD Work Phone: [phone] [place] [address] 02-18-2025 22:26-0400 Respiratory rate 20 /min Dr. Aashish Bahena MD Work Phone: [phone] [place] [address] 02-18-2025 22:26-0400 SaO2% (BldA) [Mass fraction] 96 % Dr. Aashish Bahena MD Work Phone: [phone] [place] [address] 02-18-2025 22:26-0400 Systolic blood pressure 137 mm[Hg] Dr. Aashish Bahena MD Work Phone: [phone] [place] [address] 02-18-2025 15:31-0400 Body height 154.[address] Aashish Bahena MD Work Phone: [phone] [place] [address] 02-18-2025 15:31-0400 Body mass index (BMI) [Ratio] 33 kg/m2 Dr. Aashish Bahena MD Work Phone: [phone] [place] [address] 02-18-2025 15:31-0400 Body weight 79.[address] Aashish Bahena MD Work Phone: [phone] [place] [address] 02-18-2025 14:22-0400 Body mass index (BMI) [Ratio] 33.24 kg/m2 Rakesh Lopez MD Work Phone: [facility] 02-18-2025 14:22-0400 Body temperature 98.29 [degF] Rakesh Lopez MD Work Phone: [facility] 02-18-2025 14:22-0400 Body weight 79.8 kg Rakesh Lopez MD Work Phone: [facility] 02-18-2025 14:22-0400 Diastolic blood pressure 70 mm[Hg] Rakesh Lopez MD Work Phone: [facility] 02-18-2025 14:22-0400 Heart rate 77 /min Rakesh Lopez MD Work Phone: [facility] 02-18-2025 14:22-0400 Respiratory rate 18 /min Rakesh Lopez MD Work Phone: [facility] 02-18-2025 14:22-0400 SaO2% (BldA) [Mass fraction] 97 % Rakesh Lopez MD Work Phone: [facility] 02-18-2025 14:22-0400 Systolic blood pressure 143 mm[Hg] Rakesh Lopez MD Work Phone: [facility] 02-18-2025 13:50-0400 Body mass index (BMI) [Ratio] 34.1 kg/m2 Dr. Aashish Bahena MD Work Phone: [facility] 02-18-2025 13:50-0400 Body temperature 96.5 [degF] Dr. Aashish Bahena MD Work Phone: [facility] 02-18-2025 13:50-0400 Diastolic blood pressure 71 mm[Hg] Dr. Aashish Bahena MD Work Phone: [facility] 02-18-2025 13:50-0400 Heart rate 76 /min Dr. Aashish Bahena MD Work Phone: [facility] 02-18-2025 13:50-0400 Respiratory rate 18 /min Dr. Aashish Bahena MD Work Phone: [phone] [place] [address] 02-18-2025 13:50-0400 Systolic blood pressure 146 mm[Hg] Dr. Aashish Bahena MD Work Phone: [phone] [place] [address] 02-04-2025 14:13-0400 Body mass index (BMI) [Ratio] 34.1 kg/m2 Dr. Aashish Bahena MD Work Phone: [phone] [place] [address] 02-04-2025 14:13-0400 Body temperature 96.7 [degF] Dr. Aashish Bahena MD Work Phone: [phone] [place] [address] 02-04-2025 14:13-0400 Respiratory rate 16 /min Dr. Aashish Bahena MD Work Phone: [phone] [place] [address] 02-03-2025 14:02-0400 Body height 154.[address] Aashish Bahena MD Work Phone: [phone] [place] [address] 02-03-2025 14:02-0400 Body mass index (BMI) [Ratio] 32.8 kg/m2 Dr. Aashish Bahena MD Work Phone: [phone] [place] [address] 02-03-2025 14:02-0400 Body temperature 97.8 [degF] Dr. Aashish Bahena MD Work Phone: [phone] [place] [address] 02-03-2025 14:02-0400 Body weight 78.[address] Aashish Bahena MD Work Phone: [phone] [place] [address] 02-03-2025 14:02-0400 Diastolic blood pressure 67 mm[Hg] Dr. Aashish Bahena MD Work Phone: [phone] [place] [address] 02-03-2025 14:02-0400 Heart rate 74 /min Dr. Aashish Bahena MD Work Phone: [phone] [place] [address] 02-03-2025 14:02-0400 Respiratory rate 15 /min Dr. Aashish Bahena MD Work Phone: [phone] [place] [address] 02-03-2025 14:02-0400 SaO2% (BldA) [Mass fraction] 96 % Dr. Aashish Bahena MD Work Phone: [phone] [place] [address] 02-03-2025 14:02-0400 Systolic blood pressure 127 mm[Hg] Dr. Aashish Bahena MD Work Phone: 6(761)600-142504 [place] [address] 01-28-2025 13:37-0400 Body mass index (BMI) [Ratio] 34.1 kg/m2 Dr. Aashish Bahena MD Work Phone: 9(579)685-577604 [place] [address] 01-28-2025 13:37-0400 Body temperature 97.3 [degF] Dr. Aashish Bahena MD Work Phone: 6(522)300-137704 [place] [address] 01-28-2025 13:37-0400 Diastolic blood pressure 70 mm[Hg] Dr. Aashish Bahena MD Work Phone: 8(842)382-978904 [place] [address] 01-28-2025 13:37-0400 Heart rate 75 /min Dr. Aashish Bahena MD Work Phone: 5(923)042-822804 [place] [address] 01-28-2025 13:37-0400 Respiratory rate 16 /min Dr. Aashish Bahena MD Work Phone: 3(269)761-156604 [place] [address] 01-28-2025 13:37-0400 Systolic blood pressure 148 mm[Hg] Dr. Aashish Bahena MD Work Phone: 0(488)300-976104 [place] [address] 01-22-2025 00:36-0400 Body weight 82.[address] Aashish Bahena MD Work Phone: 5(104)617-128304 [place] [address] 01-21-2025 13:45-0400 Body mass index (BMI) [Ratio] 34.1 kg/m2 Dr. Aashish Bahena MD Work Phone: 8(905)658-657104 [place] [address] 01-21-2025 13:45-0400 Body temperature 97.6 [degF] Dr. Aashish Bahena MD Work Phone: 3(307)211-612204 [place] [address] 01-21-2025 13:45-0400 Diastolic blood pressure 64 mm[Hg] Dr. Aashish Bahena MD Work Phone: 8(764)923-516504 [place] [address] 01-21-2025 13:45-0400 Heart rate 68 /min Dr. Aashish Bahena MD Work Phone: 9(847)903-683304 [place] [address] 01-21-2025 13:45-0400 Respiratory rate 18 /min Dr. Aashish Bahena MD Work Phone: 5(782)988-201404 [place] [address] 01-21-2025 13:45-0400 Systolic blood pressure 145 mm[Hg] Dr. Aashish Bahena MD Work Phone: 0(444)061-778404 [place] [address] 12-23-2024 00:45-0400 Body weight 82.[address] Aashish Bahena MD Work Phone: 8(697)211-322504 [place] [address] 12-18-2024 14:35-0400 Body height 154.[address] Aashish Bahena MD Work Phone: 4(231)857-789304 [place] [address] 12-18-2024 14:35-0400 Body mass index (BMI) [Ratio] 32.7 kg/m2 Dr. Aashish Bahena MD Work Phone: 1(967)084-918504 [place] [address] 12-18-2024 14:35-0400 Body temperature 98 [degF] Dr. Aashish Bahena MD Work Phone: 8(213)976-503504 [place] [address] 12-18-2024 14:35-0400 Body weight 78.[address] Aashish Bahena MD Work Phone: 0(391)038-915704 [place] [address] 12-18-2024 14:35-0400 Diastolic blood pressure 70 mm[Hg] Dr. Aashish Bahena MD Work Phone: 1(156)427-658004 [place] [address] 12-18-2024 14:35-0400 Heart rate 55 /min Dr. Aashish Bahena MD Work Phone: 2(488)618-478204 [place] [address] 12-18-2024 14:35-0400 Respiratory rate 17 /min Dr. Aashish Bahena MD Work Phone: 8(845)023-665404 [place] [address] 12-18-2024 14:35-0400 SaO2% (BldA) [Mass fraction] 99 % Dr. Aashish Bahena MD Work Phone: 8(625)347-712004 [place] [address] 12-18-2024 14:35-0400 Systolic blood pressure 134 mm[Hg] Dr. Aashish Bahena MD Work Phone: 0(147)242-368304 [place] [address] 12-16-2024 14:10-0400 Body mass index (BMI) [Ratio] 34.1 kg/m2 Dr. Aashish Bahena MD Work Phone: 4(644)688-215204 [place] [address] 12-16-2024 14:10-0400 Body temperature 97.5 [degF] Dr. Aashish Bahena MD Work Phone: 7(849)190-085904 [place] [address] 12-16-2024 14:10-0400 Diastolic blood pressure 62 mm[Hg] Dr. Aashish Bahena MD Work Phone: 3(510)299-006704 [place] [address] 12-16-2024 14:10-0400 Heart rate 76 /min Dr. Aashish Bahena MD Work Phone: 2(850)382-708504 [place] [address] 12-16-2024 14:10-0400 Respiratory rate 18 /min Dr. Aashish Bahena MD Work Phone: 2(148)267-023204 [place] [address] 12-16-2024 14:10-0400 Systolic blood pressure 128 mm[Hg] Dr. Aashish Bahena MD Work Phone: 6(490)916-144904 [place] [address] 11-22-2024 01:09-0500 Body weight 82.[address] Aashish Bahena MD Work Phone: 2(037)919-921704 [place] [address] 11-18-2024 14:32-0500 Body mass index (BMI) [Ratio] 34.1 kg/m2 Dr. Aashish Bahena MD Work Phone: 0(599)254-643404 [place] [address] 11-18-2024 14:32-0500 Body temperature 96.9 [degF] Dr. Aashish Bahena MD Work Phone: 3(678)889-063304 [place] [address] 11-18-2024 14:32-0500 Diastolic blood pressure 85 mm[Hg] Dr. Aashish Bahena MD Work Phone: 6(280)659-822404 [place] [address] 11-18-2024 14:32-0500 Heart rate 70 /min Dr. Aashish Bahena MD Work Phone: 1(190)089-225004 [place] [address] 11-18-2024 14:32-0500 Respiratory rate 16 /min Dr. Aashish Bahena MD Work Phone: 7(700)153-510104 [place] [address] 11-18-2024 14:32-0500 Systolic blood pressure 117 mm[Hg] Dr. Aashish Bahena MD Work Phone: 3(255)105-452504 [place] [address] 10-25-2024 01:51-0500 Body weight 82.[address] Aashish Bahena MD Work Phone: 5(901)709-470604 [place] [address] 10-21-2024 13:49-0500 Body mass index (BMI) [Ratio] 34.1 kg/m2 Dr. Aashish Bahena MD Work Phone: 2(105)838-533304 [place] [address] 10-21-2024 13:49-0500 Body temperature 97.5 [degF] Dr. Aashish Bahena MD Work Phone: 9(107)553-442504 [place] [address] 10-21-2024 13:49-0500 Diastolic blood pressure 77 mm[Hg] Dr. Aashish Bahena MD Work Phone: 1(282)823-310304 [place] [address] 10-21-2024 13:49-0500 Heart rate 77 /min Dr. Aashish Bahena MD Work Phone: 3(421)501-170704 [place] [address] 10-21-2024 13:49-0500 Respiratory rate 16 /min Dr. Aashish Bahena MD Work Phone: 4(726)974-439004 [place] [address] 10-21-2024 13:49-0500 Systolic blood pressure 140 mm[Hg] Dr. Aashish Bahena MD Work Phone: 6(561)657-682104 [place] [address] 10-17-2024 10:16-0500 Body mass index (BMI) [Ratio] 32.91 kg/m2 Aashish Bahena MD Work Phone: [facility] 10-17-2024 10:16-0500 Body temperature 97.39 [degF] Aashish Bahena MD Work Phone: [facility] 10-17-2024 10:16-0500 Body weight 79 kg Aashish Bahena MD Work Phone: [facility] 10-17-2024 10:16-0500 Diastolic blood pressure 60 mm[Hg] Aashish Bahena MD Work Phone: [facility] 10-17-2024 10:16-0500 Heart rate 75 /min Aashish Bahena MD Work Phone: [facility] 10-17-2024 10:16-0500 Respiratory rate 16 /min Aashish Bahena MD Work Phone: [facility] 10-17-2024 10:16-0500 SaO2% (BldA) [Mass fraction] 99 % Aashish Bahena MD Work Phone: [facility] 10-17-2024 10:16-0500 Systolic blood pressure 112 mm[Hg] Aashish Bahena MD Work Phone: [facility] 10-02-2024 14:14-0500 Diastolic blood pressure 67 mm[Hg] Yuri Brady [employer]TIQUE AUTOMOBILES REPAIRER.SHOE STITCHER Work Phone: [facility] 10-02-2024 14:14-0500 Heart rate 69 /min Yuri Brady ANTIQUE AUTOMOBILES REPAIRER.SHOE STITCHER Work Phone: [facility] 10-02-2024 14:14-0500 Systolic blood pressure 153 mm[Hg] Yuri Brady ANTIQUE AUTOMOBILES REPAIRER.SHOE STITCHER Work Phone: [facility] 10-02-2024 14:05-0500 Body mass index (BMI) [Ratio] 33.95 kg/m2 Yuri Brady ANTIQUE AUTOMOBILES REPAIRER.SHOE STITCHER Work Phone: [facility] 10-02-2024 14:05-0500 Body weight 81.5 kg Yuri Brady ANTIQUE AUTOMOBILES REPAIRER.SHOE STITCHER Work Phone: [facility] 10-02-2024 14:05-0500 Respiratory rate 16 /min Yuri Brady ANTIQUE AUTOMOBILES REPAIRER.SHOE STITCHER Work Phone: 6(676)690-733952 [place] [address] 09-26-2024 14:36-0500 Body temperature 98.3 [degF] Dr. Aashish Bahena MD Work Phone: 5(604)289-281404 [place] [address] 09-26-2024 14:36-0500 Diastolic blood pressure 64 mm[Hg] Dr. Aashish Bahena MD Work Phone: 9(137)352-794904 [place] [address] 09-26-2024 14:36-0500 Heart rate 69 /min Dr. Aashish Bahena MD Work Phone: 1(576)028-599104 [place] [address] 09-26-2024 14:36-0500 Respiratory rate 18 /min Dr. Aashish Bahena MD Work Phone: 6(698)834-762504 [place] [address] 09-26-2024 14:36-0500 SaO2% (BldA) [Mass fraction] 98 % Dr. Aashish Bahena MD Work Phone: 3(988)702-631604 [place] [address] 09-26-2024 14:36-0500 Systolic blood pressure 124 mm[Hg] Dr. Aashish Bahena MD Work Phone: 3(512)735-433904 [place] [address] 09-26-2024 06:00-0500 Body mass index (BMI) [Ratio] 34.3 kg/m2 Dr. Aashish Bahena MD Work Phone: 8(884)361-498104 [place] [address] 09-26-2024 06:00-0500 Body weight 82.[address] Aashish Bahena MD Work Phone: 5(505)211-490304 [place] [address] 09-24-2024 00:18-0500 Body weight 82.[address] Aashish Bahena MD Work Phone: 6(972)290-018004 [place] [address] 09-23-2024 10:52-0500 Body mass index (BMI) [Ratio] 34.1 kg/m2 Dr. Aashish Bahena MD Work Phone: 8(632)563-002004 [place] [address] 09-23-2024 10:52-0500 Body temperature 98.5 [degF] Dr. Aashish Bahena MD Work Phone: 0(722)643-586904 [place] [address] 09-23-2024 10:52-0500 Diastolic blood pressure 77 mm[Hg] Dr. Aashish Bahena MD Work Phone: [facility] 09-23-2024 10:52-0500 Heart rate 84 /min Dr. Aashish Bahena MD Work Phone: [facility] 09-23-2024 10:52-0500 Respiratory rate 18 /min Dr. Aashish Bahena MD Work Phone: [facility] 09-23-2024 10:52-0500 Systolic blood pressure 153 mm[Hg] Dr. Aashish Bahena MD Work Phone: [facility] 09-12-2024 10:19-0500 Body height 154.9 cm Urban Horton MD Work Phone: [facility] 09-12-2024 10:19-0500 Body mass index (BMI) [Ratio] 33.25 kg/m2 Urban Horton MD Work Phone: [facility] 09-12-2024 10:19-0500 Body temperature 98.01 [degF] Urban Horton MD Work Phone: [facility] 09-12-2024 10:19-0500 Body weight 79.83 kg Urban Horton MD Work Phone: [facility] 09-12-2024 10:19-0500 Diastolic blood pressure 54 mm[Hg] Urban Horton MD Work Phone: [facility] 09-12-2024 10:19-0500 Heart rate 70 /min Urban Horton MD Work Phone: [facility] 09-12-2024 10:19-0500 Respiratory rate 14 /min Urban Horton MD Work Phone: [facility] 09-12-2024 10:19-0500 SaO2% (BldA) [Mass fraction] 97 % Urban Horton MD Work Phone: [facility] 09-12-2024 10:19-0500 Systolic blood pressure 172 mm[Hg] Urban Horton MD Work Phone: [facility] 08-24-2024 00:30-0500 Body weight 82.[address] Aashish Bahena MD Work Phone: [facility] 08-22-2024 10:51-0500 Body height 154.9 cm Urban Horton MD Work Phone: [facility] 08-22-2024 10:51-0500 Body mass index (BMI) [Ratio] 33.25 kg/m2 Urban Horton MD Work Phone: [facility] 08-22-2024 10:51-0500 Body temperature 97 [degF] Urban Horton MD Work Phone: [facility] 08-22-2024 10:51-0500 Body weight 79.83 kg Urban Horton MD Work Phone: [facility] 08-22-2024 10:51-0500 Diastolic blood pressure 53 mm[Hg] Urban Horton MD Work Phone: [facility] 08-22-2024 10:51-0500 Heart rate 70 /min Urban Horton MD Work Phone: [facility] 08-22-2024 10:51-0500 Respiratory rate 16 /min Urban Horton MD Work Phone: [facility] 08-22-2024 10:51-0500 SaO2% (BldA) [Mass fraction] 97 % Urban Horton MD Work Phone: [facility] 08-22-2024 10:51-0500 Systolic blood pressure 124 mm[Hg] Urban Horton MD Work Phone: [facility] 08-01-2024 10:50-0500 Body temperature 98.01 [degF] Shira Unger APRN.CNP Work Phone: [facility] 08-01-2024 10:50-0500 Diastolic blood pressure 69 mm[Hg] Shira Bittikofer ANTIQUE AUTOMOBILES REPAIRER.OPENING MACHINE CLEANER Work Phone: [facility] 08-01-2024 10:50-0500 Heart rate 76 /min Shira Bittikofer ANTIQUE AUTOMOBILES REPAIRER.OPENING MACHINE CLEANER Work Phone: [facility] 08-01-2024 10:50-0500 Systolic blood pressure 127 mm[Hg] Shira Bittikofer ANTIQUE AUTOMOBILES REPAIRER.OPENING MACHINE CLEANER Work Phone: [facility] 07-29-2024 15:48-0500 Body temperature 97.81 [degF] Aashish Bahena MD Work Phone: [facility] 07-29-2024 15:48-0500 Diastolic blood pressure 68 mm[Hg] Aashish Bahena MD Work Phone: [facility] 07-29-2024 15:48-0500 Heart rate 73 /min Aashish Bahena MD Work Phone: [facility] 07-29-2024 15:48-0500 Respiratory rate 16 /min Aashish Bahena MD Work Phone: [facility] 07-29-2024 15:48-0500 SaO2% (BldA) [Mass fraction] 98 % Aashish Bahena MD Work Phone: [facility] 07-29-2024 15:48-0500 Systolic blood pressure 124 mm[Hg] Aashish Bahena MD Work Phone: [facility] 07-11-2024 08:21-0400 Body height 156.2 cm Urban Horton MD Work Phone: [facility] 07-11-2024 08:21-0400 Body mass index (BMI) [Ratio] 34.58 kg/m2 Urban Horton MD Work Phone: [facility] 07-11-2024 08:21-0400 Body weight 84.37 kg Urban Horton MD Work Phone: [facility] 07-11-2024 08:21-0400 Diastolic blood pressure 62 mm[Hg] Urban Horton MD Work Phone: [facility] 07-11-2024 08:21-0400 Heart rate 78 /min Urban Horton MD Work Phone: [facility] 07-11-2024 08:21-0400 Systolic blood pressure 133 mm[Hg] Urban Horton MD Work Phone: [facility] 06-06-2024 11:11-0400 Body height 156.2 cm Pacc 1 Work Phone: [facility] 06-06-2024 11:11-0400 Body mass index (BMI) [Ratio] 34.58 kg/m2 Pacc 1 Work Phone: [facility] 06-06-2024 11:11-0400 Body temperature 97.11 [degF] Pacc 1 Work Phone: [facility] 06-06-2024 11:11-0400 Body weight 84.37 kg Pacc 1 Work Phone: [facility] 06-06-2024 11:11-0400 Diastolic blood pressure 80 mm[Hg] Pacc 1 Work Phone: [facility] 06-06-2024 11:11-0400 Heart rate 79 /min Pacc 1 Work Phone: [facility] 06-06-2024 11:11-0400 Respiratory rate 16 /min Pacc 1 Work Phone: [facility] 06-06-2024 11:11-0400 SaO2% (BldA) [Mass fraction] 97 % Pacc 1 Work Phone: [facility] 06-06-2024 11:11-0400 Systolic blood pressure 132 mm[Hg] Pacc 1 Work Phone: [facility] 05-21-2024 11:13-0400 Body height 154.9 cm Urban Horton MD Work Phone: [facility] 05-21-2024 11:13-0400 Body mass index (BMI) [Ratio] 34.58 kg/m2 Urban Horton MD Work Phone: [facility] 05-21-2024 11:13-0400 Body weight 83.01 kg Urban Horton MD Work Phone: [facility] 05-21-2024 11:13-0400 Diastolic blood pressure 60 mm[Hg] Urban Horton MD Work Phone: [facility] 05-21-2024 11:13-0400 Heart rate 58 /min Urban Horton MD Work Phone: [facility] 05-21-2024 11:13-0400 Systolic blood pressure 162 mm[Hg] Urban Horton MD Work Phone: [facility] 04-16-2024 08:24-0400 Body mass index (BMI) [Ratio] 37.11 kg/m2 Piter Dean ANTIQUE AUTOMOBILES REPAIRER.OPENING MACHINE CLEANER Work Phone: [facility] 04-16-2024 08:24-0400 Body weight 86.18 kg Piter Dean ANTIQUE AUTOMOBILES REPAIRER.OPENING MACHINE CLEANER Work Phone: [facility] 04-16-2024 08:24-0400 Diastolic blood pressure 68 mm[Hg] Piter Dean ANTIQUE AUTOMOBILES REPAIRER.OPENING MACHINE CLEANER Work Phone: [facility] 04-16-2024 08:24-0400 Heart rate 72 /min Piter Dean ANTIQUE AUTOMOBILES REPAIRER.OPENING MACHINE CLEANER Work Phone: [facility] 04-16-2024 08:24-0400 SaO2% (BldA) [Mass fraction] 98 % Piter Dean ANTIQUE AUTOMOBILES REPAIRER.OPENING MACHINE CLEANER Work Phone: [facility] 04-16-2024 08:24-0400 Systolic blood pressure 132 mm[Hg] Piter Dean ANTIQUE AUTOMOBILES REPAIRER.OPENING MACHINE CLEANER Work Phone: [facility] 12-06-2023 01:07-0400 Body temperature 96.7 [degF] [facility] 12-06-2023 01:07-0400 Diastolic blood pressure 88 mm[Hg] [facility] 12-06-2023 01:07-0400 Heart rate 67 /min [facility] 12-06-2023 01:07-0400 Respiratory rate 18 /min [facility] 12-06-2023 01:07-0400 SaO2% (BldA) [Mass fraction] 100 % [facility] 12-06-2023 01:07-0400 Systolic blood pressure 101 mm[Hg] [facility] 12-05-2023 22:32-0400 Body height 149.86 cm [facility] 12-05-2023 22:32-0400 Body mass index (BMI) [Ratio] 39 kg/m2 [facility] 12-05-2023 22:32-0400 Body weight 87.67 kg [facility] 10-17-2023 09:45-0500 Body height 152.4 cm Aashish Bahena MD Work Phone: [facility] 10-17-2023 09:45-0500 Body temperature 98.1 [degF] Aashish Bahena MD Work Phone: [facility] 10-17-2023 09:45-0500 Body weight 86.18 kg Aashish Bahena MD Work Phone: [facility] 10-17-2023 09:45-0500 Diastolic blood pressure 60 mm[Hg] Aashish Bahena MD Work Phone: [facility] 10-17-2023 09:45-0500 Heart rate 69 /min Aashish Bahena MD Work Phone: [facility] 10-17-2023 09:45-0500 Respiratory rate 12 /min Aashish Bahena MD Work Phone: [facility] 10-17-2023 09:45-0500 SaO2% (BldA) [Mass fraction] 99 % Aashish Bahena MD Work Phone: [facility] 10-17-2023 09:45-0500 Systolic blood pressure 136 mm[Hg] Aashish Bahena MD Work Phone: [facility] 04-03-2023 10:08-0400 Diastolic blood pressure 72 mm[Hg] Piter Dean ANTIQUE AUTOMOBILES REPAIRER.OPENING MACHINE CLEANER Work Phone: [facility] 04-03-2023 10:08-0400 Systolic blood pressure 148 mm[Hg] Piter Dean ANTIQUE AUTOMOBILES REPAIRER.OPENING MACHINE CLEANER Work Phone: [facility] 04-03-2023 10:07-0400 Body weight 82.1 kg Piter Dean ANTIQUE AUTOMOBILES REPAIRER.OPENING MACHINE CLEANER Work Phone: [facility] 04-03-2023 10:07-0400 Heart rate 69 /min Piter Dean ANTIQUE AUTOMOBILES REPAIRER.OPENING MACHINE CLEANER Work Phone: [facility] 04-03-2023 10:07-0400 SaO2% (BldA) [Mass fraction] 98 % Piter Dean ANTIQUE AUTOMOBILES REPAIRER.OPENING MACHINE CLEANER Work Phone: [facility] 06-08-2022 14:04-0400 Body temperature 97.5 [degF] Dr. Kvng Fung Work Phone: [facility] Work Phone: 06-08-2022 14:04-0400 Diastolic blood pressure 42 mm[Hg] Dr. Kvng Fung Work Phone: [facility] Work Phone: 06-08-2022 14:04-0400 Heart rate 60 /min Dr. Kvng Fung Work Phone: [facility] Work Phone: 06-08-2022 14:04-0400 Respiratory rate 16 /min Dr. Kvng Fung Work Phone: [facility] Work Phone: 06-08-2022 14:04-0400 SaO2% (BldA) [Mass fraction] 95 % Dr. Kvng Fung Work Phone: [facility] Work Phone: 06-08-2022 14:04-0400 Systolic blood pressure 105 mm[Hg] Dr. Kvng Fung Work Phone: [facility] Work Phone: 06-08-2022 08:48-0400 Inhaled oxygen flow rate 4 L/min Dr. Kvng Fung Work Phone: [facility] Work Phone: 06-07-2022 14:59-0400 Body height 149.[address] Kvng Fung Work Phone: [facility] Work Phone: 06-07-2022 14:59-0400 Body mass index (BMI) [Ratio] 33.8 kg/m2 Dr. Kvng Fung Work Phone: [facility] Work Phone: 06-07-2022 14:59-0400 Body weight [address] Kvng Fung Work Phone: [facility] Work Phone: 05-25-2022 13:03-0400 Body mass index (BMI) [Ratio] 32.1 kg/m2 Dr. Kvng Fung Work Phone: [facility] Work Phone: 05-25-2022 13:03-0400 Body temperature 98 [degF] Dr. Kvng Fung Work Phone: [facility] Work Phone: 05-25-2022 13:03-0400 Body weight 77.[address] Kvng Fung Work Phone: [facility] Work Phone: 05-25-2022 13:03-0400 Diastolic blood pressure 70 mm[Hg] Dr. Kvng Fung Work Phone: [facility] Work Phone: 05-25-2022 13:03-0400 Heart rate 74 /min Dr. Kvng Fung Work Phone: [facility] Work Phone: 05-25-2022 13:03-0400 Respiratory rate 16 /min Dr. Kvng Fung Work Phone: [facility] Work Phone: 05-25-2022 13:03-0400 SaO2% (BldA) [Mass fraction] 99 % Dr. Kvng Fung Work Phone: [facility] Work Phone: 05-25-2022 13:03-0400 Systolic blood pressure 140 mm[Hg] Dr. Kvng Fung Work Phone: [facility] Work Phone: 11-22-2021 12:27-0500 Diastolic blood pressure 60 mm[Hg] Dr. Kvng Fung Work Phone: [facility] Work Phone: 11-22-2021 12:27-0500 Heart rate 86 /min Dr. Kvng Fung Work Phone: [facility] Work Phone: 11-22-2021 12:27-0500 Respiratory rate 18 /min Dr. Kvng Fung Work Phone: [facility] Work Phone: 11-22-2021 12:27-0500 SaO2% (BldA) [Mass fraction] 98 % Dr. Kvng Fung Work Phone: [facility] Work Phone: 11-22-2021 12:27-0500 Systolic blood pressure 158 mm[Hg] Dr. Kvng Fung Work Phone: [facility] Work Phone: 09-06-2021 08:19-0500 Body mass index (BMI) [Ratio] 40.8 kg/m2 Dr. Kvng Fung Work Phone: [facility] Work Phone: 09-06-2021 08:19-0500 Body weight 97.[address] Kvng Fung Work Phone: [facility] Work Phone: 09-06-2021 08:19-0500 Diastolic blood pressure 84 mm[Hg] Dr. Kvng Fung Work Phone: [facility] Work Phone: 09-06-2021 08:19-0500 Heart rate 72 /min Dr. Kvng Fung Work Phone: [facility] Work Phone: 09-06-2021 08:19-0500 Respiratory rate 17 /min Dr. Kvng Fung Work Phone: [facility] Work Phone: 09-06-2021 08:19-0500 SaO2% (BldA) [Mass fraction] 94 % Dr. Kvng Fung Work Phone: [facility] Work Phone: 09-06-2021 08:19-0500 Systolic blood pressure 142 mm[Hg] Dr. Kvng Fung Work Phone: [facility] Work Phone: 01-02-2014 10:39-0400 Body weight 81.[address] Kvng Fung Work Phone: [facility] Work Phone: Encounters Encounter Date Encounter Type Care Provider Facility Start: 02-18-2025 End: 02-18-2025 Emergency department patient visit Dr. Aashish Bahena MD Work Phone: -Emergency Department Work Phone: Start: 02-18-2025 End: 02-18-2025 Subsequent hospital visit by physician [facility] Work Phone: Radiology Comment on above: Acute cough [R05.1] Start: 02-18-2025 End: 02-18-2025 Office outpatient visit 25 minutes Rakesh Lopez MD Work Phone: [facility] Comment on above: Acute cough (Primary Dx); Wheezing; Chest pain, unspecified type Start: 02-18-2025 End: 02-18-[address] Aashish Bahena MD Work Phone: [facility] Work Phone: Start: 02-18-2025 End: 02-18-[address] Anthony Esquivel MD -Wound Healing [facility] Work Phone: Start: 02-06-2025 End: 02-06-[address] Aashish Bahena MD Work Phone: [facility] Work Phone: Start: 02-06-2025 End: 02-06-[address] Dann Fontaine MD -Cardiovascular Services Work Phone: Start: 02-06-2025 End: 02-06-2025 ambulatory Aashish Jordan Bahena Facility:[facility] Start: 02-04-2025 Non-patient / Non-visit Dr. Anthony Esquivel MD -[facility] Start: 02-04-[address] Anthony Valdovinos rn, MD -[facility] Work Phone: Start: 02-03-2025 End: 02-03-2025 Patient encounter procedure Crystal FERMIN -[facility] Work Phone: Start: 02-03-2025 End: 02-03-[address] Aashish Bahena MD Work Phone: [facility] Work Phone: Start: 01-28-2025 Non-patient / Non-visit Dr. Anthony Esquivel MD -[facility] Start: 01-28-[address] Anthony Valdovinos rn, MD -[facility] [place] Work Phone: Start: 01-21-2025 End: 01-21-2025 ambulatory Anthony Esquivel Facility:[facility] Start: 01-21-2025 End: 01-21-[address] Anthony Esquivel MD -[facility] Work Phone: Start: 01-21-2025 Non-patient / Non-visit Dr. Anthony Esquivel MD -[facility] Start: 01-14-2025 Non-patient / Non-visit Dr. Anthony Esquivel MD [facility] Start: 01-07-2025 Non-patient / Non-visit Dr. Anthony Esquivel MD [facility] Start: 12-31-2024 Non-patient / Non-visit Betty dalton 3D DESIGNER-C -[facility] Start: 12-23-2024 Non-patient / Non-visit Dr. Anthony Esquivel MD [facility] Start: 12-18-2024 End: 12-18-[address] Drew Steele MD -[facility] Work Phone: Start: 12-18-2024 End: 12-18-2024 ambulatory Drew Steele Facility:[facility] Start: 12-16-2024 End: 12-22-[address] Aashish Bahena MD Work Phone: [facility] Work Phone: Start: 12-16-2024 End: 12-22-[address] 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 Anthony Esquivel MD -[facility] Start: 12-01-2024 End: 12-01-2024 Orders Only Hal Hale APRN.OPENING MACHINE CLEANER Work Phone: Orthopaedics Comment on above: Left knee pain, unsp ecified chronicity (Primary Dx) Start: 11-25-2024 Non-patient / Non-visit Dr. Anthony Esquivel MD [facility] Start: 11-18-2024 Non-patient / Non-visit Dr. Anthony Esquivel MD [facility] Start: 11-18-2024 End: 11-21-2024 ambulatory Anthony Esquivel Facility:[facility] Start: 11-18-2024 End: 11-21-[address] Anthony Esquivel MD -[facility] Work Phone: Start: 11-11-2024 Non-patient / Non-visit Dr. Anthony Esquivel MD [facility] Start: 11-07-2024 End: 11-10-2024 ambulatory Aashish Bahena MD Work Phone: [facility] [place] Comment on above: Tylenol cold and flu medicine Start: 11-04-2024 Non-patient / Non-visit Dr. Anthony Esquivel MD [facility] Start: 10-28-2024 Non-patient / Non-visit Dr. Anthony Esquivel MD [facility] Start: 10-21-2024 Non-patient / Non-visit Dr. Anthony Esquivel MD [facility] Start: 10-21-2024 End: 10-24-2024 ambulatory Anthony Esquivel Facility:[facility] Start: 10-21-2024 End: 10-24-[address] Anthony Esquivel MD -[facility] Work Phone: Start: 10-17-2024 End: 10-20-2024 Refill Yuri Brady APRN.SHOE STITCHER Work Phone: [facility] [place] Comment on above: Med Change Request Start: 10-17-2024 End: 10-17-2024 ambulatory AASHISH BAHENA Facility:[facility] Start: 10-17-2024 End: 10-17-2024 Office outpatient visit 25 minutes Aashish Bahena MD Work Phone: [facility] [place] Comment on above: PURE HYPERCHOLESTERO TAHIR; Controlled type 2 diabetes mellitus without complication, without long-term current use of insulin (HCC); Primary hypertension; Acquired hypothyroidism Start: 10-14-2024 Non-patient / Non-visit Dr. Anthony Esquivel MD [facility] Start: 10-13-2024 End: 10-14-2024 Refill Aashish Bahena MD Work Phone: [facility] [place] Comment on above: Refill Request Start: 10-07-2024 Non-patient / Non-visit Dr. 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) Start: 10-03-2024 End: 10-03-2024 Telephone encounter No Pcp ANTIQUE AUTOMOBILES REPAIRER [facility] Start: 10-02-2024 End: 10-02-2024 ambulatory AASHISH BAHENA Facility:[facility] Start: 10-02-2024 End: 10-02-2024 Office outpatient visit 25 minutes Yuri Brady ANTIQUE AUTOMOBILES REPAIRER.SHOE STITCHER Work Phone: [facility] [place] Comment on above: Cellulitis of left l ower extremity (Primary Dx); Status post total left knee replacement; Hypoglycemia Start: 10-01-2024 End: 10-01-2024 ambulatory Hal Hale ANTIQUE AUTOMOBILES REPAIRER.OPENING MACHINE CLEANER Work Phone: Orthopaedics Comment on above: Oxycodone Start: 09-30-2024 Non-patient / Non-visit Dr. Anthony Esquivel MD [facility] Start: 09-28-2024 End: 09-29-2024 ambulatory Yuri Brady ANTIQUE AUTOMOBILES REPAIRER.SHOE STITCHER Work Phone: [facility] [place] Comment on above: Potassium Start: 09-26-2024 Non-patient / Non-visit Dr. Isreal tinajero MD [facility] Work Phone: Start: 09-25-2024 Non-patient / Non-visit Dr. Isreal tinajero MD [facility] Work Phone: Start: 09-24-2024 Non-patient / Non-visit Dr. Enriqueta Knight DO -[place] [facility] Work Phone: Start: 09-23-2024 End: 09-26-2024 Evaluation and management of inpatient Dr. Isreal Cuenca MD -Medical Surgical 3 Work Phone: Start: 09-23-2024 Non-patient / Non-visit Dr. Anthony Esquivel MD -[facility] Start: 09-23-2024 End: 09-23-2024 ambulatory Ela Quinn RN NURSE REEL MAN Comment on above: Low Blood Sugar Start: 09-23-2024 End: 09-23-[address] Anthony Esquivel MD -[facility] Work Phone: Start: 09-16-2024 Non-patient / Non-visit Dr. Anthony Esquivel MD [facility] Start: 09-14-2024 End: 09-15-2024 ambulatory Hal Hale ANTIQUE AUTOMOBILES REPAIRER.OPENING MACHINE CLEANER Work Phone: Orthopaedics Comment on above: Knee pain Start: 09-12-2024 End: 09-12-2024 Patient encounter procedure Urban Horton MD Work Phone: Plastic Surgery Comment on above: Open wound of left k nee, subsequent encounter (Primary Dx) Start: 09-12-2024 End: 09-12-2024 ambulatory AASHISH BAHENA Facility:[facility] Start: 09-09-2024 Non-patient / Non-visit Dr. Anthony Esquivel MD -[facility] Start: 09-08-2024 End: 09-09-2024 Refill Hal Hale ANTIQUE AUTOMOBILES REPAIRER.OPENING MACHINE CLEANER Work Phone: Orthopaedics Comment on above: Refill Request Start: 09-02-2024 Non-patient / Non-visit Dr. Anthony Esquivel MD [facility] Start: 08-27-2024 End: 08-27-2024 Refill Aashish Bahena MD Work Phone: [facility] [place] Comment on above: Refill Request Start: 08-26-2024 Non-patient / Non-visit Dr. 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); Delayed surgical wound healing, sequela Start: 08-18-2024 End: 08-19-2024 Telephone encounter Mart Enciso MD Work Phone: Orthopaedics Comment on above: Orders (Outpatient p hysical therapy) Patient Update Start: 08-07-2024 End: 08-08-2024 Telephone encounter Matr Enciso MD Work Phone: Orthopaedics Comment on above: Question about updat ed precautions Start: 08-05-2024 End: 08-05-2024 [facility] Facility:[facility] Start: 08-05-2024 End: 08-05-2024 Patient encounter procedure Hal Hale APRN.OPENING MACHINE CLEANER Work Phone: Orthopaedics Comment on above: Delayed surgical wou nd healing, initial encounter (Primary Dx); S/P revision of total knee, left Start: 08-01-2024 End: 08-01-2024 [facility] Facility:[facility] Start: 08-01-2024 End: 08-01-2024 Office outpatient visit 10 minutes Shira Unger APRN.OPENING MACHINE CLEANER Work Phone: Plastic Surgery Comment on above: History of total lef t knee replacement (Primary Dx); Postoperative visit Start: 07-29-2024 End: 07-29-2024 Office outpatient visit 15 minutes Aashish Bahena MD Work Phone: [facility] [place] Comment on above: Controlled type 2 di abetes mellitus without complication, without long-term current use of insulin (HCC) (Primary Dx); Wound healing, delayed; Primary hypertension; Acquired hypothyroidism; Screening for colon cancer Start: 07-29-2024 End: 07-29-2024 ambulatory [facility] Start: 07-28-2024 End: 07-28-2024 Telephone encounter Aashish Bahena MD Work Phone: [facility] [place] Comment on above: [facility] OT POC Start: 07-24-2024 End: 07-24-2024 Orders Only Hal Hale APRN.OPENING MACHINE CLEANER Work Phone: Orthopaedics Comment on above: Chronic pain of left knee (Primary Dx) Delayed surgical wou nd healing, initial encounter (Primary Dx); S/P revision of total knee, left Chronic pain of left knee [M25.562, G89.29] Start: 07-22-2024 End: 07-28-2024 Telephone encounter Aashish Bahena MD Work Phone: [facility] [place] Comment on above: FYI: [facility] PT POC Home Health Update Start: 07-22-2024 End: 07-24-2024 ambulatory Anthony Esquivel Facility:[facility] Start: 07-21-2024 End: 07-21-2024 Telephone encounter Hal Hale APRN.OPENING MACHINE CLEANER Work Phone: Orthopaedics Start: 07-16-2024 End: 07-18-2024 Telephone encounter Aashish Bahena MD Work Phone: [facility] [place] Start: 07-16-2024 End: 07-16-2024 ambulatory [facility] Start: 07-16-2024 End: 07-16-2024 Patient encounter procedure Hal Hale APRN.OPENING MACHINE CLEANER Work Phone: Orthopaedics Comment on above: Delayed surgical wou nd healing, initial encounter (Primary Dx); S/P revision of total knee, left Start: 07-14-2024 End: 07-14-2024 Telephone encounter Hal Hale APRN.OPENING MACHINE CLEANER Work Phone: Orthopaedics Comment on above: Appointment Start: 07-11-2024 End: 07-11-2024 ambulatory AASHISH D TALAMPAS Facility:[facility] Start: 07-11-2024 End: 07-11-2024 Patient encounter procedure Urban Horton MD Work Phone: Plastic Surgery Comment on above: Postoperative visit (Primary Dx) Start: 07-10-2024 End: 07-10-2024 ambulatory AASHISH D TALAMPAS Facility:[facility] Start: 07-10-2024 End: 07-11-2024 Patient encounter procedure Hal Hale APRN.OPENING MACHINE CLEANER Work Phone: Orthopaedics Comment on above: S/P revision of tota l knee, left (Primary Dx) Chronic pain of left knee (Primary Dx) Start: 07-03-2024 End: 07-03-2024 Patient encounter procedure Hal Hale ANTIQUE AUTOMOBILES REPAIRER.OPENING MACHINE CLEANER Work Phone: Orthopaedics Comment on above: S/P revision of tota l knee, left (Primary Dx) Start: 07-03-2024 End: 07-03-2024 ambulatory UNKNOWN PROVIDER Facility:[facility] Start: 07-03-2024 End: 07-03-2024 Subsequent hospital visit by physician [facility] Work Phone: Radiology Comment on above: Chronic pain of left knee [M25.562, G89.29] Start: 06-27-2024 End: 07-19-2024 Evaluation and management of inpatient Leo Chi Jacob Facility:[facility] Start: 06-19-2024 End: 06-20-2024 Telephone encounter Mart Enciso MD Work Phone: Orthopaedics Comment on above: Orders Start: 06-19-2024 End: 06-27-2024 Evaluation and management of inpatient AASHISH D TALAMPAS Facility:[facility] Start: 06-09-2024 End: 06-09-2024 Telephone encounter Ilene Adkins [facility] Orthopaedics Comment on above: 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 Start: 06-06-2024 Encounter for other preprocedural examination AASHISH BAHENA [facility] Start: 06-06-2024 End: 06-06-2024 Admission to establishment Pac [place] 1 Work Phone: Pre Anesthesia Start: 06-06-2024 End: 06-06-2024 ambulatory AASHISH BAHENA Facility:[facility] Start: 06-06-2024 End: 06-06-2024 Anesthesia consultation Pac [place] 1 Work Phone: Pre Anesthesia Comment on above: Pre-operative examin ation (Primary Dx); Hypertension goal BP (blood pressure) < 140/90; Pure hypercholesterolemia; Hiatal hernia; Controlled type 2 diabetes mellitus without complication, without long-term current use of insulin (HCC); Acquired hypothyroidism; Nontoxic uninodular goiter; Obesity, Class I, BMI 30-34.9; History of DVT (deep vein thrombosis); History of total right knee replacement; Status post revision of total replacement of left knee; Ocular myasthenia (HCC) Start: 06-06-2024 End: 06-06-2024 Preprocedural examination done Pac [place] 1 Work Phone: [facility] Work Phone: Start: 05-29-2024 End: 05-29-2024 ambulatory AASHISH BAHENA Facility:[facility] Start: 05-21-2024 End: 05-21-2024 Patient encounter procedure Urban Horton MD Work Phone: Plastic Surgery Comment on above: History of total lef t knee replacement (Primary Dx) Start: 05-21-2024 End: 05-21-2024 ambulatory AASHISH BAHENA Facility:[facility] Start: 05-11-2024 End: 05-12-2024 Refill Aashish Bahena MD Work Phone: [facility] [place] Comment on above: Refill Request Start: 05-09-2024 End: 06-26-2024 Refill Aashish Bahena MD Work Phone: [facility] Medicine [place] Comment on above: Refill Request Atorvastatin [facility] Start: 05-03-2024 ambulatory Piter Dean A PRN.OPENING MACHINE CLEANER Work Phone: Internal Medicine [place] Comment on above: Atorvastatin Start: 04-29-2024 Refill Piter Dean A PRN.OPENING MACHINE CLEANER Work Phone: Internal Medicine [place] Comment on above: Refill Request Start: 04-28-2024 ambulatory Piter Dean A PRN.OPENING MACHINE CLEANER Work Phone: Internal Medicine [place] Comment on above: Rash Start: 04-26-2024 Refill Piter Dean A PRN.OPENING MACHINE CLEANER Work Phone: Internal Medicine [place] Comment on above: Refill Request Start: 04-17-2024 Orders Only Mart Ortega Work Phone: Orthopaedics Comment on above: 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) Start: 04-16-2024 End: 04-16-2024 [facility] Start: 04-16-2024 End: 04-16-2024 Patient encounter procedure Ptier Dean ANTIQUE AUTOMOBILES REPAIRER.OPENING MACHINE CLEANER Work Phone: Internal Medicine [place] Comment on above: B12 deficiency (Prim adria Dx); Iron deficiency; Acquired hypothyroidism; Controlled type 2 diabetes mellitus without complication, without long-term current use of insulin (HCC); Primary hypertension; Chronic pain of left knee; Yeast dermatitis; Rash; Vitamin D deficiency; Encounter for therapeutic drug monitoring Start: 04-11-2024 Documentation procedure Mammog rad Coordinator [facility] Department Start: 04-11-2024 Letter encounter Mammography Coordinator [facility] Department Start: 04-11-2024 End: 04-11-2024 [facility] Start: 04-11-2024 End: 04-11-2024 Subsequent hospital visit by physician Screen Mammo [facility] Comment on above: Breast cancer screen ing by mammogram [Z12.31] Start: 03-31-2024 End: 03-31-[address] [facility] Facility:[facility] Start: 03-04-2024 End: 03-04-[address] 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) Start: 12-05-2023 End: 12-06-2023 Emergency department patient visit [facility] Work Phone: Start: 11-14-2023 End: 11-14-2023 Subsequent hospital visit by physician Us Doan A21 1 Radiology Comment on above: Fibrosis of left kne e joint [M24.662] Start: 10-31-2023 Telephone encounter Mahi Roth ( Coord) Radiology Comment on above: Appointment Start: 10-30-2023 End: 10-30-2023 Patient encounter procedure Mart Enciso MD Work Phone: Orthopaedics Comment on above: 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) Start: 10-30-2023 End: 10-30-2023 Subsequent hospital visit by physician Radio [facility] Leesa Evans Work Phone: Radiology Comment on above: Left knee pain, unsp ecified chronicity [M25.562] Start: 10-17-2023 End: 10-17-2023 Office outpatient visit 25 minutes Aashish Bahena MD Work Phone: Internal Medicine [place] Comment on above: Controlled type 2 di abetes mellitus without complication, without long-term current use of insulin (HCC) (Primary Dx); Acquired hypothyroidism; Primary hypertension; PURE HYPERCHOLESTEROLEM; Chronic pain of left knee; Vitamin D deficiency; Vitamin B12 deficiency; Iron deficiency; Encounter for immunization; Need for shingles vaccine; Screening for colon cancer; Breast cancer screening by mammogram; Encounter for long-term current use of medication; Screening for diabetic retinopathy Start: 04-03-2023 End: 04-03-2023 Patient encounter procedure Piter Moran APRN.CNP Work Phone: Internal Medicine [place] Comment on above: Hypertension goal BP (blood pressure) < 140/90 (Primary Dx); Hiatal hernia; Controlled type 2 diabetes mellitus without complication, without long-term current use of insulin (HCC); Obesity, Class I, BMI 30-34.9; PURE HYPERCHOLESTEROLEM; Acquired hypothyroidism; Vitamin D deficiency; Vitamin B12 deficiency; Anemia, unspecified type; Encounter for screening mammogram for breast cancer; Encounter for therapeutic drug monitoring; Encounter to establish care Start: 09-21-2022 End: 09-21-[address] Kvng Fung Work Phone: [facility] Work Phone: Start: 09-21-2022 End: 09-21-[address] Kvng Fung Work Phone: [facility] Start: 06-08-2022 Non-patient / Non-visit Dr. Juan Jose Fung Work Phone: [facility] Start: 06-07-2022 Non-patient / Non-visit Dr. Juan Jose Fung Work Phone: [facility] Start: 06-07-2022 End: 06-08-2022 Evaluation and management of inpatient Dr. Kvng Fung [facility] Start: 06-07-2022 End: 06-08-[address] Kvng Fung Work Phone: [facility] Work Phone: Start: 05-25-2022 End: 05-25-[address] Kvng Fung Work Phone: [facility] Start: 05-23-2022 End: 05-23-[address] Kvng Fung Work Phone: [facility] Start: 04-13-2022 End: 04-13-[address] [facility] Start: 04-06-2022 End: 04-06-[address] [facility] Start: 02-08-2022 End: 02-08-[address] Kvng Fung Work Phone: [facility]-Pre-Admission Testing Start: 02-08-2022 End: 02-08-[address] Kvng Fung Work Phone: [facility] Start: 02-08-2022 Non-patient / Non-visit Dr. Juan Jose Fung Work Phone: [facility] Start: 11-24-2021 End: 11-24-[address] Kvng Fung Work Phone: [facility] Start: 11-22-2021 End: 11-22-[address] Kvng Fung Work Phone: [facility] Start: 11-08-2021 End: 11-08-[address] Kvng Fung [facility] Start: 10-12-2021 End: 10-12-[address] Kvng Fung Work Phone: [facility] Start: 09-29-2021 End: 09-29-[address] Kvng Fung Work Phone: [facility] Start: 09-06-[address] Kvng Fung Work Phone: [facility] Start: 09-06-2021 End: 09-06-[address] Kvng Fung Work Phone: [facility] Procedures Date Procedure Procedure Detail Performing Clinician Start: 02-18-2025 X-ray of chest, PA a nd lateral views Dr. Aashish Bahena MD Work Phone: Start: 02-18-[address] Aashish Bahena MD Work Phone: Start: 02-18-2025 Radiologic exam ches t 2 views Rakesh Lopez MD Work Phone: Start: 01-14-[address] Aashish Bahena MD Work Phone: Start: 01-14-2025 Gram stain microscopy Jordan Bahena MD Work Phone: Start: 01-14-2025 End: 01-14-2025 Microbial culture, routine Dr. Aashish Bahena MD Work Phone: Start: 12-02-[address] Aashish Bahena MD Work Phone: Start: 12-02-2024 Gram stain microscopy Jordan Bahena MD Work Phone: Start: 12-02-2024 End: 12-02-2024 Microbial culture, routine Dr. Aashish Bahena MD Work Phone: Start: 09-23-2024 Bacterial nucleic ac id assay Dr. Aashish Bahena MD Work Phone: Start: 09-23-2024 Gram stain microscopy Jordan Bahena MD Work Phone: Start: 09-23-2024 Microbial culture, routine Dr. 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 Kvng Fung Work Phone: Start: 06-07-2022 Total Knee Replaceme nt Robotic Arm Madeline (Right) Dr. Kvng Fung Work Phone: Start: 02-08-2022 MRI of lower extremity Dr. Kvng Fung Work Phone: Start: 09-29-2021 CT of thorax with contrast Dr. 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 Aashish Bahena MD Work Phone: H/O: hysterectomy History of hysterectomy Dr. Anthony Esquivel MD H/O: hysterectomy History of hysterectomy Dr. Anthony Esquivel MD H/O: hysterectomy History of hysterectomy Dr. Anthony Esquivel MD H/O: hysterectomy History of hysterectomy Dr. Anthony Esquivel MD H/O: hysterectomy History of hysterectomy Dr. Anthony Esquivel MD H/O: hysterectomy History of hysterectomy Dr. Anthony Esquivel MD H/O: hysterectomy History of hysterectomy Dr. Anthony Esquivel MD H/O: hysterectomy History of hysterectomy Dr. Anthony Esquivel MD History of appendectomy History of append ectomy Dr. Aashish Bahena MD Work Phone: History of appendectomy History of append ectomy Dr. Anthony Esquivel MD History of appendectomy History of append ectomy Dr. Anthony Esquivel MD History of appendectomy History of append ectomy Dr. Anthony Esquivel MD History of appendectomy History of append ectomy Dr. Anthony Esquivel MD History of appendectomy History of append ectomy Dr. Anthony Esquivel MD History of appendectomy History of append ectomy Dr. Anthony Esquivel MD History of appendectomy History of append ectomy Dr. Anthony Esquivel MD History of appendectomy History of append ectomy Dr. Anthony Esquivel MD History of cholecystectomy History of cholecystectomy Dr. Aashish Bahena MD Work Phone: History of cholecystectomy History of cholecystectomy Dr. Anthony Esquivel MD History of cholecystectomy History of cholecystectomy Dr. Anthony Esquivel MD History of cholecystectomy History of cholecystectomy Dr. Anthony Esquivel MD History of cholecystectomy History of cholecystectomy Dr. Anthony Esquivel MD History of cholecystectomy History of cholecystectomy Dr. Anthony Esquivel MD History of cholecystectomy History of cholecystectomy Dr. Anthony Esquivel MD History of cholecystectomy History of cholecystectomy Dr. Anthony Esquivel MD History of cholecystectomy History of cholecystectomy Dr. Anthony Esquivel MD History of operative procedure on knee History of left knee surgery Dr. Aashish Bahena MD Work Phone: Comment on above: x4 History of operative procedure on knee History of left knee surgery Dr. Anthony Esquivel MD History of operative procedure on knee History of left knee surgery Dr. Anthony Esquivel MD History of operative procedure on knee History of left knee surgery Dr. Anthony Esquivel MD History of operative procedure on knee History of left knee surgery Dr. Anthony Esquivel MD History of operative procedure on knee History of left knee surgery Dr. Anthony Esquivel MD History of operative procedure on knee History of left knee surgery Dr. Anthony Esquivel MD History of operative procedure on knee History of left knee surgery Dr. Anthony Esquivel MD History of operative procedure on knee History of left knee surgery Dr. Anthony Esquivel MD Nasal Screen MRSA/MSSA Dr. Flip Fung Work Phone: Plan of Treatment Date Care Activity Detail Author Start: 10-17-2025 Annual PCP Team Chronic Disease Visit Annual PCP Team Chronic Disease Visit [facility] Start: 10-17-2025 BP Controlled (<130/80) BP Controlled (<130/80) [facility] Start: 10-03-2025 Glaucoma screening Dilated Retinal Exam [facility] Start: 08-22-2025 BP Controlled (<130/80) BP Controlled (<130/80) [facility] Start: 08-01-2025 BP Controlled (<130/80) BP Controlled (<130/80) [facility] Start: 07-29-2025 Annual PCP Team Chronic Disease Visit Annual PCP Team Chronic Disease Visit [facility] Start: 07-29-2025 Anxiety Screening Anxiety Screening [facility] Comment on above: Postponed from 1966 (Declined at t his time) Start: 07-29-2025 BP Controlled (<130/80) BP Controlled (<130/80) [facility] Start: 05-14-2025 End: 05-14-2025 Patient encounter procedure 05/14/2025 10:00 AM EDT Office Visit Orthopaedics [address] [address] [place] [address] [place] [address] [phone] 6 m f/u, left knee ([facility] 12/11/2024) Orthopaedics Comment on above: 6 m f/u, left knee ([facility] 12/11/2024) Start: 04-20-2025 End: 04-20-2025 Patient encounter procedure Internal Med [facility] Comment on above: 6 month follow up Start: 04-16-2025 Annual PCP Team Chronic Disease Visit Annual PCP Team Chronic Disease Visit [facility] Start: 03-31-2025 Hepatitis B screening Urine Albumin:Creatinine Ratio [facility] Start: 02-18-2025 [facility] Start: 12-11-2024 End: 12-11-2024 Patient encounter procedure Orthopaedics Comment on above: 2 m f/u, left knee L knee pain Start: 12-04-2024 Hemoglobin A1c measurement HbA1C [facility] jayla Start: 11-25-2024 Covid-19 Vaccine ( season) Covid-19 Vaccine ( season) [facility] Start: 10-24-2024 End: 10-24-2024 Patient encounter procedure 10/24/2024 10:00 AM EST Office Visit Plastic Surgery [address] [address] Urban Horton MD [address] [place], [place] [phone] 6 week follow up Plastic Surgery Comment on above: 6 week follow up Start: 10-17-2024 Annual PCP Team Chronic Disease Visit Annual PCP Team Chronic Disease Visit [facility] Start: 10-17-2024 Hepatitis B screening Urine Albumin:Creatinine Ratio [facility] Start: 10-17-2024 Hepatitis B surface antibody level LDL Cholesterol [facility] Start: 10-17-2024 End: 10-17-2024 Patient encounter procedure 10/17/2024 9:40 AM EST Office Visit Internal Medicine [place] [address] [place] [address] Aashish Bahena MD [address] [place] [address] 6 month follow up- labs [facility] [place] Comment on above: 6 month follow up- labs Start: 10-07-2024 End: 10-07-2024 Patient encounter procedure 10/07/2024 10:20 AM EST Office Visit Orthopaedics [address] [address] Mart Enciso MD [address] [place] [address] Left knee pain, L knee revision 06/19, Orthopaedics Comment on above: Left knee pain, L knee revision 06/19, Start: 10-02-2024 End: 10-02-2024 Patient encounter procedure 10/02/2024 2:00 PM EST Office Visit Internal Medicine [place] [address] [facility] [place] [address] Yuri Brady APRN.SHOE STITCHER [address] [place] [address] [facility] 09/23/24-09/26/[facility] [place] Comment on above: [facility] 09/23/24-09/26/24 [facility] Start: 10-01-2024 Hemoglobin A1c measurement HbA1C [facility] Start: 09-29-2024 End: 12-29-2024 25-hydroxyvitamin D3 [Mass/volume] in Serum or Plasma VITAMIN D 25 HYDROXY Lab Routine Vitamin D deficiency Expected: 09/29/2024, Expires: 12/29/2024 [facility] Comment on above: Expected: 09/29/2024, Expires: Start: 09-29-2024 End: 12-29-2024 CBC W Auto Differential panel - Blood COMPLETE BLOOD COUNT AND DIFFERENTIAL Lab Routine Iron deficiency Encounter for therapeutic drug monitoring Expected: 09/29/2024, Expires: 12/29/2024 [facility] Work Phone: Comment on above: Expected: 09/29/2024, Expires: Start: 09-29-2024 End: 12-29-2024 Cobalamin (Vitamin B12) [Mass/volume] in Serum or Plasma VITAMIN B12 Lab Routine B12 deficiency Expected: 09/29/2024, Expires: 12/29/2024 [facility] Comment on above: Expected: 09/29/2024, Expires: Start: 09-29-2024 End: 12-29-2024 Comprehensive metabolic 2000 panel - Serum or Plasma COMPREHENSIVE METABOLIC PANEL Lab Routine Primary hypertension Encounter for therapeutic drug monitoring Expected: 09/29/2024, Expires: 12/29/2024 [facility] Comment on above: Expected: 09/29/2024, Expires: Start: 09-29-2024 End: 12-29-2024 Ferritin [Mass/volume] in Serum or Plasma FERRITIN Lab Routine Iron deficiency Expected: 09/29/2024, Expires: 12/29/2024 [facility] Comment on above: Expected: 09/29/2024, Expires: Start: 09-29-2024 End: 12-29-2024 Hemoglobin A1c in Blood HEMOGLOBIN A1C Lab Routine Controlled type 2 diabetes mellitus without complication, without long-term current use of insulin (HCC) Expected: 09/29/2024, Expires: 12/29/2024 [facility] Comment on above: Expected: 09/29/2024, Expires: Start: 09-29-2024 End: 12-29-2024 Iron and Iron binding capacity panel - Serum or Plasma IRON AND TIBC Lab Routine Iron deficiency Expected: 09/29/2024, Expires: 12/29/2024 [facility] Comment on above: Expected: 09/29/2024, Expires: Start: 09-29-2024 End: 12-29-2024 Lipid 1996 panel - Serum or Plasma LIPID PANEL BASIC Lab Routine Controlled type 2 diabetes mellitus without complication, without long-term current use of insulin (HCC) Expected: 09/29/2024, Expires: 12/29/2024 [facility] Comment on above: Expected: 09/29/2024, Expires: Start: 09-29-2024 End: 12-29-2024 Thyrotropin [Units/volume] in Serum or Plasma THYROID STIMULATING HORMONE Lab Routine Acquired hypothyroidism Encounter for therapeutic drug monitoring Expected: 09/29/2024, Expires: 12/29/2024 [facility] Comment on above: Expected: 09/29/2024, Expires: Start: 09-29-2024 End: 12-29-2024 Thyroxine (T4) free [Mass/volume] in Serum or Plasma T4 FREE/FREE THYROXINE Lab Routine Acquired hypothyroidism Encounter for therapeutic drug monitoring Expected: 09/29/2024, Expires: 12/29/2024 [facility] Comment on above: Expected: 09/29/2024, Expires: Start: 09-29-2024 End: 12-29-2024 Triiodothyronine (T3) Free [Mass/volume] in Serum or Plasma T3, FREE Lab Routine Acquired hypothyroidism Encounter for therapeutic drug monitoring Expected: 09/29/2024, Expires: 12/29/2024 [facility] Comment on above: Expected: 09/29/2024, Expires: Start: 09-26-2024 Patient discharge [facility] Start: 09-25-2024 End: 09-25-2024 Patient encounter procedure 09/25/2024 10:00 AM EST Office Visit Orthopaedics [address] [address] Hal Hale, EKTA.OPENING MACHINE CLEANER [address] [place] [address] Left knee pain, L knee revision 06/19, Orthopaedics Comment on above: Left knee pain, L knee revision 06/19, Start: 09-25-2024 Application, wound VAC [facility] Start: 09-24-2024 [facility] Start: 09-24-2024 Advance Directive Discussion Advance Directive Discussion [facility] Start: 09-24-2024 Consultation for treatment [facility] Start: 09-24-2024 Consultation [facility] Start: 09-23-2024 Following clinical pathway protocol [facility] Start: 09-23-2024 Assessment of risk of venous thromboembolism [facility] Start: 09-23-2024 Care regimes management [facility] Start: 09-23-2024 Consultation for treatment [facility] Start: 09-23-2024 Elevation of affected extremity [facility] Start: 09-23-2024 Incentive spirometry [facility] Start: 09-23-2024 Inhalation therapy procedure [facility] Start: 09-23-2024 Insertion of catheter into peripheral vein [facility] Start: 09-23-2024 Measuring intake and output [facility] Start: 09-23-2024 Notification of physician [facility] Start: 09-23-2024 Providing care according to standard [facility] Start: 09-23-2024 Provision of activity privileges [facility] Start: 09-23-2024 Referral to occupational therapist [facility] Start: 09-23-2024 Referral to service [facility] Start: 09-23-2024 End: 09-23-2024 [facility] Start: 09-23-2024 Admission procedure [facility] Start: 09-23-2024 Patient referral to dietitian [facility] Start: 09-12-2024 End: 09-12-2024 Patient encounter procedure 09/12/2024 10:30 AM EST Office Visit Plastic Surgery [address] [place] [address] Urban Horton MD [address] [place] [phone] post op Plastic Surgery Comment on above: post op Start: 08-23-2024 Glaucoma screening Dilated Retinal Exam [facility] Start: 08-22-2024 End: 08-22-2024 Patient encounter procedure 08/22/2024 11:00 AM EST Office Visit Plastic Surgery [address] [address] Urban Horton MD [address] [place] [address] post op Plastic Surgery Comment on above: post op Start: 08-19-2024 End: 08-19-2024 Patient encounter procedure 08/19/2024 10:00 AM EST Office Visit Orthopaedics [address] [place] [phone] Hal Hale, ANTIQUE AUTOMOBILES REPAIRER.OPENING MACHINE CLEANER [address] [place] [phone] L knee revision 06/19, incision check Orthopaedics Comment on above: L knee revision 06/19, incision check Start: 08-05-2024 End: 08-05-2024 Patient encounter procedure 08/05/2024 9:00 AM EST Office Visit Orthopaedics [address] [place] [address] Hal Hale, ANTIQUE AUTOMOBILES REPAIRER.OPENING MACHINE CLEANER [address] [place] [phone] L knee revision 06/19, incision check Orthopaedics Comment on above: L knee revision 06/19, incision check Start: 08-01-2024 End: 08-01-2024 Patient encounter procedure 08/01/2024 11:15 AM EST Office Visit Plastic Surgery [address] [address] Urban Horton MD [address] [place] [address] 3 week follow-up Plastic Surgery Comment on above: 3 week follow-up Start: 07-29-2024 End: 07-29-2024 Patient encounter procedure 07/29/2024 3:20 PM EST Office Visit Internal Medicine [address] [address] Aashish Bahena MD [address] [place] [address] knee surgery follow up [facility] [place] Comment on above: knee surgery follow up Start: 07-29-2024 Depression Screening Depression Screening [facility] Comment on above: Postponed from 1966 (Declined at t his time) Start: 07-24-2024 End: 07-24-2024 Patient encounter procedure Radiology Comment on above: L knee L knee revision 06/19 , incision check Start: 07-16-2024 End: 07-16-2024 Patient encounter procedure 07/16/2024 11:00 AM EDT Office Visit Orthopaedics [address] [phone] Hal Hale, ANTIQUE AUTOMOBILES REPAIRER.OPENING MACHINE CLEANER [address] [place] [address] L knee revision 06/19, incision check only Orthopaedics Comment on above: L knee revision 06/19, incision check onl y Start: 07-11-2024 End: 07-11-2024 Patient encounter procedure 07/11/2024 8:30 AM EDT Office Visit Plastic Surgery [address] [address] Urban Horton MD [address] [place], [place] [phone] follow up Plastic Surgery Comment on above: follow up Start: 07-10-2024 End: 07-10-2024 Patient encounter procedure 07/10/2024 1:30 PM EDT Office Visit Orthopaedics [address] [place] [phone] Hal Hale, ANTIQUE AUTOMOBILES REPAIRER.OPENING MACHINE CLEANER [address] [place] [address] L knee revision 06/19, incision check-per SG Orthopaedics Comment on above: L knee revision 06/19, incision check-per SG Start: 07-03-2024 End: 07-03-2024 Patient encounter procedure Radiology Comment on above: L knee pain s/p L knee revision 06/19 Start: 06-19-2024 End: 06-19-2024 Admission to same day surgery center 06/19/2024 7:45 AM EDT - 06/19/2024 12:38 PM EDT Surgery Admitting [address] [place] [address] Mart Enciso MD [address] [address] REVISION JOINT TOTAL KNEE FEMORAL AND ENTIRE TIBIAL COMPONENT Admitting Comment on above: REVISION JOINT TOTAL KNEE FEMORAL AND EN TIRE TIBIAL COMPONENT Start: 06-19-2024 End: 06-19-2024 Revj tot knee arthrp fem&entire tibial compone REVISION JOINT TOTAL KNEE FEMORAL AND ENTIRE TIBIAL COMPONENT Fibrosis of left knee joint 06/19/2024 7:45 AM EDT [facility]IN CHAVEZILILINDA Start: 06-19-2024 Subsequent hospital visit by physician Admitting Comment on above: Fibrosis of left knee joint [M24.662] Start: 06-06-2024 End: 09-05-2024 Hemoglobin A1c in Blood [facility] Comment on above: Expected: 06/06/2024, Expires: Start: 06-06-2024 End: 06-06-2024 Anesthesia consultation 06/06/2024 11:20 AM EDT PAT Pre Anesthesia [address] [place] [address] 1, Pacc [facility] [address] [place] [address] pre op DOS 06/19 Pre Anesthesia Comment on above: pre op DOS 06/19 Start: 05-29-2024 End: 05-29-2024 Patient encounter procedure 05/29/2024 9:15 AM EDT Office [place] [id number] registration needed [employer] [facility] Comment on above: registration needed Start: 05-25-2024 Covid-19 Vaccine ( season) Covid-19 Vaccine () [facility] Start: 05-25-2024 Influenza vaccination Influenza Vaccine (#1) [facility] Start: 05-21-2024 End: 05-21-2024 Patient encounter procedure 05/21/2024 11:30 AM EDT Office Visit Plastic Surgery [address] [address] [place] [address] [place] [phone] FLAP CONSULT Plastic Surgery Comment on above: FLAP CONSULT Start: 04-16-2024 Hemoglobin A1c measurement HbA1C [facility] jayla Start: 04-16-2024 End: 04-16-2024 Patient encounter procedure 04/16/2024 8:40 AM EDT Office Visit Internal Medicine [place] [address] [place], [place] [phone] Piter Moran APRN.OPENING MACHINE CLEANER [address] [place], [place] [phone] 6 month follow up-labs [facility] [place] Comment on above: 6 month follow up-labs Start: 04-11-2024 Screening for malignant neoplasm of breast Mammogram Screening [facility] Start: 04-03-2024 3 comp foot exam completed DIABETIC FOOT EXAM [facility] jayla Start: 04-03-2024 ANNUAL PCP TEAM CHRONIC DISEASE VISIT ANNUAL PCP TEAM CHRONIC DISEASE VISIT [facility] Start: 04-03-2024 Diabetic foot examination Diabetic Foot Exam [facility] Start: 01-07-2024 FECAL OCCULT BLOOD FECAL OCCULT BLOOD [facility] Start: 01-07-2024 Screening for malignant neoplasm of colon [facility] Start: 12-06-2023 [facility] Start: 11-22-2023 Covid-19 Vaccine ( season) Covid-19 Vaccine ( season) [facility] Start: 2023 RSV Vaccine (1 - 1-dose 75+ series) RSV Vaccine (1 - 1-dose 75+ series) [facility] Start: 10-30-2023 End: 01-29-2024 C reactive protein [Mass/volume] in Serum or Plasma C-REACTIVE PROTEIN (CRP) Lab Routine Fibrosis of left knee joint Expected: 10/30/2023, Expires: 01/29/2024 [facility] Work Phone: Comment on above: Expected: 10/30/2023, Expires: 4 Start: 10-30-2023 End: 01-29-2024 Erythrocyte sedimentation rate SED RATE WESTERGREN Lab Routine Fibrosis of left knee joint Expected: 10/30/2023, Expires: 01/29/2024 [facility] Work Phone: Comment on above: Expected: 10/30/2023, Expires: 4 Start: 09-24-2023 Behavioral Health Screening Behavioral Health Screening [facility] Start: 06-18-2023 Hepatitis C antibody, confirmatory test DILATED RETINAL EXAM [facility] Start: 05-25-2023 Influenza vaccination INFLUENZA (#1) [facility] Start: 04-03-2023 End: 06-03-2023 25-hydroxyvitamin D3 [Mass/volume] in Serum or Plasma VITAMIN D 25 HYDROXY Lab Routine Encounter for therapeutic drug monitoring Vitamin D deficiency Expected: 04/03/2023, Expires: 06/03/2023 [facility] Work Phone: Comment on above: Expected: 04/03/2023, Expires: 3 Start: 04-03-2023 End: 06-03-2023 ALBUMIN/CREAT RATIO RND UR ALBUMIN/CREAT RATIO RND UR Lab Routine Controlled type 2 diabetes mellitus without complication, without long-term current use of insulin (HCC) Encounter for therapeutic drug monitoring Expected: 04/03/2023, Expires: 06/03/2023 [facility] Work Phone: Comment on above: Expected: 04/03/2023, Expires: 3 Start: 04-03-2023 End: 06-03-2023 CBC W Auto Differential panel - Blood CBC + DIFF Lab Routine Encounter for therapeutic drug monitoring Anemia, unspecified type Expected: 04/03/2023, Expires: 06/03/2023 [facility] Work Phone: Comment on above: Expected: 04/03/2023, Expires: 3 Start: 04-03-2023 End: 06-03-2023 Cobalamin (Vitamin B12) [Mass/volume] in Serum or Plasma VITAMIN B12 BLOOD Lab Routine Encounter for therapeutic drug monitoring Vitamin B12 deficiency Expected: 04/03/2023, Expires: 06/03/2023 [facility] Work Phone: Comment on above: Expected: 04/03/2023, Expires: 3 Start: 04-03-2023 End: 06-03-2023 Comprehensive metabolic 2000 panel - Serum or Plasma COMP METABOLIC PANEL Lab Routine Encounter for therapeutic drug monitoring Expected: 04/03/2023, Expires: 06/03/2023 [facility] Work Phone: Comment on above: Expected: 04/03/2023, Expires: Start: 04-03-2023 End: 06-03-2023 Ferritin [Mass/volume] in Serum or Plasma FERRITIN BLD Lab Routine Encounter for therapeutic drug monitoring Anemia, unspecified type Expected: 04/03/2023, Expires: 06/03/2023 [facility] Work Phone: Comment on above: Expected: 04/03/2023, Expires: 3 Start: 04-03-2023 End: 06-03-2023 Hemoglobin A1c in Blood HGB A1C Lab Routine Controlled type 2 diabetes mellitus without complication, without long-term current use of insulin (HCC) Encounter for therapeutic drug monitoring Expected: 04/03/2023, Expires: 06/03/2023 [facility] Work Phone: Comment on above: Expected: 04/03/2023, Expires: 3 Start: 04-03-2023 End: 06-03-2023 Iron and Iron binding capacity panel - Serum or Plasma IRON + TIBC Lab Routine Encounter for therapeutic drug monitoring Anemia, unspecified type Expected: 04/03/2023, Expires: 06/03/2023 [facility] Work Phone: Comment on above: Expected: 04/03/2023, Expires: 3 Start: 04-03-2023 End: 06-03-2023 Lipid 1996 panel - Serum or Plasma LIPID PANEL BASIC Lab Routine PURE HYPERCHOLESTEROLEM Encounter for therapeutic drug monitoring Expected: 04/03/2023, Expires: 06/03/2023 [facility] Work Phone: Comment on above: Expected: 04/03/2023, Expires: 3 Start: 04-03-2023 End: 06-03-2023 Thyrotropin [Units/volume] in Serum or Plasma TSH BLD Lab Routine Acquired hypothyroidism Encounter for therapeutic drug monitoring Expected: 04/03/2023, Expires: 06/03/2023 [facility] Work Phone: Comment on above: Expected: 04/03/2023, Expires: 3 Start: 01-07-2023 COLORECTAL CANCER SCREENING COLORECTAL CANCER SCREENING [facility] Start: 10-22-2022 COVID-19 VACCINE (6 - Moderna series) COVID-19 VACCINE (6 - Moderna series) [facility] Start: 06-08-2022 Patient discharge [facility] Work Phone: Start: 06-07-2022 Care regimes management [facility] Work Phone: Start: 06-07-2022 Notification of physician [facility] Work Phone: Start: 06-07-2022 [facility] Work Phone: Start: 06-07-2022 Anesth open/surg arthrs total knee arthroplasty ANESTH KNEE ARTHROPLASTY [facility] Work Phone: Start: 06-07-2022 Arthrp kne condyle&platu medial&lat compartments TOTAL KNEE ARTHROPLASTY [facility] Work Phone: Start: 06-07-2022 Injection aa&/strd femoral nerve NJX AA&/STRD FEMORAL NRV IMG [facility] Work Phone: Start: 06-07-2022 Provision of overbed trapeze [facility] Work Phone: Start: 06-07-2022 Admission procedure [facility] Work Phone: Start: 06-07-2022 Ambulation therapy management [facility] Work Phone: Start: 06-07-2022 Application of device [facility] Work Phone: Start: 06-07-2022 Application of elastic bandage [facility] Work Phone: Start: 06-07-2022 Assessment of risk of venous thromboembolism [facility] Work Phone: Start: 06-07-2022 Catheterization of vein [facility] Work Phone: Start: 06-07-2022 Consultation [facility] Work Phone: Start: 06-07-2022 Exercises [facility] Work Phone: Start: 06-07-2022 Following clinical pathway protocol [facility] Work Phone: Start: 06-07-2022 Incentive spirometry [facility] Work Phone: Start: 06-07-2022 Introduction of urinary catheter [facility] Work Phone: Start: 06-07-2022 Measuring intake and output [facility] Work Phone: Start: 06-07-2022 Neurovascular assessment [facility] Work Phone: Start: 06-07-2022 Patient education [facility] [facility] Work Phone: Start: 06-07-2022 Procedure discontinued [facility] Work Phone: Start: 06-07-2022 Provision of activity privileges [facility] Work Phone: Start: 06-07-2022 Referral to occupational therapist [facility] Work Phone: Start: 06-07-2022 Referral to service [facility] Work Phone: Start: 06-07-2022 Vital signs measurements [facility] Work Phone: Start: 06-07-2022 Wound care [facility] Work Phone: Start: 06-07-2022 End: 06-07-2022 [facility] Work Phone: Start: 06-07-2022 [facility] Work Phone: Start: 06-15-2020 Colonoscopy COLONOSCOPY [facility] Start: 05-27-2020 Pneumococcal Vaccine: 50+ (3 of 3 - PCV20 or PCV21) Pneumococcal Vaccine: 50+ (3 of 3 - PCV20 or PCV21) [facility] Start: 11-19-2019 Urine microalbumin profile [facility] jayla Start: 11-04-2018 Pneumococcal Vaccine: 65+ (3 of 3 - PPSV23 or PCV20) Pneumococcal Vaccine: 65+ (3 of 3 - PPSV23 or PCV20) [facility] Start: 11-04-2018 PNEUMOCOCCAL: 65+ (3 - PPSV23 or PCV20) PNEUMOCOCCAL: 65+ (3 - PPSV23 or PCV20) [facility] Start: 10-16-2017 Hepatitis B surface antibody level LDL CHOLESTEROL [facility] Start: 07-17-2017 Hemoglobin A1c/Hemoglobin.total in Blood HBA1C [facility] Start: 07-11-2017 Hepatitis B screening URINE ALBUMIN:CREATININE RATIO [facility] Start: 08-30-2016 Mammography MAMMOGRAM [facility] Start: 07-08-2012 SHINGRIX VACCINE (2 of 3) SHINGRIX VACCINE (2 of 3) [facility] Start: 06-15-2011 Screening for malignant neoplasm of colon Colonoscopy [facility] Start: 2008 RSV Vaccine (1 - 1-dose 60+ series) RSV Vaccine (1 - 1-dose 60+ series) [facility] Start: 1993 COLOGUARD (FIT-DNA) COLOGUARD (FIT-DNA) [facility] Start: [address] COLONOGRAPHY [facility] Start: 1993 Screening for malignant neoplasm of colon [facility] Start: 1993 SIGMOIDOSCOPY SIGMOIDOSCOPY [facility] Start: 1966 Anxiety Screening Anxiety Screening [facility] Start: 1966 BP CONTROLLED (<130/80) BP CONTROLLED (<130/80) [facility] Start: 1966 Depression Screening Depression Screening [facility] Bacteria identified in Body fluid by Culture BODY FLUID CULTURE AND GRAM STAIN Microbiology Routine Fibrosis of left knee joint Ordered: 10/30/2023 [facility] Work Phone: Comment on above: Ordered: 10/30/2023 End: 2024 DBT Breast - bilateral screening MAHESH SCREENING W JEFERSON Radiology Routine Breast cancer screening by mammogram 1 Occurrences starting 10/17/2023 until 2024 [facility] Work Phone: Comment on above: 1 Occurrences starting 10/17/2023 until 2024 DBT Breast - bilater al screening MAHESH SCREENING W JEFERSON Radiology Routine Breast cancer screening by mammogram 04/11/2024 12:30 PM EDT [facility] Work Phone: End: 06-06-2025 ECG COMPLETE ECG COMPLETE ECG Routine Pre-operative examination 1 Occurrences starting 06/06/2024 until 06/06/2025 [facility] Work Phone: Comment on above: 1 Occurrences starting 06/06/2024 until 06/06/2025 Electrocardiographic procedure [facility] Work Phone: Hemoglobin.gastroint estinal .lower [Presence] in Stool by Immunoassay IMMUNOCHEMICAL FECAL OCCULT BLOOD TEST Lab Routine Screening for colon cancer Ordered: 07/29/2024 [facility] Work Phone: Comment on above: Ordered: 07/29/2024 End: 05-02-2024 MAHESH SCREENING MAHESH SCREENING Radiology Routine Encounter for screening mammogram for breast cancer 1 Occurrences starting 04/03/2023 until 05/02/2024 [facility] Work Phone: Comment on above: 1 Occurrences starting 04/03/2023 until 05/02/2024 Patient Education [facility] Work Phone: Patient referral [facility] Work Phone: Pneumococcal vaccination PNEUMOC OCCAL VACCINE (PREVNAR 20) Immunization/Injection Routine Encounter for immunization Ordered: 10/17/2023 [facility] Work Phone: Comment on above: Ordered: 10/17/2023 Revj tot knee arthrp fem&entire tibial compone REVISION JOINT TOTAL KNEE FEMORAL AND ENTIRE TIBIAL COMPONENT Fibrosis of left knee joint [facility] SYNOVIAL FLUID, ROUTINE SYNOVIAL FLUID, ROUTINE Lab Routine Fibrosis of left knee joint Ordered: 10/30/2023 [facility] Work Phone: Comment on above: Ordered: 10/30/2023 End: 11-28-2024 US ASP/INJ KNEE JT/BURSA LEFT US ASP/INJ KNEE JT/BURSA LEFT Radiology Routine Fibrosis of left knee joint 1 Occurrences starting 10/30/2023 until 11/28/2024 [facility] Work Phone: Comment on above: 1 Occurrences starting 10/30/2023 until 11/28/2024 XR Knee - left AP an d Lateral XR KNEE LIMITED 2V AP/LAT LEFT Radiology Routine Chronic pain of left knee 07/03/2024 1:09 PM EDT [facility] Work Phone: End: 08-23-2025 XR Knee - left AP and Lateral XR KNEE LIMITED 2V AP/LAT LEFT Radiology Routine Chronic pain of left knee 1 Occurrences starting 07/24/2024 until 08/23/2025 [facility] Work Phone: Comment on above: 1 Occurrences starting 07/24/2024 until 08/23/2025 XR Knee - left AP an d Lateral XR KNEE LIMITED 2V AP/LAT LEFT Radiology Routine Chronic pain of left knee 07/24/2024 12:53 PM EDT [facility] End: 08-10-2025 XR Knee AP and Lateral and Merchants XR KNEE POST OP 3V AP/LAT/MERCHANT LEFT Radiology Routine Chronic pain of left knee 1 Occurrences starting 07/11/2024 until 08/10/2025 [facility] Work Phone: Comment on above: 1 Occurrences starting 07/11/2024 until 08/10/2025 End: 12-31-2025 XR Knee AP and Lateral and Merchants XR KNEE POST OP 3V AP/LAT/MERCHANT LEFT Radiology Routine Left knee pain, unspecified chronicity 1 Occurrences starting 12/01/2024 until 12/31/2025 [facility] Work Phone: Comment on above: 1 Occurrences starting 12/01/2024 until 12/31/2025 XR Knee AP and Later al and Merchants XR KNEE POST OP 3V AP/LAT/MERCHANT LEFT Radiology Routine Left knee pain, unspecified chronicity 12/11/2024 9:50 AM EDT [facility] Work Phone: [facility] Immunizations Immunization Date Immunization Notes Care Provider Paul jama 05-28-2024 Seasonal trivalent influenza vaccine, adjuvanted, preservative free Yuri Brady ANTIQUE AUTOMOBILES REPAIRER.SHOE STITCHER Work Phone: [facility] 07-23-2023 influenza (aIIV4) vaccine, age 65+ yr, quadrivalent, PF (FLUAD QUAD) Piter Dean ANTIQUE AUTOMOBILES REPAIRER.OPENING MACHINE CLEANER Work Phone: [facility] 07-23-2023 influenza virus vaccine, unspecified formulation Screen Wstr [facility] 06-22-2022 influenza, injectabl e, quadrivalent, preservative free Piter Dean ANTIQUE AUTOMOBILES REPAIRER.OPENING MACHINE CLEANER Work Phone: [facility] Work Phone: 07-28-2021 influenza (aIIV4) vaccine, age 65+ yr, quadrivalent, PF (FLUAD QUAD) Piter Dean ANTIQUE AUTOMOBILES REPAIRER.OPENING MACHINE CLEANER Work Phone: [facility] Work Phone: 12-17-2020 COVID-19 original vaccine, full dose, monovalent (MODERNA) Piter Dean ANTIQUE AUTOMOBILES REPAIRER.OPENING MACHINE CLEANER Work Phone: [facility] Work Phone: 07-15-2020 influenza, injectabl e, quadrivalent, contains preservative Piter Dean ANTIQUE AUTOMOBILES REPAIRER.OPENING MACHINE CLEANER Work Phone: [facility] Work Phone: 07-07-2019 influenza, seasonal, injectable Piter Dean ANTIQUE AUTOMOBILES REPAIRER.OPENING MACHINE CLEANER Work Phone: [facility] Work Phone: 06-20-2018 influenza, injectabl e, quadrivalent, contains preservative Piter Dean ANTIQUE AUTOMOBILES REPAIRER.OPENING MACHINE CLEANER Work Phone: [facility] Work Phone: 06-15-2017 influenza, seasonal, injectable Piter Dean ANTIQUE AUTOMOBILES REPAIRER.OPENING MACHINE CLEANER Work Phone: [facility] Work Phone: 07-13-2016 influenza, high dose seasonal, preservative-free Piter Dean ANTIQUE AUTOMOBILES REPAIRER.OPENING MACHINE CLEANER Work Phone: [facility] Work Phone: 07-05-2015 influenza, high dose seasonal, preservative-free Piter Dean ANTIQUE AUTOMOBILES REPAIRER.OPENING MACHINE CLEANER Work Phone: [facility] Work Phone: 05-27-2015 pneumococcal conjuga te vaccine, 13 valent Piter Dean ANTIQUE AUTOMOBILES REPAIRER.OPENING MACHINE CLEANER Work Phone: [facility] 07-07-2014 influenza nasal, unspecified formulation Piter Dean ANTIQUE AUTOMOBILES REPAIRER.OPENING MACHINE CLEANER Work Phone: [facility] Work Phone: 07-01-2014 influenza, seasonal, injectable Piter Dean ANTIQUE AUTOMOBILES REPAIRER.OPENING MACHINE CLEANER Work Phone: [facility] 06-24-[address] Kvng Fung Work Phone: [facility] 06-24-2014 influenza, seasonal, injectable Piter Dean ANTIQUE AUTOMOBILES REPAIRER.OPENING MACHINE CLEANER Work Phone: [facility] 11-04-2013 pneumococcal polysaccharide vaccine, 23 valent Piter Dean ANTIQUE AUTOMOBILES REPAIRER.OPENING MACHINE CLEANER Work Phone: [facility] 11-04-[address] Linda Fung Work Phone: [facility] Work Phone: 11-04-2013 pneumococcal vaccine , unspecified formulation Dr. Kvng Fung Work Phone: [facility] 07-13-[address] Kvng Fung Work Phone: [facility] 07-13-2013 influenza, seasonal, injectable Piter Dean ANTIQUE AUTOMOBILES REPAIRER.OPENING MACHINE CLEANER Work Phone: [facility] 06-28-2013 influenza virus vaccine, unspecified formulation Piter Dean ANTIQUE AUTOMOBILES REPAIRER.OPENING MACHINE CLEANER Work Phone: [facility] Work Phone: 06-15-2012 influenza virus vaccine, unspecified formulation Piter Dean ANTIQUE AUTOMOBILES REPAIRER.OPENING MACHINE CLEANER Work Phone: [facility] Work Phone: 05-13-2012 zoster vaccine, live Piter Roby villalobosver ANTIQUE AUTOMOBILES REPAIRER.OPENING MACHINE CLEANER Work Phone: [facility] 11-19-2009 tetanus toxoid, redu anahi diphtheria toxoid, and acellular pertussis vaccine, adsorbed Piter Dean ANTIQUE AUTOMOBILES REPAIRER.OPENING MACHINE CLEANER Work Phone: [facility] Work Phone: 09-06-2009 novel [id number], all formulations Piter Dean ANTIQUE AUTOMOBILES REPAIRER.[facility] Work Phone: [facility] Work Phone: 06-24-2009 influenza virus vaccine, unspecified formulation Piter Dean ANTIQUE AUTOMOBILES REPAIRER.[facility] Work Phone: [facility] Work Phone: 09-27-2004 pneumococcal polysaccharide vaccine, 23 valent Piter Dean ANTIQUE AUTOMOBILES REPAIRER.[facility] Work Phone: [facility] Work Phone: 10-13-[address] Linda Fung Work Phone: [facility] Work Phone: 10-13-2003 pneumococcal vaccine , unspecified formulation Dr. Kvng Fung Work Phone: [facility] NEGATED: Highlighted row has not occurred!11-22-2023 pneumococcal conjugate (PCV20) vaccine, 20 valent (PREVNAR 20) Aashish Bahena MD Work Phone: [facility] Work Phone: Comment on above: Deferred: OTHER Payers Date Payer Category Payer Self-pay [id number] 2023 Medicare (Managed Care) [employer]LE[employer]OWMAN [id number] 2021 Medicare [id number] 2021 Private Health Insurance [facility] [id number] 2013 Medicare [id number] 1996 Private Health Insurance [id number] Unknown [id number]. 462 Unknown [id number]. 462 Unknown [id number] [id number]. 462 Unknown [id number] [id number]. 462 Unknown [id number] [id number]. 462 Unknown [id number] [id number]. 462 Unknown [id number] [id number]. 462 Unknown [id number] 2.16840.1.003651.3.579.2. 462 Unknown [id number] [id number]. 462 Unknown [id number] [id number]. 462 Unknown [id number] [id number]. 462 Unknown [id number] 2.16.840.1.915631.3.579.2. 462 Unknown [id number] [id number]. 462 Unknown [id number] 2.16.840.1.146020.3.579.2. 462 Unknown [id number] 2.16.840.1.860169.3.579.2. 462 Unknown [id number] [id number]. 462 Unknown [id number] [id number]. 462 Unknown [id number]. 462 Social History Date Type Detail Facility Start: 11-22-2021 End: 12-05-2023 Tobacco smoking status [facility] Unknown if ever smoked [facility] Start: 01-14-2015 None [facility] Start: 09-25-2014 Spouse/ Significant Other [facility] Start: 07-22-2020 Non-smoker [facility] Start: 1950 Sex Assigned At Female [facility] Start: 07-24-2011 End: 02-18-2025 Tobacco smoking status OKIS Never smoked tobacco [facility] Start: 07-24-2011 Tobacco use and exposure Smokeless tobacco non-user [facility] Start: 04-03-2023 End: 02-18-2025 Alcohol intake Current drinker of alcohol (finding) [facility] Start: 03-31-2023 End: 04-03-2023 History of Social function [facility] Start: 03-31-2023 End: 04-03-2023 Social connection and isolation panel [facility] Do you belong to any clubs or organizations such as sabianism groups, unions, fraternal or athletic groups, or school groups? Yes [facility] Are you now , , , , never or living with a partner? [facility] How often to you hav e a drink containing alcohol? Monthly or less [facility] How many standard dr inks containing alcohol do you have on a typical day? 1 or 2 [facility] How often do you hav e 6 or more drinks on 1 occasion? Never [facility] How hard is it for y ou to pay for the very basics like food, housing, medical care, and heating Not hard at all [facility] Do you feel stress - tense, restless, nervous, or anxious, or unable to sleep at night because your mind is troubled all the time - these days [OSQ] Not at all [facility] (I/We) worried wheth er (my/our) food would run out before (I/we) got money to buy more. Never true [facility] In the past 12 month s, was there a time when you were not able to pay the mortgage or rent on time? No [facility] Start: 07-05-2015 Alcohol Comment Rarely [facility] Start: 1950 Sex Assigned At Not on file [facility] How often to you hav e a drink containing alcohol? 2-4 times a month [facility] Start: 12-23-2024 Sex Female (finding) [facility] Medical Equipment Procedure Code Equipment Code Equipment Origin al Text Equipment Identifier Dates Insertion, spinal cord stimulator, permanent GENERATOR FDA Start: 07-26-2020 Insertion, spinal cord stimulator, permanent LEAD KIT FDA Start: 07-26-2020 Insertion, spinal cord stimulator, permanent LEAD KIT FDA Start: 07-26-2020 Insertion, spinal cord stimulator, permanent GENERATOR FDA Start: 07-26-2020 Insertion, spinal cord stimulator, permanent LEAD KIT FDA Start: 07-26-2020 Insertion, spinal cord stimulator, permanent LEAD KIT FDA Start: 07-26-2020 Insertion, spinal cord stimulator, permanent GENERATOR FDA Start: 07-26-2020 Insertion, spinal cord stimulator, permanent LEAD KIT FDA Start: 07-26-2020 Insertion, spinal cord stimulator, permanent LEAD KIT FDA Start: 07-26-2020 Insertion, spinal cord stimulator, permanent GENERATOR FDA Start: 07-26-2020 Insertion, spinal cord stimulator, permanent LEAD KIT FDA Start: 07-26-2020 Insertion, spinal cord stimulator, permanent LEAD KIT FDA Start: 07-26-2020 Insertion, spinal cord stimulator, permanent GENERATOR FDA Start: 07-26-2020 Insertion, spinal cord stimulator, permanent LEAD KIT FDA Start: 07-26-2020 Insertion, spinal cord stimulator, permanent LEAD KIT FDA Start: 07-26-2020 Insertion, spinal cord stimulator, permanent GENERATOR FDA Start: 07-26-2020 Insertion, spinal cord stimulator, permanent LEAD KIT FDA Start: 07-26-2020 Insertion, spinal cord stimulator, permanent LEAD KIT FDA Start: 07-26-2020 Insertion, spinal cord stimulator, permanent GENERATOR FDA Start: 07-26-2020 Insertion, spinal cord stimulator, permanent LEAD KIT FDA Start: 07-26-2020 Insertion, spinal cord stimulator, permanent LEAD KIT FDA Start: 07-26-2020 Insertion, spinal cord stimulator, permanent GENERATOR FDA Start: 07-26-2020 Insertion, spinal cord stimulator, permanent LEAD KIT FDA Start: 07-26-2020 Insertion, spinal cord stimulator, permanent LEAD KIT FDA Start: 07-26-2020 Insertion, spinal cord stimulator, permanent GENERATOR FDA Start: 07-26-2020 Insertion, spinal cord stimulator, permanent LEAD KIT FDA Start: 07-26-2020 Insertion, spinal cord stimulator, permanent LEAD KIT FDA Start: 07-26-2020 Insertion, spinal cord stimulator, permanent GENERATOR FDA Start: 07-26-2020 Insertion, spinal cord stimulator, permanent LEAD KIT FDA Start: 07-26-2020 Insertion, spinal cord stimulator, permanent LEAD KIT FDA Start: 07-26-2020 Insertion, spinal cord stimulator, permanent GENERATOR FDA Start: 07-26-2020 Insertion, spinal cord stimulator, permanent LEAD KIT FDA Start: 07-26-2020 Insertion, spinal cord stimulator, permanent LEAD KIT FDA Start: 07-26-2020 Insertion, spinal cord stimulator, permanent GENERATOR FDA Start: 07-26-2020 Insertion, spinal cord stimulator, permanent LEAD KIT FDA Start: 07-26-2020 Insertion, spinal cord stimulator, permanent LEAD KIT FDA Start: 07-26-2020 Insertion, spinal cord stimulator, permanent GENERATOR FDA Start: 07-26-2020 Insertion, spinal cord stimulator, permanent LEAD KIT FDA Start: 07-26-2020 Insertion, spinal cord stimulator, permanent LEAD KIT FDA Start: 07-26-2020 Insertion, spinal cord stimulator, permanent GENERATOR FDA Start: 07-26-2020 Insertion, spinal cord stimulator, permanent LEAD KIT FDA Start: 07-26-2020 Insertion, spinal cord stimulator, permanent LEAD KIT FDA Start: 07-26-2020 CEMENT,BONE MYRANDA H 1/2 BATCH FDA Start: 06-07-2022 ([id number]) Coated knee femu r prosthesis ()[id number] FDA Start: 06-07-2022 ([id number]) Coated knee tibi a prosthesis ()[id number] FDA Start: 06-07-2022 ([id number]) Polyethylene pat anne prosthesis ()[id number] FDA Start: 06-07-2022 ([id number]) Tibial insert [id number] FDA Start: 06-07-2022 CEMENT,BONE MYRANDA H 1/2 BATCH FDA Start: 06-07-2022 CEMENT,BONE MYRANDA H 1/2 BATCH FDA Start: 06-07-2022 Cement Simplex P Bone Radiopaque Full Dose Sterile - [id number] Start: 06-19-2024 Cement Simplex P Bone Radiopaque Full Dose Sterile - [id number] Start: 06-19-2024 Cement Simplex P Bone Radiopaque Full Dose Sterile - [id number] Start: 06-19-2024 Cement Simplex P Bone Radiopaque Full Dose Sterile - [id number] Start: 06-19-2024 Cement Simplex P Bone Radiopaque Full Dose Sterile - [id number] Start: 06-19-2024 Cement Simplex P Bone Radiopaque Full Dose Sterile - [id number] Start: 06-19-2024 Triathlon Centra l Femoral Cone Augement Left Sz 3/ [id number] Start: 06-19-2024 Imp Knee Fem Bonifacio m Tri 9mm [id number] Start: 06-19-2024 Hinge Insert Siz e 3 X 16mm [id number] Start: 06-19-2024 Triathlon Hinge Femoral Component Size 4 Left [id number] Start: 06-19-2024 Triathlon Hinge Bumper 3deg [id number] Start: 06-19-2024 Triathlon Hinge Bushings And Axle Standard [id number] Start: 06-19-2024 Triathlon Hinge Tibial Bearing Component Sz 3/4 [id number] Start: 06-19-2024 Triathlon Revisi on Tibial Baseplate Sz 3 [id number] Start: 06-19-2024 Restrictor Mediu m Linden Cement Disposable Aoc Airspace Control Officer Distal - [id number] Start: 06-19-2024 Restrictor Mediu m [place]en Cement Disposable Aoc Airspace Control Officer Distal - [id number] Start: 06-19-2024 Stem Triathlon 1 2mm Cocr 100mm Femoral Cemented Total Stabilized Knee - [id number] Start: 06-19-2024 Augment Triathlo n B Cone Tritanium Tibial Symmetric Sterile Latex Free - [id number] Start: 06-19-2024 CEMENT,BONE MYRANDA H 1/2 BATCH FDA Start: 06-07-2022 CEMENT,BONE MYRANDA H 1/2 BATCH FDA Start: 06-07-2022 CEMENT,BONE MYRANDA H 1/2 BATCH FDA Start: 06-07-2022 CEMENT,BONE MYRANDA H 1/2 BATCH FDA Start: 06-07-2022 CEMENT,BONE MYRANDA H 1/2 BATCH FDA Start: 06-07-2022 Goals Date Patient Goal Desired Activity /State Functional Status Date Assessment Result Facility 09-26-2024 Functional status Bathroom Privilege [facility] Work Phone: 06-27-2024 Are you deaf, or do you have serious difficulty hearing No 06/27/2024 3:35 PM Sharon Mendoza, ROSEMARY No [facility] 06-27-2024 Are you blind, or do you have serious difficulty seeing, even when wearing glasses No 06/27/2024 3:35 PM Sharon Mendoza, ROSEMARY No [facility] 06-27-2024 Do you have serious difficulty walking or climbing stairs No 06/27/2024 3:35 PM Sharon Mendoza, ROSEMARY No [facility] 06-27-2024 Do you have difficul ty dressing or bathing No 06/27/2024 3:35 PM EDT Sharon Bass, ROSEMARY No [facility] 06-27-2024 Because of a physica l, mental, or emotional condition, do you have difficulty doing errands alone such as visiting a physician's office or shopping No 06/27/2024 3:35 PM EDT Sharon Bass, ROSEMARY No [facility] 06-08-2022 Functional status Ambulates;Bath room Privilege [facility] Work Phone: Mental Status Date Assessment Result Facility 09-26-2024 Cognitive function Voice/Name [facility] Work Phone: 06-27-2024 Because of a physica l, mental, or emotional condition, do you have serious difficulty concentrating, remembering, or making decisions No 06/27/2024 3:35 PM EDT Sharon Bass, ROSEMARY No [facility] 12-05-2023 Cognitive function Level Of Cons ciousness Awake;Alert;Appropriate;Fol lows Commands [facility] Work Phone: 06-08-2022 Cognitive function Level Of Cons ciousness Awake;Alert;Appropriate;Fol lows Commands [facility] Work Phone: 06-08-2022 Cognitive function Voice/Name [facility] Work Phone: Clinical Notes 05-27-2014 to 02-18-2025 Sima Gracia RT(R) - 02/18/2025 2:50 PM EDTMRakesh Li MD - 02/18/2025 2:39 PM EDT Note Date & Type Note Facility 02-18-2025 Discharge summary [facility] 02-18-2025 Radiology Diagnostic study note [facility] Imaging Services [address] [place], [place] [address] Chest PA and Lateral MR#: [id number] Acct: [id number] Name: LEOBARDO VALDEZ Rep #: [id number] From: Nury Cordero MD PCP: Dr. Aashish Bahena MD Status: RE G ER Study:Chest PA and Lateral Date of Exam: 02/18/25 Exam# [id number] Ordering Dr: Elenita Torres MD EXAM: XR Chest, 2 Views CLINICAL INDICATION: PRODUCTIVE COUGH, WHEEZING AND CHEST TIGHTNESS/HEA TECHNIQUE: Frontal and lateral views of the chest. COMPARISON: No relevant prior studies available. FINDINGS: LUNGS AND PLEURAL SPACES: Unremarkable. No consolidation. No pneumothorax. HEART: Unremarkable. No cardiomegaly. MEDIASTINUM: Unremarkable. Normal mediastinal contour. BONES/JOINTS: Unremarkable. No acute fracture. RAD/Chest PA and Lateral IMPRESSION: No acute cardiopulmonary process. Reading Location: [facility] CC: Dr. Aashish Bahena MD; Dr. Yoni Torres MD ~ Bakery Products Checker: Signed [facility] 02-18-2025 History of Present illness Narrative Radiology Service Progress Note PATIENT NAME: Leobardo Valdez DATE OF SERVICE: February 18, 2025 TIME: 2:41 PM PATIENT IDENTITY VERIFICATION COMPLETED USING TWO (2) IDENTIFIERS: Name and Date of confirmed by patient verbally. FALL SCREENING: Has the patient had 2 falls in the last year or 1 fall with injury or currently using an Ambulatory Assistive Device (Walker, Cane, Wheelchair, Crutches, etc.)? Yes, Patient High Risk for Falls What interventions were put in place to prevent falls during this visit? Offered Assistance with Transfers/Clothing and Instructed Patient to Remain Seated (Not on Exam Table) Until Exam PATIENT GENDER DATA: Assigned female at . status: : No status: NO. PATIENT RELEVANT IMPLANT DATA REVIEWED: Not Applicable PATIENT PRESENTS WITH AN IMPLANTABLE OR ATTACHED BANANA RIPENING ROOM SUPERVISOR: No RADIOLOGY DEPARTMENT: General X-ray: Exam(s) Completed: Chest X-Ray PERIPHERAL IV DATA: Not applicable SIGNED BY: RT Aleah(R) February 18, 2025 2:41 PM documented in this encounter [facility] 02-18-2025 Note [facility] 02-18-2025 Note [facility] 02-18-2025 History of Present illness Narrative [facility] Subjective Leobardo Valdez is a 74 year old female. Patient presents with: Cough: Chest congestion, wheezing x last night Patient presents with cough she has had for couple days. Since last night she has had increased chest congestion, shortness of breath, wheezing, and colored productive phlegm. She has an associated clear rhinorrhea and ache across the upper chest.. Denies fever, chills, headache, body aches, sore throat, change in baseline left leg edema (status post knee replacement, cleared from wound care today). She has tried lozenges and cold medicine for symptoms. Her has been recently ill and is still getting over his cough. She has no history of asthma, COPD, smoking, or pneumonia. She does have a past history of DVT. Cough Review of Systems Respiratory: Positive for cough. Objective BP 143/70 Pulse 77 Temp 36.8 C (98.3 F) Resp 18 Wt 79.8 kg (175 lb 14.8 oz) SpO2 97% BMI 33.24 kg/m Physical Exam Constitutional: General: She is not in acute distress. Appearance: She is not toxic-appearing. HENT: Right Ear: Tympanic membrane and ear canal normal. Left Ear: There is impacted cerumen. Nose: No congestion. Mouth/Throat: Mouth: Mucous membranes are moist. Pharynx: No oropharyngeal exudate or posterior oropharyngeal erythema. Eyes: Extraocular Movements: Extraocular movements intact. Conjunctiva/sclera: Conjunctivae normal. Pupils: Pupils are equal, round, and reactive to light. Cardiovascular: Rate and Rhythm: Normal rate and regular rhythm. Heart sounds: No murmur heard. Pulmonary: Breath sounds: Wheezing and rales present. Comments: Mild increased work of breathing at rest. Bilateral diffuse wheezing with crackles. Musculoskeletal: Cervical back: No rigidity or tenderness. Right lower leg: No edema. Left lower leg: Edema (1+) present. Lymphadenopathy: Cervical: No cervical adenopathy. Neurological: Mental Status: She is alert. {ASSESSMENT/PLAN: 1. Acute cough - ICD9: 786.2, ICD10: R05.1 (primary diagnosis) 2. Wheezing - ICD9: 786.07, ICD10: R06.2 3. Chest pain, unspecified type - ICD9: 786.50, ICD10: R07.9 - XR CHEST 2V FRONTAL/LAT 1. No radiographic evidence of acute cardiopulmonary process. 2. Moderately large hiatal hernia. Patient with cough, dyspnea, chest ache, abnormal lung sounds but without history of reactive airway disease/COPD or constitutional symptoms of infection. Suspect bronchitis however differential includes CHF secondary to acute coronary syndrome or pulmonary embolism. Her will take her to the ER for further evaluation. Report called to [facility] ED. Rakesh Lopez MD Differential Diagnoses - bronchitis is more likely for the following reason(s): productive cough - CHF is more likely for the following reason(s): chest pain, dyspnea, lack of constitutional symptoms Management Management of the patient was discussed with:ED Physician or Supervisory/Collaborating Physician Discussion with ED Physician or Supervisory/Collaborating Physician included: [facility] ED Dr Torres Procedures documented in this encounter [facility] 02-18-2025 Discharge summary Note Date/Time February 18, 2025 10:17pm [facility] Medical Records Department [address] [place] [id number] Emergency Department Summary 02/18/25 MR#: [id number] Acct: [id number] Name: LEOBARDO VALDEZ Rep #:[id number] : 1950 74 From: Yoni Torres MD PCP: Dr. Aashish Bahena MD Status:RE G ER Location: ED HPI History of Present Illness Chief Complaint: Shortness of Breath Detail of Chief Complaint: Patient with shortness of breath and chest pressure for the past 3 days. Informant: patient, spouse/S.O. and PCP (Dr. Lopez was called prior to arrival. He is concerned that she may have more than just a upper respiratory infection.) Onset/Context/Timing Onset: Days Context: Sudden Onset Timing: Continuous (The dyspnea is continuous.) and Intermittent (The wheezing and chest pressure has been intermittent.) Quality: Pressure Location: Right side of the sternum Current Severity: Mild Maximum Severity: Moderate Worsened by: Activity Relieved by: Rest Associated Symptoms Associated Symptoms: Cough productive of colored sputum, wheezing, chills Narrative Narrative: Patient is a 74-year-old woman. She has been sick for the last 3 days. Husbandhad to supplement and make corrections. She denies documented fever. She denies headache, visual, ocular auditory symptoms. Her cough is productive of colored thick sputum. She also reports wheezing, dyspnea on exertion with discomfort with exertion. She denies history of PE. She has history of DVT. She denies leg pain, swelling discoloration. She denies abdominal pain, nausea, vomiting or diarrhea. She denies dysuria, frequency, urgency or hematuria. She denies back or flank pain. 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 Dehiscence of incision History of revision of total replacement of left knee joint Wears glasses Alcohol use History of steroid therapy Bladder disease Neuropathy Back pain Dietary restriction History of pain when walking Pain Myasthenia gravis Ambulates with cane Rheumatoid arthritis Low iron History of DVT (deep vein thrombosis) Hyperlipemia Difficulty swallowing History of hiatal hernia Gastric reflux Non-smoker Shortness of breath on exertion Chronic cough PONV (postoperative nausea and vomiting) Leg cramps History of edema History of stress test Hypertension Thyroid disease Cataracts, bilateral History of UTI Arthritis Home Medications ?Medication ?Instructions ?Recorded ?Last Taken ?Type folic acid 1 mg tablet 1 mg PO DAILY supplement 06/06/22 History atorvastatin 10 mg tablet 5 mg PO .QOD Cholesterol 06/26/24 18:45 History cholecalciferol (vitamin D3) 50 50 mcg PO DAILY supple ment 09/06/21 06/27/24 History mcg (2,000 unit) capsule ascorbic acid (vitamin C) 500 mg 500 mg PO DAILY suppl ement 02/06/22 06/27/24 History tablet (Vitamin C) hydrochlorothiazide 12.5 mg tablet 12.5 mg PO DAILY Bl ood pressure 06/07/22 Unknown History vibegron 75 mg tablet (Gemtesa) 75 mg PO DAILY Overact cassidy bladder 12/04/22 Unknown History metformin 500 mg tablet,extended 1,000 mg PO BID Diabe freda 06/27/24 06/27/24 05:30 History release 24 hr polysaccharide iron complex 150 mg 65 mg PO QODAY Supp lement 06/27/24 Unknown History iron capsule (Ferrex) losartan 100 mg tablet 100 mg PO DAILY bp 30 days # 30 tabs 07/15/24 Unknown Rx oxycodone 5 mg tablet 5 - 10 mg (1 - 2 x 5 mg) PO Q4H 07/15/24 Unknown Rx PRN PRN Pain Score 4-10 7 days #84 tabs potassium chloride 20 mEq 20 meq PO DAILYCM supplement 30 07/15/24 Unknown Rx tablet,extended release(part/cryst) days #30 tabs arginine 7 gram-glutam 7 1 packet PO DAILY supplement 09/24/24 Unknown History gram-CaHMB 1.5 [id number] oral pwd pkt (Shwetha (with collagen)) ciprofloxacin HCl 500 mg tablet 500 mg PO BID #30 tabs 01/20/25 Unknown Rx dapagliflozin propanediol 10 mg 10 mg PO QDAY 02/03/25 Unknown History tablet (Farxiga) levothyroxine 100 mcg tablet 100 mcg PO QDAY 02/03/25 Unknown History pregabalin 100 mg capsule 100 mg PO TID 02/03/25 Unkno wn History pyridostigmine bromide 60 mg tablet 60 mg PO BID #180 tabs 02/03/25 Unknown Rx doxycycline monohydrate 100 mg 100 mg PO BID #14 CAPSU LES 02/18/25 Unknown Rx capsule prednisone 20 mg tablet 60 mg (3 x 20 mg) PO DAILY # 12 02/18/25 Unknown Rx TABLETS Allergy/AdvReac Type Severity Reaction Status Date / Time latex Allergy Severe Other Verified 02/18/25 15:31 shellfish derived Allergy Severe PASSED Verified 02/18/25 15:31 OUT, DIARRHEA adhesive Allergy Mild Rash Verified 02/18/25 15:31 levofloxacin AdvReac Intermediate WEAK, Verified 02/18/25 15:31 NAUSEA povidone AdvReac Mild Hives Verified 02/18/25 15:31 Surgical History Status post total left knee replacement History of bilateral cataract extraction History of colonoscopy S/P insertion of spinal cord stimulator History of partial thyroidectomy History of appendectomy History of left knee surgery History of hysterectomy History of cholecystectomy Social History household members: spouse housing: house Smoking Status: Never smoker Electronic Cigarette Use: not used second hand exposure: No alcohol intake: current alcohol intake frequency: a few times a month Alcohol type: wine substance use type: does not use ROS ROS ED Constitutional Constitutional ED: Reports chills; Denies fever(s), subjective or sweats Eyes Eyes: Denies blurry vision or change in vision ENT ENT ED: Denies ear pain, rhinorrhea or sore throat Cardiovascular Cardiovascular: Reports chest pain; Denies orthopnea, palpitations, paroxysmal nocturnal dyspnea or racing heartbeat Respiratory/Chest Respiratory/Chest: Reports cough, dyspnea, dyspnea on exertion and sputum; Denies orthopnea or paroxysmal nocturnal dyspnea Gastrointestinal Gastrointestinal: Denies abdominal pain, diarrhea, nausea or vomiting Genitourinary Genitourinary ED: Denies dysuria, hematuria or urinary frequency Musculoskeletal Musculoskeletal: Denies arthralgias or myalgias Integumentary Denies rash Neurologic Neurologic: Reports weakness; Denies headache(s) or paresthesias Hematologic/Lymphatic Hematologic/Lymphatic: Reports systems reviewed and no addt'l complaints, exceptas documented EXAM Physical Exam Const Vital Signs: 02/18/25 15:31 02/18/25 15:34 02/18/25 15:34 Temperature 98.2 F 98.3 F Temperature Source Oral Oral Pulse Rate 92 81 Respiratory Rate 16 19 H Respiratory Effort Normal Short of Breath Respiratory Pattern Blood Pressure 104/78 131/78 H Blood Pressure Mean 86 95 Pulse Ox 97 97 Oxygen Delivery Method Room Air Room Air Room Air 02/18/25 16:00 02/18/25 16:34 02/18/25 17:30 Temperature 98 F Temperature Source Oral Pulse Rate 88 80 78 Respiratory Rate 17 19 H 19 H Respiratory Effort Respiratory Pattern Normal Blood Pressure 135/87 H 134/70 H Blood Pressure Mean 103 91 Pulse Ox 98 93 Oxygen Delivery Method Room Air 02/18/25 19:00 02/18/25 21:00 Temperature Temperature Source Pulse Rate 78 77 Respiratory Rate 16 20 H Respiratory Effort Respiratory Pattern Blood Pressure 128/78 H 137/60 H Blood Pressure Mean 94 85 Pulse Ox 93 96 Oxygen Delivery Method Room Air Positive well nourished and well developed Constitutional Narrative: BMI is 33.1. Patient's initial vital signs are unremarkable. She is not hypoxic. General Appearance ED: well developed; Negative for pallor HEENT Reports moist mucous membranes HEENT Narrative: Head is atraumatic normocephalic. Ears normal. Nares patent. Posterior pharynx normal. Uvula midline. No deviation of the tongue with protrusion. Eyes PERRL and EOMs intact bilaterally General Eye ED: Negative for pale conjunctiva or scleral icterus Neck no lymphadenopathy, supple and no JVD Chest Wall inspection of chest normal Resp normal respiratory effort and No clear to auscultation bilaterally Auscultation: rales left base, wheezes expiratory wheezes and scattered wheezes and diminished lung sounds bilateral lower Cardio regular rate, regular rhythm, S1 normal heart sound and S2 normal heart sound GI normal to inspection, nondistended, normoactive bowel sounds, non-tender, non-distended and no masses; Negative for hepatosplenomegaly Back/Spine no CVA tenderness Extremity normal to inspection Extremity Narrative: There is no asymmetry, swelling, discoloration, leg vein distention, palpable cords or tenderness along the distribution of the deep venous system. Neuro oriented x3 and CN's II-XII intact bilaterally Sensorium / Orientation: alert Psych mental status grossly normal Skin no rashes or lesions noted, no wounds and skin turgor normal General Skin Exam: elasticity normal; Negative for jaundice or pallor MDM MDM MDM Narrative Medical decision making narrative: Differential diagnosis would include atypical pneumonia, commune acquired pneumonia, hyperactive airway due to bacterial viral infection, history and physical is not consistent with PE. Because she describes pressure and exertional symptoms need to rule out cardiac etiology. Sepsis cardiac workup was undertaken. Patient does have risk factors for cardiac disease. Also need to assess blood sugar since she has history of diabetes and has an infection. History & Record Review Additional record(s) reviewed:: Prior inpatient record (Patient was admitted in September for hyperglycemia, hypokalemia and cellulitis of the left lower extremity. This was related to her knee surgery.), Prior outpatient record (Patient has been followed in the wound clinic by Dr. Anthony Esquivel for dehiscenceof knee incision. She was just released according the .), Prior ED visitand Prior labs Lab Data Attestation: I reviewed the patient's lab results. Lab results narrative: CBC is unremarkable. Comprehensive metabolic panel is remarked for an elevated glucose of 129 with normal CO2 anion gap. BUN/creatinine ratio is elevated at 21-1. First troponin was 20. Second troponin was 17. Lactate is normal. Transaminases are normal. Labs: Laboratory Results - last 24 hr 02/18/25 02/18/25 02/18/25 15:39 15:58 17:28 WBC 6.8 RBC 5.15 Hgb 13.4 Hct 42.2 MCV 81.9 MCH 26.0 L MCHC 31.8 L RDW Std Deviation 49.7 H RDW Coeff of April 16.9 H Plt Count 302 MPV 10.8 Immature Gran % (Auto) 0.400 Neut % (Auto) 55.4 Lymph % (Auto) 18.3 L [place] % (Auto) 14.0 H Eos % (Auto) 10.1 H Baso % (Auto) 1.8 H Absolute Neuts (auto) 3.8 Absolute Lymphs (auto) 1.25 Nucleated RBC % 0 Sodium 138 Potassium 4.2 Chloride 103 Carbon Dioxide 23.6 Anion Gap 12 BUN 17 Creatinine 0.78 Estim Creat Clear Calc 57.07 Est GFR (MDRD) Non-Af 79 BUN/Creatinine Ratio 21.4 H Glucose 129 H Lactic Acid 1.6 Calcium 9.7 Total Bilirubin 0.26 AST 24 ALT 10 Alkaline Phosphatase 103 Troponin T High Sens 20 H Troponin T Hi Sens 2 Hr 17 H Troponin T Hi Sens 4Hr Total Protein 7.5 Albumin 4.3 Globulin 3.3 Albumin/Globulin Ratio 1.3 02/18/25 20:21 WBC RBC Hgb Hct MCV MCH MCHC RDW Std Deviation RDW Coeff of April Plt Count MPV Immature Gran % (Auto) Neut % (Auto) Lymph % (Auto) [place] % (Auto) Eos % (Auto) Baso % (Auto) Absolute Neuts (auto) Absolute Lymphs (auto) Nucleated RBC % Sodium Potassium Chloride Carbon Dioxide Anion Gap BUN Creatinine Estim Creat Clear Calc Est GFR (MDRD) Non-Af BUN/Creatinine Ratio Glucose Lactic Acid Calcium Total Bilirubin AST ALT Alkaline Phosphatase Troponin T High Sens Troponin T Hi Sens 2 Hr Troponin T Hi Sens 4Hr 17 H Total Protein Albumin Globulin Albumin/Globulin Ratio 4-hour troponin 17. Radiography Chest X-Ray - ED: 2 View and Read by ED Physician (There is no acute cardiopulmonary pathology. There is minimal chronic lung parenchymal changes. Cardiac silhouette size normal. Patient does have a hiatal hernia. Osseous structures reveal no acute process.) Diagnostic Testing: Clinical Impression(s) from Imaging Studies Chest X-Ray 02/18/25 15:51 IMPRESSION: No acute cardiopulmonary process. Reading Location: [facility] EKG Initial EKG: Attestation: I personally reviewed and interpreted this EKG as follows: Interpretation: Sinus Rhythm (Rate is 75. Patient has a MT interval of 154 ms. Cures duration 6 6 ms. QT duration of 160 ms. Ralston is normal. There is no acute ischemic changes even though the computer is reading cannot rule outanterior [place]. I am in disagreement.) Discharge Plan Triage Chief Complaint: Shortness of Breath ED Provider: Yoni Torres Dx/Rx/DC Orders Clinical Impression: Bronchitis, purulent, chronic, HTN (hypertension), Hyperlipemia, Diabetes, Acute bronchospasm, Chest pressure Instructions: ED Bronchitis with Wheezing (Adult) Prescriptions: New prednisone 20 mg tablet 60 mg PO DAILY Qty: 12 0RF doxycycline monohydrate 100 mg capsule 100 mg PO BID Qty: 14 0RF No Action cholecalciferol (vitamin D3) 50 mcg (2,000 unit) capsule 50 mcg PO DAILY Gemtesa 75 mg tablet 75 mg PO DAILY levothyroxine 100 mcg tablet 100 mcg PO QDAY dapagliflozin propanediol [Farxiga] 10 mg tablet 10 mg PO QDAY pregabalin 100 mg capsule 100 mg PO TID pyridostigmine bromide 60 mg tablet 60 mg PO BID Qty: 180 1RF folic acid 1 MG tablet 1 mg PO DAILY Patient Comments: SUPPLEMENT atorvastatin 10 mg tablet 5 mg PO .QOD ascorbic acid (vitamin C) [Vitamin C] 500 mg Tablet 500 mg PO DAILY hydrochlorothiazide 12.5 mg tablet 12.5 mg PO DAILY metformin 500 mg tablet extended release 24 hr 1,000 mg PO BID polysaccharide iron complex [Ferrex 150] 150 mg iron capsule 65 mg PO QODAY potassium chloride 20 mEq Tablet,Er Particles/Crystals 20 meq PO DAILYCM 30 Days Qty: 30 0RF losartan 100 mg Tablet 100 mg PO DAILY 30 Days Qty: 30 0RF oxycodone 5 mg Tablet 5 - 10 mg PO Q4H PRN PRN (Reason: Pain Score 4-10) 7 Days Qty: 84 0RF Shwetha (with collagen) 7-7-1.5 gram Powder In Packet 1 packet PO DAILY ciprofloxacin HCl 500 mg tablet 500 mg PO BID Qty: 30 0RF Primary Care Provider: Aashish Bahena Referrals: Aashish Bahena MD [Primary Care Provider] - 3-5 Days Print Language: Uruguayan Disposition Disposition: Home, Self Care What to do if you have Problems For any increased pain, shortness of breath, bleeding, nausea or vomiting, chestpain, or any unexpected problems, contact your Primary Care Provider. Call [facility] ([phone]) or report to the closest Emergency Room. Call 911 if necessary. 02/18/252216 <Electronically signed by Yoni Torres MD> Cosigner Signature (if applicable): CC: Dr. Aashish Bahena MD ~ Signed [facility] Work Phone: [phone] History and physical note Author Anthony Esquivel [facility] Note Date/Time February 04, 2025 7:16p m [facility] [address] [place] [id number] H&P Exam - Wound Care 02/04/25 1907 MR#: [id number] Acct: [id number] Name: LEOBARDO VALDEZ Rep #:[id number] : 1950 74 From: Anthony Ortega PCP: Dr. Aashish Bahena MD Status:RE G RCR Location: History of Present Illness Date of Service: 02/04/25 Chief Complaint: Dehiscent, necrotic surgical wound of the left knee History of Wound: This is a 74-year-old female with a history of left total kneereplacement many years ago, which has required several revisions. The most recent revision was performed on June 19, 2024, at the [facility]. This was the fourth left knee revision. Prior revisions required flap reconstruction, and the Plastic Surgery service was involved in the patient's most recent surgery. Postoperatively, the patient was placed on oral doxycycline, which is expected to continue for 3 months. The patient's left lower extremity was locked in extension for 2 weeks. She is now weightbearing on the involved limb. She was admitted to the Transitional Care Unit at [facility] for several weeks postoperatively on June 27, 2024. She has returned to home, with under water assistant care from her . The patient developed a surgical wound dehiscence and marjorie necrosis and gangrene at the site of her incision. A wound VAC was used initially at the surgical site, but the patient had been using Xeroform more recently. The patient suffers from multiple pre-existing medical conditions, listed herein. She does not smoke. She is using Shwetha as a nutritional supplement. Her BMI is 34.2. 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 Dehiscence of incision History of revision of total replacement of left knee joint Wears glasses Alcohol use History of steroid therapy Bladder disease Neuropathy Back pain Dietary restriction History of pain when walking Pain Myasthenia gravis Ambulates with cane Rheumatoid arthritis Low iron History of DVT (deep vein thrombosis) Hyperlipemia Difficulty swallowing History of hiatal hernia Gastric reflux Non-smoker Shortness of breath on exertion Chronic cough PONV (postoperative nausea and vomiting) Leg cramps History of edema History of stress test Hypertension Thyroid disease Cataracts, bilateral History of UTI Arthritis Home Medications ?Medication ?Instructions ?Recorded ?Last Taken ?Type folic acid 1 mg tablet 1 mg PO DAILY supplement 06/06/22 History atorvastatin 10 mg tablet 5 mg PO .QOD Cholesterol 06/26/24 18:45 History cholecalciferol (vitamin D3) 50 50 mcg PO DAILY supple ment 09/06/21 06/27/24 History mcg (2,000 unit) capsule ascorbic acid (vitamin C) 500 mg 500 mg PO DAILY suppl ement 02/06/22 06/27/24 History tablet (Vitamin C) hydrochlorothiazide 12.5 mg tablet 12.5 mg PO DAILY Bl ood pressure 06/07/22 Unknown History vibegron 75 mg tablet (Gemtesa) 75 mg PO DAILY Overact cassidy bladder 12/04/22 Unknown History metformin 500 mg tablet,extended 1,000 mg PO BID Diabe freda 06/27/24 06/27/24 05:30 History release 24 hr polysaccharide iron complex 150 mg 65 mg PO QODAY Supp lement 06/27/24 Unknown History iron capsule (Ferrex) losartan 100 mg tablet 100 mg PO DAILY bp 30 days # 30 tabs 07/15/24 Unknown Rx oxycodone 5 mg tablet 5 - 10 mg (1 - 2 x 5 mg) PO Q4H 07/15/24 Unknown Rx PRN PRN Pain Score 4-10 7 days #84 tabs potassium chloride 20 mEq 20 meq PO DAILYCM supplement 30 07/15/24 Unknown Rx tablet,extended release(part/cryst) days #30 tabs arginine 7 gram-glutam 7 1 packet PO DAILY supplement 09/24/24 Unknown History gram-CaHMB 1.5 [id number]-min oral pwd pkt (Shwetha (with collagen)) ciprofloxacin HCl 500 mg tablet 500 mg PO BID #30 tabs 01/20/25 Unknown Rx dapagliflozin propanediol 10 mg 10 mg PO QDAY 02/03/25 Unknown History tablet (Farxiga) levothyroxine 100 mcg tablet 100 mcg PO QDAY 02/03/25 Unknown History pregabalin 100 mg capsule 100 mg PO TID 02/03/25 Unkno wn History pyridostigmine bromide 60 mg tablet 60 mg PO BID #180 tabs 02/03/25 Unknown Rx Allergy/AdvReac Type Severity Reaction Status Date / Time latex Allergy Severe Other Verified 02/03/25 14:06 shellfish derived Allergy Severe PASSED Verified 02/03/25 14:06 OUT, DIARRHEA adhesive Allergy Mild Rash Verified 02/03/25 14:06 levofloxacin AdvReac Intermediate WEAK, Verified 02/03/25 14:06 NAUSEA povidone AdvReac Mild Hives Verified 02/03/25 14:06 Surgical History Status post total left knee replacement History of bilateral cataract extraction History of colonoscopy S/P insertion of spinal cord stimulator History of partial thyroidectomy History of appendectomy History of left knee surgery History of hysterectomy History of cholecystectomy Social History household members: spouse Smoking Status: Never smoker Electronic Cigarette Use: not used second hand exposure: No alcohol intake: current alcohol intake frequency: a few times a month Alcohol type: wine substance use type: does not use Vital Signs Vital Signs Vital Signs: 02/04/25 14:13 Temperature 96.7 F L Temperature Source Temporal Respiratory Rate 16 Oxygen Delivery Method Room Air Weight Weight: 180 lb 13.313 oz Body Mass Index (BMI) 34.1 Physical Exam Const alert, oriented x3, no apparent distress, no limitations and healthy appearing Constitutional Narrative: The patient's BMI is 34.2. General Appearance: cooperative, comfortable, well kempt and well developed Orientation / Consciousness: awake, oriented to person, oriented to place and oriented to time Exam Limitations: no limitations HEENT normocephalic and head/scalp atraumatic Head and Scalp: normal to inspection, normocephalic and atraumatic Face and Sinus: normal facial exam Nose: external nose normal External Ear: external ears normal Eyes EOMs intact bilaterally General Eye: normal appearance of both eyes Neck full ROM General: normal visual inspection Resp normal respiratory effort, normal air movement, no retractions and no use of accessory muscles Effort and Inspection: able to speak in complete sentences Skin Wounds: wounds noted Wound Narrative: The patient's left total knee replacement incision is healed and well- approximated. However, an open wound remains medial to the healed vertical kneeincision. Since the patient's last visit, there has been improvement, with a decrease in size of the remaining wound. Unlike recent visits, there is no visible suture extruding from the base of the wound. The wound is smaller in size. Dimensions are documented elsewhere. Wound margins are well beveled. The base of the wound is generally pink and healthy in appearance, with active granulation tissue. There is no sign of infection or cellulitis. There is no drainage or odor. No fluctuance is noted. Hair: normal Neuro oriented x3, CN's II-XII intact bilaterally, moves all extremities, no focal motor deficits and no sensory deficits noted Sensorium / Orientation: awake, alert, oriented to person, oriented to place andoriented to time Speech: speech normal Psych mental status grossly normal, cooperative, affect normal, speech normal and activity/motor behavior normal Appearance: grossly normal Speech: normal speech Thought Content: normal thought content Judgement: judgement good Debridement Note Debridement Note Wound debrided: Chronic, nonhealing left knee surgical wound Laterality: Left Type of Debridement: Excisional debridement Anesthesia Used: 5% Lidocaine Gel and Cetacaine Depth: in the subcutaneous layer Percentage of wound debrided: 100 Instrument Used: 3mm curette Tissue Removed: Bioburden Severity: Fat Layer Exposed Amount of bleeding with debridement: Mild Bleeding Controlled with: Compression and gauze Patient tolerated procedure: Patient tolerated procedure well Post-Debridement Measurements and Additional Note: Post-Debridement Measurements/Treatment - Nurse 1 - General Ulcer Assessment Start: 01/28/25 13:37 Freq: Status: Active Protocol: KENNY Activity Type Activity Date Activity User E-sign Co-sign Detail Recorded Client Recorded Date Recorded By Document 01/28/25 13:37 [facility] [id number] 01/28/25 13:42 [facility] Document 02/04/25 14:13 KW [id number] 02/04/25 14:22 KW 01/28/25 02/04/25 13:37 14:13 - Today's Visit Information Type of service Follow-up Visit Follow-up Visit (Physician/OPENING MACHINE CLEANER (Physician/OPENING MACHINE CLEANER ) ) Arrival Mode Ambulatory Ambulatory,Cane Transfer Assistance None Accompanied by Patient Identification Verified (Name & Yes Yes ) Patient Requires Transmission-Based No Precautions Height and Weight Body Mass Index (BMI) 34.1 34.1 BMI Classification Obese Obese Vital Signs Temperature (97.8 F-99.1 F) 97.3 F L 96.7 F L Temperature Source Temporal Temporal Pulse Rate (60-100) 75 Pulse Location Monitor Respiratory Rate (12-18) 16 16 Respiratory rate source Observation Observation Oxygen Delivery Method Room Air Room Air Blood Pressure (90/60-120/80) 148/70 H Blood Pressure Mean 96 Source Monitor Position Sitting Blood Pressure Location Left Arm History Since Last Visit- (Skip if this is Patient's initial visit) Have you changed medications since your No No last visit? Any new allergies or adverse reactions No No Had a fall/change in ADL's that may No No increase risk of falls Signs or symptoms of abuse and/or No No neglect since last visit Have you been in the hospital since your No No last visit? Has dressing in place as prescribed Yes Yes Has compression in place as prescribed Yes Yes Has offloadiing in place as prescribed N/A N/A Experienced any changes in pain level or No No management Left Footwear Regular Shoe Regular Shoe Right Footwear Regular Shoe Regular Shoe Pain Scale: 0-10 Numeric Is Patient Pain Free? Yes Yes [facility] Nurse 1 - General Ulcer Measurement Start: 01/28/25 13:37 Freq: Status: Active Protocol: Activity Type Activity Date Activity User E-sign Co-sign Detail Recorded Client Recorded Date Recorded By Document 01/28/25 13:37 [facility] [id number] 01/28/25 13:42 [facility] Document 02/04/25 14:13 [id number] 02/04/25 14:22 01/28/25 02/04/25 13:37 14:13 Wound Center Nurse 1 #1,.L knee -Combined with other wound No -Current Size (cm) - Length 0.9 0.1 -Current Size (cm) - Width 0.5 0.1 -Current Size (cm) - Depth 0.4 0 -Total Square Cm 0.45 0.01 -Date of Last Picture (Recall this 01/28/25 field) -Photo Taken Yes -Epithelialization Small 1-33% -Tunneling No -Undermining/Tunneling No -Circular Undermining No -Exudate Amt Medium None Present -Exudate Type Serosanguineous -Wound Margin Distinct, Outline Attached -Granulation Amt Medium (34-66%) None Present (0 %) -Granulation Quality Red -Slough/Fibrin Yes -Necrosis Amt Medium (34-66%) Large (67-100%) -Necrotic Tissue Type Adherent Slough Adherent Slough -Texture (Anali-wound Skin Appearance) Assessed Assessed -Moisture (Anali-wound Skin Appearance) Assessed Assessed -Color (Anali-wound Skin Appearance) Assessed Assessed -Temperature (Anali-wound Skin No Abnormality No Abnormality Appearance) (Pt Warm) (Pt Warm) -Tenderness on Palpation (Anali-wound No No Skin Appearance) -Ulcer Cleansing Rinsed/ Soap and Water Irrigated with Saline -Foul Odor after Cleansing No No -Anesthetic Used 5% Lidocaine 5% Lidocaine Gel Gel WC - Nurse 2 - General Ulcer CM Notes Start: 01/28/25 13:37 Freq: Status: Active Protocol: Activity Type Activity Date Activity User E-sign Co-sign Detail Recorded Client Recorded Date Recorded By Document 01/28/25 13:57 [id number] 01/28/25 14:03 Document 02/04/25 15:27 [id number] 02/04/25 15:29 01/28/25 02/04/25 13:57 15:27 Wound Center Nurse 2 #1,.L knee -Time 13:58 15:27 -Correct Patient Yes Yes -Correct Side, Site, Position Yes Yes -Correct Procedure Yes Yes -Procedure Performed Yes Yes -Type of Procedure Debridement Debridement -Clinical Debridement Subcutaneous Subcutaneous -Tissue Removed Subcutaneous Subcutaneous -Post Debridement (cm) - Length 0.8 0.4 -Post Debridement (cm) - Width 0.6 0.3 -Post Debridement (cm) - Depth 0.2 0.1 -Total Square (Post) (cm) 0.48 0.12 -Area of Debridement (cm) - Length 0.8 0.4 -Area of Debridement (cm) - Width 0.6 0.3 -Total Square (Area) (cm) 0.48 0.12 -Tunneling No No -Undermining/Tunneling No No -Circular Undermining No No -Wound/Ulcer Outcome Not Healed Not Healed -Ulcer Cleansing Not Cleansed Not Cleansed -Foul Odor after Cleansing No No -Bioengineered Tissue No No -Bleeding Controlled with Pressure Pressure -Treatment Response Procedure Procedure Tolerated Well Tolerated Well -Offloading No No -Debridement - Subq, 1st 20sq cm Yes Yes Pain Scale: 0-10 Numeric Is Patient Pain Free? Yes Yes - Nurse 3 - General Ulcer D/C NN Start: 01/28/25 13:37 Freq: Status: Active Protocol: Activity Type Activity Date Activity User E-sign Co-sign Detail Recorded Client Recorded Date Recorded By Document 01/28/25 14:18 DL [id number] 01/28/25 14:19 DL Document 02/04/25 15:38 [facility] [id number] 02/04/25 15:39 [facility] 01/28/25 02/04/25 14:18 15:38 Wound Care Center Nurse 3 #1,.L knee -Ulcer Cleansing Rinsed/ Rinsed/ Irrigated with Irrigated with Saline Saline -Foul Odor after Cleansing No No -Primary Dressing Applied Aquacel Extra -Other Dressing hydrogel -Primary Dressing Covered/Secured with Dry Gauze & Dry Gauze & Roll Gauze, Roll Gauze, Secured with Secured with Tape Tape -Other Covering vikas -Aquacel Extra 1 left knee -Compression Wrap Vikas Wrap Treatment Response Procedure Tolerated Well Pain Scale: 0-10 Numeric Is Patient Pain Free? Yes Yes - Visit Discharge Discharge Condition Stable Stable Ambulatory Status Ambulatory Ambulatory,Cane Transportation Private Auto Private Auto Charges/Coding Procedures Integumentary [id number]: [id number] [place] subq tissue 20 sq cm/< Assessment/Plan Assessment/Plan (1) Dehiscence of incision: CODE(S): T81.31XA - Disruption of external operation (surgical) wound, notelsewhere classified, initial encounter QUALIFIERS: Encounter type: subsequent encounter Qualified Code(s): T81.31XD - Disruption of external operation (surgical) wound, not elsewhere classified, subsequent encounter (2) Non-pressure chronic ulcer of left thigh with fat layer exposed: CODE(S): L97.122 - Non-pressure chronic ulcer of left thigh with fat layerexposed (3) Diabetes: CODE(S): E11.9 - Type 2 diabetes mellitus without complications QUALIFIERS: Diabetes mellitus type: type 2 Diabetes mellitus prison insulin use: with long term care administrator use Diabetes mellitus complication status: without complication Qualified Code(s): E11.9 - Type 2 diabetes mellitus without complications; Z79.4 - MCFP (current) use of insulin (4) Status post total left knee replacement: CODE(S): Z96.652 - Presence of left artificial knee joint (5) History of revision of total replacement of left knee joint: CODE(S): Z96.652 - Presence of left artificial knee joint (6) History of left knee surgery: CODE(S): Z98.890 - Other specified postprocedural states (7) History of bilateral cataract extraction: CODE(S): Z98.41 - Cataract extraction status, right eye; Z98.42 - Cataractextraction status, left eye (8) History of hiatal hernia: CODE(S): Z87.19 - Personal history of other diseases of the digestive system (9) History of cholecystectomy: CODE(S): Z90.49 - Acquired absence of other specified parts of digestive tract (10) History of hysterectomy: CODE(S): Z90.710 - Acquired absence of both cervix and uterus (11) History of appendectomy: CODE(S): Z90.49 - Acquired absence of other specified parts of digestive tract (12) Diabetic polyneuropathy: CODE(S): E11.42 - Type 2 diabetes mellitus with diabetic polyneuropathy (13) GERD (gastroesophageal reflux disease): CODE(S): K21.9 - Gastro-esophageal reflux disease without esophagitis (14) Iron deficiency anemia: CODE(S): D50.9 - Iron deficiency anemia, unspecified (15) Hyperlipemia: CODE(S): E78.5 - Hyperlipidemia, unspecified (16) Essential (primary) hypertension: CODE(S): I10 - Essential (primary) hypertension (17) Status post total right knee replacement: CODE(S): Z96.651 - Presence of right artificial knee joint (18) Osteoarthritis: (19) History of DVT (deep vein thrombosis): CODE(S): Z86.718 - Personal history of other venous thrombosis and embolism (20) HTN (hypertension): CODE(S): I10 - Essential (primary) hypertension (21) Dyslipidemia: CODE(S): E78.5 - Hyperlipidemia, unspecified (22) Hypothyroidism: CODE(S): E03.9 - Hypothyroidism, unspecified (23) Ocular myasthenia gravis: CODE(S): G70.00 - Myasthenia gravis without (acute) exacerbation PLAN: Plan This is a 74-year-old female who underwent the fourth revision of a left total knee replacement on June 19, 2024. She developed gangrene, necrosis, and dehiscence at the surgical site. As result, the patient presented for definitive evaluation and management with respect to her surgical wound. At thetime of presentation, there was a large amount of necrotic and nonviable tissue at the site of the patient's surgical wound. Over a period of several months, using various conservative treatment measures, including the wound VAC, the patient's surgical wound nearly healed. In recent weeks, however, the patient developed a draining sinus tract medial to her vertical knee incision. It had been draining purulent material. A culture was obtained on January 14, 2025, the results of which were positive for Pseudomonas aeruginosa. The patient was placed on Cipro 500 mg p.o. twice daily for a total of 2 weeks. This was in accordance with the sensitivity findings on her recent culture. Following an unroofing of an infected and undermined cavity adjacent to the patient's surgical incision, an open wound remains medial to the vertical incision. Woundmargins are reasonably well beveled. The base of the wound is generally pink and healthy in appearance. There is no noted drainage, fluctuance, or cellulitis. The wound continues to decrease in size, and is now quite small. The patient has been encouraged to optimize her nutritional intake, as well as her diabetes management. She has been encouraged to continue taking protein nutritional drinks on a daily basis. She has been encouraged to elevate her left lower extremity to prevent and minimize swelling. Elevation is to be to heart level, during both daytime and nighttime hours. Avoidance of prolonged idle sitting has been encouraged. Activity has been encouraged. Tubigrip's will be continued for compression purposes. The patient has indicated that she underwent an x-ray of her left knee on December 11, 2024, at the office of her orthopedic surgeon, Dr. Mart Enciso. We have request a copy of the x-ray report on several occasions, which has not yet been received. However, the patient indicates that her surgeon stated that everything looked okay. Given that the patient has had recurrent cultures positive for Pseudomonas aeruginosa,there is question as to the source of these recurring infections. A stitch abscess may account for this finding, as portions of a nonabsorbable suture havebeen recently removed from the wound site in recent weeks. In the last several weeks, however, there has been no evidence of purulent, fluctuance, drainage, orextrusion of suture. It is considered that infection of the prosthetic left knee hardware could also exist, though currently appears to be unlikely. Consideration may be given to an MRI of the left knee in the near future, if thepatient fails to progress. At this juncture, however, her progress has been satisfactory. We are to transition to the use of collagen hydrogel topically leila daily basis. The patient and her have been instructed in the appropriate means of application. The site will then be covered with dry gauze. The patient is to return in 1 week for reevaluation. Total time: 25 minutes 02/04/251915 <Electronically signed by Anthony Esquivel MD> Cosigner Signature (if applicable): CC: ~ Signed [facility] Work Phone: [phone] History and physical note [facility] [address] [place] [id number] H&P Exam - Wound Care 02/04/251906 MR#: [id number] Acct: [id number] Name: LEOBARDO VALDEZ Rep #:[id number] : 1950 74 From: Anthony Ortega PCP: Dr. Aashish Bahena MD Status:RE G RCR Location: History of Present Illness Date of Service: 02/04/25 Chief Complaint: Dehiscent, necrotic surgical wound of the left knee History of Wound: This is a 74-year-old female with a history of left total kneereplacement many years ago, which has required several revisions. The most recent revision was performed on June 19, 2024, at the [facility]. This was the fourth left knee revision. Prior revisions required flap reconstruction, and the Plastic Surgery service was involved in the patient's most recent surgery. Postoperatively, the patient was placed on oral doxycycline, which is expected to continue for 3 months. The patient's left lower extremity was locked in extension for 2 weeks. She is now weightbearing on the involved limb. She was admitted to the Transitional Care Unit at [facility] for several weeks postoperatively on June 27, 2024. She has returned to home, with under water assistant care from her . The patient developed a surgical wound dehiscence and marjorie necrosis and gangrene at the site of her incision. A wound VAC was used initially at the surgical site, but the patienthad been using Xeroform more recently. The patient suffers from multiple pre-existing medical conditions, listed herein. She does not smoke. She is using Shwetha as a nutritional supplement. Her BMI is34.2. 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 Dehiscence of incision History of revision of total replacement of left knee joint Wears glasses Alcohol use History of steroid therapy Bladder disease Neuropathy Back pain Dietary restriction History of pain when walking Pain Myasthenia gravis Ambulates with cane Rheumatoid arthritis Low iron History of DVT (deep vein thrombosis) Hyperlipemia Difficulty swallowing History of hiatal hernia Gastric reflux Non-smoker Shortness of breath on exertion Chronic cough PONV (postoperative nausea and vomiting) Leg cramps History of edema History of stress test Hypertension Thyroid disease Cataracts, bilateral History of UTI Arthritis Home Medications ?Medication ?Instructions ?Recorded ?Last Taken ?Type folic acid 1 mg tablet 1 mg PO DAILY supplement 06/06/22 History atorvastatin 10 mg tablet 5 mg PO .QOD Cholesterol 06/26/24 18:45 History cholecalciferol (vitamin D3) 50 50 mcg PO DAILY supple ment 09/06/21 06/27/24 History mcg (2,000 unit) capsule ascorbic acid (vitamin C) 500 mg 500 mg PO DAILY suppl ement 02/06/22 06/27/24 History tablet (Vitamin C) hydrochlorothiazide 12.5 mg tablet 12.5 mg PO DAILY Bl ood pressure 06/07/22 Unknown History vibegron 75 mg tablet (Gemtesa) 75 mg PO DAILY Overact cassidy bladder 12/04/22 Unknown History metformin 500 mg tablet,extended 1,000 mg PO BID Diabe freda 06/27/24 06/27/24 05:30 History release 24 hr polysaccharide iron complex 150 mg 65 mg PO QODAY Supp lement 06/27/24 Unknown History iron capsule (Ferrex) losartan 100 mg tablet 100 mg PO DAILY bp 30 days # 30 tabs 07/15/24 Unknown Rx oxycodone 5 mg tablet 5 - 10 mg (1 - 2 x 5 mg) PO Q4H 07/15/24 Unknown Rx PRN PRN Pain Score 4-10 7 days #84 tabs potassium chloride 20 mEq 20 meq PO DAILYCM supplement 30 07/15/24 Unknown Rx tablet,extended release(part/cryst) days #30 tabs arginine 7 gram-glutam 7 1 packet PO DAILY supplement 09/24/24 Unknown History gram-CaHMB 1.5 [id number]-min oral pwd pkt (Shwetha (with collagen)) ciprofloxacin HCl 500 mg tablet 500 mg PO BID #30 tabs 01/20/25 Unknown Rx dapagliflozin propanediol 10 mg 10 mg PO QDAY 02/03/25 Unknown History tablet (Farxiga) levothyroxine 100 mcg tablet 100 mcg PO QDAY 02/03/25 Unknown History pregabalin 100 mg capsule 100 mg PO TID 02/03/25 Unkno wn History pyridostigmine bromide 60 mg tablet 60 mg PO BID #180 tabs 02/03/25 Unknown Rx Allergy/AdvReac Type Severity Reaction Status Date / Time latex Allergy Severe Other Verified 02/03/25 14:06 shellfish derived Allergy Severe PASSED Verified 02/03/25 14:06 OUT, DIARRHEA adhesive Allergy Mild Rash Verified 02/03/25 14:06 levofloxacin AdvReac Intermediate WEAK, Verified 02/03/25 14:06 NAUSEA povidone AdvReac Mild Hives Verified 02/03/25 14:06 Surgical History Status post total left knee replacement History of bilateral cataract extraction History of colonoscopy S/P insertion of spinal cord stimulator History of partial thyroidectomy History of appendectomy History of left knee surgery History of hysterectomy History of cholecystectomy Social History household members: spouse Smoking Status: Never smoker Electronic Cigarette Use: not used second hand exposure: No alcohol intake: current alcohol intake frequency: a few times a month Alcohol type: wine substance use type: does not use Vital Signs Vital Signs Vital Signs: 02/04/25 14:13 Temperature 96.7 F L Temperature Source Temporal Respiratory Rate 16 Oxygen Delivery Method Room Air Weight Weight: 180 lb 13.313 oz Body Mass Index (BMI) 34.1 Physical Exam Const alert, oriented x3, no apparent distress, no limitations and healthy appearing Constitutional Narrative: The patient's BMI is 34.2. General Appearance: cooperative, comfortable, well kempt and well developed Orientation / Consciousness: awake, oriented to person, oriented to place and oriented to time Exam Limitations: no limitations HEENT normocephalic and head/scalp atraumatic Head and Scalp: normal to inspection, normocephalic and atraumatic Face and Sinus: normal facial exam Nose: external nose normal External Ear: external ears normal Eyes EOMs intact bilaterally General Eye: normal appearance of both eyes Neck full ROM General: normal visual inspection Resp normal respiratory effort, normal air movement, no retractions and no use of accessory muscles Effort and Inspection: able to speak in complete sentences Skin Wounds: wounds noted Wound Narrative: The patient's left total knee replacement incision is healed and well- approximated. However, an open wound remains medial to the healed vertical kneeincision. Since the patient's last visit, there has been improvement, with a decrease in size of the remaining wound. Unlike recent visits, there is no visible suture extruding from the base of the wound. The wound is smaller in size. Dimensions are documented elsewhere. Wound margins are well beveled. The base of the wound is generally pink and healthy in appearance, with active granulation tissue. There is no sign of infection or cellulitis. There is no drainage or odor. No fluctuance is noted. Hair: normal Neuro oriented x3, CN's II-XII intact bilaterally, moves all extremities, no focal motor deficits and no sensory deficits noted Sensorium / Orientation: awake, alert, oriented to person, oriented to place andoriented to time Speech: speech normal Psych mental status grossly normal, cooperative, affect normal, speech normal and activity/motor behaviornormal Appearance: grossly normal Speech: normal speech Thought Content: normal thought content Judgement: judgement good Debridement Note Debridement Note Wound debrided: Chronic, nonhealing left knee surgical wound Laterality: Left Type of Debridement: Excisional debridement Anesthesia Used: 5% Lidocaine Gel and Cetacaine Depth: in the subcutaneous layer Percentage of wound debrided: 100 Instrument Used: 3mm curette Tissue Removed: Bioburden Severity: Fat Layer Exposed Amount of bleeding with debridement: Mild Bleeding Controlled with: Compression and gauze Patient tolerated procedure: Patient tolerated procedure well Post-Debridement Measurements and Additional Note: Post-Debridement Measurements/Treatment - Nurse 1 - General Ulcer Assessment Start: 01/28/25 13:37 Freq: Status: Active Protocol: .JAMI Activity Type Activity Date Activity User E-sign Co-sign Detail Recorded Client Recorded Date Recorded By Document 01/28/25 13:37 [facility] [id number] 01/28/25 13:42 [facility] Document 02/04/25 14:13 [id number] 02/04/25 14:22 01/28/25 02/04/25 13:37 14:13 - Today's Visit Information Type of service Follow-up Visit Follow-up Visit (Physician/OPENING MACHINE CLEANER (Physician/OPENING MACHINE CLEANER ) ) Arrival Mode Ambulatory Ambulatory,Cane Transfer Assistance None Accompanied by Patient Identification Verified (Name & Yes Yes ) Patient Requires Transmission-Based No Precautions Height and Weight Body Mass Index (BMI) 34.1 34.1 BMI Classification Obese Obese Vital Signs Temperature (97.8 F-99.1 F) 97.3 F L 96.7 F L Temperature Source Temporal Temporal Pulse Rate (60-100) 75 Pulse Location Monitor Respiratory Rate (12-18) 16 16 Respiratory rate source Observation Observation Oxygen Delivery Method Room Air Room Air Blood Pressure (90/60-120/80) 148/70 H Blood Pressure Mean 96 Source Monitor Position Sitting Blood Pressure Location Left Arm History Since Last Visit- (Skip if this is Patient's initial visit) Have you changed medications since your No No last visit? Any new allergies or adverse reactions No No Had a fall/change in ADL's that may No No increase risk of falls Signs or symptoms of abuse and/or No No neglect since last visit Have you been in the hospital since your No No last visit? Has dressing in place as prescribed Yes Yes Has compression in place as prescribed Yes Yes Has offloadiing in place as prescribed N/A N/A Experienced any changes in pain level or No No management Left Footwear Regular Shoe Regular Shoe Right Footwear Regular Shoe Regular Shoe Pain Scale: 0-10 Numeric Is Patient Pain Free? Yes Yes WC - Nurse 1 - General Ulcer Measurement Start: 01/28/25 13:37 Freq: Status: Active Protocol: Activity Type Activity Date Activity User E-sign Co-sign Detail Recorded Client Recorded Date Recorded By Document 01/28/25 13:37 [facility] [id number] 01/28/25 13:42 [facility] Document 02/04/25 14:13 [id number] 02/04/25 14:22 01/28/25 02/04/25 13:37 14:13 Wound Center Nurse 1 #1,.L knee -Combined with other wound No -Current Size (cm) - Length 0.9 0.1 -Current Size (cm) - Width 0.5 0.1 -Current Size (cm) - Depth 0.4 0 -Total Square Cm 0.45 0.01 -Date of Last Picture (Recall this 01/28/25 field) -Photo Taken Yes -Epithelialization Small 1-33% -Tunneling No -Undermining/Tunneling No -Circular Undermining No -Exudate Amt Medium None Present -Exudate Type Serosanguineous -Wound Margin Distinct, Outline Attached -Granulation Amt Medium (34-66%) None Present (0 %) -Granulation Quality Red -Slough/Fibrin Yes -Necrosis Amt Medium (34-66%) Large (67-100%) -Necrotic Tissue Type Adherent Slough Adherent Slough -Texture (Anali-wound Skin Appearance) Assessed Assessed -Moisture (Anali-wound Skin Appearance) Assessed Assessed -Color (Anali-wound Skin Appearance) Assessed Assessed -Temperature (Anali-wound Skin No Abnormality No Abnormality Appearance) (Pt Warm) (Pt Warm) -Tenderness on Palpation (Anali-wound No No Skin Appearance) -Ulcer Cleansing Rinsed/ Soap and Water Irrigated with Saline -Foul Odor after Cleansing No No -Anesthetic Used 5% Lidocaine 5% Lidocaine Gel Gel - Nurse 2 - General Ulcer CM Notes Start: 01/28/25 13:37 Freq: Status: Active Protocol: Activity Type Activity Date Activity User E-sign Co-sign Detail Recorded Client Recorded Date Recorded By Document 01/28/25 13:57 [id number] 01/28/25 14:03 Document 02/04/25 15:27 [id number] 02/04/25 15:29 01/28/25 02/04/25 13:57 15:27 Wound Center Nurse 2 #1,.L knee -Time 13:58 15:27 -Correct Patient Yes Yes -Correct Side, Site, Position Yes Yes -Correct Procedure Yes Yes -Procedure Performed Yes Yes -Type of Procedure Debridement Debridement -Clinical Debridement Subcutaneous Subcutaneous -Tissue Removed Subcutaneous Subcutaneous -Post Debridement (cm) - Length 0.8 0.4 -Post Debridement (cm) - Width 0.6 0.3 -Post Debridement (cm) - Depth 0.2 0.1 -Total Square (Post) (cm) 0.48 0.12 -Area of Debridement (cm) - Length 0.8 0.4 -Area of Debridement (cm) - Width 0.6 0.3 -Total Square (Area) (cm) 0.48 0.12 -Tunneling No No -Undermining/Tunneling No No -Circular Undermining No No -Wound/Ulcer Outcome Not Healed Not Healed -Ulcer Cleansing Not Cleansed Not Cleansed -Foul Odor after Cleansing No No -Bioengineered Tissue No No -Bleeding Controlled with Pressure Pressure -Treatment Response Procedure Procedure Tolerated Well Tolerated Well -Offloading No No -Debridement - Subq, 1st 20sq cm Yes Yes Pain Scale: 0-10 Numeric Is Patient Pain Free? Yes Yes - Nurse 3 - General Ulcer D/C NN Start: 01/28/25 13:37 Freq: Status: Active Protocol: Activity Type Activity Date Activity User E-sign Co-sign Detail Recorded Client Recorded Date Recorded By Document 01/28/25 14:18 DL [id number] 01/28/25 14:19 DL Document 02/04/25 15:38 [facility] [id number] 02/04/25 15:39 [facility] 01/28/25 02/04/25 14:18 15:38 Wound Care Center Nurse 3 #1,.L knee -Ulcer Cleansing Rinsed/ Rinsed/ Irrigated with Irrigated with Saline Saline -Foul Odor after Cleansing No No -Primary Dressing Applied Aquacel Extra -Other Dressing hydrogel -Primary Dressing Covered/Secured with Dry Gauze & Dry Gauze & Roll Gauze, Roll Gauze, Secured with Secured with Tape Tape -Other Covering vikas -Aquacel Extra 1 left knee -Compression Wrap Vikas Wrap Treatment Response Procedure Tolerated Well Pain Scale: 0-10 Numeric Is Patient Pain Free? Yes Yes WC - Visit Discharge Discharge Condition Stable Stable Ambulatory Status Ambulatory Ambulatory,Cane Transportation Private Auto Private Auto Charges/Coding Procedures Integumentary [id number]: [id number] [place] subq tissue 20 sq cm/< Assessment/Plan Assessment/Plan (1) Dehiscence of incision: CODE(S): T81.31XA - Disruption of external operation (surgical) wound, notelsewhere classified, initial encounter QUALIFIERS: Encounter type: subsequent encounter Qualified Code(s): T81.31XD - Disruption of external operation (surgical) wound, not elsewhere classified, subsequent encounter (2) Non-pressure chronic ulcer of left thigh with fat layer exposed: CODE(S): L97.122 - Non-pressure chronic ulcer of left thigh with fat layerexposed (3) Diabetes: CODE(S): E11.9 - Type 2 diabetes mellitus without complications QUALIFIERS: Diabetes mellitus type: type 2 Diabetes mellitus prison insulin use: with half-way use Diabetes mellitus complication status: without complication Qualified Code(s): E11.9 - Type 2 diabetes mellitus without complications; Z79.4 - MCFP (current) use of insulin (4) Status post total left knee replacement: CODE(S): Z96.652 - Presence of left artificial knee joint (5) History of revision of total replacement of left knee joint: CODE(S): Z96.652 - Presence of left artificial knee joint (6) History of left knee surgery: CODE(S): Z98.890 - Other specified postprocedural states (7) History of bilateral cataract extraction: CODE(S): Z98.41 - Cataract extraction status, right eye; Z98.42 - Cataractextraction status, left eye (8) History of hiatal hernia: CODE(S): Z87.19 - Personal history of other diseases of the digestive system (9) History of cholecystectomy: CODE(S): Z90.49 - Acquired absence of other specified parts of digestive tract (10) History of hysterectomy: CODE(S): Z90.710 - Acquired absence of both cervix and uterus (11) History of appendectomy: CODE(S): Z90.49 - Acquired absence of other specified parts of digestive tract (12) Diabetic polyneuropathy: CODE(S): E11.42 - Type 2 diabetes mellitus with diabetic polyneuropathy (13) GERD (gastroesophageal reflux disease): CODE(S): K21.9 - Gastro-esophageal reflux disease without esophagitis (14) Iron deficiency anemia: CODE(S): D50.9 - Iron deficiency anemia, unspecified (15) Hyperlipemia: CODE(S): E78.5 - Hyperlipidemia, unspecified (16) Essential (primary) hypertension: CODE(S): I10 - Essential (primary) hypertension (17) Status post total right knee replacement: CODE(S): Z96.651 - Presence of right artificial knee joint (18) Osteoarthritis: (19) History of DVT (deep vein thrombosis): CODE(S): Z86.718 - Personal history of other venous thrombosis and embolism (20) HTN (hypertension): CODE(S): I10 - Essential (primary) hypertension (21) Dyslipidemia: CODE(S): E78.5 - Hyperlipidemia, unspecified (22) Hypothyroidism: CODE(S): E03.9 - Hypothyroidism, unspecified (23) Ocular myasthenia gravis: CODE(S): G70.00 - Myasthenia gravis without (acute) exacerbation PLAN: Plan This is a 74-year-old female who underwent the fourth revision of a left total knee replacement on June 19, 2024. She developed gangrene, necrosis, and dehiscence at the surgical site. As result, the patient presented for definitive evaluation and management with respect to her surgical wound.At thetime of presentation, there was a large amount of necrotic and nonviable tissue at the site of the patient's surgical wound. Over a period of several months, using various conservative treatment measures, including the wound VAC, the patient's surgical wound nearly healed. In recent weeks, however, the patient developed a draining sinus tract medial to her vertical knee incision. It had been draining purulent material. A culture was obtained on January 14, 2025, the results of which were positive for Pseudomonas aeruginosa. The patient was placed on Cipro 500 mg p.o. twice daily for a total of 2 weeks. This was in accordance with the sensitivity findings on her recent culture. Followingan unroofing of an infected and undermined cavity adjacent to the patient's surgical incision, an open wound remains medial to the vertical incision. Woundmargins are reasonably well beveled. The base of the wound is generally pink and healthy in appearance. There is no noted drainage, fluctuance, or cellulitis. The wound continues to decrease in size, and is now quite small. The patient has beenencouraged to optimize her nutritional intake, as well as her diabetes management. She has been encouraged to continue taking protein nutritional drinks on a daily basis. She has been encouraged to elevate her left lower extremity to prevent and minimize swelling. Elevation is to be to heart level,during both daytime and nighttime hours. Avoidance of prolonged idle sitting has been encouraged. Ac tivity has been encouraged. Tubigrip's will be continued for compression purposes. The patient has indicated that she underwent an x-ray of her left knee on December 11, 2024, at the office of her orthopedic surgeon, Dr. Mart Enciso. We have request a copy of the x-ray report on several occasions, which has not yet been received. However, the patient indicates that her surgeon stated that everything looked okay. Given that the patient has had recurrent cultures positive for Pseudomonas aeruginosa,there is question as to the source of these recurring infections. A stitch abscess may account for this finding, as portions of a nonabsorbable suture havebeen recently removed from the wound site in recent weeks. In the last several weeks, however, there has been no evidence of purulent, fluctuance, drainage, orextrusion of suture. It is considered that infection of the prosthetic left knee hardware could also exist, though currently appears to be unlikely. Consideration may be given to an MRI of the left knee in the near future, if thepatient fails to progress. At this juncture, however, her progress has been satisfactory. We are to transition to the use of collagen hydrogel topically leila daily basis. The patient and her have been instructed in the appropriate means of application. The site will then be covered with dry gauze. The patient is to return in 1 week for reevaluation. Total time: 25 minutes 02/04/251915 Cosigner Signature (if applicable): CC: ~ Signed [facility]05-09-2025 History and physical note Author Anthony Esquivel [facility] Note Date/Time January 30, 2025 1:47pm [facility] [address] [place] [address] H&P Exam - Wound Care 01/30/25 1330 MR#: [id number] Acct: [id number] Name: LEOBARDO VALDEZ Rep #:[id number] : 1950 74 From: Anthony Ortega PCP: Dr. Aashish Bahena MD Status:RE G RCR Location: History of Present Illness Date of Service: 01/28/25 Chief Complaint: Dehiscent, necrotic surgical wound of the left knee History of Wound: This is a 74-year-old female with a history of left total kneereplacement many years ago, which has required several revisions. The most recent revision was performed on June 19, 2024, at the [facility]. This was the fourth left knee revision. Prior revisions required flap reconstruction, and the Plastic Surgery service was involved in the patient's most recent surgery. Postoperatively, the patient was placed on oral doxycycline, which is expected to continue for 3 months. The patient's left lower extremity was locked in extension for 2 weeks. She is now weightbearing on the involved limb. She was admitted to the Transitional Care Unit at [facility] for several weeks postoperatively on June 27, 2024. She has returned to home, with under water assistant care from her . The patient developed a surgical wound dehiscence and marjorie necrosis and gangrene at the site of her incision. A wound VAC was used initially at the surgical site, but the patient had been using Xeroform more recently. The patient suffers from multiple pre-existing medical conditions, listed herein. She does not smoke. She is using Shwetha as a nutritional supplement. Her BMI is 34.2. 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 Dehiscence of incision History of revision of total replacement of left knee joint Wears glasses Alcohol use History of steroid therapy Bladder disease Neuropathy Back pain Dietary restriction History of pain when walking Pain Myasthenia gravis Ambulates with cane Rheumatoid arthritis Low iron History of DVT (deep vein thrombosis) Hyperlipemia Difficulty swallowing History of hiatal hernia Gastric reflux Non-smoker Shortness of breath on exertion Chronic cough PONV (postoperative nausea and vomiting) Leg cramps History of edema History of stress test Hypertension Thyroid disease Cataracts, bilateral History of UTI Arthritis Home Medications ?Medication ?Instructions ?Recorded ?Last Taken ?Type folic acid 1 mg tablet 1 mg PO DAILY supplement 06/06/22 History atorvastatin 10 mg tablet 5 mg PO .QOD Cholesterol 06/26/24 18:45 History cholecalciferol (vitamin D3) 50 50 mcg PO DAILY supple ment 09/06/21 06/27/24 History mcg (2,000 unit) capsule ascorbic acid (vitamin C) 500 mg 500 mg PO DAILY suppl ement 02/06/22 06/27/24 History tablet (Vitamin C) dapagliflozin propanediol 5 mg 10 mg PO DAILY blood michaels gar 05/25/22 06/06/22 History tablet (Farxiga) levothyroxine 125 mcg tablet 100 mcg PO DAILY thyroid 05/25/22 06/27/24 History pregabalin 75 mg capsule (Lyrica) 100 mg PO TID pain 0 05/25/22 06/06/22 History hydrochlorothiazide 12.5 mg tablet 12.5 mg PO DAILY Bl ood pressure 06/07/22 Unknown History vibegron 75 mg tablet (Gemtesa) 75 mg PO DAILY Overact cassidy bladder 12/04/22 Unknown History metformin 500 mg tablet,extended 1,000 mg PO BID Diabe freda 06/27/24 06/27/24 05:30 History release 24 hr polysaccharide iron complex 150 mg 65 mg PO QODAY Supp lement 06/27/24 Unknown History iron capsule (Ferrex) losartan 100 mg tablet 100 mg PO DAILY bp 30 days # 30 tabs 07/15/24 Unknown Rx oxycodone 5 mg tablet 5 - 10 mg (1 - 2 x 5 mg) PO Q4H 07/15/24 Unknown Rx PRN PRN Pain Score 4-10 7 days #84 tabs potassium chloride 20 mEq 20 meq PO DAILYCM supplement 30 07/15/24 Unknown Rx tablet,extended release(part/cryst) days #30 tabs arginine 7 gram-glutam 7 1 packet PO DAILY supplement 09/24/24 Unknown History gram-CaHMB 1.5 [id number] oral pwd pkt (Shwetha (with collagen)) cephalexin 500 mg capsule 500 mg PO Q6H 7 days #28 cap s 09/26/24 Unknown Rx ciprofloxacin HCl 500 mg tablet 500 mg PO BID #14 tabs 09/29/24 Unknown Rx (Cipro) ciprofloxacin HCl 500 mg tablet 500 mg PO Q12H #14 tab s 12/06/24 Unknown Rx pyridostigmine bromide 60 mg tablet See Rx Instruction s .Route 12/18/24 Unknown Rx .COMPLEX #180 tabs ciprofloxacin HCl 500 mg tablet 500 mg PO BID #30 tabs 01/20/25 Unknown Rx Allergy/AdvReac Type Severity Reaction Status Date / Time latex Allergy Severe Other Verified 12/18/24 14:41 shellfish derived Allergy Severe PASSED Verified 12/18/24 14:41 OUT, DIARRHEA adhesive Allergy Mild Rash Verified 12/18/24 14:41 levofloxacin AdvReac Intermediate WEAK, Verified 12/18/24 14:41 NAUSEA povidone AdvReac Mild Hives Verified 12/18/24 14:41 Surgical History Status post total left knee replacement History of bilateral cataract extraction History of colonoscopy S/P insertion of spinal cord stimulator History of partial thyroidectomy History of appendectomy History of left knee surgery History of hysterectomy History of cholecystectomy Social History household members: spouse Smoking Status: Never smoker Electronic Cigarette Use: not used second hand exposure: No alcohol intake: current alcohol intake frequency: a few times a month Alcohol type: wine substance use type: does not use Vital Signs Vital Signs Vital Signs: Weight Weight: 180 lb 13.313 oz Body Mass Index (BMI) 34.1 Physical Exam Const alert, oriented x3, no apparent distress, no limitations and healthy appearing Constitutional Narrative: The patient's BMI is 34.2. General Appearance: cooperative, comfortable, well kempt and well developed Orientation / Consciousness: awake, oriented to person, oriented to place and oriented to time Exam Limitations: no limitations HEENT normocephalic and head/scalp atraumatic Head and Scalp: normal to inspection, normocephalic and atraumatic Face and Sinus: normal facial exam Nose: external nose normal External Ear: external ears normal Eyes EOMs intact bilaterally General Eye: normal appearance of both eyes Neck full ROM General: normal visual inspection Resp normal respiratory effort, normal air movement, no retractions and no use of accessory muscles Effort and Inspection: able to speak in complete sentences Skin Wounds: wounds noted Wound Narrative: The patient's left total knee replacement incision is healed and well- approximated. However, an open wound remains medial to the healed vertical kneeincision. Since the patient's last visit, there has been improvement, with a decrease in size of the remaining wound. Unlike recent visits, there is no visible suture extruding from the base of the wound. The wound is smaller in size. Dimensions are documented elsewhere. Wound margins are generally well beveled. The base of the wound is generally pink and healthy in appearance, with active granulation tissue. There is no sign of infection or cellulitis. There is no drainage or odor. No fluctuance is noted. Hair: normal Neuro oriented x3, CN's II-XII intact bilaterally, moves all extremities, no focal motor deficits and no sensory deficits noted Sensorium / Orientation: awake, alert, oriented to person, oriented to place andoriented to time Speech: speech normal Psych mental status grossly normal, cooperative, affect normal, speech normal and activity/motor behavior normal Appearance: grossly normal Speech: normal speech Thought Content: normal thought content Judgement: judgement good Debridement Note Debridement Note Wound debrided: Chronic, nonhealing left knee surgical wound Laterality: Left Type of Debridement: Excisional debridement Anesthesia Used: 5% Lidocaine Gel and Cetacaine Depth: in the subcutaneous layer Percentage of wound debrided: 100 Instrument Used: 3mm curette Tissue Removed: Bioburden and devitalized tissue Severity: Fat Layer Exposed Amount of bleeding with debridement: Mild Bleeding Controlled with: Compression and gauze Patient tolerated procedure: Patient tolerated procedure well Post-Debridement Measurements and Additional Note: Post-Debridement Measurements/Treatment - Nurse 1 - General Ulcer Assessment Start: 01/28/25 13:37 Freq: Status: Active Protocol: KENNY Activity Type Activity Date Activity User E-sign Co-sign Detail Recorded Client Recorded Date Recorded By Document 01/28/25 13:37 [facility] [id number] 01/28/25 13:42 [facility] 01/28/25 13:37 WC - Today's Visit Information Type of service Follow-up Visit (Physician/OPENING MACHINE CLEANER ) Arrival Mode Ambulatory Transfer Assistance None Accompanied by Patient Identification Verified (Name & Yes ) Patient Requires Transmission-Based No Precautions Height and Weight Body Mass Index (BMI) 34.1 BMI Classification Obese Vital Signs Temperature (97.8 F-99.1 F) 97.3 F L Temperature Source Temporal Pulse Rate (60-100) 75 Pulse Location Monitor Respiratory Rate (12-18) 16 Respiratory rate source Observation Oxygen Delivery Method Room Air Blood Pressure (90/60-120/80) 148/70 H Blood Pressure Mean 96 Source Monitor Position Sitting Blood Pressure Location Left Arm History Since Last Visit- (Skip if this is Patient's initial visit) Have you changed medications since your No last visit? Any new allergies or adverse reactions No Had a fall/change in ADL's that may No increase risk of falls Signs or symptoms of abuse and/or No neglect since last visit Have you been in the hospital since your No last visit? Has dressing in place as prescribed Yes Has compression in place as prescribed Yes Has offloadiing in place as prescribed N/A Experienced any changes in pain level or No management Left Footwear Regular Shoe Right Footwear Regular Shoe Pain Scale: 0-10 Numeric Is Patient Pain Free? Yes - Nurse 1 - General Ulcer Measurement Start: 01/28/25 13:37 Freq: Status: Active Protocol: Activity Type Activity Date Activity User E-sign Co-sign Detail Recorded Client Recorded Date Recorded By Document 01/28/25 13:37 [facility] [id number] 01/28/25 13:42 [facility] 01/28/25 13:37 Wound Center Nurse 1 #1,.L knee -Combined with other wound No -Current Size (cm) - Length 0.9 -Current Size (cm) - Width 0.5 -Current Size (cm) - Depth 0.4 -Total Square Cm 0.45 -Date of Last Picture (Recall this 01/28/25 field) -Photo Taken Yes -Epithelialization Small 1-33% -Tunneling No -Undermining/Tunneling No -Circular Undermining No -Exudate Amt Medium -Exudate Type Serosanguineous -Wound Margin Distinct, Outline Attached -Granulation Amt Medium (34-66%) -Granulation Quality Red -Slough/Fibrin Yes -Necrosis Amt Medium (34-66%) -Necrotic Tissue Type Adherent Slough -Texture (Anali-wound Skin Appearance) Assessed -Moisture (Anali-wound Skin Appearance) Assessed -Color (Anali-wound Skin Appearance) Assessed -Temperature (Anali-wound Skin No Abnormality Appearance) (Pt Warm) -Tenderness on Palpation (Anali-wound No Skin Appearance) -Ulcer Cleansing Rinsed/ Irrigated with Saline -Foul Odor after Cleansing No -Anesthetic Used 5% Lidocaine Gel WC - Nurse 2 - General Ulcer CM Notes Start: 01/28/25 13:37 Freq: Status: Active Protocol: Activity Type Activity Date Activity User E-sign Co-sign Detail Recorded Client Recorded Date Recorded By Document 01/28/25 13:57 [id number] 01/28/25 14:03 01/28/25 13:57 Wound Center Nurse 2 -Time 13:58 -Correct Patient Yes -Correct Side, Site, Position Yes -Correct Procedure Yes -Procedure Performed Yes -Type of Procedure Debridement -Clinical Debridement Subcutaneous -Tissue Removed Subcutaneous -Post Debridement (cm) - Length 0.8 -Post Debridement (cm) - Width 0.6 -Post Debridement (cm) - Depth 0.2 -Total Square (Post) (cm) 0.48 -Area of Debridement (cm) - Length 0.8 -Area of Debridement (cm) - Width 0.6 -Total Square (Area) (cm) 0.48 -Tunneling No -Undermining/Tunneling No -Circular Undermining No -Wound/Ulcer Outcome Not Healed -Ulcer Cleansing Not Cleansed -Foul Odor after Cleansing No -Bioengineered Tissue No -Bleeding Controlled with Pressure -Treatment Response Procedure Tolerated Well -Offloading No -Debridement - Subq, 1st 20sq cm Yes Pain Scale: 0-10 Numeric Is Patient Pain Free? Yes - Nurse 3 - General Ulcer D/C NN Start: 01/28/25 13:37 Freq: Status: Active Protocol: Activity Type Activity Date Activity User E-sign Co-sign Detail Recorded Client Recorded Date Recorded By Document 01/28/25 14:18 DL [id number] 01/28/25 14:19 DL 01/28/25 14:18 Wound Care Center Nurse 3 #1,.L knee -Ulcer Cleansing Rinsed/ Irrigated with Saline -Foul Odor after Cleansing No -Primary Dressing Applied Aquacel Extra -Primary Dressing Covered/Secured with Dry Gauze & Roll Gauze, Secured with Tape -Other Covering vikas -Aquacel Extra 1 Treatment Response Procedure Tolerated Well Pain Scale: 0-10 Numeric Is Patient Pain Free? Yes WC - Visit Discharge Discharge Condition Stable Ambulatory Status Ambulatory Transportation Private Auto Charges/Coding Procedures Integumentary [id number]: [id number] [place] subq tissue 20 sq cm/< Assessment/Plan Assessment/Plan (1) Dehiscence of incision: CODE(S): T81.31XA - Disruption of external operation (surgical) wound, notelsewhere classified, initial encounter QUALIFIERS: Encounter type: subsequent encounter Qualified Code(s): T81.31XD - Disruption of external operation (surgical) wound, not elsewhere classified, subsequent encounter (2) Non-pressure chronic ulcer of left thigh with fat layer exposed: CODE(S): L97.122 - Non-pressure chronic ulcer of left thigh with fat layerexposed (3) Diabetes: CODE(S): E11.9 - Type 2 diabetes mellitus without complications QUALIFIERS: Diabetes mellitus type: type 2 Diabetes mellitus prison insulin use: with long term care administrator use Diabetes mellitus complication status: without complication Qualified Code(s): E11.9 - Type 2 diabetes mellitus without complications; Z79.4 - MCFP (current) use of insulin (4) Status post total left knee replacement: CODE(S): Z96.652 - Presence of left artificial knee joint (5) History of revision of total replacement of left knee joint: CODE(S): Z96.652 - Presence of left artificial knee joint (6) History of left knee surgery: CODE(S): Z98.890 - Other specified postprocedural states (7) History of bilateral cataract extraction: CODE(S): Z98.41 - Cataract extraction status, right eye; Z98.42 - Cataractextraction status, left eye (8) History of hiatal hernia: CODE(S): Z87.19 - Personal history of other diseases of the digestive system (9) History of cholecystectomy: CODE(S): Z90.49 - Acquired absence of other specified parts of digestive tract (10) History of hysterectomy: CODE(S): Z90.710 - Acquired absence of both cervix and uterus (11) History of appendectomy: CODE(S): Z90.49 - Acquired absence of other specified parts of digestive tract (12) Diabetic polyneuropathy: CODE(S): E11.42 - Type 2 diabetes mellitus with diabetic polyneuropathy (13) GERD (gastroesophageal reflux disease): CODE(S): K21.9 - Gastro-esophageal reflux disease without esophagitis (14) Iron deficiency anemia: CODE(S): D50.9 - Iron deficiency anemia, unspecified (15) Hyperlipemia: CODE(S): E78.5 - Hyperlipidemia, unspecified (16) Essential (primary) hypertension: CODE(S): I10 - Essential (primary) hypertension (17) Status post total right knee replacement: CODE(S): Z96.651 - Presence of right artificial knee joint (18) Osteoarthritis: (19) History of DVT (deep vein thrombosis): CODE(S): Z86.718 - Personal history of other venous thrombosis and embolism (20) HTN (hypertension): CODE(S): I10 - Essential (primary) hypertension (21) Dyslipidemia: CODE(S): E78.5 - Hyperlipidemia, unspecified (22) Hypothyroidism: CODE(S): E03.9 - Hypothyroidism, unspecified (23) Ocular myasthenia gravis: CODE(S): G70.00 - Myasthenia gravis without (acute) exacerbation PLAN: Plan This is a 74-year-old female who underwent the fourth revision of a left total knee replacement on June 19, 2024. She developed gangrene, necrosis, and dehiscence at the surgical site. As result, the patient presented for definitive evaluation and management with respect to her surgical wound. At thetime of presentation, there was a large amount of necrotic and nonviable tissue at the site of the patient's surgical wound. Over a period of several months, using various conservative treatment measures, including the wound VAC, the patient's surgical wound nearly healed. In recent weeks, however, the patient developed a draining sinus tract medial to her vertical knee incision. It had been draining purulent material. A culture was obtained on January 14, 2025, the results of which were positive for Pseudomonas aeruginosa. The patient was placed on Cipro 500 mg p.o. twice daily for a total of 2 weeks. This was in accordance with the sensitivity findings on her recent culture. Following an unroofing of an infected and undermined cavity adjacent to the patient's surgical incision, an open wound remains medial to the vertical incision. Woundmargins are reasonably well beveled. The base of the wound is generally pink and healthy in appearance. There is no noted drainage, fluctuance, or cellulitis. The patient has been encouraged to optimize her nutritional intake,as well as her diabetes management. She has been encouraged to continue taking protein nutritional drinks on a daily basis. She has been encouraged to elevateher left lower extremity to prevent and minimize swelling. Elevation is to be to heart level, during both daytime and nighttime hours. Avoidance of prolongedidle sitting has been encouraged. Activity as tolerated has been encouraged. Tubigrip's will be continued for compression purposes. The patient has indicated that she underwent an x-ray of her left knee on December 11, 2024, at theoffice of her orthopedic surgeon, Dr. Mart Enciso. We have request a copy of the x-ray report on several occasions, which has not yet been received. However, the patient indicates that her surgeon stated that everything looked okay. Given that the patient has had recurrent cultures positive for Pseudomonas aeruginosa, there is question as to the source of these recurring infections. A stitch abscess may account for this finding, as portions of a nonabsorbable suture have been removed from the wound site in recent weeks. It is considered that infection of the prosthetic left knee hardware could also exist. Consideration may be given to an MRI of the left knee in the near future, if the patient's wound fails to progress. We are to use moistened Aquacel Extra topically on the wound, which will be changed on a daily basis. The patient is to return in 1 week for reevaluation. Total time: 24 minutes 01/30/25 [id number] <Electronically signed by Anthony Esquivel MD> Cosigner Signature (if applicable): CC: ~ Signed [facility] Work Phone: [phone] History and physical note [facility] [address] [place] [address] H&P Exam - Wound Care 01/30/25 1330 MR#: [id number] Acct: [id number] Name: LEOBARDO VALDEZ Rep #:[id number] : 1950 74 From: Anthony Ortega PCP: Dr. Aashish Bahena MD Status:RE G RCR Location: History of Present Illness Date of Service: 01/28/25 Chief Complaint: Dehiscent, necrotic surgical wound of the left knee History of Wound: This is a 74-year-old female with a history of left total kneereplacement many years ago, which has required several revisions. The most recent revision was performed on June 19, 2024, at the [facility]. This was the fourth left knee revision. Prior revisions required flap reconstruction, and the Plastic Surgery service was involved in the patient's most recent surgery. Postoperatively, the patient was placed on oral doxycycline, which is expected to continue for 3 months. The patient's left lower extremity was locked in extension for 2 weeks. She is now weightbearing on the involved limb. She was admitted to the Transitional Care Unit at [facility] for several weeks postoperatively on June 27, 2024. She has returned to home, with under water assistant care from her . The patient developed a surgical wound dehiscence and marjorie necrosis and gangrene at the site of her incision. A wound VAC was used initially at the surgical site, but the patienthad been using Xeroform more recently. The patient suffers from multiple pre-existing medical conditions, listed herein. She does not smoke. She is using Shwetha as a nutritional supplement. Her BMI is34.2. 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 Dehiscence of incision History of revision of total replacement of left knee joint Wears glasses Alcohol use History of steroid therapy Bladder disease Neuropathy Back pain Dietary restriction History of pain when walking Pain Myasthenia gravis Ambulates with cane Rheumatoid arthritis Low iron History of DVT (deep vein thrombosis) Hyperlipemia Difficulty swallowing History of hiatal hernia Gastric reflux Non-smoker Shortness of breath on exertion Chronic cough PONV (postoperative nausea and vomiting) Leg cramps History of edema History of stress test Hypertension Thyroid disease Cataracts, bilateral History of UTI Arthritis Home Medications ?Medication ?Instructions ?Recorded ?Last Taken ?Type folic acid 1 mg tablet 1 mg PO DAILY supplement 06/06/22 History atorvastatin 10 mg tablet 5 mg PO .QOD Cholesterol 06/26/24 18:45 History cholecalciferol (vitamin D3) 50 50 mcg PO DAILY supple ment 09/06/21 06/27/24 History mcg (2,000 unit) capsule ascorbic acid (vitamin C) 500 mg 500 mg PO DAILY suppl ement 02/06/22 06/27/24 History tablet (Vitamin C) dapagliflozin propanediol 5 mg 10 mg PO DAILY blood michaels gar 05/25/22 06/06/22 History tablet (Farxiga) levothyroxine 125 mcg tablet 100 mcg PO DAILY thyroid 05/25/22 06/27/24 History pregabalin 75 mg capsule (Lyrica) 100 mg PO TID pain 0 05/25/22 06/06/22 History hydrochlorothiazide 12.5 mg tablet 12.5 mg PO DAILY Bl ood pressure 06/07/22 Unknown History vibegron 75 mg tablet (Gemtesa) 75 mg PO DAILY Overact cassidy bladder 12/04/22 Unknown History metformin 500 mg tablet,extended 1,000 mg PO BID Diabe freda 06/27/24 06/27/24 05:30 History release 24 hr polysaccharide iron complex 150 mg 65 mg PO QODAY Supp lement 06/27/24 Unknown History iron capsule (Ferrex) losartan 100 mg tablet 100 mg PO DAILY bp 30 days # 30 tabs 07/15/24 Unknown Rx oxycodone 5 mg tablet 5 - 10 mg (1 - 2 x 5 mg) PO Q4H 07/15/24 Unknown Rx PRN PRN Pain Score 4-10 7 days #84 tabs potassium chloride 20 mEq 20 meq PO DAILYCM supplement 30 07/15/24 Unknown Rx tablet,extended release(part/cryst) days #30 tabs arginine 7 gram-glutam 7 1 packet PO DAILY supplement 09/24/24 Unknown History gram-CaHMB 1.5 iyot-[id number]-aw-min oral pwd pkt (Shwetha (with collagen)) cephalexin 500 mg capsule 500 mg PO Q6H 7 days #28 cap s 09/26/24 Unknown Rx ciprofloxacin HCl 500 mg tablet 500 mg PO BID #14 tabs 09/29/24 Unknown Rx (Cipro) ciprofloxacin HCl 500 mg tablet 500 mg PO Q12H #14 tab s 12/06/24 Unknown Rx pyridostigmine bromide 60 mg tablet See Rx Instruction s .Route 12/18/24 Unknown Rx .COMPLEX #180 tabs ciprofloxacin HCl 500 mg tablet 500 mg PO BID #30 tabs 01/20/25 Unknown Rx Allergy/AdvReac Type Severity Reaction Status Date / Time latex Allergy Severe Other Verified 12/18/24 14:41 shellfish derived Allergy Severe PASSED Verified 12/18/24 14:41 OUT, DIARRHEA adhesive Allergy Mild Rash Verified 12/18/24 14:41 levofloxacin AdvReac Intermediate WEAK, Verified 12/18/24 14:41 NAUSEA povidone AdvReac Mild Hives Verified 12/18/24 14:41 Surgical History Status post total left knee replacement History of bilateral cataract extraction History of colonoscopy S/P insertion of spinal cord stimulator History of partial thyroidectomy History of appendectomy History of left knee surgery History of hysterectomy History of cholecystectomy Social History household members: spouse Smoking Status: Never smoker Electronic Cigarette Use: not used second hand exposure: No alcohol intake: current alcohol intake frequency: a few times a month Alcohol type: wine substance use type: does not use Vital Signs Vital Signs Vital Signs: Weight Weight: 180 lb 13.313 oz Body Mass Index (BMI) 34.1 Physical Exam Const alert, oriented x3, no apparent distress, no limitations and healthy appearing Constitutional Narrative: The patient's BMI is 34.2. General Appearance: cooperative, comfortable, well kempt and well developed Orientation / Consciousness: awake, oriented to person, oriented to place and oriented to time Exam Limitations: no limitations HEENT normocephalic and head/scalp atraumatic Head and Scalp: normal to inspection, normocephalic and atraumatic Face and Sinus: normal facial exam Nose: external nose normal External Ear: external ears normal Eyes EOMs intact bilaterally General Eye: normal appearance of both eyes Neck full ROM General: normal visual inspection Resp normal respiratory effort, normal air movement, no retractions and no use of accessory muscles Effort and Inspection: able to speak in complete sentences Skin Wounds: wounds noted Wound Narrative: The patient's left total knee replacement incision is healed and well- approximated. However, an open wound remains medial to the healed vertical kneeincision. Since the patient's last visit, there has been improvement, with a decrease in size of the remaining wound. Unlike recent visits, there is no visible suture extruding from the base of the wound. The wound is smaller in size. Dimensions are documented elsewhere. Wound margins are generally well beveled. The base of the wound is generally pink and healthy in appearance, with active granulation tissue. There is no sign of infection or cellulitis. There is no drainage or odor. No fluctuance is noted. Hair: normal Neuro oriented x3, CN's II-XII intact bilaterally, moves all extremities, no focal motor deficits and no sensory deficits noted Sensorium / Orientation: awake, alert, oriented to person, oriented to place andoriented to time Speech: speech normal Psych mental status grossly normal, cooperative, affect normal, speech normal and activity/motor behaviornormal Appearance: grossly normal Speech: normal speech Thought Content: normal thought content Judgement: judgement good Debridement Note Debridement Note Wound debrided: Chronic, nonhealing left knee surgical wound Laterality: Left Type of Debridement: Excisional debridement Anesthesia Used: 5% Lidocaine Gel and Cetacaine Depth: in the subcutaneous layer Percentage of wound debrided: 100 Instrument Used: 3mm curette Tissue Removed: Bioburden and devitalized tissue Severity: Fat Layer Exposed Amount of bleeding with debridement: Mild Bleeding Controlled with: Compression and gauze Patient tolerated procedure: Patient tolerated procedure well Post-Debridement Measurements and Additional Note: Post-Debridement Measurements/Treatment GINA - Nurse 1 - General Ulcer Assessment Start: 01/28/25 13:37 Freq: Status: Active Protocol: KENNY Activity Type Activity Date Activity User E-sign Co-sign Detail Recorded Client Recorded Date Recorded By Document 01/28/25 13:37 [facility] [id number] 01/28/25 13:42 [facility] 01/28/25 13:37 - Today's Visit Information Type of service Follow-up Visit (Physician/OPENING MACHINE CLEANER ) Arrival Mode Ambulatory Transfer Assistance None Accompanied by Patient Identification Verified (Name & Yes ) Patient Requires Transmission-Based No Precautions Height and Weight Body Mass Index (BMI) 34.1 BMI Classification Obese Vital Signs Temperature (97.8 F-99.1 F) 97.3 F L Temperature Source Temporal Pulse Rate (60-100) 75 Pulse Location Monitor Respiratory Rate (12-18) 16 Respiratory rate source Observation Oxygen Delivery Method Room Air Blood Pressure (90/60-120/80) 148/70 H Blood Pressure Mean 96 Source Monitor Position Sitting Blood Pressure Location Left Arm History Since Last Visit- (Skip if this is Patient's initial visit) Have you changed medications since your No last visit? Any new allergies or adverse reactions No Had a fall/change in ADL's that may No increase risk of falls Signs or symptoms of abuse and/or No neglect since last visit Have you been in the hospital since your No last visit? Has dressing in place as prescribed Yes Has compression in place as prescribed Yes Has offloadiing in place as prescribed N/A Experienced any changes in pain level or No management Left Footwear Regular Shoe Right Footwear Regular Shoe Pain Scale: 0-10 Numeric Is Patient Pain Free? Yes - Nurse 1 - General Ulcer Measurement Start: 01/28/25 13:37 Freq: Status: Active Protocol: Activity Type Activity Date Activity User E-sign Co-sign Detail Recorded Client Recorded Date Recorded By Document 01/28/25 13:37 [facility] [id number] 01/28/25 13:42 [facility] 01/28/25 13:37 Wound Center Nurse 1 #1,.L knee -Combined with other wound No -Current Size (cm) - Length 0.9 -Current Size (cm) - Width 0.5 -Current Size (cm) - Depth 0.4 -Total Square Cm 0.45 -Date of Last Picture (Recall this 01/28/25 field) -Photo Taken Yes -Epithelialization Small 1-33% -Tunneling No -Undermining/Tunneling No -Circular Undermining No -Exudate Amt Medium -Exudate Type Serosanguineous -Wound Margin Distinct, Outline Attached -Granulation Amt Medium (34-66%) -Granulation Quality Red -Slough/Fibrin Yes -Necrosis Amt Medium (34-66%) -Necrotic Tissue Type Adherent Slough -Texture (Anali-wound Skin Appearance) Assessed -Moisture (Anali-wound Skin Appearance) Assessed -Color (Anali-wound Skin Appearance) Assessed -Temperature (Anali-wound Skin No Abnormality Appearance) (Pt Warm) -Tenderness on Palpation (Anali-wound No Skin Appearance) -Ulcer Cleansing Rinsed/ Irrigated with Saline -Foul Odor after Cleansing No -Anesthetic Used 5% Lidocaine Gel WC - Nurse 2 - General Ulcer CM Notes Start: 01/28/25 13:37 Freq: Status: Active Protocol: Activity Type Activity Date Activity User E-sign Co-sign Detail Recorded Client Recorded Date Recorded By Document 01/28/25 13:57 [id number] 01/28/25 14:03 01/28/25 13:57 Wound Center Nurse 2 -Time 13:58 -Correct Patient Yes -Correct Side, Site, Position Yes -Correct Procedure Yes -Procedure Performed Yes -Type of Procedure Debridement -Clinical Debridement Subcutaneous -Tissue Removed Subcutaneous -Post Debridement (cm) - Length 0.8 -Post Debridement (cm) - Width 0.6 -Post Debridement (cm) - Depth 0.2 -Total Square (Post) (cm) 0.48 -Area of Debridement (cm) - Length 0.8 -Area of Debridement (cm) - Width 0.6 -Total Square (Area) (cm) 0.48 -Tunneling No -Undermining/Tunneling No -Circular Undermining No -Wound/Ulcer Outcome Not Healed -Ulcer Cleansing Not Cleansed -Foul Odor after Cleansing No -Bioengineered Tissue No -Bleeding Controlled with Pressure -Treatment Response Procedure Tolerated Well -Offloading No -Debridement - Subq, 1st 20sq cm Yes Pain Scale: 0-10 Numeric Is Patient Pain Free? Yes - Nurse 3 - General Ulcer D/C NN Start: 01/28/25 13:37 Freq: Status: Active Protocol: Activity Type Activity Date Activity User E-sign Co-sign Detail Recorded Client Recorded Date Recorded By Document 01/28/25 14:18 DL [id number] 01/28/25 14:19 DL 01/28/25 14:18 Wound Care Center Nurse 3 #1,.L knee -Ulcer Cleansing Rinsed/ Irrigated with Saline -Foul Odor after Cleansing No -Primary Dressing Applied Aquacel Extra -Primary Dressing Covered/Secured with Dry Gauze & Roll Gauze, Secured with Tape -Other Covering vikas -Aquacel Extra 1 Treatment Response Procedure Tolerated Well Pain Scale: 0-10 Numeric Is Patient Pain Free? Yes WC - Visit Discharge Discharge Condition Stable Ambulatory Status Ambulatory Transportation Private Auto Charges/Coding Procedures Integumentary 111xxx-113xx: [id number] [place] subq tissue 20 sq cm/< Assessment/Plan Assessment/Plan (1) Dehiscence of incision: CODE(S): T81.31XA - Disruption of external operation (surgical) wound, notelsewhere classified, initial encounter QUALIFIERS: Encounter type: subsequent encounter Qualified Code(s): T81.31XD - Disruption of external operation (surgical) wound, not elsewhere classified, subsequent encounter (2) Non-pressure chronic ulcer of left thigh with fat layer exposed: CODE(S): L97.122 - Non-pressure chronic ulcer of left thigh with fat layerexposed (3) Diabetes: CODE(S): E11.9 - Type 2 diabetes mellitus without complications QUALIFIERS: Diabetes mellitus type: type 2 Diabetes mellitus prison insulin use: with long term care administrator use Diabetes mellitus complication status: without complication Qualified Code(s): E11.9 - Type 2 diabetes mellitus without complications; Z79.4 - manager intermediate (current) use of insulin (4) Status post total left knee replacement: CODE(S): Z96.652 - Presence of left artificial knee joint (5) History of revision of total replacement of left knee joint: CODE(S): Z96.652 - Presence of left artificial knee joint (6) History of left knee surgery: CODE(S): Z98.890 - Other specified postprocedural states (7) History of bilateral cataract extraction: CODE(S): Z98.41 - Cataract extraction status, right eye; Z98.42 - Cataractextraction status, left eye (8) History of hiatal hernia: CODE(S): Z87.19 - Personal history of other diseases of the digestive system (9) History of cholecystectomy: CODE(S): Z90.49 - Acquired absence of other specified parts of digestive tract (10) History of hysterectomy: CODE(S): Z90.710 - Acquired absence of both cervix and uterus (11) History of appendectomy: CODE(S): Z90.49 - Acquired absence of other specified parts of digestive tract (12) Diabetic polyneuropathy: CODE(S): E11.42 - Type 2 diabetes mellitus with diabetic polyneuropathy (13) GERD (gastroesophageal reflux disease): CODE(S): K21.9 - Gastro-esophageal reflux disease without esophagitis (14) Iron deficiency anemia: CODE(S): D50.9 - Iron deficiency anemia, unspecified (15) Hyperlipemia: CODE(S): E78.5 - Hyperlipidemia, unspecified (16) Essential (primary) hypertension: CODE(S): I10 - Essential (primary) hypertension (17) Status post total right knee replacement: CODE(S): Z96.651 - Presence of right artificial knee joint (18) Osteoarthritis: (19) History of DVT (deep vein thrombosis): CODE(S): Z86.718 - Personal history of other venous thrombosis and embolism (20) HTN (hypertension): CODE(S): I10 - Essential (primary) hypertension (21) Dyslipidemia: CODE(S): E78.5 - Hyperlipidemia, unspecified (22) Hypothyroidism: CODE(S): E03.9 - Hypothyroidism, unspecified (23) Ocular myasthenia gravis: CODE(S): G70.00 - Myasthenia gravis without (acute) exacerbation PLAN: Plan This is a 74-year-old female who underwent the fourth revision of a left total knee replacement on June 19, 2024. She developed gangrene, necrosis, and dehiscence at the surgical site. As result, the patient presented for definitive evaluation and management with respect to her surgical wound.At thetime of presentation, there was a large amount of necrotic and nonviable tissue at the site of the patient's surgical wound. Over a period of several months, using various conservative treatment measures, including the wound VAC, the patient's surgical wound nearly healed. In recent weeks, however, the patient developed a draining sinus tract medial to her vertical knee incision. It had been draining purulent material. A culture was obtained on January 14, 2025, the results of which were positive for Pseudomonas aeruginosa. The patient was placed on Cipro 500 mg p.o. twice daily for a total of 2 weeks. This was in accordance with the sensitivity findings on her recent culture. Followingan unroofing of an infected and undermined cavity adjacent to the patient's surgical incision, an open wound remains medial to the vertical incision. Woundmargins are reasonably well beveled. The base of the wound is generally pink and healthy in appearance. There is no noted drainage, fluctuance, or cellulitis. The patient has been encouraged to optimize her nutritional intake,as well as her diabetes management. She has been encouraged to continue taking protein nutritional drinks on a daily basis. She has been encouraged to elevateher left lower extremity to prevent and minimize swelling. Elevation is to be to heart level, during both daytime and nighttime hours. Avoidance of prolongedidle sitting has been encouraged. Activity as tolerated has been encouraged. Tubigrip's will be continued for compression purposes. The patient has indicated that she underwent an x-ray of her left knee on December 11, 2024, at theoffice of her orthopedic surgeon, Dr. Mart Enciso. We have request a copy of the x-ray report on several occasions, which has not yet been received. However, the patient indicates that her surgeon stated that everything looked okay. Given that the patient has had recurrent cultures positive for Pseudomonas aeruginosa, there is question as to the source of these recurring infections. A stitch abscess may account for this finding, as portions of a nonabsorbable suture have been removed from the wound site in recent weeks. It is considered that infection of the prosthetic left knee hardware could also exist. Consideration may be given to an MRI of the left knee in the near future, if the patient's wound fails to progress. We are to use moistened Aquacel Extra topically on the wound, which will be changed on a daily basis. The patient is to return in 1 week for reevaluation. Total time: 24 minutes 01/30/25 1347 Cosigner Signature (if applicable): CC: ~ Signed [facility]03-20-[facility] History of Present illness Narrative* Mart Enciso MD - 12/11/2024 10:38 AM EDT Leobardo is here for follow-up. Overall doing well. Doing her daily chores, going up and down the stairs, doing laundry. Still in wound care. Has 1 small area that is healing over, no significant drainage right now. Overall the knee looks very good. She now has 0 to about 75 degrees of motion which is excellent compared to her preoperative state. No restrictions on my end. I have encouraged that she c ontinue to do her exercises and see wound care. She can follow-up every 6 months now with clinical check. X-rays today demonstrate well-appearing hinged replacement in appropriate position alignment with no evidence of loosening. Mart Enciso MD Orthopaedic Surgery [facility] History of Present illness Narrative* Hannah Tay Tech - 12/11/2024 9:50 AM EDT Radiology Service Progress Note PATIENT NAME: Leobardo Valdez DATE OF SERVICE: December 11, 2024 TIME: 9:50 AM PATIENT IDENTITY VERIFICATION COMPLETED USING TWO (2) IDENTIFIERS: Name and Date of confirmedby patient verbally. FALL SCREENING: Has the patient had 2 falls in the last year or 1 fall with injury or currently using an Ambulatory Assistive Device (Walker, Cane, Wheelchair, Crutches, etc.)? Yes, Patient High Riskfor Falls What interventions were put in place to prevent falls during this visit? Yellow Falls Risk Wristband Applied PATIENT GENDER DATA: Assigned female at . status: : No status:NO. PATIENT RELEVANT IMPLANT DATA REVIEWED: Not Applicable PATIENT PRESENTS WITH AN IMPLANTABLE OR ATTACHED BANANA RIPENING ROOM SUPERVISOR: No RADIOLOGY DEPARTMENT: General X-ray: Exam(s) Completed: Lower Extremity X- Ray(s): Knee, AP / Lat / Merchant Left and Wt. Bearing PERIPHERAL IV DATA: Not applicable SIGNED BY: Terra Kaur December 11, 2024 9:50 AM documented in this encounterTri[facility]03-20-2025 NoteHNO ID: [id number] Author: HANNAH TAY Tech Service: Radiology Author Type: Pillowcase Cleaner Type: Progress Notes Filed: 12/11/2024 09:50 Note Text: Radiology Service Progress Note PATIENT NAME: Leobardo Valdez DATE OF SERVICE: December 11, 2024 TIME: 9:50 AM PATIENT IDENTITY VERIFICATION COMPLETED USING TWO (2) IDENTIFIERS: Name and Date of confirmed by patient verbally. FALL SCREENING: Has the patient had 2 falls in the last year or 1 fall with injury or currently using an Ambulatory Assistive Device (Walker, Cane, Wheelchair, Crutches, etc.)? Yes, Patient High Risk for Falls What interventions were put in place to prevent falls during this visit? Yellow Falls Risk Wristband Applied PATIENT GENDER DATA: Assigned female at . status: : No status: NO. PATIENT RELEVANT IMPLANT DATA REVIEWED: Not Applicable PATIENT PRESENTS WITH AN IMPLANTABLE OR ATTACHED BANANA RIPENING ROOM SUPERVISOR: No RADIOLOGY DEPARTMENT: General X-ray: Exam(s) Completed: Lower Extremity X-Ray(s): Knee, AP / Lat / Merchant Left and Wt. Bearing PERIPHERAL IV DATA: Not applicable SIGNED BY: Terra Kaur December 11, 2024 9:50 AMCleveland Clinic Children'[facility] Hospital For [id number] History and physical note Author Anthony Esquivel [facility] Note Date/Time December 03, 2024 1:0 4pm [facility] [address] [place] [id number] H&P Exam - Wound Care 12/03/24 1245 MR#: [id number] Acct: [id number] Name: LEOBARDO VALDEZ Rep #:[id number] : 1950 74 From: Antohny Ortega PCP: Dr. Aashish Bahena MD Status:RE G RCR Location: History of Present Illness Date of Service: 12/02/24 Chief Complaint: Dehiscent, necrotic surgical wound of the left knee History of Wound: This is a 74-year-old female with a history of left total kneereplacement many years ago, which has required several revisions. The most recent revision was performed on June 19, 2024, [facility]. This was the fourth left knee revision. Prior revisions required flap reconstruction, and the Plastic Surgery service was involved in the patient's most recent surgery. Postoperatively, the patient was placed on oral doxycycline, which is expected to continue for 3 months. The patient's left lower extremity was locked in extension for 2 weeks. She is now weightbearing on the involved limb. She was admitted to the Transitional Care Unit at [facility] for several weeks postoperatively on June 27, 2024. She has returned to home, with under water assistant care from her . The patient developed a surgical wound dehiscence and marjorie necrosis and gangrene at the site of her incision. A wound VAC was used initially at the surgical site, but the patient had been using Xeroform more recently. The patient suffers from multiple pre-existing medical conditions, listed herein. She does not smoke. She is using Shwetha as a nutritional supplement. Her BMI is 34.2. 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 Dehiscence of incision History of revision of total replacement of left knee joint Wears glasses Alcohol use History of steroid therapy Bladder disease Neuropathy Back pain Dietary restriction History of pain when walking Pain Myasthenia gravis Ambulates with cane Rheumatoid arthritis Low iron History of DVT (deep vein thrombosis) Hyperlipemia Difficulty swallowing History of hiatal hernia Gastric reflux Non-smoker Shortness of breath on exertion Chronic cough PONV (postoperative nausea and vomiting) Leg cramps History of edema History of stress test Hypertension Thyroid disease Cataracts, bilateral History of UTI Arthritis Home Medications ?Medication ?Instructions ?Recorded ?Last Taken ?Type folic acid 1 mg tablet 1 mg PO DAILY supplement 06/06/22 History atorvastatin 10 mg tablet 5 mg PO .QOD Cholesterol 06/26/24 18:45 History cholecalciferol (vitamin D3) 50 50 mcg PO DAILY supple ment 09/06/21 06/27/24 History mcg (2,000 unit) capsule ascorbic acid (vitamin C) 500 mg 500 mg PO DAILY suppl ement 02/06/22 06/27/24 History tablet (Vitamin C) dapagliflozin propanediol 5 mg 10 mg PO DAILY blood michaels gar 05/25/22 06/06/22 History tablet (Farxiga) levothyroxine 125 mcg tablet 100 mcg PO DAILY thyroid 05/25/22 06/27/24 History pregabalin 75 mg capsule (Lyrica) 100 mg PO TID pain 0 05/25/22 06/06/22 History hydrochlorothiazide 12.5 mg tablet 12.5 mg PO DAILY Bl ood pressure 06/07/22 Unknown History vibegron 75 mg tablet (Gemtesa) 75 mg PO DAILY Overact cassidy bladder 12/04/22 Unknown History metformin 500 mg tablet,extended 1,000 mg PO BID Diabe freda 06/27/24 06/27/24 05:30 History release 24 hr polysaccharide iron complex 150 mg 65 mg PO QODAY Supp lement 06/27/24 Unknown History iron capsule (Ferrex) losartan 100 mg tablet 100 mg PO DAILY bp 30 days # 30 tabs 07/15/24 Unknown Rx oxycodone 5 mg tablet 5 - 10 mg (1 - 2 x 5 mg) PO Q4H 07/15/24 Unknown Rx PRN PRN Pain Score 4-10 7 days #84 tabs potassium chloride 20 mEq 20 meq PO DAILYCM supplement 30 07/15/24 Unknown Rx tablet,extended release(part/cryst) days #30 tabs arginine 7 gram-glutam 7 1 packet PO DAILY supplement 09/24/24 Unknown History gram-CaHMB 1.5 cwwt-suczz-fi-min oral pwd pkt (Shwetha (with collagen)) cephalexin 500 mg capsule 500 mg PO Q6H 7 days #28 cap s 09/26/24 Unknown Rx ciprofloxacin HCl 500 mg tablet 500 mg PO BID #14 tabs 09/29/24 Unknown Rx (Cipro) Allergy/AdvReac Type Severity Reaction Status Date / Time latex Allergy Severe Other Verified 09/23/24 16:23 shellfish derived Allergy Severe PASSED Verified 09/23/24 16:23 OUT, DIARRHEA adhesive Allergy Mild Rash Verified 09/23/24 16:23 levofloxacin AdvReac Intermediate WEAK, Verified 09/23/24 16:23 NAUSEA povidone AdvReac Mild Hives Verified 09/23/24 16:23 Surgical History History of bilateral cataract extraction History of colonoscopy S/P insertion of spinal cord stimulator History of partial thyroidectomy History of appendectomy History of left knee surgery History of hysterectomy History of cholecystectomy Social History household members: spouse Smoking Status: Never smoker Electronic Cigarette Use: not used second hand exposure: No alcohol intake: current alcohol intake frequency: a few times a month Alcohol type: wine substance use type: does not use Vital Signs Vital Signs Vital Signs: 12/02/24 14:03 Temperature 96.0 F L Temperature Source Temporal Pulse Rate 65 Respiratory Rate 18 Blood Pressure 127/61 H Blood Pressure Mean 83 Blood Pressure Source Monitor Blood Pressure Position Semi-Fowlers Blood Pressure Location Right Arm Oxygen Delivery Method Room Air Weight Weight: 180 lb 13.313 oz Body Mass Index (BMI) 34.1 Physical Exam Const alert, oriented x3, no apparent distress, no limitations, healthy appearing and well nourished General Appearance: cooperative, comfortable, well kempt and well developed Orientation / Consciousness: awake, oriented to person, oriented to place and oriented to time Exam Limitations: no limitations HEENT normocephalic, head/scalp atraumatic and hearing grossly normal bilaterally Head and Scalp: normal to inspection, normocephalic and atraumatic Face and Sinus: normal facial exam Nose: external nose normal External Ear: external ears normal Eyes EOMs intact bilaterally General Eye: normal appearance of both eyes Neck full ROM Resp normal respiratory effort, normal air movement, no retractions and no use of accessory muscles Effort and Inspection: able to speak in complete sentences Extremity no calf tenderness General Extremity: Negative for clubbing or cyanosis Skin Wound Narrative: A dehiscent longitudinal surgical incision is noted overlying the left knee. The dehiscence extends through all layers and into the subcutaneous tissues, though most is now healed and epithelialized.. There is no odor. Dimensions are documented elsewhere. The size and depth of the wound continue to diminish. However, there is now a very small eschar remaining, from which the patient states that there has been purulent drainage within the last week. Indeed, manual pressure adjacent to this small eschar, expels a small amount of liquid purulent material. This purulent drainage was cultured for aerobic and anaerobic bacterial growth. Once the overlying eschar was removed, exploration of the site revealed there to be undermining of the wound at the 9 o'clock position. The undermining extended approximately 8 mm. The patient's wound now entails a relatively small opening to a shallow abscess cavity with undermining which extends medially at the 9 o'clock position. A very small superficial ulceration persists within the incision just inferior to the small abscess cavity. The remaining portion of the incision, located inferiorly, remains completely healed and epithelialized. Minimal swelling and edema are noted. Hair: normal Neuro oriented x3, CN's II-XII intact bilaterally, moves all extremities, no focal motor deficits and no sensory deficits noted Sensorium / Orientation: awake, alert, oriented to person, oriented to place andoriented to time Cranial Nerves: CN normal except as noted Speech: speech normal Psych Appearance: grossly normal and appropriate Attitude: calm Activity / Motor Behavior: appropriate eye contact Speech: normal speech Mood & Affect: euthymic mood Thought Process: normal thought process Thought Content: normal thought content Attention / Concentration: attention grossly intact Debridement Note Debridement Note Wound debrided: Dehiscent left knee surgical incision Laterality: Left Type of Debridement: Excisional debridement Anesthesia Used: 5% Lidocaine Gel, Cetacaine and - (Lidocaine with epinephrine per injection) Depth: Down to and including healthy tissue and in the subcutaneous layer Percentage of wound debrided: 100 Instrument Used: 3mm curette, #15 blade, Forceps and - (Cuticle scissors) Tissue Removed: Bioburden Severity: Fat Layer Exposed Amount of bleeding with debridement: Mild Bleeding Controlled with: Compression and gauze Patient tolerated procedure: Patient tolerated procedure well Debridement Free Text: During the course of physical examination today, it was noted that there was purulent drainage from the remaining portion of the wound, which could be expressed by manual pressure at the site. This purulent drainagewas cultured for aerobic and anaerobic bacterial growth. Probing of the underlying cavity revealed significant undermining extending medially for approximately 8 mm. Therefore, the decision was made to unroofed this area, in an effort to enhance healing by secondary intention. The area was prepped with Betadine. Lidocaine with epinephrine was injected subcutaneously to provide an adequate level of local anesthesia. A #15 scalpel blade and forceps were then used to sharply excise the overlying dermal and fat layers to unroof the abscesscavity. This was accomplished with minimal discomfort to the patient. Once theabscess cavity had been unroofed, the area was packed with moistened 1/4 inch NuGauze. The patient tolerated the procedure well. Post-Debridement Measurements and Additional Note: Post-Debridement Measurements/Treatment WC - Nurse 1 - General Ulcer Assessment Start: 11/25/24 14:44 Freq: Status: Active Protocol: KENNY Activity Type Activity Date Activity User E-sign Co-sign Detail Recorded Client Recorded Date Recorded By Document 11/25/24 14:44 ML [id number] 11/25/24 14:50 ML Document 12/02/24 14:03 KW [id number] 12/02/24 14:09 KW 11/25/24 12/02/24 14:44 14:03 - Today's Visit Information Type of service Follow-up Visit Follow-up Visit (Physician/OPENING MACHINE CLEANER (Physician/OPENING MACHINE CLEANER ) ) Arrival Mode Cane Ambulatory,Cane Transfer Assistance None Accompanied by Patient Identification Verified (Name & Yes Yes ) Patient Requires Transmission-Based No Precautions Finger Stick Blood Sugar(mg/dl) (if 166 indicated): Blood Sugar Stated by Patient Height and Weight Body Mass Index (BMI) 34.1 34.1 BMI Classification Obese Obese Vital Signs Temperature (97.8 F-99.1 F) 97 F L 96.0 F L Temperature Source Temporal Temporal Pulse Rate (60-100) 73 65 Pulse Location Monitor Monitor Respiratory Rate (12-18) 15 18 Respiratory rate source Observation Observation Oxygen Delivery Method Room Air Blood Pressure (90/60-120/80) 127/67 H 127/61 H Blood Pressure Mean 87 83 Source Monitor Monitor Position Sitting Semi-Fowlers Blood Pressure Location Right Arm Right Arm History Since Last Visit- (Skip if this is Patient's initial visit) Have you changed medications since your No No last visit? Any new allergies or adverse reactions No No Had a fall/change in ADL's that may No No increase risk of falls Signs or symptoms of abuse and/or No No neglect since last visit Have you been in the hospital since your No No last visit? Has dressing in place as prescribed Yes Yes Has compression in place as prescribed N/A Yes Has offloadiing in place as prescribed N/A N/A Experienced any changes in pain level or No No management Left Footwear Regular Shoe Right Footwear Regular Shoe Pain Scale: 0-10 Numeric Is Patient Pain Free? Yes Yes - Nurse 1 - General Ulcer Measurement Start: 11/25/24 14:44 Freq: Status: Active Protocol: Activity Type Activity Date Activity User E-sign Co-sign Detail Recorded Client Recorded Date Recorded By Document 11/25/24 14:44 ML [id number] 11/25/24 14:50 ML Document 12/02/24 14:03 KW [id number] 12/02/24 14:09 KW 11/25/24 12/02/24 14:44 14:03 Wound Center Nurse 1 #2 Left Knee Inf -Current Size (cm) - Length 0.8 0.1 -Current Size (cm) - Width 0.5 0.1 -Current Size (cm) - Depth 0.1 0 -Total Square Cm 0.40 0.01 -Date of Last Picture (Recall this 12/02/24 field) -Epithelialization Large 67-100% -Exudate Amt Medium Small -Exudate Type Serosanguineous Purulent -Wound Margin Indistinct, Non -Visible -Granulation Amt Medium (34-66%) Large (67-100%) -Slough/Fibrin Yes -Necrosis Amt Medium (34-66%) Small (1-33%) -Necrotic Tissue Type Adherent Slough Adherent Slough -Texture (Anali-wound Skin Appearance) Assessed Assessed -Moisture (Anali-wound Skin Appearance) Assessed Assessed -Color (Anali-wound Skin Appearance) Assessed Assessed -Temperature (Anali-wound Skin No Abnormality No Abnormality Appearance) (Pt Warm) (Pt Warm) -Tenderness on Palpation (Anali-wound No No Skin Appearance) -Ulcer Cleansing Rinsed/ Rinsed/ Irrigated with Irrigated with Saline Saline -Foul Odor after Cleansing No No -Anesthetic Used 5% Lidocaine 5% Lidocaine Gel Gel #1,.L knee -Current Size (cm) - Length 0.1 0.1 -Current Size (cm) - Width 0.1 0.1 -Current Size (cm) - Depth 0.1 0 -Total Square Cm 0.01 0.01 -Date of Last Picture (Recall this 12/02/24 field) -Exudate Amt None Present Small -Exudate Type Purulent -Wound Margin Indistinct, Non -Visible -Granulation Amt None Present (0 %) -Slough/Fibrin No -Necrosis Amt None Present (0 Small (1-33%) %) -Necrotic Tissue Type Adherent Slough -Texture (Anali-wound Skin Appearance) Assessed -Moisture (Anali-wound Skin Appearance) Assessed -Color (Anali-wound Skin Appearance) Assessed -Temperature (Anali-wound Skin No Abnormality No Abnormality Appearance) (Pt Warm) (Pt Warm) -Tenderness on Palpation (Anali-wound No No Skin Appearance) -Ulcer Cleansing Rinsed/ Irrigated with Saline -Foul Odor after Cleansing No -Anesthetic Used 5% Lidocaine Gel WC - Nurse 2 - General Ulcer CM Notes Start: 11/25/24 14:44 Freq: Status: Active Protocol: Activity Type Activity Date Activity User E-sign Co-sign Detail Recorded Client Recorded Date Recorded By Document 11/25/24 15:33 DS [id number] 11/25/24 15:35 DS Document 12/02/24 14:24 DS [id number] 12/02/24 14:35 DS Edit Result 12/02/24 14:24 DS (1) [id number] 12/02/24 14:38 DS (1) #1,.L knee - Wound Comment(s) => 9? tunnel w/ 0.8cm depth was unroofed. 11/25/24 12/02/24 15:33 14:24 Wound Center Nurse 2 #2 Left Knee Inf -Time 15:34 -Correct Patient Yes -Procedure Performed No -Wound/Ulcer Outcome Healed- Epithelialized #1,.L knee -Time 15:32 14:00 -Correct Patient Yes Yes -Correct Side, Site, Position Yes Yes -Correct Procedure Yes Yes -Procedure Performed Yes Yes -Type of Procedure Debridement Debridement -Clinical Debridement Subcutaneous Subcutaneous -Tissue Removed Subcutaneous Subcutaneous -Post Debridement (cm) - Length 0.5 0.3 -Post Debridement (cm) - Width 0.6 1.2 -Post Debridement (cm) - Depth 0.1 0.3 -Total Square (Post) (cm) 0.30 0.36 -Area of Debridement (cm) - Length 0.5 0.3 -Area of Debridement (cm) - Width 0.6 1.2 -Total Square (Area) (cm) 0.30 0.36 -Tunneling No No -Undermining/Tunneling No No -Circular Undermining No No -Wound/Ulcer Outcome Not Healed Not Healed -Ulcer Cleansing Rinsed/ Rinsed/ Irrigated with Irrigated with Saline Saline -Foul Odor after Cleansing No No -Bioengineered Tissue No No -Injectable Lidocaine w/ Epi (%) 1 -Injectable Lidocaine w/ Epi (mls) 10 -Bleeding Controlled with Pressure Pressure -Treatment Response Procedure Procedure Tolerated Well Tolerated Well -Debridement - Subq, 1st 20sq cm Yes Yes -Wound Comment(s) 9? tunnel w/ 0. 8cm depth was unroofed. Pain Scale: 0-10 Numeric Is Patient Pain Free? Yes Yes - Nurse 3 - General Ulcer D/C NN Start: 11/25/24 14:44 Freq: Status: Active Protocol: Activity Type Activity Date Activity User E-sign Co-sign Detail Recorded Client Recorded Date Recorded By Document 11/25/24 15:55 ML [id number] 11/25/24 15:56 ML Document 12/02/24 14:42 KW [id number] 12/02/24 14:44 KW 11/25/24 12/02/24 15:55 14:42 Wound Care Center Nurse 3 #2 Left Knee Inf -Ulcer Cleansing Rinsed/ Irrigated with Saline -Primary Dressing Applied Promogran -Primary Dressing Covered/Secured with Dry Gauze & Roll Gauze, Secured with Tape -Promogran 1 #1,.L knee -Primary Dressing Applied C Hydrogel, Nugauze, Iodoform 1/4in -Other Dressing abd/ kerlix/vikas -Primary Dressing Covered/Secured with Dry Gauze,Dry Gauze & Roll Gauze,Secured with Tape -Hydrogel 1 -Nugauze, Iodoform 1/4 1 left knee -Other vikas Treatment Response Procedure Tolerated Well Pain Scale: 0-10 Numeric Is Patient Pain Free? Yes Yes - Visit Discharge Discharge Condition Stable Ambulatory Status Ambulatory,Cane Transportation Private Auto Accompanied by Medication Reconcilliation completed & No provided to patient/care provider Clinical Summary of Care Provided Yes Lab / Micro Data Micro: Microbiology 12/02/24 14:16 Wound - Knee Gram Stain - Final 12/02/24 14:16 Wound - Knee Wound Culture - Preliminary No growth-Final to follow Charges/Coding Procedures Integumentary [id number]: [id number] Trinidad subq tissue 20 sq cm/< Assessment/Plan Assessment/Plan (1) Non-pressure chronic ulcer of left thigh with fat layer exposed: CODE(S): L97.122 - Non-pressure chronic ulcer of left thigh with fat layerexposed (2) Dehiscence of incision: CODE(S): T81.31XA - Disruption of external operation (surgical) wound, notelsewhere classified, initial encounter QUALIFIERS: Encounter type: subsequent encounter Qualified Code(s): T81.31XD - Disruption of external operation (surgical) wound, not elsewhere classified, subsequent encounter (3) Gangrene associated with type 2 diabetes mellitus: CODE(S): E11.52 - Type 2 diabetes mellitus with diabetic peripheral angiopathy with gangrene (4) Status post revision of total replacement of left knee: CODE(S): Z96.652 - Presence of left artificial knee joint (5) Failed total left knee replacement: CODE(S): T84.093A - Other mechanical complication of internal left knee prosthesis, initial encounter QUALIFIERS: Encounter type: subsequent encounter Qualified Code(s): T84.093D - Other mechanical complication of internal left knee prosthesis, subsequent encounter (6) History of left knee surgery: CODE(S): Z98.890 - Other specified postprocedural states (7) Diabetes: CODE(S): E11.9 - Type 2 diabetes mellitus without complications QUALIFIERS: Diabetes mellitus type: type 2 (8) Diabetic polyneuropathy: CODE(S): E11.42 - Type 2 diabetes mellitus with diabetic polyneuropathy (9) GERD (gastroesophageal reflux disease): CODE(S): K21.9 - Gastro-esophageal reflux disease without esophagitis (10) Hyperlipemia: CODE(S): E78.5 - Hyperlipidemia, unspecified (11) Iron deficiency anemia: CODE(S): D50.9 - Iron deficiency anemia, unspecified (12) Essential (primary) hypertension: CODE(S): I10 - Essential (primary) hypertension (13) Debility: CODE(S): R53.81 - Other malaise (14) Status post total right knee replacement: CODE(S): Z96.651 - Presence of right artificial knee joint (15) Osteoarthritis: (16) History of DVT (deep vein thrombosis): CODE(S): Z86.718 - Personal history of other venous thrombosis and embolism (17) Dyslipidemia: CODE(S): E78.5 - Hyperlipidemia, unspecified (18) Hypothyroidism: CODE(S): E03.9 - Hypothyroidism, unspecified (19) Ocular myasthenia gravis: CODE(S): G70.00 - Myasthenia gravis without (acute) exacerbation (20) History of partial thyroidectomy: CODE(S): E89.0 - Postprocedural hypothyroidism (21) History of appendectomy: CODE(S): Z90.49 - Acquired absence of other specified parts of digestive tract (22) History of hysterectomy: CODE(S): Z90.710 - Acquired absence of both cervix and uterus (23) History of cholecystectomy: CODE(S): Z90.49 - Acquired absence of other specified parts of digestive tract (24) Non-smoker: CODE(S): Z78.9 - Other specified health status (25) History of hiatal hernia: CODE(S): Z87.19 - Personal history of other diseases of the digestive system (26) History of revision of total replacement of left knee joint: CODE(S): Z96.652 - Presence of left artificial knee joint (27) History of bilateral cataract extraction: CODE(S): Z98.41 - Cataract extraction status, right eye; Z98.42 - Cataractextraction status, left eye PLAN: Plan This is a 74-year-old female who underwent the fourth revision of a left total knee replacement on June 19, 2024. She developed gangrene, necrosis, and dehiscence at the surgical site. As a result, the patient presented for definitive evaluation and management with respect to her surgical wound. The large amount of necrotic and nonviable tissue has been eliminated from the site of the patient's surgical wound during her initial visits. Negative pressure wound therapy was implemented by means of the Wound VAC until recently. The patient's surgical wound dehiscence has shown steady progress and improvement. There has been significant healing and epithelization at the site. In fact, thewound is nearly healed. However, the patient presented today with a small eschar at the site, from which purulent material has been draining. The drainage has been cultured today for aerobic and anaerobic bacterial growth. Culture results will be awaited. A more extensive debridement was performed today, unroofing the abscess cavity in the area of undermining. The procedure was well-tolerated by the patient. The abscess cavity has been packed with moistened 1/4 inch Nu Gauze. The patient and her have been instructed in the appropriate means of wound packing using moistened 1/4 inch Nu Gauze. They have been provided the appropriate and necessary supplies to do so. The patient has been encouraged to optimize her nutritional intake, as well as her diabetes management. She has been encouraged to continue taking protein nutritional drinks on a daily basis. She is to coordinate with her primary carephysician with regard to diabetes management. She has been encouraged to elevate her left lower extremity to prevent and minimize swelling. Elevation isto be to heart level, during both daytime and nighttime hours. Avoidance of prolonged idle sitting has been encouraged. Activity as tolerated has been encouraged. Tubigrip's have been dispensed for compression purposes. The patient is to follow-up in 2 weeks for reevaluation. Total time: 28 minutes 12/03/24 1304 <Electronically signed by Anthony Esquivel MD> Cosigner Signature (if applicable): CC: ~ Signed [facility] Work Phone: [phone] History and physical note [facility] [address] [place] [address] H&P Exam - Wound Care 12/03/24 1245 MR#: [id number] Acct: [id number] Name: LEOBARDO VALDEZ Rep #:[id number] : 1950 74 From: Anthony Ortega PCP: Dr. Aashish Bahena MD Status:RE G RCR Location: History of Present Illness Date of Service: 12/02/24 Chief Complaint: Dehiscent, necrotic surgical wound of the left knee History of Wound: This is a 74-year-old female with a history of left total kneereplacement many years ago, which has required several revisions. The most recent revision was performed on June 19, 2024, at the [facility]. This was the fourth left knee revision. Prior revisions required flap reconstruction, and the Plastic Surgery service was involved in the patient's most recent surgery. Postoperatively, the patient was placed on oral doxycycline, which is expected to continue for 3 months. The patient's left lower extremity was locked in extension for 2 weeks. She is now weightbearing on the involved limb. She was admitted to the Transitional Care Unit at [facility] for several weeks postoperatively on June 27, 2024. She has returned to home, with under water assistant care from her . The patient developed a surgical wound dehiscence and marjorie necrosis and gangrene at the site of her incision. A wound VAC was used initially at the surgical site, but the patienthad been using Xeroform more recently. The patient suffers from multiple pre-existing medical conditions, listed herein. She does not smoke. She is using Shwetha as a nutritional supplement. Her BMI is34.2. 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 Dehiscence of incision History of revision of total replacement of left knee joint Wears glasses Alcohol use History of steroid therapy Bladder disease Neuropathy Back pain Dietary restriction History of pain when walking Pain Myasthenia gravis Ambulates with cane Rheumatoid arthritis Low iron History of DVT (deep vein thrombosis) Hyperlipemia Difficulty swallowing History of hiatal hernia Gastric reflux Non-smoker Shortness of breath on exertion Chronic cough PONV (postoperative nausea and vomiting) Leg cramps History of edema History of stress test Hypertension Thyroid disease Cataracts, bilateral History of UTI Arthritis Home Medications ?Medication ?Instructions ?Recorded ?Last Taken ?Type folic acid 1 mg tablet 1 mg PO DAILY supplement 06/06/22 History atorvastatin 10 mg tablet 5 mg PO .QOD Cholesterol 06/26/24 18:45 History cholecalciferol (vitamin D3) 50 50 mcg PO DAILY supple ment 09/06/21 06/27/24 History mcg (2,000 unit) capsule ascorbic acid (vitamin C) 500 mg 500 mg PO DAILY suppl ement 02/06/22 06/27/24 History tablet (Vitamin C) dapagliflozin propanediol 5 mg 10 mg PO DAILY blood michaels gar 05/25/22 06/06/22 History tablet (Farxiga) levothyroxine 125 mcg tablet 100 mcg PO DAILY thyroid 05/25/22 06/27/24 History pregabalin 75 mg capsule (Lyrica) 100 mg PO TID pain 0 05/25/22 06/06/22 History hydrochlorothiazide 12.5 mg tablet 12.5 mg PO DAILY Bl ood pressure 06/07/22 Unknown History vibegron 75 mg tablet (Gemtesa) 75 mg PO DAILY Overact cassidy bladder 12/04/22 Unknown History metformin 500 mg tablet,extended 1,000 mg PO BID Diabe freda 10/04/24 10/04/24 05:30 History release 24 hr polysaccharide iron complex 150 mg 65 mg PO QODAY Supp lement 06/27/24 Unknown History iron capsule (Ferrex) losartan 100 mg tablet 100 mg PO DAILY bp 30 days # 30 tabs 07/15/24 Unknown Rx oxycodone 5 mg tablet 5 - 10 mg (1 - 2 x 5 mg) PO Q4H 07/15/24 Unknown Rx PRN PRN Pain Score 4-10 7 days #84 tabs potassium chloride 20 mEq 20 meq PO DAILYCM supplement 30 07/15/24 Unknown Rx tablet,extended release(part/cryst) days #30 tabs arginine 7 gram-glutam 7 1 packet PO DAILY supplement 09/24/24 Unknown History gram-CaHMB 1.5 [id number] oral pwd pkt (Shwetha (with collagen)) cephalexin 500 mg capsule 500 mg PO Q6H 7 days #28 cap s 09/26/24 Unknown Rx ciprofloxacin HCl 500 mg tablet 500 mg PO BID #14 tabs 09/29/24 Unknown Rx (Cipro) Allergy/AdvReac Type Severity Reaction Status Date / Time latex Allergy Severe Other Verified 09/23/24 16:23 shellfish derived Allergy Severe PASSED Verified 09/23/24 16:23 OUT, DIARRHEA adhesive Allergy Mild Rash Verified 09/23/24 16:23 levofloxacin AdvReac Intermediate WEAK, Verified 09/23/24 16:23 NAUSEA povidone AdvReac Mild Hives Verified 09/23/24 16:23 Surgical History History of bilateral cataract extraction History of colonoscopy S/P insertion of spinal cord stimulator History of partial thyroidectomy History of appendectomy History of left knee surgery History of hysterectomy History of cholecystectomy Social History household members: spouse Smoking Status: Never smoker Electronic Cigarette Use: not used second hand exposure: No alcohol intake: current alcohol intake frequency: a few times a month Alcohol type: wine substance use type: does not use Vital Signs Vital Signs Vital Signs: 12/02/24 14:03 Temperature 96.0 F L Temperature Source Temporal Pulse Rate 65 Respiratory Rate 18 Blood Pressure 127/61 H Blood Pressure Mean 83 Blood Pressure Source Monitor Blood Pressure Position Semi-Fowlers Blood Pressure Location Right Arm Oxygen Delivery Method Room Air Weight Weight: 180 lb 13.313 oz Body Mass Index (BMI) 34.1 Physical Exam Const alert, oriented x3, no apparent distress, no limitations, healthy appearing and well nourished General Appearance: cooperative, comfortable, well kempt and well developed Orientation / Consciousness: awake, oriented to person, oriented to place and oriented to time Exam Limitations: no limitations HEENT normocephalic, head/scalp atraumatic and hearing grossly normal bilaterally Head and Scalp: normal to inspection, normocephalic and atraumatic Face and Sinus: normal facial exam Nose: external nose normal External Ear: external ears normal Eyes EOMs intact bilaterally General Eye: normal appearance of both eyes Neck full ROM Resp normal respiratory effort, normal air movement, no retractions and no use of accessory muscles Effort and Inspection: able to speak in complete sentences Extremity no calf tenderness General Extremity: Negative for clubbing or cyanosis Skin Wound Narrative: A dehiscent longitudinal surgical incision is noted overlying the left knee. The dehiscence extendsthrough all layers and into the subcutaneous tissues, though most is now healed and epithelialized.. There is no odor. Dimensions are documented elsewhere. The size and depth of the wound continue todiminish. However, there is now a very small eschar remaining, from which the patient states that there has been purulent drainage within the last week. Indeed, manual pressure adjacent to this smalleschar, expels a small amount of liquid purulent material. This purulent drainage was cultured for aerobic and anaerobic bacterial growth. Once the overlying eschar was removed, exploration of the site revealed there to be undermining of the wound at the 9 o'clock position. The undermining extendedapproximately 8 mm. The patient's wound now entails a relatively small opening to a shallow abscesscavity with undermining which extends medially at the 9 o'clock position. A very small superficial ulceration persists within the incision just inferior to the small abscess cavity. The remaining portion of the incision, located inferiorly, remains completely healed and epithelialized. Minimal swelling and edema are noted. Hair: normal Neuro oriented x3, CN's II-XII intact bilaterally, moves all extremities, no focal motor deficits and no sensory deficits noted Sensorium / Orientation: awake, alert, oriented to person, oriented to place andoriented to time Cranial Nerves: CN normal except as noted Speech: speech normal Psych Appearance: grossly normal and appropriate Attitude: calm Activity / Motor Behavior: appropriate eye contact Speech: normal speech Mood & Affect: euthymic mood Thought Process: normal thought process Thought Content: normal thought content Attention / Concentration: attention grossly intact Debridement Note Debridement Note Wound debrided: Dehiscent left knee surgical incision Laterality: Left Type of Debridement: Excisional debridement Anesthesia Used: 5% Lidocaine Gel, Cetacaine and - (Lidocaine with epinephrine per injection) Depth: Down to and including healthy tissue and in the subcutaneous layer Percentage of wound debrided: 100 Instrument Used: 3mm curette, #15 blade, Forceps and - (Cuticle scissors) Tissue Removed: Bioburden Severity: Fat Layer Exposed Amount of bleeding with debridement: Mild Bleeding Controlled with: Compression and gauze Patient tolerated procedure: Patient tolerated procedure well Debridement Free Text: During the course of physical examination today, it was noted that there waspurulent drainage from the remaining portion of the wound, which could be expressed by manual pressure at the site. This purulent drainagewas cultured for aerobic and anaerobic bacterial growth. Probing of the underlying cavity revealed significant undermining extending medially for approximately 8mm. Therefore, the decision was made to unroofed this area, in an effort to enhance healing by secondary intention. The area was prepped with Betadine. Lidocaine with epinephrine was injected subcutaneously to provide an adequate level of local anesthesia. A #15 scalpel blade and forceps were then u sed to sharply excise the overlying dermal and fat layers to unroof the abscesscavity. This was accomplished with minimal discomfort to the patient. Once theabscess cavity had been unroofed, the areawas packed with moistened 1/4 inch NuGauze. The patient tolerated the procedure well. Post-Debridement Measurements and Additional Note: Post-Debridement Measurements/Treatment - Nurse 1 - General Ulcer Assessment Start: 11/25/24 14:44 Freq: Status: Active Protocol: KENNY Activity Type Activity Date Activity User E-sign Co-sign Detail Recorded Client Recorded Date Recorded By Document 11/25/24 14:44 ML [id number] 11/25/24 14:50 ML Document 12/02/24 14:03 KW [id number] 12/02/24 14:09 KW 11/25/24 12/02/24 14:44 14:03 - Today's Visit Information Type of service Follow-up Visit Follow-up Visit (Physician/OPENING MACHINE CLEANER (Physician/OPENING MACHINE CLEANER ) ) Arrival Mode Cane Ambulatory,Cane Transfer Assistance None Accompanied by Patient Identification Verified (Name & Yes Yes ) Patient Requires Transmission-Based No Precautions Finger Stick Blood Sugar(mg/dl) (if 166 indicated): Blood Sugar Stated by Patient Height and Weight Body Mass Index (BMI) 34.1 34.1 BMI Classification Obese Obese Vital Signs Temperature (97.8 F-99.1 F) 97 F L 96.0 F L Temperature Source Temporal Temporal Pulse Rate (60-100) 73 65 Pulse Location Monitor Monitor Respiratory Rate (12-18) 15 18 Respiratory rate source Observation Observation Oxygen Delivery Method Room Air Blood Pressure (90/60-120/80) 127/67 H 127/61 H Blood Pressure Mean 87 83 Source Monitor Monitor Position Sitting Semi-Fowlers Blood Pressure Location Right Arm Right Arm History Since Last Visit- (Skip if this is Patient's initial visit) Have you changed medications since your No No last visit? Any new allergies or adverse reactions No No Had a fall/change in ADL's that may No No increase risk of falls Signs or symptoms of abuse and/or No No neglect since last visit Have you been in the hospital since your No No last visit? Has dressing in place as prescribed Yes Yes Has compression in place as prescribed N/A Yes Has offloadiing in place as prescribed N/A N/A Experienced any changes in pain level or No No management Left Footwear Regular Shoe Right Footwear Regular Shoe Pain Scale: 0-10 Numeric Is Patient Pain Free? Yes Yes WC - Nurse 1 - General Ulcer Measurement Start: 11/25/24 14:44 Freq: Status: Active Protocol: Activity Type Activity Date Activity User E-sign Co-sign Detail Recorded Client Recorded Date Recorded By Document 11/25/24 14:44 ML [id number] 11/25/24 14:50 ML Document 12/02/24 14:03 KW [id number] 12/02/24 14:09 KW 11/25/24 12/02/24 14:44 14:03 Wound Center Nurse 1 #2 Left Knee Inf -Current Size (cm) - Length 0.8 0.1 -Current Size (cm) - Width 0.5 0.1 -Current Size (cm) - Depth 0.1 0 -Total Square Cm 0.40 0.01 -Date of Last Picture (Recall this 12/02/24 field) -Epithelialization Large 67-100% -Exudate Amt Medium Small -Exudate Type Serosanguineous Purulent -Wound Margin Indistinct, Non -Visible -Granulation Amt Medium (34-66%) Large (67-100%) -Slough/Fibrin Yes -Necrosis Amt Medium (34-66%) Small (1-33%) -Necrotic Tissue Type Adherent Slough Adherent Slough -Texture (Anali-wound Skin Appearance) Assessed Assessed -Moisture (Anali-wound Skin Appearance) Assessed Assessed -Color (Anali-wound Skin Appearance) Assessed Assessed -Temperature (Anali-wound Skin No Abnormality No Abnormality Appearance) (Pt Warm) (Pt Warm) -Tenderness on Palpation (Anali-wound No No Skin Appearance) -Ulcer Cleansing Rinsed/ Rinsed/ Irrigated with Irrigated with Saline Saline -Foul Odor after Cleansing No No -Anesthetic Used 5% Lidocaine 5% Lidocaine Gel Gel #1,.L knee -Current Size (cm) - Length 0.1 0.1 -Current Size (cm) - Width 0.1 0.1 -Current Size (cm) - Depth 0.1 0 -Total Square Cm 0.01 0.01 -Date of Last Picture (Recall this 12/02/24 field) -Exudate Amt None Present Small -Exudate Type Purulent -Wound Margin Indistinct, Non -Visible -Granulation Amt None Present (0 %) -Slough/Fibrin No -Necrosis Amt None Present (0 Small (1-33%) %) -Necrotic Tissue Type Adherent Slough -Texture (Anali-wound Skin Appearance) Assessed -Moisture (Anali-wound Skin Appearance) Assessed -Color (Anali-wound Skin Appearance) Assessed -Temperature (Anali-wound Skin No Abnormality No Abnormality Appearance) (Pt Warm) (Pt Warm) -Tenderness on Palpation (Anali-wound No No Skin Appearance) -Ulcer Cleansing Rinsed/ Irrigated with Saline -Foul Odor after Cleansing No -Anesthetic Used 5% Lidocaine Gel WC - Nurse 2 - General Ulcer CM Notes Start: 11/25/24 14:44 Freq: Status: Active Protocol: Activity Type Activity Date Activity User E-sign Co-sign Detail Recorded Client Recorded Date Recorded By Document 11/25/24 15:33 DS [id number] 11/25/24 15:35 DS Document 12/02/24 14:24 DS [id number] 12/02/24 14:35 DS Edit Result 12/02/24 14:24 DS (1) [id number] 12/02/24 14:38 DS (1) #1,.L knee - Wound Comment(s) => 9? tunnel w/ 0.8cm depth was unroofed. 11/25/24 12/02/24 15:33 14:24 Wound Center Nurse 2 #2 Left Knee Inf -Time 15:34 -Correct Patient Yes -Procedure Performed No -Wound/Ulcer Outcome Healed- Epithelialized #1,.L knee -Time 15:32 14:00 -Correct Patient Yes Yes -Correct Side, Site, Position Yes Yes -Correct Procedure Yes Yes -Procedure Performed Yes Yes -Type of Procedure Debridement Debridement -Clinical Debridement Subcutaneous Subcutaneous -Tissue Removed Subcutaneous Subcutaneous -Post Debridement (cm) - Length 0.5 0.3 -Post Debridement (cm) - Width 0.6 1.2 -Post Debridement (cm) - Depth 0.1 0.3 -Total Square (Post) (cm) 0.30 0.36 -Area of Debridement (cm) - Length 0.5 0.3 -Area of Debridement (cm) - Width 0.6 1.2 -Total Square (Area) (cm) 0.30 0.36 -Tunneling No No -Undermining/Tunneling No No -Circular Undermining No No -Wound/Ulcer Outcome Not Healed Not Healed -Ulcer Cleansing Rinsed/ Rinsed/ Irrigated with Irrigated with Saline Saline -Foul Odor after Cleansing No No -Bioengineered Tissue No No -Injectable Lidocaine w/ Epi (%) 1 -Injectable Lidocaine w/ Epi (mls) 10 -Bleeding Controlled with Pressure Pressure -Treatment Response Procedure Procedure Tolerated Well Tolerated Well -Debridement - Subq, 1st 20sq cm Yes Yes -Wound Comment(s) 9? tunnel w/ 0. 8cm depth was unroofed. Pain Scale: 0-10 Numeric Is Patient Pain Free? Yes Yes WC - Nurse 3 - General Ulcer D/C NN Start: 11/25/24 14:44 Freq: Status: Active Protocol: Activity Type Activity Date Activity User E-sign Co-sign Detail Recorded Client Recorded Date Recorded By Document 11/25/24 15:55 ML [id number] 11/25/24 15:56 ML Document 12/02/24 14:42 KW [id number] 12/02/24 14:44 KW 11/25/24 12/02/24 15:55 14:42 Wound Care Center Nurse 3 #2 Left Knee Inf -Ulcer Cleansing Rinsed/ Irrigated with Saline -Primary Dressing Applied Promogran -Primary Dressing Covered/Secured with Dry Gauze & Roll Gauze, Secured with Tape -Promogran 1 #1,.L knee -Primary Dressing Applied C Hydrogel, Nugauze, Iodoform 1/4in -Other Dressing abd/ kerlix/vikas -Primary Dressing Covered/Secured with Dry Gauze,Dry Gauze & Roll Gauze,Secured with Tape -Hydrogel 1 -Nugauze, Iodoform 1/4 1 left knee -Other vikas Treatment Response Procedure Tolerated Well Pain Scale: 0-10 Numeric Is Patient Pain Free? Yes Yes WC - Visit Discharge Discharge Condition Stable Ambulatory Status Ambulatory,Cane Transportation Private Auto Accompanied by Medication Reconcilliation completed & No provided to patient/care provider Clinical Summary of Care Provided Yes Lab / Micro Data Micro: Microbiology 12/02/24 14:16 Wound - Knee Gram Stain - Final 12/02/24 14:16 Wound - Knee Wound Culture - Preliminary No growth-Final to follow Charges/Coding Procedures Integumentary [id number]: [id number] [place] subq tissue 20 sq cm/< Assessment/Plan Assessment/Plan (1) Non-pressure chronic ulcer of left thigh with fat layer exposed: CODE(S): L97.122 - Non-pressure chronic ulcer of left thigh with fat layerexposed (2) Dehiscence of incision: CODE(S): T81.31XA - Disruption of external operation (surgical) wound, notelsewhere classified, initial encounter QUALIFIERS: Encounter type: subsequent encounter Qualified Code(s): T81.31XD - Disruption of external operation (surgical) wound, not elsewhere classified, subsequent encounter (3) Gangrene associated with type 2 diabetes mellitus: CODE(S): E11.52 - Type 2 diabetes mellitus with diabetic peripheral angiopathy with gangrene (4) Status post revision of total replacement of left knee: CODE(S): Z96.652 - Presence of left artificial knee joint (5) Failed total left knee replacement: CODE(S): T84.093A - Other mechanical complication of internal left knee prosthesis, initial encounter QUALIFIERS: Encounter type: subsequent encounter Qualified Code(s): T84.093D - Other mechanical complication of internal left knee prosthesis, subsequent encounter (6) History of left knee surgery: CODE(S): Z98.890 - Other specified postprocedural states (7) Diabetes: CODE(S): E11.9 - Type 2 diabetes mellitus without complications QUALIFIERS: Diabetes mellitus type: type 2 (8) Diabetic polyneuropathy: CODE(S): E11.42 - Type 2 diabetes mellitus with diabetic polyneuropathy (9) GERD (gastroesophageal reflux disease): CODE(S): K21.9 - Gastro-esophageal reflux disease without esophagitis (10) Hyperlipemia: CODE(S): E78.5 - Hyperlipidemia, unspecified (11) Iron deficiency anemia: CODE(S): D50.9 - Iron deficiency anemia, unspecified (12) Essential (primary) hypertension: CODE(S): I10 - Essential (primary) hypertension (13) Debility: CODE(S): R53.81 - Other malaise (14) Status post total right knee replacement: CODE(S): Z96.651 - Presence of right artificial knee joint (15) Osteoarthritis: (16) History of DVT (deep vein thrombosis): CODE(S): Z86.718 - Personal history of other venous thrombosis and embolism (17) Dyslipidemia: CODE(S): E78.5 - Hyperlipidemia, unspecified (18) Hypothyroidism: CODE(S): E03.9 - Hypothyroidism, unspecified (19) Ocular myasthenia gravis: CODE(S): G70.00 - Myasthenia gravis without (acute) exacerbation (20) History of partial thyroidectomy: CODE(S): E89.0 - Postprocedural hypothyroidism (21) History of appendectomy: CODE(S): Z90.49 - Acquired absence of other specified parts of digestive tract (22) History of hysterectomy: CODE(S): Z90.710 - Acquired absence of both cervix and uterus (23) History of cholecystectomy: CODE(S): Z90.49 - Acquired absence of other specified parts of digestive tract (24) Non-smoker: CODE(S): Z78.9 - Other specified health status (25) History of hiatal hernia: CODE(S): Z87.19 - Personal history of other diseases of the digestive system (26) History of revision of total replacement of left knee joint: CODE(S): Z96.652 - Presence of left artificial knee joint (27) History of bilateral cataract extraction: CODE(S): Z98.41 - Cataract extraction status, right eye; Z98.42 - Cataractextraction status, left eye PLAN: Plan This is a 74-year-old female who underwent the fourth revision of a left total knee replacement on June 19, 2024. She developed gangrene, necrosis, and dehiscence at the surgical site. As a result, the patient presented for definitive evaluation and management with respect to her surgical wound. The large amount of necrotic and nonviable tissue has been eliminated from the site of the patient's surgical wound during her initial visits. Negative pressure wound therapy was implemented by means of the Wound VAC until recently. The patient's surgical wound dehiscence has shown steady progress and improvement. There has been significant healing and epithelization at the site. In fact, thewound is nearly healed. However, the patient presented today with a small eschar at the site, from which purulent material has been draining. The drainage has been cultured today for aerobic and anaerobic bacterial growth. Culture results will be awaited. A more extensive debridement was performed today, unroofing the abscess cavity in the area of undermining. The procedure was well- tolerated by thepatient. The abscess cavity has been packed with moistened 1/4 inch Nu Gauze. The patient and her have been instructed in the appropriate means of wound packing using moistened 1/4 inch Nu Gauze. They have been provided the appropriate and necessary supplies to do so. The patient has been encouraged to optimize her nutritional intake, as well as her diabetes management. She has been encouraged to continue taking protein nutritional drinks on a daily basis. She is to coordinate with her primary carephysician with regard to diabetes management. She has been encouraged to elevate her left lower extremity to prevent and minimize swelling. Elevation isto be to heart level, during both daytime and nighttime hours. Avoidance of prolonged idle sitting has been encouraged. Activity as tolerated has been encouraged. Tubigrip's have been dispensed for compression purposes. The patient is to follow-up in 2 weeks for reevaluation. Total time: 28 minutes 12/03/24 1304 Cosigner Signature (if applicable): CC: ~ Signed [facility]03-08-2025 History and physical note Author Anthony Esquivel [facility] Note Date/Time November 29, 2024 12:2 5pm [facility] [address] [place] [address] H&P Exam - Wound Care 11/29/24 1316 MR#: [id number] Acct: [id number] Name: LEOBARDO VALDEZ Rep #:[id number] 1 : 1950 74 From: Anthony Ortega PCP: Dr. Aashish Bahnea MD Status:RE G RCR Location: History of Present Illness Date of Service: 11/25/24 Chief Complaint: Dehiscent, necrotic surgical wound of the left knee History of Wound: This is a 74-year-old female with a history of left total kneereplacement many years ago, which has required several revisions. The most recent revision was performed on June 19, 2024, at the [facility]. This was the fourth left knee revision. Prior revisions required flap reconstruction, and the Plastic Surgery service was involved in the patient's most recent surgery. Postoperatively, the patient was placed on oral doxycycline, which is expected to continue for 3 months. The patient's left lower extremity was locked in extension for 2 weeks. She is now weightbearing on the involved limb. She was admitted to the Transitional Care Unit at [facility] for several weeks postoperatively on June 27, 2024. She has returned to home, with under water assistant care from her . The patient developed a surgical wound dehiscence and marjorie necrosis and gangrene at the site of her incision. A wound VAC was used initially at the surgical site, but the patient had been using Xeroform more recently. The patient suffers from multiple pre-existing medical conditions, listed herein. She does not smoke. She is using Shwetha as a nutritional supplement. Her BMI is 34.1. 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 Dehiscence of incision History of revision of total replacement of left knee joint Wears glasses Alcohol use History of steroid therapy Bladder disease Neuropathy Back pain Dietary restriction History of pain when walking Pain Myasthenia gravis Ambulates with cane Rheumatoid arthritis Low iron History of DVT (deep vein thrombosis) Hyperlipemia Difficulty swallowing History of hiatal hernia Gastric reflux Non-smoker Shortness of breath on exertion Chronic cough PONV (postoperative nausea and vomiting) Leg cramps History of edema History of stress test Hypertension Thyroid disease Cataracts, bilateral History of UTI Arthritis Home Medications ?Medication ?Instructions ?Recorded ?Last Taken ?Type folic acid 1 mg tablet 1 mg PO DAILY supplement 06/06/22 History atorvastatin 10 mg tablet 5 mg PO .QOD Cholesterol 06/26/24 18:45 History cholecalciferol (vitamin D3) 50 50 mcg PO DAILY supple ment 09/06/21 06/27/24 History mcg (2,000 unit) capsule ascorbic acid (vitamin C) 500 mg 500 mg PO DAILY suppl ement 02/06/22 06/27/24 History tablet (Vitamin C) dapagliflozin propanediol 5 mg 10 mg PO DAILY blood michaels gar 05/25/22 06/06/22 History tablet (Farxiga) levothyroxine 125 mcg tablet 100 mcg PO DAILY thyroid 05/25/22 06/27/24 History pregabalin 75 mg capsule (Lyrica) 100 mg PO TID pain 0 05/25/22 06/06/22 History hydrochlorothiazide 12.5 mg tablet 12.5 mg PO DAILY Bl ood pressure 06/07/22 Unknown History vibegron 75 mg tablet (Gemtesa) 75 mg PO DAILY Overact cassidy bladder 12/04/22 Unknown History metformin 500 mg tablet,extended 1,000 mg PO BID Diabe freda 06/27/24 06/27/24 05:30 History release 24 hr polysaccharide iron complex 150 mg 65 mg PO QODAY Supp lement 06/27/24 Unknown History iron capsule (Ferrex) losartan 100 mg tablet 100 mg PO DAILY bp 30 days # 30 tabs 07/15/24 Unknown Rx oxycodone 5 mg tablet 5 - 10 mg (1 - 2 x 5 mg) PO Q4H 07/15/24 Unknown Rx PRN PRN Pain Score 4-10 7 days #84 tabs potassium chloride 20 mEq 20 meq PO DAILYCM supplement 30 07/15/24 Unknown Rx tablet,extended release(part/cryst) days #30 tabs arginine 7 gram-glutam 7 1 packet PO DAILY supplement 09/24/24 Unknown History gram-CaHMB 1.5 char-jaxeg-za-min oral pwd pkt (Shwetha (with collagen)) cephalexin 500 mg capsule 500 mg PO Q6H 7 days #28 cap s 09/26/24 Unknown Rx ciprofloxacin HCl 500 mg tablet 500 mg PO BID #14 tabs 09/29/24 Unknown Rx (Cipro) Allergy/AdvReac Type Severity Reaction Status Date / Time latex Allergy Severe Other Verified 09/23/24 16:23 shellfish derived Allergy Severe PASSED Verified 09/23/24 16:23 OUT, DIARRHEA adhesive Allergy Mild Rash Verified 09/23/24 16:23 levofloxacin AdvReac Intermediate WEAK, Verified 09/23/24 16:23 NAUSEA povidone AdvReac Mild Hives Verified 09/23/24 16:23 Surgical History History of bilateral cataract extraction History of colonoscopy S/P insertion of spinal cord stimulator History of partial thyroidectomy History of appendectomy History of left knee surgery History of hysterectomy History of cholecystectomy Social History household members: spouse Smoking Status: Never smoker Electronic Cigarette Use: not used second hand exposure: No alcohol intake: current alcohol intake frequency: a few times a month Alcohol type: wine substance use type: does not use Vital Signs Vital Signs Vital Signs: Weight Weight: 180 lb 13.313 oz Body Mass Index (BMI) 34.1 Physical Exam Const alert, oriented x3, no apparent distress, no limitations, healthy appearing and well nourished General Appearance: cooperative, comfortable, well kempt and well developed Orientation / Consciousness: awake, oriented to person, oriented to place and oriented to time Exam Limitations: no limitations HEENT normocephalic, head/scalp atraumatic and hearing grossly normal bilaterally Head and Scalp: normal to inspection, normocephalic and atraumatic Face and Sinus: normal facial exam Nose: external nose normal External Ear: external ears normal Eyes EOMs intact bilaterally General Eye: normal appearance of both eyes Neck full ROM Resp normal respiratory effort, normal air movement, no retractions and no use of accessory muscles Effort and Inspection: able to speak in complete sentences Extremity no calf tenderness General Extremity: Negative for clubbing or cyanosis Skin Wound Narrative: A dehiscent longitudinal surgical incision is noted overlying the left knee. The dehiscence extends through all layers and into the subcutaneous tissues. There is no odor or drainage. There is no sign of infection or cellulitis. Dimensions are documented elsewhere. The size and depth of the wound continue to diminish. The base of the wound demonstrates healthy, pink granulation tissue. There is a small amount of bioburden. The margins of the wound appear well beveled, with evidence of peripheral epithelialization. Centrally, the area of exposed fascia has been eliminated by the overgrowth of healthy, pink granulation tissue. The inferior portion of the wound had demonstrated completeepithelialization. The maceration and erythema in the periwound area, noted last week, has now resolved. Minimal swelling and edema are noted. Hair: normal Neuro oriented x3, CN's II-XII intact bilaterally, moves all extremities, no focal motor deficits and no sensory deficits noted Sensorium / Orientation: awake, alert, oriented to person, oriented to place andoriented to time Cranial Nerves: CN normal except as noted Speech: speech normal Psych Appearance: grossly normal and appropriate Attitude: calm Activity / Motor Behavior: appropriate eye contact Speech: normal speech Mood & Affect: euthymic mood Thought Process: normal thought process Thought Content: normal thought content Attention / Concentration: attention grossly intact Debridement Note Debridement Note Wound debrided: Dehiscent left knee surgical incision Laterality: Left Type of Debridement: Excisional debridement Anesthesia Used: 5% Lidocaine Gel and Cetacaine Depth: Down to and including healthy tissue and in the subcutaneous layer Percentage of wound debrided: 100 Instrument Used: 5mm curette Tissue Removed: Bioburden Severity: Fat Layer Exposed Amount of bleeding with debridement: Mild Bleeding Controlled with: Compression and gauze Patient tolerated procedure: Patient tolerated procedure well Post-Debridement Measurements and Additional Note: Post-Debridement Measurements/Treatment - Nurse 1 - General Ulcer Assessment Start: 11/25/24 14:44 Freq: Status: Active Protocol: LOWEXT Activity Type Activity Date Activity User E-sign Co-sign Detail Recorded Client Recorded Date Recorded By Document 11/25/24 14:44 ML [id number] 11/25/24 14:50 ML 11/25/24 14:44 - Today's Visit Information Type of service Follow-up Visit (Physician/OPENING MACHINE CLEANER ) Arrival Mode Cane Transfer Assistance None Patient Identification Verified (Name & Yes ) Patient Requires Transmission-Based No Precautions Finger Stick Blood Sugar(mg/dl) (if 166 indicated): Blood Sugar Stated by Patient Height and Weight Body Mass Index (BMI) 34.1 BMI Classification Obese Vital Signs Temperature (97.8 F-99.1 F) 97 F L Temperature Source Temporal Pulse Rate (60-100) 73 Pulse Location Monitor Respiratory Rate (12-18) 15 Respiratory rate source Observation Blood Pressure (90/60-120/80) 127/67 H Blood Pressure Mean 87 Source Monitor Position Sitting Blood Pressure Location Right Arm History Since Last Visit- (Skip if this is Patient's initial visit) Have you changed medications since your No last visit? Any new allergies or adverse reactions No Had a fall/change in ADL's that may No increase risk of falls Signs or symptoms of abuse and/or No neglect since last visit Have you been in the hospital since your No last visit? Has dressing in place as prescribed Yes Has compression in place as prescribed N/A Has offloadiing in place as prescribed N/A Experienced any changes in pain level or No management Pain Scale: 0-10 Numeric Is Patient Pain Free? Yes - Nurse 1 - General Ulcer Measurement Start: 11/25/24 14:44 Freq: Status: Active Protocol: Activity Type Activity Date Activity User E-sign Co-sign Detail Recorded Client Recorded Date Recorded By Document 11/25/24 14:44 ML [id number] 11/25/24 14:50 ML 11/25/24 14:44 Wound Center Nurse 1 #2 Left Knee Inf -Current Size (cm) - Length 0.8 -Current Size (cm) - Width 0.5 -Current Size (cm) - Depth 0.1 -Total Square Cm 0.40 -Exudate Amt Medium -Exudate Type Serosanguineous -Granulation Amt Medium (34-66%) -Slough/Fibrin Yes -Necrosis Amt Medium (34-66%) -Necrotic Tissue Type Adherent Slough -Texture (Anali-wound Skin Appearance) Assessed -Moisture (Anali-wound Skin Appearance) Assessed -Color (Anali-wound Skin Appearance) Assessed -Temperature (Anali-wound Skin No Abnormality Appearance) (Pt Warm) -Tenderness on Palpation (Anali-wound No Skin Appearance) -Ulcer Cleansing Rinsed/ Irrigated with Saline -Foul Odor after Cleansing No -Anesthetic Used 5% Lidocaine Gel #1,.L knee -Current Size (cm) - Length 0.1 -Current Size (cm) - Width 0.1 -Current Size (cm) - Depth 0.1 -Total Square Cm 0.01 -Exudate Amt None Present -Granulation Amt None Present (0 %) -Slough/Fibrin No -Necrosis Amt None Present (0 %) -Temperature (Anali-wound Skin No Abnormality Appearance) (Pt Warm) -Tenderness on Palpation (Anali-wound No Skin Appearance) WC - Nurse 2 - General Ulcer CM Notes Start: 11/25/24 14:44 Freq: Status: Active Protocol: Activity Type Activity Date Activity User E-sign Co-sign Detail Recorded Client Recorded Date Recorded By Document 11/25/24 15:33 DS [id number] 11/25/24 15:35 DS 11/25/24 15:33 Wound Center Nurse 2 #2 Left Knee Inf -Time 15:34 -Correct Patient Yes -Procedure Performed No -Wound/Ulcer Outcome Healed- Epithelialized #1,.L knee -Time 15:32 -Correct Patient Yes -Correct Side, Site, Position Yes -Correct Procedure Yes -Procedure Performed Yes -Type of Procedure Debridement -Clinical Debridement Subcutaneous -Tissue Removed Subcutaneous -Post Debridement (cm) - Length 0.5 -Post Debridement (cm) - Width 0.6 -Post Debridement (cm) - Depth 0.1 -Total Square (Post) (cm) 0.30 -Area of Debridement (cm) - Length 0.5 -Area of Debridement (cm) - Width 0.6 -Total Square (Area) (cm) 0.30 -Tunneling No -Undermining/Tunneling No -Circular Undermining No -Wound/Ulcer Outcome Not Healed -Ulcer Cleansing Rinsed/ Irrigated with Saline -Foul Odor after Cleansing No -Bioengineered Tissue No -Bleeding Controlled with Pressure -Treatment Response Procedure Tolerated Well -Debridement - Subq, 1st 20sq cm Yes Pain Scale: 0-10 Numeric Is Patient Pain Free? Yes GINA - Nurse 3 - General Ulcer D/C NN Start: 11/25/24 14:44 Freq: Status: Active Protocol: Activity Type Activity Date Activity User E-sign Co-sign Detail Recorded Client Recorded Date Recorded By Document 11/25/24 15:55 ML [id number] 11/25/24 15:56 ML 11/25/24 15:55 Wound Care Center Nurse 3 #2 Left Knee Inf -Ulcer Cleansing Rinsed/ Irrigated with Saline -Primary Dressing Applied Promogran -Primary Dressing Covered/Secured with Dry Gauze & Roll Gauze, Secured with Tape -Promogran 1 Pain Scale: 0-10 Numeric Is Patient Pain Free? Yes Charges/Coding Procedures Integumentary [id number]: [id number] Trinidad subq tissue 20 sq cm/< Assessment/Plan Assessment/Plan (1) Non-pressure chronic ulcer of left thigh with fat layer exposed: CODE(S): L97.122 - Non-pressure chronic ulcer of left thigh with fat layerexposed (2) Dehiscence of incision: CODE(S): T81.31XA - Disruption of external operation (surgical) wound, notelsewhere classified, initial encounter QUALIFIERS: Encounter type: subsequent encounter Qualified Code(s): T81.31XD - Disruption of external operation (surgical) wound, not elsewhere classified, subsequent encounter (3) Gangrene associated with type 2 diabetes mellitus: CODE(S): E11.52 - Type 2 diabetes mellitus with diabetic peripheral angiopathy with gangrene (4) Status post revision of total replacement of left knee: CODE(S): Z96.652 - Presence of left artificial knee joint (5) Failed total left knee replacement: CODE(S): T84.093A - Other mechanical complication of internal left knee prosthesis, initial encounter QUALIFIERS: Encounter type: subsequent encounter Qualified Code(s): T84.093D - Other mechanical complication of internal left knee prosthesis, subsequent encounter (6) History of left knee surgery: CODE(S): Z98.890 - Other specified postprocedural states (7) Diabetes: CODE(S): E11.9 - Type 2 diabetes mellitus without complications QUALIFIERS: Diabetes mellitus type: type 2 (8) Diabetic polyneuropathy: CODE(S): E11.42 - Type 2 diabetes mellitus with diabetic polyneuropathy (9) GERD (gastroesophageal reflux disease): CODE(S): K21.9 - Gastro-esophageal reflux disease without esophagitis (10) Hyperlipemia: CODE(S): E78.5 - Hyperlipidemia, unspecified (11) Iron deficiency anemia: CODE(S): D50.9 - Iron deficiency anemia, unspecified (12) Essential (primary) hypertension: CODE(S): I10 - Essential (primary) hypertension (13) Debility: CODE(S): R53.81 - Other malaise (14) Status post total right knee replacement: CODE(S): Z96.651 - Presence of right artificial knee joint (15) Osteoarthritis: (16) History of DVT (deep vein thrombosis): CODE(S): Z86.718 - Personal history of other venous thrombosis and embolism (17) Dyslipidemia: CODE(S): E78.5 - Hyperlipidemia, unspecified (18) Hypothyroidism: CODE(S): E03.9 - Hypothyroidism, unspecified (19) Ocular myasthenia gravis: CODE(S): G70.00 - Myasthenia gravis without (acute) exacerbation (20) History of partial thyroidectomy: CODE(S): E89.0 - Postprocedural hypothyroidism (21) History of appendectomy: CODE(S): Z90.49 - Acquired absence of other specified parts of digestive tract (22) History of hysterectomy: CODE(S): Z90.710 - Acquired absence of both cervix and uterus (23) History of cholecystectomy: CODE(S): Z90.49 - Acquired absence of other specified parts of digestive tract (24) Non-smoker: CODE(S): Z78.9 - Other specified health status (25) History of hiatal hernia: CODE(S): Z87.19 - Personal history of other diseases of the digestive system (26) History of revision of total replacement of left knee joint: CODE(S): Z96.652 - Presence of left artificial knee joint (27) History of bilateral cataract extraction: CODE(S): Z98.41 - Cataract extraction status, right eye; Z98.42 - Cataractextraction status, left eye PLAN: Plan This is a 74-year-old female who underwent the fourth revision of a left total knee replacement on June 19, 2024. She developed gangrene, necrosis, and dehiscence at the surgical site. As a result, the patient presented for definitive evaluation and management with respect to her surgical wound. The large amount of necrotic and nonviable tissue has been eliminated from the site of the patient's surgical wound since her initial presentation. Negative pressure wound therapy was implemented by means of the Wound VAC until recently. There are increasing areas of healthy, pink granulation tissue, which now covers the entirety of the wound. The wound appears to be decreasing in size and depth, and is now quite small. Preauthorization has been received for the use of cellular tissue products. Therefore, EpiFix allograft applications have been used recently, the most recent of which was the sixth such application. Because of the small size of the wound, and recent progress, we are to continue the use of Promogran applied topically on a daily basis. The patient has been instructed in the appropriate means of application. The patient has been encouraged to optimize her nutritional intake, as well as her diabetes management. She has been encouraged to continue taking protein nutritional drinks on a daily basis. She is to coordinate with her primary care physician with regard to diabetes management. She has been encouraged to elevate her leftlower extremity to prevent and minimize swelling. Elevation is to be to heart level, during both daytime and nighttime hours. Avoidance of prolonged idle sitting has been encouraged. Activity as tolerated has been encouraged. Tubigrip's have been dispensed for compression purposes. The patient is to follow-up in 1 week for reevaluation. Total time: 24 minutes 11/29/24 1325 <Electronically signed by Anthony Esquivel MD> Cosigner Signature (if applicable): CC: ~ Signed [facility] Work Phone: [phone] History and physical note [facility] [address] [place] [id number] H&P Exam - Wound Care 11/29/24 1316 MR#: [id number] Acct: [id number] Name: LEOBARDO VALDEZ Rep #:[id number] 1 : 1950 74 From: Anthony Ortega PCP: Dr. Aashish Bahena MD Status:EUFEMIA Landaverde RCR Location: History of Present Illness Date of Service: 11/25/24 Chief Complaint: Dehiscent, necrotic surgical wound of the left knee History of Wound: This is a 74-year-old female with a history of left total kneereplacement many years ago, which has required several revisions. The most recent revision was performed on June 19, 2024, at the [facility]. This was the fourth left knee revision. Prior revisions required flap reconstruction, and the Plastic Surgery service was involved in the patient's most recent surgery. Postoperatively, the patient was placed on oral doxycycline, which is expected to continue for 3 months. The patient's left lower extremity was locked in extension for 2 weeks. She is now weightbearing on the involved limb. She was admitted to the Transitional Care Unit at [facility] for several weeks postoperatively on June 27, 2024. She has returned to home, with under water assistant care from her . The patient developed a surgical wound dehiscence and marjorie necrosis and gangrene at the site of her incision. A wound VAC was used initially at the surgical site, but the patienthad been using Xeroform more recently. The patient suffers from multiple pre-existing medical conditions, listed herein. She does not smoke. She is using Shwetha as a nutritional supplement. Her BMI is34.1. 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 Dehiscence of incision History of revision of total replacement of left knee joint Wears glasses Alcohol use History of steroid therapy Bladder disease Neuropathy Back pain Dietary restriction History of pain when walking Pain Myasthenia gravis Ambulates with cane Rheumatoid arthritis Low iron History of DVT (deep vein thrombosis) Hyperlipemia Difficulty swallowing History of hiatal hernia Gastric reflux Non-smoker Shortness of breath on exertion Chronic cough PONV (postoperative nausea and vomiting) Leg cramps History of edema History of stress test Hypertension Thyroid disease Cataracts, bilateral History of UTI Arthritis Home Medications ?Medication ?Instructions ?Recorded ?Last Taken ?Type folic acid 1 mg tablet 1 mg PO DAILY supplement 06/06/22 History atorvastatin 10 mg tablet 5 mg PO .QOD Cholesterol 06/26/24 18:45 History cholecalciferol (vitamin D3) 50 50 mcg PO DAILY supple ment 09/06/21 06/27/24 History mcg (2,000 unit) capsule ascorbic acid (vitamin C) 500 mg 500 mg PO DAILY suppl ement 02/06/22 06/27/24 History tablet (Vitamin C) dapagliflozin propanediol 5 mg 10 mg PO DAILY blood michaels gar 05/25/22 06/06/22 History tablet (Farxiga) levothyroxine 125 mcg tablet 100 mcg PO DAILY thyroid 05/25/22 06/27/24 History pregabalin 75 mg capsule (Lyrica) 100 mg PO TID pain 0 05/25/22 06/06/22 History hydrochlorothiazide 12.5 mg tablet 12.5 mg PO DAILY Bl ood pressure 06/07/22 Unknown History vibegron 75 mg tablet (Gemtesa) 75 mg PO DAILY Overact cassidy bladder 12/04/22 Unknown History metformin 500 mg tablet,extended 1,000 mg PO BID Diabe freda 06/27/24 06/27/24 05:30 History release 24 hr polysaccharide iron complex 150 mg 65 mg PO QODAY Supp lement 06/27/24 Unknown History iron capsule (Ferrex) losartan 100 mg tablet 100 mg PO DAILY bp 30 days # 30 tabs 07/15/24 Unknown Rx oxycodone 5 mg tablet 5 - 10 mg (1 - 2 x 5 mg) PO Q4H 07/15/24 Unknown Rx PRN PRN Pain Score 4-10 7 days #84 tabs potassium chloride 20 mEq 20 meq PO DAILYCM supplement 30 07/15/24 Unknown Rx tablet,extended release(part/cryst) days #30 tabs arginine 7 gram-glutam 7 1 packet PO DAILY supplement 09/24/24 Unknown History gram-CaHMB 1.5 fdle-zpekq-jm-min oral pwd pkt (Shwetha (with collagen)) cephalexin 500 mg capsule 500 mg PO Q6H 7 days #28 cap s 09/26/24 Unknown Rx ciprofloxacin HCl 500 mg tablet 500 mg PO BID #14 tabs 09/29/24 Unknown Rx (Cipro) Allergy/AdvReac Type Severity Reaction Status Date / Time latex Allergy Severe Other Verified 09/23/24 16:23 shellfish derived Allergy Severe PASSED Verified 09/23/24 16:23 OUT, DIARRHEA adhesive Allergy Mild Rash Verified 09/23/24 16:23 levofloxacin AdvReac Intermediate WEAK, Verified 09/23/24 16:23 NAUSEA povidone AdvReac Mild Hives Verified 09/23/24 16:23 Surgical History History of bilateral cataract extraction History of colonoscopy S/P insertion of spinal cord stimulator History of partial thyroidectomy History of appendectomy History of left knee surgery History of hysterectomy History of cholecystectomy Social History household members: spouse Smoking Status: Never smoker Electronic Cigarette Use: not used second hand exposure: No alcohol intake: current alcohol intake frequency: a few times a month Alcohol type: wine substance use type: does not use Vital Signs Vital Signs Vital Signs: Weight Weight: 180 lb 13.313 oz Body Mass Index (BMI) 34.1 Physical Exam Const alert, oriented x3, no apparent distress, no limitations, healthy appearing and well nourished General Appearance: cooperative, comfortable, well kempt and well developed Orientation / Consciousness: awake, oriented to person, oriented to place and oriented to time Exam Limitations: no limitations HEENT normocephalic, head/scalp atraumatic and hearing grossly normal bilaterally Head and Scalp: normal to inspection, normocephalic and atraumatic Face and Sinus: normal facial exam Nose: external nose normal External Ear: external ears normal Eyes EOMs intact bilaterally General Eye: normal appearance of both eyes Neck full ROM Resp normal respiratory effort, normal air movement, no retractions and no use of accessory muscles Effort and Inspection: able to speak in complete sentences Extremity no calf tenderness General Extremity: Negative for clubbing or cyanosis Skin Wound Narrative: A dehiscent longitudinal surgical incision is noted overlying the left knee. The dehiscence extendsthrough all layers and into the subcutaneous tissues. There is no odor or drainage. There is no sign of infection or cellulitis. Dimensions are documented elsewhere. The size and depth of the wound continue to diminish. The base of the wound demonstrates healthy, pink granulation tissue. There is asmall amount of bioburden. The margins of the wound appear well beveled, with evidence of peripheral epithelialization. Centrally, the area of exposed fascia has been eliminated by the overgrowth of healthy, pink granulation tissue. The inferior portion of the wound had demonstrated completeepithelialization. The maceration and erythema in the periwound area, noted last week, has now resolved. Minimal swelling and edema are noted. Hair: normal Neuro oriented x3, CN's II-XII intact bilaterally, moves all extremities, no focal motor deficits and no sensory deficits noted Sensorium / Orientation: awake, alert, oriented to person, oriented to place andoriented to time Cranial Nerves: CN normal except as noted Speech: speech normal Psych Appearance: grossly normal and appropriate Attitude: calm Activity / Motor Behavior: appropriate eye contact Speech: normal speech Mood & Affect: euthymic mood Thought Process: normal thought process Thought Content: normal thought content Attention / Concentration: attention grossly intact Debridement Note Debridement Note Wound debrided: Dehiscent left knee surgical incision Laterality: Left Type of Debridement: Excisional debridement Anesthesia Used: 5% Lidocaine Gel and Cetacaine Depth: Down to and including healthy tissue and in the subcutaneous layer Percentage of wound debrided: 100 Instrument Used: 5mm curette Tissue Removed: Bioburden Severity: Fat Layer Exposed Amount of bleeding with debridement: Mild Bleeding Controlled with: Compression and gauze Patient tolerated procedure: Patient tolerated procedure well Post-Debridement Measurements and Additional Note: Post-Debridement Measurements/Treatment - Nurse 1 - General Ulcer Assessment Start: 11/25/24 14:44 Freq: Status: Active Protocol: KENNY Activity Type Activity Date Activity User E-sign Co-sign Detail Recorded Client Recorded Date Recorded By Document 11/25/24 14:44 ML [id number] 11/25/24 14:50 ML 11/25/24 14:44 - Today's Visit Information Type of service Follow-up Visit (Physician/OPENING MACHINE CLEANER ) Arrival Mode Cane Transfer Assistance None Patient Identification Verified (Name & Yes ) Patient Requires Transmission-Based No Precautions Finger Stick Blood Sugar(mg/dl) (if 166 indicated): Blood Sugar Stated by Patient Height and Weight Body Mass Index (BMI) 34.1 BMI Classification Obese Vital Signs Temperature (97.8 F-99.1 F) 97 F L Temperature Source Temporal Pulse Rate (60-100) 73 Pulse Location Monitor Respiratory Rate (12-18) 15 Respiratory rate source Observation Blood Pressure (90/60-120/80) 127/67 H Blood Pressure Mean 87 Source Monitor Position Sitting Blood Pressure Location Right Arm History Since Last Visit- (Skip if this is Patient's initial visit) Have you changed medications since your No last visit? Any new allergies or adverse reactions No Had a fall/change in ADL's that may No increase risk of falls Signs or symptoms of abuse and/or No neglect since last visit Have you been in the hospital since your No last visit? Has dressing in place as prescribed Yes Has compression in place as prescribed N/A Has offloadiing in place as prescribed N/A Experienced any changes in pain level or No management Pain Scale: 0-10 Numeric Is Patient Pain Free? Yes - Nurse 1 - General Ulcer Measurement Start: 11/25/24 14:44 Freq: Status: Active Protocol: Activity Type Activity Date Activity User E-sign Co-sign Detail Recorded Client Recorded Date Recorded By Document 11/25/24 14:44 ML [id number] 11/25/24 14:50 ML 11/25/24 14:44 Wound Center Nurse 1 #2 Left Knee Inf -Current Size (cm) - Length 0.8 -Current Size (cm) - Width 0.5 -Current Size (cm) - Depth 0.1 -Total Square Cm 0.40 -Exudate Amt Medium -Exudate Type Serosanguineous -Granulation Amt Medium (34-66%) -Slough/Fibrin Yes -Necrosis Amt Medium (34-66%) -Necrotic Tissue Type Adherent Slough -Texture (Anali-wound Skin Appearance) Assessed -Moisture (Anali-wound Skin Appearance) Assessed -Color (Anali-wound Skin Appearance) Assessed -Temperature (Anali-wound Skin No Abnormality Appearance) (Pt Warm) -Tenderness on Palpation (Anali-wound No Skin Appearance) -Ulcer Cleansing Rinsed/ Irrigated with Saline -Foul Odor after Cleansing No -Anesthetic Used 5% Lidocaine Gel #1,.L knee -Current Size (cm) - Length 0.1 -Current Size (cm) - Width 0.1 -Current Size (cm) - Depth 0.1 -Total Square Cm 0.01 -Exudate Amt None Present -Granulation Amt None Present (0 %) -Slough/Fibrin No -Necrosis Amt None Present (0 %) -Temperature (Anali-wound Skin No Abnormality Appearance) (Pt Warm) -Tenderness on Palpation (Anali-wound No Skin Appearance) WC - Nurse 2 - General Ulcer CM Notes Start: 11/25/24 14:44 Freq: Status: Active Protocol: Activity Type Activity Date Activity User E-sign Co-sign Detail Recorded Client Recorded Date Recorded By Document 11/25/24 15:33 DS [id number] 11/25/24 15:35 DS 11/25/24 15:33 Wound Center Nurse 2 #2 Left Knee Inf -Time 15:34 -Correct Patient Yes -Procedure Performed No -Wound/Ulcer Outcome Healed- Epithelialized #1,.L knee -Time 15:32 -Correct Patient Yes -Correct Side, Site, Position Yes -Correct Procedure Yes -Procedure Performed Yes -Type of Procedure Debridement -Clinical Debridement Subcutaneous -Tissue Removed Subcutaneous -Post Debridement (cm) - Length 0.5 -Post Debridement (cm) - Width 0.6 -Post Debridement (cm) - Depth 0.1 -Total Square (Post) (cm) 0.30 -Area of Debridement (cm) - Length 0.5 -Area of Debridement (cm) - Width 0.6 -Total Square (Area) (cm) 0.30 -Tunneling No -Undermining/Tunneling No -Circular Undermining No -Wound/Ulcer Outcome Not Healed -Ulcer Cleansing Rinsed/ Irrigated with Saline -Foul Odor after Cleansing No -Bioengineered Tissue No -Bleeding Controlled with Pressure -Treatment Response Procedure Tolerated Well -Debridement - Subq, 1st 20sq cm Yes Pain Scale: 0-10 Numeric Is Patient Pain Free? Yes WC - Nurse 3 - General Ulcer D/C NN Start: 11/25/24 14:44 Freq: Status: Active Protocol: Activity Type Activity Date Activity User E-sign Co-sign Detail Recorded Client Recorded Date Recorded By Document 11/25/24 15:55 ML [id number] 11/25/24 15:56 ML 11/25/24 15:55 Wound Care Center Nurse 3 #2 Left Knee Inf -Ulcer Cleansing Rinsed/ Irrigated with Saline -Primary Dressing Applied Promogran -Primary Dressing Covered/Secured with Dry Gauze & Roll Gauze, Secured with Tape -Promogran 1 Pain Scale: 0-10 Numeric Is Patient Pain Free? Yes Charges/Coding Procedures Integumentary [id number]: [id number] [place] subq tissue 20 sq cm/< Assessment/Plan Assessment/Plan (1) Non-pressure chronic ulcer of left thigh with fat layer exposed: CODE(S): L97.122 - Non-pressure chronic ulcer of left thigh with fat layerexposed (2) Dehiscence of incision: CODE(S): T81.31XA - Disruption of external operation (surgical) wound, notelsewhere classified, initial encounter QUALIFIERS: Encounter type: subsequent encounter Qualified Code(s): T81.31XD - Disruption of external operation (surgical) wound, not elsewhere classified, subsequent encounter (3) Gangrene associated with type 2 diabetes mellitus: CODE(S): E11.52 - Type 2 diabetes mellitus with diabetic peripheral angiopathy with gangrene (4) Status post revision of total replacement of left knee: CODE(S): Z96.652 - Presence of left artificial knee joint (5) Failed total left knee replacement: CODE(S): T84.093A - Other mechanical complication of internal left knee prosthesis, initial encounter QUALIFIERS: Encounter type: subsequent encounter Qualified Code(s): T84.093D - Other mechanical complication of internal left knee prosthesis, subsequent encounter (6) History of left knee surgery: CODE(S): Z98.890 - Other specified postprocedural states (7) Diabetes: CODE(S): E11.9 - Type 2 diabetes mellitus without complications QUALIFIERS: Diabetes mellitus type: type 2 (8) Diabetic polyneuropathy: CODE(S): E11.42 - Type 2 diabetes mellitus with diabetic polyneuropathy (9) GERD (gastroesophageal reflux disease): CODE(S): K21.9 - Gastro-esophageal reflux disease without esophagitis (10) Hyperlipemia: CODE(S): E78.5 - Hyperlipidemia, unspecified (11) Iron deficiency anemia: CODE(S): D50.9 - Iron deficiency anemia, unspecified (12) Essential (primary) hypertension: CODE(S): I10 - Essential (primary) hypertension (13) Debility: CODE(S): R53.81 - Other malaise (14) Status post total right knee replacement: CODE(S): Z96.651 - Presence of right artificial knee joint (15) Osteoarthritis: (16) History of DVT (deep vein thrombosis): CODE(S): Z86.718 - Personal history of other venous thrombosis and embolism (17) Dyslipidemia: CODE(S): E78.5 - Hyperlipidemia, unspecified (18) Hypothyroidism: CODE(S): E03.9 - Hypothyroidism, unspecified (19) Ocular myasthenia gravis: CODE(S): G70.00 - Myasthenia gravis without (acute) exacerbation (20) History of partial thyroidectomy: CODE(S): E89.0 - Postprocedural hypothyroidism (21) History of appendectomy: CODE(S): Z90.49 - Acquired absence of other specified parts of digestive tract (22) History of hysterectomy: CODE(S): Z90.710 - Acquired absence of both cervix and uterus (23) History of cholecystectomy: CODE(S): Z90.49 - Acquired absence of other specified parts of digestive tract (24) Non-smoker: CODE(S): Z78.9 - Other specified health status (25) History of hiatal hernia: CODE(S): Z87.19 - Personal history of other diseases of the digestive system (26) History of revision of total replacement of left knee joint: CODE(S): Z96.652 - Presence of left artificial knee joint (27) History of bilateral cataract extraction: CODE(S): Z98.41 - Cataract extraction status, right eye; Z98.42 - Cataractextraction status, left eye PLAN: Plan This is a 74-year-old female who underwent the fourth revision of a left total knee replacement on June 19, 2024. She developed gangrene, necrosis, and dehiscence at the surgical site. As a result, the patient presented for definitive evaluation and management with respect to her surgical wound. The large amount of necrotic and nonviable tissue has been eliminated from the site of the patient's surgical wound since her initial presentation. Negative pressure wound therapy was implemented by means of the Wound VAC until recently. There are increasing areas of healthy, pink granulation tissue, which now covers the entirety of the wound. The wound appears to be decreasing in size and depth, and is now quite small. Preauthorization has been received for the use of cellular tissue products. Therefore, EpiFix allograft applications have been used recently, the most recent of which was the sixth such application. Because of the small size of the wound, and recent progress, we are to continue the use of Promogran applied topically on a daily basis. The patient has been instructed in the appropriate means of application. The patient has been encouraged to optimize her nutritional intake, as well as her diabetes management. She has been encouraged to continue taking protein nutritional drinks on a daily basis. She is to coordinate with her primary care physician with regard to diabetes management. She has been encouraged to elevate her leftlower extremity to prevent and minimize swelling. Elevation is to be to heart level, during both daytime and nighttime hours. Avoidance of prolonged idle sitting has been encouraged. Activity as tolerated has been encouraged. Tubigrip's have been dispensed for compression purposes. The patient is to follow-up in 1 week for reevaluation. Total time: 24 minutes 11/29/24 1325 Cosigner Signature (if applicable): CC: ~ Signed [facility]02-20-2025 Instructions* Patient Instructions* Aashish Bahena MD - 11/13/2024 11:09 PM EST - Continue taking Metformin 500 mg, two pills twice a day, as prescribed. - Continue taking Farxiga 10 mg daily; refills sent to [facility]. - Refill for Atorvastatin 10 mg, half a pill daily, sent to [facility]. - Refill for Hydrochlorothiazide sent to [facility]. - Continue taking Losartan 50 mg once a day; refill sent to [facility]. - Discontinue Cephalexin, Cipro, B12, Pantoprazole, and iron supplements. - Lab orders for A1c, metabolic panel, thyroid labs, vitamin D, iron, ferritin, B12, and cholesterol are in place; complete these lab tests within the next three months at your convenience. - Next follow-up appointment in 6 months. [facility] Telephone encounter Note * Telephone Encounter - Yuri Brady APRN.CNS - 11/10/2024 4:24 PM EST Offer visit if not feeling improved. [facility] Work Phone: 1(753) 519-266202-17-2025 Miscellaneous Notes* Telephone Encounter - Yuri Brady APRN.CNS - 11/10/2024 4:24 PM EST Offer visit if not feeling improved. documented in this encounter[facility] Evaluation note* Diagnosis Onset Date Resolution Status Admit Date Debility acute October 21, 2024 1:45pm Dehiscence of incision acute [facility] 2024 1:45pm Diabetic polyneuropathy acute anuary 2024 1:45pm Essential (primary) hypertension acute October 21 1:45pm 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 acute October 21, 2024 1:45pm GERD (gastroesophageal reflu x disease) acute October 21 1:45pm History of appendectomy acute anuary 2024 1:45pm History of bilateral catarac t extraction acute October 21 1:45pm History of cholecystectomy acute October 21, 2024 1:45pm History of hiatal hernia acute October 21, 2024 1:45pm History of hysterectomy acute [facility] 2024 1:45pm History of left knee surgery acute October 21, 2024 1:45pm History of partial thyroidectomy acute October 21 1:45pm [facility] Hyperlipemia acute September 1:45pm Iron deficiency anemia acute [facility] 2024 1:45pm 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 acute October 21 1:45pm Non-smoker acute October 21, 2024 1:45pm Ocular myasthenia gravis acute October 21, 2024 1:45pm Status post total right knee replacement acute October 21 1:45pm Diabetes chronic October 21, 2024 1:45pm Dyslipidemia chronic September 1:45pm History of DVT (deep vein thrombosis) chronic October 21 1:45pm Hypothyroidism chronic October 212024 1:45pm Osteoarthritis chronic October 212024 1:45pm Status post revision of tota l replacement of left knee chronic October 21, 2024 1:45pm Failed total left knee replacement resolved October 21 1:45pm Debility acute November 18, 2024 2:15pm Dehiscence of incision acute [facility] 2024 2:15pm [facility] 2:[facility] Essential (primary) hypertension acute November 18, 2 025 2:15pm 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 acute November 18, 2024 2:15pm GERD (gastroesophageal reflu x disease) acute November 18, 2 025 2:15pm History of appendectomy acute F 2024 2:15pm History of bilateral catarac t extraction acute November 18, 2 025 2:15pm History of cholecystectomy acute November 18, 2024 2:15pm History of hiatal hernia acute November 18, 2024 2:15pm History of hysterectomy acute 2024 2:15pm History of left knee surgery acute November 18, 2024 2:15pm History of partial thyroidectomy acute November 18, 2 025 2:15pm History of revision of total replacement of left knee joint acute 2024 2:15pm Hyperlipemia acute October 2:15pm Iron deficiency anemia acute 2024 2:15pm 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 acute November 18, 2 025 2:15pm Non-smoker acute November 18, 2024 2:15pm Ocular myasthenia gravis acute November 18, 2024 2:15pm Status post total right knee replacement acute November 18, 2 025 2:15pm Diabetes chronic November 18, 2024 2:15pm Dyslipidemia chronic October 2:15pm History of DVT (deep vein thrombosis) chronic November 18, 2 025 2:15pm Hypothyroidism chronic October 262024 2:15pm Osteoarthritis chronic October 262024 2:15pm Status post revision of tota l replacement of left knee chronic 2024 2:15pm Failed total left knee replacement resolved November 18, 2 025 2:15pm Debility acute December 16 2:00pm Dehiscence of incision acute [facility] 2024 2:00pm Diabetic polyneuropathy acute 2024 2:00pm Essential (primary) hypertension acute December 16, 2024 2:00pm 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 acute December 16 2:00pm GERD (gastroesophageal reflu x disease) acute December 16, 2024 2:00pm History of appendectomy acute 2024 2:00pm History of bilateral catarac t extraction acute December 16, 2024 2:00pm History of cholecystectomy acute December 16, 2024 2:00pm History of hiatal hernia acute December 16, 2024 2:00pm History of hysterectomy acute M 2024 2:00pm History of left knee surgery acute December 16, 2024 2:00pm History of partial thyroidectomy acute December 16, 2024 2:00pm History of revision of total replacement of left knee joint acute [facility] 2024 2:00pm Hyperlipemia acute December 16, 2024 2:00pm Iron deficiency anemia acute [facility] 2024 2:00pm 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 acute December 16, 2024 2:00pm Non-smoker acute December 16 2:00pm Ocular myasthenia gravis acute December 16, 2024 2:00pm Status post total right knee replacement acute December 16, 2024 2:00pm Diabetes chronic December 16 2:00pm Dyslipidemia chronic December 16, 2024 2:00pm History of DVT (deep vein thrombosis) chronic December 16, 2024 2:00pm Hypothyroidism chronic November 2:00pm Osteoarthritis chronic November 2:00pm Status post revision of tota l replacement of left knee chronic November 232024 2:00pm Failed total left knee replacement resolved December 16, 2024 2:00pm Ocular myasthenia gravis acute December 18, 2024 2:25pm Debility acute January 21 1:45pm Dehiscence of incision acute Ap r[facility] 2024 1:45pm Diabetic polyneuropathy acute A pril 2024 1:45pm Essential (primary) hypertension acute January 21, 2025 1:45pm 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 acute January 21 1:45pm GERD (gastroesophageal reflu x disease) acute January 21, 2025 1:45pm History of appendectomy acute A pril 2024 1:45pm History of bilateral catarac t extraction acute January 21, 2025 1:45pm History of cholecystectomy acute January 21, 2025 1:45pm History of hiatal hernia acute January 21, 2025 1:45pm History of hysterectomy acute A pril 2024 1:45pm History of left knee surgery acute January 21, 2025 1:45pm History of partial thyroidectomy acute January 21, 2025 1:45pm History of revision of total replacement of left knee joint acute A pril 2024 1:45pm Hyperlipemia acute January 21, 2025 1:45pm Iron deficiency anemia acute Ap r[facility] 2024 1:45pm 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 acute January 21, 2025 1:45pm Non-smoker acute January 21 1:45pm Ocular myasthenia gravis acute January 21, 2025 1:45pm Status post total left knee replacement acute January 21, 2025 1:45pm Status post total right knee replacement acute January 21, 2025 1:45pm Diabetes chronic January 21 1:45pm Dyslipidemia chronic January 21, 2025 1:45pm History of DVT (deep vein thrombosis) chronic January 21, 2025 1:45pm HTN (hypertension) chronic January 21, 2025 1:45pm Hypothyroidism chronic December 1:45pm Osteoarthritis chronic December 1:45pm Status post revision of tota l replacement of left knee chronic December 252024 1:45pm Failed total left knee replacement resolved January 21, 2025 1:45pm Dehiscence of incision acute 2024 8:22am Diabetic polyneuropathy acute 2024 8:22am Essential (primary) hypertension acute January 28, 2025 8: 22am GERD (gastroesophageal reflu x disease) acute January 28, 2025 8: 22am History of appendectomy acute 2024 8:22am History of bilateral catarac t extraction acute January 28, 2025 8: 22am History of cholecystectomy acute January 28, 2025 8:22am History of hiatal hernia acute January 28, 2025 8:22am History of hysterectomy acute 2024 8:22am History of left knee surgery acute January 28, 2025 8:22am History of revision of total replacement of left knee joint acute 2024 8:22am Hyperlipemia acute January 28 8:22am Iron deficiency anemia acute 2024 8:22am 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 acute January 28, 2025 8: 22am Ocular myasthenia gravis acute January 28, 2025 8:22am Status post total left knee replacement acute January 28, 2025 8: 22am Status post total right knee replacement acute January 28, 2025 8: 22am Diabetes chronic January 28, 2025 8:22am Dyslipidemia chronic January 28 8:22am History of DVT (deep vein thrombosis) chronic January 28, 2025 8: 22am HTN (hypertension) chronic January 8:22am Hypothyroidism chronic January 28 025 8:22am Osteoarthritis chronic January 28 8:22am [place] [employer] Work Phone: 1(451) 636-607801-28-2025 Evaluation note* Diagnosis Onset Date Resolution Status Admit Date Debility acute October 21, 2024 1:45pm Dehiscence of incision acute [facility] 2024 1:45pm Diabetic polyneuropathy acute [facility] 2024 1:45pm Essential (primary) hypertension acute October 21 1:45pm 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 acute October 21, 2024 1:45pm GERD (gastroesophageal reflu x disease) acute October 21 1:45pm History of appendectomy acute [facility] 2024 1:45pm History of bilateral catarac t extraction acute October 21 1:45pm History of cholecystectomy acute October 21, 2024 1:45pm History of hiatal hernia acute October 21, 2024 1:45pm History of hysterectomy acute [facility] 2024 1:45pm History of left knee surgery acute October 21, 2024 1:45pm History of partial thyroidectomy acute October 21 1:45pm History of revision of total replacement of left knee joint acute [facility] 2024 1:45pm Hyperlipemia acute September 1:45pm Iron deficiency anemia acute [facility] 2024 1:45pm 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 acute October 21 1:45pm Non-smoker acute October 21, 2024 1:45pm Ocular myasthenia gravis acute October 21, 2024 1:45pm Status post total right knee replacement acute October 21 1:45pm Diabetes chronic October 21, 2024 1:45pm Dyslipidemia chronic September 1:45pm History of DVT (deep vein thrombosis) chronic October 21 1:45pm Hypothyroidism chronic October 212024 1:45pm Osteoarthritis chronic October 212024 1:45pm Status post revision of tota l replacement of left knee chronic October 21, 2024 1:45pm Failed total left knee replacement resolved October 21 1:45pm Debility acute November 18, 2024 2:15pm Dehiscence of incision acute 2024 2:15pm Diabetic polyneuropathy acute 2024 2:15pm Essential (primary) hypertension acute November 18, 2 025 2:15pm 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 acute November 18, 2024 2:15pm GERD (gastroesophageal reflu x disease) acute November 18, 2 025 2:15pm History of appendectomy acute 2024 2:15pm History of bilateral catarac t extraction acute November 18, 2 025 2:15pm History of cholecystectomy acute November 18, 2024 2:15pm History of hiatal hernia acute November 18, 2024 2:15pm History of hysterectomy acute 2024 2:15pm History of left knee surgery acute November 18, 2024 2:15pm History of partial thyroidectomy acute November 18, 2 025 2:15pm History of revision of total replacement of left knee joint acute 2024 2:15pm Hyperlipemia acute October 2:15pm Iron deficiency anemia acute 2024 2:15pm 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 acute November 18, 2 025 2:15pm Non-smoker acute November 18, 2024 2:15pm Ocular myasthenia gravis acute November 18, 2024 2:15pm Status post total right knee replacement acute November 18, 2 025 2:15pm Diabetes chronic November 18, 2024 2:15pm Dyslipidemia chronic October 2:15pm History of DVT (deep vein thrombosis) chronic November 18, 2 025 2:15pm Hypothyroidism chronic October 262024 2:15pm Osteoarthritis chronic October 262024 2:15pm Status post revision of tota l replacement of left knee chronic ua y 2024 2:15pm Failed total left knee replacement resolved November 18, 2:15pm Debility acute December 16 2:00pm Dehiscence of incision acute [facility] 2024 2:00pm Diabetic polyneuropathy acute 2024 2:00pm Essential (primary) hypertension acute December 16, 2024 2:00pm 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 acute December 16 2:00pm GERD (gastroesophageal reflu x disease) acute December 16, 2024 2:00pm History of appendectomy acute 2024 2:00pm History of bilateral catarac t extraction acute December 16, 2024 2:00pm History of cholecystectomy acute December 16, 2024 2:00pm History of hiatal hernia acute December 16, 2024 2:00pm History of hysterectomy acute 2024 2:00pm History of left knee surgery acute December 16, 2024 2:00pm History of partial thyroidectomy acute December 16, 2024 2:00pm History of revision of total replacement of left knee joint acute 2024 2:00pm Hyperlipemia acute December 16, 2024 2:00pm Iron deficiency anemia acute [facility] 2024 2:00pm 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 acute December 16, 2024 2:00pm Non-smoker acute December 16 2:00pm Ocular myasthenia gravis acute December 16, 2024 2:00pm Status post total right knee replacement acute December 16, 2024 2:00pm Diabetes chronic December 16 2:00pm Dyslipidemia chronic December 16, 2024 2:00pm History of DVT (deep vein thrombosis) chronic December 16, 2024 2:00pm Hypothyroidism chronic November 2:00pm Osteoarthritis chronic November 2:00pm Status post revision of tota l replacement of left knee chronic November 232024 2:00pm Failed total left knee replacement resolved December 16, 2024 2:00pm Ocular myasthenia gravis acute December 18, 2024 2:25pm Debility acute January 21 1:45pm Dehiscence of incision acute Ap ril 2024 1:45pm Diabetic polyneuropathy acute A pril 2024 1:45pm Essential (primary) hypertension acute January 21, 2025 1:45pm 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 acute January 21 1:45pm GERD (gastroesophageal reflu x disease) acute January 21, 2025 1:45pm History of appendectomy acute A pril 2024 1:45pm History of bilateral catarac t extraction acute January 21, 2025 1:45pm History of cholecystectomy acute January 21, 2025 1:45pm History of hiatal hernia acute January 21, 2025 1:45pm History of hysterectomy acute A pril 2024 1:45pm History of left knee surgery acute January 21, 2025 1:45pm History of partial thyroidectomy acute January 21, 2025 1:45pm History of revision of total replacement of left knee joint acute A pril 2024 1:45pm Hyperlipemia acute January 21, 2025 1:45pm Iron deficiency anemia acute Ap ril 2024 1:45pm 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 acute January 21, 2025 1:45pm Non-smoker acute January 21 1:45pm Ocular myasthenia gravis acute January 21, 2025 1:45pm Status post total left knee replacement acute January 21, 2025 1:45pm Status post total right knee replacement acute January 21, 2025 1:45pm Diabetes chronic January 21 1:45pm Dyslipidemia chronic January 21, 2025 1:45pm History of DVT (deep vein thrombosis) chronic January 21, 2025 1:45pm HTN (hypertension) chronic January 21, 2025 1:45pm Hypothyroidism chronic December 1:45pm Osteoarthritis chronic December 1:45pm Status post revision of tota l replacement of left knee chronic December 252024 1:45pm Failed total left knee replacement resolved January 21, 2025 1:45pm Ocular myasthenia gravis acute February 03, 2025 1:59pm Dehiscence of incision acute Ma y 2024 2:00pm Diabetic polyneuropathy acute M ay 2024 2:00pm Essential (primary) hypertension acute February 04, 2025 2 :00pm GERD (gastroesophageal reflu x disease) acute February 04, 2025 2 :00pm History of appendectomy acute M ay 2024 2:00pm History of bilateral catarac t extraction acute February 04, 2025 2 :00pm History of cholecystectomy acute February 04, 2025 2:00pm History of hiatal hernia acute February 04, 2025 2:00pm History of hysterectomy acute M ay 2024 2:00pm History of left knee surgery acute February 04, 2025 2:00pm History of revision of total replacement of left knee joint acute M ay 2024 2:00pm Hyperlipemia acute February 04 2:00pm Iron deficiency anemia acute Ma y 2024 2:00pm 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 acute February 04, 2025 2 :00pm Ocular myasthenia gravis acute February 04, 2025 2:00pm Status post total left knee replacement acute February 04, 2025 2 :00pm Status post total right knee replacement acute February 04, 2025 2 :00pm Diabetes chronic February 04, 2025 2:00pm Dyslipidemia chronic February 04 2:00pm History of DVT (deep vein thrombosis) chronic February 04, 2025 2 :00pm HTN (hypertension) chronic February 042024 2:00pm Hypothyroidism chronic February 04, 2025 2:00pm Osteoarthritis chronic February 04, 2025 2:00pm [facility] Work Phone: 1(280) 495-368101-28-2025 Evaluation note* Diagnosis Onset Date Resolution Status Admit Date Debility acute October 21, 2024 1:45pm Dehiscence of incision acute [facility] 2024 1:45pm Diabetic polyneuropathy acute J anuary 2024 1:45pm Essential (primary) hypertension acute October 21 1:45pm 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 acute October 21, 2024 1:45pm GERD (gastroesophageal reflu x disease) acute October 21 1:45pm History of appendectomy acute J anuary 2024 1:45pm History of bilateral catarac t extraction acute October 21 1:45pm History of cholecystectomy acute October 21, 2024 1:45pm History of hiatal hernia acute October 21, 2024 1:45pm History of hysterectomy acute J anuary 2024 1:45pm History of left knee surgery acute October 21, 2024 1:45pm History of partial thyroidectomy acute October 21 1:45pm History of revision of total replacement of left knee joint acute J anuary 2024 1:45pm Hyperlipemia acute September 1:45pm Iron deficiency anemia acute Ja nuary 2024 1:45pm 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 acute October 21 1:45pm Non-smoker acute October 21, 2024 1:45pm Ocular myasthenia gravis acute October 21, 2024 1:45pm Status post total right knee replacement acute October 21 1:45pm Diabetes chronic October 21, 2024 1:45pm Dyslipidemia chronic September 1:45pm History of DVT (deep vein thrombosis) chronic October 21 1:45pm Hypothyroidism chronic October 212024 1:45pm Osteoarthritis chronic October 212024 1:45pm Status post revision of tota l replacement of left knee chronic October 21, 2024 1:45pm Failed total left knee replacement resolved October 21 1:45pm Debility acute November 18, 2024 2:15pm Dehiscence of incision acute 2024 2:15pm Diabetic polyneuropathy acute 2024 2:15pm Essential (primary) hypertension acute November 18, 2 025 2:15pm 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 acute November 18, 2024 2:15pm GERD (gastroesophageal reflu x disease) acute November 18, 2 025 2:15pm History of appendectomy acute 2024 2:15pm History of bilateral catarac t extraction acute November 18, 2 025 2:15pm History of cholecystectomy acute November 18, 2024 2:15pm History of hiatal hernia acute November 18, 2024 2:15pm History of hysterectomy acute 2024 2:15pm History of left knee surgery acute November 18, 2024 2:15pm History of partial thyroidectomy acute November 18, 2 025 2:15pm History of revision of total replacement of left knee joint acute F ebruary 2024 2:15pm Hyperlipemia acute October 2:15pm Iron deficiency anemia acute Fe bruary 2024 2:15pm 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 acute November 18, 2 025 2:15pm Non-smoker acute November 18, 2024 2:15pm Ocular myasthenia gravis acute November 18, 2024 2:15pm Status post total right knee replacement acute November 18, 2 025 2:15pm Diabetes chronic November 18, 2024 2:15pm Dyslipidemia chronic October 2:15pm History of DVT (deep vein thrombosis) chronic November 18, 2 025 2:15pm Hypothyroidism chronic October 262024 2:15pm Osteoarthritis chronic October 262024 2:15pm Status post revision of tota l replacement of left knee chronic ua2024 2:15pm Failed total left knee replacement resolved November 18, 2 025 2:15pm Debility acute December 16 2:00pm Dehiscence of incision acute [facility] 2024 2:00pm Diabetic polyneuropathy acute 2024 2:00pm Essential (primary) hypertension acute December 16, 2024 2:00pm 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 acute December 16 2:00pm GERD (gastroesophageal reflu x disease) acute December 16, 2024 2:00pm History of appendectomy acute 2024 2:00pm History of bilateral catarac t extraction acute December 16, 2024 2:00pm History of cholecystectomy acute December 16, 2024 2:00pm History of hiatal hernia acute December 16, 2024 2:00pm History of hysterectomy acute 2024 2:00pm History of left knee surgery acute December 16, 2024 2:00pm History of partial thyroidectomy acute December 16, 2024 2:00pm History of revision of total replacement of left knee joint acute M 2024 2:00pm Hyperlipemia acute December 16, 2024 2:00pm Iron deficiency anemia acute [facility] 2024 2:00pm 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 acute December 16, 2024 2:00pm Non-smoker acute December 16 2:00pm Ocular myasthenia gravis acute December 16, 2024 2:00pm Status post total right knee replacement acute December 16, 2024 2:00pm Diabetes chronic December 16 2:00pm Dyslipidemia chronic December 16, 2024 2:00pm History of DVT (deep vein thrombosis) chronic December 16, 2024 2:00pm Hypothyroidism chronic November 2:00pm Osteoarthritis chronic November 2:00pm Status post revision of tota l replacement of left knee chronic November 232024 2:00pm Failed total left knee replacement resolved December 16, 2024 2:00pm Ocular myasthenia gravis acute December 18, 2024 2:25pm Debility acute January 21 1:45pm Dehiscence of incision acute Ap ril 2024 1:45pm Diabetic polyneuropathy acute A pril 2024 1:45pm Essential (primary) hypertension acute January 21, 2025 1:45pm 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 acute January 21 1:45pm GERD (gastroesophageal reflu x disease) acute January 21, 2025 1:45pm History of appendectomy acute A 2024 1:45pm History of bilateral catarac t extraction acute January 21, 2025 1:45pm History of cholecystectomy acute January 21, 2025 1:45pm History of hiatal hernia acute January 21, 2025 1:45pm History of hysterectomy acute A pri2024 1:45pm History of left knee surgery acute January 21, 2025 1:45pm History of partial thyroidectomy acute January 21, 2025 1:45pm History of revision of total replacement of left knee joint acute A pril 2024 1:45pm Hyperlipemia acute January 21, 2025 1:45pm Iron deficiency anemia acute Ap ril 2024 1:45pm 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 acute January 21, 2025 1:45pm Non-smoker acute January 21 1:45pm Ocular myasthenia gravis acute January 21, 2025 1:45pm Status post total left knee replacement acute January 21, 2025 1:45pm Status post total right knee replacement acute January 21, 2025 1:45pm Diabetes chronic January 21 1:45pm Dyslipidemia chronic January 21, 2025 1:45pm History of DVT (deep vein thrombosis) chronic January 21, 2025 1:45pm HTN (hypertension) chronic January 21, 2025 1:45pm Hypothyroidism chronic December 1:45pm Osteoarthritis chronic December 1:45pm Status post revision of tota l replacement of left knee chronic December 252024 1:45pm Failed total left knee replacement resolved January 21, 2025 1:45pm Ocular myasthenia gravis acute February 03, 2025 1:59pm Dehiscence of incision acute Ma y 2024 1:45pm Diabetic polyneuropathy acute M ay 2024 1:45pm Essential (primary) hypertension acute February 18, 2025 1 :45pm GERD (gastroesophageal reflu x disease) acute February 18, 2025 1 :45pm History of appendectomy acute M ay 2024 1:45pm History of bilateral catarac t extraction acute February 18, 2025 1 :45pm History of cholecystectomy acute February 18, 2025 1:45pm History of hiatal hernia acute February 18, 2025 1:45pm History of hysterectomy acute M ay 2024 1:45pm History of left knee surgery acute February 18, 2025 1:45pm History of revision of total replacement of left knee joint acute M ay 2024 1:45pm Hyperlipemia acute February 18 1:45pm Iron deficiency anemia acute Ma y 2024 1:45pm 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 acute February 18, 2025 1 :45pm Ocular myasthenia gravis acute February 18, 2025 1:45pm Status post total left knee replacement acute February 18, 2025 1 :45pm Status post total right knee replacement acute February 18, 2025 1 :45pm Diabetes chronic February 18, 2025 1:45pm Dyslipidemia chronic February 18 1:45pm History of DVT (deep vein thrombosis) chronic February 18, 2025 1 :45pm HTN (hypertension) chronic February 182024 1:45pm Hypothyroidism chronic February 18, 2025 1:45pm Osteoarthritis chronic February 18, 2025 1:45pm [facility] Work Phone: 1(726) 909-387001-27-2025 Telephone encounter Note* Telephone Encounter - Aashish Bahena MD - 10/20/2024 12:13 AM EST The following approved medication requests have been transmitted electronically. Requested Prescriptions Signed Prescriptions Disp Refills potassium chloride SR (MICRO-K) 10 mEq CR capsule 180 capsule 3 Sig: Take 2 capsules by mouth once daily. Authorizing Provider: AASHISH BAHENA MD One year RX only needs 180 with 3 refills, so corrected requested RX [facility]01-27-2025 Miscellaneous Notes* Telephone Encounter - Aashish Bahena MD - 10/20/2024 12:13 AM EST The following approved medication requests have been transmitted electronically. Requested Prescriptions Signed Prescriptions Disp Refills potassium chloride SR (MICRO-K) 10 mEq CR capsule 180 capsule 3 Sig: Take 2 capsules by mouth once daily. Authorizing Provider: AASHISH BAHENA MD One year RX only needs 180 with 3 refills, so corrected requested RX * Telephone Encounter - Chantale Mcdowell LPN - 10/18/2024 10:31 AM EST Prescription Refill Information The patient has been identified by name and date of : Yes Caregiver verified no other encounters exist for this prescription request: Yes Caregiver confirmed with patient/requestor that no other refills are due, in the near future, with this provider at this time: Yes The last office visit in the department: 10/17/24 Does the patient have a future office visit with this provider/department: No Requested Prescriptions Pending Prescriptions Disp Refills potassium chloride SR (MICRO-K) 10 mEq CR capsule [Pharmacy Med Name: POTASSIUM CL ER 10 MEQ CAPSULE] 180 capsule 5 Sig: take 2 capsules by mouth once daily Chantale Mcdowell LPN October 18, 2024 10:31 AM [facility] Telephone encounter Note * Telephone Encounter - Chantale Mcdowell LPN - 10/18/2024 10:31 AM EST Prescription Refill Information The patient has been identified by name and date of : Yes Caregiver verified no other encounters exist for this prescription request: Yes Caregiver confirmed with patient/requestor that no other refills are due, in the near future, with this provider at this time: Yes The last office visit in the department: 10/17/24 Does the patient have a future office visit with this provider/department: No Requested Prescriptions Pending Prescriptions Disp Refills potassium chloride SR (MICRO-K) 10 mEq CR capsule [Pharmacy Med Name: POTASSIUM CL ER 10 MEQ CAPSULE] 180 capsule 5 Sig: take 2 capsules by mouth once daily Chantale Mcdowell LPN October 18, 2024 10:31 AM [facility] of Present illness Narrative* Aashish Bahena MD - 10/17/2024 10:18 AM EST This note was created using [email or web address]. Subjective Leobardo Mcconnell CrPatient presents with: F/U 6 months SUBJECTIVE: Leobardo Valdez is a 73 year old year old lady here today for 6 month follow up appointment for review of medical conditions. Leobardo Valdez is a 73-year-old female with a history of DM, HTN, and HLD, presenting for medication management. Leobardo reports recent episodes of hypoglycemia, which she attributes to her current medication regimen. She is currently taking metformin 500 mg, 2 tablets BID, and Farxiga 10 mg daily. She notes that her hypoglycemic episodes have improved since discontinuing gabapentin, which she believes may have indirectly affected her blood glucose levels. She confirms that her appetite is good. She is also on atorvastatin 10 mg, taking half a tablet daily, and requests a refill. Additionally,she is taking losartan 50 mg daily, which was recently reduced from 100 mg. She is also on hydrochlorothiazide, folic acid, and an OTC iron supplement. She denies taking cephalexin, Cipro, B12, or pantoprazole. She is currently receiving wound care twice weekly and reports improvement in her condition. She denies any issues with her current medication regimen and requests refills for her prescriptions. PAST MEDICAL HISTORY Diagnosis Date Calculus of gallbladder without mention of cholecystitis or obstruction 05/16/2005 DIABETES MELLITUS TYPE II-UNCOMPL 05/16/2005 Diarrhea Esophageal reflux 05/16/2005 HYPERTENSION NOS 05/16/2005 HYPOTHYROIDISM NOS 05/16/2005 Internal hemorrhoids without mention of complication Current Outpatient Medications Medication Sig ferrous sulfate 325 mg (65 mg iron) tablet Take 325 mg by mouth once daily. folic acid 1 mg tablet Take 1 tablet by mouth once daily. ibuprofen (ADVIL ORAL) Take by mouth. potassium chloride SR (MICRO-K) 10 mEq CR capsule Take 2 capsules by mouth once daily. losartan (COZAAR) 50 mg tablet Take 1 tablet by mouth once daily. (Patient taking differently: [id number] mg by mouth once daily.) menthol/zinc oxide (CALMOSEPTINE TOPICAL) Apply 1 Application to affected area two times a day. Suicseji-Dzlzxdllw-Vhngwlh HMB (SHWETHA) 7-7-1.5 gram pwpk Take 1 Packet by mouth as needed. metFORMIN ER (GLUCOPHAGE XR) 500 mg 24 hr tablet Take 2 tablets by mouth two times a day. Patient should start on June 21, 2024. atorvastatin (LIPITOR) 10 mg tablet Take 0.5 tablets by mouth every other day. For cholesterol. FARXIGA 10 mg tablet Take 1 tablet by mouth once daily. hydroCHLOROthiazide 12.5 mg capsule Take 1 capsule by mouth once daily. levothyroxine (SYNTHROID) 100 mcg tablet Take 1 tablet by mouth once daily. Take one tab daily ascorbic acid, vitamin C, (VITAMIN C) 500 mg tablet Take 500 mg by mouth once daily. GEMTESA 75 mg tablet Take 1 tablet by mouth once daily. pregabalin (LYRICA) 100 mg capsule Take 100 mg by mouth three times daily. Cholecalciferol, Vitamin D3, (VITAMIN D-3) 2,000 unit Tab Take 1 tablet by mouth once daily. cephALEXin (KEFLEX) 500 mg capsule EVERY 6 HOURS iron polysaccharide complex (FERREX-150) 150 mg iron capsule every 48 hours. (Patient not taking: Reported on 10/17/2024) ciprofloxacin HCl (CIPRO) 500 mg tablet Take 500 mg by mouth two times a day. SANTYL ointment apply A NICKEL THICKNESS LAYER to affected area once daily (Patient not taking: Reported on 10/17/2024) acetaminophen (TYLENOL EXTRA STRENGTH) 500 mg tablet Take 500 mg by mouth every 8 hours. (Patient not taking: Reported on 10/02/2024) pantoprazole DR (PROTONIX) 20 mg tablet Take 1 tablet by mouth daily at 6 am. iron polysaccharide complex (NU-IRON) 150 mg iron capsule Take 1 capsule by mouth once daily. (Patient not taking: Reported on 10/02/2024) cyanocobalamin (VITAMIN B-12) 1,000 mcg tab Take 1 tablet by mouth once daily. (Patient not taking:Reported on 10/02/2024) No current facility-administered medications for this visit. Review of Systems Objective BP 112/60 Pulse 75 Temp 36.3 C (97.4 F) Resp 16 Wt 79 kg (174 lb 2.6 oz) SpO2 99% BMI 32.91 kg/m Last 5 Encounter Wt Readings: Date: Wt: 10/17/2024 79 kg (174 lb 2.6 oz) 10/02/2024 81.5 kg (179 lb 10.8 oz) 09/12/2024 79.8 kg (176 lb) 08/22/2024 79.8 kg (176 lb) 07/11/2024 84.4 kg (186 lb) No waist measurement recorded Estimated body mass index is 32.91 kg/m as calculated from the following: Height as of 09/12/24: 154.9 cm (5' 1). Weight as of this encounter: 79 kg (174 lb 2.6 oz). Last 5 Encounter BP Readings: Date: BP: 10/17/2024 112/60 10/02/2024 153/67 09/12/2024 172/54 08/22/2024 124/53 08/01/2024 127/69 Physical Exam Hemoglobin A1C (%) Date Value 06/06/2024 7.0 03/31/2024 7.0 10/17/2023 7.2 04/05/2023 6.8 01/15/2017 7.4 10/16/2016 7.4 07/11/2016 9.7 03/30/2016 9.1 12/23/2015 8.2 Assessment and Plan # Pure hypercholesterolemia (E78.00) - Clinically stable on atorvastatin 10 mg, taking half a pill daily. - Refilled atorvastatin prescription and sent to [facility]. - Recent cholesterol labs ordered by [facility]; orders are valid for the next 3 months. # Controlled type 2 diabetes mellitus without complication, without long-term current use of insulin (HCC) (E11.9) - Currently managed with metformin 500 mg, 2 pills twice daily, and Farxiga 10 mg daily. - Discontinued gabapentin, which may have indirectly affected blood glucose levels. - Last A1c was in May; ordered follow-up A1c to be done within the next 3 months. - Patient is eating well, no issues with appetite. # Primary hypertension (I10) - Blood pressure today is 112/60 mmHg, improved from previous readings of 170s and 150s. - Managed with losartan, dosage adjusted to 50 mg daily. - Refilled losartan prescription and sent to [facility]. - Ordered metabolic panel to monitor renal function and electrolytes, to be done within the next 3 months. # Acquired hypothyroidism (E03.9) - Ordered thyroid function tests to be done within the next 3 months. Aashish Bahena MD documented in [facility] encounter[facility] Telephone encounter Note * Telephone Encounter - Aashish Bahena MD - 10/13/2024 8:58 PM EST The following approved medication requests have been transmitted electronically. Requested Prescriptions Pending Prescriptions Disp Refills folic acid 1 mg tablet 90 tablet 3 Sig: Take 1 tablet by mouth once daily. Aashish Bahena MD [facility]01-20-2025 Miscellaneous Notes* Telephone Encounter - Aashish Bahena MD - 10/13/2024 8:58 PM EST The following approved medication requests have been transmitted electronically. Requested Prescriptions Pending Prescriptions Disp Refills folic acid 1 mg tablet 90 tablet 3 Sig: Take 1 tablet by mouth once daily. Aashish Bahena MD * Telephone Encounter - Kira Adams LPN - 10/13/2024 3:59 PM EST Prescription Refill Information The patient has been identified by name and date of : Yes Caregiver verified no other encounters exist for this prescription request: Yes Caregiver confirmed with patient/requestor that no other refills are due, in the near future, with this provider at this time: Yes The last office visit in the department: 10/02/24 Does the patient have a future office visit with this provider/department: Yes 10/17/24 Requested Prescriptions Pending Prescriptions Disp Refills folic acid 1 mg tablet 90 tablet 3 Sig: Take 1 tablet by mouth once daily. Kira Adams LPN October 13, 2024 4:00 PM n documented in this encounterTri[facility] Telephone encounter Note * Telephone Encounter - Kira Adams LPN - 10/13/2024 3:59 PM EST Prescription Refill Information The patient has been identified by name and date of : Yes Caregiver verified no other encounters exist for this prescription request: Yes Caregiver confirmed with patient/requestor that no other refills are due, in the near future, with this provider at this time: Yes The last office visit in the department: 10/02/24 Does the patient have a future office visit with this provider/department: Yes 10/17/24 Requested Prescriptions Pending Prescriptions Disp Refills folic acid 1 mg tablet 90 tablet 3 Sig: Take 1 tablet by mouth once daily. Kira Adams LPN October 13, 2024 4:00 PM n [facility]01[facility]14[facility] History of Present illness Narrative* Mart Enciso MD - 10/07/2024 10:40 AM EST Leobardo is here for follow-up regarding her left knee. Please see previous notes. When I first met hershe had multiple operations on the left knee and her total range of motion was 15 degrees. She alsohad a lateral gastroc flap done by an orthopedic surgeon. She is now status post revision surgery to a hand two-stage after infection. She is in wound care. Her wound is granulating nicely. I took a look at in the office today. It looks very healthy with a good bleeding wound base. She is not actively draining from the deep space whatsoever. She has achieved 50 degrees of motion so far which is tremendously better than her preoperative state. Overall she already reports being better than her pre operative state. She should continue with physical therapy which I reordered. Continue with movement there. I would like to see her again in 2 months with repeat x-rays and clinical check. Mart Enciso MD Orthopaedic Surgery documented in this encounterTri[facility]01-10-2025 Telephone encounter Note * Telephone Encounter - Cassius Marcial - 10/03/2024 11:35 AM EST POPULATION HEALTH NAVIGATION OUTREACH Action/FYI Contacted Patient Reason for Outreach Care Gap/HCC or Scheduling Wellness Visits Care Gaps due: Physical Therapy Patient Contacted: Unable or unnecessary to reach patient: Left message Navigation Signature: Cassius Marcial October 03, 2024 11:35 AM [facility]01-10-2025 Miscellaneous Notes* Telephone Encounter - Cassius Marcial - 10/03/2024 11:35 AM EST POPULATION HEALTH NAVIGATION OUTREACH Action/FYI Contacted Patient Reason for Outreach Care Gap/HCC or Scheduling Wellness Visits Care Gaps due: Physical Therapy Patient Contacted: Unable or unnecessary to reach patient: Left message Navigation Signature: Cassius Marcial October 03, 2024 11:35 AM documented in this encounterTri[facility]01[facility] History of Present illness Narrative* BradyYuri APRN.SHOE STITCHER - 10/02/2024 2:22 PM EST SUBJECTIVE: Leobardo Valdez is a 73 year old female. Depression Screening Never done BP Controlled (<130/80) Never done Shingrix Vaccine(2 of 3) due on 07/08/2012 DTaP,Tdap,Td Vaccine(2 - Td or Tdap) due on 11/19/2019 Pneumococcal Vaccine: 50+(3 of 3 - PCV20 or PCV21) due on 05/27/2020 RSV Vaccine(1 - 1-dose 75+ series) Never done Colorectal Cancer Screening due on 01/07/2024 Diabetic Foot Exam due on 04/03/2024 Dilated Retinal Exam due on 08/23/2024 Advance Directive Discussion due on 09/24/2024 LDL Cholesterol due on 10/17/2024 HPI Presents for left lower extremity cellulitis follow-up visit. She was admitted to [facility] September 23 through September 26, 2024. She was noted to have presented to the ER for left knee wound for which she has a wound VAC and developed erythema and swelling involving her left lower extremity. She was treated with vancomycin and Zosyn. Infectious disease consult was placed. She wasdischarged on cephalexin 500 mg 4 times daily for 7 days. She has been followed up at the wound care center for wound VAC and chronic wound of the left knee. She was started on Cipro by wound care center provider Anthony Esquivel. She notes initial wound started with infection following left TKR in May. She currently notes decreased redness and swelling. No fever. Wound is followed at wound center, going 2 times a week for VAC changes. Notes decresed ROM at left knee. Has upcoming orthopedic appointment. Off glimepiride due to low blood sugar in the hospital. DIABETES MELLITUS:Patient's last HgA1C was Hemoglobin A1C (%) Date Value 06/06/2024 7.0 03/31/2024 7.0 01/15/2017 7.4 10/16/2016 7.4 ) She notes maintaining oral intake. Going to therapy. Mobile with walker. No bowel or bladder complaints. Review of Systems Constitutional: Negative. Musculoskeletal: Positive for gait problem (walker with wound vac attached). Skin: Positive for wound. Objective BP 153/67 Pulse 69 Resp 16 Wt 81.5 kg (179 lb 10.8 oz) BMI 33.95 kg/m Physical Exam Vitals and nursing note reviewed. Constitutional: Appearance: Normal appearance. HENT: Head: Normocephalic and atraumatic. Eyes: Conjunctiva/sclera: Conjunctivae normal. Cardiovascular: Rate and Rhythm: Normal rate and regular rhythm. Heart sounds: Normal heart sounds. Pulmonary: Effort: Pulmonary effort is normal. Breath sounds: Normal breath sounds. Musculoskeletal: Right lower leg: No edema. Left lower leg: No edema. Skin: General: Skin is warm and dry. Comments: Wound vac left knee, dressing tact, some erythema present left lower extremity to ankle, no warmth Neurological: General: No focal deficit present. Mental Status: She is alert and oriented to person, place, and time. ALLERGIES Allergen Reactions Latex Other: See Comments Adhesive Tape (Brandee* Other: See Comments Blisters on skin Iodine passed out hives Levofloxacin Vomiting Mental status change, nausea vomiting Shellfish Derived GI Upset Soft shell seafoods. Once passed out. Avoids seafood with shells (including shrimp and crab). Zocor [Simvastatin] Myalgia Medications cephALEXin (KEFLEX) 500 mg capsule EVERY 6 HOURS iron polysaccharide complex (FERREX-150) 150 mg iron capsule every 48 hours. ibuprofen (ADVIL ORAL) Take by mouth. ciprofloxacin HCl (CIPRO) 500 mg tablet Take 500 mg by mouth two times a day. oxyCODONE IR (ROXICODONE) 5 mg immediate release tablet Take 1 tablet by mouth every 12 hours as needed for pain for up to 7 days. for pain. potassium chloride SR (MICRO-K) 10 mEq CR capsule Take 2 capsules by mouth once daily. losartan (COZAAR) 50 mg tablet Take 1 tablet by mouth once daily. (Patient taking differently: [id number] mg by mouth once daily.) SANTYL ointment apply A NICKEL THICKNESS LAYER to affected area once daily menthol/zinc oxide (CALMOSEPTINE TOPICAL) Apply 1 Application to affected area two times a day. Cgvwgbhr-Cwurwesaa-Kornzkb HMB (SHWETHA) 7-7-1.5 gram pwpk Take 1 Packet by mouth once daily. metFORMIN ER (GLUCOPHAGE XR) 500 mg 24 hr tablet Take 2 tablets by mouth two times a day. Patient should start on June 21, 2024. atorvastatin (LIPITOR) 10 mg tablet Take 0.5 tablets by mouth every other day. For cholesterol. FARXIGA 10 mg tablet Take 1 tablet by mouth once daily. folic acid 1 mg tablet Take 1 tablet by mouth once daily. hydroCHLOROthiazide 12.5 mg capsule Take 1 capsule by mouth once daily. levothyroxine (SYNTHROID) 100 mcg tablet Take 1 tablet by mouth once daily. Take one tab daily ascorbic acid, vitamin C, (VITAMIN C) 500 mg tablet Take 500 mg by mouth once daily. GEMTESA 75 mg tablet Take 1 tablet by mouth once daily. pregabalin (LYRICA) 100 mg capsule Take 100 mg by mouth three times daily. Cholecalciferol, Vitamin D3, (VITAMIN D-3) 2,000 unit Tab Take 1 tablet by mouth once daily. doxycycline monohydrate (MONODOX) 100 mg capsule Take 100 mg by mouth two times a day. (Patient nottaking: Reported on 10/02/2024) acetaminophen (TYLENOL EXTRA STRENGTH) 500 mg tablet Take 500 mg by mouth every 8 hours. (Patient not taking: Reported on 10/02/2024) empagliflozin (JARDIANCE) 25 mg tablet Take 25 mg by mouth daily with breakfast. (Patient not taking: Reported on 10/02/2024) pantoprazole DR (PROTONIX) 20 mg tablet Take 1 tablet by mouth daily at 6 am. iron polysaccharide complex (NU-IRON) 150 mg iron capsule Take 1 capsule by mouth once daily. (Patient not taking: Reported on 10/02/2024) cyanocobalamin (VITAMIN B-12) 1,000 mcg tab Take 1 tablet by mouth once daily. (Patient not taking:Reported on 10/02/2024) glimepiride (AMARYL) 4 mg tablet Take 1 tablet by mouth two times a day. (Patient not taking: Reported on 10/02/2024) PAST MEDICAL HISTORY Diagnosis Date Calculus of gallbladder without mention of cholecystitis or obstruction 05/16/2005 DIABETES MELLITUS TYPE II-UNCOMPL 05/16/2005 Diarrhea Esophageal reflux 05/16/2005 HYPERTENSION NOS 05/16/2005 HYPOTHYROIDISM NOS 05/16/2005 Internal hemorrhoids without mention of complication Social History Tobacco Use Smoking status: Never Smokeless tobacco: Never Vaping Use Vaping status: Never Used Substance Use Topics Alcohol use: Yes Comment: Rarely Drug use: No ASSESSMENT/PLAN: 1. Cellulitis of left lower extremity - ICD9: 682.6, ICD10: L03.116 (primary diagnosis) Admission for cellulitis, wound VAC in place and followed by [facility] wound center. Currently taking cephalexin and Cipro. 2. Status post total left knee replacement - ICD9: V43.65, ICD10: Z96.652 Following with orthopedic provider 3. Hypoglycemia - ICD9: 251.2, ICD10: E16.2 Hypoglycemia in the hospital with blood sugar of 32, remains off glimepiride. Endorse keeping upcoming appointments. Yuri Brady APRN.CNS Medical Decision Making: Problems: Moderate: Acute illness with systemic symptoms Data: Unique source(s) for external note(s) reviewed: 1 Unique test result(s) reviewed: 3+ Risk: Moderate: Drug management Medical Decision Making Level: 4 - Moderate documented in this encounterTri[facility]01-06-2025 Telephone encounter Note * Telephone Encounter - Yuri Brady APRN.CNS - 09/29/2024 1:13 PM EST To be taking potassium chloride 20 meq QD [facility]01-06-2025 Miscellaneous Notes* Telephone Encounter - Yuri Brady APRN.CNS - 09/29/2024 1:13 PM EST To be taking potassium chloride 20 meq QD documented in this encounterTri[facility]01-03-2025 [facility]12-31-2024 Telephone encounter Note* Telephone Encounter - Ela Quinn RN - 09/23/2024 3:42 PM EST Reason for Call: stating patient has been having difficulty managing blood sugar levels. Patient had a blood sugar level of 29 last night and 911 emergency was called to the home. Glucose wasgiven and IVF's . This morning reports the patient was very weak and showing some confusionand disorientation. At lunch time blood sugar was 35 and grilled cheese sandwich with potato chips.Currently patient is very weak and has been sleeping most of the day. Currently blood sugar is at 49 Ritesh's peanut butter cup was eaten. Also to note patients left leg (TKR 05/2024) is very red . Wound vac in place and patent. Outcome: Go to the ED now Recommend no more candy bars until seen , diabetic teaching for helpful foods in diabetes recommended Reason for Disposition [1] Low blood sugar symptoms persist > 30 minutes AND [2] using low blood sugar Care Advice Protocols used: Diabetes - Low Blood [id number] [facility]12-31-2024 Miscellaneous Notes* Telephone Encounter - Ela Quinn RN - 09/23/2024 3:42 PM EST Reason for Call: stating patient has been having difficulty managing blood sugar levels. Patient had a blood sugar level of 29 last night and 911 emergency was called to the home. Glucose wasgiven and IVF's . This morning reports the patient was very weak and showing some confusionand disorientation. At lunch time blood sugar was 35 and grilled cheese sandwich with potato chips.Currently patient is very weak and has been sleeping most of the day. Currently blood sugar is at 49 Ritesh's peanut butter cup was eaten. Also to note patients left leg (TKR 05/2024) is very red . Wound vac in place and patent. Outcome: Go to the ED now Recommend no more candy bars until seen , diabetic teaching for helpful foods in diabetes recommended Reason for Disposition [1] Low blood sugar symptoms persist > 30 minutes AND [2] using low blood sugar Care Advice Protocols used: Diabetes - Low Blood Tever-FTCBK-MV documented in this encounterTrihealth [facility]12-31-2024 Evaluation note* Diagnosis Onset Date Resolution Status Admit Date Debility acute September 23, 2024 10:15am Dehiscence of incision acute 2023 10:15am Diabetic polyneuropathy acute D 2023 10:15am Essential (primary) hypertension acute September 23 10:15am 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 acute September 23, 2024 10:15am GERD (gastroesophageal reflu x disease) acute September 23 10:15am History of appendectomy acute D 2023 10:15am History of bilateral catarac t extraction acute September 23 10:15am History of cholecystectomy acute September 23, 2024 10:15am History of hiatal hernia acute September 23, 2024 10:15am History of hysterectomy acute D 2023 10:15am History of left knee surgery acute September 23, 2024 10:15am History of partial thyroidectomy acute September 23 10:15am History of revision of total replacement of left knee joint acute D 2023 10:15am Hyperlipemia acute August 10:15am Iron deficiency anemia acute 2023 10:15am 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 acute September 23 10:15am Non-smoker acute September 23, 2024 10:15am Ocular myasthenia gravis acute September 23, 2024 10:15am Status post total right knee replacement acute September 23 10:15am Diabetes chronic September 23, 2024 10:15am Dyslipidemia chronic August 10:15am History of DVT (deep vein thrombosis) chronic September 23 10:15am Hypothyroidism chronic August 262023 10:15am Osteoarthritis chronic August 262023 10:15am Status post revision of tota l replacement of left knee chronic Decembe r 2023 10:15am Failed total left knee replacement resolved September 23 10:15am Hypoglycemia resolved August 8:55pm Hypokalemia resolved August 8:55pm Left leg cellulitis resolved Decem 2023 8:55pm Debility acute October 21, 2024 1:45pm Dehiscence of incision acute [facility] 2024 1:45pm Diabetic polyneuropathy acute J anuary 2024 1:45pm Essential (primary) hypertension acute October 21 1:45pm 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 acute October 21, 2024 1:45pm GERD (gastroesophageal reflu x disease) acute October 21 1:45pm History of appendectomy acute J anuary 2024 1:45pm History of bilateral catarac t extraction acute October 21 1:45pm History of cholecystectomy acute October 21, 2024 1:45pm History of hiatal hernia acute October 21, 2024 1:45pm History of hysterectomy acute J anuary 2024 1:45pm History of left knee surgery acute October 21, 2024 1:45pm History of partial thyroidectomy acute October 21 1:45pm History of revision of total replacement of left knee joint acute anuary 2024 1:45pm Hyperlipemia acute September 1:45pm Iron deficiency anemia acute [facility] 2024 1:45pm 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 acute October 21 1:45pm Non-smoker acute October 21, 2024 1:45pm Ocular myasthenia gravis acute October 21, 2024 1:45pm Status post total right knee replacement acute October 21 1:45pm Diabetes chronic October 21, 2024 1:45pm Dyslipidemia chronic September 1:45pm History of DVT (deep vein thrombosis) chronic October 21 1:45pm Hypothyroidism chronic October 212024 1:45pm Osteoarthritis chronic October 212024 1:45pm Status post revision of tota l replacement of left knee chronic October 21, 2024 1:45pm Failed total left knee replacement resolved October 21 1:45pm Debility acute November 18, 2024 2:15pm Dehiscence of incision acute Fe bruary 2024 2:15pm Diabetic polyneuropathy acute F ebruary 2024 2:15pm Essential (primary) hypertension acute November 18, 2 025 2:15pm 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 acute November 18, 2024 2:15pm GERD (gastroesophageal reflu x disease) acute November 18, 2 025 2:15pm History of appendectomy acute F 2024 2:15pm History of bilateral catarac t extraction acute November 18, 2 025 2:15pm History of cholecystectomy acute November 18, 2024 2:15pm History of hiatal hernia acute November 18, 2024 2:15pm History of hysterectomy acute F 2024 2:15pm History of left knee surgery acute November 18, 2024 2:15pm History of partial thyroidectomy acute November 18, 2 025 2:15pm History of revision of total replacement of left knee joint acute 2024 2:15pm Hyperlipemia acute October 2:15pm Iron deficiency anemia acute [facility]2024 2:15pm 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 acute November 18, 2 025 2:15pm Non-smoker acute November 18, 2024 2:15pm Ocular myasthenia gravis acute November 18, 2024 2:15pm Status post total right knee replacement acute November 18, 2 025 2:15pm Diabetes chronic November 18, 2024 2:15pm Dyslipidemia chronic October 2:15pm History of DVT (deep vein thrombosis) chronic November 18, 2 025 2:15pm Hypothyroidism chronic October 262024 2:15pm Osteoarthritis chronic October 262024 2:15pm Status post revision of tota l replacement of left knee chronic 2024 2:15pm Failed total left knee replacement resolved November 18, 2 025 2:15pm Debility acute December 16 2:00pm Dehiscence of incision acute [facility] 2024 2:00pm Diabetic polyneuropathy acute 2024 2:00pm Essential (primary) hypertension acute December 16, 2024 2:00pm 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 acute December 16 2:00pm GERD (gastroesophageal reflu x disease) acute December 16, 2024 2:00pm History of appendectomy acute 2024 2:00pm History of bilateral catarac t extraction acute December 16, 2024 2:00pm History of cholecystectomy acute December 16, 2024 2:00pm History of hiatal hernia acute December 16, 2024 2:00pm History of hysterectomy acute 2024 2:00pm History of left knee surgery acute December 16, 2024 2:00pm History of partial thyroidectomy acute December 16, 2024 2:00pm History of revision of total replacement of left knee joint acute M 2024 2:00pm Hyperlipemia acute December 16, 2024 2:00pm Iron deficiency anemia acute [facility] 2024 2:00pm 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 acute December 16, 2024 2:00pm Non-smoker acute December 16 2:00pm Ocular myasthenia gravis acute December 16, 2024 2:00pm Status post total right knee replacement acute December 16, 2024 2:00pm Diabetes chronic December 16 2:00pm Dyslipidemia chronic December 16, 2024 2:00pm History of DVT (deep vein thrombosis) chronic December 16, 2024 2:00pm Hypothyroidism chronic November 2:00pm Osteoarthritis chronic November 2:00pm Status post revision of tota l replacement of left knee chronic November 232024 2:00pm Failed total left knee replacement resolved December 16, 2024 2:00pm Ocular myasthenia gravis acute December 18, 2024 2:25pm [facility] Work Phone: [phone]) 790-400212-23-2024 Telephone encounter Note* Telephone Encounter - Keisha Stanley - 09/15/2024 11:24 AM EST Patient's called back in and accepted an appointment on 09/25/24. [facility] Miscellaneous Notes* Telephone Encounter - Keisha Stanley - 09/15/2024 11:24 AM EST Patient's called back in and accepted an appointment on 09/25/24. * Telephone Encounter - Marci Hill - 09/15/2024 10:38 AM EST LVM for patient to return call to schedule with Donna Hill documented in this encounterTrihealth [facility]12-23-2024 Telephone encounter Note * Telephone Encounter - Marci Hill - 09/15/2024 10:38 AM EST LVM for patient to return call to schedule with Donna Hill [facility]12-20-2024 History of Present illness Narrative* Urban Horton MD - 09/12/2024 10:30 AM EST Images from the original note were not included. CC: Post Op HPI: Leobardo Valdez is a 73 year old who is 2.5 months s/p elevation of previous lateral gastrocnemius flap left knee 7 x 3 cm by Plastic surgery and revision of left total knee replacement by Orthopedics on 06/19/2024. Denies fevers, chills, erythema, induration, fluctuance, hematoma, seroma, purulent drainage, odor. Patient rates pain 6 out of 10. Pt taking Oxy for the pain At last office visit on 08/22/24, patient expressed that her wound clinic would like to apply a wound vac to the area. We recommend dressing changes with wound vac and wound vac changes 3 times per week. Patient current wound care: wound vac, changing twice a week at wound clinic ROS: GENERAL: Negative for malaise, significant weight loss and fever NECK: Negative for lumps, goiter, pain and significant neck swelling SKIN: Negative for lesions, rash, and itching. HEMATOLOGIC/LYMPHATIC/IMMUNOLOGIC: Negative for prolonged bleeding, bruising easily, and swollen nodes. PAIN: see above PMH: PAST MEDICAL HISTORY Diagnosis Date Calculus of gallbladder without mention of cholecystitis or obstruction 05/16/2005 DIABETES MELLITUS TYPE II-UNCOMPL 05/16/2005 Diarrhea Esophageal reflux 05/16/2005 HYPERTENSION NOS 05/16/2005 HYPOTHYROIDISM NOS 05/16/2005 Internal hemorrhoids without mention of complication PSH: PAST SURGICAL HISTORY Procedure Laterality Date APPENDECTOMY 09/12/1996 ARTHRP KNE CONDYLE&PLATU MEDIAL&LAT COMPARTMENTS Left 10/22/2013 Knee replacement, total CHOLECYSTECTOMY 10/25/1999 Cholecystectomy COLONOSCOPY W/BIOPSY SINGLE/MULTIPLE 06/15/2010 DILATION & CURETTAGE DX&/THER NONOBSTETRIC , 11/05/1981 Dilation & curettage INCISION & DRAINAGE ABSCESS SIMPLE/SINGLE 09/02/2007 I&D Bartholins PAST SURGICAL HISTORY OF Left 09/22/2014 Revision left TKA PAST SURGICAL HISTORY OF Left 10/09/2014 Knee flap left TKA RPR UMBILICAL HRNA 5 YRS/> REDUCIBLE 04/21/1997 Hernia repair, umbilical >5yr SIGMOIDOSCOPY FLX DX W/COLLJ SPEC BR/WA IF PFRMD 07/14/1986 Sigmoidoscopy, anal fistulectomy THYROIDECTOMY TOTAL/COMPLETE 03/24/2009 TOTAL TOTAL KNEE REPLACEMENT Right 2022 VAGINAL HYSTERECTOMY UTERUS 250 GM/< 01/27/2003 Hysterectomy, vaginal, left oophorectomy SOC: Social History Tobacco Use Smoking status: Never Smokeless tobacco: Never Vaping Use Vaping status: Never Used Substance Use Topics Alcohol use: Yes Comment: Rarely Drug use: No MEDICATIONS: Current Outpatient Medications Medication Sig Dispense Refill losartan (COZAAR) 50 mg tablet Take 1 tablet by mouth once daily. 90 tablet 3 doxycycline monohydrate (MONODOX) 100 mg capsule Take 100 mg by mouth two times a day. SANTYL ointment apply A NICKEL THICKNESS LAYER to affected area once daily acetaminophen (TYLENOL EXTRA STRENGTH) 500 mg tablet Take 500 mg by mouth every 8 hours. menthol/zinc oxide (CALMOSEPTINE TOPICAL) Apply 1 Application to affected area two times a day. empagliflozin (JARDIANCE) 25 mg tablet Take 25 mg by mouth daily with breakfast. Fdbarmpr-Jkfenkcgq-Xndarwx HMB (SHWETHA) 7-7-1.5 gram pwpk Take 1 Packet by mouth once daily. potassium chloride (KLOR-CON M20 ORAL) Take 20 mEq by mouth once daily. doxycycline hyclate (VIBRAMYCIN) 100 mg capsule Take 1 capsule (100 mg) by mouth every 12 hours at 6 am and 6 pm for 165 doses. [address] (PROTONIX) 20 mg tablet Take 1 tablet by mouth daily at 6 am. 30 tablet 0 metFORMIN ER (GLUCOPHAGE XR) 500 mg 24 hr tablet Take 2 tablets by mouth two times a day. Patient should start on June 21, 2024. 360 tablet 3 atorvastatin (LIPITOR) 10 mg tablet Take 0.5 tablets by mouth every other day. For cholesterol. 45 tablet 1 iron polysaccharide complex (NU-IRON) 150 mg iron capsule Take 1 capsule by mouth once daily. 90 capsule 3 cyanocobalamin (VITAMIN B-12) 1,000 mcg tab Take 1 tablet by mouth once daily. 90 tablet 3 FARXIGA 10 mg tablet Take 1 tablet by mouth once daily. 90 tablet 3 folic acid 1 mg tablet Take 1 tablet by mouth once daily. 90 tablet 3 hydroCHLOROthiazide 12.5 mg capsule Take 1 capsule by mouth once daily. 90 capsule 3 levothyroxine (SYNTHROID) 100 mcg tablet Take 1 tablet by mouth once daily. Take one tab daily 90 tablet 3 glimepiride (AMARYL) 4 mg tablet Take 1 tablet by mouth two times a day. 180 tablet 3 ascorbic acid, vitamin C, (VITAMIN C) 500 mg tablet Take 500 mg by mouth once daily. GEMTESA 75 mg tablet Take 1 tablet by mouth once daily. pregabalin (LYRICA) 100 mg capsule Take 100 mg by mouth three times daily. Cholecalciferol, Vitamin D3, (VITAMIN D-3) 2,000 unit Tab Take 1 tablet by mouth once daily. No current facility-administered medications for this visit. PHYSICAL EXAM: BP 172/54 (BP Site: Right Arm, BP Position: Sitting, BP Cuff Size: Regular Adult) Pulse 70 Temp36.7 C (98 F) (Temporal) Resp 14 Ht 154.9 cm (5' 1) Wt 79.8 kg (176 lb) SpO2 97% BMI 33.25 kg/m GENERAL: Patient is a well-nourished , appearing stated age, resting comfortably, breathing regularly. No acute distress. WOUND: Left knee wound Measurements 9 cm x 2 cm, wound is granulating, small areas of exposed fascia in upper part of wound, no purulence Assessment: Leobardo is a 73 year old female with superficial wound dehiscence s/p revision left total knee replacement on 06/19/2024 WOUND VAC CHANGE: Left knee wound (nondisposable wound VAC <50 cm ) Cleansed periwound with NS. Irrigated wound with 30cc NS. Transparent drape applied to periwound skin to protect. One piece of black foam placed into wound bed. Transparent drape placed to secure black foam, and track pad applied. All foam compressed. No leak detected. The patient tolerated the procedure well with no complications Wound dressing instructions: Apply transparent drape to area surrounding wound bed to protect skin from maceration Cut black foam to wound size and place over top of wound bed. Apply clear wound vac dressing ensuring all edges have been secured around edges of wound to prevent leaks. Cut superficial hole to attach wound vac tubing Connect tubing to wound vac and resume suction Plan: Optimize nutritional intake Photos uploaded to revoPT via [employer] with patient consent Wound vac changed in clinic as above Discussed the wound is not ready for a skin graft yet as it is not healed enough Suggested a skin substitute that can be placed in A60 as a non-surgical option Continue wound vac changes at wound center Continue to attend PT Patient to consider options and reach out if she is desiring skin substitute intervention Follow up: 6 weeks The patient is seen and examined by Dr. Horton and the following reflects his service. Scribed by Milena Layne RN Attending Note I have personally performed a face to face assessment of the patient and have reviewed the RN's note. I agree with the Chief Complaint, ROS, and Past Histories independently gathered by the clinical it support consultant and the remaining scribed note accurately describes my personal service to the patient. SIGNATURE: Urban Horton MD DATE: September 12, 2024 TIME: 1:59 PM documented in this encounterTri[facility]2024 [facility] Telephone encounter Note* Telephone Encounter - Hal Hale APRN.CNP - 09/09/2024 8:07 AM EST Today [facility]12-17-2024 Miscellaneous Notes* Telephone Encounter - Hal Hale APRN.CNP - 09/09/2024 8:07 AM EST Today documented in this encounterTri[facility]12-04-2024 Telephone encounter Note * Telephone Encounter - Kira Adams LPN - 08/27/2024 1:40 PM EST Prescription Refill Information The patient has been identified by name and date of : Yes Caregiver verified no other encounters exist for this prescription request: Yes Caregiver confirmed with patient/requestor that no other refills are due, in the near future, with this provider at this time: Yes The last office visit in the department: 07/28/24 Does the patient have a future office visit with this provider/department: Yes 10/17/24 Requested Prescriptions Pending Prescriptions Disp Refills losartan (COZAAR) 50 mg tablet 90 tablet 3 Sig: Take 1 tablet by mouth once daily. Kira Adams LPN August 27, 2024 1:40 PM [facility]12-04-2024 Miscellaneous Notes* Telephone Encounter - Kira Adams LPN - 08/27/2024 1:40 PM EST Prescription Refill Information The patient has been identified by name and date of : Yes Caregiver verified no other encounters exist for this prescription request: Yes Caregiver confirmed with patient/requestor that no other refills are due, in the near future, with this provider at this time: Yes The last office visit in the department: 07/28/24 Does the patient have a future office visit with this provider/department: Yes 10/17/24 Requested Prescriptions Pending Prescriptions Disp Refills losartan (COZAAR) 50 mg tablet 90 tablet 3 Sig: Take 1 tablet by mouth once daily. Kira Adams LPN August 27, 2024 1:40 PM documented in this encounterTrihealth [facility]11-29-2024 Instructions* Patient Instructions* Shannon Puente RN - 08/22/2024 11:16 AM EST Recommend a wound vac on the left knee wound to be changed 3 times per week. For any questions or concerns, please call [phone] or [employer] message. documented in this encounterTrihealth [facility]11-29-2024 History of Present illness Narrative* Urban Horton MD - 08/22/2024 11:00 AM EST Images from the original note were not included. CC: Post Op HPI: Leobardo Valdez is a 73 year old who is 2 months s/p elevation of previous lateral gastrocnemiusflap left knee 7 x 3 cm by Plastic surgery and revision of left total knee replacement by Orthopedics on 06/19/2024. She recently saw orthopedic surgery on 08/19/2024. She The patient is currently performing dressing changes with Santyl moistened gauze packing, ABD over the wound and wrapped with Kerlix/Vikas Wrap. Denies fevers, chills, erythema, induration, fluctuance,hematoma, seroma, purulent drainage, odor. Patient rates pain 5 out of 10, currently taking oxycodone for pain. The patient reports she is still on antibioitcs at this time. She reports the wound center would like to apply a wound vac after this appointment depending on our recommendations. ROS: GENERAL: Negative for malaise, significant weight loss and fever NECK: Negative for lumps, goiter, pain and significant neck swelling SKIN: Negative for lesions, rash, and itching. HEMATOLOGIC/LYMPHATIC/IMMUNOLOGIC: Negative for prolonged bleeding, bruising easily, and swollen nodes. PAIN: control is good with medication. PMH: PAST MEDICAL HISTORY Diagnosis Date Calculus of gallbladder without mention of cholecystitis or obstruction 05/16/2005 DIABETES MELLITUS TYPE II-UNCOMPL 05/16/2005 Diarrhea Esophageal reflux 05/16/2005 HYPERTENSION NOS 05/16/2005 HYPOTHYROIDISM NOS 05/16/2005 Internal hemorrhoids without mention of complication PSH: PAST SURGICAL HISTORY Procedure Laterality Date APPENDECTOMY 09/12/1996 ARTHRP KNE CONDYLE&PLATU MEDIAL&LAT COMPARTMENTS Left 10/22/2013 Knee replacement, total CHOLECYSTECTOMY 10/25/1999 Cholecystectomy COLONOSCOPY W/BIOPSY SINGLE/MULTIPLE 06/15/2010 DILATION & CURETTAGE DX&/THER NONOBSTETRIC , 11/05/1981 Dilation & curettage INCISION & DRAINAGE ABSCESS SIMPLE/SINGLE 09/02/2007 I&D [place] PAST SURGICAL HISTORY OF Left 09/22/2014 Revision left TKA PAST SURGICAL HISTORY OF Left 10/09/2014 Knee flap left TKA RPR UMBILICAL HRNA 5 YRS/> REDUCIBLE 04/21/1997 Hernia repair, umbilical >5yr SIGMOIDOSCOPY FLX DX W/COLLJ SPEC BR/WA IF PFRMD 07/14/1986 Sigmoidoscopy, anal fistulectomy THYROIDECTOMY TOTAL/COMPLETE 03/24/2009 TOTAL TOTAL KNEE REPLACEMENT Right 2022 VAGINAL HYSTERECTOMY UTERUS 250 GM/< 01/27/2003 Hysterectomy, vaginal, left oophorectomy SOC: Social History Tobacco Use Smoking status: Never Smokeless tobacco: Never Vaping Use Vaping status: Never Used Substance Use Topics Alcohol use: Yes Comment: Rarely Drug use: No MEDICATIONS: Current Outpatient Medications Medication Sig Dispense Refill SANTYL ointment apply A NICKEL THICKNESS LAYER to affected area once daily acetaminophen (TYLENOL EXTRA STRENGTH) 500 mg tablet Take 500 mg by mouth every 8 hours. menthol/zinc oxide (CALMOSEPTINE TOPICAL) Apply 1 Application to affected area two times a day. empagliflozin (JARDIANCE) 25 mg tablet Take 25 mg by mouth daily with breakfast. Kebhngxj-Wlouhuovv-Iiflapl HMB (SHWETHA) 7-7-1.5 gram pwpk Take 1 Packet by mouth once daily. MAGNESIUM CITRATE ORAL Take 300 mL by mouth once daily as needed (constipation). (Patient not taking: Reported on 07/29/2024) oxyCODONE IR (ROXICODONE) 10 mg tab Take 1-2 tablets by mouth every 4 hours as needed for pain (pain score 4-10). polyethylene glycol 3350 17 gram packet Take 17 g by mouth once daily. Dissolve dose in 4 - 8 ounces of liquid and take as directed. (Patient not taking: Reported on 07/29/2024) potassium chloride (KLOR-CON M20 ORAL) Take 20 mEq by mouth once daily. doxycycline hyclate (VIBRAMYCIN) 100 mg capsule Take 1 capsule (100 mg) by mouth every 12 hours at 6 am and 6 pm for 165 doses. [address] (PROTONIX) 20 mg tablet Take 1 tablet by mouth daily at 6 am. 30 tablet 0 metFORMIN ER (GLUCOPHAGE XR) 500 mg 24 hr tablet Take 2 tablets by mouth two times a day. Patient should start on June 21, 2024. 360 tablet 3 atorvastatin (LIPITOR) 10 mg tablet Take 0.5 tablets by mouth every other day. For cholesterol. 45 tablet 1 iron polysaccharide complex (NU-IRON) 150 mg iron capsule Take 1 capsule by mouth once daily. 90 capsule 3 cyanocobalamin (VITAMIN B-12) 1,000 mcg tab Take 1 tablet by mouth once daily. 90 tablet 3 FARXIGA 10 mg tablet Take 1 tablet by mouth once daily. 90 tablet 3 folic acid 1 mg tablet Take 1 tablet by mouth once daily. 90 tablet 3 hydroCHLOROthiazide 12.5 mg capsule Take 1 capsule by mouth once daily. 90 capsule 3 levothyroxine (SYNTHROID) 100 mcg tablet Take 1 tablet by mouth once daily. Take one tab daily 90 tablet 3 losartan (COZAAR) 50 mg tablet Take 1 tablet by mouth once daily. 90 tablet 3 glimepiride (AMARYL) 4 mg tablet Take 1 tablet by mouth two times a day. 180 tablet 3 ascorbic acid, vitamin C, (VITAMIN C) 500 mg tablet Take 500 mg by mouth once daily. GEMTESA 75 mg tablet Take 1 tablet by mouth once daily. pregabalin (LYRICA) 100 mg capsule Take 100 mg by mouth three times daily. Cholecalciferol, Vitamin D3, (VITAMIN D-3) 2,000 unit Tab Take 1 tablet by mouth once daily. No current facility-administered medications for this visit. PHYSICAL EXAM: BP 124/53 (BP Site: Left Arm, BP Position: Sitting, BP Cuff Size: Regular Adult) Pulse 70 Temp 36.1 C (97 F) (Temporal) Resp 16 Ht 154.9 cm (5' 1) Wt 79.8 kg (176 lb) SpO2 97% BMI 33.25 kg/m GENERAL: Patient is a well-nourished , appearing stated age, resting comfortably, breathing regularly. No acute distress. WOUND: Left knee wound Measurements 10 cm x 3cm, most of the wound is granulating, there are few areas of exposed fascia and fat, no purulence seen. Assessment: Leobardo is a 73 year old female with superficial wound dehiscence s/p revision left total knee replacement on 06/19/2024 Plan: Optimize nutritional intake Photos uploaded to revoPT via [employer] with patient consent Recommend dressing changes with wound vac and wound vac changes 3 times per week Dressing applied today with saline moistened gauze packing, ABD over the wound, and wrapped with Kerlix and Vikas wrap. Continue follow up with the wound clinic and with orthopedics Follow up in 3 weeks The patient is seen and examined by Dr. Horton and the following reflects his service. Scribed by Shannon Puente RN documented in this encounterTrihealth [facility]11-29-2024 NoteD[facility]11-26-2024 NoteD[facility]11-26-2024 History of Present illness Narrative* Hal Hale APRN.CNP - 08/19/2024 11:11 AM EST Images from the original note were not included. Leobardo returns today for incision check. She is S/P revision L TKA (hinged knee), with scar debridement, TED, and assistance of plastics for elevation of previous lateral gastroc flap. Her incision hasbeen slow to heal and she developed necrosis along the midline incision early on. She was sent to the wound center and she underwent excisional debridement. She is now 9 weeks out from surgery. She is still seeing the wound center and sees Dr. Horton with Plastics this coming week. She has been in home PT and is due to start outpatient PT. Cultures from the wound have shown no growth. She remains on Doxycycline however. Physical exam: See image for incision. No surrounding erythema or warmth. She does have tenderness distal incision. ROM is 0-60. 5 degree extension lag. She remains neurovascularly intact. Incision: Continue with wound center and follow up with plastics. Continue home exercises and start outpatient PT with emphasis on quad strengthening and ROM. Will discuss case with Dr. Enciso regarding next steps. I will contact her if any changes in above plan. Hal Hale APRN.CNP Orthopaedic Surgery documented in this encounterTrihealth [facility]11-26-2024 Telephone encounter Note * Telephone Encounter - Hal Hale APRN.CNP - 08/19/2024 7:57 AM EST Order faxed. Hal Hale APRN.CNP August 19, 2024 7:57 AM [facility]11-26-2024 Miscellaneous Notes* Telephone Encounter - Hal Hale APRN.CNP - 08/19/2024 7:57 AM EST Order faxed. Hal Hale APRN.CNP August 19, 2024 7:57 AM * Telephone Encounter - Deidre Chan - 08/18/2024 8:18 AM EST HERRERA Mace is calling in stating that the patient's insurance will not approve any more home visits for physical therapy. Patient is asking for a prescription to be faxed to mariel [facility] for continuationof physical therapy. . Deidre Franz documented in this encounterTrihealth [facility]11-25-2024 Telephone encounter Note * Telephone Encounter - Piter Moran APRN.CNP - 08/18/2024 1:29 PM EST Noted. [facility]11-25-2024 Miscellaneous Notes* Telephone Encounter - Piter Moran APRN.CNP - 08/18/2024 1:29 PM EST Noted. * Telephone Encounter - Micaela Bergman RN - 08/18/2024 1:22 PM EST Venita with [facility] calling to reports patient is being discharged from their services. Patient will see wound center and do outpatient therapy. Micaela Bergman RN documented in this encounterTrihealth [facility]11-25-2024 Telephone encounter Note * Telephone Encounter - Micaela Bergman RN - 08/18/2024 1:22 PM EST Venita with [facility] calling to reports patient is being discharged from their services. Patient will see wound center and do outpatient therapy. Micaela Bergman RN [facility]11-25-2024 Telephone encounter Note* Telephone Encounter - Deidre Chan - 08/18/2024 8:18 AM EST HERRERA Mace is calling in stating that the patient's insurance will not approve any more home visits for physical therapy. Patient is asking for a prescription to be faxed to mariel [facility] for continuationof physical therapy. . Deidre Franz [facility]2024 Telephone encounter Note* Telephone Encounter - Hal Hale APRN.CNP - 08/08/2024 2:07 PM EST Called and left a Hal Hale APRN.CNP August 08, 2024 2:07 PM [facility] Work Phone: 1(297) 752-374511-15-2024 Miscellaneous Notes* Telephone Encounter - Hal Hale APRN.CNP - 08/08/2024 2:07 PM EST Called and left a MINGO Hale APRN.CNP August 08, 2024 2:07 PM * Telephone Encounter - Deidre Chan - 08/07/2024 2:18 PM EST PREM [facility]ido Enedina is calling. She is wanting to know if you have changed any of the precautionsfor this patient. Is she able to take a shower? Can she take the immobilizer off when seated? Etc. Patient is S/P revision L TKA. Lata can be reached at [phone]. Deidre Franz documented in this encounterTrihealth [facility]11-14-2024 Telephone encounter Note * Telephone Encounter - Deidre Chan - 08/07/2024 2:18 PM EST [facility] is calling. She is wanting to know if you have changed any of the precautionsfor this patient. Is she able to take a shower? Can she take the immobilizer off when seated? Etc. Patient is S/P revision L TKA. Lata can be reached at [phone]. Deidre Franz [facility]11-12-2024 NoteD[facility]11-12-2024 History of Present illness Narrative* Hal Hale APRN.LEE ANN - 08/05/2024 9:08 AM EST Images from the original note were not included. Leobardo returns today for incision check. She is S/P revision L TKA (hinged knee), with scar debridement, TED, and assistance of plastics for elevation of previous lateral gastroc flap. Her incision hasbeen slow to heal and she developed necrosis along the midline incision early on. She was sent to the wound center and she underwent excisional debridement. She is now 8 weeks out from surgery. She is undergoing daily dressing changes and is seeing the wound center weekly. She was last seen by plastics last week. Superficial cultures have shown no growth. She is here today for evaluation. Incision well healed other than midline area measuring approximately 10 cm x 3 cm x 0.5 cm. Wound bed is healthy appearing with pink granulating tissue. No purulence or cellulitis. See image beow: Image uploaded with patient verbal approval. Plan: She can slowly start ROM exercises up to 60 degrees of flexion. Continue quad strengthening. Continue WBAT. Follow up in wound care as scheduled. Follow up in clinic in 2 weeks. Red flags discussed and instructed to contact office immediately. All questions answered. Hal Hale APRN.CNP Orthopaedic Surgery documented in this encounterTrihealth [facility]11-08-2024 NoteD[facility]11-08-2024 History of Present illness Narrative* Shira Unger APRN.CNP - 08/01/2024 11:08 AM EST Images from the original note were not included. CC: Post Op HPI: Leobardo Valdez is a 73 year old who is 6 weeks s/p elevation of previous lateral gastrocnemius flap left knee 7 x 3 cm by Plastic surgery and revision of left total knee replacement by Orthopedics on 06/19/2024. She originally had a wound vac after surgery which is no longer in. Currently is followed at an outpatient wound clinic weekly and placing Santyl over the wound twice daily. Denies fevers, chills, erythema, induration, fluctuance, hematoma, seroma, purulent drainage, odor. ROS: GENERAL: Negative for malaise, significant weight loss and fever NECK: Negative for lumps, goiter, pain and significant neck swelling SKIN: Negative for lesions, rash, and itching. HEMATOLOGIC/LYMPHATIC/IMMUNOLOGIC: Negative for prolonged bleeding, bruising easily, and swollen nodes. PAIN: not an issue at this time. PMH: PAST MEDICAL HISTORY Diagnosis Date Calculus of gallbladder without mention of cholecystitis or obstruction 05/16/2005 DIABETES MELLITUS TYPE II-UNCOMPL 05/16/2005 Diarrhea Esophageal reflux 05/16/2005 HYPERTENSION NOS 05/16/2005 HYPOTHYROIDISM NOS 05/16/2005 Internal hemorrhoids without mention of complication PSH: PAST SURGICAL HISTORY Procedure Laterality Date APPENDECTOMY 09/12/1996 ARTHRP KNE CONDYLE&PLATU MEDIAL&LAT COMPARTMENTS Left 10/22/2013 Knee replacement, total CHOLECYSTECTOMY 10/25/1999 Cholecystectomy COLONOSCOPY W/BIOPSY SINGLE/MULTIPLE 06/15/2010 DILATION & CURETTAGE DX&/THER NONOBSTETRIC , 11/05/1981 Dilation & curettage INCISION & DRAINAGE ABSCESS SIMPLE/SINGLE 09/02/2007 I&D [place] PAST SURGICAL HISTORY OF Left 09/22/2014 Revision left TKA PAST SURGICAL HISTORY OF Left 10/09/2014 Knee flap left TKA RPR UMBILICAL HRNA 5 YRS/> REDUCIBLE 04/21/1997 Hernia repair, umbilical >5yr SIGMOIDOSCOPY FLX DX W/COLLJ SPEC BR/WA IF PFRMD 07/14/1986 Sigmoidoscopy, anal fistulectomy THYROIDECTOMY TOTAL/COMPLETE 03/24/2009 TOTAL TOTAL KNEE REPLACEMENT Right 2022 VAGINAL HYSTERECTOMY UTERUS 250 GM/< 01/27/2003 Hysterectomy, vaginal, left oophorectomy SOC: Social History Tobacco Use Smoking status: Never Smokeless tobacco: Never Vaping Use Vaping status: Never Used Substance Use Topics Alcohol use: Yes Comment: Rarely Drug use: No MEDICATIONS: Current Outpatient Medications Medication Sig Dispense Refill SANTYL ointment apply A NICKEL THICKNESS LAYER to affected area once daily amoxicillin-clavulanate potassium (AUGMENTIN) 875-125 mg per tablet Take 1 tablet by mouth every 12hours for 14 days. 28 tablet 0 acetaminophen (TYLENOL EXTRA STRENGTH) 500 mg tablet Take 500 mg by mouth every 8 hours. menthol/zinc oxide (CALMOSEPTINE TOPICAL) Apply 1 Application to affected area two times a day. empagliflozin (JARDIANCE) 25 mg tablet Take 25 mg by mouth daily with breakfast. Dmnmafap-Gbkabsnyd-Zasdcnt HMB (SHWETHA) 7-7-1.5 gram pwpk Take 1 Packet by mouth once daily. MAGNESIUM CITRATE ORAL Take 300 mL by mouth once daily as needed (constipation). (Patient not taking: Reported on 07/29/2024) oxyCODONE IR (ROXICODONE) 10 mg tab Take 1-2 tablets by mouth every 4 hours as needed for pain (pain score 4-10). polyethylene glycol 3350 17 gram packet Take 17 g by mouth once daily. Dissolve dose in 4 - 8 ounces of liquid and take as directed. (Patient not taking: Reported on 07/29/2024) potassium chloride (KLOR-CON M20 ORAL) Take 20 mEq by mouth once daily. doxycycline hyclate (VIBRAMYCIN) 100 mg capsule Take 1 capsule (100 mg) by mouth every 12 hours at 6 am and 6 pm for 165 doses. [address] (PROTONIX) 20 mg tablet Take 1 tablet by mouth daily at 6 am. 30 tablet 0 metFORMIN ER (GLUCOPHAGE XR) 500 mg 24 hr tablet Take 2 tablets by mouth two times a day. Patient should start on June 21, 2024. 360 tablet 3 atorvastatin (LIPITOR) 10 mg tablet Take 0.5 tablets by mouth every other day. For cholesterol. 45 tablet 1 iron polysaccharide complex (NU-IRON) 150 mg iron capsule Take 1 capsule by mouth once daily. 90 capsule 3 cyanocobalamin (VITAMIN B-12) 1,000 mcg tab Take 1 tablet by mouth once daily. 90 tablet 3 FARXIGA 10 mg tablet Take 1 tablet by mouth once daily. 90 tablet 3 folic acid 1 mg tablet Take 1 tablet by mouth once daily. 90 tablet 3 hydroCHLOROthiazide 12.5 mg capsule Take 1 capsule by mouth once daily. 90 capsule 3 levothyroxine (SYNTHROID) 100 mcg tablet Take 1 tablet by mouth once daily. Take one tab daily 90 tablet 3 losartan (COZAAR) 50 mg tablet Take 1 tablet by mouth once daily. 90 tablet 3 glimepiride (AMARYL) 4 mg tablet Take 1 tablet by mouth two times a day. 180 tablet 3 ascorbic acid, vitamin C, (VITAMIN C) 500 mg tablet Take 500 mg by mouth once daily. GEMTESA 75 mg tablet Take 1 tablet by mouth once daily. pregabalin (LYRICA) 100 mg capsule Take 100 mg by mouth three times daily. Cholecalciferol, Vitamin D3, (VITAMIN D-3) 2,000 unit Tab Take 1 tablet by mouth once daily. No current facility-administered medications for this visit. PHYSICAL EXAM: BP 127/69 Pulse 76 Temp 36.7 C (98 F) GENERAL: Patient is a well-nourished , appearing stated age, resting comfortably, breathing regularly. No acute distress. Left knee No cellulitis or purulence seen. No s/s of infection Wound Measurement: 10.3cm x 3cm x .6cm with areas of pink/red granulation tissue Assessment: Leobardo is a 73 year old female who is s/p elevation of previous lateral gastrocnemius flap left knee by plastic surgery on 06/19/2024 Plan: Optimize nutritional intake- increase protein intake to promote wound healing Continue going to wound center weekly and current wound care Instructed patient to monitor for signs of infection including, fevers, chills, reddness Follow up in [address] Alcala The patient is seen and examined by Shira Unger APRN.CNP and the following reflects his service. Scribed by Shannon Puente RN and Edel Barth RN I agree with the Chief Complaint, ROS, and Past Histories independently gathered by the clinical it support consultant and the remaining scribed note accurately describes my personal service to the patient. Shira Unger APRN.CNP documented in this encounterTrihealth [facility]11-05-2024 Instructions* Patient Instructions* Aashish Bahena MD - 07/29/2024 5:02 PM EST - Discontinue Robaxin and Sanctura. - Continue taking prescribed medications, including Jardiance, Farxiga, folic acid, thyroid medication, iron, and blood pressure medications. - Continue taking Lyrica 100 mg three times a day as prescribed by Dr. Renteria. - Take Tylenol as needed for pain, not exceeding 4 grams per day. - Take oxycodone as needed for pain, especially if it interferes with sleep. - Continue taking potassium supplements and maintain a diet rich in potassium. - Continue taking vitamin C, calcium, glutamine, vitamin D, and B12 as prescribed. - Continue using Santyl ointment on the wound as directed by Dr. Esquivel. - Perform range of motion exercises on the unaffected leg to maintain strength and promote healing. - Next appointment in September, which will include lab tests for thyroid function, vitamin D, iron, TIBC, B12, metabolic panel, and blood counts. documented in this encounterTrihealth Bethes[facility]11-05-2024 NoteD[facility] History of Present illness Narrative* Aashish Bahena MD - 07/29/2024 4:35 PM EST This note was created using [employer]. Subjective Leobardo Valdez is a 73 year old female. Patient presents with: Hospital F/U: Follow up Left knee replacement SUBJECTIVE: Leobardo Valdez is a 73 year old year old lady here today for hospital follow up appointment for review of medical conditions. Leobardo Valdez is a 73-year-old female with a history of diabetes mellitus, presenting for follow-up on a non-healing wound. Leobardo has been under the care of Dr. Esquivel at the wound care center for a non-healing wound at the incision site. The wound has shown delayed healing, despite x-rays indicating proper joint healing. Leobardo reports that the wound care team recently started applying Santyl to the wound last week to aid in debridement. She notes that the wound was cleaned today, a couple of hours prior to the visit, and she observes that the wound appears to be healing, with pink edges forming. She is taking vitamin C, calcium, glutamine, vitamin D, and B12 to support healing. She is also on an tibiotics. Leobardo is currently immobilized and is not performing any range of motion exercises on the affected side. However, she is working on her right leg as per her therapist's instructions. Leobardo is taking oxycodone 10 mg, 1-2 tablets every 4 hours as needed for pain, but she reports usingit sparingly due to concerns about addiction. She experiences pain severe enough to interfere with sleep at times. She takes Tylenol daily for pain management. She denies constipation and is not using polyethylene glycol or Sanctura. Leobardo is also on multiple medications for diabetes management, including Jardiance, Farxiga, and metformin. She is taking folic acid, thyroid medication, iron, potassium, and Lyrica 100 mg TID. She denies taking Robaxin and Narcan, and she has not received a prescription for Narcan. She is also on Lipitor. Recent labs from June showed a slightly low potassium level on June 27, and her last A1C on June 06 was 7.0%. PAST MEDICAL HISTORY Diagnosis Date Calculus of gallbladder without mention of cholecystitis or obstruction 05/16/2005 DIABETES MELLITUS TYPE II-UNCOMPL 05/16/2005 Diarrhea Esophageal reflux 05/16/2005 HYPERTENSION NOS 05/16/2005 HYPOTHYROIDISM NOS 05/16/2005 Internal hemorrhoids without mention of complication Current Outpatient Medications Medication Sig SANTYL ointment apply A NICKEL THICKNESS LAYER to affected area once daily amoxicillin-clavulanate potassium (AUGMENTIN) 875-125 mg per tablet Take 1 tablet by mouth every 12hours for 14 days. acetaminophen (TYLENOL EXTRA STRENGTH) 500 mg tablet Take 500 mg by mouth every 8 hours. menthol/zinc oxide (CALMOSEPTINE TOPICAL) Apply 1 Application to affected area two times a day. empagliflozin (JARDIANCE) 25 mg tablet Take 25 mg by mouth daily with breakfast. Anxvjbyv-Jxksibblm-Hjenwme HMB (SHWETHA) 7-7-1.5 gram pwpk Take 1 Packet by mouth once daily. oxyCODONE IR (ROXICODONE) 10 mg tab Take 1-2 tablets by mouth every 4 hours as needed for pain (pain score 4-10). potassium chloride (KLOR-CON M20 ORAL) Take 20 mEq by mouth once daily. doxycycline hyclate (VIBRAMYCIN) 100 mg capsule Take 1 capsule (100 mg) by mouth every 12 hours at 6 am and 6 pm for 165 doses. metFORMIN ER (GLUCOPHAGE XR) 500 mg 24 hr tablet Take 2 tablets by mouth two times a day. Patient should start on June 21, 2024. atorvastatin (LIPITOR) 10 mg tablet Take 0.5 tablets by mouth every other day. For cholesterol. iron polysaccharide complex (NU-IRON) 150 mg iron capsule Take 1 capsule by mouth once daily. cyanocobalamin (VITAMIN B-12) 1,000 mcg tab Take 1 tablet by mouth once daily. FARXIGA 10 mg tablet Take 1 tablet by mouth once daily. folic acid 1 mg tablet Take 1 tablet by mouth once daily. hydroCHLOROthiazide 12.5 mg capsule Take 1 capsule by mouth once daily. levothyroxine (SYNTHROID) 100 mcg tablet Take 1 tablet by mouth once daily. Take one tab daily losartan (COZAAR) 50 mg tablet Take 1 tablet by mouth once daily. glimepiride (AMARYL) 4 mg tablet Take 1 tablet by mouth two times a day. ascorbic acid, vitamin C, (VITAMIN C) 500 mg tablet Take 500 mg by mouth once daily. GEMTESA 75 mg tablet Take 1 tablet by mouth once daily. pregabalin (LYRICA) 100 mg capsule Take 100 mg by mouth three times daily. Cholecalciferol, Vitamin D3, (VITAMIN D-3) 2,000 unit Tab Take 1 tablet by mouth once daily. MAGNESIUM CITRATE ORAL Take 300 mL by mouth once daily as needed (constipation). (Patient not taking: Reported on 07/29/2024) polyethylene glycol 3350 17 gram packet Take 17 g by mouth once daily. Dissolve dose in 4 - 8 ounces of liquid and take as directed. (Patient not taking: Reported on 07/29/2024) pantoprazole DR (PROTONIX) 20 mg tablet Take 1 tablet by mouth daily at 6 am. No current facility-administered medications for this visit. Review of Systems Objective BP 124/68 Pulse 73 Temp 36.6 C (97.8 F) Resp 16 SpO2 98% Physical Exam Constitutional: Appearance: Normal appearance. HENT: Head: Normocephalic. Eyes: Conjunctiva/sclera: Conjunctivae normal. Cardiovascular: Rate and Rhythm: Normal rate and regular rhythm. Heart sounds: Normal heart sounds. Pulmonary: Effort: Pulmonary effort is normal. Breath sounds: Normal breath sounds. Musculoskeletal: Right lower leg: No edema. Left lower leg: No edema. Skin: General: Skin is warm and dry. Neurological: General: No focal deficit present. Mental Status: She is alert and oriented to person, place, and time. Psychiatric: Attention and Perception: Attention and perception normal. Mood and Affect: Mood and affect normal. Speech: Speech normal. Behavior: Behavior normal. Thought Content: Thought content normal. Cognition and Memory: Cognition normal. Judgment: Judgment normal. Hemoglobin A1C (%) Date Value 06/06/2024 7.0 03/31/2024 7.0 10/17/2023 7.2 04/05/2023 6.8 01/15/2017 7.4 10/16/2016 7.4 07/11/2016 9.7 03/30/2016 9.1 12/23/2015 8.2 Latest Ref Rng 04/05/2023 10/17/2023 03/31/2024 Creatinine, Ur Random (UCRR) 20.0 - 300.0 mg/dL 149.9 50.3 26.0 Albumin, Urine Random mg/L <12.0 <12.0 <12.0 Albumin/Creat Ratio <8 <24 -- CBC and BMP/CMP reviewed. Assessment and Plan # Controlled type 2 diabetes mellitus without complication, without long-term current use of insulin (HCC) (E11.9) - Hemoglobin A1c was 7% on June 06. - Continue current medications: Jardiance, Farxiga, and metformin. - Next A1c due between August and November. # Wound healing, delayed (T14.8XXD) - Wound healing is progressing slowly; currently managed by Dr. Esquivel with Santyl application. - Wound shows signs of granulation with pink edges; no significant pain reported during debridement. - Continue current wound care regimen. - Maintain nutritional support with vitamin C, zinc, calcium, glutamine, vitamin D, and B12. - Continue antibiotics as prescribed. - Encouraged adequate rest to facilitate healing. - Follow-up with wound care center as scheduled. # Primary hypertension (I10) - Blood pressure readings are stable. - Continue current antihypertensive medications. # Acquired hypothyroidism (E03.9) - Continue current thyroid medication. - Thyroid labs ordered for September. I spent a total of 28 minutes on the date of the service which included [id number] patient care, completing clinical documentation, obtaining and/or reviewing separately obtained history, performing a medically appropriate examination, counseling and educating the patient/family/caregiver, ordering medications, tests, or procedures, independently interpreting results (not separately reported), and communicating results to the patient/family/caregiver. Aashish Bahena MD documented in this encounterTrihealth [facility]11-04-2024 Telephone encounter Note * Telephone Encounter - Yuri Brady APRN.CNS - 07/28/2024 4:59 PM EST [facility] Work Phone: 1(279) 304-275211-04-2024 Miscellaneous Notes* Telephone Encounter - Yuri Brady APRN.CNS - 07/28/2024 4:59 PM EST [facility] * Telephone Encounter - Mell Machado RN - 07/28/2024 2:15 PM EST Lata OT calling from [facility] to report plan of care for patient and OT will visit patient one time aweek for two weeks. Initial visit was a delay in start of care d/t full provider schedule. No call back needed unless provider has questions. Mell Machado RN documented in this encounterTrihealth Bethes[facility]11-04-2024 Telephone encounter Note * Telephone Encounter - Kiar Adams LPN - 07/28/2024 4:22 PM EST [facility] access hospital aware of ok for POC. [facility]11-04-2024 Miscellaneous Notes* Telephone Encounter - Kira Adams LPN - 07/28/2024 4:22 PM EST Critical access hospital aware of ok for POC. * Telephone Encounter - Yuri Brady APRN.KENZIE - 07/25/2024 5:01 PM EDT OK for [facility] * Telephone Encounter - Paras Castañeda LPN - 07/22/2024 2:43 PM EDT Geri, [facility], calling with POC. They will see pt 1x/week for 5 weeks for wound care, pain management, fall prevention and medication education. Paras Castañeda LPN documented in this encounterTrihealth [facility]11-04-2024 Telephone encounter Note * Telephone Encounter - Mell Machado RN - 07/28/2024 2:15 PM EST Lata OT calling from [facility] to report plan of care for patient and OT will visit patient one time aweek for two weeks. Initial visit was a delay in start of care d/t full provider schedule. No call back needed unless provider has questions. Mell Machado RN [facility]11-01-2024 Telephone encounter Note* Telephone Encounter - Yuri Brady APRN.CNS - 07/25/2024 5:01 PM EDT [facility] for [facility] Work Phone: 1(394) 106-156710-31-2024 NoteD[facility]10-31-2024 History of Present illness Narrative* Hal Hale APRN.CNP - 07/24/2024 1:58 PM EDT Leobardo returns today for incision check. Was sent to wound care and underwent excisional debridement in [place] last week. Has been started on daily dressing changes with Santyl. She returns next week for repeat evaluation and possible further debridement. Incision well healed other than 5 cm length 1 cm width and 0.25 cm depth of open wound midline incision. Slough in wound without significant drainage. No surrounding erythema or warmth. Leobardo and I discussed her current state. She should remain in the knee immobilizer. I will add Augmentin for additional antibiotic coverage (unable to take Bactrim). Continue Doxycycline. She will follow up on 08/05 for incision check. Red flags discussed and encouraged to contact office immediatelyfor any developments. All questions answered. Hal Hale APRN.CNP Orthopaedic Surgery documented in this encounterTrihealth Bethes[facility]10-31-2024 History of Present illness Narrative* Bharath Ortega Tech - 07/24/2024 12:10 PM EDT Radiology Service Progress Note PATIENT NAME: Leobardo Valdez DATE OF SERVICE: July 24, 2024 TIME: 12:52 PM PATIENT IDENTITY VERIFICATION COMPLETED USING TWO (2) IDENTIFIERS: Name and Date of confirmedby patient verbally. FALL SCREENING: Has the patient had 2 falls in the last year or 1 fall with injury or currently using an Ambulatory Assistive Device (Walker, Cane, Wheelchair, Crutches, etc.)? No PATIENT GENDER DATA: Female. status: : No status: NO. PATIENT RELEVANT IMPLANT DATA REVIEWED: Not Applicable PATIENT PRESENTS WITH AN IMPLANTABLE OR ATTACHED BANANA RIPENING ROOM SUPERVISOR: No RADIOLOGY DEPARTMENT: General X-ray: Exam(s) Completed: Lower Extremity X- Ray(s): Knee, AP / LAT Left PERIPHERAL IV DATA: Not applicable SIGNED BY: Terra Bell July 24, 2024 12:52 PM documented in this encounterTrihealth Bethes[facility]10-31-2024 NoteHNO ID: [id number] Author: BHARATH ORTEGA Tech Service: ? Author Type: Pillowcase Cleaner Type: Progress Notes Filed: 07/24/2024 12:52 Note Text: Radiology Service Progress Note PATIENT NAME: Leobardo Valdez DATE OF SERVICE: July 24, 2024 TIME: 12:52 PM PATIENT IDENTITY VERIFICATION COMPLETED USING TWO (2) IDENTIFIERS: Name and Date of confirmed by patient verbally. FALL SCREENING: Has the patient had 2 falls in the last year or 1 fall with injury or currently using an Ambulatory Assistive Device (Walker, Cane, Wheelchair, Crutches, etc.)? No PATIENT GENDER DATA: Female. status: : No status: NO. PATIENT RELEVANT IMPLANT DATA REVIEWED: Not Applicable PATIENT PRESENTS WITH AN IMPLANTABLE OR ATTACHED BANANA RIPENING ROOM SUPERVISOR: No RADIOLOGY DEPARTMENT: General X-ray: Exam(s) Completed: Lower Extremity X-Ray(s): Knee, AP / LAT Left PERIPHERAL IV DATA: Not applicable SIGNED BY: Terra Bell July 24, 2024 12:52 PMCleveland Clinic Children'S Hospital For [id number] Telephone encounter Note* Telephone Encounter - Paras Castañeda LPN - 07/22/2024 2:43 PM EDT KATHLEEN Nevarez [facility], calling with POC. They will see pt 1x/week for 5 weeks for wound care, pain management, fall prevention and medication education. Paras Castañeda LPN [facility]10-29-2024 Telephone encounter Note* Telephone Encounter - Tatiana Alvarenga RN - 07/22/2024 1:21 PM EDT Jonathan- PT- [facility] - reporting PT POC: will see patient 2 x week for 4 weeks, for functional mobilitytraining. No call back needed. [facility]10-29-2024 Miscellaneous Notes* Telephone Encounter - Tatiana Alvarenga RN - 07/22/2024 1:21 PM EDT Jonathan- PT- [facility] - reporting PT POC: will see patient 2 x week for 4 weeks, for functional mobilitytraining. No call back needed. documented in this encounterTrihealth Bet[facility]10-28-2024 Telephone encounter Note * Telephone Encounter - Chely Oh RN - 07/21/2024 3:22 PM EDT Informed john Grajeda, patient does not need to continue either medication. [facility] Work Phone: 1([phone]) 395-807210-28-2024 Miscellaneous Notes* Telephone Encounter - Chely Oh RN - 07/21/2024 3:22 PM EDT Informed john Grajeda, patient does not need to continue either medication. * Telephone Encounter - Chely Oh RN - 07/21/2024 2:44 PM EDT Patient had REVISION JOINT LEFT TOTAL KNEE FEMORAL AND ENTIRE TIBIAL COMPONENT on 06/24/24. Nicci from [facility], states patient does not have eliquis 2.5 BID to continue or robaxin 500mg TID to continue. Please send to listed [facility] in chart if you would like the patient to continue. Nicci [phone] if needed. documented in this encounterTrihealth Bethes[facility]10-28-2024 Telephone encounter Note * Telephone Encounter - Chely Oh RN - 07/21/2024 2:44 PM EDT Patient had REVISION JOINT LEFT TOTAL KNEE FEMORAL AND ENTIRE TIBIAL COMPONENT on 06/24/24. Nicci from [facility], states patient does not have eliquis 2.5 BID to continue or robaxin 500mg TID to continue. Please send to listed [facility] in chart if you would like the patient to continue. Nicci [phone] if needed. [facility]10-25-2024 Telephone encounter Note* Telephone Encounter - Fabio Santiago MA - 07/18/2024 9:20 AM EDT Korin notified. [facility]10-25-2024 Miscellaneous Notes* Telephone Encounter - Fabio Santiago MA - 07/18/2024 9:20 AM EDT Korin notified. * Telephone Encounter - Yuri Brady APRN.CNS - 07/17/2024 5:00 PM EDT OK for [facility] * Telephone Encounter - Leora Tony LPN - 07/16/2024 11:37 AM EDT Korin from [facility] calling, patient is being discharged from TCU on Sunday with HH orders. Askingif PCP agrees and is willing to follow. Please advise. documented in this encounterTrihealth Bethes[facility]10-24-2024 Telephone encounter Note * Telephone Encounter - Yuri Brady APRN.CNS - 07/17/2024 5:00 PM EDT OK for [facility] Work Phone: 1([phone]) 568-571610-23-2024 NoteD[facility] Center10-23-2024 History of Present illness Narrative* Hal Hale APRN.OPENING MACHINE CLEANER - 07/16/2024 11:43 AM EDT Post-op Office Visit Leobardo Valdez 73 year old July 16, 2024 11:43 AM History: Leobardo Valdez Is now s/p left knee revision with elevation of previous lateral gastroc flap. Post-operative course has been without complication. No readmission/complications Her incision has had necrosis and slow to heal Subjective: Patient reports minimal pain. Overall is doing well. Wheelchair and knee immobilizer ambulatory aid Rarely taking opioid pain medication Objective: Ambulates with walker Incision with roughly 5 cm length longitudinal skin necrosis of midline incision. There is no drainage or wound dehiscence ROM not tested Distally DP/PT palpable Distally S/S/SP/DP/T intact at baseline Distally DF/EHL/PF intact at baseline Negative jarret/calf tenderness Xrays: No new today Assessment and Plan: Leobardo Valdez Is here for a second post-op appointment, overall doing well -continued ice, rest, and use of non-narcotic analgesia as needed -PWB 50% -Knee immobilizer when out of bed, no ROM -Daily dressing changes (xeroform gauze, ABD, kerlix and VIKAS wrap) -Referral to wound center ([facility]) -Continue Doxycycline -Follow up next week as scheduled Hal Hale APRN.CNP Orthopaedic Surgery documented in this encounterTrihealth Bethes[facility]10-23-2024 Telephone encounter Note * Telephone Encounter - Leora Tony LPN - 07/16/2024 11:37 AM EDT Korin from [facility] calling, patient is being discharged from TCU on Sunday with HH orders. Askingif PCP agrees and is willing to follow. Please advise. [facility]10-22-2024 [facility]10-21-2024 Telephone encounter Note* Telephone Encounter - Marci Hill - 07/14/2024 8:57 AM EDT Spoke with patient and scheduled appointment on 07/16 [facility]10-21-2024 Miscellaneous Notes* Telephone Encounter - Marci Hill - 07/14/2024 8:57 AM EDT Spoke with patient and scheduled appointment on 07/16 * Telephone Encounter - Hal Hale APRN.CNP - 07/14/2024 7:21 AM EDT Please contact patient and move appointment up to this Sunday AM. Incision check only. No x-raysneeded. Please keep appointment as scheduled for 07/24 as well. Hal Hale APRN.CNP July 14, 2024 7:24 AM documented in this encounterTrihealth Bethes[facility]10-21-2024 Telephone encounter Note * Telephone Encounter - Hal Hale APRN.CNP - 07/14/2024 7:21 AM EDT Please contact patient and move appointment up to this Sunday AM. Incision check only. No x-raysneeded. Please keep appointment as scheduled for 07/24 as well. Hal Hale APRN.CNP July 14, 2024 7:24 AM [facility] Work Phone: 1(249) 630-510910-18-2024 History of Present illness Narrative* Urban Horton MD - 07/11/2024 8:30 AM EDT Images from the original note were not included. CC: Post Op HPI: Leobardo Valdez is a 73 year old who is 3 weeks s/p elevation of previous lateral gastrocnemius flap left knee 7 x 3 cm by Plastic surgery and revision of left total knee replacement by Orthopedics on 06/19/2024. She originally had a wound vac after surgery which is no longer in She followed up with orthopedics yesterday who recommended daily dressing changes with Xeroform gauze, ABD, kerlix, and Vikas Wrap. She is concerned about the wound healing at this time. Orthopedics recommended follow up with plastic surgery. Denies fevers, chills, erythema, induration, fluctuance, hematoma, seroma, purulent drainage, odor. Patient rates pain 2 out of 10, currently not taking anything for pain. ROS: GENERAL: Negative for malaise, significant weight loss and fever NECK: Negative for lumps, goiter, pain and significant neck swelling SKIN: Negative for lesions, rash, and itching. HEMATOLOGIC/LYMPHATIC/IMMUNOLOGIC: Negative for prolonged bleeding, bruising easily, and swollen nodes. PAIN: not an issue at this time. PMH: PAST MEDICAL HISTORY Diagnosis Date Calculus of gallbladder without mention of cholecystitis or obstruction 05/16/2005 DIABETES MELLITUS TYPE II-UNCOMPL 05/16/2005 Diarrhea Esophageal reflux 05/16/2005 HYPERTENSION NOS 05/16/2005 HYPOTHYROIDISM NOS 05/16/2005 Internal hemorrhoids without mention of complication PSH: PAST SURGICAL HISTORY Procedure Laterality Date APPENDECTOMY 09/12/1996 ARTHRP KNE CONDYLE&PLATU MEDIAL&LAT COMPARTMENTS Left 10/22/2013 Knee replacement, total CHOLECYSTECTOMY 10/25/1999 Cholecystectomy COLONOSCOPY W/BIOPSY SINGLE/MULTIPLE 06/15/2010 DILATION & CURETTAGE DX&/THER NONOBSTETRIC , 11/05/1981 Dilation & curettage INCISION & DRAINAGE ABSCESS SIMPLE/SINGLE 09/02/2007 I&D Bartholins PAST SURGICAL HISTORY OF Left 09/22/2014 Revision left TKA PAST SURGICAL HISTORY OF Left 10/09/2014 Knee flap left TKA RPR UMBILICAL HRNA 5 YRS/> REDUCIBLE 04/21/1997 Hernia repair, umbilical >5yr SIGMOIDOSCOPY FLX DX W/COLLJ SPEC BR/WA IF PFRMD 07/14/1986 Sigmoidoscopy, anal fistulectomy THYROIDECTOMY TOTAL/COMPLETE 03/24/2009 TOTAL TOTAL KNEE REPLACEMENT Right 2022 VAGINAL HYSTERECTOMY UTERUS 250 GM/< 01/27/2003 Hysterectomy, vaginal, left oophorectomy SOC: Social History Tobacco Use Smoking status: Never Smokeless tobacco: Never Vaping Use Vaping status: Never Used Substance Use Topics Alcohol use: Yes Comment: Rarely Drug use: No MEDICATIONS: Current Outpatient Medications Medication Sig Dispense Refill docusate sodium (COLACE) 100 mg capsule Take 1 capsule by mouth two times a day. 60 capsule 0 naloxone 4 mg/actuation nasal spray (NARCAN) Use 1 spray in one nostril as needed for overdose. Mayrepeat every 2 to 3 min in alternating nostrils until medical assistance is available 2 Each 0 apixaban (ELIQUIS) 2.5 mg tab(s) Take 1 tablet by mouth two times a day. 60 tablet 0 doxycycline hyclate (VIBRAMYCIN) 100 mg capsule Take 1 capsule (100 mg) by mouth every 12 hours at 6 am and 6 pm for 165 doses. [address] (PROTONIX) 20 mg tablet Take 1 tablet by mouth daily at 6 am. 30 tablet 0 trospium (SANCTURA) 20 mg tablet Take 1 tablet by mouth two times a day before meals. This is the therapeutic interchange if your pharmacy does not have Gemtesa. losartan-hydroCHLOROthiazide (HYZAAR) 50-12.5 mg per tablet Take by mouth. metFORMIN ER (GLUCOPHAGE XR) 500 mg 24 hr tablet Take 2 tablets by mouth two times a day. Patient should start on June 21, 2024. 360 tablet 3 atorvastatin (LIPITOR) 10 mg tablet Take 0.5 tablets by mouth every other day. For cholesterol. 45 tablet 1 iron polysaccharide complex (NU-IRON) 150 mg iron capsule Take 1 capsule by mouth once daily. 90 capsule 3 cyanocobalamin (VITAMIN B-12) 1,000 mcg tab Take 1 tablet by mouth once daily. 90 tablet 3 nystatin (MYCOSTATIN) cream Apply to affected area two times a day. 30 g 2 FARXIGA 10 mg tablet Take 1 tablet by mouth once daily. 90 tablet 3 folic acid 1 mg tablet Take 1 tablet by mouth once daily. 90 tablet 3 hydroCHLOROthiazide 12.5 mg capsule Take 1 capsule by mouth once daily. 90 capsule 3 levothyroxine (SYNTHROID) 100 mcg tablet Take 1 tablet by mouth once daily. Take one tab daily 90 tablet 3 losartan (COZAAR) 50 mg tablet Take 1 tablet by mouth once daily. 90 tablet 3 glimepiride (AMARYL) 4 mg tablet Take 1 tablet by mouth two times a day. 180 tablet 3 ascorbic acid, vitamin C, (VITAMIN C) 500 mg tablet Take 500 mg by mouth once daily. GEMTESA 75 mg tablet Take 1 tablet by mouth once daily. pregabalin (LYRICA) 100 mg capsule Take 100 mg by mouth three times daily. Cholecalciferol, Vitamin D3, (VITAMIN D-3) 2,000 unit Tab Take 1 tablet by mouth once daily. No current facility-administered medications for this visit. PHYSICAL EXAM: BP 133/62 Pulse 78 Temp (!) 35.5 C (95.9 F) (Temporal) Ht 156.2 cm (5' 1.5) Wt 84.4 kg (186 lb) BMI 34.58 kg/m GENERAL: Patient is a well-nourished , appearing stated age, resting comfortably, breathing regularly. No acute distress. WOUND: Longitudinal strip of skin necrosis, approximately 1 cm, along the medial edge of the left knee incision. No cellulitis or purulence seen Assessment: Leobardo is a 73 year old female who is s/p elevation of previous lateral gastrocnemius flap left knee by plastic surgery on 06/19/2024 Plan: Optimize nutritional intake Pictures uploaded to revoPT via [employer] with patient consent. Recommend dressing changes with Xeroform gauze, ABD, Kerlix and an vikas wrap to be changed daily. Instructed patient to keep the wound clean Instructed patient to monitor for signs of infection including, fevers, chills, reddness Follow up 3 weeks The patient is seen and examined by Dr. Horton and the following reflects his service. Scribed by Shannon Puente RN Attending Note I have personally performed a face to face assessment of the patient and have reviewed the RN's note. I agree with the Chief Complaint, ROS, and Past Histories independently gathered by the clinical it support consultant and the remaining scribed note accurately describes my personal service to the patient. This is a 73-year-old female s/p revision left total knee replacement on 06/19/2024. I had assisted orthopedics in elevation of her previous lateral gastrocnemius flap. She has developed longitudinal strip of skin necrosis along the medial edge of knee incision. Skin on the lateral aspect of the incision looks intact. Simple wound care with Xeroform has been recommended at this time. If there is skin necrosis is only superficial she should spontaneously heal. However if she has a full-thickness skin necrosis, there is a possibility she may end up with deeper infection including the joint. I have communicated my thoughts to , her orthopedic surgeon. SIGNATURE: Urban Horton MD DATE: July 11, 2024 TIME: 12:00 PM documented in this encounterTrihealth [facility]10-18-2024 [facility]-2024 NoteD[facility]10-17-2024 History of Present illness Narrative* Hal Hale, EKTA.OPENING MACHINE CLEANER - 07/10/2024 1:30 PM EDT Post-op Office Visit Leobardo Valdez 73 year old July 10, 2024 1:30 PM Surgery Date: 06/19/24 History: Leobardo Valdez Is now 3 weeks out from S/P Revision Left TKA. Post-operative course has been withoutcomplication. Incision slow to heal with necrosis Subjective: Patient reports improving pain. Overall is doing well. Wheelchair/walker/knee immobilizer ambulatory aid No opioid pain medication Objective: Incision well-approximated, no drainage, skin necrosis along the midline aspect of the incision. This is improved compared to previous. ROM not tested Distally DP/PT palpable Distally S/S/SP/DP/T intact at baseline Distally DF/EHL/PF intact at baseline Negative jarret/calf tenderness Xrays: None today Assessment and Plan: Leobardo Valdez Is here for follow up left knee -continued ice, rest, and use of non-narcotic analgesia as needed -PWB 50% on operative extremity -Knee immobilizer when out of bed, no ROM -Daily dressing changes (xeroform gauze, ABD, kerlix and VIKAS wrap) -Continue doxycycline -Follow up with plastics -Will see back in 2 weeks (x-rays needed) -discussed red flag symptoms of acutely increasing pain, new erythema, new swelling, drainage, shortness of breath Hal Hale APRN.CNP Orthopaedic Surgery documented in this encounterTrihealth [facility]10-10-2024 NoteD[facility] Center10-10-2024 History of Present illness Narrative* Hal Hale APRN.CNP - 07/03/2024 2:14 PM EDT Images from the original note were not included. Post-op Office Visit Leobardo Valdez 73 year old July 03, 2024 2:14 PM Surgery Date: 06/19/24 History: Leobardo Valdez Is now 2 weeks out from S/P Revision Left TKA. Post-operative course has been withoutcomplication. No readmission/complications Subjective: Patient reports improving pain. Overall is doing well. Wheelchair and walker ambulatory aid Objective: Ambulates with walker Incision well-approximated, no drainage, normal anali-incisional erythema. There is area of skin necrosis along the incision. There is scant serosanguineous drainage along the lateral aspect along theprior gastroc flap ROM not tested Distally DP/PT palpable Distally S/S/SP/DP/T intact at baseline Distally DF/EHL/PF intact at baseline Negative jarret/calf tenderness Incision: Xrays: Well-positioned total knee replacement in appropriate alignment with no evidence of loosening Assessment and Plan: Leobardo Valdez Is here for a first post-op appointment, overall doing well -continued ice, rest, and use of non-narcotic analgesia as needed -Advance to PWB on operative extremity -NO ROM, continue knee immobilizer -New sterile dressing with adaptic, ABD, kerlix, and VIKAS wrap applied -- Do not remove and do not allow to get wet. No showers -continue ankle pumps and dvt ppx through 4 weeks -will see back next week for incision check -discussed red flag symptoms of acutely increasing pain, new erythema, new swelling, drainage, shortness of breath Hal Hale APRN.LEE ANN Orthopaedic Surgery documented in this encounterTrihealth [facility]10-10-2024 History of Present illness Narrative* Hannah Tay Tech - 07/03/2024 1:10 PM EDT Radiology Service Progress Note PATIENT NAME: Leobardo Valdez DATE OF SERVICE: July 03, 2024 TIME: 1:09 PM PATIENT IDENTITY VERIFICATION COMPLETED USING TWO (2) IDENTIFIERS: Name and Date of confirmedby patient verbally. FALL SCREENING: Has the patient had 2 falls in the last year or 1 fall with injury or currently using an Ambulatory Assistive Device (Walker, Cane, Wheelchair, Crutches, etc.)? No PATIENT GENDER DATA: Female. status: : No status: NO. PATIENT RELEVANT IMPLANT DATA REVIEWED: Not Applicable PATIENT PRESENTS WITH AN IMPLANTABLE OR ATTACHED BANANA RIPENING ROOM SUPERVISOR: No RADIOLOGY DEPARTMENT: General X-ray: Exam(s) Completed: Lower Extremity X- Ray(s): Knee, AP / LAT Left PERIPHERAL IV DATA: Not applicable SIGNED BY: Terra Kaur July 03, 2024 1:09 PM documented in this encounterTrihealth Bethes[facility]10-10-2024 NoteHNO ID: [id number] Author: HANNAH TAY Tech Service: Radiology Author Type: Pillowcase Cleaner Type: Progress Notes Filed: 07/03/2024 13:09 Note Text: Radiology Service Progress Note PATIENT NAME: Leobardo Valdez DATE OF SERVICE: July 03, 2024 TIME: 1:09 PM PATIENT IDENTITY VERIFICATION COMPLETED USING TWO (2) IDENTIFIERS: Name and Date of confirmed by patient verbally. FALL SCREENING: Has the patient had 2 falls in the last year or 1 fall with injury or currently using an Ambulatory Assistive Device (Walker, Cane, Wheelchair, Crutches, etc.)? No PATIENT GENDER DATA: Female. status: : No status: NO. PATIENT RELEVANT IMPLANT DATA REVIEWED: Not Applicable PATIENT PRESENTS WITH AN IMPLANTABLE OR ATTACHED BANANA RIPENING ROOM SUPERVISOR: No RADIOLOGY DEPARTMENT: General X-ray: Exam(s) Completed: Lower Extremity X-Ray(s): Knee, AP / LAT Left PERIPHERAL IV DATA: Not applicable SIGNED BY: Terra Kaur July 03, 2024 1:09 PMC[facility] Clinic [facility] For [id number] [facility] 06-27-2024 NoteD[facility] Center10-04-2024 NoteD[facility]10-04-2024 NoteD[facility]10-03-2024 Telephone encounter Note* Telephone Encounter - Idalia Hernandez, Research Coordinator - 06/26/2024 12:57 PM EDT Called patient on 06/26/2024 via telephone. Patient agreed to receive the consent form via [employer].Send the consent form via docusign to patient on 06/26/2024 [facility]10-03-2024 Miscellaneous Notes* Telephone Encounter - Idalia Hernandez Research Coordinator - 06/26/2024 12:57 PM EDT Called patient on 06/26/2024 via telephone. Patient agreed to receive the consent form via docusign.Send the consent form via [employer] to patient on 06/26/2024 documented in this encounterTrihealth [facility]hes[facility]10-03-2024 NoteD[facility]10-02-2024 NoteD[facility]10-02-2024 NoteD[facility]10-01-2024 NoteD[facility]09-30-2024 Note [facility]09-30-2024 NoteD[facility]09-29-2024 NoteD[facility]09-29-2024 [facility] 06-21-2024 NoteD[facility] Center09-27-2024 NoteD[facility]09-27-2024 Telephone encounter Note* Telephone Encounter - Hal Hale APRN.CNP - 06/20/2024 9:19 AM EDT I called and spoke with Beata. Will follow Hal Hale APRN.CNP June 20, 2024 9:19 AM [facility] Work Phone: 1(843) 333-498109-27-2024 Miscellaneous Notes* Telephone Encounter - Hal Hale APRN.CNP - 06/20/2024 9:19 AM EDT I called and spoke with Beata. Will follow Hal Hale APRN.CNP June 20, 2024 9:19 AM * Telephone Encounter - Chely Oh RN - 06/20/2024 8:18 AM EDT Returned call to Beata. [phone] Got the after hours triage desk. Will call back. * Telephone Encounter - Deidre Chan - 06/19/2024 3:27 PM EDT ROSEMARY Cota from [facility] callling in. She is asking if Dr. Enciso will follow for home health care and sign her orders. ROSEMARY Cota can be reached at [phone]. Deidre Franz documented in this encounterTrihealth [facility]09-27-2024 Telephone encounter Note * Telephone Encounter - Chely Oh RN - 06/20/2024 8:18 AM EDT Returned call to Beata. [phone] Got the after hours triage desk. Will call back. [facility] Work Phone: 1(532) 992-139409-27-2024 NoteD[facility] Center09-26-2024 NoteD[facility]09-26-2024 Telephone encounter Note* Telephone Encounter - Deidre Chan - 06/19/2024 3:27 PM EDT [facility]ARY [facility]ota [facility] callling in. She is asking if Dr. Enciso will follow for home health care and sign her orders. ROSEMARY Cota can be reached at [phone]. Deidre Franz [facility]09-26-2024 NoteD[facility] Center09-26-2024 Note [facility]09-26-2024 NoteD[facility]09-16-2024 Telephone encounter Note* Telephone Encounter - Ilene Adkins LSW - 06/09/2024 1:02 PM EDT Images from the original note were not included. 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 Right knee also done in May of 2022 Social: Pre-Hospital Baseline Mental Status: Alert & Oriented Informant: Self Living Arrangement: Home Who able to assist you at home once you discharge? Spouse Are they available for at least 2 weeks? Yes Stairs: One story home 2 stairs to enter home Bedroom Location: First Bathroom Location: First Do you have problems that affect your ability to perform normal activities of daily living such as bathing, dressing, or toileting yourself? No = 0 What is your current functional status?: Perform ADLs independently Are you able to afford your medications/Food? Yes Social Determinants of Health Tobacco Use: Low Risk (06/06/2024) Patient History Smoking Tobacco Use: Never Smokeless Tobacco Use: Never Passive Exposure: Not on file Alcohol Use: Not At Risk (04/09/2024) AUDIT-C Frequency of Alcohol Consumption: 2-4 times a month Average Number of Drinks: 1 or 2 Frequency of Binge Drinking: Never Financial Resource Strain: Low Risk (04/09/2024) Overall Financial Resource Strain (CARDIA) Difficulty of Paying Living Expenses: Not hard at all Food Insecurity: No Food Insecurity (04/09/2024) Hunger Vital Sign Worried About Running Out of Food in the Last Year: Never true Ran Out of Food in the Last Year: Never true Transportation Needs: No Transportation Needs (04/09/2024) PRAPARE - Transportation Lack of Transportation (Medical): No Lack of Transportation (Non-Medical): No Physical Activity: Inactive (04/09/2024) Exercise Vital Sign Days of Exercise per Week: 0 days Minutes of Exercise per Session: 0 min Stress: No Stress Concern Present (04/09/2024) [place] [employer] - Occupational Stress Questionnaire Feeling of Stress : Not at all Social Connections: Socially Integrated (04/09/2024) Social Connection and Isolation Panel [NHANES] Frequency of Communication with Friends and Family: Twice a week Frequency of Social Gatherings with Friends and Family: Twice a week Attends Confucianism Services: More than 4 times per year Active Member of Clubs or Organizations: Yes Attends Club or Organization Meetings: More than 4 times per year Marital Status: Intimate Partner Violence: Not At Risk (04/09/2024) Safe at Home? Fear of Current or Ex-Partner: No Emotionally Abused: No Physically Abused: No Sexually Abused: No Safe at Home?: Not on file Depression: Not at risk (03/02/2024) PHQ-2 PHQ-2 Score: 1 Housing Stability: Low Risk (04/09/2024) Housing Stability Vital Sign Unable to Pay for Housing in the Last Year: No Number of Places Lived in the Last Year: 1 Unstable Housing in the Last Year: No Utilities: Not At Risk (04/09/2024) [facility] Utilities Threatened with loss of utilities: No Area Deprivation Index: Low Risk (04/03/2023) Area Deprivation Index National Score (1-100), lower number is lower risk: 35 State Score (1-10), lower number is lower risk: 2 Data from: https://www.neighborhoodatlas.medicine.[facility]/. Last address used for calculation: [address] [place] [address] Equipment: Do you currently use any equipment at home for your medical condition or to help you get around? Cane - Straight Patient stated she also has a walker, a wheelchair, crutches, a shower chair and an elevated toiletseat at home for after surgery Active Services/Needs: None Transportation: Do you have reliable transportation to and from surgery/appointments?: Yes Who will provide discharge transportation: Spouse Contact information for patient's ride: or Will your ride be available for 1200 discharge time? Yes Office Visit Follow Up Did you receive the antiseptic wipes from your surgeon s office? Yes Did you receive a prescription for an assistive device (walker or crutches) from your surgeon s office and fill it or do you already have one at home? Yes Did you attend a joint education class/Watched video? No Did you read the education book provided to you? Yes Have you let your PCP know you are having a joint replacement surgery? Yes If you are currently being seen by pain management, are they aware you are having a joint replacement surgery? Yes Have you informed any specialty care providers of your upcoming joint replacement surgery? N/A Have you made arrangements for your pets? No pets Is your house ready for your recovery? Yes PLAN OF CARE VISIT DISCUSSED: Yes FREEDOM OF CHOICE: Level of Care Discussed: Home Care Provider List: Home Care Provider list within the patient's requested geographic area offered to the patient/family: Yes - Within [place] [address] [place] Total Joint Arthroplasty (TJA) Surgical Risk Procedure: Not on file Date assessed: Not on file No data to display Patient lives outside of [facility] service area. Patient did not state a preference for any specific [facility] agency at this time, is in agreement with referrals being sent for multiple agencies near home to determine who could accept. Plan for spouse to provide D/C transport home following surgery. Anticipated patient will need to remain in the hospital overnight following surgery SIGNATURE: SYDNIE Chacon DATE: June 09, 2024 TIME: 1:02 PM [facility]09-16-2024 Miscellaneous Notes* Telephone Encounter - Ilene Adkins LSW - 06/09/2024 1:02 PM EDT Images from the original note were not included. 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 Right knee also done in May of 2022 Social: Pre-Hospital Baseline Mental Status: Alert & Oriented Informant: Self Living Arrangement: Home Who able to assist you at home once you discharge? Spouse Are they available for at least 2 weeks? Yes Stairs: One story home 2 stairs to enter home Bedroom Location: First Bathroom Location: First Do you have problems that affect your ability to perform normal activities of daily living such as bathing, dressing, or toileting yourself? No = 0 What is your current functional status?: Perform ADLs independently Are you able to afford your medications/Food? Yes Social Determinants of Health Tobacco Use: Low Risk (06/06/2024) Patient History Smoking Tobacco Use: Never Smokeless Tobacco Use: Never Passive Exposure: Not on file Alcohol Use: Not At Risk (04/09/2024) AUDIT-C Frequency of Alcohol Consumption: 2-4 times a month Average Number of Drinks: 1 or 2 Frequency of Binge Drinking: Never Financial Resource Strain: Low Risk (04/09/2024) Overall Financial Resource Strain (CARDIA) Difficulty of Paying Living Expenses: Not hard at all Food Insecurity: No Food Insecurity (04/09/2024) Hunger Vital Sign Worried About Running Out of Food in the Last Year: Never true Ran Out of Food in the Last Year: Never true Transportation Needs: No Transportation Needs (04/09/2024) PRAPARE - Transportation Lack of Transportation (Medical): No Lack of Transportation (Non-Medical): No Physical Activity: Inactive (04/09/2024) Exercise Vital Sign Days of Exercise per Week: 0 days Minutes of Exercise per Session: 0 min Stress: No Stress Concern Present (04/09/2024) [place] [employer] - Occupational Stress Questionnaire Feeling of Stress : Not at all Social Connections: Socially Integrated (04/09/2024) Social Connection and Isolation Panel [NHANES] Frequency of Communication with Friends and Family: Twice a week Frequency of Social Gatherings with Friends and Family: Twice a week Attends Confucianism Services: More than 4 times per year Active Member of Clubs or Organizations: Yes Attends Club or Organization Meetings: More than 4 times per year Marital Status: Intimate Partner Violence: Not At Risk (04/09/2024) Safe at Home? Fear of Current or Ex-Partner: No Emotionally Abused: No Physically Abused: No Sexually Abused: No Safe at Home?: Not on file Depression: Not at risk (03/02/2024) PHQ-2 PHQ-2 Score: 1 Housing Stability: Low Risk (04/09/2024) Housing Stability Vital Sign Unable to Pay for Housing in the Last Year: No Number of Places Lived in the Last Year: 1 Unstable Housing in the Last Year: No Utilities: Not At Risk (04/09/2024) [facility] Utilities Threatened with loss of utilities: No Area Deprivation Index: Low Risk (04/03/2023) Area Deprivation Index National Score (1-100), lower number is lower risk: 35 State Score (1-10), lower number is lower risk: 2 Data from: https://www.neighborhoodatlas.medicine.[facility].edu/. Last address used for calculation: [address] Equipment: Do you currently use any equipment at home for your medical condition or to help you get around? Cane - Straight Patient stated she also has a walker, a wheelchair, crutches, a shower chair and an elevated toiletseat at home for after surgery Active Services/Needs: None Transportation: Do you have reliable transportation to and from surgery/appointments?: Yes Who will provide discharge transportation: Spouse Contact information for patient's ride: or Will your ride be available for 1200 discharge time? Yes Office Visit Follow Up Did you receive the antiseptic wipes from your surgeon s office? Yes Did you receive a prescription for an assistive device (walker or crutches) from your surgeon s office and fill it or do you already have one at home? Yes Did you attend a joint education class/Watched video? No Did you read the education book provided to you? Yes Have you let your PCP know you are having a joint replacement surgery? Yes If you are currently being seen by pain management, are they aware you are having a joint replacement surgery? Yes Have you informed any specialty care providers of your upcoming joint replacement surgery? N/A Have you made arrangements for your pets? No pets Is your house ready for your recovery? Yes PLAN OF CARE VISIT DISCUSSED: Yes FREEDOM OF CHOICE: Level of Care Discussed: Home Care Provider List: Home Care Provider list within the patient's requested geographic area offered to the patient/family: Yes - Within [address] [place] [address] [address] Total Joint Arthroplasty (TJA) Surgical Risk Procedure: Not on file Date assessed: Not on file No data to display Patient lives outside of [facility] service area. Patient did not state a preference for any specific [facility] agency at this time, is in agreement with referrals being sent for multiple agencies near home to determine who could accept. Plan for spouse to provide D/C transport home following surgery. Anticipated patient will need to remain in the hospital overnight following surgery SIGNATURE: SYDNIE Chacon DATE: June 09, 2024 TIME: 1:02 PM * Telephone Encounter - Ilene Adkins LSW - 06/09/2024 11:51 AM EDT This SW attempted to contact patient to complete pre-op assessment at this time. Voicemail left forpatient, awaiting a return call. SYDNIE Chacon documented in this encounterTrihealth Bethesda [facility]09-16-2024 Telephone encounter Note * Telephone Encounter - Ilene Adkins LSW - 06/09/2024 11:51 AM EDT This SW attempted to contact patient to complete pre-op assessment at this time. Voicemail left forpatient, awaiting a return call. SYDNIE Chacon [facility]09-13-2024 Instructions* Patient Instructions* Leora Jaeger APRN.OPENING MACHINE CLEANER - 06/06/2024 11:24 AM EDT Images from the original note were not included. [facility] PATIENT PREOPERATIVE INSTRUCTIONS Mart Enciso MD has scheduled you for your procedure at this surgery center: [facility] [place] Scheduling Office: [phone] --[phone] [place] [address]. Please read below carefully for your personalized instructions. Dietary Restrictions: - No solid food after midnight. - You may have 12 ounces of clear liquids (water, clear juices such as apple juice or gatorade, carbonated beverages, clear tea, black coffee, jello) until 2 hours before scheduled arrival at facility. No red/purple coloring and no creamer/sugar Medications: Unless instructed differently below, stay on all of your medications until your surgery. If you start any new medications after today's visit, please contact your surgeon. Pre-Surgery Med Instructions Medication Instructions losartan-hydroCHLOROthiazide (HYZAAR) 50-12.5 mg per tablet Do not take the day of surgery rivaroxaban (XARELTO) 10 mg tablet Stop 3 days before surgery [START ON 06/21/2024] metFORMIN ER (GLUCOPHAGE XR) 500 mg 24 hr tablet Do not take the day of surgery atorvastatin (LIPITOR) 10 mg tablet Take the day of surgery with a small sip of water iron polysaccharide complex (NU-IRON) 150 mg iron capsule Stop 7 days before surgery cyanocobalamin (VITAMIN B-12) 1,000 mcg tab Stop 7 days before surgery nystatin (MYCOSTATIN) cream Do not take the day of surgery oxyCODONE-acetaminophen (PERCOCET) 5-325 mg tablet IF needed FARXIGA 10 mg tablet Stop 3 days before surgery folic acid 1 mg tablet Stop 7 days before surgery hydroCHLOROthiazide 12.5 mg capsule Do not take the day of surgery levothyroxine (SYNTHROID) 100 mcg tablet Take the day of surgery with a small sip of water losartan (COZAAR) 50 mg tablet Do not take the day of surgery glimepiride (AMARYL) 4 mg tablet Do not take the day of surgery ascorbic acid, vitamin C, (VITAMIN C) 500 mg tablet Stop 7 days before surgery GEMTESA 75 mg tablet Take the day of surgery with a small sip of water pregabalin (LYRICA) 100 mg capsule Take the day of surgery with a small sip of water Cholecalciferol, Vitamin D3, (VITAMIN D-3) 2,000 unit Tab Stop 7 days before surgery If you start any new medications after today's visit, please contact the surgeon's office. Blood Thinning Medications: - Stop NSAIDS (Ibuprofen, Advil, Aleve, Motrin, Celebrex, Mobic, etc.) 7 days before surgery, as directed by your surgeon. - Stop Aspirin 7 days before surgery, as directed by your surgeon. - Stop Vitamin E, ALL multi-vitamins, herbals and dietary supplements 7 days before surgery. - You may take Tylenol (Acetaminophen) or any of your pain medications that do not contain aspirin or NSAIDS as needed. Important Reminders: - Candy, mints, and tobacco products are NOT permitted the morning of surgery. - Hearing aids, dentures and glasses may be worn the morning of surgery. - NO jewelry, body piercings, makeup, hairpins or contacts are to be worn the day of surgery. If you develop symptoms such as a fever, cold, or flu, or have other changes to your health within TWO DAYS of scheduled surgery or the morning of surgery, please contact the surgery center above. Personal Belongings: -Please have photo ID and insurance cards. -If you do not have a copy of advance directives on file with us, please bring a copy with you on the day of surgery. - Leave ALL valuables and money at home or with family members. For Outpatient Procedures: - YOU MUST HAVE A RESPONSIBLE DRY CELL SEALER TAKE YOU HOME. A RECREATION SUPERVISOR OR ACID CHANGER CANNOT BE MADE A RESPONSIBLE DRY CELL SEALER. - We recommend that a responsible person stays with you overnight to take care of you. - You cannot stay in a hotel alone after outpatient surgery. You will not be permitted to have yoursurgery, if you do not have someone to take care of you. Arrival Time for Surgery: - To obtain your arrival time for surgery, call your physician's office the day before your surgery. - If your surgery is scheduled for Sunday, call the Sunday before. Your surgeon s hasher operator will tell you what time to call the office. - If you have not reached the departmental hasher operator by 5 P.M., call [phone] after 5 P.M. the day before your surgery. Please be aware that emergency situations arise, which may delay or change your surgical time. If this happens, we will notify you as soon as possible and regret any inconvenience. If you already have an Advance Directive, please fax a copy to [phone] or email to for it to be added to your chart. If you do not have an Advance Directive, you can find the appropriate form and more information at [email or web address]. We recommend that youcomplete the Advance Directive form found on the website and bring it with you the day of your surgery. It can be witnessed and scanned into your chart that day. Leora Jaeger APRN.LEE ANN [facility] History and physical note * Leora Jaeger APRN.CNP - 06/06/2024 11:20 AM EDT Images from the original note were not included. [facility] HISTORY AND PHYSICAL EXAMINATION SERVICE DATE: 06/06/2024 SERVICE TIME: 12:01 PM PRIMARY CARE PHYSICIAN: Aashish Bahena MD Assessment Patient has the following medical conditions which may affect anali-operative course: Hypertension goal BP (blood pressure) < 140/90 Assessment: controlled on rx Last 14 BP Last 14 Encounter BP Readings: Date: BP: 06/06/2024 132/80 05/21/2024 162/60 04/16/2024 132/68 10/17/2023 136/60 04/03/2023 148/72 10/19/2016 160/70 07/13/2016 124/70 04/05/2016 126/70 12/29/2015 150/80 08/30/2015 120/60 07/07/2015 128/76 07/05/2015 147/79 06/25/2015 122/84 06/10/2015 154/83[#1 (from Extended Vitals)[ PURE HYPERCHOLESTEROLEM Assessment: c/w statin Hiatal hernia Assessment: hx, no surgical intervention Diabetes mellitus type 2, controlled, without complications (HCC) Assessment: controlled on oral agents,new A1c pending Hemoglobin A1C (%) Date Value 03/31/2024 7.0 01/15/2017 7.4 Hypothyroidism Assessment: stable on rx Nontoxic Uninodular Goiter Assessment: s/p thyroidectomy Obesity, Class I, BMI 30-34.9 Assessment: Body mass index is 34.58 kg/m . 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 Clinical Frailty Scale: 3. Well, with treated comorbid disease STOP-Bang Score: Snores loudly Patient over 50 years old Has a large neck Denies feeling tired, fatigued, or sleepy during the daytime Has not been observed to stop breathing or choking/gasping during sleep Denies having high blood pressure BMI less than or equal to 35 kg/m^2 Non-male patient STOP-Bang Score: 3 Malnutrition Screening Tool: Recent weight loss without trying: No Eating poorly due to decreased appetite: No Weight Loss Score: 0 Appetite Score: 0 MST Score: 0 [id number] Score: Hypertension history: Yes Stroke/TIA/thromboembolism history: No Diabetes history: Yes [id number] Score: ARISCAT Score: Age: 51-80 Preoperative SpO2: >=96% Preoperative anemia: Yes Duration of surgery: >3 hrs Emergency procedure: No ARISCAT Score: ANESTHESIA FINDINGS: Intubation History: No history of difficult intubation Significant Anesthesia Considerations: none Airway History: No history of difficult airway I - PHYSICAL EVALUATION AIRWAY Patient intubated: No. Tracheostomy tube not present Mallampati: III. TM distance: >3 FB. Neck ROM: full ROM without neurological symptoms. Mouth opening: adequate. Short neck: no. Thick neck: no Hancock present: no Lip Bite Test: I Microretrognathia/Micronagthia/Recessed Chin: No DENTAL Dental findings: teeth intact. Additional comments: +implant/side. II - ANESTHESIA PLAN Anesthetic Plan: other Beta Kirk Monitoring Plan Post Procedure Analgesic Plan Informed Consent Anesthetic risks, benefits, alternatives, personnel and consent discussed: yes. Patient / Responsible Alliance Party agrees to proceed: yes Patient / Surrogate agrees to blood products: blood products not planned Discussed the possibility of lip / dental damage: yes Prepared for Surgery: optimally prepared for surgery, pending [see comment]. Labs and ekg CONSULTS: Patient does not require consults for optimization at this time Planned Anesthetic: other anesthesia choice The Following Tests/Procedures Have Been Initiated: Orders Placed This Encounter >CBC + AUTO DIFF Standing Status: Future Number of Occurrences: 1 Standing Expiration Date: 09/05/2024 >CMP Standing Status: Future Number of Occurrences: 1 Standing Expiration Date: 09/05/2024 >HGB A1c (Today or soon) Standing Status: Future Number of Occurrences: 1 Standing Expiration Date: 09/05/2024 DISCONTD: mupirocin (BACTROBAN) 2 % ointment Sig: Apply 0.5 inch with cotton swab (Q-tip) to each nostril in the morning and evening for 5 days prior to and including day of surgery. Dispense: 22 g Refill: 0 mupirocin (BACTROBAN) 2 % ointment Sig: Apply 0.5 inch with cotton swab (Q-tip) to each nostril in the morning and evening for 5 days prior to and including day of surgery. Dispense: 22 g Refill: 0 ECG COMPLETE Standing Status: Future Standing Expiration Date: 06/06/2025 REASON FOR VISIT: Leobardo Valdez is a 73 year old female who is scheduled for Procedure(s): REVISION JOINT TOTAL KNEE FEMORAL AND ENTIRE TIBIAL COMPONENT (Left) at the request of Mart Owen MD for consultation. My final recommendation will be communicated back to the requesting physician by way of shared medical record or letter. Subjective The patient has the following: COVID-19 Immunization Status Covid-19 Vaccine (Series Information) Completed 05/28/2024 Imm Admin: COVID-19 vaccine, age 12+ yr (MODERNA) 07/23/2023 Imm Admin: COVID-19 vaccine, age 12+ yr, 2022- season (MODERNA) 06/22/2022 Imm Admin: COVID-19 vaccine, age 12+ yr, bivalent (MODERNA) Only the first 3 history entries have been loaded, but more history exists. CHIEF COMPLAINT: Pre-op exam HPI: Leobardo Valdez is a 73 year old seen for PAC due to scheduled above surgery because h/o left TKA. 05/21/2024, Urban Horton MD HPI: Leobardo Valdez is a(n) 73 year old female that presents today for the evaluation of gastrocnemias flap. She reports she had a total knee replacement in 2013. She reports she was unable to bend her knee completely following surgery. She reports a total of 4 surgeries on her left knee and her last surgery was 2013. Patient scheduled for surgery on 06/19/24 for a revision join total left knee and entire tibial component with Dr Enciso in orthopedics. He consulted plastic surgery for a muscle flap. 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 Neurological: No history of TIA's, stroke, SHOE STITCHER tumor, impaired sensorium, hemiplegia, paraplegia orquadraplegia. No neurological symptoms or problems. Respiratory: No history of current cough or dyspnea, or pneumonia in the past 6 weeks. No history of respiratory/pulmonary symptoms or problems. Cardiovascular: Positive for: DVT/PE, hyperlipidemia (on rx) and hypertension (on rx) Negative for: abdominal aortic aneurysm, AICD/PPM, angina, anticoagulation therapy, arrhythmia, atrial fibrillation, CAD, chest pain, CHF, congenital heart defect, recent [place], murmur/valvular heart disease, PTCA, PVD, open heart surgery and valve surgery. GI: Positive for: GERD (on rx) Negative for: abdominal pain, dysphagia, hepatitis, irritable bowel syndrome, inflammatory bowel disease, liver disease, nausea, pancreatitis, vomiting and ETOH >2 drinks/day. : No history of dysuria, frequency or incontinence, stones or chronic kidney disease. No difficulty urinating, nocturia > 1 time per night or hematuria. AUDITOR/QUALITY: Negative for abnormal vaginal bleeding, abnormal vaginal discharge. Endocrine: Positive for: diabetes mellitus and hypothyroidism (on rx). Patient's diabetes mellitus is controlled by oral agents. Hematology: No history of bleeding or clotting disorder. Patient is not taking anti-coagulation or platelet medications. No history of hematological symptoms or problems. Oncology: No history of CA metastasis, chemo within 30 days, or radiotherapy within 90 days. No history of oncological symptoms or problems. Psych: No history of psychiatric symptoms or problems. Musculoskeletal: See HPI. +right TKA Skin: Negative for lesions, rash and itching. PAST MEDICAL HISTORY Diagnosis Date Calculus of gallbladder without mention of cholecystitis or obstruction 05/16/2005 DIABETES MELLITUS TYPE II-UNCOMPL 05/16/2005 Diarrhea Esophageal reflux 05/16/2005 HYPERTENSION NOS 05/16/2005 HYPOTHYROIDISM NOS 05/16/2005 Internal hemorrhoids without mention of complication PAST SURGICAL HISTORY Procedure Laterality Date APPENDECTOMY 09/12/1996 ARTHRP KNE CONDYLE&PLATU MEDIAL&LAT COMPARTMENTS Left 10/22/2013 Knee replacement, total CHOLECYSTECTOMY 10/25/1999 Cholecystectomy COLONOSCOPY W/BIOPSY SINGLE/MULTIPLE 06/15/2010 DILATION & CURETTAGE DX&/THER NONOBSTETRIC , 11/05/1981 Dilation & curettage INCISION & DRAINAGE ABSCESS SIMPLE/SINGLE 09/02/2007 I&D Bartholins PAST SURGICAL HISTORY OF Left 09/22/2014 Revision left TKA PAST SURGICAL HISTORY OF Left 10/09/2014 Knee flap left TKA RPR UMBILICAL HRNA 5 YRS/> REDUCIBLE 04/21/1997 Hernia repair, umbilical >5yr SIGMOIDOSCOPY FLX DX W/COLLJ SPEC BR/WA IF PFRMD 07/14/1986 Sigmoidoscopy, anal fistulectomy THYROIDECTOMY TOTAL/COMPLETE 03/24/2009 TOTAL TOTAL KNEE REPLACEMENT Right 2022 VAGINAL HYSTERECTOMY UTERUS 250 GM/< 01/27/2003 Hysterectomy, vaginal, left oophorectomy FAMILY HISTORY Problem Relation Age of Onset GI Mother Alzheimer's Disease Mother Heart Father Thyroid Sister Dementia Sister diagnosed 2022 Social History Tobacco Use Smoking status: Never Smokeless tobacco: Never Vaping Use Vaping status: Never Used Substance Use Topics Alcohol use: Yes Comment: Rarely Drug use: No Prior to Admission medications as of 06/06/24 1146 Medication Sig Last Dose Taking losartan-hydroCHLOROthiazide (HYZAAR) 50-12.5 mg per tablet Take by mouth. Taking Yes metFORMIN ER (GLUCOPHAGE XR) 500 mg 24 hr tablet Take 2 tablets by mouth two times a day. Patient should start on June 21, 2024. Taking Yes atorvastatin (LIPITOR) 10 mg tablet Take 0.5 tablets by mouth every other day. For cholesterol. Taking Yes iron polysaccharide complex (NU-IRON) 150 mg iron capsule Take 1 capsule by mouth once daily. Taking Yes cyanocobalamin (VITAMIN B-12) 1,000 mcg tab Take 1 tablet by mouth once daily. Taking Yes nystatin (MYCOSTATIN) cream Apply to affected area two times a day. Taking Yes oxyCODONE-acetaminophen (PERCOCET) 5-325 mg tablet as needed. Taking Yes FARXIGA 10 mg tablet Take 1 tablet by mouth once daily. Taking Yes folic acid 1 mg tablet Take 1 tablet by mouth once daily. Taking Yes hydroCHLOROthiazide 12.5 mg capsule Take 1 capsule by mouth once daily. Taking Yes levothyroxine (SYNTHROID) 100 mcg tablet Take 1 tablet by mouth once daily. Take one tab daily Taking Yes losartan (COZAAR) 50 mg tablet Take 1 tablet by mouth once daily. Taking Yes glimepiride (AMARYL) 4 mg tablet Take 1 tablet by mouth two times a day. Taking Yes ascorbic acid, vitamin C, (VITAMIN C) 500 mg tablet Take 500 mg by mouth once daily. Taking Yes GEMTESA 75 mg tablet Take 1 tablet by mouth once daily. Taking Yes pregabalin (LYRICA) 100 mg capsule Take 100 mg by mouth three times daily. Taking Yes Cholecalciferol, Vitamin D3, (VITAMIN D-3) 2,000 unit Tab Take 1 tablet by mouth once daily. TakingYes mupirocin (BACTROBAN) 2 % ointment Apply 0.5 inch with cotton swab (Q-tip) to each nostril in the morning and evening for 5 days prior to and including day of surgery. Medication Comments documented by Galina Choi MD on 11/12/2014 at 1136. ALLERGIES Allergen Reactions Latex Other: See Comments Adhesive Tape (Brandee* Other: See Comments Blisters on skin Iodine passed out hives Levofloxacin Vomiting Mental status change, nausea vomiting Shellfish Derived GI Upset Soft shell seafoods. Once passed out. Avoids seafood with shells (including shrimp and crab). Zocor [Simvastatin] Myalgia Objective PHYSICAL EXAM: General: alert and oriented (x3), healthy appearance and obese. Pertinent negatives noted - not distressed. Skin: normal color, no rash or lesions. HEENT: EOM intact and pupils equal round. Pertinent negatives noted - no carotid bruit. Cardiovascular: regular rate and rhythm, normal S1 and S2, no rub, murmurs, or gallop. Respiratory: normal breath sounds, no wheezes or crackles. No chest wall deformity or tenderness. Abdomen: soft. Pertinent negatives noted - not tender. Extremities: no deformity, no edema or tenderness, no joint swelling or clubbing. Neurological: normal cognition and motor skills. Gait normal. No weakness or sensory deficit. PAIN ASSESSMENT: Pain Pain Level: 5 Pain Location: Knee-Left Description: Sharp, Throbbing Duration Units: Years Frequency: Continuous Intervention/Comfort measure: Medication VITALS: BP 132/80 Pulse 79 Temp (Src) 97.1 (Temporal) Resp 16 Ht 5' 1.5 (1.56m) Wt 186 lb (84.4kg) SpO2 97% BMI 34.58 kg/(m^2). Diagnostic tests reviewed for today's visit: Lab Value Units Date High Low HB 13.6 g/dL 06/06/2024 15.5 11.5 HCT 40.8 % 06/06/2024 46.0 36.0 WBC 9.03 k/uL 06/06/2024 11.00 3.70 PLT 347 k/uL 06/06/2024 400 150 NA 138 mmol/L 03/31/2024 144 136 K 3.9 mmol/L 03/31/2024 5.1 3.7 GLUC 226 mg/dL 03/31/2024 99 74 BUN 15 mg/dL 03/31/2024 21 7 CREAT 0.83 mg/dL 03/31/2024 0.96 0.58 PTSEC No results within date range. INR No results within date range. APTT No results within date range. ALT 18 U/L 03/31/2024 38 7 AST 19 U/L 03/31/2024 35 13 TBILI 0.3 mg/dL 03/31/2024 1.3 0.2 TSH 0.144 mIU/L 03/31/2024 4.200 0.270 Lab Value Units Date High Low HCGQT No results within date range. UHCG No results within date range. HCG, BODY* No results within date range. Lab Value Units Date High Low ABORHD No results within date range. ABSCREEN No results within date range. Hemoglobin A1C (%) Date Value 03/31/2024 7.0 10/17/2023 7.2 04/05/2023 6.8 01/15/2017 7.4 10/16/2016 7.4 07/11/2016 9.7 03/30/2016 9.1 12/23/2015 8.2 Recent Results (from the past 8760 hour(s)) ECG COMPLETE Collection Time: 06/06/24 11:33 AM Result Value Ventricular Rate 75 Atrial Rate 75 P-R Interval 164 QRS Duration 64 QT Interval 366 QTC Calculation (Bazett) 408 Calculated P Ralston -2 Calculated R Ralston 16 Calculated T Ralston 58 Impression NORMAL SINUS RHYTHM NORMAL ECG No results found for this or any previous visit (from the past 22521 hour(s)). Instructions Given to Patient: Instructions located in the after visit summary. Patient given verbal and written preop instructions and voices comprehension and compliance. SIGNATURE: Leora Jaeger APRN.CNP PATIENT NAME: Leobardo Valdez DATE: June 06, 2024 TIME: 11:20 AM PAGER/CONTACT #: [facility] History and physical note* Leora Jaeger APRN.CNP - 06/06/2024 11:20 AM EDT Images from the original note were not included. [facility] HISTORY AND PHYSICAL EXAMINATION SERVICE DATE: 06/06/2024 SERVICE TIME: 12:01 PM PRIMARY CARE PHYSICIAN: Aashish Bahena MD Assessment Patient has the following medical conditions which may affect anali-operative course: Hypertension goal BP (blood pressure) < 140/90 Assessment: controlled on rx Last 14 BP Last 14 Encounter BP Readings: Date: BP: 06/06/2024 132/80 05/21/2024 162/60 04/16/2024 132/68 10/17/2023 136/60 04/03/2023 148/72 10/19/2016 160/70 07/13/2016 124/70 04/05/2016 126/70 12/29/2015 150/80 08/30/2015 120/60 07/07/2015 128/76 07/05/2015 147/79 06/25/2015 122/84 06/10/2015 154/83[#1 (from Extended Vitals)[ PURE HYPERCHOLESTEROLEM Assessment: c/w statin Hiatal hernia Assessment: hx, no surgical intervention Diabetes mellitus type 2, controlled, without complications (HCC) Assessment: controlled on oral agents,new A1c pending Hemoglobin A1C (%) Date Value 03/31/2024 7.0 01/15/2017 7.4 Hypothyroidism Assessment: stable on rx Nontoxic Uninodular Goiter Assessment: s/p thyroidectomy Obesity, Class I, BMI 30-34.9 Assessment: Body mass index is 34.58 kg/m . 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 Clinical Frailty Scale: 3. Well, with treated comorbid disease STOP-Bang Score: Snores loudly Patient over 50 years old Has a large neck Denies feeling tired, fatigued, or sleepy during the daytime Has not been observed to stop breathing or choking/gasping during sleep Denies having high blood pressure BMI less than or equal to 35 kg/m^2 Non-male patient STOP-Bang Score: 3 Malnutrition Screening Tool: Recent weight loss without trying: No Eating poorly due to decreased appetite: No Weight Loss Score: 0 Appetite Score: 0 MST Score: 0 [id number] Score: Hypertension history: Yes Stroke/TIA/thromboembolism history: No Diabetes history: Yes [id number] Score: ARISCAT Score: Age: 51-80 Preoperative SpO2: >=96% Preoperative anemia: Yes Duration of surgery: >3 hrs Emergency procedure: No ARISCAT Score: ANESTHESIA FINDINGS: Intubation History: No history of difficult intubation Significant Anesthesia Considerations: none Airway History: No history of difficult airway I - PHYSICAL EVALUATION AIRWAY Patient intubated: No. Tracheostomy tube not present Mallampati: III. TM distance: >3 FB. Neck ROM: full ROM without neurological symptoms. Mouth opening: adequate. Short neck: no. Thick neck: no Hancock present: no Lip Bite Test: I Microretrognathia/Micronagthia/Recessed Chin: No DENTAL Dental findings: teeth intact. Additional comments: +implant/side. II - ANESTHESIA PLAN Anesthetic Plan: other Beta Kirk Monitoring Plan Post Procedure Analgesic Plan Informed Consent Anesthetic risks, benefits, alternatives, personnel and consent discussed: yes. Patient / Responsible Alliance Party agrees to proceed: yes Patient / Surrogate agrees to blood products: blood products not planned Discussed the possibility of lip / dental damage: yes Prepared for Surgery: optimally prepared for surgery, pending [see comment]. Labs and ekg CONSULTS: Patient does not require consults for optimization at this time Planned Anesthetic: other anesthesia choice The Following Tests/Procedures Have Been Initiated: Orders Placed This Encounter >CBC + AUTO DIFF Standing Status: Future Number of Occurrences: 1 Standing Expiration Date: 09/05/2024 >CMP Standing Status: Future Number of Occurrences: 1 Standing Expiration Date: 09/05/2024 >HGB A1c (Today or soon) Standing Status: Future Number of Occurrences: 1 Standing Expiration Date: 09/05/2024 DISCONTD: mupirocin (BACTROBAN) 2 % ointment Sig: Apply 0.5 inch with cotton swab (Q-tip) to each nostril in the morning and evening for 5 days prior to and including day of surgery. Dispense: 22 g Refill: 0 mupirocin (BACTROBAN) 2 % ointment Sig: Apply 0.5 inch with cotton swab (Q-tip) to each nostril in the morning and evening for 5 days prior to and including day of surgery. Dispense: 22 g Refill: 0 ECG COMPLETE Standing Status: Future Standing Expiration Date: 06/06/2025 REASON FOR VISIT: Leobardo Valdez is a 73 year old female who is scheduled for Procedure(s): REVISION JOINT TOTAL KNEE FEMORAL AND ENTIRE TIBIAL COMPONENT (Left) at the request of Mart Owen MD for consultation. My final recommendation will be communicated back to the requesting physician by way of shared medical record or letter. Subjective The patient has the following: COVID-19 Immunization Status Covid-19 Vaccine (Series Information) Completed 05/28/2024 Imm Admin: COVID-19 vaccine, age 12+ yr (MODERNA) 07/23/2023 Imm Admin: COVID-19 vaccine, age 12+ yr, 2022- season (MODERNA) 06/22/2022 Imm Admin: COVID-19 vaccine, age 12+ yr, bivalent (MODERNA) Only the first 3 history entries have been loaded, but more history exists. CHIEF COMPLAINT: Pre-op exam HPI: Leobardo Valdez is a 73 year old seen for PAC due to scheduled above surgery because h/o left TKA. 05/21/2024, Urban Horton MD HPI: Leobardo Valdez is a(n) 73 year old female that presents today for the evaluation of gastrocnemias flap. She reports she had a total knee replacement in 2013. She reports she was unable to bend her knee completely following surgery. She reports a total of 4 surgeries on her left knee and her last surgery was 2013. Patient scheduled for surgery on 06/19/24 for a revision join total left knee and entire tibial component with Dr Enciso in orthopedics. He consulted plastic surgery for a muscle flap. 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 Neurological: No history of TIA's, stroke, SHOE STITCHER tumor, impaired sensorium, hemiplegia, paraplegia orquadraplegia. No neurological symptoms or problems. Respiratory: No history of current cough or dyspnea, or pneumonia in the past 6 weeks. No history of respiratory/pulmonary symptoms or problems. Cardiovascular: Positive for: DVT/PE, hyperlipidemia (on rx) and hypertension (on rx) Negative for: abdominal aortic aneurysm, AICD/PPM, angina, anticoagulation therapy, arrhythmia, atrial fibrillation, CAD, chest pain, CHF, congenital heart defect, recent [place], murmur/valvular heart disease, PTCA, PVD, open heart surgery and valve surgery. GI: Positive for: GERD (on rx) Negative for: abdominal pain, dysphagia, hepatitis, irritable bowel syndrome, inflammatory bowel disease, liver disease, nausea, pancreatitis, vomiting and ETOH >2 drinks/day. : No history of dysuria, frequency or incontinence, stones or chronic kidney disease. No difficulty urinating, nocturia > 1 time per night or hematuria. AUDITOR/QUALITY: Negative for abnormal vaginal bleeding, abnormal vaginal discharge. Endocrine: Positive for: diabetes mellitus and hypothyroidism (on rx). Patient's diabetes mellitus is controlled by oral agents. Hematology: No history of bleeding or clotting disorder. Patient is not taking anti-coagulation or platelet medications. No history of hematological symptoms or problems. Oncology: No history of CA metastasis, chemo within 30 days, or radiotherapy within 90 days. No history of oncological symptoms or problems. Psych: No history of psychiatric symptoms or problems. Musculoskeletal: See HPI. +right TKA Skin: Negative for lesions, rash and itching. PAST MEDICAL HISTORY Diagnosis Date Calculus of gallbladder without mention of cholecystitis or obstruction 05/16/2005 DIABETES MELLITUS TYPE II-UNCOMPL 05/16/2005 Diarrhea Esophageal reflux 05/16/2005 HYPERTENSION NOS 05/16/2005 HYPOTHYROIDISM NOS 05/16/2005 Internal hemorrhoids without mention of complication PAST SURGICAL HISTORY Procedure Laterality Date APPENDECTOMY 09/12/1996 ARTHRP KNE CONDYLE&PLATU MEDIAL&LAT COMPARTMENTS Left 10/22/2013 Knee replacement, total CHOLECYSTECTOMY 10/25/1999 Cholecystectomy COLONOSCOPY W/BIOPSY SINGLE/MULTIPLE 06/15/2010 DILATION & CURETTAGE DX&/THER NONOBSTETRIC , 11/05/1981 Dilation & curettage INCISION & DRAINAGE ABSCESS SIMPLE/SINGLE 09/02/2007 I&D Bartholins PAST SURGICAL HISTORY OF Left 09/22/2014 Revision left TKA PAST SURGICAL HISTORY OF Left 10/09/2014 Knee flap left TKA RPR UMBILICAL HRNA 5 YRS/> REDUCIBLE 04/21/1997 Hernia repair, umbilical >5yr SIGMOIDOSCOPY FLX DX W/COLLJ SPEC BR/WA IF PFRMD 07/14/1986 Sigmoidoscopy, anal fistulectomy THYROIDECTOMY TOTAL/COMPLETE 03/24/2009 TOTAL TOTAL KNEE REPLACEMENT Right 2022 VAGINAL HYSTERECTOMY UTERUS 250 GM/< 01/27/2003 Hysterectomy, vaginal, left oophorectomy FAMILY HISTORY Problem Relation Age of Onset GI Mother Alzheimer's Disease Mother Heart Father Thyroid Sister Dementia Sister diagnosed 2022 Social History Tobacco Use Smoking status: Never Smokeless tobacco: Never Vaping Use Vaping status: Never Used Substance Use Topics Alcohol use: Yes Comment: Rarely Drug use: No Prior to Admission medications as of 06/06/24 1146 Medication Sig Last Dose Taking losartan-hydroCHLOROthiazide (HYZAAR) 50-12.5 mg per tablet Take by mouth. Taking Yes metFORMIN ER (GLUCOPHAGE XR) 500 mg 24 hr tablet Take 2 tablets by mouth two times a day. Patient should start on June 21, 2024. Taking Yes atorvastatin (LIPITOR) 10 mg tablet Take 0.5 tablets by mouth every other day. For cholesterol. Taking Yes iron polysaccharide complex (NU-IRON) 150 mg iron capsule Take 1 capsule by mouth once daily. Taking Yes cyanocobalamin (VITAMIN B-12) 1,000 mcg tab Take 1 tablet by mouth once daily. Taking Yes nystatin (MYCOSTATIN) cream Apply to affected area two times a day. Taking Yes oxyCODONE-acetaminophen (PERCOCET) 5-325 mg tablet as needed. Taking Yes FARXIGA 10 mg tablet Take 1 tablet by mouth once daily. Taking Yes folic acid 1 mg tablet Take 1 tablet by mouth once daily. Taking Yes hydroCHLOROthiazide 12.5 mg capsule Take 1 capsule by mouth once daily. Taking Yes levothyroxine (SYNTHROID) 100 mcg tablet Take 1 tablet by mouth once daily. Take one tab daily Taking Yes losartan (COZAAR) 50 mg tablet Take 1 tablet by mouth once daily. Taking Yes glimepiride (AMARYL) 4 mg tablet Take 1 tablet by mouth two times a day. Taking Yes ascorbic acid, vitamin C, (VITAMIN C) 500 mg tablet Take 500 mg by mouth once daily. Taking Yes GEMTESA 75 mg tablet Take 1 tablet by mouth once daily. Taking Yes pregabalin (LYRICA) 100 mg capsule Take 100 mg by mouth three times daily. Taking Yes Cholecalciferol, Vitamin D3, (VITAMIN D-3) 2,000 unit Tab Take 1 tablet by mouth once daily. TakingYes mupirocin (BACTROBAN) 2 % ointment Apply 0.5 inch with cotton swab (Q-tip) to each nostril in the morning and evening for 5 days prior to and including day of surgery. Medication Comments documented by Galina Choi MD on 11/12/2014 at 1136. ALLERGIES Allergen Reactions Latex Other: See Comments Adhesive Tape (Brandee* Other: See Comments Blisters on skin Iodine passed out hives Levofloxacin Vomiting Mental status change, nausea vomiting Shellfish Derived GI Upset Soft shell seafoods. Once passed out. Avoids seafood with shells (including shrimp and crab). Zocor [Simvastatin] Myalgia Objective PHYSICAL EXAM: General: alert and oriented (x3), healthy appearance and obese. Pertinent negatives noted - not distressed. Skin: normal color, no rash or lesions. HEENT: EOM intact and pupils equal round. Pertinent negatives noted - no carotid bruit. Cardiovascular: regular rate and rhythm, normal S1 and S2, no rub, murmurs, or gallop. Respiratory: normal breath sounds, no wheezes or crackles. No chest wall deformity or tenderness. Abdomen: soft. Pertinent negatives noted - not tender. Extremities: no deformity, no edema or tenderness, no joint swelling or clubbing. Neurological: normal cognition and motor skills. Gait normal. No weakness or sensory deficit. PAIN ASSESSMENT: Pain Pain Level: 5 Pain Location: Knee-Left Description: Sharp, Throbbing Duration Units: Years Frequency: Continuous Intervention/Comfort measure: Medication VITALS: BP 132/80 Pulse 79 Temp (Src) 97.1 (Temporal) Resp 16 Ht 5' 1.5 (1.56m) Wt 186 lb (84.4kg) SpO2 97% BMI 34.58 kg/(m^2). Diagnostic tests reviewed for today's visit: Lab Value Units Date High Low HB 13.6 g/dL 06/06/2024 15.5 11.5 HCT 40.8 % 06/06/2024 46.0 36.0 WBC 9.03 k/uL 06/06/2024 11.00 3.70 PLT 347 k/uL 06/06/2024 400 150 NA 138 mmol/L 03/31/2024 144 136 K 3.9 mmol/L 03/31/2024 5.1 3.7 GLUC 226 mg/dL 03/31/2024 99 74 BUN 15 mg/dL 03/31/2024 21 7 CREAT 0.83 mg/dL 03/31/2024 0.96 0.58 PTSEC No results within date range. INR No results within date range. APTT No results within date range. ALT 18 U/L 03/31/2024 38 7 AST 19 U/L 03/31/2024 35 13 TBILI 0.3 mg/dL 03/31/2024 1.3 0.2 TSH 0.144 mIU/L 03/31/2024 4.200 0.270 Lab Value Units Date High Low HCGQT No results within date range. UHCG No results within date range. HCG, BODY* No results within date range. Lab Value Units Date High Low ABORHD No results within date range. ABSCREEN No results within date range. Hemoglobin A1C (%) Date Value 03/31/2024 7.0 10/17/2023 7.2 04/05/2023 6.8 01/15/2017 7.4 10/16/2016 7.4 07/11/2016 9.7 03/30/2016 9.1 12/23/2015 8.2 Recent Results (from the past 8760 hour(s)) ECG COMPLETE Collection Time: 06/06/24 11:33 AM Result Value Ventricular Rate 75 Atrial Rate 75 P-R Interval 164 QRS Duration 64 QT Interval 366 QTC Calculation (Bazett) 408 Calculated P Ralston -2 Calculated R Ralston 16 Calculated T R[place]ston 58 Impression NORMAL SINUS RHYTHM NORMAL ECG No results found for this or any previous visit (from the past 54090 hour(s)). Instructions Given to Patient: Instructions located in the after visit summary. Patient given verbal and written preop instructions and voices comprehension and compliance. SIGNATURE: Leora Jaeger APRN.CNP PATIENT NAME: Leobardo Valdez DATE: June 06, 2024 TIME: 11:20 AM PAGER/CONTACT #: documented in this encounterTrihealth [facility]-28-[facility] History of Present illness Narrative* Urban Horton MD - 05/21/2024 11:30 AM EDT Images from the original note were not included. Plastic Surgery DATE: May 21, 2024 REFERRING PROVIDER: Mart Enciso MD Report sent to requesting provider via shared medical record or [facility] CC: ([id number]) History of total left knee replacement (primary encounter diagnosis) HPI: Leobardo Valdez is a(n) 73 year old female that presents today for the evaluation of gastrocnemias flap. She reports she had a total knee replacement in 2013. She reports she was unable to bend her knee completely following surgery. She reports a total of 4 surgeries on her left knee and her last surgery was 2013. Patient scheduled for surgery on 06/19/24 for a revision join total left knee and entire tibial component with Dr Enciso in orthopedics. He consulted plastic surgery for a muscle flap. 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 HEMATOLOGIC/LYMPHATIC/IMMUNOLOGIC: Negative for prolonged bleeding, bruising easily, and swollen nodes. PAIN: is 7 out of 10, she takes oxycodone as needed which helps with the pain PMH: PAST MEDICAL HISTORY 05/16/2005: Calculus of gallbladder without mention of cholecystitis or obstruction 05/16/2005: DIABETES MELLITUS TYPE II-UNCOMPL No date: Diarrhea 05/16/2005: Esophageal reflux 05/16/2005: HYPERTENSION NOS 05/16/2005: HYPOTHYROIDISM NOS No date: Internal hemorrhoids without mention of complication PSH: PAST SURGICAL HISTORY 09/12/1996: APPENDECTOMY 10/22/2013: ARTHRP KNE CONDYLE&PLATU MEDIAL&LAT COMPARTMENTS; Left Comment: Knee replacement, total 10/25/1999: CHOLECYSTECTOMY Comment: Cholecystectomy 06/15/2010: COLONOSCOPY W/BIOPSY SINGLE/MULTIPLE , 11/05/1981: DILATION & CURETTAGE DX&/THER NONOBSTETRIC Comment: Dilation & curettage 09/02/2007: INCISION & DRAINAGE ABSCESS SIMPLE/SINGLE Comment: I&D Bartholins 09/22/2014: PAST SURGICAL HISTORY OF; Left Comment: Revision left TKA 10/09/2014: PAST SURGICAL HISTORY OF; Left Comment: Knee flap left TKA 04/21/1997: RPR UMBILICAL HRNA 5 YRS/> REDUCIBLE Comment: Hernia repair, umbilical >5yr 07/14/1986: SIGMOIDOSCOPY FLX DX W/COLLJ SPEC BR/WA IF PFRMD Comment: Sigmoidoscopy, anal fistulectomy 03/24/2009: THYROIDECTOMY TOTAL/COMPLETE Comment: TOTAL 2022: TOTAL KNEE REPLACEMENT; Right 01/27/2003: VAGINAL HYSTERECTOMY UTERUS 250 GM/< Comment: Hysterectomy, vaginal, left oophorectomy SOC: Social History Tobacco Use Smoking status: Never Smokeless tobacco: Never Substance Use Topics Alcohol use: Yes Comment: Rarely Drug use: No MEDICATIONS: Current Outpatient Medications Medication Sig Dispense Refill [START ON 06/21/2024] metFORMIN ER (GLUCOPHAGE XR) 500 mg 24 hr tablet Take 2 tablets by mouth two times a day. Patient should start on June 21, 2024. 360 tablet 3 atorvastatin (LIPITOR) 10 mg tablet Take 0.5 tablets by mouth every other day. For cholesterol. 45 tablet 1 clotrimazole-betamethasone (LOTRISONE) cream Apply to affected area two times a day. 45 g 3 iron polysaccharide complex (NU-IRON) 150 mg iron capsule Take 1 capsule by mouth once daily. 90 capsule 3 cyanocobalamin (VITAMIN B-12) 1,000 mcg tab Take 1 tablet by mouth once daily. 90 tablet 3 nystatin (MYCOSTATIN) cream Apply to affected area two times a day. 30 g 2 oxyCODONE-acetaminophen (PERCOCET) 5-325 mg tablet as needed. FARXIGA 10 mg tablet Take 1 tablet by mouth once daily. 90 tablet 3 folic acid 1 mg tablet Take 1 tablet by mouth once daily. 90 tablet 3 hydroCHLOROthiazide 12.5 mg capsule Take 1 capsule by mouth once daily. 90 capsule 3 levothyroxine (SYNTHROID) 100 mcg tablet Take 1 tablet by mouth once daily. Take one tab daily 90 tablet 3 losartan (COZAAR) 50 mg tablet Take 1 tablet by mouth once daily. 90 tablet 3 glimepiride (AMARYL) 4 mg tablet Take 1 tablet by mouth two times a day. 180 tablet 3 ascorbic acid, vitamin C, (VITAMIN C) 500 mg tablet Take 500 mg by mouth once daily. GEMTESA 75 mg tablet Take 1 tablet by mouth once daily. pregabalin (LYRICA) 100 mg capsule Take 100 mg by mouth three times daily. Cholecalciferol, Vitamin D3, (VITAMIN D-3) 2,000 unit Tab Take 1 tablet by mouth once daily. No current facility-administered medications for this visit. EXAM: BP 162/60 Pulse (!) 58 Ht 154.9 cm (5' 1) Wt 83 kg (183 lb) BMI 34.58 kg/m GENERAL: Patient is a well-nourished , appearing stated age, resting comfortably, breathing regularly. No acute distress. Skin: Skin color, texture, turgor normal. Left knee scarring located on the medial and lateral sides of her knee ASSESSMENT: Leobardo Valdez is a(n) 73 year old female that presents today for the evaluation of left knee muscleflap. PLAN: Optimize nutritional intake Surgical plan for a combination case with orthopedic surgery for left revision total joint replacement and elevation of left lateral gastrocnemias flap Will coordinate with Orthopedic surgery Follow up at the time of surgery Scribe Attestation: By signing my name below, I, Shannon Puente, RN, attest that this documentation has been prepared under the direction and in the presence of Urban Horton MD Attending Note I have personally performed a face to face assessment of the patient and have reviewed the RN's note. I agree with the Chief Complaint, ROS, and Past Histories independently gathered by the clinical it support consultant and the remaining scribed note accurately describes my personal service to the patient. This is a 73-year-old female s/p left knee arthroplasty in 2014 complicated by infection and lateral gastrocnemius flap at an outside hospital. Dr Enciso is planning to revise her left knee and has seeked our assistance for elevation of the previous muscle flap. Patient was counseled on perioperative routine and surgical plan, and I reviewed the risks, benefits, complications, and need for further surgery. All questions raised were answered to satisfaction. Total time spent caring for the patient today was 45 minutes- this included time spent for preparing to see the patient (reviewing previous notes, labs, imaging, etc), obtaining and/or reviewing separately obtained history, performing a medically appropriate face to face patient examination and evaluation, counseling and education of the patient/family/caregiver, ordering medications, labs, or procedures, referring and communicating with other health director long term care, documenting clinical information in the electronic health record and coordinating care SIGNATURE: Urban Horton MD DATE: May 22, 2024 TIME: 8:37 AM documented in this encounterTrihealth [facility]08-28-2024 [facility] Tele[facility] encounter Note* Telephone Encounter - Estela Wesley LPN - 05/12/2024 12:39 PM EDT Patient has been identified by name and date of : Yes Patient phones for refill(s): Requested Prescriptions Pending Prescriptions Disp Refills metFORMIN ER (GLUCOPHAGE XR) 500 mg 24 hr tablet 360 tablet 3 Sig: Take 2 tablets by mouth two times a day. Patient should start on June 21, 2024. Date of last office visit in primary care: 04/16/2024 Date of next office visit in primary care: 10/17/2024 Please advise. Thank you. Estela Wesley LPN. [facility]08-19-2024 Miscellaneous Notes* Telephone Encounter - Estela Wesley LPN - 05/12/2024 12:39 PM EDT Patient has been identified by name and date of : Yes Patient phones for refill(s): Requested Prescriptions Pending Prescriptions Disp Refills metFORMIN ER (GLUCOPHAGE XR) 500 mg 24 hr tablet 360 tablet 3 Sig: Take 2 tablets by mouth two times a day. Patient should start on June 21, 2024. Date of last office visit in primary care: 04/16/2024 Date of next office visit in primary care: 10/17/2024 Please advise. Thank you. Estela Wesley LPN. documented in this encounterTrihealth [facility]08-16-2024 Note* Addendum Note - Fabio Santiago MA - 05/09/2024 1:54 PM EDTAddended by: FABIO SANTIAGO on: 05/09/2024 01:54 PM Modules accepted: Orders [facility]08-16-2024 Miscellaneous Notes* Addendum Note - Fabio Santiago MA - 05/09/2024 1:54 PM EDTAddended by: FABIO SANTIAGO on: 05/09/2024 01:54 PM Modules accepted: Orders * Telephone Encounter - Fabio Santiago MA - 05/09/2024 1:53 PM EDT Requesting this be resent - pharmacy advised this was cancelled. documented in this encounterTrihealth [facility]08-16-2024 Telephone encounter Note * Telephone Encounter - Fabio Santiago MA - 05/09/2024 1:53 PM EDT Requesting this be resent - pharmacy advised this was cancelled. [facility]08-12-2024 Telephone encounter Note* Telephone Encounter - Flora Abraham MA - 05/05/2024 3:22 PM EDT Medication dispense report shows medication has been sent to patient. [facility]08-12-2024 Miscellaneous Notes* Telephone Encounter - Flora Abraham MA - 05/05/2024 3:22 PM EDT Medication dispense report shows medication has been sent to patient. documented in this encounterTrihealth [facility]08-07-2024 Telephone encounter Note * Telephone Encounter - Aashish Bahena MD - 04/30/2024 7:03 PM EDT The following approved medication requests have been transmitted electronically. Requested Prescriptions Signed Prescriptions Disp Refills atorvastatin (LIPITOR) 10 mg tablet 45 tablet 1 Sig: Take 0.5 tablets by mouth every other day. For cholesterol. Authorizing Provider: AASHISH BAHENA MD [facility]08-07-2024 Miscellaneous Notes* Telephone Encounter - Aashish Bahena MD - 04/30/2024 7:03 PM EDT The following approved medication requests have been transmitted electronically. Requested Prescriptions Signed Prescriptions Disp Refills atorvastatin (LIPITOR) 10 mg tablet 45 tablet 1 Sig: Take 0.5 tablets by mouth every other day. For cholesterol. Authorizing Provider: AASHISH BAHENA MD * Telephone Encounter - Estela Wesley LPN - 04/30/2024 10:58 AM EDT Patient asking for RX to go to [facility]. Patient has been identified by name and date of : Yes Patient phones for refill(s): Requested Prescriptions Pending Prescriptions Disp Refills atorvastatin (LIPITOR) 10 mg tablet 45 tablet 1 Sig: Take 0.5 tablets by mouth every other day. For cholesterol. Date of last office visit in primary care: 04/16/2024 Date of next office visit in primary care: 10/17/2024 Please advise. Thank you. Estela Wesley LPN. documented in this encounterTrihealth [facility]08-07-2024 Telephone encounter Note * Telephone Encounter - Estela Wesley LPN - 04/30/2024 10:58 AM EDT Patient asking for RX to go to [facility]. Patient has been identified by name and date of : Yes Patient phones for refill(s): Requested Prescriptions Pending Prescriptions Disp Refills atorvastatin (LIPITOR) 10 mg tablet 45 tablet 1 Sig: Take 0.5 tablets by mouth every other day. For cholesterol. Date of last office visit in primary care: 04/16/2024 Date of next office visit in primary care: 10/17/2024 Please advise. Thank you. Estela Wesley LPN. [facility]08-05-2024 Telephone encounter Note* Telephone Encounter - Kira Adams LPN - 04/28/2024 11:20 AM EDT Prescription Refill Information The patient has been identified by name and date of : Yes Caregiver verified no other encounters exist for this prescription request: Yes Caregiver confirmed with patient/requestor that no other refills are due, in the near future, with this provider at this time: Yes The last office visit in the department: 04/16/24 Does the patient have a future office visit with this provider/department: Yes 10/17/24 Requested Prescriptions Pending Prescriptions Disp Refills atorvastatin (LIPITOR) 10 mg tablet Sig: Take 0.5 tablets by mouth every other day. For cholesterol. Kira Adams LPN April 28, 2024 11:21 AM [facility]08-05-2024 Miscellaneous Notes* Telephone Encounter - Kira Adams LPN - 04/28/2024 11:20 AM EDT Prescription Refill Information The patient has been identified by name and date of : Yes Caregiver verified no other encounters exist for this prescription request: Yes Caregiver confirmed with patient/requestor that no other refills are due, in the near future, with this provider at this time: Yes The last office visit in the department: 04/16/24 Does the patient have a future office visit with this provider/department: Yes 10/17/24 Requested Prescriptions Pending Prescriptions Disp Refills atorvastatin (LIPITOR) 10 mg tablet Sig: Take 0.5 tablets by mouth every other day. For cholesterol. Kira Adams LPN April 28, 2024 11:21 AM documented in this encounterTrihealth [facility]07-24-2024 NoteD[facility]07-24-20[facility] History of Present illness Narrative* Piter Moran APRN.OPENING MACHINE CLEANER - 04/16/2024 8:34 AM EDT SUBJECTIVE Leobardo Valdez is a 73 year old female here today for a check up on her medical problems. Chief Complaint Patient presents with: F/U 6 months HPI Leobardo Valdez is a 73 year old female. She is an established patient of Aashish Bahena MD. Here today for a routine 6 month follow up. She had labs done prior to her visit today. Labs show low ironlevels, she has stopped taking her iron due to GI upset, low b12 levels. Blood pressure controlled.Planning for left knee revision with ortho, Dr. Enciso. Notes some concerns of a rash on the upper buttock and to the gluteal folds. Also has a rash to hercreases of elbows. Has tried OTCs and not improving. Follow up on her diabetes. No mention of low blood sugars. No reports of increased urinating, eating, and drinking. Most recent HbA1c tests were: Lab Results Component Value Date HBA1C 7.0 (H) 03/31/2024 HBA1C 7.2 (H) 10/17/2023 HBA1C 6.8 (H) 04/05/2023 Her medications were reviewed today and her list is now up to date. Medications Current Outpatient Medications Medication Sig oxyCODONE-acetaminophen (PERCOCET) 5-325 mg tablet as needed. FARXIGA 10 mg tablet Take 1 tablet by mouth once daily. folic acid 1 mg tablet Take 1 tablet by mouth once daily. hydroCHLOROthiazide 12.5 mg capsule Take 1 capsule by mouth once daily. levothyroxine (SYNTHROID) 100 mcg tablet Take 1 tablet by mouth once daily. Take one tab daily losartan (COZAAR) 50 mg tablet Take 1 tablet by mouth once daily. glimepiride (AMARYL) 4 mg tablet Take 1 tablet by mouth two times a day. metFORMIN ER (GLUCOPHAGE XR) 500 mg 24 hr tablet Take 2 tablets by mouth two times a day. ascorbic acid, vitamin C, (VITAMIN C) 500 mg tablet Take 500 mg by mouth once daily. GEMTESA 75 mg tablet Take 1 tablet by mouth once daily. atorvastatin (LIPITOR) 10 mg tablet Take 0.5 tablets by mouth every other day. For cholesterol. pregabalin (LYRICA) 100 mg capsule Take 100 mg by mouth three times daily. Cholecalciferol, Vitamin D3, (VITAMIN D-3) 2,000 unit Tab Take 1 tablet by mouth once daily. iron polysaccharide complex (NU-IRON) 150 mg iron capsule Take 1 capsule by mouth once daily. fluconazole (DIFLUCAN) 100 mg tablet Take 1 tablet by mouth once daily for 7 days. Repeat in 3 daysas needed. nystatin (MYCOSTATIN) cream Apply to affected area two times a day. cyanocobalamin (VITAMIN B-12) 1,000 mcg tab Take 1 tablet by mouth once daily. No current facility-administered medications for this visit. ALLERGIES Allergen Reactions Adhesive Tape (Brandee* Other: See Comments Blisters on skin Iodine passed out hives Levofloxacin Vomiting Mental status change, nausea vomiting Shellfish Derived GI Upset Soft shell seafoods. Once passed out. Avoids seafood with shells (including shrimp and crab). Zocor [Simvastatin] Myalgia ACTIVE PROBLEM LIST Obesity, Class I, Bmi 30-34.9 - 04/03/2023 Hiatal Hernia - 04/03/2023 Trigger Middle Finger of Left Hand - 05/30/2016 Chronic Pain of Left Knee - 04/05/2016 Diabetes Mellitus Type 2, Controlled, Without Complications (Hcc) - 05/27/2015 B12 Deficiency - 07/31/2012 Bilateral Carpal Tunnel Syndrome - 03/16/2011 Comment: Noted and conservative measures implemented 02/2011 Nontoxic Uninodular Goiter - 02/11/2009 Comment: Klarissanoam did total thyroidectomy on 03-24-09: Ca 8.3 day 1 postop TSH 41 in 07-02: synthroid to 88 mcg Pure Hypercholesterolemia - 05/26/2005 Comment: LDL 85, HDL 42, TG 154 in 10-02 Hypertension Goal Bp (Blood Pressure) < 140/90 - 05/16/2005 Hypothyroidism - 05/16/2005 Comment: TSH 5.9 in 10-02 US 11-02: bilateral nodules about 4 cm TSH 56 in 05-02: Synthroid to 75 mcg TSH 41 in 07-02: changed to 88 mcg TSH 9.6 in 08-02: changed to 100 mcg Social History Tobacco Use Smoking status: Never Smokeless tobacco: Never Substance Use Topics Alcohol use: Yes Comment: Rarely Drug use: No Review of Systems Respiratory: Negative. Cardiovascular: Negative. Skin: Positive for rash. OBJECTIVE BP 132/68 Pulse 72 Wt 190 lb (86.2kg) SpO2 98% Physical Exam Vitals and nursing note reviewed. Constitutional: General: She is awake. She is not in acute distress. Appearance: Normal appearance. She is well-developed and well-groomed. She is not ill-appearing, toxic-appearing or diaphoretic. HENT: Head: Normocephalic. Right Ear: External ear normal. Left Ear: External ear normal. Nose: Nose normal. Eyes: General: Vision grossly intact. Conjunctiva/sclera: Conjunctivae normal. Pupils: Pupils are equal, round, and reactive to light. Neck: Vascular: No JVD. Trachea: Trachea normal. Cardiovascular: Rate and Rhythm: Normal rate and regular rhythm. Pulses: Normal pulses. Heart sounds: Normal heart sounds. No murmur heard. Pulmonary: Effort: Pulmonary effort is normal. No accessory muscle usage, prolonged expiration or respiratory distress. Breath sounds: Normal breath sounds. Musculoskeletal: Cervical back: Neck supple. Skin: General: Skin is warm and dry. Capillary Refill: Capillary refill takes less than 2 seconds. Neurological: General: No focal deficit present. Mental Status: She is alert and oriented to person, place, and time. Mental status is at baseline. Psychiatric: Attention and Perception: Attention and perception normal. Mood and Affect: Mood and affect normal. Speech: Speech normal. Behavior: Behavior normal. Behavior is cooperative. Thought Content: Thought content normal. Cognition and Memory: Cognition and memory normal. Judgment: Judgment normal. ASSESSMENT/PLAN: 1. B12 deficiency - ICD9: 266.2, ICD10: E53.8 (primary diagnosis) Start b12 daily. 2. Iron deficiency - ICD9: 280.9, ICD10: E61.1 Switch iron supplement to Nuiron daily and see if better tolerated. 3. Acquired hypothyroidism - ICD9: 244.9, ICD10: E03.9 Slightly hyperthyroid but overall she feels well so no changes with today's visit. 4. Controlled type 2 diabetes mellitus without complication, without long-term current use of insulin (HCC) - ICD9: 250.00, ICD10: E11.9 - Controlled - Counseled on healthy diet and regular exercise - Discussed need for and benefit of weight loss. BMI 37.11 kg/(m^2) 5. Primary hypertension - ICD9: 401.9, ICD10: I10 - Controlled - Continue current medications - Recommend home blood pressure monitoring, to bring results to next visit - Encouraged sodium restriction, DASH or Mediterranean diet - Recommend regular aerobic exercise 6. Chronic pain of left knee - ICD9: 719.46, 338.29, ICD10: M25.562, G89.29 Planning for upcoming revision surgery with ortho. 7. Yeast dermatitis - ICD9: 112.3, ICD10: B37.2 Diflucan and nystatin topically. 8. Rash - ICD9: 782.1, ICD10: R21 Rash to the inner elbows did not improve with OTC topical steroids. We can have her try the nystatin cream since this might be secondary to her other yeast dermatitis but if persistent we could also try a moderate to high intensity potency topical steroid. 9. Vitamin D deficiency - ICD9: 268.9, ICD10: E55.9 - VITAMIN D 25 HYDROXY 10. Encounter for therapeutic drug monitoring - ICD9: V58.83, ICD10: Z51.81 - COMPLETE BLOOD COUNT AND DIFFERENTIAL - COMPREHENSIVE METABOLIC PANEL - THYROID STIMULATING HORMONE - T3, FREE - T4 FREE/FREE THYROXINE Portions of this note have been entered by ancillary staff. I have reviewed and when necessary edited, so that they are an adequate record of my encounter with this patient Please note that parts of this document were created using voice recognition software and therefore may contain grammatical errors. Patient verbalizes understanding of instructions from today's visit and in agreement with treatmentplan. Questions answered. Agrees to call the office if questions, concerns of issues with acute symptoms not improving or if they worsen. See diagnoses and orders for additional plan(s). Allergies and medications were reviewed, list was updated, and refills given if needed. Past medical, surgical, social, and family history reviewed and updated as appropriate. Encouraged proper diet & exercise as well as compliance with taking medications. Age- appropriate health preventative measures were discussed. Return if symptoms worsen or fail to improve, for Keep next scheduled appointment.. Piter Moran APRN-OPENING MACHINE CLEANER documented in this encounterTrihealth [facility]07-19-[facility] Note* Letter - Coordinator, Mammography - 04/11/2024 1:01 PM EDT April 14, 2024 PID: [id number] Leobardo Valdez [address] [place] [address] Dear Ms. Valdez, We are pleased to inform you that the results of your recent breast imaging exam on 04/11/2024 are normal. Breast tissue can be either dense or not dense. Dense tissue makes it harder to find breast cancer on a mammogram and also raises the risk of developing breast cancer. Your breast tissue is not dense. Talk to your healthcare provider about breast density, risks for breast cancer, and your individual situation. Early detection of cancer is very important. We also understand recommendations regarding breast cancer screening are controversial. Please discuss with your primary care provider which strategy is best for you and whether a mammogram is right for you. Your imaging studies and report will be kept on file at [facility] as part of your permanent medical record and are available for your continuing care. Thank you for allowing us to help in meeting your health care needs. Sincerely, Dr. Wooten Interpreting Radiologist [facility] (Normal over 40) [facility]07-19-2024 Miscellaneous Notes* Letter - Coordinator, Mammography - 04/11/2024 1:01 PM EDT April 14, 2024 PID: [id number] Leobardo Valdez [address] [place] [address] Dear Ms. Valdez, We are pleased to inform you that the results of your recent breast imaging exam on 04/11/2024 are normal. Breast tissue can be either dense or not dense. Dense tissue makes it harder to find breast cancer on a mammogram and also raises the risk of developing breast cancer. Your breast tissue is not dense. Talk to your healthcare provider about breast density, risks for breast cancer, and your individual situation. Early detection of cancer is very important. We also understand recommendations regarding breast cancer screening are controversial. Please discuss with your primary care provider which strategy is best for you and whether a mammogram is right for you. Your imaging studies and report will be kept on file at [facility] as part of your permanent medical record and are available for your continuing care. Thank you for allowing us to help in meeting your health care needs. Sincerely, Dr. Wooten Interpreting Radiologist [facility] (Normal over 40) documented in this encounterTrihealth Bet[facility]07-19-2024 History of Present illness Narrative* Iman Nicolas RT(R) - 04/11/2024 11:30 AM EDT Radiology Service Progress Note PATIENT NAME: Leobardo Valdez DATE OF SERVICE: April 11, 2024 TIME: 11:26 AM PATIENT IDENTITY VERIFICATION COMPLETED USING TWO (2) IDENTIFIERS: Name and Date of confirmedby patient verbally. FALL SCREENING: Has the patient had 2 falls in the last year or 1 fall with injury or currently using an Ambulatory Assistive Device (Walker, Cane, Wheelchair, Crutches, etc.)? No PATIENT GENDER DATA: Female. status: : No status: NO. PATIENT RELEVANT IMPLANT DATA REVIEWED: Yes PATIENT PRESENTS WITH AN IMPLANTABLE OR ATTACHED BANANA RIPENING ROOM SUPERVISOR: No RADIOLOGY DEPARTMENT: Mammography PERIPHERAL IV DATA: Not applicable SIGNED BY: RT Alisha(R) April 11, 2024 11:26 AM documented in this encounterTrihealth Bethes[facility]07-19-2024 [facility] NoteD[facility] History of Present illness Narrative* Mart Enciso MD - 03/04/2024 10:49 AM EDT Orthopaedic Office Note: March 04, 2024 11:04 AM Leobardo Valdez 73 year old History: Leobardo is a 72-year-old woman with a significant medical history involving both of her knees. She does have type 2 diabetes with her last A1c 7.2 in September. She had a successful right knee replacementby another physician. Her left knee replacement has not gone well. Her left knee was originally replaced in September [address] Esteves. She underwent a manipulation under anesthesia in December 2013. In August [address] Ace at [facility] and underwent revision of the polyethylene component. She had an early infection after surgery, and so in September another surgeon in that institution performed irrigation debridement as well as a lateral gastrocnemius flap plus a skin graft. She has had ongoing issues with arthrofibrosis and pain since. She is severely limited. She has 15 degrees of motion and daily pain with activities. She had extensive discussion at the last appointment regarding the treatment options at this point.Discussion was had regarding living with her knee, but this is not been acceptable for her given significant functional difficulty even with sitting in chairs, walking, and especially stairs. Discussion was also had regarding revision total knee to increase motion, and this was discussed as something that is very difficult to predict and has a high likelihood of recurrent arthrofibrosis especially in the setting of a prior lateral gastrocnemius flap. Above-knee amputation was also discussed as a option to improve quality of life. Given her interest improve suing revision total knee arthroplasty, infectious workup was completed in October 2023 with a CRP of 0.7, WSR of 12, aspiration with 451 cells 67% neutrophils. Subjective: She has had no changes since her last appointment and her near symptoms. No new redness or drainage. No fevers Updated ROS: No changes Updated Exam: Left Lower Extremity Left knee has passive motion from 5 of hyperextension to 15 of flexion. Active motion is straight leg raise to full extension without lag to 15 of flexion. Varus valgus stable Has tenderness over her lateral gastrocnemius flap, some hyperesthesia in the region of her flap. Has some numbness along the lateral lower leg, but does have full sensation of the foot including in the superficial peroneal and deep peroneal nerve distributions. 5 out of 5 ankle dorsiflexion ankle plantarflexion extensor houses longus. Has 2+ dorsalis pedis pulse and brisk cap refill Updated Imaging: Imaging from October demonstrates cemented cruciate sacrificing component in stable position with patella Baja Assessment and Plan: Complex left total knee arthroplasty presentation with history of arthrofibrosis status post manipulation and polyethylene exchange complicated by infection status post debridement with retention of implant that required a lateral gastroc flap Now presenting with severe arthrofibrosis and a motion contracture of 15 degrees We have discussed the risks, benefits, alternative procedures, expected outcomes and the length of convalescence. We have also discussed operative versus nonoperative management options and associated expectations for outcome in this individualized scenario. Specifically, the risks and benefits andadvantages and disadvantages of continued nonoperative intervention and living with her knee as theway it is, above-knee amputation, and revision total knee arthroplasty were discussed in detail. Itwas highlighted that the revision total knee has the highest risk complication and is the least predictable, but does provide the only opportunity to have improved range of motion while keeping her lower extremity. All questions were invited and answered today. Leobardo Valdez understands and has elected to proceed with surgical intervention in the form of revision left total knee arthroplasty withexplantation and reimplantation of a hinged component and exposure assistance from plastic surgery to raise the lateral gastrocnemias flap. Surgery will be performed at [facility] with plastic surgery assistance 1. Will begin surgical planning as outlined above, specifically coordinating with plastic surgery for an OR date at [facility] and will discuss with plastic surgery regarding range of motion restrictions after surgery and timeline for the lateral gastroc flap 2. Available for any questions or concerns in the meantime I spent a total of approximately 25 minutes on the date of the service which included preparing to see the patient, [id number] patient care, completing clinical documentation, obtaining and/or reviewing separately obtained history, performing a medically appropriate examination, counseling and educating the patient/family/caregiver, ordering medications, tests, or procedures, independently interpreting results (not separately reported), communicating results to the patient/family/caregiver, and care coordination (not separately reported). Mart Enciso MD Orthopaedic Surgery documented in this encounterTrihealth [facility]02-08-2024 Miscellaneous Notes* Telephone Encounter - Linda Kenyon - 11/01/2023 9:29 AM EST Patient has been scheduled for their MSK US INJ exam on 11/14/23 : 1:00 PM at [facility]. * Telephone Encounter - Kyree Scott - 10/31/2023 12:37 PM EST Called patient on 10/31/23 at 12:37 PM to schedule their MSK US exam. No answer, left VM, 1st attempt. * Telephone Encounter - Mahi Roth PCNA - 10/31/2023 9:23 AM EST Visit Type: INJ ONLY 1 Visit Length: 60 MINUTES Order Name/Protocol: US ASP/INJ KNEE JT/BURSA LT; LT KNEE ASP W/LABS. LABS IN LAB TAB Preferred Provider: N/A Comment: N/A Location: [facility] Slot held: N/A documented in this encounterTrihealth [facility]02-06-2024 History of Present illness Narrative* Mart Enciso MD - 10/30/2023 9:05 AM EST Orthopaedic Office Note: October 30, 2023 11:01 AM Leobardo Valdez 72 year old History: Leobardo is a 72-year-old woman with a significant medical history involving both of her knees. She hada successful right knee replacement by another physician. Her left knee replacement has not gone well. Her left knee was originally replaced in September [address] Esteves. She underwent a manipulation under anesthesia in December 2013. In August [address] Ace at [facility] and underwent revision of the polyethylene component. She had an early infection after surgery, and so in September another surgeon in that institution performed irrigation debridement as well as a lateral gastrocnemius flap plus a skin graft. She has had ongoing issues with arthrofibrosis and pain since. She is severely limited. She has 15 degrees of motion and daily pain with activities. Subjective: See above Updated ROS: No changes Updated Exam: Left lower Extremity Healed midline incision Healed skin graft Healed lateral gastrocnemius flap incision Mild effusion No erythema No increased warmth Full extension Flexion to 15 degrees Updated Imaging: Knee replacement with severe patella Baja Assessment and Plan: I had an honest discussion with Leobardo about her left knee today She has profound arthrofibrosis She cannot get in and out of cars, can barely navigate stairs, cannot sit in a normal chair We discussed revision surgery for severe arthrofibrosis. We discussed the unpredictability of results. However, her disease process is quite profound. If she were interested in surgery, I would have a plastic surgeon raise her flap, and I would do a complete takedown of her collateral ligaments andconvert her to a hinged replacement, possibly even shorten her extremity slightly in doing so. Surgery would certainly entail substantial risk especially based on her previous infection which she understands. I have also talked her about living this way, and I have also discussed above- knee amputation with her depending on her function and limitations. We would need to rule out infection first which I have advised she do. I have ordered inflammatory markers and an aspiration of her knee. She will follow-up with me once she and her discussed this more and once the above are completed. Mart Enciso MD Orthopaedic Surgery I spent a total of approximately 50 minutes on the date of the service which included preparing to see the patient, [id number] patient care, completing clinical documentation, obtaining and/or reviewing separately obtained history, performing a medically appropriate examination, counseling and educating the patient/family/caregiver, ordering medications, tests, or procedures, communicating withother HCPs (not separately reported), independently interpreting results (not separately reported),communicating results to the patient/family/caregiver, and care coordination (not separately reported). documented in this encounterTrihealth [facility]02-06-2024 History of Present illness Narrative* Bharath Ortega Tech - 10/30/2023 8:10 AM EST Radiology Service Progress Note PATIENT NAME: Leobardo Valdez DATE OF SERVICE: October 30, 2023 TIME: 8:10 AM PATIENT IDENTITY VERIFICATION COMPLETED USING TWO (2) IDENTIFIERS: Name and Date of confirmedby patient verbally. FALL SCREENING: Has the patient had 2 falls in the last year or 1 fall with injury or currently using an Ambulatory Assistive Device (Walker, Cane, Wheelchair, Crutches, etc.)? No PATIENT GENDER DATA: Female. status: : No status: NO. PATIENT RELEVANT IMPLANT DATA REVIEWED: Not Applicable PATIENT PRESENTS WITH AN IMPLANTABLE OR ATTACHED BANANA RIPENING ROOM SUPERVISOR: No RADIOLOGY DEPARTMENT: General X-ray: Exam(s) Completed: Lower Extremity X- Ray(s): Knee, AP / Lat / Merchant Left and Wt. Bearing PERIPHERAL IV DATA: Not applicable SIGNED BY: Terra Bell October 30, 2023 8:10 AM documented in this encounterTrihealth [facility]01-24-2024 History of Present illness Narrative* Aashish Bahena MD - 10/17/2023 10:22 AM EST This note was created using [email or web address]. Subjective Leobardo Valdez is a 72 year old female. Patient presents with: F/U 6 months SUBJECTIVE: Leobardo Valdez is a 72 year old year old lady here today for 6 month follow up appointment for review of medical conditions. Overall doing fine on current meds. See assessment and plan for other issues addressed. PAST MEDICAL HISTORY Diagnosis Date Calculus of gallbladder without mention of cholecystitis or obstruction 05/16/2005 DIABETES MELLITUS TYPE II-UNCOMPL 05/16/2005 Diarrhea Esophageal reflux 05/16/2005 HYPERTENSION NOS 05/16/2005 HYPOTHYROIDISM NOS 05/16/2005 Internal hemorrhoids without mention of complication Current Outpatient Medications Medication Sig glimepiride (AMARYL) 4 mg tablet Take 1 tablet by mouth two times a day. metFORMIN ER (GLUCOPHAGE XR) 500 mg 24 hr tablet Take 2 tablets by mouth two times a day. FARXIGA 10 mg tablet Take 1 tablet by mouth once daily. pyridostigmine (MESTINON) 60 mg tablet Take 1 tablet by mouth once daily. ferrous sulfate (IRON) 325 mg (65 mg iron) tablet Take 325 mg by mouth every other day. ascorbic acid, vitamin C, (VITAMIN C) 500 mg tablet Take 500 mg by mouth once daily. GEMTESA 75 mg tablet Take 1 tablet by mouth once daily. atorvastatin (LIPITOR) 10 mg tablet Take 0.5 tablets by mouth every other day. For cholesterol. losartan (COZAAR) 50 mg tablet Take 50 mg by mouth once daily. hydroCHLOROthiazide 12.5 mg capsule Take 12.5 mg by mouth once daily. levothyroxine (SYNTHROID) 100 mcg tablet Take 1 tablet by mouth once daily. Take one tab daily pregabalin (LYRICA) 100 mg capsule Take 100 mg by mouth three times daily. folic acid 1 mg tablet Take 1 tablet by mouth once daily. Cholecalciferol, Vitamin D3, (VITAMIN D-3) 2,000 unit Tab Take 1 tablet by mouth once daily. No current facility-administered medications for this visit. Review of Systems Objective BP 136/60 (BP Site: Left Arm, BP Position: Sitting, BP Cuff Size: Large Adult) Pulse 69 Temp 36.7 C (98.1 F) Resp 12 Ht 152.4 cm (5') Wt 86.2 kg (190 lb) SpO2 99% BMI 37.11 kg/m Last 5 Encounter Wt Readings: Date: Wt: 10/17/2023 86.2 kg (190 lb) 04/03/2023 82.1 kg (181 lb) 10/19/2016 90.4 kg (199 lb 3.2 oz) 07/13/2016 90.7 kg (200 lb) 04/05/2016 90.7 kg (200 lb) No waist measurement recorded Estimated body mass index is 37.11 kg/m as calculated from the following: Height as of this encounter: 152.4 cm (5'). Weight as of this encounter: 86.2 kg (190 lb). Last 5 Encounter BP Readings: Date: BP: 10/17/2023 136/60 04/03/2023 148/72 10/19/2016 160/70 07/13/2016 124/70 04/05/2016 126/70 Physical Exam Constitutional: Appearance: Normal appearance. HENT: Head: Normocephalic. Eyes: Conjunctiva/sclera: Conjunctivae normal. Cardiovascular: Rate and Rhythm: Normal rate and regular rhythm. Heart sounds: Normal heart sounds. Pulmonary: Effort: Pulmonary effort is normal. Breath sounds: Normal breath sounds. Musculoskeletal: Right lower leg: No edema. Left lower leg: Edema (ankle) present. Skin: General: Skin is warm and dry. Neurological: General: No focal deficit present. Mental Status: She is alert and oriented to person, place, and time. Psychiatric: Mood and Affect: Mood normal. Behavior: Behavior normal. Thought Content: Thought content normal. Judgment: Judgment normal. Component Latest Ref Rng & Units 04/05/2023 10/17/2023 WBC 3.70 - 11.00 k/uL 8.57 RBC 3.90 - 5.20 m/uL 5.12 Hemoglobin 11.5 - 15.5 g/dL 14.3 Hematocrit 36.0 - 46.0 % 43.2 MCV 80.0 - 100.0 fL 84.4 MCH 26.0 - 34.0 pg 27.9 MCHC 30.5 - 36.0 g/dL 33.1 RDW-CV 11.5 - 15.0 % 15.2 (H) Platelet Count 150 - 400 k/uL 334 MPV 9.0 - 12.7 fL 10.1 Neut% % 63.3 Abs Neut (ANC) 1.45 - 7.50 k/uL 5.43 Lymph% % 22.3 Abs Lymph 1.00 - 4.00 k/uL 1.91 Lasalle% % 8.2 Abs Lasalle <0.87 k/uL 0.70 Eosin% % 4.9 Abs Eosin <0.46 k/uL 0.42 Baso% % 0.9 Abs Baso <0.11 k/uL 0.08 Immature Gran % % 0.4 IMMATURE GRANS (ABS) <0.10 k/uL 0.03 NRBC /100 WBC 0.0 Absolute nRBC <0.01 k/uL <0.01 DTYPE Auto Protein, Total 6.3 - 8.0 g/dL 7.1 7.5 Albumin 3.9 - 4.9 g/dL 4.1 4.3 Calcium 8.5 - 10.2 mg/dL 9.5 10.3 (H) Bilirubin, Total 0.2 - 1.3 mg/dL 0.3 0.2 Alkaline Phosphatase 34 - 123 U/L 116 104 AST 13 - 35 U/L 12 (L) 19 ALT 7 - 38 U/L 13 18 Glucose 74 - 99 mg/dL 141 (H) 136 (H) BUN 7 - 21 mg/dL 14 15 Creatinine 0.58 - 0.96 mg/dL 0.85 0.90 Sodium 136 - 144 mmol/L 138 143 Potassium 3.7 - 5.1 mmol/L 4.0 4.5 Chloride 97 - 105 mmol/L 102 104 CO2 22 - 30 mmol/L 26 25 Anion Gap 9 - 18 mmol/L 10 14 eGFR >=60 mL/min/1.73m 72 67 Cholesterol, Total <200 mg/dL 197 166 Triglyceride <150 mg/dL 125 170 (H) HDL Cholesterol >39 mg/dL 52 43 Non HDL Cholesterol <130 mg/dL 145 (H) 123 Fasting Time hrs 12 6 VLDL Cholesterol <30 mg/dL 25 34 (H) TC:HDL Ratio <5.10 3.79 3.86 LDL Cholesterol <100 mg/dL 120 (H) 89 LDL:HDL Ratio <2.54 2.31 2.07 Creatinine, Ur Random (UCRR) 20.0 - 300.0 mg/dL 149.9 50.3 Albumin, Urine Random mg/L <12.0 <12.0 Albumin/Creat Ratio <30 mg/g <8 <24 Iron 41 - 186 ug/dL 44 46 TIBC 232 - 386 ug/dL 373 360 Transferrin Saturation 15.0 - 57.0 % 11.8 (L) 12.8 (L) Hemoglobin A1C 4.3 - 5.6 % 6.8 (H) 7.2 (H) Estimated Average Glucose mg/dL 148 160 Vitamin B12 232 - 1,245 pg/mL 259 262 Ferritin 14.7 - 205.1 ng/mL 22.4 44.5 Vitamin D 25 Hydroxy 31.0 - 80.0 ng/mL 41.1 43.9 TSH 0.270 - 4.200 mIU/L 0.750 0.309 Free T4 0.9 - 1.7 ng/dL 1.6 Assessment and Plan Encounter Diagnosis ICD-10-CM 1. Controlled type 2 diabetes mellitus without complication, without long-term current use of insulin (HCC) E11.9 FARXIGA 10 mg tablet losartan (COZAAR) 50 mg tablet HGB A1C BASIC METABOLIC PNL LIPID PANEL BASIC COMP METABOLIC PANEL HGB A1C VITAMIN D 25 HYDROXY VITAMIN B12 BLOOD ALBUMIN/CREAT RATIO RND UR Well controlled. Continue present management 2. Acquired hypothyroidism E03.9 levothyroxine (SYNTHROID) 100 mcg tablet TSH BLD T4 FREE/FREE THYROX TSH BLD T4 FREE/FREE THYROX Clinically euthyroid. Stay on same dose 3. Primary hypertension I10 hydroCHLOROthiazide 12.5 mg capsule losartan (COZAAR) 50 mg tablet Fair control. Continue present med management 4. PURE HYPERCHOLESTEROLEM E78.00 LIPID PANEL BASIC Improved LDL. Diet and exercise to get HDL and TG to goals 5. Chronic pain of left knee M25.562 G89.29 6. Vitamin D deficiency E55.9 VITAMIN D 25 HYDROXY VITAMIN D 25 HYDROXY Continues supplement 7. Vitamin B12 deficiency E53.8 VITAMIN B12 BLOOD VITAMIN B12 BLOOD Continue present dose 8. Iron deficiency E61.1 IRON + TIBC FERRITIN BLD Check labs before next appointment 9. Encounter for immunization Z23 RSV PRINTED PHARMACY INSTRUCTIONS TDAP PRINTED PHARMACY INSTRUCTIONS PNEUMOCOCCAL VACCINE (PREVNAR 20) 10. Need for shingles vaccine Z23 SHINGRIX PRINTED PHARMACY INSTRUCTIONS 11. Screening for colon cancer Z12.11 12. Breast cancer screening by mammogram Z12.31 MAHESH SCREENING W JEFERSON 13. Encounter for long-term current use of medication Z79.899 LIPID PANEL BASIC COMP METABOLIC PANEL HGB A1C TSH BLD VITAMIN D 25 HYDROXY T4 FREE/FREE THYROX VITAMIN B12 BLOOD ALBUMIN/CREAT RATIO RND UR 14. Screening for diabetic retinopathy Z13.5 Above issues addressed with patient. Patient involved in shared decision making for management of medical issues. History and medications reviewed. Epic updated as needed Refills and/or prescriptions taken care of and meds adjusted as indicated after reviewed history, exam and labs. Health Maintenance reviewed. Updated record and/or ordered tests as recorded. Encouraged on efforts at healthy diet and regular exercise and adequate sleep. Aashish Bahena MD documented [facility] encounter[facility] Instructions* Patient Instructions* Piter Moran APRN.CNP - 04/03/2023 10:43 AM EDT Get blood work today. We will my chart you with your results. Get mammogram. Can stop Prilosec. Follow up in 6 months unless we see a reason to follow up sooner. documented in this encounterTri[facility] History of Present illness Narrative* Piter Moran APRN.CNP - 04/03/2023 10:12 AM EDT SUBJECTIVE Leobardo Valdez is a 72 year old female here today to establish care. Chief Complaint Patient presents with: Establish Care HPI Leobardo Valdez is a 72 year old female patient who presents today to establish care. Prior PCP was Dr. Lozano. Overall chronic issues controlled. No recent labs. No other providers except anayeli, Dr. Price. She has chronic conditions of hypertension, hyperlipidemia, b12 def, hypothyroid, hiatal hernia, and diabetes. No concerns regarding depression. She would like an order for her mammogram. Blood pressure appears to be elevated today but was previously in goal range. Denies any symptoms referable to elevated blood pressure. Specifically denies headache, chest pain, palpitations, dyspneaand peripheral edema. Tolerating medications well. Leobardo Valdez is a 72 year old female here today for a check up on her diabetes. She is compliant on taking her medications :Yes Denies increased urinating, eating, and drinking. Most recent HbA1c tests were: Lab Results Component Value Date HBA1C 7.4 (H) 01/15/2017 HBA1C 7.4 (H) 10/16/2016 HBA1C 9.7 (H) 07/11/2016 Depression Screening 04/05/2016 03/31/2023 04/03/2023 PHQ-2 Score 1 0 0 PHQ-9 Score - 2 - Depression screening tool completed and reviewed. Based on score and interview, patient is not at risk for depression. Screening tool discussed with patient, and I recommended no further interventionat this time. Her medications were reviewed today and her list is now up to date. Medications Current Outpatient Medications Medication Sig FARXIGA 10 mg tablet Take 1 tablet by mouth once daily. glimepiride (AMARYL) 4 mg tablet Take 1 tablet by mouth twice daily. ferrous sulfate (IRON) 325 mg (65 mg iron) tablet Take 325 mg by mouth every other day. ascorbic acid, vitamin C, (VITAMIN C) 500 mg tablet Take 500 mg by mouth once daily. atorvastatin (LIPITOR) 10 mg tablet Take 0.5 tablets by mouth every other day. For cholesterol. losartan (COZAAR) 50 mg tablet Take 50 mg by mouth once daily. hydroCHLOROthiazide 12.5 mg capsule Take 12.5 mg by mouth once daily. levothyroxine (SYNTHROID) 100 mcg tablet Take 1 tablet by mouth once daily. Take one tab daily pregabalin (LYRICA) 100 mg capsule Take 100 mg by mouth three times daily. folic acid 1 mg tablet Take 1 tablet by mouth once daily. metFORMIN ER (GLUCOPHAGE XR) 500 mg 24 hr tablet Take 2 tablets by mouth twice daily. Cholecalciferol, Vitamin D3, (VITAMIN D-3) 2,000 unit Tab Take 1 tablet by mouth once daily. pyridostigmine (MESTINON) 60 mg tablet Take 1 tablet by mouth once daily. GEMTESA 75 mg tablet Take 1 tablet by mouth once daily. No current facility-administered medications for this visit. ALLERGIES Allergen Reactions Adhesive Tape (Brandee* Other: See Comments Blisters on skin Iodine passed out hives Levofloxacin Vomiting Mental status change, nausea vomiting [employer]s* Zocor [Simvastatin] Myalgia ACTIVE PROBLEM LIST Obesity, Class I, Bmi 30-34.9 - 04/03/2023 Hiatal Hernia - 04/03/2023 Trigger Middle Finger of Left Hand - 05/30/2016 Chronic Pain of Left Knee - 04/05/2016 Diabetes Mellitus Type 2, Controlled, Without Complications (Hcc) - 05/27/2015 B12 Deficiency - 07/31/2012 Bilateral Carpal Tunnel Syndrome - 03/16/2011 Comment: Noted and conservative measures implemented 02/2011 Nontoxic Uninodular Goiter - 02/11/2009 Comment: Melissa did total thyroidectomy on 03-24-09: Ca 8.3 day 1 postop TSH 41 in 07-02: synthroid to 88 mcg Pure Hypercholesterolemia - 05/26/2005 Comment: LDL 85, HDL 42, TG 154 in 10-02 Hypertension Goal Bp (Blood Pressure) < 140/90 - 05/16/2005 Hypothyroidism - 05/16/2005 Comment: TSH 5.9 in 10-02 US 11-02: bilateral nodules about 4 cm TSH 56 in 05-02: Synthroid to 75 mcg TSH 41 in 07-02: changed to 88 mcg TSH 9.6 in 08-02: changed to 100 mcg Social History Tobacco Use Smoking status: Never Smokeless tobacco: Never Substance Use Topics Alcohol use: Yes Comment: Rarely Drug use: No Review of Systems Constitutional: Negative. Respiratory: Negative. Cardiovascular: Negative. OBJECTIVE BP 148/72 Pulse 69 Wt 181 lb (82.1kg) SpO2 98% Physical Exam Vitals and nursing note reviewed. Constitutional: General: She is awake. She is not in acute distress. Appearance: Normal appearance. She is well-developed and well-groomed. She is obese. She is not ill-appearing, toxic-appearing or diaphoretic. HENT: Head: Normocephalic. Right Ear: External ear normal. Left Ear: External ear normal. Nose: Nose normal. Eyes: General: Vision grossly intact. Conjunctiva/sclera: Conjunctivae normal. Pupils: Pupils are equal, round, and reactive to light. Neck: Vascular: No JVD. Trachea: Trachea normal. Cardiovascular: Rate and Rhythm: Normal rate and regular rhythm. Pulses: Normal pulses. Heart sounds: Normal heart sounds. No murmur heard. Pulmonary: Effort: Pulmonary effort is normal. No accessory muscle usage, prolonged expiration or respiratory distress. Breath sounds: Normal breath sounds. Musculoskeletal: Cervical back: Neck supple. Skin: General: Skin is warm and dry. Capillary Refill: Capillary refill takes less than 2 seconds. Neurological: General: No focal deficit present. Mental Status: She is alert and oriented to person, place, and time. Mental status is at baseline. Psychiatric: Attention and Perception: Attention and perception normal. Mood and Affect: Mood and affect normal. Speech: Speech normal. Behavior: Behavior normal. Behavior is cooperative. Thought Content: Thought content normal. Cognition and Memory: Cognition and memory normal. Judgment: Judgment normal. Diabetic Foot Exam: Feet:Shoes and socks removed, Are you having foot pain no, normal distal pulses, calluses noted bilaterally, and nails notable to be long. ASSESSMENT/PLAN: 1. Hypertension goal BP (blood pressure) < 140/90 - ICD9: 401.9, ICD10: I10 (primary diagnosis) - Factors affecting control: suspected white coat hypertension with first visit with provider - Continue current medications - Recommend home blood pressure monitoring, to bring results to next visit - Encouraged sodium restriction, DASH or Mediterranean diet - Recommend regular aerobic exercise 2. Hiatal hernia - ICD9: 553.3, ICD10: K44.9 Can trial stopping her Prilosec and see if well tolerated. 3. Controlled type 2 diabetes mellitus without complication, without long-term current use of insulin (HCC) - ICD9: 250.00, ICD10: E11.9 - Control undetermined, due for labs - Continue current medications - Counseled on healthy diet and regular exercise - Recommend podiatry for calluses and to keep nails trimmed, declines today - HGB A1C - ALBUMIN/CREAT RATIO RND UR 4. Obesity, Class I, BMI 30-34.9 - ICD9: 278.00, ICD10: E66.9 5. PURE HYPERCHOLESTEROLEM - ICD9: 272.0, ICD10: E78.00 - ATORVASTATIN 10 MG TABLET - LIPID PANEL BASIC 6. Acquired hypothyroidism - ICD9: 244.9, ICD10: E03.9 - Instructed patient on importance of taking on an empty stomach either first thing in the morning or at bedtime. - LEVOTHYROXINE 100 MCG TABLET - TSH BLD 7. Vitamin D deficiency - ICD9: 268.9, ICD10: E55.9 - VITAMIN D 25 HYDROXY 8. Vitamin B12 deficiency - ICD9: 266.2, ICD10: E53.8 - VITAMIN B12 BLOOD 9. Anemia, unspecified type - ICD9: 285.9, ICD10: D64.9 - CBC + DIFF - IRON + TIBC - FERRITIN BLD 10. Encounter for screening mammogram for breast cancer - ICD9: V76.12, ICD10: Z12.31 - MAHESH SCREENING 11. Encounter for therapeutic drug monitoring - ICD9: V58.83, ICD10: Z51.81 - HGB A1C - LIPID PANEL BASIC - CBC + DIFF - COMP METABOLIC PANEL - ALBUMIN/CREAT RATIO RND UR - VITAMIN B12 BLOOD - IRON + TIBC - FERRITIN BLD - VITAMIN D 25 HYDROXY - TSH BLD 12. Encounter to establish care - ICD9: V65.8, ICD10: Z76.89 - ADVANCE CARE PLAN DISCUSSION - DEPRESSION SCREENING/ASSESSMENT Portions of this note have been entered by ancillary staff. I have reviewed and when necessary edited, so that they are an adequate record of my encounter with this patient Please note that parts of this document were created using voice recognition software and therefore may contain grammatical errors. Patient verbalizes understanding of instructions from today's visit and in agreement with treatmentplan. Questions answered. Agrees to call the office if questions, concerns of issues with acute symptoms not improving or if they worsen. See diagnoses and orders for additional plan(s). Allergies and medications were reviewed, list was updated, and refills given if needed. Past medical, surgical, social, and family history reviewed and updated as appropriate. Encouraged proper diet & exercise as well as compliance with taking medications. Age- appropriate health preventative measures were discussed. Return in about 6 months (around 10/04/2023) for Follow up on chronic conditions and medications.. Piter Moran APRN-LEE ANN documented in this encounterTri[facility] History of Past illness Narrative* Problem Noted Date Diagnosed Date Resolved Date DM (diabetes mellitus), type 2 05/27/2014 05/27/2015 Special screening for malign ant neoplasms, colon 06/15/2010 03/16/2011 Diarrhea 06/15/2010 03/16/2011 Internal hemorrhoids without mention of complication 06/15/2010 12/29/2015 Obesity, unspecified 03/09/2009 015 Lumbago 03/09/2009 04/03/2023 Overview: Extensor muscle pain as of 03-02: NSAIDs and consider PT BARTHOLIN'S CYST 09/02/2007 03/16/2011 Calculus of gallbladder with out mention of cholecystitis or obstruction 05/16/2005 05/26/2005 Esophageal reflux 05/16/2005 03/16/2011 DM w/o Complication Type II 05/16/2005 05/27/2014 Overview: A1C 7% in 10-02, 7.6% in 05-02, 7.2% in 08-[address] Lopez in 01-30 Last Assessment & Plan: A1C is 6.9% today. Testing infrequently, tolerating medications documented as of this encounter (statuses as of 04/03/2023) [facility] History of Past illness Narrative* Problem Noted Date Diagnosed Date Resolved Date DM (diabetes mellitus), type 2 05/27/2014 05/27/2015 Special screening for malign ant neoplasms, colon 06/15/2010 03/16/2011 Diarrhea 06/15/2010 03/16/2011 Internal hemorrhoids without mention of complication 06/15/2010 12/29/2015 Obesity, unspecified 03/09/2009 015 Lumbago 03/09/2009 04/03/2023 Overview: Extensor muscle pain as of 03-02: NSAIDs and consider PT BARTHOLIN'S CYST 09/02/2007 03/16/2011 Calculus of gallbladder with out mention of cholecystitis or obstruction 05/16/2005 05/26/2005 Esophageal reflux 05/16/2005 03/16/2011 DM w/o Complication Type II 05/16/2005 05/27/2014 Overview: A1C 7% in 10-02, 7.6% in 05-02, 7.2% in 08-[address] Lopez in 01-30 Last Assessment & Plan: A1C is 6.9% today. Testing infrequently, tolerating medications documented as of this encounter (statuses as of 10/30/2023) [facility] of Past illness Narrative* Problem Noted Date Diagnosed Date Resolved Date DM (diabetes mellitus), type 2 05/27/2014 05/27/2015 Special screening for malign ant neoplasms, colon 06/15/2010 03/16/2011 Diarrhea 06/15/2010 03/16/2011 Internal hemorrhoids without mention of complication 06/15/2010 12/29/2015 Obesity, unspecified 03/09/2009 015 Lumbago 03/09/2009 04/03/2023 Overview: Extensor muscle pain as of 03-02: NSAIDs and consider PT BARTHOLIN'S CYST 09/02/2007 03/16/2011 Calculus of gallbladder with out mention of cholecystitis or obstruction 05/16/2005 05/26/2005 Esophageal reflux 05/16/2005 03/16/2011 DM w/o Complication Type II 05/16/2005 05/27/2014 Overview: A1C 7% in 10-02, 7.6% in 05-02, 7.2% in 08-[address] Lopez in 01-30 Last Assessment & Plan: A1C is 6.9% today. Testing infrequently, tolerating medications documented as of this encounter (statuses as of 11/01/2023) [facility] of Past illness Narrative* Problem Noted Date Diagnosed Date Resolved Date DM (diabetes mellitus), type 2 05/27/2014 05/27/2015 Special screening for malign ant neoplasms, colon 06/15/2010 03/16/2011 Diarrhea 06/15/2010 03/16/2011 Internal hemorrhoids without mention of complication 06/15/2010 12/29/2015 Obesity, unspecified 03/09/2009 015 Lumbago 03/09/2009 04/03/2023 Overview: Extensor muscle pain as of 03-02: NSAIDs and consider PT BARTHOLIN'S CYST 09/02/2007 03/16/2011 Calculus of gallbladder with out mention of cholecystitis or obstruction 05/16/2005 05/26/2005 Esophageal reflux 05/16/2005 03/16/2011 DM w/o Complication Type II 05/16/2005 05/27/2014 Overview: A1C 7% in 10-02, 7.6% in 05-02, 7.2% in 08-[address] Lopez in 01-30 Last Assessment & Plan: A1C is 6.9% today. Testing infrequently, tolerating medications documented as of this encounter (statuses as of 2023) [facility] of Past illness Narrative* Problem Noted Date Diagnosed Date Resolved Date DM (diabetes mellitus), type 2 05/27/2014 05/27/2015 Special screening for malign ant neoplasms, colon 06/15/2010 03/16/2011 Diarrhea 06/15/2010 03/16/2011 Internal hemorrhoids without mention of complication 06/15/2010 12/29/2015 Obesity, unspecified 03/09/2009 015 Lumbago 03/09/2009 04/03/2023 Overview: Extensor muscle pain as of 03-02: NSAIDs and consider PT BARTHOLIN'S CYST 09/02/2007 03/16/2011 Calculus of gallbladder with out mention of cholecystitis or obstruction 05/16/2005 05/26/2005 Esophageal reflux 05/16/2005 03/16/2011 DM w/o Complication Type II 05/16/2005 05/27/2014 Overview: A1C 7% in 10-02, 7.6% in 05-02, 7.2% in 08-[address] Lopez in 01-30 Last Assessment & Plan: A1C is 6.9% today. 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 [facility] Work Phone: Evaluation note* Diagnosis Onset Date Resolution Status Ocular myasthenia gravis acu te [facility] Work Phone: Evaluation noteNo assessment information available [facility] Work Phone: Evaluation note* Diagnosis Onset Date Resolution Status Ocular myasthenia gravis chr onic Status post total right knee replacement acute Osteoarthritis chronic [facility] Work Phone: Evaluation note* Diagnosis Onset Date Resolution Status Status post total right knee replacement acute Osteoarthritis chronic [facility] Work Phone: Evaluation note* Diagnosis Hypertension goal BP (blood pressure) < 140/90- Primary Unspecified essential hypertension Hiatal hernia Diaphragmatic hernia without mention of obstruction or gangrene Controlled type 2 diabetes mellitus without complication, without long-term current use of insulin (HCC) Obesity, Class I, BMI 30-34.9 Obesity, unspecified PURE HYPERCHOLESTEROLEM Pure hypercholesterolemia Acquired hypothyroidism Unspecified hypothyroidism Vitamin D deficiency Unspecified vitamin D deficiency Vitamin B12 deficiency Other B-complex deficiencies Anemia, unspecified type Encounter for screening mammogram for breast cancer Encounter for therapeutic drug monitoring Encounter to establish care Other reasons for seeking consultation documented [facility] this encounter [facility]* Diagnosis Fibrosis of left knee joint- Primary [facility]* Diagnosis Fibrosis of left knee joint documented [facility] this encounter [facility]* Diagnosis Controlled type 2 diabetes mellitus without complication, without long-term current use of insulin (HCC)- Primary Acquired hypothyroidism Unspecified hypothyroidism Primary hypertension Unspecified essential hypertension PURE HYPERCHOLESTEROLEM Pure hypercholesterolemia Chronic pain of left knee Pain in joint, lower leg Vitamin D deficiency Unspecified vitamin D deficiency Vitamin B12 deficiency Other B-complex deficiencies Iron deficiency Iron deficiency anemia, unspecified Encounter for immunization Need for other specified prophylactic vaccination against single bacterial disease Need for shingles vaccine Need for prophylactic vaccination and inoculation against other viral diseases Screening for colon cancer Special screening for malignant neoplasms, colon Breast cancer screening by mammogram Encounter for long-term current use of medication Screening for diabetic retinopathy Screening for other eye conditions documented [facility] this encounter [facility]* Diagnosis Fibrosis of left knee joint- Primary documented in this encounter [facility]* Diagnosis Breast cancer screening by mammogram documented [facility] this encounter [facility]* Diagnosis B12 deficiency- Primary Other B-complex deficiencies Iron deficiency Iron deficiency anemia, unspecified Acquired hypothyroidism Unspecified hypothyroidism Controlled type 2 diabetes mellitus without complication, without long-term current use of insulin ([facility]) Primary hypertension Unspecified essential hypertension Chronic pain of left knee Pain in joint, lower leg Yeast dermatitis Candidiasis of skin and nails Rash Rash and other nonspecific skin eruption Vitamin D deficiency Unspecified vitamin D deficiency Encounter for therapeutic drug monitoring [facility] Diagnosis Fibrosis of left knee joint- Primary [facility] this encounter [facility]* Diagnosis PURE HYPERCHOLESTEROLEM Pure hypercholesterolemia Fibrosis of left knee joint [facility] Diagnosis PURE HYPERCHOLESTEROLEM Pure hypercholesterolemia Fibrosis of left knee joint documented in this encounter [facility] note* Diagnosis PURE HYPERCHOLESTEROLEM Pure hypercholesterolemia Fibrosis of left knee joint documented in this encounter [facility] note* Diagnosis DIABETES MELLITUS TYPE II-UNCOMPL- Primary Type II or unspecified type diabetes mellitus without mention of complication, not stated as uncontrolled HYPERTENSION NOS Unspecified essential hypertension Back pain Backache, unspecified Numbness and tingling in right hand Disturbance of skin sensation Carpal tunnel syndrome of right wrist Carpal tunnel syndrome HYPOTHYROIDISM NOS Unspecified hypothyroidism PURE HYPERCHOLESTEROLEM Pure hypercholesterolemia History of total left knee replacement- Primary Fibrosis of left knee joint documented in this encounter [facility] note* Diagnosis DIABETES MELLITUS TYPE II-UNCOMPL- Primary Type II or unspecified type diabetes mellitus without mention of complication, not stated as uncontrolled HYPERTENSION NOS Unspecified essential hypertension Back pain Backache, unspecified Numbness and tingling in right hand Disturbance of skin sensation Carpal tunnel syndrome of right wrist Carpal tunnel syndrome HYPOTHYROIDISM NOS Unspecified hypothyroidism PURE HYPERCHOLESTEROLEM Pure hypercholesterolemia Left knee pain, unspecified chronicity Fibrosis of left knee joint documented in this encounter [facility] note* Diagnosis DIABETES MELLITUS TYPE II-UNCOMPL- Primary Type II or unspecified type diabetes mellitus without mention of complication, not stated as uncontrolled HYPERTENSION NOS Unspecified essential hypertension Back pain Backache, unspecified Numbness and tingling in right hand Disturbance of skin sensation Carpal tunnel syndrome of right wrist Carpal tunnel syndrome HYPOTHYROIDISM NOS Unspecified hypothyroidism PURE HYPERCHOLESTEROLEM Pure hypercholesterolemia Pre-operative examination- Primary Preoperative examination, unspecified Hypertension goal BP (blood pressure) < 140/90 Unspecified essential hypertension Pure hypercholesterolemia Hiatal hernia Diaphragmatic hernia without mention of obstruction or gangrene Controlled type 2 diabetes mellitus without complication, without long-term current use of insulin (HCC) Acquired hypothyroidism Unspecified hypothyroidism Nontoxic uninodular goiter Obesity, Class I, BMI 30-34.9 Obesity, unspecified History of DVT (deep vein thrombosis) Personal history of venous thrombosis and embolism History of total right knee replacement 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 Fibrosis of left knee joint * Assessment & Plan Note - Leora Jaeger, [employer].[facility] - 06/06/2024 12:01 PM EDT Associated Problem(s): Ocular myasthenia (HCC) Assessment: hx per epic, no documentation found supporting this * Assessment & Plan Note - Leora Jaeger APRN.CNP - 06/06/2024 11:50 AM EDT Associated Problem(s): History of DVT (deep vein thrombosis) Assessment: provoked 2013 knee surgery, tx with AC, no recurrence * Assessment & Plan Note - Leora Jaeger APRN.CNP - 06/06/2024 11:50 AM EDT Associated Problem(s): History of total knee replacement Assessment: s/p right TKA * Assessment & Plan Note - Leora Jaeger APRN.CNP - 06/06/2024 11:48 AM EDT Associated Problem(s): Obesity, Class I, BMI 30-34.9 Assessment: Body mass index is 34.58 kg/m . * Assessment & Plan Note - Leora Jaeger APRN.CNP - 06/06/2024 11:48 AM EDT Associated Problem(s): Nontoxic uninodular goiter Assessment: s/p thyroidectomy * Assessment & Plan Note - Leora Jaeger APRN.CNP - 06/06/2024 11:47 AM EDT Associated Problem(s): Hypothyroidism Assessment: stable on rx * Assessment & Plan Note - Leora Jaeger APRN.CNP - 06/06/2024 11:47 AM EDT Associated Problem(s): Diabetes mellitus type 2, controlled, without complications (HCC) Assessment: controlled on oral agents,new A1c pending Hemoglobin A1C (%) Date Value 03/31/2024 7.0 01/15/2017 7.4 * Assessment & Plan Note - Leora Jaeger APRN.CNP - 06/06/2024 11:47 AM EDT Associated Problem(s): Hiatal hernia Assessment: hx, no surgical intervention * Assessment & Plan Note - Leora Jaeger APRN.CNP - 06/06/2024 11:47 AM EDT Associated Problem(s): Pure hypercholesterolemia Assessment: c/w statin * Assessment & Plan Note - Leora Jaeger APRN.CNP - 06/06/2024 11:47 AM EDT Associated Problem(s): Hypertension goal BP (blood pressure) < 140/90 Assessment: controlled on rx Last 14 BP Last 14 Encounter BP Readings: Date: BP: 06/06/2024 132/80 05/21/2024 162/60 04/16/2024 132/68 10/17/2023 136/60 04/03/2023 148/72 10/19/2016 160/70 07/13/2016 124/70 04/05/2016 126/70 12/29/2015 150/80 08/30/2015 120/60 07/07/2015 128/76 07/05/2015 147/79 06/25/2015 122/84 06/10/2015 154/83[#1 (from Extended Vitals)[ [facility]* Diagnosis DIABETES MELLITUS TYPE II-UNCOMPL- Primary Type II or unspecified type diabetes mellitus without mention of complication, not stated as uncontrolled HYPERTENSION NOS Unspecified essential hypertension Back pain Backache, unspecified Numbness and tingling in right hand Disturbance of skin sensation Carpal tunnel syndrome of right wrist Carpal tunnel syndrome HYPOTHYROIDISM NOS Unspecified hypothyroidism PURE HYPERCHOLESTEROLEM Pure hypercholesterolemia Pre-operative examination- Primary Preoperative examination, unspecified Hypertension goal BP (blood pressure) < 140/90 Unspecified essential hypertension Pure hypercholesterolemia Hiatal hernia Diaphragmatic hernia without mention of obstruction or gangrene Controlled type 2 diabetes mellitus without complication, without long-term current use of insulin (HCC) Acquired hypothyroidism Unspecified hypothyroidism Nontoxic uninodular goiter Obesity, Class I, BMI 30-34.9 Obesity, unspecified History of DVT (deep vein thrombosis) Personal history of venous thrombosis and embolism History of total right knee replacement 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 S/P revision of total knee, left- Primary [facility]* Diagnosis DIABETES MELLITUS TYPE II-UNCOMPL- Primary Type II or unspecified type diabetes mellitus without mention of complication, not stated as uncontrolled HYPERTENSION NOS Unspecified essential hypertension Back pain Backache, unspecified Numbness and tingling in right hand Disturbance of skin sensation Carpal tunnel syndrome of right wrist Carpal tunnel syndrome HYPOTHYROIDISM NOS Unspecified hypothyroidism PURE HYPERCHOLESTEROLEM Pure hypercholesterolemia Pre-operative examination- Primary Preoperative examination, unspecified Hypertension goal BP (blood pressure) < 140/90 Unspecified essential hypertension Pure hypercholesterolemia Hiatal hernia Diaphragmatic hernia without mention of obstruction or gangrene Controlled type 2 diabetes mellitus without complication, without long-term current use of insulin (HCC) Acquired hypothyroidism Unspecified hypothyroidism Nontoxic uninodular goiter Obesity, Class I, BMI 30-34.9 Obesity, unspecified History of DVT (deep vein thrombosis) Personal history of venous thrombosis and embolism History of total right knee replacement 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 Chronic pain of left knee Pain in joint, lower leg [facility]* Diagnosis DIABETES MELLITUS TYPE II-UNCOMPL- Primary Type II or unspecified type diabetes mellitus without mention of complication, not stated as uncontrolled HYPERTENSION NOS Unspecified essential hypertension Back pain Backache, unspecified Numbness and tingling in right hand Disturbance of skin sensation Carpal tunnel syndrome of right wrist Carpal tunnel syndrome HYPOTHYROIDISM NOS Unspecified hypothyroidism PURE HYPERCHOLESTEROLEM Pure hypercholesterolemia Pre-operative examination- Primary Preoperative examination, unspecified Hypertension goal BP (blood pressure) < 140/90 Unspecified essential hypertension Pure hypercholesterolemia Hiatal hernia Diaphragmatic hernia without mention of obstruction or gangrene Controlled type 2 diabetes mellitus without complication, without long-term current use of insulin (HCC) Acquired hypothyroidism Unspecified hypothyroidism Nontoxic uninodular goiter Obesity, Class I, BMI 30-34.9 Obesity, unspecified History of DVT (deep vein thrombosis) Personal history of venous thrombosis and embolism History of total right knee replacement 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 S/P revision of total knee, left- Primary documented in this encounter [facility] note* Diagnosis DIABETES MELLITUS TYPE II-UNCOMPL- Primary Type II or unspecified type diabetes mellitus without mention of complication, not stated as uncontrolled HYPERTENSION NOS Unspecified essential hypertension Back pain Backache, unspecified Numbness and tingling in right hand Disturbance of skin sensation Carpal tunnel syndrome of right wrist Carpal tunnel syndrome HYPOTHYROIDISM NOS Unspecified hypothyroidism PURE HYPERCHOLESTEROLEM Pure hypercholesterolemia Pre-operative examination- Primary Preoperative examination, unspecified Hypertension goal BP (blood pressure) < 140/90 Unspecified essential hypertension Pure hypercholesterolemia Hiatal hernia Diaphragmatic hernia without mention of obstruction or gangrene Controlled type 2 diabetes mellitus without complication, without long-term current use of insulin (HCC) Acquired hypothyroidism Unspecified hypothyroidism Nontoxic uninodular goiter Obesity, Class I, BMI 30-34.9 Obesity, unspecified History of DVT (deep vein thrombosis) Personal history of venous thrombosis and embolism History of total right knee replacement 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 Chronic pain of left knee- Primary Pain in joint, lower leg documented in this encounter [facility] note* Diagnosis DIABETES MELLITUS TYPE II-UNCOMPL- Primary Type II or unspecified type diabetes mellitus without mention of complication, not stated as uncontrolled HYPERTENSION NOS Unspecified essential hypertension Back pain Backache, unspecified Numbness and tingling in right hand Disturbance of skin sensation Carpal tunnel syndrome of right wrist Carpal tunnel syndrome HYPOTHYROIDISM NOS Unspecified hypothyroidism PURE HYPERCHOLESTEROLEM Pure hypercholesterolemia Pre-operative examination- Primary Preoperative examination, unspecified Hypertension goal BP (blood pressure) < 140/90 Unspecified essential hypertension Pure hypercholesterolemia Hiatal hernia Diaphragmatic hernia without mention of obstruction or gangrene Controlled type 2 diabetes mellitus without complication, without long-term current use of insulin (HCC) Acquired hypothyroidism Unspecified hypothyroidism Nontoxic uninodular goiter Obesity, Class I, BMI 30-34.9 Obesity, unspecified History of DVT (deep vein thrombosis) Personal history of venous thrombosis and embolism History of total right knee replacement 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 Postoperative visit- Primary Other specified aftercare following surgery [facility]* Diagnosis DIABETES MELLITUS TYPE II-UNCOMPL- Primary Type II or unspecified type diabetes mellitus without mention of complication, not stated as uncontrolled HYPERTENSION NOS Unspecified essential hypertension Back pain Backache, unspecified Numbness and tingling in right hand Disturbance of skin sensation Carpal tunnel syndrome of right wrist Carpal tunnel syndrome HYPOTHYROIDISM NOS Unspecified hypothyroidism PURE HYPERCHOLESTEROLEM Pure hypercholesterolemia Pre-operative examination- Primary Preoperative examination, unspecified Hypertension goal BP (blood pressure) < 140/90 Unspecified essential hypertension Pure hypercholesterolemia Hiatal hernia Diaphragmatic hernia without mention of obstruction or gangrene Controlled type 2 diabetes mellitus without complication, without long-term current use of insulin (HCC) Acquired hypothyroidism Unspecified hypothyroidism Nontoxic uninodular goiter Obesity, Class I, BMI 30-34.9 Obesity, unspecified History of DVT (deep vein thrombosis) Personal history of venous thrombosis and embolism History of total right knee replacement 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 Delayed surgical wound healing, initial encounter- Primary S/P revision of total knee, left documented in this encounter [facility] note* Diagnosis DIABETES MELLITUS TYPE II-UNCOMPL- Primary Type II or unspecified type diabetes mellitus without mention of complication, not stated as uncontrolled HYPERTENSION NOS Unspecified essential hypertension Back pain Backache, unspecified Numbness and tingling in right hand Disturbance of skin sensation Carpal tunnel syndrome of right wrist Carpal tunnel syndrome HYPOTHYROIDISM NOS Unspecified hypothyroidism PURE HYPERCHOLESTEROLEM Pure hypercholesterolemia Pre-operative examination- Primary Preoperative examination, unspecified Hypertension goal BP (blood pressure) < 140/90 Unspecified essential hypertension Pure hypercholesterolemia Hiatal hernia Diaphragmatic hernia without mention of obstruction or gangrene Controlled type 2 diabetes mellitus without complication, without long-term current use of insulin (HCC) Acquired hypothyroidism Unspecified hypothyroidism Nontoxic uninodular goiter Obesity, Class I, BMI 30-34.9 Obesity, unspecified History of DVT (deep vein thrombosis) Personal history of venous thrombosis and embolism History of total right knee replacement 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 Chronic pain of left knee- Primary Pain in joint, lower leg documented [facility] this encounter [facility]* Diagnosis DIABETES MELLITUS TYPE II-UNCOMPL- Primary Type II or unspecified type diabetes mellitus without mention of complication, not stated as uncontrolled HYPERTENSION NOS Unspecified essential hypertension Back pain Backache, unspecified Numbness and tingling in right hand Disturbance of skin sensation Carpal tunnel syndrome of right wrist Carpal tunnel syndrome HYPOTHYROIDISM NOS Unspecified hypothyroidism PURE HYPERCHOLESTEROLEM Pure hypercholesterolemia Pre-operative examination- Primary Preoperative examination, unspecified Hypertension goal BP (blood pressure) < 140/90 Unspecified essential hypertension Pure hypercholesterolemia Hiatal hernia Diaphragmatic hernia without mention of obstruction or gangrene Controlled type 2 diabetes mellitus without complication, without long-term current use of insulin (HCC) Acquired hypothyroidism Unspecified hypothyroidism Nontoxic uninodular goiter Obesity, Class I, BMI 30-34.9 Obesity, unspecified History of DVT (deep vein thrombosis) Personal history of venous thrombosis and embolism History of total right knee replacement 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 Delayed surgical wound healing, initial encounter- Primary S/P revision of total knee, left documented in this encounter [facility] note* Diagnosis DIABETES MELLITUS TYPE II-UNCOMPL- Primary Type II or unspecified type diabetes mellitus without mention of complication, not stated as uncontrolled HYPERTENSION NOS Unspecified essential hypertension Back pain Backache, unspecified Numbness and tingling in right hand Disturbance of skin sensation Carpal tunnel syndrome of right wrist Carpal tunnel syndrome HYPOTHYROIDISM NOS Unspecified hypothyroidism PURE HYPERCHOLESTEROLEM Pure hypercholesterolemia Pre-operative examination- Primary Preoperative examination, unspecified Hypertension goal BP (blood pressure) < 140/90 Unspecified essential hypertension Pure hypercholesterolemia Hiatal hernia Diaphragmatic hernia without mention of obstruction or gangrene Controlled type 2 diabetes mellitus without complication, without long-term current use of insulin (HCC) Acquired hypothyroidism Unspecified hypothyroidism Nontoxic uninodular goiter Obesity, Class I, BMI 30-34.9 Obesity, unspecified History of DVT (deep vein thrombosis) Personal history of venous thrombosis and embolism History of total right knee replacement 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 Chronic pain of left knee Pain in joint, lower leg documented in this encounter [facility] note* Diagnosis DIABETES MELLITUS TYPE II-UNCOMPL- Primary Type II or unspecified type diabetes mellitus without mention of complication, not stated as uncontrolled HYPERTENSION NOS Unspecified essential hypertension Back pain Backache, unspecified Numbness and tingling in right hand Disturbance of skin sensation Carpal tunnel syndrome of right wrist Carpal tunnel syndrome HYPOTHYROIDISM NOS Unspecified hypothyroidism PURE HYPERCHOLESTEROLEM Pure hypercholesterolemia Pre-operative examination- Primary Preoperative examination, unspecified Hypertension goal BP (blood pressure) < 140/90 Unspecified essential hypertension Pure hypercholesterolemia Hiatal hernia Diaphragmatic hernia without mention of obstruction or gangrene Controlled type 2 diabetes mellitus without complication, without long-term current use of insulin (HCC) Acquired hypothyroidism Unspecified hypothyroidism Nontoxic uninodular goiter Obesity, Class I, BMI 30-34.9 Obesity, unspecified History of DVT (deep vein thrombosis) Personal history of venous thrombosis and embolism History of total right knee replacement 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 Controlled type 2 diabetes mellitus without complication, without long-term current use of insulin (HCC)- Primary Wound healing, delayed Open wound(s) (multiple) of unspecified site(s), complicated Primary hypertension Unspecified essential hypertension Acquired hypothyroidism Unspecified hypothyroidism Screening for colon cancer Special screening for malignant neoplasms, colon documented in this encounter [facility] note* Diagnosis DIABETES MELLITUS TYPE II-UNCOMPL- Primary Type II or unspecified type diabetes mellitus without mention of complication, not stated as uncontrolled HYPERTENSION NOS Unspecified essential hypertension Back pain Backache, unspecified Numbness and tingling in right hand Disturbance of skin sensation Carpal tunnel syndrome of right wrist Carpal tunnel syndrome HYPOTHYROIDISM NOS Unspecified hypothyroidism PURE HYPERCHOLESTEROLEM Pure hypercholesterolemia Pre-operative examination- Primary Preoperative examination, unspecified Hypertension goal BP (blood pressure) < 140/90 Unspecified essential hypertension Pure hypercholesterolemia Hiatal hernia Diaphragmatic hernia without mention of obstruction or gangrene Controlled type 2 diabetes mellitus without complication, without long-term current use of insulin (HCC) Acquired hypothyroidism Unspecified hypothyroidism Nontoxic uninodular goiter Obesity, Class I, BMI 30-34.9 Obesity, unspecified History of DVT (deep vein thrombosis) Personal history of venous thrombosis and embolism History of total right knee replacement 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 History of total left knee replacement- Primary Postoperative visit Other specified aftercare following surgery [facility]* Diagnosis DIABETES MELLITUS TYPE II-UNCOMPL- Primary Type II or unspecified type diabetes mellitus without mention of complication, not stated as uncontrolled HYPERTENSION NOS Unspecified essential hypertension Back pain Backache, unspecified Numbness and tingling in right hand Disturbance of skin sensation Carpal tunnel syndrome of right wrist Carpal tunnel syndrome HYPOTHYROIDISM NOS Unspecified hypothyroidism PURE HYPERCHOLESTEROLEM Pure hypercholesterolemia Pre-operative examination- Primary Preoperative examination, unspecified Hypertension goal BP (blood pressure) < 140/90 Unspecified essential hypertension Pure hypercholesterolemia Hiatal hernia Diaphragmatic hernia without mention of obstruction or gangrene Controlled type 2 diabetes mellitus without complication, without long-term current use of insulin (HCC) Acquired hypothyroidism Unspecified hypothyroidism Nontoxic uninodular goiter Obesity, Class I, BMI 30-34.9 Obesity, unspecified History of DVT (deep vein thrombosis) Personal history of venous thrombosis and embolism History of total right knee replacement 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 Delayed surgical wound healing, initial encounter- Primary S/P revision of total knee, left [facility] Diagnosis DIABETES MELLITUS TYPE II-UNCOMPL- Primary Type II or unspecified type diabetes mellitus without mention of complication, not stated as uncontrolled HYPERTENSION NOS Unspecified essential hypertension Back pain Backache, unspecified Numbness and tingling in right hand Disturbance of skin sensation Carpal tunnel syndrome of right wrist Carpal tunnel syndrome HYPOTHYROIDISM NOS Unspecified hypothyroidism PURE HYPERCHOLESTEROLEM Pure hypercholesterolemia Pre-operative examination- Primary Preoperative examination, unspecified Hypertension goal BP (blood pressure) < 140/90 Unspecified essential hypertension Pure hypercholesterolemia Hiatal hernia Diaphragmatic hernia without mention of obstruction or gangrene Controlled type 2 diabetes mellitus without complication, without long-term current use of insulin (HCC) Acquired hypothyroidism Unspecified hypothyroidism Nontoxic uninodular goiter Obesity, Class I, BMI 30-34.9 Obesity, unspecified History of DVT (deep vein thrombosis) Personal history of venous thrombosis and embolism History of total right knee replacement 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 Stiffness of right knee- Primary Stiffness of left knee Status post revision of total replacement of left knee documented in this encounter [facility] note* Diagnosis DIABETES MELLITUS TYPE II-UNCOMPL- Primary Type II or unspecified type diabetes mellitus without mention of complication, not stated as uncontrolled HYPERTENSION NOS Unspecified essential hypertension Back pain Backache, unspecified Numbness and tingling in right hand Disturbance of skin sensation Carpal tunnel syndrome of right wrist Carpal tunnel syndrome HYPOTHYROIDISM NOS Unspecified hypothyroidism PURE HYPERCHOLESTEROLEM Pure hypercholesterolemia Pre-operative examination- Primary Preoperative examination, unspecified Hypertension goal BP (blood pressure) < 140/90 Unspecified essential hypertension Pure hypercholesterolemia Hiatal hernia Diaphragmatic hernia without mention of obstruction or gangrene Controlled type 2 diabetes mellitus without complication, without long-term current use of insulin (HCC) Acquired hypothyroidism Unspecified hypothyroidism Nontoxic uninodular goiter Obesity, Class I, BMI 30-34.9 Obesity, unspecified History of DVT (deep vein thrombosis) Personal history of venous thrombosis and embolism History of total right knee replacement 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- Primary Delayed surgical wound healing, sequela documented in this encounter [facility] note* Diagnosis DIABETES MELLITUS TYPE II-UNCOMPL- Primary Type II or unspecified type diabetes mellitus without mention of complication, not stated as uncontrolled HYPERTENSION NOS Unspecified essential hypertension Back pain Backache, unspecified Numbness and tingling in right hand Disturbance of skin sensation Carpal tunnel syndrome of right wrist Carpal tunnel syndrome HYPOTHYROIDISM NOS Unspecified hypothyroidism PURE HYPERCHOLESTEROLEM Pure hypercholesterolemia Pre-operative examination- Primary Preoperative examination, unspecified Hypertension goal BP (blood pressure) < 140/90 Unspecified essential hypertension Pure hypercholesterolemia Hiatal hernia Diaphragmatic hernia without mention of obstruction or gangrene Controlled type 2 diabetes mellitus without complication, without long-term current use of insulin (HCC) Acquired hypothyroidism Unspecified hypothyroidism Nontoxic uninodular goiter Obesity, Class I, BMI 30-34.9 Obesity, unspecified History of DVT (deep vein thrombosis) Personal history of venous thrombosis and embolism History of total right knee replacement 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 Postoperative visit- Primary Other specified aftercare following surgery [facility]* Diagnosis DIABETES MELLITUS TYPE II-UNCOMPL- Primary Type II or unspecified type diabetes mellitus without mention of complication, not stated as uncontrolled HYPERTENSION NOS Unspecified essential hypertension Back pain Backache, unspecified Numbness and tingling in right hand Disturbance of skin sensation Carpal tunnel syndrome of right wrist Carpal tunnel syndrome HYPOTHYROIDISM NOS Unspecified hypothyroidism PURE HYPERCHOLESTEROLEM Pure hypercholesterolemia Pre-operative examination- Primary Preoperative examination, unspecified Hypertension goal BP (blood pressure) < 140/90 Unspecified essential hypertension Pure hypercholesterolemia Hiatal hernia Diaphragmatic hernia without mention of obstruction or gangrene Controlled type 2 diabetes mellitus without complication, without long-term current use of insulin (HCC) Acquired hypothyroidism Unspecified hypothyroidism Nontoxic uninodular goiter Obesity, Class I, BMI 30-34.9 Obesity, unspecified History of DVT (deep vein thrombosis) Personal history of venous thrombosis and embolism History of total right knee replacement 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 Controlled type 2 diabetes mellitus without complication, without long-term current use of insulin (HCC) Primary hypertension Unspecified essential hypertension documented in this encounter [facility] note* Diagnosis DIABETES MELLITUS TYPE II-UNCOMPL- Primary Type II or unspecified type diabetes mellitus without mention of complication, not stated as uncontrolled HYPERTENSION NOS Unspecified essential hypertension Back pain Backache, unspecified Numbness and tingling in right hand Disturbance of skin sensation Carpal tunnel syndrome of right wrist Carpal tunnel syndrome HYPOTHYROIDISM NOS Unspecified hypothyroidism PURE HYPERCHOLESTEROLEM Pure hypercholesterolemia Pre-operative examination- Primary Preoperative examination, unspecified Hypertension goal BP (blood pressure) < 140/90 Unspecified essential hypertension Pure hypercholesterolemia Hiatal hernia Diaphragmatic hernia without mention of obstruction or gangrene Controlled type 2 diabetes mellitus without complication, without long-term current use of insulin (HCC) Acquired hypothyroidism Unspecified hypothyroidism Nontoxic uninodular goiter Obesity, Class I, BMI 30-34.9 Obesity, unspecified History of DVT (deep vein thrombosis) Personal history of venous thrombosis and embolism History of total right knee replacement 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 documented in this encounter [facility] note* Diagnosis DIABETES MELLITUS TYPE II-UNCOMPL- Primary Type II or unspecified type diabetes mellitus without mention of complication, not stated as uncontrolled HYPERTENSION NOS Unspecified essential hypertension Back pain Backache, unspecified Numbness and tingling in right hand Disturbance of skin sensation Carpal tunnel syndrome of right wrist Carpal tunnel syndrome HYPOTHYROIDISM NOS Unspecified hypothyroidism PURE HYPERCHOLESTEROLEM Pure hypercholesterolemia Pre-operative examination- Primary Preoperative examination, unspecified Hypertension goal BP (blood pressure) < 140/90 Unspecified essential hypertension Pure hypercholesterolemia Hiatal hernia Diaphragmatic hernia without mention of obstruction or gangrene Controlled type 2 diabetes mellitus without complication, without long-term current use of insulin (HCC) Acquired hypothyroidism Unspecified hypothyroidism Nontoxic uninodular goiter Obesity, Class I, BMI 30-34.9 Obesity, unspecified History of DVT (deep vein thrombosis) Personal history of venous thrombosis and embolism History of total right knee replacement 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 Open wound of left knee, subsequent encounter- Primary documented in this encounter [facility] note* Diagnosis DIABETES MELLITUS TYPE II-UNCOMPL- Primary Type II or unspecified type diabetes mellitus without mention of complication, not stated as uncontrolled HYPERTENSION NOS Unspecified essential hypertension Back pain Backache, unspecified Numbness and tingling in right hand Disturbance of skin sensation Carpal tunnel syndrome of right wrist Carpal tunnel syndrome HYPOTHYROIDISM NOS Unspecified hypothyroidism PURE HYPERCHOLESTEROLEM Pure hypercholesterolemia Pre-operative examination- Primary Preoperative examination, unspecified Hypertension goal BP (blood pressure) < 140/90 Unspecified essential hypertension Pure hypercholesterolemia Hiatal hernia Diaphragmatic hernia without mention of obstruction or gangrene Controlled type 2 diabetes mellitus without complication, without long-term current use of insulin (HCC) Acquired hypothyroidism Unspecified hypothyroidism Nontoxic uninodular goiter Obesity, Class I, BMI 30-34.9 Obesity, unspecified History of DVT (deep vein thrombosis) Personal history of venous thrombosis and embolism History of total right knee replacement 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 documented in this encounter [facility] note* Diagnosis DIABETES MELLITUS TYPE II-UNCOMPL- Primary Type II or unspecified type diabetes mellitus without mention of complication, not stated as uncontrolled HYPERTENSION NOS Unspecified essential hypertension Back pain Backache, unspecified Numbness and tingling in right hand Disturbance of skin sensation Carpal tunnel syndrome of right wrist Carpal tunnel syndrome HYPOTHYROIDISM NOS Unspecified hypothyroidism PURE HYPERCHOLESTEROLEM Pure hypercholesterolemia Pre-operative examination- Primary Preoperative examination, unspecified Hypertension goal BP (blood pressure) < 140/90 Unspecified essential hypertension Pure hypercholesterolemia Hiatal hernia Diaphragmatic hernia without mention of obstruction or gangrene Controlled type 2 diabetes mellitus without complication, without long-term current use of insulin (HCC) Acquired hypothyroidism Unspecified hypothyroidism Nontoxic uninodular goiter Obesity, Class I, BMI 30-34.9 Obesity, unspecified History of DVT (deep vein thrombosis) Personal history of venous thrombosis and embolism History of total right knee replacement 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 Cellulitis of left lower extremity- Primary Cellulitis and abscess of leg, except foot Status post total left knee replacement Hypoglycemia Hypoglycemia, unspecified [facility] Diagnosis DIABETES MELLITUS TYPE II-UNCOMPL- Primary Type II or unspecified type diabetes mellitus without mention of complication, not stated as uncontrolled HYPERTENSION NOS Unspecified essential hypertension Back pain Backache, unspecified Numbness and tingling in right hand Disturbance of skin sensation Carpal tunnel syndrome of right wrist Carpal tunnel syndrome HYPOTHYROIDISM NOS Unspecified hypothyroidism PURE HYPERCHOLESTEROLEM Pure hypercholesterolemia Pre-operative examination- Primary Preoperative examination, unspecified Hypertension goal BP (blood pressure) < 140/90 Unspecified essential hypertension Pure hypercholesterolemia Hiatal hernia Diaphragmatic hernia without mention of obstruction or gangrene Controlled type 2 diabetes mellitus without complication, without long-term current use of insulin (HCC) Acquired hypothyroidism Unspecified hypothyroidism Nontoxic uninodular goiter Obesity, Class I, BMI 30-34.9 Obesity, unspecified History of DVT (deep vein thrombosis) Personal history of venous thrombosis and embolism History of total right knee replacement 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- Primary documented in this encounter [facility] note* Diagnosis DIABETES MELLITUS TYPE II-UNCOMPL- Primary Type II or unspecified type diabetes mellitus without mention of complication, not stated as uncontrolled HYPERTENSION NOS Unspecified essential hypertension Back pain Backache, unspecified Numbness and tingling in right hand Disturbance of skin sensation Carpal tunnel syndrome of right wrist Carpal tunnel syndrome HYPOTHYROIDISM NOS Unspecified hypothyroidism PURE HYPERCHOLESTEROLEM Pure hypercholesterolemia Pre-operative examination- Primary Preoperative examination, unspecified Hypertension goal BP (blood pressure) < 140/90 Unspecified essential hypertension Pure hypercholesterolemia Hiatal hernia Diaphragmatic hernia without mention of obstruction or gangrene Controlled type 2 diabetes mellitus without complication, without long-term current use of insulin (HCC) Acquired hypothyroidism Unspecified hypothyroidism Nontoxic uninodular goiter Obesity, Class I, BMI 30-34.9 Obesity, unspecified History of DVT (deep vein thrombosis) Personal history of venous thrombosis and embolism History of total right knee replacement 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 PURE HYPERCHOLESTEROLEM Pure hypercholesterolemia Controlled type 2 diabetes mellitus without complication, without long-term current use of insulin (HCC) Primary hypertension Unspecified essential hypertension Acquired hypothyroidism Unspecified hypothyroidism [facility]* Diagnosis DIABETES MELLITUS TYPE II-UNCOMPL- Primary Type II or unspecified type diabetes mellitus without mention of complication, not stated as uncontrolled HYPERTENSION NOS Unspecified essential hypertension Back pain Backache, unspecified Numbness and tingling in right hand Disturbance of skin sensation Carpal tunnel syndrome of right wrist Carpal tunnel syndrome HYPOTHYROIDISM NOS Unspecified hypothyroidism PURE HYPERCHOLESTEROLEM Pure hypercholesterolemia Pre-operative examination- Primary Preoperative examination, unspecified Hypertension goal BP (blood pressure) < 140/90 Unspecified essential hypertension Pure hypercholesterolemia Hiatal hernia Diaphragmatic hernia without mention of obstruction or gangrene Controlled type 2 diabetes mellitus without complication, without long-term current use of insulin (HCC) Acquired hypothyroidism Unspecified hypothyroidism Nontoxic uninodular goiter Obesity, Class I, BMI 30-34.9 Obesity, unspecified History of DVT (deep vein thrombosis) Personal history of venous thrombosis and embolism History of total right knee replacement 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 Left knee pain, unspecified chronicity- Primary documented in this encounter [facility] note* Diagnosis DIABETES MELLITUS TYPE II-UNCOMPL- Primary Type II or unspecified type diabetes mellitus without mention of complication, not stated as uncontrolled HYPERTENSION NOS Unspecified essential hypertension Back pain Backache, unspecified Numbness and tingling in right hand Disturbance of skin sensation Carpal tunnel syndrome of right wrist Carpal tunnel syndrome HYPOTHYROIDISM NOS Unspecified hypothyroidism PURE HYPERCHOLESTEROLEM Pure hypercholesterolemia Pre-operative examination- Primary Preoperative examination, unspecified Hypertension goal BP (blood pressure) < 140/90 Unspecified essential hypertension Pure hypercholesterolemia Hiatal hernia Diaphragmatic hernia without mention of obstruction or gangrene Controlled type 2 diabetes mellitus without complication, without long-term current use of insulin (HCC) Acquired hypothyroidism Unspecified hypothyroidism Nontoxic uninodular goiter Obesity, Class I, BMI 30-34.9 Obesity, unspecified History of DVT (deep vein thrombosis) Personal history of venous thrombosis and embolism History of total right knee replacement 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- Primary [facility] Diagnosis DIABETES MELLITUS TYPE II-UNCOMPL- Primary Type II or unspecified type diabetes mellitus without mention of complication, not stated as uncontrolled HYPERTENSION NOS Unspecified essential hypertension Back pain Backache, unspecified Numbness and tingling in right hand Disturbance of skin sensation Carpal tunnel syndrome of right wrist Carpal tunnel syndrome HYPOTHYROIDISM NOS Unspecified hypothyroidism PURE HYPERCHOLESTEROLEM Pure hypercholesterolemia Pre-operative examination- Primary Preoperative examination, unspecified Hypertension goal BP (blood pressure) < 140/90 Unspecified essential hypertension Pure hypercholesterolemia Hiatal hernia Diaphragmatic hernia without mention of obstruction or gangrene Controlled type 2 diabetes mellitus without complication, without long-term current use of insulin (HCC) Acquired hypothyroidism Unspecified hypothyroidism Nontoxic uninodular goiter Obesity, Class I, BMI 30-34.9 Obesity, unspecified History of DVT (deep vein thrombosis) Personal history of venous thrombosis and embolism History of total right knee replacement 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 Left knee pain, unspecified chronicity [facility] Diagnosis DIABETES MELLITUS TYPE II-UNCOMPL- Primary Type II or unspecified type diabetes mellitus without mention of complication, not stated as uncontrolled HYPERTENSION NOS Unspecified essential hypertension Back pain Backache, unspecified Numbness and tingling in right hand Disturbance of skin sensation Carpal tunnel syndrome of right wrist Carpal tunnel syndrome HYPOTHYROIDISM NOS Unspecified hypothyroidism PURE HYPERCHOLESTEROLEM Pure hypercholesterolemia Pre-operative examination- Primary Preoperative examination, unspecified Hypertension goal BP (blood pressure) < 140/90 Unspecified essential hypertension Pure hypercholesterolemia Hiatal hernia Diaphragmatic hernia without mention of obstruction or gangrene Controlled type 2 diabetes mellitus without complication, without long-term current use of insulin (HCC) Acquired hypothyroidism Unspecified hypothyroidism Nontoxic uninodular goiter Obesity, Class I, BMI 30-34.9 Obesity, unspecified History of DVT (deep vein thrombosis) Personal history of venous thrombosis and embolism History of total right knee replacement 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 Acute cough- Primary Wheezing Chest pain, unspecified type Acute cough [facility]* Diagnosis DIABETES MELLITUS TYPE II-UNCOMPL- Primary Type II or unspecified type diabetes mellitus without mention of complication, not stated as uncontrolled HYPERTENSION NOS Unspecified essential hypertension Back pain Backache, unspecified Numbness and tingling in right hand Disturbance of skin sensation Carpal tunnel syndrome of right wrist Carpal tunnel syndrome HYPOTHYROIDISM NOS Unspecified hypothyroidism PURE HYPERCHOLESTEROLEM Pure hypercholesterolemia Pre-operative examination- Primary Preoperative examination, unspecified Hypertension goal BP (blood pressure) < 140/90 Unspecified essential hypertension Pure hypercholesterolemia Hiatal hernia Diaphragmatic hernia without mention of obstruction or gangrene Controlled type 2 diabetes mellitus without complication, without long-term current use of insulin (HCC) Acquired hypothyroidism Unspecified hypothyroidism Nontoxic uninodular goiter Obesity, Class I, BMI 30-34.9 Obesity, unspecified History of DVT (deep vein thrombosis) Personal history of venous thrombosis and embolism History of total right knee replacement 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 Acute cough [facility] Diagnostic Procedure Only (Routine) - Pending Review Specialty Diagnoses / Procedures Referred By Anjana kumar Referred To Contact [facility] Diagnoses Encounter for screening mammogram for breast cancer Procedures MAHESH SCREENING SCREENING MAMMOGRAPHY BI 2-VIEW BREAST INC Piter Greenberg APRN.CNP [address] [place] [address] [facility] [address] [place] [phone] Referral ID Status Reason Start Date Expiration Date Visits Requested Visits Authorized [id number] Pending Review Auto-Generat ed Referral 04/03/2023 05/02/2024 1 1 [facility] for referral (narrative)* Diagnostic Procedure Only (Routine) - Pending Review Specialty Diagnoses / Procedures Referred By Contac t Referred To Contact [facility] Diagnoses Fibrosis of left knee joint Procedures US ASP/INJ KNEE JT/BURSA LEFT ARTHROCENTESIS ASPIR&/INJ MAJOR JT/BURSA W/US Mart Enciso MD [address] [address] [place] [id number] Referral ID Status Reason Start Date Expiration Date Visits Requested Visits Authorized [id number] Pending Review Auto-Generat ed Referral 10/30/2023 11/28/2024 1 1 [facility] for referral (narrative)* Diagnostic Procedure Only (Routine) - Closed Specialty Diagnoses / Procedures Referred By Contac t Referred To Contact [facility] Diagnoses Fibrosis of left knee joint Procedures US ASP/INJ KNEE JT/BURSA LEFT ARTHROCENTESIS ASPIR&/INJ MAJOR JT/BURSA W/US Mart Enciso MD [address] [address] [place] [id number] Referral ID Status Reason Start Date Expiration Date V isits Requested Visits Authorized [id number] Closed Auto-Generate d Referral 10/30/2023 11/28/2024 1 1 [facility] for referral (narrative)* Diagnostic Procedure Only (Routine) - Pending Review Specialty Diagnoses / Procedures Referred By Contac t Referred To Contact [facility] Diagnoses Breast cancer screening by mammogram Procedures MAHESH SCREENING W JEFERSON SCREENING DIGITAL BREAST TOMOSYNTHESIS BI SCREENING MAMMOGRAPHY BI 2-VIEW BREAST INC Aashish Nuñez MD [address] [place] [address] [facility] [address] [place] [address] Referral ID Status Reason Start Date Expiration Date Visits Requested Visits Authorized [id number] Pending Review Auto-Generat ed Referral 10/17/2023 2024 1 1 [facility] for referral (narrative)* Diagnostic Procedure Only (Routine) - Closed Specialty Diagnoses / Procedures Referred By Elliotac t Referred To Contact X[facility] Diagnoses Left knee pain, unspecified chronicity Procedures XR KNEE POST OP 3V AP/LAT/MERCHANT LEFT RADIOLOGIC EXAMINATION KNEE 3 VIEWS Hal Hale APRN.OPENING MACHINE CLEANER [address] [address] [place] [address] Referral ID Status Reason Start Date Expiration Date V isits Requested Visits Authorized [id number] Closed Auto-Generate d Referral 10/16/2023 11/14/2024 1 1 [facility] for referral (narrative)* Outpatient Procedure (Routine) - New Request Specialty Diagnoses / Procedures Referred By Contac t Referred To Contact [facility] Diagnoses Pre-operative examination Procedures ECG COMPLETE ECG ROUTINE ECG W/LEAST 12 LDS W/I&R Leora Jaeger APRN.OPENING MACHINE CLEANER [address] [place] [address] [facility] [address] [place] [id number] Referral ID Status Reason Start Date Expiration Date Visits Requested Visits Authorized [id number] New Request Auto-Generat ed Referral 06/06/2024 06/06/2025 1 1 [facility] for referral (narrative)* Diagnostic Procedure Only (Routine) - New Request Specialty Diagnoses / Procedures Referred By Contac t Referred To Contact [facility] Diagnoses Chronic pain of left knee Procedures XR KNEE POST OP 3V AP/LAT/MERCHANT LEFT RADIOLOGIC EXAMINATION KNEE 3 VIEWS Hal Hale APRN.OPENING MACHINE CLEANER [address] [place] [address] [place] [address] Referral ID Status Reason Start Date Expiration Date Visits Requested Visits Authorized [id number] New Request Auto-Generat ed Referral 08/10/2025 1 1 [facility] for referral (narrative)* Diagnostic Procedure Only (Routine) - Closed Specialty Diagnoses / Procedures Referred By Contac t Referred To Contact [facility] Diagnoses Chronic pain of left knee Procedures XR KNEE LIMITED 2V AP/LAT LEFT RADIOLOGIC EXAMINATION KNEE 1/2 VIEWS aHl Hale APRN.CNP [address] [place] [address] [place] [address] Referral ID Status Reason Start Date Expiration Date V isits Requested Visits Authorized [id number] Closed Auto-Generate d Referral 07/24/2024 08/23/2025 1 1 [facility] for referral (narrative)No reason for referral information [facility] Phone: Reason for visit Narrative* Diagnostic Procedure Only (Routine) - Closed Specialty Diagnoses / Procedures [facility] To Contact [facility] Diagnoses Fibrosis of left knee joint Procedures US ASP/INJ KNEE JT/BURSA LEFT ARTHROCENTESIS ASPIR&/INJ MAJOR JT/BURSA W/US Mart Enciso MD [address] [address] [place] [address] Referral ID Status Reason Start Date Expiration Date V isits Requested Visits Authorized [id number] Closed Auto-Generate d Referral 10/30/2023 11/28/2024 1 1 [facility] for visit Narrative* Diagnostic Procedure Only (Routine) - Closed Specialty Diagnoses / Procedures Referred By Contgustavo t Referred To Contact [facility] Diagnoses Breast cancer screening by mammogram Procedures MAHESH SCREENING W JEFERSON SCREENING DIGITAL BREAST TOMOSYNTHESIS BI SCREENING MAMMOGRAPHY BI 2-VIEW BREAST INC Aashish Nuñez MD [address] [place] [address] [facility] [address] [place] [address] Referral ID Status Reason Start Date Expiration Date V isits Requested Visits Authorized [id number] Closed Auto-Generate d Referral 10/17/2023 2024 1 1 [facility] for visit Narrative* Diagnostic Procedure Only (Routine) - Closed Specialty Diagnoses / Procedures Referred By Contac t Referred To Contact X[facility] Diagnoses Left knee pain, unspecified chronicity Procedures XR KNEE POST OP 3V AP/LAT/MERCHANT LEFT RADIOLOGIC EXAMINATION KNEE 3 VIEWS Grater, Hal, ANTIQUE AUTOMOBILES REPAIRER.OPENING MACHINE CLEANER [address] [facility], [address] [place] [address] [place] [address] Referral ID Status Reason Start Date Expiration Date V isits Requested Visits Authorized [id number] Closed Auto-Generate d Referral 10/16/2023 11/14/2024 1 1 [facility] for visit Narrative* Diagnostic Procedure Only (Routine) - Closed Specialty Diagnoses / Procedures Referred By Contac t Referred To Contact [facility] Diagnoses Chronic pain of left knee Procedures XR KNEE LIMITED 2V AP/LAT LEFT RADIOLOGIC EXAMINATION KNEE 1/2 VIEWS Grater, Hal, ANTIQUE AUTOMOBILES REPAIRER.OPENING MACHINE CLEANER [address] [place] [address] [place] [address] Referral ID Status Reason Start Date Expiration Date V isits Requested Visits Authorized [id number] Closed Auto-Generate d Referral 06/30/2024 07/30/2025 1 1 [facility] for visit Narrative* Diagnostic Procedure Only (Routine) - Closed Specialty Diagnoses / Procedures Referred By Contac t Referred To Contact [facility] Diagnoses Chronic pain of left knee Procedures XR KNEE POST OP 3V AP/LAT/MERCHANT LEFT RADIOLOGIC EXAMINATION KNEE 3 VIEWS Grater, Hal, ANTIQUE AUTOMOBILES REPAIRER.OPENING MACHINE CLEANER [address] [place] [address] [place] [address] Referral ID Status Reason Start Date Expiration Date V isits Requested Visits Authorized [id number] Closed Auto-Generate d Referral 07/11/2024 08/10/2025 1 1 [facility] for visit Narrative* Diagnostic Procedure Only (Routine) - Closed Specialty Diagnoses / Procedures Referred By Contac t Referred To Contact [facility] Diagnoses Left knee pain, unspecified chronicity Procedures XR KNEE POST OP 3V AP/LAT/MERCHANT LEFT RADIOLOGIC EXAMINATION KNEE 3 VIEWS Hal Hale, EKTA.OPENING MACHINE CLEANER [address] [place] [address] Phone: tel: fax: [place] [id number] Referral ID Status Reason Start Date Expiration Date V isits Requested Visits Authorized [id number] Closed Auto-Generate d Referral 12/01/2024 12/31/2025 1 1 [facility] Chief Complaint and Reason for Visit Chief Complaint myasthenia gravis EORDER MYASTHENIA GRAVIS TKR/PT HAS ORDER 2 M FU PRIORITY Reason for Visit Ocular myasthenia gr daniel Ocular myasthenia gravis Chief Complaint TKR/PT HAS ORDER 2 M FU PRIORITY RIGHT KNEE - JAHAIRA PROTOCOL Reason for Visit Ocular myasthenia gr daniel Chief Complaint RT TOTAL KNEE W JAHAIRA RIGHT KNEE - JAHAIRA PROTOCOL RT TOTAL KNEE W JAHAIRA Chief Complaint RIGHT KNEE - JAHAIRA MT OTOCOL RT TOTAL KNEE W JAHAIRA 6 M FU RT TOTAL KNEE W JAHAIRA RT TOTAL KNEE W JAHAIRA RT TOTAL KNEE W JAHAIRA Reason for Visit Ocular myasthenia gr daniel Status post total right knee replacement Osteoarthritis Chief Complaint RT TOTAL KNEE W JAHAIRA RT TOTAL KNEE W JAHAIRA RT TOTAL KNEE W JAHAIRA Reason for Visit Status post total ri ght knee replacement Osteoarthritis Chief Complaint pills stuck in throa t Chief Complaint Admit Date RIVISIONT TOTAL KNEE/GASTROC FLAP Dece er 2023 11:09am RIVISIONT TOTAL KNEE/GASTROC FLAP [facility] er 2023 2:22pm RIVISIONT TOTAL KNEE/GASTROC FLAP [facility] er 2023 6:39pm RIVISIONT TOTAL KNEE/GASTROC FLAP [facility] er 2023 3:11pm RIVISIONT TOTAL KNEE/GASTROC FLAP [facility] er 2023 10:15am RIVISIONT TOTAL KNEE/GASTROC FLAP [facility] er 2023 3:22pm LLE CELLULITIS September 23, 2024 8:55pm LLE CELLULITIS September 24, 2024 6: 40am LLE CELLULITIS September 25, 2024 8: 19am LLE CELLULITIS September 26, 2024 8: 14am RIVISIONT TOTAL KNEE/GASTROC FLAP Sepuar y 2024 4:32pm RIVISIONT TOTAL KNEE/GASTROC FLAP Sepua y 2024 11:14am RIVISIONT TOTAL KNEE/GASTROC FLAP Sepua y 2024 7:57pm RIVISIONT TOTAL KNEE/GASTROC FLAP Sepua y 2024 1:45pm RIVISIONT TOTAL KNEE/GASTROC FLAP Januar y 2024 4:13pm RIVISIONT TOTAL KNEE/GASTROC FLAP Februa ry 2024 6:29pm RIVISIONT TOTAL KNEE/GASTROC FLAP Februa ry 2024 3:28pm RIVISIONT TOTAL KNEE/GASTROC FLAP Februa ry 2024 1:21pm RIVISIONT TOTAL KNEE/GASTROC FLAP Februa ry 2024 2:15pm RIVISIONT TOTAL KNEE/GASTROC FLAP Februa ry 2024 2:37pm RIVISIONT TOTAL KNEE/GASTROC FLAP November 25, 2024 1:16pm RIVISIONT TOTAL KNEE/GASTROC FLAP December 02, 2024 12:45pm RIVISIONT TOTAL KNEE/GASTROC FLAP December 16, 2024 2:00pm DROPPING EYE FOR 3 WEEKS December 18 2:25pm Reason for Visit Admit Date Debility September 23, 2024 10:15am Dehiscence of incision September 23 10:15am Diabetic polyneuropathy September 23 10:15am Essential (primary) hypertension [facility] r 2023 10:15am Gangrene associated with type 2 diabetes mellitus September 23, 2024 10:15am GERD (gastroesophageal reflux disease) D ecember 2023 10:15am History of appendectomy September 23 10:15am History of bilateral cataract extraction September 23, 2024 10:15am History of cholecystectomy August 10:15am History of hiatal hernia September 23, 2024 10:15am History of hysterectomy September 23 10:15am History of left knee surgery September 232023 10:15am [facility] 10:15am History of revision of total replacement of left knee joint September 23, 2024 10:15am Hyperlipemia September 23, 2024 10:15am Iron deficiency anemia September 23 10:15am 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 September 23, 2024 10:15am Non-smoker September 23, 2024 10:15am Ocular myasthenia gravis September 23, 2024 10:15am Status post total right knee replacement September 23, 2024 10:15am Diabetes September 23, 2024 10:15am Dyslipidemia September 23, 2024 10:15am History of DVT (deep vein thrombosis) De cember 2023 10:15am Hypothyroidism September 23, 2024 10:15am Osteoarthritis September 23, 2024 10:15am Status post revision of total replacemen t of left knee September 23, 2024 10:15am Failed total left knee replacement Decem 2023 10:15am Hypoglycemia September 23, 2024 8:55pm Hypokalemia September 23, 2024 8:55pm Left leg cellulitis September 23, 2024 8:55pm Debility October 21, 2024 1 :45pm Dehiscence of incision October 21 1:45pm Diabetic polyneuropathy October 21 1:45pm Essential (primary) hypertension October 21, 2024 1:45pm Gangrene associated with type 2 diabetes mellitus October 21, 2024 1:45pm GERD (gastroesophageal reflux disease) J anuary 2024 1:45pm History of appendectomy October 21 1:45pm History of bilateral cataract extraction October 21, 2024 1:45pm History of cholecystectomy October 21, 2024 1:45pm History of hiatal hernia October 21, 2 025 1:45pm History of hysterectomy October 21 1:45pm History of left knee surgery September 1:45pm History of partial thyroidectomy October 21, 2024 1:45pm History of revision of total replacement of left knee joint October 21, 2024 1:45pm Hyperlipemia October 21, 2024 1 :45pm Iron deficiency anemia October 21 1:45pm 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 October 21, 2024 1:45pm Non-smoker October 21, 2024 1 :45pm Ocular myasthenia gravis October 21, 2 025 1:45pm Status post total right knee replacement October 21, 2024 1:45pm Diabetes October 21, 2024 1 :45pm Dyslipidemia October 21, 2024 1 :45pm History of DVT (deep vein thrombosis) Ja nuary 2024 1:45pm Hypothyroidism October 21, 2024 1 :45pm Osteoarthritis October 21, 2024 1 :45pm Status post revision of total replacemen t of left knee October 21, 2024 1:45pm Failed total left knee replacement Janua ry 2024 1:45pm Debility November 18, 2024 2:15pm Dehiscence of incision November 18 2:15pm Diabetic polyneuropathy November 18, 2 025 2:15pm Essential (primary) hypertension 2024 2:15pm Gangrene associated with type 2 diabetes mellitus November 18, 2024 2:15pm GERD (gastroesophageal reflux disease) F ebruary 2024 2:15pm History of appendectomy November 18, 2 025 2:15pm History of bilateral cataract extraction November 18, 2024 2:15pm History of cholecystectomy October 2:15pm History of hiatal hernia November 18, 2024 2:15pm History of hysterectomy November 18, 2 025 2:15pm History of left knee surgery November 182024 2:15pm History of partial thyroidectomy 2024 2:15pm History of revision of total replacement of left knee joint November 18, 2024 2:15pm Hyperlipemia November 18, 2024 2:15pm Iron deficiency anemia November 18 2:15pm 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 November 18, 2024 2:15pm Non-smoker November 18, 2024 2:15pm Ocular myasthenia gravis November 18, 2024 2:15pm Status post total right knee replacement November 18, 2024 2:15pm Diabetes November 18, 2024 2:15pm Dyslipidemia November 18, 2024 2:15pm History of DVT (deep vein thrombosis) Fe bruary 2024 2:15pm Hypothyroidism November 18, 2024 2:15pm Osteoarthritis November 18, 2024 2:15pm Status post revision of total replacemen t of left knee November 18, 2024 2:15pm Failed total left knee replacement Febru adria 2024 2:15pm Debility December 16, 2024 2:0 0pm Dehiscence of incision December 16, 2024 2:00pm Diabetic polyneuropathy December 16, 2024 2:00pm Essential (primary) hypertension November 232024 2:00pm Gangrene associated with type 2 diabetes mellitus December 16, 2024 2:00pm GERD (gastroesophageal reflux disease) M arch 2024 2:00pm History of appendectomy December 16, 2024 2:00pm History of bilateral cataract extraction December 16, 2024 2:00pm History of cholecystectomy December 16 2:00pm History of hiatal hernia December 16 2:00pm History of hysterectomy December 16, 2024 2:00pm History of left knee surgery December 16, 2024 2:00pm History of partial thyroidectomy November 232024 2:00pm History of revision of total replacement of left knee joint December 16, 2024 2:00pm Hyperlipemia December 16, 2024 2:0 0pm Iron deficiency anemia December 16, 2024 2:00pm 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 December 16, 2024 2:00pm Non-smoker December 16, 2024 2:0 0pm Ocular myasthenia gravis December 16 2:00pm Status post total right knee replacement December 16, 2024 2:00pm Diabetes December 16, 2024 2:0 0pm Dyslipidemia December 16, 2024 2:0 0pm History of DVT (deep vein thrombosis) [facility] 2024 2:00pm Hypothyroidism December 16, 2024 2:0 0pm Osteoarthritis December 16, 2024 2:0 0pm Status post revision of total replacemen t of left knee December 16, 2024 2:00pm Failed total left knee replacement December 16, 2024 2:00pm Ocular myasthenia gravis December 18 2:25pm Chief Complaint Admit Date RIVISIONT TOTAL KNEE/GASTROC FLAP y 2024 11:14am RIVISIONT TOTAL KNEE/GASTROC FLAP y 2024 7:57pm RIVISIONT TOTAL KNEE/GASTROC FLAP y 2024 1:45pm RIVISIONT TOTAL KNEE/GASTROC FLAP Januar y 2024 4:13pm RIVISIONT TOTAL KNEE/GASTROC FLAP Februa ry 2024 6:29pm RIVISIONT TOTAL KNEE/GASTROC FLAP Februa ry 2024 3:28pm RIVISIONT TOTAL KNEE/GASTROC FLAP Februa ry 2024 1:21pm RIVISIONT TOTAL KNEE/GASTROC FLAP Februa ry 2024 2:15pm RIVISIONT TOTAL KNEE/GASTROC FLAP Februa ry 2024 2:37pm RIVISIONT TOTAL KNEE/GASTROC FLAP November 25, 2024 1:16pm RIVISIONT TOTAL KNEE/GASTROC FLAP December 02, 2024 12:45pm RIVISIONT TOTAL KNEE/GASTROC FLAP December 16, 2024 2:00pm DROPPING EYE FOR 3 WEEKS December 18 2:25pm RIVISIONT TOTAL KNEE/GASTROC FLAP December 23, 2024 1:48pm RIVISIONT TOTAL KNEE/GASTROC FLAP December 31, 2024 12:12pm RIVISIONT TOTAL KNEE/GASTROC FLAP January 07, 2025 2:44pm RIVISIONT TOTAL KNEE/GASTROC FLAP January 14, 2025 5:13pm RIVISIONT TOTAL KNEE/GASTROC FLAP January 21, 2025 1:19pm RIVISIONT TOTAL KNEE/GASTROC FLAP January 21, 2025 1:45pm RIVISIONT TOTAL KNEE/GASTROC FLAP January 7t h2024 8:22am RIVISIONT TOTAL KNEE/GASTROC FLAP January 7t h2024 1:30pm 6 wk FU February 03, 2025 1:59p m Reason for Visit Admit Date Debility October 21, 2024 1 :45pm Dehiscence of incision October 21 1:45pm Diabetic polyneuropathy October 21 1:45pm Essential (primary) hypertension October 21, 2024 1:45pm Gangrene associated with type 2 diabetes mellitus October 21, 2024 1:45pm GERD (gastroesophageal reflux disease) J anuary 2024 1:45pm History of appendectomy October 21 1:45pm History of bilateral cataract extraction October 21, 2024 1:45pm History of cholecystectomy October 21, 2024 1:45pm History of hiatal hernia October 21, 2 025 1:45pm History of hysterectomy October 21 1:45pm History of left knee surgery September 1:45pm History of partial thyroidectomy October 21, 2024 1:45pm History of revision of total replacement of left knee joint October 21, 2024 1:45pm Hyperlipemia October 21, 2024 1 :45pm Iron deficiency anemia October 21 1:45pm 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 October 21, 2024 1:45pm Non-smoker October 21, 2024 1 :45pm Ocular myasthenia gravis October 21, 2 025 1:45pm Status post total right knee replacement October 21, 2024 1:45pm Diabetes October 21, 2024 1 :45pm Dyslipidemia October 21, 2024 1 :45pm History of DVT (deep vein thrombosis) Ja nuary 2024 1:45pm Hypothyroidism October 21, 2024 1 :45pm Osteoarthritis October 21, 2024 1 :45pm Status post revision of total replacemen t of left knee October 21, 2024 1:45pm Failed total left knee replacement Janua ry 2024 1:45pm Debility November 18, 2024 2:15pm Dehiscence of incision November 18 2:15pm Diabetic polyneuropathy November 18, 2 025 2:15pm Essential (primary) hypertension 2024 2:15pm Gangrene associated with type 2 diabetes mellitus November 18, 2024 2:15pm GERD (gastroesophageal reflux disease) F ebruary 2024 2:15pm History of appendectomy November 18, 2 025 2:15pm History of bilateral cataract extraction November 18, 2024 2:15pm History of cholecystectomy October 2:15pm History of hiatal hernia November 18, 2024 2:15pm History of hysterectomy November 18, 2 025 2:15pm History of left knee surgery November 182024 2:15pm History of partial thyroidectomy 2024 2:15pm History of revision of total replacement of left knee joint November 18, 2024 2:15pm Hyperlipemia November 18, 2024 2:15pm Iron deficiency anemia November 18 2:15pm 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 November 18, 2024 2:15pm Non-smoker November 18, 2024 2:15pm Ocular myasthenia gravis November 18, 2024 2:15pm Status post total right knee replacement November 18, 2024 2:15pm Diabetes November 18, 2024 2:15pm Dyslipidemia November 18, 2024 2:15pm History of DVT (deep vein thrombosis) Fe bruary 2024 2:15pm Hypothyroidism November 18, 2024 2:15pm Osteoarthritis November 18, 2024 2:15pm Status post revision of total replacemen t of left knee November 18, 2024 2:15pm Failed total left knee replacement Febru adria 2024 2:15pm Debility December 16, 2024 2:0 0pm Dehiscence of incision December 16, 2024 2:00pm Diabetic polyneuropathy December 16, 2024 2:00pm Essential (primary) hypertension November 232024 2:00pm Gangrene associated with type 2 diabetes mellitus December 16, 2024 2:00pm GERD (gastroesophageal reflux disease) M arch 2024 2:00pm History of appendectomy December 16, 2024 2:00pm History of bilateral cataract extraction December 16, 2024 2:00pm History of cholecystectomy December 16, 2:00pm History of hiatal hernia December 16 2:00pm History of hysterectomy December 16, 2024 2:00pm History of left knee surgery December 16, 2024 2:00pm History of partial thyroidectomy November 232024 2:00pm History of revision of total replacement of left knee joint December 16, 2024 2:00pm Hyperlipemia December 16, 2024 2:0 0pm Iron deficiency anemia December 16, 2024 2:00pm 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 December 16, 2024 2:00pm Non-smoker December 16, 2024 2:0 0pm Ocular myasthenia gravis December 16 2:00pm Status post total right knee replacement December 16, 2024 2:00pm Diabetes December 16, 2024 2:0 0pm Dyslipidemia December 16, 2024 2:0 0pm History of DVT (deep vein thrombosis) [facility] 2024 2:00pm Hypothyroidism December 16, 2024 2:0 0pm Osteoarthritis December 16, 2024 2:0 0pm Status post revision of total replacemen t of left knee December 16, 2024 2:00pm Failed total left knee replacement December 16, 2024 2:00pm Ocular myasthenia gravis December 18 2:25pm Debility January 21, 2025 1:4 5pm Dehiscence of incision January 21, 2025 1:45pm Diabetic polyneuropathy January 21, 2025 1:45pm Essential (primary) hypertension December 252024 1:45pm Gangrene associated with type 2 diabetes mellitus January 21, 2025 1:45pm GERD (gastroesophageal reflux disease) A pril 2024 1:45pm History of appendectomy January 21, 2025 1:45pm History of bilateral cataract extraction January 21, 2025 1:45pm History of cholecystectomy January 21, 1:45pm History of hiatal hernia January 21 1:45pm History of hysterectomy January 21, 2025 1:45pm History of left knee surgery January 21, 2025 1:45pm History of partial thyroidectomy December 252024 1:45pm History of revision of total replacement of left knee joint January 21, 2025 1:45pm Hyperlipemia January 21, 2025 1:4 5pm Iron deficiency anemia January 21, 2025 1:45pm 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 January 21, 2025 1:45pm Non-smoker January 21, 2025 1:4 5pm Ocular myasthenia gravis January 21 1:45pm Status post total left knee replacement January 21, 2025 1:45pm Status post total right knee replacement January 21, 2025 1:45pm Diabetes January 21, 2025 1:4 5pm Dyslipidemia January 21, 2025 1:4 5pm History of DVT (deep vein thrombosis) Ap ril 2024 1:45pm HTN (hypertension) January 21, 2025 1:4 5pm Hypothyroidism January 21, 2025 1:4 5pm Osteoarthritis January 21, 2025 1:4 5pm Status post revision of total replacemen t of left knee January 21, 2025 1:45pm Failed total left knee replacement January 21, 2025 1:45pm Dehiscence of incision January 28, 2025 8:2 2am Diabetic polyneuropathy January 28, 2025 8: 22am Essential (primary) hypertension January 8:22am GERD (gastroesophageal reflux disease) M ay 2024 8:22am History of appendectomy January 28, 2025 8: 22am History of bilateral cataract extraction January 28, 2025 8:22am History of cholecystectomy January 28, 2025 8:22am History of hiatal hernia January 28, 2025 8 :22am History of hysterectomy January 28, 2025 8: 22am History of left knee surgery January 28 8:22am History of revision of total replacement of left knee joint January 28, 2025 8:22am Hyperlipemia January 28, 2025 8:22am Iron deficiency anemia January 28, 2025 8:2 2am 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 January 28, 2025 8:22am Ocular myasthenia gravis January 28, 2025 8 :22am Status post total left knee replacement January 28, 2025 8:22am Status post total right knee replacement January 28, 2025 8:22am Diabetes January 28, 2025 8:22am Dyslipidemia January 28, 2025 8:22am History of DVT (deep vein thrombosis) Ma 2024 8:22am HTN (hypertension) January 28, 2025 8:22am Hypothyroidism January 28, 2025 8:22am Osteoarthritis January 28, 2025 8:22am Chief Complaint Admit Date RIVISIONT TOTAL KNEE/GASTROC FLAP y 2024 7:57pm RIVISIONT TOTAL KNEE/GASTROC FLAP Sepuar y 2024 1:45pm RIVISIONT TOTAL KNEE/GASTROC FLAP Januar y 2024 4:13pm RIVISIONT TOTAL KNEE/GASTROC FLAP Februa ry 2024 6:29pm RIVISIONT TOTAL KNEE/GASTROC FLAP Februa ry 2024 3:28pm RIVISIONT TOTAL KNEE/GASTROC FLAP Februa ry 2024 1:21pm RIVISIONT TOTAL KNEE/GASTROC FLAP Februa 2024 2:15pm RIVISIONT TOTAL KNEE/GASTROC FLAP Februa ry 2024 2:37pm RIVISIONT TOTAL KNEE/GASTROC FLAP November 25, 2024 1:16pm RIVISIONT TOTAL KNEE/GASTROC FLAP December 02, 2024 12:45pm RIVISIONT TOTAL KNEE/GASTROC FLAP December 16, 2024 2:00pm DROPPING EYE FOR 3 WEEKS December 18 2:25pm RIVISIONT TOTAL KNEE/GASTROC FLAP December 23, 2024 1:48pm RIVISIONT TOTAL KNEE/GASTROC FLAP December 31, 2024 12:12pm RIVISIONT TOTAL KNEE/GASTROC FLAP January 07, 2025 2:44pm RIVISIONT TOTAL KNEE/GASTROC FLAP January 14, 2025 5:13pm RIVISIONT TOTAL KNEE/GASTROC FLAP January 21, 2025 1:19pm RIVISIONT TOTAL KNEE/GASTROC FLAP January 21, 2025 1:45pm RIVISIONT TOTAL KNEE/GASTROC FLAP January 1:30pm 6 wk FU February 03, 2025 1:59p m RIVISIONT TOTAL KNEE/GASTROC FLAP February 042024 2:00pm RIVISIONT TOTAL KNEE/GASTROC FLAP February 042024 7:07pm L CALF SWELLING RULE OUT DVT (STAT) February 06, 2025 12:50pm Reason for Visit Admit Date Debility October 21, 2024 1 :45pm Dehiscence of incision October 21 1:45pm Diabetic polyneuropathy October 21 1:45pm Essential (primary) hypertension October 21, 2024 1:45pm Gangrene associated with type 2 diabetes mellitus October 21, 2024 1:45pm GERD (gastroesophageal reflux disease) J anuary 2024 1:45pm History of appendectomy October 21 1:45pm History of bilateral cataract extraction October 21, 2024 1:45pm History of cholecystectomy October 21, 2024 1:45pm History of hiatal hernia October 21, 2 025 1:45pm History of hysterectomy October 21 1:45pm History of left knee surgery September 1:45pm History of partial thyroidectomy October 21, 2024 1:45pm History of revision of total replacement of left knee joint October 21, 2024 1:45pm Hyperlipemia October 21, 2024 1 :45pm Iron deficiency anemia October 21 1:45pm 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 October 21, 2024 1:45pm Non-smoker October 21, 2024 1 :45pm Ocular myasthenia gravis October 21, 2 025 1:45pm Status post total right knee replacement October 21, 2024 1:45pm Diabetes October 21, 2024 1 :45pm Dyslipidemia October 21, 2024 1 :45pm History of DVT (deep vein thrombosis) Ja nuary 2024 1:45pm Hypothyroidism October 21, 2024 1 :45pm Osteoarthritis October 21, 2024 1 :45pm Status post revision of total replacemen t of left knee October 21, 2024 1:45pm Failed total left knee replacement Janua ry 2024 1:45pm Debility November 18, 2024 2:15pm Dehiscence of incision November 18 2:15pm Diabetic polyneuropathy November 18, 2 025 2:15pm Essential (primary) hypertension 2024 2:15pm Gangrene associated with type 2 diabetes mellitus November 18, 2024 2:15pm GERD (gastroesophageal reflux disease) F ebruary 2024 2:15pm History of appendectomy November 18, 2 025 2:15pm History of bilateral cataract extraction November 18, 2024 2:15pm History of cholecystectomy October 2:15pm History of hiatal hernia November 18, 2024 2:15pm History of hysterectomy November 18, 2 025 2:15pm History of left knee surgery November 182024 2:15pm History of partial thyroidectomy 2024 2:15pm History of revision of total replacement of left knee joint November 18, 2024 2:15pm Hyperlipemia November 18, 2024 2:15pm Iron deficiency anemia November 18 2:15pm 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 November 18, 2024 2:15pm Non-smoker November 18, 2024 2:15pm Ocular myasthenia gravis November 18, 2024 2:15pm Status post total right knee replacement November 18, 2024 2:15pm Diabetes November 18, 2024 2:15pm Dyslipidemia November 18, 2024 2:15pm History of DVT (deep vein thrombosis) Fe bruary 2024 2:15pm Hypothyroidism November 18, 2024 2:15pm Osteoarthritis November 18, 2024 2:15pm Status post revision of total replacemen t of left knee November 18, 2024 2:15pm Failed total left knee replacement Febru adria 2024 2:15pm Debility December 16, 2024 2:0 0pm Dehiscence of incision December 16, 2024 2:00pm Diabetic polyneuropathy December 16, 2024 2:00pm Essential (primary) hypertension November 232024 2:00pm Gangrene associated with type 2 diabetes mellitus December 16, 2024 2:00pm GERD (gastroesophageal reflux disease) M arch 2024 2:00pm History of appendectomy December 16, 2024 2:00pm History of bilateral cataract extraction December 16, 2024 2:00pm History of cholecystectomy December 16, 2:00pm History of hiatal hernia December 16 2:00pm History of hysterectomy December 16, 2024 2:00pm History of left knee surgery December 16, 2024 2:00pm History of partial thyroidectomy November 232024 2:00pm History of revision of total replacement of left knee joint December 16, 2024 2:00pm Hyperlipemia December 16, 2024 2:0 0pm Iron deficiency anemia December 16, 2024 2:00pm 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 December 16, 2024 2:00pm Non-smoker December 16, 2024 2:0 0pm Ocular myasthenia gravis December 16 2:00pm Status post total right knee replacement December 16, 2024 2:00pm Diabetes December 16, 2024 2:0 0pm Dyslipidemia December 16, 2024 2:0 0pm History of DVT (deep vein thrombosis) [facility] 2024 2:00pm Hypothyroidism December 16, 2024 2:0 0pm Osteoarthritis December 16, 2024 2:0 0pm Status post revision of total replacemen t of left knee December 16, 2024 2:00pm Failed total left knee replacement December 16, 2024 2:00pm Ocular myasthenia gravis December 18 2:25pm Debility January 21, 2025 1:4 5pm Dehiscence of incision January 21, 2025 1:45pm Diabetic polyneuropathy January 21, 2025 1:45pm Essential (primary) hypertension December 252024 1:45pm Gangrene associated with type 2 diabetes mellitus January 21, 2025 1:45pm GERD (gastroesophageal reflux disease) A pril 2024 1:45pm History of appendectomy January 21, 2025 1:45pm History of bilateral cataract extraction January 21, 2025 1:45pm History of cholecystectomy January 21, 025 1:45pm History of hiatal hernia January 21 1:45pm History of hysterectomy January 21, 2025 1:45pm History of left knee surgery January 21, 2025 1:45pm History of partial thyroidectomy December 252024 1:45pm History of revision of total replacement of left knee joint January 21, 2025 1:45pm Hyperlipemia January 21, 2025 1:4 5pm Iron deficiency anemia January 21, 2025 1:45pm 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 January 21, 2025 1:45pm Non-smoker January 21, 2025 1:4 5pm Ocular myasthenia gravis January 21 1:45pm Status post total left knee replacement January 21, 2025 1:45pm Status post total right knee replacement January 21, 2025 1:45pm Diabetes January 21, 2025 1:4 5pm Dyslipidemia January 21, 2025 1:4 5pm History of DVT (deep vein thrombosis) Ap ril 2024 1:45pm HTN (hypertension) January 21, 2025 1:4 5pm Hypothyroidism January 21, 2025 1:4 5pm Osteoarthritis January 21, 2025 1:4 5pm Status post revision of total replacemen t of left knee January 21, 2025 1:45pm Failed total left knee replacement January 21, 2025 1:45pm Ocular myasthenia gravis February 03, 2025 1:59pm Dehiscence of incision February 04, 2025 2: 00pm Diabetic polyneuropathy February 04, 2025 2 :00pm Essential (primary) hypertension January 2:00pm GERD (gastroesophageal reflux disease) M ay 2024 2:00pm History of appendectomy February 04, 2025 2 :00pm History of bilateral cataract extraction February 04, 2025 2:00pm History of cholecystectomy February 04 2:00pm History of hiatal hernia February 04, 2025 2:00pm History of hysterectomy February 04, 2025 2 :00pm History of left knee surgery February 04, 025 2:00pm History of revision of total replacement of left knee joint February 04, 2025 2:00pm Hyperlipemia February 04, 2025 2:00p m Iron deficiency anemia February 04, 2025 2: 00pm 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 February 04, 2025 2:00pm Ocular myasthenia gravis February 04, 2025 2:00pm Status post total left knee replacement February 04, 2025 2:00pm Status post total right knee replacement February 04, 2025 2:00pm Diabetes February 04, 2025 2:00p m Dyslipidemia February 04, 2025 2:00p m History of DVT (deep vein thrombosis) Ma y 2024 2:00pm HTN (hypertension) February 04, 2025 2:00p m Hypothyroidism February 04, 2025 2:00p m Osteoarthritis February 04, 2025 2:00p m Chief Complaint Admit Date RIVISIONT TOTAL KNEE/GASTROC FLAP r y 2024 1:45pm RIVISIONT TOTAL KNEE/GASTROC FLAP Januar y 2024 4:13pm RIVISIONT TOTAL KNEE/GASTROC FLAP Februa ry 2024 6:29pm RIVISIONT TOTAL KNEE/GASTROC FLAP Februa ry 2024 3:28pm RIVISIONT TOTAL KNEE/GASTROC FLAP Februa ry 2024 1:21pm RIVISIONT TOTAL KNEE/GASTROC FLAP Februa ry 2024 2:15pm RIVISIONT TOTAL KNEE/GASTROC FLAP Februa ry 2024 2:37pm RIVISIONT TOTAL KNEE/GASTROC FLAP November 25, 2024 1:16pm RIVISIONT TOTAL KNEE/GASTROC FLAP December 02, 2024 12:45pm RIVISIONT TOTAL KNEE/GASTROC FLAP December 16, 2024 2:00pm DROPPING EYE FOR 3 WEEKS December 18 2:25pm RIVISIONT TOTAL KNEE/GASTROC FLAP December 23, 2024 1:48pm RIVISIONT TOTAL KNEE/GASTROC FLAP December 31, 2024 12:12pm RIVISIONT TOTAL KNEE/GASTROC FLAP January 07, 2025 2:44pm RIVISIONT TOTAL KNEE/GASTROC FLAP January 14, 2025 5:13pm RIVISIONT TOTAL KNEE/GASTROC FLAP January 21, 2025 1:19pm RIVISIONT TOTAL KNEE/GASTROC FLAP January 21, 2025 1:45pm RIVISIONT TOTAL KNEE/GASTROC FLAP January 1:30pm 6 wk FU February 03, 2025 1:59p m RIVISIONT TOTAL KNEE/GASTROC FLAP February 042024 7:07pm L CALF SWELLING RULE OUT DVT (STAT) February 06, 2025 12:50pm RIVISIONT TOTAL KNEE/GASTROC FLAP February 182024 1:45pm Reason for Visit Admit Date Debility October 21, 2024 1 :45pm Dehiscence of incision October 21 1:45pm Diabetic polyneuropathy October 21 1:45pm Essential (primary) hypertension October 21, 2024 1:45pm Gangrene associated with type 2 diabetes mellitus October 21, 2024 1:45pm GERD (gastroesophageal reflux disease) J anuary 2024 1:45pm History of appendectomy October 21 1:45pm History of bilateral cataract extraction October 21, 2024 1:45pm History of cholecystectomy October 21, 2024 1:45pm History of hiatal hernia October 21, 2 025 1:45pm History of hysterectomy October 21 1:45pm History of left knee surgery September 1:45pm History of partial thyroidectomy October 21, 2024 1:45pm History of revision of total replacement of left knee joint October 21, 2024 1:45pm Hyperlipemia October 21, 2024 1 :45pm Iron deficiency anemia October 21 1:45pm 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 October 21, 2024 1:45pm Non-smoker October 21, 2024 1 :45pm Ocular myasthenia gravis October 21, 2 025 1:45pm Status post total right knee replacement October 21, 2024 1:45pm Diabetes October 21, 2024 1 :45pm Dyslipidemia October 21, 2024 1 :45pm History of DVT (deep vein thrombosis) Ja nuary 2024 1:45pm Hypothyroidism October 21, 2024 1 :45pm Osteoarthritis October 21, 2024 1 :45pm Status post revision of total replacemen t of left knee October 21, 2024 1:45pm Failed total left knee replacement Janua ry 2024 1:45pm Debility November 18, 2024 2:15pm Dehiscence of incision November 18 2:15pm Diabetic polyneuropathy November 18, 2 025 2:15pm Essential (primary) hypertension 2024 2:15pm Gangrene associated with type 2 diabetes mellitus November 18, 2024 2:15pm GERD (gastroesophageal reflux disease) F ebruary 2024 2:15pm History of appendectomy November 18, 2 025 2:15pm History of bilateral cataract extraction November 18, 2024 2:15pm History of cholecystectomy October 2:15pm History of hiatal hernia November 18, 2024 2:15pm History of hysterectomy November 18, 2 025 2:15pm History of left knee surgery November 182024 2:15pm History of partial thyroidectomy 2024 2:15pm History of revision of total replacement of left knee joint November 18, 2024 2:15pm Hyperlipemia November 18, 2024 2:15pm Iron deficiency anemia November 18 2:15pm 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 November 18, 2024 2:15pm Non-smoker November 18, 2024 2:15pm Ocular myasthenia gravis November 18, 2024 2:15pm Status post total right knee replacement November 18, 2024 2:15pm Diabetes November 18, 2024 2:15pm Dyslipidemia November 18, 2024 2:15pm History of DVT (deep vein thrombosis) Fe bruary 2024 2:15pm Hypothyroidism November 18, 2024 2:15pm Osteoarthritis November 18, 2024 2:15pm Status post revision of total replacemen t of left knee November 18, 2024 2:15pm Failed total left knee replacement Febru adria2024 2:15pm Debility December 16, 2024 2:0 0pm Dehiscence of incision December 16, 2024 2:00pm Diabetic polyneuropathy December 16, 2024 2:00pm Essential (primary) hypertension November 232024 2:00pm Gangrene associated with type 2 diabetes mellitus December 16, 2024 2:00pm GERD (gastroesophageal reflux disease) M arch 2024 2:00pm History of appendectomy December 16, 2024 2:00pm History of bilateral cataract extraction December 16, 2024 2:00pm History of cholecystectomy December 16, 2:00pm History of hiatal hernia December 16 2:00pm History of hysterectomy December 16, 2024 2:00pm History of left knee surgery December 16, 2024 2:00pm History of partial thyroidectomy November 232024 2:00pm History of revision of total replacement of left knee joint December 16, 2024 2:00pm Hyperlipemia December 16, 2024 2:0 0pm Iron deficiency anemia December 16, 2024 2:00pm 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 December 16, 2024 2:00pm Non-smoker December 16, 2024 2:0 0pm Ocular myasthenia gravis December 16 2:00pm Status post total right knee replacement December 16, 2024 2:00pm Diabetes December 16, 2024 2:0 0pm Dyslipidemia December 16, 2024 2:0 0pm History of DVT (deep vein thrombosis) [facility] 2024 2:00pm Hypothyroidism December 16, 2024 2:0 0pm Osteoarthritis December 16, 2024 2:0 0pm Status post revision of total replacemen t of left knee December 16, 2024 2:00pm Failed total left knee replacement December 16, 2024 2:00pm Ocular myasthenia gravis December 18 2:25pm Debility January 21, 2025 1:4 5pm Dehiscence of incision January 21, 2025 1:45pm Diabetic polyneuropathy January 21, 2025 1:45pm Essential (primary) hypertension December 252024 1:45pm Gangrene associated with type 2 diabetes mellitus January 21, 2025 1:45pm GERD (gastroesophageal reflux disease) A pril 2024 1:45pm History of appendectomy January 21, 2025 1:45pm History of bilateral cataract extraction January 21, 2025 1:45pm History of cholecystectomy January 21 025 1:45pm History of hiatal hernia January 21 1:45pm History of hysterectomy January 21, 2025 1:45pm History of left knee surgery January 21, 2025 1:45pm History of partial thyroidectomy December 252024 1:45pm History of revision of total replacement of left knee joint January 21, 2025 1:45pm Hyperlipemia January 21, 2025 1:4 5pm Iron deficiency anemia January 21, 2025 1:45pm 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 January 21, 2025 1:45pm Non-smoker January 21, 2025 1:4 5pm Ocular myasthenia gravis January 21 1:45pm Status post total left knee replacement January 21, 2025 1:45pm Status post total right knee replacement January 21, 2025 1:45pm Diabetes January 21, 2025 1:4 5pm Dyslipidemia January 21, 2025 1:4 5pm History of DVT (deep vein thrombosis) Ap 2024 1:45pm HTN (hypertension) January 21, 2025 1:4 5pm Hypothyroidism January 21, 2025 1:4 5pm Osteoarthritis January 21, 2025 1:4 5pm Status post revision of total replacemen t of left knee January 21, 2025 1:45pm Failed total left knee replacement January 21, 2025 1:45pm Ocular myasthenia gravis February 03, 2025 1:59pm Dehiscence of incision February 18, 2025 1: 45pm Diabetic polyneuropathy February 18, 2025 1 :45pm Essential (primary) hypertension January 1:45pm GERD (gastroesophageal reflux disease) M ay 2024 1:45pm History of appendectomy February 18, 2025 1 :45pm History of bilateral cataract extraction February 18, 2025 1:45pm History of cholecystectomy February 18 1:45pm History of hiatal hernia February 18, 2025 1:45pm History of hysterectomy February 18, 2025 1 :45pm History of left knee surgery February 18, 2 025 1:45pm History of revision of total replacement of left knee joint February 18, 2025 1:45pm Hyperlipemia February 18, 2025 1:45p m Iron deficiency anemia February 18, 2025 1: 45pm 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 February 18, 2025 1:45pm Ocular myasthenia gravis February 18, 2025 1:45pm Status post total left knee replacement February 18, 2025 1:45pm Status post total right knee replacement February 18, 2025 1:45pm Diabetes February 18, 2025 1:45p m Dyslipidemia February 18, 2025 1:45p m History of DVT (deep vein thrombosis) Ma y 2024 1:45pm HTN (hypertension) February 18, 2025 1:45p m Hypothyroidism February 18, 2025 1:45p m Osteoarthritis February 18, 2025 1:45p m Chief Complaint Admit Date RIVISIONT TOTAL KNEE/GASTROC FLAP Januar y 2024 1:45pm RIVISIONT TOTAL KNEE/GASTROC FLAP Januar y 2024 4:13pm RIVISIONT TOTAL KNEE/GASTROC FLAP Februa ry 2024 6:29pm RIVISIONT TOTAL KNEE/GASTROC FLAP Februa ry 2024 3:28pm RIVISIONT TOTAL KNEE/GASTROC FLAP Februa ry 2024 1:21pm RIVISIONT TOTAL KNEE/GASTROC FLAP Februa ry 2024 2:15pm RIVISIONT TOTAL KNEE/GASTROC FLAP Februa ry 2024 2:37pm RIVISIONT TOTAL KNEE/GASTROC FLAP November 25, 2024 1:16pm RIVISIONT TOTAL KNEE/GASTROC FLAP December 02, 2024 12:45pm RIVISIONT TOTAL KNEE/GASTROC FLAP December 16, 2024 2:00pm DROPPING EYE FOR 3 WEEKS December 18 2:25pm RIVISIONT TOTAL KNEE/GASTROC FLAP December 23, 2024 1:48pm RIVISIONT TOTAL KNEE/GASTROC FLAP December 31, 2024 12:12pm RIVISIONT TOTAL KNEE/GASTROC FLAP January 07, 2025 2:44pm RIVISIONT TOTAL KNEE/GASTROC FLAP January 14, 2025 5:13pm RIVISIONT TOTAL KNEE/GASTROC FLAP January 21, 2025 1:19pm RIVISIONT TOTAL KNEE/GASTROC FLAP January 21, 2025 1:45pm RIVISIONT TOTAL KNEE/GASTROC FLAP January 1:30pm 6 wk FU February 03, 2025 1:59p m RIVISIONT TOTAL KNEE/GASTROC FLAP February 042024 7:07pm L CALF SWELLING RULE OUT DVT (STAT) February 06, 2025 12:50pm RIVISIONT TOTAL KNEE/GASTROC FLAP February 182024 1:45pm SOB February 18, 2025 3:30p m Family History No Family History Records Found Relationship Condition Age at Onset Recorded Date/T chalo Unknown Family History?- Unknown January 14, 2015 11:27am Family History?Dementia Unknown Apri l 2014 11:27am Family History?Dementia Unknown Emir h 2021 3:09pm Family History?Heart Disease Unknown January 14, 2015 11:27am Relationship Condition Age at Onset Recorded Date/T chalo Unknown Family History?- Unknown January 14, 2015 10:27am Family History?Dementia Unknown Apri l 2014 10:27am Family History?Dementia Unknown Emir h 2021 2:09pm Family History?Heart Disease Unknown January 14, 2015 10:27am Advance Directives No Advanced Directives Records Found Date Activated Date Inactivated Comments 06/19/2024 9:01 PM 06/27/2024 8:59 PM Question Answer Comments Full Code Order Discussed With: Discussion Not M edically Appropriate Advance Directive Response Recorded Date/ Time Advance Directives Yes November 22 3:09pm Living Will Yes November 22, 2021 3:09pm Power of Manager Casino Yes November 22 3:09pm Advance Directive Response Recorded Date/ Time Advance Directives Yes November 22 3:09pm Living Will Yes February 06, 2022 1 1:17am Power of Manager [employer] Yes February 06, 2022 11:17am Advance Directive Response Recorded Date/ Time Name of Medical Power of Manager Casino ILIR solis February 06, 2022 11:17am Advance Directives Yes November 22 3:09pm Living Will Yes November 22, 2021 3:09pm Power of Manager Casino Yes November 22 3:09pm Advance Directive Response Recorded Date/ Time Name of Medical Power of Manager Casino ILIR Evans es February 06, 2022 11:17am Name of Medical Power of Manager Casino Donna José Miguel June 07, 2022 2:59pm Advance Directives Yes November 22 3:09pm Living Will Yes June 07, 2022 2:59pm Power of Manager [employer] Yes May 2:59pm Advance Directive Response Recorded Date/ Time Name of Medical Power of Manager Casino Donna José Miguel June 07, 2022 1:59pm Advance Directives Yes November 22 2:09pm Living Will Yes June 07, 2022 1:59pm Power of Manager [employer] Yes May 1:59pm Advance Directive Response Recorded Date/ Time Advance Directives Yes November 22 3:09pm Living Will Yes December 05, 2023 11:25pm Power of Manager Casino Yes December 04 11:25pm Name of Medical Power of Manager Casino Donna José Miguel December 05, 2023 11:25pm Date Activated Date Inactivated Comments 06/19/2024 9:01 PM Date Activated Date Inactivated Comments 06/19/2024 9:01 PM 06/27/2024 8:59 PM Question Answer Comments Full Code Order Discussed With: Discussion Not M edically Appropriate Advance Directive Response Recorded Date/ Time Living Will Yes August 24 1:30am Do you have a Healthcare Power of Manager Casino? Yes August 24, 2024 1:30am Living Will Yes October 25 2:51am Do you have a Healthcare Power of Manager Casino? Yes October 25, 2024 2:51am Living Will Yes September 23 11:42pm Do you have a Healthcare Power of Manager Casino? Yes September 23, 2024 11:42pm Name of Medical Power of Manager Casino DONNA JOSÉ MIGUEL September 23, 2024 11:42pm Living Will Yes September 24 1:18am Do you have a Healthcare Power of Manager Casino? Yes September 24, 2024 1:18am Living Will Yes November 22, 2024 2:09am Do you have a Healthcare Power of Manager Casino? Yes November 22, 2024 2:09am Advance Directives Yes November 22 3:09pm Advance Directive Response Recorded Date/ Time Living Will Yes October 25 2:51am Do you have a Healthcare Power of Manager Casino? Yes October 25, 2024 2:51am Living Will Yes September 24 1:18am Do you have a Healthcare Power of Manager Casino? Yes September 24, 2024 1:18am Living Will Yes November 22, 2024 2:09am Do you have a Healthcare Power of Manager Casino? Yes November 22, 2024 2:09am Living Will Yes December 23, 2024 12:45am Do you have a Healthcare Power of Manager Casino? Yes December 23, 2024 12:45am Living Will Yes January 22, 2025 12 :36am Do you have a Healthcare Power of Manager Casino? Yes January 22, 2025 12:36am Advance Directives Yes November 22 3:09pm Advance Directive Response Recorded Date/ Time Living Will Yes October 25 2:51am Do you have a Healthcare Power of Manager Casino? Yes October 25, 2024 2:51am Living Will Yes September 24 1:18am Do you have a Healthcare Power of Manager Casino? Yes September 24, 2024 1:18am Living Will Yes November 22, 2024 2:09am Do you have a Healthcare Power of Manager Casino? Yes November 22, 2024 2:09am Living Will Yes December 23, 2024 12:45am Do you have a Healthcare Power of Manager Casino? Yes December 23, 2024 12:45am Living Will Yes January 22, 2025 12 :36am Do you have a Healthcare Power of Manager Casino? Yes January 22, 2025 12:36am Do you have a Healthcare Power of Manager Casino? No February 18, 2025 3:34pm Advance Directives Yes November 22 3:09pm Reason for Referral Specialty Diagnoses / Procedures Referred By Anjana t Referred To Contact Diagnoses Fibrosis of left knee joint Procedures REFER TO P[facility] / [facility] - PREOPERATIVE OPTIMIZATION OFFICE/OUTPATIENT [facility] 60 MINUTES Mart Enciso MD [address] [address] Referral ID Status Reason Start Date Expiration Date Visits Requested Visits Authorized [id number] Authorized PCP Requested Referral 04/17/2024 04/17/2025 1 1 Specialty Diagnoses / Procedures Referred By Contac t Referred To Contact [facility] Diagnoses Stiffness of left knee Status post revision of total replacement of left knee Procedures CONSULT TO PHYSICAL THERAPY PHYSICAL THERAPY EVALUATION HIGH COMPLEX 45 MINS Hal Hale APRN.OPENING MACHINE [employer] [address] [place] [address] [facility] [place] [address] [place] [id number] Referral ID Status Reason Start Date Expiration Date Visits Requested Visits Authorized [id number] Pending Review Auto-Generat ed Referral 4 08/19/2025 1 1 Specialty Diagnoses / Procedures Referred By Contac t Referred To Contact [facility] Diagnoses Status post revision of total replacement of left knee Procedures CONSULT TO PHYSICAL THERAPY PHYSICAL THERAPY EVALUATION HIGH COMPLEX 45 MINS Mart Enciso MD [address] [place] [address] [facility] [address] [address] Referral ID Status Reason Start Date Expiration Date Visits Requested Visits Authorized [id number] Pending Review Auto-Generat ed Referral 10/07/2024 10/07/2025 1 1 Summary Purpose Additional Source Comments Goals (unrecognized section and content) Goals may be documented in a n alternate sectionGoals may be documented in an alternate sectionGoals may be documented in an alternate sectionGoals may be documented in an alternate sectionGoals may be documented in an alternate sectionGoals may be documented in an alternate sectionGoals may be documented in an alternate sectionGoals may be documented in an alternate sectionGoals may be documented in an alternate sectionGoals may be documented in an alternate section Source Comments (unrecognize d section and content) In the event this informatio n is protected by the Federal Confidentiality of Alcohol and Drug Abuse Patient Records regulations: The Federal rules restrict any use of the information to criminally investigate or prosecute any alcohol or drug abuse patient.[facility] the event this information is protected by the Federal Confidentiality of Alcohol and Drug Abuse Patient Records regulations: The Federal rules restrict any use of the information to criminally investigate or prosecute any alcohol or drug abuse patient.[facility] HospitalIn the event this information is protected by the Federal Confidentiality of Alcohol and Drug Abuse Patient Records regulations: The Federal rules restrict any use of the information to criminally investigate or prosecute any alcohol or drug abuse patient.[facility] HospitalIn the event this information is protected by the Federal Confidentiality of Alcohol and Drug Abuse Patient Records regulations: The Federal rules restrict any use of the information to criminally investigate or prosecute any alcohol or drug abuse patient.[facility] HospitalIn the event this information is protected by the Federal Confidentiality of Alcohol and Drug Abuse Patient Records regulations: The Federal rules restrict any use of the information to criminally investigate or prosecute any alcohol or drug abuse patient.[facility] HospitalIn the event this information is protected by the Federal Confidentiality of Alcohol and Drug Abuse Patient Records regulations: The Federal rules restrict any use of the information to criminally investigate or prosecute any alcohol or drug abuse patient.[facility] HospitalIn the event this information is protected by the Federal Confidentiality of Alcohol and Drug Abuse Patient Records regulations: The Federal rules restrict any use of the information to criminally investigate or prosecute any alcohol or drug abuse patient.[facility] HospitalIn the event this information is protected by the Federal Confidentiality of Alcohol and Drug Abuse Patient Records regulations: The Federal rules restrict any use of the information to criminally investigate or prosecute any alcohol or drug abuse patient.[facility] HospitalIn the event this information is protected by the Federal Confidentiality of Alcohol and Drug Abuse Patient Records regulations: The Federal rules restrict any use of the information to criminally investigate or prosecute any alcohol or drug abuse patient.[facility] HospitalIn the event this information is protected by the Federal Confidentiality of Alcohol and Drug Abuse Patient Records regulations: The Federal rules restrict any use of the information to criminally investigate or prosecute any alcohol or drug abuse patient.[facility] HospitalIn the event this information is protected by the Federal Confidentiality of Alcohol and Drug Abuse Patient Records regulations: The Federal rules restrict any use of the information to criminally investigate or prosecute any alcohol or drug abuse patient.[facility] HospitalIn the event this information is protected by the Federal Confidentiality of Alcohol and Drug Abuse Patient Records regulations: The Federal rules restrict any use of the information to criminally investigate or prosecute any alcohol or drug abuse patient.[facility] HospitalIn the event this information is protected by the Federal Confidentiality of Alcohol and Drug Abuse Patient Records regulations: The Federal rules restrict any use of the information to criminally investigate or prosecute any alcohol or drug abuse patient.[facility] HospitalIn the event this information is protected by the Federal Confidentiality of Alcohol and Drug Abuse Patient Records regulations: The Federal rules restrict any use of the information to criminally investigate or prosecute any alcohol or drug abuse patient.[facility] HospitalIn the event this information is protected by the Federal Confidentiality of Alcohol and Drug Abuse Patient Records regulations: The Federal rules restrict any use of the information to criminally investigate or prosecute any alcohol or drug abuse patient.[facility] HospitalIn the event this information is protected by the Federal Confidentiality of Alcohol and Drug Abuse Patient Records regulations: The Federal rules restrict any use of the information to criminally investigate or prosecute any alcohol or drug abuse patient.[facility] HospitalIn the event this information is protected by the Federal Confidentiality of Alcohol and Drug Abuse Patient Records regulations: The Federal rules restrict any use of the information to criminally investigate or prosecute any alcohol or drug abuse patient.[facility] HospitalIn the event this information is protected by the Federal Confidentiality of Alcohol and Drug Abuse Patient Records regulations: The Federal rules restrict any use of the information to criminally investigate or prosecute any alcohol or drug abuse patient.[facility] HospitalIn the event this information is protected by the Federal Confidentiality of Alcohol and Drug Abuse Patient Records regulations: The Federal rules restrict any use of the information to criminally investigate or prosecute any alcohol or drug abuse patient.[facility] HospitalIn the event this information is protected by the Federal Confidentiality of Alcohol and Drug Abuse Patient Records regulations: The Federal rules restrict any use of the information to criminally investigate or prosecute any alcohol or drug abuse patient.[facility] HospitalIn the event this information is protected by the Federal Confidentiality of Alcohol and Drug Abuse Patient Records regulations: The Federal rules restrict any use of the information to criminally investigate or prosecute any alcohol or drug abuse patient.[facility] HospitalIn the event this information is protected by the Federal Confidentiality of Alcohol and Drug Abuse Patient Records regulations: The Federal rules restrict any use of the information to criminally investigate or prosecute any alcohol or drug abuse patient.[facility] HospitalIn the event this information is protected by the Federal Confidentiality of Alcohol and Drug Abuse Patient Records regulations: The Federal rules restrict any use of the information to criminally investigate or prosecute any alcohol or drug abuse patient.[facility] HospitalIn the event this information is protected by the Federal Confidentiality of Alcohol and Drug Abuse Patient Records regulations: The Federal rules restrict any use of the information to criminally investigate or prosecute any alcohol or drug abuse patient.[facility] HospitalIn the event this information is protected by the Federal Confidentiality of Alcohol and Drug Abuse Patient Records regulations: The Federal rules restrict any use of the information to criminally investigate or prosecute any alcohol or drug abuse patient.[facility] HospitalIn the event this information is protected by the Federal Confidentiality of Alcohol and Drug Abuse Patient Records regulations: The Federal rules restrict any use of the information to criminally investigate or prosecute any alcohol or drug abuse patient.[facility] HospitalIn the event this information is protected by the Federal Confidentiality of Alcohol and Drug Abuse Patient Records regulations: The Federal rules restrict any use of the information to criminally investigate or prosecute any alcohol or drug abuse patient.[facility] HospitalIn the event this information is protected by the Federal Confidentiality of Alcohol and Drug Abuse Patient Records regulations: The Federal rules restrict any use of the information to criminally investigate or prosecute any alcohol or drug abuse patient.[facility] HospitalIn the event this information is protected by the Federal Confidentiality of Alcohol and Drug Abuse Patient Records regulations: The Federal rules restrict any use of the information to criminally investigate or prosecute any alcohol or drug abuse patient.[facility] HospitalIn the event this information is protected by the Federal Confidentiality of Alcohol and Drug Abuse Patient Records regulations: The Federal rules restrict any use of the information to criminally investigate or prosecute any alcohol or drug abuse patient.[facility] HospitalIn the event this information is protected by the Federal Confidentiality of Alcohol and Drug Abuse Patient Records regulations: The Federal rules restrict any use of the information to criminally investigate or prosecute any alcohol or drug abuse patient.[facility] HospitalIn the event this information is protected by the Federal Confidentiality of Alcohol and Drug Abuse Patient Records regulations: The Federal rules restrict any use of the information to criminally investigate or prosecute any alcohol or drug abuse patient.[facility] HospitalIn the event this information is protected by the Federal Confidentiality of Alcohol and Drug Abuse Patient Records regulations: The Federal rules restrict any use of the information to criminally investigate or prosecute any alcohol or drug abuse patient.[facility] HospitalIn the event this information is protected by the Federal Confidentiality of Alcohol and Drug Abuse Patient Records regulations: The Federal rules restrict any use of the information to criminally investigate or prosecute any alcohol or drug abuse patient.[facility] HospitalIn the event this information is protected by the Federal Confidentiality of Alcohol and Drug Abuse Patient Records regulations: The Federal rules restrict any use of the information to criminally investigate or prosecute any alcohol or drug abuse patient.[facility] HospitalIn the event this information is protected by the Federal Confidentiality of Alcohol and Drug Abuse Patient Records regulations: The Federal rules restrict any use of the information to criminally investigate or prosecute any alcohol or drug abuse patient.[facility] HospitalIn the event this information is protected by the Federal Confidentiality of Alcohol and Drug Abuse Patient Records regulations: The Federal rules restrict any use of the information to criminally investigate or prosecute any alcohol or drug abuse patient.[facility] HospitalIn the event this information is protected by the Federal Confidentiality of Alcohol and Drug Abuse Patient Records regulations: The Federal rules restrict any use of the information to criminally investigate or prosecute any alcohol or drug abuse patient.[facility] HospitalIn the event this information is protected by the Federal Confidentiality of Alcohol and Drug Abuse Patient Records regulations: The Federal rules restrict any use of the information to criminally investigate or prosecute any alcohol or drug abuse patient.[facility] HospitalIn the event this information is protected by the Federal Confidentiality of Alcohol and Drug Abuse Patient Records regulations: The Federal rules restrict any use of the information to criminally investigate or prosecute any alcohol or drug abuse patient.[facility] the event this information is protected by the Federal Confidentiality of Alcohol and Drug Abuse Patient Records regulations: The Federal rules restrict any use of the information to criminally investigate or prosecute any alcohol or drug abuse patient.[facility] HospitalIn the event this information is protected by the Federal Confidentiality of Alcohol and Drug Abuse Patient Records regulations: The Federal rules restrict any use of the information to criminally investigate or prosecute any alcohol or drug abuse patient.[facility] HospitalIn the event this information is protected by the Federal Confidentiality of Alcohol and Drug Abuse Patient Records regulations: The Federal rules restrict any use of the information to criminally investigate or prosecute any alcohol or drug abuse patient.[facility] HospitalIn the event this information is protected by the Federal Confidentiality of Alcohol and Drug Abuse Patient Records regulations: The Federal rules restrict any use of the information to criminally investigate or prosecute any alcohol or drug abuse patient.[facility] HospitalIn the event this information is protected by the Federal Confidentiality of Alcohol and Drug Abuse Patient Records regulations: The Federal rules restrict any use of the information to criminally investigate or prosecute any alcohol or drug abuse patient.[facility] HospitalIn the event this information is protected by the Federal Confidentiality of Alcohol and Drug Abuse Patient Records regulations: The Federal rules restrict any use of the information to criminally investigate or prosecute any alcohol or drug abuse patient.[facility] HospitalIn the event this information is protected by the Federal Confidentiality of Alcohol and Drug Abuse Patient Records regulations: The Federal rules restrict any use of the information to criminally investigate or prosecute any alcohol or drug abuse patient.[facility] HospitalIn the event this information is protected by the Federal Confidentiality of Alcohol and Drug Abuse Patient Records regulations: The Federal rules restrict any use of the information to criminally investigate or prosecute any alcohol or drug abuse patient.[facility] HospitalIn the event this information is protected by the Federal Confidentiality of Alcohol and Drug Abuse Patient Records regulations: The Federal rules restrict any use of the information to criminally investigate or prosecute any alcohol or drug abuse patient.[facility] HospitalIn the event this information is protected by the Federal Confidentiality of Alcohol and Drug Abuse Patient Records regulations: The Federal rules restrict any use of the information to criminally investigate or prosecute any alcohol or drug abuse patient.[facility] HospitalIn the event this information is protected by the Federal Confidentiality of Alcohol and Drug Abuse Patient Records regulations: The Federal rules restrict any use of the information to criminally investigate or prosecute any alcohol or drug abuse patient.[facility] HospitalIn the event this information is protected by the Federal Confidentiality of Alcohol and Drug Abuse Patient Records regulations: The Federal rules restrict any use of the information to criminally investigate or prosecute any alcohol or drug abuse patient.[facility] HospitalIn the event this information is protected by the Federal Confidentiality of Alcohol and Drug Abuse Patient Records regulations: The Federal rules restrict any use of the information to criminally investigate or prosecute any alcohol or drug abuse patient.[facility] HospitalIn the event this information is protected by the Federal Confidentiality of Alcohol and Drug Abuse Patient Records regulations: The Federal rules restrict any use of the information to criminally investigate or prosecute any alcohol or drug abuse patient.[facility] HospitalIn the event this information is protected by the Federal Confidentiality of Alcohol and Drug Abuse Patient Records regulations: The Federal rules restrict any use of the information to criminally investigate or prosecute any alcohol or drug abuse patient.[facility] HospitalIn the event this information is protected by the Federal Confidentiality of Alcohol and Drug Abuse Patient Records regulations: The Federal rules restrict any use of the information to criminally investigate or prosecute any alcohol or drug abuse patient.[facility] HospitalIn the event this information is protected by the Federal Confidentiality of Alcohol and Drug Abuse Patient Records regulations: The Federal rules restrict any use of the information to criminally investigate or prosecute any alcohol or drug abuse patient.[facility] HospitalIn the event this information is protected by the Federal Confidentiality of Alcohol and Drug Abuse Patient Records regulations: The Federal rules restrict any use of the information to criminally investigate or prosecute any alcohol or drug abuse patient.[facility] HospitalIn the event this information is protected by the Federal Confidentiality of Alcohol and Drug Abuse Patient Records regulations: The Federal rules restrict any use of the information to criminally investigate or prosecute any alcohol or drug abuse patient.[facility] HospitalIn the event this information is protected by the Federal Confidentiality of Alcohol and Drug Abuse Patient Records regulations: The Federal rules restrict any use of the information to criminally investigate or prosecute any alcohol or drug abuse patient.[facility] HospitalIn the event this information is protected by the Federal Confidentiality of Alcohol and Drug Abuse Patient Records regulations: The Federal rules restrict any use of the information to criminally investigate or prosecute any alcohol or drug abuse patient.[facility] HospitalIn the event this information is protected by the Federal Confidentiality of Alcohol and Drug Abuse Patient Records regulations: The Federal rules restrict any use of the information to criminally investigate or prosecute any alcohol or drug abuse patient.[facility] HospitalIn the event this information is protected by the Federal Confidentiality of Alcohol and Drug Abuse Patient Records regulations: The Federal rules restrict any use of the information to criminally investigate or prosecute any alcohol or drug abuse patient.[facility] HospitalIn the event this information is protected by the Federal Confidentiality of Alcohol and Drug Abuse Patient Records regulations: The Federal rules restrict any use of the information to criminally investigate or prosecute any alcohol or drug abuse patient.[facility] HospitalIn the event this information is protected by the Federal Confidentiality of Alcohol and Drug Abuse Patient Records regulations: The Federal rules restrict any use of the information to criminally investigate or prosecute any alcohol or drug abuse patient.[facility] Reason for Visit (unrecogniz ed section and content) Reason Comments Establish Care Reason Comments New Pain Reason Comments Appointment Reason Onset Date Comments F/U 6 months Radiology Mammogram 10/17/2023 at [facility] Reason Comments Follow Up Reason Comments F/U 6 months Reason Onset Date Comments Refill Request 04/26/2024 Reason Onset Date Comments Refill Request 04/29/2024 Reason Onset Date Comments Refill Request 05/09/2024 Reason Onset Date Comments Refill Request 05/11/2024 Reason Comments Consult Reason Comments 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 Reason Comments Orders Reason Comments Established Patient Follow Up Post Op Knee Replacement Reason Comments Knee Replacement Post Op Reason Comments FYI: [facility] PT POC Reason Comments Home Health Update Reason Comments [facility] OT POC Reason Comments Hospital F/U Follow up Left knee replacement Reason Comments Post Op Reason Comments Question about updated precautions Reason Comments Orders Outpatient physical therapy Reason Comments Patient Update Reason Comments Established Patient Follow Up Knee Replacement Incision check Reason Comments Follow Up Post Op Reason Onset Date Comments Refill Request 08/27/2024 Reason Onset Date Comments Refill Request 09/08/2024 Reason Comments Post Op Follow Up Reason Comments Low Blood Sugar Reason Comments Hospital F/U Reason Comments Post Op Knee Replacement Follow Up Established Patient Reason Onset Date Comments Refill Request 10/13/2024 Reason Comments Med Change Request Reason Comments Cough Chest congestion, wh eezing x last night Care Teams (unrecognized sec tion and content) Team Status: Active Member Role Status Dates Dr. Aashish Bahena MD Primary Care Provider Active Team Status: Inactive Member Role Status Dates Dr. Aashish Bahena MD Primary Care Provider Active Start: October 21, 2024 End: October 24, 2024 Dr. Anthony Esquivel MD Attending Provider Active Start: October 21, 2024 End: October 24, 2024 Hal Hale NP-C Referring Provider Active Start: October 21, 2024 End: October 24, 2024 Team Status: Active Member Role Status Dates Dr. Aashish Bahena MD Primary Care Provider Active Start: October 21, 2024 Dr. Anthony Esquivel MD Attending Provider Active Start: October 21, 2024 Dr. Anthony Esquivel MD Other Provider Active Sta rt: October 21, 2024 Hal Hale NP-C Referring Provider Active Start: October 21, 2024 Team Status: Active Member Role Status Dates Dr. Aashish Bahena MD Primary Care Provider Active Start: October 28, 2024 Dr. Anthony Esquivel MD Attending Provider Active Start: October 28, 2024 Dr. Anthony Esquivel MD Other Provider Active Sta rt: October 28, 2024 Hal Hale NP-C Referring Provider Active Start: October 28, 2024 Team Status: Active Member Role Status Dates Dr. Aashish Bahena MD Primary Care Provider Active Start: November 04, 2024 Dr. Anthony Esquivel MD Attending Provider Active Start: November 04, 2024 Dr. Anthony Esquivel MD Other Provider Active Sta rt: November 04, 2024 Hal Grater , 3D DESIGNER-C Referring Provider Active Start: November 04, 2024 Team Status: Active Member Role Status Dates Dr. Aashish Bahena MD Primary Care Provider Active Start: November 11, 2024 Dr. Anthony Esquivel MD Attending Provider Active Start: November 11, 2024 Dr. Anthony Esquivel MD Other Provider Active Sta rt: November 11, 2024 Hal Grater , 3D DESIGNER-C Referring Provider Active Start: November 11, 2024 Team Status: Inactive Member Role Status Dates Dr. Aashish Bahena MD Primary Care Provider Active Start: November 18, 2024 End: November 21, 2024 Dr. Anthony Esquivel MD Attending Provider Active Start: November 18, 2024 End: November 21, 2024 Hal Perfector , 3D DESIGNER-C Referring Provider Active Start: November 18, 2024 End: November 21, 2024 Team Status: Active Member Role Status Dates Dr. Aashish Bahena MD Primary Care Provider Active Start: November 18, 2024 Dr. Anthony Esquivel MD Attending Provider Active Start: November 18, 2024 Dr. Anthony Esquivel MD Other Provider Active Sta rt: November 18, 2024 Hal Grater , 3D DESIGNER-C Referring Provider Active Start: November 18, 2024 Team Status: Active Member Role Status Dates Dr. Aashish Bahena MD Primary Care Provider Active Start: November 25, 2024 Dr. Anthony Esquivel MD Attending Provider Active Start: November 25, 2024 Dr. Anthony Esquivel MD Other Provider Active Sta rt: November 25, 2024 Hal Perfector , 3D DESIGNER-C Referring Provider Active Start: November 25, 2024 Team Status: Active Member Role Status Dates Dr. Aashish Bahena MD Primary Care Provider Active Start: December 02, 2024 Dr. Anthony Esquivel MD Attending Provider Active Start: December 02, 2024 Dr. Anthony Esquivel MD Other Provider Active Sta rt: December 02, 2024 Hal Perfector , 3D DESIGNER-C Referring Provider Active Start: December 02, 2024 Team Status: Inactive Member Role Status Dates Dr. Aashish Bahena MD Primary Care Provider Active Start: December 16, 2024 End: December 22, 2024 Dr. Anthony Esquivel MD Attending Provider Active Start: December 16, 2024 End: December 22, 2024 Hal Grater , 3D DESIGNER-C Referring Provider Active Start: December 16, 2024 End: December 22, 2024 Team Status: Inactive Member Role Status Dates Dr. Aashish Bahena MD Primary Care Provider Active Start: December 18, 2024 End: December 18, 2024 Dr. Aashish Bahena MD Referring Provider Active Start: December 18, 2024 End: December 18, 2024 Dr. Drew Steele MD Attending Provider Active Start: December 18, 2024 End: December 18, 2024 Team Status: Active Member Role Status Dates Dr. Aashish Bahena MD Primary Care Provider Active Start: December 23, 2024 Dr. Anthony Esquivel MD Attending Provider Active Start: December 23, 2024 Dr. Anthony Esquivel MD Other Provider Active Sta rt: December 23, 2024 Hal Grater , 3D DESIGNER-C Referring Provider Active Start: December 23, 2024 Team Status: Active Member Role Status Dates Dr. Aashish Bahena MD Primary Care Provider Active Start: December 31, 2024 Dr. Anthony Esquivel MD Other Provider Active Sta rt: December 31, 2024 Hal Grater , 3D DESIGNER-C Referring Provider Active Start: December 31, 2024 Betty Rhodes NP, 3D DESIGNER-C Attending Provider Active Start: December 31, 2024 Team Status: Active Member Role Status Dates Dr. Aashish Bahena MD Primary Care Provider Active Start: January 07, 2025 Dr. Anthony Esquivel MD Attending Provider Active Start: January 07, 2025 Dr. Anthony Esquivel MD Other Provider Active Sta rt: January 07, 2025 Hal Grater , 3D DESIGNER-C Referring Provider Active Start: January 07, 2025 Team Status: Active Member Role Status Dates Dr. Aashish Bahena MD Primary Care Provider Active Start: January 14, 2025 Dr. Anthony Esquivel MD Attending Provider Active Start: January 14, 2025 Dr. Anthony Esquivel MD Other Provider Active Sta rt: January 14, 2025 Halchelsea Sandovalr , 3D DESIGNER-C Referring Provider Active Start: January 14, 2025 Team Status: Active Member Role Status Dates Dr. Aashish Bahena MD Primary Care Provider Active Start: January 21, 2025 Dr. Anthony Esquivel MD Attending Provider Active Start: January 21, 2025 Dr. Anthony Esquivel MD Other Provider Active Sta rt: January 21, 2025 Hal Hale , 3D DESIGNER-C Referring Provider Active Start: January 21, 2025 Team Status: Inactive Member Role Status Dates Dr. Aashish Bahena MD Primary Care Provider Active Start: January 21, 2025 End: January 21, 2025 Dr. Anthony Esquivel MD Attending Provider Active Start: January 21, 2025 End: January 21, 2025 Hal Hale , 3D DESIGNER-C Referring Provider Active Start: January 21, 2025 End: January 21, 2025 Team Status: Active Member Role Status Dates Dr. aAshish Bahena MD Primary Care Provider Active Start: January 28, 2025 Dr. Anthony Esquivel MD Attending Provider Active Start: January 28, 2025 Dr. Anthony Esquivel MD Other Provider Active Sta rt: January 28, 2025 Hal Hale , 3D DESIGNER-C Referring Provider Active Start: January 28, 2025 Team Status: Inactive Member Role Status Dates Dr. Aashish Bahena MD Primary Care Provider Active Start: February 03, 2025 End: February 03, 2025 Dr. Aashish Bahena MD Referring Provider Active Start: February 03, 2025 End: February 03, 2025 Crystal Urbano NP-C Attending Provider Active S tart: February 03, 2025 End: February 03, 2025 Team Status: Active Member Role Status Dates Dr. Aashish Bahena MD Primary Care Provider Active Start: February 04, 2025 Dr. Anthony Esquivel MD Attending Provider Active Start: February 04, 2025 Dr. Anthony Esquivel MD Other Provider Active Sta rt: February 04, 2025 Hal Hale , 3D DESIGNER-C Referring Provider Active Start: February 04, 2025 Team Status: Inactive Member Role Status Dates Dr. Aashish Bahena MD Primary Care Provider Active Start: February 06, 2025 End: February 06, 2025 Dr. Dann Fontaine MD Attending Provider Active Start: February 06, 2025 End: February 06, 2025 Dr. Dann Fontaine MD Referring Provider Active Start: February 06, 2025 End: February 06, 2025 Team Status: Inactive Member Role Status Dates Dr. Aashish Bahena MD Primary Care Provider Active Start: February 18, 2025 End: February 18, 2025 Dr. Anthony Esquivel MD Attending Provider Active Start: February 18, 2025 End: February 18, 2025 Hal Hale 3D DESIGNER-C Referring Provider Active Start: February 18, 2025 End: February 18, 2025 Director Broadcast Relationship Specialty Start Date End Date Aashish Bahena MD [address] [place] [address] PCP - General Internal Medicine 04/03/23 Director Broadcast Relationship Specialty Start Date End Date Aashish Bahena MD [address] [place] [address] PCP - General Internal Medicine 04/03/23 Director Broadcast Relationship Specialty Start Date End Date Aashish Bahena MD [address] [place] [address] PCP - General Internal Medicine 04/03/23 Director Broadcast Relationship Specialty Start Date End Date Aashish Bahena MD [address] [place] [address] PCP - General Internal Medicine 04/03/23 Director Broadcast Relationship Specialty Start Date End Date Aashish Bahena MD [address] [place] [address] PCP - General Internal Medicine 04/03/23 Team Status: Active Member Role Status Dates Dr. Kvng Fung MD Family Provider Active Dr. Aashish Bahena MD Primary Care Provider Active Team Status: Inactive Member Role Status Dates Dr. Aashish Bahena MD Primary Care Provider Active Dr. Tony Zhou , DO Emergency Provider Active Director Broadcast Relationship Specialty Start Date End Date Aashish Bahena MD [address] [facility] [address] PCP - General Internal Medicine 04/03/23 Director Broadcast Relationship Specialty Start Date End Date Aashish Bahena MD [address] [place] [address] PCP - General Internal Medicine 04/03/23 Director Broadcast Relationship Specialty Start Date End Date Aashish Bahena MD [address] [place] [address] PCP - General Internal Medicine 04/03/23 Director Broadcast Relationship Specialty Start Date End Date Aashish Bahena MD [address] [place] [address] PCP - General Internal Medicine 04/03/23 Director Broadcast Relationship Specialty Start Date End Date Aashish Bahena MD [address] [place] [address] PCP - General Internal Medicine 04/03/23 Director Broadcast Relationship Specialty Start Date End Date Aashish Bahena MD [address] [facility] [address] PCP - General Internal Medicine 04/03/23 Director Broadcast Relationship Specialty Start Date End Date Aashish Bahena MD [address] [facility] [place] [id number] PCP - General Internal Medicine 04/03/23 Director Broadcast Relationship Specialty Start Date End Date Aashish Bahena MD [address] [facility] [address] PCP - General Internal Medicine 04/03/23 Director Broadcast Relationship Specialty Start Date End Date Aashish Bahena MD [address] [facility] [address] PCP - General Internal Medicine 04/03/23 Director Broadcast Relationship Specialty Start Date End Date Aashish Bahena MD [address] [facility] [address] PCP - General Internal Medicine 04/03/23 Director Broadcast Relationship Specialty Start Date End Date Aashish Bahena MD [address] [facility] [address] PCP - General Internal Medicine 04/03/23 Director Broadcast Relationship Specialty Start Date End Date Aashish Bahena MD [address] [facility] [address] PCP - General Internal Medicine 04/03/23 Director Broadcast Relationship Specialty Start Date End Date Aashish Bahena MD [address] [facility] [address] PCP - General Internal Medicine 04/03/23 Director Broadcast Relationship Specialty Start Date End Date Aashish Bahena MD [address] [facility] [address] PCP - General Internal Medicine 04/03/23 Director Broadcast Relationship Specialty Start Date End Date Aashish Bahena MD [address] [facility] [address] PCP - General Internal Medicine 04/03/23 Director Broadcast Relationship Specialty Start Date End Date Aashish Bahena MD [address] [place] [address] PCP - General Internal Medicine 04/03/23 Director Broadcast Relationship Specialty Start Date End Date Aashish Bahena MD [address] [place] [address] PCP - General Internal Medicine 04/03/23 Director Broadcast Relationship Specialty Start Date End Date Aashish Bahena MD [address] [place] [address] PCP - General Internal Medicine 04/03/23 Director Broadcast Relationship Specialty Start Date End Date Aashish Bahena MD [address] [place] [address] PCP - General Internal Medicine 04/03/23 Director Broadcast Relationship Specialty Start Date End Date Aashish Bahena MD [address] [place] [address] PCP - General Internal Medicine 04/03/23 Director Broadcast Relationship Specialty Start Date End Date Aashish Bahena MD [address] [place] [address] PCP - General Internal Medicine 04/03/23 Director Broadcast Relationship Specialty Start Date End Date Aashish Bahena MD [address] [place] [address] PCP - General Internal Medicine 04/03/23 Director Broadcast Relationship Specialty Start Date End Date Aashish Bahena MD [address] [place] [address] PCP - General Internal Medicine 04/03/23 Director Broadcast Relationship Specialty Start Date End Date Aashish Bahena MD [address] [facility] [address] PCP - General Internal Medicine 04/03/23 Director Broadcast Relationship Specialty Start Date End Date Aashish Bahena MD [address] [facility] [address] PCP - General Internal Medicine 04/03/23 Director Broadcast Relationship Specialty Start Date End Date Aashish Bahena MD [address] [facility] [address] PCP - General Internal Medicine 04/03/23 Director Broadcast Relationship Specialty Start Date End Date Aashish Bahena MD [address] [facility] [address] PCP - General Internal Medicine 04/03/23 Director Broadcast Relationship Specialty Start Date End Date Aashish Bahena MD [address] [place] [address] PCP - General Internal Medicine 04/03/23 Director Broadcast Relationship Specialty Start Date End Date Aashish Bahena MD [address] [facility] [address] PCP - General Internal Medicine 04/03/23 Director Broadcast Relationship Specialty Start Date End Date Aashish Bahena MD [address] [place] [address] PCP - General Internal Medicine 04/03/23 Director Broadcast Relationship Specialty Start Date End Date Aashish Bahena MD [address] [place] [address] PCP - General Internal Medicine 04/03/23 Director Broadcast Relationship Specialty Start Date End Date Aashish Bahena MD [address] [place] [address] PCP - General Internal Medicine 04/03/23 Director Broadcast Relationship Specialty Start Date End Date Aashish Bahena MD [address] [place] [address] PCP - General Internal Medicine 04/03/23 Director Broadcast Relationship Specialty Start Date End Date Aashish Bahena MD [address] [place] [address] PCP - General Internal Medicine 04/03/23 Yuri Brady, ANTIQUE AUTOMOBILES REPAIRER.SHOE STITCHER [address] [place] [address] [employer] Machine Operator Internal Medicine 09/01/24 Piter Moran ANTIQUE AUTOMOBILES REPAIRER.OPENING MACHINE CLEANER [address] [place] [address] [employer] Machine Operator Internal Medicine 09/01/24 Director Broadcast Relationship Specialty Start Date End Date Aashish Bahena MD [address] [place] [address] PCP - General Internal Medicine 04/03/23 Yuri Brady, ANTIQUE AUTOMOBILES REPAIRER.SHOE STITCHER [address] [place] [address] Gridcap Machine Operator Internal Medicine 09/01/24 Piter Moran ANTIQUE AUTOMOBILES REPAIRER.OPENING MACHINE CLEANER [address] [place] [address] Grid[employer] Machine Operator Internal Medicine 09/01/24 Director Broadcast Relationship Specialty Start Date End Date Aashish Bahena MD [address] [place] [address] PCP - General Internal Medicine 04/03/23 Yuri Brady, ANTIQUE AUTOMOBILES REPAIRER.SHOE STITCHER [address] [place] [address] [employer] Machine Operator Internal Medicine 09/01/24 Piter Morna ANTIQUE AUTOMOBILES REPAIRER.OPENING MACHINE CLEANER [address] [place] [address] Gridcap Machine Operator Internal Medicine 09/01/24 Director Broadcast Relationship Specialty Start Date End Date Aashish Bahena MD [address] [place] [address] PCP - General Internal Medicine 04/03/23 Yuri Brady, ANTIQUE AUTOMOBILES REPAIRER.SHOE STITCHER [address] [place] [address] Gridcap Machine Operator Internal Medicine 09/01/24 Piter Moran ANTIQUE AUTOMOBILES REPAIRER.OPENING MACHINE CLEANER [address] [place] [address] [facility] Internal Medicine 09/01/24 Director Broadcast Relationship Specialty Start Date End Date Aashish Bahena MD [address] [place] [address] PCP - General Internal Medicine 04/03/23 Yuri Brady, ANTIQUE AUTOMOBILES REPAIRER.SHOE STITCHER [address] [place] [address] Gridcap Machine Operator Internal Medicine 09/01/24 Piter Moran APRN.OPENING MACHINE CLEANER [address] [place] [address] Grid[employer] Machine Operator Internal Medicine 09/01/24 Director Broadcast Relationship Specialty Start Date End Date Aashish Bahena MD [address] [place] [address] PCP - General Internal Medicine 04/03/23 Yuri Brady APRN.SHOE STITCHER [address] [place] [address] Gridcap Machine Operator Internal Medicine 09/01/24 Piter Moran APRN.OPENING MACHINE CLEANER [address] [place] [address] Gridcap Machine Operator Internal Medicine 09/01/24 Director Broadcast Relationship Specialty Start Date End Date Aashish Bahena MD [address] [place] [address] PCP - General Internal Medicine 04/03/23 Yuri Brady, ANTIQUE AUTOMOBILES REPAIRER.SHOE STITCHER [address] [place] [address] Grid[employer] Machine Operator Internal Medicine 09/01/24 Piter Moran APRN.OPENING MACHINE CLEANER [address] [place] [address] Grid[employer] Machine Operator Internal Medicine 09/01/24 Director Broadcast Relationship Specialty Start Date End Date Aashish Bahena MD [address] [place] [address] PCP - General Internal Medicine 04/03/23 Yuri Brady, ANTIQUE AUTOMOBILES REPAIRER.SHOE STITCHER [address] [place] [address] Gridcap Machine Operator Internal Medicine 09/01/24 Piter Moran ANTIQUE AUTOMOBILES REPAIRER.OPENING MACHINE CLEANER [address] [place] [address] Grid[employer] Machine Operator Internal Medicine 09/01/24 Director Broadcast Relationship Specialty Start Date End Date Aashish Bahena MD [address] [place] [address] PCP - General Internal Medicine 04/03/23 Yuri Brady, ANTIQUE AUTOMOBILES REPAIRER.SHOE STITCHER [address] [place] [address] Grid[employer] Machine Operator Internal Medicine 09/01/24 Piter Moran APRN.OPENING MACHINE CLEANER [address] [place] [address] [facility] Internal Medicine 09/01/24 Director Broadcast Relationship Specialty Start Date End Date Aashish Bahena MD [address] [place] [address] PCP - General Internal Medicine 04/03/23 Yuri Brady, ANTIQUE AUTOMOBILES REPAIRER.SHOE STITCHER [address] [place] [address] [facility] Internal Medicine 09/01/24 Piter Moran APRN.OPENING MACHINE CLEANER [address] [place] [address] [facility] Internal Medicine 09/01/24 Director Broadcast Relationship Specialty Start Date End Date Aashish Bahena MD [address] [facility] [address] PCP - General Internal Medicine 04/03/23 Yuri Brady, ANTIQUE AUTOMOBILES REPAIRER.SHOE STITCHER [address] [facility] [address] Grid[employer] Machine Operator Internal Medicine 09/01/24 Piter Moran ANTIQUE AUTOMOBILES REPAIRER.OPENING MACHINE CLEANER [address] [facility] [place] [address] [facility] Internal Medicine 09/01/24 Director Broadcast Relationship Specialty Start Date End Date Aashish Bahena MD [address] [facility] [address] PCP - General Internal Medicine 04/03/23 Yuri Brady, ANTIQUE AUTOMOBILES REPAIRER.SHOE STITCHER [address] [facility] [address] Gridcap Machine Operator Internal Medicine 09/01/24 Piter Moran ANTIQUE AUTOMOBILES REPAIRER.OPENING MACHINE CLEANER [address] [facility] [address] [facility] Internal Medicine 09/01/24 Director Broadcast Relationship Specialty Start Date End Date Aashish Bahena MD [address] [place] [address] PCP - General Internal Medicine 04/03/23 Yuri Brady, ANTIQUE AUTOMOBILES REPAIRER.SHOE STITCHER [address] [place] [address] [employer] Machine Operator Internal Medicine 09/01/24 Piter Moran ANTIQUE AUTOMOBILES REPAIRER.OPENING MACHINE CLEANER [address] [facility] [address] [facility] Internal Medicine 09/01/24 Director Broadcast Relationship Specialty Start Date End Date Aashish Bahena MD [address] [facility], [place] [address] PCP - General Internal Medicine 04/03/23 Yuri Brady, ANTIQUE AUTOMOBILES REPAIRER.SHOE STITCHER [address] [facility], [place] [address] [facility] Internal Medicine 09/01/24 Piter Moran, ANTIQUE AUTOMOBILES REPAIRER.OPENING MACHINE CLEANER [address] [facility], [place] [address] [facility] Internal [facility] 09/01/24 Team Status: Active Member Role Status Dates Dr. Aashish Bahena MD Primary Care Provider Active Start: August 26, 2024 Dr. Anthony Esquivel MD Attending Provider Active Start: August 26, 2024 Dr. Anthony Esquivel MD Other Provider Active Sta rt: August 26, 2024 ZANDER Garcia Referring Provider Active Start: August 26, 2024 Team Status: Active Member Role Status Dates Dr. Aashish Bahena MD Primary Care Provider Active Start: September 02, 2024 Dr. Anthony Esquivel MD Attending Provider Active Start: September 02, 2024 Dr. Anthony Esquivel MD Other Provider Active Sta rt: September 02, 2024 ZANDER Garcia Referring Provider Active Start: September 02, 2024 Team Status: Active Member Role Status Dates Dr. Aashish Bahena MD Primary Care Provider Active Start: September 09, 2024 Dr. Anthony Esquivel MD Attending Provider Active Start: September 09, 2024 Dr. Anthony Esquivel MD Other Provider Active Sta rt: September 09, 2024 ZANDER Garcia Referring Provider Active Start: September 09, 2024 Team Status: Active Member Role Status Dates Dr. Aashish Bahena MD Primary Care Provider Active Start: September 16, 2024 Dr. Anthony Esquivel MD Attending Provider Active Start: September 16, 2024 Dr. Anthony Esquivel MD Other Provider Active Sta rt: September 16, 2024 Hal Hale 3D DESIGNER-C Referring Provider Active Start: September 16, 2024 Team Status: Inactive Member Role Status Dates Dr. Aashish Bahena MD Primary Care Provider Active Start: September 23, 2024 End: September 23, 2024 Dr. Anthony Esquivel MD Attending Provider Active Start: September 23, 2024 End: September 23, 2024 Hal Hale 3D DESIGNER-C Referring Provider Active Start: September 23, 2024 End: September 23, 2024 Team Status: Active Member Role Status Dates Dr. Aashish Bahena MD Primary Care Provider Active Start: September 23, 2024 Dr. Anthony Esquivel MD Attending Provider Active Start: September 23, 2024 Dr. Anthony Esquivel MD Other Provider Active Sta rt: September 23, 2024 Hal Hale 3D DESIGNER-C Referring Provider Active Start: September 23, 2024 Team Status: Inactive Member Role Status Dates Dr. Aashish Bahena MD Primary Care Provider Active Start: September 23, 2024 End: September 26, 2024 Dr. Julissa Weinberg DO Emergency Provider Active Start: September 23, 2024 End: September 26, 2024 Dr. Enriqueta Knight DO Admit Provider Active Start : September 23, 2024 End: September 26, 2024 Dr. Enriqueta Knight DO Other Provider Active Start : September 23, 2024 End: September 26, 2024 Dr. Isreal Ceunca MD Attending Provider Active Start: September 23, 2024 End: September 26, 2024 Dr. Emir Pang MD Other Provider Active S tart: September 23, 2024 End: September 26, 2024 Team Status: Active Member Role Status Dates Dr. Aashish Bahena MD Primary Care Provider Active Start: September 24, 2024 Dr. Julissa Weinberg DO Emergency Provider Active Start: September 24, 2024 Dr. Enriqueta Knight DO Admit Provider Active Start : September 24, 2024 Dr. Enriqueta Knight DO Attending Provider Active S tart: September 24, 2024 Dr. Enriqueta Knight DO Other Provider Active Start : September 24, 2024 Team Status: Active Member Role Status Dates Dr. Aashish Bahena MD Primary Care Provider Active Start: September 25, 2024 Dr. Julissa Weinberg DO Emergency Provider Active Start: September 25, 2024 Dr. Enriqueta Knight DO Admit Provider Active Start : September 25, 2024 Dr. Enriqueta Knight DO Other Provider Active Start : September 25, 2024 Dr. Isreal Cuenca MD Attending Provider Active Start: September 25, 2024 Dr. Isreal Cuenca MD Other Provider Active Star t: September 25, 2024 Team Status: Active Member Role Status Dates Dr. Aashish Bahena MD Primary Care Provider Active Start: September 26, 2024 Dr. Julissa Weinberg DO Emergency Provider Active Start: September 26, 2024 Dr. Enriqueta Knight DO Admit Provider Active Start : September 26, 2024 Dr. Enriqueta Knight DO Other Provider Active Start : September 26, 2024 Dr. Isreal Cuenca MD Attending Provider Active Start: September 26, 2024 Dr. Isreal Cuenca MD Other Provider Active Star t: September 26, 2024 Dr. Emir Pang MD Other Provider Active S tart: September 26, 2024 Team Status: Active Member Role Status Dates Dr. Aashish Bahena MD Primary Care Provider Active Start: September 30, 2024 Dr. Anthony Esquivel MD Attending Provider Active Start: September 30, 2024 Dr. Anthony Esquivel MD Other Provider Active Sta rt: September 30, 2024 Hal Hlae NP-C Referring Provider Active Start: September 30, 2024 Team Status: Active Member Role Status Dates Dr. Aashish Bahena MD Primary Care Provider Active Start: October 07, 2024 Dr. Anthony Esquivel MD Attending Provider Active Start: October 07, 2024 Dr. Anthony Esquivel MD Other Provider Active Sta rt: October 07, 2024 Hal Hale NP-C Referring Provider Active Start: October 07, 2024 Team Status: Active Member Role Status Dates Dr. Aashish Bahena MD Primary Care Provider Active Start: October 14, 2024 Dr. Anthony Esquivel MD Attending Provider Active Start: October 14, 2024 Dr. Anthony Esquivel MD Other Provider Active Sta rt: October 14, 2024 ZANDER Garcia Referring Provider Active Start: October 14, 2024 Team Status: Active Member Role Status Dates Dr. Aashish Bahena MD Primary Care Provider Active Start: January 28, 2025 Dr. Anthony Esquivel MD Attending Provider Active Start: January 28, 2025 ZANDER Garcia Referring Provider Active Start: January 28, 2025 Team Status: Active Member Role Status Dates Dr. Aashish Bahena MD Primary Care Provider Active Start: February 04, 2025 Dr. Anthony Esquivel MD Attending Provider Active Start: February 04, 2025 ZANDER Garcia Referring Provider Active Start: February 04, 2025 Director Broadcast Relationship Specialty Start Date End Date Aashish Bahena MD [address] [place], [place] [address] PCP - General Internal Medicine 04/03/23 Piter Moran, ANTIQUE AUTOMOBILES REPAIRER.OPENING MACHINE CLEANER [address] [place], [place] [address] Grid[employer] Machine Operator Internal Medicine 12/16/24 Yuri Brady, ANTIQUE AUTOMOBILES REPAIRER.SHOE STITCHER [address] [place], [place] [address] Grid[employer] Machine Operator Internal Medicine 02/11/25 Team Status: Inactive Member Role Status Dates Dr. Aashish Bahena MD Primary Care Provider Active Start: February 18, 2025 End: February 18, 2025 Dr. Yoni Torres MD Referring Provider Active Sta rt: February 18, 2025 End: February 18, 2025 Dr. Yoni Torres MD Emergency Provider Active Sta rt: February 18, 2025 End: February 18, 2025 Director Broadcast Relationship Specialty Start Date End Date Aashish Bahena MD [address] [place], [place] [address] PCP - General Internal Medicine 04/03/23 Piter Moran APRN.OPENING MACHINE CLEANER [address] [place], [place] [address] [employer] Machine Operator Internal Medicine 12/16/24 Yuri Brady APRN.SHOE STITCHER [address] [place], [place] [address] [facility] Internal Medicine 02/11/25 INFORMATION SOURCE (unrecogn ized section and content) DATE CREATED AUTHOR 12/14/2024 [facility] DATE CREATED AUTHOR AUTHOR'S ORGANIZ ATION 02/21/2025 [facility] DATE CREATED AUTHOR AUTHOR'S ORGANIZ ATION 02/25/2025 [facility] FOR RECORDS PERTAINING TO PATIENTS WHO ARE OR HAVE BEEN ENROLLED IN A CHEMICAL DEPENDENCY/SUBSTANCEABUSE PROGRAM, SOME INFORMATION MAY BE OMITTED. This clinical summary was aggregated from multiple sources. Caution should be exercised in using it in the provision of clinical care. This summary normalizes information from multiple sources, and as a consequence, information in this document may materially change the coding, format and clinical context of patient data. In addition, data may be omitted in some cases. CLINICAL DECISIONS SHOULD BE BASED ON THE PRIMARY CLINICAL RECORDS. [employer] [facility]. provides no warranty or guarantee of the accuracy or completeness of information in this document.
[2025-04-14 06:03] LABS: Allen Test Positive; Base Excess -1 mmol/L (-2 to +2); PO2 81 mmHG (75-100); SITE L Radial; SO2 98 % (95-99)
--- NOTE | 2025-04-14 06:06 | RAD_ITS ---
PROCEDURE: CHEST PA AND LATERAL 04/14/2025 REASON FOR EXAM: SOB TECHNIQUE: CHEST PA AND LATERAL COMPARISON: February 18, 2025 FINDINGS: Stimulator wires are noted in the lower thoracic region. A 7 cm hiatal hernia is noted. Heart size is upper normal. Central vascularity is normal. There is no focal infiltrate or consolidation. There is no pneumothorax or effusion. Aortic calcifications are noted. There is no acute bony abnormality. RAD/Chest PA and Lateral IMPRESSION: No acute process is identified in the chest. Reading Location: [facility]
[2025-04-14 06:31] LABS: Anion Gap 13 (5-15); BUN 15 mg/dL (4-19); BUN/Creat Ratio 16.9 RATIO (10-20); Calcium,Total 9.6 mg/dL (7.6-11.0); Carbon Dioxide 21.0 mmol/L (21.0-32.0); Chloride 105 mmol/L (98-108); Estimated Creatinine Clearance 49.95 ml/min (50-250); Free T3 2.1 pg/mL (2.18-3.98); Glucose 181 mg/dL (70-99); Potassium 4.2 mmol/L (3.3-5.1)
[2025-04-14 06:34] LABS: Pro- Brain NATRIURETIC PEPTIDE < 36 pg/mL (<=1800); Troponin T High Sensitivity 15 ng/L (<=14)
--- NOTE | 2025-04-14 06:52 | CT_ITS ---
PROCEDURE: CTA CHEST W/WO CONTRAST 04/14/2025 REASON FOR EXAM: SOB TECHNIQUE: CTA axial imaging of the chest with intravenous contrast. Coronal and Sagittal reconstruction series were provided. 3D, 3D post processing, 3D reconstructions, Maximum intensity projection (MIPs) Volume rendering and Shaded surface rendering was provided. PATIENT PREPARATION: Per protocol CONTRAST: Isovue 370 VOLUME: 100mL One or more dose reduction techniques were used (e.g., Automated exposure control, adjustment of the mA and/or kV according to patient size, use of iterative reconstruction technique). RADIATION DOSE SUMMARY: DLP: 400 mGycm COMPARISON: CT chest 09/29/2021. FINDINGS: Hardware: None. Lymph nodes: No axillary, mediastinal or hilar lymphadenopathy. Heart: The heart is normal in size without pericardial effusion. Mild coronary artery and thoracic aortic calcifications. Moderate calcific plaque of the aortic valve. The great vessels are normal in caliber. Pulmonary Vessels: No central filling defect within the segmental or subsegmental pulmonary arteries. Visualization of the more distal pulmonary arteries is limited by motion artifact. Lungs and Airways: The central airways are patent. Visualization is limited by motion artifact. Bibasilar atelectasis. No suspicious pulmonary mass. No pleural effusion or pneumothorax. Upper Abdomen: Stable moderate hiatal hernia. Calcific plaque of the abdominal aorta. Bones: Partially visualized spinal cord stimulator within the spinal canal. Thoracic spondylosis. CT/CTA Chest W/WO Contrast IMPRESSION: No large pulmonary embolism. Chronic findings as described. Reading Location: [id number]
[2025-04-14] MEDS: DiphenhydrAMINE 50 MG/ML Syringe IV (07:17)
[2025-04-14 08:20] LABS: Troponin T High Sens 2 HR 17 ng/L (<=14)
[2025-04-14 10:36] LABS: Troponin T High Sens 4 HR 14 ng/L (<=14)
--- NOTE | 2025-04-14 12:26 | ED.RN ---
Dr. Torres notified of patient's request to explain why patient is going home with a high HR (98). states he is uncomfortable taking her home with high HR.
--- NOTE | 2025-04-14 12:33 | ED.RN ---
VO from Dr. Torres to turn off patient's monitor.
== END 2025-04-14 12:45 | disposition home or self-care (01) ==
PROVIDERS: Emergency Provider Emergency Medicine; PCP Internal Medicine; Visit Provider Emergency Medicine
DX: R06.82 Tachypnea, not elsewhere classified (principal); M06.9 Rheumatoid arthritis, unspecified; G70.00 Myasthenia gravis without (acute) exacerbation; E11.40 Type 2 diabetes mellitus with diabetic neuropathy, unspecified; I10 Essential (primary) hypertension; E78.5 Hyperlipidemia, unspecified; E89.0 Postprocedural hypothyroidism; Z86.718 Personal history of other venous thrombosis and embolism; R06.4 Hyperventilation; R53.1 Weakness
CPT/HCPCS: 36415; 36600; 71046; 71275; 80048; 82803; 83880; 84439; 84443; 84481; 84484; 85025; 93005; 94640; 96374; 96375; 99284; Q9967; A4216

== ENCOUNTER → 2025-05-19 | Outpatient (CLI) | payer MEDICARE, SELFPAY ==
--- NOTE | 2025-05-19 08:38 | RAD_ITS ---
PROCEDURE: THORACIC SPINE MIN 4 VIEWS 05/19/2025 REASON FOR EXAM: THORACIC SPINE PAIN TECHNIQUE: THORACIC SPINE MIN 4 VIEWS FINDINGS: BONES: No fracture or focal osseous lesion. Anatomic spinal alignment. Chronic mild anterior wedge deformity of the T11 vertebral body. DISC/DEGENERATIVE CHANGES: Disc space narrowing and small vertebral endplate osteophytes at a few levels. SOFT TISSUES: No acute abnormality seen. Calcified thoracic and abdominal aorta. Surgical clips at the neck base bilaterally and in the RUQ. OTHER: Thoracic spine stimulator is in place. Air-containing hiatal hernia again noted. RAD/Thoracic Spine Min 4 Views IMPRESSION: No acute osseous abnormality. Reading Location: [id number]
== END | disposition home or self-care (01) ==
LOC: MTRAD 08:35
PROVIDERS: PCP Internal Medicine; Referring Provider Anesthesiology Pain Medicine; Visit Provider Anesthesiology Pain Medicine
DX: M54.6 Pain in thoracic spine (principal); Z96.82 Presence of neurostimulator; M43.8X4 Other specified deforming dorsopathies, thoracic region; K44.9 Diaphragmatic hernia without obstruction or gangrene
CPT/HCPCS: 72074

== ENCOUNTER 2025-09-07 10:19 | Day surgery (SDC) | payer MEDICARE, SELFPAY ==
[2025-09-07] VITALS (8 sets, daily range): BP systolic 132–154; BP diastolic 54–67; PULSE 61–70; RESP 16; TEMP 36.4–36.8; O2SAT 96–99; BMI 34.5
--- NOTE | 2025-09-07 10:50 | RAD_ITS ---
PROCEDURE: Intraoperative fluoroscopic services. 09/07/2025 REASON FOR EXAM: KNEE INJECTION, GENICULAR NERVE TECHNIQUE: Procedure Code: RADK Modality: DX Procedure: KNEE 1 OR 2 VIEWS. Intraoperative fluoroscopic services provided for left genicular nerve block.. Fluoroscopy: 4 seconds. Radiation dose: 0.42 mGy Laterality: Left knee COMPARISON: None FINDINGS: Intraoperative fluoroscopic services provided for right genicular nerve block. RAD/Knee 1 or 2 Views IMPRESSION: Intraoperative FLUOROSCOPIC SERVICES PROVIDED FOR RIGHT GENICULAR NERVE BLOCK. Reading Location: [id number]
[2025-09-07] MEDS: Lactated Ringers 1,000 ML 15 ML IV (10:58)
--- NOTE | 2025-09-07 11:12 | PCM.PRE.AN2 ---
ASA Classification* ASA Classification ASA Classification: 3 Assessment & Plan Anesthesia* Anesthesia Assessment Anesthesia Assessment: Discussed sedation and/or anesthesia options, risks, benefits, and alternatives with patient/parents/legal guardian/POA. Questions invited. The patient/parents/legal guardian/POA seems to understand and agrees to proceed with anesthesia plan. Reviewed the physical assessment, medical history, allergy history and patient home medications list prior to surgery/procedure/anesthetic and documented any changes. Performed airway and anesthesia risk assessments. Anesthesia Type Anesthesia Type: MAC History Source History Obtained from:: Patient and Chart Anesthesia Focused Assessment* Temperature: 98.2 F Pulse Rate: 70 Blood Pressure: 149/67 Respiratory Rate: 16 Pulse Ox: 98 Oxygen Delivery Method: Room Air Airway Assessment Mouth opens: >3 cm Mallampati Score: II Teeth Condition: Missing (Patient has several missing teeth. Rest of the teeth are tight.) Neck Range of motion (ROM): Limited ROM (Slight Decrease) Labs Anesthesia Preop lab: CBC WBC, (4.4-11.0) 7.9 K/mm3 04/14/25, 05:40 RBC, (4.2-5.4) 4.85 M/mm3 04/14/25, 05:40 Hgb, (12.0-15.0) 12.8 g/dL 04/14/25, 05:40 Hct, (37-47) 40.0 % 04/14/25, 05:40 Plt Count, (150-450) 343 K/mm3 04/14/25, 05:40 CHEMISTRY Potassium, (3.3-5.1) 4.2 mmol/L 04/14/25, 05:40 Sodium, (133-145) 139 mmol/L 04/14/25, 05:40 Magnesium, (1.6-2.6) 2.1 mg/dL 09/25/24, 05:42 Phosphorus, (2.5-4.9) 3.8 mg/dL 09/25/24, 05:42 BUN, (4-19) 15 mg/dL 04/14/25, 05:40 Creatinine, (0.70-1.20) 0.91 mg/dL 04/14/25, 05:40 Glucose, (70-99) 181 mg/dL H 04/14/25, 05:40 POC Glucose, (74-106) 117 mg/dL H 09/25/24, 05:39 TSH, (0.300-4.200) 1.340 uIU/mL 04/14/25, 05:40 COAG PT, (11.7-14.9) 12.8 SECONDS 05/05/18, 10:35 Pre-Assessment Diagnosis/Proposed Procedure Planned Operative Procedure(s): (L) Injection,Knee, SUPERIOR MEDIAL, SUPERIOR LATERAL, INFERIOR MEDIAL GENCULAR NERVES STEROID INJECTION UNDER FLUOROSCOPY Anesthesia History Anesthesia History - electronic imager: Anesthesia History - electronic imager Hx Hospitalization No 09/02/25 10:26 Any Problems With Anesthesia Yes: PONV 09/02/25 10:26 Cholinesterase deficiency No 09/02/25 10:26 You/Your Family Experience No 09/02/25 10:26 fever (hyperthermia) with Relationship Recent Exposure to Contagious No 06/07/22 09:41 Disease Does patient have nerve Yes: INSTURCTIONS STIMULATOR 09/02/25 10:26 stimulator Patient instructed to have device shut off --Does patient have Pacemaker No 09/07/25 10:39 or ICD? When Was Last Pacemaker Check QUESTION #4 FULL TEXT: You/Your Family Experience fever (hyperthermia) with Anesthesia Last Oral Intake Last Oral intake: Last Oral Intake NPO since 23:00 09/07/25 10:39 Meds taken in AM with sips of Yes 09/07/25 10:39 water? Meds patient instructed to see med list 09/07/25 10:39 take am of surgery Any additional information?: Yes Meds taken in AM with sips of water?: Yes PONV PONV - electronic imager: PONV - electronic imager Female Yes 09/02/25 10:26 HX of Motion Sickness No 09/02/25 10:26 HX of N/V After Surgery Yes 09/02/25 10:26 Non-Smoker Yes 09/02/25 10:26 Duration of Surgery greater No 09/02/25 10:26 than 60 minutes Number of Risk Factors 3 09/02/25 10:26 PONV Score Moderate Risk 09/02/25 10:26 Height & Weight Height & Weight: Anesthesia: Height & Weight Height 5 ft 1 in 09/07/25 10:39 Weight: 83 kg 12/15/25 10:39 Body Mass Index (BMI) 34.5 09/07/25 10:39 Respiratory Assessment Respiratory Assessment - electronic imager: Respiratory Tract Infection Hx - electronic imager Hx Respiratory Tract Infection No 09/02/25 10:26 STOP Sleep Apnea STOP Sleep Apnea - electronic imager: STOP Sleep Apnea - electronic imager Hx Hypertension Yes: CONTROLLED WITH MED 09/02/25 10:26 Hx Sleep Apnea No 09/02/25 10:26 CPAP No 06/07/22 12:58 BIPAP No 11/22/21 14:09 Do you snore loudly (louder No 09/02/25 10:26 than talking or can be heard Do you often feel tired/ No 09/02/25 10:26 fatigued/ sleepy during daytime? Has anyone observed you stop No 09/02/25 10:26 breathing during sleep? STOP Results Negative 09/02/25 10:26 QUESTION #5 FULL TEXT : Do you snore loudly (louder than talking or can be heard through closed doors)? Tobacco Use History Tobacco Use History - electronic imager: Tobacco Use History - electronic imager Tobacco Use Smoking Status Never smoker 09/02/25 10:26 Hx Tobacco Use No 09/02/25 10:26 Years Smoking Packs Smoked per Day Smoking Cessation Date was within the last 15 years Hx Smoking Cessation Date Hx Smoking Cessation Counseling Hematologic Medial History Hematologic Hx - electronic imager: Hematologic Medical Hx - hr consultant Hx of Blood Transfusion No 09/02/25 10:26 Hx of Transfusion in last 3 No 09/02/25 10:26 Months Date of Last Transfusion (if within last 3 months) Ever experience any problems No 09/02/25 10:26 with transfusion(s)? Specify any problems Hx of Preganancy in last 3 N/A 09/02/25 10:26 Months Nurse Filling Out Transfusion NBUCHER 09/02/25 10:26 & Questions: Date: 09/02/25 09/02/25 10:26 Time: 10:30 09/02/25 10:26 Patient unable to answer at this time (ie. confused, unrespo /Reproduction History /Reproductive History - electronic imager: /Reproductive Hx- electronic imager Hx Now No 09/02/25 10:26 Gestational Age (in weeks): EDC: Hx Hx Para Hx Section SAB No 09/02/25 10:26 Does the father of the baby or his family experience fever w Father of the baby Malignant Hypertension history comment Active Medications Active Medications: Current Medications Generic Name Dose Route Start Last Admin Trade Name Josue PRN Reason Stop Dose Admin Lactated Ringer's 1,000 mls @ 15 mls/hr 09/07/25 10:30 09/07/25 10:58 IV 15 mls/hr .Q48H AMALIA Administration PFSH Medical History High cholesterol Coagulation disorder 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 Dehiscence of incision History of revision of total replacement of left knee joint Wears glasses Alcohol use History of steroid therapy Bladder disease Neuropathy Back pain Dietary restriction History of pain when walking Pain Myasthenia gravis Ambulates with cane Rheumatoid arthritis Low iron History of DVT (deep vein thrombosis) Hyperlipemia Difficulty swallowing History of hiatal hernia Gastric reflux Non-smoker Shortness of breath on exertion Chronic cough PONV (postoperative nausea and vomiting) Leg cramps History of edema History of stress test Hypertension Thyroid disease Cataracts, bilateral History of UTI Arthritis Home Medications ?Medication ?Instructions ?Recorded ?Last Taken ?Type folic acid 1 mg tablet 1 mg PO DAILY supplement 10/13/13 06/06/22 History atorvastatin 10 mg tablet 5 mg PO QODAY Cholesterol 09/06/21 06/26/24 18:45 History cholecalciferol (vitamin D3) 50 50 mcg PO DAILY supplement 09/06/21 06/27/24 History mcg (2,000 unit) capsule ascorbic acid (vitamin C) 500 mg 500 mg PO DAILY supplement 02/06/22 06/27/24 History tablet (Vitamin C) hydrochlorothiazide 12.5 mg tablet 12.5 mg PO DAILY Blood pressure 06/07/22 Unknown History metformin 500 mg tablet,extended 1,000 mg PO BID Diabetes 06/27/24 06/27/24 05:30 History release 24 hr polysaccharide iron complex 150 mg 65 mg PO QODAY Supplement 06/27/24 Unknown History iron capsule (Ferrex) losartan 100 mg tablet 100 mg PO DAILY bp 30 days #30 tabs 07/15/24 09/07/25 07:30 Rx potassium chloride 20 mEq 20 meq PO DAILYCM supplement 30 07/15/24 Unknown Rx tablet,extended release(part/cryst) days #30 tabs dapagliflozin propanediol 10 mg 10 mg PO QDAY 02/03/25 09/03/25 History tablet (Farxiga) levothyroxine 100 mcg tablet 100 mcg PO QDAY 02/03/25 09/07/25 07:30 History pregabalin 100 mg capsule 100 mg PO TID 02/03/25 09/07/25 07:30 History doxycycline monohydrate 100 mg 100 mg PO BID #14 CAPSULES 02/18/25 Unknown Rx capsule albuterol sulfate 90 mcg/actuation 2 puff inhalation Q4H PRN PRN 04/14/25 Unknown Rx aerosol inhaler (Ventolin HFA) Wheezing ##1 Gemtesa 75 mg tablet (vibegron) 75 mg PO QDAY #90 tabs 04/24/25 Unknown Rx furosemide 20 mg tablet (Lasix) 20 mg PO QAM #30 tabs 06/11/25 Unknown Rx pyridostigmine bromide 60 mg tablet 60 mg PO BID #180 tabs 06/11/25 Unknown Rx Allergy/AdvReac Type Severity Reaction Status Date / Time latex Allergy Severe Other Verified 09/07/25 10:36 shellfish derived Allergy Severe PASSED Verified 09/07/25 10:36 OUT, DIARRHEA adhesive Allergy Mild Rash Verified 09/07/25 10:36 levofloxacin AdvReac Intermediate WEAK, Verified 09/07/25 10:36 NAUSEA povidone AdvReac Mild Hives Verified 09/07/25 10:36 Surgical History History of total right knee replacement (TKR) H/O hernia repair History of right oophorectomy Status post total left knee replacement History of bilateral cataract extraction History of colonoscopy S/P insertion of spinal cord stimulator History of partial thyroidectomy History of appendectomy History of left knee surgery History of hysterectomy History of cholecystectomy Social History household members: spouse housing: house Smoking Status: Never smoker Electronic Cigarette Use: not used second hand exposure: No alcohol intake: current alcohol intake frequency: a few times a month Alcohol type: wine substance use type: does not use Review of Systems (Anesthesia) ROS Narrative System reviewed and no additional complaints, except as documented.
[2025-09-07] MEDS: Lidocaine 1% (5 ml sdv) 5 ML Vial (11:28)
--- NOTE | 2025-09-07 11:36 | OP.PCM_ITS ---
Operative Report (Standard) Operative Information Date of Procedure: 09/07/25 Pre-Operative Diagnosis: Osteoarthritis of the left knee, chronic postoperative knee pain Post-Operative Diagnosis: Osteoarthritis of the left knee, chronic postoperative knee pain Surgery/Procedure Performed: Left knee superior medial, superior lateral, inferior medial, genicular nerve steroid injection under fluoroscopic guidance accounts payable associate: No Type of Anesthesia: Local MAC RN Documented Start/Stop Times: Operation Date: 09/07/25 11:50 Case Time Into Pre-Op 09/07/25 10:23 Anesthesia Start 09/07/25 11:21 Into Room 09/07/25 11:21 Procedure Start 09/07/25 11:27 Procedure End 09/07/25 11:29 Anesthesia End 09/07/25 11:33 Out of Room 09/07/25 11:33 Into Recovery 09/07/25 11:35 Procedure Start Time: 11:37 Procedure Stop Time: 11:38 Select all DRAINS/GRAFTS/IMPLANTS that apply: None Estimated Blood Loss: 0 Specimen collected: No Description of surgery: ANESTHESIA: MAC. BLOOD LOSS: Minimal. COMPLICATIONS: None. DESCRIPTION OF PROCEDURE: History and physical of today was reviewed. Risks and benefits of the procedure were explained. The patient understood and agreed to proceed. Informed consent was obtained. IV inserted per routine protocol. The patient was taken to the operating room and placed in the supine position. The left knee was prepped and draped in a sterile fashion using iodine x3. Under fluoroscopy guidance on AP view, the left knee was visualized. The skin and subcutaneous tissue was anesthetized with approximately 5 mL of 1% lidocaine using a 25-gauge regular needle at the vicinity of the superomedial, superolateral, and inferomedial genicular nerves. Under direct visualization of fluoroscopy on AP view as well as lateral view, starting on the left superomedial, ending on the left inferomedial, passing through the left superolateral genicular nerves, the needle was passed through the skin. The tip of the needle was maneuvered and directed towards the diaphyseal junction of each corresponding nerve. Once tip of the needle was in the vicinity of the diaphysis and in contact with the bone, after confirmation on AP as well as lateral view and repeated negative aspiration for blood, a total of 12 mL of preservative-free 0.25% Marcaine with 80 mg of Depo-Medrol was injected in divided doses between those three levels. The needles were then removed intact. The patient experienced no sign or symptoms of intravascular injection. The patient experienced no paresthesia. The procedure was completed without any apparent difficulty or any complications. The patient appeared to tolerate it well. ASSESSMENT AND PLAN: This is a 74-year-old female with osteoarthritis of the left knee, chronic postoperative knee pain, status post left knee superior medial, superior lateral, inferior medial, genicular nerve steroid injection under fluoroscopic guidance, patient will continue her current medications, patient will follow-up in approximately 2 weeks for reevaluation. Surgical Findings: 0 Complications Complications: No Admit VTE Documentation VTE Present on Admission: No VTE Mechan Device Prophylaxis: None VTE Pharm Prophylaxis ordered?: No
--- NOTE | 2025-09-07 11:37 | POSTOPAN2_ITS ---
Anesthesia Postop Eval I Sum Postop Eval Completion status Anesthesia document: Postop Eval 1 completed: Yes Anesthesia Postop Eval I Summary Anesthesia Postop Eval I Summary: Anesthesia Postop Eval I: Assessment Summary Airway patent Yes 09/07/25 11:37 TELECOMMUNICATIONS FIELD TECHNICIAN.TNES Spontaneous unlabored Yes 09/07/25 11:37 TELECOMMUNICATIONS FIELD TECHNICIAN.TNES respirations Mental status Awake,Calm 09/07/25 11:37 TELECOMMUNICATIONS FIELD TECHNICIAN.TNES nausea No 09/07/25 11:37 TELECOMMUNICATIONS FIELD TECHNICIAN.TNES Vomiting No 09/07/25 11:37 TELECOMMUNICATIONS FIELD TECHNICIAN.TNES Anesthesia Postop Eval I: Fluid Summary Crystalloid volume administer 200 09/07/25 11:37 TELECOMMUNICATIONS FIELD TECHNICIAN.TNES (ml) Colloids volume administered ( ml) Blood Product volume administered (ml) Total IV fluid infused 200 09/07/25 11:37 TELECOMMUNICATIONS FIELD TECHNICIAN.TNES Anesthesia Postop Eval I: Summary Notes Anesthesia Complication No 09/07/25 11:37 TELECOMMUNICATIONS FIELD TECHNICIAN.TNES Anesthesia Complication Comment: Post-operative progress note Anesthesia: Postop Eval II Evaluation Mental status: Awake and Calm Pain Level: 0 nausea: No Vomiting: No Complications Anesthesia Complication: No
--- NOTE | 2025-09-07 11:37 | PCM.POST.ANE ---
Anesthesia: Postop Eval I Current Vital Signs Temperature: 98 F Pulse Rate: 62 Blood Pressure: 132/54 Respiratory Rate: 16 Pulse Ox: 99 Oxygen Delivery Method: Room Air Assessment Airway patent: Yes Spontaneous unlabored respirations: Yes Mental status: Awake and Calm nausea: No Vomiting: No Anesthesia Complication: No Fluid Hydration Crystalloid volume administer (ml): 200 Total IV fluid infused: 200 Progress Note Anesthesia document: Postop Eval 1 completed: Yes
--- NOTE | 2025-09-07 11:37 | PCM.POSTANE2 ---
Anesthesia Postop Eval I Sum Postop Eval Completion status Anesthesia document: Postop Eval 1 completed: Yes Anesthesia Postop Eval I Summary Anesthesia Postop Eval I Summary: Anesthesia Postop Eval I: Assessment Summary Airway patent Yes 09/07/25 11:37 ASSEMBLER GARMENT FORM.TNES Spontaneous unlabored Yes 09/07/25 11:37 ASSEMBLER GARMENT FORM.TNES respirations Mental status Awake,Calm 09/07/25 11:37 ASSEMBLER GARMENT FORM.TNES nausea No 09/07/25 11:37 ASSEMBLER GARMENT FORM.TNES Vomiting No 09/07/25 11:37 ASSEMBLER GARMENT FORM.TNES Anesthesia Postop Eval I: Fluid Summary Crystalloid volume administer 200 09/07/25 11:37 ASSEMBLER GARMENT FORM.TNES (ml) Colloids volume administered ( ml) Blood Product volume administered (ml) Total IV fluid infused 200 09/07/25 11:37 ASSEMBLER GARMENT FORM.TNES Anesthesia Postop Eval I: Summary Notes Anesthesia Complication No 09/07/25 11:37 ASSEMBLER GARMENT FORM.TNES Anesthesia Complication Comment: Post-operative progress note Anesthesia: Postop Eval II Evaluation Mental status: Awake and Calm Pain Level: 0 nausea: No Vomiting: No Complications Anesthesia Complication: No
== END 2025-09-07 12:52 | disposition home or self-care (01) ==
LOC: SDC 10:21 → AC 10:21
PROVIDERS: PCP Internal Medicine; Referring Provider Anesthesiology Pain Medicine; Visit Provider Anesthesiology Pain Medicine
PROC: 3E0U3GC Introduction of Other Therapeutic Substance into Joints, Percutaneous Approach (ICD-10-PCS; CPT 20610; principal; 2025-09-07 11:45)
DX: M17.12 Unilateral primary osteoarthritis, left knee (principal); Z79.899 Other long term (current) drug therapy
CPT/HCPCS: 64454; 01992; 64483; 73560; 82962